=== PATIENT | female | born 1935 | race Caucasian/White ===

== ENCOUNTER 2018-12-29 15:16 | Inpatient (IN) ==
[2018-12-29] MEDS ORDERED: SODIUM CHLORIDE 0.9% 1000ML 1,000 ML IV STA (16:01)
[2018-12-29 16:09] LABS: Basophils # (auto) 0.02 K/uL (0-0.2); Basophils % (auto) 0.3 %; Eosinophils # (auto) 0.08 K/uL (0-0.5); Eosinophils % (auto) 1.1 %; Hematocrit (blood only) 35.5 % (37-47); Hemoglobin 11.9 g/dL (12.0-16.0); Immature Granulocytes # (auto) 0.02 K/uL (0.00-0.02); Immature Granulocytes % (auto) 0.3 %; Lymphocytes # (auto) 2.16 K/uL (1.2-3.4); Lymphocytes % (auto) 30.7 %; Mean Corpuscular Hemoglobin 30.2 pg (25-34); Mean Corpuscular Hgb Conc 33.5 g/dL (32-36); Mean Corpuscular Volume 90.1 fL (80-100); Monocytes # (auto) 0.69 K/uL (0.11-0.59); Monocytes % (auto) 9.8 %; Neutrophils # (auto) 4.07 K/uL (1.4-6.5); Neutrophils % (auto) 57.8 %; Platelet Count 303 K/uL (130-400); RDW Coefficient of Variation 13.3 % (11.5-14.5); RDW Standard Deviation 44.2 fL (36.4-46.3); Red Blood Count 3.94 M/uL (4.2-5.4); White Blood Count 7.04 K/uL (4.8-10.8)
[2018-12-29 16:20] LABS: Partial Thromboplastin Ratio 0.9; Partial Thromboplastin Time 25.1 Seconds (21.0-31.0); Prothrombin Time 10.3 Seconds (9.0-12.0)
[2018-12-29 16:28] LABS: Alanine Aminotransferase 33 U/L (12-78); Albumin Level 3.6 gm/dl (3.4-5.0); Aspartate Aminotransferase 19 U/L (15-37); Blood Urea Nitrogen 33 mg/dl (7-18); Calcium 9.3 mg/dl (8.5-10.1); Carbon Dioxide 22 mmol/L (21-32); Chloride 107 mmol/L (98-107); Creatinine Clr Calc Pharmacy 29.8 ml/min; Est GFR (African American) 43.2; Est GFR (Non-African American) 37.3; Glucose 134 mg/dl (70-99); Magnesium 1.6 mg/dl (1.8-2.4); Potassium 4.5 mmol/L (3.5-5.1); Sodium 138 mmol/L (136-145)
[2018-12-29 16:38] LABS: Albumin Globulin Ratio 0.8 (0.9-2); Alkaline Phosphatase 73 U/L (45-117); Bilirubin,Total 0.4 mg/dl (0.2-1); Globulin 4.3 gm/dl (2.5-4.0); Total Protein 7.9 gm/dl (6.4-8.2); Troponin I < 0.015 ng/ml (0-0.045)
[2018-12-29] MEDS ORDERED: MAGNESIUM SULFATE / D5W 1 GM/100 ML BAG IV ONE (18:00)
[2018-12-29] MEDS ORDERED: HEPARIN SOD (PORCINE) 1000 UNIT/ML 10 ML VIAL ONE (18:58)
[2018-12-29] MEDS: HEPARIN SODIUM/DEXTROSE 25,000 UNITS/500 ML BAG IV SCH (19:14)
[2018-12-29] MEDS ORDERED: METOPROLOL TARTRATE 1 MG/ML VIAL IV STA (19:47)
--- NOTE | 2018-12-29 20:40 | History & Physical Report ---
Date of Service December 29, 2018 Assessment & Plan (1) Atrial fibrillation: Patient with history of atrial fibrillation 8 years ago Has been on Toprol-XL and is managed by the [facility] cardiology office in [facility] Presented with dizziness to weekend clinic and referred to the ED for evaluation treatment EKG with atrial fibrillation with rapid ventricular response Patient treated with fluid bolus and 5 mg IV metoprolol Heparin drip started Cardiology consulted Dr. Jensen contacted and will see the patient in the morning for further work-up Echocardiogram is ordered for tomorrow morning (routine) Troponin is negative TSH is 3.1 (2) Hypertension: Patient is on multiple agents at home including Toprol-XL and lisinopril Will continue outpatient medications Lopressor IV as needed Echocardiogram in the morning (3) Diabetes mellitus type 2 in obese: Patient treated as an outpatient with metformin and glipizide We will continue these oral medications at this time BSG's ACHS Sliding scale insulin with NovoLog (4) Hyperlipidemia: Continue atorvastatin (5) DVT prophylaxis: Heparin drip Ambulate as tolerated AD[facility]ANA [facility]ctor [facility] Please refer to Dr. Loja's addendum for further recommendations History of Present Illness Attending: Dr. Loja This is an 83-year-old female with past medical history including hypertension, hyperlipidemia, atrial fibrillation, diabetes mellitus. The patient awoke this morning and had some dizziness. She reports that this is been intermittent for the last 2 to 3 days. Her son took her to see Dr. Yeboah in the outpatient clinic where she was found on EKG to be in atrial fibrillation with rapid ventricular rate in the 120s to 140s. The patient was referred to the emergency department by Dr. Yeboah and upon arrival was found to be in atrial fibrillation with a rate in the 120s. The patient's magnesium was 1.6 and this was repleted with 1 g of magnesium sulfate. The patient was given a fluid bolus and started on a heparin drip. At the time of my evaluation, the patient was in atrial fibrillation on telemetry with a rate in the low 100s. She was given 5 mg of metoprolol tartrate IV and is currently with a blood pressure of 141/58 with a heart rate of 81. The patient follows with [facility] cardiology with Cameron Becerra PA-C. Dr. Jensen was contacted by phone from the emergency room physician and will see the patient in the morning. The patient denies any awareness of tachyarrhythmia or arrhythmia. Aside from dizziness she has no other symptoms. She denies any chest pain or tightness. She has no back pain. She has no acute change in vision. She has no headache. She has no focal deficits on examination. She denies any evidence of TIA or stroke and further denies history of same. The patient has no recent illness and states that she has been in her usual health. She has no other acute complaints. Primary Care Provider: Jermaine Jermaine Allergies Allergy/AdvReac Type Severity Reaction Status Date / Time tramadol Allergy Severe UNCLEAR Unverified 12/29/18 17:30 Aminoglycosides Allergy Mild Verified 01/08/11 21:27 bacitracin Allergy Mild Verified 01/08/11 21:27 neomycin Allergy Mild Verified 01/08/11 21:27 polymyxin B Allergy Mild Verified 01/08/11 21:27 Sulfa (Sulfonamide AdvReac Mild NAUSEA, Verified 01/08/11 21:27 Antibiotics) VOMITING, BAD HEADACHE Home Medications Home Medications Medication Instructions Recorded Confirmed Type aspirin [Aspir-81] 81 mg PO DAILY 12/29/18 12/29/18 History atorvastatin [Lipitor] 20 mg PO PM 12/29/18 12/29/18 History cholecalciferol (vitamin D3) 1,000 unit PO DAILY 12/29/18 12/29/18 History [Vitamin D3] cyanocobalamin (vitamin B-12) 1,000 mcg PO DAILY 12/29/18 12/29/18 History [Vitamin B-12] glipizide [Glucotrol XL] 2.5 mg PO DAILY 12/29/18 12/29/18 History iron,carbonyl-vitamin C [Vitron-C] 1 tab PO DAILY 12/29/18 12/29/18 History lisinopril [Prinivil] 10 mg PO DAILY 12/29/18 12/29/18 History lorazepam [Ativan] 0.5 mg PO HS 12/29/18 12/29/18 History metformin [Glucophage] 500 mg PO BID 12/29/18 12/29/18 History metoprolol succinate [Toprol XL] 100 mg PO DAILY 12/29/18 12/29/18 History polyethylene glycol 3350 [Miralax] 17 g PO DAILY PRN 12/29/18 12/29/18 History triamcinolone acetonide [Triderm] 1 applic TOPICAL BID 12/29/18 12/29/18 History Past Med/Surg History Medical History Atrial fibrillation Diabetes mellitus type 2 in obese History of breast cancer Hyperlipidemia Hypertension Surgical History Bilateral cataracts Family History Other No significant family history Social History Preferred Language: Swedish Communication Ability: Effective Completions Engineer Required: No Beliefs That Will Affect Care: None Current Living Situation: Alone current occupational status: retired Feels Safe at Home: Yes Safety Concerns: Feels Safe At This Time Smoking Status: Never smoker Hx Alcohol Use: Yes Hx Substance Use: No Review of Systems Review of Systems: All systems reviewed & are unremarkable except as noted in HPI & below Physical Exam Physical Exam: GENERAL : No acute distress EYES: No icterus, gaze conjugate NOSE: No evidence of epistaxis MOUTH: No lesions or candidiasis. Tongue is midline. Upper dentures in place. Bridge on the lowers. NECK: Supple. No appreciation carotid bruits LUNGS: CTA B/L, no wheezes, rales or rhonchi. HEART: Irregular, irregular. Rate in the low 100s ABDOMEN: Soft, NT, ND, BS Present EXTREMITIES: No LE edema, pedal pulses intact and equal bilaterally NEURO: A&OX3. No facial droop. Tongue midline. No pronator drift. Toes are downgoing bilaterally. No appreciation of any focal deficits. Results & Data Vital Signs (Past 12 Hours) Vital Signs Temp Pulse Resp BP Pulse Ox 12/29/18 20:01 81 18 141/58 H 98 12/29/18 19:51 90 169/66 H 12/29/18 19:44 92 H 30 H 169/66 H 95 12/29/18 19:31 98 H 22 183/81 H 98 12/29/18 19:30 94 H 18 167/74 H 98 12/29/18 18:33 95 H 14 166/89 H 98 12/29/18 18:01 80 20 167/90 H 98 12/29/18 17:31 89 20 179/72 H 97 12/29/18 17:01 86 21 157/114 H 98 12/29/18 16:31 83 19 142/74 H 96 12/29/18 16:01 93 H 20 138/85 98 12/29/18 15:55 95 H 19 134/84 98 12/29/18 15:47 98 12/29/18 15:28 36.7 C 112 H 20 132/77 97 Laboratory Results 12/29/18 16:01 12/29/18 16:01 Magnesium: 1.6 ECG Indication: tachycardia and other (Dizziness) Rhythm: atrial fibrillation Code Status & VTE Plan Code Status Full resuscitation VTE Prophylaxis Plan VTE Prophylaxis will be ordered: Yes Reason for no VTE mechanical prophylaxis: Treatment not indicated Supervising Physician Co-Signing Physician Notes HISTORY: Record reviewed. Patient interviewed and examined. Care coordinated with Heriberto Jordan PA-C. Please refer to his documentation for detailed history. Briefly, 83-year-old female with history of paroxysmal atrial fibrillation, hypertension, diabetes, and other problems. Seen in clinic today for evaluation of dizziness and found to be in atrial fibrillation with rapid ventricular response. Referred to the ED for further evaluation and management. No associated chest pain or shortness of breath. EXAM: General- no distress Lungs- clear to auscultation; no respiratory distress Cardiovascular- irregular; no murmur; no gallop; no JVD; no pretibial edema Abdomen- + bowel sounds, soft, nontender Extremities- no cyanosis; no calf tenderness Neuro- alert, oriented Skin- warm & dry DATA: Hemoglobin 11.9, white count 7040, platelet count 303,000. PT 10.3, INR 1.0. PTT 25. Sodium 138, potassium 4.5, chloride 107, CO2 22, BUN 33, creatinine 1.31, glucose 134. Magnesium 1.6. Other lab studies as noted. EKG performed at 1547 reviewed and demonstrated atrial fibrillation at 90/minute, baseline artifact, incomplete left bundle branch block. ASSESSMENT AND PLAN: Recurrent atrial fibrillation with rapid ventricular response. Rate controlled with metoprolol. GREGORIA(2)DS(2)-VASc = 5. Initiate anticoagulation with IV heparin pending decision re: long-term anticoagulation. Correct hypomagnesemia. Check echo. Consult Cardiology. Please refer to JAMA Jordan's documentation for discussion of other issues.
[2018-12-29] MEDS ORDERED: GLUCOSE 10 TABS/TUBE PO PRN (20:56)
[2018-12-29] MEDS ORDERED: ACETAMINOPHEN 325 MG TAB PO PRN (20:56)
[2018-12-29] MEDS ORDERED: MAGNESIUM HYDROXIDE SUSP 30 ML UDC PO PRN (20:56)
[2018-12-29] MEDS ORDERED: GLUCOSE 40% GEL 15 GM TUBE PO PRN (20:56)
[2018-12-29] MEDS ORDERED: DEXTROSE 50% 50 ML SYRINGE IV PRN (20:56)
[2018-12-29] MEDS ORDERED: ALUMINUM/MAGNESIUM SUSP 30 ML UDC PO PRN (20:56)
[2018-12-29] MEDS ORDERED: CARBOHYDRATES FOR HYPOGLYCEMIA PO PRN (20:56)
[2018-12-29] MEDS ORDERED: ONDANSETRON INJ 2 MG/ML 2 ML VIAL IV PRN (20:56)
[2018-12-29] MEDS ORDERED: GLUCAGON FOR INJ 1 MG VIAL SQ PRN (20:56)
[2018-12-29] MEDS ORDERED: METOPROLOL TARTRATE 1 MG/ML VIAL IV PRN (20:56)
[2018-12-29] MEDS: INSULIN ASPART 100 UNITS/ML 3 ML PEN SC SCH (21:59)
[2018-12-29] MEDS: SODIUM CHLORIDE 0.9% 1000ML 1,000 ML IV SCH (21:59)
[2018-12-29] MEDS: LORazepam 0.5 MG TAB PO SCH (22:21)
[2018-12-29] MEDS: ATORVASTATIN 20 MG TAB PO SCH (22:22)
--- NOTE | 2018-12-29 23:41 | Emergency Department Note ---
Entered by Carlos Alberto Vega acting as a scribe for ED Provider Note CHIEF COMPLAINT: Palpitations HISTORY OF PRESENT ILLNESS: The patient is a 83 year old female who presents to the Emergency Room with complaints of chest palpitations. The patient reports feeling dizzy for the last two days and was seen at [facility]. The patient was referred from [facility] due to a new onset atrial flutter that was read on a new EKG taken earlier in the day prior to arrival. The patient notes that upon arrival she felt better. The patient notes that she is not currently on any blood thinners. The patient reports that an episode of a-fib happened 8 years ago and was medication related. The patient states that she has not eaten since this morning. The patient reports that she receives knee injections. Pt denies LOC, headache, fevers, chills, diaphoresis, visual changes, neck pain, chest pain, breathing difficulties, nausea, vomiting, abdominal pain, back pain, melena, hematochezia, urinary symptoms, numbness, weakness, lymphadenopathy, rash, or other complaints. REVIEW OF SYSTEMS: See HPI for pertinent positives and negatives. A total of ten systems were reviewed and were otherwise negative. PMHx/PSHx: A-Fib SOCIAL HISTORY: Patient lives at home. PHYSICAL EXAM: GENERAL: Awake, alert, well-appearing, in no distress HENT: Normocephalic, atraumatic. Oropharynx unremarkable. EYES: PERRL. Normal conjunctiva. Sclera non-icteric. NECK: Inspection normal. Non-tender. Supple. No nuchal rigidity. FROM. No masses. RESPIRATORY: Clear to auscultation. No wheezes. No rales. Normal respiratory effort. CARDIAC: Normal rate. Irregular rhythm. No murmurs. No rubs. Extremities warm and well perfused. Pulses equal. No JVD. GI: Soft, non-distended. No tenderness to palpation. No rebound or guarding. No masses. RECTAL: Deferred. MUSCULOSKELETAL: Atraumatic. Chest examination reveals no tenderness. The back is symmetrical on inspection without obvious abnormality. There is no CVA tenderness to palpation. No joint edema. LOWER EXTREMITIES: Calves are equal size bilaterally and non-tender. No edema. No discoloration. NEURO: Normal sensorium. No sensory or motor deficits noted. SKIN: No rash or jaundice noted. EMERGENCY DEPARTMENT COURSE: 1601: Past medical records reviewed. The patient was evaluated in room A03, and a complete history and physical examination were performed. 181: The patient was reevaluated and feels well. Dr. Jensen was consulted and stated that given the patient's age and symptoms she will be admitted. 183: Discussed the patient's case with LINETTE Mitchell. The patient will be admitted under Dr. Loja [facility] [place], for further management. MEDICAL DECISION MAKING: A3 Prior records/ancillary studies reviewed. Patient had an A. fib/paroxysmal SVT episode and was seen by cardiology in 2007. Triage Nursing notes reviewed and agree them. Additional history obtained from the family. The patient's history was concerning for palpitations. Differential diagnosis: Etiologies such as electrolyte abnormality, cardiac dysrhythmia, thyroid dysfunction, pulmonary embolism, infection, gastrointestinal, as well as others were entertained. Physical examination: Benign as above. ER treatment provided: Cardiac monitoring. Heparin drip On reassessment the patient felt well. Diagnostic interpretation by me: The electrocardiogram was consistent with A. fib. No ischemia. A. fib did replace sinus rhythm. The labs revealed an unremarkable CBC and chemistry panel except for mild hypomagnesemia. The patient's troponin is within normal limits. Coags normal. Imaging studies: Chest x-ray as below. Consultation: A consultation was placed with the [facility] fire manager on-call, Dr. Lg Umana. The case was discussed and diagnostics were reviewed. He recommended the patient be admitted to the hospital and started on IV heparin for cardiology consultation. I discussed this with the patient and she was in agreement. Family was in agreement. A consultation was placed with the hospitalist. The case was discussed and diagnostics were reviewed. The patient was evaluated in the ER for further treatment. IMPRESSION: Atrial fibrillation, palpitations, dizziness. PLAN: Admitted The scribe's documentation has been prepared under my direction and personally reviewed by me in its entirety. I confirm that the note above accurately reflects all work, treatment, procedures, and medical decision making performed by me. Impression & Plan Atrial fibrillation Past Med/Surg History Medical History Atrial fibrillation (Acute) Diabetes mellitus type 2 in obese History of breast cancer Hyperlipidemia Hypertension Surgical History Bilateral cataracts Family History Other No significant family history Social History Preferred Language: Armenian Communication Ability: Effective Culinary Chef Required: No Beliefs That Will Affect Care: None Current Living Situation: Alone current occupational status: retired Feels Safe at Home: Yes Safety Concerns: Feels Safe At This Time Smoking Status: Never smoker Hx Alcohol Use: Yes Hx Substance Use: No Results & Data Vital Signs Vital Signs - 24 hr 12/29/18 15:28 12/29/18 15:47 12/29/18 15:55 Temperature 36.7 C Temperature Source Oral Sepsis Recent Fever Within 48 Hours No Sepsis Action Taken by Nursing No Action Required Pulse Rate 112 H 95 H Pulse Rate from SpO2 Sensor 94 H Respiratory Rate 20 19 Respiratory Effort / Characteristics Non-Labored Respiratory Depth Normal Blood Pressure 132/77 134/84 Blood Pressure Mean 95 100 Blood Pressure Position Sitting Pulse Oximetry 97 98 98 Oxygen Delivery Method Room Air Room Air Room Air 12/29/18 16:01 12/29/18 16:31 12/29/18 17:01 Temperature Temperature Source Sepsis Recent Fever Within 48 Hours Sepsis Action Taken by Nursing Pulse Rate 93 H 83 86 Pulse Rate from SpO2 Sensor 91 H 90 90 Respiratory Rate 20 19 21 Respiratory Effort / Characteristics Non-Labored Respiratory Depth Normal Blood Pressure 138/85 142/74 H 157/114 H Blood Pressure Mean 102 96 128 Blood Pressure Position Pulse Oximetry 98 96 98 Oxygen Delivery Method Room Air Room Air Room Air 12/29/18 17:31 12/29/18 18:01 12/29/18 18:33 Temperature Temperature Source Sepsis Recent Fever Within 48 Hours Sepsis Action Taken by Nursing Pulse Rate 89 80 95 H Pulse Rate from SpO2 Sensor 82 82 97 H Respiratory Rate 20 20 14 Respiratory Effort / Characteristics Respiratory Depth Blood Pressure 179/72 H 167/90 H 166/89 H Blood Pressure Mean 107 115 114 Blood Pressure Position Pulse Oximetry 97 98 98 Oxygen Delivery Method Room Air Room Air Room Air 12/29/18 19:30 12/29/18 19:31 12/29/18 19:44 Temperature Temperature Source Sepsis Recent Fever Within 48 Hours Sepsis Action Taken by Nursing Pulse Rate 94 H 98 H 92 H Pulse Rate from SpO2 Sensor 100 H 98 H 98 H Respiratory Rate 18 22 30 H Respiratory Effort / Characteristics Respiratory Depth Blood Pressure 167/74 H 183/81 H 169/66 H Blood Pressure Mean 105 115 100 Blood Pressure Position Pulse Oximetry 98 98 95 Oxygen Delivery Method 12/29/18 19:51 Temperature Temperature Source Sepsis Recent Fever Within 48 Hours Sepsis Action Taken by Nursing Pulse Rate 90 Pulse Rate from SpO2 Sensor Respiratory Rate Respiratory Effort / Characteristics Respiratory Depth Blood Pressure 169/66 H Blood Pressure Mean Blood Pressure Position Pulse Oximetry Oxygen Delivery Method Home Medications Current Medication List: was personally reviewed by me Laboratory Data Attestation: I reviewed the patient's lab results. Result diagrams: 12/29/18 16:01 12/29/18 16:01 Lab Results 12/29/18 12/29/18 12/29/18 Range/Units 16:01 16:01 16:01 WBC 7.04 (4.8-10.8) K/uL RBC 3.94 L (4.2-5.4) M/uL Hgb 11.9 L (12.0-16.0) g/dL Hct 35.5 L (37-47) % MCV 90.1 (80-100) fL MCH 30.2 (25-34) pg MCHC 33.5 (32-36) g/dL RDW Std Deviation 44.2 (36.4-46.3) fL RDW Coeff of Jareth 13.3 (11.5-14.5) % Plt Count 303 (130-400) K/uL MPV 9.0 (7.4-10.4) fL Immature Gran % (Auto) 0.3 % Neut % (Auto) 57.8 % Lymph % (Auto) 30.7 % Hettinger % (Auto) 9.8 % Eos % (Auto) 1.1 % Baso % (Auto) 0.3 % Immature Gran # (Auto) 0.02 (0.00-0.02) K/uL Neut # (Auto) 4.07 (1.4-6.5) K/uL Lymph # (Auto) 2.16 (1.2-3.4) K/uL Hettinger # (Auto) 0.69 H (0.11-0.59) K/uL Eos # (Auto) 0.08 (0-0.5) K/uL Baso # (Auto) 0.02 (0-0.2) K/uL PT 10.3 (9.0-12.0) Seconds INR 1.0 (0.9-1.1) APTT 25.1 (21.0-31.0) Seconds PTT Ratio 0.9 Sodium 138 (136-145) mmol/L Potassium 4.5 (3.5-5.1) mmol/L Chloride 107 (98-107) mmol/L Carbon Dioxide 22 (21-32) mmol/L Anion Gap 9.0 (3-11) BUN 33 H (7-18) mg/dl Creatinine 1.31 H (0.6-1.2) mg/dl Est Cr Clr Drug Dosing 29.8 ml/min Est GFR ( Amer) 43.2 Est GFR (Non-Af Amer) 37.3 BUN/Creatinine Ratio 25.0 H (10-20) Glucose 134 H (70-99) mg/dl Calcium 9.3 (8.5-10.1) mg/dl Magnesium 1.6 L (1.8-2.4) mg/dl Total Bilirubin 0.4 (0.2-1) mg/dl AST 19 (15-37) U/L ALT 33 (12-78) U/L Alkaline Phosphatase 73 (45-117) U/L Troponin I < 0.015 (0-0.045) ng/ml Total Protein 7.9 (6.4-8.2) gm/dl Albumin 3.6 (3.4-5.0) gm/dl Globulin 4.3 H (2.5-4.0) gm/dl Albumin/Globulin Ratio 0.8 L (0.9-2) TSH 3.100 (0.300-4.500) uIu/ml Administered Medications Atorvastatin Calcium (Lipitor) 20 mg PO PM [facility] Stop: 01/28/19 20:59 Last Admin: 12/29/18 22:22 Dose: 20 mg Documented by: [id number] Heparin Sodium/Dextrose (Heparin Sodium/Dextrose) 25,000 units in 500 mls @ 21 mls/hr IV .[id number] [facility]; Protocol Stop: 01/28/19 18:14 Last Admin: 12/29/18 19:14 Dose: 1,050 units/hr, 21 mls/hr Documented by: [id number] Cosigned by: [id number] Sodium Chloride (Nss 1000ml) 1,000 mls @ 80 mls/hr IV .[id number] [facility] Stop: 01/28/19 20:55 Last Admin: 12/29/18 21:59 Dose: 80 mls/hr Documented by: [id number] Insulin Aspart (Novolog Flexpen) 0 units SC ACHS [facility] Stop: 01/28/19 20:59 Last Admin: 12/29/18 21:59 Dose: Not Given Documented by: [id number] Cosigned by: [id number] Lorazepam (Ativan) 0.5 mg PO HS [facility] Stop: 01/28/19 20:59 Last Admin: 12/29/18 22:21 Dose: 0.5 mg Documented by: [id number] Discontinued Medications Heparin Sodium (Porcine) (Heparin Iv Bolus) Confirm Administered Dose 10,000 units .ROUTE .STK-MED ONE Stop: 12/29/18 18:59 Last Admin: 12/29/18 19:13 Dose: 5,000 units Documented by: [id number] Cosigned by: [id number] Heparin Sodium/Dextrose () 1 ea N/A NOW ; Protocol Stop: 12/29/18 18:15 Last Admin: 12/29/18 19:14 Dose: Not Given Documented by: [id number] Sodium Chloride (Nss 1000ml) 1,000 mls @ 125 mls/hr IV .Q8H [facility] Stop: 12/30/18 00:00 Last Admin: 12/29/18 16:50 Dose: 125 mls/hr Documented by: [id number] Magnesium Sulfate/Dextrose (Magnesium Sulfate / D5w) 1 gm in 100 mls @ 100 mls/hr IV ONE ONE Stop: 12/29/18 18:59 Last Infusion: 12/29/18 21:15 Dose: 0 mls/hr Documented by: [id number] Admin: 12/29/18 19:04 Dose: 100 mls/hr Documented by: [id number] Metoprolol Tartrate (Lopressor) 5 mg IV NOW Stop: 12/29/18 19:48 Last Admin: 12/29/18 19:51 Dose: 5 mg Documented by: [id number] ECG Data Indication: other (atrial fibrilation ) Rate (beats per minute): 90 Rhythm: atrial fibrillation Findings: + other (normal QRS); no PVC, no ST depression and no ST elevation Comparison ECG Date: from (08/18/10) Change: the following changes noted (A fibrillation replaced sinus rhythm ) Blood Pressure Blood Pressure Findings: Elevated blood pressure Blood Pressure Disposition: further management by hospitalist Discharge Plan Visit Data *Final* Discharge Date/Time: 12/29/18 20:26 Chief Complaint: Arrhythmia/Palpitations Stated Complaint: PALPITATIONS ED Provider: Morris Benito Discharge Problem: Atrial fibrillation Patient Disposition: Admitted As Inpatient Discharge Instructions Interventions: ED Discharge Assessment Last Done: 12/29/18 20:26 The scribe's documentation has been prepared under my direction and personally reviewed by me in its entirety. I confirm that the note above accurately reflects all work, treatment, procedures, and medical decision making performed by me.
[2018-12-30] MEDS: ZOLPIDEM TARTRATE 5 MG TAB PO SCH (00:06)
[2018-12-30 01:36] LABS: Partial Thromboplastin Ratio 2.2
[2018-12-30 01:38] LABS: Partial Thromboplastin Time 60.4 Seconds (21.0-31.0)
[2018-12-30] MEDS: glipiZIDE ER 2.5 MG TABCR PO SCH (07:11)
[2018-12-30 07:26] LABS: Basophils # (auto) 0.02 K/uL (0-0.2); Basophils % (auto) 0.4 %; Eosinophils # (auto) 0.19 K/uL (0-0.5); Eosinophils % (auto) 3.4 %; Hematocrit (blood only) 32.7 % (37-47); Hemoglobin 10.7 g/dL (12.0-16.0); Immature Granulocytes # (auto) 0.02 K/uL (0.00-0.02); Immature Granulocytes % (auto) 0.4 %; Lymphocytes # (auto) 2.41 K/uL (1.2-3.4); Lymphocytes % (auto) 43.7 %; Mean Corpuscular Hemoglobin 29.6 pg (25-34); Mean Corpuscular Hgb Conc 32.7 g/dL (32-36); Mean Corpuscular Volume 90.6 fL (80-100); Mean Platelet Volume 9.4 fL (7.4-10.4); Monocytes # (auto) 0.51 K/uL (0.11-0.59); Monocytes % (auto) 9.2 %; Neutrophils # (auto) 2.37 K/uL (1.4-6.5); Neutrophils % (auto) 42.9 %; Platelet Count 264 K/uL (130-400); RDW Coefficient of Variation 13.3 % (11.5-14.5); RDW Standard Deviation 44.1 fL (36.4-46.3); Red Blood Count 3.61 M/uL (4.2-5.4); White Blood Count 5.52 K/uL (4.8-10.8)
--- NOTE | 2018-12-30 07:26 | Ultrasound Report ---
BILATERAL CAROTID DOPPLER STUDY HISTORY: Bruits heard by PCP, dizziness COMPARISON: Neck CTA 01/08/2008. TECHNIQUE: Real-time, grayscale, and color Doppler sonography of the carotid arteries was performed. Imaging reviewed in the transverse and longitudinal planes. All measurements were calculated based on NASCET criteria. FINDINGS: Antegrade flow is seen in the bilateral vertebral arteries. The brachial pressures are hemodynamically similar. The right common carotid artery is patent. There is dense calcified plaque within the visualized righ t internal carotid artery. This is similar to the prior ultrasound. No flow is identified which is si milar to the prior ultrasound, however, this was demonstrated to be approximately 25% narrowing on th e 01/08/2008 neck CTA. The peak systolic velocity within the left ICA is 81 cm/s. The left systolic r atio is 0.95. IMPRESSION: 1. No hemodynamically significant stenosis seen within the left carotid arteries. 2. There is dense calcified plaque within the visualized right internal carotid artery. No flow is id entified which is similar to the prior ultrasound, however, this was demonstrated to be approximately 25% narrowing on the 01/08/2008 neck CTA rather than complete occlusion. Electronically signed by: Rian Torres M.D. 12/30/2018 7:25 AM
[2018-12-30] MEDS: ASPIRIN 81 MG ECTAB PO SCH (07:54)
[2018-12-30] MEDS: CHOLECALCIFEROL 1,000 UNITS TAB PO SCH (07:54)
[2018-12-30] MEDS: lisinopriL 10 MG TAB PO SCH (07:54)
[2018-12-30] MEDS: CYANOCOBALAMIN 500 MCG TABLET (VITAMIN B-12) PO SCH (07:55)
[2018-12-30] MEDS: ASCORBIC ACID 500 MG TAB PO SCH (07:55)
[2018-12-30] MEDS ORDERED: METFORMIN HCL 500 MG TAB PO SCH (08:00)
[2018-12-30] MEDS ORDERED: Nursing to Pharmacy Communication ONE (08:00)
[2018-12-30 08:02] LABS: BUN Creatinine Ratio 24.3 (10-20); Calcium 8.6 mg/dl (8.5-10.1); Creatinine Clr Calc Pharmacy 37.7 ml/min; Est GFR (African American) 57.8; Est GFR (Non-African American) 49.9; Magnesium 1.8 mg/dl (1.8-2.4)
[2018-12-30] MEDS: INSULIN ASPART 100 UNITS/ML 3 ML PEN SC SCH ×4 (08:05→21:50)
[2018-12-30] MEDS: MAGNESIUM OXIDE 400 MG TAB PO SCH ×2 (08:32→20:29)
[2018-12-30] MEDS ORDERED: METOPROLOL SUCC 50MG EXT REL TAB PO SCH (09:00)
--- NOTE | 2018-12-30 09:49 | Hospitalist Progress Note ---
Date of Service December 30, 2018 Assessment & Plan (1) Atrial fibrillation: (2) Hypertension: (3) Diabetes mellitus type 2 in obese: (4) Hyperlipidemia: (5) DVT prophylaxis: Continue Metoprolol, Increase to 75 mg Q12 Cardio on case Heparin gtt Labs checked ROS-No Headache, No Visual Changes, No Nausea, No Vomiting, No Fever, No Chills, No Neck Pain or Stiffness, No Chest Pain, No Palpitations, No SOB, No CLEARY, No Cough, No Sputum, No Wheezing, No Abdominal Pain, No Diarrhea, No Hematemesis, No Hemoptysis, No Unexpected Weight Loss, No Flank pain, No Melena, No Hematochezia, No Frequency, No Urgency, No Burning, No Hematuria, No Rashes, No Diaphoresis. Appetite is Normal Physical Exam Gen-AAO x 3, NAD, Afebrile Head-NCAT, EOMI, PERRLA, Anicteric Sclera, No Posterior Pharyngeal Erythema Neck-Supple, No JVD, No Thyromegaly, No Masses, No LAD, No Bruits Lungs-Clear to Auscultation Bilaterally, No Rales, No Rhonchi, No Wheezing, No Crepitus Chest-Irreg/Irreg No S4, +S1, +S2, No S3, No Murmurs, No Rubs, No Gallops Abdomen-Soft, Bowel Sounds Present, Non Tender, Non Distended, No Hepatomegaly, No Splenomegaly, No Palpable Masses, No Rebound, No Rigidity, No Guarding Musculoskeletal-Full Range of Motion Bilaterally, No CVAT Extremities-No Cyanosis, No Clubbing, No Edema Nuero-Cranial Nerves II-XII grossly intact, Motor WNL, DTRs WNL, Strength WNL, Non Focal Psych-Normal Mood Results & Data Vital Signs (Past 12 Hours) Vital Signs Temp Pulse Resp BP Pulse Ox 12/30/18 07:31 36.5 C 98 H 22 160/75 H 96 12/30/18 03:54 36.7 C 84 19 129/74 96
[2018-12-30] MEDS: SODIUM CHLORIDE 0.9% 1000ML 1,000 ML IV SCH (11:06)
--- NOTE | 2018-12-30 13:40 | Cardiology Consultation ---
Date of Consultation December 30, 2018 Assessment & Plan (1) Atrial fibrillation: Patient presents with newly diagnosed atrial fibrillation. Her ventricular rate is likely well controlled due to her chronic previous treatment with metoprolol succinate 100 mg daily. Blood pressure stable without being higher level. She notes that at present her dizziness is resolved, however for the most part she has been in bed or has been at the bedside chair. Her [id number] score is score is 4 for risk factors of age >75(2 points), female, HTN. Although she presented with dizziness, her BP is stable and she has not had any falls. She does have a chronic stable mild anemia, Hbg 10.7 g/dl. At this time I recommend continuation of heparin for stroke prophylaxis, and will add warfarin. Believe will be ideal medication for her as she follows with [facility] and I anticipate a DOAC agent would be too expensive. History of Present Illness Attending Physician: Bharathi Edwards DO History of Present Illness Cristine Benitez is an 83 year old female seen in cardiology consultation per the request of Lisa Jordan PA-C and [facility] of subjective complaint of dizziness and findings of atrial fibrillation with conrolled ventricular rate. She is accompanied at the beside by her daughter, Jacqueline. The patient was most recently seen in outpatient cardiology follow up by Cameron Becerra PA-C on 10/09/18. At that time stable cardiac signs and symptoms were noted. She has a history of paroxysmal supraventricular tachycardia dating back to 2007. She is also been observed to have occasional PVCs and nonsustained ventricular tachycardia. She has been on beta-tam therapy for years with atenolol therapy noted in her electronic record in 2002. She has been on metoprolol succinate 100 mg daily since 2007. She presented to primary care, weekend clinic agrees with yesterday complaining of on and off again dizziness for 1 month. She had concerns that her blood pressure had been high at home however when her blood pressure was taken in the clinic, it was normal at 116/63. She was however found to be tachycardic and EKG performed 12/29/2018 at 1439 as an outpatient revealed atrial fibrillation at 95 bpm with diffuse nonspecific T wave flattening. Repeat EKG performed this morning reveals ongoing atrial fibrillation at 93 bpm. She is currently comfortable. Unfractioned heparin infusion was started and she is tolerated this well thus far. Recent blood pressure reading was stable at 130/82 mm Hg. Allergies Allergy/AdvReac Type Severity Reaction Status Date / Time tramadol Allergy Severe UNCLEAR Unverified 12/29/18 17:30 Aminoglycosides Allergy Mild Verified 01/08/11 21:27 bacitracin Allergy Mild Verified 01/08/11 21:27 neomycin Allergy Mild Verified 01/08/11 21:27 polymyxin B Allergy Mild Verified 01/08/11 21:27 Sulfa (Sulfonamide AdvReac Mild NAUSEA, Verified 01/08/11 21:27 Antibiotics) VOMITING, BAD HEADACHE Home Medications Home Medications Medication Instructions Recorded Confirmed Type aspirin [Aspir-81] 81 mg PO DAILY 12/29/18 12/29/18 History atorvastatin [Lipitor] 20 mg PO PM 12/29/18 12/29/18 History cholecalciferol (vitamin D3) 1,000 unit PO DAILY 12/29/18 12/29/18 History [Vitamin D3] cyanocobalamin (vitamin B-12) 1,000 mcg PO DAILY 12/29/18 12/29/18 History [Vitamin B-12] glipizide [Glucotrol XL] 2.5 mg PO DAILY 12/29/18 12/29/18 History iron,carbonyl-vitamin C [Vitron-C] 1 tab PO DAILY 12/29/18 12/29/18 History lisinopril [Prinivil] 10 mg PO DAILY 12/29/18 12/29/18 History lorazepam [Ativan] 0.5 mg PO HS 12/29/18 12/29/18 History metformin [Glucophage] 500 mg PO BID 12/29/18 12/29/18 History metoprolol succinate [Toprol XL] 100 mg PO DAILY 12/29/18 12/29/18 History polyethylene glycol 3350 [Miralax] 17 g PO DAILY PRN 12/29/18 12/29/18 History triamcinolone acetonide [Triderm] 1 applic TOPICAL BID 12/29/18 12/29/18 History Patient History Medical History Atrial fibrillation (Acute) Diabetes mellitus type 2 in obese History of breast cancer Hyperlipidemia Hypertension Surgical History Bilateral cataracts Family History Other No significant family history Social History Preferred Language: Persian Communication Ability: Effective Book Cutter Required: No Beliefs That Will Affect Care: None Current Living Situation: Alone current occupational status: retired Feels Safe at Home: Yes Safety Concerns: Feels Safe At This Time Smoking Status: Never smoker Hx Alcohol Use: Yes Hx Substance Use: No Review of Systems Review of Systems: All systems reviewed & are unremarkable except as noted in HPI & below Physical Exam Physical Exam: Temp Pulse Resp BP Pulse Ox 36.6 C 90 20 130/82 98 12/30/18 11:17 12/30/18 11:17 12/30/18 11:17 12/30/18 11:17 12/30/18 11:17 Constitutional: WD/WN, vitals as above Respiratory: normal respiratory effort, lungs clear to auscultation Cardiovascular: Rate/Rhythm: + irregularly irregular Heart Sounds: + murmur (I/ SM) Vessels: no JVD Extremities: no edema Gastrointestinal (Abdomen): normal bowel sounds, soft, nontender, no hepatosplenomegaly Neurologic: PERRL, EOMI, accommodation nl, no face palsy, no dysarthria Results & Data Vital Signs (Past 12 Hours) Vital Signs Temp Pulse Resp BP Pulse Ox 12/30/18 11:17 36.6 C 90 20 130/82 98 12/30/18 07:31 36.5 C 98 H 22 160/75 H 96 12/30/18 03:54 36.7 C 84 19 129/74 96 Laboratory Results Cardiac Enzymes 12/29/18 Range/Units 16:01 AST 19 (15-37) U/L Troponin I < 0.015 (0-0.045) ng/ml Coagulation 12/29/18 12/30/18 Range/Units 16:01 01:06 PT 10.3 (9.0-12.0) Seconds APTT 25.1 60.4 H* (21.0-31.0) Seconds CBC 12/29/18 12/30/18 Range/Units 16:01 06:38 WBC 7.04 5.52 (4.8-10.8) K/uL RBC 3.94 L 3.61 L (4.2-5.4) M/uL Hgb 11.9 L 10.7 L (12.0-16.0) g/dL Hct 35.5 L 32.7 L (37-47) % Plt Count 303 264 (130-400) K/uL Neut # (Auto) 4.07 2.37 (1.4-6.5) K/uL Lymph # (Auto) 2.16 2.41 (1.2-3.4) K/uL Burke # (Auto) 0.69 H 0.51 (0.11-0.59) K/uL Eos # (Auto) 0.08 0.19 (0-0.5) K/uL Baso # (Auto) 0.02 0.02 (0-0.2) K/uL Comprehensive Metabolic Panel 12/29/18 12/30/18 Range/Units 16:01 06:38 Sodium 138 140 (136-145) mmol/L Potassium 4.5 4.0 (3.5-5.1) mmol/L Chloride 107 110 H (98-107) mmol/L Carbon Dioxide 22 22 (21-32) mmol/L BUN 33 H 25 H (7-18) mg/dl Creatinine 1.31 H 1.03 (0.6-1.2) mg/dl Glucose 134 H 135 H (70-99) mg/dl Calcium 9.3 8.6 (8.5-10.1) mg/dl AST 19 (15-37) U/L ALT 33 (12-78) U/L Alkaline Phosphatase 73 (45-117) U/L Total Protein 7.9 (6.4-8.2) gm/dl Albumin 3.6 (3.4-5.0) gm/dl Intake and Output 12/29/18 12/30/18 12/30/18 22:59 06:59 14:59 Intake Total 100 / 1301.1 1201.1 / 1301.1 1105.7 / 1105.7 Output Total 200 / 200 200 / 200 Balance 100 / 1101.1 1001.1 / 1101.1 905.7 / 905.7 Intake: IV 100 / 1181.1 1081.1 / 1181.1 1105.7 / 1105.7 HEPARIN SODIUM/DEXTROSE 25,000 142.1 / 142.1 105.7 / 105.7 units In 500 ml @ 1,050 UNITS/ HR 21 mls/hr IV .[id number] [facility] Rx #:[id number] MAGNESIUM SULFATE / D5W 1 gm In 100 / 100 100 ml @ 100 mls/hr IV ONE ONE Rx#:[id number] Nss 1000ML 1,000 ml @ 80 mls/hr 939 / 939 1000 / 1000 IV .[id number] [facility] Rx#:[id number] Oral 120 / 120 Output: Urine 200 / 200 200 / 200 Other: # Unmeasured Voids 1 Weight 74.1 kg 75.1 kg Diagnostic Findings Echocardiogram performed this morning 12/30/2018: Mild concentric left ventricular hypertrophy is present The left ventricular wall motion is normal. Left ventricular systolic function is hyperdynamic, LVEF>70, moderate mitral regurgitation is present, left atrial enlargement is present. Medications Administered Current Inpatient Medications Acetaminophen (Tylenol) 650 mg PO Q4H PRN PRN Reason: Pain or Fever Stop: 01/28/19 20:55 Al Hydrox/Mg Hydrox/Simethicone (Maalox) 15 ml PO Q4H PRN PRN Reason: Dyspepsia Stop: 01/28/19 20:55 Ascorbic Acid (Vitamin C) 500 mg PO DAILY RAIZA Stop: 01/29/19 08:59 Last Admin: 12/30/18 07:55 Dose: 500 mg Documented by: Aspirin (Ecotrin Ectab) 81 mg PO DAILY RAIZA Stop: 01/29/19 08:59 Last Admin: 12/30/18 07:54 Dose: 81 mg Documented by: Atorvastatin Calcium (Lipitor) 20 mg PO PM [facility] Stop: 01/28/19 20:59 Last Admin: 12/29/18 22:22 Dose: 20 mg Documented by: Cyanocobalamin (Vitamin B-12) 1,000 mcg PO DAILY RAIZA Stop: 01/29/19 08:59 Last Admin: 12/30/18 07:55 Dose: 1,000 mcg Documented by: Dextrose (Dextrose 50%) 25 - 50 ml IV UD PRN; Protocol PRN Reason: Hypoglycemia Protocol Stop: 01/28/19 20:55 Glipizide (Glucotrol Extended Rel) 2.5 mg PO DAILYBB [facility] Stop: 01/29/19 06:29 Last Admin: 12/30/18 07:11 Dose: 2.5 mg Documented by: Glucagon (Glucagen) 1 mg SQ UD PRN; Protocol PRN Reason: Hypoglycemia Protocol Stop: 01/28/19 20:55 Glucose (Glucose 40%) 15 - 30 gm PO UD PRN; Protocol PRN Reason: Hypoglycemia Protocol Stop: 01/28/19 20:55 Glucose (Dex4 Glucose) 4 - 8 tabs PO UD PRN; Protocol PRN Reason: Hypoglycemia Protocol Stop: 01/28/19 20:55 Heparin Sodium/Dextrose (Heparin Sodium/Dextrose) 25,000 units in 500 mls @ 21 mls/hr IV .[id number] [facility]; Protocol Stop: 01/28/19 18:14 Last Titration: 12/30/18 07:02 Dose: 1,050 units/hr, 21 mls/hr Documented by: Sodium Chloride (Nss 1000ml) 1,000 mls @ 80 mls/hr IV .[id number] [facility] Stop: 01/28/19 20:55 Last Admin: 12/30/18 11:06 Dose: 80 mls/hr Documented by: Insulin Aspart (Novolog Flexpen) 0 units SC ACHS RAIZA Stop: 01/28/19 20:59 Last Admin: 12/30/18 12:48 Dose: 3 units Documented by: Lisinopril (Zestril) 10 mg PO DAILY [facility] Stop: 01/29/19 08:59 Last Admin: 12/30/18 07:54 Dose: 10 mg Documented by: Lorazepam (Ativan) 0.5 mg PO HS [facility] Stop: 01/28/19 20:59 Last Admin: 12/29/18 22:21 Dose: 0.5 mg Documented by: Magnesium Hydroxide (Milk Of Magnesia) 30 ml PO Q12H PRN PRN Reason: Constipation Stop: 01/28/19 20:55 Magnesium Oxide (Mag-Ox) 400 mg PO BID [facility] Stop: 01/29/19 08:59 Last Admin: 12/30/18 08:32 Dose: 400 mg Documented by: Metoprolol Succinate (Toprol Xl) 75 mg PO Q12H [facility] Stop: 01/29/19 20:59 Metoprolol Tartrate (Lopressor) 5 mg IV Q5M PRN PRN Reason: Tachycardia Stop: 01/28/19 20:55 Miscellaneous (Carbohydrates For Hypoglycemia) 15 - 30 gm PO UD PRN PRN Reason: Hypoglycemia Treatment Stop: 01/28/19 20:55 Ondansetron HCl (Zofran) 4 mg IV Q6H PRN PRN Reason: Nausea Stop: 01/28/19 20:55 Vitamin D (Vitamin D3) 1,000 units PO DAILY [facility] Stop: 01/29/19 08:59 Last Admin: 12/30/18 07:54 Dose: 1,000 units Documented by: Zolpidem Tartrate (Ambien) 5 mg PO HSZ [facility] Stop: 01/28/19 21:59 Last Admin: 12/30/18 00:06 Dose: 5 mg Documented by:
[2018-12-30] MEDS ORDERED: WARFARIN SOD 5 MG TAB PO SCH (16:00)
[2018-12-30] MEDS: HEPARIN SODIUM/DEXTROSE 25,000 UNITS/500 ML BAG IV SCH (18:26)
[2018-12-30] MEDS: METOPROLOL SUCC 25MG EXT REL TAB PO SCH (20:29)
[2018-12-30] MEDS: ATORVASTATIN 20 MG TAB PO SCH (20:30)
[2018-12-30] MEDS: LORazepam 0.5 MG TAB PO SCH (20:35)
[2018-12-31] MEDS: ZOLPIDEM TARTRATE 5 MG TAB PO SCH (02:08)
[2018-12-31] MEDS: glipiZIDE ER 2.5 MG TABCR PO SCH (07:28)
--- NOTE | 2018-12-31 07:30 | Discharge Summary ---
Date of Service December 31, 2018 Admission HPI Per Admitting Provider This is an 83-year-old female with past medical history including hypertension, hyperlipidemia, atrial fibrillation, diabetes mellitus. The patient awoke this morning and had some dizziness. She reports that this is been intermittent for the last 2 to 3 days. Her son took her to see Dr. Yeboah in the outpatient clinic where she was found on EKG to be in atrial fibrillation with rapid ventricular rate in the 120s to 140s. The patient was referred to the emergency department by Dr. Yeboah and upon arrival was found to be in atrial fibrillation with a rate in the 120s. The patient's magnesium was 1.6 and this was repleted with 1 g of magnesium sulfate. The patient was given a fluid bolus and started on a heparin drip. At the time of my evaluation, the patient was in atrial fibrillation on telem etry with a rate in the low 100s. She was given 5 mg of metoprolol tartrate IV and is currently with a blood pressure of 141/58 with a heart rate of 81. The patient follows with [facility] cardiology with Cameron Becerra PA-C. Dr. Jensen was contacted by phone from the emergency room physician and will see the patient in the morning. The patient denies any awareness of tachyarrhythmia or arrhythmia. Aside from dizziness she has no other symptoms. She denies any chest pain or tightness. She has no back pain. She has no acute change in vision. She has no headache. She has no focal deficits on examination. She denies any evidence of TIA or stroke and further denies history of same. The patient has no recent illness and states that she has been in her usual health. Admission Exam Per Admitting Provider GENERAL : No acute distress EYES: No icterus, gaze conjugate NOSE: No evidence of epistaxis MOUTH: No lesions or candidiasis. Tongue is midline. Upper dentures in place. Bridge on the lowers. NECK: Supple. No appreciation carotid bruits LUNGS: CTA B/L, no wheezes, rales or rhonchi. HEART: Irregular, irregular. Rate in the low 100s ABDOMEN: Soft, NT, ND, BS Present EXTREMITIES: No LE edema, pedal pulses intact and equal bilaterally NEURO: A&OX3. No facial droop. Tongue midline. No pronator drift. Toes are downgoing bilaterally. No appreciation of any focal deficits. Principal Diagnosis (1) Atrial fibrillation: (2) Hypertension: (3) Diabetes mellitus type 2 in obese: (4) Hyperlipidemia: Discharge Exam ROS-No Headache, No Visual Changes, No Nausea, No Vomiting, No Fever, No Chills, No Neck Pain or Stiffness, No Chest Pain, No Palpitations, No SOB, No CLEARY, No Cough, No Sputum, No Wheezing, No Abdominal Pain, No Diarrhea, No Hematemesis, No Hemoptysis, No Unexpected Weight Loss, No Flank pain, No Melena, No Hematochezia, No Frequency, No Urgency, No Burning, No Hematuria, No Rashes, No Diaphoresis. Appetite is Normal Physical Exam Gen-AAO x 3, NAD, Afebrile Head-NCAT, EOMI, PERRLA, Anicteric Sclera, No Posterior Pharyngeal Erythema Neck-Supple, No JVD, No Thyromegaly, No Masses, No LAD, No Bruits Lungs-Clear to Auscultation Bilaterally, No Rales, No Rhonchi, No Wheezing, No Crepitus Chest-No S4, +S1, +S2, No S3, No Murmurs, No Rubs, No Gallops, No Ectopy Abdomen-Soft, Bowel Sounds Present, Non Tender, Non Distended, No Hepatomegaly, No Splenomegaly, No Palpable Masses, No Rebound, No Rigidity, No Guarding Musculoskeletal-Full Range of Motion Bilaterally, No CVAT Extremities-No Cyanosis, No Clubbing, No Edema Nuero-Cranial Nerves II-XII grossly intact, Motor WNL, DTRs WNL, Strength WNL, Non Focal Psych-Normal Mood Discharge Data Allergies Allergy/AdvReac Type Severity Reaction Status Date / Time tramadol Allergy Severe UNCLEAR Unverified 12/29/18 17:30 Aminoglycosides Allergy Mild Verified 01/08/11 21:27 bacitracin Allergy Mild Verified 01/08/11 21:27 neomycin Allergy Mild Verified 01/08/11 21:27 polymyxin B Allergy Mild Verified 01/08/11 21:27 Sulfa (Sulfonamide AdvReac Mild NAUSEA, Verified 01/08/11 21:27 Antibiotics) VOMITING, BAD HEADACHE Consultations 12/29/18 18:29 ED Decision to Admit Stat 12/29/18 20:56 Consult Cardiology Routine Consult Case Management - Discharge Planning Routine Ordered Studies 12/29/18 20:56 US carotid doppler BI Urgent Current Diagnoses Type 2 diabetes mellitus with other specified complication (12/29/18) Obesity, unspecified (12/29/18) Hyperlipidemia, unspecified (12/29/18) Essential (primary) hypertension (12/29/18) Unspecified atrial fibrillation (12/29/18) Encounter for prophylactic measures, unspecified (12/29/18) Allergies tramadol Allergy (Severe, Unverified 12/29/18 17:30) UNCLEAR Aminoglycosides Allergy (Mild, Verified 01/08/11 21:27) bacitracin Allergy (Mild, Verified 01/08/11 21:27) neomycin Allergy (Mild, Verified 01/08/11 21:27) polymyxin B Allergy (Mild, Verified 01/08/11 21:27) Sulfa (Sulfonamide Antibiotics) Adverse Reaction (Mild, Verified 01/08/11 21:27) NAUSEA, VOMITING, BAD HEADACHE Height/Weight/Isolation Height 5 ft 1 in Weight 75.5 kg Chemistry 12/29/18 12/30/18 16:01 06:38 Sodium 138 140 Potassium 4.5 4.0 Chloride 107 110 H Carbon Dioxide 22 22 Anion Gap 9.0 8.0 BUN 33 H 25 H Creatinine 1.31 H 1.03 Glucose 134 H 135 H Carotid US 1. No hemodynamically significant stenosis seen within the left carotid arteries. 2. There is dense calcified plaque within the visualized right internal carotid artery. No flow is identified which is similar to the prior ultrasound, however, this was demonstrated to be approximately 25% narrowing on the 01/08/2008 neck CTA rather than complete occlusion. Hospital Course (1) Atrial fibrillation: (2) Hypertension: (3) Diabetes mellitus type 2 in obese: (4) Hyperlipidemia: (5) DVT prophylaxis: Continue Metoprolol Cardio on case Resume Warfarin f/u in clinic c Cards and PCP Total Time Total Time Spent Total Time Spent (In Minutes): 45 mins Total Time Includes: Examination of the Patient, Discharge Planning, Medication Reconciliation and Communication With Other Providers Discharge Plan Discharge Items Patient Disposition: Home - Self-Care Reason For Visit: DIZZINESS, ATRIAL FIBRILLATION Discharge Diagnosis: (1) Atrial fibrillation: (2) Hypertension: (3) Diabetes mellitus type 2 in obese: (4) Hyperlipidemia: Condition on Discharge: Good Activity: Resume your previous activity Lifting: Gradually increase as tolerated Bathing: No limitations Exercise/Sports: Gradually increase as tolerated Driving/Machine Use: No limitations Weightbearing: Full weightbearing Non-emergency contact: Primary Care Provider and [employer] Call non-emergency contact if: you have any medication questions Follow-up/Referrals: Jermaine Dean [Primary Care Provider] - Lg Umana DO [[facility] [employer]ender] - (Call for f/u Appointment) Diet: Carb Consistent or DM2 and Heart Healthy Addtl Attending Provider Instructions: Coumadin Clinic Pending Studies at Discharge: No Stand-Alone Forms: My [facility] Medications and DC Order Prescriptions: New warfarin 2 mg tablet 5 mg PO DAILY Qty: 90 RF: 0 Continued metformin [Glucophage] 500 mg tablet 500 mg PO BID RF: 0 atorvastatin [Lipitor] 20 mg tablet 20 mg PO PM RF: 0 metoprolol succinate [Toprol XL] 100 mg tablet extended release 24 hr 100 mg PO DAILY RF: 0 aspirin [Aspir-81] 81 mg Tablet,Delayed Release (Dr/Ec) 81 mg PO DAILY RF: 0 triamcinolone acetonide [Triderm] 0.1 % cream 1 applic topical BID RF: 0 lorazepam [Ativan] 0.5 mg tablet 0.5 mg PO HS RF: 0 glipizide [Glucotrol XL] 2.5 mg tablet extended release 24hr 2.5 mg PO DAILY RF: 0 lisinopril [Prinivil] 10 mg tablet 10 mg PO DAILY RF: 0 cyanocobalamin (vitamin B-12) [Vitamin B-12] 1,000 mcg Tablet 1,000 mcg PO DAILY RF: 0 polyethylene glycol 3350 [Miralax] 17 gram/dose powder 17 g PO DAILY PRN (Reason: Constipation) RF: 0 cholecalciferol (vitamin D3) [Vitamin D3] 1,000 unit Capsule 1,000 unit PO DAILY RF: 0 Vitron-C 65 mg iron- 125 mg Tablet,Delayed Release (Dr/Ec) 1 tab PO DAILY RF: 0 Discharge Orders: Discharge Order (Routine); Ordered 12/31/18 Ordered By: Bharathi Edwards Admission Data Admit Date/Time: 12/29/18 19:56 Attending Provider: Bharathi Edwards Admit Provider: Morris Loja Primary Care Provider: Jermaine Dean Other Providers: Morris Loja ; Lg Umana
[2018-12-31 07:59] LABS: Estimated Average Glucose 189 mg/dl; Hemoglobin A1C 8.2 % (4.5-5.6)
[2018-12-31 08:11] LABS: Hematocrit (blood only) 32.5 % (37-47); Hemoglobin 10.6 g/dL (12.0-16.0); Mean Corpuscular Hemoglobin 29.8 pg (25-34); Mean Corpuscular Hgb Conc 32.6 g/dL (32-36); Mean Corpuscular Volume 91.3 fL (80-100); Mean Platelet Volume 9.4 fL (7.4-10.4); Platelet Count 262 K/uL (130-400); RDW Coefficient of Variation 13.5 % (11.5-14.5); Red Blood Count 3.56 M/uL (4.2-5.4); White Blood Count 5.27 K/uL (4.8-10.8)
[2018-12-31 08:34] LABS: INR 1.1 (0.9-1.1); Partial Thromboplastin Ratio 2.1; Prothrombin Time 10.9 Seconds (9.0-12.0)
[2018-12-31 08:39] LABS: Partial Thromboplastin Time 57.9 Seconds (21.0-31.0)
[2018-12-31 08:46] LABS: BUN Creatinine Ratio 18.5 (10-20); Calcium 8.6 mg/dl (8.5-10.1); Est GFR (African American) 54.6; Est GFR (Non-African American) 47.1; Potassium 4.2 mmol/L (3.5-5.1)
[2018-12-31] MEDS: ASCORBIC ACID 500 MG TAB PO SCH (08:48)
[2018-12-31] MEDS: METOPROLOL SUCC 25MG EXT REL TAB PO SCH (08:49)
[2018-12-31] MEDS: lisinopriL 10 MG TAB PO SCH (08:51)
[2018-12-31] MEDS: ASPIRIN 81 MG ECTAB PO SCH (08:52)
[2018-12-31] MEDS: CYANOCOBALAMIN 500 MCG TABLET (VITAMIN B-12) PO SCH (08:53)
[2018-12-31] MEDS: CHOLECALCIFEROL 1,000 UNITS TAB PO SCH (08:53)
[2018-12-31] MEDS: MAGNESIUM OXIDE 400 MG TAB PO SCH (08:55)
[2018-12-31] MEDS: INSULIN ASPART 100 UNITS/ML 3 ML PEN SC SCH (08:58)
--- NOTE | 2018-12-31 10:13 | Cardiology Progress Note ---
Date of Service December 31, 2018 Assessment & Plan (1) Atrial fibrillation: Patient presents with newly diagnosed atrial fibrillation. Her [id number] score is score is 4 for risk factors of age >75(2 points), female, HTN. Dizziness had resolved. Proceed with metoprolol succinate for rate control. 100 mg PO daily MINIBUS DRIVER increased to 75 mg bid. Although some BP readings are a little above goal, will continue MINIBUS DRIVER dose of lisinopril, and monitor on increase metoprolol dose especially given presenting symptom of dizziness. Stroke prophylaxis: continue coumadin load as outpt , no bridge. Subjective CC: follow up dizzienss Subjective: Pt feeling well. No chest pain. No dizziness. Telemetry reveals rate controled AF in the range of 80 bpm at rest, 90-100 while washing up in the bathroom . Review of Systems Review of Systems: All systems reviewed & are unremarkable except as noted in HPI & below Physical Exam Physical Exam: Temp Pulse Resp BP Pulse Ox 36.3 C L 81 16 156/90 H 97 12/31/18 08:00 12/31/18 08:00 12/31/18 08:00 12/31/18 08:00 12/31/18 08:00 Constitutional: WD/WN, vitals as above Respiratory: normal respiratory effort, lungs clear to auscultation Cardiovascular: Rate/Rhythm: regular rhythm Heart Sounds: + murmur (1/6 SM) Vessels: no JVD Extremities: no edema Gastrointestinal (Abdomen): normal bowel sounds, soft, nontender, no hepatosplenomegaly Neurologic: patellar DTR's 2+ bilat, sensation intact Results & Data Vital Signs (Past 12 Hours) Vital Signs Temp Pulse Pulse Resp BP Pulse Ox 12/31/18 08:00 36.3 C L 81 16 156/90 H 97 12/31/18 07:32 36.3 C L 81 16 156/90 H 97 12/31/18 07:15 82 12/31/18 07:11 36.4 C L 101 H 18 150/83 H 12/31/18 03:01 36.6 C 73 16 116/65 97 12/30/18 23:23 36.7 C 76 16 119/70 97 Laboratory Results Coagulation 12/31/18 Range/Units 07:45 PT 10.9 (9.0-12.0) Seconds APTT 57.9 H* (21.0-31.0) Seconds CBC 12/31/18 Range/Units 07:45 WBC 5.27 (4.8-10.8) K/uL RBC 3.56 L (4.2-5.4) M/uL Hgb 10.6 L (12.0-16.0) g/dL Hct 32.5 L (37-47) % Plt Count 262 (130-400) K/uL Comprehensive Metabolic Panel 12/31/18 Range/Units 07:45 Sodium 140 (136-145) mmol/L Potassium 4.2 (3.5-5.1) mmol/L Chloride 108 H (98-107) mmol/L Carbon Dioxide 24 (21-32) mmol/L BUN 20 H (7-18) mg/dl Creatinine 1.08 (0.6-1.2) mg/dl Glucose 154 H (70-99) mg/dl Calcium 8.6 (8.5-10.1) mg/dl Intake and Output 12/30/18 12/31/18 12/31/18 22:59 06:59 14:59 Intake Total 827.4 / 2358.1 Balance 827.4 / 1933.1 Intake: IV 627.4 / 1733.1 HEPARIN SODIUM/DEXTROSE 25,000 239.4 / 345.1 units In 500 ml @ 1,050 UNITS/ HR 21 mls/hr IV .[id number] [facility]A Rx #:[id number] Nss 1000ML 1,000 ml @ 80 mls/hr 388 / 1388 IV .[id number] RAIZA Rx#:[id number] Oral 200 / 625 Other: # Unmeasured Voids 2 1 Weight 75.5 kg 75.5 kg Patient Weight 01/01/19 06:59 Weight 75.5 kg Medications Administered Current Inpatient Medications Acetaminophen (Tylenol) 650 mg PO Q4H PRN PRN Reason: Pain or Fever Stop: 01/28/19 20:55 Al Hydrox/Mg Hydrox/Simethicone (Maalox) 15 ml PO Q4H PRN PRN Reason: Dyspepsia Stop: 01/28/19 20:55 Ascorbic Acid (Vitamin C) 500 mg PO DAILY [facility] Stop: 01/29/19 08:59 Last Admin: 12/31/18 08:48 Dose: 500 mg Documented by: Aspirin (Ecotrin Ectab) 81 mg PO DAILY [facility] Stop: 01/29/19 08:59 Last Admin: 12/31/18 08:52 Dose: 81 mg Documented by: Atorvastatin Calcium (Lipitor) 20 mg PO PM [facility] Stop: 01/28/19 20:59 Last Admin: 12/30/18 20:30 Dose: 20 mg Documented by: Cyanocobalamin (Vitamin B-12) 1,000 mcg PO DAILY [facility] Stop: 01/29/19 08:59 Last Admin: 12/31/18 08:53 Dose: 1,000 mcg Documented by: Dextrose (Dextrose 50%) 25 - 50 ml IV UD PRN; Protocol PRN Reason: Hypoglycemia Protocol Stop: 01/28/19 20:55 Glipizide (Glucotrol Extended Rel) 2.5 mg PO DAILYBB [facility]IZ[facility] Stop: 01/29/19 06:29 Last Admin: 12/31/18 07:28 Dose: 2.5 mg Documented by: Glucagon (Glucagen) 1 mg SQ UD PRN; Protocol PRN Reason: Hypoglycemia Protocol Stop: 01/28/19 20:55 Glucose (Glucose 40%) 15 - 30 gm PO UD PRN; Protocol PRN Reason: Hypoglycemia Protocol Stop: 01/28/19 20:55 Glucose (Dex4 Glucose) 4 - 8 tabs PO UD PRN; Protocol PRN Reason: Hypoglycemia Protocol Stop: 01/28/19 20:55 Insulin Aspart (Novolog Flexpen) 0 units SC ACHS [facility] Stop: 01/28/19 20:59 Last Admin: 12/31/18 08:58 Dose: 1 units Documented by: Lisinopril (Zestril) 10 mg PO DAILY [facility] Stop: 01/29/19 08:59 Last Admin: 12/31/18 08:51 Dose: 10 mg Documented by: Lorazepam (Ativan) 0.5 mg PO HS [facility] Stop: 01/28/19 20:59 Last Admin: 12/30/18 20:35 Dose: 0.5 mg Documented by: Magnesium Hydroxide (Milk Of Magnesia) 30 ml PO Q12H PRN PRN Reason: Constipation Stop: 01/28/19 20:55 Magnesium Oxide (Mag-Ox) 400 mg PO BID [facility] Stop: 01/29/19 08:59 Last Admin: 12/31/18 08:55 Dose: 400 mg Documented by: Metoprolol Succinate (Toprol Xl) 75 mg PO Q12H [facility] Stop: 01/29/19 20:59 Last Admin: 12/31/18 08:49 Dose: 75 mg Documented by: Metoprolol Tartrate (Lopressor) 5 mg IV Q5M PRN PRN Reason: Tachycardia Stop: 01/28/19 20:55 Miscellaneous (Carbohydrates For Hypoglycemia) 15 - 30 gm PO UD PRN PRN Reason: Hypoglycemia Treatment Stop: 01/28/19 20:55 Ondansetron HCl (Zofran) 4 mg IV Q6H PRN PRN Reason: Nausea Stop: 01/28/19 20:55 Vitamin D (Vitamin D3) 1,000 units PO DAILY [facility] Stop: 01/29/19 08:59 Last Admin: 12/31/18 08:53 Dose: 1,000 units Documented by: Warfarin Sodium (Coumadin) 5 mg PO DAILY@1600 [facility] Stop: 01/29/19 15:59 Last Admin: 12/30/18 15:41 Dose: 5 mg Documented by: Zolpidem Tartrate (Ambien) 5 mg PO HSZ [facility] Stop: 01/28/19 21:59 Last Admin: 12/31/18 02:08 Dose: Not Given Documented by:
== END 2018-12-31 11:29 | disposition home or self-care (01) | DRG 310 ==
LOC: ED 15:16 → 2S 19:56 → SUATTDRO 19:56 → 2S 20:26

== ENCOUNTER 2023-02-20 13:57 | Inpatient (IN) ==
[2023-02-20] MEDS ORDERED: SODIUM CHLORIDE 0.9% 500 ML IV ONE ×2 (14:20→15:49)
--- NOTE | 2023-02-20 14:20 | ED Triage Note ---
Date of Service February 20, 2023 Provider in Triage Author: Melissa Avendano History of Present Illness This patient was briefly evaluated while in triage. An abbreviated physical exam was performed. This patient is a 87-year-old Female who presents to the ED via EMS for evaluation of multiple symptoms. She states she has been sick for the past few days. She has had diarrhea, nausea, and decreased appetite. She has been having fevers. She denies any abdominal pain. Physical Exam VITALS: Vitals are noted on the nurse's note and reviewed by myself. GENERAL: This is an 87-year-old female, in no acute distress, sitting in a wheelchair in triage. SKIN: The skin was without rashes. HEAD: Normocephalic atraumatic. HEART: Tachycardic, regular rhythm without murmurs gallops or rubs. LUNGS: Clear to auscultation bilaterally without wheezes, rales or rhonchi. ABDOMEN: Positive bowel sounds x 4. Soft, nontender to palpation. NEURO: Patient was alert and oriented to person place and time. Initial orders for labs and / or imaging were placed and patient was placed in the waiting area until a bed is available. Please see further documentation for the full ED course. MDM / Impression Impression Impression: Acute GI bleeding, Diarrhea, Melena, JOLIE (acute kidney injury), Hypomagnesemia, Supratherapeutic INR, Influenza A
--- NOTE | 2023-02-20 14:45 | Emergency Department Note ---
Impression & Plan Acute GI bleeding, Diarrhea, Melena, JOLIE (acute kidney injury), Hypomagnesemia, Supratherapeutic INR, Influenza A ED Provider Note HISTORY OF PRESENT ILLNESS: Patient is an 87-year-old female presenting with diarrhea, poor oral intake and weakness. Patient reports for the last 2 days she been having multiple episodes of black diarrhea. States that she has not tolerated anything by mouth secondary to when she does she has diarrhea. Reports 4-6 episodes of black- colored diarrhea a day. Denies any recent travel. Denies any abdominal pain. She was recently on an oral antibiotic for a UTI. Son reports she did have a fever earlier today. Patient denies any nausea or vomiting. Denies any chest pain or shortness of breath. Patient is on Coumadin for history of A-fib. ROS: as above PHYSICAL EXAM: Constitutional: Patient appears in no acute distress. HENT: Head: Normocephalic and atraumatic. Eyes: EOMI, PERRL Mouth/Throat: Mucous membranes moist. Neck: Trachea midline. Neck supple. Cardiovascular: RRR, No murmurs, rubs or gallops. Intact distal pulses. Pulmonary/Chest: No respiratory distress. Breath sounds clear and equal bilaterally. No wheezes or rales. Abdominal: Abdomen soft, no tenderness, rebound or guarding. : Chaperoned by nursing staff. Patient has joao melanotic stool. Hemoccult positive. Musculoskeletal: No edema, tenderness or deformity noted. Skin: Warm and dry. No rash, erythema, pallor or cyanosis Psychiatric: Appropriate mood and affect for situation. Neurological: Alert and keenly responsive. CN II-XII grossly intact, moving all extremities equally and fully. MDM: - Vitals signs showed hypotension - History obtained via patient. Patient presents with diarrhea and generalized weakness. Patient reports for the last 2 days she been having multiple episodes of black tarry diarrhea. States she has not been tolerating anything by mouth secondary to having profuse diarrhea after p.o. intake. Reports 4-6 episodes of black-colored diarrhea a day. Denies any recent travel. Denies any abdominal pain. She has recently been on oral antibiotic for UTI. She states she did have a fever today. Denies any nausea or vomiting. She is on Coumadin for history of A-fib. - Chronic conditions affecting care: HTN; HLD; Afib; hx of breast cancer; DM-2 - Differential diagnoses include, but are not limited to: viral syndrome; Cdiff; GI bleed; electrolyte abnormality - Order placed for continuous cardiac monitoring. At this time, monitor showed rate of 90 bpm with irregular rhythm, per my interpretation. - External medical records reviewed. Discharge summary dated 12/31/2018 was reviewed. Patient had been admitted at that time for dizziness. - Laboratory workup interpreted by myself showed normal WBC; anemia (Hgb 9.7); stable electrolytes; elevated anion gap (13); elevated BUN (80 - suggestive of GI bleed); JOLIE (Cr 2.10); hypomagnesemia (Mg 1.6); normal lipase - Fecal occult blood positive - Patient given 1L NS in ER. Given 1g IV magnesium for electrolyte replacement. - INR supratherapeutic at 7.7 In setting of GI bleed and initial hypotension on arrival to ER, 10 mg IV vitamin K ordered. - Fecal occult blood positive. - Type and screen ordered. - Biofire positive for influenza A. - Given 80 mg IV protonix for presumed upper GI bleed - Discussion was had with youth care professional about patient's case and need for admission - Hospitalist consulted for admission - Patient admitted to [] service for further evaluation and management. I provided 46 minutes of critical care time to this patient's care outside of billable procedures. ASSESSMENT AND PLAN: Diagnosis: diarrhea; melena; GI bleed; JOLIE; hypomagnesemia; supratherapeutic INR; influenza A Plan: admit Past Med/Surg History Medical History (Updated 02/20/23 @ 16:43 by Shruthi Soler MD) Diabetes mellitus type 2 in obese History of breast cancer Hyperlipidemia Hypertension Atrial fibrillation Surgical History (Updated 12/29/18 @ 20:30 by Heriberto Jordan PA-C) Bilateral cataracts Family History Other No significant family history Social History (Updated 12/29/18 @ 20:30 by Heriberto Jordan PA-C) Smoking Status: Never smoker Hx Alcohol Use: Yes Hx Substance Use: No Preferred Language: [place] Communication Ability: Effective Security Services Specialist Required: No Beliefs That Will Affect Care: None Current Living Situation: Alone current occupational status: retired Feels Safe at Home: Yes Assistive Devices: None Allergies Allergies Allergy/AdvReac Type Severity Reaction Status Date / Time tramadol Allergy Severe HALLUCINATIONS-PER Verified 02/20/23 16:07 GMG bacitracin Allergy Mild CAUSED EYE Verified 02/20/23 16:07 PROBLEMS neomycin Allergy Mild Rash Verified 02/20/23 16:07 polymyxin B Allergy Mild CAUSED EYE Verified 02/20/23 16:07 PROBLEMS Aminoglycosides Allergy Unknown Unknown Verified 02/20/23 16:07 aspirin AdvReac Severe HX OF GI Verified 02/20/23 16:07 BLEED ibuprofen AdvReac Severe HX OF GI Verified 02/20/23 16:07 BLEED naproxen [From Aleve] AdvReac Severe HX OF GI Verified 02/20/23 16:07 BLEED NSAIDS (Non-Steroidal AdvReac Severe HX OF GI Verified 02/20/23 16:07 Anti-Inflamma BLEED doxycycline AdvReac Intermediate HALLUCINATI Verified 02/20/23 16:07 ONS nitrofurantoin AdvReac Intermediate HEADACHES Verified 02/20/23 16:07 [From Macrobid] Sulfa (Sulfonamide AdvReac Intermediate NAUSEA, Verified 02/20/23 16:07 Antibiotics) VOMITING, BAD HEADACHE triamterene AdvReac Intermediate ULCERS Verified 02/20/23 16:07 Home Meds Home Medications Medication Instructions Recorded Confirmed cholecalciferol (vitamin D3) 25 1,000 unit PO DAILY 12/29/18 02/20/23 mcg (1,000 unit) capsule (Vitamin D3) cyanocobalamin (vitamin B-12) 1,000 mcg PO DAILY 12/29/18 02/20/23 1,000 mcg tablet (Vitamin B-12) glipizide 2.5 mg tablet, extended 2.5 mg PO DAILY 12/29/18 02/20/23 release 24 hr (Glucotrol XL) lorazepam 0.5 mg tablet (Ativan) 0.5 mg PO BID PRN Anxiety 12/29/18 02/20/23 metoprolol succinate 100 mg See Rx Instructions .Route .COMPLEX 12/29/18 02/20/23 tablet,extended release 24 hr (Toprol XL) polyethylene glycol 3350 17 17 g PO DAILY PRN Constipation 12/29/18 02/20/23 gram/dose oral powder (Miralax) triamcinolone acetonide 0.1 % 1 applic topical BID PRN Itching 12/29/18 02/20/23 topical cream (Triderm) amlodipine 2.5 mg tablet 2.5 mg PO QAM 02/20/23 02/20/23 atorvastatin 80 mg tablet 80 mg PO QAM 02/20/23 02/20/23 docusate sodium 100 mg capsule 100 mg PO DAILY 02/20/23 02/20/23 furosemide 40 mg tablet 40 mg PO [id number] 02/20/23 02/20/23 hydrocodone 5 mg-acetaminophen 325 1 tab PO BID PRN Pain, Severe 02/20/23 02/20/23 mg tablet lisinopril 20 mg tablet 20 mg PO DAILY 02/20/23 02/20/23 metformin 500 mg tablet 500 mg PO BIDM 02/20/23 02/20/23 warfarin 2 mg tablet See Rx Instructions .Route .COMPLEX 02/20/23 02/20/23 Results & Data (ED) Vital Signs Vital Signs - 24 hr 02/20/23 14:18 02/20/23 14:40 02/20/23 14:46 Temperature 36.4 C L 36.4 C L Temperature Source Temporal Artery Scan Oral Pulse Rate 54 L 65 Pulse Rate [Apical] 89 Pulse Rhythm [Apical] Regular Pulse Strength [Apical] Normal Respiratory Rate 18 20 Respiratory Effort / Characteristics Non-Labored Spontaneous Non-Labored Spontaneous Respiratory Depth Normal Normal Respiratory Pattern Regular Blood Pressure 97/49 L Blood Pressure [Left Arm] 135/67 Blood Pressure Mean 65 Blood Pressure Mean [Left Arm] 89 Blood Pressure Position Sitting Blood Pressure Position [Left Arm] Semi-fowlers Pulse Oximetry 99 98 Oxygen Delivery Method Room Air Room Air Sepsis Recent Fever Within 48 Hours Yes Sepsis New/Unexplained Change in Mental Status N/A Sepsis Action Taken by Nursing No Action Required Laboratory Data 02/20/23 14:44 02/20/23 14:44 Lab Results 02/20/23 02/20/23 02/20/23 Range/Units 14:43 14:44 15:37 WBC 8.00 (4.8-10.8) K/ul RBC 3.29 L (4.20-5.40) M/uL Hgb 9.7 L (12.0-16.0) g/dl Hct 30.4 L (37.0-47.0) % MCV 92.4 (80.0-100.0) fL MCH 29.5 (25.0-34.0) pg MCHC 31.9 L (32.0-36.0) g/dL RDW Std Deviation 49.0 H (36.4-46.3) fL RDW Coeff of Jareth 14.5 (11.5-14.5) % Plt Count 250 (130-400) K/uL MPV 10.9 (9.4-12.4) fL Neutrophils % (Manual) 73 % Lymphocytes % (Manual) 9 % Monocytes % (Manual) 3 % Eosinophils % (Manual) 1 % Neutrophils # (Manual) 5.84 (1.40-6.50) K/uL Total Absolute Neuts 5.84 (1.4-6.5) K/uL Lymphocytes # (Manual) 0.72 L (1.2-3.4) K/uL Total Abs Lymphocytes 1.84 (1.2-3.4) K/uL Monocytes # (Manual) 0.24 (0.11-0.59) K/uL Eosinophils # (Manual) 0.08 (0-0.50) K/uL Large Granular Lymphs 14 % # Lrg Granular Lymphs 1.12 K/uL PT 74.4 H (9.0-12.0) Seconds INR 7.7 H* (0.9-1.1) Sodium 137 (136-145) mmol/L Potassium 4.4 (3.5-5.1) mmol/L Chloride 106 (98-107) mmol/L Carbon Dioxide 18 L (21-32) mmol/L Anion Gap 13 H (3-11) BUN 80 H (6-23) mg/dl Creatinine 2.10 H (0.6-1.2) mg/dl Est Cr Clr Drug Dosing 16.0 ml/min Est GFR ( Amer) 23.8 ml/min Est GFR (Non-Af Amer) 20.5 ml/min BUN/Creatinine Ratio 38.1 H (10-20) Glucose 116 H (70-99(Fasting)) mg/dl Calcium 8.8 (8.6-10.3) mg/dl Magnesium 1.6 L (1.7-2.4) mg/dl Total Bilirubin 0.5 (0.2-1.0) mg/dl AST 25 (13-39) U/L ALT 15 (7-52) U/L Alkaline Phosphatase 56 (34-104) U/L Total Protein 6.7 (6.0-8.3) gm/dl Albumin 3.2 L (3.4-5.0) gm/dl Globulin 3.5 (2.5-4.0) gm/dl Albumin/Globulin Ratio 0.9 (0.9-2) Lipase 65 (11-82) U/L Nasal Influ A H1 2008 PCR DETECTED A* (NotDetected) POC Stool Occult Blood Positive A (Negative) Adenovirus (PCR) Not Detected (NotDetected) B. pertussis DNA (PCR) Not Detected (NotDetected) B.parapertussis DNA PCR Not Detected (NotDetected) C. pneumoniae DNA (PCR) Not Detected (NotDetected) Coronavirus OC43 (PCR) Not Detected (NotDetected) Coronavirus HKU1 (PCR) Not Detected (NotDetected) Coronavirus 229E (PCR) Not Detected (NotDetected) SARS-CoV-2 (PCR) Not Detected (NotDetected) Coronavirus NL63 (PCR) Not Detected (NotDetected) Human Metapneumovir PCR Not Detected (NotDetected) Influenza Type B (PCR) Not Detected (NotDetected) M. pneumoniae (PCR) Not Detected (NotDetected) Parainfluenza 1 (PCR) Not Detected (NotDetected) Parainfluenza 2 (PCR) Not Detected (NotDetected) Parainfluenza 3 (PCR) Not Detected (NotDetected) Parainfluenza 4 (PCR) Not Detected (NotDetected) RSV (PCR) Not Detected (NotDetected) Entero/Rhino (PCR) Not Detected (NotDetected) Blood Type A Positive Antibody Screen NEGATIVE Administered Medications Magnesium Sulfate/Dextrose (Magnesium Sulfate / D5w) 1 gm in 100 mls @ 100 mls/hr IV NOW STA Stop: 02/20/23 16:49 Last Admin: 02/20/23 16:37 Dose: 100 mls/hr Documented By: TBS Discontinued Medications Sodium Chloride (Nss) 500 mls @ 999 mls/hr IV .Q31M ONE Stop: 02/20/23 14:50 Last Infusion: 02/20/23 15:37 Dose: Infused Documented By: Admin: 02/20/23 14:53 Dose: 999 mls/hr Documented By: LAURO Phytonadione 10 mg/ Dextrose 51 mls @ 102 mls/hr IV ONE ONE Stop: 02/20/23 16:24 Last Admin: 02/20/23 16:38 Dose: 102 mls/hr Documented By: DELILAH Discharge Plan Visit Data Chief Complaint: Back Injury/Pain Stated Complaint: Back/Neck Pain ED Provider: Shruthi Soler Discharge Problem: Acute GI bleeding, Diarrhea, Melena, JOLIE (acute kidney injury), Hypomagnesemia, Supratherapeutic INR, Influenza A Forms Stand Alone Forms: [facility] [employer] Prescriptions Prescriptions: No Action metoprolol succinate [Toprol XL] 100 mg tablet extended release 24 hr See Rx Instructions .ROUTE .COMPLEX Rx Instructions: TAKES 100 MG QAM, THEN 50 MG QHS. triamcinolone acetonide [Triderm] 0.1 % cream 1 applic topical BID PRN (Reason: Itching) lorazepam [Ativan] 0.5 mg tablet 0.5 mg PO BID PRN (Reason: Anxiety) glipizide [Glucotrol XL] 2.5 mg tablet extended release 24hr 2.5 mg PO DAILY Rx Instructions: TAKE 30 MINUTES PRIOR TO MEAL cyanocobalamin (vitamin B-12) [Vitamin B-12] 1,000 mcg Tablet 1,000 mcg PO DAILY polyethylene glycol 3350 [Miralax] 17 gram/dose powder 17 g PO DAILY PRN (Reason: Constipation) cholecalciferol (vitamin D3) [Vitamin D3] 1,000 unit Capsule 1,000 unit PO DAILY furosemide 40 mg tablet 40 mg PO 5XWK Rx Instructions: TAKES MON, TUES, THURS, FRI, & SAT. DO NOT TAKE WED & SUN. metformin 500 mg tablet 500 mg PO BIDM atorvastatin 80 mg tablet 80 mg PO QAM hydrocodone-acetaminophen 5-325 mg tablet 1 tab PO BID PRN (Reason: Pain, Severe) lisinopril 20 mg Tablet 20 mg PO DAILY amlodipine 2.5 mg tablet 2.5 mg PO QAM docusate sodium 100 mg Capsule 100 mg PO DAILY Rx Instructions: IF NEEDED MAY TAKE SECOND DOSE QPM. warfarin 2 mg tablet See Rx Instructions .ROUTE .COMPLEX Rx Instructions: 02/20/23--TAKES 2 MG EVERY EVENING EXCEPT WEDNESDAYS, TAKES 4 MG ON MON. ONLY. Referrals Referrals: Jermaine Dean [Primary Care Provider] -
[2023-02-20 14:59] LABS: Hematocrit (blood only) 30.4 % (37.0-47.0); Hemoglobin 9.7 g/dl (12.0-16.0); Mean Corpuscular Hemoglobin 29.5 pg (25.0-34.0); Mean Corpuscular Hgb Conc 31.9 g/dL (32.0-36.0); Mean Corpuscular Volume 92.4 fL (80.0-100.0); Mean Platelet Volume 10.9 fL (9.4-12.4); Platelet Count 250 K/uL (130-400); RDW Coefficient of Variation 14.5 % (11.5-14.5); Red Blood Count 3.29 M/uL (4.20-5.40)
[2023-02-20 15:18] LABS: Albumin Globulin Ratio 0.9 (0.9-2); Albumin Level 3.2 gm/dl (3.4-5.0); BUN Creatinine Ratio 38.1 (10-20); Bilirubin,Total 0.5 mg/dl (0.2-1.0); Calcium 8.8 mg/dl (8.6-10.3); Est GFR (African American) 23.8 ml/min; Est GFR (Non-African American) 20.5 ml/min; Globulin 3.5 gm/dl (2.5-4.0); Magnesium 1.6 mg/dl (1.7-2.4); Potassium 4.4 mmol/L (3.5-5.1); Total Protein 6.7 gm/dl (6.0-8.3)
[2023-02-20 15:35] LABS: Prothrombin Time 74.4 Seconds (9.0-12.0)
[2023-02-20 15:50] LABS: ALC (manual) 1.84 K/uL (1.2-3.4); ANC (manual) 5.84 K/uL (1.4-6.5); Eosinophils # (manual) 0.08 K/uL (0-0.50); Eosinophils % (manual) 1 %; Large Granular Lymph # (manua 1.12 K/uL; Large Granular Lymph % (manual) 14 %; Lymphocytes # (manual) 0.72 K/uL (1.2-3.4); Lymphocytes % (manual) 9 %; Monocytes # (manual) 0.24 K/uL (0.11-0.59); Monocytes % (manual) 3 %; Neutrophils # (manual) 5.84 K/uL (1.40-6.50); Neutrophils % (manual) 73 %
[2023-02-20 15:53] LABS: INR 7.7 (0.9-1.1)
[2023-02-20 15:54] LABS: Adenovirus PCR Not Detected (NotDetected); Bordetella parapertussis PCR Not Detected (NotDetected); Bordetella pertussis PCR Not Detected (NotDetected); Chlamydia pneumoniae PCR Not Detected (NotDetected); Coronavirus 229E PCR Not Detected (NotDetected); Coronavirus CoV-2 (COVID19)PCR Not Detected (NotDetected); Coronavirus HKU1 PCR Not Detected (NotDetected); Coronavirus NL63 PCR Not Detected (NotDetected); Coronavirus OC43PCR Not Detected (NotDetected); Human Metapneumovirus PCR Not Detected (NotDetected); Influenza B PCR Not Detected (NotDetected); Mycoplasma pneumoniae PCR Not Detected (NotDetected); Parainfluenza Virus 1 PCR Not Detected (NotDetected); Parainfluenza Virus 2 PCR Not Detected (NotDetected); Parainfluenza Virus 3 PCR Not Detected (NotDetected); Parainfluenza Virus 4 PCR Not Detected (NotDetected); Respiratory Syncytial VirusPCR Not Detected (NotDetected); Rhinovirus/Enterovirus PCR Not Detected (NotDetected)
[2023-02-20 15:55] LABS: Influenza A (H1 2009) PCR DETECTED (NotDetected)
[2023-02-20] MEDS ORDERED: PHYTONADIONE 10 MG in DEXTROSE 5% 50 ML IV ONE (15:55)
[2023-02-20] MEDS: MAGNESIUM SULFATE / D5W 1 GM/100 ML BAG IV STA ×2 (16:37→17:16)
[2023-02-20] MEDS ORDERED: PANTOprazole 80 MG in DEXTROSE 5% 100 ML IV STA (16:39)
[2023-02-20] MEDS ORDERED: GLUCAGON FOR INJ 1 MG VIAL SQ PRN (16:40)
[2023-02-20] MEDS ORDERED: CARBOHYDRATES FOR HYPOGLYCEMIA PO PRN (16:40)
[2023-02-20] MEDS ORDERED: GLUCOSE 40% GEL 15 GM TUBE PO PRN (16:40)
[2023-02-20] MEDS ORDERED: PHARMACY GLYCEMIC MGMT CONSULT PRN (16:40)
[2023-02-20] MEDS ORDERED: ONDANSETRON INJ 2 MG/ML 2 ML VIAL IV PRN (16:40)
[2023-02-20] MEDS ORDERED: DEXTROSE 50% 50 ML SYRINGE IV PRN (16:40)
[2023-02-20] MEDS ORDERED: POLYETHYLENE (MIRALAX) 17 GM PACK PO PRN (16:40)
[2023-02-20] MEDS ORDERED: MAGNESIUM HYDROXIDE SUSP 30 ML UDC PO PRN (16:40)
[2023-02-20] MEDS ORDERED: GLUCOSE 10 TAB/TUBE PO PRN (16:40)
[2023-02-20] MEDS ORDERED: ALUMINUM/MAGNESIUM SUSP 30 ML UDC PO PRN (16:40)
--- NOTE | 2023-02-20 16:53 | History & Physical Report ---
Date of Service February 20, 2023 Assessment & Plan (1) Acute GI bleeding: (2) Atrial fibrillation: (3) Hypertension: (4) JOLIE (acute kidney injury): (5) Hypomagnesemia: (6) Supratherapeutic INR: (7) Influenza A: (8) Melena: (9) Diarrhea: (10) Hyperlipidemia: (11) Diabetes mellitus type 2 in obese: Plan Ms. Benitez is an 87 year old female that presents to the ED today with weakness, decreased PO intake, and diarrhea x3 days with noted joao red melena. She was on recent antibiotics for a UTI. Incidentally, was found to have a Supratherapeutic INR. No leukocytosis, mild JOLIE Creatinine 2.10; baseline 1.2- 1.3. Most recent ECHO 11/17/22: EF 55-59%, moderate to severe MR, Moderate TR; mild pHTN. On examination she is AAOx3 and able to have a meaningful conversation and appears relatively stable. Normotensive without tachycardia or hypoxia. She is afebrile and on room air. While I was interviewing her with her family at the bedside she went into an 8 beat run of asymptomatic V. tach. ECG was obtained at that time with A-fib and PVCs. Patient denies chest pain. Will obtain BMP with CBC/PT/INR check at 2100. Patient complex with numerous issues including a GIB and supratherapeutic INR which is suspected to be related to abx use for a recent UTI. Patient with chronic kidney dysfunction, will monitor trends and obtain renal US. She is positive for influenza; will hold on any Tamiflu for now given the complexity of her other ailments. Will hold on any additional fluid given her moderate to severe MR and has remained normotensive since arrival. If tamiflu is considered, would need renal dosing given acute on chronic kidney failure. Will replace electrolyte. In the meantime will consult GI and placed on Protonix drip. GIB: Acute Place in PCU Joao melena;black tarry stools x 3 days FOBT + Hypotensive initially in ED; received 2 LNSB; serum Hgb 9.7; baseline 11.1 Protonix gtt started Trend CBC @ 2100 and Q 6 thereafter x 3 NPO for now GI Consult placed Supratherapeutic INR: Acute Takes Coumadin for AF INR 7.7; Vitamin K 10 mg IV administered in ED Will recheck PT/INR at 2100 JOLIE: Acute serum creatinine 2.10; baseline 1.2-1.3 Obtain renal US Influenza A +: Acute Due to renal function and other acute issues; hold on Tamiflu for now Mucinex Sputum culture ordered Rest of Biofire negative Ventricular Tachycardia: Acute During evaluation in the room; 8 beat run VT asymptomatic K+ 4.4 ECG obtained; some PVC's noted, remains in AF Will trend labs and ECG PRN Hypomg+ Acute Serum Mg+ 1.6; replaced with 1 G Mg+ in ED Check Mg+ in AM No ectopy on ECG HTN: Chronic stable Takes Amlodipine; continue Takes Lisinopril; Hold Lisinopril for now due to JOLIE Takes Lasix; hold temporarily to assist with maintaining BP with active bleed Diabetes Mellitus type 2: chronic stable Takes Glipizide and Metformin; hold while inpt place on ACHS SSI while here Diabetic diet A1C in AM HLD: chronic takes atorvastatin;continue Disposition: PCP: Dr. Mak Code Status: Full Code VTE prophylaxis: On Coumadin;supratherapeutic I spent a total of 87 minutes coordinating, documenting, and providing care for this patient excluding time spent in the performance of separately billed services. All of the aforementioned completed while collaborating with the assigned attending physician for a full treatment plan. Please see their addendum for further details. History of Present Illness Chief Complaint: [facility] Primary Care Provider: Dr. Mak Ms. Benitez is an 87 year old female that presents to the ED today with weakness, decreased PO intake, and diarrhea x3 days with noted joao red melena. She was on recent antibiotics for a UTI. Incidentally, was found to have a Supratherapeutic INR. No leukocytosis, mild JOLIE Creatinine 2.10; baseline 1.2- 1.3. Most recent ECHO 11/17/22: EF 55-59%, moderate to severe MR, Moderate TR; mild pHTN. Patient denies tobacco, alcohol, recreational drug including medical marijuana use. She denies CARABALLO, dizziness, SOB, chest pain, palpitations, abdominal pain or tenderness, recent falls or trauma, visual or auditory changes. On examination she is AAOx3 and able to have a meaningful conversation and appears relatively stable. Normotensive without tachycardia or hypoxia. She is afebrile and on room air. While I was interviewing her with her family at the bedside she went into an 8 beat run of asymptomatic V. tach. ECG was obtained at that time with A-fib and PVCs. Patient denies chest pain. Will obtain BMP with CBC/PT/INR check at 2100. Patient complex with numerous issues including a GIB and supratherapeutic INR which is suspected to be related to abx use for a recent UTI. Patient with chronic kidney dysfunction, will monitor trends and obtain renal US. She is positive for influenza; will hold on any Tamiflu for now given the complexity of her other ailments. Will hold on any additional fluid given her moderate to severe MR and has remained normotensive since arrival. If tamiflu is considered, would need renal dosing given acute on chronic kidney failure. Will replace electrolyte. In the meantime will consult GI and placed on Protonix drip. Patient will be admitted for further evaluation and management. Please see H&P for further details. Allergies Allergy/AdvReac Type Severity Reaction Status Date / Time tramadol Allergy Severe HALLUCINATIONS-PER Verified 02/20/23 16:07 GMG bacitracin Allergy Mild CAUSED EYE Verified 02/20/23 16:07 PROBLEMS neomycin Allergy Mild Rash Verified 02/20/23 16:07 polymyxin B Allergy Mild CAUSED EYE Verified 02/20/23 16:07 PROBLEMS Aminoglycosides Allergy Unknown Unknown Verified 02/20/23 16:07 aspirin AdvReac Severe HX OF GI Verified 02/20/23 16:07 BLEED ibuprofen AdvReac Severe HX OF GI Verified 02/20/23 16:07 BLEED naproxen [From Aleve] AdvReac Severe HX OF GI Verified 02/20/23 16:07 BLEED NSAIDS (Non-Steroidal AdvReac Severe HX OF GI Verified 02/20/23 16:07 Anti-Inflamma BLEED doxycycline AdvReac Intermediate HALLUCINATI Verified 02/20/23 16:07 ONS nitrofurantoin AdvReac Intermediate HEADACHES Verified 02/20/23 16:07 [From Macrobid] Sulfa (Sulfonamide AdvReac Intermediate NAUSEA, Verified 02/20/23 16:07 Antibiotics) VOMITING, BAD HEADACHE triamterene AdvReac Intermediate ULCERS Verified 02/20/23 16:07 Home Medications Medication Instructions Recorded Confirmed Type cholecalciferol (vitamin D3) 25 1,000 unit PO DAILY 12/29/18 02/20/23 History mcg (1,000 unit) capsule (Vitamin D3) cyanocobalamin (vitamin B-12) 1,000 mcg PO DAILY 12/29/18 02/20/23 History 1,000 mcg tablet (Vitamin B-12) glipizide 2.5 mg tablet, extended 2.5 mg PO DAILY 12/29/18 02/20/23 History release 24 hr (Glucotrol XL) lorazepam 0.5 mg tablet (Ativan) 0.5 mg PO BID PRN Anxiety 12/29/18 02/20/23 History metoprolol succinate 100 mg See Rx Instructions .Route .COMPLEX 12/29/18 02/20/23 History tablet,extended release 24 hr (Toprol XL) polyethylene glycol 3350 17 17 g PO DAILY PRN Constipation 12/29/18 02/20/23 History gram/dose oral powder (Miralax) triamcinolone acetonide 0.1 % 1 applic topical BID PRN Itching 12/29/18 02/20/23 History topical cream (Triderm) amlodipine 2.5 mg tablet 2.5 mg PO QAM 02/20/23 02/20/23 History atorvastatin 80 mg tablet 80 mg PO QAM 02/20/23 02/20/23 History docusate sodium 100 mg capsule 100 mg PO DAILY 02/20/23 02/20/23 History furosemide 40 mg tablet 40 mg PO 5XWK 02/20/23 02/20/23 History hydrocodone 5 mg-acetaminophen 325 1 tab PO BID PRN Pain, Severe 02/20/23 02/20/23 History mg tablet lisinopril 20 mg tablet 20 mg PO DAILY 02/20/23 02/20/23 History metformin 500 mg tablet 500 mg PO BIDM 02/20/23 02/20/23 History warfarin 2 mg tablet See Rx Instructions .Route .COMPLEX 02/20/23 02/20/23 History Past Med/Surg History Medical History Diabetes mellitus type 2 in obese History of breast cancer Hyperlipidemia Hypertension Atrial fibrillation Surgical History Bilateral cataracts Family History Other No significant family history Social History Smoking Status: Never smoker Hx Alcohol Use: Yes Alcohol type: wine Hx Substance Use: No Preferred Language: Slovak Communication Ability: Effective Windshield Installer Required: No Beliefs That Will Affect Care: None Current Living Situation: Alone current occupational status: retired Other Information That Helps Us Care for You: No Feels Safe at Home: Yes Safety Concerns: Feels Safe At This Time Assistive Devices: None, Cane and Walker Review of Systems Review of Systems: Neuro: (-) Falls, trauma, slurred speech HEENT: (-) CARABALLO, dizziness, dysphagia, visual or auditory changes CV: (-) CP, palpitations, swelling Resp: (-) SOB GI: (-) appetite changes, N/V/D, bowel changes : (-) urinary changes Skin: (-) rashes Psych: (-) anxiety, depression Physical Exam Physical Exam: Neuro: AAOx4, PERRLA, no aphagia, memory changes, CNII-XII grossly intact HEENT: head normocephalic, moist mucus membranes CV: S1/S2, (-) M/G/R, (-) edema, cap refill < 3 seconds Resp: Lungs CTA in all [place]. On RA GI: Abdomen S/NT/ND, Ax4 bowel sounds, (-) CVA tenderness Musculoskeletal: 5/5 B/L UE strength, 5/5 B/L LE strength. No gait disturbance Skin: (-) rashes , (-) erythema. Psych: euthymic mood Results & Data Results & Data Vital Signs (Past 12 Hours) Vital Signs Temp Pulse Pulse Resp BP BP Pulse Ox 02/20/23 14:46 36.4 C L 89 20 135/67 98 02/20/23 14:40 65 02/20/23 14:18 36.4 C L 54 L 18 97/49 L 99 O2 Del Method 02/20/23 14:46 Room Air 02/20/23 14:40 02/20/23 14:18 Room Air Laboratory Results Short CBC 02/20/23 Range/Units 14:44 WBC 8.00 (4.8-10.8) K/ul Hgb 9.7 L (12.0-16.0) g/dl Hct 30.4 L (37.0-47.0) % Plt Count 250 (130-400) K/uL BMP 02/20/23 14:44 Sodium 137 Potassium 4.4 Chloride 106 Carbon Dioxide 18 L BUN 80 H Creatinine 2.10 H Glucose 116 H Calcium 8.8 Liver Function 02/20/23 Range/Units 14:44 Total Bilirubin 0.5 (0.2-1.0) mg/dl AST 25 (13-39) U/L ALT 15 (7-52) U/L Alkaline Phosphatase 56 (34-104) U/L Albumin 3.2 L (3.4-5.0) gm/dl Urine 02/20/23 Range/Units 16:49 Urine Color Yellow Urine Appearance Turbid A (Clear) Urine pH 5.0 (4.5-7.5) Ur Specific [place] 1.016 (1.000-1.030) Urine Protein 1+ H (Negative) Urine Glucose (UA) Negative (Negative) Code Status & VTE Plan Code Status Full Code in the event of cardiac or respiratory arrest VTE Prophylaxis Plan VTE Prophylaxis will be ordered: Yes Supervising Physician Co-Signing Physician Notes Pt seen and examined by myself, Flori Hussein MD on the day of service. Care was coordinated with PARESH Pineda. 87yoF admitted with melena in the setting of an acute GI Bleed and supratherapeutic INR. On exam, had just had an episode of black tarry stools. Was resting comfortably, no acute distress. Abdomen nontender. GI bleed- hgb 9.7 on admission, trend q6h, transfuse as needed for hgb<7 or 8 and lower + symptoms. PPI drip, NPO, GI consult. Hold warfarin. Supratherapeutic INR- on warfarin for Hx of a fib. INR 7.7 on admission, reversed with 10mg Vit K in the ED, continue to monitor, hold warfarin. Hypotension- received fluid boluses in the ED. Consider further very gentle hydration, hold all home antihypertensives. Resume as tolerated Episode of v tach- EKG, consider echo and cardiology consult. Continue to monitor on telemetry. UTI-UA suggestive of infection, IV abx, follow urine culture. JOLIE- hydration as noted above, consider further gentle hydration based on AM labs. Flu A- symptomatic/supportive treatment at this time Electrolyte Derangements- replete as needed Otherwise as above.
[2023-02-20 17:27] LABS: Appearance Urine Turbid (Clear); Bacteria Urine Automated 4+ (Negative); Bilirubin Urine Negative (Negative); Blood Urine 1+ (Negative); Color Urine Yellow; Epithelial Cell Urine Auto >30 /lpf (0-5); Glucose Urine UA Negative (Negative); Ketones Urine Trace (Negative); Leukocyte Esterase Urine 3+ (Negative); Nitrite Urine Positive (Negative); Protein Urine 1+ (Negative); RBC Urine Automated 0-4 /hpf (0-4); Specific Gravity Urine 1.016 (1.000-1.030); Urobilinogen Urine Negative (Negative); WBC Urine Automated >30 /hpf (0-5)
[2023-02-20] MEDS ORDERED: PANTOPRAZOLE BOLUS/DRIP IV STA (17:38)
[2023-02-20] MEDS ORDERED: PANTOprazole 80 MG in DEXTROSE 5% 100 ML IV ONE (17:38)
[2023-02-20] MEDS: PANTOprazole 40 MG in DEXTROSE 5% MINI-B 100 ML IV SCH (20:49)
[2023-02-20] MEDS ORDERED: LANTUS PER UNIT CHARGE SQ SCH (21:00)
[2023-02-20] MEDS ORDERED: INSULIN ASPART PER UNIT CHARGE SC SCH (21:00)
[2023-02-20 21:12] LABS: Hematocrit (blood only) 26.7 % (37.0-47.0); Hemoglobin 8.6 g/dl (12.0-16.0); Mean Corpuscular Hemoglobin 29.2 pg (25.0-34.0); Mean Corpuscular Hgb Conc 32.2 g/dL (32.0-36.0); Mean Corpuscular Volume 90.5 fL (80.0-100.0); Mean Platelet Volume 10.2 fL (9.4-12.4); Platelet Count 219 K/uL (130-400); RDW Coefficient of Variation 14.3 % (11.5-14.5); RDW Standard Deviation 47.4 fL (36.4-46.3); Red Blood Count 2.95 M/uL (4.20-5.40); White Blood Count 6.66 K/ul (4.8-10.8)
[2023-02-20 21:18] LABS: Prothrombin Time 21.3 Seconds (9.0-12.0)
[2023-02-20 21:22] LABS: Potassium 4.1 mmol/L (3.5-5.1)
[2023-02-20 21:28] LABS: BUN Creatinine Ratio 46.1 (10-20); Creatinine Clr Calc Pharmacy 20.4 ml/min; Est GFR (African American) 31.8 ml/min; Est GFR (Non-African American) 27.4 ml/min
[2023-02-20] MEDS: LANTUS PER UNIT CHARGE SQ SCH (22:20)
[2023-02-20] MEDS ORDERED: Nursing to Pharmacy Communication SCH (22:45)
[2023-02-20] MEDS: METOPROLOL SUCC 50MG EXT REL TAB PO SCH (22:53)
--- OUTSIDE RECORDS SUMMARY | 2023-02-21 00:29 | External Medical Summary | Summary of Care ---
Author Name Unknown Organization [facility] Address [address] [place] [address] Phone [phone] Care Team Providers Care Product Lead Name Role Phone Priyanka Falcon MD Primary Care Prov ider Reason for Visit * Reason Comments Dosage Adjustment In Person (Anticoag Cl inic) Encounter Details Date Type Department Care Team (Latest Contact Info) Description 01/25/2023 11:50 AM EST 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 Pharm[facility], [facility] [id number] [facility] [phone] PAF (paroxysmal atrial fibrillation) ([facility])*; 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 management encounter; [facility] current use of anticoagulant therapy Allergies Active Allergy Reactions Criticality Noted Date Comments Naproxen Sodium Bleeding High 12/03/2009 Hs of GI bleed Aspirin Bleeding High 12/03/2009 Doxycycline Neuro complications (Please comment) Medium 10/23/2010 Hallucinations Ibuprofen Bleeding High 12/03/2009 Hx of GI bleed Nitrofurantoin Monohydrate Macrocrystals Neuro complications (Please comment) Low 09/16/2009 Headaches [id number] 01/25/2011 Caused eye problems Neosporin 05/30/2003 rash Sulfa Antibiotics 05/11/2002 nausea & vomiting Tramadol Hcl Unknown 12/03/2009 Triamterene 11/16/2022 ulcers documented as of this encounter (statuses as of 01/25/2023) Medications Medication Sig Dispensed Refills Start Date End Date Status [facility] VITAMIN B12 1000 MCG PO TABSIndications:Vi tamin B deficiency 1 TABLET DAILY 1 Tab 0 1 Suspended Cholecalciferol (VITAMIN D3) 1000 UNITS CAPS Take by mouth. 0 Suspended polyethylene glycol 3350 (MIRALAX) 255 gram powderIndications: Constipation, slow transit DISSOLVE 1 HEAPING TABLESPOON IN 8 OUNCES OF WATER OR JUICE DAILY NEEDED FOR CONSTIPATION 255 g 3 8 Suspended Additional Information Triamcinolone Acetonide 0.1 % External Cream (Aristocort)Indica tions:Allergic contact dermatitis due to drugs in contact with skin APPLY TO THE AFFECTED AREA 2 TIMES A DAY NEEDED FOR ITCHING 30 g 2 1 Suspended Additional Information [employer] GigTouch VerEverlaw In Vitro Strip (Glucose Blood)Indications: Type 2 diabetes mellitus with hemoglobin A1c goal of less than 7.5% (HCC) Use to test blood sugar once a day DX e11.9 100 Strip 3 2 Suspended Additional Information [employer] GigTouch Verio Flex System w/Device KitIndications:Typ e 2 diabetes mellitus with hemoglobin A1c goal of less than 7.5% (HCC) Use as directed . Use to test blood sugar Dx e11.9 1 Kit 0 2 Suspended Metoprolol Succinate ER 100 MG Oral Tablet Extended Release 24 Hour (toPROL XL)Indications:Ess ential hypertension with goal blood pressure less than 140/90 TAKE 1 TABLET BY MOUTH IN THE MORNING AND 1/2 TABLET DAILY AT BEDTIME 135 Tablet 3 2 Suspended Additional Information Zoster Vac Recomb Adjuvanted 50 MCG/0.5ML Intramuscular Suspension Reconstituted (Shingrix)Indicati ons:Need for shingles vaccine Inject 0.5 mL into a large muscle now and repeat dose in 60 to 180 days 1 Each 1 3 Suspended Additional Information Patient not taking.Reported on 01/19/2023 Lisinopril 20 MG Oral Tablet (Prinivil)Indicati ons:Essential hypertension with goal blood pressure less than 140/90,Hypertensio n goal BP (blood pressure) < 140/90 TAKE 1 TABLET BY MOUTH EVERY DAY 90 Tablet 3 3 Suspended Additional Information Docusate Sodium 100 MG Oral Capsule (Colace)Indication s:Constipation, unspecified constipation type TAKE 1 CAP BY MOUTH EVERY MORNING. CAN TAKE 1 CAP IN THE EVENING NEEDED 60 Capsule 5 3 Suspended Additional Information LORazepam 0.5 MG Oral Tablet (Ativan)Indication s:Persistent insomnia TAKE 1 TABLET BY MOUTH TWICE A DAY NEEDED FOR ANXIETY 120 Tablet 1 3 Suspended Additional Information metFORMIN HCl 500 MG Oral Tablet (Glucophage)Indica tions:Type 2 diabetes mellitus with hemoglobin A1c goal of less than 7.5% ([facility]) TAKE 1 TABLET BY MOUTH TWICE A DAY WITH BREAKFAST AND SUPPER 180 Tablet 1 3 Suspended Additional Information OneTouch Delica Plus [id number] ns:Type 2 diabetes mellitus with hemoglobin A1c goal of less than 7.5% ([facility]) Use as directed. Use to test blood sugar once a day DX e11.9 100 Each 3 3 Suspended Additional Information HYDROcodone-Acetam inophen 5-325 MG Oral TabletIndications: Bilateral low back pain without sciatica, unspecified chronicity Take 1 Tablet by mouth 2 times a day as needed for Pain, Severe. 30 Tablet 0 3 Suspended Additional Information Atorvastatin Calcium 80 MG Oral Tablet (Lipitor)Indicatio ns:Dyslipidemia, goal LDL below 70 TAKE 1 TABLET BY MOUTH EVERY DAY IN THE MORNING 90 Tablet 3 3 Suspended Additional Information Warfarin Sodium 2 MG Oral Tablet (Coumadin)Indicati ons:Atrial flutter, unspecified type ([facility]),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,[facility] current use of anticoagulant therapy,PAF (paroxysmal atrial fibrillation) ([facility]) TAKE 1-2 TABLETS BY MOUTH DAILY DIRECTED BY ANTICOAGULATION CLINIC 100 Tablet 3 3 Suspended Additional Information OneTouch Ultra In Vitro Strip (Glucose Blood)Indications: Type 2 diabetes mellitus with hemoglobin A1c goal of less than 7.0% ([facility]) USE TO TEST ONCE PER DAY. E11.9 100 Strip 5 3 Suspended Additional Information glipiZIDE ER 2.5 MG Oral Tablet Extended Release 24 Hour (Glucotrol XL)Indications:Typ e 2 diabetes mellitus with hemoglobin A1c goal of less than 7.5% ([facility]) TAKE 1 TABLET BY MOUTH DAILY 30 MINUTES BEFORE A MEAL 90 Tablet 1 3 Suspended Additional Information amLODIPine Besylate 2.5 MG Oral Tablet (Norvasc)Indicatio ns:Essential hypertension with goal blood pressure less than 140/90 TAKE 1 TABLET BY MOUTH EVERY DAY IN THE MORNING 90 Tablet 3 3 Suspended Additional Information Furosemide 40 MG Oral Tablet (Lasix) One tablet 5-6 days per week (skip Monday and Monday) 90 Tablet 3 3 Suspended Additional Information Cephalexin 500 MG Oral Capsule (Keflex) Take 1 Capsule by mouth in the morning and 1 Capsule at noon and 1 Capsule before bedtime. Do all this for 7 days. Until gone.. 21 Capsule 0 3 02/01/20 23 Suspended Additional Information documented as of this encounter (statuses as of 01/25/2023) Active Problems Problem Noted Date Diagnosed Date Typical atrial flutter 03/29/2022 Seborrheic keratosis 06/01/2021 Chronic kidney disease, stage 3a 07/21/2020 Overview: Per CKD protocol Type 2 diabetes mellitus wit h stage 3b chronic kidney disease, without long-term current use of insulin 05/28/2020 Diabetes mellitus with stage 3 chronic kidney di sease 01/20/2020 Overview: Per CKD protocol Hypertensive kidney disease with stage 3a chronic kidney disease 01/20/2020 Overview: Per CKD protocol Anemia due to stage 3a chronic kidney disease Overview: Per CKD protocol Pedal edema 08/09/2019 Arthritis of foot 05/17/2019 PAF (paroxysmal atrial fibrillation) 04/09/2019 Right carotid bruit 12/29/2018 Overview: 25% stenosis and thick plaque seen 12/2018. Recommend repeating carotid duplex in 1 year. Atrial flutter 12/29/2018 Primary osteoarthritis of left knee 04/03/2017 Essential hypertension with goal blood pressure less than 140/90 02/10/2016 Type 2 diabetes mellitus wit h hemoglobin A1c goal of less than 7.5% 06/23/2015 Overview: ICD-10 update of inactive term Low HDL (under 40) 12/25/2014 DYSLIPIDEMIA, GOAL LDL BELOW 100 02/17/2009 Overview: Per Lipid Taxonomy. Anxiety state 04/04/2008 Spinal stenosis of lumbar re gion without neurogenic claudication 03/27/2008 Paroxysmal VT 02/18/2008 History of breast cancer 02/08/2008 Generalized osteoarthritis 01/25/2008 Paroxysmal atrial tachycardia 01/14/2008 Vitamin B12 deficiency documented as of this encounter (statuses as of 01/25/2023) Resolved Problems Problem Noted Date Diagnosed Date Resolved Date Atrial flutter, unspecified type 12/27/2021 02/08/2022 Anemia due to stage 3 chronic kidney disease 9 01/23/2020 Overview: Per CKD protocol Hypertensive kidney disease with chronic kidney disease stage III 07/20/2018 01/23/2020 Overview: Per CKD protocol MEDICATION USE AGREEMENT 01/24/2017 Type 2 diabetes mellitus wit h stage 3 chronic kidney disease, without long-term current use of insulin 01/24/2017 01/23/2020 Overview: Per CKD protocol Change in stool caliber 01/24/201701/11 Chronic kidney disease (CKD) 10/27/2016 01/24/2017 Hypomagnesemia 12/23/2015 10/26/2016 ADVANCE DIRECTIVE INFORMATION 11/05/2015 01/24/2017 Overview: No, Advance Directive brochure given to patient at prior appointment. HTN, goal below 140/90 06/18/201402/09 Hypertension goal BP (blood pressure) < 140/80 09/10/2012 06/18/2014 Acute appendicitis with peritonitis 10/15/2010 04/19/2011 Acute appendicitis 09/02/2010 1 Acute appendicitis 08/26/2010 1 Kidney disease, chronic, sta ge III (GFR 30-59 ml/min) 07/08/2010 06/23/2017 Palpitations 12/03/2009 01/24/2018 Slow transit constipation 09/11/2009 HTN, goal below 130/80 02/24/200909/10 HTN, goal below 140/90 01/16/200902/24 Overview: Modified per HTN Taxonomy. Type 2 diabetes mellitus wit h hemoglobin A1c goal of less than 7.0% 01/08/2009 06/23/2015 Overview: Per Diabetes Taxonomy. ICD-10 update of inactive term Type 2 diabetes mellitus wit h hemoglobin A1c goal of less than 7.0% 03/27/2008 01/08/2009 Overview: Per Diabetes Taxonomy. ICD-10 update of inactive term HTN, goal to be determined 02/06/2008 1 04/09/2007 Other iron deficiency anemia 12/27/2007 03/04/2010 Overview: ICD-10 update of inactive term Anemia 09/11/2007 02/08/2008 Hemorrhoids, external without complications 09/17/2003 06/27/2007 DM type 2, not at goal 06/06/200303/27 LOC PRIM OSTEOART-PELVIS 10/07/2002 BENIGN HYPERTENSION 06/24/2002 01/17/20 09 Overview: Modified per HTN Taxonomy. IRON DEFIC ANEMIA NOS 06/24/20022007 Mixed dyslipidemia 06/24/2002 9 Overview: Per Lipid Taxonomy. Breast neoplasm 02/08/2008 Overview: ICD-10 update of inactive term Benign hypertensive kidney d isease with chronic kidney disease stage I through stage IV, or unspecified(403.10) 06/12/2007 Panic disorder 01/24/2017 Other cataract 06/27/2007 Kidney disease, chronic, sta ge III (GFR 30-59 ml/min) 02/25/2009 Acute duodenal ulcer with hemorrhage 02/12/2008 Atrial fibrillation 02/12/20 08 documented as of this encounter (statuses as of 01/25/2023) Immunizations Name Administration Dates Next Due COVID-19 mRNA, LNP-s, No Pre serve, 2-Dose Series (Moderna) 01/13/2021,05/16/2020,04/17/2020 COVID-19, MRNA-LNP, 23-24, P F, 50 MCG/0.5 mL, 12 YRS AND ABOVE, IM (MODERNA-Spikevax) 01/04/2023 COVID-19, mRNA, LNP-s, PF, B ooster, 100mcg/0.5mg (Moderna) 07/26/2021 Covid-19, Mrna, Lnp-s, Pf, B ivalent, 50 Mcg, IM, 12 yrs and above (Moderna) 12/27/2021 H1N1 2009 Influenza, IM 03/20/2009 Pneumococcal Conjugate Vacc, 13 Valent (Prevnar) 07/29/2014 SEASONAL INFLUENZA, PF, 6 M & Above, IM , (FLULAVAL or FLUZONE) 12/26/2017,01/11/2017 Season Influenza, Quad, PF, Adjuvanted, 65+ Yrs, IM (FLUAD) 12/12/2019 Seasonal Influenza, Quadriva lent Hd (Fluzone Hd) 11/16/2022,12/27/2021 Seasonal Influenza, Quadriva lent Hd, 65+ Yrs 01/11/2021 Seasonal Influenza, Quadriva lent, No Preserve, IM 01/04/2016,12/31/2014 Seasonal Influenza, Split, I IV3, With Preserve, Inj 12/02/2013,12/27/2012,12/21/2011,2010,12/22/2009,12/08/2008,01/11/2008,1 ,12/22/2005 Seasonal Influenza, Trivalen t, Adjuvanted, 65+ yrs 12/20/2018 TD - Tetanus/Diptheria (ADULT) 09/11/2007 Varicella Zoster Vaccine (Adult) 06/07/2010 documented as of this encounter Social History Tobacco Use Types Packs/Day Years Used Date Smoking Tobacco: Never Smokeless Tobacco: Never Alcohol Use Standard Drinks/Week Comments Yes 0 (1 standard drink = 0.6 oz pur e alcohol) occassional wine/beer- rare PHQ-2 Answer Date Recorded PHQ Adult Total Score 1 08/03/2020 Hunger Vital Sign Answer Date Recorded Worried About Running Out of Food in the Last Ye ar Never true 08/22/2019 Ran Out of Food in the Last Year Never true 08/22/2019 Sex and Gender Information Value Date Recorded Sex Assigned at Female 08/03/2020 4:05 PM EDT Gender Identity Female 08/03/2020 4:05 PM EDT Sexual Orientation Straight 08/03/2020 4: 05 PM EDT Job Start Date Occupation Industry Not on file Not on file Not on file documented as of this encounter Progress Notes * Xena Waller RPh - 01/25/2023 11:53 AM EST Images from the original note were not included. Medication Therapy Disease Management - 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 Patient: Cristine Benitez | : 1935 Subjective Patient-Reported Symptoms: Patient Findings Positives: Upcoming invasive procedure (back injection 01/25, follow insturctions as previously documented in last encounter and as reviewed with nia today) Negatives: Signs/symptoms of thrombosis, Signs/symptoms of bleeding, Change in health, Change in alcohol use, Change in activity, Missed doses, Extra doses, Change in medications, Change in diet/appetite, Bruising Objective Current Warfarin Dose As of 01/25/2023 Warfarin maintenance plan: 4 mg (2 mg x 2) every Wed; 2 mg (2 mg x 1) all other days INR Result As of 01/25/2023 INR goal: 2.0-3.0 INR used for dosin.2 (01/25/2023) Assessment & Plan Warfarin Plan As of 01/25/2023 Full warfarin instructions: 01/26: 4 mg; Otherwise 4 mg every Wed; 2 mg all other days No change documented: Xena Waller RPh Next INR check: 02/08/2023 Repeat PT/INR in 2 week(s) Weekly dose: not changed Additional Dosing Information: Description Write tablets only on card Xena Waller RPh Clinical Pharmacist 01/25/2023, 12:12 PM documented in this encounter Plan of Treatment Upcoming Encounters Date Type Department Care Team (Late st Contact Info) Description 02/08/2023 1:00 PM EST 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 Pharmacy, [address] [place] [phone] [place] [address] 02/24/2023 2:30 PM EST Office Visit Nephrology [address] [place] [address] Radha Wyman PA-C [address] [place] [address] 07/04/2023 11:30 AM EDT Office Visit Family Medicine [address] [place] [phone] [address] [place] [address] 07/27/2023 1:30 PM EDT Office Visit Cardiology [address] [place] [address] Cameron Becerra PA-C [address] [place] [address] Scheduled Procedures Name Priority Associated Diagnoses Date/Ti me INJECTION SPINE LUMBAR OR SACRAL Spinal stenosis of lumbar region with neurogenic claudication 01/25/2023 1:00 PM EST Health Maintenance Due Date Last Done Comments Hepatitis B (1 of 3 - Risk 3-dose series) 1994 Zoster Vaccines (2 of 3) 08/02/2010 06/07/2010 Depression Screening 08/03/2021 08/03/2020 Diabetic Foot Exam 02/08/2023 02/08/2022, 0 05/28/2020, 05/17/2019, Additional history exists Diabetic Eye Exam 03/15/2023 03/15/2022, , 11/03/2020, Additional history exists HbA1c 07/20/2023 01/19/2023, 09/08/2022, 12/03/2021, Additional history exists Albumin/Creatinine Ratio 11/17/2023 023, 03/29/2022, 01/06/2021, Additional history exists CKD HGB USE SMARTSET 07263 11/17/202311/16, 11/16/2022, 12/03/2021, Additional history exists CKD PHOS USE SMARTSET 07727 01/20/2024 11/0 11/2022, 11/21/2022, 01/06/2021, Additional history exists DXA Scan 12/09/2027 12/08/2020, 05/12, 05/30/2008 DTaP,Tdap,and Td Vaccines (2 - Td or Tdap) 11/28/2029 11/29/2019 (Declined), 09/11/2007 Pneumococcal Vaccine: 65+ Years Completed 07/29/2014, 10/07/2002 Influenza Vaccine (FLU shot) Completed 08/2022, 12/27/2021, 01/11/2021, Additional history exists COVID-19 Vaccine Completed 01/04/2023, , 07/26/2021, Additional history exists GARDASIL-HPV IMMUNIZATION SERIES Aged Out No longer eligible based on patient's age to complete this topic MENINGOCOCCAL (MENACTRA/MENVEO) Aged Out No longer eligible based on patient's age to complete this topic documented as of this encounter Medical Devices Not on filedocumented as of this encounter Procedures Procedure Name Priority Date/Time Associated Diagnosis Comments INR FINGERSTICK, POINT OF CARE STAT 01/25/2023 11:57 AM EST PAF (paroxysmal atrial fibrillation) (HCC) 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 management encounter [facility] current use of anticoagulant therapy documented in this encounter Results * INR FINGERSTICK, POINT OF CARE (01/25/2023 11:57 AM EST) Fingerstick INR 1.2 INR 12:09 PM EST [facility] Blood 01/25/2023 11:5 7 AM EST 01/25/2023 12:09 PM EST Narrative [facility] - 01/25/2023 12:09 PM EST Therapeutic ranges for non-operative patients: Prophylaxsis/treatment of DVT: (Range:2.0-3.0) Treatment of pulmonary embolism:(Range:2.0-3.0) Prevention of systemic embolism from: -tissue heart valves -acute myocardial infarction -valvular heart disease -atrial fibrillation (Range: 2.0-3.0) Mechanical prosthetic valves: (Range: 2.5-3.5) Freda Curtis [facility] POINT OF CARE TEST DOCKED DEVICE UNSOLICITED RESULTS [facility] [address] [facility] [place] [phone] documented in this encounter Visit Diagnoses Diagnosis PAF (paroxysmal atrial fibrillation) (HCC)- Primary Atrial fibrillation 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 management encounter 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
--- OUTSIDE RECORDS SUMMARY | 2023-02-21 00:29 | External Medical Summary | Summary of Care ---
Author Name Unknown Organization [facility] Address [address] [place] [address] Phone [phone] Care Team Providers Care Clay Digger Name Role Phone Priyanka Falcon MD Primary Care Prov ider Reason for Visit * Reason Comments Dosage Adjustment In Person (Anticoag Cl inic) Encounter Details Date Type Department Care Team (Latest Contact Info) Description 02/08/2023 1:00 PM [facility] 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 Pharmacy, [address] [place] [phone] [place] [address] PAF (paroxysmal atrial fibrillation) ([facility])*; 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 management encounter; 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 Allergies Active Allergy Reactions Criticality Noted Date Comments Naproxen Sodium Bleeding High 12/03/2009 Hs of GI bleed Aspirin Bleeding High 12/03/2009 Doxycycline Neuro complications (Please comment) Medium 10/23/2010 Hallucinations Ibuprofen Bleeding High 12/03/2009 Hx of GI bleed Nitrofurantoin Monohydrate Macrocrystals Neuro complications (Please comment) Low 09/16/2009 Headaches [id number]-Vjdasztwj-Px 01/25/2011 Caused eye problems Neosporin 05/30/2003 rash Sulfa Antibiotics 05/11/2002 nausea & vomiting Tramadol Hcl Unknown 12/03/2009 Triamterene 11/16/2022 ulcers documented as of this encounter (statuses as of 02/08/2023) Medications Medication Sig Dispensed Refills Start Date End Date Status [facility] VITAMIN B12 1000 MCG PO TABSIndications:Vi tamin B deficiency 1 TABLET DAILY 1 Tab 0 04/27/2010 Active Cholecalciferol (VITAMIN D3) 1000 UNITS CAPS Take by mouth. 0 Active polyethylene glycol 3350 (MIRALAX) 255 gram powderIndications: Constipation, slow transit DISSOLVE 1 HEAPING TABLESPOON IN 8 OUNCES OF WATER OR JUICE DAILY NEEDED FOR CONSTIPATION 255 g 3 06/13/2017 Active Triamcinolone Acetonide 0.1 % External Cream (Aristocort)Indica tions:Allergic contact dermatitis due to drugs in contact with skin APPLY TO THE AFFECTED AREA 2 TIMES A DAY NEEDED FOR ITCHING 30 g 2 05/28/2020 Active LemonQuestTouch Verio In Vitro Strip (Glucose Blood)Indications: Type 2 diabetes mellitus with hemoglobin A1c goal of less than 7.5% ([facility]) Use to test blood sugar once a day DX e11.9 100 Strip 3 05/14/2021 Active LemonQuestTouch Verio Flex System w/Device KitIndications:Typ e 2 diabetes mellitus with hemoglobin A1c goal of less than 7.5% ([facility]) Use as directed . Use to test blood sugar Dx e11.9 1 Kit 0 05/14/2021 Active Metoprolol Succinate ER 100 MG Oral Tablet Extended Release 24 Hour (toPROL XL)Indications:Ess ential hypertension with goal blood pressure less than 140/90 TAKE 1 TABLET BY MOUTH IN THE MORNING AND 1/2 TABLET DAILY AT BEDTIME 135 Tablet 3 02/13/2022 Active Zoster Vac Recomb Adjuvanted 50 MCG/0.5ML Intramuscular Suspension Reconstituted (Shingrix)Indicati ons:Need for shingles vaccine Inject 0.5 mL into a large muscle now and repeat dose in 60 to 180 days 1 Each 1 03/29/2022 Active Additional Information Patient not taking.Reported on 01/19/2023 Lisinopril 20 MG Oral Tablet (Prinivil)Indicati ons:Essential hypertension with goal blood pressure less than 140/90,Hypertensio n goal BP (blood pressure) < 140/90 TAKE 1 TABLET BY MOUTH EVERY DAY 90 Tablet 3 08/19/2022 Active Docusate Sodium 100 MG Oral Capsule (Colace)Indication s:Constipation, unspecified constipation type TAKE 1 CAP BY MOUTH EVERY MORNING. CAN TAKE 1 CAP IN THE EVENING NEEDED 60 Capsule 5 08/25/2022 Active LORazepam 0.5 MG Oral Tablet (Ativan)Indication s:Persistent insomnia TAKE 1 TABLET BY MOUTH TWICE A DAY NEEDED FOR ANXIETY 120 Tablet 1 08/25/2022 Active metFORMIN HCl 500 MG Oral Tablet (Glucophage)Indica tions:Type 2 diabetes mellitus with hemoglobin A1c goal of less than 7.5% ([facility]) TAKE 1 TABLET BY MOUTH TWICE A DAY WITH BREAKFAST AND SUPPER 180 Tablet 1 09/08/2022 Active OneTouch Delica Plus [id number] ns:Type 2 diabetes mellitus with hemoglobin A1c goal of less than 7.5% (HCC) Use as directed. Use to test blood sugar once a day DX e11.9 100 Each 3 09/10/2022 Active HYDROcodone-Acetam inophen 5-325 MG Oral TabletIndications: Bilateral low back pain without sciatica, unspecified chronicity Take 1 Tablet by mouth 2 times a day as needed for Pain, Severe. 30 Tablet 0 11/18/2022 Active Atorvastatin Calcium 80 MG Oral Tablet (Lipitor)Indicatio ns:Dyslipidemia, goal LDL below 70 TAKE 1 TABLET BY MOUTH EVERY DAY IN THE MORNING 90 Tablet 3 11/21/2022 Active Warfarin Sodium 2 MG Oral Tablet (Coumadin)Indicati ons:Atrial flutter, unspecified type ([facility]),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,senior care current use of anticoagulant therapy,PAF (paroxysmal atrial fibrillation) ([facility]) TAKE 1-2 TABLETS BY MOUTH DAILY DIRECTED BY ANTICOAGULATION CLINIC 100 Tablet 3 12/05/2022 Active OneTouch Ultra In Vitro Strip (Glucose Blood)Indications: Type 2 diabetes mellitus with hemoglobin A1c goal of less than 7.0% ([facility]) USE TO TEST ONCE PER DAY. E11.9 100 Strip 5 12/08/2022 Active glipiZIDE ER 2.5 MG Oral Tablet Extended Release 24 Hour (Glucotrol XL)Indications:Typ e 2 diabetes mellitus with hemoglobin A1c goal of less than 7.5% (HCC) TAKE 1 TABLET BY MOUTH DAILY 30 MINUTES BEFORE A MEAL 90 Tablet 1 12/26/2022 Active amLODIPine Besylate 2.5 MG Oral Tablet (Norvasc)Indicatio ns:Essential hypertension with goal blood pressure less than 140/90 TAKE 1 TABLET BY MOUTH EVERY DAY IN THE MORNING 90 Tablet 3 12/29/2022 Active Furosemide 40 MG Oral Tablet (Lasix) One tablet 5-6 days per week (skip Monday and Monday) 90 Tablet 3 01/19/2023 Active documented as of this encounter (statuses as of 02/08/2023) Active Problems Problem Noted Date Diagnosed Date [...] as of this encounter (statuses as of 02/08/2023) Resolved Problems Problem Noted Date Diagnosed Date [...] as of this encounter (statuses as of 02/08/2023) Immunizations Name Administration Dates Next Due COVID-19 [...] as of this encounter Progress Notes * Freda Curtis, [facility] - 02/08/2023 12:49 PM EST Medication Therapy Disease Management - 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 Patient: Cristine Benitez | : 1935 Subjective Patient-Reported Symptoms: Patient Findings Negatives: Signs/symptoms of thrombosis, Signs/symptoms of bleeding, Change in health, Change in alcohol use, Change in activity, Upcoming invasive procedure, Missed doses, Extra doses, Change in medications, Change in diet/appetite, Bruising Objective Current Warfarin Dose As of 02/08/2023 Warfarin maintenance plan: 4 mg (2 mg x 2) every Wed; 2 mg (2 mg x 1) all other days INR Result As of 02/08/2023 INR goal: 2.0-3.0 INR used for dosin.6 (02/08/2023) Assessment & Plan Warfarin Plan As of 02/08/2023 Full warfarin instructions: 4 mg every Wed; 2 mg all other days No change documented: Freda Curtis RPh Next INR check: 03/08/2023 Repeat PT/INR in 4 week(s) Weekly dose: not changed Additional Dosing Information: Reports previous procedure went well and without issue. Description Write tablets only on card Freda Curtis RPh Clinical Pharmacist 02/08/2023, 12:49 PM documented in this encounter Plan of Treatment Upcoming Encounters Date Type Department Care Team (Late st Contact Info) Description 02/24/2023 2:30 PM EST Office Visit Nephrology [address] [place] [address] Radha Wyman PA-C [address] [facility] [place] [address] 03/08/2023 2:00 PM EST 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 Pharmacy, [address] [place] [address] [place] [address] 07/04/2023 11:30 AM EDT Office Visit Family Medicine [address] [place] [phone] [place] [address] 07/27/2023 1:30 PM EDT Office Visit Cardiology [address] [place] [address] Cameron Becerra PA-C [address] [place] [address] Health Maintenance Due Date Last Done Comments Hepatitis B (1 of 3 - Risk 3-dose series) 1994 Zoster Vaccines (2 of 3) 08/02/2010 06/07/2010 Depression Screening 08/03/2021 08/03/2020 Diabetic Foot Exam 02/08/2023 02/08/2022, 0 05/28/2020, 05/17/2019, Additional history exists Diabetic Eye Exam 03/15/2023 03/15/2022, , 11/03/2020, Additional history exists HbA1c 07/20/2023 01/19/2023, 0908/2022, 12/03/2021, Additional history exists Albumin/Creatinine Ratio 11/17/2023 023, 03/29/2022, 01/06/2021, Additional history exists CKD HGB USE SMARTSET 45633 11/17/202311/16, 11/16/2022, 12/03/2021, Additional history exists CKD PHOS USE SMARTSET 26151 01/20/2024 110 11/2022, 11/21/2022, 01/06/2021, Additional history exists DXA [...] Comments INR FINGERSTICK, POINT OF CARE STAT 02/08/2023 1:01 PM EST PAF (paroxysmal atrial fibrillation) (HCC) 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 management encounter senior care current use of anticoagulant therapy documented in this encounter Results * INR FINGERSTICK, POINT OF CARE (02/08/2023 1:01 PM EST) Fingerstick INR 2.6 INR 1:03 PM EST [facility] Blood 02/08/2023 1:01 PM EST 02/08/2023 1:03 PM EST Narrative [facility] - 02/08/2023 1:03 PM EST Therapeutic ranges for non-operative patients: Prophylaxsis/treatment of DVT: (Range:2.0-3.0) Treatment of pulmonary embolism:(Range:2.0-3.0) Prevention of systemic embolism from: -tissue heart valves -acute myocardial infarction -valvular heart disease -atrial fibrillation (Range: 2.0-3.0) Mechanical prosthetic valves: (Range: 2.5-3.5) Freda Curtis [facility] POINT OF CARE TEST DOCKED DEVICE UNSOLICITED RESULTS [facility] [place] [address] [place] [address] documented in this encounter Visit Diagnoses Diagnosis PAF (paroxysmal atrial fibrillation) (HCC)- Primary Atrial fibrillation 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 management encounter Encounter for therapeutic drug monitoring senior care current use of anticoagulant therapy documented in this encounter Care Teams Clay Digger Relationship Specialty Start Date End Date Priaynka Falcon MD [address] [place] [address] [place] [phone] PCP - General Family Medicine 01/04/19 documented as of this encounter"
--- OUTSIDE RECORDS SUMMARY | 2023-02-21 00:29 | External Medical Summary | Summary of Care ---
Author Name Unknown Organization [facility] Address [address] [place] [address] Phone [phone] Care Team Providers Care Safety Grooving Machine Operator Name Role Phone Sailaja Garland MD Primary Care Prov ider Reason for Visit * Reason Comments eRx-Medication Refill Encounter Details Date Type Department Care Team (Late st Contact Info) Description 02/15/2023 Refill Family Medicine [address] [phone] Sailaja Garland MD [address] [place] [address] [place] [address] Essential hypertension with goal blood pressure less than 140/90 Allergies Active Allergy Reactions Criticality Noted Date Comments Naproxen Sodium Bleeding High 12/03/2009 Hs of GI bleed Aspirin Bleeding High 12/03/2009 Doxycycline Neuro complications (Please comment) Medium 10/23/2010 Hallucinations Ibuprofen Bleeding High 12/03/2009 Hx of GI bleed Nitrofurantoin Monohydrate Macrocrystals Neuro complications (Please comment) Low 09/16/2009 Headaches [id number]-Ocjvrmugv-Lm 01/25/2011 Caused eye problems Neosporin 05/30/2003 rash Sulfa Antibiotics 05/11/2002 nausea & vomiting Tramadol Hcl Unknown 12/03/2009 Triamterene 11/16/2022 ulcers documented as of this encounter (statuses as of 02/15/2023) Medications Medication Sig Dispensed Refills Start Date End Date Status [facility] VITAMIN B12 1000 MCG PO TABSIndications:V itamin B deficiency 1 TABLET DAILY 1 Tab 0 02/15/20 11 Active Cholecalciferol (VITAMIN D3) 1000 UNITS CAPS Take by mouth. 0 Active polyethylene glycol 3350 (MIRALAX) 255 gram powderIndications :Constipation, slow transit DISSOLVE 1 HEAPING TABLESPOON IN 8 OUNCES OF WATER OR JUICE DAILY NEEDED FOR CONSTIPATION 255 g 3 06/14/19 18 Active Triamcinolone Acetonide 0.1 % External Cream (Aristocort)Indic ations:Allergic contact dermatitis due to drugs in contact with skin APPLY TO THE AFFECTED AREA 2 TIMES A DAY NEEDED FOR ITCHING 30 g 2 05/29/19 21 Active Intervention InsightsTouch Verio In Vitro Strip (Glucose Blood)Indications :Type 2 diabetes mellitus with hemoglobin A1c goal of less than 7.5% (HCC) Use to test blood sugar once a day DX e11.9 100 Strip 3 05/15/19 22 Active OneTouch Verio Flex System w/Device KitIndications:Ty pe 2 diabetes mellitus with hemoglobin A1c goal of less than 7.5% (HCC) Use as directed . Use to test blood sugar Dx e11.9 1 Kit 0 05/15/19 22 Active Zoster Vac Recomb Adjuvanted 50 MCG/0.5ML Intramuscular Suspension Reconstituted (Shingrix)Indicat ions:Need for shingles vaccine Inject 0.5 mL into a large muscle now and repeat dose in 60 to 180 days 1 Each 1 03/29/19 23 Active Additional Information Patient not taking.Reported on 01/19/2023 Lisinopril 20 MG Oral Tablet (Prinivil)Indicat ions:Essential hypertension with goal blood pressure less than 140/90,Hypertensi on goal BP (blood pressure) < 140/90 TAKE 1 TABLET BY MOUTH EVERY DAY 90 Tablet 3 08/20/19 23 Active Docusate Sodium 100 MG Oral Capsule (Colace)Indicatio ns:Constipation, unspecified constipation type TAKE 1 CAP BY MOUTH EVERY MORNING. CAN TAKE 1 CAP IN THE EVENING NEEDED 60 Capsule 5 08/26/19 23 Active LORazepam 0.5 MG Oral Tablet (Ativan)Indicatio ns:Persistent insomnia TAKE 1 TABLET BY MOUTH TWICE A DAY NEEDED FOR ANXIETY 120 Tablet 1 08/26/19 23 Active metFORMIN HCl 500 MG Oral Tablet (Glucophage)Indic ations:Type 2 diabetes mellitus with hemoglobin A1c goal of less than 7.5% (HCC) TAKE 1 TABLET BY MOUTH TWICE A DAY WITH BREAKFAST AND SUPPER 180 Tablet 1 09/09/19 23 Active OneTouch Delica Plus [id number] ons:Type 2 diabetes mellitus with hemoglobin A1c goal of less than 7.5% ([facility]) Use as directed. Use to test blood sugar once a day DX e11.9 100 Each 3 09/11/19 23 Active HYDROcodone-Aceta minophen 5-325 MG Oral TabletIndications :Bilateral low back pain without sciatica, unspecified chronicity Take 1 Tablet by mouth 2 times a day as needed for Pain, Severe. 30 Tablet 0 11/19/19 23 Active Atorvastatin Calcium 80 MG Oral Tablet (Lipitor)Indicati ons:Dyslipidemia, goal LDL below 70 TAKE 1 TABLET BY MOUTH EVERY DAY IN THE MORNING 90 Tablet 3 11/22/19 23 Active Warfarin Sodium 2 MG Oral Tablet (Coumadin)Indicat ions:Atrial flutter, unspecified type ([facility]),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 management encounter,[facility] current use of anticoagulant therapy,PAF (paroxysmal atrial fibrillation) ([facility]) TAKE 1-2 TABLETS BY MOUTH DAILY DIRECTED BY ANTICOAGULATION CLINIC 100 Tablet 3 12/06/19 23 Active OneTouch Ultra In Vitro Strip (Glucose Blood)Indications :Type 2 diabetes mellitus with hemoglobin A1c goal of less than 7.0% ([facility]) USE TO TEST ONCE PER DAY. E11.9 100 Strip 5 12/09/19 23 Active glipiZIDE ER 2.5 MG Oral Tablet Extended Release 24 Hour (Glucotrol XL)Indications:Ty pe 2 diabetes mellitus with hemoglobin A1c goal of less than 7.5% ([facility]) TAKE 1 TABLET BY MOUTH DAILY 30 MINUTES BEFORE A MEAL 90 Tablet 1 12/27/19 23 Active amLODIPine Besylate 2.5 MG Oral Tablet (Norvasc)Indicati ons:Essential hypertension with goal blood pressure less than 140/90 TAKE 1 TABLET BY MOUTH EVERY DAY IN THE MORNING 90 Tablet 3 12/30/19 23 Active Furosemide 40 MG Oral Tablet (Lasix) One tablet 5-6 days per week (skip Monday and Monday) 90 Tablet 3 01/20/20 23 Active Metoprolol Succinate ER 100 MG Oral Tablet Extended Release 24 Hour (toPROL XL)Indications:Es sential hypertension with goal blood pressure less than 140/90 TAKE 1 TABLET BY MOUTH IN THE MORNING AND 1/2 TABLET DAILY AT BEDTIME 135 Tablet 1 02/16/20 23 Active Metoprolol Succinate ER 100 MG Oral Tablet Extended Release 24 Hour (toPROL XL)Indications:Es sential hypertension with goal blood pressure less than 140/90 TAKE 1 TABLET BY MOUTH IN THE MORNING AND 1/2 TABLET DAILY AT BEDTIME 135 Tablet 3 02/14/20 22 023 Discontinued documented as of this encounter (statuses as of 02/15/2023) Active Problems Problem Noted Date Diagnosed Date [...] as of this encounter (statuses as of 02/15/2023) Resolved Problems Problem Noted Date Diagnosed Date [...] as of this encounter (statuses as of 02/15/2023) Immunizations Name Administration Dates Next Due COVID-19 [...] on file documented as of this encounter Miscellaneous Notes * Telephone Encounter - Dawit Hicks [facility] - 02/15/2023 12:31 PM ESTSigned Prescriptions: Disp Refills Metoprolol Succinate ER 100 MG Oral Tablet*135 Ta*1 Sig: TAKE 1 TABLET BY MOUTH IN THE MORNING AND 1/2 TABLET DAILY AT BEDTIMEAuthorizing Provider: SAILAJA GARLAND User: DAWIT HICKS documented in this encounter Plan of Treatment Upcoming Encounters Date Type Department Care Team (Late st Contact Info) Description 02/24/2023 2:30 PM EST Office Visit Nephrology [address] [place] [address] Radha Wyman PA-C [address] [facility] [place] [address] 03/08/2023 2:00 PM EST 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 Pharmacy, [address] [place] [address] [place] [address] 07/04/2023 11:30 AM EDT Office Visit Family Medicine [address] [place] [phone] Liliane [address] [place] [address] 07/27/2023 1:30 PM EDT Office Visit Cardiology [address] [place] [address] Cameron Becerra PA-C [address] [place] [address] Health Maintenance Due Date Last Done Comments Hepatitis B (1 of 3 - Risk 3-dose series) 1994 Zoster Vaccines (2 of 3) 08/02/2010 06/07/2010 Depression Screening 08/03/2021 08/03/2020 Diabetic Foot Exam 02/08/2023 02/08/2022, 0 05/28/2020, 05/17/2019, Additional history exists Diabetic Eye Exam 03/15/2023 03/15/2022, , 11/03/2020, Additional history exists HbA1c 07/20/2023 01/19/2023, 08/2022, 12/03/2021, Additional history exists Albumin/Creatinine Ratio 11/17/2023 023, 03/29/2022, 01/06/2021, Additional history exists CKD HGB USE SMARTSET 29191 11/17/202311/16, 11/16/2022, 12/03/2021, Additional history exists CKD PHOS USE SMARTSET 79934 01/20/20240 11/2022, 11/21/2022, 01/06/2021, Additional history exists DXA [...] Not on filedocumented as of this encounter Visit Diagnoses Diagnosis Essential hypertension with goal blood pressure less than 140/90 documented in this encounter Care Teams Safety 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
--- OUTSIDE RECORDS SUMMARY | 2023-02-21 00:29 | External Medical Summary ---
Author Name Unknown Address Unknown Organization : Laboratory Report Ordering Provider Test Date Status ZURDO LUNA 02/08/2023 13:01:32 Final Therapeutic ranges for non-o perative patients:
Prophylaxsis/treatment of DVT: (Range:2.0-3.0)
Treatment of pulmonary embolism:(Range:2.0-3.0)
Prevention of systemic embolism from:
-tissue heart valves
-acute myocardial infarction
-valvular heart disease
-atrial fibrillation
(Range: 2.0-3.0)
Mechanical prosthetic valves: (Range: 2.5-3.5) Observation Date Value Abnormality Reference (Units ) Status INR in Capillary blood by Coagulation assay 02/08/2023 13:01:32 2.6 (INR) Final Performing Location
--- OUTSIDE RECORDS SUMMARY | 2023-02-21 00:29 | External Medical Summary ---
Author Name Unknown Address Unknown Organization [id number][facility] [facility] [address] [place] [id number] Laboratory Report Ordering Provider Test Date Status ZURDO LUNA 01/25/2023 11:57:07 Final Therapeutic ranges for non-o perative patients:
Prophylaxsis/treatment of DVT: (Range:2.0-3.0)
Treatment of pulmonary embolism:(Range:2.0-3.0)
Prevention of systemic embolism from:
-tissue heart valves
-acute myocardial infarction
-valvular heart disease
-atrial fibrillation
(Range: 2.0-3.0)
Mechanical prosthetic valves: (Range: 2.5-3.5) Observation Date Value Abnormality Reference (Units ) Status INR in Capillary blood by Coagulation assay 01/25/2023 11:57:07 1.2 (INR) Final Performing Location [facility] [address] [place] [id number]
--- OUTSIDE RECORDS SUMMARY | 2023-02-21 00:29 | External Medical Summary | Summary of Care ---
Author Name Unknown Organization [facility] Address [address] [place] [address] Phone [phone] Care Team Providers Care Client Advisor Name Role Phone Priyanka Falcon MD Primary Care Prov ider Reason for Visit * Auth/Cert Specialty Diagnoses / Procedures Referred By Contac t Referred To Contact Diagnoses Spinal stenosis of lumbar region with neurogenic claudication Spinal stenosis of lumbar region with neurogenic claudication [M48.062] Procedures INJECT DX/THER SUBSTANCE INTERLAMINAR LUMBAR/SACRAL W IMAGE GUIDE INJECTION SPINE LUMBAR OR SACRAL Referral ID Status Reason Start Date Expiration Date Visits Re quested Visits Authorized [id number] Encounter Details Date Type Department Care Team (Latest Contact Info) Description 01/25/2023 12:10 PM EST - 01/25/2023 12:54 PM EST Hospital Encounter OR [facility], Operating Room [facility] [address] [place] [phone] Cousins, Andrey Caal, [address] [place] [address] Discharge Disposition: Home - Self Care Allergies Active Allergy Reactions Criticality Noted Date Comments Naproxen Sodium Bleeding High 12/03/2009 Hs of GI bleed Aspirin Bleeding High 12/03/2009 Doxycycline Neuro complications (Please comment) Medium 10/23/2010 Hallucinations Ibuprofen Bleeding High 12/03/2009 Hx of GI bleed Nitrofurantoin Monohydrate Macrocrystals Neuro complications (Please comment) Low 09/16/2009 Headaches Oejmlduz-Fekgkitcz-Lq 01/25/2011 Caused eye problems Neosporin 05/30/2003 rash Sulfa Antibiotics 05/11/2002 nausea & vomiting Tramadol Hcl Unknown 12/03/2009 Triamterene 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 0 Active polyethylene glycol 3350 (MIRALAX) 255 gram powderIndications:C onstipation, slow transit DISSOLVE 1 HEAPING TABLESPOON IN 8 OUNCES OF WATER OR JUICE DAILY NEEDED FOR CONSTIPATION 255 g 3 06/13/2017 Active Triamcinolone Acetonide 0.1 % External Cream (Aristocort)Indicat ions:Allergic contact dermatitis due to drugs in contact with skin APPLY TO THE AFFECTED AREA 2 TIMES A DAY NEEDED FOR ITCHING 30 g 2 05/28/2020 Active [employer] Verio In Vitro Strip (Glucose Blood)Indications:T ype 2 diabetes mellitus with hemoglobin A1c goal of less than 7.5% (HCC) Use to test blood sugar once a day DX e11.9 100 Strip 3 05/14/2021 Active [employer] Verio Flex System w/Device KitIndications:Type 2 diabetes mellitus with hemoglobin A1c goal of less than 7.5% (HCC) Use as directed . Use to test blood sugar Dx e11.9 1 Kit 0 05/14/2021 Active Metoprolol Succinate ER 100 MG Oral Tablet Extended Release 24 Hour (toPROL XL)Indications:Esse ntial hypertension with goal blood pressure less than 140/90 TAKE 1 TABLET BY MOUTH IN THE MORNING AND 1/2 TABLET DAILY AT BEDTIME 135 Tablet 3 02/13/2022 Active Zoster Vac Recomb Adjuvanted 50 MCG/0.5ML Intramuscular Suspension Reconstituted (Shingrix)Laura ns:Need for shingles vaccine Inject 0.5 mL into a large muscle now and repeat dose in 60 to 180 days 1 Each 1 03/29/2022 Active Additional Information Patient not taking.Reported on 01/19/2023 Lisinopril 20 MG Oral Tablet (Prinivil)Laura ns:Essential hypertension with goal blood pressure less than 140/90,Hypertension goal BP (blood pressure) < 140/90 TAKE 1 TABLET BY MOUTH EVERY DAY 90 Tablet 3 08/19/2022 Active Docusate Sodium 100 MG Oral Capsule (Colace)Indications :Constipation, unspecified constipation type TAKE 1 CAP BY MOUTH EVERY MORNING. CAN TAKE 1 CAP IN THE EVENING NEEDED 60 Capsule 5 08/25/2022 Active LORazepam 0.5 MG Oral Tablet (Ativan)Indications :Persistent insomnia TAKE 1 TABLET BY MOUTH TWICE A DAY NEEDED FOR ANXIETY 120 Tablet 1 08/25/2022 Active metFORMIN HCl 500 MG Oral Tablet (Glucophage)Indicat ions:Type 2 diabetes mellitus with hemoglobin A1c goal of less than 7.5% (HCC) TAKE 1 TABLET BY MOUTH TWICE A DAY WITH BREAKFAST AND SUPPER 180 Tablet 1 09/08/2022 Active OneTouch Delica Plus [id number] s:Type 2 diabetes mellitus with hemoglobin A1c goal of less than 7.5% (HCC) Use as directed. Use to test blood sugar once a day DX e11.9 100 Each 3 09/10/2022 Active HYDROcodone-Acetami nophen 5-325 MG Oral TabletIndications:B ilateral low back pain without sciatica, unspecified chronicity Take 1 Tablet by mouth 2 times a day as needed for Pain, Severe. 30 Tablet 0 11/18/2022 Active Atorvastatin Calcium 80 MG Oral Tablet (Lipitor)Indication s:Dyslipidemia, goal LDL below 70 TAKE 1 TABLET BY MOUTH EVERY DAY IN THE MORNING 90 Tablet 3 11/21/2022 Active glipiZIDE ER 2.5 MG Oral Tablet Extended Release 24 Hour (Glucotrol XL)Indications:Type 2 diabetes mellitus with hemoglobin A1c goal of less than 7.5% (HCC) TAKE 1 TABLET BY MOUTH DAILY 30 MINUTES BEFORE A MEAL 90 Tablet 1 12/26/2022 Active amLODIPine Besylate 2.5 MG Oral Tablet (Norvasc)Indication s:Essential hypertension with goal blood pressure less than 140/90 TAKE 1 TABLET BY MOUTH EVERY DAY IN THE MORNING 90 Tablet 3 12/29/2022 Active Furosemide 40 MG Oral Tablet (Lasix) One tablet 5-6 days per week (skip Monday and Monday) 90 Tablet 3 01/19/2023 Active Cephalexin 500 MG Oral Capsule (Keflex) Take 1 Capsule by mouth in the morning and 1 Capsule at noon and 1 Capsule before bedtime. Do all this for 7 days. Until gone.. 21 Capsule 0 01/24/2023 Active documented as of this encounter (statuses as of 01/26/2023) Active Problems Problem Noted Date Diagnosed Date [...] as of this encounter (statuses as of 01/26/2023) Resolved Problems Problem Noted Date Diagnosed Date [...] as of this encounter (statuses as of 01/26/2023) Immunizations Name Administration Dates Next Due COVID-19 [...] on file documented as of this encounter Last Filed Vital Signs Vital Sign Reading Time Taken Comments Blood Pressure 117/46 01/25/2023 12:49 PM EST Pulse 83 01/25/2023 12:49 PM EST Temperature 36.1 C (96.9 F) 01/25/2023 12:[address] Respiratory Rate 16 01/25/2023 12:49 PM EST Oxygen Saturation 99% 01/25/2023 12:49 PM EST Inhaled Oxygen Concentration - - Weight - - Height - - Body Mass Index - - documented in this encounter Discharge Instructions * Discharge Instr - AVS* Andrey Still DO - 01/25/2023 12:43 PM EST [facility] [address] [place] [address] Discharge Date: 01/25/2023 You may call [facility] at [phone] during business hours. For after-hours emergencies call [phone]. Your attending physician at the time of your discharge was: Andrey Still DO [address] [place] [address] The information below provides you with the instructions and the list of medications you need to betaking following discharge from the hospital. If you have any questions, please ask before leaving.Please carry this letter with you when you see your doctor in the clinic. Diet: Resume your normal diet If you are diabetic, follow your blood sugars closely for next 2-3 days as they are likely to be elevated. If you are having difficulty controlling your blood sugars call your family doctor or the physician that treats your diabetes. Activity: Do not engage in strenuous activity today Resume your normal activities tomorrow Do not soak in water for 24 hours. No swimming, hot tub or bath but showering is allowed. Do not use heat on the injection site for 24 hours. If uncomfortable ice may be helpful. Some injections may make your arms or legs weak for a few hours. Be extremely careful when walking or changing positions that you do not fall. Have someone assist you for the next 6 hours. If weakness or numbness becomes progressive CALL IMMEDIATELY or GO TO THE NEAREST EMERGENCY ROOM Keep a diary of your pain until seen in the office to help us determine how effective the injectionwas Do not restart physical therapy or chiropractic manipulation until 48 hours after your injection Call : If weakness or numbness suddenly becomes worse or become progressive If the injection site becomes red, swollen, warm to the touch, begins to bleed or drain fluid, or is excessively painful. If you have any questions Medications: Resume all the medications you were taking prior to your injection. Resume your anticoagulants tomorrow unless otherwise instructed by your family physician, theoretical physics teacher or the anticoagulation clinic. Additional Instructions: Driving: . Date you may return to work or school: Follow Up: Call [phone] in 4 weeks. documented in this encounter Progress Notes * Andrey Still DO - 01/25/2023 12:43 PM EST [facility] [address] [id number] OUTPATIENT SURGERY DISCHARGE SUMMARY NOTE Name: Cristine Benitez Location: OR [facility]/OR Date: 01/25/2023 Time: 12:43 PM Surgery Date: 01/25/2023 Procedure: Procedure(s): INJECTION SPINE LUMBAR OR SACRAL No laterality found for procedure #1 Surgeon: Surgeon(s): Andrey Still DO Discharge Diagnosis: Lumbar spinal stenosis After examination of this patient, I have determined she is ready for discharge to home when the patient meets criteria. Discharge instructions were given to the patient. documented in this encounter H&P Notes * Andrey Still DO - 01/24/2023 1:39 PM EST Interventional Pain Pre-Procedure Assessment Name:Cristine Benitez Date:01/24/2023 Time:1:40 PM Procedure(s): Caudal epidural steroid injection Diagnosis: Lumbar spinal stenosis Pre-Procedure Assessment: Prior to the procedure, the patient was identified. The patient's history, medications and allergies were reviewed . The patient is competent. The risks and benefits of the proposed procedure and theplanned sedation were discussed with the patient. All questions were answered and informed consent for the procedure was obtained. Prior to Admission medications Medication Sig Last Dose Discont. Cephalexin 500 MG Oral Capsule (Keflex) Take 1 Capsule by mouth in the morning and 1 Capsule at noon and 1 Capsule before bedtime. Do all this for 7 days. Until gone.. Furosemide 40 MG Oral Tablet (Lasix) One tablet 5-6 days per week (skip Monday and Monday) amLODIPine Besylate 2.5 MG Oral Tablet (Norvasc) TAKE 1 TABLET BY MOUTH EVERY DAY IN THE MORNING glipiZIDE ER 2.5 MG Oral Tablet Extended Release 24 Hour (Glucotrol XL) TAKE 1 TABLET BY MOUTH DAILY 30 MINUTES BEFORE A MEAL OneTouch Ultra In Vitro Strip (Glucose Blood) USE TO TEST ONCE PER DAY. E11.9 Warfarin Sodium 2 MG Oral Tablet (Coumadin) TAKE 1-2 TABLETS BY MOUTH DAILY DIRECTED BY ANTICOAGULATION CLINIC Atorvastatin Calcium 80 MG Oral Tablet (Lipitor) TAKE 1 TABLET BY MOUTH EVERY DAY IN THE MORNING HYDROcodone-Acetaminophen 5-325 MG Oral Tablet Take 1 Tablet by mouth 2 times a day as needed for Pain, Severe. Cephalexin 500 MG Oral Capsule (Keflex) Take 1 Capsule by mouth in the morning and 1 Capsule beforebedtime. Do all this for 5 days. [employer]tra[employer]Touch Delica Plus [id number] Use as directed. Use to test blood sugar once a day DX e11.9 metFORMIN HCl 500 MG Oral Tablet (Glucophage) TAKE 1 TABLET BY MOUTH TWICE A DAY WITH BREAKFAST ANDSUPPER Docusate Sodium 100 MG Oral Capsule (Colace) TAKE 1 CAP BY MOUTH EVERY MORNING. CAN TAKE 1 CAP IN THE EVENING NEEDED LORazepam 0.5 MG Oral Tablet (Ativan) TAKE 1 TABLET BY MOUTH TWICE A DAY NEEDED FOR ANXIETY Lisinopril 20 MG Oral Tablet (Prinivil) TAKE 1 TABLET BY MOUTH EVERY DAY Zoster Vac Recomb Adjuvanted 50 MCG/0.5ML Intramuscular Suspension Reconstituted (Shingrix) Inject 0.5 mL into a large muscle now and repeat dose in 60 to 180 days Patient not taking: Reported on 01/19/2023 Metoprolol Succinate ER 100 MG Oral Tablet Extended Release 24 Hour (toPROL XL) TAKE 1 TABLET BY MOUTH IN THE MORNING AND 1/2 TABLET DAILY AT BEDTIME [employer] Flex System w/Device Kit Use as directed . Use to test blood sugar Dx e11.9 OneTouch Verio In Vitro Strip (Glucose Blood) Use to test blood sugar once a day DX e11.9 Triamcinolone Acetonide 0.1 % External Cream (Aristocort) APPLY TO THE AFFECTED AREA 2 TIMES A DAY NEEDED FOR ITCHING polyethylene glycol 3350 (MIRALAX) 255 gram powder DISSOLVE 1 HEAPING TABLESPOON IN 8 OUNCES OF WATER OR JUICE DAILY NEEDED FOR CONSTIPATION Cholecalciferol (VITAMIN D3) 1000 UNITS CAPS Take by mouth. [facility] VITAMIN B12 1000 MCG PO TABS 1 TABLET DAILY Review of patient's allergies indicates: Allergen Reactions Aleve [Naproxen Sodium] Bleeding Hs of GI bleed Aspirin Bleeding Ibuprofen Bleeding Hx of GI bleed Doxycycline Neuro complications (Please comment) Hallucinations Lxbbhpvm-Oebqqufcy-Wn [Nblioptw-Uzpaopjnk-Xq] Caused eye problems Neosporin rash Sulfa Antibiotics nausea & vomiting Tramadol Hcl Unknown Triamterene ulcers Macrobid [Nitrofurantoin Monohydrate Macrocrystals] Neuro complications (Please comment) Headaches There were no vitals taken for this visit. Physical Exam: Mental Status Examination: alert and oriented. Airway Examination: normal oropharyngeal airway and neck mobility. Respiratory Examination: clear to auscultation. CV Examination: normal. ASA Grade: III - A patient with severe systemic disease. After reviewing the risks and benefits, the patient was deemed in satisfactory condition to undergothe procedure. The anesthesia plan was to use local anesthesia. Andrey Still DO 01/24/2023 documented in this encounter Nursing Notes * Janel Reid RN - 01/25/2023 12:50 PM EST Visited by Dr Still. Verbalized understanding of discharge directions. Ready for discharge to home. * Addie Mathis RN - 01/25/2023 12:40 PM EST Patient tolerating pain management injection well. documented in this encounter OR Notes * OR Surgeon - Andrey Still DO - 01/25/2023 12:44 PM EST OPERATIVE RECORD [facility] [address] [facility] [place] [address] Cristine Benitez : 1935 DOS: 01/25/2023 SERVICE: INTERVENTIONAL PAIN MANAGEMENT PRE-OP DIAGNOSIS: Lumbar spinal stenosis with neurogenic claudication POST-OP DIAGNOSIS: Same. SURGEON: Andrey Still DO. ASSISTANTS: None. ANESTHESIA: 2 cubic centimeters of 1% lidocaine. OPERATION: Caudal epidural steroid injection. FINDINGS: No intraoperative findings. ESTIMATED BLOOD LOSS: None. DRAINS: There were no drains placed. FLUIDS: No IV fluids. URINE OUTPUT: None. SPECIMEN: No specimens collected. COMPLICATIONS: None. CONDITION: Good. INDICATIONS AND HISTORY: Cristine Benitez presents in anticipation of undergoing epidural steroid injection for persistent low back and lower extremity radicular pain refractory to conservative treatment.The injection procedure was reviewed, as well as the risks of bleeding, infection, headache, nerve or spinal cord injury, worsening pain, or steroid side effects. DESCRIPTION OF OPERATION: After obtaining appropriate informed consent, Cristine Benitez was taken to the fluoroscopy suite, placed in a prone position. Time-out was taken to properly identify the patientand procedure, and the sacral hiatus was identified and the overlying skin sterilely prepped with ChloraPrep and draped. 1% lidocaine, 2 cubic centimeters, was infiltrated in skin and subcutaneous tissue and a #25 gauge, 3-1/2 inch spinal needle was directed with fluoroscopic guidance through the sacral hiatus, into the sacral canal without pain or paresthesia. After negative aspiration for bloodor cerebrospinal fluid, Omnipaque 180, 0.5 cubic centimeter was easily injected, showed appropriate epidural spread in P-A and lateral fluoroscopic views. There was no evidence of intravascular or subarachnoid spread of contrast. Kenalog 40 mg with 4 cubic centimeters of preservative-free normal saline was slowly and easily injected without pain. There was appropriate washout of contrast. The needle was removed. Patient tolerated procedure well. Cristine Benitez will be re-evaluated by phone in approximately 4 weeks, and was given appropriate discharge instructions following postprocedure monitoring. Andrey Still DO 01/25/2023 12:44 PM documented in this encounter Plan of Treatment Upcoming Encounters Date Type Department Care Team (Late st Contact Info) Description 02/08/2023 1:00 PM EST 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 Pharmacy, [address] [place] [address] [place] [address] 02/24/2023 2:30 PM EST Office Visit Nephrology [address] [place] [address] Radha Wyman PA-C [address] [place] [address] 07/04/2023 11:30 AM EDT Office Visit Family Medicine [address] [place] [phone] Liliane Lobato, [address] [place] [address] 07/27/2023 1:30 PM EDT Office Visit Cardiology [address] [place] [address] Cameron Becerra PA-C [address] [place] [address] Health Maintenance Due Date Last Done Comments Hepatitis B (1 of 3 - Risk 3-dose series) 1994 Zoster Vaccines (2 of 3) 08/02/2010 06/07/2010 Depression Screening 08/03/2021 08/03/2020 Diabetic Foot Exam 02/08/2023 02/08/2022, 0 05/28/2020, 05/17/2019, Additional history exists Diabetic Eye Exam 03/15/2023 03/15/2022, , 11/03/2020, Additional history exists HbA1c 07/20/2023 01/19/2023, 09/0 08/2022, 12/03/2021, Additional history exists Albumin/Creatinine Ratio 11/17/2023 023, 03/29/2022, 01/06/2021, Additional history exists CKD HGB USE SMARTSET 28284 11/17/202311/16, 11/16/2022, 12/03/2021, Additional history exists CKD PHOS USE SMARTSET 37771 01/20/2024 11/0 11/2022, 11/21/2022, 01/06/2021, Additional history [...] Procedure Name Priority Date/Time Associated Diagnosis Comments FLUORO INTERVENTIONAL PAIN PROCEDURE NONBILLABLE Routine 01/25/2023 12:44 PM EST documented in this encounter Results * FLUORO INTERVENTIONAL PAIN PROCEDURE NONBILLABLE (01/25/2023 12:44 PM EST) Narrative Scheduling, Silent - 01/25/2023 12:44 PM EST This procedure will not be read by a Radiologist. Please see operative note. Andrey Ten Sonianita DO RAD FLUOROSCOPY documented in this encounter Administered Medications Inactive Administered Medications - up to 3 most recent administrations Medication Order MAR Action Action Date Dose Rate Site Iohexol (Omnipaque 180) inj 1 mL 1 mL, Injection, ONCE, On Mon01/25/23 at 1300, For 1 dose Given 01/25/2023 12:40 PM EST 1 mL lidocaine 1 % inj 20 mg 20 mg (2 mL), Subcutaneous, ONCE, On Mon01/25/23 at 1300, For 1 dose Given 01/25/2023 12:39 PM EST 20 mg Other-Specify Triamcinolone Acetonide (Kenalog) 40 MG/ML inj 40 mg 40 mg, Injection, ONCE, On Mon01/25/23 at 1300, For 1 dose Given 01/25/2023 12:41 PM EST 40 mg documented in this encounter Active and Recently Administered Medications Times are shown in EST. Scheduled Medication Order 01/23/2023 01/24/2023 01/25/2023 Iohexol (Omnipaque 180) inj 1 mL (COMPLETED) 1 mL, Injection, ONCE, On Mon01/25/23 at 1300, For 1 dose 1240 (Given - Provid er: Addie Mathis RN) lidocaine 1 % inj 20 mg (COMPLETED) 20 mg (2 mL), Subcutaneous, ONCE, On Mon01/25/23 at 1300, For 1 dose 1239 (Given - Provid er: Addie Mathis RN) Triamcinolone Acetonide (Kenalog) 40 MG/ML inj 40 mg (COMPLETED) 40 mg, Injection, ONCE, On Mon01/25/23 at 1300, For 1 dose 1241 (Given - Provid er: Addie Mathis RN) documented in this encounter Care Teams Client Advisor Relationship Specialty Start Date End Date Priyanka Falcon MD [address] [place] [address] [place] [address] PCP - General Family Medicine 01/04/19 documented as of this encounter
--- OUTSIDE RECORDS SUMMARY | 2023-02-21 00:30 | External Medical Summary ---
Author Name Unknown Address Unknown Organization K01:[facility] [place] [address] [facility] [address] Laboratory Report Ordering Provider Test Date Status JARAD MENARD 01/19/2023 13:07:40 Final Observation Date Value Abnormality Reference (Units ) Status HbA1C 01/19/2023 13:07:40 8.1 Above high normal 4. 0-5.6 (%) Final The use of HbA1c to monitor glycemic status is based on normal hemoglobin and HbA composition. This test should not be used in patients with abnormal hemoglobin that affects the half life of the red blood cell or the in vivo glycation rates. Glucose, estimated average 01/19/2023 13:07:40 186 Above high normal <126 (mg/dL) Manjit al Performing Location [facility] [place] [facility] [address] [facility] [address]
--- OUTSIDE RECORDS SUMMARY | 2023-02-21 00:30 | External Medical Summary | Summary of Care ---
Author Name Unknown Organization [facility] Address [address] [place] [address] Phone [phone] Care Team Providers Care Special Education Resource Room Teacher Name Role Phone Priyanka Falcon MD Primary Care Prov ider Reason for Visit * Reason Onset Date Comments Test Results 01/24/2023 Encounter Details Date Type Department Care Team (Late st Contact Info) Description 01/24/2023 Telephone Cardiology, [facility] [address] [place] [phone] Cameron Becerra PA-C [address] [place] [id number] Test Results Allergies Active Allergy Reactions Criticality Noted Date Comments Naproxen Sodium Bleeding High 12/03/2009 Hs of GI bleed Aspirin Bleeding High 12/03/2009 Doxycycline Neuro complications (Please comment) Medium 10/23/2010 Hallucinations Ibuprofen Bleeding High 12/03/2009 Hx of GI bleed Nitrofurantoin Monohydrate Macrocrystals Neuro complications (Please comment) Low 09/16/2009 Headaches Cllmfqlw-Zybstsalt-Ca 01/25/2011 Caused eye problems Neosporin 05/30/2003 rash Sulfa Antibiotics 05/11/2002 nausea & vomiting Tramadol Hcl Unknown 12/03/2009 Triamterene 11/16/2022 ulcers documented as of this encounter (statuses as of 01/24/2023) Medications Medication Sig Dispensed Refills Start Date [...] FOR ITCHING 30 g 2 05/28/2020 Active Smart [employer] PowerTo[employer]wheel Verio In Vitro Strip (Glucose Blood)Indications: Type 2 diabetes mellitus with hemoglobin A1c goal of less than 7.5% (HCC) Use to test blood sugar once a day DX e11.9 100 Strip 3 05/14/2021 Active Smart [employer] PowerTouch Verio Flex System w/Device KitIndications:Typ e 2 [...] Tablet 1 09/08/2022 Active OneTouch Delica Plus [id number] ns:Type 2 diabetes mellitus with hemoglobin A1c [...] Oral Tablet (Coumadin)Indicati ons:Atrial flutter, unspecified type ([facility]),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,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 E11.9 [...] days. Until gone.. 21 Capsule 0 01/24/2023 3 Active documented as of this encounter (statuses as of 01/24/2023) Active Problems Problem Noted Date Diagnosed Date [...] as of this encounter (statuses as of 01/24/2023) Resolved Problems Problem Noted Date Diagnosed Date [...] as of this encounter (statuses as of 01/24/2023) Immunizations Name Administration Dates Next Due COVID-19 [...] encounter Miscellaneous Notes * Telephone Encounter - Yordan Galo LPN - 01/24/2023 10:11 AM EST Called patient and informed of Cameron's message. Patient verbalized understanding. Medication pended. ----- Message from Cameron Becerra PA-C sent at 01/21/2023 8:49 PM EST ----- UTI: Cephalexin 500 mg three times a day x 7 days documented in this encounter Plan of Treatment Upcoming Encounters Date Type Department Care Team (Latest Contact Info) Description 01/25/2023 11:50 AM EST 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 Pharmacy, [facility] [address] [place] [address] [facility] [address] [place] [address] 01/25/2023 1:00 PM EST Hospital Encounter OR [facility], Operating Room [facility] [address] [place] [phone] Andrey Still, DO [address] [place] [address] 01/25/2023 1:00 PM EST - 01/25/2023 1:20 PM EST Surgery OR [facility], Operating Room [facility] [address] [place] [phone] Andrey Still, DO [address] [place] [phone] INJECTION SPINE LUMBAR OR SACRAL 02/08/2023 1:00 PM EST 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 Pharmacy, [address] [place] [address] [place] [address] 02/24/2023 2:30 PM EST Office Visit Nephrology [address] [place] [address] Radha Wyman PA-C [address] [place] [address] 07/04/2023 11:30 AM EDT Office Visit Family Medicine [address] [place] [phone] [address] [place] [address] 07/27/2023 1:30 PM EDT Office Visit Cardiology [address] [place] [address] Cameron Becerra PA-C [address] [place] [address] Scheduled Procedures Name Priority Associated Diagnoses Date/Ti [...] exists Diabetic Eye Exam 03/15/2023 03/15/2022, , 09/26/2019, Additional history exists HbA1c 07/20/2023 01/19/2023, 0908/2022, 12/03/2021, Additional history exists Albumin/Creatinine Ratio 11/17/20232 023, 03/29/2022, 01/06/2021, Additional history exists CKD HGB USE SMARTSET 86585 11/17/202311/16, 11/16/2022, 12/03/2021, Additional history exists CKD PHOS USE SMARTSET 81175 01/20/2024 110 11/2022, 11/21/2022, 01/06/2021, Additional history [...] Not on filedocumented as of this encounter Care Teams Special Education Resource Room Teacher Relationship Specialty Start Date End Date Priyanka Falcon MD [address] [place] [address] [place] [address] PCP - General Family Medicine 01/04/19 documented as of this encounter
--- OUTSIDE RECORDS SUMMARY | 2023-02-21 00:30 | External Medical Summary | Summary of Care ---
Author Name Unknown Organization [facility] Address [address] [place] [address] Phone [phone] Care Team Providers Care Packer Dried Beef Name Role Phone Priyanka Falcon MD Primary Care Prov ider Reason for Visit * Reason Onset Date Comments Test Results 01/20/2023 Encounter Details Date Type Department Care Team (Late st Contact Info) Description 01/20/2023 Telephone Cardiology, [facility] [address] [place] [phone] Cameron Becerra PA-C [address] [place] [phone] Test Results Allergies Active Allergy Reactions Criticality Noted Date Comments Naproxen Sodium Bleeding High 12/03/2009 Hs of GI bleed Aspirin Bleeding High 12/03/2009 Doxycycline Neuro complications (Please comment) Medium 10/23/2010 Hallucinations Ibuprofen Bleeding High 12/03/2009 Hx of GI bleed Nitrofurantoin Monohydrate Macrocrystals Neuro complications (Please comment) Low 09/16/2009 Headaches Gvbuvsvz-Mwobztbzi-Aj 01/25/2011 Caused eye problems Neosporin 05/30/2003 rash Sulfa Antibiotics 05/11/2002 nausea & vomiting Tramadol Hcl Unknown 12/03/2009 Triamterene 11/16/2022 ulcers documented as of this encounter (statuses as of 01/20/2023) Medications Medication Sig Dispensed Refills Start Date [...] FOR ITCHING 30 g 2 05/28/2020 Active [employer] Verio In Vitro Strip (Glucose Blood)Indications: Type 2 diabetes mellitus with hemoglobin A1c goal of less than 7.5% (HCC) Use to test blood sugar once a day DX e11.9 100 Strip 3 05/14/2021 Active [employer] LifeTouch Verio Flex System w/Device KitIndications:Typ e 2 [...] Tablet 1 09/08/2022 Active OneTouch Delica Plus [id number] ns:Type 2 diabetes mellitus with hemoglobin A1c [...] Oral Tablet (Coumadin)Indicati ons:Atrial flutter, unspecified type ([facility]),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,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 * Telephone Encounter - Azucena Banuelos CMA - 01/20/2023 8:59 AM EST ----- Message from Cameron Becerra PA-C sent at 01/20/2023 8:57 AM EST ----- Lipid panel looks great. LDL cholesterol now at goal. Continue atorvastatin at 80 mg/day. documented in this encounter Plan of Treatment Upcoming Encounters Date Type Department Care Team (Latest Contact Info) Description 01/25/2023 11:50 AM EST 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 Pharmacy, [facility] [address] [place] [address] [facility] [address] [place] [address] 01/25/2023 1:00 PM EST Hospital Encounter OR [facility], Operating Room [facility] [address] [place] [phone] Andrey Still, DO [address] [place] [phone] 01/25/2023 1:00 PM EST - 01/25/2023 1:20 PM EST Surgery OR [facility], Operating Room [facility] [address] [place] [phone] Andrey Still, DO [address] [place] [address] INJECTION SPINE LUMBAR OR SACRAL 02/08/2023 1:00 PM EST 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 Pharmacy, [address] [place] [address] [place] [address] 02/24/2023 2:30 PM EST Office Visit Nephrology [address] [place] [address] Radha Wyman PA-C [address] [place] [address] 07/04/2023 11:30 AM EDT Office Visit Family Medicine [address] [place] [phone] [address] [place] [address] 07/27/2023 1:30 PM EDT Office Visit Cardiology [address] [place] [address] Cameron Becerra PA-C [address] [place] [address] Scheduled Procedures Name Priority Associated Diagnoses Date/Ti [...] Additional history exists CKD HGB USE SMARTSET 88504 11/17/202311/16, 11/16/2022, 12/03/2021, Additional history exists CKD PHOS USE SMARTSET 93153 01/20/2024 110 11/2022, 11/21/2022, 01/06/2021, Additional history [...] filedocumented as of this encounter Care Teams Packer Dried Beef Relationship Specialty Start Date End Date Priyanka Falcon MD [address] [place] [address] [place] [address] PCP - General Family Medicine 01/04/19 documented as of this encounter
--- OUTSIDE RECORDS SUMMARY | 2023-02-21 00:30 | External Medical Summary | Summary of Care ---
Author Name Unknown Organization [facility] Address [address] [place] [address] Phone [phone] Care Team Providers Care Counselor At Law Name Role Phone Priyanka Falcon MD Primary Care Prov ider Reason for Visit * Reason Comments Follow Up 11 month follow up. Edema in LE. Denies chest pain, palpitations, SOB and dizziness. Encounter Details Date Type Department Care Team (Latest Contact Info) Description 01/19/2023 12:30 PM EST Office Visit Cardiology [address] [place] [phone] Cameron Becerra PA-C [address] [place] [address] Heart failure, diastolic, with acute decompensation (HCC)*; Essential hypertension with goal blood pressure less than 140/90; Dysuria; Dyslipidemia, goal LDL below 70; Hypertension goal BP (blood pressure) < 140/90; Fluid retention; Chronic kidney disease, stage 3a (HCC); Encounter for monitoring diuretic therapy Allergies Active Allergy Reactions Criticality Noted Date Comments Naproxen Sodium Bleeding High 12/03/2009 Hs of GI bleed Aspirin Bleeding High 12/03/2009 Doxycycline Neuro complications (Please comment) Medium 10/23/2010 Hallucinations Ibuprofen Bleeding High 12/03/2009 Hx of GI bleed Nitrofurantoin Monohydrate Macrocrystals Neuro complications (Please comment) Low 09/16/2009 Headaches Nmtgkujo-Zrtrsulrf-La 01/25/2011 Caused eye problems Neosporin 05/30/2003 rash Sulfa Antibiotics 05/11/2002 nausea & vomiting Tramadol Hcl Unknown 12/03/2009 Triamterene 11/16/2022 ulcers documented as of this encounter (statuses as of 01/21/2023) Medications Medication Sig Dispensed Refills Start Date End Date Status [facility] VITAMIN B12 1000 MCG PO TABSIndications:V itamin B deficiency 1 TABLET DAILY 1 Tab 0 04/27/19 11 Active Cholecalciferol (VITAMIN D3) 1000 UNITS [...] ITCHING 30 g 2 05/29/19 21 Active MeezTouch Verio In Vitro Strip (Glucose Blood)Indications :Type 2 diabetes mellitus with hemoglobin A1c goal of less than 7.5% (HCC) Use to test blood sugar once a day DX e11.9 100 Strip 3 05/15/19 22 Active MeezTouch Verio Flex System w/Device KitIndications:Ty pe 2 diabetes mellitus with hemoglobin A1c goal of less than 7.5% (HCC) Use as directed . Use to test blood sugar Dx e11.9 1 Kit 0 05/15/19 22 Active Metoprolol Succinate ER 100 MG Oral Tablet Extended Release 24 Hour (toPROL XL)Indications:Es sential hypertension with goal blood pressure less than 140/90 TAKE 1 TABLET BY MOUTH IN THE MORNING AND 1/2 TABLET DAILY AT BEDTIME 135 Tablet 3 02/14/20 22 Active Zoster Vac Recomb Adjuvanted 50 [...] 1 09/09/19 23 Active OneTouch Delica Plus [id number] ons:Type 2 diabetes mellitus with hemoglobin A1c [...] Oral Tablet (Coumadin)Indicat ions:Atrial flutter, unspecified type ([facility]),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 management encounter,penitentiary current use of anticoagulant therapy,PAF (paroxysmal atrial fibrillation) ([facility]) TAKE 1-2 TABLETS BY MOUTH DAILY DIRECTED BY ANTICOAGULATION CLINIC 100 Tablet 3 12/06/19 23 Active OneTouch Ultra In Vitro Strip (Glucose Blood)Indications :Type 2 diabetes mellitus with hemoglobin A1c goal of less than 7.0% ([facility]) USE TO TEST ONCE PER DAY. E11.9 [...] Monday) 90 Tablet 3 01/20/20 23 Active ASPIRIN 81 MG PO TABS None Entered 0 023 Discontinued Furosemide 40 MG Oral Tablet (Lasix) Take 1 Tablet by mouth in the morning. 90 Tablet 1 12/09/19 23 023 Discontinued(Re fill) Furosemide 40 MG Oral Tablet (Lasix) One tablet 5-6 days per week (skip Monday and Monday) 90 Tablet 3 01/20/20 23 023 Discontinued(Re fill) documented as of this encounter (statuses as of 01/21/2023) Active Problems Problem Noted Date Diagnosed Date [...] as of this encounter (statuses as of 01/21/2023) Resolved Problems Problem Noted Date Diagnosed Date [...] as of this encounter (statuses as of 01/21/2023) Immunizations Name Administration Dates Next Due COVID-19 [...] Date Smoking Tobacco: Never Smokeless Tobacco: Never Tobacco Cessation:Counseling Given: Not Answered Alcohol Use Standard Drinks/Week Comments Yes 0 [...] Sign Reading Time Taken Comments Blood Pressure 134/74 01/19/2023 12:24 PM EST Pulse 76 01/19/2023 12:24 PM EST Temperature - - Respiratory Rate 16 01/19/2023 12:24 PM EST Oxygen Saturation - - Inhaled Oxygen Concentration - - Weight 71.7 kg (158 lb) 01/19/2023 12:24 PM EST Height - - Body Mass Index 28.89 12/08/2022 2:23 PM EDT documented in this encounter Progress Notes * Cameron Becerra PA-C - 01/19/2023 12:25 PM EST History of Present Illness: Cristine Benitez is an 86 year old female here today for routine cardiology follow-up. The patient was last seen in the office in September 2021, presenting at that time with lower extremity peripheral edema. Amlodipine dosing was decreased. Low-dose furosemide was prescribed. Patient notes taking furosemide x1 or 2 prescriptions then discontinuing due to lack of perceived benefit. Patient notes edema is non-existent in the morning, progressing throughout day. She feels well. No cough, chest congestion, shortness of breath, orthopnea, or PND. No chest pain. No palpitations. Unable to tolerate oral iron even just on MWF due to constipation which aggravated hemorrhoidal bleeding. No dizziness or syncope. No fevers or chills. No hematuria or dysuria. Severe lumbar spinal stenosis, partaking in physical therapy as recommended by Dr. Still for bilateral knee pain with perceived benefit. Accompanied by son Cipriano Issues with significant fluid retention earlier this fall leading to initiation of furosemide at 40mg/day. ECHO obtained, summarized below Patient notes significant improvement in fluid retention with utilization of furosemide. Approximately 2 weeks ago patient discontinued furosemide due to dysuria which resolved a couple days later, now with urinary frequency without dysuria. No fevers or chills. Normal mentation as per son. No chest pain No palpitations No trouble breathing No orthopnea or PND. No dizziness or syncope. No melena or hematochezia. Patient Active Problem List Diagnosis Code Paroxysmal atrial tachycardia I47.19 Vitamin B12 deficiency E53.8 Generalized osteoarthritis M15.9 History of breast cancer Z85.3 Paroxysmal VT ([facility]) I47.29 Spinal stenosis of lumbar region without neurogenic claudication M48.061 Anxiety state F41.1 DYSLIPIDEMIA, GOAL LDL BELOW 100 E78.5 Low HDL (under 40) E78.6 Type 2 diabetes mellitus with hemoglobin A1c goal of less than 7.5% ([facility]) E11.9 Essential hypertension with goal blood pressure less than 140/90 I10 Primary osteoarthritis of left knee M17.12 Right carotid bruit R09.89 Atrial flutter ([facility]) I48.92 PAF (paroxysmal atrial fibrillation) ([facility]) I48.0 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 Pedal edema R60.0 Diabetes mellitus with stage 3 chronic kidney disease ([facility]) E11.22, N18.30 Hypertensive kidney disease with stage 3a chronic kidney disease I12.9, N18.31 Anemia due to stage 3a chronic kidney disease N18.31, D63.1 Type 2 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 disease, without long-term current use of insulin ([facility]) E11.22, N18.32 Chronic kidney disease, stage 3a ([facility]) N18.31 Seborrheic keratosis L82.1 Typical atrial flutter ([facility]) I48.3 Social History Tobacco Use Smoking status: Never Smoker Smokeless tobacco: Never Used Substance Use Topics Alcohol use: Yes Comment: occassional wine/beer Drug use: No Review of patient's allergies indicates: Allergen Reactions Aleve [Naproxen Sodium] Bleeding Hs of GI bleed Aspirin Bleeding Ibuprofen Bleeding Hx of GI bleed Doxycycline Neuro complications (Please comment) Hallucinations Pdwopkic-Frqvunric-Ok [Ylzakmdj-Zrmklhidm-Fz] Caused eye problems Neosporin rash Sulfa Antibiotics nausea & vomiting Tramadol Hcl Unknown Triamterene ulcers Macrobid [Nitrofurantoin Monohydrate Macrocrystals] Neuro complications (Please comment) Headaches Current Outpatient Medications Medication Sig Dispense Refill [facility]S VITAMIN B12 1000 MCG PO TABS 1 TABLET DAILY 1 Tab 0 Cholecalciferol (VITAMIN D3) 1000 UNITS CAPS Take by mouth. polyethylene glycol 3350 (MIRALAX) 255 gram powder DISSOLVE 1 HEAPING TABLESPOON IN 8 OUNCES OF WATER OR JUICE DAILY NEEDED FOR CONSTIPATION 255 g 3 OneTouch Verio In Vitro Strip (Glucose Blood) Use to test blood sugar once a day DX e11.9 100 Strip3 OneTouch Verio Flex System w/Device Kit Use as directed . Use to test blood sugar Dx e11.9 1 Kit 0 Metoprolol Succinate ER 100 MG Oral Tablet Extended Release 24 Hour (toPROL XL) TAKE 1 TABLET BY MOUTH IN THE MORNING AND 1/2 TABLET DAILY AT BEDTIME 135 Tablet 3 Lisinopril 20 MG Oral Tablet (Prinivil) TAKE 1 TABLET BY MOUTH EVERY DAY 90 Tablet 3 Docusate Sodium 100 MG Oral Capsule (Colace) TAKE 1 CAP BY MOUTH EVERY MORNING. CAN TAKE 1 CAP IN THE EVENING NEEDED 60 Capsule 5 LORazepam 0.5 MG Oral Tablet (Ativan) TAKE 1 TABLET BY MOUTH TWICE A DAY NEEDED FOR ANXIETY 120 Tablet 1 metFORMIN HCl 500 MG Oral Tablet (Glucophage) TAKE 1 TABLET BY MOUTH TWICE A DAY WITH BREAKFAST ANDSUPPER 180 Tablet 1 MeezTouch Delica Plus [id number] Use as directed. Use to test blood sugar once a day DX e11.9 100 Each 3 HYDROcodone-Acetaminophen 5-325 MG Oral Tablet Take 1 Tablet by mouth 2 times a day as needed for Pain, Severe. 30 Tablet 0 Atorvastatin Calcium 80 MG Oral Tablet (Lipitor) TAKE 1 TABLET BY MOUTH EVERY DAY IN THE MORNING 90Tablet 3 Warfarin Sodium 2 MG Oral Tablet (Coumadin) TAKE 1-2 TABLETS BY MOUTH DAILY DIRECTED BY ANTICOAGULATION CLINIC 100 Tablet 3 OneTouch Ultra In Vitro Strip (Glucose Blood) USE TO TEST ONCE PER DAY. E11.9 100 Strip 5 glipiZIDE ER 2.5 MG Oral Tablet Extended Release 24 Hour (Glucotrol XL) TAKE 1 TABLET BY MOUTH DAILY 30 MINUTES BEFORE A MEAL 90 Tablet 1 amLODIPine Besylate 2.5 MG Oral Tablet (Norvasc) TAKE 1 TABLET BY MOUTH EVERY DAY IN THE MORNING 90Tablet 3 Furosemide 40 MG Oral Tablet (Lasix) One tablet 5-6 days per week (skip Monday and Monday) 90 Tablet 3 Triamcinolone Acetonide 0.1 % External Cream (Aristocort) APPLY TO THE AFFECTED AREA 2 TIMES A DAY NEEDED FOR ITCHING 30 g 2 Zoster Vac Recomb Adjuvanted 50 MCG/0.5ML Intramuscular Suspension Reconstituted (Shingrix) Inject 0.5 mL into a large muscle now and repeat dose in 60 to 180 days (Patient not taking: Reported on 01/19/2023) 1 Each 1 No current facility-administered medications for this visit. OBJECTIVE/PHYSICAL EXAMINATION: BP 134/74 | Pulse 76 | Resp 16 | Wt 71.7 kg (158 lb) | BMI 28.89 kg/m | BSA 1.77 m General: A&Ox3. NAD. HENT: Normocephalic. Atraumatic. Eyes: PER. Conjunctiva pink, sclera clear. Neck: No carotid bruits. No over JVD. Heart: Irregularly irregular at 80 bpm. No murmur. Lungs: Clear to auscultation. Abdomen: +BS. Soft. Nontender. No masses or organomegaly. Extremities: 2+ distal edema. No clubbing or cyanosis. Limited neurological examination is without focal deficits. Pulses: radial=2/4, posterior tibial=1/4. Data: December 30, 2018 TTE Interpretation Summary ([facility], Dr. Umana): Atrial fibrillation with a ventricular rate of 60-90 bpm was present during the echocardiogram. Mild concentric LVH. Normal LV wall motion. Hyperdynamic LV systolic function. Ejection fraction greater than 70%. Moderate mitral regurgi tation. Mildly dilated left atrium. A 8eighty Wearo patch XT monitor was worn for 6 days and 1 hour ranging from 09/21/2021 until 09/27/2021 for the evaluation of atrial fibrillation. Atrial Fibrillation/Flutter occurred continuously (100% burden), ranging from 48-134 bpm (avg of 84 bpm). Isolated VEs were occasional (3.1%, 95118), VE Coupletswere rare (<1.0%, 183), and VE Triplets were rare (<1.0%, 8). Ventricular Bigeminy and Trigeminy were present. During anticipated waking hours from 6:00 a.m. to 10:00 p.m., the ventricular ratewas between 50 beats per minute and 110 beats per minute 99% the time. No patient triggered events were submitted. No symptoms were reported. November 17, 2022 TTE Interpretation Summary (as per Dr. Huizar): The rhythm during the transthoracic echo examination was atrial fibrillation with controlled ventricular response. The qualitative LV ejection fraction is 55-59% (normal). The left atrium is mildly enlarged (35-41 ml/m^2). Moderatefocal calcification involving the tip of the anterior mitral valve leaflet. Moderate to severe mitral regurgitation. Moderate tricuspid regurgitation is present. The estimated pulmonary artery systolic pressure is 46mm Hg. Compared to last available study changes are noted as follows: Moderate to severe mitral regurgitation and moderate tricuspid regurgitation with mild pulmonary hypertension nowpresent. EKG on 01/19/2023: Atrial fibrillation at 78 bpm. Low voltage QRS. No significant change compared toprior. ASSESSMENT AND RECOMMENDATIONS/PLAN: Acute decompensated diastolic congestive heart failure Echo in November 2022 with moderate to severe mitral regurgitation, moderate tricuspid regurgitation, and mild pulmonary hypertension. Recommend treating medically with good blood pressure control and diuresis. Resume furosemide at 40 mg five days per week (Skipping Monday's and Monday's) Check a basic metabolic panel in 3-4 weeks Reconsider evaluation for hypoxemia including via nocturnal pulse oximetry (declined today) Arrhythmias. Paroxysmal atrial tachycardia. PSVT. PVC's. Nonsustained VT. Now with persistent atrial fibrillation. Asymptomatic. Continue metoprolol as prescribed. Continue chronic Coumadin anticoagulation Discontinue Aspirin 81 mg/day Hypertension, controlled. Continue the current antihypertensive regimen. If/when hypotension observed would discontinue amlodipine. Dyslipidemia. Optimal LDL goal is less than 70 mg/dL. Atorvastatin increased to 80 mg/day in November 2021 LDL cholesterol 91 mg/dL on 11/16/2022 Lipids not addressed today Stage III chronic kidney disease, followed by [facility] Nephrology Type II diabetes mellitus. Followed by PCP. History of breast cancer Anemia. Iron deficient. Followed by PCP. Patient unable to tolerate oral iron replacement therapy due to constipation resulting in hemorrhoidal bleeding. Cardiology follow-up as above, in 3-4 months, or as needed. ER with emergencies. Cameron Becerra PA-C Department of Cardiology This chart was completed in part utilizing [employer] Speech Voice Recognition Software. Grammatical errors, random word insertions, prounoun errors, and incomplete sentences are an occasional consequence of this system due to software limitations, ambient noise, and hardware issues. Any formal questions or concerns about the content, text, or information contained within the body of this dictation should be directly addressed to the provider for clarification. documented in this encounter Procedure Notes * Mehul Huizar DO - 01/19/2023 12:19 PM ESTAssociated Order(s): EKG REASON FOR STUDY: HTN CONCLUSIONS: Atrial fibrillation Low voltage QRS, consider pulmonary disease, pericardial effusion, or normal variant Abnormal ECG When compared with ECG of 21-SEP-2021 13:30, No significant change was found Ventricular Rate: 78 Atrial Rate: 75 QRS Duration: 70 QT/QTc: 386/440 ms P-R-T Sanger: 0 : 25 : 49 degrees documented in this encounter Nursing Notes * Yordan Galo LPN - 01/19/2023 12:23 PM EST Patient identified by full name and date of Chief Complaint Patient presents with Follow Up 11 month follow up. Edema in LE. Denies chest pain, palpitations, SOB and dizziness. Examination Room: 3 Name: Cristine Benitez Date of : (1935). Reason for Visit: 11 month follow up Interim Hospitalization(s): Denies Problems/Concerns: See chief complaint Chest Pain/SOB: Denies [facility] Discussed: Not applicable [employer] is a way you can talk to your provider online through e-mail. Would you like to sign up? I can activate it for you? DECLINES Patient was instructed to not get up on the exam table until directed and assisted by their provider; patient is to remain seated in the chair/ wheelchair/ exam table for fall prevention and safety reasons. Patient is aware to have assistance to step down off exam table with personnel. Patient voiced full comprehension of instructions. documented in this encounter Plan of Treatment Upcoming Encounters Date Type Department Care Team (Latest Contact Info) Description 01/25/2023 11:50 AM EST 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 Pharmacy, [facility] [address] [place] [id number] [facility] [address] [place] [address] 01/25/2023 1:00 PM EST Hospital Encounter OR [facility], Operating Room [facility] [address] [place] [phone] Andrey Still, DO [address] [place] [address] 01/25/2023 1:00 PM EST - 01/25/2023 1:20 PM EST Surgery OR [facility], Operating Room [facility] [address] [place] [phone] Andrey Still DO [address] [place] [phone] INJECTION SPINE LUMBAR OR SACRAL 02/08/2023 1:00 PM EST 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 Pharmacy, [address] [place] [address] [place] [address] 02/24/2023 2:30 PM EST Office Visit Nephrology [address] [place] [address] Radha Wyman PA-C [address] [place] [address] 07/04/2023 11:30 AM EDT Office Visit Family Medicine [address] [place] [phone] [address]iane [address] [place] [address] 07/27/2023 1:30 PM EDT Office Visit Cardiology [address] [place] [phone] Cameron Becerra PA-C [address] [place] [address] Pending Results Name Type Priority Associated Diagnoses Date /Time CULTURE, URINE, QUANTITATIVE Lab Routine Dysuria 01/19/2023 1:01 PM EST Scheduled Procedures Name Priority Associated Diagnoses Date/Ti [...] Additional history exists CKD HGB USE SMARTSET 93124 11/17/202311/16, 11/16/2022, 12/03/2021, Additional history exists CKD PHOS USE SMARTSET 03068 01/20/2024 11/0 11/2022, 11/21/2022, 01/06/2021, Additional history [...] Procedure Name Priority Date/Time Associated Diagnosis Comments FL ECG ROUTINE ECG W/LEAST 12 LDS TRCG ONLY W/O I&R Routine 01/19/2023 12:19 PM EST Essential hypertension with goal blood pressure less than 140/90 documented in this encounter Results * (ABNORMAL) BASIC METABOLIC PANEL (01/19/2023 1:01 PM EST) BUN 22(H) 6 - 20 mg/dL 01/20/2023 4:28 AM EST [facility] Creatinine 1.2(H) 0.5 - 1.0 mg/dL 01/20/2023 4:28 AM EST [facility] Estimated Glomerular Filtration Rate 44(L) >=60 mL/min 01/20/2023 4:28 AM EST [facility] Comment:eGFR is calculated b ased on the CKD-EPI 2020 equation Sodium 139 135 - 146 mmol/L 01/20/2023 4:28 AM EST [facility] Potassium 4.7 3.5 - 5.1 mmol/L 01/20/2023 4:28 AM EST [facility] Chloride 103 98 - 107 mmol/L 01/20/2023 4:28 AM EST [facility] CO2 23 22 - 32 mmol/L 01/20/2023 4:28 AM EST [facility] Anion Gap 13 7 - 15 mmol/L 01/20/2023 4:28 AM EST [facility] Glucose 149(H) 70 - 120 mg/dL 01/20/2023 4:28 AM EST [facility] Calcium 9.1 8.4 - 10.2 mg/dL 01/20/2023 4:28 AM EST [facility] Blood Venous blood specimen / Unknown Venipuncture / Unknown 01/19/2023 1:01 PM EST 01/19/2023 1:01 PM EST Cameron Yuni Hernan SUE LAB BLOOD ORDERABLE S [facility] [address] [place] [address] * (ABNORMAL) URINALYSIS, REFLEX TO MICROSCOPIC (01/19/2023 1:01 PM EST) Color, Urine Light Yellow Colorless, Light Yellow, Yellow, Dark Yellow 01/20/2023 12:36 AM EST [facility] Clarity, Urine Slightly Cloudy(A) Clear 01/20/2023 12:36 AM EST [facility] Glucose, Urine Negative Negative mg/dL 01/20/2023 12:36 AM EST [facility] Bilirubin, Urine Negative Negative 01/20/2023 12:36 AM EST [facility] Ketone, Urine Negative Negative mg/dL 01/20/2023 12:36 AM EST [facility] Specific [place], Urine 1.015 1.003 - 1.030 01/20/2023 12:36 AM EST [facility] Blood, Urine Negative Negative 01/20/2023 12:36 AM EST [facility] pH, Urine 6.0 5.0 - 7.5 Units 01/20/2023 12:36 AM EST [facility] Protein, Urine Trace(A) Negative mg/dL 01/20/2023 12:36 AM EST [facility] Urobilinogen, Urine Normal Normal mg/dL 01/20/2023 12:36 AM EST [facility] Nitrite, Urine Negative Negative 01/20/2023 12:36 AM EST [facility] Esterase, Urine Large(A) Negative 01/20/2023 12:36 AM EST [facility] RBC, Urine 0-2 0 - 2 /HPF 01/20/2023 12:36 AM EST [facility] WBC, Urine 50+(A) 0 - 2 /HPF 01/20/2023 12:36 AM EST [facility] Bacteria, Urine 0-25 0 - 25 /HPF 01/20/2023 12:36 AM EST [facility] Hyaline, Cast, Urine 1-4(A) None /LPF 01/20/2023 12:36 AM EST LABORATORY GM Urine Urine specimen obtained by clean catch procedure / Unknown Non-blood Collection / Unknown 01/19/2023 1:01 PM EST 01/19/2023 1:01 PM EST Cameron Morrissey Hernanfrancoise SUE LAB URINE ORDERABLE S [facility] [address] [place] [address] * EKG (01/19/2023 12:19 PM EST) 01/19/2023 12:1 9 PM EST Narrative Procedure Note Mehul Huizar DO - 01/19/2023 12:19 PM EST REASON FOR STUDY: HTN CONCLUSIONS: Atrial fibrillation Low voltage QRS, consider pulmonary disease, pericardial effusion, ornormal variant Abnormal ECG When compared with ECG of 21-SEP-2021 13:30, No significant change was found Ventricular Rate: 78 Atrial Rate: 75 QRS Duration: 70 QT/QTc: 386/440 ms P-R-T [place]: 0 : 25 : 49 degrees Cameron Newsomejulio césar SUE EKG Performing Organization Address City/[facility] Co de Phone Number [facility] documented in this encounter Visit Diagnoses Diagnosis Heart failure, diastolic, with acute decompensation (HCC)- Primary Acute on chronic diastolic heart failure Essential hypertension with goal blood pressure less than 140/90 Dysuria Dyslipidemia, goal LDL below 70 Other and unspecified hyperlipidemia Hypertension goal BP (blood pressure) < 140/90 Unspecified essential hypertension Fluid retention Other fluid overload Chronic kidney disease, stage 3a (HCC) Encounter for monitoring diuretic therapy Encounter for therapeutic drug monitoring Spinal stenosis of lumbar region with neurogenic claudication Spinal stenosis, lumbar region, with neurogenic claudication documented in this encounter Care Teams Counselor At Law Relationship Specialty Start Date End Date Priyanka Falcon MD [address] [place] [address] [place] [address] PCP - General Family Medicine 01/04/19 documented as of this encounter"
--- OUTSIDE RECORDS SUMMARY | 2023-02-21 00:30 | External Medical Summary | Summary of Care ---
Author Name Unknown Organization [facility] Address [address] [place] [address] Phone [phone] Care Team Providers Care Director Of Video Analytics Name Role Phone Priyanka Falcon MD Primary Care Prov ider Reason for Visit * Reason Comments Outpatient Testing Encounter Details Date Type Department Care Team (Late st Contact Info) Description 01/19/2023 1:00 PM EST Laboratory Laboratory [address] [place] [phone] [place] [address] Encounter for long-term (current) use of other medications; Dysuria; Heart failure, diastolic, with acute decompensation ([facility]); Chronic kidney disease, stage 3a ([facility]); Encounter for monitoring diuretic therapy Allergies Active Allergy Reactions Criticality Noted Date Comments Naproxen Sodium Bleeding High 12/03/2009 Hs of GI bleed Aspirin Bleeding High 12/03/2009 Doxycycline Neuro complications (Please comment) Medium 10/23/2010 Hallucinations Ibuprofen Bleeding High 12/03/2009 Hx of GI bleed Nitrofurantoin Monohydrate Macrocrystals Neuro complications (Please comment) Low 09/16/2009 Headaches Fydgmgcd-Uukxvlooq-Kb 01/25/2011 Caused eye problems Neosporin 05/30/2003 rash Sulfa Antibiotics 05/11/2002 nausea & vomiting Tramadol Hcl Unknown 12/03/2009 Triamterene 11/16/2022 ulcers documented as of this encounter (statuses as of 01/19/2023) Medications Medication Sig Dispensed Refills Start Date [...] FOR ITCHING 30 g 2 05/28/2020 Active Postmaster VerDisrupt CK In Vitro Strip (Glucose Blood)Indications: Type 2 diabetes mellitus with hemoglobin A1c goal of less than 7.5% (HCC) Use to test blood sugar once a day DX e11.9 100 Strip 3 05/14/2021 Active Postmaster Verio Flex System w/Device KitIndications:Typ e 2 [...] hemoglobin A1c goal of less than 7.5% ([facility]) TAKE 1 TABLET BY MOUTH TWICE A DAY WITH BREAKFAST AND SUPPER 180 Tablet 1 09/08/2022 Active OneTouch Delica Plus [id number] ns:Type 2 diabetes mellitus with hemoglobin A1c [...] Oral Tablet (Coumadin)Indicati ons:Atrial flutter, unspecified type ([facility]),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,longterm current use of anticoagulant therapy,PAF (paroxysmal atrial fibrillation) ([facility]) TAKE 1-2 TABLETS BY MOUTH DAILY DIRECTED BY ANTICOAGULATION CLINIC 100 Tablet 3 12/05/2022 Active OneTouch Ultra In Vitro Strip (Glucose Blood)Indications: Type 2 diabetes mellitus with hemoglobin A1c goal of less than 7.0% ([facility]) USE TO TEST ONCE PER DAY. E11.9 100 Strip 5 12/08/2022 Active glipiZIDE ER 2.5 MG Oral Tablet Extended Release 24 Hour (Glucotrol XL)Indications:Typ e 2 diabetes mellitus with hemoglobin A1c goal of less than 7.5% ([facility]) TAKE 1 TABLET BY MOUTH [...] as of this encounter (statuses as of 01/19/2023) Active Problems Problem Noted Date Diagnosed Date [...] as of this encounter (statuses as of 01/19/2023) Resolved Problems Problem Noted Date Diagnosed Date [...] as of this encounter (statuses as of 01/19/2023) Immunizations Name Administration Dates Next Due COVID-19 [...] on file documented as of this encounter Plan of Treatment Upcoming Encounters Date Type Department Care Team (Latest Contact Info) Description 01/25/2023 11:50 AM EST 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 Pharmacy, [facility] [address] [place] [address] [facility] [place] [address] [place] [address] 01/25/2023 1:00 PM EST Hospital Encounter OR [facility], Operating Room [facility] [address] [place] [phone] Andrey Still, DO [address] [place] [address] 01/25/2023 1:00 PM EST - 01/25/2023 1:20 PM EST Surgery OR [facility], Operating Room [facility] [address] [place] [phone] Andrey Still, DO [address] [place] [address] INJECTION SPINE LUMBAR OR SACRAL 02/08/2023 1:00 PM EST 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 Pharmacy, [address] [place] [phone] [place] [address] 02/24/2023 2:30 PM EST Office Visit Nephrology [address] [place] [address] [facility] [address] 07/04/2023 11:30 AM EDT Office Visit Family Medicine [address] [place] [phone] Liliane Lobato[address] [place] [address] 07/27/2023 1:30 PM EDT Office Visit Cardiology [address] [place] [phone] Cameron Becerra PA-C [address] [place] [address] Pending Results Name Type Priority Associated Diagnoses Date /Time AST Lab Routine Encounter for long-term (current) use of other medications 01/19/2023 1:01 PM EST ALT Lab Routine Encounter for long-term (current) use of other medications 01/19/2023 1:01 PM EST URINALYSIS, REFLEX TO MICROSCOPIC Lab Routine Dysuria 01/19/2023 1:01 PM EST CULTURE, URINE, QUANTITATIVE Lab Routine Dysuria 01/19/2023 1:01 PM EST BASIC METABOLIC PANEL Lab Routine Heart failure, diastolic, with acute decompensation (HCC) Chronic kidney disease, stage 3a (HCC) Encounter for monitoring diuretic therapy 01/19/2023 1:01 PM EST Scheduled Procedures Name [...] 03/15/2022, , 09/26/2019, Additional history exists HbA1c 05/17/2023 11/16/2022, 11/12, 04/28/2021, Additional history exists Albumin/Creatinine Ratio 11/17/2023 023, 03/29/2022, 01/06/2021, Additional history exists CKD HGB USE SMARTSET 78975 11/17/202311/16, 11/16/2022, 12/03/2021, Additional history exists CKD PHOS USE SMARTSET 60089 11/22/202311/11, 01/06/2021, 05/28/2020, Additional history exists DXA Scan 12/09/2027 12/08/2020, [...] as of this encounter Visit Diagnoses Diagnosis Encounter for long-term (current) use of other medications Dysuria Heart failure, diastolic, with acute decompensation (HCC) Acute on chronic diastolic heart failure Chronic kidney disease, stage 3a (HCC) Encounter for monitoring diuretic therapy Encounter for therapeutic drug monitoring Spinal stenosis of lumbar region with neurogenic claudication Spinal stenosis, lumbar region, with neurogenic claudication documented in this encounter Care Teams Director Of Video Analytics Relationship Specialty Start Date End Date Priyanka Falcon MD [address] [place] [address] [place] [address] PCP - General Family Medicine 01/04/19 documented as of this encounter
--- OUTSIDE RECORDS SUMMARY | 2023-02-21 00:30 | External Medical Summary | Summary of Care ---
Author Name Unknown Organization [facility] Address [address] [place] [address] Phone [phone] Care Team Providers Care Systems Spec Name Role Phone Priyanka Falcon MD Primary Care Prov ider Reason for Visit * Reason Comments Outpatient Testing Encounter Details Date Type Department Care Team (Late st Contact Info) Description 01/19/2023 1:00 PM EST Laboratory Laboratory [address] [place] [phone] [place] [address] Encounter for long-term (current) use of other medications; Dysuria; Heart failure, diastolic, with acute decompensation ([facility]); Chronic kidney disease, stage 3a ([facility]); Encounter for monitoring diuretic therapy Allergies Active Allergy Reactions Criticality Noted Date Comments Naproxen Sodium Bleeding High 12/03/2009 Hs of GI bleed Aspirin Bleeding High 12/03/2009 Doxycycline Neuro complications (Please comment) Medium 10/23/2010 Hallucinations Ibuprofen Bleeding High 12/03/2009 Hx of GI bleed Nitrofurantoin Monohydrate Macrocrystals Neuro complications (Please comment) Low 09/16/2009 Headaches Aukdpfip-Vgqcndthi-Uq 01/25/2011 Caused eye problems Neosporin 05/30/2003 rash [...] FOR ITCHING 30 g 2 05/28/2020 Active Blipify VerDemdex In Vitro Strip (Glucose Blood)Indications: Type 2 diabetes mellitus with hemoglobin A1c goal of less than 7.5% (HCC) Use to test blood sugar once a day DX e11.9 100 Strip 3 05/14/2021 Active Blipify Verio Flex System w/Device KitIndications:Typ e 2 [...] hemoglobin A1c goal of less than 7.5% ([facility]) TAKE 1 TABLET BY MOUTH TWICE A DAY WITH BREAKFAST AND SUPPER 180 Tablet 1 09/08/2022 Active OneTouch Delica Plus [id number] ns:Type 2 diabetes mellitus with hemoglobin A1c [...] Oral Tablet (Coumadin)Indicati ons:Atrial flutter, unspecified type ([facility]),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,senior living current use of anticoagulant therapy,PAF (paroxysmal atrial fibrillation) ([facility]) TAKE 1-2 TABLETS BY MOUTH DAILY DIRECTED BY ANTICOAGULATION CLINIC 100 Tablet 3 12/05/2022 Active OneTouch Ultra In Vitro Strip (Glucose Blood)Indications: Type 2 diabetes mellitus with hemoglobin A1c goal of less than 7.0% ([facility]) USE TO TEST ONCE PER DAY. E11.9 100 Strip 5 12/08/2022 Active glipiZIDE ER 2.5 MG Oral Tablet Extended Release 24 Hour (Glucotrol XL)Indications:Typ e 2 diabetes mellitus with hemoglobin A1c goal of less than 7.5% ([facility]) TAKE 1 TABLET BY MOUTH DAILY [...] Description 01/25/2023 11:50 AM EST 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 Pharmacy, [facility] [address] [place] [address] [facility] [place] [address] [place] [address] 01/25/2023 1:00 PM EST Hospital Encounter OR [facility], Operating Room [facility] [address] [place] [phone] Andrey Still, DO [address] [place] [address] 01/25/2023 1:00 PM EST - 01/25/2023 1:20 PM EST Surgery OR [facility], Operating Room [facility] [address] [place] [phone] Andrey Still, DO [address] [place] [address] INJECTION SPINE LUMBAR OR SACRAL 02/08/2023 1:00 PM EST 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 Pharmacy, [address] [place] [address] [place] [address] 02/24/2023 2:30 PM EST Office Visit Nephrology [address] [place] [address] Rad[facility]yman [facility] [address] 07/04/2023 11:30 AM EDT Office Visit Family Medicine [address] [place] [phone] Liliane Lobato[address] [place] [address] 07/27/2023 1:30 PM EDT Office Visit Cardiology [address] [place] [address] Cameron Becerra PA-C [address] [place] [address] Pending Results Name Type Priority Associated Diagnoses [...] Additional history exists CKD HGB USE SMARTSET 34874 11/17/202311/16, 11/16/2022, 12/03/2021, Additional history exists CKD PHOS USE SMARTSET 70703 11/22/202311/11, 01/06/2021, 05/28/2020, Additional history exists DXA [...] claudication documented in this encounter Care Teams Systems Spec Relationship Specialty Start Date End Date Priyanka Falcon MD [address] [place] [address] [place] [address] PCP - General Family Medicine 01/04/19 documented as of this encounter
--- OUTSIDE RECORDS SUMMARY | 2023-02-21 00:31 | External Medical Summary ---
Author Name Unknown Address Unknown Organization K01:[facility] [place] - [facility] [address] [facility] [address] [place] [address] Laboratory Report Ordering Provider Test Date Status JENNI HOANG 01/19/2023 13:01:38 Final Observation Date Value Abnormality Reference (Units ) Status BUN 01/19/2023 13:01:38 22 Above high normal 6-20 (mg/dL) Final Creatinine 01/19/2023 13:01:38 1.2 Above high normal 0.5-1.0 (mg/dL) Final Glomerular filtration rate/1.73 sq M.predicted [Volume Rate/Area] in Serum, Plasma or Blood by Creatinine-based formula (CKD-EPI) 01/19/2023 13:01:38 44 Below low normal >=60 (mL/min) Final eGFR is calculated based on the CKD-EPI 2020 equation SODIUM 01/19/2023 13:01:38 139 135-146 (m mol/L) Final Potassium 01/19/2023 13:01:38 4.7 3.5-5.1 (m mol/L) Final Cl 01/19/2023 13:01:38 103 98-107 (mm ol/L) Final CO2 01/19/2023 13:01:38 23 22-32 (mmo l/L) Final Anion gap 01/19/2023 13:01:38 13 7-15 (mmol /L) Final Glucose 01/19/2023 13:01:38 149 Above high normal 70 -120 (mg/dL) Final Calcium 01/19/2023 13:01:38 9.1 8.4-10.2 ( mg/dL) Final Performing Location [facility] [place] - [address] [place] [address]
--- OUTSIDE RECORDS SUMMARY | 2023-02-21 00:31 | External Medical Summary | Summary of Care ---
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 Name Role Phone Priyanka Falcon MD Primary Care Prov ider Reason for Referral * Evaluate & Treat - Unlimited Visits (Within 10 days (routine)) - Authorized Specialty Diagnoses / Procedures Referred By Contac t Referred To Contact Physical Therapy / Physical Medicine And Rehab Diagnoses Spinal stenosis of lumbar region, unspecified whether neurogenic claudication present Lumbar radiculopathy Chronic low back pain with sciatica, sciatica laterality unspecified, unspecified back pain laterality Weakness of left lower extremity Celso Zayas MD [address] [facility] [address] [place] [address] Referral ID Status Reason Start Date Expiration Date Visits Requested Visits Authorized [id number] Authorized Specialty Services Required 3 [phone] Question Answer Referral Priority Within 10 days (routine) Where should this appointment be scheduled? [facility] Comments Plan: Back core strengthening, stretching, ROM, conditioning, lower extremity strengthening as needed, topicals as needed 2 x a week for 6 weeks Modalities for pain relief Reason for Visit * Reason Comments NEW PATIENT Lower back pain * Evaluate & Treat - Unlimited Visits (Within 10 days (routine)) - Authorized Specialty Diagnoses / Procedures Referred By Contac t Referred To Contact Neuro/Ortho Surgery - Spine. / Neurological Surgery Diagnoses Spondylolysis of lumbar region Spinal stenosis of lumbar region, unspecified whether neurogenic claudication present Eddie Sharp MD [address] [place] [id number] Referral ID Status Reason Start Date Expiration Date Visits Requested Visits Authorized [id number] Authorized Specialty Services Required 09/27/[phone] Encounter Details Date Type Department Care Team (Late st Contact Info) Description 01/06/2023 1:30 PM EDT Office Visit Orthopaedics Spine Surgery, [facility] [address] [place] [id number] Celso Zayas MD [address] [place] [address] Spinal stenosis of lumbar region, unspecified whether neurogenic claudication present*; Lumbar radiculopathy; Chronic low back pain with sciatica, sciatica laterality unspecified, unspecified back pain laterality; Weakness of left lower extremity Allergies Active Allergy Reactions Criticality Noted Date Comments Naproxen Sodium Bleeding High 12/03/2009 Hs of GI bleed Aspirin Bleeding High 12/03/2009 Doxycycline Neuro complications (Please comment) Medium 10/23/2010 Hallucinations Ibuprofen Bleeding High 12/03/2009 Hx of GI bleed Nitrofurantoin Monohydrate Macrocrystals Neuro complications (Please comment) Low 09/16/2009 Headaches Lwnqvbsc-Fuanokxyl-Sm 01/25/2011 Caused eye problems Neosporin 05/30/2003 rash Sulfa Antibiotics 05/11/2002 nausea & vomiting Tramadol Hcl Unknown 12/03/2009 Triamterene 11/16/2022 ulcers documented as of this encounter (statuses as of 01/06/2023) Medications Medication Sig Dispensed Refills Start Date End Date Status ASPIRIN 81 MG PO TABS None Entered 0 Active [facility] VITAMIN B12 1000 MCG PO TABSIndications:Vi [...] FOR ITCHING 30 g 2 05/28/2020 Active OneTouch Verio In Vitro Strip (Glucose Blood)Indications: Type 2 diabetes mellitus with hemoglobin A1c goal of less than 7.5% ([facility]) Use to test blood sugar once a day DX e11.9 100 Strip 3 05/14/2021 Active OneTouch Verio Flex System w/Device KitIndications:Typ e 2 diabetes mellitus with hemoglobin A1c goal of less than 7.5% ([facility]) Use as directed . Use to test [...] 180 days 1 Each 1 03/29/2022 Active Lisinopril 20 MG Oral Tablet (Prinivil)Indicati ons:Essential [...] hemoglobin A1c goal of less than 7.5% ([facility]) TAKE 1 TABLET BY MOUTH TWICE A DAY WITH BREAKFAST AND SUPPER 180 Tablet 1 09/08/2022 Active OneTouch Delica Plus [id number] ns:Type 2 diabetes mellitus with hemoglobin A1c goal of less than 7.5% ([facility]) Use as directed. 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 90 Tablet 1 12/08/2022 Active OneTouch Ultra In Vitro Strip (Glucose Blood)Indications: Type 2 diabetes mellitus with hemoglobin A1c goal of less than 7.0% ([facility]) USE TO TEST ONCE PER DAY. E11.9 100 Strip 5 12/08/2022 Active glipiZIDE ER 2.5 MG Oral Tablet Extended Release 24 Hour (Glucotrol XL)Indications:Typ e 2 diabetes mellitus with hemoglobin A1c goal of less than 7.5% ([facility]) TAKE 1 TABLET BY MOUTH DAILY 30 MINUTES BEFORE A MEAL 90 Tablet 1 12/26/2022 Active amLODIPine Besylate 2.5 MG Oral Tablet (Norvasc)Indicatio ns:Essential hypertension with goal blood pressure less than 140/90 TAKE 1 TABLET BY MOUTH EVERY DAY IN THE MORNING 90 Tablet 3 12/29/2022 Active documented as of this encounter (statuses as of 01/06/2023) Active Problems Problem Noted Date Diagnosed Date [...] as of this encounter (statuses as of 01/06/2023) Resolved Problems Problem Noted Date Diagnosed Date [...] as of this encounter (statuses as of 01/06/2023) Immunizations Name Administration Dates Next Due COVID-19 [...] Tobacco: Never Alcohol Use Standard Drinks/Week Comments Not Currently 0 (1 standard drink = 0.6 oz pur e alcohol) occassional wine/beer PHQ-2 Answer Date Recorded PHQ Adult Total [...] as of this encounter Progress Notes * Celso Zayas MD - 01/06/2023 1:21 PM EDT Date of service: 01/06/2023 CHIEF COMPLAINT: Cristine Benitez is a 87 year old female presents with complaints/concerns of persistent back pain with lower extremity radiculopathy and neurogenic claudication. She also complains of lower extremity dysfunction and weakness left side being more significant. These are longstanding symptoms that have been going on for several years. Patient has done some conservative treatment for this in the past with partial relief. She is also scheduled to get epidural injections with Dr. Still. Patient denies any acute progressive neurological deficit, bowel bladder disturbances or constitutional symptoms. New Referring physician:Dr. 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 Sharp at [facility] in [place], notes stopped around PT in June does some exercising at home. Chiropractor therapy:yes Brace use: Pain management and Spinal injections: Dr. Still, is scheduled for 01/25/2023 injection Spine surgery - Surgeon and year:no Significant Medical history: If diabetic HbA1c:11/16/2022 7.9 On blood thinners:coumadin, no longer aspirin Osteoporosis screenin12/08/2020 Tobacco/ Illicit drug use:no Work profile; retired Allergies: Aleve [naproxen sodium], Aspirin, Ibuprofen, Doxycycline, Yrcigfyu-unsutlxiz-jf [osbmocdi-buzelhanz-rb], Neosporin, Sulfa antibiotics, Tramadol hcl, Triamterene, and Macrobid [nitrofurantoin monohydrate macrocrystals] The past medical, surgical, medication, family and social history was reviewed and is documented elsewhere in the chart. ROS: Negative except as outlined in HPI Vitals: There were no vitals taken for this visit. There is no height or weight on file to calculate BMI. Physical Exam: General: alert, healthy and no distress Constitutional: The general appearance appears normal. Respiratory: Breathing is nonlabored, thoracic. No use of accessory muscles. Cardiovascular system: Vascularity grossly preserved Spine evaluation Cervical, thoracic and lumbar spine: No paraspinal swelling. No deformity. Straight leg raise test: Right-side - negative, left side negative Neurological examination: Motor power upper extremities - Bilateral shoulder abductors, elbow flexors, triceps, wrist flexorsand extensors and intrinsic muscles of the hand is 5/5. Motor power lower extremities - Bilateral hip flexors, knee extensors, ankle dorsiflexors, plantar flexors, EHL/EDL, FHL/FDL is 5/5. The deep tendon reflexes - Bilateral Biceps, triceps, brachioradialis, Patellar tendon, Achilles tendon are 2+ Sensation are grossly preserved bilaterally in upper extremities. Sensation are grossly preserved bilaterally in the lower extremities. Radiological imaging: I independently reviewed the relevant radiological imaging including x-rays ordered at this visit X-rays of the lumbar spine including dynamic view show evidence of degenerative changes. There is diffuse osteopenia. There is retrolisthesis at L2-3. There is anterolisthesis at L3-4, L4-5. MRI of the lumbar spine 10/21/2022: Significant L3-4, L4-5 central stenosis, L2-3, L5 spine foraminal stenosis. Assessment & Plan: Pt is a 87 year old female here for the following problems/concerns: Lumbar back pain Lumbar radiculopathy Lumbar spinal stenosis Neurogenic claudication Left lower extremity weakness We discussed the diagnosis, the natural history and the treatment options. Based on the clinical and radiological findings various treatment options including the risks, benefits and alternatives were discussed. Patient is neurologically stable and has chronic symptoms in relation to the lumbar spinal stenosis. She also has significant medical comorbidities and is 87 years old. At this point of time she may not be a suitable candidate for major spine intervention as the risks outweigh the benefits. We had a detailed discussion about this. The role of other conservative modalities including pain management physical therapy referral we discussed. Physical therapy referral was made. Role of back brace and other modalities for pain relief was also discussed. All the questions from the patient were answered Additional recommendations: Activity modification as tolerated Pain medications as per the primary care. Adverse effects and appropriate precautions were discussed. If the patient has persistence or worsening of symptoms additional investigations will be recommended. Warning signs have been discussed. Follow up: The patient is going to call back for reassessment. Reach out earlier if any worsening of symptoms. The patient expressed understanding and agreement to the plan. Complexity of decision making: High I spent 45 minutes on 01/06/2023 in preparation, delivery and documentation of the care provided tothe patient, excluding any time spent on the performance of the procedure are separately billable service. Celso Zayas MD This chart was completed in part utilizing [employer] Speech Voice Recognition Software. Grammatical errors, random word insertions, prounoun errors and incomplete sentences are an occasional consequence of this system due to software limitations, ambient noise, and hardware issues. Any formal questions or concerns about the content, text, or information contained within the body of this dictation should be directly addressed to the provider for clarification. documented in this encounter Nursing Notes * Isa Meza LPN - 01/06/2023 1:07 PM EDT New Referring physician:Dr. 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 Sharp at [facility] in [place], notes stopped around PT in June does some exercising at home. Chiropractor therapy:yes Brace use: Pain management and Spinal injections: Dr. Still, is scheduled for 01/25/2023 injection Spine surgery - Surgeon and year:no Significant Medical history: If diabetic HbA1c:11/16/2022 7.9 On blood thinners:coumadin, no longer aspirin Osteoporosis screenin12/08/2020 Tobacco/ Illicit drug use:no Work profile; retired documented in this encounter Plan of Treatment Upcoming Encounters Date Type Department Care Team (Latest Contact Info) Description 01/19/2023 12:30 PM EST Office Visit Cardiology [address] [place] [address] Cameron Becerra PA-C [address] [place] [address] 01/25/2023 11:50 AM EST 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 Pharmacy, [facility] [address] [place] [id number] [place] [address] [place] [address] 01/25/2023 1:00 PM EST Hospital Encounter OR [facility], Operating Room [facility] [address] [place] [phone] Andrey Still, DO [address] [place] [id number] 01/25/2023 1:00 PM EST - 01/25/2023 1:20 PM EST Surgery OR [facility], Operating Room [facility] [address] [place] [phone] Andrey Still, DO [address] [place] [address] INJECTION SPINE LUMBAR OR SACRAL 02/08/2023 1:00 PM EST 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 Pharmacy, [address] [place] [address] [place] [address] 02/24/2023 2:30 PM EST Office Visit Nephrology [address] [place] [address] ZeRadha hough PA-C [address] [facility] [address] 07/04/2023 11:30 AM EDT Office Visit Family Medicine [address] [place] [phone] Liliane Lobato [address] [place] [phone] Scheduled Procedures Name Priority Associated Diagnoses Date/Ti me INJECTION SPINE LUMBAR OR SACRAL Spinal stenosis of lumbar region with neurogenic claudication 01/25/2023 1:00 PM EST Scheduled Referrals Name Type Priority Associated Diagnoses Orde r Schedule PHYSICAL THERAPY REFERRAL OP Referral Within 10 days (routine) Spinal stenosis of lumbar region, unspecified whether neurogenic claudication present Lumbar radiculopathy Chronic low back pain with sciatica, sciatica laterality unspecified, unspecified back pain laterality Weakness of left lower extremity Ordered: 01/06/2023 Health Maintenance Due Date Last Done Comments Hepatitis B (1 of 3 - Risk 3-dose series) 1994 Zoster Vaccines (2 of 3) 08/02/2010 06/07/2010 Depression Screening 08/03/2021 08/03/2020 Diabetic Foot Exam 02/08/2023 02/08/2022, 0 05/28/2020, 05/17/2019, Additional history exists DIABETES-EYE EXAM 03/15/2023 03/15/2022, , 09/26/2019, Additional history exists HbA1c 05/17/2023 11/16/2022, 11/12, 04/28/2021, Additional history exists Albumin/Creatinine Ratio 11/17/2023 023, 03/29/2022, 01/06/2021, Additional history exists CKD HGB USE SMARTSET 30100 11/17/202311/16, 11/16/2022, 12/03/2021, Additional history exists CKD PHOS USE SMARTSET 24254 11/22/202311/11, 01/06/2021, 05/28/2020, Additional history exists DXA [...] as of this encounter Visit Diagnoses Diagnosis Spinal stenosis of lumbar region, unspecified whether neurogenic claudication present- Primary Lumbar radiculopathy Thoracic or lumbosacral neuritis or radiculitis, unspecified Chronic low back pain with sciatica, sciatica laterality unspecified, unspecified back pain laterality Weakness of left lower extremity Spinal stenosis of lumbar region with neurogenic claudication Spinal stenosis, lumbar region, with neurogenic claudication documented in this encounter Care Teams Tightening Machine Operator Relationship Specialty Start Date End Date Priyanka Falcon MD [address] [place] [address] [place] [phone] PCP - General Family Medicine 01/04/19 documented as of this encounter
--- OUTSIDE RECORDS SUMMARY | 2023-02-21 00:31 | External Medical Summary ---
Author Name Unknown Address Unknown Organization [id number]:LABORATORY [facility] [place] - [address] [facility] [address] Laboratory Report Ordering Provider Test Date Status JENNI HOANG 01/19/2023 13:01:38 Final Observation Date Value Abnormality Reference (Units ) Status Color of Urine by Auto 01/19/2023 13:01:38 Light Yellow Colorless, Light Yellow, Yellow, Dark Yellow Final Clarity, Urine 01/19/2023 13:01:38 Slightly Cloudy Abnormal Clear Final Glucose [Mass/volume] in Urine by Automated test strip 01/19/2023 13:01:38 Negative Negative (mg/dL) Final Bilirubin.total [Presence] in Urine by Automated test strip 01/19/2023 13:01:38 Negative Negative Final Ketones [Mass/volume] in Urine by Automated test strip 01/19/2023 13:01:38 Negative Negative (mg/dL) Final Specific gravity, Urine 01/19/2023 13:01:38 1.015 1.003-1.030 Final Hemoglobin [Presence] in Urine by Automated test strip 01/19/2023 13:01:38 Negative Negative Final pH, Urine 01/19/2023 13:01:38 6.0 5.0-7.5 (Units) Final Protein [Mass/volume] in Urine by Automated test strip 01/19/2023 13:01:38 Trace Abnormal Negative (mg/dL) Final Urobilinogen [Mass/volume] in Urine by Automated test strip 01/19/2023 13:01:38 Normal Normal (mg/dL) Final Nitrite [Presence] in Urine by Automated test strip 01/19/2023 13:01:38 Negative Negative Final Leukocyte esterase [Presence] in Urine by Automated test strip 01/19/2023 13:01:38 Large Abnormal Negative Final RBC, Urine 01/19/2023 13:01:38 0-2 0-2 (/HPF) Final WBC, Urine 01/19/2023 13:01:38 50+ Abnormal 0-2 (/HPF) Final Bacteria [#/area] in Urine sediment by Microscopy high power field 01/19/2023 13:01:38 0-25 0-25 (/HPF) Final Hyaline casts, Urine 01/19/2023 13:01:38 1-4 Abnormal None (/LPF) Final Performing Location LABORATORY [facility] - [facility] [address] [facility] [address]
--- OUTSIDE RECORDS SUMMARY | 2023-02-21 00:31 | External Medical Summary ---
Author Name Unknown Address Unknown Organization : Laboratory Report Ordering Provider Test Date Status ZURDO LUNA 01/05/2023 13:28:56 Final Therapeutic ranges for non-o perative patients:
Prophylaxsis/treatment of DVT: (Range:2.0-3.0)
Treatment of pulmonary embolism:(Range:2.0-3.0)
Prevention of systemic embolism from:
-tissue heart valves
-acute myocardial infarction
-valvular heart disease
-atrial fibrillation
(Range: 2.0-3.0)
Mechanical prosthetic valves: (Range: 2.5-3.5) Observation Date Value Abnormality Reference (Units ) Status INR in Capillary blood by Coagulation assay 01/05/2023 13:28:56 2.8 (INR) Final Performing Location
--- OUTSIDE RECORDS SUMMARY | 2023-02-21 00:31 | External Medical Summary ---
Author Name Unknown Address Unknown Organization K01:[place] [facility] [place] [address] [place] [address] Laboratory Report Ordering Provider Test Date Status JENNI HOANG 01/19/2023 13:01:38 Final Observation Date Value Abnormality Reference (Units ) Status ALT (Alanine aminotransferase) 01/19/2023 13:01:38 15 10-35 (U/L) Final Performing Location LAB[facility]ATORY [facility] - [address] [facility] [address]
--- OUTSIDE RECORDS SUMMARY | 2023-02-21 00:31 | External Medical Summary | Summary of Care ---
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 Allergies Active Allergy Reactions Criticality Noted Date Comments Naproxen Sodium Bleeding High 12/03/2009 Hs of GI bleed Aspirin Bleeding High 12/03/2009 Doxycycline Neuro complications (Please comment) Medium 10/23/2010 Hallucinations Ibuprofen Bleeding High 12/03/2009 Hx of GI bleed Nitrofurantoin Monohydrate Macrocrystals Neuro complications (Please comment) Low 09/16/2009 Headaches Hygzpaey-Kcnrjvcxg-Lj 01/25/2011 Caused eye problems Neosporin 05/30/2003 rash Sulfa Antibiotics 05/11/2002 nausea & vomiting Tramadol Hcl Unknown 12/03/2009 Triamterene 11/16/2022 ulcers documented as of this encounter (statuses as of 01/05/2023) Medications Medication Sig Dispensed Refills Start Date [...] FOR ITCHING 30 g 2 05/28/2020 Active [employer] In Vitro Strip (Glucose Blood)Indications: Type 2 diabetes mellitus with hemoglobin A1c goal of less than 7.5% (HCC) Use to test blood sugar once a day DX e11.9 100 Strip 3 05/14/2021 Active [employer] Verio Flex System w/Device KitIndications:Typ e 2 [...] hemoglobin A1c goal of less than 7.5% ([facility]) TAKE 1 TABLET BY MOUTH TWICE A DAY WITH BREAKFAST AND SUPPER 180 Tablet 1 09/08/2022 Active OneTouch Delica Plus [id number] ns:Type 2 diabetes mellitus with hemoglobin A1c goal of less than 7.5% ([facility]) Use as directed. 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 90 Tablet 1 12/08/2022 Active OneTouch Ultra In Vitro Strip (Glucose Blood)Indications: Type 2 diabetes mellitus with hemoglobin A1c goal of less than 7.0% ([facility]) USE TO TEST ONCE PER DAY. E11.9 100 Strip 5 12/08/2022 Active glipiZIDE ER 2.5 MG Oral Tablet Extended Release 24 Hour (Glucotrol XL)Indications:Typ e 2 diabetes mellitus with hemoglobin A1c goal of less than 7.5% ([facility]) TAKE 1 TABLET BY MOUTH DAILY 30 MINUTES BEFORE A MEAL 90 Tablet 1 12/26/2022 Active amLODIPine Besylate 2.5 MG Oral Tablet (Norvasc)Indicatio ns:Essential hypertension with goal blood pressure less than 140/90 TAKE 1 TABLET BY MOUTH EVERY DAY IN THE MORNING 90 Tablet 3 12/29/2022 Active documented as of this encounter (statuses as of 01/05/2023) Active Problems Problem Noted Date Diagnosed Date [...] as of this encounter (statuses as of 01/05/2023) Resolved Problems Problem Noted Date Diagnosed Date [...] as of this encounter (statuses as of 01/05/2023) Immunizations Name Administration Dates Next Due COVID-19 [...] encounter Progress Notes * Freda Curtis, [facility] - 01/05/2023 1:17 PM EDT Medication Therapy Disease Management - 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 Patient: Cristine Benitez | : 1935 Subjective Patient-Reported Symptoms: Patient Findings Positives: Upcoming invasive procedure Negatives: Signs/symptoms of thrombosis, Signs/symptoms of bleeding, Change in health, Change in alcohol use, Change in activity, Missed doses, Extra doses, Change in medications, Change in diet/appetite, Bruising Objective Current Warfarin Dose As of 01/05/2023 Warfarin maintenance plan: 4 mg (2 mg x 2) every Wed; 2 mg (2 mg x 1) all other days INR Result As of 01/05/2023 INR goal: 2.0-3.0 INR used for dosin.8 (01/05/2023) Assessment & Plan Warfarin Plan As of 01/05/2023 Full warfarin instructions: 01/20: Hold; 01/21: Hold; 01/22: Hold; 01/23: Hold; 01/24: Hold; 01/26:4 mg; Otherwise 4 mg every Wed; 2 mg all other days Next INR check: 01/25/2023 Repeat PT/INR in 3 week(s) day of procedure, 2 weeks post procedure Weekly dose: not changed Additional Dosing Information: Epidural steroid injection with Dr Still scheduled for 01/25/23. Per previous encounter, x5 day hold no Lovenox needed. January 19 () Last day of warfarin January 20 (Monday) NO WARFARIN January 21 (Monday) NO WARFARIN January 22 (Monday) NO WARFARIN January 23 (Monday) NO WARFARIN January 24 () NO WARFARIN January 25 (Procedure) (Monday) 4mg (2 tablets) January 26 () 4mg (2 tablet) January 27 (Monday) Return to normal dose Cristine Benitez ( 1935) Procedure: January 25 Description Write tablets only on card Freda Curtis RPh Clinical Pharmacist 01/05/2023, 1:17 PM documented in this encounter Plan of Treatment Upcoming Encounters Date Type Department Care Team (Late st Contact Info) Description 01/06/2023 1:30 PM EDT Office Visit Orthopaedics Spine Surgery, [address] [place] [address] Celso Zayas MD [address] [place] [address] 01/19/2023 12:30 PM EST Office Visit Cardiology [address] [place] [address] aCmeron Becerra PA-C [address] [place] [address] 01/25/2023 11:50 AM EST 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 Pharmacy, [facility] [address] [place] [address] [facility] [address] [place] [address] 01/25/2023 1:00 PM EST Hospital Encounter OR [facility], Operating Room [facility] [address] [place] [phone] Andrey Still, DO [address] [place] [address] 01/25/2023 1:00 PM EST - 01/25/2023 1:20 PM EST Surgery OR [facility], Operating Room [facility] [address] [place] [phone] Andrey Still, [address] [place] [address] INJECTION SPINE LUMBAR OR SACRAL 02/08/2023 1:00 PM EST 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 Pharmacy, [address] [place] [address] [place] [address] 02/24/2023 2:30 PM EST Office Visit Nephrology [address] [place] [address] Radha Wyman PA-C [address] [facility] [place] [address] 07/04/2023 11:30 AM EDT Office Visit Family Medicine [address] [place] [phone] [place] [address] [place] [address] Scheduled Procedures Name Priority Associated Diagnoses Date/Ti [...] Additional history exists CKD HGB USE SMARTSET 58097 11/17/202311/16, 11/16/2022, 12/03/2021, Additional history exists CKD PHOS USE SMARTSET 19123 11/22/202311/11, 01/06/2021, 05/28/2020, Additional history exists DXA [...] Comments INR FINGERSTICK, POINT OF CARE STAT 01/05/2023 1:28 PM EDT PAF (paroxysmal atrial fibrillation) (HCC) 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 management encounter 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 documented in this encounter Results * INR FINGERSTICK, POINT OF CARE (01/05/2023 1:28 PM EDT) Fingerstick INR 2.8 INR 1:30 PM EDT [facility] [place] [address] Blood 01/05/2023 1:28 PM EDT 01/05/2023 1:30 PM EDT Narrative [facility] [place] [address] - 01/05/2023 1:30 PM EDT Therapeutic ranges for non-operative patients: Prophylaxsis/treatment of DVT: (Range:2.0-3.0) Treatment of pulmonary embolism:(Range:2.0-3.0) Prevention of systemic embolism from: -tissue heart valves -acute myocardial infarction -valvular heart disease -atrial fibrillation (Range: 2.0-3.0) Mechanical prosthetic valves: (Range: 2.5-3.5) Freda Curtis [facility] LAB POINT OF CARE TEST DOCKED DEVICE UNSOLICITED RESULTS [facility] [place] [address] [place] [address] documented in this encounter Visit Diagnoses Diagnosis PAF (paroxysmal atrial fibrillation) (HCC)- Primary Atrial fibrillation 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 management encounter Encounter for therapeutic drug monitoring 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
--- OUTSIDE RECORDS SUMMARY | 2023-02-21 00:31 | External Medical Summary ---
Author Name Unknown Address Unknown Organization [id number]:[facility] [place] [address] [facility] [address] Laboratory Report Ordering Provider Test Date Status JENNI HOANG 01/19/2023 13:01:38 Final <10,000 colonies/ml mixed no rmal jerman Observation Date Value Abnormality Reference (Units ) Status Bacteria identified in Specimen by Culture 01/19/2023 13:01:38 [id number]^PROTEUS MIRABILIS Abnormal Final 10,000 to 100,000 colonies/m L Proteus mirabilis Performing Location [facility] - [address] [place] [address] Ordering Provider Test Date Status JENNI HOANG 01/19/2023 13:01:38 Final Observation Date Value Abnormality Reference (Units ) Status Ampicillin 01/19/2023 13:01:38 <=2 Susceptible Final Cefazolin 01/19/2023 13:01:38 <=4 Susceptible Final Cefepime susceptibility 01/19/2023 13:01:38 <=1 Susceptible Final Ceftriaxone suceptibility 01/19/2023 13:01:38 <=1 Susceptible Final Ciprofloxacin 01/19/2023 13:01:38 <=0.25 Susceptible Final Due to serious side effects, the FDA has advised against using Ciprofloxacin to treat uncomplicated UTIs and respiratory tract infections unless there are no alternative treatment options. Gentamicin susceptibility 01/19/2023 13:01:38 <=1 Susc eptible Final Piperacillin + Tazobactamsusceptibility 01/19/2023 13:01:38 <=4 Susceptible Final TMP-SMZ susceptibility 01/19/2023 13:01:38 <=20 Suscept ible Final Test: Culture, Urine, Quanti tative
Specimen Source: Urine, Clean Catch
Specimen Type: Urine
Specimen Date: 01/19/2023 1:01 PM
Result Date: 01/21/2023 6:51 PM
Result Status: Final result
Abnormal: Yes
Resulting Lab: [facility]
[address]
[place] [address]

CULTURE

10,000 to 100,000 colonies/mL Proteus mirabilis (Abnormal)

<10,000 colonies/ml mixed normal jerman

SUSCEPTIBILITY

Proteus mirabilis
METHOD MICROBROTH DILUTIONS

AMPICILLIN <=2 Susceptible
CEFAZOLIN <=4 Susceptible
CEFEPIME <=1 Susceptible
CEFTRIAXONE <=1 Susceptible
CIPROFLOXACIN <=0.25 Susceptible [1]
GENTAMICIN <=1 Susceptible
PIPERACILLIN TAZOBACTAM <=4 Susceptible
TRIMETH/SULFAMETHOXAZOLE <=20 Susceptible

[1] Due to serious side effects, the FDA has advised against using
Ciprofloxacin to treat uncomplicated UTIs and respiratory tract infections
unless there are no alternative treatment options.

null Performing Location [facility] [place] [address] [facility] [address]
--- OUTSIDE RECORDS SUMMARY | 2023-02-21 00:31 | External Medical Summary ---
Author Name Unknown Address Unknown Organization [id number]:[facility] [place] [address] [place] [address] Laboratory Report Ordering Provider Test Date Status JENNI HOANG 01/19/2023 13:01:38 Final Observation Date Value Abnormality Reference (Units ) Status AST (Aspartate aminotransferase) 01/19/2023 13:01:38 18 10-35 (U/L) Final Performing Location [facility] - [address] [facility] [address]
--- OUTSIDE RECORDS SUMMARY | 2023-02-21 00:31 | External Medical Summary ---
Author Name Unknown Address Unknown Organization [id number][facility] [place] [address] [facility] [address] Laboratory Report Ordering Provider Test Date Status JENNI HOANG 01/19/2023 13:07:40 Final Observation Date Value Abnormality Reference (Units ) Status Triglyceride 01/19/2023 13:07:40 127 <=174 ( mg/dL) Final Triglyceride Reference Range s (mg/dL):
<150 Acceptable
150-174 Borderline high
175-499 High
>=500 Very high Cholesterol 01/19/2023 13:07:40 120 <200 (mg /dL) Final Total Cholesterol Reference Ranges (mg/dL):
<200 Desirable
200-239 Borderline high
>=240 High HDL 01/19/2023 13:07:40 36 Below low normal >49 (mg/dL) Final HDL Cholesterol Reference Ra nges (mg/dL):
>=60 High (Desirable)
<50 Low (Undesirable) For Females
<40 Low (Undesirable) For Males NON-HDL CHOLESTEROL 01/19/2023 13:07:40 84 <=159 (mg/dL) Final Non-HDL Cholesterol Referenc e Range (mg/dL):
<100 Target level for high risk ASCVD patient
<130 Optimal for general population
130-159 Near optimal for general population
160-189 Borderline High
190-219 High
>=220 Very High LDL, (calculated) 01/19/2023 13:07:40 59 <= 129 (mg/dL) Final LDL Cholesterol Reference Ra nges (mg/dL):
<70 Target level for high risk ASCVD patient
<100 Optimal for general population
100-129 Near optimal for general population
130-159 Borderline high
160-189 High
>=190 Very high Performing Location [facility] [place] [address] [facility] [address]
--- OUTSIDE RECORDS SUMMARY | 2023-02-21 00:31 | External Medical Summary | Summary of Care ---
Author Name Unknown Organization [facility] Address [address] [place] [address] Phone [phone] Care Team Providers Care Head Setter Name Role Phone Priyanka Falcon MD Primary Care Prov ider Reason for Visit * Reason Onset Date Comments FYI 01/05/2023 Encounter Details Date Type Department Care Team (Late st Contact Info) Description 01/05/2023 Telephone Orthopaedics Spine Surgery, Danitza Hightower [address] [place] [address] Celso Zayas MD [address] [place] [address] FYI Allergies Active Allergy Reactions Criticality Noted Date Comments Naproxen Sodium Bleeding High 12/03/2009 Hs of GI bleed Aspirin Bleeding High 12/03/2009 Doxycycline Neuro complications (Please comment) Medium 10/23/2010 Hallucinations Ibuprofen Bleeding High 12/03/2009 Hx of GI bleed Nitrofurantoin Monohydrate Macrocrystals Neuro complications (Please comment) Low 09/16/2009 Headaches Qulhbqjt-Pzofwoigd-Si 01/25/2011 Caused eye problems Neosporin 05/30/2003 rash [...] FOR ITCHING 30 g 2 05/28/2020 Active [employer] In Vitro Strip (Glucose Blood)Indications: Type 2 diabetes mellitus with hemoglobin A1c goal of less than 7.5% (HCC) Use to test blood sugar once a day DX e11.9 100 Strip 3 05/14/2021 Active [employer] Verio Flex System w/Device KitIndications:Typ e 2 [...] hemoglobin A1c goal of less than 7.5% ([facility]) TAKE 1 TABLET BY MOUTH TWICE A DAY WITH BREAKFAST AND SUPPER 180 Tablet 1 09/08/2022 Active OneTouch Delica Plus [id number] ns:Type 2 diabetes mellitus with hemoglobin A1c goal of less than 7.5% ([facility]) Use as directed. Use to test blood [...] Oral Tablet (Coumadin)Indicati ons:Atrial flutter, unspecified type ([facility]),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,[facility] current use of anticoagulant therapy,PAF (paroxysmal atrial fibrillation) ([facility]) TAKE 1-2 TABLETS BY MOUTH DAILY DIRECTED BY ANTICOAGULATION CLINIC 100 Tablet 3 12/05/2022 Active Furosemide 40 MG Oral Tablet (Lasix) Take 1 Tablet by mouth in the morning. 90 Tablet 1 12/08/2022 Active OneTouch Ultra In Vitro Strip (Glucose Blood)Indications: Type 2 diabetes mellitus with hemoglobin A1c goal of less than 7.0% ([facility]) USE TO TEST ONCE PER DAY. E11.9 100 Strip 5 12/08/2022 Active glipiZIDE ER 2.5 MG Oral Tablet Extended Release 24 Hour (Glucotrol XL)Indications:Typ e 2 diabetes mellitus with hemoglobin A1c goal of less than 7.5% ([facility]) TAKE 1 TABLET BY MOUTH DAILY 30 [...] due to stage 3 chronic kidney disease 01/23/2020 Overview: Per CKD protocol Hypertensive kidney [...] Pre serve, 2-Dose Series (Moderna) 01/13/2021,05/16/2020,04/17/2020 COVID-19, mRNA, LNP-s, PF, B ooster, 100mcg/0.5mg [...] encounter Miscellaneous Notes * Telephone Encounter - Jeane Live LPN - 01/05/2023 11:02 AM EDT New Referring physician:Dr. Sharp HPI: Low back Which side extremity: into both upper legs Injury and date:no Onset, progress and duration: several yrs Balance problems:cane for stability Bladder or bowel disturbances:no Hand dominance for cervical and hand function:right Workman compensation/ Litigation/ Rn Provider Relations: Spine investigations done and date: Xray:10/14/2021 MRI:10/21/2021 CT scan: EMG/ NCV: Spine treatment so far: Medications: hydrocodone Physical therapy within last year:for Dr. Sharp at [facility] in [place] Chiropractnd therapy:yes Brace use: Pain management and Spinal injections: Dr. Still, is scheduled for 01/25/2023 injection Spine surgery - Surgeon and year:no Significant Medical history: If diabetic HbA1c:11/16/2022 7.9 On blood thinners:coumadin, no longer aspirin Osteoporosis screenin12/08/2020 Tobacco/ Illicit drug use:no Work profile; retired documented in this encounter Plan of Treatment Upcoming Encounters Date Type Department Care Team (Late st Contact Info) Description 01/05/2023 1:30 PM EDT 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 Pharmacy, [address] [place] [address] [place] [address] 01/06/2023 1:30 PM EDT Office Visit Orthopaedics Spine Surgery, [facility] [address] [place] [address] Celso Zayas MD [address] [place] [address] 01/19/2023 12:30 PM EST Office Visit Cardiology [address] [place] [address] Cameron Becerra PA-C [address] [place] [address] 01/25/2023 1:00 PM EST Hospital Encounter OR [facility], Operating Room [facility] [address] [place] [phone] Andrey Still DO [address] [place] [address] 01/25/2023 1:00 PM EST - 01/25/2023 1:20 PM EST Surgery OR [facility], Operating Room [facility] [address] [place] [phone] Cousins, Andrey Caal, [address] [place] [address] INJECTION SPINE LUMBAR OR SACRAL 02/24/2023 2:30 PM EST Office Visit Nephrology [address] [place] [address] Radha Wyman PA-C [address] [place] [address] 07/04/2023 11:30 AM EDT Office Visit Family Medicine [address] [place] [phone] Liliane [place] [place] [address] Scheduled Procedures Name Priority Associated Diagnoses Date/Ti me INJECTION SPINE LUMBAR OR SACRAL Spinal stenosis of lumbar region with neurogenic claudication 01/25/2023 1:00 PM EST Health Maintenance Due Date Last Done Comments Hepatitis B (1 of 3 - Risk 3-dose series) 1994 Zoster Vaccines (2 of 3) 08/02/2010 06/07/2010 Depression Screening 08/03/2021 08/03/2020 COVID-19 Vaccine ( season) 2022 12/27/2021, 07/26/2021, 01/13/2021, Additional history exists Diabetic Foot Exam 02/08/2023 02/08/2022, 0 05/28/2020, 05/17/2019, Additional history exists DIABETES-EYE EXAM 03/15/2023 03/15/2022, , 09/26/2019, Additional history exists HbA1c 05/17/2023 11/16/2022, 11/12, 04/28/2021, Additional history exists Albumin/Creatinine Ratio 11/17/2023 023, 03/29/2022, 01/06/2021, Additional history exists CKD HGB USE SMARTSET 81403 11/17/202311/16, 11/16/2022, 12/03/2021, Additional history exists CKD PHOS USE SMARTSET 10134 11/22/202311/11, 01/06/2021, 05/28/2020, Additional history exists DXA Scan 12/09/2027 12/08/2020, 05/12, 05/30/2008 DTaP,Tdap,and Td Vaccines (2 - Td or Tdap) 11/28/2029 11/29/2019 (Declined), 09/11/2007 Pneumococcal Vaccine: 65+ Years Completed 07/29/2014, 10/07/2002 Influenza Vaccine (FLU shot) Completed 08/2022, 12/27/2021, 01/11/2021, Additional history exists GARDASIL-HPV IMMUNIZATION SERIES Aged Out No longer eligible based on patient's age to complete this topic MENINGOCOCCAL (MENACTRA/MENVEO) Aged Out No longer eligible based on patient's age to complete this topic documented as of this encounter Medical Devices Not on filedocumented as of this encounter Care Teams Head Setter Relationship Specialty Start Date End Date Priyanka Falcon MD [address] [place] [address] [place] [phone] PCP - General Family Medicine 01/04/19 documented as of this encounter
--- OUTSIDE RECORDS SUMMARY | 2023-02-21 00:31 | External Medical Summary | Summary of Care ---
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 Allergies Active Allergy Reactions Severity Noted Date Comments Naproxen Sodium Bleeding High 12/03/2009 Hs of GI bleed Aspirin Bleeding High 12/03/2009 Doxycycline Neuro complications (Please comment) Medium 10/23/2010 Hallucinations Ibuprofen Bleeding High 12/03/2009 Hx of GI bleed Nitrofurantoin Monohydrate Macrocrystals Neuro complications (Please comment) Low 09/16/2009 Headaches Frmbuxys-Exstcmsdp-Bv 01/25/2011 Caused eye problems Neosporin 05/30/2003 rash Sulfa Antibiotics 05/11/2002 nausea & vomiting Tramadol Hcl Unknown 12/03/2009 Triamterene 11/16/2022 ulcers documented as of this encounter (statuses as of 12/27/2022) Medications Medication Sig Dispensed Refills Start Date [...] FOR ITCHING 30 g 2 05/28/2020 Active [employer] VerBurt In Vitro Strip (Glucose Blood)Indications: Type 2 diabetes mellitus with hemoglobin A1c goal of less than 7.5% (HCC) Use to test blood sugar once a day DX e11.9 100 Strip 3 05/14/2021 Active [employer] Verio Flex System w/Device KitIndications:Typ e 2 [...] 180 days 1 Each 1 03/29/2022 Active amLODIPine Besylate 2.5 MG Oral Tablet (Norvasc) Take 1 Tablet by mouth in the morning. 90 Tablet 1 06/25/2022 Active Lisinopril 20 MG Oral Tablet (Prinivil)Indicati [...] hemoglobin A1c goal of less than 7.5% ([facility]) TAKE 1 TABLET BY MOUTH TWICE A DAY WITH BREAKFAST AND SUPPER 180 Tablet 1 09/08/2022 Active OneTouch Delica Plus [id number] ns:Type 2 diabetes mellitus with hemoglobin A1c goal of less than 7.5% ([facility]) Use as directed. 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 90 Tablet 1 12/08/2022 Active OneTouch Ultra In Vitro Strip (Glucose Blood)Indications: Type 2 diabetes mellitus with hemoglobin A1c goal of less than 7.0% ([facility]) USE TO TEST ONCE PER DAY. E11.9 100 Strip 5 12/08/2022 Active glipiZIDE ER 2.5 MG Oral Tablet Extended Release 24 Hour (Glucotrol XL)Indications:Typ e 2 diabetes mellitus with hemoglobin A1c goal of less than 7.5% ([facility]) TAKE 1 TABLET BY MOUTH DAILY 30 MINUTES BEFORE A MEAL 90 Tablet 1 12/26/2022 Active documented as of this encounter (statuses as of 12/27/2022) Active Problems Problem Noted Date Typical atrial flutter 03/29/2022 Seborrheic keratosis 06/01/2021 Chronic kidney disease, stage 3a 021 Overview: Per CKD protocol Type 2 diabetes mellitus wit h stage 3b chronic kidney disease, without long-term current use of insulin 05/28/2020 Diabetes mellitus with stage 3 chronic k idney disease 01/20/2020 Overview: Per CKD protocol Hypertensive kidney disease with stage 3 a chronic kidney disease 01/20/2020 Overview: Per CKD protocol Anemia due to stage 3a chronic kidney di sease 01/20/2020 Overview: Per CKD protocol Pedal edema 08/09/2019 Arthritis of foot 05/17/2019 PAF (paroxysmal atrial fibrillation) Right carotid bruit 12/29/2018 Overview: 25% stenosis and thick plaque seen 12/2018. Recommend repeating carotid duplex in 1 year. Atrial flutter 12/29/2018 Primary osteoarthritis of left knee 03/14 Essential hypertension with goal blood p ressure less than 140/90 02/10/2016 Type 2 diabetes mellitus with hemoglobin A1c goal of less than 7.5% 06/23/2015 Overview: ICD-10 update of inactive term Low HDL (under 40) 12/25/2014 DYSLIPIDEMIA, GOAL LDL BELOW 100 009 Overview: Per Lipid Taxonomy. Anxiety state 04/04/2008 Spinal stenosis of lumbar region without neurogenic claudication 03/27/2008 Paroxysmal VT 02/18/2008 History of breast cancer 02/08/2008 Generalized osteoarthritis 01/25/2008 Paroxysmal atrial tachycardia 01/14/2008 Vitamin B12 deficiency documented as of this encounter (statuses as of 12/27/2022) Resolved Problems Problem Noted Date Resolved Date Atrial flutter, unspecified type 12/27/2021 02/08/2022 Anemia due to stage 3 chronic kidney disease 01/23/2020 Overview: Per CKD protocol Hypertensive kidney disease with chronic kidney disease stage III 07/20/2018 01/23/2020 Overview: Per CKD protocol MEDICATION USE AGREEMENT 01/24/201705/28/ 021 Type 2 diabetes mellitus wit h stage 3 chronic kidney disease, without long-term current use of insulin 01/24/201701/11 Overview: Per CKD protocol Change in stool caliber 01/24/2017 01/25/20 18 Chronic kidney disease (CKD) 10/27/2016 Hypomagnesemia 12/23/2015 10/26/2016 ADVANCE DIRECTIVE INFORMATION 11/05/2015 Overview: No, Advance Directive brochure given to patient at prior appointment. HTN, goal below 140/90 06/18/2014 6 Hypertension goal BP (blood pressure) < 140/80 0 09/10/2012 06/18/2014 Acute appendicitis with peritonitis 10/15/2010 04/19/2011 Acute appendicitis 09/02/2010 10/14/2010 Acute appendicitis 08/26/2010 09/01/2010 Kidney disease, chronic, stage III (GFR 30-59 ml /min) 07/08/2010 06/23/2017 Palpitations 12/03/2009 01/24/2018 Slow transit constipation 09/11/20092017 HTN, goal below 130/80 02/24/2009 3 HTN, goal below 140/90 01/16/2009 9 Overview: Modified per HTN Taxonomy. Type 2 diabetes mellitus wit h hemoglobin A1c goal of less than 7.0% 01/08/2009 06/23/2015 Overview: Per Diabetes Taxonomy. ICD-10 update of inactive term Type 2 diabetes mellitus wit h hemoglobin A1c goal of less than 7.0% 03/27/2008 01/08/2009 Overview: Per Diabetes Taxonomy. ICD-10 update of inactive term HTN, goal to be determined 02/06/200802/07 Other iron deficiency anemia 12/27/2007 Overview: ICD-10 update of inactive term Anemia 09/11/2007 02/08/2008 Hemorrhoids, external without complications 09/200306/27/2007 DM type 2, not at goal 06/06/2003 9 LOC PRIM OSTEOART-PELVIS 10/07/2002 008 BENIGN HYPERTENSION 06/24/2002 01/16/2009 Overview: Modified per HTN Taxonomy. IRON DEFIC ANEMIA NOS 06/24/2002 01/17/2008 Mixed dyslipidemia 06/24/2002 02/17/2009 Overview: Per Lipid Taxonomy. Breast neoplasm 02/08/2008 Overview: ICD-10 update of inactive term Benign hypertensive kidney d isease with chronic kidney disease stage I through stage IV, or unspecified(403.10) 06/12/2007 Panic disorder 01/24/2017 Other cataract 06/27/2007 Kidney disease, chronic, stage III (GFR 30-59 ml /min) 02/25/2009 Acute duodenal ulcer with hemorrhage 02/12/2008 Atrial fibrillation 02/12/2008 documented as of this encounter (statuses as of 12/27/2022) Immunizations Name Administration Dates Next Due COVID-19 [...] 0.6 oz pur e alcohol) occassional wine/beer Food Insecurity Answer Date Recorded Within the past 12 months, y ou worried that your food would run out before you got money to buy more. Never true 08/22/2019 Within the past 12 months, t he food you bought just didn't last and you didn't have money to get more. Never true 08/22/2019 Sex Assigned at Date Recorded Female 08/03/2020 4:05 PM E DT Job Start Date Occupation Industry Not on file Not on file Not on file documented as of this encounter Progress Notes * Freda Curtis, [facility] - 12/27/2022 2:44 PM EDT Images from the original note were not included. Medication Therapy Disease Management - 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 Patient: Cristine Benitez | : 1935 Subjective Patient-Reported Symptoms: Patient Findings Positives: Change in alcohol use, Change in activity, Upcoming invasive procedure, Change in diet/appetite Negatives: Signs/symptoms of thrombosis, Signs/symptoms of bleeding, Change in health, Missed doses, Extra doses, Change in medications, Bruising Objective Current Warfarin Dose As of 12/27/2022 Warfarin maintenance plan: 4 mg (2 mg x 2) every Wed; 2 mg (2 mg x 1) all other days INR Result As of 12/27/2022 INR goal: 2.0-3.0 INR used for dosin.8 (12/27/2022) Assessment & Plan Warfarin Plan As of 12/27/2022 Full warfarin instructions: 12/27: Hold; 12/28: Hold; Otherwise 4 mg every Wed; 2 mg all other days Next INR check: 01/05/2023 Repeat PT/INR in 1 week(s) Weekly dose: not changed Additional Dosing Information: Epidural steroid injection with Dr Still scheduled for 01/25/23. Per previous encounter, x5 day hold no Lovenox needed. INR supra-therapeutic today. Reviewed with patient. [place] the [place], different diet, increase in alcohol use. Additionally, COVID test performed today as recent cold/flu s/sx.All likely contributing to increase. Instructed to HOLD x2 days and will closely f/u next week to ensure return to therapeutic level prior to holding for injection. High INR: Counseled patient on the significance of INR elevation, the increased bleed risk associated with such, sign/symptoms of bleeding, and when to seek medical attention. Description Write tablets only on card Freda Curtis RPh Clinical Pharmacist 12/27/2022, 2:45 PM documented in this encounter Plan of Treatment Upcoming Encounters Date Type Specialty Care Team Description 01/05/2023 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 Pharmacy [address] [place] [address] 01/19/2023 Office Visit Cardiology Cameron Becerra PA-C [address] [place] [address] 01/25/2023 Hospital Encounter Surgery Andrey Still DO [address] [place] [address] 01/25/2023 Surgery Surgery Andrey Still, [address] [place] [address] INJECTION SPINE LUMBAR OR SACRAL 02/03/2023 Office Visit Orthopedic Surgery Celso Zayas MD [address] [place] [address] 02/24/2023 Office Visit [facility]phrology [facility]C [address] [facility] [address] 07/04/2023 Office Visit Family Medicine Liliane Lobato[address] [place] [phone] Scheduled Procedures Name Priority Associated Diagnoses Date/Ti me INJECTION SPINE LUMBAR OR SACRAL Spinal stenosis of lumbar region with neurogenic claudication 01/25/2023 1:00 PM EST Health Maintenance Due Date Last Done Comments Zoster Vaccines (2 of 3) 08/02/2010 06/07/2010 Depression Screening 08/03/2021 08/03/2020 COVID-19 Vaccine ( season) 2022 12/27/2021, 07/26/2021, 01/13/2021, Additional history exists Diabetic Foot Exam 02/08/2023 02/08/2022, 0 05/28/2020, 05/17/2019, Additional history exists DIABETES-EYE EXAM 03/15/2023 03/15/2022, , 09/26/2019, Additional history exists HbA1c 05/17/2023 11/16/2022, 11/12, 04/28/2021, Additional history exists Albumin/Creatinine Ratio 11/17/2023 023, 03/29/2022, 01/06/2021, Additional history exists CKD HGB USE SMARTSET 55957 11/17/202311/16, 11/16/2022, 12/03/2021, Additional history exists CKD PHOS USE SMARTSET 03991 11/22/202311/11, 01/06/2021, 05/28/2020, Additional history exists DXA Scan 12/09/2027 12/08/2020, 05/12, 05/30/2008 DTaP,Tdap,and Td Vaccines (2 - Td or Tdap) 11/28/2029 11/29/2019 (Declined), 09/11/2007 Pneumococcal Vaccine: 65+ Years Completed 07/29/2014, 10/07/2002 Influenza Vaccine (FLU shot) Completed 08/2022, 12/27/2021, 01/11/2021, Additional history exists GARDASIL-HPV IMMUNIZATION SERIES Aged Out No longer eligible based on patient's age to complete this topic Hepatitis B Aged Out No longer eligi ble based on patient's age to complete this topic MENINGOCOCCAL (MENACTRA/MENVEO) Aged Out No longer eligible based on patient's age to complete this topic documented as of this encounter Medical Devices Not on filedocumented as of this encounter Procedures Procedure Name Priority Date/Time Associated Diagnosis Comments INR FINGERSTICK, POINT OF CARE STAT 12/27/2022 2:49 PM EDT PAF (paroxysmal atrial fibrillation) (HCC) 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 documented in this encounter Results * INR FINGERSTICK, POINT OF CARE (12/27/2022 2:49 PM EDT) Fingerstick INR 4.8 INR 3:07 PM EDT LAB[facility]00 Blood 12/27/2022 2:49 PM EDT 12/27/2022 3:07 PM EDT Narrative [facility] [place] 55-00 - 12/27/2022 3:07 PM EDT Therapeutic ranges for non-operative patients: Prophylaxsis/treatment of DVT: (Range:2.0-3.0) Treatment of pulmonary embolism:(Range:2.0-3.0) Prevention of systemic embolism from: -tissue heart valves -acute myocardial infarction -valvular heart disease -atrial fibrillation (Range: 2.0-3.0) Mechanical prosthetic valves: (Range: 2.5-3.5) Freda Curtis [facility] LAB POINT OF CARE TEST DOCKED DEVICE UNSOLICITED RESULTS [facility] [address] [place] [address] [place] [address] documented in this encounter Visit Diagnoses Diagnosis PAF (paroxysmal atrial fibrillation) (HCC)- Primary Atrial fibrillation 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 management encounter Encounter for therapeutic drug monitoring 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
--- OUTSIDE RECORDS SUMMARY | 2023-02-21 00:31 | External Medical Summary ---
Author Name Unknown Address Unknown Organization K01:[facility] [address] [address] Laboratory Report Ordering Provider Test Date Status JARAD MENARDON 01/19/2023 13:07:40 Final Observation Date Value Abnormality Reference (Units ) Status Phosphate 01/19/2023 13:07:40 4.2 2.5-4.8 (m g/dL) Final Performing Location [facility] - [address] [place] [address]
--- OUTSIDE RECORDS SUMMARY | 2023-02-21 00:31 | External Medical Summary | Summary of Care ---
Author Name Unknown Organization [facility] Address [address] [place] [address] Phone [phone] Care Team Providers Care Seat Pack Inspector Name Role Phone Priyanka Falcon MD Primary Care Prov ider Reason for Visit * Reason Comments eRx-Medication Refill Encounter Details Date Type Department Care Team Description 12/29/2022 Refill Cardiology [address] [place] [phone] Viktor Arteaga, PAJose FranciscoC [address] [place] [address] Essential hypertension with goal blood pressure less than 140/90* Allergies Active Allergy Reactions Severity Noted Date Comments Naproxen Sodium Bleeding High 12/03/2009 Hs of GI bleed Aspirin Bleeding High 12/03/2009 Doxycycline Neuro complications (Please comment) Medium 10/23/2010 Hallucinations Ibuprofen Bleeding High 12/03/2009 Hx of GI bleed Nitrofurantoin Monohydrate Macrocrystals Neuro complications (Please comment) Low 09/16/2009 Headaches Zksucfra-Mxxllddlh-Zq 01/25/2011 Caused eye problems Neosporin 05/30/2003 rash Sulfa Antibiotics 05/11/2002 nausea & vomiting Tramadol Hcl Unknown 12/03/2009 Triamterene 11/16/2022 ulcers documented as of this encounter (statuses as of 12/29/2022) Medications Medication Sig Dispensed Refills Start Date End Date Status ASPIRIN 81 MG PO TABS None Entered 0 Active [facility] VITAMIN B12 1000 MCG PO TABSIndications:V [...] ITCHING 30 g 2 05/29/19 21 Active [employer]io In Vitro Strip (Glucose Blood)Indications :Type [...] days 1 Each 1 03/29/19 23 Active Lisinopril 20 MG Oral Tablet (Prinivil)Indicat ions:Essential [...] 1 09/09/19 23 Active OneTouch Delica Plus [id number] ons:Type 2 diabetes mellitus with hemoglobin A1c [...] Oral Tablet (Coumadin)Indicat ions:Atrial flutter, unspecified type ([facility]),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 management encounter,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 90 Tablet 1 12/09/19 23 Active OneTouch Ultra In Vitro Strip [...] MORNING 90 Tablet 3 12/30/19 23 Active amLODIPine Besylate 2.5 MG Oral Tablet (Norvasc) Take 1 Tablet by mouth in the morning. 90 Tablet 1 06/26/19 23 023 Discontinued documented as of this encounter (statuses as of 12/29/2022) Active Problems Problem Noted Date Typical atrial [...] as of this encounter (statuses as of 12/29/2022) Resolved Problems Problem Noted Date Resolved Date Atrial flutter, unspecified type 12/27/2021 02/08/2022 Anemia due to stage 3 chronic kidney disease 01/23/2020 Overview: Per CKD protocol Hypertensive kidney disease with chronic kidney disease stage III 07/20/2018 01/23/2020 Overview: Per CKD protocol MEDICATION USE AGREEMENT 01/24/2017 021 Type 2 diabetes mellitus wit h [...] as of this encounter (statuses as of 12/29/2022) Immunizations Name Administration Dates Next Due COVID-19 [...] encounter Miscellaneous Notes * Telephone Encounter - Viktor Arteaga PA-C - 12/29/2022 12:05 PM EDTSigned Prescriptions: Disp Refills amLODIPine Besylate 2.5 MG Oral Tablet (No*90 Tab*3 Sig: TAKE 1 TABLET BY MOUTH EVERY DAY IN THE MORNING Authorizing Provider: VIKTOR ARTEAGA * Telephone Encounter - LUIS MIGUEL Walsh - 12/29/2022 11:32 AM EDTPending Prescriptions: Disp Refills amLODIPine Besylate 2.5 MG Oral Tablet (No*90 Tab*3 Sig: TAKE 1 TABLET BY MOUTH EVERY DAY IN THE MORNING * Telephone Encounter - LUIS MIGUEL Walsh - 12/29/2022 11:31 AM EDT Did you pend patient's preferred pharmacy and medication before forwarding?yes Pharmacy: [id number] [id number] [facility] Pending Prescriptions: Disp Refills amLODIPine Besylate 2.5 MG Oral Tablet (N*90 Tab*3 Sig: TAKE 1 TABLET BY MOUTH EVERY DAY IN THE MORNING Last Visit: 02/17/2022 (in office), Visit date not found (telemedicine) Next Visit: 01/19/2023 If no future appointments scheduled, and last appointment is greater than a year ago, please schedule patient for a follow-up appointment Last date the medication was ordered: 06-25-2022 Is this request for a controlled substance?No Urine Drug Screen: Results for orders placed or performed in visit on 04/10/18 OPIOIDS/BENZO COMPLIANCE MONITORING W/INTERP Result Value COMPLIANCE INTERP (NOTE) URINE DRUG SCREEN RESULT Amphetamine NEGATIVE Barbiturates NEGATIVE Benzodiazepines REFER TO CONFIRMATION RESULT (A) Cannabinoids NEGATIVE Cocaine Metabolite NEGATIVE METHADONE METABOLITE NEGATIVE Morphine / Codeine NEGATIVE OXYCODONE NEGATIVE COMMENT THE ABOVE SCREENING RESULTS ARE PRESUMPTIVE AND CAN ONLY BE USED FOR MEDICAL PURPOSES. CONFIRMATORY TESTING IS AVAILABLE UPON REQUEST. Cutoff Concentration URINE VALID INTERP NORMAL CREATININE JAYDE 41 NITRITE JAYDE 5 pH JAYDE 4.8 *Note: Due to a large number of results and/or encounters for the requested time period, some results have not been displayed. A complete set of results can be found in Results Review. Patient Phone Numbers Labs: Lab Results Component Value Date/Time CREAT 1.5 (H) 12/08/2022 03:13 PM CREAT 1.1 (H) 01/29/2020 12:24 PM POTASSIUM 4.7 12/08/2022 03:13 PM POTASSIUM 5.1 01/29/2020 12:24 PM TSH 3.08 11/16/2022 03:14 PM TSH 3.100 12/29/2018 12:00 AM TSH 3.67 05/28/2018 02:35 PM LDLCALC 91 11/16/2022 03:14 PM LDLCALC 88 08/22/2019 12:30 PM LDLDIRECT 91 12/03/2021 09:52 AM LDLDIRECT 102 08/22/2019 12:30 PM LDLDIRECT NOT APPLICABLE 08/22/2019 12:30 PM ALT 26 11/21/2022 02:04 PM ALT 25 04/03/2019 10:51 AM HGBA1C 7.9 (H) 11/16/2022 03:14 PM HGBA1C 7.7 (H) 08/22/2019 12:30 PM documented in this encounter Plan of Treatment Upcoming Encounters Date Type Specialty Care Team Description 01/05/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 [place] [address] 01/06/2023 Office Visit Orthopedic Surgery Celso Zayas MD [address] [place] [phone] 01/19/2023 Office Visit Cardiology Viktor Arteaga PA-C [address] [place] [address] 01/25/2023 Hospital Encounter Surgery CecilialucianoanitaAndrey Ten, DO [address] [place] [address] 01/25/2023 Surgery Surgery Andrey Still, DO [address] [place] [address] INJECTION SPINE LUMBAR OR SACRAL 02/24/2023 Office Visit Nephrology Radha Wyman PA-C [address] [facility] [place] [address] 07/04/2023 Office Visit Family Medicine Liliane Lobato, [address] [facility] [place] [address] Scheduled Procedures Name Priority Associated Diagnoses Date/Ti [...] Additional history exists CKD HGB USE SMARTSET 65180 11/17/202311/16, 11/16/2022, 12/03/2021, Additional history exists CKD PHOS USE SMARTSET 87171 11/22/202311/11, 01/06/2021, 05/28/2020, Additional history exists DXA [...] hypertension with goal blood pressure less than 140/90- Primary Spinal stenosis of lumbar region with neurogenic claudication Spinal stenosis, lumbar region, with neurogenic claudication documented in this encounter Care Teams Seat Pack Inspector Relationship Specialty Start Date End Date Priyanka Falcon MD [address] [place] [address] [place] [phone] PCP - General Family Medicine 01/04/19 documented as of this encounter
--- OUTSIDE RECORDS SUMMARY | 2023-02-21 00:31 | External Medical Summary | Summary of Care ---
Author Name Unknown Organization [facility] Address [address] [place] [address] Phone [phone] Care Team Providers Care Dianetic Counselor Name Role Phone Priyanka Falcon MD Primary Care Prov ider Reason for Visit * Reason Onset Date Comments Physical Therapy 01/06/2023 Encounter Details Date Type Department Care Team (Late st Contact Info) Description 01/06/2023 [facility] [address] [facility] [place] [address] Celso Zayas MD [address] [facility] [address] Physical Therapy Allergies Active Allergy Reactions Criticality Noted Date Comments Naproxen Sodium Bleeding High 12/03/2009 Hs of GI bleed Aspirin Bleeding High 12/03/2009 Doxycycline Neuro complications (Please comment) Medium 10/23/2010 Hallucinations Ibuprofen Bleeding High 12/03/2009 Hx of GI bleed Nitrofurantoin Monohydrate Macrocrystals Neuro complications (Please comment) Low 09/16/2009 Headaches Duwsvcnj-Uxznvuzzm-Hd 01/25/2011 Caused eye problems Neosporin 05/30/2003 rash [...] FOR ITCHING 30 g 2 05/28/2020 Active InThrMa VerPocketMobile In Vitro Strip (Glucose Blood)Indications: Type 2 diabetes mellitus with hemoglobin A1c goal of less than 7.5% (HCC) Use to test blood sugar once a day DX e11.9 100 Strip 3 05/14/2021 Active InThrMa Verio Flex System w/Device KitIndications:Typ e 2 [...] hemoglobin A1c goal of less than 7.5% ([facility]) TAKE 1 TABLET BY MOUTH TWICE A DAY WITH BREAKFAST AND SUPPER 180 Tablet 1 09/08/2022 Active OneTouch Delica Plus [id number] ns:Type 2 diabetes mellitus with hemoglobin A1c goal of less than 7.5% ([facility]) Use as directed. 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 E11.9 100 Strip 5 12/08/2022 Active glipiZIDE ER 2.5 MG Oral Tablet Extended Release 24 Hour (Glucotrol XL)Indications:Typ e 2 diabetes mellitus with hemoglobin A1c goal of less than 7.5% ([facility]) TAKE 1 TABLET BY MOUTH DAILY 30 [...] encounter Miscellaneous Notes * Telephone Encounter - Carolina Daley OSA - 01/06/2023 1:50 PM EDT Faxed PT referral to [facility], gave physical copy to pt. documented in this encounter Plan of Treatment Upcoming Encounters Date Type Department Care Team (Latest Contact Info) Description 01/19/2023 12:30 PM EST Office Visit Cardiology [address] [place] [address] Cameron Becerra PA-C [address] [place] [address] 01/25/2023 11:50 AM EST 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 Pharmacy, [facility] [address] [place] [address] [facility] [address] [place] [address] 01/25/2023 1:00 PM EST Hospital Encounter OR [facility], Operating Room [facility] [address] [place] [phone] Andrey Still, DO [address] [place] [address] 01/25/2023 1:00 PM EST - 01/25/2023 1:20 PM EST Surgery OR [facility], Operating Room [facility] [address] [place] [phone] Andrey Still, DO [address] [place] [address] INJECTION SPINE LUMBAR OR SACRAL 02/08/2023 1:00 PM EST 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 Pharmacy, [address] [place] [address] [place] [address] 02/24/2023 2:30 PM EST Office Visit Nephrology [address] [place] [address] Radha Wyman PA-C [address] [place] [address] 07/04/2023 11:30 AM EDT Office Visit Family Medicine [address] [place] [phone] [place] [address] Scheduled Procedures Name Priority Associated Diagnoses Date/Ti [...] Additional history exists CKD HGB USE SMARTSET 03763 11/17/202311/16, 11/16/2022, 12/03/2021, Additional history exists CKD PHOS USE SMARTSET 03810 11/22/202311/11, 01/06/2021, 05/28/2020, Additional history exists DXA [...] filedocumented as of this encounter Care Teams Dianetic Counselor Relationship Specialty Start Date End Date Priyanka Falcon MD [address] [place] [address] [place] [address] PCP - General Family Medicine 01/04/19 documented as of this encounter
--- OUTSIDE RECORDS SUMMARY | 2023-02-21 00:32 | External Medical Summary | Summary of Care ---
Author Name Unknown Organization [facility] Address [address] [place] [address] Phone [phone] Care Team Providers Care Telephonic Nurse Name Role Phone Priyanka Falcon MD Primary Care Prov ider Encounter Details Date Type Department Care Team Description 12/27/2022 Nurse Only Ancillary [address] [place] [phone] [employer] Nurse [address] [place] [address] Allergies Active Allergy Reactions Severity Noted Date Comments Naproxen Sodium Bleeding High 12/03/2009 Hs of GI bleed Aspirin Bleeding High 12/03/2009 Doxycycline Neuro complications (Please comment) Medium 10/23/2010 Hallucinations Ibuprofen Bleeding High 12/03/2009 Hx of GI bleed Nitrofurantoin Monohydrate Macrocrystals Neuro complications (Please comment) Low 09/16/2009 Headaches Cykurtoc-Qrawtzxel-Zx 01/25/2011 Caused eye problems Neosporin 05/30/2003 rash [...] DX e11.9 100 Strip 3 05/14/2021 Active OrationTouch Verio Flex System w/Device KitIndications:Typ e 2 [...] hemoglobin A1c goal of less than 7.5% ([facility]) TAKE 1 TABLET BY MOUTH TWICE A DAY WITH BREAKFAST AND SUPPER 180 Tablet 1 09/08/2022 Active OneTouch Delica Plus [id number] ns:Type 2 diabetes mellitus with hemoglobin A1c goal of less than 7.5% ([facility]) Use as directed. Use to test blood [...] Oral Tablet (Coumadin)Indicati ons:Atrial flutter, unspecified type ([facility]),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,half-way current use of anticoagulant therapy,PAF (paroxysmal atrial fibrillation) ([facility]) TAKE 1-2 TABLETS BY MOUTH DAILY DIRECTED BY ANTICOAGULATION CLINIC 100 Tablet 3 12/05/2022 Active Furosemide 40 MG Oral Tablet (Lasix) Take 1 Tablet by mouth in the morning. 90 Tablet 1 12/08/2022 Active OneTouch Ultra In Vitro Strip (Glucose Blood)Indications: Type 2 diabetes mellitus with hemoglobin A1c goal of less than 7.0% ([facility]) USE TO TEST ONCE PER DAY. E11.9 100 Strip 5 12/08/2022 Active glipiZIDE ER 2.5 MG Oral Tablet Extended Release 24 Hour (Glucotrol XL)Indications:Typ e 2 diabetes mellitus with hemoglobin A1c goal of less than 7.5% ([facility]) TAKE 1 TABLET BY MOUTH DAILY 30 [...] as of this encounter Progress Notes * Alyson Tierney LPN - 12/27/2022 2:39 PM EDT Pt c/o sore throat that started a few days ago (less than 5) when she was visiting her daughter in [place], it is improving some but pt is concerned that she might have covid. documented in this encounter Plan of Treatment Upcoming Encounters Date Type Specialty Care Team Description 01/05/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 [place] [address] 01/19/2023 Office Visit Cardiology Cameron Becerra PA-C [address] [place] [address] 01/25/2023 Hospital Encounter Surgery NaeanitaAndrey Ten, [address] [place] [address] 01/25/2023 Surgery Surgery Andrey Still, [address] [place] [address] INJECTION SPINE LUMBAR OR SACRAL 02/03/2023 Office Visit Orthopedic Surgery Celso Zayas MD [address] [place] [address] 02/24/2023 Office Visit Nephrology Radha [facility]yman [facility]C [address] [facility] [address] 07/04/2023 Office Visit Family Medicine Liliane Lobato[address] [place] [address] Pending Results Name Type Priority Associated Diagnoses Date /Time SARS-COV-2 (COVID-19), NAAT Lab Routine Sore throat 12/27/2022 2:41 PM EDT Scheduled Procedures Name Priority Associated Diagnoses Date/Ti [...] Additional history exists CKD HGB USE SMARTSET 66756 11/17/202311/16, 11/16/2022, 12/03/2021, Additional history exists CKD PHOS USE SMARTSET 34185 11/22/202311/11, 01/06/2021, 05/28/2020, Additional history exists DXA [...] as of this encounter Visit Diagnoses Diagnosis Sore throat- Primary Acute pharyngitis Spinal stenosis of lumbar region with neurogenic claudication Spinal stenosis, lumbar region, with neurogenic claudication documented in this encounter Care Teams Telephonic Nurse Relationship Specialty Start Date End Date Priyanka Falcon MD [address] [place] [address] [place] [address] PCP - General Family Medicine 01/04/19 documented as of this encounter
--- OUTSIDE RECORDS SUMMARY | 2023-02-21 00:32 | External Medical Summary ---
Author Name Unknown Address Unknown Organization : Laboratory Report Ordering Provider Test Date Status ZURDO LUNA 12/27/2022 14:49:24 Final Therapeutic ranges for non-o perative patients:
Prophylaxsis/treatment of DVT: (Range:2.0-3.0)
Treatment of pulmonary embolism:(Range:2.0-3.0)
Prevention of systemic embolism from:
-tissue heart valves
-acute myocardial infarction
-valvular heart disease
-atrial fibrillation
(Range: 2.0-3.0)
Mechanical prosthetic valves: (Range: 2.5-3.5) Observation Date Value Abnormality Reference (Units ) Status INR in Capillary blood by Coagulation assay 12/27/2022 14:49:24 4.8 (INR) Final Performing Location
--- OUTSIDE RECORDS SUMMARY | 2023-02-21 00:32 | External Medical Summary ---
Author Name Unknown Address Unknown Organization K01:[facility] - [address] [facility] [address] Laboratory Report Ordering Provider Test Date Status JARAD MENARD 12/27/2022 14:41:32 Final For PreSurgery, Procedure, O B Admit, or Surveillance testing - Nasal Turbinate source preferred.

For Symptomatic testing - Nasopharyngeal source preferred.
null Observation Date Value Abnormality Reference (Units ) Status SARS Coronavirus 2 12/27/2022 14:41:32 Negative N egative Final 2018 Novel Coronavirus not d etected.

This automated test was developed and its performance characteristics determined by [facility] [employer]. It has not been cleared or approved by the U.S. Food and Drug Administration (FDA). FDA does not require this test to go thru premarket FDA review. This test is used for clinical purposes. It should not be regarded as investigational or for research. This laboratory is certified under the Clinical Laboratory Improvement Amendments (CLIA) as qualified to perform high complexity clinical laboratory testing.

This test is a nucleic acid amplification test (NAAT), a reverse transcriptase polymerase chain reaction (RT-PCR) test, or a Centers for Disease Control-acceptable equivalent. The test is performed in a high complexity Clinical Laboratory Improvement Amendments-(CLIA) certified laboratory. The test is acceptable for SARS-CoV-2 diagnosis, surveillance, and travel within the [place] and to most countries. Please check with local testing authorities about requirements before travel. Performing Location [facility] - [address] [facility] [address]
--- OUTSIDE RECORDS SUMMARY | 2023-02-21 00:32 | External Medical Summary | Summary of Care ---
Author Name Unknown Organization [facility] Address [address] [place] [address] Phone [phone] Care Team Providers Care Director Of Income Tax Name Role Phone Priyanka Falcon MD Primary Care Prov ider Reason for Visit * Reason Comments Re-Check Encounter Details Date Type Department Care Team Description 12/08/2022 Office Visit Family Medicine [address] [phone] Jessica Baugh PA-C [address] [place] [address] [place] [address] Type 2 diabetes mellitus with hemoglobin A1c goal of less than 7.5% ([facility])*; Type 2 diabetes mellitus with hemoglobin A1c goal of less than 7.0% ([facility]); Diabetes mellitus with stage 3 chronic kidney disease ([facility]); Essential hypertension with goal blood pressure less than 140/90 Allergies Active Allergy Reactions Severity Noted Date Comments Naproxen Sodium Bleeding High 12/03/2009 Hs of GI bleed Aspirin Bleeding High 12/03/2009 Doxycycline Neuro complications (Please comment) Medium 10/23/2010 Hallucinations Ibuprofen Bleeding High 12/03/2009 Hx of GI bleed Nitrofurantoin Monohydrate Macrocrystals Neuro complications (Please comment) Low 09/16/2009 Headaches Lfkdqstx-Yzcicbpon-Lx 01/25/2011 Caused eye problems Neosporin 05/30/2003 rash Sulfa Antibiotics 05/11/2002 nausea & vomiting Tramadol Hcl Unknown 12/03/2009 Triamterene 11/16/2022 ulcers documented as of this encounter (statuses as of 12/08/2022) Medications Medication Sig Dispensed Refills Start Date [...] ITCHING 30 g 2 05/29/19 21 Active [employer]airyuch Verio In Vitro Strip (Glucose Blood)Indications :Type 2 diabetes mellitus with hemoglobin A1c goal of less than 7.5% (HCC) Use to test blood sugar once a day DX e11.9 100 Strip 3 05/15/19 22 Active MippinTouch Verio Flex System w/Device KitIndications:Ty pe 2 [...] days 1 Each 1 03/29/19 23 Active glipiZIDE ER 2.5 MG Oral Tablet Extended Release 24 Hour (Glucotrol XL)Indications:Ty pe 2 diabetes mellitus with hemoglobin A1c goal of less than 7.5% (HCC) TAKE 1 TABLET BY MOUTH DAILY 30 MINUTES BEFORE A MEAL 90 Tablet 1 06/25/19 23 Active amLODIPine Besylate 2.5 MG Oral Tablet (Norvasc) Take 1 Tablet by mouth in the morning. 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,PAF (paroxysmal atrial fibrillation) ([facility]) TAKE 1-2 TABLETS BY MOUTH DAILY [...] E11.9 100 Strip 5 12/09/19 23 Active ONETOUCH ULTRASOFT LANCETS MISCIndications:D M type 2, goal A1c below 7 TESTING TWICE A DAY DX:250.00 [address] 02/23/20 13 023 Discontinued(Mo dication List Clean Up) OneTouch Ultra In Vitro Strip (Glucose Blood)Indications :Type 2 diabetes mellitus with hemoglobin A1c goal of less than 7.0% (HCC) USE TO TEST ONCE PER DAY 100 Strip 3 10/10/19 22 023 Discontinued(Re fill) Gabapentin 100 MG Oral Capsule (Neurontin) Take 1 Capsule by mouth at bedtime. 30 Capsule 1 11/17/19 23 023 Discontinued Furosemide 40 MG Oral Tablet (Lasix)Indication s:Congestive heart failure, unspecified HF chronicity, unspecified heart failure type (HCC) Take 1 Tablet by mouth in the morning. 30 Tablet 5 11/18/19 23 023 Discontinued(Re fill) documented as of this encounter (statuses as of 12/08/2022) Active Problems Problem Noted Date Typical atrial [...] as of this encounter (statuses as of 12/08/2022) Resolved Problems Problem Noted Date Resolved Date [...] as of this encounter (statuses as of 12/08/2022) Immunizations Name Administration Dates Next Due COVID-19 mRNA, LNP-s, No Pre serve, 2-Dose Series (Moderna) 01/13/2021,05/16/2020,04/17/2020 COVID-19, mRNA, LNP-s, PF, B ooster, 100mcg/0.5mg (Moderna) 07/26/2021 Covid-19, Mrna, Lnp-s, Pf, B ivalent, 50 Mcg, IM, 12 yrs and above (Moderna) 12/27/2021 H1N1 2009 Influenza, IM 03/20/2009 Pneumococcal Conjugate Vacc, 13 Valent (Prevnar) 07/29/2014 Season Influenza, Quad, PF, Adjuvanted, 65+ Yrs, IM (FLUAD) 12/12/2019 Seasonal Influenza, PF, 6 mo ns & Above, IM , (Flulaval) 12/26/2017,01/11/2017 Seasonal Influenza, Quadriva lent Hd (Fluzone Hd) [...] Sign Reading Time Taken Comments Blood Pressure 128/62 12/08/2022 2:23 PM EDT Pulse 73 12/08/2022 2:23 PM EDT Temperature 36.6 C (97.8 F) 12/08/2022 2:23 PM ED T Respiratory Rate - - Oxygen Saturation 97% 12/08/2022 2:23 PM EDT Inhaled Oxygen Concentration - - Weight 70.8 kg (156 lb) 12/08/2022 2:23 PM EDT Height 157.5 cm (5' 2.01") 12/08/2022 2:23 PM ED T Body Mass Index 28.52 12/08/2022 2:23 PM EDT documented in this encounter Progress Notes * Jessica Baugh PA-C - 12/08/2022 2:29 PM EDT Images from the original note were not included. History of Present Illness Cristine Benitez is a 87 year old female that presents for Re-Check Nursing Notes: Alesha Purvis, KULWINDER 12/08/22 1423 Sign at exiting of workspace 3-[address] Still Going to discuss with Cardio about injection HPI: Cristine Benitez is a 87 year old female presenting to the office today for recheck. In the interim since her last visit, Cristine saw Nephrology and was discussed with Cardiology. She also saw Interventional pain. Her Lasix was increased to 40 mg daily, and this has been helpful. She isplanned to have an epidural steroid injection as well for her worsening pain. Cardiology agreed that she is OK to hold Coumadin for this injection for 3-5 days without lovenox bridge. She wasn't aware of this yet, but she will get the appt date at check out. Her BP cuff from home was also validated on 11/30. BP much improved today. Her leg edema has been much better other than today has been worse. She had tried skipping a day though and was thinking of taking it every other day. She understands now that she needs to take this daily. She did also have a repeat Echo. Reviewed record/notes including: Echo, Nephrology, Interventional pain Current Outpatient Medications Medication Instructions amLODIPine (NORVASC) 2.5 mg, Oral, Daily(AM) ASPIRIN 81 MG PO TABS None Entered Atorvastatin Calcium 80 MG Oral Tablet (Lipitor) TAKE 1 TABLET BY MOUTH EVERY DAY IN THE MORNING Cholecalciferol (VITAMIN D3) 1000 UNITS CAPS Oral [facility] VITAMIN B12 1000 MCG PO TABS 1 TABLET DAILY Docusate Sodium 100 MG Oral Capsule (Colace) TAKE 1 CAP BY MOUTH EVERY MORNING. CAN TAKE 1 CAP IN THE EVENING NEEDED Furosemide (LASIX) 40 mg, Oral, Daily(AM) glipiZIDE ER 2.5 MG Oral Tablet Extended Release 24 Hour (Glucotrol XL) TAKE 1 TABLET BY MOUTH DAILY 30 MINUTES BEFORE A MEAL HYDROcodone-Acetaminophen 5-325 MG Oral Tablet 1 Tablet, Oral, BID PRN Lisinopril 20 MG Oral Tablet (Prinivil) TAKE 1 TABLET BY MOUTH EVERY DAY LORazepam 0.5 MG Oral Tablet (Ativan) TAKE 1 TABLET BY MOUTH TWICE A DAY NEEDED FOR ANXIETY metFORMIN HCl 500 MG Oral Tablet (Glucophage) TAKE 1 TABLET BY MOUTH TWICE A DAY WITH BREAKFAST ANDSUPPER Metoprolol Succinate ER 100 MG Oral Tablet Extended Release 24 Hour (toPROL XL) TAKE 1 TABLET BY MOUTH IN THE MORNING AND 1/2 TABLET DAILY AT BEDTIME OneTouch Delica Plus [id number] Does Not Apply, Use to test blood sugar once a day DX e11.9 OneTouch Ultra In Vitro Strip (Glucose Blood) USE TO TEST ONCE PER DAY ONETOUCH ULTRASOFT LANCETS MISC TESTING TWICE A DAY DX:250.00 OneTouch Verio Flex System w/Device Kit Does Not Apply, Use to test blood sugar Dx e11.9 OneTouch Verio In Vitro Strip (Glucose Blood) Use to test blood sugar once a day DX e11.9 polyethylene glycol 3350 (MIRALAX) 255 gram powder DISSOLVE 1 HEAPING TABLESPOON IN 8 OUNCES OF WATER OR JUICE DAILY NEEDED FOR CONSTIPATION Triamcinolone Acetonide 0.1 % External Cream (Aristocort) APPLY TO THE AFFECTED AREA 2 TIMES A DAY NEEDED FOR ITCHING Warfarin Sodium 2 MG Oral Tablet (Coumadin) TAKE 1-2 TABLETS BY MOUTH DAILY DIRECTED BY ANTICOAGULATION CLINIC Zoster Vac Recomb Adjuvanted 50 MCG/0.5ML Intramuscular Suspension Reconstituted (Shingrix) Inject 0.5 mL into a large muscle now and repeat dose in 60 to 180 days Med list reviewed by me today. Physical Exam Vitals: 12/08/22 1423 Temp: 36.6 C (97.8 F) Pulse: 73 SpO2: 97% BP: 128/62 BMI: 28.53 Physical exam: General: Well-Developed. Well appearing. No acute distress. HENT: Normocephalic. Atraumatic. Hearing normal. Cardiovascular: RRR. Pulmonary: No respiratory distress. No accessory muscle use. Musculoskeletal: 1+ pitting edema of the B/L ankles. Neurologic: Alert. Oriented x 3. Appears stated age. CN 2-12 grossly intact. Skin: Warm and dry. No apparent rashes or ecchymoses. No jaundice or pallor noted. Psych: Mood and affect normal. I have reviewed the following results: BNP, CBC, and BMP Assessment and Plan Type 2 diabetes mellitus with hemoglobin A1c goal of less than 7.5% ([facility]) Stable. Refilled supplies. Type 2 diabetes mellitus with hemoglobin A1c goal of less than 7.0% ([facility]) - OneTouch Ultra In Vitro Strip (Glucose Blood); USE TO TEST ONCE PER DAY. E11.9 Diabetes mellitus with stage 3 chronic kidney disease (HCC) Recheck BMP today. Essential hypertension with goal blood pressure less than 140/90 Patient has had improvement of her edema and BP on higher dose Lasix. Reinforced the need to take this daily. Her Echo showed no systolic or diastolic dysfunction. - Furosemide 40 MG Oral Tablet (Lasix); Take 1 Tablet by mouth in the morning. Keep appts with Interventional Pain, Cardiology. Wrap-Up Check-out note: F/U with Dr. Lobato to establish care 4-6 months per patient request. Time: I spent a total of 40-54 minutes (exact time 42 mins) on the date of service in preparation, delivery, and documentation of the care provided to Cristine Benitez excluding any time spent in the performance of separately billed services. documented in this encounter Nursing Notes * Alesha Purvis LPN - 12/08/2022 2:22 PM EDT 3-[address] Still Going to discuss with Cardio about injection documented in this encounter Plan of Treatment Upcoming Encounters Date Type Specialty Care Team Description 12/27/2022 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 Pharmacy [address] [place] [address] 01/19/2023 Office Visit Cardiology Cameron Becerra PA-C [address] [place] [address] 01/25/2023 Hospital Encounter Surgery Andrey Still DO [address] [place] [address] 01/25/2023 Surgery Surgery Andrey Still DO [address] [place] [address] INJECTION SPINE LUMBAR OR SACRAL 02/03/2023 Office Visit Orthopedic Surgery Celso Zayas MD [address] [place] [address] 02/24/2023 Office Visit Nephrology [facility] [address] [facility] [address] [facility]/04[facility]23 Office Visit Family Medicine Liliane Lobato[address] [place] [address] Scheduled Procedures Name Priority Associated Diagnoses Date/Ti [...] Additional history exists CKD HGB USE SMARTSET 59261 11/17/202311/16, 11/16/2022, 12/03/2021, Additional history exists CKD PHOS USE SMARTSET 69070 11/22/202311/11, 01/06/2021, 05/28/2020, Additional history exists DXA Scan 12/09/2027 12/08/2020, 05/12, 05/30/2008 DTaP,Tdap,and Td Vaccines (2 - Td or Tdap) 11/28/2029 11/29/2019 (Declined), 09/11/2007 Pneumococcal Vaccine: 65+ Years Completed 07/29/2014, 10/07/2002 COVID-19 Vaccine Completed 12/27/2021, , 01/13/2021, Additional history exists Influenza Vaccine (FLU shot) Completed 08/2022, 12/27/2021, [...] as of this encounter Visit Diagnoses Diagnosis Type 2 diabetes mellitus with hemoglobin A1c goal of less than 7.5% (HCC)- Primary Type 2 diabetes mellitus with hemoglobin A1c goal of less than 7.0% (HCC) Diabetes mellitus with stage 3 chronic kidney disease (HCC) Type II or unspecified type diabetes mellitus with renal manifestations, not stated as uncontrolled Essential hypertension with goal blood pressure less than 140/90 Spinal stenosis of lumbar region with neurogenic claudication Spinal stenosis, lumbar region, with neurogenic claudication documented in this encounter Care Teams Director Of Income Tax Relationship Specialty Start Date End Date Priyanka Falcon MD [address] [place] [address] [place] [phone] PCP - General Family Medicine 01/04/19 documented as of this encounter
--- OUTSIDE RECORDS SUMMARY | 2023-02-21 00:32 | External Medical Summary | Summary of Care ---
Author Name Unknown Organization [facility] Address [address] [place] [address] Phone [phone] Care Team Providers Care Wine Steward Name Role Phone Priyanka Falcon MD Primary Care Prov ider Reason for Visit * Reason Onset Date Comments Test Results 12/12/2022 Encounter Details Date Type Department Care Team Description 12/12/2022 Telephone Cardiology, [facility] [address] [place] [address] Cameron Becerra PA-C [address] [place] [address] Test Results Allergies Active Allergy Reactions Severity Noted Date Comments Naproxen Sodium Bleeding High 12/03/2009 Hs of GI bleed Aspirin Bleeding High 12/03/2009 Doxycycline Neuro complications (Please comment) Medium 10/23/2010 Hallucinations Ibuprofen Bleeding High 12/03/2009 Hx of GI bleed Nitrofurantoin Monohydrate Macrocrystals Neuro complications (Please comment) Low 09/16/2009 Headaches Ujjhihjy-Rouppgglf-Qh 01/25/2011 Caused eye problems Neosporin 05/30/2003 rash Sulfa Antibiotics 05/11/2002 nausea & vomiting Tramadol Hcl Unknown 12/03/2009 Triamterene 11/16/2022 ulcers documented as of this encounter (statuses as of 12/12/2022) Medications Medication Sig Dispensed Refills Start Date [...] FOR ITCHING 30 g 2 05/28/2020 Active [employer] Verio In Vitro Strip (Glucose Blood)Indications: Type 2 diabetes mellitus with hemoglobin A1c goal of less than 7.5% (HCC) Use to test blood sugar once a day DX e11.9 100 Strip 3 05/14/2021 Active ehealthtrackerTouch Verio Flex System w/Device KitIndications:Typ e 2 [...] 180 days 1 Each 1 03/29/2022 Active glipiZIDE ER 2.5 MG Oral Tablet Extended Release 24 Hour (Glucotrol XL)Indications:Typ e 2 diabetes mellitus with hemoglobin A1c goal of less than 7.5% (HCC) TAKE 1 TABLET BY MOUTH DAILY 30 MINUTES BEFORE A MEAL 90 Tablet 1 06/24/2022 Active amLODIPine Besylate 2.5 MG Oral Tablet [...] Tablet 1 09/08/2022 Active OneTouch Delica Plus [id number] ns:Type 2 diabetes mellitus with hemoglobin A1c goal of less than 7.5% ([facility]) Use as directed. 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 E11.9 100 Strip 5 12/08/2022 Active documented as of this encounter (statuses as of 12/12/2022) Active Problems Problem Noted Date Typical atrial [...] as of this encounter (statuses as of 12/12/2022) Resolved Problems Problem Noted Date Resolved Date [...] as of this encounter (statuses as of 12/12/2022) Immunizations Name Administration Dates Next Due COVID-19 [...] Telephone Encounter - Yordan Galo LPN - 12/12/2022 10:03 AM EDT Called patient and no answer or voicemail set up to leave a message. Sent patient a letter to make aware. ----- Message from Cameron Becerra PA-C sent at 12/09/2022 6:55 AM EDT ----- Relatively stable, obligatory Continue furosemide as prescribed Increase daily water intake a little, perhaps an additional 6 oz per day documented in this encounter Plan of Treatment Upcoming Encounters Date Type Specialty Care Team Description 12/27/2022 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 Pharmacy [place] [address] [place] [address] 01/19/2023 Office Visit Cardiology Cameron Becerra PA-C [address] [place] [address] 01/25/2023 Hospital Encounter Surgery Andrey Still DO [address] [place] [address] 01/25/2023 Surgery Surgery Andrey Still DO [address] [place] [address] INJECTION SPINE LUMBAR OR SACRAL 02/03/2023 Office Visit Orthopedic Surgery Celso Zayas MD [address] [place] [address] 02/24/2023 Office Visit Nephrology Radha Wyman PA-C [address] [place] [address] 07/04/2023 Office Visit Family Medicine Liliane Lob[address] [place] [address] Scheduled Procedures Name Priority Associated Diagnoses Date/Ti [...] Additional history exists CKD HGB USE SMARTSET 50715 11/17/202311/16, 11/16/2022, 12/03/2021, Additional history exists CKD PHOS USE SMARTSET 70732 11/22/202311/11, 01/06/2021, 05/28/2020, Additional history exists DXA [...] filedocumented as of this encounter Care Teams Wine Steward Relationship Specialty Start Date End Date Priyanka Falcon MD [address] [place] [address] [place] [address] PCP - General Family Medicine 01/04/19 documented as of this encounter
--- OUTSIDE RECORDS SUMMARY | 2023-02-21 00:32 | External Medical Summary | Summary of Care ---
Author Name Unknown Organization [facility] Address [address] [place] [address] Phone [phone] Care Team Providers Care Stem Assembler Name Role Phone Sailaja Garland MD Primary Care Prov ider Reason for Visit * Reason Comments eRx-Medication Refill Encounter Details Date Type Department Care Team Description 12/24/2022 Refill Family Medicine [address] [phone] Sailaja Garland MD [address] [place], [place] [address] [address] Type 2 diabetes mellitus with hemoglobin A1c goal of less than 7.5% ([facility]) Allergies Active Allergy Reactions Severity Noted Date Comments Naproxen Sodium Bleeding High 12/03/2009 Hs of GI bleed Aspirin Bleeding High 12/03/2009 Doxycycline Neuro complications (Please comment) Medium 10/23/2010 Hallucinations Ibuprofen Bleeding High 12/03/2009 Hx of GI bleed Nitrofurantoin Monohydrate Macrocrystals Neuro complications (Please comment) Low 09/16/2009 Headaches Jwnkfnob-Ioqdtvttj-Ol 01/25/2011 Caused eye problems Neosporin 05/30/2003 rash Sulfa Antibiotics 05/11/2002 nausea & vomiting Tramadol Hcl Unknown 12/03/2009 Triamterene 11/16/2022 ulcers documented as of this encounter (statuses as of 12/26/2022) Medications Medication Sig Dispensed Refills Start Date [...] ITCHING 30 g 2 05/29/19 21 Active [employer] Verio In Vitro Strip (Glucose Blood)Indications :Type 2 diabetes mellitus with hemoglobin A1c goal of less than 7.5% (HCC) Use to test blood sugar once a day DX e11.9 100 Strip 3 05/15/19 22 Active [employer] ShopTouch Verio Flex System w/Device KitIndications:Ty pe 2 [...] days 1 Each 1 03/29/19 23 Active amLODIPine Besylate 2.5 MG Oral [...] 1 09/09/19 23 Active OneTouch Delica Plus [id number] ons:Type 2 diabetes mellitus with hemoglobin A1c goal of less than 7.5% ([facility]) Use as directed. 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 90 Tablet 1 12/09/19 23 Active OneTouch Ultra In Vitro Strip (Glucose Blood)Indications :Type 2 diabetes mellitus with hemoglobin A1c goal of less than 7.0% ([facility]) USE TO TEST ONCE PER DAY. E11.9 100 Strip 5 12/09/19 23 Active glipiZIDE ER 2.5 MG Oral Tablet Extended Release 24 Hour (Glucotrol XL)Indications:Ty pe 2 diabetes mellitus with hemoglobin A1c goal of less than 7.5% ([facility]) TAKE 1 TABLET BY MOUTH DAILY 30 MINUTES BEFORE A MEAL 90 Tablet 1 12/27/19 23 Active glipiZIDE ER 2.5 MG Oral Tablet Extended Release 24 Hour (Glucotrol XL)Indications:Ty pe 2 diabetes mellitus with hemoglobin A1c goal of less than 7.5% (HCC) TAKE 1 TABLET BY MOUTH DAILY 30 MINUTES BEFORE A MEAL 90 Tablet 1 06/25/19 23 023 Discontinued documented as of this encounter (statuses as of 12/26/2022) Active Problems Problem Noted Date Typical atrial [...] as of this encounter (statuses as of 12/26/2022) Resolved Problems Problem Noted Date Resolved Date [...] as of this encounter (statuses as of 12/26/2022) Immunizations Name Administration Dates Next Due COVID-19 [...] encounter Miscellaneous Notes * Telephone Encounter - Artem Casas [facility] - 12/26/2022 10:27 AM EDTSigned Prescriptions: Disp Refills glipiZIDE ER 2.5 MG Oral Tablet Extended R*90 Tab*1 Sig: TAKE 1 TABLET BY MOUTH DAILY 30 MINUTES BEFORE A MEALAuthorizing Provider: SAILAJA GARLAND User: ARTEM CASAS documented in this encounter Plan of Treatment Upcoming Encounters Date Type Specialty Care Team Description 12/27/2022 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 Pharmacy [address] [place] [address] 01/19/2023 Office Visit Cardiology Cameron Becerra PA-C [address] [place] [address] 01/25/2023 Hospital Encounter Surgery Andrey Still DO [address] [place] [address] 01/25/2023 Surgery Surgery Andrey Still DO [address] [place] [address] INJECTION SPINE LUMBAR OR SACRAL 02/03/2023 Office Visit Orthopedic Surgery Celso Zayas MD [address] [place] [address] 02/24/2023 Office Visit Nephrology Radha Wyman PA-C [facility] [place] [address] 07/04/2023 Office Visit Family Medicine Liliane Lobato, [address] [place] [address] Scheduled Procedures Name Priority Associated Diagnoses Date/Ti [...] Additional history exists CKD HGB USE SMARTSET 87655 11/17/202311/16, 11/16/2022, 12/03/2021, Additional history exists CKD PHOS USE SMARTSET 33308 11/22/202311/11, 01/06/2021, 05/28/2020, Additional history exists DXA [...] A1c goal of less than 7.5% (HCC) Spinal stenosis of lumbar region with neurogenic claudication Spinal stenosis, lumbar region, with neurogenic claudication documented in this encounter Care Teams Stem Assembler Relationship Specialty Start Date End Date Sailaja Garland MD [address] [place] [address] [place] [phone] PCP - General Family Medicine 01/04/19 documented as of this encounter
--- OUTSIDE RECORDS SUMMARY | 2023-02-21 00:33 | External Medical Summary | Summary of Care ---
Author Name Unknown Organization [facility] Address [address] [place] [address] Phone [phone] Care Team Providers Care Window Glazier Helper Name Role Phone Priyanka Falcon MD Primary Care Prov ider Encounter Details Date Type Department Care Team Description 12/02/2022 Telephone Pharmacy, [address] [place] [address] [facility] [address] [place] [address] Allergies Active Allergy Reactions Severity Noted Date Comments Naproxen Sodium Bleeding High 12/03/2009 Hs of GI bleed Aspirin Bleeding High 12/03/2009 Doxycycline Neuro complications (Please comment) Medium 10/23/2010 Hallucinations Ibuprofen Bleeding High 12/03/2009 Hx of GI bleed Nitrofurantoin Monohydrate Macrocrystals Neuro complications (Please comment) Low 09/16/2009 Headaches Etqyrcag-Nxeppstuv-Af 01/25/2011 Caused eye problems Neosporin 05/30/2003 rash Sulfa Antibiotics 05/11/2002 nausea & vomiting Tramadol Hcl Unknown 12/03/2009 Triamterene 11/16/2022 ulcers documented as of this encounter (statuses as of 12/05/2022) Medications Medication Sig Dispensed Refills Start Date End Date Status ASPIRIN 81 MG PO TABS None Entered 0 Active [employer] VITAMIN B12 1000 MCG PO TABSIndications:V itamin B deficiency 1 TABLET DAILY 1 Tab 0 04/27/19 11 Active ONETOUCH ULTRASOFT LANCETS MISCIndications:D M type 2, goal A1c below 7 TESTING TWICE A DAY DX:250.00 [address] 02/23/20 13 Active Cholecalciferol (VITAMIN D3) 1000 UNITS CAPS [...] ITCHING 30 g 2 05/29/19 21 Active OneTouch Verio In Vitro Strip (Glucose Blood)Indications :Type [...] e11.9 1 Kit 0 05/15/19 22 Active OneTouch Ultra In Vitro Strip (Glucose Blood)Indications :Type 2 diabetes mellitus with hemoglobin A1c goal of less than 7.0% (HCC) USE TO TEST ONCE PER DAY 100 Strip 3 10/10/19 22 Active Metoprolol Succinate ER 100 MG [...] DAY WITH BREAKFAST AND SUPPER 180 Tablet 09/09/19 23 Active OneTouch Delica Plus [id number] ons:Type 2 diabetes mellitus with hemoglobin A1c goal of less than 7.5% (HCC) Use as directed. Use to test blood sugar once a day DX e11.9 100 Each 3 09/11/19 Active Gabapentin 100 MG Oral Capsule (Neurontin) Take 1 Capsule by mouth at bedtime. 30 Capsule 1 11/17/19 Active Additional Information Patient not taking.Reported on 11/29/2022 Furosemide 40 MG Oral Tablet (Lasix)Indication s:Congestive heart failure, unspecified HF chronicity, unspecified heart failure type (HCC) Take 1 Tablet by mouth in the morning. 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 current use of anticoagulant therapy,PAF (paroxysmal atrial fibrillation) (HCC) Take 4 mg (2 tablets) on Wednesdays; Take 2 mg (1 tablet) all other days OR as directed by anticoagulation clinic 100 Tablet 3 11/19/19 22 023 Discontinued documented as of this encounter (statuses as of 12/05/2022) Active Problems Problem Noted Date Typical atrial [...] as of this encounter (statuses as of 12/05/2022) Resolved Problems Problem Noted Date Resolved Date [...] as of this encounter (statuses as of 12/05/2022) Immunizations Name Administration Dates Next Due COVID-19 mRNA, LNP-s, No Pre serve, 2-Dose Series (Moderna) 01/13/2021,05/16/2020,04/17/2020 COVID-19, mRNA, LNP-s, PF, B ooster, 100mcg/0.5mg (Moderna) 07/26/2021 Covid-19, Mrna, Lnp-s, Pf, B ivalent, 50 Mcg, IM, 12 yrs and above (Moderna) 12/27/2021 H1N1 2009 Influenza, IM 03/20/2009 Pneumococcal Conjugate Vacc, 13 Valent (Prevnar) 07/29/2014 Pneumococcal Polysaccharide PPV23 (Pneumovax) 10/07/2002 Season Influenza, Quad, PF, Adjuvanted, 65+ Yrs, IM (FLUAD) 12/12/2019 Seasonal Influenza, PF, 6 mo ns & Above, IM , (Flulaval) 12/26/2017,01/11/2017 Seasonal Influenza, Quadriva lent Hd (Fluzone Hd) 11/16/2022,12/27/2021 Seasonal Influenza, Quadriva lent Hd, 65+ Yrs 01/11/2021 Seasonal Influenza, Quadriva lent, No Preserve, IM 01/04/2016,12/31/2014 Seasonal Influenza, Split, I IV3, With Preserve, Inj 12/02/2013,12/27/2012,12/21/2011,12/01,12/22/2009,12/08/2008,01/11/2008 ,12/26/2006,12/22/2005,12/16/2004,1107/2003,01/20/2003 Seasonal Influenza, Trivalen t, Adjuvanted, 65+ yrs [...] encounter Miscellaneous Notes * Telephone Encounter - Freda Curtis [facility] - 12/05/2022 11:44 AM EDT Noted, will plan to proceed with x5 day hold without Lovenox bridge. Will review with patient at upcoming appointment on 12/27. Thanks! Freda Curtis RPh, PharmD Clinical Pharmacist - Punch Press Feeder Medication Therapy [facility] 12/05/2022, 11:45 AM .[phone] * Telephone Encounter - Andrey Still DO - 12/05/2022 11:37 AM EDT Usually need 4-5 days to get back to as close as possible to INR of 1.0. Thanks * Telephone Encounter - Freda Curtis RPh - 12/02/2022 3:54 PM EDT Medication Therapy Disease Management - 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 Patient: Cristine Benitez | : 1935 Patient is scheduled for epidural steroid injection on 01/25. Per 11/29 TE, cardio agreeable to 3-5 day hold without Lovenox bridge. Patient is scheduled for OFS on 12/27. Will plan to review procedure instructions at that time. Dr Still - How long would you prefer warfarin to be held prior to the injection? Thanks! Freda Curtis RPh, PharmD Clinical Pharmacist - Punch Press Feeder Medication Therapy [facility] 12/02/2022, 3:56 PM .[phone] documented in this encounter Plan of Treatment Upcoming Encounters Date Type Specialty Care Team Description 12/08/2022 Office Visit Family Medicine Jessica Baugh PA-C [address] [place] [address] [place] [address] 12/27/2022 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 Pharmacy [address] [place] [address] 01/19/2023 Office Visit Cardiology Cameron Becerra PA-C [address] [place] [address] 01/25/2023 Hospital Encounter Surgery Andrey Still, DO [address] [place], [place] [address] 01/25/2023 Surgery Surgery Tessy Andrey Ten, DO [address] [place] [address] INJECTION SPINE LUMBAR OR SACRAL 02/03/2023 Office Visit Orthopedic Surgery Celso Zayas MD [address] [place] [phone] 02/24/2023 Office Visit [facility]C [address] [facility] [address] Scheduled Procedures Name Priority Associated Diagnoses Date/Ti [...] Additional history exists CKD HGB USE SMARTSET 21801 11/17/202311/16, 11/16/2022, 12/03/2021, Additional history exists CKD PHOS USE SMARTSET 41841 11/22/202311/11, 01/06/2021, 05/28/2020, Additional history exists DXA [...] as of this encounter Visit Diagnoses Diagnosis PAF (paroxysmal atrial fibrillation) (HCC)- Primary Atrial fibrillation Spinal stenosis of lumbar region with neurogenic claudication Spinal stenosis, lumbar region, with neurogenic claudication documented in this encounter Care Teams Window Glazier Helper Relationship Specialty Start Date End Date Priyanka Falcon MD [address] [place] [address] [place] [address] PCP - General Family Medicine 01/04/19 documented as of this encounter"
--- OUTSIDE RECORDS SUMMARY | 2023-02-21 00:33 | External Medical Summary | Summary of Care ---
Author Name Unknown Organization [facility] Address [address] [place] [address] Phone [phone] Care Team Providers Care Student Development Coordinator Name Role Phone Priyanka Falcon MD Primary Care Prov ider Encounter Details Date Type Department Care Team Description 12/02/2022 Telephone Pharmacy, [address] [place] [address] [facility] [address] [place] [address] Allergies Active Allergy Reactions Severity Noted Date Comments Naproxen Sodium Bleeding High 12/03/2009 Hs of GI bleed Aspirin Bleeding High 12/03/2009 Doxycycline Neuro complications (Please comment) Medium 10/23/2010 Hallucinations Ibuprofen Bleeding High 12/03/2009 Hx of GI bleed Nitrofurantoin Monohydrate Macrocrystals Neuro complications (Please comment) Low 09/16/2009 Headaches Xupmybyt-Mkrgqufyd-Qg 01/25/2011 Caused eye problems Neosporin 05/30/2003 rash [...] Tablet 09/09/19 23 Active OneTouch Delica Plus [id number] ons:Type 2 diabetes mellitus with hemoglobin A1c [...] ions:Atrial flutter, unspecified type (HCC),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 management encounter,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 Will review with patient at upcoming appointment on 12/27. Thanks! Freda Curtis RPh, PharmD Clinical Pharmacist - Wholesale Account Manager Medication Therapy Disease [facility] 12/05/2022, 11:45 AM .[phone] * Telephone Encounter - Andrey Still DO [...] Freda Curtis RPh, PharmD Clinical Pharmacist - Wholesale Account Manager Medication Therapy [facility] 12/02/2022, 3:56 PM .[phone] documented in this encounter Plan of Treatment Upcoming Encounters Date Type Specialty Care Team Description 12/08/2022 Office Visit Family Medicine Jessica Baugh PA-C [address] [place] [address] [place] [address] 12/27/2022 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 Pharmacy [address] [place] [address] 01/19/2023 Office Visit Cardiology Cameron Becerra PA-C [address] [place] [address] 01/25/2023 Hospital Encounter Surgery Andrey Still, DO [address] [place] [address] 01/25/2023 Surgery Surgery Tessy Andrey Ten, DO [address] [place] [address] INJECTION SPINE LUMBAR OR SACRAL 02/03/2023 Office Visit Orthopedic Surgery Celso Zayas MD [address] [place] [phone] 02/24/2023 Office Visit [facility]phrology Radha [facility] [address] [facility] [address] Scheduled Procedures Name Priority Associated Diagnoses Date/Ti [...] Additional history exists CKD HGB USE SMARTSET 29806 11/17/202311/16, 11/16/2022, 12/03/2021, Additional history exists CKD PHOS USE SMARTSET 74848 11/22/202311/11, 01/06/2021, 05/28/2020, Additional history exists DXA [...] claudication documented in this encounter Care Teams Student Development Coordinator Relationship Specialty Start Date End Date Priyanka Falcon MD [address] [place] [address] [place] [address] PCP - General Family Medicine 01/04/19 documented as of this encounter"
--- OUTSIDE RECORDS SUMMARY | 2023-02-21 00:33 | External Medical Summary | Summary of Care ---
Author Name Unknown Organization [facility] Address [address] [place] [address] Phone [phone] Care Team Providers Care Cisco Engineer Name Role Phone Priyanka Falcon MD Primary Care Prov ider Encounter Details Date Type Department Care Team Description 11/29/2022 Telephone Interventional Pain Center, [facility] [address] [facility] [place] [address] Cousins, Andrey Caal, [address] [place] [address] Allergies Active Allergy Reactions Severity Noted Date Comments Naproxen Sodium Bleeding High 12/03/2009 Hs of GI bleed Aspirin Bleeding High 12/03/2009 Doxycycline Neuro complications (Please comment) Medium 10/23/2010 Hallucinations Ibuprofen Bleeding High 12/03/2009 Hx of GI bleed Nitrofurantoin Monohydrate Macrocrystals Neuro complications (Please comment) Low 09/16/2009 Headaches Ethaceag-Eiigzawfe-Np 01/25/2011 Caused eye problems Neosporin 05/30/2003 rash Sulfa Antibiotics 05/11/2002 nausea & vomiting Tramadol Hcl Unknown 12/03/2009 Triamterene 11/16/2022 ulcers documented as of this encounter (statuses as of 11/29/2022) Medications Medication Sig Dispensed Refills Start Date End Date Status ASPIRIN 81 MG PO TABS None Entered 0 Active [facility] VITAMIN B12 1000 MCG PO TABSIndications:Vi tamin B deficiency 1 TABLET DAILY 1 Tab 0 04/27/2010 Active eXludus TechnologiesTOUCH ULTRASOFT LANCETS MISCIndications:DM type 2, goal A1c below 7 TESTING TWICE A DAY DX:250.00 [address] 02/22/2013 Active Cholecalciferol (VITAMIN D3) 1000 UNITS CAPS [...] FOR ITCHING 30 g 2 05/28/2020 Active RevoDealsToFusion Telecommunications Verio In Vitro Strip (Glucose Blood)Indications: Type 2 diabetes mellitus with hemoglobin A1c goal of less than 7.5% ([facility]) Use to test blood sugar once a day DX e11.9 100 Strip 3 05/14/2021 Active MinuteBuzzuch Verio Flex System w/Device KitIndications:Typ e 2 diabetes mellitus with hemoglobin A1c goal of less than 7.5% (HCC) Use as directed . Use to test blood sugar Dx e11.9 1 Kit 0 05/14/2021 Active Bawte Ultra In Vitro Strip (Glucose Blood)Indications: Type 2 diabetes mellitus with hemoglobin A1c goal of less than 7.0% (HCC) USE TO TEST ONCE PER DAY 100 Strip 3 10/09/2021 Active Warfarin Sodium 2 MG Oral Tablet (Coumadin)Indicati ons:Atrial flutter, unspecified type ([facility]),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,half-way current use of anticoagulant therapy,PAF (paroxysmal atrial fibrillation) ([facility]) Take 4 mg (2 tablets) on Wednesdays; Take 2 mg (1 tablet) all other days OR as directed by anticoagulation clinic 100 Tablet 3 11/18/2021 Active Metoprolol Succinate ER 100 MG Oral [...] Tablet 1 09/08/2022 Active OneTouch Delica Plus Mijhsm32SVduxcmtdy ns:Type 2 diabetes mellitus with hemoglobin A1c goal of less than 7.5% (HCC) Use as directed. Use to test blood sugar once a day DX e11.9 100 Each 3 09/10/2022 Active Gabapentin 100 MG Oral Capsule (Neurontin) Take 1 Capsule by mouth at bedtime. 30 Capsule 1 11/16/2022 Active Additional Information Patient not taking.Reported on 11/29/2022 Furosemide 40 MG Oral Tablet (Lasix)Indications :Congestive heart failure, unspecified HF chronicity, unspecified heart failure type (HCC) Take 1 Tablet by mouth in the morning. 30 Tablet 5 11/17/2022 Active HYDROcodone-Acetam inophen 5-325 MG Oral TabletIndications: Bilateral low back pain without sciatica, unspecified chronicity Take 1 Tablet by mouth 2 times a day as needed for Pain, Severe. 30 Tablet 0 11/18/2022 Active Atorvastatin Calcium 80 MG Oral Tablet (Lipitor)Indicatio ns:Dyslipidemia, goal LDL below 70 TAKE 1 TABLET BY MOUTH EVERY DAY IN THE MORNING 90 Tablet 3 11/21/2022 Active documented as of this encounter (statuses as of 11/29/2022) Active Problems Problem Noted Date Typical atrial [...] as of this encounter (statuses as of 11/29/2022) Resolved Problems Problem Noted Date Resolved Date [...] as of this encounter (statuses as of 11/29/2022) Immunizations Name Administration Dates Next Due COVID-19 [...] encounter Miscellaneous Notes * Telephone Encounter - Andrey Still DO - 11/29/2022 2:58 PM EDT Order placed for scheduling. Will coordinated with coag clinic when I have a schedule date. * Telephone Encounter - Andrey Still DO - 11/29/2022 2:58 PM EDT ----- Message from Cameron Becerra PA-C sent at 11/29/2022 2:55 PM EDT ----- Regarding: RE: coumadin OK to hold coumadin x 3-5 days without lovenox bridge. Cameron ----- Message ----- From: Andrey Still DO Sent: 11/29/2022 12:59 PM EDT To: Cameron Becerra PA-C Subject: coumadin Hi Cristine Barnes is having worsening claudication symptoms from her spinal stenosis and is interested in epidural steroid injection. I'd appreciate your input regarding the appropriateness of stopping Coumadin for injection. I would coordinated with the coag clinic. Thanks Andrey documented in this encounter Plan of Treatment Upcoming Encounters Date Type Specialty Care Team Description 11/30/2022 Nurse Only Nephrology [place], Nurse Nephrology [address] [place] [address] 12/08/2022 Office Visit Family Medicine Jessica Baugh PA-C [address] [place] [address] [place] [address] 12/27/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 [place] [address] 01/19/2023 Office Visit Cardiology Cameron Becerra PA-C [address] [place] [address] 02/03/2023 Office Visit Orthopedic Surgery Celso Zayas MD [address] [place] [phone] 02/24/2023 Office Visit Nephrology Radha Wyman PA-C [address] [facility] [place] [address] Scheduled Orders Name Type Priority Associated Diagnoses Orde r Schedule INJECT DX/THER SUBSTANCE INTERLAMINAR LUMBAR/SACRAL W IMAGE GUIDE Procedures Routine Spinal stenosis of lumbar region with neurogenic claudication Expected: 12/13/2022, Expires: 12/30/2023 Health Maintenance Due Date Last Done Comments Zoster Vaccines (2 of 3) 08/02/2010 06/07/2010 Depression Screening 08/03/2021 08/03/2020 Diabetic Foot Exam 02/08/2023 02/08/2022, 0 05/28/2020, 05/17/2019, Additional history exists DIABETES-EYE EXAM 03/15/2023 03/15/2022, , 09/26/2019, Additional history exists HbA1c 05/17/2023 11/16/2022, 11/12, 04/28/2021, Additional history exists Albumin/Creatinine Ratio 11/17/2023 023, 03/29/2022, 01/06/2021, Additional history exists CKD HGB USE SMARTSET 45424 11/17/202311/16, 11/16/2022, 12/03/2021, Additional history exists CKD PHOS USE SMARTSET 59679 11/22/202311/11, 01/06/2021, 05/28/2020, Additional history exists DXA [...] Visit Diagnoses Diagnosis Spinal stenosis of lumbar region with neurogenic claudication- Primary Spinal stenosis, lumbar region, with neurogenic claudication documented in this encounter Care Teams Cisco Engineer Relationship Specialty Start Date End Date Priyanka Falcon MD [address] [place] [address] [place] [phone] PCP - General Family Medicine 01/04/19 documented as of this encounter
--- OUTSIDE RECORDS SUMMARY | 2023-02-21 00:33 | External Medical Summary | Summary of Care ---
Author Name Unknown Organization [facility] Address [address] [place] [address] Phone [phone] Care Team Providers Care Supplier Quality Engineering Manager Name Role Phone Priyanka Falcon MD Primary Care Prov ider Reason for Visit * Reason Comments Outpatient Testing Encounter Details Date Type Department Care Team Description 12/08/2022 Laboratory Laboratory [address] [place] [phone] [place] [address] Essential hypertension with goal blood pressure less than 140/90; Encounter for monitoring diuretic therapy Allergies Active Allergy Reactions Severity Noted Date Comments Naproxen Sodium Bleeding High 12/03/2009 Hs of GI bleed Aspirin Bleeding High 12/03/2009 Doxycycline Neuro complications (Please comment) Medium 10/23/2010 Hallucinations Ibuprofen Bleeding High 12/03/2009 Hx of GI bleed Nitrofurantoin Monohydrate Macrocrystals Neuro complications (Please comment) Low 09/16/2009 Headaches Qtnwncdl-Lhknahaac-Dc 01/25/2011 Caused eye problems Neosporin 05/30/2003 rash [...] FOR ITCHING 30 g 2 05/28/2020 Active Naplyrics.comToPersystent Technologies Verio In Vitro Strip (Glucose Blood)Indications: Type 2 diabetes mellitus with hemoglobin A1c goal of less than 7.5% (HCC) Use to test blood sugar once a day DX e11.9 100 Strip 3 05/14/2021 Active Naplyrics.comTouch Verio Flex System w/Device KitIndications:Typ e 2 [...] hemoglobin A1c goal of less than 7.5% ([facility]) TAKE 1 TABLET BY MOUTH TWICE A DAY WITH BREAKFAST AND SUPPER 180 Tablet 1 09/08/2022 Active OneTouch Delica Plus Fylofi55PPkvtujdue ns:Type 2 diabetes mellitus with hemoglobin A1c goal of less than 7.5% ([facility]) Use as directed. Use to [...] Oral Tablet (Coumadin)Indicati ons:Atrial flutter, unspecified type ([facility]),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,intermediate current use of anticoagulant therapy,PAF (paroxysmal atrial fibrillation) ([facility]) TAKE 1-2 TABLETS BY MOUTH DAILY DIRECTED BY ANTICOAGULATION CLINIC 100 Tablet 3 12/05/2022 Active Furosemide 40 MG Oral Tablet (Lasix) Take 1 Tablet by mouth in the morning. 90 Tablet 1 12/08/2022 Active OneTouch Ultra In Vitro Strip (Glucose Blood)Indications: Type 2 diabetes mellitus with hemoglobin A1c goal of less than 7.0% ([facility]) USE TO TEST ONCE PER [...] Type Specialty Care Team Description 12/27/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 [place] [address] 01/19/2023 Office Visit Cardiology Cameron Becerra PA-C [address] [place] [address] 01/25/2023 Hospital Encounter Surgery Andrey Still, [address] [place] [address] 01/25/2023 Surgery Surgery Andrey Still, [address] [place] [address] INJECTION SPINE LUMBAR OR SACRAL 02/03/2023 Office Visit Orthopedic Surgery Celso Zayas MD [address] [place] [address] 02/24/2023 Office Visit Nephrology Radha Wyman PA-C [address] [place] [address] 07/04/2023 [facility] [address] [facility] [place] [address] Pending Results Name Type Priority Associated Diagnoses Date /Time BASIC METABOLIC PANEL Lab Routine Essential hypertension with goal blood pressure less than 140/90 Encounter for monitoring diuretic therapy 12/08/2022 3:13 PM EDT Scheduled Procedures Name Priority Associated [...] Additional history exists CKD HGB USE SMARTSET 50075 11/17/202311/16, 11/16/2022, 12/03/2021, Additional history exists CKD PHOS USE SMARTSET 10428 11/22/202311/11, 01/06/2021, 05/28/2020, Additional history exists DXA [...] with goal blood pressure less than 140/90 Encounter for monitoring diuretic therapy Encounter for therapeutic drug monitoring Spinal stenosis of lumbar region with neurogenic claudication Spinal stenosis, lumbar region, with neurogenic claudication documented in this encounter Care Teams Supplier Quality Engineering Manager Relationship Specialty Start Date End Date Priyanka Falcon MD [address] [place] [address] [place] [address] PCP - General Family Medicine 01/04/19 documented as of this encounter
--- OUTSIDE RECORDS SUMMARY | 2023-02-21 00:33 | External Medical Summary | Summary of Care ---
Author Name Unknown Organization [facility] Address [address] [place] [address] Phone [phone] Care Team Providers Care Supervisor Paste Mixing Name Role Phone Priyanka Falcon MD Primary Care Prov ider Reason for Visit * Reason Onset Date Comments Test Results 11/29/2022 Encounter Details Date Type Department Care Team Description 11/29/2022 Telephone [place], [facility] [place] [address] [place] [address] Carlene Kendrick MD [address] [place] [address] Test Results Allergies Active Allergy Reactions Severity Noted Date Comments Naproxen Sodium Bleeding High 12/03/2009 Hs of GI bleed Aspirin Bleeding High 12/03/2009 Doxycycline Neuro complications (Please comment) Medium 10/23/2010 Hallucinations Ibuprofen Bleeding High 12/03/2009 Hx of GI bleed Nitrofurantoin Monohydrate Macrocrystals Neuro complications (Please comment) Low 09/16/2009 Headaches Abdjexrm-Ksgohxrra-Oq 01/25/2011 Caused eye problems Neosporin 05/30/2003 rash Sulfa Antibiotics 05/11/2002 nausea & vomiting Tramadol Hcl Unknown 12/03/2009 Triamterene 11/16/2022 ulcers documented as of this encounter (statuses as of 11/30/2022) Medications Medication Sig Dispensed Refills Start Date End Date Status ASPIRIN 81 MG PO TABS None Entered 0 Active [facility] VITAMIN B12 1000 MCG PO TABSIndications:Vi tamin B deficiency 1 TABLET DAILY 1 Tab 0 04/27/2010 Active eBrisk VideoTOUCH ULTRASOFT LANCETS MISCIndications:DM type 2, goal A1c [...] FOR ITCHING 30 g 2 05/28/2020 Active MongoHQToNuji Verio In Vitro Strip (Glucose Blood)Indications: Type 2 diabetes mellitus with hemoglobin A1c goal of less than 7.5% ([facility]) Use to test blood sugar once a day DX e11.9 100 Strip 3 05/14/2021 Active MongoHQTouch Verio Flex System w/Device KitIndications:Typ e 2 diabetes mellitus with hemoglobin A1c goal of less than 7.5% (HCC) Use as directed . 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,PAF (paroxysmal atrial fibrillation) ([facility]) Take 4 mg (2 [...] Tablet 1 09/08/2022 Active OneTouch Delica Plus Aryhzc95MGfnrlyznw ns:Type 2 diabetes mellitus with hemoglobin A1c [...] as of this encounter (statuses as of 11/30/2022) Active Problems Problem Noted Date Typical atrial [...] as of this encounter (statuses as of 11/30/2022) Resolved Problems Problem Noted Date Resolved Date [...] as of this encounter (statuses as of 11/30/2022) Immunizations Name Administration Dates Next Due COVID-19 [...] encounter Miscellaneous Notes * Telephone Encounter - Kellen Kinney RN - 11/30/2022 1:03 PM EDT Discussed results at [facility] today. * Telephone Encounter - Lillian Sheppard RN - 11/29/2022 12:43 PM EDT I left a message for the patient to return my call. 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 Pls update pt documented in this encounter Plan of Treatment Upcoming Encounters Date Type Specialty Care Team Description 12/08/2022 Office Visit Family Medicine Jessica Baugh PA-C [address] [place] [address] [place] [address] 12/27/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 [place] [address] 01/19/2023 Office Visit Cardiology Cameron Becerra PA-C [address] [place] [address] 01/25/2023 Hospital Encounter Surgery Andrey Still, [address] [place] [address] 01/25/2023 Surgery Surgery Andrey Still DO [address] [place] [address] INJECTION SPINE LUMBAR OR SACRAL 02/03/2023 Office Visit Orthopedic Surgery Celso Zayas MD [address] [place] [address] 02/24/2023 Office Visit Nephrology Radha Wyman PA-C [facility] [place] [address] Scheduled Procedures Name Priority Associated Diagnoses Date/Ti [...] Additional history exists CKD HGB USE SMARTSET 31704 11/17/202311/16, 11/16/2022, 12/03/2021, Additional history exists CKD PHOS USE SMARTSET 66227 11/22/202311/11, 01/06/2021, 05/28/2020, Additional history exists DXA [...] filedocumented as of this encounter Care Teams Supervisor Paste Mixing Relationship Specialty Start Date End Date Priyanka Falcon MD [address] [place] [address] [place] [address] PCP - General Family Medicine 01/04/19 documented as of this encounter
--- OUTSIDE RECORDS SUMMARY | 2023-02-21 00:33 | External Medical Summary | Summary of Care ---
Author Name Unknown Organization [facility] Address [address] [place] [address] Phone [phone] Care Team Providers Care Measurement And Verification Engineer Name Role Phone Priyanka Falcon MD Primary Care Prov ider Reason for Visit * Reason Comments Dosage Adjustment In Person (Anticoag Cl inic) Encounter Details Date Type Department Care Team Description 11/29/2022 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 Pharmacy, [address] [place] [address] [place] [address] PAF (paroxysmal atrial fibrillation) ([facility])*; 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 management encounter; snf current use of anticoagulant therapy Allergies Active Allergy Reactions Severity Noted Date Comments Naproxen Sodium Bleeding High 12/03/2009 Hs of GI bleed Aspirin Bleeding High 12/03/2009 Doxycycline Neuro complications (Please comment) Medium 10/23/2010 Hallucinations Ibuprofen Bleeding High 12/03/2009 Hx of GI bleed Nitrofurantoin Monohydrate Macrocrystals Neuro complications (Please comment) Low 09/16/2009 Headaches Cnxksrvw-Ofshnylqb-Cw 01/25/2011 Caused eye problems Neosporin 05/30/2003 rash [...] TABLET DAILY 1 Tab 0 04/27/2010 Active AerospikeTOUCH ULTRASOFT LANCETS MISCIndications:DM type 2, goal A1c [...] FOR ITCHING 30 g 2 05/28/2020 Active Zylie the BearToSquawkin Inc[employer] Verio In Vitro Strip (Glucose Blood)Indications: Type 2 diabetes mellitus with hemoglobin A1c goal of less than 7.5% ([facility]) Use to test blood sugar once a day DX e11.9 100 Strip 3 05/14/2021 Active Zylie the [employer] Verio Flex System w/Device KitIndications:Typ e 2 diabetes mellitus with hemoglobin A1c goal of less than 7.5% (HCC) Use as directed . 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 Medication Therapy Disease Management - 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 Patient: Cristine Benitez | : 1935 Subjective Patient presents with son, Cipriano Patient-Reported Symptoms: Patient Findings Positives: Upcoming invasive procedure Negatives: Signs/symptoms of thrombosis, Signs/symptoms of bleeding, Change in health, Change in alcohol use, Change in activity, Missed doses, Extra doses, Change in medications, Change in diet/appetite, Bruising Objective Current Warfarin Dose As of 11/29/2022 Warfarin maintenance plan: 4 mg (2 mg x 2) every Wed; 2 mg (2 mg x 1) all other days INR Result As of 11/29/2022 INR goal: 2.0-3.0 INR used for dosin.1 (11/29/2022) Assessment & Plan Warfarin Plan As of 11/29/2022 Full warfarin instructions: 4 mg every Wed; 2 mg all other days No change documented: Freda Curtis RPh Next INR check: 12/27/2022 Repeat PT/INR in 4 week(s) Weekly dose: not changed Additional Dosing Information: Patient working with Dr Still regarding spinal stenosis. Looking to schedule steroid injection, will need to be off of warfarin. Message sent to cardio. Will plan to follow up upon response and once procedure date is scheduled. Remind-me sent to follow up. Description Write tablets only on card Freda Curtis RPh Clinical Pharmacist 11/29/2022, 2:48 PM documented in this encounter Plan of Treatment Upcoming Encounters Date Type Specialty Care Team Description 11/30/2022 Nurse Only Nephrology [place], Nurse Nephrology [address] [place] [address] 12/08/2022 Office Visit Family Medicine Jessica Baugh PAJesse [address] [place] [address] [place] [address] 12/27/2022 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 Pharmacy [place], [address] [place] [address] 01/19/2023 Office Visit Cardiology Cameron Becerra PA-C [address] [place] [address] 02/03/2023 Office Visit Orthopedic Surgery Celso Zayas MD [address] [place] [address] 02/24/2023 Office Visit Nephrology Radha [facility]-C [address] [facility] [address] Health Maintenance Due Date Last Done Comments Zoster Vaccines (2 of 3) 08/02/2010 06/07/2010 Depression Screening 08/03/2021 08/03/2020 Diabetic Foot Exam 02/08/2023 02/08/2022, 0 05/28/2020, 05/17/2019, Additional history exists DIABETES-EYE EXAM 03/15/2023 03/15/2022, , 09/26/2019, Additional history exists HbA1c 05/17/2023 11/16/2022, 11/12, 04/28/2021, Additional history exists Albumin/Creatinine Ratio 11/17/2023 023, 03/29/2022, 01/06/2021, Additional history exists CKD HGB USE SMARTSET 86785 11/17/202311/16, 11/16/2022, 12/03/2021, Additional history exists CKD PHOS USE SMARTSET 90969 11/22/202311/11, 01/06/2021, 05/28/2020, Additional history exists DXA [...] Comments INR FINGERSTICK, POINT OF CARE STAT 11/29/2022 3:00 PM EDT PAF (paroxysmal atrial fibrillation) (HCC) 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 management encounter 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 documented in this encounter Results * INR FINGERSTICK, POINT OF CARE (11/29/2022 3:00 PM EDT) Fingerstick INR 3.1 INR 3:01 PM EDT [facility] [place] [phone] Blood 11/29/2022 3:00 PM EDT 11/29/2022 3:01 PM EDT Narrative [facility] [place] [facility] - 11/29/2022 3:01 PM EDT Therapeutic ranges for non-operative patients: Prophylaxsis/treatment of DVT: (Range:2.0-3.0) Treatment of pulmonary embolism:(Range:2.0-3.0) Prevention of systemic embolism from: -tissue heart valves -acute myocardial infarction -valvular heart disease -atrial fibrillation (Range: 2.0-3.0) Mechanical prosthetic valves: (Range: 2.5-3.5) Freda Curtis [facility] POINT OF CARE TEST DOCKED DEVICE UNSOLICITED RESULTS [facility] [place] [facility] [place] [address] documented in this encounter Visit Diagnoses Diagnosis PAF (paroxysmal atrial fibrillation) (HCC)- Primary Atrial fibrillation 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 management encounter Encounter for therapeutic drug monitoring 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 documented in this encounter Care Teams Measurement And Verification Engineer Relationship Specialty Start Date End Date Priyanka Falcon MD [address] [place] [address] [place] [address] PCP - General Family Medicine 01/04/19 documented as of this encounter"
--- OUTSIDE RECORDS SUMMARY | 2023-02-21 00:33 | External Medical Summary | Summary of Care ---
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; PAF (paroxysmal atrial fibrillation) ([facility]) Allergies Active Allergy Reactions Severity Noted Date Comments Naproxen Sodium Bleeding High 12/03/2009 Hs of GI bleed Aspirin Bleeding High 12/03/2009 Doxycycline Neuro complications (Please comment) Medium 10/23/2010 Hallucinations Ibuprofen Bleeding High 12/03/2009 Hx of GI bleed Nitrofurantoin Monohydrate Macrocrystals Neuro complications (Please comment) Low 09/16/2009 Headaches Tzddzmvp-Pgccgwvjb-Mb 01/25/2011 Caused eye problems Neosporin 05/30/2003 rash [...] 30 MINUTES BEFORE A MEAL 90 Tablet 06/25/19 23 Active amLODIPine Besylate 2.5 MG Oral Tablet (Norvasc) Take 1 Tablet by mouth in the morning. 90 Tablet 06/26/19 23 Active Lisinopril 20 MG Oral Tablet (Prinivil)Indicat ions:Essential hypertension with goal blood pressure less than 140/90,Hypertensi on goal BP (blood pressure) < 140/90 TAKE 1 TABLET BY MOUTH EVERY DAY 90 Tablet 08/20/19 23 Active Docusate Sodium 100 MG Oral Capsule (Colace)Indicatio ns:Constipation, unspecified constipation type TAKE 1 CAP BY MOUTH EVERY MORNING. CAN TAKE 1 CAP IN THE EVENING NEEDED 60 Capsule 08/26/19 23 Active LORazepam 0.5 MG Oral Tablet (Ativan)Indicatio ns:Persistent insomnia TAKE 1 TABLET BY MOUTH TWICE A DAY NEEDED FOR ANXIETY 120 Tablet 08/26/19 23 Active metFORMIN HCl 500 MG Oral Tablet (Glucophage)Indic ations:Type 2 diabetes mellitus with hemoglobin A1c goal of less than 7.5% (HCC) TAKE 1 TABLET BY MOUTH TWICE A DAY WITH BREAKFAST AND SUPPER 180 Tablet 09/09/19 23 Active OneTouch Delica Plus [id number] ons:Type 2 diabetes mellitus with hemoglobin A1c goal of less than 7.5% (HCC) Use as directed. Use to test blood sugar once a day DX e11.9 100 Each 3 09/11/19 23 Active Gabapentin 100 MG Oral Capsule (Neurontin) Take 1 Capsule by mouth at bedtime. 30 Capsule 1 11/17/19 23 Active Additional Information Patient not taking.Reported [...] ions:Atrial flutter, unspecified type (HCC),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 management encounter,custodial current use of anticoagulant therapy,PAF (paroxysmal atrial fibrillation) (HCC) TAKE 1-2 TABLETS BY MOUTH DAILY DIRECTED BY ANTICOAGULATION CLINIC 100 Tablet 3 12/06/19 23 Active Warfarin Sodium 2 MG Oral Tablet (Coumadin)Indicat ions:Atrial flutter, unspecified type (HCC),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 management encounter,custodial current use of anticoagulant therapy,PAF (paroxysmal atrial [...] encounter Miscellaneous Notes * Telephone Encounter - Jeremy Curtis [facility] - 12/05/2022 8:34 AM EDT Signed Prescriptions: Disp Refills Warfarin Sodium 2 MG Oral Tablet (Coumadin)100 Ta*3 Sig: TAKE 1-2 TABLETS BY MOUTH DAILY DIRECTED BY ANTICOAGULATION CLINICAuthorizing Provider: SAILAJA GARLAND User: JEREMY CURTIS documented in this encounter Plan of Treatment Upcoming Encounters Date Type Specialty Care Team Description 12/08/2022 Office Visit Family Medicine Jessica Baugh PA-C [address] [place] [address] [place] [address] 12/27/2022 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 Pharmacy [address] [place] [address] 01/19/2023 Office Visit Cardiology Cameron Becerra PA-C [address] [place] [address] 01/25/2023 Hospital Encounter Surgery Andrey Still, [address] [place] [address] 01/25/2023 Surgery Surgery Andrey Still, DO [address] [place] [address] INJECTION SPINE LUMBAR OR SACRAL 02/03/2023 Office Visit Orthopedic Surgery Celso Zayas MD [address] [place] [address] 02/24/2023 Office Visit Nephrology Radha Wyman PA-C [address] [facility] [place] [address] Scheduled Procedures Name Priority Associated Diagnoses Date/Ti [...] Additional history exists CKD HGB USE SMARTSET 67045 11/17/202311/16, 11/16/2022, 12/03/2021, Additional history exists CKD PHOS USE SMARTSET 76179 11/22/202311/11, 01/06/2021, 05/28/2020, Additional history exists DXA [...] as of this encounter Visit Diagnoses Diagnosis Atrial flutter, unspecified type (HCC) 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 management encounter Encounter for therapeutic drug monitoring continuous 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
--- OUTSIDE RECORDS SUMMARY | 2023-02-21 00:33 | External Medical Summary | Summary of Care ---
Author Name Unknown Organization [facility] Address [address] [place] [address] Phone [phone] Care Team Providers Care Coal And Ash Supervisor Name Role Phone Priyanka Falcon MD Primary Care Prov ider Reason for Visit * Reason Comments Blood Pressure Check Encounter Details Date Type Department Care Team Description 11/30/2022 Nurse Only Nephrology [address] [place] [address] [place], Nurse Nephrology [address] [place] [address] Blood Pressure Check Allergies Active Allergy Reactions Severity Noted Date Comments Naproxen Sodium Bleeding High 12/03/2009 Hs of GI bleed Aspirin Bleeding High 12/03/2009 Doxycycline Neuro complications (Please comment) Medium 10/23/2010 Hallucinations Ibuprofen Bleeding High 12/03/2009 Hx of GI bleed Nitrofurantoin Monohydrate Macrocrystals Neuro complications (Please comment) Low 09/16/2009 Headaches Slnoddog-Uylneflqp-Vu 01/25/2011 Caused eye problems Neosporin 05/30/2003 rash [...] TABLET DAILY 1 Tab 0 04/27/2010 Active Horse Creek EntertainmentTOUCH ULTRASOFT LANCETS MISCIndications:DM type 2, goal A1c [...] FOR ITCHING 30 g 2 05/28/2020 Active [employer] Systems Verio In Vitro Strip (Glucose Blood)Indications: Type 2 diabetes mellitus with hemoglobin A1c goal of less than 7.5% ([facility]) Use to test blood sugar once a day DX e11.9 100 Strip 3 05/14/2021 Active LiveQoSTouch Verio Flex System w/Device KitIndications:Typ e 2 diabetes mellitus with hemoglobin A1c goal of less than 7.5% ([facility]) Use as directed . 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,PAF (paroxysmal atrial fibrillation) ([facility]) Take 4 mg (2 tablets) on Wednesdays; [...] A DAY NEEDED FOR ANXIETY 120 Tablet 08/25/2022 Active metFORMIN HCl 500 MG Oral Tablet (Glucophage)Indica tions:Type 2 diabetes mellitus with hemoglobin A1c goal of less than 7.5% (HCC) TAKE 1 TABLET BY MOUTH TWICE A DAY WITH BREAKFAST AND SUPPER 180 Tablet 1 09/08/2022 Active OneTouch Delica Plus [id number] ns:Type 2 diabetes mellitus with hemoglobin A1c [...] Sign Reading Time Taken Comments Blood Pressure 123/65 11/30/2022 1:18 PM EDT chava e Pulse 81 11/30/2022 1:09 PM EDT Temperature - - Respiratory Rate - - Oxygen Saturation - - Inhaled Oxygen Concentration - - Weight - - Height - - Body Mass Index - - documented in this encounter Nursing Notes * Kellen Kinney, RN - 11/30/2022 1:11 PM EDT Here for blood pressure cuff validation. 3 day log given with instructions. Son voiced understanding. documented in this encounter Plan of Treatment Upcoming Encounters Date Type Specialty Care Team Description 12/08/2022 Office Visit Family Medicine Jessica Baugh PAJose FranciscoC [address] [place] [address] [place] [address] 12/27/2022 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 Pharmacy [address] [place] [address] 01/19/2023 Office Visit Cardiology Cameron Becerra PA-C [address] [place] [address] 01/25/2023 Hospital Encounter Surgery Andrey Still, DO [address] [place] [address] 01/25/2023 Surgery Surgery Andrey Still, DO [address] [place] [address] INJECTION SPINE LUMBAR OR SACRAL 02/03/2023 Office Visit Orthopedic Surgery Celso Zayas MD [address] [place] [id number] 02/24/2023 Office Visit Nephrology Radha Wyman PA-C [facility] [address] Scheduled Procedures Name Priority Associated Diagnoses Date/Ti [...] Additional history exists CKD HGB USE SMARTSET 17705 11/17/202311/16, 11/16/2022, 12/03/2021, Additional history exists CKD PHOS USE SMARTSET 37856 11/22/202311/11, 01/06/2021, 05/28/2020, Additional history exists DXA [...] filedocumented as of this encounter Care Teams Coal And Ash Supervisor Relationship Specialty Start Date End Date Priyanka Falcon MD [address] [place] [address] [place] [address] PCP - General Family Medicine 01/04/19 documented as of this encounter
--- OUTSIDE RECORDS SUMMARY | 2023-02-21 00:33 | External Medical Summary ---
Author Name Unknown Address Unknown Organization K01:[facility] [address] [facility] [address] [place] [address] Laboratory Report Ordering Provider Test Date Status JENNI HOANG 12/08/2022 15:13:30 Final Observation Date Value Abnormality Reference (Units ) Status BUN 12/08/2022 15:13:30 48 Above high normal 6-20 (mg/dL) Final Creatinine 12/08/2022 15:13:30 1.5 Above high normal 0.5-1.0 (mg/dL) Final Glomerular filtration rate/1.73 sq M.predicted [Volume Rate/Area] in Serum, Plasma or Blood by Creatinine-based formula (CKD-EPI) 12/08/2022 15:13:30 34 Below low normal >=60 (mL/min) Final eGFR is calculated based on the CKD-EPI 2020 equation SODIUM 12/08/2022 15:13:30 141 135-146 (m mol/L) Final Potassium 12/08/2022 15:13:30 4.7 3.5-5.1 (m mol/L) Final Cl 12/08/2022 15:13:30 103 98-107 (mm ol/L) Final CO2 12/08/2022 15:13:30 23 22-32 (mmo l/L) Final Anion gap 12/08/2022 15:13:30 15 7-15 (mmol /L) Final Glucose 12/08/2022 15:13:30 141 Above high normal 70 -120 (mg/dL) Final Calcium 12/08/2022 15:13:30 9.5 8.4-10.2 ( mg/dL) Final Performing Location [facility] [address] [place] [address]
--- OUTSIDE RECORDS SUMMARY | 2023-02-21 00:34 | External Medical Summary | Summary of Care ---
Author Name Unknown Organization [facility] Address [address] [place] [address] Phone [phone] Care Team Providers Care Police Inspector Name Role Phone Priyanka Falcon MD Primary Care Prov ider Reason for Visit * Reason Onset Date Comments Test Results 11/21/2022 ECHO REPORT Encounter Details Date Type Department Care Team Description 11/21/2022 Telephone Family Medicine [address] [phone] Jessica Baugh PA-C [address] [place] [address] [place] [address] Test Results (ECHO REPORT) Allergies Active Allergy Reactions Severity Noted Date Comments Naproxen Sodium Bleeding High 12/03/2009 Hs of GI bleed Aspirin Bleeding High 12/03/2009 Doxycycline Neuro complications (Please comment) Medium 10/23/2010 Hallucinations Ibuprofen Bleeding High 12/03/2009 Hx of GI bleed Nitrofurantoin Monohydrate Macrocrystals Neuro complications (Please comment) Low 09/16/2009 Headaches Xtfufejr-Vacmrkrjw-Bt 01/25/2011 Caused eye problems Neosporin 05/30/2003 rash [...] TABLET DAILY 1 Tab 0 04/27/2010 Active Varada InnovationsTOUCH ULTRASOFT LANCETS MISCIndications:DM type 2, goal A1c [...] FOR ITCHING 30 g 2 05/28/2020 Active Route4MeToWAVE ([employer]) Verio In Vitro Strip (Glucose Blood)Indications: Type 2 diabetes mellitus with hemoglobin A1c goal of less than 7.5% ([facility]) Use to test blood sugar once a day DX e11.9 100 Strip 3 05/14/2021 Active [employer]ToWAVE ([employer]) Verio Flex System w/Device KitIndications:Typ e 2 diabetes mellitus with hemoglobin A1c goal of less than 7.5% (HCC) Use as directed . Use to test blood sugar Dx e11.9 1 Kit 0 05/14/2021 Active VuPoynt Media Group Ultra In Vitro Strip (Glucose Blood)Indications: Type 2 diabetes mellitus with hemoglobin A1c goal of less than 7.0% (HCC) USE TO TEST ONCE PER DAY 100 Strip 3 10/09/2021 Active Warfarin Sodium 2 MG Oral Tablet (Coumadin)Indicati ons:Atrial flutter, unspecified type (HCC),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,jail current use of anticoagulant therapy,PAF (paroxysmal atrial fibrillation) ([facility]) Take 4 mg (2 tablets) [...] DAY WITH BREAKFAST AND SUPPER 180 Tablet 09/08/2022 Active OneTouch Delica Plus [id number] ns:Type 2 diabetes mellitus with hemoglobin A1c goal of less than 7.5% (HCC) Use as directed. Use to test blood sugar once a day DX e11.9 100 Each 3 09/10/2022 Active Gabapentin 100 MG Oral Capsule (Neurontin) Take 1 Capsule by mouth at bedtime. 30 Capsule 11/16/2022 Active Furosemide 40 MG Oral Tablet (Lasix)Indications :Congestive [...] THE MORNING 90 Tablet 3 11/21/2022 Active Cephalexin 500 MG Oral Capsule (Keflex) Take 1 Capsule by mouth in the morning and 1 Capsule before bedtime. Do all this for 5 days. 10 Capsule 0 11/17/2022 11/23/19 23 documented as of this encounter (statuses as [...] Split, I IV3, With Preserve, Inj 12/02/2013,12/27/2012,12/21/2011,12/01,12/22/2009,12/08/2008,01/11/2008 ,12/26/2006,12/22/2005,12/16/2004,07/2003,01/20/2003 Seasonal Influenza, Trivalen t, Adjuvanted, 65+ yrs [...] encounter Miscellaneous Notes * Telephone Encounter - Nina Kent CMA - 11/29/2022 9:58 AM EDT I called the patient and left a message to call [phone]. She should already be aware of the cardiology results from their telephone call. I was just calling to see if she was willing to do test below. * Telephone Encounter - Jessica Baugh PA-C - 11/25/2022 3:02 PM EDT Is patient willing to do overnight oximetry to test blood oxygen overnight? We can work on this DMEorder if so. Keep follow ups otherwise. * Telephone Encounter - Cameron Becerra PA-C - 11/23/2022 3:21 PM EDT November 17, 2022 TTE Interpretation Summary (as [...] tricuspid regurgitation with mild pulmonary hypertension nowpresent. Echocardiography, ordered by Mrs. Baugh, forwarded to and reviewed by the undersigned 11/22/2022. Recommendations communicated with Mrs. Baugh and Dr. Kendrick of Nephrology. Echo revealed moderate to severe mitral regurgitation, moderate tricuspid regurgitation, and mild pulmonary hypertension. Recommendations Treat medically with good blood pressure control and diuresis. The recent change in kidney functionis likely obligatory. Continue furosemide at 40 mg/day. Repeat a basic metabolic panel in 2 to 3 weeks. Consider evaluation for hypoxemia via nocturnal pulse oximetry Cameron Becerra PA-C Department of Cardiology * Telephone Encounter - Romi Zelaya CMA - 11/23/2022 10:15 AM EDT Please review and advise. Patient is currently scheduled with you on 01/19/23. * Telephone Encounter - Lesia Gonzalez RN - 11/22/2022 4:08 PM EDT Jessica is reviewing the results with Cardio, then we will contact her Does Cardio need to see her prior to January? From Jessica: "She has worsening valve leaking on her Echo which may be related to her fluid overload or valve issues. I'm going to send a message to Cardio to see if they need to see her sooner than January. " * Telephone Encounter - MAGALI Arboleda - 11/21/2022 11:48 AM EDT Pt stated has not heard the results of the Echo that she had done. Please contact pt w/ results. documented in this encounter Plan of Treatment Upcoming Encounters Date Type Specialty Care Team Description 11/29/2022 Office Visit Pain Medicine Andrey Still, DO [address] [place] [address] 11/29/2022 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 Pharmacy [place], [facility] [address] [place] [address] 11/30/2022 Nurse Only Nephrology [place], Nurse Nephrology [address] [place] [address] 12/08/2022 Office Visit Family Medicine Jessica Baugh PA-C [address] [facility] [place] [address] 01/19/2023 Office Visit Cardiology Cameron Becerra PA-C [address] [place] [address] 02/03/2023 Office Visit Orthopedic Surgery Celso Zayas MD [address] [place] [address] 02/24/2023 Office Visit Nephrology Radha Wyman PA-C [facility] [place] [address] Health Maintenance Due Date Last Done Comments Zoster Vaccines (2 of 3) 08/02/2010 06/07/2010 Depression Screening 08/03/2021 08/03/2020 Diabetic Foot Exam 02/08/2023 02/08/2022, 0 05/28/2020, 05/17/2019, Additional history exists DIABETES-EYE EXAM 03/15/2023 03/15/2022, , 09/26/2019, Additional history exists HbA1c 05/17/2023 11/16/2022, 11/12, 04/28/2021, Additional history exists Albumin/Creatinine Ratio 11/17/2023 023, 03/29/2022, 01/06/2021, Additional history exists CKD HGB USE SMARTSET 03019 11/17/202311/16, 11/16/2022, 12/03/2021, Additional history exists CKD PHOS USE SMARTSET 35955 11/22/202311/11, 01/06/2021, 05/28/2020, Additional history exists DXA [...] filedocumented as of this encounter Care Teams Police Inspector Relationship Specialty Start Date End Date Priyanka Falcon MD [address] [place] [address] [place] [address] PCP - General Family Medicine 01/04/19 documented as of this encounter
--- OUTSIDE RECORDS SUMMARY | 2023-02-21 00:34 | External Medical Summary | Summary of Care ---
Author Name Unknown Organization [facility] Address [address] [place] [address] Phone [phone] Care Team Providers Care Deicer Kit Assembler Name Role Phone Priyanka Falcon MD Primary Care Prov ider Reason for Visit * Reason Onset Date Comments Test Results 11/21/2022 ECHO REPORT Encounter Details Date Type Department Care Team Description 11/21/2022 Telephone Family Medicine [address] [phone] Jessica Baugh PA-C [address] [place] [address] [place] [address] Test Results (ECHO REPORT) Allergies Active Allergy Reactions Severity Noted Date Comments Naproxen Sodium Bleeding High 12/03/2009 Hs of GI bleed Aspirin Bleeding High 12/03/2009 Doxycycline Neuro complications (Please comment) Medium 10/23/2010 Hallucinations Ibuprofen Bleeding High 12/03/2009 Hx of GI bleed Nitrofurantoin Monohydrate Macrocrystals Neuro complications (Please comment) Low 09/16/2009 Headaches Ugntldbf-Xcupusdol-Up 01/25/2011 Caused eye problems Neosporin 05/30/2003 rash [...] TABLET DAILY 1 Tab 0 04/27/2010 Active Fusion DynamicTOUCH ULTRASOFT LANCETS MISCIndications:DM type 2, goal A1c [...] FOR ITCHING 30 g 2 05/28/2020 Active [employer]orean [employer]armaTo[employer] Verio In Vitro Strip (Glucose Blood)Indications: Type 2 diabetes mellitus with hemoglobin A1c goal of less than 7.5% ([facility]) Use to test blood sugar once a day DX e11.9 100 Strip 3 05/14/2021 Active [employer] Verio Flex System w/Device KitIndications:Typ e 2 diabetes mellitus with hemoglobin A1c goal of less than 7.5% (HCC) Use as directed . Use to test blood sugar Dx e11.9 1 Kit 0 05/14/2021 Active [employer]FPay Ultra In Vitro Strip (Glucose Blood)Indications: Type 2 diabetes mellitus with hemoglobin A1c goal of less than 7.0% (HCC) USE TO TEST ONCE PER DAY 100 Strip 3 10/09/2021 Active Warfarin Sodium 2 MG Oral Tablet (Coumadin)Indicati ons:Atrial flutter, unspecified type (HCC),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,assisted current use of anticoagulant therapy,PAF (paroxysmal atrial [...] 180 Tablet 09/08/2022 Active OneTouch Delica Plus [id number] ns:Type 2 diabetes mellitus with hemoglobin A1c [...] encounter Miscellaneous Notes * Telephone Encounter - HaromnyMAGALI Evans - 11/29/2022 10:04 AM EDT Pt returning call please call her at [phone] * Telephone Encounter - Nina Kent CMA - 11/29/2022 9:58 AM EDT I called the patient and left a message to call [phone]. She should already be aware of the [...] 11/29/2022 Office Visit Pain Medicine Andrey Still, [address] [place] [address] 11/29/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 [place] [address] 11/30/2022 Nurse Only Nephrology [place], Nurse Nephrology [address] [place] [address] 12/08/2022 Office Visit Family Medicine Jessica Baugh PA-C [address] [place] [address] [place] [address] 01/19/2023 Office Visit Cardiology Cameron Becerra, PAJose FranciscoC [address] [place] [address] 02/03/2023 Office Visit Orthopedic Surgery Celso Zayas MD [address] [place] [id number] 02/24/2023 Office Visit Nephrology Radha Wyman PA-C [address] [place] [address] Health Maintenance Due Date Last Done Comments Zoster Vaccines (2 of 3) 08/02/2010 06/07/2010 Depression Screening 08/03/2021 08/03/2020 Diabetic Foot Exam 02/08/2023 02/08/2022, 0 05/28/2020, 05/17/2019, Additional history exists DIABETES-EYE EXAM 03/15/2023 03/15/2022, , 09/26/2019, Additional history exists HbA1c 05/17/2023 11/16/2022, 11/12, 04/28/2021, Additional history exists Albumin/Creatinine Ratio 11/17/2023 023, 03/29/2022, 01/06/2021, Additional history exists CKD HGB USE SMARTSET 72476 11/17/202311/16, 11/16/2022, 12/03/2021, Additional history exists CKD PHOS USE SMARTSET 24368 11/22/202311/11, 01/06/2021, 05/28/2020, Additional history exists DXA [...] filedocumented as of this encounter Care Teams Deicer Kit Assembler Relationship Specialty Start Date End Date Priyanka Falcon MD [address] [place] [address] [place] [address] PCP - General Family Medicine 01/04/19 documented as of this encounter
--- OUTSIDE RECORDS SUMMARY | 2023-02-21 00:34 | External Medical Summary | Summary of Care ---
Author Name Unknown Organization [facility] Address [address] [place] [address] Phone [phone] Care Team Providers Care Frame Stylist Name Role Phone Priyanka Falcon MD Primary Care Prov ider Reason for Visit * Reason Onset Date Comments Test Results 11/21/2022 ECHO REPORT Encounter Details Date Type Department Care Team Description 11/21/2022 Telephone Family Medicine [address] [phone] Jessica Baugh PA-C [address] [place] [address] [place] [address] Test Results (ECHO REPORT) Allergies Active Allergy Reactions Severity Noted Date Comments Naproxen Sodium Bleeding High 12/03/2009 Hs of GI bleed Aspirin Bleeding High 12/03/2009 Doxycycline Neuro complications (Please comment) Medium 10/23/2010 Hallucinations Ibuprofen Bleeding High 12/03/2009 Hx of GI bleed Nitrofurantoin Monohydrate Macrocrystals Neuro complications (Please comment) Low 09/16/2009 Headaches Xzbaicuk-Kukqlznir-Bv 01/25/2011 Caused eye problems Neosporin 05/30/2003 rash [...] TABLET DAILY 1 Tab 0 04/27/2010 Active Y[employer] ([place]) Information TechnologyTOUCH ULTRASOFT LANCETS MISCIndications:DM type 2, goal A1c [...] FOR ITCHING 30 g 2 05/28/2020 Active Precipio DiagnosticsToKids360 Verio In Vitro Strip (Glucose Blood)Indications: Type 2 diabetes mellitus with hemoglobin A1c goal of less than 7.5% ([facility]) Use to test blood sugar once a day DX e11.9 100 Strip 3 05/14/2021 Active [employer]recip[employer]To[employer]360 Verio Flex System w/Device KitIndications:Typ e 2 diabetes mellitus with hemoglobin A1c goal of less than 7.5% (HCC) Use as directed . Use to test blood sugar Dx e11.9 1 Kit 0 05/14/2021 Active Flypad Ultra In Vitro Strip (Glucose Blood)Indications: Type 2 diabetes mellitus with hemoglobin A1c goal of less than 7.0% (HCC) USE TO TEST ONCE PER DAY 100 Strip 3 10/09/2021 Active Warfarin Sodium 2 MG Oral Tablet (Coumadin)Indicati ons:Atrial flutter, unspecified type (HCC),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,longterm current use of anticoagulant therapy,PAF (paroxysmal atrial fibrillation) ([facility]) Take 4 mg (2 tablets) [...] 180 Tablet 09/08/2022 Active OneTouch Delica Plus [id number] ns:Type 2 diabetes mellitus with hemoglobin A1c [...] encounter Miscellaneous Notes * Telephone Encounter - HarmonyMAGALI Evans - 11/29/2022 10:04 AM EDT Pt returning call please call her at [phone] * Telephone Encounter - iNna Kent CMA - 11/29/2022 9:58 AM EDT I called the patient and left a message to call [phone]. She should already be aware of the [...] Andrey Still, [address] [place] [address] 11/29/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 [place] [address] 11/30/2022 Nurse Only Nephrology [place], Nurse Nephrology [address] [place] [address] 12/08/2022 Office Visit Family Medicine Jessica Baugh PA-C [address] [place] [address] [place] [address] 01/19/2023 Office Visit Cardiology Cameron Becerra, PAJose FranciscoC [address] [place] [address] 02/03/2023 Office Visit Orthopedic Surgery Celso Zayas MD [address] [place] [id number] 02/24/2023 Office Visit Nephrology Radha Wyman PA-C [address] [place] [address] Health Maintenance Due Date Last Done Comments Zoster Vaccines (2 of 3) 08/02/2010 06/07/2010 Depression Screening 08/03/2021 08/03/2020 Diabetic Foot Exam 02/08/2023 02/08/2022, 0 05/28/2020, 05/17/2019, Additional history exists DIABETES-EYE EXAM 03/15/2023 03/15/2022, , 09/26/2019, Additional history exists HbA1c 05/17/2023 11/16/2022, 11/12, 04/28/2021, Additional history exists Albumin/Creatinine Ratio 11/17/2023 023, 03/29/2022, 01/06/2021, Additional history exists CKD HGB USE SMARTSET 64222 11/17/202311/16, 11/16/2022, 12/03/2021, Additional history exists CKD PHOS USE SMARTSET 54343 11/22/202311/11, 01/06/2021, 05/28/2020, Additional history exists DXA [...] filedocumented as of this encounter Care Teams Frame Stylist Relationship Specialty Start Date End Date Priyanka Falcon MD [address] [place] [address] [place] [address] PCP - General Family Medicine 01/04/19 documented as of this encounter
--- OUTSIDE RECORDS SUMMARY | 2023-02-21 00:34 | External Medical Summary | Summary of Care ---
Author Name Unknown Organization [facility] Address [address] [place] [address] Phone [phone] Care Team Providers Care Filter Changer Name Role Phone Priyanka Falcon MD Primary Care Prov ider Reason for Visit * Reason Onset Date Comments Test Results 11/21/2022 ECHO REPORT Encounter Details Date Type Department Care Team Description 11/21/2022 Telephone Family Medicine [address] [phone] Jessica Baugh PA-C [address] [place] [address] [place] [address] Test Results (ECHO REPORT) Allergies Active Allergy Reactions Severity Noted Date Comments Naproxen Sodium Bleeding High 12/03/2009 Hs of GI bleed Aspirin Bleeding High 12/03/2009 Doxycycline Neuro complications (Please comment) Medium 10/23/2010 Hallucinations Ibuprofen Bleeding High 12/03/2009 Hx of GI bleed Nitrofurantoin Monohydrate Macrocrystals Neuro complications (Please comment) Low 09/16/2009 Headaches Jbmnlboe-Kzlvbpzpi-Gt 01/25/2011 Caused eye problems Neosporin 05/30/2003 rash [...] TABLET DAILY 1 Tab 0 04/27/2010 Active woojuTOUCH ULTRASOFT LANCETS MISCIndications:DM type 2, goal A1c [...] FOR ITCHING 30 g 2 05/28/2020 Active Fractal OnCall SolutionsToAristos Logic Verio In Vitro Strip (Glucose Blood)Indications: Type 2 diabetes mellitus with hemoglobin A1c goal of less than 7.5% ([facility]) Use to test blood sugar once a day DX e11.9 100 Strip 3 05/14/2021 Active [employer] SolutionsTo[employer]ristos Logic Verio Flex System w/Device KitIndications:Typ e 2 diabetes mellitus with hemoglobin A1c goal of less than 7.5% (HCC) Use as directed . Use to test blood sugar Dx e11.9 1 Kit 0 05/14/2021 Active [employer] Ultra In Vitro Strip (Glucose Blood)Indications: Type 2 diabetes mellitus with hemoglobin A1c goal of less than 7.0% (HCC) USE TO TEST ONCE PER DAY 100 Strip 3 10/09/2021 Active Warfarin Sodium 2 MG Oral Tablet (Coumadin)Indicati ons:Atrial flutter, unspecified type (HCC),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,group home current use of anticoagulant therapy,PAF (paroxysmal atrial fibrillation) ([facility]) Take 4 mg (2 [...] 180 Tablet 09/08/2022 Active OneTouch Delica Plus [id number] ns:Type 2 diabetes mellitus with hemoglobin A1c [...] encounter Miscellaneous Notes * Telephone Encounter - Diana Millan LPN - 11/29/2022 11:08 AM EDT Provider to address: Patient aware of the message below from Jessica and Dr. Becerra regarding the overnight oximetry to test blood oxygen overnight Patient wanted some time to think about this and stated that she would give us a call back. Reason for Call: Test Results (ECHO REPORT) Contact: Telephone Call Contact Type: Information Total Time including non face to face (minutes): 5 * Telephone Encounter - MAGALI Escalante - 11/29/2022 10:04 AM EDT Pt returning call please call her at [phone] * Telephone Encounter - Nina [place] CMA - 11/29/2022 9:58 AM EDT I called the patient and left a message to call [phone]. She should already be aware of the [...] Andrey Still, [address] [place] [address] 11/29/2022 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 Pharmacy [place] [address] [place] [address] 11/30/2022 Nurse Only Nephrology [place], Nurse Nephrology [address] [place] [address] 12/08/2022 Office Visit Family Medicine Jessica Baugh PAJesse [address] [place] [address] [place] [address] 01/19/2023 Office Visit Cardiology Cameron Becerra PA-C [address] [place] [address] 02/03/2023 Office Visit Orthopedic Surgery Celso Zayas MD [address] [place] [address] 02/24/2023 Office Visit Nephrology Radha Wyman PA-C [address] [place] [address] Health Maintenance Due Date Last Done Comments Zoster Vaccines (2 of 3) 08/02/2010 06/07/2010 Depression Screening 08/03/2021 08/03/2020 Diabetic Foot Exam 02/08/2023 02/08/2022, 0 05/28/2020, 05/17/2019, Additional history exists DIABETES-EYE EXAM 03/15/2023 03/15/2022, , 09/26/2019, Additional history exists HbA1c 05/17/2023 11/16/2022, 11/12, 04/28/2021, Additional history exists Albumin/Creatinine Ratio 11/17/2023 023, 03/29/2022, 01/06/2021, Additional history exists CKD HGB USE SMARTSET 13411 11/17/202311/16, 11/16/2022, 12/03/2021, Additional history exists CKD PHOS USE SMARTSET 58290 11/22/202311/11, 01/06/2021, 05/28/2020, Additional history exists DXA [...] filedocumented as of this encounter Care Teams Filter Changer Relationship Specialty Start Date End Date Priyanka Falcon MD [address] [place] [address] [place] [address] PCP - General Family Medicine 01/04/19 documented as of this encounter
--- OUTSIDE RECORDS SUMMARY | 2023-02-21 00:34 | External Medical Summary ---
Author Name Unknown Address Unknown Organization : Laboratory Report Ordering Provider Test Date Status ZURDO LUNA 11/29/2022 15:00:06 Final Therapeutic ranges for non-o perative patients:
Prophylaxsis/treatment of DVT: (Range:2.0-3.0)
Treatment of pulmonary embolism:(Range:2.0-3.0)
Prevention of systemic embolism from:
-tissue heart valves
-acute myocardial infarction
-valvular heart disease
-atrial fibrillation
(Range: 2.0-3.0)
Mechanical prosthetic valves: (Range: 2.5-3.5) Observation Date Value Abnormality Reference (Units ) Status INR in Capillary blood by Coagulation assay 11/29/2022 15:00:06 3.1 (INR) Final Performing Location
--- OUTSIDE RECORDS SUMMARY | 2023-02-21 00:34 | External Medical Summary | Summary of Care ---
Author Name Unknown Organization [facility] Address [address] [place] [address] Phone [phone] Care Team Providers Care Branch Account Manager Name Role Phone Priyanka Falcon MD Primary Care Prov ider Reason for Visit * Reason Comments Back Pain Neck Pain * Evaluate & Treat - Unlimited Visits (Within 30 days (routine)) - Authorized Specialty Diagnoses / Procedures Referred By Yuliet t Referred To Contact Pain Management / Pain Medicine Diagnoses Spinal stenosis of lumbar region, unspecified whether neurogenic claudication present Jessica Baugh PA-C [address] [place] [address] [place] [id number] Referral ID Status Reason Start Date Expiration Date Visits Requested Visits Authorized [id number] Authorized Specialty Services Required 11/16/2022 999 [id number] Encounter Details Date Type Department Care Team Description 11/29/2022 Office Visit [facility], [facility] [address] [place] [address] Cousins, Andrey Ten, [address] [place] [address] Spinal stenosis of lumbar region with neurogenic claudication* Allergies Active Allergy Reactions Severity Noted Date Comments Naproxen Sodium Bleeding High 12/03/2009 Hs of GI bleed Aspirin Bleeding High 12/03/2009 Doxycycline Neuro complications (Please comment) Medium 10/23/2010 Hallucinations Ibuprofen Bleeding High 12/03/2009 Hx of GI bleed Nitrofurantoin Monohydrate Macrocrystals Neuro complications (Please comment) Low 09/16/2009 Headaches Zqhfvvma-Lvcjxjnlh-Ni 01/25/2011 Caused eye problems Neosporin 05/30/2003 rash [...] TABLET DAILY 1 Tab 0 04/27/2010 Active SponsorHubTOUCH ULTRASOFT LANCETS MISCIndications:DM type 2, goal A1c [...] goal of less than 7.5% ([facility]) Use to test blood sugar once a day DX e11.9 100 Strip 3 05/14/2021 Active PolyGen PharmaceuticalsTouch Verio Flex System w/Device KitIndications:Typ e 2 diabetes mellitus with hemoglobin A1c goal of less than 7.5% ([facility]) Use as directed . Use to test blood sugar Dx e11.9 1 Kit 0 05/14/2021 Active PolyGen PharmaceuticalsTouch Ultra In Vitro Strip (Glucose Blood)Indications: Type 2 diabetes mellitus with hemoglobin A1c goal of less than 7.0% ([facility]) USE TO TEST ONCE PER DAY 100 Strip 3 10/09/2021 Active Warfarin Sodium 2 MG Oral Tablet (Coumadin)Indicati ons:Atrial flutter, unspecified type (HCC),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,terminal gauger current use of anticoagulant therapy,PAF (paroxysmal atrial [...] goal of less than 7.5% ([facility]) TAKE 1 TABLET BY MOUTH [...] goal of less than 7.5% ([facility]) TAKE 1 TABLET BY MOUTH TWICE A DAY WITH BREAKFAST AND SUPPER 180 Tablet 1 09/08/2022 Active OneTouch Delica Plus [id number] ns:Type 2 diabetes mellitus with hemoglobin A1c goal of less than 7.5% ([facility]) Use as directed. Use to [...] as of this encounter Progress Notes * Andrey Caal Cousins, DO - 11/29/2022 12:54 PM EDT Name: Cristine Beintez Date: 11/29/2022 HPI: Cristine Benitez is a 87 year old female seen in the pain management clinic for re- evaluation after I last saw her about year ago. At that time she was experiencing mostly left hip flexor weakness which did resolve with physical therapy. Painful symptomatology was minimal at that time although MRI of the lumbar spine had been obtained in did show high-grade spinal stenosis L3-4 and L4-L5. Patient now presents with her son indicating that there has been worsening in terms of back and lower extremity radicular pain with standing and ambulation. She is comfortable sitting or forward flexion against shopping cart or other item. Symptoms are worsened the right leg than left. There is no bowel bladderdysfunction or obvious motor weakness. She is interested in whether other treatment options may exist beyond the physical therapy that she completed. History: Past Medical History: Diagnosis Date AC APPEND W PERITONITIS 10/15/2010 Acute duodenal ulcer with hemorrhage 12/18 Atrial fibrillation (HCC) 12/18 Benign hypertensive kidney disease with chronic kidney disease stage I through stage IV, or unspecified(403.10) Breast cancer (HCC) 2005 left breast CA Chronic kidney disease (CKD) 10/27/2016 DM type 2 goal A1C below 7.5 06/23/2015 Essential hypertension with goal blood pressure less than 140/90 02/10/2016 Hemorrhoids, external without complications 09/17/2003 Iron deficiency anemia Kidney disease, chronic, stage III (GFR 30-59 ml/min) ([facility]) Low HDL (under 40) 12/25/2014 Mixed dyslipidemia Neoplasm of unspecified nature of breast 02/15 Ca in situ - left breast Other cataract 03/20 bilateral - moderate Panic disorder Personal history of malignant neoplasm of breast 02/08/2008 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 Starr COLONOSCOPY, DIAGNOSTIC (RECTUM) 02/16/2017 diverticulosis/COLONOSCOPY FLEXIBLE PROXIMAL DIAGNOSTIC performed by Scarlett Khan MD at ENDOSCOPY [facility] COLONOSCOPY, SURGICAL 05/24/06 Dr. Starr - normal EGD, FLEXIBLE, DIAGNOSTIC 12/25/07 duodenal ulcer with bleed EXTENSIVE REPAIR OF VAGINA N/A 07/01/2015 COMBINED ANTEROPOSTERIOR COLPORRHAPHY WITH ENTEROCELE REPAIR performed [place] Linh Chan [place] [facility] [place] INTERNAL W/ BANDING MRI L SPINE WO CONTRAST 12/25/07 mild bulg L3-4, multifactoral Central canal stenosis L4-5, small central disc herniation L5-S1 OTHER 1989' Left breast biopsy (benign) PARTIAL MASTECTOMY 02/27/2006 02/27/2006 Left breast - partial [place]aste[place] [facility] [place] St[place] REMOVAL OF APPENDIX 08/19/10 Appendectomy 08/19/2010 Dr. Joseph at [facility] REMOVAL OF OVARY/OVIDUCT(S) bilateral REMOVE CATARACT, INSERT LENS PROSTH 08/19/08 left eye - Dr. Hunter REMOVE CATARACT, INSERT LENS PROSTH 10/14/08 right eye REPAIR/REVISION OF PERINEUM N/A 07/01/2015 PERINEOPLASTY performed by Linh Chan MD [place] [facility] [place] A[place] HYSTERECTOMY W/WO REMOVAL OF TUBE(S) fibroids Current Outpatient Medications Medication Sig Dispense Refill ASPIRIN 81 MG PO TABS None Entered [facility] VITAMIN B12 1000 MCG PO TABS 1 TABLET DAILY 1 Tab 0 Cholecalciferol (VITAMIN D3) 1000 UNITS CAPS Take by mouth. Warfarin Sodium 2 MG Oral Tablet (Coumadin) Take 4 mg (2 tablets) on Wednesdays; Take 2 mg (1 tablet) all other days OR as directed by anticoagulation clinic 100 Tablet 3 Metoprolol Succinate ER 100 MG Oral Tablet Extended Release 24 Hour (toPROL XL) TAKE 1 TABLET BY MOUTH IN THE MORNING AND 1/2 TABLET DAILY AT BEDTIME 135 Tablet 3 glipiZIDE ER 2.5 MG Oral Tablet Extended Release 24 Hour (Glucotrol XL) TAKE 1 TABLET BY MOUTH DAILY 30 MINUTES BEFORE A MEAL 90 Tablet 1 amLODIPine Besylate 2.5 MG Oral Tablet (Norvasc) Take 1 Tablet by mouth in the morning. 90 Tablet 1 Lisinopril 20 MG Oral Tablet (Prinivil) TAKE 1 TABLET BY MOUTH EVERY DAY 90 Tablet 3 Docusate Sodium 100 MG Oral Capsule (Colace) TAKE 1 CAP BY MOUTH EVERY MORNING. CAN TAKE 1 CAP IN THE EVENING NEEDED 60 Capsule 5 metFORMIN HCl 500 MG Oral Tablet (Glucophage) TAKE 1 TABLET BY MOUTH TWICE A DAY WITH BREAKFAST ANDSUPPER 180 Tablet 1 Furosemide 40 MG Oral Tablet (Lasix) Take 1 Tablet by mouth in the morning. 30 Tablet 5 HYDROcodone-Acetaminophen 5-325 MG Oral Tablet Take 1 Tablet by mouth 2 times a day as needed for Pain, Severe. 30 Tablet 0 Atorvastatin Calcium 80 MG Oral Tablet (Lipitor) TAKE 1 TABLET BY MOUTH EVERY DAY IN THE MORNING 90Tablet 3 ONETOUCH ULTRASOFT LANCETS MISC TESTING TWICE A DAY DX:250.00 1 Box 11 polyethylene glycol 3350 (MIRALAX) 255 gram powder DISSOLVE 1 HEAPING TABLESPOON IN 8 OUNCES OF WATER OR JUICE DAILY NEEDED FOR CONSTIPATION 255 g 3 Triamcinolone Acetonide 0.1 % External Cream (Aristocort) APPLY TO THE AFFECTED AREA 2 TIMES A DAY NEEDED FOR ITCHING 30 g 2 OneTouch Verio In Vitro Strip (Glucose Blood) Use to test blood sugar once a day DX e11.9 100 Strip3 OneTouch Verio Flex System w/Device Kit Use as directed . Use to test blood sugar Dx e11.9 1 Kit 0 OneTouch Ultra In Vitro Strip (Glucose Blood) USE TO TEST ONCE PER DAY 100 Strip 3 Zoster Vac Recomb Adjuvanted 50 MCG/0.5ML Intramuscular Suspension Reconstituted (Shingrix) Inject 0.5 mL into a large muscle now and repeat dose in 60 to 180 days 1 Each 1 LORazepam 0.5 MG Oral Tablet (Ativan) TAKE 1 TABLET BY MOUTH TWICE A DAY NEEDED FOR ANXIETY 120 Tablet 1 OneTouch Delica Plus [id number] Use as directed. Use to test blood sugar once a day DX e11.9 100 Each 3 Gabapentin 100 MG Oral Capsule (Neurontin) Take 1 Capsule by mouth at bedtime. (Patient not taking:Reported on 11/29/2022) 30 Capsule 1 No current facility-administered medications for this visit. Review of patient's allergies indicates: Allergen Reactions Aleve [Naproxen Sodium] Bleeding Hs of GI bleed Aspirin Bleeding Ibuprofen Bleeding Hx of GI bleed Doxycycline Neuro complications (Please comment) Hallucinations Clucxjdu-Iigjcfqtr-Mf [Ugpgdtpo-Chmwttpow-Ki] Caused eye problems Neosporin rash Sulfa Antibiotics nausea & vomiting Tramadol Hcl Unknown Triamterene ulcers Macrobid [Nitrofurantoin Monohydrate Macrocrystals] Neuro complications (Please comment) Headaches Social History Tobacco Use Smoking Status Never Smokeless Tobacco Never Social History Substance and Sexual Activity Alcohol Use Not Currently Comment: occassional wine/beer PHYSICAL EXAM: There were no vitals taken for this visit. Can stand ambulate with use of a cane. She is +5 over 5 motor function lower extremities. There areno gross sensory deficits noted. She does not have trochanteric or sacroiliac joint tenderness. She does not have significant pain with range of motion testing of the hips. ASSESSMENT: Severe lumbar spinal stenosis with neurogenic claudication RECOMMENDATION: I think her symptoms do correlate with her underlying spinal stenosis and epidural steroid injection would be a reasonable consideration if it was acceptable for her to discontinue Coumadin for the procedure. I will forward a message to her biology specimen technician today regarding the Coumadin and once I get a response I will contact her regarding scheduling and coordinate with the coag clinic. The procedural risks including bleeding, infection, headache, nerve or spinal cord injury, worsening pain or steroid side effects were reviewed with the patient and her son and accepted. Andrey Still DO 11/29/2022 12:54 PM I spent a total of 20-29 minutes (exact time 23 mins) on the date of service in preparation, delivery, and documentation of the care provided to Cristine Benitez excluding any time spent in the performance of separately billed services. documented in this encounter Nursing Notes * Stacey Cardozo LPN - 11/29/2022 12:36 PM EDT Patient presents with low back and b/l lower ext pain Patient not sure that she is still taking Gabapentin Currently using Hydrocodone-has a few left documented in this encounter Plan of Treatment Upcoming Encounters Date Type Specialty Care Team Description 11/29/2022 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 Pharmacy [place] [address] [place] [address] 11/30/2022 Nurse Only Nephrology [place], Nurse Nephrology [address] [place] [address] 12/08/2022 Office Visit Family Medicine Jessica Baugh PA-C [address] [place] [address] [place] [address] 01/19/2023 Office Visit Cardiology Cameron Becerra PA-C [address] [place] [address] 02/03/2023 Office Visit Orthopedic Surgery Celso Zayas MD [address] [place] [address] 02/24/2023 Office Visit [facility] [address] Scheduled Referrals Name Type Priority Associated Diagnoses Orde r Schedule PAIN MEDICINE REFERRAL OP Referral Within 30 days (routine) Spinal stenosis of lumbar region, unspecified whether neurogenic claudication present Ordered: 11/16/2022 Health Maintenance Due Date Last Done Comments Zoster Vaccines (2 of 3) 08/02/2010 06/07/2010 Depression Screening 08/03/2021 08/03/2020 Diabetic Foot Exam 02/08/2023 02/08/2022, 0 05/28/2020, 05/17/2019, Additional history exists DIABETES-EYE EXAM 03/15/2023 03/15/2022, , 09/26/2019, Additional history exists HbA1c 05/17/2023 11/16/2022, 11/12, 04/28/2021, Additional history exists Albumin/Creatinine Ratio 11/17/2023 023, 03/29/2022, 01/06/2021, Additional history exists CKD HGB USE SMARTSET 29190 11/17/202311/16, 11/16/2022, 12/03/2021, Additional history exists CKD PHOS USE SMARTSET 45051 11/22/202311/11, 01/06/2021, 05/28/2020, Additional history exists DXA [...] claudication documented in this encounter Care Teams Branch Account Manager Relationship Specialty Start Date End Date Priyanka Falcon MD [address] [place] [address] [place] [address] PCP - General Family Medicine 01/04/19 documented as of this encounter
--- OUTSIDE RECORDS SUMMARY | 2023-02-21 00:35 | External Medical Summary | Summary of Care ---
Author Name Unknown Organization [facility] Address [address] [place] [address] Phone [phone] Care Team Providers Care Shagger Name Role Phone Priyanka Falcon MD Primary Care Prov ider Reason for Visit * Reason Onset Date Comments Test Results 11/21/2022 ECHO REPORT Encounter Details Date Type Department Care Team Description 11/21/2022 Telephone Family Medicine [address] [address] Jessica Baugh PA-C [address] [place] [address] [place] [address] Test Results (ECHO REPORT) Allergies Active Allergy Reactions Severity Noted Date Comments Naproxen Sodium Bleeding High 12/03/2009 Hs of GI bleed Aspirin Bleeding High 12/03/2009 Doxycycline Neuro complications (Please comment) Medium 10/23/2010 Hallucinations Ibuprofen Bleeding High 12/03/2009 Hx of GI bleed Nitrofurantoin Monohydrate Macrocrystals Neuro complications (Please comment) Low 09/16/2009 Headaches Lupvjwha-Hcfhvpmuc-Ew 01/25/2011 Caused eye problems Neosporin 05/30/2003 rash Sulfa Antibiotics 05/11/2002 nausea & vomiting Tramadol Hcl Unknown 12/03/2009 Triamterene 11/16/2022 ulcers documented as of this encounter (statuses as of 11/22/2022) Medications Medication Sig Dispensed Refills Start Date End Date Status ASPIRIN 81 MG PO TABS None Entered 0 Active [facility] VITAMIN B12 1000 MCG PO TABSIndications:Vi tamin B deficiency 1 TABLET DAILY 1 Tab 0 04/27/2010 Active Cape CommonsTOUCH ULTRASOFT LANCETS MISCIndications:DM type 2, goal A1c [...] FOR ITCHING 30 g 2 05/28/2020 Active P&R LabpakToPensqr Verio In Vitro Strip (Glucose Blood)Indications: Type 2 diabetes mellitus with hemoglobin A1c goal of less than 7.5% ([facility]) Use to test blood sugar once a day DX e11.9 100 Strip 3 05/14/2021 Active P&R LabpakToPensqr Verio Flex System w/Device KitIndications:Typ e 2 diabetes mellitus with hemoglobin A1c goal of less than 7.5% (HCC) Use as directed . Use to test blood sugar Dx e11.9 1 Kit 0 05/14/2021 Active Tower Paddle [employer]ards Ultra In Vitro Strip (Glucose Blood)Indications: Type 2 diabetes mellitus with hemoglobin A1c goal of less than 7.0% (HCC) USE TO TEST ONCE PER DAY 100 Strip 3 10/09/2021 Active Warfarin Sodium 2 MG Oral Tablet (Coumadin)Indicati ons:Atrial flutter, unspecified type (HCC),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,group home current use of anticoagulant therapy,PAF (paroxysmal atrial fibrillation) ([facility]) Take 4 mg (2 tablets) [...] 180 Tablet 09/08/2022 Active OneTouch Delica Plus [id number] ns:Type 2 diabetes mellitus with hemoglobin A1c [...] the morning. 30 Tablet 5 11/17/2022 Active Cephalexin 500 MG Oral Capsule (Keflex) Take 1 Capsule by mouth in the morning and 1 Capsule before bedtime. Do all this for 5 days. 10 Capsule 0 11/17/2022 3 Active HYDROcodone-Acetam inophen 5-325 MG Oral TabletIndications: [...] as of this encounter (statuses as of 11/22/2022) Active Problems Problem Noted Date Typical atrial [...] as of this encounter (statuses as of 11/22/2022) Resolved Problems Problem Noted Date Resolved Date [...] as of this encounter (statuses as of 11/22/2022) Immunizations Name Administration Dates Next Due COVID-19 [...] encounter Miscellaneous Notes * Telephone Encounter - Lesia Gonzalez RN [...] Description 11/29/2022 Office Visit Pain Medicine Andrey Still DO [address] [place] [address] 11/29/2022 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 Pharmacy [place], [address] [place] [address] 11/30/2022 Nurse Only Nephrology [place], Nurse Nephrology [address] [place] [address] 12/08/2022 Office Visit Family Medicine Jessica Baugh PA-C [address] [place] [address] [place] [address] 01/19/2023 Office Visit Cardiology Cameron Becerra PA-C [address] [place] [address] 02/03/2023 Office Visit Orthopedic Surgery Celso Zayas MD [address] [place] [address] 02/24/2023 Office Visit Nephrology Radha Wyman PA-C [facility] [place] [address] Health Maintenance Due Date Last Done Comments Zoster Vaccines (2 of 3) 08/02/2010 06/07/2010 Depression Screening 08/03/2021 08/03/2020 Diabetic Foot Exam 02/08/2023 02/08/2022, 0 05/28/2020, 05/17/2019, Additional history exists DIABETES-EYE EXAM 03/15/2023 03/15/2022, , 09/26/2019, Additional history exists HbA1c 05/17/2023 11/16/2022, 11/12, 04/28/2021, Additional history exists Albumin/Creatinine Ratio 11/17/2023 023, 03/29/2022, 01/06/2021, Additional history exists CKD HGB USE SMARTSET 60873 11/17/202311/16, 11/16/2022, 12/03/2021, Additional history exists CKD PHOS USE SMARTSET 24253 11/22/202311/11, 01/06/2021, 05/28/2020, Additional history exists DXA [...] filedocumented as of this encounter Care Teams Shagger Relationship Specialty Start Date End Date Priyanka Falcon MD [address] [place] [address] [place] [address] PCP - General Family Medicine 01/04/19 documented as of this encounter
--- OUTSIDE RECORDS SUMMARY | 2023-02-21 00:35 | External Medical Summary | Summary of Care ---
Author Name Unknown Organization [facility] Address [address] [place] [address] Phone [phone] Care Team Providers Care General Administrator Name Role Phone Priyanka Falcon MD Primary Care Prov ider Reason for Visit * Reason Onset Date Comments Test Results 11/21/2022 ECHO REPORT Encounter Details Date Type Department Care Team Description 11/21/2022 Telephone Family Medicine [address] [address] Jessica Baugh PA-C [address] [place] [address] [place] [address] Test Results (ECHO REPORT) Allergies Active Allergy Reactions Severity Noted Date Comments Naproxen Sodium Bleeding High 12/03/2009 Hs of GI bleed Aspirin Bleeding High 12/03/2009 Doxycycline Neuro complications (Please comment) Medium 10/23/2010 Hallucinations Ibuprofen Bleeding High 12/03/2009 Hx of GI bleed Nitrofurantoin Monohydrate Macrocrystals Neuro complications (Please comment) Low 09/16/2009 Headaches Fnolhrzl-Idnipiowd-Vw 01/25/2011 Caused eye problems Neosporin 05/30/2003 rash Sulfa Antibiotics 05/11/2002 nausea & vomiting Tramadol Hcl Unknown 12/03/2009 Triamterene 11/16/2022 ulcers documented as of this encounter (statuses as of 11/23/2022) Medications Medication Sig Dispensed Refills Start Date End Date Status ASPIRIN 81 MG PO TABS None Entered 0 Active [facility] VITAMIN B12 1000 MCG PO TABSIndications:Vi tamin B deficiency 1 TABLET DAILY 1 Tab 0 04/27/2010 Active Surefire SocialTOUCH ULTRASOFT LANCETS MISCIndications:DM type 2, goal A1c [...] FOR ITCHING 30 g 2 05/28/2020 Active PlusmoToLeanplum Verio In Vitro Strip (Glucose Blood)Indications: Type 2 diabetes mellitus with hemoglobin A1c goal of less than 7.5% ([facility]) Use to test blood sugar once a day DX e11.9 100 Strip 3 05/14/2021 Active PlusmoToLeanplum Verio Flex System w/Device KitIndications:Typ e 2 diabetes mellitus with hemoglobin A1c goal of less than 7.5% (HCC) Use as directed . Use to test blood sugar Dx e11.9 1 Kit 0 05/14/2021 Active Websupport Ultra In Vitro Strip (Glucose Blood)Indications: Type 2 diabetes mellitus with hemoglobin A1c goal of less than 7.0% (HCC) USE TO TEST ONCE PER DAY 100 Strip 3 10/09/2021 Active Warfarin Sodium 2 MG Oral Tablet (Coumadin)Indicati ons:Atrial flutter, unspecified type (HCC),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,assisted current use of anticoagulant therapy,PAF (paroxysmal atrial fibrillation) ([facility]) Take 4 mg (2 tablets) [...] 180 Tablet 09/08/2022 Active OneTouch Delica Plus [id number] ns:Type 2 diabetes mellitus with hemoglobin A1c [...] as of this encounter (statuses as of 11/23/2022) Active Problems Problem Noted Date Typical atrial [...] as of this encounter (statuses as of 11/23/2022) Resolved Problems Problem Noted Date Resolved Date [...] as of this encounter (statuses as of 11/23/2022) Immunizations Name Administration Dates Next Due COVID-19 [...] encounter Miscellaneous Notes * Telephone Encounter - Romi Zelaya CMA [...] Still, DO [address] [place] [address] 11/29/2022 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 Pharmacy [place], [facility] [address] [place] [address] 11/30/2022 Nurse Only Nephrology [place], Nurse Nephrology [address] [place] [address] 12/08/2022 Office Visit Family Medicine Jessica Baugh PA-C [address] [place] [address] [place] [address] 01/19/2023 Office Visit Cardiology Cameron Becerra PA-C [address] [place] [address] 02/03/2023 Office Visit Orthopedic Surgery Celso Zayas MD [address] [place] [address] 02/24/2023 Office Visit Nephrology Radha [facility]-C [address] [facility] [address] Health Maintenance Due Date Last Done Comments Zoster Vaccines (2 of 3) 08/02/2010 06/07/2010 Depression Screening 08/03/2021 08/03/2020 Diabetic Foot Exam 02/08/2023 02/08/2022, 0 05/28/2020, 05/17/2019, Additional history exists DIABETES-EYE EXAM 03/15/2023 03/15/2022, , 09/26/2019, Additional history exists HbA1c 05/17/2023 11/16/2022, 11/12, 04/28/2021, Additional history exists Albumin/Creatinine Ratio 11/17/2023 023, 03/29/2022, 01/06/2021, Additional history exists CKD HGB USE SMARTSET 12543 11/17/202311/16, 11/16/2022, 12/03/2021, Additional history exists CKD PHOS USE SMARTSET 27376 11/22/202311/11, 01/06/2021, 05/28/2020, Additional history exists DXA [...] filedocumented as of this encounter Care Teams General Administrator Relationship Specialty Start Date End Date Priyanka Falcon MD [address] [place] [address] [place] [address] PCP - General Family Medicine 01/04/19 documented as of this encounter
--- OUTSIDE RECORDS SUMMARY | 2023-02-21 00:35 | External Medical Summary | Summary of Care ---
Author Name Unknown Organization [facility] Address [address] [place] [address] Phone [phone] Care Team Providers Care Smog Technician Name Role Phone Priyanka Falcon MD Primary Care Prov ider Reason for Visit * Reason Onset Date Comments Test Results 11/21/2022 ECHO REPORT Encounter Details Date Type Department Care Team Description 11/21/2022 Telephone Family Medicine [address] [address] Jessica Baugh PA-C [address] [place] [address] [place] [address] Test Results (ECHO REPORT) Allergies Active Allergy Reactions Severity Noted Date Comments Naproxen Sodium Bleeding High 12/03/2009 Hs of GI bleed Aspirin Bleeding High 12/03/2009 Doxycycline Neuro complications (Please comment) Medium 10/23/2010 Hallucinations Ibuprofen Bleeding High 12/03/2009 Hx of GI bleed Nitrofurantoin Monohydrate Macrocrystals Neuro complications (Please comment) Low 09/16/2009 Headaches Ggjfmvca-Hbmxmupiu-Ax 01/25/2011 Caused eye problems Neosporin 05/30/2003 rash [...] TABLET DAILY 1 Tab 0 04/27/2010 Active YourPOV.TVTOUCH ULTRASOFT LANCETS MISCIndications:DM type 2, goal A1c [...] FOR ITCHING 30 g 2 05/28/2020 Active ShoefitrToTop Hat Verio In Vitro Strip (Glucose Blood)Indications: Type 2 diabetes mellitus with hemoglobin A1c goal of less than 7.5% ([facility]) Use to test blood sugar once a day DX e11.9 100 Strip 3 05/14/2021 Active ShoefitrToTop Hat Verio Flex System w/Device KitIndications:Typ e 2 diabetes mellitus with hemoglobin A1c goal of less than 7.5% (HCC) Use as directed . Use to test blood sugar Dx e11.9 1 Kit 0 05/14/2021 Active HeTexted Ultra In Vitro Strip (Glucose Blood)Indications: Type 2 diabetes mellitus with hemoglobin A1c goal of less than 7.0% (HCC) USE TO TEST ONCE PER DAY 100 Strip 3 10/09/2021 Active Warfarin Sodium 2 MG Oral Tablet (Coumadin)Indicati ons:Atrial flutter, unspecified type (HCC),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,longterm current use of anticoagulant therapy,PAF (paroxysmal atrial fibrillation) ([facility]) Take 4 mg (2 tablets) on [...] 180 Tablet 09/08/2022 Active OneTouch Delica Plus [id number] ns:Type 2 diabetes mellitus with hemoglobin A1c [...] encounter Miscellaneous Notes * Telephone Encounter - Cameron Becerra PA-C [...] Pain Medicine Andrey Still DO [address] [place] [address] 11/29/2022 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 Pharmacy [place], [facility] [address] [place] [address] 11/30/2022 Nurse Only Nephrology [facility] Nurse Nephrology [address] [place] [address] 12/08/2022 Office Visit Family Medicine Jessica Baugh PA-C [address] [place] [address] [place] [address] 01/19/2023 Office Visit Cardiology Cameron Becerra PA-C [address] [place] [address] 02/03/2023 Office Visit Orthopedic Surgery Celso Zayas MD [address] [place] [phone] 02/24/2023 Office Visit Nephrology Radha Wyman PA-C [address] [place] [address] Health Maintenance Due Date Last Done Comments Zoster Vaccines (2 of 3) 08/02/2010 06/07/2010 Depression Screening 08/03/2021 08/03/2020 Diabetic Foot Exam 02/08/2023 02/08/2022, 0 05/28/2020, 05/17/2019, Additional history exists DIABETES-EYE EXAM 03/15/2023 03/15/2022, , 09/26/2019, Additional history exists HbA1c 05/17/2023 11/16/2022, 11/12, 04/28/2021, Additional history exists Albumin/Creatinine Ratio 11/17/2023 023, 03/29/2022, 01/06/2021, Additional history exists CKD HGB USE SMARTSET 24478 11/17/202311/16, 11/16/2022, 12/03/2021, Additional history exists CKD PHOS USE SMARTSET 63250 11/22/202311/11, 01/06/2021, 05/28/2020, Additional history exists DXA [...] filedocumented as of this encounter Care Teams Smog Technician Relationship Specialty Start Date End Date Priyanka Falcon MD [address] [place] [address] [place] [address] PCP - General Family Medicine 01/04/19 documented as of this encounter
--- OUTSIDE RECORDS SUMMARY | 2023-02-21 00:35 | External Medical Summary | Summary of Care ---
Author Name Unknown Organization [facility] Address [address] [place] [address] Phone [phone] Care Team Providers Care Small Battery Plate Assembler Name Role Phone Priyanka Falcon MD Primary Care Prov ider Reason for Visit * Reason Onset Date Comments Test Results 11/21/2022 ECHO REPORT Encounter Details Date Type Department Care Team Description 11/21/2022 Telephone Family Medicine [address] [address] Jessica Baugh PA-C [address] [place] [address] [place] [address] Test Results (ECHO REPORT) Allergies Active Allergy Reactions Severity Noted Date Comments Naproxen Sodium Bleeding High 12/03/2009 Hs of GI bleed Aspirin Bleeding High 12/03/2009 Doxycycline Neuro complications (Please comment) Medium 10/23/2010 Hallucinations Ibuprofen Bleeding High 12/03/2009 Hx of GI bleed Nitrofurantoin Monohydrate Macrocrystals Neuro complications (Please comment) Low 09/16/2009 Headaches Mpvmfpse-Yuhepxvbg-Mf 01/25/2011 Caused eye problems Neosporin 05/30/2003 rash [...] TABLET DAILY 1 Tab 0 04/27/2010 Active BitWallTOUCH ULTRASOFT LANCETS MISCIndications:DM type 2, goal A1c [...] FOR ITCHING 30 g 2 05/28/2020 Active [employer]To[employer] Verio In Vitro Strip (Glucose Blood)Indications: Type 2 diabetes mellitus with hemoglobin A1c goal of less than 7.5% ([facility]) Use to test blood sugar once a day DX e11.9 100 Strip 3 05/14/2021 Active [employer] Verio Flex System w/Device KitIndications:Typ e 2 diabetes mellitus with hemoglobin A1c goal of less than 7.5% (HCC) Use as directed . Use to test blood sugar Dx e11.9 1 Kit 0 05/14/2021 Active Nokori Ultra In Vitro Strip (Glucose Blood)Indications: Type 2 diabetes mellitus with hemoglobin A1c goal of less than 7.0% (HCC) USE TO TEST ONCE PER DAY 100 Strip 3 10/09/2021 Active Warfarin Sodium 2 MG Oral Tablet (Coumadin)Indicati ons:Atrial flutter, unspecified type (HCC),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,[facility] current use of anticoagulant therapy,PAF (paroxysmal atrial fibrillation) ([facility]) Take 4 mg (2 tablets) on Wednesdays; [...] 180 Tablet 09/08/2022 Active OneTouch Delica Plus [id number] ns:Type 2 diabetes mellitus with hemoglobin A1c [...] Still DO [address] [place] [address] 11/29/2022 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 Pharmacy [place], [facility] [address] [place] [address] 11/30/2022 Nurse Only Nephrology [facility] Nurse Nephrology [address] [place] [address] 12/08/2022 Office Visit Family Medicine Jessica Baugh PA-C [address] [place] [address] [place] [address] 01/19/2023 Office Visit Cardiology Cameron Becerra PA-C [address] [place] [address] 02/03/2023 Office Visit Orthopedic Surgery Celso Zayas MD [address] [place] [phone] 02/24/2023 Office Visit Nephrology Radha Wyman PA-C [address] [place] [address] Health Maintenance Due Date Last Done Comments Zoster Vaccines (2 of 3) 08/02/2010 06/07/2010 Depression Screening 08/03/2021 08/03/2020 Diabetic Foot Exam 02/08/2023 02/08/2022, 0 05/28/2020, 05/17/2019, Additional history exists DIABETES-EYE EXAM 03/15/2023 03/15/2022, , 09/26/2019, Additional history exists HbA1c 05/17/2023 11/16/2022, 11/12, 04/28/2021, Additional history exists Albumin/Creatinine Ratio 11/17/2023 023, 03/29/2022, 01/06/2021, Additional history exists CKD HGB USE SMARTSET 96470 11/17/202311/16, 11/16/2022, 12/03/2021, Additional history exists CKD PHOS USE SMARTSET 77040 11/22/202311/11, 01/06/2021, 05/28/2020, Additional history exists DXA [...] filedocumented as of this encounter Care Teams Small Battery Plate Assembler Relationship Specialty Start Date End Date Priyanka Falcon MD [address] [place] [address] [place] [address] PCP - General Family Medicine 01/04/19 documented as of this encounter
--- OUTSIDE RECORDS SUMMARY | 2023-02-21 00:35 | External Medical Summary | Summary of Care ---
Author Name Unknown Organization [facility] Address [address] [place] [address] Phone [phone] Care Team Providers Care Head Porter Baggage Name Role Phone Priyanka Falcon MD Primary Care Prov ider Reason for Visit * Reason Onset Date Comments Test Results 11/23/2022 Encounter Details Date Type Department Care Team Description 11/23/[address] [address] Priyanka Falcon MD [address] [place] [address] Test Results Allergies Active Allergy Reactions Severity Noted Date Comments Naproxen Sodium Bleeding High 12/03/2009 Hs of GI bleed Aspirin Bleeding High 12/03/2009 Doxycycline Neuro complications (Please comment) Medium 10/23/2010 Hallucinations Ibuprofen Bleeding High 12/03/2009 Hx of GI bleed Nitrofurantoin Monohydrate Macrocrystals Neuro complications (Please comment) Low 09/16/2009 Headaches Ugdxopfl-Pkqlgtguh-Tl 01/25/2011 Caused eye problems Neosporin 05/30/2003 rash [...] TABLET DAILY 1 Tab 0 04/27/2010 Active KriyariTOUCH ULTRASOFT LANCETS MISCIndications:DM type 2, goal A1c [...] hemoglobin A1c goal of less than 7.5% ([facility]) Use to test blood sugar once a day DX e11.9 100 Strip 3 05/14/2021 Active CircleUpTouch Verio Flex System w/Device KitIndications:Typ e 2 diabetes mellitus with hemoglobin A1c goal of less than 7.5% (HCC) Use as directed . Use to test blood sugar Dx e11.9 1 Kit 0 05/14/2021 Active GotaCopyuch Ultra In Vitro Strip (Glucose Blood)Indications: Type 2 diabetes mellitus with hemoglobin A1c goal of less than 7.0% (HCC) USE TO TEST ONCE PER DAY 100 Strip 3 10/09/2021 Active Warfarin Sodium 2 MG Oral Tablet (Coumadin)Indicati ons:Atrial flutter, unspecified type ([facility]),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,residential current use of anticoagulant therapy,PAF (paroxysmal atrial fibrillation) ([facility]) Take 4 mg (2 tablets) on Wednesdays; [...] 30 MINUTES BEFORE A MEAL 90 Tablet 06/24/2022 Active amLODIPine Besylate 2.5 MG Oral Tablet (Norvasc) Take 1 Tablet by mouth in the morning. 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 I'm going to send a message to [facility] to see if they need to see her sooner than January. Thanks documented in this encounter Plan of Treatment Upcoming Encounters Date Type Specialty Care Team Description 11/29/2022 Office Visit Pain Medicine Andrey Still DO [address] [place] [phone] 11/29/2022 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 Pharmacy [address] [place] [address] 11/30/2022 Nurse Only Nephrology [facility] Nurse Nephrology [address] [place] [address] 12/08/2022 Office Visit Family Medicine Jessica Baugh PA-C [address] [place] [address] [place] [address] 01/19/2023 Office Visit Cardiology Cameron Becerra PA-C [address] [place] [address] 02/03/2023 Office Visit Orthopedic Surgery Celso Zayas MD [address] [place] [address] 02/24/2023 Office Visit Nephrology Radha Wyman [facility]-C [address] [facility] [place] [address] Health Maintenance Due Date Last Done Comments Zoster Vaccines (2 of 3) 08/02/2010 06/07/2010 Depression Screening 08/03/2021 08/03/2020 Diabetic Foot Exam 02/08/2023 02/08/2022, 0 05/28/2020, 05/17/2019, Additional history exists DIABETES-EYE EXAM 03/15/2023 03/15/2022, , 09/26/2019, Additional history exists HbA1c 05/17/2023 11/16/2022, 11/12, 04/28/2021, Additional history exists Albumin/Creatinine Ratio 11/17/2023 023, 03/29/2022, 01/06/2021, Additional history exists CKD HGB USE SMARTSET 51277 11/17/202311/16, 11/16/2022, 12/03/2021, Additional history exists CKD PHOS USE SMARTSET 23897 11/22/202311/11, 01/06/2021, 05/28/2020, Additional history exists DXA [...] as of this encounter Care Teams Head Porter Baggage Relationship Specialty Start Date End Date Priyanka Falcon MD [address] [place] [address] [place] [phone] PCP - General Family Medicine 01/04/19 documented as of this encounter
--- OUTSIDE RECORDS SUMMARY | 2023-02-21 00:35 | External Medical Summary | Summary of Care ---
Author Name Unknown Organization [facility] Address [address] [place] [address] Phone [phone] Care Team Providers Care Policy Service Coordinator Name Role Phone Priyanka Falcon MD Primary Care Prov ider Reason for Visit * Reason Onset Date Comments Test Results 11/21/2022 ECHO REPORT Encounter Details Date Type Department Care Team Description 11/21/2022 Telephone Family Medicine [address] [phone] Jessica Baugh PA-C [address] [place] [address] [place] [address] Test Results (ECHO REPORT) Allergies Active Allergy Reactions Severity Noted Date Comments Naproxen Sodium Bleeding High 12/03/2009 Hs of GI bleed Aspirin Bleeding High 12/03/2009 Doxycycline Neuro complications (Please comment) Medium 10/23/2010 Hallucinations Ibuprofen Bleeding High 12/03/2009 Hx of GI bleed Nitrofurantoin Monohydrate Macrocrystals Neuro complications (Please comment) Low 09/16/2009 Headaches Evwptwfr-Prvcxyvdw-Bm 01/25/2011 Caused eye problems Neosporin 05/30/2003 rash [...] TABLET DAILY 1 Tab 0 04/27/2010 Active [employer] GroupTOUCH ULTRASOFT LANCETS MISCIndications:DM type 2, goal A1c [...] FOR ITCHING 30 g 2 05/28/2020 Active [employer] Verio In Vitro Strip (Glucose Blood)Indications: Type 2 diabetes mellitus with hemoglobin A1c goal of less than 7.5% ([facility]) Use to test blood sugar once a day DX e11.9 100 Strip 3 05/14/2021 Active [employer] Verio Flex System w/Device KitIndications:Typ e 2 diabetes mellitus with hemoglobin A1c goal of less than 7.5% (HCC) Use as directed . Use to test blood sugar Dx e11.9 1 Kit 0 05/14/2021 Active [employer] Ultra In Vitro Strip (Glucose Blood)Indications: Type 2 diabetes mellitus with hemoglobin A1c goal of less than 7.0% (HCC) USE TO TEST ONCE PER DAY 100 Strip 3 10/09/2021 Active Warfarin Sodium 2 MG Oral Tablet (Coumadin)Indicati ons:Atrial flutter, unspecified type (HCC),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,FCI current use of anticoagulant therapy,PAF (paroxysmal atrial fibrillation) ([facility]) Take 4 mg (2 tablets) on [...] 180 Tablet 09/08/2022 Active OneTouch Delica Plus [id number] ns:Type 2 diabetes mellitus with hemoglobin A1c [...] Andrey Still DO [address] [place] [address] 11/29/2022 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 Pharmacy [place], [address] [place] [address] 11/30/2022 Nurse Only Nephrology [place], Nurse Nephrology [address] [place] [address] 12/08/2022 Office Visit Family Medicine Jessica Baugh PA-C [address] [place] [address] [place] [address] 01/19/2023 Office Visit Cardiology Cameron Becerra PA-C [address] [place] [address] 02/03/2023 Office Visit Orthopedic Surgery Celso Zayas MD [address] [place] [address] 02/24/2023 Office Visit Nephrology Radha Wyman [facility]-C [facility] [place] [address] Health Maintenance Due Date Last Done Comments Zoster Vaccines (2 of 3) 08/02/2010 06/07/2010 Depression Screening 08/03/2021 08/03/2020 Diabetic Foot Exam 02/08/2023 02/08/2022, 0 05/28/2020, 05/17/2019, Additional history exists DIABETES-EYE EXAM 03/15/2023 03/15/2022, , 09/26/2019, Additional history exists HbA1c 05/17/2023 11/16/2022, 11/12, 04/28/2021, Additional history exists Albumin/Creatinine Ratio 11/17/2023 023, 03/29/2022, 01/06/2021, Additional history exists CKD HGB USE SMARTSET 11001 11/17/202311/16, 11/16/2022, 12/03/2021, Additional history exists CKD PHOS USE SMARTSET 27008 11/22/202311/11, 01/06/2021, 05/28/2020, Additional history exists DXA [...] filedocumented as of this encounter Care Teams Policy Service Coordinator Relationship Specialty Start Date End Date Priyanka Falcon MD [address] [place] [address] [place] [address] PCP - General Family Medicine 01/04/19 documented as of this encounter
--- OUTSIDE RECORDS SUMMARY | 2023-02-21 00:35 | External Medical Summary | Summary of Care ---
Author Name Unknown Organization [facility] Address [address] [place] [address] Phone [phone] Care Team Providers Care Warehouse Distribution Associate Name Role Phone Priyanka Falcon MD Primary Care Prov ider Reason for Visit * Reason Onset Date Comments Test Results 11/21/2022 ECHO REPORT Encounter Details Date Type Department Care Team Description 11/21/2022 Telephone Family Medicine [address] [phone] Jessica Baugh PA-C [address] [place] [address] [place] [address] Test Results (ECHO REPORT) Allergies Active Allergy Reactions Severity Noted Date Comments Naproxen Sodium Bleeding High 12/03/2009 Hs of GI bleed Aspirin Bleeding High 12/03/2009 Doxycycline Neuro complications (Please comment) Medium 10/23/2010 Hallucinations Ibuprofen Bleeding High 12/03/2009 Hx of GI bleed Nitrofurantoin Monohydrate Macrocrystals Neuro complications (Please comment) Low 09/16/2009 Headaches Wpkvsfug-Hobylevpy-Lw 01/25/2011 Caused eye problems Neosporin 05/30/2003 rash Sulfa Antibiotics 05/11/2002 nausea & vomiting Tramadol Hcl Unknown 12/03/2009 Triamterene 11/16/2022 ulcers documented as of this encounter (statuses as of 11/25/2022) Medications Medication Sig Dispensed Refills Start Date End Date Status ASPIRIN 81 MG PO TABS None Entered 0 Active [facility] VITAMIN B12 1000 MCG PO TABSIndications:Vi tamin B deficiency 1 TABLET DAILY 1 Tab 0 04/27/2010 Active [employer]insicTOUCH ULTRASOFT LANCETS MISCIndications:DM type 2, goal A1c [...] FOR ITCHING 30 g 2 05/28/2020 Active [employer] Verio In Vitro Strip (Glucose Blood)Indications: Type 2 diabetes mellitus with hemoglobin A1c goal of less than 7.5% ([facility]) Use to test blood sugar once a day DX e11.9 100 Strip 3 05/14/2021 Active [employer] Verio Flex System w/Device KitIndications:Typ e 2 diabetes mellitus with hemoglobin A1c goal of less than 7.5% (HCC) Use as directed . Use to test blood sugar Dx e11.9 1 Kit 0 05/14/2021 Active [employer] Ultra In Vitro Strip (Glucose Blood)Indications: Type 2 diabetes mellitus with hemoglobin A1c goal of less than 7.0% (HCC) USE TO TEST ONCE PER DAY 100 Strip 3 10/09/2021 Active Warfarin Sodium 2 MG Oral Tablet (Coumadin)Indicati ons:Atrial flutter, unspecified type (HCC),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,MCFP current use of anticoagulant therapy,PAF (paroxysmal atrial [...] 180 Tablet 09/08/2022 Active OneTouch Delica Plus [id number] ns:Type 2 diabetes mellitus with hemoglobin A1c [...] as of this encounter (statuses as of 11/25/2022) Active Problems Problem Noted Date Typical atrial [...] as of this encounter (statuses as of 11/25/2022) Resolved Problems Problem Noted Date Resolved Date [...] as of this encounter (statuses as of 11/25/2022) Immunizations Name Administration Dates Next Due COVID-19 [...] encounter Miscellaneous Notes * Telephone Encounter - Jessica Baugh PA-C [...] Andrey Still DO [address] [place] [address] 11/29/2022 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 Pharmacy [place], [facility] [address] [place] [address] 11/30/2022 Nurse Only Nephrology [place], Nurse Nephrology [address] [place] [address] 12/08/2022 Office Visit Family Medicine Jessica Baugh PA-C [address] [place] [address] [place] [address] 01/19/2023 Office Visit Cardiology Cameron Becerra PA-C [address] [place] [address] 02/03/2023 Office Visit Orthopedic Surgery Celso Zayas MD [address] [place] [address] 02/24/2023 Office Visit Nephrology Radha Wyman PA-C [address] [facility] [place] [address] Health Maintenance Due Date Last Done Comments Zoster Vaccines (2 of 3) 08/02/2010 06/07/2010 Depression Screening 08/03/2021 08/03/2020 Diabetic Foot Exam 02/08/2023 02/08/2022, 0 05/28/2020, 05/17/2019, Additional history exists DIABETES-EYE EXAM 03/15/2023 03/15/2022, , 09/26/2019, Additional history exists HbA1c 05/17/2023 11/16/2022, 11/12, 04/28/2021, Additional history exists Albumin/Creatinine Ratio 11/17/2023 023, 03/29/2022, 01/06/2021, Additional history exists CKD HGB USE SMARTSET 21387 11/17/202311/16, 11/16/2022, 12/03/2021, Additional history exists CKD PHOS USE SMARTSET 98562 11/22/202311/11, 01/06/2021, 05/28/2020, Additional history exists DXA [...] filedocumented as of this encounter Care Teams Warehouse Distribution Associate Relationship Specialty Start Date End Date Priyanka Falcon MD [address] [place] [address] [place] [address] PCP - General Family Medicine 01/04/19 documented as of this encounter
--- OUTSIDE RECORDS SUMMARY | 2023-02-21 00:36 | External Medical Summary | Summary of Care ---
Author Name Unknown Organization [facility] Address [address] [place] [address] Phone [phone] Care Team Providers Care Director Talent Acquisition Name Role Phone Priyanka Falcon MD Primary Care Prov ider Reason for Visit * Reason Onset Date Comments Test Results 11/22/2022 Encounter Details Date Type Department Care Team Description 11/22/2022 Telephone Cardiology, [facility] [address] [place] [address] Cameron Becerra PA-C [address] [place] [address] Test Results Allergies Active Allergy Reactions Severity Noted Date Comments Naproxen Sodium Bleeding High 12/03/2009 Hs of GI bleed Aspirin Bleeding High 12/03/2009 Doxycycline Neuro complications (Please comment) Medium 10/23/2010 Hallucinations Ibuprofen Bleeding High 12/03/2009 Hx of GI bleed Nitrofurantoin Monohydrate Macrocrystals Neuro complications (Please comment) Low 09/16/2009 Headaches Jkolbuvu-Mnuvykqkv-Oz 01/25/2011 Caused eye problems Neosporin 05/30/2003 rash [...] TABLET DAILY 1 Tab 0 04/27/2010 Active [employer]aTOUCH ULTRASOFT LANCETS MISCIndications:DM type 2, goal A1c [...] DX e11.9 100 Strip 3 05/14/2021 Active [employer] Verio Flex System w/Device KitIndications:Typ e 2 diabetes mellitus with hemoglobin A1c goal of less than 7.5% (HCC) Use as directed . 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 Patient verbalized understanding. BMP ordered. ----- Message from Cameron Becerra PA-C sent at 11/22/2022 12:52 PM EDT ----- ? Obligatory change in kidney function? No changes for now. Repeat a basic metabolic panel in 2-3 weeks documented in this encounter Plan of Treatment Upcoming Encounters Date Type Specialty Care Team Description 11/29/2022 Office Visit Pain Medicine Andrey Still DO [address] [place] [phone] 11/29/2022 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 Pharmacy [place], [address] [place] [address] 11/30/2022 Nurse Only Nephrology [place], Nurse Nephrology [address] [place] [address] 12/08/2022 Office Visit Family Medicine Jessica Baugh PA-C [address] [place] [address] [place] [address] 01/19/2023 Office Visit Cardiology Cameron Becerra PA-C [address] [place] [address] 02/03/2023 Office Visit Orthopedic Surgery Celso Zayas MD [address] [place] [phone] 02/24/2023 Office Visit Nephrology Radha Wyman PA-C [address] [place] [address] Scheduled Orders Name Type Priority Associated Diagnoses Orde r Schedule BASIC METABOLIC PANEL Lab Routine Essential hypertension with goal blood pressure less than 140/90 Encounter for monitoring diuretic therapy Expected: 12/06/2022 (Approximate), Expires: 11/23/2023 Health Maintenance Due Date Last Done Comments Zoster Vaccines (2 of 3) 08/02/2010 06/07/2010 Depression Screening 08/03/2021 08/03/2020 Diabetic Foot Exam 02/08/2023 02/08/2022, 0 05/28/2020, 05/17/2019, Additional history exists DIABETES-EYE EXAM 03/15/2023 03/15/2022, , 09/26/2019, Additional history exists HbA1c 05/17/2023 11/16/2022, 11/12, 04/28/2021, Additional history exists Albumin/Creatinine Ratio 11/17/2023 023, 03/29/2022, 01/06/2021, Additional history exists CKD HGB USE SMARTSET 03445 11/17/202311/16, 11/16/2022, 12/03/2021, Additional history exists CKD PHOS USE SMARTSET 65647 11/22/202311/11, 01/06/2021, 05/28/2020, Additional history exists DXA [...] goal blood pressure less than 140/90- Primary Encounter for monitoring diuretic therapy Encounter for therapeutic drug monitoring documented in this encounter Care Teams Director Talent Acquisition Relationship Specialty Start Date End Date Priyanka Falcon MD [address] [place] [address] [place] [phone] PCP - General Family Medicine 01/04/19 documented as of this encounter
--- OUTSIDE RECORDS SUMMARY | 2023-02-21 00:36 | External Medical Summary | Summary of Care ---
Author Name Unknown Organization [facility] Address [address] [place] [address] Phone [phone] Care Team Providers Care Landscape Supervisor Name Role Phone Priyanka Falcon MD Primary Care Prov ider Reason for Visit * Reason Onset Date Comments Test Results 11/21/2022 ECHO REPORT Encounter Details Date Type Department Care Team Description 11/21/2022 Telephone Family Medicine [address] [address] Jessica Baugh PA-C [address] [place] [address] [place] [address] Test Results (ECHO REPORT) Allergies Active Allergy Reactions Severity Noted Date Comments Naproxen Sodium Bleeding High 12/03/2009 Hs of GI bleed Aspirin Bleeding High 12/03/2009 Doxycycline Neuro complications (Please comment) Medium 10/23/2010 Hallucinations Ibuprofen Bleeding High 12/03/2009 Hx of GI bleed Nitrofurantoin Monohydrate Macrocrystals Neuro complications (Please comment) Low 09/16/2009 Headaches Fdeifbbo-Vswfsgvdq-Vs 01/25/2011 Caused eye problems Neosporin 05/30/2003 rash [...] TABLET DAILY 1 Tab 0 04/27/2010 Active [employer]OUCH ULTRASOFT LANCETS MISCIndications:DM type 2, goal A1c [...] FOR ITCHING 30 g 2 05/28/2020 Active [employer] Verio In Vitro Strip (Glucose Blood)Indications: Type 2 diabetes mellitus with hemoglobin A1c goal of less than 7.5% ([facility]) Use to test blood sugar once a day DX e11.9 100 Strip 3 05/14/2021 Active [employer] Verio Flex System w/Device KitIndications:Typ e 2 diabetes mellitus with hemoglobin A1c goal of less than 7.5% (HCC) Use as directed . Use to test blood sugar Dx e11.9 1 Kit 0 05/14/2021 Active [employer] Ultra In Vitro Strip (Glucose Blood)Indications: Type 2 diabetes mellitus with hemoglobin A1c goal of less than 7.0% (HCC) USE TO TEST ONCE PER DAY 100 Strip 3 10/09/2021 Active Warfarin Sodium 2 MG Oral Tablet (Coumadin)Indicati ons:Atrial flutter, unspecified type (HCC),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,longterm current use of anticoagulant therapy,PAF (paroxysmal atrial fibrillation) ([facility]) Take 4 mg (2 tablets) [...] 180 Tablet 09/08/2022 Active OneTouch Delica Plus [id number] ns:Type 2 diabetes mellitus with hemoglobin A1c [...] with Cardio, then we will contact her * Telephone Encounter - MAGALI Arboleda - 11/21/2022 11:48 AM EDT Pt stated has not heard the results of the Echo that she had done. Please contact pt w/ results. documented in this encounter Plan of Treatment Upcoming Encounters Date Type Specialty Care Team Description 11/29/2022 Office Visit Pain Medicine Andrey Still DO [address] [place] [address] 11/29/2022 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 Pharmacy [place], [facility] [address] [place] [address] 11/30/2022 Nurse Only Nephrology [place], Nurse Nephrology [address] [place] [address] 12/08/2022 Office Visit Family Medicine Jessica Baugh PA-C [address] [place] [address] [place] [address] 01/19/2023 Office Visit Cardiology Cameron Becerra PA-C [address] [place] [address] 02/03/2023 Office Visit Orthopedic Surgery Celso Zayas MD [address] [place] [address] 02/24/2023 Office [facility] [address] [facility] [address] [facility] Maintenance Due Date Last Done Comments Zoster Vaccines (2 of 3) 08/02/2010 06/07/2010 Depression Screening 08/03/2021 08/03/2020 Diabetic Foot Exam 02/08/2023 02/08/2022, 0 05/28/2020, 05/17/2019, Additional history exists DIABETES-EYE EXAM 03/15/2023 03/15/2022, , 09/26/2019, Additional history exists HbA1c 05/17/2023 11/16/2022, 11/12, 04/28/2021, Additional history exists Albumin/Creatinine Ratio 11/17/2023 023, 03/29/2022, 01/06/2021, Additional history exists CKD HGB USE SMARTSET 32182 11/17/202311/16, 11/16/2022, 12/03/2021, Additional history exists CKD PHOS USE SMARTSET 61692 11/22/202311/11, 01/06/2021, 05/28/2020, Additional history exists DXA [...] filedocumented as of this encounter Care Teams Landscape Supervisor Relationship Specialty Start Date End Date Priyanka Falcon MD [address] [place] [address] [place] [address] PCP - General Family Medicine 01/04/19 documented as of this encounter
--- OUTSIDE RECORDS SUMMARY | 2023-02-21 00:36 | External Medical Summary | Summary of Care ---
Author Name Unknown Organization [facility] Address [address] [place] [address] Phone [phone] Care Team Providers Care Electronics Teacher Name Role Phone Priyanka Falcon MD Primary Care Prov ider Reason for Referral * Medication Prior Authorization - Pending Review Specialty Diagnoses / Procedures Referred By Contac t Referred To Contact Diagnoses Bilateral low back pain without sciatica, unspecified chronicity Priyanka Falcon MD [address] [place] [address] [place] [id number] Referral ID Status Reason Start Date Expiration Date V isits Requested Visits Authorized [id number] Pending Review 999 192 Reason for Visit * Reason Onset Date Comments Advice 11/18/2022 Encounter Details Date Type Department Care Team Description 11/18/2022 Telephone Family Medicine [address] [place] [address] Jessica Baugh PA-C [address] [place] [address] [place] [phone] Advice Allergies Active Allergy Reactions Severity Noted Date Comments Naproxen Sodium Bleeding High 12/03/2009 Hs of GI bleed Aspirin Bleeding High 12/03/2009 Doxycycline Neuro complications (Please comment) Medium 10/23/2010 Hallucinations Ibuprofen Bleeding High 12/03/2009 Hx of GI bleed Nitrofurantoin Monohydrate Macrocrystals Neuro complications (Please comment) Low 09/16/2009 Headaches Kxaqlibi-Dwwrjygcu-Bd 01/25/2011 Caused eye problems Neosporin 05/30/2003 rash [...] goal of less than 7.5% ([facility]) Use to test blood sugar once a day DX e11.9 100 Strip 3 05/15/19 22 Active OneTouch Verio Flex System w/Device KitIndications:Ty pe 2 diabetes mellitus with hemoglobin A1c goal of less than 7.5% ([facility]) Use as directed . 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,PAF (paroxysmal atrial fibrillation) (HCC) Take 4 mg (2 tablets) on Wednesdays; Take 2 mg (1 tablet) all other days OR as directed by anticoagulation clinic 100 Tablet 3 11/19/19 22 Active Metoprolol Succinate ER 100 MG [...] goal of less than 7.5% ([facility]) TAKE 1 TABLET BY MOUTH [...] goal of less than 7.5% ([facility]) TAKE 1 TABLET BY MOUTH TWICE A DAY WITH BREAKFAST AND SUPPER 180 Tablet 1 09/09/19 23 Active OneTouch Delica Plus [id number] ons:Type 2 diabetes mellitus with hemoglobin A1c goal of less than 7.5% ([facility]) Use as directed. Use to test blood sugar once a day DX e11.9 100 Each 3 09/11/19 23 Active Gabapentin 100 MG Oral Capsule (Neurontin) Take 1 Capsule by mouth at bedtime. 30 Capsule 1 11/17/19 23 Active Furosemide 40 MG Oral Tablet (Lasix)Indication s:Congestive heart failure, unspecified HF chronicity, unspecified heart failure type (HCC) Take 1 Tablet by mouth in the morning. 30 Tablet 5 11/18/19 23 Active Cephalexin 500 MG Oral Capsule (Keflex) Take 1 Capsule by mouth in the morning and 1 Capsule before bedtime. Do all this for 5 days. 10 Capsule 0 11/18/19 23 023 Active HYDROcodone-Aceta minophen 5-325 MG Oral TabletIndications :Bilateral low back pain without sciatica, unspecified chronicity Take 1 Tablet by mouth 2 times a day as needed for Pain, Severe. 30 Tablet 0 11/19/19 23 Active amLODIPine Besylate 5 MG Oral Tablet (Norvasc)Indicati ons:Peripheral edema Take 0.5 Tablets by mouth in the morning. 90 Tablet 3 09/22/19 22 023 Discontinued(Sc dication List Clean Up) Atorvastatin Calcium 80 MG Oral Tablet (Lipitor) Take by mouth 1 Tablet in the morning. 90 Tablet 3 12/07/19 22 023 Discontinued documented as of this [...] encounter Miscellaneous Notes * Telephone Encounter - Sunita Ramirez LPN - 11/18/2022 3:50 PM EDT Provider to address: malini calling to check on message. Informed of message. She verbalized understanding. she will have pt repeat labs (cpm pending) and would like hydrocodone sent to pharm. Pt is having a lot of pain in her back. Reason for Call: Advice Contact: Telephone Call Contact Type: Test Results Outcome: na Total Time including non face to face (minutes): 5 * Telephone Encounter - Sona Alberts LPN - 11/18/2022 3:00 PM EDT Please inform pt of both messages below (Dr. Mak's and Jessica's) * Telephone Encounter - Sona Alberts LPN - 11/18/2022 2:59 PM EDT ----- Message from Jessica Baugh PA-C sent at 11/17/2022 8:45 AM EDT ----- Please let patient know: She does have signs of heart failure on her labs which likely explains why her swelling has gotten worse. I would like her to start on Furosemide 40 mg daily as it seems like 20 mg has not helped in the past. She will need to have repeat blood work done early next week for recheck of kidney function. It also looks like she may have a UTI- I will send an antibiotic for her to start as well pendingthe final culture which might not be back until over the weekend. Keep appt for Echo today. Thanks SY Barnes * Telephone Encounter - Priyanka Yeboah MD - 11/18/2022 12:06 PM EDT Chart reviewed. Agree with use of Keflex for UTI, Furosemide for leg edema. Need to monitor her renal function. I would advise against Gabapentin for back pain, due to her current edema and heart problems. We can consider PRN hydrocodone if needed. Nursing please call patient with above advice. SY Lopez. * Telephone Encounter - Sunita Ramirez LPN - 11/18/2022 8:48 AM EDT Provider to address: ARVIN Lopez calling about meds prescribed Jessica. Malini is concerns about pt's kidney disease and taking the gabapentin back pain spinal stenosis, keflex for UTI and lasix. She researched each drug and noted warning about taking each if you have dx of CDK. She would like advise if these are safe for pt. She also noted with gabapentin it should not be taken at the same time as lorazepam. Pt takes her lorazepam at night for anxiety, she was told to take the gabapentin at night too. Malini inquired if hydrocodone could be prescribed again for back pain relief? Pt was prescribed hydrocodone about a year ago, she didn't take it at first and told the office she was not taking it, it was d/c from med list 02/01. Pt has a lot of back pain. Also pt was seeing alize Kendrick but missed a few appts, Malini would like pt see her again and inquired if new referral could be placed. Please advise Reason for Call: Advice Contact: Telephone Call Contact Type: Medication Outcome: n/a Total Time including non face to face (minutes): 5 documented in this encounter Plan of Treatment Upcoming Encounters Date Type Specialty Care Team Description 11/29/2022 Office Visit Pain Medicine Andrey Still DO [address] [place] [phone] 11/29/2022 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 [facility], [address] [place] [address] 11/30/2022 Nurse Only Nephrology [facility], Nurse Nephrology [address] [place] [address] 12/08/2022 Office Visit Family Medicine Jessica Baugh PAJesse [address] [place] [address] [place] [address] 01/19/2023 Office Visit Cardiology Cameron Becerra PA-C [address] [place] [phone] 02/03/2023 Office Visit Orthopedic Surgery Celso Zayas MD [address] [place] [phone] 02/24/2023 Office Visit Nephrology Radha Wyman PA-C [address] [facility] [place] [address] Health Maintenance Due Date Last Done Comments Zoster Vaccines (2 of 3) 08/02/2010 06/07/2010 Depression Screening 08/03/2021 08/03/2020 Diabetic Foot Exam 02/08/2023 02/08/2022, 0 05/28/2020, 05/17/2019, Additional history exists DIABETES-EYE EXAM 03/15/2023 03/15/2022, , 09/26/2019, Additional history exists HbA1c 05/17/2023 11/16/2022, 11/12, 04/28/2021, Additional history exists Albumin/Creatinine Ratio 11/17/2023 023, 03/29/2022, 01/06/2021, Additional history exists CKD HGB USE SMARTSET 44415 11/17/202311/16, 11/16/2022, 12/03/2021, Additional history exists CKD PHOS USE SMARTSET 79156 11/22/202311/11, 01/06/2021, 05/28/2020, Additional history exists DXA [...] Not on filedocumented as of this encounter Results * (ABNORMAL) COMPREHENSIVE METABOLIC PANEL (11/21/2022 2:04 PM EDT) BUN 43(H) 6 - 20 mg/dL 11/22/2022 12:19 AM EDT [facility] Creatinine 1.5(H) 0.5 - 1.0 mg/dL 11/22/2022 12:19 AM EDT [facility] Estimated Glomerular Filtration Rate 34(L) >=60 mL/min 11/22/2022 12:19 AM EDT [facility] Comment:eGFR is calculated b ased on the CKD-EPI 2020 equation Sodium 140 135 - 146 mmol/L 11/22/2022 12:19 AM EDT [facility] Potassium 4.4 3.5 - 5.1 mmol/L 11/22/2022 12:19 AM EDT [facility] Chloride 100 98 - 107 mmol/L 11/22/2022 12:19 AM EDT [facility] CO2 23 22 - 32 mmol/L 11/22/2022 12:19 AM EDT [facility] Anion Gap 17(H) 7 - 15 mmol/L 11/22/2022 12:19 AM EDT [facility] Glucose 135(H) 70 - 120 mg/dL 11/22/2022 12:19 AM EDT [facility] Albumin 4.1 3.8 - 5.0 g/dL 11/22/2022 12:19 AM EDT [facility] AST 27 10 - 35 U/L 11/22/2022 12:19 AM EDT [facility] Alkaline Phosphatase 82 35 - 130 U/L 11/22/2022 12:19 AM EDT [facility] Bilirubin, Total 0.4 <=1.2 mg/dL 11/22/2022 12:19 AM EDT [facility] Calcium 9.2 8.4 - 10.2 mg/dL 11/22/2022 12:19 AM EDT [facility] Protein 7.0 6.0 - 8.3 g/dL 11/22/2022 12:19 AM EDT [facility] ALT 26 10 - 35 U/L 11/22/2022 12:19 AM EDT [facility] Blood Venous blood specimen / Unknown Venipuncture / Unknown 11/21/2022 2:04 PM EDT 11/21/2022 2:04 PM EDT Priyanka Yeboah MD LAB BLOOD ORDERABLES [facility] [address] [place] [address] documented in this encounter Visit Diagnoses Diagnosis Bilateral low back pain without sciatica, unspecified chronicity- Primary documented in this encounter Care Teams Electronics Teacher Relationship Specialty Start Date End Date Priyanka Falcon MD [address] [place] [address] [place] [phone] PCP - General Family Medicine 01/04/19 documented as of this encounter
--- OUTSIDE RECORDS SUMMARY | 2023-02-21 00:36 | External Medical Summary | Summary of Care ---
Author Name Unknown Organization [facility] Address [address] [place] [address] Phone [phone] Care Team Providers Care Pcb Designer Name Role Phone Priyanka Falcon MD Primary Care Prov ider Reason for Visit * Reason Onset Date Comments Test Results 11/22/2022 Encounter Details Date Type Department Care Team Description 11/22/2022 Telephone Cardiology, [facility] [address] [place] [phone] Cameron Becerra PA-C [address] [place] [address] Test Results Allergies Active Allergy Reactions Severity Noted Date Comments Naproxen Sodium Bleeding High 12/03/2009 Hs of GI bleed Aspirin Bleeding High 12/03/2009 Doxycycline Neuro complications (Please comment) Medium 10/23/2010 Hallucinations Ibuprofen Bleeding High 12/03/2009 Hx of GI bleed Nitrofurantoin Monohydrate Macrocrystals Neuro complications (Please comment) Low 09/16/2009 Headaches Gvzzexba-Gtkaoltkz-Nq 01/25/2011 Caused eye problems Neosporin 05/30/2003 rash [...] TABLET DAILY 1 Tab 0 04/27/2010 Active EventpigTOUCH ULTRASOFT LANCETS MISCIndications:DM type 2, goal A1c [...] DX e11.9 100 Strip 3 05/14/2021 Active LaunchHearTouch Verio Flex System w/Device KitIndications:Typ e 2 diabetes mellitus with hemoglobin A1c goal of less than 7.5% (HCC) Use as directed . 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,PAF (paroxysmal atrial fibrillation) ([facility]) Take 4 mg (2 tablets) on [...] 180 Tablet 09/08/2022 Active OneTouch Delica Plus [id number] ns:Type 2 diabetes mellitus with hemoglobin A1c [...] Still DO [address] [place] [address] 11/29/2022 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 Pharm[facility], [address] [place] [address] 11/30/2022 Nurse Only Nephrology [place], Nurse Nephrology [address] [place] [address] 12/08/2022 Office Visit Family Medicine Jessica Baugh PA-C [address] [place] [address] [place] [address] 01/19/2023 Office Visit Cardiology Cameron Becerra PA-C [address] [place] [address] 02/03/2023 Office Visit Orthopedic Surgery Celso Zayas MD [address] [place] [phone] 02/24/2023 Office Visit Nephrology Radha Wyman PA-C [address] [place] [address] Scheduled Orders Name Type Priority Associated Diagnoses [...] Additional history exists CKD HGB USE SMARTSET 99385 11/17/202311/16, 11/16/2022, 12/03/2021, Additional history exists CKD PHOS USE SMARTSET 48578 11/22/202311/11, 01/06/2021, 05/28/2020, Additional history exists DXA [...] monitoring documented in this encounter Care Teams Pcb Designer Relationship Specialty Start Date End Date Priyanka Falcon MD [address] [place] [address] [place] [phone] PCP - General Family Medicine 01/04/19 documented as of this encounter
--- OUTSIDE RECORDS SUMMARY | 2023-02-21 00:36 | External Medical Summary | Summary of Care ---
Author Name Unknown Organization [facility] Address [address] [place] [address] Phone [phone] Care Team Providers Care Cyber Security Manager Name Role Phone Priyanka Falcon MD Primary Care Prov ider Reason for Visit * Reason Onset Date Comments Test Results 11/21/2022 ECHO REPORT Encounter Details Date Type Department Care Team Description 11/21/2022 Telephone Family Medicine [address] [address] Jessica Baugh PA-C [address] [place] [address] [place] [address] Test Results (ECHO REPORT) Allergies Active Allergy Reactions Severity Noted Date Comments Naproxen Sodium Bleeding High 12/03/2009 Hs of GI bleed Aspirin Bleeding High 12/03/2009 Doxycycline Neuro complications (Please comment) Medium 10/23/2010 Hallucinations Ibuprofen Bleeding High 12/03/2009 Hx of GI bleed Nitrofurantoin Monohydrate Macrocrystals Neuro complications (Please comment) Low 09/16/2009 Headaches Figmvgbf-Aplomnerl-Gw 01/25/2011 Caused eye problems Neosporin 05/30/2003 rash [...] TABLET DAILY 1 Tab 0 04/27/2010 Active [facility] NoliTOUCH ULTRASOFT LANCETS MISCIndications:DM type 2, goal A1c [...] FOR ITCHING 30 g 2 05/28/2020 Active [facility] Verio In Vitro Strip (Glucose Blood)Indications: Type 2 diabetes mellitus with hemoglobin A1c goal of less than 7.5% ([facility]) Use to test blood sugar once a day DX e11.9 100 Strip 3 05/14/2021 Active [facility] Verio Flex System w/Device KitIndications:Typ e 2 diabetes mellitus with hemoglobin A1c goal of less than 7.5% (HCC) Use as directed . Use to test blood sugar Dx e11.9 1 Kit 0 05/14/2021 Active ChatStat Ultra In Vitro Strip (Glucose Blood)Indications: Type 2 diabetes mellitus with hemoglobin A1c goal of less than 7.0% (HCC) USE TO TEST ONCE PER DAY 100 Strip 3 10/09/2021 Active Warfarin Sodium 2 MG Oral Tablet (Coumadin)Indicati ons:Atrial flutter, unspecified type (HCC),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,[facility] current use of anticoagulant therapy,PAF (paroxysmal atrial fibrillation) ([facility]) Take 4 mg (2 tablets) on [...] 180 Tablet 09/08/2022 Active OneTouch Delica Plus [id number] ns:Type 2 diabetes mellitus with hemoglobin A1c [...] Still DO [address] [place] [address] 11/29/2022 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 Pharmacy [place] [facility], [facility] [address] [place] [address] 11/30/2022 Nurse Only Nephrology [place], Nurse Nephrology [address] [place] [address] 12/08/2022 Office Visit Family Medicine Jessica Baugh PA-C [address] [place] [address] [place] [address] 01/19/2023 Office Visit Cardiology Cameron Becerra PA-C [address] [place] [address] 02/03/2023 Office Visit Orthopedic Surgery Celso Zayas MD [address] [place] [address] 02/24/2023 Office [facility] [address] [facility] [address] Health Maintenance Due Date Last Done Comments Zoster Vaccines (2 of 3) 08/02/2010 06/07/2010 Depression Screening 08/03/2021 08/03/2020 Diabetic Foot Exam 02/08/2023 02/08/2022, 0 05/28/2020, 05/17/2019, Additional history exists DIABETES-EYE EXAM 03/15/2023 03/15/2022, , 09/26/2019, Additional history exists HbA1c 05/17/2023 11/16/2022, 11/12, 04/28/2021, Additional history exists Albumin/Creatinine Ratio 11/17/2023 023, 03/29/2022, 01/06/2021, Additional history exists CKD HGB USE SMARTSET 32547 11/17/202311/16, 11/16/2022, 12/03/2021, Additional history exists CKD PHOS USE SMARTSET 64159 11/22/202311/11, 01/06/2021, 05/28/2020, Additional history exists DXA [...] filedocumented as of this encounter Care Teams Cyber Security Manager Relationship Specialty Start Date End Date Priyanka Falcon MD [address] [place] [address] [place] [address] PCP - General Family Medicine 01/04/19 documented as of this encounter
--- OUTSIDE RECORDS SUMMARY | 2023-02-21 00:37 | External Medical Summary | Summary of Care ---
Author Name Unknown Organization [facility] Address [address] [place] [address] Phone [phone] Care Team Providers Care Evaporator Repairer Name Role Phone Priyanka Falcon MD Primary Care Prov ider Reason for Visit * Reason Comments Outpatient Testing Encounter Details Date Type Department Care Team Description 11/21/2022 Laboratory Laboratory [address] [place] [id number] [facility] Lab [address] [place] [address] Dyslipidemia, goal LDL below 70; Type 2 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 disease, without long-term current use of insulin (HCC); Bilateral low back pain without sciatica, unspecified chronicity Allergies Active Allergy Reactions Severity Noted Date Comments Naproxen Sodium Bleeding High 12/03/2009 Hs of GI bleed Aspirin Bleeding High 12/03/2009 Doxycycline Neuro complications (Please comment) Medium 10/23/2010 Hallucinations Ibuprofen Bleeding High 12/03/2009 Hx of GI bleed Nitrofurantoin Monohydrate Macrocrystals Neuro complications (Please comment) Low 09/16/2009 Headaches Miuvjbqb-Ggddohdlc-Or 01/25/2011 Caused eye problems Neosporin 05/30/2003 rash Sulfa Antibiotics 05/11/2002 nausea & vomiting Tramadol Hcl Unknown 12/03/2009 Triamterene 11/16/2022 ulcers documented as of this encounter (statuses as of 11/21/2022) Medications Medication Sig Dispensed Refills Start Date End Date Status ASPIRIN 81 MG PO TABS None Entered 0 Active [facility] VITAMIN B12 1000 MCG PO TABSIndications:Vi tamin B deficiency 1 TABLET DAILY 1 Tab 0 1 Active FlowboardTOUCH ULTRASOFT LANCETS MISCIndications:DM type 2, goal A1c below 7 TESTING TWICE A DAY DX:250.00 1 [address] 3 Active Cholecalciferol (VITAMIN D3) 1000 UNITS CAPS Take by mouth. 0 Active polyethylene glycol 3350 (MIRALAX) 255 gram powderIndications: Constipation, slow transit DISSOLVE 1 HEAPING TABLESPOON IN 8 OUNCES OF WATER OR JUICE DAILY NEEDED FOR CONSTIPATION 255 g 3 8 Active Triamcinolone Acetonide 0.1 % External Cream (Aristocort)Indica tions:Allergic contact dermatitis due to drugs in contact with skin APPLY TO THE AFFECTED AREA 2 TIMES A DAY NEEDED FOR ITCHING 30 g 2 1 Active Baby BlendyTouch Verio In Vitro Strip (Glucose Blood)Indications: Type 2 diabetes mellitus with hemoglobin A1c goal of less than 7.5% ([facility]) Use to test blood sugar once a day DX e11.9 100 Strip 3 2 Active Baby BlendyTouch Verio Flex System w/Device KitIndications:Typ e 2 diabetes mellitus with hemoglobin A1c goal of less than 7.5% ([facility]) Use as directed . 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,PAF (paroxysmal atrial fibrillation) ([facility]) Take 4 mg (2 tablets) on Wednesdays; Take 2 mg (1 tablet) all other days OR as directed by anticoagulation clinic 100 Tablet 3 2 Active Metoprolol Succinate ER 100 MG Oral Tablet Extended Release 24 Hour (toPROL XL)Indications:Ess ential hypertension with goal blood pressure less than 140/90 TAKE 1 TABLET BY MOUTH IN THE MORNING AND 1/2 TABLET DAILY AT BEDTIME 135 Tablet 3 2 Active Zoster Vac Recomb Adjuvanted 50 MCG/0.5ML Intramuscular Suspension Reconstituted (Shingrix)Indicati ons:Need for shingles vaccine Inject 0.5 mL into a large muscle now and repeat dose in 60 to 180 days 1 Each 1 3 Active glipiZIDE ER 2.5 MG Oral Tablet Extended Release 24 Hour (Glucotrol XL)Indications:Typ e 2 diabetes mellitus with hemoglobin A1c goal of less than 7.5% (HCC) TAKE 1 TABLET BY MOUTH DAILY 30 MINUTES BEFORE A MEAL 90 Tablet 1 3 Active amLODIPine Besylate 2.5 MG Oral Tablet (Norvasc) Take 1 Tablet by mouth in the morning. 90 Tablet 1 3 Active Lisinopril 20 MG Oral Tablet (Prinivil)Indicati ons:Essential hypertension with goal blood pressure less than 140/90,Hypertensio n goal BP (blood pressure) < 140/90 TAKE 1 TABLET BY MOUTH EVERY DAY 90 Tablet 3 3 Active Docusate Sodium 100 MG Oral Capsule (Colace)Indication s:Constipation, unspecified constipation type TAKE 1 CAP BY MOUTH EVERY MORNING. CAN TAKE 1 CAP IN THE EVENING NEEDED 60 Capsule 5 3 Active LORazepam 0.5 MG Oral Tablet (Ativan)Indication s:Persistent insomnia TAKE 1 TABLET BY MOUTH TWICE A DAY NEEDED FOR ANXIETY 120 Tablet 1 3 Active metFORMIN HCl 500 MG Oral Tablet (Glucophage)Indica tions:Type 2 diabetes mellitus with hemoglobin A1c goal of less than 7.5% (HCC) TAKE 1 TABLET BY MOUTH TWICE A DAY WITH BREAKFAST AND SUPPER 180 Tablet 1 3 Active OneTouch Delica Plus [id number] ns:Type 2 diabetes mellitus with hemoglobin A1c goal of less than 7.5% (HCC) Use as directed. Use to test blood sugar once a day DX e11.9 100 Each 3 3 Active Gabapentin 100 MG Oral Capsule (Neurontin) Take 1 Capsule by mouth at bedtime. 30 Capsule 1 3 Active Furosemide 40 MG Oral Tablet (Lasix)Indications :Congestive heart failure, unspecified HF chronicity, unspecified heart failure type (HCC) Take 1 Tablet by mouth in the morning. 30 Tablet 5 3 Active Cephalexin 500 MG Oral Capsule (Keflex) Take 1 Capsule by mouth in the morning and 1 Capsule before bedtime. Do all this for 5 days. 10 Capsule 0 3 11/23/19 23 Active HYDROcodone-Acetam inophen 5-325 MG Oral TabletIndications: Bilateral low back pain without sciatica, unspecified chronicity Take 1 Tablet by mouth 2 times a day as needed for Pain, Severe. 30 Tablet 0 3 Active Atorvastatin Calcium 80 MG Oral Tablet (Lipitor)Indicatio ns:Dyslipidemia, goal LDL below 70 TAKE 1 TABLET BY MOUTH EVERY DAY IN THE MORNING 90 Tablet 3 3 Active amLODIPine Besylate 5 MG Oral Tablet (Norvasc)Indicatio ns:Peripheral edema Take 0.5 Tablets by mouth in the morning. 90 Tablet 3 2 11/22/19 23 Discontinu ed(Medicat ion List Clean Up) documented as of this encounter (statuses as of 11/21/2022) Active Problems Problem Noted Date Typical atrial [...] as of this encounter (statuses as of 11/21/2022) Resolved Problems Problem Noted Date Resolved Date [...] as of this encounter (statuses as of 11/21/2022) Immunizations Name Administration Dates Next Due COVID-19 [...] Team Description 11/29/2022 Office Visit Pain Medicine NaeAndrey howard [address] [place] [phone] 11/29/2022 Office Visit Nephrology Carlene Kendrick MD [address] [place] [address] 11/29/2022 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 [facility], [address] [place] [address] 12/08/2022 Office Visit Family Medicine Jessica Baugh PA-C [address] [place] [address] [place] [address] 01/19/2023 Office Visit Cardiology Cameron Becerra PA-C [address] [place] [address] 02/03/2023 Office Visit Orthopedic Surgery Celso Zayas MD [address] [place] [address] 02/24/2023 Office Visit Nephrology Radha Wyman PA-C [address] [place] [address] Pending Results Name Type Priority Associated Diagnoses Date /Time COMPREHENSIVE METABOLIC PANEL Lab Routine Bilateral low back pain without sciatica, unspecified chronicity 11/21/2022 11:51 AM EDT Scheduled Orders Name Type Priority Associated Diagnoses Orde r Schedule PHOSPHORUS Lab Routine Type 2 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 disease, without long-term current use of insulin (HCC) Ordered: 11/21/2022 Health Maintenance Due Date Last Done Comments Zoster Vaccines (2 of 3) 08/02/2010 06/07/2010 Depression Screening 08/03/2021 08/03/2020 CKD PHOS USE SMARTSET 12853 01/06/202212/12, 05/28/2020, 04/03/2019, Additional history exists Diabetic Foot Exam 02/08/2023 02/08/2022, 0 05/28/2020, 05/17/2019, Additional history exists DIABETES-EYE EXAM 03/15/2023 03/15/2022, , 09/26/2019, Additional history exists HbA1c 05/17/2023 11/16/2022, 11/12, 04/28/2021, Additional history exists Albumin/Creatinine Ratio 11/17/2023 023, 03/29/2022, 01/06/2021, Additional history exists CKD HGB USE SMARTSET 17573 11/17/202311/16, 11/16/2022, 12/03/2021, Additional history exists DXA Scan 12/09/2027 12/08/2020, [...] as of this encounter Visit Diagnoses Diagnosis Dyslipidemia, goal LDL below 70 Other and unspecified hyperlipidemia Type 2 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 disease, without long-term current use of insulin (HCC) Bilateral low back pain without sciatica, unspecified chronicity documented in this encounter Care Teams Evaporator Repairer Relationship Specialty Start Date End Date Priyanka Falcon MD [address] [place] [address] [place] [phone] PCP - General Family Medicine 01/04/19 documented as of this encounter
--- OUTSIDE RECORDS SUMMARY | 2023-02-21 00:37 | External Medical Summary | Summary of Care ---
Author Name Unknown Organization [facility] Address [address] [place] [address] Phone [phone] Care Team Providers Care Field Assessor Name Role Phone Priyanka Falcon MD Primary Care Prov ider Reason for Visit * Reason Comments Outpatient Testing Encounter Details Date Type Department Care Team Description 11/21/2022 Laboratory Laboratory [address] [place] [phone] [facility] Lab [address] [place] [address] Dyslipidemia, goal LDL below 70; Type 2 [...] Neuro complications (Please comment) Low 09/16/2009 Headaches Sorckjho-Kxfatkcyr-Gj 01/25/2011 Caused eye problems Neosporin 05/30/2003 rash [...] TABLET DAILY 1 Tab 0 1 Active SonicoTOUCH ULTRASOFT LANCETS MISCIndications:DM type 2, goal A1c [...] FOR ITCHING 30 g 2 1 Active Apps4AllTouch Verio In Vitro Strip (Glucose Blood)Indications: Type 2 diabetes mellitus with hemoglobin A1c goal of less than 7.5% ([facility]) Use to test blood sugar once a day DX e11.9 100 Strip 3 2 Active Apps4AllTouch Verio Flex System w/Device KitIndications:Typ e 2 diabetes mellitus with hemoglobin A1c goal of less than 7.5% ([facility]) Use as directed . 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,PAF (paroxysmal atrial [...] Tablet 1 3 Active OneTouch Delica Plus [id number] ns:Type 2 diabetes mellitus with hemoglobin A1c [...] NaeAndrey howard [address] [place] [address] 11/29/2022 Office Visit Nephrology Carlene Kendrick MD [address] [place] [address] 11/29/2022 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 [facility], [address] [place] [address] 12/08/2022 Office Visit Family Medicine Jessica Baugh PA-C [address] [place] [address] [place] [address] 01/19/2023 Office Visit Cardiology Cameron Becerra PA-C [address] [place] [address] 02/03/2023 Office Visit Orthopedic Surgery Celso Zayas MD [address] [place] [address] 02/24/2023 Office Visit Nephrology Radha Wyman PA-C [address] [place] [address] Pending Results Name Type Priority Associated Diagnoses [...] Screening 08/03/2021 08/03/2020 CKD PHOS USE SMARTSET 23595 01/06/202212/12, 05/28/2020, 04/03/2019, Additional history exists Diabetic Foot Exam 02/08/2023 02/08/2022, 0 05/28/2020, 05/17/2019, Additional history exists DIABETES-EYE EXAM 03/15/2023 03/15/2022, , 09/26/2019, Additional history exists HbA1c 05/17/2023 11/16/2022, 11/12, 04/28/2021, Additional history exists Albumin/Creatinine Ratio 11/17/2023 023, 03/29/2022, 01/06/2021, Additional history exists CKD HGB USE SMARTSET 60931 11/17/202311/16, 11/16/2022, 12/03/2021, Additional history exists DXA [...] chronicity documented in this encounter Care Teams Field Assessor Relationship Specialty Start Date End Date Priyanka Falcon MD [address] [place] [address] [place] [address] PCP - General Family Medicine 01/04/19 documented as of this encounter
--- OUTSIDE RECORDS SUMMARY | 2023-02-21 00:37 | External Medical Summary | Summary of Care ---
Author Name Unknown Organization [facility] Address [address] [place] [address] Phone [phone] Care Team Providers Care Product Applications Scientist Name Role Phone Priyanka Falcon MD Primary Care Prov ider Reason for Visit * Reason Comments Outpatient Testing Encounter Details Date Type Department Care Team Description 11/21/2022 Laboratory Laboratory [address] [place] [phone] [facility] Lab [address] [place] [address] Dyslipidemia, goal LDL below 70; Type 2 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 disease, without long-term current use of insulin ([facility]); Bilateral low back pain without sciatica, unspecified chronicity; Encounter for long-term (current) use of other medications; Chronic kidney disease, stage 3a ([facility]); Uncontrolled hypertension Allergies Active Allergy Reactions Severity Noted Date Comments Naproxen Sodium Bleeding High 12/03/2009 Hs of GI bleed Aspirin Bleeding High 12/03/2009 Doxycycline Neuro complications (Please comment) Medium 10/23/2010 Hallucinations Ibuprofen Bleeding High 12/03/2009 Hx of GI bleed Nitrofurantoin Monohydrate Macrocrystals Neuro complications (Please comment) Low 09/16/2009 Headaches Cwsnjggv-Qxyohtzhy-Zy 01/25/2011 Caused eye problems Neosporin 05/30/2003 rash [...] TABLET DAILY 1 Tab 0 1 Active ONETOUCH ULTRASOFT LANCETS MISCIndications:DM type 2, goal A1c [...] FOR ITCHING 30 g 2 1 Active [employer]. Verio In Vitro Strip (Glucose Blood)Indications: Type 2 diabetes mellitus with hemoglobin A1c goal of less than 7.5% ([facility]) Use to test blood sugar once a day DX e11.9 100 Strip 3 2 Active FrontierreTouch Verio Flex System w/Device KitIndications:Typ e 2 diabetes mellitus with hemoglobin A1c goal of less than 7.5% ([facility]) Use as directed . Use to test blood sugar Dx e11.9 1 Kit 0 2 Active FrontierreTouch Ultra In Vitro Strip (Glucose Blood)Indications: Type 2 diabetes mellitus with hemoglobin A1c goal of less than 7.0% ([facility]) USE TO TEST ONCE PER DAY 100 Strip 3 2 Active Warfarin Sodium 2 MG Oral Tablet (Coumadin)Indicati ons:Atrial flutter, unspecified type ([facility]),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,jail current use of anticoagulant therapy,PAF (paroxysmal atrial fibrillation) ([facility]) Take 4 mg (2 tablets) on Wednesdays; [...] Tablet 1 3 Active OneTouch Delica Plus [id number] ns:Type 2 diabetes mellitus with hemoglobin A1c [...] Split, I IV3, With Preserve, Inj 12/02/2013,12/27/2012,12/21/2011,12/01,12/22/2009,12/08/2008,01/11/2008 ,12/26/2006,12/22/2005,12/16/2004,/07/2003,01/20/2003 Seasonal Influenza, Trivalen t, Adjuvanted, 65+ yrs [...] Andrey Still, [address] [place] [address] 11/29/2022 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 Pharmacy [place], [facility] [address] [place] [address] 11/30/2022 Nurse Only Nephrology [place], Nurse Nephrology [address] [place] [address] 12/08/2022 Office Visit Family Medicine Jessica Baugh PA-C [address] [place] [address] [place] [address] 01/19/2023 Office Visit Cardiology Cameron Becerra PA-C [address] [place] [address] 02/03/2023 Office Visit Orthopedic Surgery Celso Zayas MD [address] [place] [address] 02/24/2023 Office Visit Nephrology Radha Wyamn PA-C [address] [place] [address] Pending Results Name Type Priority Associated Diagnoses Date /Time COMPREHENSIVE METABOLIC PANEL Lab Routine Bilateral low back pain without sciatica, unspecified chronicity 11/21/2022 2:04 PM EDT PHOSPHORUS Lab Routine Encounter for long-term (current) use of other medications 11/21/2022 2:04 PM EDT PTH Lab Routine Chronic kidney disease, stage 3a (HCC) 11/21/2022 2:04 PM EDT Scheduled Orders Name Type Priority Associated Diagnoses Orde r Schedule PHOSPHORUS Lab Routine Type 2 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 disease, without long-term current use of insulin (HCC) Ordered: 11/21/2022 Health Maintenance Due Date Last Done Comments Zoster Vaccines (2 of 3) 08/02/2010 06/07/2010 Depression Screening 08/03/2021 08/03/2020 CKD PHOS USE SMARTSET 79231 01/06/202212/12, 05/28/2020, 04/03/2019, Additional history exists Diabetic Foot Exam 02/08/2023 02/08/2022, 0 05/28/2020, 05/17/2019, Additional history exists DIABETES-EYE EXAM 03/15/2023 03/15/2022, , 09/26/2019, Additional history exists HbA1c 05/17/2023 11/16/2022, 11/12, 04/28/2021, Additional history exists Albumin/Creatinine Ratio 11/17/2023 023, 03/29/2022, 01/06/2021, Additional history exists CKD HGB USE SMARTSET 60971 11/17/202311/16, 11/16/2022, 12/03/2021, Additional history exists DXA [...] low back pain without sciatica, unspecified chronicity Encounter for long-term (current) use of other medications Chronic kidney disease, stage 3a (HCC) Uncontrolled hypertension Unspecified essential hypertension documented in this encounter Care Teams Product Applications Scientist Relationship Specialty Start Date End Date Priyanka Falcon MD [address] [place] [address] [place] [phone] PCP - General Family Medicine 01/04/19 documented as of this encounter
--- OUTSIDE RECORDS SUMMARY | 2023-02-21 00:37 | External Medical Summary | Summary of Care ---
Author Name Unknown Organization [facility] Address [address] [place] [address] Phone [phone] Care Team Providers Care Leisure Travel Agent Name Role Phone Sailaja Garland MD Primary Care Prov ider Reason for Visit * Reason Comments Chronic Kidney Disease (CKD) Encounter Details Date Type Department Care Team Description 11/21/2022 Office Visit Nephrology [address] [place] [address] Carlene Kendrick MD [address] [place] [address] [place] [address] Uncontrolled hypertension*; Chronic kidney disease, stage 3a (HCC); HTN, goal below 130/80; Diabetes mellitus with stage 3 chronic kidney disease (HCC); Anemia due to stage 3a chronic kidney disease (HCC) Allergies Active Allergy Reactions Severity Noted Date Comments Naproxen Sodium Bleeding High 12/03/2009 Hs of GI bleed Aspirin Bleeding High 12/03/2009 Doxycycline Neuro complications (Please comment) Medium 10/23/2010 Hallucinations Ibuprofen Bleeding High 12/03/2009 Hx of GI bleed Nitrofurantoin Monohydrate Macrocrystals Neuro complications (Please comment) Low 09/16/2009 Headaches Yqtcqeyj-Ywfgcpeyf-Yw 01/25/2011 Caused eye problems Neosporin 05/30/2003 rash [...] FOR ITCHING 30 g 2 1 Active Alliance CardTouch Verio In Vitro Strip (Glucose Blood)Indications: Type 2 diabetes mellitus with hemoglobin A1c goal of less than 7.5% ([facility]) Use to test blood sugar once a day DX e11.9 100 Strip 3 2 Active Alliance CardTouch Verio Flex System w/Device KitIndications:Typ e 2 diabetes mellitus with hemoglobin A1c goal of less than 7.5% ([facility]) Use as directed . Use to test blood sugar Dx e11.9 1 Kit 0 2 Active L4 Mobileuch Ultra In Vitro Strip (Glucose Blood)Indications: Type 2 diabetes mellitus with hemoglobin A1c goal of less than 7.0% ([facility]) USE TO TEST ONCE PER DAY 100 Strip 3 2 Active Warfarin Sodium 2 MG Oral Tablet (Coumadin)Indicati ons:Atrial flutter, unspecified type ([facility]),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,jail current use of anticoagulant therapy,PAF (paroxysmal atrial fibrillation) ([facility]) Take 4 mg (2 tablets) on Wednesdays; [...] Tablet 1 3 Active OneTouch Delica Plus [id number] ns:Type 2 diabetes mellitus with hemoglobin A1c [...] Not Answered Alcohol Use Standard Drinks/Week Comments Not Currently [...] Sign Reading Time Taken Comments Blood Pressure 150/85 11/21/2022 1:01 PM EDT Pulse 94 11/21/2022 1:01 PM EDT Temperature - - Respiratory Rate 16 11/21/2022 12:58 PM EDT Oxygen Saturation 95% 11/21/2022 12:58 PM EDT Inhaled Oxygen Concentration - - Weight 70.3 kg (155 lb) 11/21/2022 12:58 PM EDT Height - - Body Mass Index 28.34 02/08/2022 10:57 AM EST documented in this encounter Patient Instructions * Patient Instructions* Carlene Kendrick MD - 11/21/2022 1:47 PM EDT -labs today -no medication changes yet pending labs; stay on furosemide for now -bring your upper arm home BP cuff in for KIDNEY NURSE to check accuracy -once you know cuff reads ok log BP at home 3 days 2X in AM and 2X in PM; write date, time, BP heart rate >>brainstorm together w/ your family how to remember to take your meds in morning -avoid medicines like aleve, advil, ibuprofen, aspirin more than 81 mg daily and other NSAIDS whichare not good for kidney patients. Take only tylenol (acetaminophen) up to 2000 mg daily as needed for pain or as directed by your primary care provider. documented in this encounter Progress Notes * Cralene Kendrick MD - 11/21/2022 1:08 PM EDT NEPHROLOGY CLINIC NOTE Nephrology [address] [place] [address] 11/21/2022, 1:08 PM Patient Name: Cristine Benitez BACKGROUND: 87 year old female presents for f/u of CKD stage 3A and less than 200 mg proteinuria from age diabetes and hypertension. 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 Creatinine had been 1.1-1.3 in 2015-early 2016; noted at PCP visit 10/2016 to have creatinine 2.0. On recheck of labs a few days later creatinine was down to 1.7. States she Follows w/ chiropractor for back; chronic L knee painas well. Also w/ frequent UTI sx. No personal hx of stones. One sister age 16 w/ pneumonia and ? Renal issue as well. No other FH of renal disease. No nsaid use. Drinks at least : 68 oz water daily. Home blood pressure checks: at times NSAID use: Aspirin 81 mg. Tylenol only Herbals/supplements: Vit D, Vit b12, Vitron C TODAY 11/21/2022: on keflex for UTI picked up on routine labs and no sx per pt; notes when asked specimen collected w/ hat. has not had BP meds yet today (appt 1300 - was in earlier for labs) Started on 11/16 on lasix 40 mg daily for edema/concern HF -- had recent TTE and short . Son and pt report marked improvement in edema of legs, including in ankles though these remain slightly swollen. No acute interval clinical events. Upcoming appts for injections in spine. W/ some confusion about meds today >> thinks not been on lasix ever in past; thinks lasix x 1wk. Pt does not use pill box; uses a chart and bottles; family watches and son confident she's doing well. Does later tell me sometimes "not always but sometimes" forgets meds until early afternoon. Dirinks in a day 4 x 17 oz water; occasional coffee, occasional diet soda small can. Acc by son ricky. REVIEW OF SYSTEMS General: No weakness, No fevers, sweats, or chills, No change in weight (not weighing self at home) Eyes: No recent significant change in vision. Respiratory: No cough,No wheezing, No shortness of breath Cardiovascular:No chest pain, No palpitations, and No syncope Gastrointestinal: No nausea, vomiting, diarrhea No hematemesis, No blood in stools No abdominal pain; tolerating abtx so far w/o GI sx >> has about 6 pillsleft Urinary: No dysuira, No hematuria. No flank pain Musculoskeletal: No muscle pains or cramps, No edema, +joint pain Diffuse and mostly back but also hips/knees Skin: No itching No presyncope or orthostatic sx; no falls Current Outpatient Medications Medication Sig Dispense Refill [...] DAY WITH BREAKFAST ANDSUPPER 180 Tablet 1 Gabapentin 100 MG Oral Capsule (Neurontin) Take 1 Capsule by mouth at bedtime. 30 Capsule 1 Furosemide 40 MG Oral Tablet (Lasix) Take 1 Tablet by mouth in the morning. 30 Tablet 5 Cephalexin 500 MG Oral Capsule (Keflex) Take 1 Capsule by mouth in the morning and 1 Capsule beforebedtime. Do all this for 5 days. 10 Capsule 0 HYDROcodone-Acetaminophen 5-325 MG Oral Tablet Take 1 [...] DAY NEEDED FOR ITCHING 30 g 2 Alliance CardTouch Verio In Vitro Strip (Glucose Blood) Use to test blood sugar once a day DX e11.9 100 Strip3 Alliance CardTouch Verio Flex System w/Device Kit Use as [...] 60 to 180 days 1 Each 1 OneTouch Delica Plus [id number] Use as directed. Use to test blood sugar once a day DX e11.9 100 Each 3 No current facility-administered medications for this visit. Review of patient's allergies indicates: Allergen Reactions Aleve [Naproxen Sodium] Bleeding Hs of GI bleed Aspirin Bleeding Ibuprofen Bleeding Hx of GI bleed Doxycycline Neuro complications (Please comment) Hallucinations Sjprravq-Vtvwvbcel-Yc [Gilfixyp-Qmapugmoy-Dm] Caused eye problems Neosporin rash Sulfa Antibiotics nausea & vomiting Tramadol Hcl Unknown Triamterene ulcers Macrobid [Nitrofurantoin Monohydrate Macrocrystals] Neuro complications (Please comment) Headaches PHYSICAL EXAMINATION: BP Readings from Last 6 Encounters: 11/21/22 150/85 11/16/22 152/86 03/29/22 136/64 02/17/22 136/72 02/08/22 136/70 10/15/21 138/76 Wt Readings from Last 6 Encounters: 11/21/22 70.3 kg (155 lb) 11/16/22 69.7 kg (153 lb 11.2 oz) 03/29/22 70.9 kg (156 lb 3.2 oz) 02/17/22 71.4 kg (157 lb 4.8 oz) 02/08/22 72 kg (158 lb 12.8 oz) 10/15/21 73.5 kg (162 lb) Pulse Readings from Last 6 Encounters: 11/21/22 94 11/16/22 89 03/29/22 90 02/17/22 84 02/08/22 84 09/21/21 80 NAD, oriented x 3, ambulatory w/ cane and uses w/c to get ar Normocephalic, atraumatic, eomi nonicteric sclerae MMM Supple neck Irregularly irregular w/o m/g/r; 1-2+ ankle edema CTAB w/ reasonable air mvt NT abd, +BS, soft No cyanosis or clubbing No rash No tremor, focal or global weakness; fluent speech, some challenges w/ hx at times LABS: Recent Labs Units 11/16/22 1514 12/03/21 0952 04/28/21 1319 01/06/21 1419 SODIUM - [facility] mmol/L 140 140 139 139 POTASSIUM - [facility] mmol/L 4.6 4.7 4.5 4.6 CHLORIDE - [facility] mmol/L 103 103 102 103 CO2 - [facility] mmol/L 25 24 22 23 BUN - [facility] mg/dL 26* 25* 25* 23* CREATININE - [facility] mg/dL 1.3* 1.2* 1.4* 1.1* ESTIMATED GLOMERULAR FILTRATION RATE - [facility] mL/min 41* 46* 37* 48* Recent Labs Units 11/16/22 1514 12/03/21 0952 04/28/21 1319 01/06/21 1419 HGB - [facility] g/dL 11.1* 11.0* 10.7* 10.7* FERRITIN - [facility] ng/mL 39 38 27 55 TRANSFERRIN SATURATION PERCENT - [facility] % 16 16 14* 14* Recent Labs Units 11/16/22 1514 12/03/21 0952 04/28/21 1319 01/06/21 1419 CALCIUM - [facility] mg/dL 9.2 9.2 8.7 8.8 PHOSPHORUS - [facility] mg/dL -- -- -- 3.4 25-HYDROXY VITAMIN D - [facility] ng/mL -- -- -- 41 PTH - [facility] pg/mL -- -- -- 49 Recent Labs Units 11/16/22 1514 12/03/21 0952 04/28/21 1319 01/06/21 1419 HEMOGLOBIN A1C - [facility] % 7.9* 7.6* 8.1* 8.4* Recent Labs Units 11/16/22 1514 03/29/22 1356 01/06/21 1419 ALBUMIN / CREATININE RATIO, URINE - [facility] mg/g Creat 91* 34* 61* Recent Labs Units 11/16/22 1514 04/28/21 1319 CLARITY, URINE - [facility] Slightly Cloudy* Clear GLUCOSE, URINE - [facility] mg/dL Negative Negative BILIRUBIN, URINE - [facility] Negative Negative KETONE, URINE - [facility] mg/dL Negative Negative SPECIFIC GRAVITY, URINE - [facility] 1.010 1.018 BLOOD, URINE - [facility] Negative Negative PH, URINE - [facility] Units 7.0 6.0 PROTEIN, URINE - [facility] mg/dL Trace* Trace* UROBILINOGEN, URINE - [facility] mg/dL Normal Normal NITRITE, URINE - [facility] Positive* Negative ESTERASE, URINE - [facility] Large* Negative BACTERIA, URINE - [facility] /HPF >200* -- WBC, URINE - [facility] /HPF 50+* -- RBC, URINE - [facility] /HPF 0-2 -- TTE 11/18/22 The rhythm during the transthoracic echo examination was atrial fibrillation with controlled ventricular response. The qualitative LV ejection fraction is 55-59% (normal). The left atrium is mildly enlarged (35-41 ml/m^2). Moderate focal calcification involving the tip of the anterior mitral valve leaflet. Moderate to severe mitral regurgitation. Moderate tricuspid regurgitation is present. The estimated pulmonary artery systolic pressure is 46mm Hg. Compared to last available study changes are noted as follows: Moderate to severe mitral regurgitation and moderate tricuspid regurgitation with mild pulmonary hypertension now present. ASSESSMENT AND PLAN: Chronic kidney disease, stage 3a (HCC) (Primary) Uncontrolled hypertension HTN, goal below 130/80 Diabetes mellitus with stage 3 chronic kidney disease (HCC) Anemia due to stage 3a chronic kidney disease (HCC) Follow Up: Return in about 3 months (around 02/20/2023) for clinic visit w/ [place], clinic visit w/ .| For: clinic visit w/ [place], clinic visit w/ | Check-out note: RENAL NV for cuff check 11/29 if possible Uncontrolled HTN today > adherence may have a role as she is forgetting meds at times -vaildate home cuff -3 day log -may need MTM/HTN -continue current doses of lasix, lisinopril, amlodipine >work w/ pt and family to help ensure taking meds as rx'd ER w/ emergencies Recheck bmp today after starting lasix recently Stable CKD 3B w/ worsening proteinuria (but on specimen w/ inflammation/bacteriuria) -update labs as below -cont ACEI, dose ok Stable anemia above KENAN criteria Patient Instructions -labs today -no medication changes yet pending labs; stay on furosemide for now -bring your upper arm home BP cuff in for KIDNEY NURSE to check accuracy -once you know cuff reads ok log BP at home 3 days 2X in AM and 2X in PM; write date, time, BP heart rate >>brainstorm together w/ your family how to remember to take your meds in morning -avoid medicines like aleve, advil, ibuprofen, aspirin more than 81 mg daily and other NSAIDS whichare not good for kidney patients. Take only tylenol (acetaminophen) up to 2000 mg daily as needed for pain or as directed by your primary care provider. Carlene Kendrick MD Nephrology [address] [place] [address] CC: Ref: SELF[[id number]] NO STREET ADDRESS AVAILABLE None (office) None (fax) PCP: SAILAJA GARLAND [address] [place] [address] [place] [address] This chart was completed in part utilizing [employer] Speech Voice Recognition Software. Randomword insertions, pronoun errors, and incomplete sentences are an occasional consequence of this system due to software limitations, and ambient noise. Any questions or concerns about the content, text, or information contained within the body of this dictation should be directly addressed to the provider for clarification. documented in this encounter Nursing Notes * Kellen Kinney RN - 11/21/2022 1:01 PM EDT Follow up visit today. No recent illness or hospital stays. Currently being treated for UTI with Keflex. Son present in room for visit. documented in this encounter Plan of Treatment Upcoming Encounters Date Type Specialty Care Team Description 11/29/2022 Office Visit Pain Medicine Andrey Still DO [address] [place] [address] 11/29/2022 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 Pharmacy [place], [address] [place] [address] 11/30/2022 Nurse Only Nephrology [facility] Nurse Nephrology [address] [place] [address] 12/08/2022 Office Visit Family Medicine Jessica Baugh PA-C [address] [place] [address] [place] [address] 01/19/2023 Office Visit Cardiology Cameron Becerra PA-C [address] [place] [address] 02/03/2023 Office Visit Orthopedic Surgery Celso Zayas MD [address] [place] [address] 02/24/2023 [facility] [address] Pending Results Name Type Priority Associated Diagnoses Date /Time PTH Lab Routine Chronic kidney disease, stage 3a (HCC) 11/21/2022 2:04 PM EDT Scheduled Orders Name Type Priority Associated Diagnoses Orde r Schedule PTH Lab Routine Chronic kidney disease, stage 3a (HCC) Expected: 05/22/2023 (Approximate), Expires: 11/22/2023 Health Maintenance Due Date Last Done Comments Zoster Vaccines (2 of 3) 08/02/2010 06/07/2010 Depression Screening 08/03/2021 08/03/2020 CKD PHOS USE SMARTSET 19655 01/06/202212/12, 05/28/2020, 04/03/2019, Additional history exists Diabetic Foot Exam 02/08/2023 02/08/2022, 0 05/28/2020, 05/17/2019, Additional history exists DIABETES-EYE EXAM 03/15/2023 03/15/2022, , 09/26/2019, Additional history exists HbA1c 05/17/2023 11/16/2022, 11/12, 04/28/2021, Additional history exists Albumin/Creatinine Ratio 11/17/2023 023, 03/29/2022, 01/06/2021, Additional history exists CKD HGB USE SMARTSET 13717 11/17/202311/16, 11/16/2022, 12/03/2021, Additional history exists DXA [...] as of this encounter Visit Diagnoses Diagnosis Uncontrolled hypertension- Primary Unspecified essential hypertension Chronic kidney disease, stage 3a (HCC) HTN, goal below 130/80 Unspecified essential hypertension Diabetes mellitus with stage 3 chronic kidney disease (HCC) Type II or unspecified type diabetes mellitus with renal manifestations, not stated as uncontrolled Anemia due to stage 3a chronic kidney disease (HCC) documented in this encounter Care Teams Leisure Travel Agent Relationship Specialty Start Date End Date Sailaja Garland MD [address] [place] [address] [place] [address] PCP - General Family Medicine 01/04/19 documented as of this encounter
--- OUTSIDE RECORDS SUMMARY | 2023-02-21 00:37 | External Medical Summary | Summary of Care ---
Author Name Unknown Organization [facility] Address [address] [place] [address] Phone [phone] Care Team Providers Care Certified [place]orthand Reporter Name Role Phone Priyanka Falcon MD Primary Care Prov ider Reason for Visit * Reason Comments Outpatient Testing Encounter Details Date Type Department Care Team Description 11/21/2022 Laboratory Laboratory [address] [place] [id number] [facility] Lab [address] [place] [address] Dyslipidemia, goal LDL below 70; Type 2 [...] Neuro complications (Please comment) Low 09/16/2009 Headaches Rxtpceva-Faebxrxuh-Wb 01/25/2011 Caused eye problems Neosporin 05/30/2003 rash [...] TABLET DAILY 1 Tab 0 1 Active I Like My WaitressTOUCH ULTRASOFT LANCETS MISCIndications:DM type 2, goal A1c [...] FOR ITCHING 30 g 2 1 Active [employer] MedicalTouch Verio In Vitro Strip (Glucose Blood)Indications: Type 2 diabetes mellitus with hemoglobin A1c goal of less than 7.5% ([facility]) Use to test blood sugar once a day DX e11.9 100 Strip 3 2 Active [employer] MedicalTouch Verio Flex System w/Device KitIndications:Typ e 2 diabetes mellitus with hemoglobin A1c goal of less than 7.5% ([facility]) Use as directed . 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,PAF (paroxysmal atrial fibrillation) ([facility]) Take 4 mg (2 [...] Tablet 1 3 Active OneTouch Delica Plus [id number] ns:Type 2 diabetes mellitus with hemoglobin A1c [...] Andrey Still, [address] [place] [address] 11/29/2022 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 Pharmacy [place], [facility] [address] [place] [address] 11/30/2022 Nurse Only Nephrology [place], Nurse Nephrology [address] [place] [address] 12/08/2022 Office Visit Family Medicine Jessica Baugh PA-C [address] [place] [address] [place] [address] 01/19/2023 Office Visit Cardiology Cameron Becerra PA-C [address] [place] [address] 02/03/2023 Office Visit Orthopedic Surgery Celso Zayas MD [address] [place] [id number] 02/24/2023 Office Visit Nephrology Radha Wyman PA-C [address] [facility] [place] [address] Scheduled Orders Name Type Priority Associated Diagnoses Orde r Schedule PHOSPHORUS Lab Routine Type 2 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 disease, without long-term current use of insulin (HCC) Ordered: 11/21/2022 Health Maintenance Due Date Last Done Comments Zoster Vaccines (2 of 3) 08/02/2010 06/07/2010 Depression Screening 08/03/2021 08/03/2020 CKD PHOS USE SMARTSET [id number] 01/06/202212/12, 05/28/2020, 04/03/2019, Additional history exists Diabetic Foot Exam 02/08/2023 02/08/2022, 0 05/28/2020, 05/17/2019, Additional history exists DIABETES-EYE EXAM 03/15/2023 03/15/2022, , 09/26/2019, Additional history exists HbA1c 05/17/2023 11/16/2022, 11/12, 04/28/2021, Additional history exists Albumin/Creatinine Ratio 11/17/2023 023, 03/29/2022, 01/06/2021, Additional history exists CKD HGB USE SMARTSET 95627 11/17/202311/16, 11/16/2022, 12/03/2021, Additional history exists DXA [...] chronicity documented in this encounter Care Teams Certified Shorthand Reporter Relationship Specialty Start Date End Date Priyanka Falcon MD [address] [place] [address] [place] [address] PCP - General Family Medicine 01/04/19 documented as of this encounter
--- OUTSIDE RECORDS SUMMARY | 2023-02-21 00:37 | External Medical Summary | Summary of Care ---
Author Name Unknown Organization [facility] Address [address] [place] [address] Phone [phone] Care Team Providers Care Manager Water Name Role Phone Priyanka Falcon MD Primary Care Prov ider Reason for Visit * Reason Comments Outpatient Testing Encounter Details Date Type Department Care Team Description 11/21/2022 Laboratory Laboratory [address] [place] [phone] [facility] Lab [address] [place] [address] Dyslipidemia, goal LDL below 70; Type 2 [...] Neuro complications (Please comment) Low 09/16/2009 Headaches Rkyychwc-Ehxpniqxq-Iv 01/25/2011 Caused eye problems Neosporin 05/30/2003 rash [...] TABLET DAILY 1 Tab 0 1 Active ArrivelyTOUCH ULTRASOFT LANCETS MISCIndications:DM type 2, goal A1c [...] FOR ITCHING 30 g 2 1 Active Loud3rTouch Verio In Vitro Strip (Glucose Blood)Indications: Type 2 diabetes mellitus with hemoglobin A1c goal of less than 7.5% ([facility]) Use to test blood sugar once a day DX e11.9 100 Strip 3 2 Active Loud3rTouch Verio Flex System w/Device KitIndications:Typ e 2 diabetes mellitus with hemoglobin A1c goal of less than 7.5% ([facility]) Use as directed . 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,PAF (paroxysmal atrial fibrillation) ([facility]) Take 4 mg (2 tablets) on Wednesdays; [...] Tablet 1 3 Active OneTouch Delica Plus [id number] ns:Type 2 diabetes mellitus with hemoglobin A1c [...] Andrey Still, [address] [place] [address] 11/29/2022 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 Pharmacy [place], [facility] [address] [place] [address] 11/30/2022 Nurse Only Nephrology [place], Nurse Nephrology [address] [place] [address] 12/08/2022 Office Visit Family Medicine Jessica Baugh PA-C [address] [place] [address] [place] [address] 01/19/2023 Office Visit Cardiology Cameron Becerra PA-C [address] [place] [address] 02/03/2023 Office Visit Orthopedic Surgery Celso Zayas MD [address] [place] [phone] 02/24/2023 Office Visit Nephrology Radha Wyman PA-C [facility] [place] [place] [address] Scheduled Orders Name Type Priority Associated Diagnoses Orde r Schedule PHOSPHORUS Lab Routine Type 2 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 disease, without long-term current use of insulin (HCC) Ordered: 11/21/2022 Health Maintenance Due Date Last Done Comments Zoster Vaccines (2 of 3) 08/02/2010 06/07/2010 Depression Screening 08/03/2021 08/03/2020 CKD PHOS USE SMARTSET 94215 01/06/202212/12, 05/28/2020, 04/03/2019, Additional history exists Diabetic Foot Exam 02/08/2023 02/08/2022, 0 05/28/2020, 05/17/2019, Additional history exists DIABETES-EYE EXAM 03/15/2023 03/15/2022, , 09/26/2019, Additional history exists HbA1c 05/17/2023 11/16/2022, 11/12, 04/28/2021, Additional history exists Albumin/Creatinine Ratio 11/17/2023 023, 03/29/2022, 01/06/2021, Additional history exists CKD HGB USE SMARTSET 84210 11/17/202311/16, 11/16/2022, 12/03/2021, Additional history exists DXA [...] chronicity documented in this encounter Care Teams Manager Water Relationship Specialty Start Date End Date Priyanka Falcon MD [address] [place] [address] [place] [address] PCP - General Family Medicine 01/04/19 documented as of this encounter
--- OUTSIDE RECORDS SUMMARY | 2023-02-21 00:37 | External Medical Summary | Summary of Care ---
Author Name Unknown Organization [facility] Address [address] [place] [address] Phone [phone] Care Team Providers Care Vascular Surgery Physician Name Role Phone Priyanka Falcon MD Primary Care Prov ider Reason for Visit * Reason Comments Outpatient Testing Encounter Details Date Type Department Care Team Description 11/21/2022 Laboratory Laboratory [address] [place] [address] [facility] Lab [address] [place] [address] Dyslipidemia, goal LDL below 70; Type 2 [...] Neuro complications (Please comment) Low 09/16/2009 Headaches Xypthmyx-Lzparclrg-Je 01/25/2011 Caused eye problems Neosporin 05/30/2003 rash [...] TABLET DAILY 1 Tab 0 1 Active RetrieveTOUCH ULTRASOFT LANCETS MISCIndications:DM type 2, goal A1c [...] FOR ITCHING 30 g 2 1 Active Inquisitive SystemsTouch Verio In Vitro Strip (Glucose Blood)Indications: Type 2 diabetes mellitus with hemoglobin A1c goal of less than 7.5% ([facility]) Use to test blood sugar once a day DX e11.9 100 Strip 3 2 Active Inquisitive SystemsTouch Verio Flex System w/Device KitIndications:Typ e 2 diabetes mellitus with hemoglobin A1c goal of less than 7.5% ([facility]) Use as directed . 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,PAF (paroxysmal atrial fibrillation) ([facility]) Take 4 mg (2 tablets) on [...] Tablet 1 3 Active OneTouch Delica Plus [id number] ns:Type 2 diabetes mellitus with hemoglobin A1c [...] NaeAndrey howard [address] [place] [address] 11/29/2022 Office Visit Nephrology Carlene Kendrick MD [address] [place] [address] 11/29/2022 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 [facility], [address] [place] [address] 12/08/2022 Office Visit Family Medicine Jessica Baugh PA-C [address] [place] [address] [place] [address] 01/19/2023 Office Visit Cardiology Cameron Becerra PA-C [address] [place] [address] 02/03/2023 Office Visit Orthopedic Surgery Celso Zayas MD [address] [place] [address] 02/24/2023 Office Visit Nephrology Radha Wyman PA-C [address] [place] [address] Pending Results Name Type Priority Associated Diagnoses [...] Screening 08/03/2021 08/03/2020 CKD PHOS USE SMARTSET 77279 01/06/202212/12, 05/28/2020, 04/03/2019, Additional history exists Diabetic Foot Exam 02/08/2023 02/08/2022, 0 05/28/2020, 05/17/2019, Additional history exists DIABETES-EYE EXAM 03/15/2023 03/15/2022, , 09/26/2019, Additional history exists HbA1c 05/17/2023 11/16/2022, 11/12, 04/28/2021, Additional history exists Albumin/Creatinine Ratio 11/17/2023 023, 03/29/2022, 01/06/2021, Additional history exists CKD HGB USE SMARTSET 53214 11/17/202311/16, 11/16/2022, 12/03/2021, Additional history exists DXA [...] chronicity documented in this encounter Care Teams Vascular Surgery Physician Relationship Specialty Start Date End Date Priyanka Falcon MD [address] [place] [address] [place] [address] PCP - General Family Medicine 01/04/19 documented as of this encounter
--- OUTSIDE RECORDS SUMMARY | 2023-02-21 00:38 | External Medical Summary | Summary of Care ---
Author Name Unknown Organization [facility] Address [address] [place] [address] Phone [phone] Care Team Providers Care Matrix Bath Attendant Name Role Phone Priyanka Falcon MD Primary Care Prov ider Reason for Visit * Reason Comments Outpatient Testing Encounter Details Date Type Department Care Team Description 11/21/2022 Laboratory Laboratory [address] [place] [phone] [facility] [address] [place] [address] Dyslipidemia, goal LDL below 70; Type 2 [...] Neuro complications (Please comment) Low 09/16/2009 Headaches Dnscecly-Tbjtukegh-Sw 01/25/2011 Caused eye problems Neosporin 05/30/2003 rash [...] TABLET DAILY 1 Tab 0 04/27/2010 Active Bandtastic.meTOUCH ULTRASOFT LANCETS MISCIndications:DM type 2, goal A1c [...] goal of less than 7.5% ([facility]) Use to test blood sugar once a day DX e11.9 100 Strip 3 05/14/2021 Active VaxxasTouch Verio Flex System w/Device KitIndications:Typ e 2 diabetes mellitus with hemoglobin A1c goal of less than 7.5% ([facility]) Use as directed . Use to test blood sugar Dx e11.9 1 Kit 0 05/14/2021 Active amLODIPine Besylate 5 MG Oral Tablet (Norvasc)Indicatio ns:Peripheral edema Take 0.5 Tablets by mouth in the morning. 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 Use to test blood sugar once a day DX e11.9 100 Each 3 09/10/2022 Active Gabapentin 100 MG Oral Capsule (Neurontin) Take 1 Capsule by mouth at bedtime. 30 Capsule 1 11/16/2022 Active Furosemide 40 MG Oral Tablet [...] Encounters Date Type Specialty Care Team Description 11/21/2022 Office Visit Nephrology Carlene Kendrick MD [address] [place] [address] Arrived 11/29/2022 Office Visit Pain Medicine Andrey Still DO [address] [place] [address] 11/29/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 [place] [address] 12/08/2022 Office Visit Family Medicine Jessica Baugh PA-C [address] [place] [address] [place] [address] 01/19/2023 Office Visit Cardiology Cameron Becerra PA-C [address] [place] [address] 02/03/2023 Office Visit Orthopedic Surgery Celso Zayas MD [address] [place] [address] Pending Results Name Type Priority Associated Diagnoses [...] Screening 08/03/2021 08/03/2020 CKD PHOS USE SMARTSET 48039 01/06/202212/12, 05/28/2020, 04/03/2019, Additional history exists Diabetic Foot Exam 02/08/2023 02/08/2022, 0 05/28/2020, 05/17/2019, Additional history exists DIABETES-EYE EXAM 03/15/2023 03/15/2022, , 09/26/2019, Additional history exists HbA1c 05/17/2023 11/16/2022, 11/12, 04/28/2021, Additional history exists Albumin/Creatinine Ratio 11/17/2023 023, 03/29/2022, 01/06/2021, Additional history exists CKD HGB USE SMARTSET 08222 11/17/202311/16, 11/16/2022, 12/03/2021, Additional history exists DXA [...] chronicity documented in this encounter Care Teams Matrix Bath Attendant Relationship Specialty Start Date End Date Priyanka Falcon MD [address] [place] [address] [place] [address] PCP - General Family Medicine 01/04/19 documented as of this encounter
--- OUTSIDE RECORDS SUMMARY | 2023-02-21 00:38 | External Medical Summary | Summary of Care ---
Author Name Unknown Organization [facility] Address [address] [place] [address] Phone [phone] Care Team Providers Care Field Crop Harvest Contractor Name Role Phone Priyanka Falcon MD Primary Care Prov ider Reason for Visit * Reason Comments Outpatient Testing Encounter Details Date Type Department Care Team Description 11/21/2022 Laboratory Laboratory [address] [place] [phone] [facility] Lab [address] [place] [address] Dyslipidemia, goal LDL below 70; Type 2 [...] Neuro complications (Please comment) Low 09/16/2009 Headaches Haugtdoq-Vfbojzzlg-Ta 01/25/2011 Caused eye problems Neosporin 05/30/2003 rash [...] TABLET DAILY 1 Tab 0 04/27/2010 Active PopdeemTOUCH ULTRASOFT LANCETS MISCIndications:DM type 2, goal A1c [...] DX e11.9 100 Strip 3 05/14/2021 Active AtterocorTouch Verio Flex System w/Device KitIndications:Typ e 2 diabetes mellitus with hemoglobin A1c goal of less than 7.5% ([facility]) Use as directed . Use to test blood sugar Dx e11.9 1 Kit 0 05/14/2021 Active amLODIPine Besylate 5 MG Oral Tablet (Norvasc)Indicatio ns:Peripheral edema Take 0.5 Tablets by mouth in the morning. 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,PAF [...] Tablet 1 09/08/2022 Active OneTouch Delica Plus [id number] ns:Type 2 diabetes mellitus with hemoglobin A1c [...] Carlene Kendrick MD [address] [place] [address] Arrived 11/29/2022 Office Visit Pain Medicine Andrey Still DO [address] [place] [address] 11/29/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 [place] [address] 12/08/2022 Office Visit Family Medicine Jessica Baugh PA-C [address] [place] [address] [place] [address] 01/19/2023 Office Visit Cardiology Cameron Becerra PA-C [address] [place] [address] 02/03/2023 Office Visit Orthopedic Surgery Celso Zayas MD [address] [place] [address] Pending Results Name Type Priority Associated Diagnoses [...] Screening 08/03/2021 08/03/2020 CKD PHOS USE SMARTSET 73466 01/06/202212/12, 05/28/2020, 04/03/2019, Additional history exists Diabetic Foot Exam 02/08/2023 02/08/2022, 0 05/28/2020, 05/17/2019, Additional history exists DIABETES-EYE EXAM 03/15/2023 03/15/2022, , 09/26/2019, Additional history exists HbA1c 05/17/2023 11/16/2022, 11/12, 04/28/2021, Additional history exists Albumin/Creatinine Ratio 11/17/2023 023, 03/29/2022, 01/06/2021, Additional history exists CKD HGB USE SMARTSET 55308 11/17/202311/16, 11/16/2022, 12/03/2021, Additional history exists DXA [...] documented in this encounter Care Teams Field Crop Harvest Contractor Relationship Specialty Start Date End Date Priyanka Falcon MD [address] [place] [address] [place] [address] PCP - General Family Medicine 01/04/19 documented as of this encounter
--- OUTSIDE RECORDS SUMMARY | 2023-02-21 00:38 | External Medical Summary | Summary of Care ---
Author Name Unknown Organization [facility] Address [address] [place] [address] Phone [phone] Care Team Providers Care Cigarette Machine Operator Name Role Phone Priyanka Falcon MD Primary Care Prov ider Reason for Visit * Reason Comments Outpatient Testing Encounter Details Date Type Department Care Team Description 11/21/2022 Laboratory Laboratory [address] [place] [phone] [facility] [address] [place] [address] Dyslipidemia, goal LDL below 70; Type 2 [...] Neuro complications (Please comment) Low 09/16/2009 Headaches Gvrgiqqf-Gnovfzwwh-Wn 01/25/2011 Caused eye problems Neosporin 05/30/2003 rash [...] TABLET DAILY 1 Tab 0 04/27/2010 Active CuponzoteTOUCH ULTRASOFT LANCETS MISCIndications:DM type 2, goal A1c [...] DX e11.9 100 Strip 3 05/14/2021 Active Hemenkiralik.comTouch Verio Flex System w/Device KitIndications:Typ e 2 diabetes mellitus with hemoglobin A1c goal of less than 7.5% ([facility]) Use as directed . Use to test blood sugar Dx e11.9 1 Kit 0 05/14/2021 Active amLODIPine Besylate 5 MG Oral Tablet (Norvasc)Indicatio ns:Peripheral edema Take 0.5 Tablets by mouth in the morning. 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,PAF (paroxysmal atrial [...] Tablet 1 09/08/2022 Active OneTouch Delica Plus Besyqu20BMpsqskofl ns:Type 2 diabetes mellitus with hemoglobin A1c [...] Carlene Kendrick MD [address] [place] [address] Arrived 11/29/2022 Office Visit Pain Medicine Andrey Still DO [address] [place] [address] 11/29/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 [place] [address] 12/08/2022 Office Visit Family Medicine Jessica Baugh PA-C [address] [place] [address] [place] [address] 01/19/2023 Office Visit Cardiology Cameron Becerra PA-C [address] [place] [address] 02/03/2023 Office Visit Orthopedic Surgery Celso Zayas MD [address] [place] [address] Pending Results Name Type Priority Associated Diagnoses [...] Screening 08/03/2021 08/03/2020 CKD PHOS USE SMARTSET 17439 01/06/202212/12, 05/28/2020, 04/03/2019, Additional history exists Diabetic Foot Exam 02/08/2023 02/08/2022, 0 05/28/2020, 05/17/2019, Additional history exists DIABETES-EYE EXAM 03/15/2023 03/15/2022, , 09/26/2019, Additional history exists HbA1c 05/17/2023 11/16/2022, 11/12, 04/28/2021, Additional history exists Albumin/Creatinine Ratio 11/17/2023 023, 03/29/2022, 01/06/2021, Additional history exists CKD HGB USE SMARTSET 07715 11/17/202311/16, 11/16/2022, 12/03/2021, Additional history exists DXA [...] chronicity documented in this encounter Care Teams Cigarette Machine Operator Relationship Specialty Start Date End Date Priyanka Falcon MD [address] [place] [address] [place] [address] PCP - General Family Medicine 01/04/19 documented as of this encounter
--- OUTSIDE RECORDS SUMMARY | 2023-02-21 00:38 | External Medical Summary | Summary of Care ---
Author Name Unknown Organization [facility] Address [address] [place] [address] Phone [phone] Care Team Providers Care Torch Brazer Name Role Phone Priyanka Falcon MD Primary Care Prov ider Reason for Visit * Reason Comments Outpatient Testing Encounter Details Date Type Department Care Team Description 11/21/2022 Laboratory Laboratory [address] [place] [phone] [facility] Lab [address] [place] [address] Dyslipidemia, goal LDL below 70; Type 2 [...] Neuro complications (Please comment) Low 09/16/2009 Headaches Vkmyvkbq-Qbzorelvu-Ak 01/25/2011 Caused eye problems Neosporin 05/30/2003 rash [...] TABLET DAILY 1 Tab 0 04/27/2010 Active Q1 LabsTOUCH ULTRASOFT LANCETS MISCIndications:DM type 2, goal A1c [...] DX e11.9 100 Strip 3 05/14/2021 Active Quark PharmaceuticalsTouch Verio Flex System w/Device KitIndications:Typ e 2 diabetes mellitus with hemoglobin A1c goal of less than 7.5% ([facility]) Use as directed . Use to test blood sugar Dx e11.9 1 Kit 0 05/14/2021 Active amLODIPine Besylate 5 MG Oral Tablet (Norvasc)Indicatio ns:Peripheral edema Take 0.5 Tablets by mouth in the morning. 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,PAF (paroxysmal atrial fibrillation) ([facility]) Take 4 mg (2 tablets) [...] Tablet 1 09/08/2022 Active OneTouch Delica Plus [id number] ns:Type 2 diabetes mellitus with hemoglobin A1c [...] Carlene Kendrick MD [address] [place] [address] Arrived 11/29/2022 Office Visit Pain Medicine Andrey Still DO [address] [place] [address] 11/29/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 [place] [address] 12/08/2022 Office Visit Family Medicine Jessica Baugh PA-C [address] [place] [address] [place] [address] 01/19/2023 Office Visit Cardiology Cameron Becerra PA-C [address] [place] [address] 02/03/2023 Office Visit Orthopedic Surgery Celso Zayas MD [address] [place] [address] Pending Results Name Type Priority Associated Diagnoses [...] Screening 08/03/2021 08/03/2020 CKD PHOS USE SMARTSET 56037 01/06/202212/12, 05/28/2020, 04/03/2019, Additional history exists Diabetic Foot Exam 02/08/2023 02/08/2022, 0 05/28/2020, 05/17/2019, Additional history exists DIABETES-EYE EXAM 03/15/2023 03/15/2022, , 09/26/2019, Additional history exists HbA1c 05/17/2023 11/16/2022, 11/12, 04/28/2021, Additional history exists Albumin/Creatinine Ratio 11/17/2023 023, 03/29/2022, 01/06/2021, Additional history exists CKD HGB USE SMARTSET 90941 11/17/202311/16, 11/16/2022, 12/03/2021, Additional history exists DXA [...] chronicity documented in this encounter Care Teams Torch Brazer Relationship Specialty Start Date End Date Priyanka Falcon MD [address] [place] [address] [place] [address] PCP - General Family Medicine 01/04/19 documented as of this encounter
--- OUTSIDE RECORDS SUMMARY | 2023-02-21 00:38 | External Medical Summary | Summary of Care ---
Author Name Unknown Organization [facility] Address [address] [place] [address] Phone [phone] Care Team Providers Care Mat Sewer Name Role Phone Priyanka Falcon MD Primary Care Prov ider Reason for Visit * Reason Comments Outpatient Testing Encounter Details Date Type Department Care Team Description 11/21/2022 Laboratory Laboratory [address] [place] [phone] [facility] Lab [address] [place] [address] Dyslipidemia, goal LDL below 70; Type 2 [...] Neuro complications (Please comment) Low 09/16/2009 Headaches Ymgrnmqq-Nhfbllthd-Tb 01/25/2011 Caused eye problems Neosporin 05/30/2003 rash [...] TABLET DAILY 1 Tab 0 04/27/2010 Active CluepediaTOUCH ULTRASOFT LANCETS MISCIndications:DM type 2, goal A1c [...] goal of less than 7.5% ([facility]) Use to test blood sugar once a day DX e11.9 100 Strip 3 05/14/2021 Active OneBreathTouch Verio Flex System w/Device KitIndications:Typ e 2 diabetes mellitus with hemoglobin A1c goal of less than 7.5% ([facility]) Use as directed . Use to test blood sugar Dx e11.9 1 Kit 0 05/14/2021 Active amLODIPine Besylate 5 MG Oral Tablet (Norvasc)Indicatio ns:Peripheral edema Take 0.5 Tablets by mouth in the morning. 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,PAF (paroxysmal atrial fibrillation) ([facility]) Take 4 mg (2 tablets) on Wednesdays; [...] Tablet 1 09/08/2022 Active OneTouch Delica Plus [id number] ns:Type 2 diabetes mellitus with hemoglobin A1c [...] Carlene Kendrick MD [address] [place] [address] Arrived 11/29/2022 Office Visit Pain Medicine Andrey Still DO [address] [place] [address] 11/29/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 [place] [address] 12/08/2022 Office Visit Family Medicine Jessica Baugh PA-C [address] [place] [address] [place] [address] 01/19/2023 Office Visit Cardiology Cameron Becerra PA-C [address] [place] [address] 02/03/2023 Office Visit Orthopedic Surgery Celso Zayas MD [address] [place] [address] Pending Results Name Type Priority Associated Diagnoses [...] Screening 08/03/2021 08/03/2020 CKD PHOS USE SMARTSET 88794 01/06/202212/12, 05/28/2020, 04/03/2019, Additional history exists Diabetic Foot Exam 02/08/2023 02/08/2022, 0 05/28/2020, 05/17/2019, Additional history exists DIABETES-EYE EXAM 03/15/2023 03/15/2022, , 09/26/2019, Additional history exists HbA1c 05/17/2023 11/16/2022, 11/12, 04/28/2021, Additional history exists Albumin/Creatinine Ratio 11/17/2023 023, 03/29/2022, 01/06/2021, Additional history exists CKD HGB USE SMARTSET 14049 11/17/202311/16, 11/16/2022, 12/03/2021, Additional history exists DXA [...] chronicity documented in this encounter Care Teams Mat Sewer Relationship Specialty Start Date End Date Priyanka Falcon MD [address] [place] [address] [place] [address] PCP - General Family Medicine 01/04/19 documented as of this encounter
--- OUTSIDE RECORDS SUMMARY | 2023-02-21 00:39 | External Medical Summary ---
Author Name Unknown Address Unknown Organization K01[place] [place] [address] [facility] [address] Laboratory Report Ordering Provider Test Date Status JARAD MENARD 11/21/2022 14:04:14 Final Observation Date Value Abnormality Reference (Units ) Status BUN 11/21/2022 14:04:14 43 Above high normal 6-20 (mg/dL) Final Creatinine 11/21/2022 14:04:14 1.5 Above high normal 0.5-1.0 (mg/dL) Final Glomerular filtration rate/1.73 sq M.predicted [Volume Rate/Area] in Serum, Plasma or Blood by Creatinine-based formula (CKD-EPI) 11/21/2022 14:04:14 34 Below low normal >=60 (mL/min) Final eGFR is calculated based on the CKD-EPI 2020 equation SODIUM 11/21/2022 14:04:14 140 135-146 (m mol/L) Final Potassium 11/21/2022 14:04:14 4.4 3.5-5.1 (m mol/L) Final Cl 11/21/2022 14:04:14 100 98-107 (mm ol/L) Final CO2 11/21/2022 14:04:14 23 22-32 (mmo l/L) Final Anion gap 11/21/2022 14:04:14 17 Above high normal 7- 15 (mmol/L) Final Glucose 11/21/2022 14:04:14 135 Above high normal 70 -120 (mg/dL) Final Albumin 11/21/2022 14:04:14 4.1 3.8-5.0 (g /dL) Final AST (Aspartate aminotransferase) 11/21/2022 14:04:14 27 10-35 (U/L) Fin al Alk Phos 11/21/2022 14:04:14 82 35-130 (U/ L) Final Bilirubin, Total 11/21/2022 14:04:14 0.4 <=1 .2 (mg/dL) Final Calcium 11/21/2022 14:04:14 9.2 8.4-10.2 ( mg/dL) Final Protein 11/21/2022 14:04:14 7.0 6.0-8.3 (g /dL) Final ALT (Alanine aminotransferase) 11/21/2022 14:04:14 26 10-35 (U/L) Manjit gonzalez Performing Location [facility] [place] [facility] [address] [facility] [address]
--- OUTSIDE RECORDS SUMMARY | 2023-02-21 00:39 | External Medical Summary | Summary of Care ---
Author Name Unknown Organization [facility] Address [address] [place] [address] Phone [phone] Care Team Providers Care Pipe And Tank Fabricator Name Role Phone Priyanka Falcon MD Primary Care Prov ider Reason for Visit * Reason Comments eRx-Medication Refill Encounter Details Date Type Department Care Team Description 11/19/2022 Refill Cardiology, [facility] [address] [place] [id number] Viktor Arteaga PA-C [address] [place] [address] Dyslipidemia, goal LDL below 70* Allergies Active Allergy Reactions Severity Noted Date Comments Naproxen Sodium Bleeding High 12/03/2009 Hs of GI bleed Aspirin Bleeding High 12/03/2009 Doxycycline Neuro complications (Please comment) Medium 10/23/2010 Hallucinations Ibuprofen Bleeding High 12/03/2009 Hx of GI bleed Nitrofurantoin Monohydrate Macrocrystals Neuro complications (Please comment) Low 09/16/2009 Headaches Thljsouf-Rteevyrst-Oc 01/25/2011 Caused eye problems Neosporin 05/30/2003 rash [...] A1c goal of less than 7.5% ([facility]) Use to test blood sugar once a day DX e11.9 100 Strip 3 05/15/19 22 Active OneTouch Verio Flex System w/Device KitIndications:Ty pe 2 diabetes mellitus with hemoglobin A1c goal of less than 7.5% ([facility]) Use as directed . Use to test blood sugar Dx e11.9 1 Kit 0 05/15/19 22 Active amLODIPine Besylate 5 MG Oral Tablet (Norvasc)Indicati ons:Peripheral edema Take 0.5 Tablets by mouth in the morning. 90 Tablet 3 09/22/19 22 Active OneTouch Ultra In Vitro Strip (Glucose Blood)Indications :Type 2 diabetes mellitus with hemoglobin A1c goal of less than 7.0% ([facility]) USE TO TEST ONCE PER DAY 100 Strip 3 10/10/19 22 Active Warfarin Sodium 2 MG Oral Tablet (Coumadin)Indicat ions:Atrial flutter, unspecified type ([facility]),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 management encounter,longterm current use of anticoagulant therapy,PAF (paroxysmal atrial fibrillation) ([facility]) Take 4 mg (2 tablets) on Wednesdays; [...] 1 09/09/19 23 Active OneTouch Delica Plus [id number] ons:Type 2 diabetes mellitus with hemoglobin A1c [...] MORNING 90 Tablet 3 11/22/19 23 Active Atorvastatin Calcium 80 MG Oral Tablet (Lipitor) [...] Telephone Encounter - Viktor Arteaga PA-C - 11/21/2022 10:12 AM EDTSigned Prescriptions: Disp Refills Atorvastatin Calcium 80 MG Oral Tablet (Li*90 Tab*3 Sig: TAKE 1 TABLET BY MOUTH EVERY DAY IN THE MORNING Authorizing Provider: VIKTOR ARTEAGA * Telephone Encounter - LUIS MIGUEL Walsh - 11/21/2022 8:44 AM EDTPending Prescriptions: Disp Refills Atorvastatin Calcium 80 MG Oral Tablet (Li*90 Tab*3 Sig: TAKE 1 TABLET BY MOUTH EVERY DAY IN THE MORNING * Telephone Encounter - LUIS MIGUEL Walsh - 11/21/2022 8:44 AM EDT Did you pend patient's preferred pharmacy and medication before forwarding?yes Pharmacy: [id number] Pending Prescriptions: Disp Refills Atorvastatin Calcium 80 MG Oral Tablet (L*90 Tab*3 Sig: TAKE 1 TABLET BY MOUTH EVERY DAY IN THE MORNING Last Visit: Visit date not found (in office), Visit date not found (telemedicine) Next Visit: Visit date not found If no future appointments scheduled, and last appointment is greater than a year ago, please schedule patient for a follow-up appointment Last date the medication was ordered: 12-06-2021 Is this request for a controlled substance?No [...] Labs: Lab Results Component Value Date/Time CREAT 1.3 (H) 11/16/2022 03:14 PM CREAT 1.1 (H) 01/29/2020 12:24 PM POTASSIUM 4.6 11/16/2022 03:14 PM POTASSIUM 5.1 01/29/2020 12:24 PM TSH 3.08 11/16/2022 03:14 PM TSH 3.100 12/29/2018 12:00 AM TSH 3.67 05/28/2018 02:35 PM LDLCALC 91 11/16/2022 03:14 PM LDLCALC 88 08/22/2019 12:30 PM LDLDIRECT 91 12/03/2021 09:52 AM LDLDIRECT 102 08/22/2019 12:30 PM LDLDIRECT NOT APPLICABLE 08/22/2019 12:30 PM ALT 23 11/16/2022 03:14 PM ALT 25 04/03/2019 10:51 AM HGBA1C 7.9 (H) 11/16/2022 03:14 PM HGBA1C 7.7 (H) 08/22/2019 12:30 PM documented in this encounter Plan of Treatment Upcoming Encounters Date Type Specialty Care Team Description 11/29/2022 Office Visit Pain Medicine Andrey Still DO [address] [place] [address] 11/29/2022 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 Pharmacy [place], [address] [place] [address] 12/08/2022 Office Visit Family Medicine Jessica Baugh PA-C [address] [place] [address] [place] [phone] 01/19/2023 Office Visit Cardiology Viktor Arteaga PA-C [address] [place] [phone] 02/03/2023 Office Visit Orthopedic Surgery Celso Zayas MD [address] [place] [address] Health Maintenance Due Date Last Done Comments Zoster Vaccines (2 of 3) 08/02/2010 06/07/2010 Depression Screening 08/03/2021 08/03/2020 CKD PHOS USE SMARTSET 77512 01/06/202212/12, 05/28/2020, 04/03/2019, Additional history exists Diabetic Foot Exam 02/08/2023 02/08/2022, 0 05/28/2020, 05/17/2019, Additional history exists DIABETES-EYE EXAM 03/15/2023 03/15/2022, , 09/26/2019, Additional history exists HbA1c 05/17/2023 11/16/2022, 11/12, 04/28/2021, Additional history exists Albumin/Creatinine Ratio 11/17/2023 023, 03/29/2022, 01/06/2021, Additional history exists CKD HGB USE SMARTSET 53071 11/17/202311/16, 11/16/2022, 12/03/2021, Additional history exists DXA [...] Visit Diagnoses Diagnosis Dyslipidemia, goal LDL below 70- Primary Other and unspecified hyperlipidemia documented in this encounter Care Teams Pipe And Tank Fabricator Relationship Specialty Start Date End Date Priyanka Falcon MD [address] [place] [address] [place] [address] PCP - General Family Medicine 01/04/19 documented as of this encounter
--- OUTSIDE RECORDS SUMMARY | 2023-02-21 00:39 | External Medical Summary | Summary of Care ---
Author Name Unknown Organization [facility] Address [address] [place] [address] Phone [phone] Care Team Providers Care Cyber Systems Engineer Name Role Phone Priyanka Falcon MD Primary Care Prov ider Reason for Visit * Reason Comments Outpatient Testing Encounter Details Date Type Department Care Team Description 11/21/2022 Laboratory Laboratory [address] [place] [phone] [facility] [address] [place] [address] Dyslipidemia, goal LDL below 70; Type 2 [...] Neuro complications (Please comment) Low 09/16/2009 Headaches Gvxwhmbg-Dkbqokbge-Te 01/25/2011 Caused eye problems Neosporin 05/30/2003 rash [...] TABLET DAILY 1 Tab 0 04/27/2010 Active WolongeTOUCH ULTRASOFT LANCETS MISCIndications:DM type 2, goal A1c [...] goal of less than 7.5% ([facility]) Use to test blood sugar once a day DX e11.9 100 Strip 3 05/14/2021 Active Narrative ScienceTouch Verio Flex System w/Device KitIndications:Typ e 2 diabetes mellitus with hemoglobin A1c goal of less than 7.5% ([facility]) Use as directed . Use to test blood sugar Dx e11.9 1 Kit 0 05/14/2021 Active amLODIPine Besylate 5 MG Oral Tablet (Norvasc)Indicatio ns:Peripheral edema Take 0.5 Tablets by mouth in the morning. 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,PAF (paroxysmal atrial fibrillation) ([facility]) Take 4 mg (2 tablets) on [...] Tablet 1 09/08/2022 Active OneTouch Delica Plus [id number] ns:Type 2 diabetes mellitus with hemoglobin A1c [...] Visit Nephrology Carlene Kendrick MD [address] [place] [address] Arrived 11/29/2022 Office Visit Pain Medicine Andrey Still DO [address] [place] [address] 11/29/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 [place] [address] 12/08/2022 Office Visit Family Medicine Jessica Baugh PA-C [address] [place] [address] [place] [address] 01/19/2023 Office Visit Cardiology Cameron Becerra PA-C [address] [place] [address] 02/03/2023 Office Visit Orthopedic Surgery Celso Zayas MD [address] [place] [phone] Scheduled Orders Name Type Priority Associated Diagnoses Orde r Schedule PHOSPHORUS Lab Routine Type 2 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 disease, without long-term current use of insulin (HCC) Ordered: 11/21/2022 Health Maintenance Due Date Last Done Comments Zoster Vaccines (2 of 3) 08/02/2010 06/07/2010 Depression Screening 08/03/2021 08/03/2020 CKD PHOS USE SMARTSET 61102 01/06/202212/12, 05/28/2020, 04/03/2019, Additional history exists Diabetic Foot Exam 02/08/2023 02/08/2022, 0 05/28/2020, 05/17/2019, Additional history exists DIABETES-EYE EXAM 03/15/2023 03/15/2022, , 09/26/2019, Additional history exists HbA1c 05/17/2023 11/16/2022, 11/12, 04/28/2021, Additional history exists Albumin/Creatinine Ratio 11/17/2023 023, 03/29/2022, 01/06/2021, Additional history exists CKD HGB USE SMARTSET 85851 11/17/202311/16, 11/16/2022, 12/03/2021, Additional history exists DXA [...] chronicity documented in this encounter Care Teams Cyber Systems Engineer Relationship Specialty Start Date End Date Priyanka Falcon MD [address] [place] [address] [place] [address] PCP - General Family Medicine 01/04/19 documented as of this encounter
--- OUTSIDE RECORDS SUMMARY | 2023-02-21 00:39 | External Medical Summary ---
Author Name Unknown Address Unknown Organization K01:[facility] [address] [place] [address] Laboratory Report Ordering Provider Test Date Status SAILAJA,JARAD DOWD 11/21/2022 14:04:14 Final Observation Date Value Abnormality Reference (Units ) Status Phosphate 11/21/2022 14:04:14 4.7 2.5-4.8 (m g/dL) Final Performing Location [facility] - [address] [place] [address]
--- OUTSIDE RECORDS SUMMARY | 2023-02-21 00:39 | External Medical Summary ---
Author Name Unknown Address Unknown Organization K01:LABORATORY [facility] - [address] [place] [address] Laboratory Report Ordering Provider Test Date Status TERRANCE ARREOLA 11/21/2022 14:04:14 Final Observation Date Value Abnormality Reference (Units ) Status Parathyrin.intact [Mass/volume] in Serum or Plasma 11/21/2022 14:04:14 108 Above high normal 15-65 (pg/mL) Final Performing Location LABORATORY [facility] - [address] [place] [address]
--- OUTSIDE RECORDS SUMMARY | 2023-02-21 00:39 | External Medical Summary | Summary of Care ---
Author Name Unknown Organization [facility] Address [address] [place] [address] Phone [phone] Care Team Providers Care Assurance Analyst Name Role Phone Priyanka Falcon MD Primary Care Prov ider Reason for Visit * Reason Comments Outpatient Testing Encounter Details Date Type Department Care Team Description 11/21/2022 Laboratory Laboratory [address] [place] [phone] [facility] [address] [place] [address] Dyslipidemia, goal LDL below 70; Type 2 [...] Neuro complications (Please comment) Low 09/16/2009 Headaches Rafbpqsu-Nfqyujutm-Nu 01/25/2011 Caused eye problems Neosporin 05/30/2003 rash [...] TABLET DAILY 1 Tab 0 04/27/2010 Active Ascendant DxTOUCH ULTRASOFT LANCETS MISCIndications:DM type 2, goal A1c [...] DX e11.9 100 Strip 3 05/14/2021 Active PinocularTouch Verio Flex System w/Device KitIndications:Typ e 2 diabetes mellitus with hemoglobin A1c goal of less than 7.5% ([facility]) Use as directed . Use to test blood sugar Dx e11.9 1 Kit 0 05/14/2021 Active amLODIPine Besylate 5 MG Oral Tablet (Norvasc)Indicatio ns:Peripheral edema Take 0.5 Tablets by mouth in the morning. 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 [...] Tablet 1 09/08/2022 Active OneTouch Delica Plus [id number] ns:Type 2 diabetes mellitus with hemoglobin A1c [...] Carlene Kendrick MD [address] [place] [address] Arrived 11/29/2022 Office Visit Pain Medicine Andrey Still DO [address] [place] [address] 11/29/2022 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 [facility], [address] [place] [address] 12/08/2022 Office Visit Family Medicine Jessica Baugh PA-C [address] [place] [address] [place] [address] 01/19/2023 Office Visit Cardiology Cameron Becerra PA-C [address] [place] [address] 02/03/2023 Office Visit Orthopedic Surgery Celso Zayas MD [address] [place] [phone] Pending Results Name Type Priority Associated Diagnoses Date /Time LIPID PANEL WITH DIRECT LDL IF TG IS HIGH Lab Routine Dyslipidemia, goal LDL below 70 11/21/2022 11:44 AM EDT COMPREHENSIVE METABOLIC PANEL Lab Routine Bilateral low back pain without sciatica, unspecified chronicity 11/21/2022 11:44 AM EDT PHOSPHORUS Lab Routine Type 2 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 disease, without long-term current use of insulin (HCC) 11/21/2022 11:44 AM EDT Health Maintenance Due Date Last Done Comments Zoster Vaccines (2 of 3) 08/02/2010 06/07/2010 Depression Screening 08/03/2021 08/03/2020 CKD PHOS USE SMARTSET 74144 01/06/202212/12, 05/28/2020, 04/03/2019, Additional history exists Diabetic Foot Exam 02/08/2023 02/08/2022, 0 05/28/2020, 05/17/2019, Additional history exists DIABETES-EYE EXAM 03/15/2023 03/15/2022, , 09/26/2019, Additional history exists HbA1c 05/17/2023 11/16/2022, 11/12, 04/28/2021, Additional history exists Albumin/Creatinine Ratio 11/17/2023 023, 03/29/2022, 01/06/2021, Additional history exists CKD HGB USE SMARTSET 47426 11/17/202311/16, 11/16/2022, 12/03/2021, Additional history exists DXA [...] chronicity documented in this encounter Care Teams Assurance Analyst Relationship Specialty Start Date End Date Priyanka Falcon MD [address] [place] [address] [place] [phone] PCP - General Family Medicine 01/04/19 documented as of this encounter
--- OUTSIDE RECORDS SUMMARY | 2023-02-21 00:40 | External Medical Summary ---
Author Name Unknown Address Unknown Organization K01:[facility] [place] [address] [facility] [address] Laboratory Report Ordering Provider Test Date Status FRAN [place]ELSEY 11/16/2022 15:14:21 Final Observation Date Value Abnormality Reference (Units ) Status BUN 11/16/2022 15:14:21 26 Above high normal 6-20 (mg/dL) Final Creatinine 11/16/2022 15:14:21 1.3 Above high normal 0.5-1.0 (mg/dL) Final Glomerular filtration rate/1.73 sq M.predicted [Volume Rate/Area] in Serum, Plasma or Blood by Creatinine-based formula (CKD-EPI) 11/16/2022 15:14:21 41 Below low normal >=60 (mL/min) Final eGFR is calculated based on the CKD-EPI 2020 equation SODIUM 11/16/2022 15:14:21 140 135-146 (m mol/L) Final Potassium 11/16/2022 15:14:21 4.6 3.5-5.1 (m mol/L) Final Cl 11/16/2022 15:14:21 103 98-107 (mm ol/L) Final CO2 11/16/2022 15:14:21 25 22-32 (mmo l/L) Final Anion gap 11/16/2022 15:14:21 12 7-15 (mmol /L) Final Glucose 11/16/2022 15:14:21 131 Above high normal 70 -120 (mg/dL) Final Albumin 11/16/2022 15:14:21 4.2 3.8-5.0 (g /dL) Final AST (Aspartate aminotransferase) 11/16/2022 15:14:21 19 10-35 (U/L) Fin al Alk Phos 11/16/2022 15:14:21 79 35-130 (U/ L) Final Bilirubin, Total 11/16/2022 15:14:21 0.4 <=1 .2 (mg/dL) Final Calcium 11/16/2022 15:14:21 9.2 8.4-10.2 ( mg/dL) Final Protein 11/16/2022 15:14:21 6.5 6.0-8.3 (g /dL) Final ALT (Alanine aminotransferase) 11/16/2022 15:14:21 23 10-35 (U/L) Manjit gonzalez Performing Location [facility] [place] [address] [facility] [address]
--- OUTSIDE RECORDS SUMMARY | 2023-02-21 00:40 | External Medical Summary | Summary of Care ---
Author Name Unknown Organization [facility] Address [address] [place] [address] Phone [phone] Care Team Providers Care Lap Cutter Truer Operator Name Role Phone Priyanka Falcon MD Primary Care Prov ider Reason for Referral * Medication Prior Authorization - Pending Review Specialty Diagnoses / Procedures Referred By Contac t Referred To Contact Diagnoses Bilateral low back pain without sciatica, unspecified chronicity Priyanka Falcon MD [address] [place] [address] [place] [phone] Referral ID Status Reason Start Date Expiration Date V isits Requested Visits Authorized [id number] Pending Review [phone] Reason for Visit * Reason Onset Date Comments Advice 11/18/2022 Encounter Details Date Type Department Care Team Description 11/18/2022 Telephone Family Medicine [address] [place] [address] Jessica Baugh PA-C [address] [place] [address] [place] [address] Advice Allergies Active Allergy Reactions Severity Noted Date Comments Naproxen Sodium Bleeding High 12/03/2009 Hs of GI bleed Aspirin Bleeding High 12/03/2009 Doxycycline Neuro complications (Please comment) Medium 10/23/2010 Hallucinations Ibuprofen Bleeding High 12/03/2009 Hx of GI bleed Nitrofurantoin Monohydrate Macrocrystals Neuro complications (Please comment) Low 09/16/2009 Headaches Mtewjgnx-Utspnznjg-Ys 01/25/2011 Caused eye problems Neosporin 05/30/2003 rash Sulfa Antibiotics 05/11/2002 nausea & vomiting Tramadol Hcl Unknown 12/03/2009 Triamterene 11/16/2022 ulcers documented as of this encounter (statuses as of 11/18/2022) Medications Medication Sig Dispensed Refills Start Date End Date Status ASPIRIN 81 MG PO TABS None Entered 0 Active [facility] VITAMIN B12 1000 MCG PO TABSIndications:Vi tamin B deficiency 1 TABLET DAILY 1 Tab 0 04/27/2010 Active ONETOUCH ULTRASOFT LANCETS MISCIndications:DM type 2, [...] the morning. 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 90 Tablet 3 12/06/2021 Active Metoprolol Succinate ER 100 MG Oral [...] goal of less than 7.5% ([facility]) TAKE 1 TABLET BY MOUTH DAILY [...] Tablet 1 09/08/2022 Active OneTouch Delica Plus [id number] ns:Type 2 diabetes mellitus with hemoglobin A1c [...] for 5 days. 10 Capsule 0 11/17/2022 Active HYDROcodone-Acetam inophen 5-325 MG Oral TabletIndications: Bilateral low back pain without sciatica, unspecified chronicity Take 1 Tablet by mouth 2 times a day as needed for Pain, Severe. 30 Tablet 0 11/18/2022 Active documented as of this encounter (statuses as of 11/18/2022) Active Problems Problem Noted Date Typical atrial [...] as of this encounter (statuses as of 11/18/2022) Resolved Problems Problem Noted Date Resolved Date [...] prior appointment. HTN, goal below 140/90 06/18/2014 11/30/201 6 Hypertension goal BP (blood pressure) < [...] as of this encounter (statuses as of 11/18/2022) Immunizations Name Administration Dates Next Due COVID-19 [...] Still DO [address] [place] [phone] 11/29/2022 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 [facility], [address] [place] [address] 12/08/2022 Office Visit Family Medicine Jessica Baugh PA-C [address] [place] [address] [place] [address] 01/19/2023 Office Visit Cardiology Cameron Becerra PA-C [address] [place] [address] 02/03/2023 Office Visit Orthopedic Surgery Celso Zayas MD [address] [place] [address] Scheduled Orders Name Type Priority Associated Diagnoses Orde r Schedule COMPREHENSIVE METABOLIC PANEL Lab Routine Bilateral low back pain without sciatica, unspecified chronicity Expected: 11/25/2022 (Approximate), Expires: 11/18/2023 Health Maintenance Due Date Last Done Comments Zoster Vaccines (2 of 3) 08/02/2010 06/07/2010 Depression Screening 08/03/2021 08/03/2020 CKD PHOS USE SMARTSET 38050 01/06/202212/12, 05/28/2020, 04/03/2019, Additional history exists Diabetic Foot Exam 02/08/2023 02/08/2022, 0 05/28/2020, 05/17/2019, Additional history exists DIABETES-EYE EXAM 03/15/2023 03/15/2022, , 09/26/2019, Additional history exists HbA1c 05/17/2023 11/16/2022, 11/12, 04/28/2021, Additional history exists Albumin/Creatinine Ratio 11/17/2023 023, 03/29/2022, 01/06/2021, Additional history exists CKD HGB USE SMARTSET 95823 11/17/202311/16, 11/16/2022, 12/03/2021, Additional history exists DXA [...] as of this encounter Visit Diagnoses Diagnosis Bilateral low back pain without sciatica, unspecified chronicity- Primary documented in this encounter Care Teams Lap Cutter Truer Operator Relationship Specialty Start Date End Date Priyanka Falcon MD [address] [place] [address] [place] [address] PCP - General Family Medicine 01/04/19 documented as of this encounter
--- OUTSIDE RECORDS SUMMARY | 2023-02-21 00:40 | External Medical Summary ---
Author Name Unknown Address Unknown Organization K01:[facility] [place] [address] [place] [address] Laboratory Report Ordering Provider Test Date Status LAUREFRAN 11/16/2022 15:14:21 Final Exclude Heart Failure: <300 pg/mL
Diagnose Heart Failure:
Age <50 yr: >450 pg/mL
50-75 yr: >900 pg/mL
>75 yr: >1800 pg/mL
GFR is 30-59 mL/min: >1200 pg/mL or Age- adjusted values
GFR <30 mL/min: do not use, not reliable

Prognostic threshold: 1000 pg/mL Observation Date Value Abnormality Reference (Units ) Status BNP, Pro-hormone 11/16/2022 15:14:21 2689 Above high no rmal <300 (pg/mL) Final Performing Location [facility] [address] [place] [address]
--- OUTSIDE RECORDS SUMMARY | 2023-02-21 00:40 | External Medical Summary ---
Author Name Unknown Address Unknown Organization K01:[facility] [place] [address] [facility] [address] Laboratory Report Ordering Provider Test Date Status FRAN KELSEY 11/16/2022 15:14:21 Final Observation Date Value Abnormality Reference (Units ) Status WBC, Total 11/16/2022 15:14:21 7.45 4.00-10.8 0 (K/uL) Final RBC 11/16/2022 15:14:21 3.85 3.85-5.15 (M/uL) Final Hemoglobin 11/16/2022 15:14:21 11.1 Below low normal 12 .0-15.3 (g/dL) Final Anemia reflex testing trigge rs on a HGB < 12.0 for Females and HGB < 13.0 for Males in accordance with the WHO Anemia Guidelines
Anemia reflex testing triggers on a HGB < 12.0 for Females and HGB < 13.0 for Males in accordance with the WHO Anemia Guidelines HCT 11/16/2022 15:14:21 36.6 36.0-45.2 (%) Final MCV 11/16/2022 15:14:21 95.1 81.5-97.5 (fL) Final MCH 11/16/2022 15:14:21 28.8 27.0-34.0 (pg) Final MCHC 11/16/2022 15:14:21 30.3 32.0-36.0 (g/dL) Final RDW 11/16/2022 15:14:21 15.1 11.5-15.5 (%) Final Platelets 11/16/2022 15:14:21 268 140-400 (K /uL) Final MPV 11/16/2022 15:14:21 10.8 6.6-11.1 ( fL) Final Nucleated erythrocytes/100 leukocytes [Ratio] in Blood by Automated count 11/16/2022 15:14:21 0 <=0 (/100 WBCs) Fi nal Performing Location [facility] - [address] [facility] [address]
--- OUTSIDE RECORDS SUMMARY | 2023-02-21 00:40 | External Medical Summary | Summary of Care ---
Author Name Unknown Organization [facility] Address [address] [place] [address] Phone [phone] Care Team Providers Care Office Assistant Name Role Phone Priyanka Falcon MD Primary Care Prov ider Reason for Visit * Reason Comments Outpatient Testing Encounter Details Date Type Department Care Team Description 11/16/2022 Laboratory Laboratory [address] [place] [id number] [facility] [address] [place] [id number] DYSLIPIDEMIA, GOAL LDL BELOW 100; Type 2 diabetes mellitus with hemoglobin A1c goal of less than 7.5% ([facility]); Anemia due to stage 3a chronic kidney disease; Bilateral edema of lower extremity; Typical atrial flutter ([facility]); Subclinical hypothyroidism; Hypertensive kidney disease with stage 3a chronic kidney disease; Urinary frequency Allergies Active Allergy Reactions Severity Noted Date Comments Naproxen Sodium Bleeding High 12/03/2009 Hs of GI bleed Aspirin Bleeding High 12/03/2009 Doxycycline Neuro complications (Please comment) Medium 10/23/2010 Hallucinations Ibuprofen Bleeding High 12/03/2009 Hx of GI bleed Nitrofurantoin Monohydrate Macrocrystals Neuro complications (Please comment) Low 09/16/2009 Headaches Voqrypxl-Xabxokurc-Ej 01/25/2011 Caused eye problems Neosporin 05/30/2003 rash Sulfa Antibiotics 05/11/2002 nausea & vomiting Tramadol Hcl Unknown 12/03/2009 Triamterene 11/16/2022 ulcers documented as of this encounter (statuses as of 11/16/2022) Medications Medication Sig Dispensed Refills Start Date [...] hemoglobin A1c goal of less than 7.5% ([facility]) Use to test blood sugar once a day DX e11.9 100 Strip 3 05/14/2021 Active ScaleGridTouch Verio Flex System w/Device KitIndications:Typ e 2 diabetes mellitus with hemoglobin A1c goal of less than 7.5% ([facility]) Use as directed . Use to test blood sugar Dx e11.9 1 Kit 0 05/14/2021 Active amLODIPine Besylate 5 MG Oral Tablet (Norvasc)Indicatio ns:Peripheral edema Take 0.5 Tablets by mouth in the morning. 90 Tablet 3 09/21/2021 Active OneTouch Ultra In Vitro Strip (Glucose Blood)Indications: Type 2 diabetes mellitus with hemoglobin A1c goal of less than 7.0% ([facility]) USE TO TEST ONCE PER DAY 100 Strip 3 10/09/2021 Active Warfarin Sodium 2 MG Oral Tablet (Coumadin)Indicati ons:Atrial flutter, unspecified type ([facility]),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,longterm current use of anticoagulant therapy,PAF (paroxysmal atrial fibrillation) ([facility]) Take 4 mg (2 tablets) on Wednesdays; [...] Tablet 1 09/08/2022 Active OneTouch Delica Plus [id number] ns:Type 2 diabetes mellitus with hemoglobin A1c goal of less than 7.5% (HCC) Use as directed. Use to test blood sugar once a day DX e11.9 100 Each 3 09/10/2022 Active Gabapentin 100 MG Oral Capsule (Neurontin) Take 1 Capsule by mouth at bedtime. 30 Capsule 1 11/16/2022 Active documented as of this encounter (statuses as of 11/16/2022) Active Problems Problem Noted Date Typical atrial [...] as of this encounter (statuses as of 11/16/2022) Resolved Problems Problem Noted Date Resolved Date [...] as of this encounter (statuses as of 11/16/2022) Immunizations Name Administration Dates Next Due COVID-19 mRNA, LNP-s, No Pre serve, 2-Dose Series (Moderna) 01/13/2021,05/16/2020,04/17/2020 Covid-19 Mrna, Lnp-s, No Pre serve, Booster (Moderna) 07/26/2021 Covid-19, Mrna, Lnp-s, Pf, B [...] Type Specialty Care Team Description 11/29/2022 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 [facility] [address] [place] [address] 12/08/2022 Office Visit Family Medicine Jessica Baugh PA-C [address] [place] [address] [place] [id number] 01/19/2023 Office Visit Cardiology Cameron Becerra PA-C [address] [place] [address] 02/03/2023 Office Visit Orthopedic Surgery Celso Zayas MD [address] [place] [address] Pending Results Name Type Priority Associated Diagnoses Date /Time COMPREHENSIVE METABOLIC PANEL Lab Routine DYSLIPIDEMIA, GOAL LDL BELOW 100 11/16/2022 3:14 PM EDT HEMOGLOBIN A1C Lab Routine Type 2 diabetes mellitus with hemoglobin A1c goal of less than 7.5% (HCC) 11/16/2022 3:14 PM EDT CBC WITH WBC DIFFERENTIAL AND ANEMIA REFLEX WORKUP Lab Routine Anemia due to stage 3a chronic kidney disease 11/16/2022 3:14 PM EDT BNP, NT-PRO Lab Routine Bilateral edema of lower extremity 11/16/2022 3:14 PM EDT LIPID PANEL WITH DIRECT LDL IF TG IS HIGH Lab Routine DYSLIPIDEMIA, GOAL LDL BELOW 100 11/16/2022 3:14 PM EDT TSH Lab Routine Typical atrial flutter (HCC) Subclinical hypothyroidism 11/16/2022 3:14 PM EDT ALBUMIN / CREATININE RATIO, URINE Lab Routine Hypertensive kidney disease with stage 3a chronic kidney disease 11/16/2022 3:14 PM EDT URINALYSIS, REFLEX TO MICROSCOPIC Lab Routine Bilateral edema of lower extremity Urinary frequency 11/16/2022 3:14 PM EDT ANEMIA CBC Lab Routine Anemia due to stage 3a chronic kidney disease 11/16/2022 3:14 PM EDT DIFFERENTIAL, AUTOMATED Lab Routine Anemia due to stage 3a chronic kidney disease 11/16/2022 3:14 PM EDT ANEMIA REFLEX CHEMISTRY HOLD Lab Routine Anemia due to stage 3a chronic kidney disease 11/16/2022 3:14 PM EDT Health Maintenance Due Date Last Done Comments Zoster Vaccines (2 of 3) 08/02/2010 06/07/2010 Depression Screening, Annual for Pts 12 and Over 08/03/2021 08/03/2020 CKD PHOS USE SMARTSET 69191 01/06/2022 10/2 09/2020, 05/28/2020, 04/03/2019, Additional history exists HbA1c 06/02/2022 12/03/2021, 04/13, 01/06/2021, Additional history exists CKD HGB USE SMARTSET 35007 12/03/202212/03, 12/03/2021, 04/28/2021, Additional history exists Diabetic Foot Exam 02/08/2023 02/08/2022, 0 05/28/2020, 05/17/2019, Additional history exists DIABETES-EYE EXAM 03/15/2023 03/15/2022, , 09/26/2019, Additional history exists Albumin/Creatinine Ratio 03/29/2023 023, 01/06/2021, 12/21/2016, Additional history exists DXA Scan 12/09/2027 12/08/2020, [...] as of this encounter Visit Diagnoses Diagnosis DYSLIPIDEMIA, GOAL LDL BELOW 100 Other and unspecified hyperlipidemia Type 2 diabetes mellitus with hemoglobin A1c goal of less than 7.5% (HCC) Anemia due to stage 3a chronic kidney disease Bilateral edema of lower extremity Edema Typical atrial flutter (HCC) Atrial flutter Subclinical hypothyroidism Other specified acquired hypothyroidism Hypertensive kidney disease with stage 3a chronic kidney disease Urinary frequency documented in this encounter Care Teams Office Assistant Relationship Specialty Start Date End Date Priyanka Falcon MD [address] [place] [address] [place] [id number] PCP - General Family Medicine 01/04/19 documented as of this encounter
--- OUTSIDE RECORDS SUMMARY | 2023-02-21 00:40 | External Medical Summary ---
Author Name Unknown Address Unknown Organization [id number]:[facility] - [address] [facility] [address] Laboratory Report Ordering Provider Test Date Status LAURE,FRAN 11/16/2022 15:14:21 Final <10,000 colonies/ml mixed no rmal jerman Observation Date Value Abnormality Reference (Units ) Status Bacteria identified in Specimen by Culture 11/16/2022 15:14:21 [id number]^ESCHE RICHIA COLI Abnormal Final 10,000 to 100,000 colonies/m L Escherichia coli Performing Location [facility] - [address] [facility] [address] Ordering Provider Test Date Status LAURE,FRAN 11/16/2022 15:14:21 Final Observation Date Value Abnormality Reference (Units ) Status Ampicillin 11/16/2022 15:14:21 >=32 Resistant Final Ampicillin + Sulbactam 11/16/2022 15:14:21 >=32 Resistant Final Cefazolin 11/16/2022 15:14:21 8 Susceptible Final Cefepime susceptibility 11/16/2022 15:14:21 <=1 Susceptible Final Ceftriaxone suceptibility 11/16/2022 15:14:21 <=1 Susceptible Final Ciprofloxacin 11/16/2022 15:14:21 0.5 Intermediate Final Due to serious side effects, the FDA has advised against using Ciprofloxacin to treat uncomplicated UTIs and respiratory tract infections unless there are no alternative treatment options. Gentamicin susceptibility 11/16/2022 15:14:21 <=1 Susc eptible Final Levofloxacin susceptibility 11/16/2022 15:14:21 1 In termediate Final Due to serious side effects, the FDA has advised against using Levofloxacin to treat uncomplicated UTIs and respiratory tract infections unless there are no alternative treatment options. Nitrofurantoin susceptibility 11/16/2022 15:14:21 <=16 Susceptible Final Piperacillin + Tazobactamsusceptibility 11/16/2022 15:14:21 <=4 Susceptible Final TMP-SMZ susceptibility 11/16/2022 15:14:21 <=20 Suscept ible Final Test: Culture, Urine, Quanti tative
Specimen Source: Urine, Clean Catch
Specimen Type: Urine
Specimen Date: 11/16/2022 3:14 PM
Result Date: 11/18/2022 3:18 PM
Result Status: Final result
Abnormal: Yes
Resulting Lab: [facility]
[address]
[facility] [address]

CULTURE

10,000 to 100,000 colonies/mL Escherichia coli (Abnormal)

<10,000 colonies/ml mixed normal jerman

SUSCEPTIBILITY

Escherichia coli
METHOD MICROBROTH DILUTIONS

AMPICILLIN >=32 Resistant
AMPICILLIN/SULBACTAM >=32 Resistant
CEFAZOLIN 8 Susceptible
CEFEPIME <=1 Susceptible
CEFTRIAXONE <=1 Susceptible
CIPROFLOXACIN 0.5 Intermediate [1]
GENTAMICIN <=1 Susceptible
LEVOFLOXACIN 1 Intermediate [2]
NITROFURANTOIN <=16 Susceptible
PIPERACILLIN TAZOBACTAM <=4 Susceptible
TRIMETH/SULFAMETHOXAZOLE <=20 Susceptible

[1] Due to serious side effects, the FDA has advised against using
Ciprofloxacin to treat uncomplicated UTIs and respiratory tract infections
unless there are no alternative treatment options.

[2] Due to serious side effects, the FDA has advised against using
Levofloxacin to treat uncomplicated UTIs and respiratory tract infections
unless there are no alternative treatment options.

null Performing Location [facility] - [address] [facility] [address]
--- OUTSIDE RECORDS SUMMARY | 2023-02-21 00:40 | External Medical Summary | Summary of Care ---
Author Name Unknown Organization [facility] Address [address] [place] [address] Phone [phone] Care Team Providers Care [facility] Insurance Clerk Name Role Phone Priyanka Falcon MD Primary Care Prov ider Reason for Referral * Precert (Within 10 days (routine)) - Authorized Specialty Diagnoses / Procedures Referred By Contac t Referred To Contact Cardiac Studies Diagnoses Typical atrial flutter (HCC) Bilateral edema of lower extremity Procedures ECHO, COMPLETE (2D), TRANS-THORACIC Jessica Peters PA-C [address] [place] [address] [place] [id number] Referral ID Status Reason Start Date Expiration Date V isits Requested Visits Authorized [id number] Authorized Precert 11/16/2022 999 999 * Evaluate & Treat - Unlimited Visits (Within 30 days (routine)) - Authorized Specialty Diagnoses / Procedures Referred By Contac t Referred To Contact Pain Management / Pain Medicine Diagnoses Spinal stenosis of lumbar region, unspecified whether neurogenic claudication present Jessica Peters PA-C [address] [place] [address] [place] [id number] Referral ID Status Reason Start Date Expiration Date Visits Requested Visits Authorized [id number] Authorized Specialty Services Required 11/16/2022 999 999 Question Answer Referral Priority Within 30 days (routine) Reason for referral? Interventional Pain Management - (Injection) What is the preferred location to have this test performed? [facility] Comments Patient Name: Cristine Benitez Date of : 1935 Department Phone Number: : [phone] (if unable to have a MRI) is recommended if any of the following apply: 1. Patient has neck or back pain with radiation to extremities. A previous MRI will be accepted if symptoms unchanged since prior MRI. 2. Spinal surgery since last MRI. If yes, order a MRI with and without contrast. 3. Hx or ongoing cancer treatment. Patient will need spine x-ray (Ap/Lat) for axial neck or back pain if not done previously. Fax No. [facility] [phone] or contact motel front desk attendant [phone] Fax No. [facility] [phone] or contact motel front desk attendant [phone] Fax No. [facility] [phone] or contact motel front desk attendant [phone] Reason for Visit * Reason Onset Date Comments Re-Check 6 mo recheck Medication Administration 11/16/2022 Flu an d/or Pneumo Inj Encounter Details Date Type Department Care Team Description 11/16/2022 Office [address] [place] [address] Jessica Peters PA-C [address] [place] [address] [place] [id number] Bilateral edema of lower extremity*; Need for prophylactic vaccination and inoculation against influenza; Spinal stenosis of lumbar region, unspecified whether neurogenic claudication present; Type 2 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 disease, without long-term current use of insulin ([facility]); Type 2 diabetes mellitus with hemoglobin A1c goal of less than 7.5% ([facility]); Diabetes mellitus with stage 3 chronic kidney disease ([facility]); DYSLIPIDEMIA, GOAL LDL BELOW 100; Typical atrial flutter ([facility]); Essential hypertension with goal blood pressure less than 140/90; Hypertensive kidney disease with stage 3a chronic kidney disease; Anemia due to stage 3a chronic kidney disease; Urinary frequency; Subclinical hypothyroidism; Congestive heart failure, unspecified HF chronicity, unspecified heart failure type ([facility]) Allergies Active Allergy Reactions Severity Noted Date Comments Naproxen Sodium Bleeding High 12/03/2009 Hs of GI bleed Aspirin Bleeding High 12/03/2009 Doxycycline Neuro complications (Please comment) Medium 10/23/2010 Hallucinations Ibuprofen Bleeding High 12/03/2009 Hx of GI bleed Nitrofurantoin Monohydrate Macrocrystals Neuro complications (Please comment) Low 09/16/2009 Headaches Gznsobgh-Kujkatipo-Ly 01/25/2011 Caused eye problems Neosporin 05/30/2003 rash Sulfa Antibiotics 05/11/2002 nausea & vomiting Tramadol Hcl Unknown 12/03/2009 Triamterene 11/16/2022 ulcers documented as of this encounter (statuses as of 11/17/2022) Medications Medication Sig Dispensed Refills Start Date End Date Status ASPIRIN 81 MG PO TABS None Entered 0 Active [facility] VITAMIN B12 1000 MCG PO TABSIndications:Vi tamin B deficiency 1 TABLET DAILY 1 Tab 0 04/27/2010 Active [employer] ULTRASOFT LANCETS MISCIndications:DM type 2, goal A1c [...] FOR ITCHING 30 g 2 05/28/2020 Active [employer] Verio In Vitro Strip (Glucose Blood)Indications: Type 2 diabetes mellitus with hemoglobin A1c goal of less than 7.5% ([facility]) Use to test blood sugar once a day DX e11.9 100 Strip 3 05/14/2021 Active [employer] Verio Flex System w/Device KitIndications:Typ e 2 diabetes mellitus with hemoglobin A1c goal of less than 7.5% ([facility]) Use as directed . Use to test blood sugar Dx e11.9 1 Kit 0 05/14/2021 Active amLODIPine Besylate 5 MG Oral Tablet (Norvasc)Indicatio ns:Peripheral edema Take 0.5 Tablets by mouth in the morning. 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 10 Capsule 0 11/17/2022 3 Active documented as of this encounter (statuses as of 11/17/2022) Active Problems Problem Noted Date Typical atrial [...] as of this encounter (statuses as of 11/17/2022) Resolved Problems Problem Noted Date Resolved Date [...] as of this encounter (statuses as of 11/17/2022) Immunizations Name Administration Dates Next Due COVID-19 [...] Split, I IV3, With Preserve, Inj 12/02/2013,12/27/2012,12/21/2011,12/01,12/22/2009,12/08/2008,01/11/2008 ,12/26/2006,12/22/2005,12/16/2004,11/07/2003,01/20/2003 Seasonal Influenza, Trivalen t, Adjuvanted, 65+ yrs [...] Sign Reading Time Taken Comments Blood Pressure 152/86 11/16/2022 2:27 PM EDT Pulse 89 11/16/2022 2:27 PM EDT Temperature 35.7 C (96.2 F) 11/16/2022 2:27 PM ED T Respiratory Rate - - Oxygen Saturation 97% 11/16/2022 2:27 PM EDT Inhaled Oxygen Concentration - - Weight 69.7 kg (153 lb 11.2 oz) 11/16/2022 2:27 PM EDT Height - - Body Mass Index 28.1 02/08/2022 10:57 AM EST documented in this encounter Progress Notes * Jessica Peters PA-C - 11/16/2022 2:37 PM EDT Images from the original note were not included. History of Present Illness Cristine Benitez is a 87 year old female that presents for Re-Check (6 mo recheck) and Medication Administration (Flu and/or Pneumo Inj) Nursing Notes: Nina Kent CMA 11/16/22 1432 Signed She is here for her regular recheck. She is still having the extreme pain in her lower back; it is almost incapacitating. Her ankles are also swelling daily. Brief Clinical History Ms. Benitez is an 87 year old woman last seen in Family Medicine 7 months ago (03-29-22). She has h/oAnemia due to stage 3a chronic kidney disease (HCC), Atrial flutter (HCC), chronic diabetic complication, Chronic kidney disease, stage 3a (HCC), CKD stage 3, Diabetes mellitus with stage 3 chronic kidney disease (HCC), heart arrhythmia, Hypertensive kidney disease with stage 3a chronic kidney disease (HCC), PAF (paroxysmal atrial fibrillation) (HCC), Paroxysmal atrial tachycardia (HCC), Paroxysmal VT (HCC), Type 2 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 disease, without long-term current use of insulin (HCC), and Typical atrial flutter (HCC). HPI: Cristine Benitez is a 87 year old female presenting to the office today for recheck. She had been seeing Dr. Still, and she did well with PT at the time. She doesn't think PT gave her lasting relief. She would be interested in an injection and/or medication to help her pain. It is debilitating and limits her walking at times. She is using a cane. She is going to be seeing Ortho spine in January as well. She was previously on Lasix PRN, but it didn't seem to help at the time. She hasn't tolerated compression in the past. Cardiology mentioned considering higher dose Lasix if no improvement in edema. Her edema has actually worsened. She has less stamina than previously but does not complain of SOB or chest pain. Reviewed record/notes including: Cardiology, Zio, Echo, Interventional pain Current Outpatient Medications Medication Instructions amLODIPine (NORVASC) 2.5 mg, Oral, Daily(AM) amLODIPine (NORVASC) 2.5 mg, Oral, Daily(AM) ASPIRIN 81 MG PO TABS None Entered atorvaSTATin (LIPITOR) 80 mg, Oral, Daily(AM) Cholecalciferol (VITAMIN D3) 1000 UNITS CAPS Oral [facility]S VITAMIN B12 1000 MCG PO TABS 1 TABLET DAILY Docusate Sodium 100 MG Oral Capsule (Colace) TAKE 1 CAP BY MOUTH EVERY MORNING. CAN TAKE 1 CAP IN THE EVENING NEEDED glipiZIDE ER 2.5 MG Oral Tablet Extended Release 24 Hour (Glucotrol XL) TAKE 1 TABLET BY MOUTH DAILY 30 MINUTES BEFORE A MEAL Lisinopril 20 MG Oral Tablet (Prinivil) TAKE [...] TABLET DAILY AT BEDTIME OneTouch Delica Plus [id number] Does Not Apply, Use to test blood [...] days OR as directed by anticoagulation clinic Zoster Vac Recomb Adjuvanted 50 MCG/0.5ML Intramuscular Suspension Reconstituted (Shingrix) Inject 0.5 mL into a large muscle now and repeat dose in 60 to 180 days Med list reviewed by me today. Physical Exam Vitals: 11/16/22 1427 Temp: 35.7 C (96.2 F) Pulse: 89 SpO2: 97% BP: 152/86 BP Readings from Last 3 Encounters: 11/16/22 152/86 03/29/22 136/64 02/17/22 136/72 Wt Readings from Last 3 Encounters: 11/16/22 69.7 kg (153 lb 11.2 oz) 03/29/22 70.9 kg (156 lb 3.2 oz) 02/17/22 71.4 kg (157 lb 4.8 oz) Physical exam: General: Well-Developed. Well appearing. No acute distress. HENT: Normocephalic. Atraumatic. Hearing normal. Eyes: EOMI. Sclera without erythema or icterus. No discharge. Pupils equal, round, reactive to light. Neck: No tracheal deviation. ROM intact. No stridor. Cardiovascular: RRR. Normal S1/S2 noted. No murmur, rub or gallop appreciated. Pulmonary: No respiratory distress. No accessory muscle use. No adventitious sounds appreciated. Normal breath sounds. Musculoskeletal: Walking with a cane. 2 to 3 + pitting edema of the B/L LE. Neurologic: Alert. Oriented x 3. Appears stated age. CN 2-12 grossly intact. Skin: Warm and dry. No apparent rashes or ecchymoses. No jaundice or pallor noted. Psych: Mood and affect normal. I have reviewed the following results: CMP, Lipid Panel, Hemoglobin A1C, TSH, CBC, and Albumin / Creatinine Ratio, Urine Assessment and Plan Bilateral edema of lower extremity Recommended that we check labs again today. Consider higher dose Lasix. Repeat Echo. - BNP, NT-PRO; Future - ECHO, COMPLETE (2D), TRANS-THORACIC; Future - CULTURE, URINE, QUANTITATIVE - URINALYSIS, REFLEX TO MICROSCOPIC; Future Need for prophylactic vaccination and inoculation against influenza - INFLUENZA VACC, QUAD, HIGH DOSE (FLUZONE HD) Spinal stenosis of lumbar region, unspecified whether neurogenic claudication present - PAIN MEDICINE REFERRAL OP Can trial low dose gabapentin at bedtime cautiously. Recommended F/U with Dr. Still. She agreed. Type 2 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 disease, without long-term current use of insulin (HCC) Type 2 diabetes mellitus with hemoglobin A1c goal of less than 7.5% (HCC) Recheck A1C. Glucose stable at home. - HEMOGLOBIN A1C; Future Diabetes mellitus with stage 3 chronic kidney disease (HCC) DYSLIPIDEMIA, GOAL LDL BELOW 100 - COMPREHENSIVE METABOLIC PANEL; Future - LIPID PANEL WITH DIRECT LDL IF TG IS HIGH; Future Typical atrial flutter (HCC) - ECHO, COMPLETE (2D), TRANS-THORACIC; Future - TSH; Future Essential hypertension with goal blood pressure less than 140/90 Slightly high today but will hold on other changes in case we add Lasix daily. She agreed. Hypertensive kidney disease with stage 3a chronic kidney disease - ALBUMIN / CREATININE RATIO, URINE; Future Anemia due to stage 3a chronic kidney disease - CBC WITH WBC DIFFERENTIAL AND ANEMIA REFLEX WORKUP; Future Urinary frequency - CULTURE, URINE, QUANTITATIVE - URINALYSIS, REFLEX TO MICROSCOPIC; Future Subclinical hypothyroidism - TSH; Future She and her son were agreeable with above workup. Wrap-Up Check-out note: Echo Interventional pain F/U with me in 3-4 weeks Time: I spent a total of 40-54 minutes (exact time 40 mins) on the date of service in preparation, delivery, and documentation of the care provided to Cristine Benitez excluding any time spent in the performance of separately billed services. * Nina Kent CMA - 11/16/2022 2:29 PM EDT PRE - ADMINISTRATION DOCUMENTATION Are you experiencing any cold symptoms or fever? No Have you had Guillain-Salisbury Syndrome (an illness that causes paralysis) within the last 6 weeks? No Have you had the flu shot in the past? YES Have you ever had a reaction to the flu shot? No Nina Kent CMA, 11/16/2022 2:29 PM Immunization Administration Documentation Time Out Procedure Performed: Yes Patient Identified (Ask Name/Date of ): Yes Does the patient have a fever greater than 101 degrees today? No Patient allergic to latex? No VFC Stock: No Immunization(s) verified: Yes, Immunization Name: Flu, VIS Sheet(s) given: Yes Verified Side and Site: Yes Verified Shot(s) with Parent(s)/Patient: Yes documented in this encounter Nursing Notes * Nina Kent CMA - 11/16/2022 2:24 PM EDT She is here for her regular recheck. She is still having the extreme pain in her lower back; it is almost incapacitating. Her ankles are also swelling daily. documented in this encounter Miscellaneous Notes * Addendum Note - Jessica Peters PA-C - 11/17/2022 8:45 AM EDTAddended by: JESSICA PETERS on: 11/17/2022 08:45 AM Modules accepted: Orders documented in this encounter Plan of Treatment Upcoming Encounters Date Type Specialty Care Team Description 11/17/2022 Cardiac Studies Cardiac Studies 11/29/2022 Office Visit Pain Medicine Andrey Still DO [address] [place] [id number] 11/29/2022 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 Pharmacy [place], [address] [place] [address] 12/08/2022 Office Visit Family Medicine Jessica Peters PA-C [address] [place] [address] [place] [address] 01/19/2023 Office Visit Cardiology Cameron Becerra PA-C [address] [place] [address] 02/03/2023 Office Visit Orthopedic Surgery Celso Zayas MD [address] [place] [address] Pending Results Name Type Priority Associated Diagnoses Date /Time CULTURE, URINE, QUANTITATIVE Lab Routine Bilateral edema of lower extremity Urinary frequency 11/16/2022 3:14 PM EDT Scheduled Orders Name Type Priority Associated Diagnoses Orde r Schedule ECHO, COMPLETE (2D), TRANS-THORACIC Echocardiology Routine Typical atrial flutter (HCC) Bilateral edema of lower extremity Expected: 11/16/2022, Expires: 12/16/2024 Scheduled Referrals Name Type Priority Associated Diagnoses Orde r Schedule PAIN MEDICINE REFERRAL OP Referral Within 30 days (routine) Spinal stenosis of lumbar region, unspecified whether neurogenic claudication present Ordered: 11/16/2022 Health Maintenance Due Date Last Done Comments Zoster Vaccines (2 of 3) 08/02/2010 06/07/2010 Depression Screening, Annual for Pts 12 and Over 08/03/2021 08/03/2020 CKD PHOS USE SMARTSET 29301 01/06/2022/09/2020, 05/28/2020, 04/03/2019, Additional history exists Diabetic Foot Exam 02/08/2023 02/08/2022, 0 05/28/2020, 05/17/2019, Additional history exists DIABETES-EYE EXAM 03/15/2023 03/15/2022, , 09/26/2019, Additional history exists HbA1c 05/17/2023 11/16/2022, 11/12, 04/28/2021, Additional history exists Albumin/Creatinine Ratio 11/17/2023 023, 03/29/2022, 01/06/2021, Additional history exists CKD HGB USE SMARTSET 08401 11/17/202311/16, 11/16/2022, 12/03/2021, Additional history exists DXA [...] as of this encounter Results * (ABNORMAL) URINALYSIS, REFLEX TO MICROSCOPIC (11/16/2022 3:14 PM EDT) Color, Urine Light Yellow Colorless, Light Yellow, Yellow, Dark Yellow 11/16/2022 10:54 PM EDT LAB[facility] Clarity, Urine Slightly Cloudy(A) Clear 11/16/2022 10:54 PM EDT [facility] Glucose, Urine Negative Negative mg/dL 11/16/2022 10:54 PM EDT [facility] Bilirubin, Urine Negative Negative 11/16/2022 10:54 PM EDT LABORATORY C Ketone, Urine Negative Negative mg/dL 11/16/2022 10:54 PM EDT LABORATORY [facility] Specific [place], Urine 1.010 1.003 - 1.030 11/16/2022 10:54 PM EDT LABORATORY [facility] Blood, Urine Negative Negative 11/16/2022 10:54 PM EDT LABORATORY [facility] pH, Urine 7.0 5.0 - 7.5 Units 11/16/2022 10:54 PM EDT LABORATORY [facility] Protein, Urine Trace(A) Negative mg/dL 11/16/2022 10:54 PM EDT LABORATORY [facility] Urobilinogen, Urine Normal Normal mg/dL 11/16/2022 10:54 PM EDT LABORATORY [facility] Nitrite, Urine Positive(A) Negative 11/16/2022 10:54 PM EDT LABORATORY [facility] Esterase, Urine Large(A) Negative 11/16/2022 10:54 PM EDT LABORATORY [facility] RBC, Urine 0-2 0 - 2 /HPF 11/16/2022 10:54 PM EDT LABORATORY [facility] WBC, Urine 50+(A) 0 - 2 /HPF 11/16/2022 10:54 PM EDT LABORATORY [facility] Bacteria, Urine >200(A) 0 - 25 /HPF 11/16/2022 10:54 PM EDT LABORATORY [facility] Urine Urine specimen obtained by clean catch procedure / Unknown Non-blood Collection / Unknown 11/16/2022 3:14 PM EDT 11/16/2022 3:14 PM EDT Jessica Peters PA-C LAB URINE ORDERABLE S LABORATORY [facility] [address] [place] [address] * (ABNORMAL) ALBUMIN / CREATININE RATIO, URINE (11/16/2022 3:14 PM EDT) Albumin, Random Urine 3.54 mg/dL 11/16/2022 11:58 PM EDT LABORATORY [facility] Creatinine, Random Urine 39 mg/dL 11/16/2022 11:58 PM EDT LABORATORY [facility] Albumin / Creatinine Ratio, Urine 91(H) <30 mg/g Creat 11/16/2022 11:58 PM EDT LABORATORY [facility] Urine Urine specimen obtained by clean catch procedure / Unknown Non-blood Collection / Unknown 11/16/2022 3:14 PM EDT 11/16/2022 3:14 PM EDT [facility] LABORATORY [facility] - 11/16/2022 11:58 PM EDT Normal: <30 mg/g creatinine High: 30-300 mg/g creatinine Very High: >300 mg/g creatinine Nephrotic: >2200 mg/g creatinine Jessica Peters PA-C LAB URINE ORDERABLE S Performing Organization Address City/[facility]/ZIP Co de Phone Number LABORATORY [address] [address] * TSH (11/16/2022 3:14 PM EDT) TSH 3.08 0.27 - 4.20 uIU/mL 11/17/2022 4:01 AM EDT LABORATORY [facility] Blood Venous blood specimen / Unknown Venipuncture / Unknown 11/16/2022 3:14 PM EDT 11/16/2022 3:14 PM EDT Jessica Peters PA-C LAB BLOOD ORDERABLE S Performing Organization Address City/[facility]/ZIP Co de Phone Number LABORATORY [address] [address] * (ABNORMAL) LIPID PANEL WITH DIRECT LDL IF TG IS HIGH (11/16/2022 3:14 PM EDT) Triglycerides 136 <=174 mg/dL 11/17/2022 3:22 AM EDT LABORATORY [facility] Comment: Triglyceride Reference Ranges (mg/dL): <150 Acceptable 150-174 Borderline high 175-499 High >=500 Very high Cholesterol 156 <200 mg/dL 11/17/2022 3:22 AM EDT LABORATORY [facility] Comment: Total Cholesterol Reference Ranges (mg/dL): <200 Desirable 200-239 Borderline high >=240 High HDL Cholesterol 38(L) >49 mg/dL 3:22 AM EDT LABORATORY [facility] Comment: HDL Cholesterol Reference Ranges (mg/dL): >=60 High (Desirable) <50 Low (Undesirable) For Females <40 Low (Undesirable) For Males Non-HDL Cholesterol 118 <=159 mg/dL 11/17/2022 3:22 AM EDT LABORATORY [facility] Comment: Non-HDL Cholesterol Reference Range (mg/dL): <100 Target level for high risk ASCVD patient <130 Optimal for general population 130-159 Near optimal for general population 160-189 Borderline High 190-219 High >=220 Very High LDL Cholesterol 91 <=129 mg/dL 11/17/2022 3:22 AM EDT LABORATORY [facility] Comment: LDL Cholesterol Reference Ranges (mg/dL): <70 Target level for high risk ASCVD patient <100 Optimal for general population 100-129 Near optimal for general population 130-159 Borderline high 160-189 High >=190 Very high Blood Venous blood specimen / Unknown Venipuncture / Unknown 11/16/2022 3:14 PM EDT 11/16/2022 3:14 PM EDT Jessica Peters PA-C LAB BLOOD ORDERABLE S LABORATORY [facility] [address] [place] [address] * (ABNORMAL) BNP, NT-PRO (11/16/2022 3:14 PM EDT) BNP, NT-Pro 2,689(H) <300 pg/mL 11/17/2022 3:22 AM EDT LABORATORY [facility] Blood Venous blood specimen / Unknown Venipuncture / Unknown 11/16/2022 3:14 PM EDT 11/16/2022 3:14 PM EDT Narrative LABORATORY [facility] - 11/17/2022 3:22 AM EDT Exclude Heart Failure: <300 pg/mL Diagnose Heart Failure: Age <50 yr: >450 pg/mL 50-75 yr: >900 pg/mL >75 yr: >1800 pg/mL GFR is 30-59 mL/min: >1200 pg/mL or Age-adjusted values GFR <30 mL/min: do not use, not reliable Prognostic threshold: 1000 pg/mL Jessica Peters PA-C LAB BLOOD ORDERABLE S Performing Organization Address [facility] de Phone Number LABORATORY [facility] [address] [place] [address] * (ABNORMAL) HEMOGLOBIN A1C (11/16/2022 3:14 PM EDT) Hemoglobin A1C 7.9(H) 4.0 - 5.6 % 11/17/2022 1:18 AM EDT LABORATORY [facility] Comment:The use of HbA1c to monitor glycemic status is based on normal hemoglobin and HbA composition. This test should not be used in patients with abnormal hemoglobin that affects the half life of the red blood cell or the in vivo glycation rates. Estimated Average Glucose 180(H) <126 mg/dL 11/17/2022 1:18 AM EDT LABORATORY [facility] Blood Venous blood specimen / Unknown Venipuncture / Unknown 11/16/2022 3:14 PM EDT 11/16/2022 3:14 PM EDT Jessica Peters PA-C LAB BLOOD ORDERABLE S Performing Organization Address [facility] de Phone Number LABORATORY [facility] [address] [place] [address] * (ABNORMAL) COMPREHENSIVE METABOLIC PANEL (11/16/2022 3:14 PM EDT) BUN 26(H) 6 - 20 mg/dL 11/17/2022 3:22 AM EDT LABORATORY [facility] Creatinine 1.3(H) 0.5 - 1.0 mg/dL 11/17/2022 3:22 AM EDT LABORATORY [facility] Estimated Glomerular Filtration Rate 41(L) >=60 mL/min 11/17/2022 3:22 AM EDT LABORATORY [facility] Comment:eGFR is calculated b ased on the CKD-EPI 2020 equation Sodium 140 135 - 146 mmol/L 11/17/2022 3:22 AM EDT LABORATORY [facility] Potassium 4.6 3.5 - 5.1 mmol/L 11/17/2022 3:22 AM EDT LABORATORY C Chloride 103 98 - 107 mmol/L 11/17/2022 3:22 AM EDT [facility] CO2 25 22 - 32 mmol/L 11/17/2022 3:22 AM EDT [facility] Anion Gap 12 7 - 15 mmol/L 11/17/2022 3:22 AM EDT LAB[facility] Glucose 131(H) 70 - 120 mg/dL 11/17/2022 3:22 AM EDT LAB[facility] Albumin 4.2 3.8 - 5.0 g/dL 11/17/2022 3:22 AM EDT LAB[facility] AST 19 10 - 35 U/L 11/17/2022 3:22 AM EDT LAB[facility] Alkaline Phosphatase 79 35 - 130 U/L 11/17/2022 3:22 AM EDT LAB[facility] Bilirubin, Total 0.4 <=1.2 mg/dL 11/17/2022 3:22 AM EDT LAB[facility] Calcium 9.2 8.4 - 10.2 mg/dL 11/17/2022 3:22 AM EDT LAB[facility] Protein 6.5 6.0 - 8.3 g/dL 11/17/2022 3:22 AM EDT LAB[facility]ATORY [facility] ALT 23 10 - 35 U/L 11/17/2022 3:22 AM EDT LAB[facility]ATORY [facility] Blood Venous blood specimen / Unknown Venipuncture / Unknown 11/16/2022 3:14 PM EDT 11/16/2022 3:14 PM EDT Jessica Peters PA-C LAB BLOOD ORDERABLE S Performing Organization Address City/State/[facility] Co de Phone Number LABORATORY [facility] [address], [place] [id number] documented in this encounter Visit Diagnoses Diagnosis Bilateral edema of lower extremity- Primary Edema Need for prophylactic vaccination and inoculation against influenza Spinal stenosis of lumbar region, unspecified whether neurogenic claudication present Type 2 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 disease, without long-term current use of insulin (HCC) Type 2 diabetes mellitus with hemoglobin A1c goal of less than 7.5% (HCC) Diabetes mellitus with stage 3 chronic kidney disease (HCC) Type II or unspecified type diabetes mellitus with renal manifestations, not stated as uncontrolled DYSLIPIDEMIA, GOAL LDL BELOW 100 Other and unspecified hyperlipidemia Typical atrial flutter (HCC) Atrial flutter Essential hypertension with goal blood pressure less than 140/90 Hypertensive kidney disease with stage 3a chronic kidney disease Anemia due to stage 3a chronic kidney disease Urinary frequency Subclinical hypothyroidism Other specified acquired hypothyroidism Congestive heart failure, unspecified HF chronicity, unspecified heart failure type (HCC) documented in this encounter Care Teams Hospital Insurance Clerk Relationship Specialty Start Date End Date Priyanka Falcon MD [address] [place] [address] [place] [id number] PCP - General Family Medicine 01/04/19 documented as of this encounter
--- OUTSIDE RECORDS SUMMARY | 2023-02-21 00:40 | External Medical Summary ---
Author Name Unknown Address Unknown Organization K01:LABORATORY [facility] [place] - [address] [facility] [address] Laboratory Report Ordering Provider Test Date Status FRAN KELSEY 11/16/2022 15:14:21 Final Observation Date Value Abnormality Reference (Units ) Status Color of Urine by Auto 11/16/2022 15:14:21 Light Yellow Colorless, Light Yellow, Yellow, Dark Yellow Final Clarity, Urine 11/16/2022 15:14:21 Slightly Cloudy Abnormal Clear Final Glucose [Mass/volume] in Urine by Automated test strip 11/16/2022 15:14:21 Negative Negative (mg/dL) Final Bilirubin.total [Presence] in Urine by Automated test strip 11/16/2022 15:14:21 Negative Negative Final Ketones [Mass/volume] in Urine by Automated test strip 11/16/2022 15:14:21 Negative Negative (mg/dL) Final Specific gravity, Urine 11/16/2022 15:14:21 1.010 1.003-1.030 Final Hemoglobin [Presence] in Urine by Automated test strip 11/16/2022 15:14:21 Negative Negative Final pH, Urine 11/16/2022 15:14:21 7.0 5.0-7.5 (Units) Final Protein [Mass/volume] in Urine by Automated test strip 11/16/2022 15:14:21 Trace Abnormal Negative (mg/dL) Final Urobilinogen [Mass/volume] in Urine by Automated test strip 11/16/2022 15:14:21 Normal Normal (mg/dL) Final Nitrite [Presence] in Urine by Automated test strip 11/16/2022 15:14:21 Positive Abnormal Negative Final Leukocyte esterase [Presence] in Urine by Automated test strip 11/16/2022 15:14:21 Large Abnormal Negative Final RBC, Urine 11/16/2022 15:14:21 0-2 0-2 (/HPF) Final WBC, Urine 11/16/2022 15:14:21 50+ Abnormal 0-2 (/HPF) Final Bacteria [#/area] in Urine sediment by Microscopy high power field 11/16/2022 15:14:21 >200 Abnormal 0-25 (/HPF) Final Performing Location LABORATORY [facility] - [facility] [address] [facility] [address]
--- OUTSIDE RECORDS SUMMARY | 2023-02-21 00:40 | External Medical Summary ---
Author Name Unknown Address Unknown Organization [id number]:[facility] [place] [address] [facility] [address] Laboratory Report Ordering Provider Test Date Status FRAN KELSEY 11/16/2022 15:14:21 Final Observation Date Value Abnormality Reference (Units ) Status SYNC LEUKOCYTES IN BLOOD BY AUTOMATED COUNT 11/16/2022 15:14:21 7.45 4.00-10.80 (K/uL) Final Segs 11/16/2022 15:14:21 58.9 40.0-75.0 (%) Final Lymphs % 11/16/2022 15:14:21 27.9 18.0-42.0 (%) Final Monos 11/16/2022 15:14:21 9.9 1.0-11.0 (%) Final Eosinophils 11/16/2022 15:14:21 2.7 0.0-6.0 (%) Final Basos 11/16/2022 15:14:21 0.3 0.0-2.0 (%) Final Immature Granulocyte, Percent 11/16/2022 15:14:21 0.3 0.0-2.0 (%) Final Absolute Segs 11/16/2022 15:14:21 4.39 1.80-7.70 (K/uL) Final Lymphs, absolute 11/16/2022 15:14:21 2.08 1.00-4.80 (K/ul) Final Monos, Abs 11/16/2022 15:14:21 0.74 0.00-1.10 (K/uL) Final Eos, Abs 11/16/2022 15:14:21 0.20 0.00-0.70 (K/uL) Final Basos, Abs 11/16/2022 15:14:21 0.02 0.00-0.20 (K/uL) Final Immature Granulocytes, Number 11/16/2022 15:14:21 0.02 0.00-0.20 (K/uL) Final Performing Location [facility] [place] [facility] [place] [address]
--- OUTSIDE RECORDS SUMMARY | 2023-02-21 00:40 | External Medical Summary ---
Author Name Unknown Address Unknown Organization K01:LABORATORY [place] - [facility] [address] [facility] [place] [address] Laboratory Report Ordering Provider Test Date Status FRAN KELSEY 11/16/2022 15:14:21 Final Observation Date Value Abnormality Reference (Units ) Status Retic, % (auto) 11/16/2022 15:14:21 1.67 0.80-1.90 (%) Final Reticulocytes, Absolute 11/16/2022 15:14:21 63.8 31.3-100.1 (K/uL) Final Reticulocyte fraction, immature 11/16/2022 15:14:21 27.6 Above high normal 2.5-20.6 (%) Final Reticulocyte HGB 11/16/2022 15:14:21 31.0 29.7-37.4 (pg) Final Performing Location LABORATORY [place] - [address] [place] [address]
--- OUTSIDE RECORDS SUMMARY | 2023-02-21 00:40 | External Medical Summary | Summary of Care ---
Author Name Unknown Organization [facility] Address [address] [place] [address] Phone [phone] Care Team Providers Care [employer] Member Name Role Phone Priyanka Falcon MD Primary Care Prov ider Reason for Referral * Precert (Within 10 days (routine)) - Authorized Specialty Diagnoses / Procedures Referred By Contac t Referred To Contact Cardiac Studies Diagnoses Typical atrial flutter (HCC) Bilateral edema of lower extremity Procedures ECHO, COMPLETE (2D), TRANS-THORACIC Jessica Baugh PA-C [address] [place] [address] [place] [id number] Referral ID Status Reason Start Date Expiration Date V isits Requested Visits Authorized [id number] Authorized Precert 11/16/2022 999 999 * Evaluate & Treat - Unlimited Visits (Within 30 days (routine)) - Authorized Specialty Diagnoses / Procedures Referred By Contac t Referred To Contact Pain Management / Pain Medicine Diagnoses Spinal stenosis of lumbar region, unspecified whether neurogenic claudication present Jessica Baugh PA-C [address] [place] [address] [place] [id number] Referral ID Status Reason Start Date Expiration Date Visits Requested Visits Authorized [id number] Authorized Specialty Services Required 11/16/2022 999 999 Question Answer Referral Priority Within 30 days (routine) Reason for referral? Interventional Pain Management - (Injection) What is the preferred location to have this test performed? [facility] Comments Patient Name: Cristine Benitez Date of : 1935 Department Phone Number: : [phone] (if unable to have [...] pain if not done previously. Fax No. [facility] [phone] or contact front sight attacher [phone] Fax No. [facility] [phone] or contact front sight attacher [phone] Fax No. [facility] [phone] or contact front sight attacher [phone] Reason for Visit * Reason Onset Date Comments Re-Check 6 mo recheck Medication Administration 11/16/2022 Flu an d/or Pneumo Inj Encounter Details Date Type Department Care Team Description 11/16/2022 Office Visit [address] [place] [phone] Jessica Baugh PA-C [address] [place] [address] [place] [id number] Bilateral edema of lower extremity*; Need for prophylactic vaccination and inoculation against influenza; Spinal stenosis of lumbar region, unspecified whether neurogenic claudication present; Type 2 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 disease, without long-term current use of insulin ([facility]); Type 2 diabetes mellitus with hemoglobin A1c goal of less than 7.5% ([facility]); Diabetes mellitus with stage 3 chronic kidney disease ([facility]); DYSLIPIDEMIA, GOAL LDL BELOW 100; Typical atrial flutter ([facility]); Essential hypertension with goal blood pressure less than 140/90; Hypertensive kidney disease with stage 3a chronic kidney disease; Anemia due to stage 3a chronic kidney disease; Urinary frequency; Subclinical hypothyroidism Allergies Active Allergy Reactions Severity Noted Date Comments Naproxen Sodium Bleeding High 12/03/2009 Hs of GI bleed Aspirin Bleeding High 12/03/2009 Doxycycline Neuro complications (Please comment) Medium 10/23/2010 Hallucinations Ibuprofen Bleeding High 12/03/2009 Hx of GI bleed Nitrofurantoin Monohydrate Macrocrystals Neuro complications (Please comment) Low 09/16/2009 Headaches Uswpschm-[id number]-[id number] 01/25/2011 Caused eye problems Neosporin 05/30/2003 rash [...] TABLET DAILY 1 Tab 0 04/27/2010 Active T[employer] ULTRASOFT LANCETS MISCIndications:DM type 2, goal A1c [...] FOR ITCHING 30 g 2 05/28/2020 Active [employer] In Vitro Strip (Glucose Blood)Indications: Type 2 diabetes mellitus with hemoglobin A1c goal of less than 7.5% (HCC) Use to test blood sugar once a day DX e11.9 100 Strip 3 05/14/2021 Active SupertecTouch Verio Flex System w/Device KitIndications:Typ e 2 [...] unspecified type ([facility]),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,USP current use of anticoagulant therapy,PAF (paroxysmal atrial fibrillation) ([facility]) Take 4 mg (2 tablets) [...] Tablet 1 09/08/2022 Active OneTouch Delica Plus [id number] ns:Type 2 diabetes mellitus with hemoglobin A1c [...] Progress Notes * Jessica Baugh PA-C - 11/16/2022 2:37 PM EDT Images [...] for recheck. She had been seeing Dr. Cousins, and she did well with PT at [...] TABLET DAILY AT BEDTIME OneTouch Delica Plus [id number] Does Not Apply, Use to test blood [...] disease, without long-term current use of insulin ([facility]) Type 2 diabetes mellitus with hemoglobin A1c goal of less than 7.5% ([facility]) Recheck A1C. Glucose stable at home. - [...] symptoms or fever? No Have you had Guillain-Barnegat Syndrome (an illness that causes paralysis) within [...] also swelling daily. documented in this encounter Plan of Treatment Upcoming Encounters Date Type Specialty Care Team Description 11/17/2022 Cardiac Studies Cardiac Studies 11/29/2022 Office Visit Pain Medicine Andrey Still DO [address] [place] [id number] 11/29/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 [place] [phone] 12/08/2022 Office Visit Family Medicine Jessica Baugh PA-C [address] [place] [address] [place] [phone] 01/19/2023 Office Visit Cardiology Cameron Becerra PA-C [address] [place] [phone] 02/03/2023 Office Visit Orthopedic Surgery Celso Zayas MD [address] [place] [id number] Pending Results Name Type Priority Associated Diagnoses [...] chronic kidney disease 11/16/2022 3:14 PM EDT CULTURE, URINE, QUANTITATIVE Lab Routine Bilateral edema of lower extremity Urinary frequency 11/16/2022 3:14 PM EDT URINALYSIS, REFLEX TO MICROSCOPIC Lab Routine Bilateral edema of lower extremity Urinary frequency 11/16/2022 3:14 PM EDT Scheduled Orders Name Type Priority Associated Diagnoses Orde r Schedule COMPREHENSIVE METABOLIC PANEL Lab Routine DYSLIPIDEMIA, GOAL LDL BELOW 100 Expected: 11/16/2022 (Approximate), Expires: 11/16/2023 HEMOGLOBIN A1C Lab Routine Type 2 diabetes mellitus with hemoglobin A1c goal of less than 7.5% (HCC) Expected: 11/16/2022 (Approximate), Expires: 11/16/2023 CBC WITH WBC DIFFERENTIAL AND ANEMIA REFLEX WORKUP Lab Routine Anemia due to stage 3a chronic kidney disease Expected: 11/16/2022 (Approximate), Expires: 11/17/2023 BNP, NT-PRO Lab Routine Bilateral edema of lower extremity Expected: 11/16/2022 (Approximate), Expires: 11/16/2023 ECHO, COMPLETE (2D), TRANS-THORACIC Echocardiology Routine Typical atrial flutter (HCC) Bilateral edema of lower extremity Expected: 11/16/2022, Expires: 12/16/2024 LIPID PANEL WITH DIRECT LDL IF TG IS HIGH Lab Routine DYSLIPIDEMIA, GOAL LDL BELOW 100 Expected: 11/16/2022, Expires: 11/17/2023 TSH Lab Routine Typical atrial flutter (HCC) Subclinical hypothyroidism Expected: 11/16/2022 (Approximate), Expires: 11/16/2023 ALBUMIN / CREATININE RATIO, URINE Lab Routine Hypertensive kidney disease with stage 3a chronic kidney disease Expected: 11/16/2022 (Approximate), Expires: 11/16/2023 URINALYSIS, REFLEX TO MICROSCOPIC Lab Routine Bilateral edema of lower extremity Urinary frequency Expected: 11/16/2022, Expires: 11/17/2023 Scheduled Referrals Name Type Priority Associated Diagnoses Orde r Schedule PAIN MEDICINE REFERRAL OP Referral Within 30 days (routine) Spinal stenosis of lumbar region, unspecified whether neurogenic claudication present Ordered: 11/16/2022 Health Maintenance Due Date Last Done Comments Zoster Vaccines (2 of 3) 08/02/2010 06/07/2010 Depression Screening, Annual for Pts 12 and Over 08/03/2021 08/03/2020 CKD PHOS USE SMARTSET 96800 01/06/202212/12, 05/28/2020, 04/03/2019, Additional history exists HbA1c 06/02/2022 12/03/2021, 04/13, 01/06/2021, Additional history exists CKD HGB USE SMARTSET 91288 12/03/202212/03, 12/03/2021, 04/28/2021, Additional history exists Diabetic [...] of this encounter Visit Diagnoses Diagnosis Bilateral edema [...] frequency Subclinical hypothyroidism Other specified acquired hypothyroidism documented in this encounter Care Teams Aboriginal Community Council Member Relationship Specialty Start Date End Date Priyanka Falcon MD [address] [place] [address] [place] [id number] PCP - General Family Medicine 01/04/19 documented as of this encounter
--- OUTSIDE RECORDS SUMMARY | 2023-02-21 00:40 | External Medical Summary ---
Author Name Unknown Address Unknown Organization K01:[place] [place] [address] [place] [address] Laboratory Report Ordering Provider Test Date Status FRAN KELSEY 11/16/2022 15:14:21 Final Observation Date Value Abnormality Reference (Units ) Status Iron 11/16/2022 15:14:21 54 33-151 (ug /dL) Final Iron-binding capacity 11/16/2022 15:14:21 344 250-425 (ug/dL) Final Transferrin Sat % 11/16/2022 15:14:21 16 15 -55 (%) Final Performing Location [facility] [place] [address] [address]
--- OUTSIDE RECORDS SUMMARY | 2023-02-21 00:40 | External Medical Summary | Summary of Care ---
Author Name Unknown Organization [facility] Address [address] [place] [address] Phone [phone] Care Team Providers Care Training And Development Director Name Role Phone Priyanka Falcon MD Primary Care Prov ider Reason for Referral * Precert (Within 10 days (routine)) - Authorized Specialty Diagnoses / Procedures Referred By Contac t Referred To Contact Cardiac Studies Diagnoses Typical atrial flutter (HCC) Bilateral edema of lower extremity Procedures ECHO, COMPLETE (2D), TRANS-THORACIC Jessica Peters PA-C [address] [place] [address] [place] [id number] Referral ID Status Reason Start Date Expiration Date V isits Requested Visits Authorized [id number] Authorized Precert 11/16/2022 999 999 * Evaluate & Treat - Unlimited Visits (Within 30 days (routine)) - Authorized Specialty Diagnoses / Procedures Referred By Contac t Referred To Contact Pain Management / Pain Medicine Diagnoses Spinal stenosis of lumbar region, unspecified whether neurogenic claudication present Jessica Peters PA-C [address] [place] [address] [place] [id number] Referral ID Status Reason Start Date Expiration Date Visits Requested Visits Authorized [id number] Authorized Specialty Services Required 11/16/2022 999 999 Question Answer Referral Priority Within 30 days (routine) Reason for referral? Interventional Pain Management - (Injection) What is the preferred location to have this test performed? [facility] M[facility] II Comments Patient Name: Cristine Benitez Date of : 1935 Department Phone Number: : [phone] (if unable to have [...] pain if not done previously. Fax No. [facility] [phone] or contact front desk administrator [phone] Fax No. [facility] [phone] or contact front desk administrator [phone] Fax No. [facility] [phone] or contact front desk administrator [phone] Reason for Visit * Reason Onset Date Comments Re-Check 6 mo recheck Medication Administration 11/16/2022 Flu an d/or Pneumo Inj Encounter Details Date Type Department Care Team Description 11/16/2022 Office Visit [address] [place] [address] Jessica Peters PA-C [address] [place] [address] [place] [id number] Bilateral edema of lower extremity*; Need for prophylactic vaccination and inoculation against influenza; Spinal stenosis of lumbar region, unspecified whether neurogenic claudication present; Type 2 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 disease, without long-term current use of insulin ([facility]); Type 2 diabetes mellitus with hemoglobin A1c goal of less than 7.5% ([facility]); Diabetes mellitus with stage 3 chronic kidney disease ([facility]); DYSLIPIDEMIA, GOAL LDL BELOW 100; Typical atrial flutter ([facility]); Essential hypertension with goal blood pressure less than 140/90; Hypertensive kidney disease with stage 3a chronic kidney disease; Anemia due to stage 3a chronic kidney disease; Urinary frequency; Subclinical hypothyroidism; Congestive heart failure, unspecified HF chronicity, unspecified heart failure type ([facility]) Allergies Active Allergy Reactions Severity Noted Date Comments Naproxen Sodium Bleeding High 12/03/2009 Hs of GI bleed Aspirin Bleeding High 12/03/2009 Doxycycline Neuro complications (Please comment) Medium 10/23/2010 Hallucinations Ibuprofen Bleeding High 12/03/2009 Hx of GI bleed Nitrofurantoin Monohydrate Macrocrystals Neuro complications (Please comment) Low 09/16/2009 Headaches Wfoauhnk-[id number]-[id number] 01/25/2011 Caused eye problems Neosporin 05/30/2003 rash [...] TABLET DAILY 1 Tab 0 04/27/2010 Active [employer] ULTRASOFT LANCETS MISCIndications:DM type 2, goal A1c [...] FOR ITCHING 30 g 2 05/28/2020 Active FXTrip Verio In Vitro Strip (Glucose Blood)Indications: Type 2 diabetes mellitus with hemoglobin A1c goal of less than 7.5% ([facility]) Use to test blood sugar once a day DX e11.9 100 Strip 3 05/14/2021 Active EDUonGoTouch Verio Flex System w/Device KitIndications:Typ e 2 diabetes mellitus with hemoglobin A1c goal of less than 7.5% ([facility]) Use as directed . Use to test blood sugar Dx e11.9 1 Kit 0 05/14/2021 Active amLODIPine Besylate 5 MG Oral Tablet (Norvasc)Indicatio ns:Peripheral edema Take 0.5 Tablets by mouth in the morning. 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 No Have you had Guillain-Roxbury Syndrome (an illness that causes paralysis) within [...] Still DO [address] [place] [id number] 11/29/2022 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 [facility] [place], [address] [place] [id number] 12/08/2022 Office Visit Family Medicine Jessica Peters PA-C [address] [place] [address] [place] [phone] 01/19/2023 Office Visit Cardiology Cameron Becerra PA-C [address] [place] [phone] 02/03/2023 Office Visit Orthopedic Surgery Celso Zayas MD [address] [place] [id number] Scheduled Referrals Name Type Priority Associated Diagnoses Orde r Schedule PAIN MEDICINE REFERRAL OP Referral Within 30 days (routine) Spinal stenosis of lumbar region, unspecified whether neurogenic claudication present Ordered: 11/16/2022 Health Maintenance Due Date Last Done Comments Zoster Vaccines (2 of 3) 08/02/2010 06/07/2010 Depression Screening 08/03/2021 08/03/2020 CKD PHOS USE SMARTSET 15915 01/06/202212/12, 05/28/2020, 04/03/2019, Additional history exists Diabetic Foot Exam 02/08/2023 02/08/2022, 0 05/28/2020, 05/17/2019, Additional history exists DIABETES-EYE EXAM 03/15/2023 03/15/2022, , 09/26/2019, Additional history exists HbA1c 05/17/2023 11/16/2022, 11/12, 04/28/2021, Additional history exists Albumin/Creatinine Ratio 11/17/2023 023, 03/29/2022, 01/06/2021, Additional history exists CKD HGB USE SMARTSET 37934 11/17/202311/16, 11/16/2022, 12/03/2021, Additional history exists DXA [...] Procedure Name Priority Date/Time Associated Diagnosis Comments CULTURE, URINE, QUANTITATIVE Routine 11/16/2022 3:14 PM EDT Bilateral edema of lower extremity Urinary frequency documented in this encounter Results * ECHO, COMPLETE (2D), TRANS-THORACIC (11/17/2022 3:54 PM EDT) LEFT VENTRICULAR EJECTION FRACTION 55 % [facility] CARDIOLOGY 11/17/2022 3:17 PM EDT Jessica Peters PA-C ECHOCARDIOLOGY [facility] CARDIOLOGY * (ABNORMAL) URINALYSIS, REFLEX TO MICROSCOPIC (11/16/2022 3:14 PM EDT) Color, Urine Light Yellow Colorless, Light Yellow, Yellow, Dark Yellow 11/16/2022 10:54 PM EDT [facility] Clarity, Urine Slightly Cloudy(A) Clear 11/16/2022 10:54 PM EDT [facility] Glucose, Urine Negative Negative mg/dL 11/16/2022 10:54 PM EDT [facility] Bilirubin, Urine Negative Negative 11/16/2022 10:54 PM EDT LABORATORY C Ketone, Urine Negative Negative mg/dL 11/16/2022 10:54 PM EDT [facility] Specific Reading, Urine 1.010 1.003 - 1.030 11/16/2022 10:54 PM EDT [facility] Blood, Urine Negative Negative 11/16/2022 10:54 PM EDT [facility] pH, Urine 7.0 5.0 - 7.5 Units 11/16/2022 10:54 PM EDT [facility] Protein, Urine Trace(A) Negative mg/dL 11/16/2022 10:54 PM EDT [facility] Urobilinogen, Urine Normal Normal mg/dL 11/16/2022 10:54 PM EDT [facility] Nitrite, Urine Positive(A) Negative 11/16/2022 10:54 PM EDT [facility] Esterase, Urine Large(A) Negative 11/16/2022 10:54 PM EDT [facility] RBC, Urine 0-2 0 - 2 /HPF 11/16/2022 10:54 PM EDT [facility] WBC, Urine 50+(A) 0 - 2 /HPF 11/16/2022 10:54 PM EDT [facility] Bacteria, Urine >200(A) 0 - 25 /HPF 11/16/2022 10:54 PM EDT [facility] Urine Urine specimen obtained by clean catch procedure / Unknown Non-blood Collection / Unknown 11/16/2022 3:14 PM EDT 11/16/2022 3:14 PM EDT Jessica Peters PA-C LAB URINE ORDERABLE S [facility] [address] [place] [address] * (ABNORMAL) CULTURE, URINE, QUANTITATIVE (11/16/2022 3:14 PM EDT) Culture Growth 10,000 to 100,000 colonies/mL Escherichia coli(A) MICROBROTH DILUTIONS 11/18/2022 3:18 PM EDT [facility] Urine Urine specimen obtained by clean catch procedure / Unknown Non-blood Collection / Unknown 11/16/2022 3:14 PM EDT 11/16/2022 3:14 PM EDT Narrative [facility] - 11/18/2022 3:18 PM EDT <10,000 colonies/ml mixed normal jerman Organism Antibiotic Method Susceptibility Escherichia coli Ampicillin MICROBROTH DILUTIONS >=32: Resistant Escherichia coli Ampicillin/Sulbactam MICROBROTH DILUT IONS >=32: Resistant Escherichia coli Cefazolin MICROBROTH DILUTIONS 8: Susceptible Escherichia coli Cefepime MICROBROTH DILUTIONS <=1: Susceptible Escherichia coli Ceftriaxone MICROBROTH DILUTIONS <=1: Susceptible Escherichia coli Ciprofloxacin MICROBROTH DILUTIONS 0.5: Intermediate Comment:Due to nelda us side effects, the FDA has advised against using Ciprofloxacin to treat uncomplicated UTIs and respiratory tract infections unless there are no alternative treatment options. Escherichia coli Gentamicin MICROBROTH DILUTIONS <=1: Susceptible Escherichia coli Levofloxacin MICROBROTH DILUTIONS 1: Intermediate Comment:Due to nelda us side effects, the FDA has advised against using Levofloxacin to treat uncomplicated UTIs and respiratory tract infections unless there are no alternative treatment options. Escherichia coli Nitrofurantoin MICROBROTH DILUTIONS <=16: Susceptible Escherichia coli Piperacillin Tazobactam MICROBROTH DI LUTIONS <=4: Susceptible Escherichia coli Trimeth/Sulfamethoxazole MICROBROTH D ILUTIONS <=20: Susceptible Jessica Peters PA-C LAB MICRO - GENERAL ORDERABLES [facility] [address] [place] [address] * (ABNORMAL) ALBUMIN / CREATININE RATIO, URINE (11/16/2022 3:14 PM EDT) [facility] Albumin, Random Urine 3.54 mg/dL 11/16/2022 11:58 PM EDT [facility] Creatinine, Random Urine 39 mg/dL 11/16/2022 11:58 PM EDT [facility] Albumin / Creatinine Ratio, Urine 91(H) <30 mg/g Creat 11/16/2022 11:58 PM EDT [facility] Urine Urine specimen obtained by clean catch procedure / Unknown Non-blood Collection / Unknown 11/16/2022 3:14 PM EDT 11/16/2022 3:14 PM EDT [facility] - 11/16/2022 11:58 PM EDT Normal: <30 mg/g creatinine High: 30-300 mg/g creatinine Very High: >300 mg/g creatinine Nephrotic: >2200 mg/g creatinine Jessica Peters PA-C LAB URINE ORDERABLE S LABORATORY [address] [address] * TSH (11/16/2022 3:14 PM EDT) Pathologist [facility] TSH 3.08 0.27 - 4.20 uIU/mL 11/17/2022 4:01 AM EDT [facility] Blood Venous blood specimen / Unknown Venipuncture / Unknown 11/16/2022 3:14 PM EDT 11/16/2022 3:14 PM EDT Jessica Peters PA-C LAB BLOOD ORDERABLE S [facility] [address] [place] [address] * (ABNORMAL) LIPID PANEL WITH DIRECT LDL IF TG IS HIGH (11/16/2022 3:14 PM EDT) Triglycerides 136 <=174 mg/dL 11/17/2022 3:22 AM EDT [facility] Comment: Triglyceride Reference Ranges (mg/dL): <150 Acceptable 150-174 Borderline high 175-499 High >=500 Very high Cholesterol 156 <200 mg/dL 11/17/2022 3:22 AM EDT [facility] Comment: Total Cholesterol Reference Ranges (mg/dL): <200 Desirable 200-239 Borderline high >=240 High HDL Cholesterol 38(L) >49 mg/dL 3:22 AM EDT [facility] Comment: HDL Cholesterol Reference Ranges (mg/dL): >=60 High (Desirable) <50 Low (Undesirable) For Females <40 Low (Undesirable) For Males Non-HDL Cholesterol 118 <=159 mg/dL 11/17/2022 3:22 AM EDT [facility] Comment: Non-HDL Cholesterol Reference Range (mg/dL): <100 Target level for high risk ASCVD patient <130 Optimal for general population 130-159 Near optimal for general population 160-189 Borderline High 190-219 High >=220 Very High LDL Cholesterol 91 <=129 mg/dL 11/17/2022 3:22 AM EDT [facility] Comment: LDL Cholesterol Reference Ranges (mg/dL): <70 Target level for high risk ASCVD patient <100 Optimal for general population 100-129 Near optimal for general population 130-159 Borderline high 160-189 High >=190 Very high Blood Venous blood specimen / Unknown Venipuncture / Unknown 11/16/2022 3:14 PM EDT 11/16/2022 3:14 PM EDT Jessica Peters PA-C LAB BLOOD ORDERABLE S [facility] [address] [place] [address] * (ABNORMAL) BNP, NT-PRO (11/16/2022 3:14 PM EDT) BNP, NT-Pro 2,689(H) <300 pg/mL 11/17/2022 3:22 AM EDT [facility] Blood Venous blood specimen / Unknown Venipuncture / Unknown 11/16/2022 3:14 PM EDT 11/16/2022 3:14 PM EDT Narrative [facility] - 11/17/2022 3:22 AM EDT Exclude Heart Failure: <300 pg/mL Diagnose Heart Failure: Age <50 yr: >450 pg/mL 50-75 yr: >900 pg/mL >75 yr: >1800 pg/mL GFR is 30-59 mL/min: >1200 pg/mL or Age-adjusted values GFR <30 mL/min: do not use, not reliable Prognostic threshold: 1000 pg/mL Jessica Peters PA-C LAB BLOOD ORDERABLE S Performing Organization Address [facility] Co de Phone Number [facility]ATORY [facility] [address] [place] [address] * (ABNORMAL) HEMOGLOBIN A1C (11/16/2022 3:14 PM EDT) Hemoglobin A1C 7.9(H) 4.0 - 5.6 % 11/17/2022 1:18 AM EDT [facility] Comment:The use of HbA1c to monitor glycemic status is based on normal hemoglobin and HbA composition. This test should not be used in patients with abnormal hemoglobin that affects the half life of the red blood cell or the in vivo glycation rates. Estimated Average Glucose 180(H) <126 mg/dL 11/17/2022 1:18 AM EDT [facility] Blood Venous blood specimen / Unknown Venipuncture / Unknown 11/16/2022 3:14 PM EDT 11/16/2022 3:14 PM EDT Jessica Peters PA-C LAB BLOOD ORDERABLE S Performing Organization Address [facility] de Phone Number [facility] [address] [place] [address] * (ABNORMAL) COMPREHENSIVE METABOLIC PANEL (11/16/2022 3:14 PM EDT) BUN 26(H) 6 - 20 mg/dL 11/17/2022 3:22 AM EDT [facility] Creatinine 1.3(H) 0.5 - 1.0 mg/dL 11/17/2022 3:22 AM EDT [facility] Estimated Glomerular Filtration Rate 41(L) >=60 mL/min 11/17/2022 3:22 AM EDT [facility] Comment:eGFR is calculated b ased on the CKD-EPI 2020 equation Sodium 140 135 - 146 mmol/L 11/17/2022 3:22 AM EDT [facility] Potassium 4.6 3.5 - 5.1 mmol/L 11/17/2022 [...] Peters PA-C LAB BLOOD ORDERABLE S [facility] [address] [place] [address] documented in this encounter Visit Diagnoses Diagnosis [...] (HCC) documented in this encounter Care Teams Training And Development Director Relationship Specialty Start Date End Date Priyanka Falcon MD [address] [place] [address] [place] [id number] PCP - General Family Medicine 01/04/19 documented as of this encounter
--- OUTSIDE RECORDS SUMMARY | 2023-02-21 00:40 | External Medical Summary ---
Author Name Unknown Address Unknown Organization [id number]:[facility] [address] [address] Laboratory Report Ordering Provider Test Date Status FRAN KELSEY 11/16/2022 15:14:21 Final Normal: <30 mg/g creatinine< br/>High: 30-300 mg/g creatinine
Very High: >300 mg/g creatinine
Nephrotic: >2200 mg/g creatinine Observation Date Value Abnormality Reference (Units ) Status Albumin, Urine 11/16/2022 15:14:21 3.54 (mg/dL) Final Creatinine, Urine 11/16/2022 15:14:21 39 (mg/dL) Final Albumin/Creatinine [Mass Ratio] in Urine 11/16/2022 15:14:21 91 Above high normal <30 (mg/g Creat) Final Performing Location [facility] [address] [address]
--- OUTSIDE RECORDS SUMMARY | 2023-02-21 00:40 | External Medical Summary ---
Author Name Unknown Address Unknown Organization [id number]:[facility] [place] [facility] [address] [facility] [address] Laboratory Report Ordering Provider Test Date Status FRAN KELSEY 11/16/2022 15:14:21 Final Observation Date Value Abnormality Reference (Units ) Status Triglyceride 11/16/2022 15:14:21 136 <=174 ( mg/dL) Final Triglyceride Reference Range s (mg/dL):
<150 Acceptable
150-174 Borderline high
175-499 High
>=500 Very high Cholesterol 11/16/2022 15:14:21 156 <200 (mg /dL) Final Total Cholesterol Reference Ranges (mg/dL):
<200 Desirable
200-239 Borderline high
>=240 High HDL 11/16/2022 15:14:21 38 Below low normal >49 (mg/dL) Final HDL Cholesterol Reference Ra nges (mg/dL):
>=60 High (Desirable)
<50 Low (Undesirable) For Females
<40 Low (Undesirable) For Males NON-HDL CHOLESTEROL 11/16/2022 15:14:21 118 <=159 (mg/dL) Final Non-HDL Cholesterol Referenc e Range (mg/dL):
<100 Target level for high risk ASCVD patient
<130 Optimal for general population
130-159 Near optimal for general population
160-189 Borderline High
190-219 High
>=220 Very High LDL, (calculated) 11/16/2022 15:14:21 91 <= 129 (mg/dL) Final LDL Cholesterol Reference Ra nges (mg/dL):
<70 Target level for high risk ASCVD patient
<100 Optimal for general population
100-129 Near optimal for general population
130-159 Borderline high
160-189 High
>=190 Very high Performing Location [facility] [place] [address] [facility] [address]
--- OUTSIDE RECORDS SUMMARY | 2023-02-21 00:40 | External Medical Summary ---
Author Name Unknown Address Unknown Organization [id number]:[facility]ATORY [facility] [place] - [address] [facility] [address] Laboratory Report Ordering Provider Test Date Status FRAN KELSEY 11/16/2022 15:14:21 Final Observation Date Value Abnormality Reference (Units ) Status Ferritin 11/16/2022 15:14:21 39 13-150 (ng /mL) Final Postmenopausal women have hi gher ferritin levels than pre-menopausal women. The above reference interval is based on pre-menopausal women. Performing Location LABORATORY [facility] - [address] [facility] [address]
--- OUTSIDE RECORDS SUMMARY | 2023-02-21 00:41 | External Medical Summary | Summary of Care ---
Author Name Unknown Organization [facility] Address [address] [place] [address] Phone [phone] Care Team Providers Care Set Making Machine Operator Name Role Phone Priyanka Falcon [...] neurogenic claudication present Eddie Sharp MD [address] [place] [address] Referral ID Status Reason Start Date Expiration Date Visits Requested Visits Authorized [id number] Authorized Specialty Services Required 09/27/[phone] Question Answer Referral Priority Within 10 days (routine) Select spine region: Back - Thoracic/Lumbar Do you have any recent complete loss of bladder or bowel function? No Comments Referred to Dr. Zayas (Orthopaedic Surgery - Spine) Reason for Visit * Reason Comments Follow Up right knee pain Encounter Details Date Type Department Care Team Description 09/27/2022 Office Visit Orthopaedics [address] [phone] Eddie Sharp MD [address] [place] [address] Spondylolysis of lumbar region*; Spinal stenosis of lumbar region, unspecified whether neurogenic claudication present Allergies Active Allergy Reactions Severity Noted Date Comments Naproxen Sodium Bleeding High 12/03/2009 Hs of GI bleed Aspirin Bleeding High 12/03/2009 Doxycycline Neuro complications (Please comment) Medium 10/23/2010 Hallucinations Ibuprofen Bleeding High 12/03/2009 Hx of GI bleed Nitrofurantoin Monohydrate Macrocrystals Neuro complications (Please comment) Low 09/16/2009 Headaches Pbevnqsk-Pooxoheyy-Sm 01/25/2011 Caused eye problems Neosporin 05/30/2003 rash Sulfa Antibiotics 05/11/2002 nausea & vomiting Tramadol Hcl Unknown 12/03/2009 documented as of this encounter (statuses as of 09/27/2022) Medications Medication Sig Dispensed Refills Start Date End Date Status ASPIRIN 81 MG PO TABS None Entered 0 Active [facility] VITAMIN B12 1000 MCG PO TABSIndications:Vi tamin B deficiency 1 TABLET DAILY 1 Tab 0 04/27/2010 Active [employer] ULTRASOFT LANCETS MISCIndications:DM type 2, goal A1c [...] FOR ITCHING 30 g 2 05/28/2020 Active [employer] Verio In Vitro Strip (Glucose Blood)Indications: Type 2 diabetes mellitus with hemoglobin A1c goal of less than 7.5% (HCC) Use to test blood sugar once a day DX e11.9 100 Strip 3 05/14/2021 Active [employer] Verio Flex System w/Device KitIndications:Typ e 2 [...] goal of less than 7.0% ([facility]) USE TO TEST ONCE PER DAY 100 Strip 3 10/09/2021 Active Warfarin Sodium 2 MG Oral Tablet (Coumadin)Indicati ons:Atrial flutter, unspecified type ([facility]),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,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 Use to test blood sugar once a day DX e11.9 100 Each 3 09/10/2022 Active documented as of this encounter (statuses as of 09/27/2022) Active Problems Problem Noted Date Typical atrial [...] as of this encounter (statuses as of 09/27/2022) Resolved Problems Problem Noted Date Resolved Date [...] as of this encounter (statuses as of 09/27/2022) Immunizations Name Administration Dates Next Due COVID-19 mRNA, LNP-s, No Pre serve, 2-Dose Series (Moderna) 01/13/2021,05/16/2020,04/17/2020 Covid-19 Mrna, Lnp-s, No Pre serve, Booster (Moderna) 07/26/2021 Covid-19, Mrna, Lnp-s, Pf, B ivalent, 50 Mcg, IM, 12 yrs and above (Moderna) 12/27/2021 H1N1 2009 Influenza, IM 03/20/2009 Pneumococcal Conjugate Vacc, 13 Valent (Prevnar) 07/29/2014 Seasonal Influenza, Quadriva lent Hd (Fluzone Hd) 12/27/2021 Seasonal Influenza, Quadriva lent Hd, 65+ Yrs 01/11/2021 Seasonal Influenza, Quadriva lent, No Preserve, 6 Mons & Above, IM 12/26/2017,01/11/2017 Seasonal Influenza, Quadriva lent, No Preserve, Adjuvanted, 65+ Yrs, IM 12/12/2019 Seasonal Influenza, Quadriva lent, No Preserve, IM [...] as of this encounter Progress Notes * Eddie Sharp MD - 09/27/2022 9:44 AM EDT Cristine Benitez [id number] Cristine Benitez is a 85 year old female who presents for follow-up to [facility] for L knee pain and Right hip/leg pain please note I also see her for bilateral knee injury/pain and R hip pain. Cristine Benitez is here with her son Saw her originally for BL knee pain on 08/12/2021 Most recent complete visit 09/01/2022 Quality: reviewed and agree with Nursing Notes for HPI elements History: History on 08/12/2021 - New patient B/l knee pain 10/20 with activity x-ray on 07/28/21 Right hip pain 07/28/21 Right hip greater trochanteric steroid injection on Dr. Yeboah 06/02/21 Left knee injection in february from Dr. Douglas 02/12/21 was Synvisc 1. She had also received Synvisc-One injections from Rheumatology in August 07, 2020, November 04, 2019, July 13, 2018, and March PT for left knee 3 years ago. Patient has not had any right knee injections. Denies any recent injury Note: Patient is a diabetic and most recent hemoglobin A1c from 08/23/2021 value was 8.1 Additional history 09/23/2021: Last injection from 08/12/21 was Sodium Hyaluronate (Durolane) injectione, R hip injection was steroid. States that she is not having pain in the knees. States L>R, sometimes feels a "jab" sensation. States R hip is doing very well Additional history 10/14/2021: Left knee pain has improved following the steroid injection performed on 09/23/2021. Like injectionthe right knee. Lateral hip pain is improving greater trochanteric steroid injection performed on 08/12/2021 has continued to help. However she has been working with a chiropractor who suspect she has lumbar spinal stenosis. She has not had x-rays in like to have this obtained. Additional history 10/28/2022: MRI of the lumbar spine was obtained it is described below No change in symptoms Additional history 06/30/2022 F/u left knee pain with activity, and swelling x 6 mths Left knee steriod injection 09/23/2021 right 10/28/2021 B/l knee pain injection Durolane 08/12/21 Last A1C 12/03/21 7.6 Last x-ray 07/28/2022 Also new issue of right thumb pain and clicking. Patient will get pain at the base of the thumb in on 1 episode her thumb was not movable. She has been notices for 2 weeks. Symptoms are improving. No known injury. Additional history 07/21/2022 Patient has not noted much benefit in her left knee following steroid injection. Her trigger thumb symptoms have been improving. Additional history 09/01/2022: Patient's visit today was scheduled for viscosupplementation with Durolane of the left knee. However in the interim patient has also had reoccurrence of right hip and leg pain. A significant component of the pain is focused at her greater trochanter. I previously provided her a greater trochantericsteroid injection which helped her significantly that most recent injection was performed over a year ago on 08/12/2021. She also follows with pain management. See further discussion below Since that visit: Did not receive any benefit from the greater trochanteric steroid injection I performed previous visit. 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 Tobacco Use Smoking status: Never Smokeless tobacco: Never Vaping Use Vaping Use: Never used Substance and Sexual Activity Alcohol use: Not Currently Comment: occassional wine/beer Drug use: No Sexual activity: Not Currently Partners: Male Other Topics Concern Service No Blood Transfusions No Caffeine Concern No Occupational Exposure No Hobby Hazards No Sleep Concern No Stress Concern No Weight Concern Yes Special Diet Yes Back Care Not Asked Exercise Yes Bike Helmet Not Asked Seat Belt Yes Self-Exams Yes Social History Narrative Not on file Social Determinants of Health Financial Resource Strain: Not on file Food Insecurity: Not on file Transportation Needs: Not on file Physical Activity: Not on file Stress: Not on file Social Connections: Not on file Intimate Partner Violence: Not on file Housing Stability: Not on file Physical Exam Constitutional: Generally well-nourished and in no acute distress Psychiatric: Mood and Affect normal Eyes: EOMI Respiratory: Normal respiratory effort with regular rate and rhythm Limited left knee evaluation No erythema Small effusion Greatest tenderness was across the medial joint Full range of motion but full flexion was painful Radiology (I have personally reviewed the following films): 01/30/2022: MRI lumbar spine (obtained at outside facility, images scan to System, full report available in EHR) 1. Severe now stenosis at L3-4 and L4-5 2. Severe foraminal stenosis from L2-3 through L5-S1 3. Multilevel noncompressive disc bulges Number for mild anterolisthesis at L3-4 and L4-5. No demonstrated spondylolysis 10/14/2021: Four view x-ray of the lumbar spine FINDINGS There is mild anterolisthesis L5 on S1, at least mild anterolisthesis of L4 on L5, mild anterolisthesis of L3 on L4, mild retrolisthesis of L2 on L3, and minimal retrolisthesis of L1 on L2. Moderate multilevel degenerative changes with posterior facet disease, degenerative change between the spinous processes, scattered intervertebral disc space loss and at least mild osteophytes. There is probable central and neural canal stenosis as result of degenerative changes. Mild dextrocurvature of lumbar spine with coronal plane. Axial joint space loss of the right greater than left hips. IMPRESSION IMPRESSION Moderate multilevel degenerative changes, with multilevel listhesis 07/28/2021: Five view x-ray of each knee FINDINGS Right knee: No significant joint malalignment. Moderate tricompartmental osteoarthritis. No fracture or aggressive osseous lesion identified. Small joint effusion. Vascular calcifications. Left knee: Genu varum. Tricompartmental osteoarthritis, severe in the medial compartment. No fracture or aggressive osseous lesion identified. Moderate joint effusion. Vascular calcifications. IMPRESSION IMPRESSION Osteoarthritis of both knees, left greater than right. 07/28/2021: View x-ray of the right hip including AP pelvis FINDINGS No significant joint malalignment. Mild osteoarthritis of both hips. No fracture or aggressive osseous lesion identified. Multilevel intervertebral disc degeneration in the visualized lumbar spine. Mild bilateral sacroiliac osteoarthritis. Vascular calcifications. IMPRESSION IMPRESSION Degenerative findings as above Assessment and Plan: 1) chronic bilateral knee pain Secondary to bilateral DJD which is severe in the medial compartment of the left knee and moderate throughout the right knee Left knee injection in february from Dr. Douglas 02/12/21 was Synvisc 1. She had also received Synvisc-One injections from Rheumatology in August 07, 2020, November 04, 2019, July 13, 2018, and March Bilateral Sodium Hyaluronate (Durolane) 60mg/3ml 3ml injected intra-articular 08/12/2021 This has helped her significantly initially. Intra-articular steroid injection performed in the right knee 10/14/2021 - currently doing well Intra-articular steroid injection of the left knee performed 09/23/2021 helped, this was repeated 06/30/2022 and it did not help much. However, she is reporting the pain as a toothache like pain that is in the knee but can also radiate the whole way down the leg. Please see discussion below on lumbar stenosis. Durolane injected into L knee only 09/01/2022 - has not noted benefit from this yet. Discussed with her that I recommend giving it 6 weeks before fully judging the shot. Will follow-up p.r.n. 2) chronic right hip pain Right hip greater trochanteric steroid injection on Dr. Yeboah 06/02/21 did give her benefit. Discuss that is typically slightly early to repeat injection, however, she has a very important birthing constitution party next weekend strongly desired to try another injection. Right greater trochanteric steroid injection performed with ultrasound guidance 08/12/2021 helped her significantly. However that was over a year ago and she is had recurrence of pain in the right lateral hip region. 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 Greater trochanteric bursa steroid injection performed 09/01/2022 did not help her at all. I suspect more of this is from her lumbar spine Recommended following up with pain management, however, her and her son requested spine surgery referral 1st. 3) concern for lumbar spinal stenosis from her chiropractor MRI showed: 1. Severe now stenosis at L3-4 and L4-5 2. Severe foraminal stenosis from L2-3 through L5-S1 3. Multilevel noncompressive disc bulges Number for mild anterolisthesis at L3-4 and L4-5. No demonstrated spondylolysis Seen by Dr. Still pain management on 12/28/2021 Diagnosed with severe lumbar spinal stenosis, osteoarthritis of the left knee and left hip flexion weakness. Noted symptoms had improved some with therapy Currently deferring any epidural steroid injections given need for discontinuation of Coumadin She was to complete course of therapy I recommended she return to pain management evaluation. However both her and her son would like to have spine surgery evaluation 1st. I place this referral. She also has had some benefit in the past from chiropractic treatments and plans returned with a chiropractor. I provided her MRI reports of the chiropractor can review that for any treatments. Note: Patient is a diabetic. Most recent hemoglobin A1c 7.6 from 12/03/2021 Eddie Sharp MD [facility] Orthopaedics [address] [phone] documented in this encounter Nursing Notes * Isa Meza LPN - 09/27/2022 9:45 AM EDT F/U right knee pain Last Duraolane injejecton 09/01/2022 left knee Right Tochanteric bursa 09/01/2022 B/l knee pain injection Durolane 08/12/21 last steroid injection 06/30/2022 Left knee steriod injection 09/23/2021 right 10/28/2021 Last A1C 12/03/21 7.6 last x-ray 07/28/2022 F/u MRI of lower spine 10/21/21 lower back pain right hip documented in this encounter Plan of Treatment Upcoming Encounters Date Type Specialty Care Team Description 10/25/2022 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 Pharmacy [facility], [address] [place] [phone] 11/08/2022 Office Visit Family Medicine Priyanka Falcon MD [address] [place] [address] [place] [phone] 01/19/2023 Office Visit Cardiology Cameron Becerra PA-C [address] [place] [address] 02/03/2023 Office Visit Orthopedic Surgery Celso Zayas MD [address] [place] [phone] Scheduled Referrals Name Type Priority Associated Diagnoses Orde r Schedule SPINE SURGERY REFERRAL OP Referral Within 10 days (routine) Spondylolysis of lumbar region Spinal stenosis of lumbar region, unspecified whether neurogenic claudication present Ordered: 09/27/2022 Health Maintenance Due Date Last Done Comments Zoster Vaccines (2 of 3) 08/02/2010 06/07/2010 Depression Screening, Annual for Pts 12 and Over 08/03/2021 08/03/2020 CKD PHOS USE SMARTSET 03592 01/06/202212/12, 05/28/2020, 04/03/2019, Additional history exists HbA1c 06/02/2022 12/03/2021, 04/13, 01/06/2021, Additional history exists Influenza Vaccine (FLU shot) (#1) 2022 12/27/2021, 01/11/2021, 12/12/2019, Additional history exists CKD HGB USE SMARTSET 37836 12/03/202212/03, 12/03/2021, 04/28/2021, Additional history exists DIABETES-FOOT EXAM 02/08/2023 02/08/2022, 0 05/28/2020, 05/17/2019, Additional history exists DIABETES-EYE EXAM 03/15/2023 03/15/2022, , 09/26/2019, Additional history exists Albumin/Creatinine Ratio 03/29/2023 023, 01/06/2021, 12/21/2016, Additional history exists DXA Scan 12/09/2027 12/08/2020, 05/12, 05/30/2008 DTaP,Tdap,and Td Vaccines (2 - Td or Tdap) 11/28/2029 11/29/2019 (Declined), 09/11/2007 Pneumococcal Vaccine: 65+ Years Completed 07/29/2014, 10/07/2002 COVID-19 Vaccine Completed 12/27/2021, , 01/13/2021, Additional history exists GARDASIL-HPV IMMUNIZATION SERIES Aged [...] as of this encounter Visit Diagnoses Diagnosis Spondylolysis of lumbar region- Primary Acquired spondylolisthesis Spinal stenosis of lumbar region, unspecified whether neurogenic claudication present documented in this encounter Care Teams Set Making Machine Operator Relationship Specialty Start Date End Date Priyanka Falcon MD [address] [place] [address] [place] [address] PCP - General Family Medicine 01/04/19 documented as of this encounter
--- OUTSIDE RECORDS SUMMARY | 2023-02-21 00:41 | External Medical Summary ---
Author Name Unknown Address Unknown Organization : Laboratory Report Ordering Provider Test Date Status JEREMYZURDO COX 10/25/2022 13:55:09 Final Therapeutic ranges for non-o perative patients:
Prophylaxsis/treatment of DVT: (Range:2.0-3.0)
Treatment of pulmonary embolism:(Range:2.0-3.0)
Prevention of systemic embolism from:
-tissue heart valves
-acute myocardial infarction
-valvular heart disease
-atrial fibrillation
(Range: 2.0-3.0)
Mechanical prosthetic valves: (Range: 2.5-3.5) Observation Date Value Abnormality Reference (Units ) Status INR in Capillary blood by Coagulation assay 10/25/2022 13:55:09 2.6 (INR) Final Performing Location
--- OUTSIDE RECORDS SUMMARY | 2023-02-21 00:41 | External Medical Summary | Summary of Care ---
Author Name Unknown Organization [facility] Address [address] [place] [address] Phone [phone] Care Team Providers Care Chassis Inspector Name Role Phone Priyanka Falcon MD [...] Sharp MD [address] [place] [address] Referral ID Status Reason Start Date Expiration Date Visits Requested Visits Authorized [id number] Authorized Specialty Services Required 09/27/[phone] [...] Care Team Description 09/27/2022 Office Visit Orthopaedics [address] [phone] Eddie Sharp MD [address] [place] [phone] Spondylolysis of lumbar region*; Spinal stenosis of lumbar region, unspecified whether neurogenic claudication present Allergies Active Allergy Reactions Severity Noted Date Comments Naproxen Sodium Bleeding High 12/03/2009 Hs of GI bleed Aspirin Bleeding High 12/03/2009 Doxycycline Neuro complications (Please comment) Medium 10/23/2010 Hallucinations Ibuprofen Bleeding High 12/03/2009 Hx of GI bleed Nitrofurantoin Monohydrate Macrocrystals Neuro complications (Please comment) Low 09/16/2009 Headaches Kbfcwfsn-Tlluubyuw-Sf 01/25/2011 Caused eye problems Neosporin 05/30/2003 rash Sulfa Antibiotics 05/11/2002 nausea & vomiting Tramadol Hcl Unknown 12/03/2009 documented as of this encounter (statuses as of 09/27/2022) Medications Medication Sig Dispensed Refills Start Date End Date Status ASPIRIN 81 MG PO TABS None Entered 0 Active [facility] VITAMIN B12 1000 MCG PO TABSIndications:Vi tamin B deficiency 1 TABLET DAILY 1 Tab 0 04/27/2010 Active [employer] ULTRASOFT LANCETS MISCIndications:DM type 2, goal A1c [...] FOR ITCHING 30 g 2 05/28/2020 Active [employer] Verio In Vitro Strip (Glucose Blood)Indications: Type 2 diabetes mellitus with hemoglobin A1c goal of less than 7.5% (HCC) Use to test blood sugar once a day DX e11.9 100 Strip 3 05/14/2021 Active [employer] Verio Flex System w/Device KitIndications:Typ e 2 [...] less than 7.0% ([facility]) USE TO TEST ONCE PER DAY 100 Strip 3 10/09/2021 Active Warfarin Sodium 2 MG Oral Tablet (Coumadin)Indicati ons:Atrial flutter, unspecified type ([facility]),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,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,PAF (paroxysmal atrial fibrillation) ([facility]) Take 4 mg (2 tablets) on [...] less than 7.5% ([facility]) TAKE 1 TABLET BY MOUTH DAILY [...] Tablet 1 09/08/2022 Active OneTouch Delica Plus [id number] ns:Type 2 diabetes mellitus with hemoglobin A1c [...] - 09/27/2022 9:44 AM EDT Cristine Benitez [phone] Cristine Benitez is a 85 year old female who presents for follow-up to [facility] for L knee [...] Sharp MD Primary Care Sports Medicine Orthopaedics [address] [phone] documented in this encounter Nursing Notes * [...] Specialty Care Team Description 10/25/2022 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 Pharmacy [place], [address] [place] [phone] 11/08/2022 Office Visit Family Medicine Priyanka Falcon MD [address] [place] [address] [place] [phone] 01/19/2023 Office Visit Cardiology Cameron Becerra PA-C [address] [place] [phone] 02/03/2023 Office Visit Orthopedic Surgery Celso Zayas MD [address] [place] [phone] Scheduled Referrals Name Type Priority Associated Diagnoses Orde r Schedule SPINE SURGERY REFERRAL OP Referral Within 10 days (routine) Spondylolysis of lumbar region Spinal stenosis of lumbar region, unspecified whether neurogenic claudication present Ordered: 09/27/2022 Health Maintenance Due Date Last Done Comments Zoster Vaccines (2 of 3) 08/02/2010 06/07/2010 Depression Screening, Annual for Pts 12 and Over 08/03/2021 08/03/2020 CKD PHOS USE SMARTSET 83204 01/06/202212/12, 05/28/2020, 04/03/2019, Additional history exists HbA1c 06/02/2022 12/03/2021, 04/13, 01/06/2021, Additional history exists Influenza Vaccine (FLU shot) (#1) 2022 12/27/2021, 01/11/2021, 12/12/2019, Additional history exists CKD HGB USE SMARTSET 17178 12/03/202212/03, 12/03/2021, 04/28/2021, Additional history exists DIABETES-FOOT [...] present documented in this encounter Care Teams Chassis Inspector Relationship Specialty Start Date End Date Priyanka Falcon MD [address] [place] [address] [place] [address] PCP - General Family Medicine 01/04/19 documented as of this encounter
--- OUTSIDE RECORDS SUMMARY | 2023-02-21 00:41 | External Medical Summary | Summary of Care ---
Author Name Unknown Organization [facility] Address [address] [place] [address] Phone [phone] Care Team Providers Care Lighter Captain Name Role Phone Priyanka Falcon MD Primary Care Prov ider Reason for Visit * Reason Comments Dosage Adjustment In Person (Anticoag Cl inic) Encounter Details Date Type Department Care Team Description 09/27/2022 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 Pharmacy, [address] [place] [address] [place] [address] PAF (paroxysmal atrial fibrillation) ([facility])*; 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 management encounter; prison current use of anticoagulant therapy Allergies Active Allergy Reactions Severity Noted Date Comments Naproxen Sodium Bleeding High 12/03/2009 Hs of GI bleed Aspirin Bleeding High 12/03/2009 Doxycycline Neuro complications (Please comment) Medium 10/23/2010 Hallucinations Ibuprofen Bleeding High 12/03/2009 Hx of GI bleed Nitrofurantoin Monohydrate Macrocrystals Neuro complications (Please comment) Low 09/16/2009 Headaches Qewggges-Maqabyows-Fi 01/25/2011 Caused eye problems Neosporin 05/30/2003 rash [...] goal of less than 7.5% ([facility]) Use to test blood sugar once a day DX e11.9 100 Strip 3 05/14/2021 Active OneTouch Verio Flex System w/Device KitIndications:Typ e 2 diabetes mellitus with hemoglobin A1c goal of less than 7.5% ([facility]) Use as directed . Use to test blood sugar Dx e11.9 1 Kit 0 05/14/2021 Active amLODIPine Besylate 5 MG Oral Tablet (Norvasc)Indicatio ns:Peripheral edema Take 0.5 Tablets by mouth in the morning. 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,PAF (paroxysmal atrial fibrillation) ([facility]) Take 4 mg (2 tablets) [...] Tablet 1 09/08/2022 Active OneTouch Delica Plus [id number] ns:Type 2 diabetes mellitus with hemoglobin A1c [...] (Prevnar) 07/29/2014 Pneumococcal Polysaccharide PPV23 (Pneumovax) 10/07/2002 Seasonal Influenza, Quadriva lent Hd (Fluzone Hd) [...] as of this encounter Progress Notes * Jeremy Curtis, [facility] - 09/27/2022 9:08 AM EDT Medication Therapy Disease Management - 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 Patient: Cristine Benitez : 1935 Patient presents with sonCipriano Current Warfarin Dose As of 09/27/2022 Warfarin maintenance plan: 4 mg (2 mg x 2) every Wed; 2 mg (2 mg x 1) all other days Patient-Reported Symptoms: Patient Findings Negatives: Signs/symptoms of thrombosis, Signs/symptoms of bleeding, Change in health, Change in alcohol use, Change in activity, Upcoming invasive procedure, Missed doses, Extra doses, Change in medications, Change in diet/appetite, Bruising INR Result As of 09/27/2022 INR goal: 2.0-3.0 INR used for dosin.0 (09/27/2022) Warfarin Plan As of 09/27/2022 Full warfarin instructions: 4 mg every Wed; 2 mg all other days No change documented: Jeremy Curtis RPh Next INR check: 10/25/2022 Additional Dosing Information: Description Write tablets only on card Repeat PT/INR in 4 week(s) Weekly dose: not changed Jeremy Curtis RPh Clinical Pharmacist 09/27/2022, 9:08 AM documented in this encounter Miscellaneous Notes * Addendum Note - Jeremy Curtis RPh - 09/27/2022 9:28 AM EDTAddended by: JEREMY CURTIS on: 09/27/2022 09:28 AM Modules accepted: Level of Service documented in this encounter Plan of Treatment Upcoming Encounters Date Type Specialty Care Team Description 10/25/2022 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 Pharmacy [address] [place] [phone] 11/08/2022 Office Visit Family Medicine Priyanka Falcon MD [address] [place] [address] [place] [address] 01/19/2023 Office Visit Cardiology Cameron Becerra PA-C [address] [place] [phone] Health Maintenance Due Date Last Done Comments Zoster Vaccines (2 of 3) 08/02/2010 06/07/2010 Depression Screening, Annual for Pts 12 and Over 08/03/2021 08/03/2020 CKD PHOS USE SMARTSET 52294 01/06/2022/09/2020, 05/28/2020, 04/03/2019, Additional history exists HbA1c 06/02/2022 12/03/2021, 04/13, 01/06/2021, Additional history exists Influenza Vaccine (FLU shot) (#1) 2022 12/27/2021, 01/11/2021, 12/12/2019, Additional history exists CKD HGB USE SMARTSET 52216 12/03/202212/03, 12/03/2021, 04/28/2021, Additional history exists DIABETES-FOOT [...] Comments INR FINGERSTICK, POINT OF CARE STAT 09/27/2022 9:11 AM EDT PAF (paroxysmal atrial fibrillation) (HCC) 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 management encounter prison current use of anticoagulant therapy documented in this encounter Results * INR FINGERSTICK, POINT OF CARE (09/27/2022 9:11 AM EDT) Fingerstick INR 3.0 INR 9:12 AM EDT [facility] [place] [facility] Blood 09/27/2022 9:11 AM EDT 09/27/2022 9:12 AM EDT Narrative [facility] [place] [facility] - 09/27/2022 9:12 AM EDT Therapeutic ranges for non-operative patients: Prophylaxsis/treatment of DVT: (Range:2.0-3.0) Treatment of pulmonary embolism:(Range:2.0-3.0) Prevention of systemic embolism from: -tissue heart valves -acute myocardial infarction -valvular heart disease -atrial fibrillation (Range: 2.0-3.0) Mechanical prosthetic valves: (Range: 2.5-3.5) Jeremy Curtis [facility] POINT OF CARE TEST DOCKED DEVICE UNSOLICITED RESULTS [facility] [place] [address] [place] [address] [place] [phone] documented in this encounter Visit Diagnoses Diagnosis PAF (paroxysmal atrial fibrillation) (HCC)- Primary Atrial fibrillation 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 management encounter 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
--- OUTSIDE RECORDS SUMMARY | 2023-02-21 00:41 | External Medical Summary | Summary of Care ---
Author Name Unknown Organization [facility] Address [address] [place] [address] Phone [phone] Care Team Providers Care Salesperson Recreational Vehicles Name Role Phone Priyanka Falcon MD Primary Care Prov ider Reason for Visit * Reason Comments Dosage Adjustment In Person (Anticoag Cl inic) Encounter Details Date Type Department Care Team Description 10/25/2022 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 Pharmacy, [address] [place] [address] [place] [address] PAF (paroxysmal atrial fibrillation) ([facility])*; 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 management encounter; assisted current use of anticoagulant therapy Allergies Active Allergy Reactions Severity Noted Date Comments Naproxen Sodium Bleeding High 12/03/2009 Hs of GI bleed Aspirin Bleeding High 12/03/2009 Doxycycline Neuro complications (Please comment) Medium 10/23/2010 Hallucinations Ibuprofen Bleeding High 12/03/2009 Hx of GI bleed Nitrofurantoin Monohydrate Macrocrystals Neuro complications (Please comment) Low 09/16/2009 Headaches Eddmyxuk-Gvwefxlqw-Sy 01/25/2011 Caused eye problems Neosporin 05/30/2003 rash Sulfa Antibiotics 05/11/2002 nausea & vomiting Tramadol Hcl Unknown 12/03/2009 documented as of this encounter (statuses as of 10/25/2022) Medications Medication Sig Dispensed Refills Start Date [...] 7.5% ([facility]) Use to test blood sugar once a day DX e11.9 100 Strip 3 05/14/2021 Active OneTouch Verio Flex System w/Device KitIndications:Typ e 2 diabetes mellitus with hemoglobin A1c goal of less than 7.5% ([facility]) Use as directed . 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 Use to test blood sugar once a day DX e11.9 100 Each 3 09/10/2022 Active documented as of this encounter (statuses as of 10/25/2022) Active Problems Problem Noted Date Typical atrial [...] as of this encounter (statuses as of 10/25/2022) Resolved Problems Problem Noted Date Resolved Date [...] as of this encounter (statuses as of 10/25/2022) Immunizations Name Administration Dates Next Due COVID-19 [...] this encounter Progress Notes * Freda Curtis, [facility] - 10/25/2022 1:49 PM EDT Medication Therapy Disease Management - 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 Patient: Cristine Benitez | : 1935 Subjective Patient presents with sonCipriano Patient-Reported Symptoms: Patient Findings Positives: Upcoming invasive procedure Negatives: Signs/symptoms of thrombosis, Signs/symptoms of bleeding, Change in health, Change in alcohol use, Change in activity, Missed doses, Extra doses, Change in medications, Change in diet/appetite, Bruising Objective Current Warfarin Dose As of 10/25/2022 Warfarin maintenance plan: 4 mg (2 mg x 2) every Wed; 2 mg (2 mg x 1) all other days INR Result As of 10/25/2022 INR goal: 2.0-3.0 INR used for dosin.6 (10/25/2022) Assessment & Plan Warfarin Plan As of 10/25/2022 Full warfarin instructions: 4 mg every Wed; 2 mg all other days No change documented: Freda Curtis RPh Next INR check: 11/29/2022 Repeat PT/INR in 5 week(s) Weekly dose: not changed Additional Dosing Information: Possible upcoming hip/knee surgery. Working with ortho. Current appointment not scheduled until 01/2023. Description Write tablets only on card Freda Curtis RPh Clinical Pharmacist 10/25/2022, 1:50 PM documented in this encounter Plan of Treatment Upcoming Encounters Date Type Specialty Care Team Description 11/16/2022 Office Visit Family Medicine Jessica Baugh PA-C [address] [place] [address] [place] [phone] 11/29/2022 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 Pharmacy [address] [place] [address] 01/19/2023 Office Visit Cardiology Cameron Becerra PA-C [address] [place] [phone] 02/03/2023 Office Visit Orthopedic Surgery Celso Zayas MD [address] [place] [phone] Health Maintenance Due Date Last Done Comments Zoster Vaccines (2 of 3) 08/02/2010 06/07/2010 Depression Screening, Annual for Pts 12 and Over 08/03/2021 08/03/2020 CKD PHOS USE SMARTSET 63997 01/06/202212/12, 05/28/2020, 04/03/2019, Additional history exists HbA1c 06/02/2022 12/03/2021, 04/13, 01/06/2021, Additional history exists Influenza Vaccine (FLU shot) (#1) 2022 12/27/2021, 01/11/2021, 12/12/2019, Additional history exists CKD HGB USE SMARTSET 75893 12/03/202212/03, 12/03/2021, 04/28/2021, Additional history exists DIABETES-FOOT [...] Comments INR FINGERSTICK, POINT OF CARE STAT 10/25/2022 1:55 PM EDT PAF (paroxysmal atrial fibrillation) (HCC) 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 10/25/2022 1:57 PM EDT Therapeutic ranges for non-operative patients: Prophylaxsis/treatment of DVT: (Range:2.0-3.0) Treatment of pulmonary embolism:(Range:2.0-3.0) Prevention of systemic embolism from: -tissue heart valves -acute myocardial infarction -valvular heart disease -atrial fibrillation (Range: 2.0-3.0) Mechanical prosthetic valves: (Range: 2.5-3.5) Freda Curtis [facility] POINT OF CARE TEST DOCKED DEVICE UNSOLICITED RESULTS [facility] [address] [place] [address] [place] [phone] documented in this encounter Visit Diagnoses Diagnosis PAF (paroxysmal atrial fibrillation) (HCC)- Primary Atrial fibrillation 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 management encounter Encounter for therapeutic drug monitoring assisted current use of anticoagulant therapy documented in this encounter Care Teams Salesperson Recreational Vehicles Relationship Specialty Start Date End Date Priyanka Falcon MD [address] [place] [address] [place] [phone] PCP - General Family Medicine 01/04/19 documented as of this encounter"
--- OUTSIDE RECORDS SUMMARY | 2023-02-21 00:41 | External Medical Summary | Summary of Care ---
Author Name Unknown Organization [facility] Address [address] [place] [address] Phone [phone] Care Team Providers Care Parts And Service Manager Name Role Phone Priyanka Falcon MD Primary Care Prov ider Reason for Visit * Reason Comments Dosage Adjustment In Person (Anticoag Cl inic) Encounter Details Date Type Department Care Team Description 09/27/2022 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 Pharmacy, [address] [place] [address] [place] [address] PAF (paroxysmal atrial fibrillation) ([facility])*; 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 management encounter; residential current use of anticoagulant therapy Allergies Active Allergy Reactions Severity Noted Date Comments Naproxen Sodium Bleeding High 12/03/2009 Hs of GI bleed Aspirin Bleeding High 12/03/2009 Doxycycline Neuro complications (Please comment) Medium 10/23/2010 Hallucinations Ibuprofen Bleeding High 12/03/2009 Hx of GI bleed Nitrofurantoin Monohydrate Macrocrystals Neuro complications (Please comment) Low 09/16/2009 Headaches Gyresvzy-Twbevrrgo-Dr 01/25/2011 Caused eye problems Neosporin 05/30/2003 rash [...] of less than 7.5% ([facility]) Use to test blood sugar once a day DX e11.9 100 Strip 3 05/14/2021 Active OneTouch Verio Flex System w/Device KitIndications:Typ e 2 diabetes mellitus with hemoglobin A1c goal of less than 7.5% ([facility]) Use as directed . 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,PAF (paroxysmal atrial fibrillation) ([facility]) Take 4 mg (2 tablets) on Wednesdays; [...] Tablet 1 09/08/2022 Active OneTouch Delica Plus [id number] ns:Type 2 diabetes mellitus with hemoglobin A1c [...] this encounter Progress Notes * Jeremy Curtis, [facility] - 09/27/2022 9:08 AM EDT Medication Therapy [...] Encounters Date Type Specialty Care Team Description 09/27/2022 Office Visit Orthopedics Eddie Sharp MD [address] [place] [phone] 10/25/2022 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 Pharmacy [address] [place] [address] 11/08/2022 Office Visit Family Medicine Priyanka Falcon MD [address] [place] [address] [place] [address] 01/19/2023 Office Visit Cardiology Cameron Becerra PA-C [address] [place] [address] Health Maintenance Due Date Last Done Comments Zoster Vaccines (2 of 3) 08/02/2010 06/07/2010 Depression Screening, Annual for Pts 12 and Over 08/03/2021 08/03/2020 CKD PHOS USE SMARTSET 55135 01/06/202212/12, 05/28/2020, 04/03/2019, Additional history exists HbA1c 06/02/2022 12/03/2021, 04/13, 01/06/2021, Additional history exists Influenza Vaccine (FLU shot) (#1) 2022 12/27/2021, 01/11/2021, 12/12/2019, Additional history exists CKD HGB USE SMARTSET 15804 12/03/202212/03, 12/03/2021, 04/28/2021, Additional history exists DIABETES-FOOT [...] (paroxysmal atrial fibrillation) (HCC) 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 management encounter 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 documented in this encounter Results * INR FINGERSTICK, POINT OF CARE (09/27/2022 9:11 AM EDT) Fingerstick INR 3.0 INR 9:12 AM EDT [facility] [place] [facility]- Blood 09/27/2022 9:11 AM EDT 09/27/2022 9:12 AM EDT Narrative [facility] [place] [facility]- - 09/27/2022 9:12 AM EDT Therapeutic ranges for non-operative patients: Prophylaxsis/treatment of DVT: (Range:2.0-3.0) Treatment of pulmonary embolism:(Range:2.0-3.0) Prevention of systemic embolism from: -tissue heart valves -acute myocardial infarction -valvular heart disease -atrial fibrillation (Range: 2.0-3.0) Mechanical prosthetic valves: (Range: 2.5-3.5) Jeremy Curtis [facility] POINT OF CARE TEST DOCKED DEVICE UNSOLICITED RESULTS [facility] [place] [address] [place] [address] [place] [phone] documented in this encounter Visit Diagnoses Diagnosis PAF (paroxysmal atrial fibrillation) (HCC)- Primary Atrial fibrillation 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 management encounter Encounter for therapeutic drug monitoring 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 documented in this encounter Care Teams Parts And Service Manager Relationship Specialty Start Date End Date Priyanka Falcon MD [address] [place] [address] [place] [phone] PCP - General Family Medicine 01/04/19 documented as of this encounter
--- OUTSIDE RECORDS SUMMARY | 2023-02-21 00:42 | External Medical Summary | Summary of Care ---
Author Name Unknown Organization [facility] Address [address] [place] [address] Phone [phone] Care Team Providers Care Rag Grader Name Role Phone Priyanka Falcon MD Primary Care Prov ider Reason for Visit * Reason Comments Dosage Adjustment In Person (Anticoag Cl inic) Encounter Details Date Type Department Care Team Description 09/08/2022 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 Pharmacy, [address] [place] [address] [place] [address] PAF (paroxysmal atrial fibrillation) ([facility])*; 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 management encounter; detention current use of anticoagulant therapy Allergies Active Allergy Reactions Severity Noted Date Comments Naproxen Sodium Bleeding High 12/03/2009 Hs of GI bleed Aspirin Bleeding High 12/03/2009 Doxycycline Neuro complications (Please comment) Medium 10/23/2010 Hallucinations Ibuprofen Bleeding High 12/03/2009 Hx of GI bleed Nitrofurantoin Monohydrate Macrocrystals Neuro complications (Please comment) Low 09/16/2009 Headaches Cxsepknq-Sdfmpwimr-Hm 01/25/2011 Caused eye problems Neosporin 05/30/2003 rash Sulfa Antibiotics 05/11/2002 nausea & vomiting Tramadol Hcl Unknown 12/03/2009 documented as of this encounter (statuses as of 09/08/2022) Medications Medication Sig Dispensed Refills Start Date [...] of less than 7.5% ([facility]) Use to test blood sugar once a day DX e11.9 100 Strip 3 05/15/19 22 Active OneTouch Delica Plus [id number] ons:Type 2 diabetes mellitus with hemoglobin A1c goal of less than 7.5% ([facility]) Use as directed . Use to test blood sugar once a day DX e11.9 100 Each 3 05/15/19 22 Active OneTouch Verio Flex System w/Device KitIndications:Ty pe 2 diabetes mellitus with hemoglobin A1c goal of less than 7.5% ([facility]) Use as directed . Use to test blood sugar Dx e11.9 1 Kit 0 05/15/19 22 Active amLODIPine Besylate 5 MG Oral Tablet (Norvasc)Indicati ons:Peripheral edema Take 0.5 Tablets by mouth in the morning. 90 Tablet 3 09/22/19 22 Active OneTouch Ultra In Vitro Strip (Glucose Blood)Indications :Type 2 diabetes mellitus with hemoglobin A1c goal of less than 7.0% ([facility]) USE TO TEST ONCE PER DAY 100 Strip 3 10/10/19 22 Active Warfarin Sodium 2 MG Oral Tablet (Coumadin)Indicat ions:Atrial flutter, unspecified type ([facility]),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 management encounter,detention current use of anticoagulant therapy,PAF (paroxysmal atrial fibrillation) ([facility]) Take 4 mg (2 tablets) on Wednesdays; Take 2 mg (1 tablet) all other days OR as directed by anticoagulation clinic 100 Tablet 3 11/19/19 22 Active Atorvastatin Calcium 80 MG Oral Tablet (Lipitor) Take by mouth 1 Tablet in the morning. 90 Tablet 3 12/07/19 22 Active Metoprolol Succinate ER 100 MG [...] WITH BREAKFAST AND SUPPER 180 Tablet 1 03/03/20 22 023 Discontinued documented as of this encounter (statuses as of 09/08/2022) Active Problems Problem Noted Date Typical atrial [...] as of this encounter (statuses as of 09/08/2022) Resolved Problems Problem Noted Date Resolved Date [...] as of this encounter (statuses as of 09/08/2022) Immunizations Name Administration Dates Next Due COVID-19 [...] this encounter Progress Notes * Freda Curtis, [facility] - 09/08/2022 11:44 AM EDT Images from the original note were not included. Medication Therapy Disease Management - 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 Patient: Cristine Benitez : 1935 Patient presents with sonCipriano Current Warfarin Dose As of 09/08/2022 Warfarin maintenance plan: 4 mg (2 mg x 2) every Wed; 2 mg (2 mg x 1) all other days Patient-Reported Symptoms: Patient Findings Negatives: Signs/symptoms of thrombosis, Signs/symptoms of bleeding, Change in health, Change in alcohol use, Change in activity, Upcoming invasive procedure, Missed doses, Extra doses, Change in medications, Change in diet/appetite, Bruising INR Result As of 09/08/2022 INR goal: 2.0-3.0 INR used for dosin.7 (09/08/2022) Warfarin Plan As of 09/08/2022 Full warfarin instructions: 4 mg every Wed; 2 mg all other days No change documented: Freda Curtis RPh Next INR check: 09/27/2022 Additional Dosing Information: Description Write tablets only on card Reports previous procedure went well and without issue. Denies any reasoning/missed doses to account for subtherapeutic INR. Possible increase in greens? Will plan to bolus today and recheck x2.5weeks to match ortho appointment/reduce transportation burden. Also inquiring on lancets. TE sent to PCP. Repeat PT/INR in 2 week(s) Weekly dose: not changed Freda Curtis RPh Clinical Pharmacist 09/08/2022, 11:44 AM documented in this encounter Plan of Treatment Upcoming Encounters Date Type Specialty Care Team Description 09/27/2022 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 Pharmacy [address] [place] [address] 09/27/2022 Office Visit Orthopedics Eddie Sharp MD [address] [place] [address] 10/04/2022 Office Visit Family Medicine Priyanka Falcon MD [address] [place] [address] [place] [address] 01/19/2023 Office Visit Cardiology Cameron Becerra PA-C [address] [place] [address] Health Maintenance Due Date Last Done Comments Zoster Vaccines (2 of 3) 08/02/2010 06/07/2010 Depression Screening, Annual for Pts 12 and Over 08/03/2021 08/03/2020 CKD PHOS USE SMARTSET 66585 01/06/202212/12, 05/28/2020, 04/03/2019, Additional history exists HbA1c 06/02/2022 12/03/2021, 04/13, 01/06/2021, Additional history exists CKD HGB USE SMARTSET 69519 12/03/202212/03, 12/03/2021, 04/28/2021, Additional history exists DIABETES-FOOT [...] history exists Influenza Vaccine (FLU shot) Completed , 01/11/2021, 12/12/2019, Additional history exists GARDASIL-HPV IMMUNIZATION SERIES Aged [...] Comments INR FINGERSTICK, POINT OF CARE STAT 09/08/2022 11:49 AM EDT PAF (paroxysmal atrial fibrillation) (HCC) 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 documented in this encounter Results * INR FINGERSTICK, POINT OF CARE (09/08/2022 11:49 AM EDT) Fingerstick INR 1.7 INR 11:53 AM EDT [facility] 55 Blood 09/08/2022 11:4 9 AM EDT 09/08/2022 11:53 AM EDT Narrative [facility] - 09/08/2022 11:53 AM EDT Therapeutic ranges for non-operative patients: Prophylaxsis/treatment of DVT: (Range:2.0-3.0) Treatment of pulmonary embolism:(Range:2.0-3.0) Prevention of systemic embolism from: -tissue heart valves -acute myocardial infarction -valvular heart disease -atrial fibrillation (Range: 2.0-3.0) Mechanical prosthetic valves: (Range: 2.5-3.5) Freda Curtis [facility] POINT OF CARE TEST DOCKED DEVICE UNSOLICITED RESULTS [facility] [address] [place] [address] [place] [address] documented in this encounter Visit Diagnoses Diagnosis PAF (paroxysmal atrial fibrillation) (HCC)- Primary Atrial fibrillation 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 management encounter Encounter for therapeutic drug monitoring detention current use of anticoagulant therapy documented in this encounter Care Teams Rag Grader Relationship Specialty Start Date End Date Priyanka Falcon MD [address] [place] [address] [place] [address] PCP - General Family Medicine 01/04/19 documented as of this encounter
--- OUTSIDE RECORDS SUMMARY | 2023-02-21 00:42 | External Medical Summary ---
Author Name Unknown Address Unknown Organization : Laboratory Report Ordering Provider Test Date Status ZURDO LUNA 09/08/2022 11:49:22 Final Therapeutic ranges for non-o perative patients:
Prophylaxsis/treatment of DVT: (Range:2.0-3.0)
Treatment of pulmonary embolism:(Range:2.0-3.0)
Prevention of systemic embolism from:
-tissue heart valves
-acute myocardial infarction
-valvular heart disease
-atrial fibrillation
(Range: 2.0-3.0)
Mechanical prosthetic valves: (Range: 2.5-3.5) Observation Date Value Abnormality Reference (Units ) Status INR in Capillary blood by Coagulation assay 09/08/2022 11:49:22 1.7 (INR) Final Performing Location
--- OUTSIDE RECORDS SUMMARY | 2023-02-21 00:42 | External Medical Summary | Summary of Care ---
Author Name Unknown Organization [facility] Address [address] [place] [address] Phone [phone] Care Team Providers Care Screen And Cyclone Repairer Name Role Phone Priyanka Falcon MD Primary Care Prov ider Reason for Visit * Reason Comments Follow Up F/u left knee pain Encounter Details Date Type Department Care Team Description 09/01/2022 Office Visit Orthopaedics [address] [phone] Eddie Sharp MD [address] [place] [address] Primary osteoarthritis of left knee*; Enthesopathy of right hip region; Spondylolysis of lumbar region; Spinal stenosis of lumbar region, unspecified whether neurogenic claudication present Allergies Active Allergy Reactions Severity Noted Date Comments Naproxen Sodium Bleeding High 12/03/2009 Hs of GI bleed Aspirin Bleeding High 12/03/2009 Doxycycline Neuro complications (Please comment) Medium 10/23/2010 Hallucinations Ibuprofen Bleeding High 12/03/2009 Hx of GI bleed Nitrofurantoin Monohydrate Macrocrystals Neuro complications (Please comment) Low 09/16/2009 Headaches Yffgjeji-Ivbbawdvx-Dq 01/25/2011 Caused eye problems Neosporin 05/30/2003 rash Sulfa Antibiotics 05/11/2002 nausea & vomiting Tramadol Hcl Unknown 12/03/2009 documented as of this encounter (statuses as of 09/01/2022) Medications Medication Sig Dispensed Refills Start Date [...] hemoglobin A1c goal of less than 7.5% ([facility]) Use to test blood sugar once a day DX e11.9 100 Strip 3 05/14/2021 Active OneTouch Delica Plus [id number] ns:Type 2 diabetes mellitus with hemoglobin A1c goal of less than 7.5% ([facility]) Use as directed . Use to test blood sugar once a day DX e11.9 100 Each 3 05/14/2021 Active OneTouch Verio Flex System w/Device KitIndications:Typ e 2 diabetes mellitus with hemoglobin A1c goal of less than 7.5% ([facility]) Use as directed . Use to test blood sugar Dx e11.9 1 Kit 0 05/14/2021 Active amLODIPine Besylate 5 MG Oral Tablet (Norvasc)Indicatio ns:Peripheral edema Take 0.5 Tablets by mouth in the morning. 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,PAF (paroxysmal atrial fibrillation) ([facility]) Take 4 mg (2 tablets) on Wednesdays; [...] AT BEDTIME 135 Tablet 3 02/13/2022 Active metFORMIN HCl 500 MG Oral Tablet (Glucophage)Indica tions:Type 2 diabetes mellitus with hemoglobin A1c goal of less than 7.5% ([facility]) TAKE 1 TABLET BY MOUTH TWICE A DAY WITH BREAKFAST AND SUPPER 180 Tablet 1 03/03/2022 Active Zoster Vac Recomb Adjuvanted 50 MCG/0.5ML Intramuscular Suspension Reconstituted (Shingrix)Indicati ons:Need for shingles vaccine Inject 0.5 mL into a large muscle now and repeat dose in 60 to 180 days 1 Each 1 03/29/2022 Active glipiZIDE ER 2.5 MG Oral Tablet Extended Release 24 Hour (Glucotrol XL)Indications:Typ e 2 diabetes mellitus with hemoglobin A1c goal of less than 7.5% ([facility]) TAKE 1 TABLET BY MOUTH DAILY 30 [...] FOR ANXIETY 120 Tablet 1 08/25/2022 Active Hospital, Clinic, or Other Facility Administered Medication Ordered Dose Route Frequency Start Date End Date Status Sodium Hyaluronate (Durolane) inj 60 mgIndications:Primary osteoarthritis of left knee 60 mg IX ONCE 09/01/2022 09/02/19 23 Ended Triamcinolone Acetonide (Kenalog) 40 MG/ML inj 40 mgIndications:Enthesopathy of right hip region 40 mg IX ONCE 09/01/2022 09/01/2022 Ended lidocaine 1 % inj 10 mgIndications:Enthesopathy of right hip region 10 mg IX ONCE 09/01/2022 09/01/2022 Ended documented as of this encounter (statuses as of 09/01/2022) Active Problems Problem Noted Date Typical atrial [...] as of this encounter (statuses as of 09/01/2022) Resolved Problems Problem Noted Date Resolved Date [...] as of this encounter (statuses as of 09/01/2022) Immunizations Name Administration Dates Next Due COVID-19 [...] Progress Notes * Eddie Sharp MD - 09/01/2022 1:49 PM EDT Cristine Benitez [id number] Cristine Benitez is a 85 year old female who presents for follow-up to [facility] for L knee pain and Right hip/leg pain please note I also see her for bilateral knee injury/pain and R hip pain. Cristine Benitez is here with her son Saw her originally for BL knee pain on 08/12/2021 Most recent complete visit 07/21/2022 Quality: reviewed and agree with Nursing Notes [...] Her trigger thumb symptoms have been improving. Since that visit: Patient's visit today was scheduled for viscosupplementation [...] with pain management. See further discussion below ROS: ROS per HPI otherwise non-contributory Past [...] disease, chronic, stage III (GFR 30-59 ml/min) ([facility]) Low HDL (under 40) 12/25/2014 Mixed dyslipidemia [...] and minimal retrolisthesis of L1 on L2. Moderatemultilevel degenerative changes with posterior facet disease, degenerative [...] stenosis. Durolane injected into L knee only today 09/01/2022 Follow-up in 3-4 weeks 2) chronic right hip pain Right hip greater trochanteric steroid injection on Dr. Yeboah 06/02/21 did give her benefit. Discuss that is typically slightly early to repeat injection, however, she has a very important birthing green party next weekend strongly desired to try another injection. Right greater trochanteric steroid injection performed with ultrasound guidance 08/12/2021 helped her significantly. However that was over a year ago and she is had recurrence of pain in the right lateral hip region. 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 Greater trochanteric bursa steroid injection performed today 09/01/2022 Follow-up in 3-4 weeks Depending on symptoms may need to return to pain management. Please see discussion under 3. Below 3) concern for lumbar spinal stenosis from [...] She was to complete course of therapy Follow-up was p.r.n. Note: Patient is a diabetic. Most recent hemoglobin A1c 7.6 from 12/03/2021 Pt Name: Cristine Benitez Diagnosis: OA left knee. The patient is here for Sodium Hyaluronate (Durolane) 60mg/3ml 3ml injected intra-articular. There is no sign of infection in the injected knee. A timeout was called immediately prior to the procedure, to confirm the correct patient, procedure,and site. The site was marked by the physician prior to the procedure. Site was identified: knee: Left Procedure: Under sterile fashion, a 2 ml vial of Durolane 60mg/ 3ml was injected intra-articularly into the knee. Patient tolerated this well. Assessment: OA LEFT knee. Plan: The patient will follow up in 1 Week for reinjection. Procedure note (trochanteric bursa), right : Time out: Prior to injection, a time out was called to confirm the administration of appropriate medicine, patient name, procedure and confirm to the best of our ability and knowledge the presence of any necessary risks and benefits. Patient verbalizes understanding. Ultrasound utilized to guide injection Ultrasound required due to need to visualize specific bursa and inject in this specific location. Sterile techinique applied. Skin sterilized with alcohol swab. Lateral aproach to inject trochanteric bursa using 3.5 inch, 22 gauge needle. Injected with 1 ml lidocaine 1%, triamcinolone acetonide 40mg/ml 1 ml. Patient tolerated procedure with no significant bleeding or adverse reaction. Patient instructed to call or return to clinic for fever or warmth and redness at injection site for potential infection. Patient also advised as to potential for steroid flare reaction including increased pain and redness at injection site which should be treated with ice and resolve within 24 hours. Eddie Sharp MD Primary Care Sports Medicine [facility] [address] [phone] documented in this encounter Nursing Notes * Isa Meza LPN - 09/01/2022 1:55 PM EDT F/u left knee pain with activity, Duolane today last steroid injection 06/30/2022 Left knee steriod injection 09/23/2021 right 10/28/2021 B/l knee pain injection Durolane 08/12/21 Last A1C 12/03/21 7.6 last x-ray 07/28/2022 documented in this encounter Plan of Treatment Upcoming Encounters Date Type Specialty Care Team Description 09/08/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 [place] [address] 09/27/2022 Office Visit Orthopedics Lila, Eddie Bhandari MD [address] [place] [address] 10/04/2022 Office Visit Family Medicine Priyanka Falcon MD [address] [place] [address] [place] [address] Scheduled Orders Name Type Priority Associated Diagnoses Orde r Schedule POINT OF CARE US MAJOR JOINT INJECTION, ORTHO Medical Imaging Routine Enthesopathy of right hip region Ordered: 09/01/2022 Health Maintenance Due Date Last Done Comments Zoster Vaccines (2 of 3) 08/02/2010 06/07/2010 Depression Screening, Annual for Pts 12 and Over 08/03/2021 08/03/2020 CKD PHOS USE SMARTSET 31505 01/06/202212/12, 05/28/2020, 04/03/2019, Additional history exists HbA1c 06/02/2022 12/03/2021, 04/13, 01/06/2021, Additional history exists CKD HGB USE SMARTSET 70086 12/03/202212/03, 12/03/2021, 04/28/2021, Additional history exists DIABETES-FOOT [...] as of this encounter Visit Diagnoses Diagnosis Primary osteoarthritis of left knee- Primary Primary localized osteoarthrosis, lower leg Enthesopathy of right hip region Spondylolysis of lumbar region Acquired spondylolisthesis Spinal stenosis of lumbar region, unspecified whether neurogenic claudication present documented in this encounter Administered Medications Inactive Administered Medications - up to 3 most recent administrations Medication Order MAR Action Action Date Dose Rate Site lidocaine 1 % inj 10 mg 10 mg, Intra-Articular, ONCE, On Ya 09/01/22 at 1500, For 1 dose Given 09/01/2022 2:47 PM EDT 10 mg Hip R ight Sodium Hyaluronate (Durolane) inj 60 mg 60 mg, Intra-Articular, ONCE, On Ya 09/01/22 at 1430, For 1 dose Given 09/01/2022 2:52 PM EDT 60 mg Knee Left Triamcinolone Acetonide (Kenalog) 40 MG/ML inj 40 mg 40 mg, Intra-Articular, ONCE, On Ya 09/01/22 at 1500, For 1 dose Given 09/01/2022 2:48 PM EDT 40 mg Hip R ight documented in this encounter Care Teams Screen And Cyclone Repairer Relationship Specialty Start Date End Date Priyanka Falcon MD [address] [place] [address] [place] [address] PCP - General Family Medicine 01/04/19 documented as of this encounter
--- OUTSIDE RECORDS SUMMARY | 2023-02-21 00:42 | External Medical Summary | Summary of Care ---
Author Name Unknown Organization [facility] Address [address] [place] [address] Phone [phone] Care Team Providers Care Manager Of Application Development Name Role Phone Priyanka Falcon MD Primary Care Prov ider Reason for Visit * Reason Comments Follow Up F/u left knee pain Encounter Details Date Type Department Care Team Description 09/01/2022 Office Visit Orthopaedics [address] [phone] Eddie Sharp MD [address] [place] [address] Primary osteoarthritis of left knee*; Enthesopathy of [...] Neuro complications (Please comment) Low 09/16/2009 Headaches Vglpcwld-Webcgwqqr-Eb 01/25/2011 Caused eye problems Neosporin 05/30/2003 rash [...] goal of less than 7.5% ([facility]) Use to test blood sugar once a day DX e11.9 100 Strip 3 05/14/2021 Active OneTouch Delica Plus [id number] ns:Type 2 diabetes mellitus with hemoglobin A1c goal of less than 7.5% ([facility]) Use as directed . Use to test blood sugar once a day DX e11.9 100 Each 3 05/14/2021 Active OneTouch Verio Flex System w/Device KitIndications:Typ e 2 diabetes mellitus with hemoglobin A1c goal of less than 7.5% ([facility]) Use as directed . Use to test blood sugar Dx e11.9 1 Kit 0 05/14/2021 Active amLODIPine Besylate 5 MG Oral Tablet (Norvasc)Indicatio ns:Peripheral edema Take 0.5 Tablets by mouth in the morning. 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,PAF (paroxysmal atrial fibrillation) ([facility]) Take 4 mg (2 tablets) [...] goal of less than 7.5% ([facility]) TAKE 1 TABLET BY MOUTH TWICE [...] goal of less than 7.5% ([facility]) TAKE 1 TABLET BY MOUTH DAILY [...] left knee 60 mg IX ONCE 09/01/2022 09/03/19 Active Triamcinolone Acetonide (Kenalog) 40 MG/ML inj 40 mgIndications:Enthesopathy of right hip region 40 mg IX ONCE 09/01/2022 09/02/2022 Activ e lidocaine 1 % inj 10 mgIndications:Enthesopathy of right hip region 10 mg IX ONCE 09/01/2022 09/02/2022 Activ e documented as of this encounter (statuses as [...] 02/24/2009 3 HTN, goal below 140/90 01/16/2009 12/15/200 9 Overview: Modified per HTN Taxonomy. Type [...] - 09/01/2022 1:49 PM EDT Cristine Benitez [id number] Cristine Benitez is a 85 year old female who presents for follow-up to [facility] for L knee [...] disease, chronic, stage III (GFR 30-59 ml/min) ([facility]) Low HDL (under 40) 12/25/2014 Mixed dyslipidemia [...] however, she has a very important birthing alliance party next weekend strongly desired to try [...] Sharp MD Primary Care Sports Medicine Orthopaedics [address] [phone] documented in this encounter Nursing Notes * [...] Type Specialty Care Team Description 09/08/2022 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 [facility], [address] [place] [address] 09/27/2022 Office Visit Orthopedics Lila, Eddie Bhandari MD [address] [place] [address] 10/04/2022 Office Visit Family Medicine Priyanka Falcon MD [address] [place] [address] [place] [address] Scheduled Orders Name Type Priority Associated Diagnoses Orde r Schedule POINT OF CARE US MAJOR JOINT INJECTION, ORTHO Medical Imaging Routine Enthesopathy of right hip region Ordered: 09/01/2022 Health Maintenance Due Date Last Done Comments Zoster Vaccines (2 of 3) 08/02/2010 06/07/2010 Depression Screening, Annual for Pts 12 and Over 08/03/2021 08/03/2020 CKD PHOS USE SMARTSET 43157 01/06/202212/12, 05/28/2020, 04/03/2019, Additional history exists HbA1c 06/02/2022 12/03/2021, 04/13, 01/06/2021, Additional history exists CKD HGB USE SMARTSET 78625 12/03/202212/03, 12/03/2021, 04/28/2021, Additional history exists DIABETES-FOOT [...] present documented in this encounter Care Teams Manager Of Application Development Relationship Specialty Start Date End Date Priyanka Falcon MD [address] [place] [address] [place] [address] PCP - General Family Medicine 01/04/19 documented as of this encounter
--- OUTSIDE RECORDS SUMMARY | 2023-02-21 00:42 | External Medical Summary | Summary of Care ---
Author Name Unknown Organization [facility] Address [address] [place] [address] Phone [phone] Care Team Providers Care Senior Devops Engineer Name Role Phone Priyanka Falcon MD Primary Care Prov ider Reason for Visit * Reason Onset Date Comments FYI 09/07/2022 Encounter Details Date Type Department Care Team Description 09/07/2022 Telephone Pharmacy, [address] [place] [address] [place] [address] FYI Allergies Active Allergy Reactions Severity Noted Date Comments Naproxen Sodium Bleeding High 12/03/2009 Hs of GI bleed Aspirin Bleeding High 12/03/2009 Doxycycline Neuro complications (Please comment) Medium 10/23/2010 Hallucinations Ibuprofen Bleeding High 12/03/2009 Hx of GI bleed Nitrofurantoin Monohydrate Macrocrystals Neuro complications (Please comment) Low 09/16/2009 Headaches Dntopmht-Vfzbzhbzu-Wy 01/25/2011 Caused eye problems Neosporin 05/30/2003 rash Sulfa Antibiotics 05/11/2002 nausea & vomiting Tramadol Hcl Unknown 12/03/2009 documented as of this encounter (statuses as of 09/07/2022) Medications Medication Sig Dispensed Refills Start Date [...] Strip 3 05/14/2021 Active OneTouch Delica Plus [id number] ns:Type 2 diabetes mellitus with hemoglobin A1c goal of less than 7.5% (HCC) Use as directed . Use to test blood sugar once a day DX e11.9 100 Each 3 05/14/2021 Active VivoxidTouch Verio Flex System w/Device KitIndications:Typ e 2 diabetes mellitus with hemoglobin A1c goal of less than 7.5% (HCC) Use as directed . Use to test blood sugar Dx e11.9 1 Kit 0 05/14/2021 Active amLODIPine Besylate 5 MG Oral Tablet (Norvasc)Indicatio ns:Peripheral edema Take 0.5 Tablets by mouth in the morning. 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,PAF (paroxysmal atrial [...] FOR ANXIETY 120 Tablet 1 08/25/2022 Active documented as of this encounter (statuses as of 09/07/2022) Active Problems Problem Noted Date Typical atrial [...] as of this encounter (statuses as of 09/07/2022) Resolved Problems Problem Noted Date Resolved Date [...] as of this encounter (statuses as of 09/07/2022) Immunizations Name Administration Dates Next Due COVID-19 [...] encounter Miscellaneous Notes * Telephone Encounter - MAGALI Hernandez - 09/07/2022 1:54 PM EDT Caller's name: pts елена garcía Preferred call back number(OFFICE NUMBER FOR ): [phone] Reason for call: Calling to see when the pts next INR check was due. It is due on 09/08 and he has no further questions at this time. Thank you, Carmina Villaseñor CPhT [facility] ([facility]) (Former[facility]) 09/07/2022,1:54 PM documented in this encounter Plan of Treatment Upcoming Encounters Date Type Specialty Care Team Description 09/08/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 [place] [phone] 09/27/2022 Office Visit Orthopedics Eddie Sharp MD [address] [place] [address] 10/04/2022 Office Visit Family Medicine Priyanka Falcon MD [address] [place] [address] [place] [address] Health Maintenance Due Date Last Done Comments Zoster Vaccines (2 of 3) 08/02/2010 06/07/2010 Depression Screening, Annual for Pts 12 and Over 08/03/2021 08/03/2020 CKD PHOS USE SMARTSET 64687 01/06/202212/12, 05/28/2020, 04/03/2019, Additional history exists HbA1c 06/02/2022 12/03/2021, 04/13, 01/06/2021, Additional history exists CKD HGB USE SMARTSET 06993 12/03/202212/03, 12/03/2021, 04/28/2021, Additional history exists DIABETES-FOOT [...] filedocumented as of this encounter Care Teams Senior Devops Engineer Relationship Specialty Start Date End Date Priyanka Falcon MD [address] [place] [address] [place] [phone] PCP - General Family Medicine 01/04/19 documented as of this encounter
--- OUTSIDE RECORDS SUMMARY | 2023-02-21 00:42 | External Medical Summary ---
Author Name Unknown Address Unknown Organization : Laboratory Report Ordering Provider Test Date Status ZURDO LUNA 09/27/2022 09:11:29 Final Therapeutic ranges for non-o perative patients:
Prophylaxsis/treatment of DVT: (Range:2.0-3.0)
Treatment of pulmonary embolism:(Range:2.0-3.0)
Prevention of systemic embolism from:
-tissue heart valves
-acute myocardial infarction
-valvular heart disease
-atrial fibrillation
(Range: 2.0-3.0)
Mechanical prosthetic valves: (Range: 2.5-3.5) Observation Date Value Abnormality Reference (Units ) Status INR in Capillary blood by Coagulation assay 09/27/2022 09:11:29 3.0 (INR) Final Performing Location
--- OUTSIDE RECORDS SUMMARY | 2023-02-21 00:42 | External Medical Summary | Summary of Care ---
Author Name Unknown Organization [facility] Address [address] [place] [address] Phone [phone] Care Team Providers Care Ammonia Refrigeration Worker Name Role Phone Sailaja Garland MD Primary Care Prov ider Reason for Visit * Reason Comments eRx-Medication Refill Encounter Details Date Type Department Care Team Description 08/23/2022 Refill Family Medicine [address] [phone] Sailaja Garland MD [address] [place], [place] [address] [address] Persistent insomnia Allergies Active Allergy Reactions Severity Noted Date Comments Naproxen Sodium Bleeding High 12/03/2009 Hs of GI bleed Aspirin Bleeding High 12/03/2009 Doxycycline Neuro complications (Please comment) Medium 10/23/2010 Hallucinations Ibuprofen Bleeding High 12/03/2009 Hx of GI bleed Nitrofurantoin Monohydrate Macrocrystals Neuro complications (Please comment) Low 09/16/2009 Headaches Mijnvjbz-Vgttmilso-Qo 01/25/2011 Caused eye problems Neosporin 05/30/2003 rash Sulfa Antibiotics 05/11/2002 nausea & vomiting Tramadol Hcl Unknown 12/03/2009 documented as of this encounter (statuses as of 08/25/2022) Medications Medication Sig Dispensed Refills Start Date [...] goal of less than 7.5% ([facility]) Use to test blood sugar once a day DX e11.9 100 Strip 3 05/15/19 22 Active OneTouch Delica Plus [id number] ons:Type 2 diabetes mellitus with hemoglobin A1c goal of less than 7.5% ([facility]) Use as directed . Use to test blood sugar once a day DX e11.9 100 Each 3 05/15/19 22 Active OneTouch Verio Flex System w/Device KitIndications:Ty pe 2 diabetes mellitus with hemoglobin A1c goal of less than 7.5% ([facility]) Use as directed . Use to test blood sugar Dx e11.9 1 Kit 0 05/15/19 22 Active amLODIPine Besylate 5 MG Oral Tablet (Norvasc)Indicati ons:Peripheral edema Take 0.5 Tablets by mouth in the morning. 90 Tablet 3 09/22/19 22 Active OneTouch Ultra In Vitro Strip (Glucose Blood)Indications :Type 2 diabetes mellitus with hemoglobin A1c goal of less than 7.0% ([facility]) USE TO TEST ONCE PER DAY 100 Strip 3 10/10/19 22 Active Warfarin Sodium 2 MG Oral Tablet (Coumadin)Indicat ions:Atrial flutter, unspecified type ([facility]),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 management encounter,nursing home current use of anticoagulant therapy,PAF (paroxysmal atrial fibrillation) ([facility]) Take 4 mg (2 tablets) [...] BEDTIME 135 Tablet 3 02/14/20 22 Active metFORMIN HCl 500 MG Oral Tablet (Glucophage)Indic ations:Type 2 diabetes mellitus with hemoglobin A1c goal of less than 7.5% (HCC) TAKE 1 TABLET BY MOUTH TWICE A DAY WITH BREAKFAST AND SUPPER 180 Tablet 1 03/03/20 22 Active Zoster Vac Recomb Adjuvanted 50 [...] DAY 90 Tablet 3 08/20/19 23 Active LORazepam 0.5 MG Oral Tablet (Ativan)Indicatio ns:Persistent insomnia TAKE 1 TABLET BY MOUTH TWICE A DAY NEEDED FOR ANXIETY 120 Tablet 1 08/26/19 23 Active Docusate Sodium 100 MG Oral Capsule (Colace)Indicatio ns:Constipation, unspecified constipation type Take by mouth 1 Capsule in the morning. Can take 1 capsule in the evening as needed.. 60 Capsule 5 05/18/19 22 023 Discontinued LORazepam 0.5 MG Oral Tablet (Ativan)Vladimirtio ns:Persistent insomnia TAKE 1 TABLET BY MOUTH TWICE A DAY NEEDED FOR ANXIETY 120 Tablet 1 01/15/20 22 023 Discontinued documented as of this encounter (statuses as of 08/25/2022) Active Problems Problem Noted Date Typical atrial [...] as of this encounter (statuses as of 08/25/2022) Resolved Problems Problem Noted Date Resolved Date [...] as of this encounter (statuses as of 08/25/2022) Immunizations Name Administration Dates Next Due COVID-19 [...] encounter Miscellaneous Notes * Telephone Encounter - Sailaja Yeboah MD - 08/25/2022 12:41 PM EDT Signed Prescriptions: Disp Refills LORazepam 0.5 MG Oral Tablet (Ativan) 120 Ta*1 Sig: TAKE 1 TABLET BY MOUTH TWICE A DAY NEEDED FOR ANXIETY Authorizing Provider: SAILAJA GARLAND * Telephone Encounter - [facility] - 08/24/2022 1:18 PM EDTPending Prescriptions: Disp Refills LORazepam 0.5 MG Oral Tablet (Ativan) 120 Ta*1 Sig: TAKE 1 TABLET BY MOUTH TWICE A DAY NEEDED FOR ANXIETY * Telephone Encounter - [place] [facility] - 08/24/2022 1:17 PM EDT I have reviewed the patients controlled substance dispensing history in the Prescription Drug Monitoring Program in compliance with the [facility] regulations before prescribing a controlled substance. PDMP checked on 08/24/2022. Pending Prescriptions: Disp Refills LORazepam 0.5 MG Oral Tablet (Ativan) [Ph*120 Ta*1 Sig: TAKE 1 TABLET BY MOUTH TWICE A DAY NEEDED FOR ANXIETY Last Visit: 03/29/2022 (in office), Visit date not found (telemedicine) Next Visit: 10/04/2022 Date medication was last filled: 05-05-22 Date medication is due for refill: 07-02-22 Pharmacy: [id number] Is this request for a controlled substance? Yes and Urine Drug Screen Not completed Toxicology results: Results for orders placed or performed in [...] results can be found in Results Review. Please approve if appropriate. Thanks, Racheal Gunn.Ph. Clinical Pharmacist [facility] [phone] 08/24/2022,1:17 PM documented in this encounter Plan of Treatment Upcoming Encounters Date Type Specialty Care Team Description 09/01/2022 Office Visit Orthopedics Eddie Sharp MD [address] [place] [address] 09/08/2022 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 Pharmacy [address] [place] [address] 10/04/2022 Office Visit Family Medicine Sailaja Garland MD [address] [place] [address] [place] [address] Health Maintenance Due Date Last Done Comments Zoster Vaccines (2 of 3) 08/02/2010 06/07/2010 Depression Screening, Annual for Pts 12 and Over 08/03/2021 08/03/2020 CKD PHOS USE SMARTSET 89204 01/06/2022/09/2020, 05/28/2020, 04/03/2019, Additional history exists HbA1c 06/02/2022 12/03/2021, 04/13, 01/06/2021, Additional history exists CKD HGB USE SMARTSET 43579 12/03/202212/03, 12/03/2021, 04/28/2021, Additional history exists DIABETES-FOOT [...] as of this encounter Visit Diagnoses Diagnosis Persistent insomnia Persistent disorder of initiating or maintaining sleep documented in this encounter Care Teams Ammonia Refrigeration Worker Relationship Specialty Start Date End Date Sailaja Garland MD [address] [place] [address] [place] [address] PCP - General Family Medicine 01/04/19 documented as of this encounter
--- OUTSIDE RECORDS SUMMARY | 2023-02-21 00:42 | External Medical Summary | Summary of Care ---
Author Name Unknown Organization [facility] Address [address] [place] [address] Phone [phone] Care Team Providers Care Marketing Systems Manager Name Role Phone Sailaja Garland MD Primary Care Prov ider Encounter Details Date Type Department Care Team Description 09/08/2022 Refill Pharmacy, [address] [place] [address] [facility] [address] [place] [address] Type 2 diabetes mellitus with hemoglobin A1c goal of less than 7.5% ([facility]) Allergies Active Allergy Reactions Severity Noted Date Comments Naproxen Sodium Bleeding High 12/03/2009 Hs of GI bleed Aspirin Bleeding High 12/03/2009 Doxycycline Neuro complications (Please comment) Medium 10/23/2010 Hallucinations Ibuprofen Bleeding High 12/03/2009 Hx of GI bleed Nitrofurantoin Monohydrate Macrocrystals Neuro complications (Please comment) Low 09/16/2009 Headaches Qamooxvd-Iccbrdpgn-Cc 01/25/2011 Caused eye problems Neosporin 05/30/2003 rash Sulfa Antibiotics 05/11/2002 nausea & vomiting Tramadol Hcl Unknown 12/03/2009 documented as of this encounter (statuses as of 09/10/2022) Medications Medication Sig Dispensed Refills Start Date [...] FOR ITCHING 30 g 2 1 Active OneTouch Verio In Vitro Strip (Glucose Blood)Indications: Type 2 diabetes mellitus with hemoglobin A1c goal of less than 7.5% ([facility]) Use to test blood sugar once a day DX e11.9 100 Strip 3 2 Active OneTouch Verio Flex System w/Device KitIndications:Typ e 2 diabetes mellitus with hemoglobin A1c goal of less than 7.5% ([facility]) Use as directed . Use to test blood sugar Dx e11.9 1 Kit 0 2 Active amLODIPine Besylate 5 MG Oral Tablet (Norvasc)Indicatio ns:Peripheral edema Take 0.5 Tablets by mouth in the morning. 90 Tablet 3 2 Active OneTouch Ultra In Vitro Strip (Glucose Blood)Indications: Type 2 diabetes mellitus with hemoglobin A1c goal of less than 7.0% ([facility]) USE TO TEST ONCE PER DAY 100 Strip 3 2 Active Warfarin Sodium 2 MG Oral Tablet (Coumadin)Indicati ons:Atrial flutter, unspecified type ([facility]),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,residential current use of anticoagulant therapy,PAF (paroxysmal atrial fibrillation) ([facility]) Take 4 mg (2 tablets) on Wednesdays; Take 2 mg (1 tablet) all other days OR as directed by anticoagulation clinic 100 Tablet 3 2 Active Atorvastatin Calcium 80 MG Oral Tablet (Lipitor) Take by mouth 1 Tablet in the morning. 90 Tablet 3 2 Active Metoprolol Succinate ER [...] Tablet 1 3 Active OneTouch Delica Plus [id number] ns:Type 2 diabetes mellitus with hemoglobin A1c goal of less than 7.5% (HCC) Use as directed. Use to test blood sugar once a day DX e11.9 100 Each 3 3 Active OneTouch Delica Plus Btzjcz20AMldrdypgz ns:Type 2 diabetes mellitus with hemoglobin A1c goal of less than 7.5% (HCC) Use as directed . Use to test blood sugar once a day DX e11.9 100 Each 3 2 09/09/19 23 Discontinu ed(Refill) documented as of this encounter (statuses as of 09/10/2022) Active Problems Problem Noted Date Typical atrial [...] as of this encounter (statuses as of 09/10/2022) Resolved Problems Problem Noted Date Resolved Date [...] as of this encounter (statuses as of 09/10/2022) Immunizations Name Administration Dates Next Due COVID-19 [...] Telephone Encounter - Sailaja Yeboah MD - 09/10/2022 9:51 AM EDT Signed Prescriptions: Disp Refills OneTouch Delica Plus Frbjsc62I 100 Ea*3 Sig: Use as directed. Use to test blood sugar once a day DX e11.9 Authorizing Provider: SAILAJA GARLAND * Telephone Encounter - Freda Curtis RPh - 09/08/2022 11:57 AM EDT Hello! Patient reports she is out of lancets during today anticoag appointment. I pended an updated Rx foryou to sign. Thanks! Freda Curtis [facility], PharmD Clinical Pharmacist - Anthropology Professor Medication Therapy [facility] 09/08/2022, 11:58 AM [phone] documented in this encounter Plan of Treatment Upcoming Encounters Date Type Specialty Care Team Description 09/27/2022 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 Pharmacy [place], [address] [place] [address] 09/27/2022 Office Visit Orthopedics Eddie Sharp MD [address] [place] [address] 11/08/2022 Office Visit Family Medicine Lb Yeboah, Sailaja Mora MD [address] [place] [address] [place] [address] 01/19/2023 Office Visit Cardiology Cameron Becerra PA-C [address] [place] [address] Health Maintenance Due Date Last Done Comments Zoster Vaccines (2 of 3) 08/02/2010 06/07/2010 Depression Screening, Annual for Pts 12 and Over 08/03/2021 08/03/2020 CKD PHOS USE SMARTSET 04490 01/06/202212/12, 05/28/2020, 04/03/2019, Additional history exists HbA1c 06/02/2022 12/03/2021, 04/13, 01/06/2021, Additional history exists Influenza Vaccine (FLU shot) (#1) 2022 12/27/2021, 01/11/2021, 12/12/2019, Additional history exists CKD HGB USE SMARTSET 20360 12/03/202212/03, 12/03/2021, 04/28/2021, Additional history exists DIABETES-FOOT [...] A1c goal of less than 7.5% (HCC) documented in this encounter Care Teams Marketing Systems Manager Relationship Specialty Start Date End Date Sailaja Garland MD [address] [place] [address] [place] [address] PCP - General Family Medicine 01/04/19 documented as of this encounter
--- OUTSIDE RECORDS SUMMARY | 2023-02-21 00:42 | External Medical Summary | Summary of Care ---
Author Name Unknown Organization [facility] Address [address] [place] [address] Phone [phone] Care Team Providers Care Past Due Accounts Clerk Name Role Phone Sailaja Garland MD Primary Care Prov ider Reason for Visit * Reason Comments eRx-Medication Refill Encounter Details Date Type Department Care Team Description 09/08/2022 Refill Family Medicine [address] [phone] Sailaja Garland MD [address] [place], [place] [address] [address] Type 2 diabetes mellitus with hemoglobin A1c goal of less than 7.5% ([facility]) Allergies Active Allergy Reactions Severity Noted Date Comments Naproxen Sodium Bleeding High 12/03/2009 Hs of GI bleed Aspirin Bleeding High 12/03/2009 Doxycycline Neuro complications (Please comment) Medium 10/23/2010 Hallucinations Ibuprofen Bleeding High 12/03/2009 Hx of GI bleed Nitrofurantoin Monohydrate Macrocrystals Neuro complications (Please comment) Low 09/16/2009 Headaches Tluektlb-Ygjrunxir-Ax 01/25/2011 Caused eye problems Neosporin 05/30/2003 rash [...] 3 05/15/19 22 Active OneTouch Delica Plus Nyrjwr07VHigxqjbi ons:Type 2 diabetes mellitus with hemoglobin A1c [...] [facility]) USE TO TEST ONCE PER DAY 100 Strip 3 10/10/19 22 Active Warfarin Sodium 2 MG Oral Tablet (Coumadin)Indicat ions:Atrial flutter, unspecified type ([facility]),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 management encounter,long-term current use of anticoagulant therapy,PAF (paroxysmal atrial fibrillation) ([facility]) Take 4 mg (2 tablets) on [...] SUPPER 180 Tablet 1 09/09/19 23 Active metFORMIN HCl 500 MG Oral [...] Miscellaneous Notes * Telephone Encounter - Dawit Hicks, [facility] - 09/08/2022 11:59 AM EDTSigned Prescriptions: Disp Refills metFORMIN HCl 500 MG Oral Tablet (Glucopha*180 Ta*1 Sig: TAKE 1 TABLET BY MOUTH TWICE A DAY WITH BREAKFAST AND SUPPERAuthorizing Provider: SAILAJA GARLAND User: DAWIT HICKS documented in this encounter Plan of Treatment Upcoming Encounters Date Type Specialty Care Team Description 09/27/2022 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 [place], [address] [place] [address] 09/27/2022 Office Visit Orthopedics Eddie Sharp MD [address] [place] [address] 10/04/2022 Office Visit Family Medicine Sailaja Garland MD [address] [place] [address] [place] [address] 01/19/2023 Office Visit Cardiology Cameron Becerra PA-C [address] [place] [address] Health Maintenance Due Date Last Done Comments Zoster Vaccines (2 of 3) 08/02/2010 06/07/2010 Depression Screening, Annual for Pts 12 and Over 08/03/2021 08/03/2020 CKD PHOS USE SMARTSET 14553 01/06/202212/12, 05/28/2020, 04/03/2019, Additional history exists HbA1c 06/02/2022 12/03/2021, 04/13, 01/06/2021, Additional history exists CKD HGB USE SMARTSET 89345 12/03/202212/03, 12/03/2021, 04/28/2021, Additional history exists DIABETES-FOOT [...] (HCC) documented in this encounter Care Teams Past Due Accounts Clerk Relationship Specialty Start Date End Date Sailaja Garland MD [address] [place] [address] [place] [address] PCP - General Family Medicine 01/04/19 documented as of this encounter
--- OUTSIDE RECORDS SUMMARY | 2023-02-21 00:43 | External Medical Summary ---
Author Name Unknown Address Unknown Organization : Laboratory Report Ordering Provider Test Date Status NASH LUNAARAM 08/25/2022 12:06:24 Final Therapeutic ranges for non-o perative patients:
Prophylaxsis/treatment of DVT: (Range:2.0-3.0)
Treatment of pulmonary embolism:(Range:2.0-3.0)
Prevention of systemic embolism from:
-tissue heart valves
-acute myocardial infarction
-valvular heart disease
-atrial fibrillation
(Range: 2.0-3.0)
Mechanical prosthetic valves: (Range: 2.5-3.5) Observation Date Value Abnormality Reference (Units ) Status INR in Capillary blood by Coagulation assay 08/25/2022 12:06:24 1.6 (INR) Final Performing Location
--- OUTSIDE RECORDS SUMMARY | 2023-02-21 00:43 | External Medical Summary | Summary of Care ---
Author Name Unknown Organization [facility] Address [address] [place] [address] Phone [phone] Care Team Providers Care Cook Helper Juice Name Role Phone Priyanka Falcon MD Primary Care Prov ider Reason for Visit * Reason Comments Dosage Adjustment In Person (Anticoag Cl inic) Encounter Details Date Type Department Care Team Description 08/25/2022 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 Pharmacy, [address] [place] [address] [place] [address] PAF (paroxysmal atrial fibrillation) ([facility])*; 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 management encounter; custodial current use of anticoagulant therapy Allergies Active Allergy Reactions Severity Noted Date Comments Naproxen Sodium Bleeding High 12/03/2009 Hs of GI bleed Aspirin Bleeding High 12/03/2009 Doxycycline Neuro complications (Please comment) Medium 10/23/2010 Hallucinations Ibuprofen Bleeding High 12/03/2009 Hx of GI bleed Nitrofurantoin Monohydrate Macrocrystals Neuro complications (Please comment) Low 09/16/2009 Headaches [id number]-Os 01/25/2011 Caused eye problems Neosporin 05/30/2003 rash [...] Strip 3 05/14/2021 Active OneTouch Delica Plus [id number] ns:Type 2 diabetes mellitus with hemoglobin A1c [...] Dx e11.9 1 Kit 0 05/14/2021 Active Docusate Sodium 100 MG Oral Capsule (Colace)Indication s:Constipation, unspecified constipation type Take by mouth 1 Capsule in the morning. Can take 1 capsule in the evening as needed.. 60 Capsule 5 05/17/2021 Active amLODIPine Besylate 5 MG Oral Tablet [...] Oral Tablet (Coumadin)Indicati ons:Atrial flutter, unspecified type ([facility]),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,custodial current use of anticoagulant therapy,PAF (paroxysmal atrial fibrillation) ([facility]) Take 4 mg (2 tablets) on Wednesdays; Take 2 mg (1 tablet) all other days OR as directed by anticoagulation clinic 100 Tablet 3 11/18/2021 Active Atorvastatin Calcium 80 MG Oral Tablet (Lipitor) Take by mouth 1 Tablet in the morning. 90 Tablet 3 12/06/2021 Active LORazepam 0.5 MG Oral Tablet (Ativan)Indication s:Persistent insomnia TAKE 1 TABLET BY MOUTH TWICE A DAY NEEDED FOR ANXIETY 120 Tablet 1 01/14/2022 Active Metoprolol Succinate ER 100 MG Oral Tablet Extended Release 24 Hour (toPROL XL)Indications:Ess ential hypertension with goal blood pressure less than 140/90 TAKE 1 TABLET BY MOUTH IN THE MORNING AND 1/2 TABLET DAILY AT BEDTIME 135 Tablet 3 02/13/2022 Active metFORMIN HCl 500 MG Oral Tablet (Glucophage)Indica tions:Type 2 diabetes mellitus with hemoglobin A1c goal of less than 7.5% ([facility]) TAKE 1 TABLET BY MOUTH [...] hemoglobin A1c goal of less than 7.5% ([facility]) TAKE 1 TABLET BY MOUTH [...] EVERY DAY 90 Tablet 3 08/19/2022 Active documented as of this encounter (statuses [...] this encounter Progress Notes * Freda Curtis, [facility] - 08/25/2022 11:59 AM EDT Images from the original note were not included. Medication Therapy Disease Management - 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 Patient: Cristine Benitez : 1935 Patient presents with sonCipriano Current Warfarin Dose As of 08/25/2022 Warfarin maintenance plan: 4 mg (2 mg x 2) every Wed; 2 mg (2 mg x 1) all other days Patient-Reported Symptoms: Patient Findings Positives: Upcoming invasive procedure Negatives: Signs/symptoms of thrombosis, Signs/symptoms of bleeding, Change in health, Change in alcohol use, Change in activity, Missed doses, Extra doses, Change in medications, Change in diet/appetite, Bruising INR Result As of 08/25/2022 INR goal: 2.0-3.0 INR used for dosin.6 (08/25/2022) Warfarin Plan As of 08/25/2022 Full warfarin instructions: 08/25: Hold; 08/26: 4 mg; Otherwise 4 mg every Wed; 2 mg all other days No change documented: Freda Curtis RPh Next INR check: 09/08/2022 Additional Dosing Information: Description Write tablets only on card Patient is having a tooth extraction on 08/[address] Valenzuela. Office is requesting warfarin to be held x2 days prior to procedure, INR day of procedure < 2, and no warfarin evening of procedure. Repeat pt/inr 2 weeks after procedure. Repeat PT/INR in 2 week(s) Weekly dose: not changed Freda Curtis RPh Clinical Pharmacist 08/25/2022, 11:59 AM documented in this encounter Plan of Treatment Upcoming Encounters Date Type Specialty Care Team Description 09/01/2022 Office Visit Orthopedics Eddie Sharp MD [address] [place] [id number] 09/08/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 [place] [address] 10/04/2022 Office Visit Family Medicine Priyanka Falcon MD [address] [place] [address] [place] [address] Health Maintenance Due Date Last Done Comments Zoster Vaccines (2 of 3) 08/02/2010 06/07/2010 Depression Screening, Annual for Pts 12 and Over 08/03/2021 08/03/2020 CKD PHOS USE SMARTSET 98051 01/06/202212/12, 05/28/2020, 04/03/2019, Additional history exists HbA1c 06/02/2022 12/03/2021, 04/13, 01/06/2021, Additional history exists CKD HGB USE SMARTSET 23386 12/03/202212/032, 12/03/2021, 04/28/2021, Additional history exists DIABETES-FOOT EXAM [...] Comments INR FINGERSTICK, POINT OF CARE STAT 08/25/2022 12:06 PM EDT PAF (paroxysmal atrial fibrillation) (HCC) 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 management encounter custodial current use of anticoagulant therapy documented in this encounter Results * INR FINGERSTICK, POINT OF CARE (08/25/2022 12:06 PM EDT) Fingerstick INR 1.6 INR 12:12 PM EDT [facility]00 Blood 08/25/2022 12:0 6 PM EDT 08/25/2022 12:12 PM EDT Narrative [facility] - 08/25/2022 12:12 PM EDT Therapeutic ranges for non-operative patients: Prophylaxsis/treatment of DVT: (Range:2.0-3.0) Treatment of pulmonary embolism:(Range:2.0-3.0) Prevention of systemic embolism from: -tissue heart valves -acute myocardial infarction -valvular heart disease -atrial fibrillation (Range: 2.0-3.0) Mechanical prosthetic valves: (Range: 2.5-3.5) Freda Curtis [facility] LAB POINT OF CARE TEST DOCKED DEVICE UNSOLICITED RESULTS [facility] [address] [place] [address] [place] [id number] documented in this encounter Visit Diagnoses Diagnosis PAF (paroxysmal atrial fibrillation) (HCC)- Primary Atrial fibrillation 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 management encounter Encounter for therapeutic drug monitoring custodial current use of anticoagulant therapy documented in this encounter Care Teams Cook Helper Juice Relationship Specialty Start Date End Date Priyanka Falcon MD [address] [place] [address] [place] [address] PCP - General Family Medicine 01/04/19 documented as of this encounter
--- OUTSIDE RECORDS SUMMARY | 2023-02-21 00:43 | External Medical Summary | Summary of Care ---
Author Name Unknown Organization [facility] Address [address] [place] [address] Phone [phone] Care Team Providers Care Welder And Fitter Name Role Phone Sailaja Garland MD Primary Care Prov ider Reason for Visit * Reason Comments eRx-Medication Refill Encounter Details Date Type Department Care Team Description 08/23/2022 Refill Family Medicine [address] [phone] Jessica Baugh PA-C [address] [place] [address] [place] [address] Constipation, unspecified constipation type Allergies Active Allergy Reactions Severity Noted Date Comments Naproxen Sodium Bleeding High 12/03/2009 Hs of GI bleed Aspirin Bleeding High 12/03/2009 Doxycycline Neuro complications (Please comment) Medium 10/23/2010 Hallucinations Ibuprofen Bleeding High 12/03/2009 Hx of GI bleed Nitrofurantoin Monohydrate Macrocrystals Neuro complications (Please comment) Low 09/16/2009 Headaches Qggrmrnd-Ivesbcsqp-Lg 01/25/2011 Caused eye problems Neosporin 05/30/2003 rash [...] goal of less than 7.5% ([facility]) Use to test blood sugar once a day DX e11.9 100 Strip 3 05/15/19 22 Active OneTouch Delica Plus [id number] ons:Type 2 diabetes mellitus with hemoglobin A1c goal of less than 7.5% ([facility]) Use as directed . Use to test blood sugar once a day DX e11.9 100 Each 3 05/15/19 22 Active OneTouch Verio Flex System w/Device KitIndications:Ty pe 2 diabetes mellitus with hemoglobin A1c goal of less than 7.5% ([facility]) Use as directed . Use to test blood sugar Dx e11.9 1 Kit 0 05/15/19 22 Active amLODIPine Besylate 5 MG Oral Tablet (Norvasc)Indicati ons:Peripheral edema Take 0.5 Tablets by mouth in the morning. 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 Can take 1 capsule in the evening as needed.. 60 Capsule 5 05/18/19 22 023 Discontinued LORazepam 0.5 MG Oral Tablet (Ativan)Indicatio ns:Persistent [...] Encounter - Sailaja Yeboah MD - 08/25/2022 12:40 PM EDT Signed Prescriptions: Disp Refills Docusate Sodium 100 MG Oral Capsule (Colac*60 Cap*5 Sig: TAKE 1 CAP BY MOUTH EVERY MORNING. CAN TAKE 1 CAP IN THE EVENING NEEDED Authorizing Provider: SAILAJA GARLAND * Telephone Encounter - Alyson Tierney LPN - 08/24/2022 10:12 AM EDTPending Prescriptions: Disp Refills Docusate Sodium 100 MG Oral Capsule [Pharm*60 Cap*5 Sig: TAKE 1 CAP BY MOUTH EVERY MORNING. CAN TAKE 1 CAP IN THE EVENING NEEDED * Telephone Encounter - Alyson Tierney LPN - 08/24/2022 10:11 AM EDT Did you pend patient's preferred pharmacy and medication before forwarding?yes Pharmacy: [id number] [id number] [facility] Pending Prescriptions: Disp Refills Docusate Sodium 100 MG Oral Capsule (Cola*60 Cap*5 Sig: TAKE 1 CAP BY MOUTH EVERY MORNING. CAN TAKE 1 CAP IN THE EVENING NEEDED Last Visit: 03/29/2022 (in office), Visit date not found (telemedicine) Next Visit: 10/04/2022 If no future appointments scheduled, and last appointment is greater than a year ago, please schedule patient for a follow-up appointment Last date the medication was ordered: 05/17/21 Is this request for a controlled substance?No [...] Labs: Lab Results Component Value Date/Time CREAT 1.2 (H) 12/03/2021 09:52 AM CREAT 1.1 (H) 01/29/2020 12:24 PM POTASSIUM 4.7 12/03/2021 09:52 AM POTASSIUM 5.1 01/29/2020 12:24 PM TSH 4.34 (H) 04/28/2021 01:19 PM TSH 3.100 12/29/2018 12:00 AM TSH 3.67 05/28/2018 02:35 PM LDLCALC 91 12/03/2021 09:52 AM LDLCALC 88 08/22/2019 12:30 PM LDLDIRECT 91 12/03/2021 09:52 AM LDLDIRECT 102 08/22/2019 12:30 PM LDLDIRECT NOT APPLICABLE 08/22/2019 12:30 PM ALT 17 12/03/2021 09:52 AM ALT 25 04/03/2019 10:51 AM HGBA1C 7.6 (H) 12/03/2021 09:52 AM HGBA1C 7.7 (H) 08/22/2019 12:30 PM * Telephone Encounter - Aye Jack - 08/23/2022 10:46 PM EDTPending Prescriptions: Disp Refills Docusate Sodium 100 MG Oral Capsule [Pharm*60 Cap*5 Sig: TAKE 1CAP BY MOUTH EVERY MORNING. CAN TAKE 1 CAP IN THE EVENING NEEDED documented in this encounter Plan of Treatment Upcoming Encounters Date Type Specialty Care Team Description 09/01/2022 Office Visit Orthopedics Eddie Sharp MD [address] [place] [address] 09/08/2022 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 Pharmacy [place], [facility] [address] [place] [address] 10/04/2022 Office Visit Family Medicine Sailaja Garland MD [address] [place] [address] [place] [address] Health Maintenance Due Date Last Done Comments Zoster Vaccines (2 of 3) 08/02/2010 06/07/2010 Depression Screening, Annual for Pts 12 and Over 08/03/2021 08/03/2020 CKD PHOS USE SMARTSET 33410 01/06/202212/12, 05/28/2020, 04/03/2019, Additional history exists HbA1c 06/02/2022 12/03/2021, 04/13, 01/06/2021, Additional history exists CKD HGB USE SMARTSET 08693 12/03/202212/03, 12/03/2021, 04/28/2021, Additional history exists DIABETES-FOOT [...] as of this encounter Visit Diagnoses Diagnosis Constipation, unspecified constipation type documented in this encounter Care Teams Welder And Fitter Relationship Specialty Start Date End Date Sailaja Garland MD [address] [place] [address] [place] [address] PCP - General Family Medicine 01/04/19 documented as of this encounter
[2023-02-21] MEDS: PANTOprazole 40 MG in DEXTROSE 5% MINI-B 100 ML IV SCH ×5 (01:32→23:44)
[2023-02-21 04:15] LABS: Mean Corpuscular Hemoglobin 28.9 pg (25.0-34.0); Mean Corpuscular Volume 90.3 fL (80.0-100.0); Mean Platelet Volume 10.7 fL (9.4-12.4); Platelet Count 207 K/uL (130-400); RDW Coefficient of Variation 14.5 % (11.5-14.5); RDW Standard Deviation 47.5 fL (36.4-46.3); Red Blood Count 2.77 M/uL (4.20-5.40); White Blood Count 5.87 K/ul (4.8-10.8)
[2023-02-21 04:30] LABS: Albumin Globulin Ratio 0.9 (0.9-2); Albumin Level 2.7 gm/dl (3.4-5.0); BUN Creatinine Ratio 45.2 (10-20); Bilirubin,Total 0.5 mg/dl (0.2-1.0); Calcium 8.1 mg/dl (8.6-10.3); Creatinine Clr Calc Pharmacy 22.8 ml/min; Est GFR (African American) 36.9 ml/min; Est GFR (Non-African American) 31.8 ml/min; Globulin 2.9 gm/dl (2.5-4.0); Magnesium 1.7 mg/dl (1.7-2.4); Potassium 4.1 mmol/L (3.5-5.1); Total Protein 5.6 gm/dl (6.0-8.3)
[2023-02-21] MEDS ORDERED: MAGNESIUM SULFATE / D5W 1 GM/100 ML BAG IV ONE (05:13)
[2023-02-21 05:35] LABS: INR 1.2 (0.9-1.1); Prothrombin Time 13.3 Seconds (9.0-12.0)
[2023-02-21] MEDS ORDERED: CEFEPIME 2,000 MG in SYRINGE 0 ML IV ONE (05:45)
[2023-02-21] MEDS: INSULIN ASPART PER UNIT CHARGE SC SCH ×4 (06:00→20:41)
--- NOTE | 2023-02-21 07:22 | Communication Note ---
Date of Service: February 21, 2023 Started on iv cefepime for UTI. Thanks
[2023-02-21 07:50] LABS: Estimated Average Glucose 197 mg/dl; Hemoglobin A1C 8.5 % (4.5-5.6)
[2023-02-21] MEDS ORDERED: PANTOprazole 40 MG in SYRINGE 0 ML IV SCH (08:00)
[2023-02-21] MEDS ORDERED: amLODIPine BESYLATE 5 MG TAB PO SCH (09:00)
--- NOTE | 2023-02-21 09:08 | Electrocardiogram Report ---
Test Reason : Blood Pressure : / mmHG Vent. Rate : 096 BPM Atrial Rate : 000 BPM P-R Int : 000 ms QRS Dur : 076 ms QT Int : 330 ms P-R-T Axes : 000 048 130 degrees QTc Int : 416 ms Atrial fibrillation with premature ventricular or aberrantly conducted complexes Low voltage QRS Diffuse Minor Nonspecific T wave abnormality Abnormal ECG When compared with ECG of 31-DEC-2018 06:58, Atrial fibrillation has replaced Atrial flutter Confirmed by Jose Kumari ([id number]) on 02/21/2023 9:08:24 AM Referred By: REFERRED SELF Confirmed By:Jose Kumari
[2023-02-21] MEDS: LANTUS PER UNIT CHARGE SQ SCH ×2 (09:20→20:47)
[2023-02-21] MEDS: ATORVASTATIN 40 MG TAB PO SCH (09:22)
[2023-02-21] MEDS: METOPROLOL SUCC 50MG EXT REL TAB PO SCH ×2 (09:22→20:53)
--- NOTE | 2023-02-21 09:22 | Ultrasound Report ---
RENAL ULTRASOUND HISTORY: Acute on chronic kidney failure COMPARISON: Abdomen and pelvis CT 08/18/2010. FINDINGS: Right kidney: 9.1 cm. No hydronephrosis. Echogenic cortex with moderate cortical thinning. Left kidney: 10.2 cm. No hydronephrosis. Echogenic cortex with moderate cortical thinning. A few cyst s with the largest measuring 1.5 cm. Bladder: Bladder is decompressed and not well visualized. No definite bladder wall thickening. The ur eteral jets are not identified during the examination. IMPRESSION: 1. No hydronephrosis. 2. Echogenic kidneys with moderate cortical thinning. This suggests medical renal disease. ACT 112: Negative or not required by law. Electronically signed by: Rian Torres M.D. 02/21/2023 9:20 AM
--- NOTE | 2023-02-21 09:36 | Gastrointestinal Consultation ---
Date of Consultation February 21, 2023 Assessment & Plan (1) Supratherapeutic INR: 87 year old female with history of afib, HTN, dyslipidemia, DM and others below admitted through the ED with GI bleeding, and influenza A, supratherapeutic INR at 7.7 reversed with Vit K. Since arrival, no further episodes of GI bleeding Continue conservative measures for now No plan for endoscopic evaluation Trend H&H Monitor and document GI output Transfuse PRN primary service Monitor INR Thank you for allowing us to participate in the care of this patient. Please call with any acute changes, questions or concerns. Please see addendum below with additional recommendation from my supervising physician. (2) Acute GI bleeding: Supervising Physician Co-Signing Physician Notes I have personally seen and examined the patient with PARESH Martini. Her note reflects my exam and findings. I agree with her impression and plan. Keep tight control of INR. No indication for endoscopy at this point. Carmel Medina. History of Present Illness Reason for Consultation: GI bleed Requesting Physician: Jose G Attending Physician: Vargas Araiza MD History of Present Illness 87 year old female with history of afib, HTN, dyslipidemia, DM and others below admitted through the ED with GI bleeding, and influenza A - GI asked to evaluate. Pt was seen and evaluated, chart reviewed. Suggests for about 48 hours or so she has had mixed bloody/black BMs. Denies any hematemesis/coffee ground emesis. No fever, chills, CP, SOB. 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 Normal LFTs No abd imaging Colon 2017: diverticular disease, hemorrhoids Allergies Allergy/AdvReac Type Severity Reaction Status Date / Time tramadol Allergy Severe HALLUCINATIONS-PER Verified 02/20/23 16:07 GMG bacitracin Allergy Mild CAUSED EYE Verified 02/20/23 16:07 PROBLEMS neomycin Allergy Mild Rash Verified 02/20/23 16:07 polymyxin B Allergy Mild CAUSED EYE Verified 02/20/23 16:07 PROBLEMS Aminoglycosides Allergy Unknown Unknown Verified 02/20/23 16:07 aspirin AdvReac Severe HX OF GI Verified 02/20/23 16:07 BLEED ibuprofen AdvReac Severe HX OF GI Verified 02/20/23 16:07 BLEED naproxen [From Aleve] AdvReac Severe HX OF GI Verified 02/20/23 16:07 BLEED NSAIDS (Non-Steroidal AdvReac Severe HX OF GI Verified 02/20/23 16:07 Anti-Inflamma BLEED doxycycline AdvReac Intermediate HALLUCINATI Verified 02/20/23 16:07 ONS nitrofurantoin AdvReac Intermediate HEADACHES Verified 02/20/23 16:07 [From Macrobid] Sulfa (Sulfonamide AdvReac Intermediate NAUSEA, Verified 02/20/23 16:07 Antibiotics) VOMITING, BAD HEADACHE triamterene AdvReac Intermediate ULCERS Verified 02/20/23 16:07 Home Medications Medication Instructions Recorded Confirmed Type cholecalciferol (vitamin D3) 25 1,000 unit PO DAILY 12/29/18 02/20/23 History mcg (1,000 unit) capsule (Vitamin D3) cyanocobalamin (vitamin B-12) 1,000 mcg PO DAILY 12/29/18 02/20/23 History 1,000 mcg tablet (Vitamin B-12) glipizide 2.5 mg tablet, extended 2.5 mg PO DAILY 12/29/18 02/20/23 History release 24 hr (Glucotrol XL) lorazepam 0.5 mg tablet (Ativan) 0.5 mg PO BID PRN Anxiety 12/29/18 02/20/23 History metoprolol succinate 100 mg See Rx Instructions .Route .COMPLEX 12/29/18 02/20/23 History tablet,extended release 24 hr (Toprol XL) polyethylene glycol 3350 17 17 g PO DAILY PRN Constipation 12/29/18 02/20/23 History gram/dose oral powder (Miralax) triamcinolone acetonide 0.1 % 1 applic topical BID PRN Itching 12/29/18 02/20/23 History topical cream (Triderm) amlodipine 2.5 mg tablet 2.5 mg PO QAM 02/20/23 02/20/23 History atorvastatin 80 mg tablet 80 mg PO QAM 02/20/23 02/20/23 History docusate sodium 100 mg capsule 100 mg PO DAILY 02/20/23 02/20/23 History furosemide 40 mg tablet 40 mg PO [id number] 02/20/23 02/20/23 History hydrocodone 5 mg-acetaminophen 325 1 tab PO BID PRN Pain, Severe 02/20/23 02/20/23 History mg tablet lisinopril 20 mg tablet 20 mg PO DAILY 02/20/23 02/20/23 History metformin 500 mg tablet 500 mg PO BIDM 02/20/23 02/20/23 History warfarin 2 mg tablet See Rx Instructions .Route .COMPLEX 02/20/23 02/20/23 History Patient History Medical History Diabetes mellitus type 2 in obese History of breast cancer Hyperlipidemia Hypertension Atrial fibrillation Surgical History Bilateral cataracts Family History Other No significant family history Social History Smoking Status: Never smoker Hx Alcohol Use: Yes Alcohol type: wine Hx Substance Use: No Preferred Language: Turkish Communication Ability: Effective 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: No Beliefs That Will Affect Care: None Current Living Situation: Alone current occupational status: retired Other Information That Helps Us Care for You: No Feels Safe at Home: Yes Safety Concerns: Feels Safe At This Time Assistive Devices: None, Cane and Walker Review of Systems Review of Systems: All systems reviewed & are unremarkable except as noted in HPI & below Physical Exam Constitutional: WD/WN, vitals as above Respiratory: normal respiratory effort Gastrointestinal (Abdomen): normal bowel sounds, soft, nontender, no hepatosplenomegaly Skin: no rashes, warm and dry Results & Data Vital Signs (Past 12 Hours) Vital Signs Temp Pulse Pulse Resp BP Pulse Ox O2 Del Method 02/21/23 07:28 37.1 C 98 H 17 133/65 97 Room Air 02/21/23 07:00 100 H 02/21/23 05:07 98 H 22 138/62 93 Room Air 02/21/23 03:14 36.6 C 98 H 20 108/63 97 Room Air 02/20/23 23:38 103 H 02/20/23 22:37 36.6 C 105 H 22 133/65 98 Room Air Laboratory Results 12/03/0402/21/23 02/21/23 Range/Units 09:15 05:32 05:16 WBC Pending (4.8-10.8) K/ul RBC Pending (4.20-5.40) M/uL Hgb Pending (12.0-16.0) g/dl Hct Pending (37.0-47.0) % MCV Pending (80.0-100.0) fL MCH Pending (25.0-34.0) pg MCHC Pending (32.0-36.0) g/dL RDW Std Deviation (36.4-46.3) fL RDW Coeff of Jareth (11.5-14.5) % Plt Count Pending (130-400) K/uL MPV (9.4-12.4) fL Neutrophils % (Manual) % Lymphocytes % (Manual) % Monocytes % (Manual) % Eosinophils % (Manual) % Neutrophils # (Manual) (1.40-6.50) K/uL Total Absolute Neuts (1.4-6.5) K/uL Lymphocytes # (Manual) (1.2-3.4) K/uL Total Abs Lymphocytes (1.2-3.4) K/uL Monocytes # (Manual) (0.11-0.59) K/uL Eosinophils # (Manual) (0-0.50) K/uL Large Granular Lymphs % # Lrg Granular Lymphs K/uL PT 13.3 H (9.0-12.0) Seconds INR 1.2 H (0.9-1.1) Sodium (136-145) mmol/L Potassium (3.5-5.1) mmol/L Chloride (98-107) mmol/L Carbon Dioxide (21-32) mmol/L Anion Gap (3-11) BUN (6-23) mg/dl Creatinine (0.6-1.2) mg/dl Est Cr Clr Drug Dosing ml/min Est GFR ( Amer) ml/min Est GFR (Non-Af Amer) ml/min BUN/Creatinine Ratio (10-20) Glucose (70-99(Fasting)) mg/dl POC Glucose 145 H (70-99) mg/dl Estimat Average Glucose mg/dl Hemoglobin A1c (4.5-5.6) % Calcium (8.6-10.3) mg/dl Phosphorus (2.5-4.9) mg/dl Magnesium (1.7-2.4) mg/dl Total Bilirubin (0.2-1.0) mg/dl AST (13-39) U/L ALT (7-52) U/L Alkaline Phosphatase (34-104) U/L Total Protein (6.0-8.3) gm/dl Albumin (3.4-5.0) gm/dl Globulin (2.5-4.0) gm/dl Albumin/Globulin Ratio (0.9-2) Lipase (11-82) U/L Urine Color Urine Appearance (Clear) Urine pH (4.5-7.5) Ur Specific [place] (1.000-1.030) Urine Protein (Negative) Urine Glucose (UA) (Negative) Urine Ketones (Negative) Urine Blood (Negative) Urine Nitrite (Negative) Urine Bilirubin (Negative) Urine Urobilinogen (Negative) Ur Leukocyte Esterase (Negative) Urine WBC (Auto) (0-5) /hpf Urine RBC (Auto) (0-4) /hpf U Hyaline Cast (Auto) (0-5) /lpf U Epithel Cells (Auto) (0-5) /lpf Urine Bacteria (Auto) (Negative) Nasal Influ A H1 2009 PCR (NotDetected) POC Stool Occult Blood (Negative) Adenovirus (PCR) (NotDetected) B. pertussis DNA (PCR) (NotDetected) B.parapertussis DNA PCR (NotDetected) C. pneumoniae DNA (PCR) (NotDetected) Coronavirus OC43 (PCR) (NotDetected) Coronavirus HKU1 (PCR) (NotDetected) Coronavirus 229E (PCR) (NotDetected) SARS-CoV-2 (PCR) (NotDetected) Coronavirus NL63 (PCR) (NotDetected) Human Metapneumovir PCR (NotDetected) Influenza Type B (PCR) (NotDetected) M. pneumoniae (PCR) (NotDetected) Parainfluenza 1 (PCR) (NotDetected) Parainfluenza 2 (PCR) (NotDetected) Parainfluenza 3 (PCR) (NotDetected) Parainfluenza 4 (PCR) (NotDetected) RSV (PCR) (NotDetected) Entero/Rhino (PCR) (NotDetected) Blood Type Antibody Screen 02/21/23 02/20/23 02/20/23 Range/Units 03:24 20:57 20:53 WBC 5.87 6.66 (4.8-10.8) K/ul RBC 2.77 L 2.95 L (4.20-5.40) M/uL Hgb 8.0 L 8.6 L (12.0-16.0) g/dl Hct 25.0 L 26.7 L (37.0-47.0) % MCV 90.3 90.5 (80.0-100.0) fL MCH 28.9 29.2 (25.0-34.0) pg MCHC 32.0 32.2 (32.0-36.0) g/dL RDW Std Deviation 47.5 H 47.4 H (36.4-46.3) fL RDW Coeff of Jareth 14.5 14.3 (11.5-14.5) % Plt Count 207 219 (130-400) K/uL MPV 10.7 10.2 (9.4-12.4) fL Neutrophils % (Manual) % Lymphocytes % (Manual) % Monocytes % (Manual) % Eosinophils % (Manual) % Neutrophils # (Manual) (1.40-6.50) K/uL Total Absolute Neuts (1.4-6.5) K/uL Lymphocytes # (Manual) (1.2-3.4) K/uL Total Abs Lymphocytes (1.2-3.4) K/uL Monocytes # (Manual) (0.11-0.59) K/uL Eosinophils # (Manual) (0-0.50) K/uL Large Granular Lymphs % # Lrg Granular Lymphs K/uL PT 21.3 H (9.0-12.0) Seconds INR 2.0 H (0.9-1.1) Sodium 138 137 (136-145) mmol/L Potassium 4.1 4.1 (3.5-5.1) mmol/L Chloride 111 H 110 H (98-107) mmol/L Carbon Dioxide 18 L 16 L (21-32) mmol/L Anion Gap 9 11 (3-11) BUN 66 H 76 H (6-23) mg/dl Creatinine 1.46 H 1.65 H D (0.6-1.2) mg/dl Est Cr Clr Drug Dosing 22.8 20.4 ml/min Est GFR ( Amer) 36.9 31.8 ml/min Est GFR (Non-Af Amer) 31.8 27.4 ml/min BUN/Creatinine Ratio 45.2 H 46.1 H (10-20) Glucose 132 H 134 H (70-99(Fasting)) mg/dl POC Glucose 142 H (70-99) mg/dl Estimat Average Glucose 197 mg/dl Hemoglobin A1c 8.5 H (4.5-5.6) % Calcium 8.1 L 8.0 L (8.6-10.3) mg/dl Phosphorus (2.5-4.9) mg/dl Magnesium 1.7 (1.7-2.4) mg/dl Total Bilirubin 0.5 (0.2-1.0) mg/dl AST 21 (13-39) U/L ALT 13 (7-52) U/L Alkaline Phosphatase 48 (34-104) U/L Total Protein 5.6 L (6.0-8.3) gm/dl Albumin 2.7 L (3.4-5.0) gm/dl Globulin 2.9 (2.5-4.0) gm/dl Albumin/Globulin Ratio 0.9 (0.9-2) Lipase (11-82) U/L Urine Color Urine Appearance (Clear) Urine pH (4.5-7.5) Ur Specific [place] (1.000-1.030) Urine Protein (Negative) Urine Glucose (UA) (Negative) Urine Ketones (Negative) Urine Blood (Negative) Urine Nitrite (Negative) Urine Bilirubin (Negative) Urine Urobilinogen (Negative) Ur Leukocyte Esterase (Negative) Urine WBC (Auto) (0-5) /hpf Urine RBC (Auto) (0-4) /hpf U Hyaline Cast (Auto) (0-5) /lpf U Epithel Cells (Auto) (0-5) /lpf Urine Bacteria (Auto) (Negative) Nasal Influ A H1 2008 PCR (NotDetected) POC Stool Occult Blood (Negative) Adenovirus (PCR) (NotDetected) B. pertussis DNA (PCR) (NotDetected) B.parapertussis DNA PCR (NotDetected) C. pneumoniae DNA (PCR) (NotDetected) Coronavirus OC43 (PCR) (NotDetected) Coronavirus HKU1 (PCR) (NotDetected) Coronavirus 229E (PCR) (NotDetected) SARS-CoV-2 (PCR) (NotDetected) Coronavirus NL63 (PCR) (NotDetected) Human Metapneumovir PCR (NotDetected) Influenza Type B (PCR) (NotDetected) M. pneumoniae (PCR) (NotDetected) Parainfluenza 1 (PCR) (NotDetected) Parainfluenza 2 (PCR) (NotDetected) Parainfluenza 3 (PCR) (NotDetected) Parainfluenza 4 (PCR) (NotDetected) RSV (PCR) (NotDetected) Entero/Rhino (PCR) (NotDetected) Blood Type Antibody Screen 02/20/23 02/20/23 02/20/23 Range/Units 16:49 15:37 14:44 WBC 8.00 (4.8-10.8) K/ul RBC 3.29 L (4.20-5.40) M/uL Hgb 9.7 L (12.0-16.0) g/dl Hct 30.4 L (37.0-47.0) % MCV 92.4 (80.0-100.0) fL MCH 29.5 (25.0-34.0) pg MCHC 31.9 L (32.0-36.0) g/dL RDW Std Deviation 49.0 H (36.4-46.3) fL RDW Coeff of Jareth 14.5 (11.5-14.5) % Plt Count 250 (130-400) K/uL MPV 10.9 (9.4-12.4) fL Neutrophils % (Manual) 73 % Lymphocytes % (Manual) 9 % Monocytes % (Manual) 3 % Eosinophils % (Manual) 1 % Neutrophils # (Manual) 5.84 (1.40-6.50) K/uL Total Absolute Neuts 5.84 (1.4-6.5) K/uL Lymphocytes # (Manual) 0.72 L (1.2-3.4) K/uL Total Abs Lymphocytes 1.84 (1.2-3.4) K/uL Monocytes # (Manual) 0.24 (0.11-0.59) K/uL Eosinophils # (Manual) 0.08 (0-0.50) K/uL Large Granular Lymphs 14 % # Lrg Granular Lymphs 1.12 K/uL PT 74.4 H (9.0-12.0) Seconds INR 7.7 H* (0.9-1.1) Sodium 137 (136-145) mmol/L Potassium 4.4 (3.5-5.1) mmol/L Chloride 106 (98-107) mmol/L Carbon Dioxide 18 L (21-32) mmol/L Anion Gap 13 H (3-11) BUN 80 H (6-23) mg/dl Creatinine 2.10 H (0.6-1.2) mg/dl Est Cr Clr Drug Dosing 16.0 ml/min Est GFR ( Amer) 23.8 ml/min Est GFR (Non-Af Amer) 20.5 ml/min BUN/Creatinine Ratio 38.1 H (10-20) Glucose 116 H (70-99(Fasting)) mg/dl POC Glucose (70-99) mg/dl Estimat Average Glucose mg/dl Hemoglobin A1c (4.5-5.6) % Calcium 8.8 (8.6-10.3) mg/dl Phosphorus 4.0 (2.5-4.9) mg/dl Magnesium 1.6 L (1.7-2.4) mg/dl Total Bilirubin 0.5 (0.2-1.0) mg/dl AST 25 (13-39) U/L ALT 15 (7-52) U/L Alkaline Phosphatase 56 (34-104) U/L Total Protein 6.7 (6.0-8.3) gm/dl Albumin 3.2 L (3.4-5.0) gm/dl Globulin 3.5 (2.5-4.0) gm/dl Albumin/Globulin Ratio 0.9 (0.9-2) Lipase 65 (11-82) U/L Urine Color Yellow Urine Appearance Turbid A (Clear) Urine pH 5.0 (4.5-7.5) Ur Specific [place] 1.016 (1.000-1.030) Urine Protein 1+ H (Negative) Urine Glucose (UA) Negative (Negative) Urine Ketones Trace H (Negative) Urine Blood 1+ H (Negative) Urine Nitrite Positive A (Negative) Urine Bilirubin Negative (Negative) Urine Urobilinogen Negative (Negative) Ur Leukocyte Esterase 3+ H (Negative) Urine WBC (Auto) >30 H (0-5) /hpf Urine RBC (Auto) 0-4 (0-4) /hpf U Hyaline Cast (Auto) 1-5 (0-5) /lpf U Epithel Cells (Auto) >30 H (0-5) /lpf Urine Bacteria (Auto) 4+ H (Negative) Nasal Influ A H1 2009 PCR (NotDetected) POC Stool Occult Blood Positive A (Negative) Adenovirus (PCR) (NotDetected) B. pertussis DNA (PCR) (NotDetected) B.parapertussis DNA PCR (NotDetected) C. pneumoniae DNA (PCR) (NotDetected) Coronavirus OC43 (PCR) (NotDetected) Coronavirus HKU1 (PCR) (NotDetected) Coronavirus 229E (PCR) (NotDetected) SARS-CoV-2 (PCR) (NotDetected) Coronavirus NL63 (PCR) (NotDetected) Human Metapneumovir PCR (NotDetected) Influenza Type B (PCR) (NotDetected) M. pneumoniae (PCR) (NotDetected) Parainfluenza 1 (PCR) (NotDetected) Parainfluenza 2 (PCR) (NotDetected) Parainfluenza 3 (PCR) (NotDetected) Parainfluenza 4 (PCR) (NotDetected) RSV (PCR) (NotDetected) Entero/Rhino (PCR) (NotDetected) Blood Type A Positive Antibody Screen NEGATIVE 02/20/23 Range/Units 14:43 WBC (4.8-10.8) K/ul RBC (4.20-5.40) M/uL Hgb (12.0-16.0) g/dl Hct (37.0-47.0) % MCV (80.0-100.0) fL MCH (25.0-34.0) pg MCHC (32.0-36.0) g/dL RDW Std Deviation (36.4-46.3) fL RDW Coeff of Jareth (11.5-14.5) % Plt Count (130-400) K/uL MPV (9.4-12.4) fL Neutrophils % (Manual) % Lymphocytes % (Manual) % Monocytes % (Manual) % Eosinophils % (Manual) % Neutrophils # (Manual) (1.40-6.50) K/uL Total Absolute Neuts (1.4-6.5) K/uL Lymphocytes # (Manual) (1.2-3.4) K/uL Total Abs Lymphocytes (1.2-3.4) K/uL Monocytes # (Manual) (0.11-0.59) K/uL Eosinophils # (Manual) (0-0.50) K/uL Large Granular Lymphs % # Lrg Granular Lymphs K/uL PT (9.0-12.0) Seconds INR (0.9-1.1) Sodium (136-145) mmol/L Potassium (3.5-5.1) mmol/L Chloride (98-107) mmol/L Carbon Dioxide (21-32) mmol/L Anion Gap (3-11) BUN (6-23) mg/dl Creatinine (0.6-1.2) mg/dl Est Cr Clr Drug Dosing ml/min Est GFR ( Amer) ml/min Est GFR (Non-Af Amer) ml/min BUN/Creatinine Ratio (10-20) Glucose (70-99(Fasting)) mg/dl POC Glucose (70-99) mg/dl Estimat Average Glucose mg/dl Hemoglobin A1c (4.5-5.6) % Calcium (8.6-10.3) mg/dl Phosphorus (2.5-4.9) mg/dl Magnesium (1.7-2.4) mg/dl Total Bilirubin (0.2-1.0) mg/dl AST (13-39) U/L ALT (7-52) U/L Alkaline Phosphatase (34-104) U/L Total Protein (6.0-8.3) gm/dl Albumin (3.4-5.0) gm/dl Globulin (2.5-4.0) gm/dl Albumin/Globulin Ratio (0.9-2) Lipase (11-82) U/L Urine Color Urine Appearance (Clear) Urine pH (4.5-7.5) Ur Specific [place] (1.000-1.030) Urine Protein (Negative) Urine Glucose (UA) (Negative) Urine Ketones (Negative) Urine Blood (Negative) Urine Nitrite (Negative) Urine Bilirubin (Negative) Urine Urobilinogen (Negative) Ur Leukocyte Esterase (Negative) Urine WBC (Auto) (0-5) /hpf Urine RBC (Auto) (0-4) /hpf U Hyaline Cast (Auto) (0-5) /lpf U Epithel Cells (Auto) (0-5) /lpf Urine Bacteria (Auto) (Negative) Nasal Influ A H1 2009 PCR DETECTED A* (NotDetected) POC Stool Occult Blood (Negative) Adenovirus (PCR) Not Detected (NotDetected) B. pertussis DNA (PCR) Not Detected (NotDetected) B.parapertussis DNA PCR Not Detected (NotDetected) C. pneumoniae DNA (PCR) Not Detected (NotDetected) Coronavirus OC43 (PCR) Not Detected (NotDetected) Coronavirus HKU1 (PCR) Not Detected (NotDetected) Coronavirus 229E (PCR) Not Detected (NotDetected) SARS-CoV-2 (PCR) Not Detected (NotDetected) Coronavirus NL63 (PCR) Not Detected (NotDetected) Human Metapneumovir PCR Not Detected (NotDetected) Influenza Type B (PCR) Not Detected (NotDetected) M. pneumoniae (PCR) Not Detected (NotDetected) Parainfluenza 1 (PCR) Not Detected (NotDetected) Parainfluenza 2 (PCR) Not Detected (NotDetected) Parainfluenza 3 (PCR) Not Detected (NotDetected) Parainfluenza 4 (PCR) Not Detected (NotDetected) RSV (PCR) Not Detected (NotDetected) Entero/Rhino (PCR) Not Detected (NotDetected) Blood Type Antibody Screen
[2023-02-21 09:38] LABS: Hematocrit (blood only) 27.9 % (37.0-47.0); Hemoglobin 8.7 g/dl (12.0-16.0); Mean Corpuscular Hemoglobin 28.8 pg (25.0-34.0); Mean Corpuscular Hgb Conc 31.2 g/dL (32.0-36.0); Mean Corpuscular Volume 92.4 fL (80.0-100.0); Mean Platelet Volume 10.4 fL (9.4-12.4); Platelet Count 240 K/uL (130-400); RDW Coefficient of Variation 14.5 % (11.5-14.5); RDW Standard Deviation 48.9 fL (36.4-46.3); Red Blood Count 3.02 M/uL (4.20-5.40); White Blood Count 7.52 K/ul (4.8-10.8)
[2023-02-21] MEDS: guaiFENesin SUGAR FREE 200 MG/10 ML UDC PO PRN (11:00)
[2023-02-21 16:17] LABS: Hematocrit (blood only) 24.3 % (37.0-47.0); Hemoglobin 7.8 g/dl (12.0-16.0); Mean Corpuscular Hemoglobin 29.1 pg (25.0-34.0); Mean Corpuscular Hgb Conc 32.1 g/dL (32.0-36.0); Mean Corpuscular Volume 90.7 fL (80.0-100.0); Mean Platelet Volume 10.3 fL (9.4-12.4); Platelet Count 233 K/uL (130-400); RDW Coefficient of Variation 14.6 % (11.5-14.5); RDW Standard Deviation 48.6 fL (36.4-46.3); Red Blood Count 2.68 M/uL (4.20-5.40); White Blood Count 6.97 K/ul (4.8-10.8)
--- NOTE | 2023-02-21 18:28 | Hospitalist Progress Note ---
Date of Service February 21, 2023 Assessment & Plan (1) Acute GI bleeding: (2) Atrial fibrillation: (3) Hypertension: (4) JOLIE (acute kidney injury): (5) Hypomagnesemia: (6) Supratherapeutic INR: (7) Influenza A: (8) Melena: (9) Diarrhea: (10) Hyperlipidemia: (11) Diabetes mellitus type 2 in obese: Plan Ms. Benitez is an 87 year old female that presents to the ED today with weakness, decreased PO intake, and diarrhea x3 days with noted lb red melena. She was on recent antibiotics for a UTI. Incidentally, was found to have a Supratherapeutic INR. No leukocytosis, mild JOLIE Creatinine 2.10; baseline 1.2- 1.3. Most recent ECHO 11/17/22: EF 55-59%, moderate to severe MR, Moderate TR; mild pHTN. On examination she is AAOx3 and able to have a meaningful conversation and appears relatively stable. Normotensive without tachycardia or hypoxia. She is afebrile and on room air. While I was interviewing her with her family at the bedside she went into an 8 beat run of asymptomatic V. tach. ECG was obtained at that time with A-fib and PVCs. Patient denies chest pain. Will obtain BMP with CBC/PT/INR check at 2100. Patient complex with numerous issues including a GIB and supratherapeutic INR which is suspected to be related to abx use for a recent UTI. Patient with chronic kidney dysfunction, will monitor trends and obtain renal US. She is positive for influenza; will hold on any Tamiflu for now given the complexity of her other ailments. Will hold on any additional fluid given her moderate to severe MR and has remained normotensive since arrival. If tamiflu is considered, would need renal dosing given acute on chronic kidney failure. Will replace electrolyte. In the meantime will consult GI and placed on Protonix drip. GIB: Lb melena;black tarry stools x 3 days FOBT + Hypotensive initially in ED; received 2 LNSB; serum Hgb 9.7 on admission; baseline 11.1 Hemoglobin dropped to 7.8 Continue PPI drip GI on board No plan for endoscopy Type and cross and 1 unit PRBC on hold Will transfuse if hemoglobin drop below 7 Case discussed with GI and okay to start on clear liquid diet Continue monitor H&H Supratherapeutic INR: INR 7.7; Vitamin K 10 mg IV administered in ED Repeat INR 1.2 Continue to hold Coumadin OJLIE: serum creatinine 2.10; baseline 1.2-1.3 Received IV fluid Creatinine 1.4 Renal u/s showed no hydronephrosis. Echogenic kidneys with moderate cortical thinning. This suggests medical renal disease. Continue to hold lisinopril Continue monitor BMP Influenza A +: Tested positive for influenza A Rest of Biofire negative Continue supportive therapy Saturating well on room air Ventricular Tachycardia: During evaluation in the room; 8 beat run VT asymptomatic Will keep potassium above 4 and magnesium above 2 Hypomg+ Serum Mg+ 1.6 on admission, replaced with 1 G Mg+ in ED Mag 1.7 today Continue monitor magnesium level Abnormal UA UA positive for nitrite, leukocyte and bacteria Patient was started on cefepime Urine culture grew multiple organism (possible contamination) Will continue antibiotic to complete at least 3 days course Continue to monitor HTN: Continue amlodipine Hold Lisinopril for now due to JOLIE Takes Lasix; hold temporarily to assist with maintaining BP with active bleed Diabetes Mellitus type 2: Most recent hemoglobin A1c 8.5 Hold glipizide and Metformin while inpt Continue insulin sliding scale and Lantus Monitor blood sugar HLD: Continue atorvastatin Disposition: PCP: Dr. Mak Code Status: Full Code VTE prophylaxis: hold Coumadin due to GI bleed and low hgb [place] [facility] [place] and Anticipated Discharge Date Admission Date: February 20, 2023 Subjective Patient was seen and evaluated for follow-up lying in bed with no acute distress Patient said her cough is much better Denies any chest pain, palpitation, dizziness, shortness of breath. Review of Systems Review of Systems: All systems reviewed & are unremarkable except as noted in Subjective Physical Exam Physical Exam: General- No acute distress Head- atraumatic Eyes- PERRL, EOMI, ENT- oropharynx clear Neck- supple, no JVD Lungs- +coarse BS Heart- regular rhythm Abdomen- normal bowel sounds, soft, nontender Extremities- no calf tenderness Neuro- alert, oriented x 3; PERRL, EOMI; no facial palsy; no dysarthria Skin- warm & dry Results & Data Results & Data Vital Signs (Past 12 Hours) Vital Signs Temp Pulse Pulse Resp BP Pulse Ox O2 Del Method 02/21/23 15:23 79 02/21/23 15:18 36.7 C 85 17 106/65 97 Room Air 02/21/23 11:06 36.7 C 78 18 120/58 L 94 Room Air 02/21/23 08:00 Room Air 02/21/23 07:28 37.1 C 98 H 17 133/65 97 Room Air 02/21/23 07:00 100 H
[2023-02-21] MEDS: CEFEPIME 1,000 MG in SYRINGE 0 ML IV SCH (18:30)
[2023-02-21] MEDS: LORazepam 0.5 MG TAB PO PRN (20:47)
[2023-02-21 22:55] LABS: Hematocrit (blood only) 22.6 % (37.0-47.0); Hemoglobin 7.3 g/dl (12.0-16.0)
[2023-02-22] MEDS: PANTOprazole 40 MG in DEXTROSE 5% MINI-B 100 ML IV SCH ×4 (05:11→20:23)
[2023-02-22 05:49] LABS: Basophils # (auto) 0.01 K/uL (0.00-0.20); Basophils % (auto) 0.2 %; Hematocrit (blood only) 23.1 % (37.0-47.0); Hemoglobin 7.6 g/dl (12.0-16.0); Immature Granulocytes # (auto) 0.03 K/uL (0.01-0.20); Immature Granulocytes % (auto) 0.5 %; Lymphocytes # (auto) 0.83 K/uL (1.20-3.40); Lymphocytes % (auto) 13.6 %; Mean Corpuscular Hemoglobin 29.7 pg (25.0-34.0); Mean Corpuscular Hgb Conc 32.9 g/dL (32.0-36.0); Mean Corpuscular Volume 90.2 fL (80.0-100.0); Mean Platelet Volume 10.1 fL (9.4-12.4); Monocytes % (auto) 8.2 %; Neutrophils # (auto) 4.74 K/uL (1.40-6.50); Neutrophils % (auto) 77.5 %; Platelet Count 204 K/uL (130-400); RDW Coefficient of Variation 14.6 % (11.5-14.5); RDW Standard Deviation 48.3 fL (36.4-46.3); Red Blood Count 2.56 M/uL (4.20-5.40); White Blood Count 6.11 K/ul (4.8-10.8)
[2023-02-22 06:12] LABS: Echinocytes 2+
[2023-02-22 06:31] LABS: BUN Creatinine Ratio 33.1 (10-20); Calcium 8.3 mg/dl (8.6-10.3); Creatinine Clr Calc Pharmacy 27.8 ml/min; Est GFR (African American) 46.3 ml/min; Est GFR (Non-African American) 39.9 ml/min; Magnesium 1.8 mg/dl (1.7-2.4); Potassium 3.9 mmol/L (3.5-5.1)
[2023-02-22] MEDS: CEFEPIME 1,000 MG in SYRINGE 0 ML IV SCH (06:32)
[2023-02-22] MEDS: INSULIN ASPART PER UNIT CHARGE SC SCH ×4 (07:48→20:21)
[2023-02-22] MEDS: LANTUS PER UNIT CHARGE SQ SCH ×2 (07:58→20:21)
[2023-02-22] MEDS: ATORVASTATIN 40 MG TAB PO SCH (08:01)
[2023-02-22] MEDS: METOPROLOL SUCC 50MG EXT REL TAB PO SCH ×2 (08:01→20:22)
--- NOTE | 2023-02-22 09:41 | Gastroenterology Progress Note ---
Date of Service February 22, 2023 Assessment & Plan (1) Supratherapeutic INR: Plan: 87 year old female with history of afib, HTN, dyslipidemia, DM and others below admitted through the ED with GI bleeding, and influenza A, supratherapeutic INR at 7.7 reversed with Vit K. Since arrival, no further episodes of GI bleeding, HGB stable Continue conservative measures for now No plan for endoscopic evaluation May advance diet as tolerated Trend H&H Monitor and document GI output Transfuse PRN primary service Monitor INR GI will sign off. Recall GI as needed. Thank you for allowing us to participate in the care of this patient. Please call with any acute changes, questions or concerns. Please see addendum below with additional recommendation from my supervising physician. (2) Acute GI bleeding: Admission and Anticipated Discharge Date Admission Date: February 20, 2023 Supervising Physician Co-Signing Physician Notes I have personally seen and examined the patient with PARESH Martini. Her note reflects my exam and findings. I agree with her impression and plan. H/H stable since correcting INR. Given age and co morbid disease, I do not recommend endoscopic evaluation since it will not change current care and would add to risk of complications from invasive testing and anesthesia. I personally spoke to daughter; Jacqueline Morgan and reviewed this information and update. Michael Hodge M.D. Subjective Feeling well from GI standpoint. No further episodes of bowel movements or rectal bleeding. Denies abd pain, no nausea, vomiting. No fever, chills, CP, SOB. Review of Systems Review of Systems: All systems reviewed & are unremarkable except as noted in HPI & below Physical Exam Constitutional: WD/WN, vitals as above Respiratory: normal respiratory effort, lungs clear to auscultation Cardiovascular: Rate/Rhythm: regular rate Gastrointestinal (Abdomen): Percussion/Palpation: abdomen soft Skin: no rashes, warm and dry Results & Data Vital Signs (Past 12 Hours) Vital Signs Temp Pulse Pulse Resp BP Pulse Ox O2 Del Method 02/22/23 07:46 36.4 C L 96 H 18 102/65 94 Room Air 02/22/23 03:00 36.5 C 84 16 125/71 94 Room Air 02/21/23 23:00 36.6 C 79 16 137/65 95 Room Air 12/12/23 22:00 75 Laboratory Results 02/22/23 02/22/23 02/21/23 Range/Units 07:19 05:30 22:33 WBC 6.11 (4.8-10.8) K/ul RBC 2.56 L (4.20-5.40) M/uL Hgb 7.6 L 7.3 L (12.0-16.0) g/dl Hct 23.1 L 22.6 L (37.0-47.0) % MCV 90.2 (80.0-100.0) fL MCH 29.7 (25.0-34.0) pg MCHC 32.9 (32.0-36.0) g/dL RDW Std Deviation 48.3 H (36.4-46.3) fL RDW Coeff of Jareth 14.6 H (11.5-14.5) % Plt Count 204 (130-400) K/uL MPV 10.1 (9.4-12.4) fL Immature Gran % (Auto) 0.5 % Neut % (Auto) 77.5 % Lymph % (Auto) 13.6 % [place] % (Auto) 8.2 % Eos % (Auto) 0.0 % Baso % (Auto) 0.2 % Neut # (Auto) 4.74 (1.40-6.50) K/uL Lymph # (Auto) 0.83 L (1.20-3.40) K/uL [place] # (Auto) 0.50 (0.11-0.59) K/uL Eos # (Auto) 0.00 (0.00-0.50) K/uL Baso # (Auto) 0.01 (0.00-0.20) K/uL Immature Gran # (Auto) 0.03 (0.01-0.20) K/uL Echinocytes 2+ Sodium 139 (136-145) mmol/L Potassium 3.9 (3.5-5.1) mmol/L Chloride 112 H (98-107) mmol/L Carbon Dioxide 20 L (21-32) mmol/L Anion Gap 7 (3-11) BUN 40 H D (6-23) mg/dl Creatinine 1.21 H (0.6-1.2) mg/dl Est Cr Clr Drug Dosing 27.8 ml/min Est GFR ( Amer) 46.3 ml/min Est GFR (Non-Af Amer) 39.9 ml/min BUN/Creatinine Ratio 33.1 H (10-20) Glucose 126 H (70-99(Fasting)) mg/dl POC Glucose 144 H (70-99) mg/dl Calcium 8.3 L (8.6-10.3) mg/dl Magnesium 1.8 (1.7-2.4) mg/dl Blood Type Blood Type Recheck Antibody Screen 02/21/23 02/21/23 02/21/23 Range/Units 20:33 18:49 15:59 WBC 6.97 (4.8-10.8) K/ul RBC 2.68 L (4.20-5.40) M/uL Hgb 7.8 L (12.0-16.0) g/dl Hct 24.3 L (37.0-47.0) % MCV 90.7 (80.0-100.0) fL MCH 29.1 (25.0-34.0) pg MCHC 32.1 (32.0-36.0) g/dL RDW Std Deviation 48.6 H (36.4-46.3) fL RDW Coeff of Jareth 14.6 H (11.5-14.5) % Plt Count 233 (130-400) K/uL MPV 10.3 (9.4-12.4) fL Immature Gran % (Auto) % Neut % (Auto) % Lymph % (Auto) % [place] % (Auto) % Eos % (Auto) % Baso % (Auto) % Neut # (Auto) (1.40-6.50) K/uL Lymph # (Auto) (1.20-3.40) K/uL [place] # (Auto) (0.11-0.59) K/uL Eos # (Auto) (0.00-0.50) K/uL Baso # (Auto) (0.00-0.20) K/uL Immature Gran # (Auto) (0.01-0.20) K/uL Echinocytes Sodium (136-145) mmol/L Potassium (3.5-5.1) mmol/L Chloride (98-107) mmol/L Carbon Dioxide (21-32) mmol/L Anion Gap (3-11) BUN (6-23) mg/dl Creatinine (0.6-1.2) mg/dl Est Cr Clr Drug Dosing ml/min Est GFR ( Amer) ml/min Est GFR (Non-Af Amer) ml/min BUN/Creatinine Ratio (10-20) Glucose (70-99(Fasting)) mg/dl POC Glucose 136 H (70-99) mg/dl Calcium (8.6-10.3) mg/dl Magnesium (1.7-2.4) mg/dl Blood Type Blood Type Recheck A Positive Antibody Screen 02/21/23 02/21/23 02/20/23 Range/Units 15:51 11:45 14:44 WBC (4.8-10.8) K/ul RBC (4.20-5.40) M/uL Hgb (12.0-16.0) g/dl Hct (37.0-47.0) % MCV (80.0-100.0) fL MCH (25.0-34.0) pg MCHC (32.0-36.0) g/dL RDW Std Deviation (36.4-46.3) fL RDW Coeff of Jareth (11.5-14.5) % Plt Count (130-400) K/uL MPV (9.4-12.4) fL Immature Gran % (Auto) % Neut % (Auto) % Lymph % (Auto) % [place] % (Auto) % Eos % (Auto) % Baso % (Auto) % Neut # (Auto) (1.40-6.50) K/uL Lymph # (Auto) (1.20-3.40) K/uL [place] # (Auto) (0.11-0.59) K/uL Eos # (Auto) (0.00-0.50) K/uL Baso # (Auto) (0.00-0.20) K/uL Immature Gran # (Auto) (0.01-0.20) K/uL Echinocytes Sodium (136-145) mmol/L Potassium (3.5-5.1) mmol/L Chloride (98-107) mmol/L Carbon Dioxide (21-32) mmol/L Anion Gap (3-11) BUN (6-23) mg/dl Creatinine (0.6-1.2) mg/dl Est Cr Clr Drug Dosing ml/min Est GFR ( Amer) ml/min Est GFR (Non-Af Amer) ml/min BUN/Creatinine Ratio (10-20) Glucose (70-99(Fasting)) mg/dl POC Glucose 149 H 180 H (70-99) mg/dl Calcium (8.6-10.3) mg/dl Magnesium (1.7-2.4) mg/dl Blood Type A Positive Blood Type Recheck Antibody Screen NEGATIVE
--- NOTE | 2023-02-22 15:30 | Hospitalist Progress Note ---
Date of Service February 22, 2023 Assessment & Plan (1) Acute GI bleeding: (2) Atrial fibrillation: (3) Hypertension: (4) JOLIE (acute kidney injury): (5) Hypomagnesemia: (6) Supratherapeutic INR: (7) Influenza A: (8) Melena: (9) Diarrhea: (10) Hyperlipidemia: (11) Diabetes mellitus type 2 in obese: Plan Pt is an 87yoF with PMhx significant for a fib, HTN, HLD, DMII admitted with an acute GI Bleed in the setting of a supratherpauetic INR. GIB: Lb melena;black tarry stools x 3 days FOBT + Hypotensive initially in ED; received 2 LNSB; serum Hgb 9.7 on admission; baseline 11.1 Hemoglobin currently 7.6 Continue PPI drip GI consult- appreciate recs -recommending against endoscopy due to risk given pt's age Advancing diet Continue monitor H&H, transfuse as needed Supratherapeutic INR: On admission, INR 7.7; Vitamin K 10 mg IV administered in ED Repeat INR 1.2 Continue to hold Coumadin Trend INR, consider lovenox bridge once h/h stable and bleeding resolved JOLIE: serum creatinine 2.10 on admission; baseline 1.2-1.3 Received IV fluids Continue to hold lisinopril Improving Monitor with AM labs Influenza A +: Tested positive for influenza A Rest of Biofire negative Sputum Cx growing H flu Continue supportive therapy Saturating well on room air Ventricular Tachycardia: During evaluation in the room; 8 beat run VT asymptomatic Will keep potassium above 4 and magnesium above 2 Continue to monitor Hypomg+ Serum Mg+ 1.6 on admission, replaced with 1 G Mg+ in ED Continue to monitor magnesium level Abnormal UA UA positive for nitrite, leukocyte and bacteria Urine culture grew multiple organism (possible contamination) On Cefepime- transitioned to rocephin on 02/23 Will continue antibiotic to complete at least 3 days course Continue to monitor HTN: Hold amlodipine in setting of acute GI Bleed with hypotension Hold Lisinopril due to JOLIE Takes Lasix; hold temporarily to assist with maintaining BP with active bleed Continue to monitor BP Diabetes Mellitus type 2: Most recent hemoglobin A1c 8.5 Hold glipizide and Metformin while inpt Continue insulin sliding scale and Lantus Monitor blood sugar HLD: Continue atorvastatin Diet: HH/DMII Code Status: Full Code VTE prophylaxis: hold Coumadin due to GI bleed and supratherapeutic INR Dispo: PT/OT ordered, per CM pt to go home Admission and Anticipated Discharge Date Admission Date: February 20, 2023 Subjective Pt seen in the AM. Daughter not at bedside. Anxious to get home. Per nursing would also like to eat. States she has had no further bowel movements. Review of Systems Review of Systems: All systems reviewed & are unremarkable except as noted in Subjective Physical Exam Physical Exam: General: Alert, oriented. No acute distress Skin: No noted rashes or bruises Psych: Appropriate mood and affect Neuro: No gross deficits while laying in bed HEENT: NC/AT Chest: Nontender to palpation. CV: RRR Resp: Breath sounds with scattered wheezes bilaterally, no increased effort of breathing. Abdomen:Soft, nontender, nondistended. Extremities: No edema in lower extremities bilaterally. Results & Data Results & Data Vital Signs (Past 12 Hours) Vital Signs Temp Pulse Pulse Resp BP Pulse Ox O2 Del Method 02/22/23 15:05 36.5 C 81 20 118/66 96 Room Air 02/22/23 14:54 83 02/22/23 11:20 36.4 C L 86 19 90/59 L Room Air 02/22/23 10:09 86 02/22/23 09:47 Room Air 02/22/23 07:46 36.4 C L 96 H 18 102/65 94 Room Air
[2023-02-22] MEDS ORDERED: cefTRIAXone SODIUM 2,000 MG in DEXTROSE 5 % MINI-B 50 ML IV SCH (18:00)
[2023-02-22] MEDS: guaiFENesin SUGAR FREE 200 MG/10 ML UDC PO PRN (20:23)
[2023-02-22] MEDS: ACETAMINOPHEN 325 MG TAB PO PRN (20:24)
[2023-02-22] MEDS: LORazepam 0.5 MG TAB PO PRN (20:29)
[2023-02-23] MEDS: PANTOprazole 40 MG in DEXTROSE 5% MINI-B 100 ML IV SCH ×3 (03:34→10:21)
[2023-02-23 08:01] LABS: Basophils # (auto) 0.02 K/uL (0.00-0.20); Basophils % (auto) 0.3 %; Hematocrit (blood only) 25.8 % (37.0-47.0); Hemoglobin 8.1 g/dl (12.0-16.0); Immature Granulocytes # (auto) 0.06 K/uL (0.01-0.20); Immature Granulocytes % (auto) 0.9 %; Lymphocytes % (auto) 14.7 %; Mean Corpuscular Hemoglobin 28.8 pg (25.0-34.0); Mean Corpuscular Hgb Conc 31.4 g/dL (32.0-36.0); Mean Corpuscular Volume 91.8 fL (80.0-100.0); Mean Platelet Volume 10.7 fL (9.4-12.4); Monocytes # (auto) 0.59 K/uL (0.11-0.59); Monocytes % (auto) 8.7 %; Neutrophils # (auto) 5.14 K/uL (1.40-6.50); Neutrophils % (auto) 75.4 %; Nucleated RBC # (auto) 0.02 K/uL (0.00-0.12); Nucleated RBC % (auto) 0.3 %; Platelet Count 236 K/uL (130-400); RDW Coefficient of Variation 14.4 % (11.5-14.5); RDW Standard Deviation 48.5 fL (36.4-46.3); Red Blood Count 2.81 M/uL (4.20-5.40); White Blood Count 6.81 K/ul (4.8-10.8)
[2023-02-23 08:10] LABS: Albumin Globulin Ratio 0.9 (0.9-2); Albumin Level 2.9 gm/dl (3.4-5.0); BUN Creatinine Ratio 24.1 (10-20); Bilirubin,Total 0.5 mg/dl (0.2-1.0); Calcium 8.5 mg/dl (8.6-10.3); Creatinine Clr Calc Pharmacy 28.7 ml/min; Est GFR (African American) 48.7 ml/min; Globulin 3.4 gm/dl (2.5-4.0); Magnesium 1.6 mg/dl (1.7-2.4); Total Protein 6.3 gm/dl (6.0-8.3)
[2023-02-23] MEDS: ATORVASTATIN 40 MG TAB PO SCH (08:19)
[2023-02-23] MEDS: METOPROLOL SUCC 50MG EXT REL TAB PO SCH ×2 (08:20→20:13)
[2023-02-23 08:21] LABS: INR 1.5 (0.9-1.1); Prothrombin Time 16.1 Seconds (9.0-12.0)
[2023-02-23] MEDS: INSULIN ASPART PER UNIT CHARGE SC SCH ×4 (08:24→20:15)
[2023-02-23] MEDS: LANTUS PER UNIT CHARGE SQ SCH ×2 (08:24→20:14)
[2023-02-23] MEDS ORDERED: MAGNESIUM OXIDE 400 MG TAB PO ONE (10:28)
--- NOTE | 2023-02-23 11:13 | Discharge Summary ---
Discharge Summary Date of Service February 23, 2023 Notes For Next Care Provider Hgb 8.1 on discharge, pt would like to go home. Please repeat CBC at nephrology appointment on Monday02/23/23 to ensure stability and continue to monitor at pcp appointment on Monday02/27/23 as well. Pt with sputum growing H flu, concern for UTI- discharged with 8 more days of PO cefdinir treatment. Please ensure resolution of symptoms. Please ensure close followup with Coumadin clinic, and monitor INR while on antibiotics as INR was 7.7 on admission. Otherwise as below. Medication Changes From Visit Cefdinir 300mg BID x 8 days pantoprazole 40mg BID Admission HPI Per Admitting Provider Ms. Benitez is an 87 year old female that presents to the ED today with weakness, decreased PO intake, and diarrhea x3 days with noted lb red melena. She was on recent antibiotics for a UTI. Incidentally, was found to have a Supratherapeutic INR. No leukocytosis, mild JOILE Creatinine 2.10; baseline 1.2- 1.3. Most recent ECHO 11/17/22: EF 55-59%, moderate to severe MR, Moderate TR; mild pHTN. Patient denies tobacco, alcohol, recreational drug including medical marijuana use. She denies CARABALLO, dizziness, SOB, chest pain, palpitations, abdominal pain or tenderness, recent falls or trauma, visual or auditory changes. On examination she is AAOx3 and able to have a meaningful conversation and appears relatively stable. Normotensive without tachycardia or hypoxia. She is afebrile and on room air. While I was interviewing her with her family at the bedside she went into an 8 beat run of asymptomatic V. tach. ECG was obtained at that time with A-fib and PVCs. Patient denies chest pain. Will obtain BMP with CBC/PT/INR check at 2100. Patient complex with numerous issues including a GIB and supratherapeutic INR which is suspected to be related to abx use for a recent UTI. Patient with chronic kidney dysfunction, will monitor trends and obtain renal US. She is positive for influenza; will hold on any Tamiflu for now given the complexity of her other ailments. Will hold on any additional fluid given her moderate to severe MR and has remained normotensive since arrival. If tamiflu is considered, would need renal dosing given acute on chronic kidney failure. Will replace electrolyte. In the meantime will consult GI and placed on Protonix drip. Patient will be admitted for further evaluation and management. Please see H&P for further details. Principal Dx & Hospital Course #1 = Principal Diagnosis (1) Acute GI bleeding: (2) Atrial fibrillation: (3) Hypertension: (4) JOLIE (acute kidney injury): (5) Hypomagnesemia: (6) Supratherapeutic INR: (7) Influenza A: (8) Melena: (9) Diarrhea: (10) Hyperlipidemia: (11) Diabetes mellitus type 2 in obese: Plan Pt is an 87yoF with PMhx significant for a fib, HTN, HLD, DMII admitted with an acute GI Bleed in the setting of a supratherpauetic INR. GIB: Lb melena;black tarry stools x 3 days FOBT + Hypotensive initially in ED; received 2 LNSB; serum Hgb 9.7 on admission; baseline 11.1 Hemoglobin currently 7.6 Continue PPI drip GI consult- appreciate recs -recommending against endoscopy due to risk given pt's age Advancing diet Continue monitor H&H, transfuse as needed Supratherapeutic INR: On admission, INR 7.7; Vitamin K 10 mg IV administered in ED Repeat INR 1.2 Continue to hold Coumadin Trend INR, consider lovenox bridge once h/h stable and bleeding resolved JOLIE: serum creatinine 2.10 on admission; baseline 1.2-1.3 Received IV fluids Continue to hold lisinopril Improving Monitor with AM labs Influenza A +: Tested positive for influenza A Rest of Biofire negative Sputum Cx growing H flu Continue supportive therapy Saturating well on room air Ventricular Tachycardia: During evaluation in the room; 8 beat run VT asymptomatic Will keep potassium above 4 and magnesium above 2 Continue to monitor Hypomg+ Serum Mg+ 1.6 on admission, replaced with 1 G Mg+ in ED Continue to monitor magnesium level Abnormal UA UA positive for nitrite, leukocyte and bacteria Urine culture grew multiple organism (possible contamination) On Cefepime- transitioned to rocephin on 02/23 Will continue antibiotic to complete at least 3 days course Continue to monitor HTN: Hold amlodipine in setting of acute GI Bleed with hypotension Hold Lisinopril due to JOLIE Takes Lasix; hold temporarily to assist with maintaining BP with active bleed Continue to monitor BP Diabetes Mellitus type 2: Most recent hemoglobin A1c 8.5 Hold glipizide and Metformin while inpt Continue insulin sliding scale and Lantus Monitor blood sugar HLD: Continue atorvastatin Diet: HH/DMII Code Status: Full Code VTE prophylaxis: hold Coumadin due to GI bleed and supratherapeutic INR Dispo: PT/OT ordered, per CM pt to go home Discharge Exam General: Alert, oriented. No acute distress Skin: No noted rashes or bruises Psych: Appropriate mood and affect Neuro: No gross deficits while laying in bed HEENT: NC/AT Chest: Nontender to palpation. CV: RRR Resp: Breath sounds with scattered wheezes bilaterally, no increased effort of breathing. Abdomen:Soft, nontender, nondistended. Extremities: No edema in lower extremities bilaterally. Updated Medication List Medication Instructions Recorded Confirmed Type cholecalciferol (vitamin D3) 25 1,000 unit PO DAILY 12/29/18 02/20/23 History mcg (1,000 unit) capsule (Vitamin D3) cyanocobalamin (vitamin B-12) 1,000 mcg PO DAILY 12/29/18 02/20/23 History 1,000 mcg tablet (Vitamin B-12) glipizide 2.5 mg tablet, extended 2.5 mg PO DAILY 12/29/18 02/20/23 History release 24 hr (Glucotrol XL) lorazepam 0.5 mg tablet (Ativan) 0.5 mg PO BID PRN Anxiety 12/29/18 02/20/23 History metoprolol succinate 100 mg See Rx Instructions .Route .COMPLEX 12/29/18 02/20/23 History tablet,extended release 24 hr (Toprol XL) polyethylene glycol 3350 17 17 g PO DAILY PRN Constipation 12/29/18 02/20/23 History gram/dose oral powder (Miralax) triamcinolone acetonide 0.1 % 1 applic topical BID PRN Itching 12/29/18 02/20/23 History topical cream (Triderm) amlodipine 2.5 mg tablet 2.5 mg PO QAM 02/20/23 02/20/23 History atorvastatin 80 mg tablet 80 mg PO QAM 02/20/23 02/20/23 History docusate sodium 100 mg capsule 100 mg PO DAILY 02/20/23 02/20/23 History hydrocodone 5 mg-acetaminophen 325 1 tab PO BID PRN Pain, Severe 02/20/23 02/20/23 History mg tablet lisinopril 20 mg tablet 20 mg PO DAILY 02/20/23 02/20/23 History metformin 500 mg tablet 500 mg PO BIDM 02/20/23 02/20/23 History warfarin 2 mg tablet See Rx Instructions .Route .COMPLEX 02/20/23 02/20/23 History cefdinir 300 mg capsule 300 mg PO BID #16 caps 02/23/23 Rx pantoprazole 40 mg tablet,delayed 40 mg PO BID #60 tabs 02/23/23 Rx release Hospital Stay Data Consultations 02/20/23 16:39 ED Decision to Admit Stat 02/20/23 16:40 Consult Gastroenterology Routine Diagnostic Imagining Performed 02/21/23 US renal/blad retro comp Routine Discharge Instructions Given to Patient (Per Discharging Provider) Ms. Benitez, We are discharging you home as you requested. You had an acute GI bleed because your blood was too thin based on the monitoring of your INR. We held your warfarin until that resolved and we are advising that you can re-start your warfarin on discharge. Please keep close follow up with the Coumadin clinic after discharge as you are also being discharged on antibiotics which can affect your INR as well. You saw the rocket assembly operator and they did not recommend an endoscopy as they believed the risks of doing that outweighed the benefits. they advise taking the medication pantoprazole 40mg twice a day to help with the bleeding. Your hemoglobin was low at 8.1 but stable on discharge. Since you are requesting to go home, we ask that you keep followup tomorrow with your internal affairs investigator as scheduled who can check on your blood counts to ensure it is not dropping further. You are also scheduled to follow up with your primary care provider on Monday02/27/23 and they will keep an eye on things there as well. You had a respiratory infection that grew a bacteria requiring antibiotic coverage and there was concern for a urinary tract infection as well. We are discharging you with 8 more days of cefdinir that you can take twice a day to help with those infections. Please keep your scheduled follow ups for close monitoring after discharge. It was a pleasure taking care of you while you were here!
[2023-02-23] MEDS: PANTOprazole 40 MG TAB PO SCH ×2 (11:21→22:10)
--- NOTE | 2023-02-23 14:26 | Hospitalist Progress Note ---
Date of Service February 23, 2023 Assessment & Plan (1) Acute GI bleeding: (2) Atrial fibrillation: (3) Hypertension: (4) JOILE (acute kidney injury): (5) Hypomagnesemia: (6) Supratherapeutic INR: (7) Influenza A: (8) Melena: (9) Diarrhea: (10) Hyperlipidemia: (11) Diabetes mellitus type 2 in obese: Plan Pt is an 87yoF with PMhx significant for a fib, HTN, HLD, DMII admitted with an acute GI Bleed in the setting of a supratherpauetic INR. GIB: Lb melena;black tarry stools x 3 days FOBT + Hypotensive initially in ED; received 2 LNSB; serum Hgb 9.7 on admission; baseline 11.1 Hemoglobin currently 8.1 PPI drip transitioned to po pantoprazole 40mg BID on 02/23 GI consult- appreciate recs -recommending against endoscopy due to risk given pt's age Diet currently HH/DMII Continue to monitor H&H, transfuse as needed Supratherapeutic INR: On admission, INR 7.7; Vitamin K 10 mg IV administered in ED Repeat INR 1.2 afterwards Continue to hold Coumadin Trend INR, consider lovenox bridge and re-starting warfarin once h/h stable and bleeding resolved JOLIE: serum creatinine 2.10 on admission; baseline 1.2-1.3 Received IV fluids Continue to hold lisinopril Improving but noted increased BUN on 02/23 IV fluids started again for 2 bags Monitor with AM labs Influenza A +: Tested positive for influenza A Rest of Biofire negative Sputum Cx growing H flu Continue supportive therapy Saturating well on room air Ventricular Tachycardia: During evaluation in the room; 8 beat run VT asymptomatic Will keep potassium above 4 and magnesium above 2 Continue to monitor Hypomg+ Serum Mg+ 1.6 on admission, replaced with 1 G Mg+ in ED Continue to monitor magnesium level Abnormal UA UA positive for nitrite, leukocyte and bacteria Urine culture grew multiple organism (possible contamination) On Cefepime- transitioned to rocephin on 02/22- transitioned to po cefdinir on 02/23 Continue to monitor HTN: Hold amlodipine in setting of acute GI Bleed with hypotension Hold Lisinopril due to JOLIE Takes Lasix; hold temporarily to assist with maintaining BP with active bleed Continue to monitor BP Diabetes Mellitus type 2: Most recent hemoglobin A1c 8.5 Hold glipizide and Metformin while inpt Continue insulin sliding scale and Lantus Monitor blood sugar HLD: Continue atorvastatin Diet: HH/DMII Code Status: Full Code VTE prophylaxis: hold Coumadin due to GI bleed and supratherapeutic INR Dispo: PT/OT ordered, per CM pt to go home Admission and Anticipated Discharge Date Admission Date: February 20, 2023 Subjective Pt seen in the AM. Stated that she wanted to go home. Discussion with patient of risks and continued need for close monitoring of symptoms but wanted to go home. Later after discharge was placed, notified by nursing that son wanted to speak to provider and did not want mother going home until completely stable. Discussed further with pt and son in the room. Pt agreeable afterwards to staying for transition to po pantoprazole and monitoring of hgb while on po pantoprazole. Review of Systems Review of Systems: All systems reviewed & are unremarkable except as noted in Subjective Physical Exam Physical Exam: General: Alert, oriented. No acute distress Skin: No noted rashes or bruises Psych: Appropriate mood and affect Neuro: No gross deficits while laying in bed HEENT: NC/AT Chest: Nontender to palpation. CV: RRR Resp: Breath sounds with scattered wheezes bilaterally, no increased effort of breathing. Abdomen:Soft, nontender, nondistended. Extremities: No edema in lower extremities bilaterally. Results & Data Results & Data Vital Signs (Past 12 Hours) Vital Signs Temp Pulse Resp BP Pulse Ox O2 Del Method 02/23/23 11:52 36.6 C 90 18 131/68 96 02/23/23 11:10 36.6 C 90 18 131/68 96 Room Air 02/23/23 07:18 36.6 C 76 18 156/72 H 95 Room Air 02/23/23 06:00 78
[2023-02-23] MEDS: ACETAMINOPHEN 325 MG TAB PO PRN (14:44)
[2023-02-23] MEDS ORDERED: CEFDINIR 300 MG CAP PO SCH (17:00)
[2023-02-23] MEDS: SODIUM CHLORIDE 0.9% 1,000 ML IV SCH (18:02)
[2023-02-23] MEDS: CEFDINIR 300 MG CAP PO SCH (18:02)
[2023-02-23] MEDS: guaiFENesin SUGAR FREE 200 MG/10 ML UDC PO PRN (20:13)
[2023-02-23] MEDS: LORazepam 0.5 MG TAB PO PRN (20:13)
[2023-02-24] MEDS: CEFDINIR 300 MG CAP PO SCH ×2 (05:46→17:09)
[2023-02-24] MEDS: SODIUM CHLORIDE 0.9% 1,000 ML IV SCH (05:47)
[2023-02-24 07:26] LABS: Basophils # (auto) 0.01 K/uL (0.00-0.20); Basophils % (auto) 0.2 %; Hematocrit (blood only) 22.2 % (37.0-47.0); Hemoglobin 7.3 g/dl (12.0-16.0); Immature Granulocytes # (auto) 0.07 K/uL (0.01-0.20); Immature Granulocytes % (auto) 1.2 %; Lymphocytes # (auto) 0.83 K/uL (1.20-3.40); Lymphocytes % (auto) 14.5 %; Mean Corpuscular Hemoglobin 29.6 pg (25.0-34.0); Mean Corpuscular Hgb Conc 32.9 g/dL (32.0-36.0); Mean Corpuscular Volume 89.9 fL (80.0-100.0); Mean Platelet Volume 10.5 fL (9.4-12.4); Monocytes # (auto) 0.66 K/uL (0.11-0.59); Monocytes % (auto) 11.5 %; Neutrophils # (auto) 4.16 K/uL (1.40-6.50); Neutrophils % (auto) 72.6 %; Nucleated RBC # (auto) 0.03 K/uL (0.00-0.12); Nucleated RBC % (auto) 0.5 %; Platelet Count 224 K/uL (130-400); RDW Coefficient of Variation 14.3 % (11.5-14.5); RDW Standard Deviation 47.1 fL (36.4-46.3); Red Blood Count 2.47 M/uL (4.20-5.40); White Blood Count 5.73 K/ul (4.8-10.8)
[2023-02-24 07:54] LABS: Echinocytes 1+; Ovalocytes 1+
[2023-02-24 07:58] LABS: Albumin Globulin Ratio 0.9 (0.9-2); Albumin Level 2.7 gm/dl (3.4-5.0); BUN Creatinine Ratio 18.6 (10-20); Bilirubin,Total 0.5 mg/dl (0.2-1.0); Creatinine Clr Calc Pharmacy 32.9 ml/min; Est GFR (African American) 56.9 ml/min; Est GFR (Non-African American) 49.1 ml/min; Globulin 2.9 gm/dl (2.5-4.0); Magnesium 1.5 mg/dl (1.7-2.4); Phosphorus 2.4 mg/dl (2.5-4.9); Potassium 3.8 mmol/L (3.5-5.1); Total Protein 5.6 gm/dl (6.0-8.3)
[2023-02-24] MEDS: INSULIN ASPART PER UNIT CHARGE SC SCH ×4 (08:02→21:47)
[2023-02-24] MEDS: ATORVASTATIN 40 MG TAB PO SCH (08:03)
[2023-02-24] MEDS: METOPROLOL SUCC 50MG EXT REL TAB PO SCH ×2 (08:04→21:53)
[2023-02-24] MEDS: PANTOprazole 40 MG TAB PO SCH (08:04)
[2023-02-24] MEDS: LANTUS PER UNIT CHARGE SQ SCH ×2 (08:05→21:48)
[2023-02-24 08:09] LABS: INR 1.8 (0.9-1.1); Prothrombin Time 19.1 Seconds (9.0-12.0)
--- NOTE | 2023-02-24 10:26 | Hospitalist Progress Note ---
Date of Service February 24, 2023 Assessment & Plan (1) Acute GI bleeding: (2) Atrial fibrillation: (3) Hypertension: (4) JOLIE (acute kidney injury): (5) Hypomagnesemia: (6) Supratherapeutic INR: (7) Influenza A: (8) Melena: (9) Diarrhea: (10) Hyperlipidemia: (11) Diabetes mellitus type 2 in obese: Plan Pt is an 87yoF with PMhx significant for a fib, HTN, HLD, DMII admitted with an acute GI Bleed in the setting of a supratherapeutic INR. GIB: Lb melena;black tarry stools x 3 days FOBT + Hypotensive initially in ED; received 2 LNSB; serum Hgb 9.7 on admission; baseline 11.1 Hemoglobin currently 7.3 Pt was switched from drip to po pantoprazole on 02/23, drip re-started on 02/24 GI consult- appreciate recs -Dr Hodge recommending against endoscopy due to risk given pt's age Advancing diet Continue monitor H&H, transfuse as needed If hgb drops below 7 requiring transfusion, consider re-consult to GI. Supratherapeutic INR: On admission, INR 7.7; Vitamin K 10 mg IV administered in ED Repeat INR 1.2 at that time Continue to hold Coumadin Trend INR, consider lovenox bridge once h/h stable and bleeding resolved INR currently trending back up even with warfarin held, currently 1.8 JOLIE: serum creatinine 2.10 on admission; baseline 1.2-1.3 Received IV fluids Continue to hold lisinopril Improving Monitor with AM labs Influenza A +: Tested positive for influenza A Rest of Biofire negative Sputum Cx growing H flu, on cefdinir Continue supportive therapy Saturating well on room air Ventricular Tachycardia: During evaluation in the room; 8 beat run VT asymptomatic Will keep potassium above 4 and magnesium above 2 Continue to monitor Hypomg+ Serum Mg+ 1.6 on admission, replaced with 1 G Mg+ in ED Continue to monitor magnesium level Abnormal UA UA positive for nitrite, leukocyte and bacteria Urine culture grew multiple organism (possible contamination) On Cefepime- transitioned to rocephin on 02/23 Continue to monitor HTN: Hold amlodipine in setting of acute GI Bleed with hypotension Hold Lisinopril due to JOLIE Takes Lasix; hold temporarily to assist with maintaining BP with active bleed Continue to monitor BP Diabetes Mellitus type 2: Most recent hemoglobin A1c 8.5 Hold glipizide and Metformin while inpt Continue insulin sliding scale and Lantus Monitor blood sugar HLD: Continue atorvastatin Diet: HH/DMII Code Status: Full Code VTE prophylaxis: hold Coumadin due to GI bleed and supratherapeutic INR Dispo: PT/OT ordered, per CM pt to go home Admission and Anticipated Discharge Date Admission Date: February 20, 2023 Subjective Pt seen in the AM. Discussion of current lab levels. Notified by nursing that pt's daughter was asking about nephrology seeing pt- nephrology consult placed. Review of Systems Review of Systems: All systems reviewed & are unremarkable except as noted in Subjective Physical Exam Physical Exam: General: Alert, oriented. No acute distress Skin: No noted rashes or bruises Psych: Appropriate mood and affect Neuro: No gross deficits while laying in bed HEENT: NC/AT Chest: Nontender to palpation. CV: RRR Resp: Breath sounds with scattered wheezes bilaterally, no increased effort of breathing. Abdomen:Soft, nontender, nondistended. Extremities: No edema in lower extremities bilaterally. Results & Data Results & Data Vital Signs (Past 12 Hours) Vital Signs Temp Pulse Pulse Resp BP Pulse Ox O2 Del Method 02/24/23 08:41 Room Air 02/24/23 07:04 36.8 C 86 18 145/70 H 96 Room Air 02/24/23 03:20 36.8 C 81 17 138/67 97 Room Air 02/23/23 23:03 36.6 C 76 18 137/69 98 Room Air 02/23/23 23:01 83
[2023-02-24] MEDS ORDERED: POTASSIUM PHOS 3 MMOL/1 ML INFUSION IV STA (10:58)
[2023-02-24] MEDS ORDERED: POTASSIUM PHOSPHATE 15 MMOL in SODIUM CHLORIDE 0.9% 250 ML IV ONE (11:45)
[2023-02-24] MEDS: MAGNESIUM SULFATE / D5W 1 GM/100 ML BAG IV SCH ×2 (11:52→13:50)
[2023-02-24] MEDS: POT PHOSPHATE MONOBASIC W/ SOD TAB PO SCH ×3 (13:06→21:50)
[2023-02-24] MEDS: guaiFENesin SUGAR FREE 200 MG/10 ML UDC PO PRN (17:11)
--- NOTE | 2023-02-24 17:30 | Nephrology Consultation ---
Date of Consultation February 24, 2023 Assessment & Plan (1) History of acute renal failure: now resolved; stage 1 nonoliguric. prerenal. (2) CKD (chronic kidney disease) stage 3, GFR 30-59 ml/min: baseline creatinine 1.2-1.4. back to baseline. -continue to hold metformin, lisinopril until hospital d/c but resume these day after d/c -w/ recent uncontrolled HTN as OP > so do recommend renal f/u about a month after d/c to reeval BP -continue to avoid IV contrast as much as feasible Will sign off NEPHRO D/C RECS -as above regarding metformin, ACEI -hospital d/c appt w/ me in 3-4 wks after hospital d/c to reeval BP; nephro RN to order bmp to be done before or at visit History of Present Illness Reason for Consultation: CKD f/u Requesting Physician: Dr Hussein Attending Physician: Floir Hussein MD History of Present Illness 87 y/o F whom I'm asked to see for CKD follow up was admitted 02/20 w/ 3 days of melena and found to have acute GI bleed in setting of supratherapeutic INR. 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 Creatinine had been 1.1-1.3 since at least 2015. Follows w/ chiropractor for back; chronic L knee pain as well. Also w/ frequent UTI sx. Her baseline creatinine is 1.2-1.4. when I saw her in CKD clinic in November 2022, SBP were running 150s. presented here w/ creatinine 2.1, relative hypotension. Creatinine has improved every day and today is 1.0. Her OP lisinopril has been on hold GI evaluated pt and deems endoscopy riskier than potential benefits unless hgb drops below 7. Pt back on PPI gtt today after hgb dropped to 7.3. She tells me she feels relatively well> her main concern is constipation. denies voiding concerns, no sob. w/ constipation states she feels unable to take po and has left her dinner untouched. no edema, stable chronic hyperesthesia BLE. Allergies Allergy/AdvReac Type Severity Reaction Status Date / Time tramadol Allergy Severe HALLUCINATIONS-PER Verified 02/20/23 16:07 GMG bacitracin Allergy Mild CAUSED EYE Verified 02/20/23 16:07 PROBLEMS neomycin Allergy Mild Rash Verified 02/20/23 16:07 polymyxin B Allergy Mild CAUSED EYE Verified 02/20/23 16:07 PROBLEMS Aminoglycosides Allergy Unknown Unknown Verified 02/20/23 16:07 aspirin AdvReac Severe HX OF GI Verified 02/20/23 16:07 BLEED ibuprofen AdvReac Severe HX OF GI Verified 02/20/23 16:07 BLEED naproxen [From Aleve] AdvReac Severe HX OF GI Verified 02/20/23 16:07 BLEED NSAIDS (Non-Steroidal AdvReac Severe HX OF GI Verified 02/20/23 16:07 Anti-Inflamma BLEED doxycycline AdvReac Intermediate HALLUCINATI Verified 02/20/23 16:07 ONS nitrofurantoin AdvReac Intermediate HEADACHES Verified 02/20/23 16:07 [From Macrobid] Sulfa (Sulfonamide AdvReac Intermediate NAUSEA, Verified 02/20/23 16:07 Antibiotics) VOMITING, BAD HEADACHE triamterene AdvReac Intermediate ULCERS Verified 02/20/23 16:07 Home Medications Medication Instructions Recorded Confirmed Type cholecalciferol (vitamin D3) 25 1,000 unit PO DAILY 12/29/18 02/20/23 History mcg (1,000 unit) capsule (Vitamin D3) cyanocobalamin (vitamin B-12) 1,000 mcg PO DAILY 12/29/18 02/20/23 History 1,000 mcg tablet (Vitamin B-12) glipizide 2.5 mg tablet, extended 2.5 mg PO DAILY 12/29/18 02/20/23 History release 24 hr (Glucotrol XL) lorazepam 0.5 mg tablet (Ativan) 0.5 mg PO BID PRN Anxiety 12/29/18 02/20/23 History metoprolol succinate 100 mg See Rx Instructions .Route .COMPLEX 12/29/18 02/20/23 History tablet,extended release 24 hr (Toprol XL) polyethylene glycol 3350 17 17 g PO DAILY PRN Constipation 12/29/18 02/20/23 History gram/dose oral powder (Miralax) triamcinolone acetonide 0.1 % 1 applic topical BID PRN Itching 12/29/18 02/20/23 History topical cream (Triderm) amlodipine 2.5 mg tablet 2.5 mg PO QAM 02/20/23 02/20/23 History atorvastatin 80 mg tablet 80 mg PO QAM 02/20/23 02/20/23 History docusate sodium 100 mg capsule 100 mg PO DAILY 02/20/23 02/20/23 History hydrocodone 5 mg-acetaminophen 325 1 tab PO BID PRN Pain, Severe 02/20/23 02/20/23 History mg tablet lisinopril 20 mg tablet 20 mg PO DAILY 02/20/23 02/20/23 History metformin 500 mg tablet 500 mg PO BIDM 02/20/23 02/20/23 History warfarin 2 mg tablet See Rx Instructions .Route .COMPLEX 02/20/23 02/20/23 History cefdinir 300 mg capsule 300 mg PO BID #16 caps 02/23/23 Rx pantoprazole 40 mg tablet,delayed 40 mg PO BID #60 tabs 02/23/23 Rx release Patient History Medical History (Updated 02/24/23 @ 17:29 by Carlene Kendrick MD, PhD) CKD (chronic kidney disease) stage 3, GFR 30-59 ml/min Diabetes mellitus type 2 in obese History of breast cancer Hyperlipidemia Hypertension Atrial fibrillation Surgical History Bilateral cataracts Family History Other No significant family history Social History Smoking Status: Never smoker Hx Alcohol Use: Yes Alcohol type: wine Hx Substance Use: No Preferred Language: German Communication Ability: Effective Masonry Inspector Required: No Beliefs That Will Affect Care: None Current Living Situation: Alone current occupational status: retired Other Information That Helps Us Care for You: No Feels Safe at Home: Yes Safety Concerns: Feels Safe At This Time Assistive Devices: None, Cane and Walker Review of Systems 2 Review of Systems: All systems reviewed & are unremarkable except as noted in HPI & below Physical Exam 2 Constitutional: well developed, well nourished, + frail appearing and cooperative; no acute distress Eyes: EOM intact bilaterally ENMT: Ears: no external ear abnormality Nose: no external nose abnormality Mouth: + dry oral mucous membranes Neck: no nuchal rigidity Respiratory: normal respiratory effort Auscultation: + diminished lung sounds and + crackles (BL bases R>L) Cardiovascular: RRR, no murmur, no edema Gastrointestinal (Abdomen): Inspection/Auscultation: normal bowel sounds P ercussion/Palpation: abdomen soft; abdomen nontender Musculoskeletal: Extremities: strength 5/5 throughout Skin: no rashes, warm and dry Neurologic: hull, fluent speech, no tremor Psychiatric: Orientation: alert, oriented to person, oriented to place and cooperative Results & Data Vital Signs (Past 12 Hours) Vital Signs Temp Pulse Pulse Resp BP Pulse Ox O2 Del Method 02/24/23 15:24 36.7 C 72 18 146/69 H 96 Room Air 02/24/23 10:21 37.0 C 79 16 118/59 L 96 Room Air 02/24/23 08:41 Room Air 02/24/23 07:27 90 02/24/23 07:04 36.8 C 86 18 145/70 H 96 Room Air Laboratory Results 02/24/23 06:40 02/24/23 06:40 Diagnostic Findings renal u/s Right kidney: 9.1 cm. No hydronephrosis. Echogenic cortex with moderate cortical thinning Left kidney: 10.2 cm. No hydronephrosis. Echogenic cortex with moderate cortical thinning. A few cysts with the largest measuring 1.5 cm Bladder: Bladder is decompressed and not well visualized. No definite bladder wall thickening. The ureteral jets are not identified during the examination. IMPRESSION: 1. No hydronephrosis. 2. Echogenic kidneys with moderate cortical thinning. This suggests medical renal disease.
[2023-02-24] MEDS: PANTOprazole 40 MG in DEXTROSE 5% MINI-B 100 ML IV SCH ×2 (17:52→23:04)
[2023-02-24] MEDS: MAGNESIUM OXIDE 400 MG TAB PO SCH (21:50)
[2023-02-24] MEDS: LORazepam 0.5 MG TAB PO PRN (22:56)
[2023-02-25] MEDS: PANTOprazole 40 MG in DEXTROSE 5% MINI-B 100 ML IV SCH ×4 (03:58→19:53)
[2023-02-25] MEDS: CEFDINIR 300 MG CAP PO SCH ×2 (04:05→17:43)
[2023-02-25 06:28] LABS: Basophils # (auto) 0.02 K/uL (0.00-0.20); Basophils % (auto) 0.3 %; Hematocrit (blood only) 23.6 % (37.0-47.0); Hemoglobin 7.8 g/dl (12.0-16.0); Immature Granulocytes # (auto) 0.12 K/uL (0.01-0.20); Lymphocytes # (auto) 1.02 K/uL (1.20-3.40); Lymphocytes % (auto) 17.1 %; Mean Corpuscular Hemoglobin 29.4 pg (25.0-34.0); Mean Corpuscular Hgb Conc 33.1 g/dL (32.0-36.0); Mean Corpuscular Volume 89.1 fL (80.0-100.0); Mean Platelet Volume 10.6 fL (9.4-12.4); Monocytes # (auto) 0.63 K/uL (0.11-0.59); Monocytes % (auto) 10.6 %; Neutrophils # (auto) 4.17 K/uL (1.40-6.50); Nucleated RBC # (auto) 0.03 K/uL (0.00-0.12); Nucleated RBC % (auto) 0.5 %; Platelet Count 241 K/uL (130-400); RDW Coefficient of Variation 14.4 % (11.5-14.5); RDW Standard Deviation 46.2 fL (36.4-46.3); Red Blood Count 2.65 M/uL (4.20-5.40); White Blood Count 5.96 K/ul (4.8-10.8)
[2023-02-25 06:54] LABS: INR 1.8 (0.9-1.1); Prothrombin Time 18.8 Seconds (9.0-12.0)
[2023-02-25 07:27] LABS: Echinocytes 1+; Polychromasia 1+
[2023-02-25 07:35] LABS: Albumin Globulin Ratio 0.9 (0.9-2); Albumin Level 2.8 gm/dl (3.4-5.0); Bilirubin,Total 0.7 mg/dl (0.2-1.0); Calcium 7.9 mg/dl (8.6-10.3); Creatinine Clr Calc Pharmacy 33.1 ml/min; Est GFR (African American) 58.3 ml/min; Est GFR (Non-African American) 50.3 ml/min; Globulin 3.1 gm/dl (2.5-4.0); Magnesium 1.8 mg/dl (1.7-2.4); Phosphorus 3.5 mg/dl (2.5-4.9); Potassium 3.8 mmol/L (3.5-5.1); Total Protein 5.9 gm/dl (6.0-8.3)
[2023-02-25] MEDS: LANTUS PER UNIT CHARGE SQ SCH ×2 (08:04→20:10)
[2023-02-25] MEDS: INSULIN ASPART PER UNIT CHARGE SC SCH ×4 (08:04→20:09)
[2023-02-25] MEDS: ATORVASTATIN 40 MG TAB PO SCH (08:06)
[2023-02-25] MEDS: MAGNESIUM OXIDE 400 MG TAB PO SCH ×2 (08:07→19:57)
[2023-02-25] MEDS: POT PHOSPHATE MONOBASIC W/ SOD TAB PO SCH ×4 (08:08→19:58)
[2023-02-25] MEDS: METOPROLOL SUCC 50MG EXT REL TAB PO SCH ×2 (08:08→19:58)
[2023-02-25] MEDS: CALCIUM CARBONATE 1250MG TAB PO SCH ×2 (10:07→19:57)
[2023-02-25] MEDS ORDERED: HYDROCORTISONE ACETATE 25 MG SUPP PR PRN (13:18)
--- NOTE | 2023-02-25 13:54 | Hospitalist Progress Note ---
Date of Service February 25, 2023 Assessment & Plan (1) Acute GI bleeding: (2) Atrial fibrillation: (3) Hypertension: (4) JOLIE (acute kidney injury): (5) Hypomagnesemia: (6) Supratherapeutic INR: (7) Influenza A: (8) Melena: (9) Diarrhea: (10) Hyperlipidemia: (11) Diabetes mellitus type 2 in obese: Plan Pt is an 87yoF with PMhx significant for a fib, HTN, HLD, DMII admitted with an acute GI Bleed in the setting of a supratherapeutic INR. GIB: Lb melena;black tarry stools x 3 days FOBT + Hypotensive initially in ED; received 2 LNSB; serum Hgb 9.7 on admission; baseline 11.1 Hemoglobin currently 7.3 Pt was switched from drip to po pantoprazole on 02/23, drip re-started on 02/24 GI consult- appreciate recs -Dr Hodge recommending against endoscopy due to risk given pt's age Advancing diet Continue monitor H&H, transfuse as needed 02/25- pt back on ppi drip, multiple episodes of dark stool today. GI re- consulted, discussion with pt and son, agreeable and acceptable of scope risks. GI notified. Advised procedure will take place on 02/27, clear liquid diet and prep before. Continue to monitor H/H and transfuse as needed until procedure on Monday. Supratherapeutic INR: On admission, INR 7.7; Vitamin K 10 mg IV administered in ED Repeat INR 1.2 at that time Continue to hold Coumadin Trend INR, consider lovenox bridge once h/h stable and bleeding resolved INR currently trending back up even with warfarin held, currently 1.8 JOLIE: serum creatinine 2.10 on admission; baseline 1.2-1.3 Received IV fluids Continue to hold lisinopril Improving Monitor with AM labs Influenza A +: Tested positive for influenza A Rest of Biofire negative Sputum Cx growing H flu, on cefdinir Continue supportive therapy Saturating well on room air Ventricular Tachycardia: During evaluation in the room; 8 beat run VT asymptomatic Will keep potassium above 4 and magnesium above 2 Continue to monitor Hypomg+ Serum Mg+ 1.6 on admission, replaced with 1 G Mg+ in ED Continue to monitor magnesium level Abnormal UA UA positive for nitrite, leukocyte and bacteria Urine culture grew multiple organism (possible contamination) On Cefepime- transitioned to rocephin on 02/23 Continue to monitor HTN: Hold amlodipine in setting of acute GI Bleed with hypotension Hold Lisinopril due to JOLIE Takes Lasix; hold temporarily to assist with maintaining BP with active bleed Continue to monitor BP Diabetes Mellitus type 2: Most recent hemoglobin A1c 8.5 Hold glipizide and Metformin while inpt Continue insulin sliding scale and Lantus Monitor blood sugar HLD: Continue atorvastatin Diet: HH/DMII Code Status: Full Code VTE prophylaxis: hold Coumadin due to GI bleed and supratherapeutic INR Dispo: PT/OT ordered, per CM pt to go home Admission and Anticipated Discharge Date Admission Date: February 20, 2023 Subjective Pt seen multiple times today. Initially in the AM, was having dark stools, multiple episodes. Discussed with son and pt need to have EGD/colonoscopy. Later present at bedside and discussed further with son and pt. Agreeable to having scope, understanding and acceptable of risk. GI, Dr Sandhu notified. Review of Systems Review of Systems: All systems reviewed & are unremarkable except as noted in Subjective Physical Exam Physical Exam: General: Alert, oriented. No acute distress Skin: No noted rashes or bruises Psych: Appropriate mood and affect Neuro: No gross deficits while laying in bed HEENT: NC/AT Chest: Nontender to palpation. CV: RRR Resp: Breath sounds with scattered wheezes bilaterally, no increased effort of breathing. Abdomen:Soft, nontender, nondistended. Extremities: No edema in lower extremities bilaterally. Results & Data Results & Data Vital Signs (Past 12 Hours) Vital Signs Temp Pulse Pulse Pulse Resp BP Pulse Ox 02/25/23 11:22 36.6 C 89 16 106/62 97 02/25/23 08:02 36.7 C 87 128/77 96 02/25/23 07:54 92 H 02/25/23 07:38 02/25/23 03:29 36.7 C 87 18 128/65 93 O2 Del Method 02/25/23 11:22 Room Air 02/25/23 08:02 Room Air 02/25/23 07:54 02/25/23 07:38 Room Air 02/25/23 03:29 Room Air
[2023-02-25] MEDS: ACETAMINOPHEN 325 MG TAB PO PRN (17:40)
[2023-02-26] MEDS ORDERED: Nursing to Pharmacy Communication SCH (00:30)
[2023-02-26] MEDS: PANTOprazole 40 MG in DEXTROSE 5% MINI-B 100 ML IV SCH ×5 (01:56→22:07)
[2023-02-26] MEDS: CEFDINIR 300 MG CAP PO SCH ×2 (05:39→16:47)
[2023-02-26 06:49] LABS: Basophils # (auto) 0.01 K/uL (0.00-0.20); Basophils % (auto) 0.2 %; Hematocrit (blood only) 22.4 % (37.0-47.0); Hemoglobin 7.1 g/dl (12.0-16.0); Immature Granulocytes % (auto) 1.9 %; Lymphocytes # (auto) 0.66 K/uL (1.20-3.40); Lymphocytes % (auto) 12.5 %; Mean Corpuscular Hemoglobin 28.6 pg (25.0-34.0); Mean Corpuscular Hgb Conc 31.7 g/dL (32.0-36.0); Mean Corpuscular Volume 90.3 fL (80.0-100.0); Mean Platelet Volume 10.8 fL (9.4-12.4); Monocytes # (auto) 0.54 K/uL (0.11-0.59); Monocytes % (auto) 10.2 %; Neutrophils # (auto) 3.96 K/uL (1.40-6.50); Neutrophils % (auto) 75.2 %; Nucleated RBC # (auto) 0.04 K/uL (0.00-0.12); Nucleated RBC % (auto) 0.8 %; Platelet Count 232 K/uL (130-400); RDW Coefficient of Variation 14.8 % (11.5-14.5); RDW Standard Deviation 48.3 fL (36.4-46.3); Red Blood Count 2.48 M/uL (4.20-5.40); White Blood Count 5.27 K/ul (4.8-10.8)
[2023-02-26 07:19] LABS: Albumin Globulin Ratio 0.9 (0.9-2); Albumin Level 2.6 gm/dl (3.4-5.0); BUN Creatinine Ratio 12.5 (10-20); Bilirubin,Total 0.7 mg/dl (0.2-1.0); Calcium 7.8 mg/dl (8.6-10.3); Creatinine Clr Calc Pharmacy 34.5 ml/min; Est GFR (African American) 61.2 ml/min; Est GFR (Non-African American) 52.8 ml/min; Globulin 2.9 gm/dl (2.5-4.0); Magnesium 1.7 mg/dl (1.7-2.4); Potassium 3.3 mmol/L (3.5-5.1); Total Protein 5.5 gm/dl (6.0-8.3)
[2023-02-26 07:24] LABS: INR 1.8 (0.9-1.1)
[2023-02-26 07:39] LABS: Echinocytes 1+; Polychromasia 1+
--- NOTE | 2023-02-26 08:18 | Gastroenterology Progress Note ---
Date of Service February 26, 2023 Assessment & Plan (1) Acute GI bleeding: Plan: Despite cessation of anticoagulation she continues to bleed--although INR still 1.8. Will plan EGD and colonoscopy for tomorrow by Dr. Romo Admission and Anticipated Discharge Date Admission Date: February 20, 2023 Subjective Asked to get back involved. Has persistent bleeding both dark and red preventing her from being discharged. She and her family have requested evaluation with EGD and colonoscopy Physical Exam Physical Exam: She looks well Constitutional: WD/WN, vitals as above Results & Data Vital Signs (Past 12 Hours) Vital Signs Temp Pulse Pulse Resp BP Pulse Ox O2 Del Method 02/26/23 07:42 36.6 C 78 18 147/76 H 95 Room Air 02/26/23 07:38 89 02/26/23 07:26 Room Air 02/26/23 03:21 36.6 C 85 20 123/64 94 Room Air 02/25/23 22:32 36.7 C 67 20 114/61 95 Room Air Laboratory Results 02/26/23 02/26/23 02/25/23 Range/Units 07:10 06:05 20:00 WBC 5.27 (4.8-10.8) K/ul RBC 2.48 L (4.20-5.40) M/uL Hgb 7.1 L (12.0-16.0) g/dl Hct 22.4 L (37.0-47.0) % MCV 90.3 (80.0-100.0) fL MCH 28.6 (25.0-34.0) pg MCHC 31.7 L (32.0-36.0) g/dL RDW Std Deviation 48.3 H (36.4-46.3) fL RDW Coeff of Jareth 14.8 H (11.5-14.5) % Plt Count 232 (130-400) K/uL MPV 10.8 (9.4-12.4) fL Immature Gran % (Auto) 1.9 % Neut % (Auto) 75.2 % Lymph % (Auto) 12.5 % Mathews % (Auto) 10.2 % Eos % (Auto) 0.0 % Baso % (Auto) 0.2 % Neut # (Auto) 3.96 (1.40-6.50) K/uL Lymph # (Auto) 0.66 L (1.20-3.40) K/uL Mathews # (Auto) 0.54 (0.11-0.59) K/uL Eos # (Auto) 0.00 (0.00-0.50) K/uL Baso # (Auto) 0.01 (0.00-0.20) K/uL Immature Gran # (Auto) 0.10 (0.01-0.20) K/uL Absolute Nucleated RBC 0.04 (0.00-0.12) K/uL Nucleated RBC % (auto) 0.8 % Polychromasia 1+ Echinocytes 1+ PT 19.0 H (9.0-12.0) Seconds INR 1.8 H (0.9-1.1) Sodium 139 (136-145) mmol/L Potassium 3.3 L (3.5-5.1) mmol/L Chloride 106 (98-107) mmol/L Carbon Dioxide 24 (21-32) mmol/L Anion Gap 9 (3-11) BUN 12 (6-23) mg/dl Creatinine 0.96 (0.6-1.2) mg/dl Est Cr Clr Drug Dosing 34.5 ml/min Est GFR ( Amer) 61.2 ml/min Est GFR (Non-Af Amer) 52.8 ml/min BUN/Creatinine Ratio 12.5 (10-20) Glucose 123 H (70-99(Fasting)) mg/dl POC Glucose 136 H 161 H (70-99) mg/dl Calcium 7.8 L (8.6-10.3) mg/dl Ionized Calcium 1.08 L (1.12-1.32) mmol/L Phosphorus 4.0 (2.5-4.9) mg/dl Magnesium 1.7 (1.7-2.4) mg/dl Total Bilirubin 0.7 (0.2-1.0) mg/dl AST 17 (13-39) U/L ALT 18 (7-52) U/L Alkaline Phosphatase 53 (34-104) U/L Total Protein 5.5 L (6.0-8.3) gm/dl Albumin 2.6 L (3.4-5.0) gm/dl Globulin 2.9 (2.5-4.0) gm/dl Albumin/Globulin Ratio 0.9 (0.9-2) 02/25/23 02/25/23 Range/Units 16:20 11:27 WBC (4.8-10.8) K/ul RBC (4.20-5.40) M/uL Hgb (12.0-16.0) g/dl Hct (37.0-47.0) % MCV (80.0-100.0) fL MCH (25.0-34.0) pg MCHC (32.0-36.0) g/dL RDW Std Deviation (36.4-46.3) fL RDW Coeff of Jareth (11.5-14.5) % Plt Count (130-400) K/uL MPV (9.4-12.4) fL Immature Gran % (Auto) % Neut % (Auto) % Lymph % (Auto) % Mathews % (Auto) % Eos % (Auto) % Baso % (Auto) % Neut # (Auto) (1.40-6.50) K/uL Lymph # (Auto) (1.20-3.40) K/uL Mathews # (Auto) (0.11-0.59) K/uL Eos # (Auto) (0.00-0.50) K/uL Baso # (Auto) (0.00-0.20) K/uL Immature Gran # (Auto) (0.01-0.20) K/uL Absolute Nucleated RBC (0.00-0.12) K/uL Nucleated RBC % (auto) % Polychromasia Echinocytes PT (9.0-12.0) Seconds INR (0.9-1.1) Sodium (136-145) mmol/L Potassium (3.5-5.1) mmol/L Chloride (98-107) mmol/L Carbon Dioxide (21-32) mmol/L Anion Gap (3-11) BUN (6-23) mg/dl Creatinine (0.6-1.2) mg/dl Est Cr Clr Drug Dosing ml/min Est GFR ( Amer) ml/min Est GFR (Non-Af Amer) ml/min BUN/Creatinine Ratio (10-20) Glucose (70-99(Fasting)) mg/dl POC Glucose 171 H 149 H (70-99) mg/dl Calcium (8.6-10.3) mg/dl Ionized Calcium (1.12-1.32) mmol/L Phosphorus (2.5-4.9) mg/dl Magnesium (1.7-2.4) mg/dl Total Bilirubin (0.2-1.0) mg/dl AST (13-39) U/L ALT (7-52) U/L Alkaline Phosphatase (34-104) U/L Total Protein (6.0-8.3) gm/dl Albumin (3.4-5.0) gm/dl Globulin (2.5-4.0) gm/dl Albumin/Globulin Ratio (0.9-2)
[2023-02-26] MEDS: INSULIN ASPART PER UNIT CHARGE SC SCH ×4 (08:40→20:35)
[2023-02-26] MEDS: METOPROLOL SUCC 50MG EXT REL TAB PO SCH ×2 (09:20→19:51)
[2023-02-26] MEDS: CALCIUM CARBONATE 1250MG TAB PO SCH ×2 (09:20→19:51)
[2023-02-26] MEDS: ATORVASTATIN 40 MG TAB PO SCH (09:20)
[2023-02-26] MEDS: LANTUS PER UNIT CHARGE SQ SCH ×2 (09:24→20:35)
[2023-02-26] MEDS: POT PHOSPHATE MONOBASIC W/ SOD TAB PO SCH ×4 (09:25→19:51)
[2023-02-26] MEDS: MAGNESIUM OXIDE 400 MG TAB PO SCH ×2 (09:25→19:51)
[2023-02-26] MEDS ORDERED: POTASSIUM CHLORIDE CRTAB 20 MEQ TABCR PO STA (09:35)
--- NOTE | 2023-02-26 10:56 | Hospitalist Progress Note ---
Date of Service February 26, 2023 Assessment & Plan (1) Acute GI bleeding: (2) Atrial fibrillation: (3) Hypertension: (4) JOLIE (acute kidney injury): (5) Hypomagnesemia: (6) Supratherapeutic INR: (7) Influenza A: (8) Melena: (9) Diarrhea: (10) Hyperlipidemia: (11) Diabetes mellitus type 2 in obese: Plan Pt is an 87yoF with PMhx significant for a fib, HTN, HLD, DMII admitted with an acute GI Bleed in the setting of a supratherapeutic INR. GIB: Lb melena;black tarry stools x 3 days FOBT + Hypotensive initially in ED; received 2 LNSB; serum Hgb 9.7 on admission; baseline 11.1 Hemoglobin currently 7.3 Pt was switched from drip to po pantoprazole on 02/23, drip re-started on 02/24 GI consult- appreciate recs -Dr Hodge recommending against endoscopy due to risk given pt's age Advancing diet Continue monitor H&H, transfuse as needed 02/25- pt back on ppi drip, multiple episodes of dark stool today. GI re- consulted, discussion with pt and son, agreeable and acceptable of scope risks. GI notified. Advised procedure will take place on 02/27, clear liquid diet and prep before. Continue to monitor H/H and transfuse as needed until procedure on Monday. 02/26- hgb dropped to 7.1 from 7.8, continue ppi drip. Procedure in AM, NPO after midnight. Transfuse as needed for hgb<7 Supratherapeutic INR: On admission, INR 7.7; Vitamin K 10 mg IV administered in ED Repeat INR 1.2 at that time Continue to hold Coumadin Trend INR, consider lovenox bridge once h/h stable and bleeding resolved INR currently trending back up even with warfarin held, currently 1.8 JOLIE: serum creatinine 2.10 on admission; baseline 1.2-1.3 Received IV fluids Continue to hold lisinopril Currently within normal limits Monitor with AM labs Influenza A +: Tested positive for influenza A Rest of Biofire negative Sputum Cx growing H flu, on cefdinir Continue supportive therapy Saturating well on room air Ventricular Tachycardia: During evaluation in the room; 8 beat run VT asymptomatic Will keep potassium above 4 and magnesium above 2 Continue to monitor Hypomg+ Serum Mg+ 1.6 on admission, replaced with 1 G Mg+ in ED Continue to monitor magnesium level Abnormal UA UA positive for nitrite, leukocyte and bacteria Urine culture grew multiple organism (possible contamination) On Cefepime- transitioned to rocephin on 02/23 Continue to monitor HTN: Hold amlodipine in setting of acute GI Bleed with hypotension Hold Lisinopril due to JOLIE Takes Lasix; hold temporarily to assist with maintaining BP with active bleed Continue to monitor BP Diabetes Mellitus type 2: Most recent hemoglobin A1c 8.5 Hold glipizide and Metformin while inpt Continue insulin sliding scale and Lantus Monitor blood sugar HLD: Continue atorvastatin Diet: HH/DMII Code Status: Full Code VTE prophylaxis: hold Coumadin due to GI bleed and supratherapeutic INR Dispo: PT/OT ordered, per CM pt to go home Admission and Anticipated Discharge Date Admission Date: February 20, 2023 Subjective Pt seen in the AM. Stated that she had no further BMs. Denied acute concerns at that time. Noted that GI had been in to see her. Review of Systems Review of Systems: All systems reviewed & are unremarkable except as noted in Subjective Physical Exam Physical Exam: General: Alert, oriented. No acute distress Skin: No noted rashes or bruises Psych: Appropriate mood and affect Neuro: No gross deficits while laying in bed HEENT: NC/AT Chest: Nontender to palpation. CV: RRR Resp: Breath sounds with scattered wheezes bilaterally, no increased effort of breathing. Abdomen:Soft, nontender, nondistended. Extremities: No edema in lower extremities bilaterally. Results & Data Results & Data Vital Signs (Past 12 Hours) Vital Signs Temp Pulse Pulse Resp BP Pulse Ox O2 Del Method 02/26/23 07:42 36.6 C 78 18 147/76 H 95 Room Air 02/26/23 07:38 89 02/26/23 07:26 Room Air 02/26/23 03:21 36.6 C 85 20 123/64 94 Room Air
[2023-02-26] MEDS ORDERED: bisacodyL 5 MG TABEC PO ONE (18:00)
[2023-02-26] MEDS: POLYETHYLENE (MIRALAX) 17 GM PACK PO SCH (18:43)
[2023-02-27] MEDS: PANTOprazole 40 MG in DEXTROSE 5% MINI-B 100 ML IV SCH ×3 (03:07→13:51)
[2023-02-27] MEDS: CEFDINIR 300 MG CAP PO SCH ×2 (05:08→17:29)
[2023-02-27] MEDS: POLYETHYLENE (MIRALAX) 17 GM PACK PO SCH (05:10)
[2023-02-27 07:45] LABS: Basophils # (auto) 0.01 K/uL (0.00-0.20); Basophils % (auto) 0.2 %; Hematocrit (blood only) 25.3 % (37.0-47.0); Hemoglobin 8.1 g/dl (12.0-16.0); Immature Granulocytes # (auto) 0.08 K/uL (0.01-0.20); Immature Granulocytes % (auto) 1.3 %; Lymphocytes % (auto) 16.1 %; Mean Corpuscular Hemoglobin 29.2 pg (25.0-34.0); Mean Corpuscular Volume 91.3 fL (80.0-100.0); Mean Platelet Volume 10.9 fL (9.4-12.4); Monocytes # (auto) 0.63 K/uL (0.11-0.59); Monocytes % (auto) 10.1 %; Neutrophils # (auto) 4.49 K/uL (1.40-6.50); Neutrophils % (auto) 72.3 %; Nucleated RBC # (auto) 0.02 K/uL (0.00-0.12); Nucleated RBC % (auto) 0.3 %; Platelet Count 291 K/uL (130-400); RDW Coefficient of Variation 14.6 % (11.5-14.5); Red Blood Count 2.77 M/uL (4.20-5.40); White Blood Count 6.21 K/ul (4.8-10.8)
[2023-02-27 08:08] LABS: Albumin Globulin Ratio 0.9 (0.9-2); Albumin Level 2.9 gm/dl (3.4-5.0); BUN Creatinine Ratio 10.9 (10-20); Bilirubin,Total 0.8 mg/dl (0.2-1.0); Calcium 7.9 mg/dl (8.6-10.3); Creatinine Clr Calc Pharmacy 30.1 ml/min; Est GFR (African American) 51.9 ml/min; Est GFR (Non-African American) 44.8 ml/min; Globulin 3.4 gm/dl (2.5-4.0); Magnesium 1.6 mg/dl (1.7-2.4); Phosphorus 3.5 mg/dl (2.5-4.9); Potassium 3.5 mmol/L (3.5-5.1); Total Protein 6.3 gm/dl (6.0-8.3)
[2023-02-27] MEDS ORDERED: STAT IV/IM STA (08:28)
[2023-02-27] MEDS: CALCIUM GLUCONATE 10% 1,000 MG in SODIUM CHLOR 0.9% MINI-B 50 ML IV SCH ×2 (09:08→09:21)
[2023-02-27] MEDS: INSULIN ASPART PER UNIT CHARGE SC SCH ×4 (09:13→20:59)
[2023-02-27] MEDS: ATORVASTATIN 40 MG TAB PO SCH (09:14)
[2023-02-27] MEDS: METOPROLOL SUCC 50MG EXT REL TAB PO SCH ×2 (09:15→21:07)
[2023-02-27] MEDS: MAGNESIUM OXIDE 400 MG TAB PO SCH ×2 (09:15→21:06)
[2023-02-27] MEDS: CALCIUM CARBONATE 1250MG TAB PO SCH ×2 (09:15→21:03)
[2023-02-27] MEDS: LANTUS PER UNIT CHARGE SQ SCH ×2 (09:15→21:17)
[2023-02-27] MEDS: POT PHOSPHATE MONOBASIC W/ SOD TAB PO SCH ×4 (09:16→21:08)
[2023-02-27] MEDS: MAGNESIUM SULFATE / D5W 1 GM/100 ML BAG IV SCH ×2 (09:52→13:47)
--- NOTE | 2023-02-27 10:32 | Hospitalist Progress Note ---
Date of Service February 27, 2023 Assessment & Plan (1) Acute GI bleeding: (2) Atrial fibrillation: (3) Hypertension: (4) JOLIE (acute kidney injury): (5) Hypomagnesemia: (6) Supratherapeutic INR: (7) Influenza A: (8) Melena: (9) Diarrhea: (10) Hyperlipidemia: (11) Diabetes mellitus type 2 in obese: Plan Pt is an 87yoF with PMhx significant for a fib, HTN, HLD, DMII admitted with an acute GI Bleed in the setting of a supratherapeutic INR. GIB: Lb melena;black tarry stools x 3 days FOBT + Hypotensive initially in ED; received 2 LNSB; serum Hgb 9.7 on admission; baseline 11.1 Hemoglobin currently 7.3 Pt was switched from drip to po pantoprazole on 02/23, drip re-started on 02/24 GI consult- appreciate recs -Dr Hodge recommending against endoscopy due to risk given pt's age Advancing diet Continue monitor H&H, transfuse as needed 02/25- pt back on ppi drip, multiple episodes of dark stool today. GI re- consulted, discussion with pt and son, agreeable and acceptable of scope risks. GI notified. Advised procedure will take place on 02/27, clear liquid diet and prep before. Continue to monitor H/H and transfuse as needed until procedure on Monday. 02/26- hgb dropped to 7.1 from 7.8, continue ppi drip. Procedure in AM, NPO after midnight. Transfuse as needed for hgb<7 02/27- had EGD and colonoscopy, no noted bleeding. Has internal hemorrhoids and diverticulosis, not bleeding. Case discussed with GI, bleeding could be due to small bowel AVMs which can be evaluated with a video capsule that is done outpt. Recommended stopping ppi drip. Pt transitioned to pantoprazole 40mg BID. Monitor H/H overnight, likely d/c in AM if hgb stable. Supratherapeutic INR: On admission, INR 7.7; Vitamin K 10 mg IV administered in ED Repeat INR 1.2 at that time Continue to hold Coumadin Trend INR, consider lovenox bridge once h/h stable and bleeding resolved INR currently trending back up even with warfarin held, currently 1.8 JOLIE: serum creatinine 2.10 on admission; baseline 1.2-1.3 Received IV fluids Continue to hold lisinopril Currently within normal limits Monitor with AM labs Influenza A +: Tested positive for influenza A Rest of Biofire negative Sputum Cx growing H flu, on cefdinir Continue supportive therapy Saturating well on room air Ventricular Tachycardia: During evaluation in the room; 8 beat run VT asymptomatic Will keep potassium above 4 and magnesium above 2 Continue to monitor Hypomg+ Serum Mg+ 1.6 on admission, replaced with 1 G Mg+ in ED Continue to monitor magnesium level Abnormal UA UA positive for nitrite, leukocyte and bacteria Urine culture grew multiple organism (possible contamination) On Cefepime- transitioned to rocephin on 02/23 Continue to monitor HTN: Hold amlodipine in setting of acute GI Bleed with hypotension Hold Lisinopril due to JOLIE Takes Lasix; hold temporarily to assist with maintaining BP with active bleed Continue to monitor BP Diabetes Mellitus type 2: Most recent hemoglobin A1c 8.5 Hold glipizide and Metformin while inpt Continue insulin sliding scale and Lantus Monitor blood sugar HLD: Continue atorvastatin Diet: HH/DMII Code Status: Full Code VTE prophylaxis: hold Coumadin due to GI bleed and supratherapeutic INR Dispo: PT/OT ordered, per CM pt to go home Admission and Anticipated Discharge Date Admission Date: February 20, 2023 Subjective Pt seen in the AM. Stated that she had no further BMs. Was getting ready for her procedure. Review of Systems Review of Systems: All systems reviewed & are unremarkable except as noted in Subjective Physical Exam Physical Exam: General: Alert, oriented. No acute distress Skin: No noted rashes or bruises Psych: Appropriate mood and affect Neuro: No gross deficits while laying in bed HEENT: NC/AT Chest: Nontender to palpation. CV: RRR Resp: Breath sounds with scattered wheezes bilaterally, no increased effort of breathing. Abdomen:Soft, nontender, nondistended. Extremities: No edema in lower extremities bilaterally. Results & Data Results & Data Vital Signs (Past 12 Hours) Vital Signs Temp Pulse Pulse Resp BP Pulse Ox O2 Del Method 02/27/23 08:13 36.8 C 87 18 136/72 96 Room Air 02/27/23 03:19 36.9 C 87 16 150/71 H 94 Room Air 02/26/23 23:11 36.8 C 85 20 138/71 96 Room Air 02/26/23 22:45 88 02/26/23 22:36 Room Air
[2023-02-27 11:10] LABS: INR 1.8 (0.9-1.1); Prothrombin Time 19.3 Seconds (9.0-12.0)
--- NOTE | 2023-02-27 12:10 | History & Physical Report ---
Date of Service February 27, 2023 Assessment & Plan (1) Influenza A: (2) Melena: Plan: EGD/colo today (3) Acute GI bleeding: Admission and Anticipated Discharge Date Admission Date: February 20, 2023 History of Present Illness Chief Complaint: rectal bleeding Primary Care Provider: Liliane Lobato DO Allergies Allergy/AdvReac Type Severity Reaction Status Date / Time tramadol Allergy Severe HALLUCINATIONS-PER Verified 02/20/23 16:07 GMG bacitracin Allergy Mild CAUSED EYE Verified 02/20/23 16:07 PROBLEMS neomycin Allergy Mild Rash Verified 02/20/23 16:07 polymyxin B Allergy Mild CAUSED EYE Verified 02/20/23 16:07 PROBLEMS Aminoglycosides Allergy Unknown Unknown Verified 02/20/23 16:07 aspirin AdvReac Severe HX OF GI Verified 02/20/23 16:07 BLEED ibuprofen AdvReac Severe HX OF GI Verified 02/20/23 16:07 BLEED naproxen [From Aleve] AdvReac Severe HX OF GI Verified 02/20/23 16:07 BLEED NSAIDS (Non-Steroidal AdvReac Severe HX OF GI Verified 02/20/23 16:07 Anti-Inflamma BLEED doxycycline AdvReac Intermediate HALLUCINATI Verified 02/20/23 16:07 ONS nitrofurantoin AdvReac Intermediate HEADACHES Verified 02/20/23 16:07 [From Macrobid] Sulfa (Sulfonamide AdvReac Intermediate NAUSEA, Verified 02/20/23 16:07 Antibiotics) VOMITING, BAD HEADACHE triamterene AdvReac Intermediate ULCERS Verified 02/20/23 16:07 Home Medications Medication Instructions Recorded Confirmed Type cholecalciferol (vitamin D3) 25 1,000 unit PO DAILY 12/29/18 02/20/23 History mcg (1,000 unit) capsule (Vitamin D3) cyanocobalamin (vitamin B-12) 1,000 mcg PO DAILY 12/29/18 02/20/23 History 1,000 mcg tablet (Vitamin B-12) glipizide 2.5 mg tablet, extended 2.5 mg PO DAILY 12/29/18 02/20/23 History release 24 hr (Glucotrol XL) lorazepam 0.5 mg tablet (Ativan) 0.5 mg PO BID PRN Anxiety 12/29/18 02/20/23 History metoprolol succinate 100 mg See Rx Instructions .Route .COMPLEX 12/29/18 02/20/23 History tablet,extended release 24 hr (Toprol XL) polyethylene glycol 3350 17 17 g PO DAILY PRN Constipation 12/29/18 02/20/23 History gram/dose oral powder (Miralax) triamcinolone acetonide 0.1 % 1 applic topical BID PRN Itching 12/29/18 02/20/23 History topical cream (Triderm) amlodipine 2.5 mg tablet 2.5 mg PO QAM 02/20/23 02/20/23 History atorvastatin 80 mg tablet 80 mg PO QAM 02/20/23 02/20/23 History docusate sodium 100 mg capsule 100 mg PO DAILY 02/20/23 02/20/23 History hydrocodone 5 mg-acetaminophen 325 1 tab PO BID PRN Pain, Severe 02/20/23 02/20/23 History mg tablet lisinopril 20 mg tablet 20 mg PO DAILY 02/20/23 02/20/23 History metformin 500 mg tablet 500 mg PO BIDM 02/20/23 02/20/23 History warfarin 2 mg tablet See Rx Instructions .Route .COMPLEX 02/20/23 02/20/23 History cefdinir 300 mg capsule 300 mg PO BID #16 caps 02/23/23 Rx pantoprazole 40 mg tablet,delayed 40 mg PO BID #60 tabs 02/23/23 Rx release Past Med/Surg History Medical History (Updated 02/24/23 @ 17:29 by Carlene Kendrick MD, PhD) CKD (chronic kidney disease) stage 3, GFR 30-59 ml/min Diabetes mellitus type 2 in obese History of breast cancer Hyperlipidemia Hypertension Atrial fibrillation Surgical History Bilateral cataracts Family History Other No significant family history Social History Smoking Status: Never smoker Hx Alcohol Use: Yes Alcohol type: wine Hx Substance Use: No Preferred Language: Niuean Communication Ability: Effective 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
--- NOTE | 2023-02-27 12:35 | Anesthesiology Consultation ---
Date of Service February 27, 2023 Assessment & Plan Chart Review Chart Review: Acceptable Risk for Surgery, Patient NOT seen in Pre Admission Testing and administrative assistant data entry initiated Consults Requested none ASA ASA3 Proposed Anesthesia Anesthesia Type: MAC Risk / Benefits Reviewed With: PT / POA / Parent / Guardian, Accepts Plan and Informed Consent Obtained History Surgery Operation Date: 02/27/23 18:00 Proposed Procedures p Colonoscopy EGD Dr Tineo - Alyson Tineo, DO Height/Weight Height: 5 ft Weight: 66.4 kg Allergies Allergy/AdvReac Type Severity Reaction Status Date / Time tramadol Allergy Severe HALLUCINATIONS-PER Verified 02/20/23 16:07 GMG bacitracin Allergy Mild CAUSED EYE Verified 02/20/23 16:07 PROBLEMS neomycin Allergy Mild Rash Verified 02/20/23 16:07 polymyxin B Allergy Mild CAUSED EYE Verified 02/20/23 16:07 PROBLEMS Aminoglycosides Allergy Unknown Unknown Verified 02/20/23 16:07 aspirin AdvReac Severe HX OF GI Verified 02/20/23 16:07 BLEED ibuprofen AdvReac Severe HX OF GI Verified 02/20/23 16:07 BLEED naproxen [From Aleve] AdvReac Severe HX OF GI Verified 02/20/23 16:07 BLEED NSAIDS (Non-Steroidal AdvReac Severe HX OF GI Verified 02/20/23 16:07 Anti-Inflamma BLEED doxycycline AdvReac Intermediate HALLUCINATI Verified 02/20/23 16:07 ONS nitrofurantoin AdvReac Intermediate HEADACHES Verified 02/20/23 16:07 [From Macrobid] Sulfa (Sulfonamide AdvReac Intermediate NAUSEA, Verified 02/20/23 16:07 Antibiotics) VOMITING, BAD HEADACHE triamterene AdvReac Intermediate ULCERS Verified 02/20/23 16:07 Medications Home Medications Medication Instructions Recorded Confirmed Last Taken cholecalciferol (vitamin D3) 25 1,000 unit PO DAILY 12/29/18 02/20/23 12/28/18 mcg (1,000 unit) capsule (Vitamin D3) cyanocobalamin (vitamin B-12) 1,000 mcg PO DAILY 12/29/18 02/20/23 12/28/18 1,000 mcg tablet (Vitamin B-12) glipizide 2.5 mg tablet, extended 2.5 mg PO DAILY 12/29/18 02/20/23 12/29/18 release 24 hr (Glucotrol XL) lorazepam 0.5 mg tablet (Ativan) 0.5 mg PO BID PRN Anxiety 12/29/18 02/20/23 12/28/18 metoprolol succinate 100 mg See Rx Instructions .Route .COMPLEX 12/29/18 02/20/23 12/29/18 tablet,extended release 24 hr (Toprol XL) polyethylene glycol 3350 17 17 g PO DAILY PRN Constipation 12/29/18 02/20/23 Unknown gram/dose oral powder (Miralax) triamcinolone acetonide 0.1 % 1 applic topical BID PRN Itching 12/29/18 02/20/23 Unknown topical cream (Triderm) amlodipine 2.5 mg tablet 2.5 mg PO QAM 02/20/23 02/20/23 Unknown atorvastatin 80 mg tablet 80 mg PO QAM 02/20/23 02/20/23 Unknown docusate sodium 100 mg capsule 100 mg PO DAILY 02/20/23 02/20/23 Unknown hydrocodone 5 mg-acetaminophen 325 1 tab PO BID PRN Pain, Severe 02/20/23 02/20/23 Unknown mg tablet lisinopril 20 mg tablet 20 mg PO DAILY 02/20/23 02/20/23 Unknown metformin 500 mg tablet 500 mg PO BIDM 02/20/23 02/20/23 Unknown warfarin 2 mg tablet See Rx Instructions .Route .COMPLEX 02/20/23 02/20/23 Unknown cefdinir 300 mg capsule 300 mg PO BID #16 caps 02/23/23 Unknown pantoprazole 40 mg tablet,delayed 40 mg PO BID #60 tabs 02/23/23 Unknown release Active Medications Generic Name Dose Route Start Last Admin Trade Name Freq PRN Reason Stop Dose Admin Acetaminophen 650 mg 02/20/23 16:40 02/25/23 17:40 Acetaminophen 325 Mg Tab PO 03/22/23 16:39 650 mg Q4H PRN Administration Pain or Fever Amlodipine Besylate 2.5 mg 02/21/23 09:00 02/21/23 09:22 Amlodipine Besylate 5 Mg Tab PO 03/23/23 08:59 2.5 mg QAM RAIZA Administration Atorvastatin Calcium 80 mg 02/21/23 09:00 02/27/23 09:14 Atorvastatin 40 Mg Tab PO 03/23/23 08:59 80 mg QAM RAIZA Administration Calcium Carbonate 1,250 mg 02/25/23 09:30 02/27/23 09:15 Calcium Carbonate 1250mg Tab PO 03/27/23 09:29 1,250 mg BID RAIZA Administration Cefdinir 300 mg 02/23/23 17:00 02/27/23 05:08 Cefdinir 300 Mg Cap PO 03/02/23 16:59 300 mg Q12H RAIZA Administration Protocol Guaifenesin 200 mg 02/21/23 06:27 02/24/23 17:11 Guaifenesin Sugar Free 200 Mg/10 Ml Udc PO 03/23/23 06:26 200 mg Q6H PRN Administration Cough Pantoprazole Sodium 40 mg/ 100 mls @ 20 mls/hr 02/24/23 17:00 02/27/23 08:13 Dextrose IV 03/26/23 16:59 8 mg/hr Q5H RAIZA 20 mls/hr Administration 8 MG/HR Insulin Aspart 0 units 02/21/23 16:30 02/27/23 09:13 Insulin Aspart Per Unit Charge SC 03/23/23 05:59 1 units ACHS ARIZA Administration Insulin Glargine 0 units 02/20/23 21:45 02/27/23 09:15 Lantus Per Unit Charge SQ 03/22/23 21:44 Not Given BID RAIZA Lorazepam 0.5 mg 02/21/23 20:33 02/24/23 22:56 Lorazepam 0.5 Mg Tab PO 03/23/23 20:32 0.5 mg BID PRN Administration Anxiety/Insomnia Magnesium Oxide 400 mg 02/24/23 21:00 02/27/23 09:15 Magnesium Oxide 400 Mg Tab PO 03/26/23 20:59 400 mg BID RAIZA Administration Metoprolol Succinate 100 mg 02/21/23 09:00 02/27/23 09:15 Metoprolol Succ 50mg Ext Rel Tab PO 03/23/23 08:59 100 mg QAM RAIZA Administration Metoprolol Succinate 50 mg 02/20/23 21:00 02/26/23 19:51 Metoprolol Succ 50mg Ext Rel Tab PO 03/22/23 20:59 50 mg HS RAIZA Administration Polyethylene Glycol 17 gm 02/20/23 16:40 02/24/23 13:14 Polyethylene (Miralax) 17 Gm Pack PO 03/22/23 16:39 17 gm DAILY PRN Administration Constipation Potassium Phosphate 2 tab 02/24/23 13:00 02/27/23 09:16 Pot Phosphate Monobasic W/ Sod Tab PO 03/26/23 12:59 2 tab QID RAIZA Administration NPO Date Last Intake of Fluids: 02/27/23 Time Last Intake of Fluids: 09:00 Last Intake of Fluids Comment: Sip with meds Date Last Intake of Solids: 02/25/23 Past Medical History Medical History CKD (chronic kidney disease) stage 3, GFR 30-59 ml/min Diabetes mellitus type 2 in obese History of breast cancer Hyperlipidemia Hypertension Atrial fibrillation Exercise / Class Metabolic Activity III < 4 Walking/Shop/Light housework Past Family History Family History Other No significant family history Past Surgical History Surgical History Bilateral cataracts Past Anesthesia History No Hx of Anesthesia Complications and No Family Hx of Anesthesia Complications History of PONV No Hx of PONV and No Hx of Motion Sickness Social History Smoking Status: Never smoker Hx Alcohol Use: Yes Alcohol type: wine alcohol intake frequency: holidays/special occasions only Hx Substance Use: No substance use type: does not use Physical Exam Vital Signs Last Vital Signs Temp 36.5 C 02/27/23 12:17 Pulse 84 02/27/23 12:17 Resp 20 02/27/23 12:17 BP 122/87 02/27/23 12:17 Pulse Ox 97 02/27/23 12:17 O2 Del Method Room Air 02/27/23 12:17 Constitutional no acute distress ENMT Mouth: no chipped teeth and no loose teeth Thyromental Distance: > or= 3.5 Finger Breadths Mallampati Class: II Neck normal visual inspection, trachea midline and + shortened thyromental distance; neck extension not limited Respiratory normal respiratory effort; no respiratory distress Auscultation: lungs clear to auscultation bilaterally and + rhonchi; no crackles and no wheezes Cardiovascular Rate/Rhythm: regular rate; + abnormal rhythm Heart Sounds: no gallop, no murmur and no cardiac rub Musculoskeletal Head/Neck/Chest: full ROM of neck Neurologic moves all extremities and awake Psychiatric Orientation: alert and oriented x 3 Testing Laboratory Results 02/27/23 07:03 02/27/23 07:03 PT 19.3 Seconds (9.0-12.0) H 02/27/23 09:19 INR 1.8 (0.9-1.1) H 02/27/23 09:19 Hemoglobin A1c 8.5 % (4.5-5.6) H 02/21/23 03:24 Urine Color Yellow 02/20/23 16:49 Urine Appearance Turbid (Clear) A 02/20/23 16:49 Urine pH 5.0 (4.5-7.5) 02/20/23 16:49 Ur Specific [place] 1.016 (1.000-1.030) 02/20/23 16:49 Urine Protein 1+ (Negative) H 02/20/23 16:49 Urine Glucose (UA) Negative (Negative) 02/20/23 16:49 Urine Ketones Trace (Negative) H 02/20/23 16:49 Urine Nitrite Positive (Negative) A 02/20/23 16:49 Ur Leukocyte Esterase 3+ (Negative) H 02/20/23 16:49 Urine WBC (Auto) >30 /hpf (0-5) H 02/20/23 16:49 Urine RBC (Auto) 0-4 /hpf (0-4) 02/20/23 16:49 U Hyaline Cast (Auto) 1-5 /lpf (0-5) 02/20/23 16:49 U Epithel Cells (Auto) >30 /lpf (0-5) H 02/20/23 16:49 Urine Bacteria (Auto) 4+ (Negative) H 02/20/23 16:49 Blood Type A Positive 02/20/23 14:44 Antibody Screen NEGATIVE 02/20/23 14:44 02/20/23 Unknown Gram Stain - Final Sputum, Expectorated Sputum Culture - Final Haemo.influ betalactamase pos 02/20/23 16:49 Urine Culture - Final Urine,Clean Catch Three types of organisms present, all high counts. Repeat collection recommended. No further identifications or sensitivities to follow. 02/27/23 02/27/23 11:32 08:19 POC Glucose 166 H 190 H
[2023-02-27] MEDS ORDERED: PROPOFOL IV EMULSION 10 MG/ML 20 ML VIAL IV ONE (12:58)
[2023-02-27] MEDS ORDERED: LIDOCAINE 2% 2 ML VIAL/AMP(20MG/ML) INFIL ONE (12:58)
--- NOTE | 2023-02-27 13:02 | GI REPORT ---
Patient Name: Cristine Benitez Procedure Date: 02/27/2023 12:29 PM Date of : 1935 Admit Type: Inpatient Age: 87 Gender: Female Attending MD: Alyson Tineo DO, Procedure: Upper GI endoscopy Providers: Alyson Tineo DO Referring MD: Flori Hussein M.d. Indications: Melena Medicines: Propofol per Anesthesia Complications: No immediate complications. Estimated blood loss: None. Estimated Blood Loss: Estimated blood loss: none. Procedure: Pre-Anesthesia Assessment: - Prior to the procedure, a History and Physical was performed, and patient medications, allergies and sensitivities were reviewed. The patient's tolerance of previous anesthesia was reviewed. - The risks and benefits of the procedure and the sedation options and risks were discussed with the patient. All questions were answered and informed consent was obtained. - Patient identification and proposed procedure were verified prior to the procedure by the physician and the nurse. The procedure was verified in the pre-procedure area in the procedure room. - Mental Status Examination: alert and oriented. Airway Examination: normal oropharyngeal airway and neck mobility. Respiratory Examination: clear to auscultation. CV Examination: normal. Abdominal Examination: bowel sounds present, abdomen soft and non-tender, no masses or organomegaly noted. - ASA Grade Assessment: III - A patient with severe systemic disease. After obtaining informed consent, the endoscope was passed under direct vision. Throughout the procedure, the patient's blood pressure, pulse, and oxygen saturations were monitored continuously. The Colonoscope was introduced through the mouth, and advanced to the second part of duodenum. The upper GI endoscopy was accomplished without difficulty. The patient tolerated the procedure well. Findings: The esophagus was normal. The stomach was normal. The examined duodenum was normal. Impression: - Normal esophagus. - Normal stomach. - Normal examined duodenum. - No specimens collected. Recommendation: - Perform a colonoscopy today. Lelia Sorensen DO 02/27/2023 1:01:36 PM This report has been signed electronically. Note Initiated On: 02/27/2023 12:29 PM Number of Addenda: 0 I attest to the content of the Intraoperative Record and orders documented therein, exceptions below {[id number]}
--- NOTE | 2023-02-27 13:10 | GI REPORT ---
Patient Name: Cristine Benitez Procedure Date: 02/27/2023 12:28 PM Date of : 1935 Admit Type: Inpatient Age: 87 Gender: Female Attending MD: Alyson Tineo DO, Procedure: Colonoscopy Providers: Alyson Tineo DO Referring MD: Flori Hussein M.d. Indications: Melena, Acute post hemorrhagic anemia Medicines: Propofol per Anesthesia Complications: No immediate complications. Estimated blood loss: None. Estimated Blood Loss: Estimated blood loss: none. Procedure: Pre-Anesthesia Assessment: - Prior to the procedure, a History and Physical was performed, and patient medications, allergies and sensitivities were reviewed. The patient's tolerance of previous anesthesia was reviewed. - The risks and benefits of the procedure and the sedation options and risks were discussed with the patient. All questions were answered and informed consent was obtained. - Patient identification and proposed procedure were verified prior to the procedure by the physician and the nurse. The procedure was verified in the pre-procedure area in the procedure room. - Mental Status Examination: alert and oriented. Airway Examination: normal oropharyngeal airway and neck mobility. Respiratory Examination: clear to auscultation. CV Examination: normal. Abdominal Examination: bowel sounds present, abdomen soft and non-tender, no masses or organomegaly noted. - ASA Grade Assessment: III - A patient with severe systemic disease. After I obtained informed consent, the scope was passed under direct vision. Throughout the procedure, the patient's blood pressure, pulse, and oxygen saturations were monitored continuously. The Colonoscope was introduced through the anus and advanced to the terminal ileum. The colonoscopy was performed without difficulty. The patient tolerated the procedure well. The quality of the bowel preparation was good. Findings: The perianal and digital rectal examinations were normal. Pertinent negatives include normal sphincter tone and no palpable rectal lesions. The terminal ileum appeared normal. Multiple small and large-mouthed diverticula were found in the entire colon. Internal hemorrhoids were found during retroflexion. The hemorrhoids were medium-sized and Grade I (internal hemorrhoids that do not prolapse). Impression: - The examined portion of the ileum was normal. - Diverticulosis in the entire examined colon. - Internal hemorrhoids. - No specimens collected. Recommendation: - Return patient to [facility]. - Would monitor anti-coag levels closely as INR once patient discharged. INR was 7.7 on admission. Alyson Tineo D.O. Alyson Tineo, 02/27/2023 1:09:33 PM This report has been signed electronically. Note Initiated On: 02/27/2023 12:28 PM Number of Addenda: 0 I attest to the content of the Intraoperative Record and orders documented therein, exceptions below {[id number]}
--- NOTE | 2023-02-27 14:23 | Anesthesiology Progress Note ---
Date of Service February 27, 2023 Anesthesia Post Procedure Vital Signs Vital Signs: Temp Pulse Pulse Resp BP Pulse Ox O2 Del Method 02/27/23 13:30 81 20 153/64 H 98 Room Air 02/27/23 13:15 80 18 136/67 98 Room Air 02/27/23 13:00 75 16 98/54 L 100 Room Air 02/27/23 12:17 36.5 C 84 20 122/87 97 Room Air 02/27/23 11:17 36.8 C 97 H 16 119/58 L 95 Room Air 02/27/23 09:00 81 02/27/23 09:00 Room Air 02/27/23 08:13 36.8 C 87 18 136/72 96 Room Air 02/27/23 03:19 36.9 C 87 16 150/71 H 94 Room Air 02/26/23 23:11 36.8 C 85 20 138/71 96 Room Air 02/26/23 22:45 88 02/26/23 22:36 Room Air 02/26/23 19:36 36.8 C 89 20 145/62 H 98 Room Air 02/26/23 18:30 37.2 C 62 18 124/66 95 Room Air Transfer of Care Handoff Completed per policy Notes Mental Status: alert / awake / arousable and participated in evaluation Patient Amnestic to Procedure: Yes Nausea / Vomiting: adequately controlled Pain: adequately controlled Airway Patency, RR, SpO2: stable & adequate BP & HR: stable & adequate Hydration State: stable & adequate Anesthetic Complications: no major complications apparent
[2023-02-27] MEDS: PANTOprazole 40 MG TAB PO SCH (21:09)
[2023-02-27] MEDS: LORazepam 0.5 MG TAB PO PRN (21:16)
[2023-02-27] MEDS: ACETAMINOPHEN 325 MG TAB PO PRN (21:16)
[2023-02-28] MEDS: CEFDINIR 300 MG CAP PO SCH (05:11)
[2023-02-28 08:10] LABS: Basophils # (auto) 0.01 K/uL (0.00-0.20); Basophils % (auto) 0.2 %; Hematocrit (blood only) 22.6 % (37.0-47.0); Hemoglobin 7.3 g/dl (12.0-16.0); Immature Granulocytes # (auto) 0.05 K/uL (0.01-0.20); Immature Granulocytes % (auto) 0.9 %; Lymphocytes # (auto) 0.57 K/uL (1.20-3.40); Mean Corpuscular Hemoglobin 29.2 pg (25.0-34.0); Mean Corpuscular Hgb Conc 32.3 g/dL (32.0-36.0); Mean Corpuscular Volume 90.4 fL (80.0-100.0); Monocytes # (auto) 0.53 K/uL (0.11-0.59); Monocytes % (auto) 9.3 %; Neutrophils # (auto) 4.54 K/uL (1.40-6.50); Neutrophils % (auto) 79.6 %; Platelet Count 254 K/uL (130-400); RDW Coefficient of Variation 14.5 % (11.5-14.5); RDW Standard Deviation 47.4 fL (36.4-46.3)
[2023-02-28] MEDS: LANTUS PER UNIT CHARGE SQ SCH (08:12)
[2023-02-28] MEDS: INSULIN ASPART PER UNIT CHARGE SC SCH ×2 (08:12→12:31)
[2023-02-28] MEDS: PANTOprazole 40 MG TAB PO SCH (08:16)
[2023-02-28] MEDS: METOPROLOL SUCC 50MG EXT REL TAB PO SCH (08:17)
[2023-02-28] MEDS: ATORVASTATIN 40 MG TAB PO SCH (08:18)
[2023-02-28] MEDS: MAGNESIUM OXIDE 400 MG TAB PO SCH (08:18)
[2023-02-28] MEDS: CALCIUM CARBONATE 1250MG TAB PO SCH (08:18)
[2023-02-28] MEDS: POT PHOSPHATE MONOBASIC W/ SOD TAB PO SCH ×2 (08:19→13:45)
[2023-02-28 08:27] LABS: Albumin Globulin Ratio 0.8 (0.9-2); Albumin Level 2.6 gm/dl (3.4-5.0); BUN Creatinine Ratio 11.3 (10-20); Bilirubin,Total 0.8 mg/dl (0.2-1.0); Calcium 7.8 mg/dl (8.6-10.3); Creatinine Clr Calc Pharmacy 31.2 ml/min; Est GFR (African American) 54.3 ml/min; Est GFR (Non-African American) 46.8 ml/min; Globulin 3.1 gm/dl (2.5-4.0); Magnesium 1.9 mg/dl (1.7-2.4); Phosphorus 4.4 mg/dl (2.5-4.9); Potassium 3.3 mmol/L (3.5-5.1); Total Protein 5.7 gm/dl (6.0-8.3)
[2023-02-28] MEDS ORDERED: POTASSIUM CHLORIDE CRTAB 20 MEQ TABCR PO STA (08:43)
[2023-02-28 08:44] LABS: Ovalocytes 1+; Polychromasia 1+
[2023-02-28 08:53] LABS: INR 1.7 (0.9-1.1)
[2023-02-28] MEDS ORDERED: POTASSIUM CHLORIDE 20 MEQ/15 ML UDC PO STA (09:36)
--- NOTE | 2023-02-28 11:41 | Discharge Summary ---
Discharge Summary Date of Service February 28, 2023 Notes For Next Care Provider Please closely monitor H/H to ensure stability- repeat at visit Please ensure close follow up with GI for video capsule Pt with sputum culture growing H flu and concern for UTI- discharged with 3 more days of PO cefdinir treatment. Please ensure resolution of symptoms. Please ensure close followup with Nephrology Please ensure close followup with Cardiology Medication Changes From Visit Discontinue Warfarin Cefdinir 300mg BID x 3 days pantoprazole 40mg BID Admission HPI Per Admitting Provider Ms. Benitez is an 87 year old female that presents to the ED today with weakness, decreased PO intake, and diarrhea x3 days with noted joao red melena. She was on recent antibiotics for a UTI. Incidentally, was found to have a Supratherapeutic INR. No leukocytosis, mild JOLIE Creatinine 2.10; baseline 1.2- 1.3. Most recent ECHO 11/17/22: EF 55-59%, moderate to severe MR, Moderate TR; mild pHTN. Patient denies tobacco, alcohol, recreational drug including medical marijuana use. She denies CARABALLO, dizziness, SOB, chest pain, palpitations, abdominal pain or tenderness, recent falls or trauma, visual or auditory changes. On examination she is AAOx3 and able to have a meaningful conversation and appears relatively stable. Normotensive without tachycardia or hypoxia. She is afebrile and on room air. While I was interviewing her with her family at the bedside she went into an 8 beat run of asymptomatic V. tach. ECG was obtained at that time with A-fib and PVCs. Patient denies chest pain. Will obtain BMP with CBC/PT/INR check at 2100. Patient complex with numerous issues including a GIB and supratherapeutic INR which is suspected to be related to abx use for a recent UTI. Patient with chronic kidney dysfunction, will monitor trends and obtain renal US. She is positive for influenza; will hold on any Tamiflu for now given the complexity of her other ailments. Will hold on any additional fluid given her moderate to severe MR and has remained normotensive since arrival. If tamiflu is considered, would need renal dosing given acute on chronic kidney failure. Will replace electrolyte. In the meantime will consult GI and placed on Protonix drip. Patient will be admitted for further evaluation and management. Please see H&P for further details. Admission Exam Per Admitting Provider Neuro: AAOx4, PERRLA, no aphagia, memory changes, CNII-XII grossly intact HEENT: head normocephalic, moist mucus membranes CV: S1/S2, (-) M/G/R, (-) edema, cap refill < 3 seconds Resp: Lungs CTA in all mayorga. On RA GI: Abdomen S/NT/ND, Ax4 bowel sounds, (-) CVA tenderness Musculoskeletal: 5/5 B/L UE strength, 5/5 B/L LE strength. No gait disturbance Skin: (-) rashes , (-) erythema. Psych: euthymic mood Principal Dx & Hospital Course #1 = Principal Diagnosis (1) Acute GI bleeding: (2) Atrial fibrillation: (3) Hypertension: (4) JOLIE (acute kidney injury): (5) Hypomagnesemia: (6) Supratherapeutic INR: (7) Influenza A: (8) Melena: (9) Diarrhea: (10) Hyperlipidemia: (11) Diabetes mellitus type 2 in obese: Plan Pt is an 87yoF with PMhx significant for a fib, HTN, HLD, DMII admitted with an acute GI Bleed in the setting of a supratherapeutic INR. GI Bleed Joao melena;black tarry stools x 3 days FOBT + Hypotensive initially in ED; received fluids serum Hgb 9.7 on admission; baseline 11.1 Hemoglobin currently 7.3 Pt was on ppi drip, had EGD and colonoscopy on 02/27 -noted internal hemorrhoids and diverticulosis but no active bleeds -per GI, possibility that there might be AVMs in small bowel, recommending outpt video capsule - transitioned to pantoprazole 40mg BID for discharge Close PCP and GI follow up after discharge for H/H monitoring and further evaluation. Atrial Fibrillation Supratherapeutic INR: Pt on metoprolol and warfarin for atrial fibrillation On admission, INR 7.7; Vitamin K 10 mg IV administered in ED Repeat INR 1.2 at that time Held Coumadin Trended INR, still elevated at 1.7 on discharge Son asking for warfarin to be discontinued Cardiology consult placed -recommended holding home warfarin -repeat CBC and BMP in 1 week -further discussion at follow up scheduled appt about a possible start of Eliquis JOLIE: serum creatinine 2.10 on admission; baseline 1.2-1.3 Received IV fluids, within normal limits on discharge Was seen by nephrology while hospitalized Recommended the following for discharge: -Resume home metformin and lisinopril the day after discharge -for recent uncontrolled HTN as an outpatient, they recommend renal follow up about a month after discharge to reevaluate the blood pressure -Hospital discharge appt with Dr Roberts in 3-4 wks after hospital discharge to reevaluate the blood pressure Influenza A +: Tested positive for influenza A Rest of Biofire negative Sputum Cx growing H flu treated with po cefdinir, dsicharged with 3 more days of treatment Continue supportive therapy Saturating well on room air PCP follow up Ventricular Tachycardia: One 8 beat run VT asymptomatic Will keep potassium above 4 and magnesium above 2 Cardiology followup Hypomg+ Serum Mg+ 1.6 on admission Repleted as needed Abnormal UA UA positive for nitrite, leukocyte and bacteria Urine culture grew multiple organisms (possible contamination) On Cefepime- transitioned to rocephin on 02/23, discharged with 3 more days of po cefdinir PCP followup HTN: Held home amlodipine, lisinopril and lasix Resume after discharge Discussed with Cardiology, Dr Umana on day of discharge, pt to resume home dose of Lasix 40mg 5x a week Pt and son made aware verbally. PCP and cardiology follow up Diabetes Mellitus type 2: Most recent hemoglobin A1c 8.5 Held glipizide and Metformin while inpt Was on insulin sliding scale and Lantus Resume home meds after discharge PCP follow up HLD: Continue atorvastatin Discharge Exam General: Alert, oriented. No acute distress Skin: No noted rashes or bruises Psych: Appropriate mood and affect Neuro: No gross deficits while laying in bed HEENT: NC/AT Chest: Nontender to palpation. CV: Irregular Resp: Breath sounds with scattered wheezes bilaterally, no increased effort of breathing. Abdomen:Soft, nontender, nondistended. Extremities: No edema in lower extremities bilaterally. Updated Medication List Medication Instructions Recorded Confirmed Type cholecalciferol (vitamin D3) 25 1,000 unit PO DAILY 12/29/18 02/20/23 History mcg (1,000 unit) capsule (Vitamin D3) cyanocobalamin (vitamin B-12) 1,000 mcg PO DAILY 12/29/18 02/20/23 History 1,000 mcg tablet (Vitamin B-12) glipizide 2.5 mg tablet, extended 2.5 mg PO DAILY 12/29/18 02/20/23 History release 24 hr (Glucotrol XL) lorazepam 0.5 mg tablet (Ativan) 0.5 mg PO BID PRN Anxiety 12/29/18 02/20/23 History metoprolol succinate 100 mg See Rx Instructions .Route .COMPLEX 12/29/18 02/20/23 History tablet,extended release 24 hr (Toprol XL) polyethylene glycol 3350 17 17 g PO DAILY PRN Constipation 12/29/18 02/20/23 History gram/dose oral powder (Miralax) triamcinolone acetonide 0.1 % 1 applic topical BID PRN Itching 12/29/18 02/20/23 History topical cream (Triderm) amlodipine 2.5 mg tablet 2.5 mg PO QAM 02/20/23 02/20/23 History atorvastatin 80 mg tablet 80 mg PO QAM 02/20/23 02/20/23 History docusate sodium 100 mg capsule 100 mg PO DAILY 02/20/23 02/20/23 History hydrocodone 5 mg-acetaminophen 325 1 tab PO BID PRN Pain, Severe 02/20/23 02/20/23 History mg tablet lisinopril 20 mg tablet 20 mg PO DAILY 02/20/23 02/20/23 History metformin 500 mg tablet 500 mg PO BIDM 02/20/23 02/20/23 History pantoprazole 40 mg tablet,delayed 40 mg PO BID #60 tabs 02/23/23 Rx release cefdinir 300 mg capsule 300 mg PO BID #6 caps 02/28/23 Rx furosemide 40 mg tablet 40 mg 5XWK 02/28/23 02/28/23 History Hospital Stay Data Consultations 02/20/23 16:39 ED Decision to Admit Stat 02/20/23 16:40 Consult Gastroenterology Routine 02/24/23 11:19 Consult Nephrology Routine 02/25/23 09:18 Consult Gastroenterology Routine Procedures Performed Operation Date: 02/27/23 18:00 Actual Procedures p Esophagogastroduodenoscopy - Alyson Tineo DO s Colonoscopy - Alyson Tineo DO Diagnostic Imagining Performed 02/21/23 US renal/blad retro comp Routine Renal Ultrasound 02/21/23 00:00 RENAL ULTRASOUND HISTORY: Acute on chronic kidney failure COMPARISON: Abdomen and pelvis CT 08/18/2010. FINDINGS: Right kidney: 9.1 cm. No hydronephrosis. Echogenic cortex with moderate cortical thinning. Left kidney: 10.2 cm. No hydronephrosis. Echogenic cortex with moderate cortical thinning. A few cysts with the largest measuring 1.5 cm. Bladder: Bladder is decompressed and not well visualized. No definite bladder wall thickening. The ureteral jets are not identified during the examination. IMPRESSION: 1. No hydronephrosis. 2. Echogenic kidneys with moderate cortical thinning. This suggests medical renal disease. ACT 112: Negative or not required by law. Electronically signed by: Rian Torres M.D. 02/21/2023 9:20 AM Pending Results Patient Have Any Pending Studies at Discharge: No Discharge Instructions Given to Patient (Per Discharging Provider) Ms. Benitez, We suspected that you had an acute GI bleed as your blood was too thin while taking your warfarin. We discontinued the warfarin and your INR is still a little high at 1.7. You were seen by the cutting machine fixer and they performed both an upper endoscopy and lower colonoscopy to look for a source of the bleed. Those evaluations did not show one. However, gastroenterology is recommending an outpatient video capsule to evaluate the small intestine as there is the possibility that you might have arteriovenous malformations (AVMs) that are bleeding. Please keep close follow up with Gastroenterology after discharge for that. We are discharging you home with the medication pantoprazole 40mg BID to help as well. You had a respiratory infection that grew a bacteria requiring antibiotic coverage and there was concern for a urinary tract infection as well. We are discharging you with 3 more days of cefdinir that you can take twice a day to help with those infections. You were seen by the kidney doctor (nephrology) Dr Laila Roberts while you were here and she recommended the following: -Resume your home metformin and lisinopril the day after discharge -for your recent uncontrolled HTN as an outpatient, they recommend renal follow up about a month after discharge to reevaluate the blood pressure -Dr Kendrick wants the hospital discharge appt with her in 3-4 wks after hospital discharge to reevaluate the blood pressure You were seen by Cardiology and they are recommending that you do not take your home warfarin for now. They recommend repeating your lab work in 1 week and further discussion of transitioning to a new anticoagulation medication at your follow up appointment with them. Please continue your home dose of Lasix after discharge. Please keep your scheduled follow ups with gastroenterology, nephrology, and cardiology for close monitoring after discharge. You are also scheduled with your primary care provider in 2 days. Please keep that appointment for further close monitoring and further evaluation. Should your symptoms return or worsen, please do not hesitate to come back to the emergency room. It was a pleasure taking care of you while you were here! Total Time Total Time Spent Total Time Spent (In Minutes): > 30 minutes
--- NOTE | 2023-02-28 12:37 | Cardiology Consultation ---
Date of Consultation February 28, 2023 Assessment & Plan (1) Acute GI bleeding: (2) Atrial fibrillation: (3) Supratherapeutic INR: Plan Assessment: 87 year-old female presents with acute GI bleed, unidentified site, supratherapeutic INR and known history or persistent atrial fibrillation. Subsequent work up also positive for Influenza A. Plan: 1. Acute GI bleed: -Patient reports resolution of diarrhea and no further black stools. -GI on consult with no acute bleed found on EGD or Colonoscopy. Plan is for consideration of Pill Cam as appropriate per GI. -INR currently 1.7 today; however H/H remains low 7.3/22.6 -Discussed in detail risk vs benefit of anticoagulation therapy in the setting of an acute GI bleed with both patient and her son. Verbalizes risk of emergent bleed requiring transfusion vs possible thromboembolic event. Verbalized understanding. -Will plan to hold warfarin at this time, will plan for an repeat H/H in one week, as well as close GI and cardiology follow up. When H/H is stable, discussed consideration for restarting Warfarin vs starting Eliquis. -Given patient's age, current renal function and weight, she would be started on Eliquis 5mg PO BID. 2. Persistent Atrial fibrillation: 3. Supratherapeutic INR: - INR today 1.7. Plan is to continue to hold warfarin in the setting of low H/H and unidentified source of bleed. -Plan for OP CBC and BMP in one week. -Close cardiology follow up within 3-4 weeks. -Risk vs benefit discussed in detail with both patient and her son. Verbalized understanding. Case has been discussed with Dr. Umana. Further recommendations regarding plan of care as per his assessment. I spent a total of 30 minutes on the date of service in preparation, delivery, documentation of the care provided to the patient excluding any time spent in the performance of separately billed services. PARESH Jacobson [facility] Supervising Physician Co-Signing Physician Notes Supervising Physician Attestation: I have personally performed a history and physical examination on the patient. I agree with the PARESH's findings and plan as documented with the following additions. Subjective: Patient and son, Cipriano, present at the time my assessment. Patient with ongoing nonproductive cough. Otherwise feeling improved. Exam: Cardiovascular: Irregular rhythm, 2/6 systolic murmur heard best at the left axilla, no edema Pulmonary: Coarse expiratory breath sounds Data: EKG performed 02/20/2023 and interpreted independently: Atrial fibrillation at 96 bpm with occasional PVCs, diffuse nonspecific T wave flattening. Hemoglobin 7.3 ASSESSMENT AND PLAN: Permanent atrial fibrillation, [id number] score of at least 5 for risk factors of age over 75 (2 points) , female sex, hypertension, diabetes predicting high risk of embolic stroke. Patient however with ongoing anemia, no source of bleeding determine on EGD or colonoscopy. Perhaps a small bowel etiology. Hemoglobin remains low at 7.3 but stable. -At present, I feel that the risk of bleeding on anticoagulation outweighs the prophylactic benefit in terms of stroke prophylaxis. Would have recommended remaining off of anticoagulation in the short-term with plans for outpatient repeat hemoglobin. -It is noted that her INR was supratherapeutic, greater than 7 on presentation in setting of acute with influenza A, and recent antibiotic exposure. Future considerations include transitioning to a direct oral anticoagulant if not cost prohibitive such as Eliquis. Given her age of [age] years old, weight of 66 kg, and creatinine of 1.06, the appropriate Eliquis dose would be 5 mg twice daily. The patient however did present with acute kidney injury and creatinine of 2.1, and I think that a Eliquis dose of 2.5 twice daily would be a reasonable compromise in the future. Received potassium chloride supplementation. Lg Umana, DO History of Present Illness Reason for Consultation: GI Bleed, anticoagulation recommendations Requesting Physician: [facility] Attending Physician: Flori Hussein MD History of Present Illness Patient is an 87 year-old female that presented to the ED on 02/20/2023 with 2 day history of "black diarrhea", poor oral intake and weakness. She endorsed 4-6 episodes of loose stools per day. patient denies any recent travel, and no recent surgery. She does endorse being on a antibiotic for a UTI as per her PCP. Patient denies any vomiting, no abdominal pain or other complaints. We have been asked to see patient for recommendation of anti-coagulation therapy in the setting of profound anemia, GI bleed and being on warfarin for persistent atrial fibrillation. INR at time of admission was supratherapeutic at 7.7. FCOB positive Serum magnesium 1.6--supplemented. Subsequent Influenza panel positive for Flu A. Primary Website Optimization Strategist: Cameron Becerra PA-C. Last seen 01/19/2023 Cardiac Problems: 1. Diastolic CHF 2. Paroxysmal Atrial tacycardia 3. Persistent Atrial fibrilliation 4. PSVT 5. PVC's 6. Nonsustained VT 7. HTN 8. Dyslipidemia 9. Stage III CKD 10. History of breast CA 11. Anemia, Iron deficient. Allergies Allergy/AdvReac Type Severity Reaction Status Date / Time tramadol Allergy Severe HALLUCINATIONS-PER Verified 02/20/23 16:07 GMG bacitracin Allergy Mild CAUSED EYE Verified 02/20/23 16:07 PROBLEMS neomycin Allergy Mild Rash Verified 02/20/23 16:07 polymyxin B Allergy Mild CAUSED EYE Verified 02/20/23 16:07 PROBLEMS Aminoglycosides Allergy Unknown Unknown Verified 02/20/23 16:07 aspirin AdvReac Severe HX OF GI Verified 02/20/23 16:07 BLEED ibuprofen AdvReac Severe HX OF GI Verified 02/20/23 16:07 BLEED naproxen [From Aleve] AdvReac Severe HX OF GI Verified 02/20/23 16:07 BLEED NSAIDS (Non-Steroidal AdvReac Severe HX OF GI Verified 02/20/23 16:07 Anti-Inflamma BLEED doxycycline AdvReac Intermediate HALLUCINATI Verified 02/20/23 16:07 ONS nitrofurantoin AdvReac Intermediate HEADACHES Verified 02/20/23 16:07 [From Macrobid] Sulfa (Sulfonamide AdvReac Intermediate NAUSEA, Verified 02/20/23 16:07 Antibiotics) VOMITING, BAD HEADACHE triamterene AdvReac Intermediate ULCERS Verified 02/20/23 16:07 Home Medications Medication Instructions Recorded Confirmed Type cholecalciferol (vitamin D3) 25 1,000 unit PO DAILY 12/29/18 02/20/23 History mcg (1,000 unit) capsule (Vitamin D3) cyanocobalamin (vitamin B-12) 1,000 mcg PO DAILY 12/29/18 02/20/23 History 1,000 mcg tablet (Vitamin B-12) glipizide 2.5 mg tablet, extended 2.5 mg PO DAILY 12/29/18 02/20/23 History release 24 hr (Glucotrol XL) lorazepam 0.5 mg tablet (Ativan) 0.5 mg PO BID PRN Anxiety 12/29/18 02/20/23 History metoprolol succinate 100 mg See Rx Instructions .Route .COMPLEX 12/29/18 02/20/23 History tablet,extended release 24 hr (Toprol XL) polyethylene glycol 3350 17 17 g PO DAILY PRN Constipation 12/29/18 02/20/23 History gram/dose oral powder (Miralax) triamcinolone acetonide 0.1 % 1 applic topical BID PRN Itching 12/29/18 02/20/23 History topical cream (Triderm) amlodipine 2.5 mg tablet 2.5 mg PO QAM 02/20/23 02/20/23 History atorvastatin 80 mg tablet 80 mg PO QAM 02/20/23 02/20/23 History docusate sodium 100 mg capsule 100 mg PO DAILY 02/20/23 02/20/23 History hydrocodone 5 mg-acetaminophen 325 1 tab PO BID PRN Pain, Severe 02/20/23 02/20/23 History mg tablet lisinopril 20 mg tablet 20 mg PO DAILY 02/20/23 02/20/23 History metformin 500 mg tablet 500 mg PO BIDM 02/20/23 02/20/23 History pantoprazole 40 mg tablet,delayed 40 mg PO BID #60 tabs 02/23/23 Rx release cefdinir 300 mg capsule 300 mg PO BID #6 caps 02/28/23 Rx Patient History Medical History CKD (chronic kidney disease) stage 3, GFR 30-59 ml/min Diabetes mellitus type 2 in obese History of breast cancer Hyperlipidemia Hypertension Atrial fibrillation Surgical History Bilateral cataracts Family History Other No significant family history Social History Smoking Status: Never smoker Hx Alcohol Use: Yes Alcohol type: wine Hx Substance Use: No Preferred Language: Palestinian Communication Ability: Effective Research And Development Tester Required: No Beliefs That Will Affect Care: None Current Living Situation: Alone current occupational status: retired Other Information That Helps Us Care for You: No Feels Safe at Home: Yes Safety Concerns: Feels Safe At This Time Assistive Devices: None, Cane and Walker Review of Systems Review of Systems: All systems reviewed & are unremarkable except as noted in HPI & below Physical Exam Constitutional: WD/WN, vitals as above no acute distress Neck: normal visual inspection and trachea midline Respiratory: normal respiratory effort, lungs clear to auscultation Cardiovascular: Rate/Rhythm: regular rate and + irregularly irregular Heart Sounds: normal S1 and normal S2 Extremities: no pedal edema Skin: no rashes, warm and dry Psychiatric: A+Ox3, euthymic affect Results & Data Vital Signs (Past 12 Hours) Vital Signs Temp Pulse Pulse Resp BP Pulse Ox O2 Del Method 02/28/23 11:34 37.3 C 90 18 151/67 H 92 Room Air 02/28/23 08:00 98 H 02/28/23 07:30 36.4 C L 92 H 19 133/64 92 Room Air 02/28/23 02:57 36.8 C 79 18 129/72 93 Room Air 02/28/23 00:47 78 Laboratory Results Cardiac Enzymes 02/28/23 Range/Units 07:17 AST 16 (13-39) U/L Coagulation 02/28/23 Range/Units 07:17 PT 18.0 H (9.0-12.0) Seconds CBC 02/28/23 Range/Units 07:17 WBC 5.70 (4.8-10.8) K/ul RBC 2.50 L (4.20-5.40) M/uL Hgb 7.3 L (12.0-16.0) g/dl Hct 22.6 L (37.0-47.0) % Plt Count 254 (130-400) K/uL Neut # (Auto) 4.54 (1.40-6.50) K/uL Lymph # (Auto) 0.57 L (1.20-3.40) K/uL Long # (Auto) 0.53 (0.11-0.59) K/uL Eos # (Auto) 0.00 (0.00-0.50) K/uL Baso # (Auto) 0.01 (0.00-0.20) K/uL Comprehensive Metabolic Panel 02/28/23 Range/Units 07:17 Sodium 141 (136-145) mmol/L Potassium 3.3 L (3.5-5.1) mmol/L Chloride 105 (98-107) mmol/L Carbon Dioxide 28 (21-32) mmol/L BUN 12 (6-23) mg/dl Creatinine 1.06 (0.6-1.2) mg/dl Glucose 135 H (70-99(Fasting)) mg/dl Calcium 7.8 L (8.6-10.3) mg/dl AST 16 (13-39) U/L ALT 16 (7-52) U/L Alkaline Phosphatase 64 (34-104) U/L Total Protein 5.7 L (6.0-8.3) gm/dl Albumin 2.6 L (3.4-5.0) gm/dl Intake and Output 02/27/23 02/28/23 02/28/23 22:59 06:59 14:59 Intake Total 91.667 / 603.667 100 / 603.667 Balance 91.667 / 599.667 100 / 599.667 Intake: IV 91.667 / 503.667 Magnesium Sulfate / D5w 1 gm In 91.667 / 191.667 100 ml @ 50 mls/hr IV Q2H RAIZA Rx#:[id number] Oral 100 / 100 Other: # Unmeasured Voids 1 1 Weight 66.3 kg Weight Measurement Method Built in [facility] Diagnostic Findings Echocardiogram 11/17/2022 The rhythm during the transthoracic echo examination was atrial fibrillation with controlled ventricular response. The qualitative LV ejection fraction is 55-59% (normal). The left atrium is mildly enlarged (35-41 ml/m^2). Moderate focal calcification involving the tip of the anterior mitral valve leaflet. Moderate to severe mitral regurgitation. Moderate tricuspid regurgitation is present. The estimated pulmonary artery systolic pressure is 46mm Hg. Compared to last available study changes are noted as follows: Moderate to severe mitral regurgitation and moderate tricuspid regurgitation with mild pulmonary hypertension now present. (2) Atrial fibrillation Atrial fibrillation type: longstanding persistent Qualified Code(s): I48.11 - Longstanding persistent atrial fibrillation
== END 2023-02-28 16:14 | disposition home or self-care (01) | DRG 378 ==
LOC: ED 13:57 → SUATTDRO 16:40 → EDINP 16:40 → 2S 18:39

== ENCOUNTER 2023-03-09 11:55 | Inpatient (IN) ==
[2023-03-09] MEDS ORDERED: PANTOprazole 40 MG in SYRINGE 0 ML IV ONE (12:05)
--- NOTE | 2023-03-09 12:08 | Emergency Department Note ---
Impression & Plan Weakness, JOLIE (acute kidney injury), Hypomagnesemia, BRBPR (bright red blood per rectum) ED Provider Note HISTORY OF PRESENT ILLNESS: Patient is an 87-year-old female presenting with anemia. Patient reports that she was on the commode trying to have a bowel movement when her son told her that the [facility] clinic called and said she needed to come to the ER because her hemoglobin was low. Son had called 911 and EMS reported the patient had a large bloody bowel movement in the commode. Patient denies any bloody stool. Denies any complaints on arrival to the ER. She was previously on Coumadin but this was stopped during her recent admission. Denies any chest pain or shortness of breath. Denies any lightheadedness or dizziness. She reports that she had not had a bowel movement in the last 12 days prior to this morning ROS: as above PHYSICAL EXAM: Constitutional: Patient appears in no acute distress. HENT: Head: Normocephalic and atraumatic. Eyes: EOMI, PERRL Mouth/Throat: Mucous membranes moist. Neck: Trachea midline. Neck supple. Cardiovascular: RRR. No murmurs, rubs or gallops. Intact distal pulses. Pulmonary/Chest: No respiratory distress. Breath sounds clear and equal bilaterally. No wheezes or rales. No chest wall tenderness to palpation. Abdominal: Abdomen soft, no tenderness, rebound or guarding. Rectal: Chaperoned by nursing staff. Patient has an external hemorrhoid that is not bleeding. She does have bright red blood from her rectum. Musculoskeletal: No edema, tenderness or deformity noted. Skin: Warm and dry. No rash, erythema, pallor or cyanosis Psychiatric: Appropriate mood and affect for situation. Neurological: Alert and keenly responsive. CN II-XII grossly intact, moving all extremities equally and fully. MDM: - Vitals signs stable. - History obtained via patient. Patient presents with anemia and weakness. Patient reports that she feels completely fine. She was told that she needed to come to the ER due to low hemoglobin. Reports from [facility] medical record system was reviewed. Patient's son had called the clinic that the patient is extremely weak and sleeping most of the day. She reportedly has not eaten in days. She was just discharged from the hospital on 02/28 after being admitted for GI bleed and similar symptoms. Her Coumadin was stopped at that time - Chronic conditions affecting care: CKD; DM-2; HTN; HLD; Afib - Differential diagnoses include, but are not limited to: electrolyte abnormality; anemia; lower GI bleed; upper GI bleed - Order placed for continuous cardiac monitoring. At this time, monitor showed rate of 80 bpm with normal sinus rhythm, per my interpretation. - External medical records reviewed. [facility] telephone encounter note dated 03/09/2023 was reviewed. Son had called the clinic to see if the patient's labs from 03/07 were resulted. Her hemoglobin was 7.2 on those labs. Son had told the HOME DEPOT REP that the patient was very weak and sleeping most of the day and not eating. He had thought "I think my mom is dying." He had requested that home health come and visit her in the home. However, he was advised to call 911 and bring the patient to the ER for testing and evaluation. - EKG interpreted by myself showed normal sinus rhythm. Rate 82 bpm. Very poor baseline secondary to artifact. QTc 334. No acute ischemic changes. - Laboratory workup interpreted by myself showed normal WBC; anemia (Hgb 7.9); JOLIE (Cr 1.41); hypomagnesemia (Mg 1.5) - Type and screen ordered - COVID negative - Patient given 1L NS, 40 mg IV protonix, 1g IV magnesium in ER. - Discussion was had with personal care attendant about patient's case and need for admission - Hospitalist consulted for admission - Patient admitted to [facility] hospitalist service for further evaluation and management. ASSESSMENT AND PLAN: Diagnosis: weakness; hypomagnesemia; JOLIE; bright red blood per rectum Plan: admit Past Med/Surg History Medical History CKD (chronic kidney disease) stage 3, GFR 30-59 ml/min Diabetes mellitus type 2 in obese History of breast cancer Hyperlipidemia Hypertension Atrial fibrillation Surgical History Bilateral cataracts Family History Other No significant family history Social History Smoking Status: Never smoker Hx Alcohol Use: Yes Alcohol type: wine Hx Substance Use: No Preferred Language: Romanian Communication Ability: Effective Online Services Manager Required: No Beliefs That Will Affect Care: None Current Living Situation: Alone current occupational status: retired Feels Safe at Home: Yes Assistive Devices: None, Cane and Walker Allergies Allergies Allergy/AdvReac Type Severity Reaction Status Date / Time tramadol Allergy Severe HALLUCINATIONS-PER Verified 02/20/23 16:07 GMG bacitracin Allergy Mild CAUSED EYE Verified 02/20/23 16:07 PROBLEMS neomycin Allergy Mild Rash Verified 02/20/23 16:07 polymyxin B Allergy Mild CAUSED EYE Verified 02/20/23 16:07 PROBLEMS Aminoglycosides Allergy Unknown Unknown Verified 02/20/23 16:07 aspirin AdvReac Severe HX OF GI Verified 02/20/23 16:07 BLEED ibuprofen AdvReac Severe HX OF GI Verified 02/20/23 16:07 BLEED naproxen [From Aleve] AdvReac Severe HX OF GI Verified 02/20/23 16:07 BLEED NSAIDS (Non-Steroidal AdvReac Severe HX OF GI Verified 02/20/23 16:07 Anti-Inflamma BLEED doxycycline AdvReac Intermediate HALLUCINATI Verified 02/20/23 16:07 ONS nitrofurantoin AdvReac Intermediate HEADACHES Verified 02/20/23 16:07 [From Macrobid] Sulfa (Sulfonamide AdvReac Intermediate NAUSEA, Verified 02/20/23 16:07 Antibiotics) VOMITING, BAD HEADACHE triamterene AdvReac Intermediate ULCERS Verified 02/20/23 16:07 Home Meds Home Medications Medication Instructions Recorded Confirmed cholecalciferol (vitamin D3) 25 1,000 unit PO DAILY 12/29/18 02/20/23 mcg (1,000 unit) capsule (Vitamin D3) cyanocobalamin (vitamin B-12) 1,000 mcg PO DAILY 12/29/18 02/20/23 1,000 mcg tablet (Vitamin B-12) glipizide 2.5 mg tablet, extended 2.5 mg PO DAILY 12/29/18 02/20/23 release 24 hr (Glucotrol XL) lorazepam 0.5 mg tablet (Ativan) 0.5 mg PO BID PRN Anxiety 12/29/18 02/20/23 metoprolol succinate 100 mg See Rx Instructions .Route .COMPLEX 12/29/18 02/20/23 tablet,extended release 24 hr (Toprol XL) polyethylene glycol 3350 17 17 g PO DAILY PRN Constipation 12/29/18 02/20/23 gram/dose oral powder (Miralax) triamcinolone acetonide 0.1 % 1 applic topical BID PRN Itching 12/29/18 02/20/23 topical cream (Triderm) amlodipine 2.5 mg tablet 2.5 mg PO QAM 02/20/23 02/20/23 atorvastatin 80 mg tablet 80 mg PO QAM 02/20/23 02/20/23 docusate sodium 100 mg capsule 100 mg PO DAILY 02/20/23 02/20/23 hydrocodone 5 mg-acetaminophen 325 1 tab PO BID PRN Pain, Severe 02/20/23 02/20/23 mg tablet lisinopril 20 mg tablet 20 mg PO DAILY 02/20/23 02/20/23 metformin 500 mg tablet 500 mg PO BIDM 02/20/23 02/20/23 furosemide 40 mg tablet 40 mg 5XWK 02/28/23 02/28/23 Previous Rx's Medication Instructions Recorded pantoprazole 40 mg tablet,delayed 40 mg PO BID #60 tabs 02/23/23 release cefdinir 300 mg capsule 300 mg PO BID #6 caps 02/28/23 Results & Data (ED) Vital Signs Vital Signs - 24 hr 03/09/23 12:02 03/09/23 12:08 03/09/23 12:45 Temperature 36.4 C L Temperature Source Oral Pulse Rate 76 85 79 Pulse Rate [Right Finger] Pulse Rhythm Regular Respiratory Rate 20 20 Respiratory Effort / Characteristics Non-Labored Spontaneous Respiratory Depth Normal Blood Pressure 106/60 Blood Pressure [Left Arm] Blood Pressure Mean 75 Blood Pressure Mean [Left Arm] Pulse Oximetry 99 99 Oxygen Delivery Method Room Air Room Air Sepsis New/Unexplained Change in Mental Status N/A Sepsis Action Taken by Nursing No Action Required 03/09/23 15:05 Temperature Temperature Source Pulse Rate Pulse Rate [Right Finger] 78 Pulse Rhythm Respiratory Rate 22 Respiratory Effort / Characteristics Respiratory Depth Blood Pressure Blood Pressure [Left Arm] 113/51 L Blood Pressure Mean Blood Pressure Mean [Left Arm] 71 Pulse Oximetry 95 Oxygen Delivery Method Room Air Sepsis New/Unexplained Change in Mental Status Sepsis Action Taken by Nursing Laboratory Data 03/09/23 12:25 03/09/23 12:25 Lab Results 03/09/23 03/09/23 Range/Units 12:24 12:25 WBC 6.17 (4.8-10.8) K/ul RBC 2.75 L (4.20-5.40) M/uL Hgb 7.9 L (12.0-16.0) g/dl Hct 25.8 L (37.0-47.0) % MCV 93.8 (80.0-100.0) fL MCH 28.7 (25.0-34.0) pg MCHC 30.6 L (32.0-36.0) g/dL RDW Std Deviation 53.7 H (36.4-46.3) fL RDW Coeff of Jareth 15.9 H (11.5-14.5) % Plt Count 345 (130-400) K/uL MPV 10.9 (9.4-12.4) fL Immature Gran % (Auto) 0.8 % Neut % (Auto) 72.2 % Lymph % (Auto) 13.5 % [place] % (Auto) 13.0 % Eos % (Auto) 0.0 % Baso % (Auto) 0.5 % Neut # (Auto) 4.46 (1.40-6.50) K/uL Lymph # (Auto) 0.83 L (1.20-3.40) K/uL [place] # (Auto) 0.80 H (0.11-0.59) K/uL Eos # (Auto) 0.00 (0.00-0.50) K/uL Baso # (Auto) 0.03 (0.00-0.20) K/uL Immature Gran # (Auto) 0.05 (0.01-0.20) K/uL Hypersegmented Neuts 1+ Polychromasia 1+ Poikilocytosis Present Echinocytes 2+ PT 12.5 H (9.0-12.0) Seconds INR 1.2 H (0.9-1.1) APTT 24 (21-31) Seconds PTT Ratio 0.9 Sodium 140 (136-145) mmol/L Potassium 3.5 (3.5-5.1) mmol/L Chloride 106 (98-107) mmol/L Carbon Dioxide 23 (21-32) mmol/L Anion Gap 11 (3-11) BUN 45 H (6-23) mg/dl Creatinine 1.41 H (0.6-1.2) mg/dl Est Cr Clr Drug Dosing 25.3 ml/min Est GFR ( Amer) 38.5 ml/min Est GFR (Non-Af Amer) 33.2 ml/min BUN/Creatinine Ratio 31.9 H (10-20) Glucose 123 H (70-99(Fasting)) mg/dl Calcium 8.6 (8.6-10.3) mg/dl Magnesium 1.5 L (1.7-2.4) mg/dl Iron 34 L (35-150) mcg/dl TIBC 205 L (250-450) mcg/dl Unsaturated IBC 171 (155-355) mcg/dl Transferrin % Sat 17 (15-50) % Ferritin 112.7 (8-388) ng/ml Total Bilirubin 0.9 (0.2-1.0) mg/dl AST 19 (13-39) U/L ALT 15 (7-52) U/L Alkaline Phosphatase 64 (34-104) U/L Total Protein 6.9 (6.0-8.3) gm/dl Albumin 3.1 L (3.4-5.0) gm/dl Globulin 3.8 (2.5-4.0) gm/dl Albumin/Globulin Ratio 0.8 L (0.9-2) SARS-CoV-2, RNA, NAAT NEGATIVE (NEGATIVE) Blood Type A Positive Antibody Screen NEGATIVE Administered Medications Discontinued Medications Sodium Chloride (Nss) 1,000 mls @ 999 mls/hr IV .Q1H1M RAIZA Stop: 03/09/23 13:15 Last Infusion: 03/09/23 14:48 Dose: Infused Documented By: Admin: 03/09/23 13:15 Dose: 999 mls/hr Documented By: OMID Pantoprazole Sodium 40 mg/ (Syringe) 10 mls @ 5 mls/min IV NOW ONE Stop: 03/09/23 12:06 Last Admin: 03/09/23 13:15 Dose: 5 mls/min Documented By: OMID Magnesium Sulfate/Dextrose (Magnesium Sulfate / D5w) 1 gm in 100 mls @ 100 mls/hr IV NOW STA Stop: 03/09/23 14:21 Last Admin: 03/09/23 14:47 Dose: 100 mls/hr Documented By: OMID Discharge Plan Visit Data Chief Complaint: Weakness Stated Complaint: WEAKNESS, LETHARGIC, RECTAL BLEED ED Provider: Shruthi Soler Discharge Problem: Weakness, JOLIE (acute kidney injury), Hypomagnesemia, BRBPR (bright red blood per rectum) Forms Stand Alone Forms: My [facility] Prescriptions Prescriptions: No Action metoprolol succinate [Toprol XL] 100 mg tablet extended release 24 hr See Rx Instructions .ROUTE .COMPLEX Rx Instructions: TAKES 100 MG QAM, THEN 50 MG QHS. triamcinolone acetonide [Triderm] 0.1 % cream 1 applic topical BID PRN (Reason: Itching) lorazepam [Ativan] 0.5 mg tablet 0.5 mg PO BID PRN (Reason: Anxiety) glipizide [Glucotrol XL] 2.5 mg tablet extended release 24hr 2.5 mg PO DAILY Rx Instructions: TAKE 30 MINUTES PRIOR TO MEAL cyanocobalamin (vitamin B-12) [Vitamin B-12] 1,000 mcg Tablet 1,000 mcg PO DAILY polyethylene glycol 3350 [Miralax] 17 gram/dose powder 17 g PO DAILY PRN (Reason: Constipation) cholecalciferol (vitamin D3) [Vitamin D3] 1,000 unit Capsule 1,000 unit PO DAILY metformin 500 mg tablet 500 mg PO BIDM atorvastatin 80 mg tablet 80 mg PO QAM hydrocodone-acetaminophen 5-325 mg tablet 1 tab PO BID PRN (Reason: Pain, Severe) lisinopril 20 mg Tablet 20 mg PO DAILY amlodipine 2.5 mg tablet 2.5 mg PO QAM docusate sodium 100 mg Capsule 100 mg PO DAILY Rx Instructions: IF NEEDED MAY TAKE SECOND DOSE QPM. pantoprazole 40 mg Tablet,Delayed Release (Dr/Ec) 40 mg PO BID Qty: 60 0RF cefdinir 300 mg capsule 300 mg PO BID Qty: 6 0RF furosemide 40 mg tablet 40 mg 5XWK Referrals Referrals: Liliane Lobato DO [Primary Care Provider] -
[2023-03-09] MEDS ORDERED: SODIUM CHLORIDE 0.9% 1,000 ML IV SCH ×2 (12:15→21:53)
[2023-03-09 12:54] LABS: Basophils # (auto) 0.03 K/uL (0.00-0.20); Basophils % (auto) 0.5 %; Hematocrit (blood only) 25.8 % (37.0-47.0); Hemoglobin 7.9 g/dl (12.0-16.0); Immature Granulocytes # (auto) 0.05 K/uL (0.01-0.20); Immature Granulocytes % (auto) 0.8 %; Lymphocytes # (auto) 0.83 K/uL (1.20-3.40); Lymphocytes % (auto) 13.5 %; Mean Corpuscular Hemoglobin 28.7 pg (25.0-34.0); Mean Corpuscular Hgb Conc 30.6 g/dL (32.0-36.0); Mean Corpuscular Volume 93.8 fL (80.0-100.0); Mean Platelet Volume 10.9 fL (9.4-12.4); Neutrophils # (auto) 4.46 K/uL (1.40-6.50); Neutrophils % (auto) 72.2 %; Platelet Count 345 K/uL (130-400); RDW Coefficient of Variation 15.9 % (11.5-14.5); RDW Standard Deviation 53.7 fL (36.4-46.3); Red Blood Count 2.75 M/uL (4.20-5.40); White Blood Count 6.17 K/ul (4.8-10.8)
[2023-03-09 13:03] LABS: Albumin Globulin Ratio 0.8 (0.9-2); Albumin Level 3.1 gm/dl (3.4-5.0); BUN Creatinine Ratio 31.9 (10-20); Bilirubin,Total 0.9 mg/dl (0.2-1.0); Calcium 8.6 mg/dl (8.6-10.3); Creatinine Clr Calc Pharmacy 25.3 ml/min; Est GFR (African American) 38.5 ml/min; Est GFR (Non-African American) 33.2 ml/min; Globulin 3.8 gm/dl (2.5-4.0); Magnesium 1.5 mg/dl (1.7-2.4); Potassium 3.5 mmol/L (3.5-5.1); Total Protein 6.9 gm/dl (6.0-8.3)
[2023-03-09 13:18] LABS: Echinocytes 2+; Hypersegmented Neutrophils 1+; Poikilocytosis Present; Polychromasia 1+
[2023-03-09 13:20] LABS: INR 1.2 (0.9-1.1); Partial Thromboplastin Ratio 0.9; Partial Thromboplastin Time 24 Seconds (21-31); Prothrombin Time 12.5 Seconds (9.0-12.0)
[2023-03-09] MEDS ORDERED: MAGNESIUM SULFATE / D5W 1 GM/100 ML BAG IV STA (13:22)
[2023-03-09 15:00] LABS: Ferritin 112.7 ng/ml (8-388)
--- OUTSIDE RECORDS SUMMARY | 2023-03-09 15:55 | External Medical Summary ---
Author Name Unknown Address Unknown Organization [id number]:LABORATORY [facility] [place] - [address] [place] [address] Laboratory Report Ordering Provider Test Date Status TONYARAMPETERSON 03/07/2023 13:38:35 Final Observation Date Value Abnormality Reference (Units ) Status Iron 03/07/2023 13:38:35 29 Below low normal 33-151 (ug/dL) Final Iron-binding capacity 03/07/2023 13:38:35 219 Below low normal 250-425 (ug/dL) Final Transferrin Sat % 03/07/2023 13:38:35 13 Below low normal 15-55 (%) Final Performing Location LABORATORY [facility] [place] - [address] [place] [address]
--- OUTSIDE RECORDS SUMMARY | 2023-03-09 15:55 | External Medical Summary ---
Author Name Unknown Address Unknown Organization [id number]:LAB[facility]ATORY [facility] [place] [address] [place] [address] Laboratory Report Ordering Provider Test Date Status ORN JIMENEZ 03/07/2023 13:38:35 Final Observation Date Value Abnormality Reference (Units ) Status TSH 03/07/2023 13:38:35 3.53 0.27-4.20 (uIU/mL) Final Performing Location LABORATORY C - [address] [place] [address]
--- OUTSIDE RECORDS SUMMARY | 2023-03-09 15:55 | External Medical Summary | Summary of Care ---
Author Name Unknown Organization [facility] Address [address] [place] [address] Phone [phone] Care Team Providers Care Motor Rebuilder Name Role Phone Priyanka Falcon MD Primary Care Prov ider Reason for Visit * Reason Onset Date Comments Hospital Follow-Up 03/01/2023 Encounter Details Date Type Department Care Team (Late st Contact Info) Description 03/01/2023 Telephone General Internal Medicine [facility] [place] [address] [place] [address] Priyanka Falcon MD [address] [place] [address] [place] [id number] Hospital Follow-Up Allergies Active Allergy Reactions Criticality Noted Date Comments Naproxen Sodium Bleeding High 12/03/2009 Hs of GI bleed Aspirin Bleeding High 12/03/2009 Doxycycline Neuro complications (Please comment) Medium 10/23/2010 Hallucinations Ibuprofen Bleeding High 12/03/2009 Hx of GI bleed Nitrofurantoin Monohydrate Macrocrystals Neuro complications (Please comment) Low 09/16/2009 Headaches [id number]-[id number] 01/25/2011 Caused eye problems Neosporin 05/30/2003 rash Sulfa Antibiotics 05/11/2002 nausea & vomiting Tramadol Hcl Unknown 12/03/2009 Triamterene 11/16/2022 ulcers documented as of this encounter (statuses as of 03/02/2023) Medications Medication Sig Dispensed Refills Start Date [...] FOR ITCHING 30 g 2 05/28/2020 Active [employer] Verio In Vitro Strip (Glucose Blood)Indications: Type 2 diabetes mellitus with hemoglobin A1c goal of less than 7.5% (HCC) Use to test blood sugar once a day DX e11.9 100 Strip 3 05/14/2021 Active [employer] Verio Flex System w/Device KitIndications:Typ e 2 diabetes mellitus with hemoglobin A1c goal of less than 7.5% (HCC) Use as directed . Use to test blood sugar Dx e11.9 1 Kit 0 05/14/2021 Active Zoster Vac Recomb Adjuvanted 50 MCG/0.5ML [...] Tablet 1 09/08/2022 Active OneTouch Delica Plus [id number] ns:Type 2 diabetes mellitus with hemoglobin A1c goal of less than 7.5% ([facility]) Use as directed. Use to test blood [...] unspecified type ([facility]),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,jail current use of anticoagulant therapy,PAF (paroxysmal atrial fibrillation) ([facility]) TAKE 1-2 TABLETS BY MOUTH DAILY DIRECTED BY ANTICOAGULATION CLINIC 100 Tablet 3 12/05/2022 Active Additional Information Patient not taking.Reported on 03/02/2023 OneTouch Ultra In Vitro Strip (Glucose Blood)Indications: Type 2 diabetes mellitus with hemoglobin A1c goal of less than 7.0% ([facility]) USE TO TEST ONCE PER DAY. E11.9 [...] and Monday) 90 Tablet 3 01/19/2023 Active Metoprolol Succinate ER 100 MG Oral Tablet Extended Release 24 Hour (toPROL XL)Indications:Ess ential hypertension with goal blood pressure less than 140/90 TAKE 1 TABLET BY MOUTH IN THE MORNING AND 1/2 TABLET DAILY AT BEDTIME 135 Tablet 1 02/15/2023 Active documented as of this encounter (statuses as of 03/02/2023) Active Problems Problem Noted Date Diagnosed Date [...] as of this encounter (statuses as of 03/02/2023) Resolved Problems Problem Noted Date Diagnosed Date [...] as of this encounter (statuses as of 03/02/2023) Immunizations Name Administration Dates Next Due COVID-19 [...] IM (FLUAD) 12/12/2019 Seasonal Influenza, PF, 6 M & above, IM , (FluLaval or Fluzone) 12/26/2017,01/11/2017 Seasonal Influenza, Quadriva lent Hd (Fluzone [...] encounter Miscellaneous Notes * Telephone Encounter - Komal Nguyen OSA - 03/02/2023 2:18 PM EST Pt on move up list. No available time sooner right now * Telephone Encounter - Simran Harris RN - 03/02/2023 1:10 PM EST Can schedule VCE after consent. I see she has an appt with abdoul coming up. Anything sooner? * Telephone Encounter - Saad Romero RN - 03/01/2023 2:49 PM EST Patient discharged home from [facility] 02/28/23. GI consulted and recommend an outpatient video capsule to evaluate for AVMs. Please assist with this recommendation. Thank you documented in this encounter Plan of Treatment Upcoming Encounters Date Type Department Care Team (Late st Contact Info) Description 03/20/2023 10:30 AM EST Office Visit Cardiology, [facility] [address] [place] [address] Sofie Upton CRNP [address] [place] [phone] 03/20/2023 5:10 PM EST 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 Pharmacy, [address] [place] [address] [place] [address] 03/22/2023 1:00 PM EST Office Visit Nephrology [address] [place] [address] Carlene Kendrick MD [address] [facility] [place] [address] 03/30/2023 3:00 PM EST Office Visit Family Medicine [address] [place] [phone] Luanne Nielson PA-C [address] [place] [address] [place] [phone] 06/05/2023 2:00 PM EDT Office Visit Gastroenterology, [facility] [address] [place] [address] Abdoul Salgado CRNP [address] [place] [address] 07/04/2023 11:30 AM EDT Office Visit Family Medicine [address] [place] [phone] Liliane Lobato [address] [place] [address] 07/27/2023 1:30 PM EDT Office Visit Cardiology [address] [place] [address] Cameron Becerra PA-C [address] [place] [address] Health Maintenance Due Date Last Done Comments Hepatitis B (1 of 3 - Risk 3-dose series) 1994 Depression Screening 08/03/2021 08/03/2020 Diabetic Foot Exam 02/08/2023 02/08/2022, 0 05/28/2020, 05/17/2019, Additional history exists Diabetic Eye Exam 03/15/2023 03/15/2022, , 11/03/2020, Additional history exists HbA1c 07/20/2023 01/19/2023, 0908/2022, 12/03/2021, Additional history exists Albumin/Creatinine Ratio 11/17/2023 023, 03/29/2022, 01/06/2021, Additional history exists CKD HGB USE SMARTSET 06181 11/17/202311/16, 11/16/2022, 12/03/2021, Additional history exists CKD PHOS USE SMARTSET 98848 01/20/2024 11/0 11/2022, 11/21/2022, 01/06/2021, Additional history exists DXA Scan 12/09/2027 12/08/2020, 05/12, 05/30/2008 DTaP,Tdap,and Td Vaccines (2 - Td or Tdap) 11/28/2029 11/29/2019 (Declined), 09/11/2007, 09/11/2007 Pneumococcal Vaccine: 65+ Years Completed 07/29/2014, 10/07/2002 Zoster Vaccines Completed 09/08/2022, 03/15, 06/07/2010 Influenza Vaccine (FLU shot) Completed 08/2022, 12/27/2021, [...] filedocumented as of this encounter Care Teams Motor Rebuilder Relationship Specialty Start Date End Date Priyanka Falcon MD [address] [place] [address] [place] [id number] PCP - General Family Medicine 01/04/19 documented as of this encounter
--- OUTSIDE RECORDS SUMMARY | 2023-03-09 15:55 | External Medical Summary ---
Author Name Unknown Address Unknown Organization K01:LABORATORY [facility] [place] - [address] [place] [address] Laboratory Report Ordering Provider Test Date Status RNO JIMENEZ 03/07/2023 13:38:35 Final Observation Date Value Abnormality Reference (Units ) Status Vitamin B12 03/07/2023 13:38:35 1371 Above high normal 232-1245 (pg/mL) Final Performing Location LABORATORY C - [address] [place] [address]
--- OUTSIDE RECORDS SUMMARY | 2023-03-09 15:55 | External Medical Summary | Summary of Care ---
Author Name Unknown Organization [facility] Address [address] [place] [address] Phone [phone] Care Team Providers Care Product Safety Technical Assistant Name Role Phone Priyanka Falcon MD Primary Care Prov ider Reason for Visit * Reason Comments Outpatient Testing Encounter Details Date Type Department Care Team (Latest Contact Info) Description 03/07/2023 1:40 PM EST Laboratory Laboratory [address] [place] [phone] [place] [address] Gastrointestinal hemorrhage, unspecified gastrointestinal hemorrhage type; Chronic kidney disease, stage 3a (HCC) Allergies Active Allergy Reactions Criticality Noted Date Comments Naproxen Sodium Bleeding High 12/03/2009 Hs of GI bleed Aspirin Bleeding High 12/03/2009 Doxycycline Neuro complications (Please comment) Medium 10/23/2010 Hallucinations Ibuprofen Bleeding High 12/03/2009 Hx of GI bleed Nitrofurantoin Monohydrate Macrocrystals Neuro complications (Please comment) Low 09/16/2009 Headaches [id number]-Tf 01/25/2011 Caused eye problems Neosporin 05/30/2003 rash Sulfa Antibiotics 05/11/2002 nausea & vomiting Tramadol Hcl Unknown 12/03/2009 Triamterene 11/16/2022 ulcers documented as of this encounter (statuses as of 03/08/2023) Medications Medication Sig Dispensed Refills Start Date [...] FOR ITCHING 30 g 2 05/28/2020 Active [facility] Vitro Strip (Glucose Blood)Indications: Type 2 diabetes mellitus with hemoglobin A1c goal of less than 7.5% (HCC) Use to test blood sugar once a day DX e11.9 100 Strip 3 05/14/2021 Active [place] Verio Flex System w/Device KitIndications:Typ e 2 [...] Tablet 1 09/08/2022 Active OneTouch Delica Plus [id number] ns:Type 2 diabetes mellitus with hemoglobin A1c goal of less than 7.5% ([facility]) Use as directed. 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 E11.9 100 Strip 5 12/08/2022 Active glipiZIDE ER 2.5 MG Oral Tablet Extended Release 24 Hour (Glucotrol XL)Indications:Typ e 2 diabetes mellitus with hemoglobin A1c goal of less than 7.5% ([facility]) TAKE 1 TABLET BY MOUTH DAILY 30 [...] AT BEDTIME 135 Tablet 1 02/15/2023 Active Cefdinir 300 MG Oral Capsule (Omnicef) 1 Capsule. 0 02/28/2023 Active Pantoprazole Sodium 40 MG Oral Tablet Delayed Release (Protonix) 1 Tablet. 0 02/23/2023 Active documented as of this encounter (statuses as of 03/08/2023) Active Problems Problem Noted Date Diagnosed Date [...] as of this encounter (statuses as of 03/08/2023) Resolved Problems Problem Noted Date Diagnosed Date [...] as of this encounter (statuses as of 03/08/2023) Immunizations Name Administration Dates Next Due COVID-19 [...] 03/20/2023 10:30 AM EST Office Visit Cardiology, [facility] [address] [place] [address] Sofie Upton CRNP [address] [place] [address] 03/20/2023 5:10 PM EST 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 Pharmacy, [address] [place] [address] [place] [address] 03/22/2023 1:00 PM EST Office Visit Nephrology [address] [place] [address] [facility] [address] 03/30/2023 3:00 PM EST Office Visit Family Medicine [address] [phone] Luanne Nielson PA-C [address] [place] [address] [place] [address] 06/05/2023 2:00 PM EDT Office Visit Gastroenterology, [facility] [address] [place] [address] Jen Salgado CRNP [address] [place] [address] 07/04/2023 11:30 AM EDT Office Visit Family Medicine [address] [place] [phone] Liliane Lobato DO [address] [place] [address] [place] [address] 07/27/2023 1:30 PM EDT Office Visit Cardiology [address] [place] [address] Cameron Becerra PA-C [address] [place] [address] Health Maintenance Due Date Last Done Comments Hepatitis B (1 of 3 - Risk 3-dose series) 1994 Depression Screening 08/03/2021 08/03/2020 Diabetic Foot Exam 02/08/2023 02/08/2022, 0 05/28/2020, 05/17/2019, Additional history exists Diabetic Eye Exam 03/15/2023 03/15/2022, , 11/03/2020, Additional history exists HbA1c 07/20/2023 01/19/2023, 090 08/2022, 12/03/2021, Additional history exists Albumin/Creatinine Ratio 11/17/2023 023, 03/29/2022, 01/06/2021, Additional history exists CKD PHOS USE SMARTSET 52755 01/20/2024 11/0 11/2022, 11/21/2022, 01/06/2021, Additional history exists CKD HGB USE SMARTSET 54251 03/07/202403/07, 03/07/2023, 11/16/2022, Additional history exists DXA Scan 12/09/2027 12/08/2020, [...] Procedure Name Priority Date/Time Associated Diagnosis Comments ANEMIA REFLEX CHEMISTRY HOLD Routine 03/07/2023 1:38 PM EST Gastrointestinal hemorrhage, unspecified gastrointestinal hemorrhage type ANEMIA CBC Routine 03/07/2023 1:38 PM EST Gastrointestinal hemorrhage, unspecified gastrointestinal hemorrhage type DIFFERENTIAL, AUTOMATED Routine 03/07/2023 1:38 PM EST Gastrointestinal hemorrhage, unspecified gastrointestinal hemorrhage type DIFFERENTIAL, AUTOMATED Routine 03/07/2023 1:38 PM EST Gastrointestinal hemorrhage, unspecified gastrointestinal hemorrhage type RETICULOCYTE PANEL Routine 03/07/2023 1: 38 PM EST Gastrointestinal hemorrhage, unspecified gastrointestinal hemorrhage type BASIC METABOLIC PANEL Routine 03/07/2023 1:38 PM EST Chronic kidney disease, stage 3a (HCC) FOLIC ACID Routine 03/07/2023 1:38 PM EST Gastrointestinal hemorrhage, unspecified gastrointestinal hemorrhage type IRON SCREEN, INCLUDING TIBC Routine 03/07/2023 1:38 PM EST Gastrointestinal hemorrhage, unspecified gastrointestinal hemorrhage type TSH Routine 03/07/2023 1:38 PM EST Gastrointestinal hemorrhage, unspecified gastrointestinal hemorrhage type FERRITIN Routine 03/07/2023 1:38 PM EST Gastrointestinal hemorrhage, unspecified gastrointestinal hemorrhage type VITAMIN B12 Routine 03/07/2023 1:38 PM EST Gastrointestinal hemorrhage, unspecified gastrointestinal hemorrhage type documented in this encounter Results * (ABNORMAL) VITAMIN B12 (03/07/2023 1:38 PM EST) Vitamin B12 1,371(H) 232 - 1,245 pg/mL 03/08/2023 1:00 AM EST LABORATORY [facility] Blood Venous blood specimen / Unknown Venipuncture / Unknown 03/07/2023 1:38 PM EST 03/07/2023 1:38 PM EST Luanne Easton Gonzalesdianak PA-C LAB BLOOD ORDERABL ES Performing Organization Address [facility] Co de Phone Number LABORATORY C [address] [place] [address] * FOLIC ACID (03/07/2023 1:38 PM EST) Folic Acid 5.0 >4.5 ng/mL 03/08/2023 1:00 AM EST LABORATORY [facility] Blood Venous blood specimen / Unknown Venipuncture / Unknown 03/07/2023 1:38 PM EST 03/07/2023 1:38 PM EST Luanne Watkinsk PA-C LAB BLOOD ORDERABL ES Performing Organization Address [facility] Co de Phone Number LABORATORY [facility] [address] [place] [address] * TSH (03/07/2023 1:38 PM EST) TSH 3.53 0.27 - 4.20 uIU/mL 03/08/2023 1:00 AM EST LABORATORY [facility] Blood Venous blood specimen / Unknown Venipuncture / Unknown 03/07/2023 1:38 PM EST 03/07/2023 1:38 PM EST Luanne Easton Gonzalesdianak PA-C LAB BLOOD ORDERABL ES Performing Organization Address [facility] Co de Phone Number LABORATORY [facility] [address] [place] [address] * (ABNORMAL) FERRITIN (03/07/2023 1:38 PM EST) Ferritin 192(H) 13 - 150 ng/mL 03/08/2023 1:00 AM EST LABORATORY C Comment:Postmenopausal women have higher ferritin levels than pre-menopausal women. The above reference interval is based on pre-menopausal women. Blood Venous blood specimen / Unknown Venipuncture / Unknown 03/07/2023 1:38 PM EST 03/07/2023 1:38 PM EST Luanne YUN-C LAB BLOOD ORDERABL ES Performing Organization Address [facility] Co de Phone Number LABORATORY [facility] [address] [place] [address] * (ABNORMAL) IRON SCREEN, INCLUDING TIBC (03/07/2023 1:38 PM EST) Iron 29(L) 33 - 151 ug/dL 03/08/2023 12:22 AM EST LABORATORY [facility] Iron Binding Capacity 219(L) 250 - 425 ug/dL 03/08/2023 12:22 AM EST LABORATORY [facility] Transferrin Saturation Percent 13(L) 15 - 55 % 03/08/2023 12:22 AM EST LABORATORY C Blood Venous blood specimen / Unknown Venipuncture / Unknown 03/07/2023 1:38 PM EST 03/07/2023 1:38 PM EST Luanne YUN-C LAB BLOOD ORDERABL ES Performing Organization Address [facility] Co de Phone Number LABORATORY [facility] [address] [place] [address] * (ABNORMAL) RETICULOCYTE PANEL (03/07/2023 1:38 PM EST) Reticulocyte Percent 4.38(H) 0.80 - 1.90 % 03/07/2023 11:45 PM EST LAB[facility]ATORY [facility] Absolute Reticulocyte 107.7(H) 31.3 - 100.1 K/uL 03/07/2023 11:45 PM EST LABORATORY [facility] Immature Reticuloctye Fraction 38.6(H) 2.5 - 20.6 % 03/07/2023 11:45 PM EST LABORATORY [facility] Reticulocyte Hemoglobin 30.5 29.7 - 37.4 pg 03/07/2023 11:45 PM EST LAB[facility]ATORY [facility] Blood Venous blood specimen / Unknown Venipuncture / Unknown 03/07/2023 1:38 PM EST 03/07/2023 1:38 PM EST Luanne YUN-C LAB BLOOD ORDERABL ES Performing Organization Address City/[facility]/ZIP Co de Phone Number LABORATORY [facility] [address] [place] [address] * ANEMIA REFLEX CHEMISTRY HOLD (03/07/2023 1:38 PM EST) Blood Venous blood specimen / Unknown Venipuncture / Unknown 03/07/2023 1:38 PM EST 03/07/2023 1:38 PM EST Luanne YUN-Ken LAB BLOOD ORDERABL ES Performing Organization Address City/[facility]/ZIP Co de Phone Number LABORATORY [facility] [address] [place] [address] * (ABNORMAL) DIFFERENTIAL, AUTOMATED (03/07/2023 1:38 PM EST) WBC 5.92 4.00 - 10.80 K/uL 03/07/2023 11:43 PM EST LABORATORY [facility] Neutrophils % 70.8 40.0 - 75.0 % 03/07/2023 11:43 PM EST LAB[facility]ATORY [facility] Lymphocytes % 15.9(L) 18.0 - 42.0 % 03/07/2023 11:43 PM EST LAB[facility]ATORY [facility] Monocytes % 12.5(H) 1.0 - 11.0 % 03/07/2023 11:43 PM EST LAB[facility]ATORY [facility] Eosinophils % 0.0 0.0 - 6.0 % 03/07/2023 11:43 PM EST LAB[facility]ATORY [facility] Basophils % 0.3 0.0 - 2.0 % 03/07/2023 11:43 PM EST LAB[facility]ATORY [facility] Immature Granulocytes % 0.5 0.0 - 2.0 % 03/07/2023 11:43 PM EST LAB[facility]ATORY [facility] Absolute Neutrophils 4.19 1.80 - 7.70 K/uL 03/07/2023 11:43 PM EST LAB[facility]ATORY [facility] Absolute Lymphocytes 0.94(L) 1.00 - 4.80 K/ul 03/07/2023 11:43 PM EST LAB[facility]ATORY [facility] Absolute Monocytes 0.74 0.00 - 1.10 K/uL 03/07/2023 11:43 PM EST LAB[facility]ATORY [facility] Absolute Eosinophils 0.00 0.00 - 0.70 K/uL 03/07/2023 11:43 PM EST LAB[facility]ATORY [facility] Absolute Basophils 0.02 0.00 - 0.20 K/uL 03/07/2023 11:43 PM EST LABORATORY [facility] Absolute Immature Granulocytes 0.03 0.00 - 0.20 K/uL 03/07/2023 11:43 PM EST LAB[facility]ATORY [facility] Blood Venous blood specimen / Unknown Venipuncture / Unknown 03/07/2023 1:38 PM EST 03/07/2023 1:38 PM EST Luanne Nielson PA-C LAB BLOOD ORDERABL ES LAB[facility]ATORY [facility] [address] [place] [address] * (ABNORMAL) ANEMIA CBC (03/07/2023 1:38 PM EST) WBC 5.92 4.00 - 10.80 K/uL 03/07/2023 11:43 PM EST LAB[facility]ATORY [facility] RBC 2.47 3.85 - 5.15 M/uL 03/07/2023 11:43 PM EST LAB[facility]ATORY [facility] HGB 7.2(L) 12.0 - 15.3 g/dL 03/07/2023 11:43 PM EST LABORATORY [facility] Comment: Anemia reflex testing triggers on a HGB < 12.0 for Females and HGB < 13.0 for Males in accordance with the WHO Anemia Guidelines Anemia reflex testing triggers on a HGB < 12.0 for Females and HGB < 13.0 for Males in accordance with the WHO Anemia Guidelines HCT 25.2(L) 36.0 - 45.2 % 03/07/2023 11:43 PM EST LAB[facility]ATORY [facility] MCV 102.0 81.5 - 97.5 fL 03/07/2023 11:43 PM EST LAB[facility]ATORY [facility] MCH 29.1 27.0 - 34.0 pg 03/07/2023 11:43 PM EST LAB[facility]ATORY [facility] MCHC 28.6 32.0 - 36.0 g/dL 03/07/2023 11:43 PM EST LAB[facility]ATORY [facility] RDW 15.7 11.5 - 15.5 % 03/07/2023 11:43 PM EST LAB[facility]ATORY [facility] PLT 301 140 - 400 K/uL 03/07/2023 11:43 PM EST LAB[facility]ATORY [facility] MPV 11.8 6.6 - 11.1 fL 03/07/2023 11:43 PM EST LAB[facility]ATORY [facility] nRBCs 0 <=0 /100 WBCs 03/07/2023 11:43 PM EST LABORATORY [facility] Blood Venous blood specimen / Unknown Venipuncture / Unknown 03/07/2023 1:38 PM EST 03/07/2023 1:38 PM EST Luanne Nielson PA-C LAB BLOOD ORDERABL ES LABORATORY [facility] [address] [place] [address] * (ABNORMAL) BASIC METABOLIC PANEL (03/07/2023 1:38 PM EST) BUN 44(H) 6 - 20 mg/dL 03/08/2023 12:04 AM EST LAB[facility]ATORY [facility] Creatinine 1.4(H) 0.5 - 1.0 mg/dL 03/08/2023 12:04 AM EST LAB[facility]ATORY [facility] Estimated Glomerular Filtration Rate 36(L) >=60 mL/min 03/08/2023 12:04 AM EST LABORATORY [facility] Comment:eGFR is calculated b ased on the CKD-EPI 2020 equation Sodium 139 135 - 146 mmol/L 03/08/2023 12:04 AM EST LAB[facility]ATORY [facility] Potassium 3.6 3.5 - 5.1 mmol/L 03/08/2023 12:04 AM EST LAB[facility]ATORY [facility] Chloride 102 98 - 107 mmol/L 03/08/2023 12:04 AM EST LAB[facility]ATORY [facility] CO2 21(L) 22 - 32 mmol/L 03/08/2023 12:04 AM EST LAB[facility]ATORY [facility] Anion Gap 16(H) 7 - 15 mmol/L 03/08/2023 12:04 AM EST LAB[facility]ATORY [facility] Glucose 112 70 - 120 mg/dL 03/08/2023 12:04 AM EST LAB[facility]ATORY [facility] Calcium 8.3(L) 8.4 - 10.2 mg/dL 03/08/2023 12:04 AM EST LAB[facility]ATORY [facility] Blood Venous blood specimen / Unknown Venipuncture / Unknown 03/07/2023 1:38 PM EST 03/07/2023 1:38 PM EST Luanne Nielson PA-C LAB BLOOD ORDERABL ES LABORATORY [facility] [address] [facility] [place] [address] documented in this encounter Visit Diagnoses Diagnosis Gastrointestinal hemorrhage, unspecified gastrointestinal hemorrhage type Chronic kidney disease, stage 3a (HCC) documented in this encounter Care Teams Product Safety Technical Assistant Relationship Specialty Start Date End Date Priyanka Falcon MD [address] [place] [address] [place] [address] PCP - General Family Medicine 01/04/19 documented as of this encounter
--- OUTSIDE RECORDS SUMMARY | 2023-03-09 15:55 | External Medical Summary ---
Author Name Unknown Address Unknown Organization K01:LABORATORY [facility] [place] - [address] [facility] [address] Laboratory Report Ordering Provider Test Date Status ARAM JIMENEZPETERSON 03/07/2023 13:38:35 Final Observation Date Value Abnormality Reference (Units ) Status Ferritin 03/07/2023 13:38:35 192 Above high normal 13 -150 (ng/mL) Final Postmenopausal women have hi gher ferritin levels than pre-menopausal women. The above reference interval is based on pre-menopausal women. Performing Location LABORATORY [facility] [place] - [address] [place] [address]
--- OUTSIDE RECORDS SUMMARY | 2023-03-09 15:55 | External Medical Summary ---
Author Name Unknown Address Unknown Organization [id number]:LABORATORY [facility] [place] - [address] [place] [address] Laboratory Report Ordering Provider Test Date Status RON JIMENEZ 03/07/2023 13:38:35 Final Observation Date Value Abnormality Reference (Units ) Status Folic Acid 03/07/2023 13:38:35 5.0 >4.5 (ng/ mL) Final Performing Location LABORATORY [facility] - [address] [place] [address]
--- OUTSIDE RECORDS SUMMARY | 2023-03-09 15:55 | External Medical Summary | Summary of Care ---
Author Name Unknown Organization [facility] Address [address] [place] [address] Phone [phone] Care Team Providers Care Aerospace Engineer Officer Armament Name Role Phone Priyanka Falcon MD Primary Care Prov ider Reason for Visit * Reason Comments Outpatient Testing Encounter Details Date Type Department Care Team (Latest Contact Info) Description 03/07/2023 1:40 PM EST Laboratory Laboratory [address] [place] [phone] [place] [address] Gastrointestinal hemorrhage, unspecified gastrointestinal hemorrhage type; Chronic kidney disease, stage 3a (HCC) Allergies Active Allergy Reactions Criticality Noted Date Comments Naproxen Sodium Bleeding High 12/03/2009 Hs of GI bleed Aspirin Bleeding High 12/03/2009 Doxycycline Neuro complications (Please comment) Medium 10/23/2010 Hallucinations Ibuprofen Bleeding High 12/03/2009 Hx of GI bleed Nitrofurantoin Monohydrate Macrocrystals Neuro complications (Please comment) Low 09/16/2009 Headaches [id number]-[id number]-Os 01/25/2011 Caused eye problems Neosporin 05/30/2003 rash Sulfa Antibiotics 05/11/2002 nausea & vomiting Tramadol Hcl Unknown 12/03/2009 Triamterene 11/16/2022 ulcers documented as of this encounter (statuses as of 03/07/2023) Medications Medication Sig Dispensed Refills Start Date [...] FOR ITCHING 30 g 2 05/28/2020 Active [employer] Ver[employer] In Vitro Strip (Glucose Blood)Indications: Type 2 diabetes mellitus with hemoglobin A1c goal of less than 7.5% (HCC) Use to test blood sugar once a day DX e11.9 100 Strip 3 05/14/2021 Active [employer] Verio Flex System w/Device KitIndications:Typ e 2 [...] Tablet 1 09/08/2022 Active OneTouch Delica Plus [id number] ns:Type 2 diabetes mellitus with hemoglobin A1c [...] ([facility]),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,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,PAF (paroxysmal atrial fibrillation) ([facility]) TAKE 1-2 TABLETS BY MOUTH [...] as of this encounter (statuses as of 03/07/2023) Active Problems Problem Noted Date Diagnosed Date [...] as of this encounter (statuses as of 03/07/2023) Resolved Problems Problem Noted Date Diagnosed Date [...] as of this encounter (statuses as of 03/07/2023) Immunizations Name Administration Dates Next Due COVID-19 [...] 03/20/2023 10:30 AM EST Office Visit Cardiology, [facility] [address] [place] [address] Sofie Upton CRNP [address] [place] [address] 03/20/2023 5:10 PM EST 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 Pharmacy, [address] [place] [address] [place] [address] 03/22/2023 1:00 PM EST Office Visit Nephrology [address] [place] [address] [facility] [address] [facility] [address] 03/30/2023 3:00 PM EST Office Visit Family Medicine [address] [phone] Luanne Nielson PA-C [address] [place] [address] [place] [address] 06/05/2023 2:00 PM EDT Office Visit Gastroenterology, [facility] [address] [place] [address] Jen Salgado CRNP [address] [place] [address] 07/04/2023 11:30 AM EDT Office Visit Family Medicine [address] [place] [phone] Liliane Lobato DO [address] [place] [address] [place] [address] 07/27/2023 1:30 PM EDT Office Visit Cardiology [address] [place] [address] Cameron Becerra PA-C [address] [place] [phone] Pending Results Name Type Priority Associated Diagnoses Date /Time CBC WITH WBC DIFFERENTIAL AND ANEMIA REFLEX WORKUP Lab Routine Gastrointestinal hemorrhage, unspecified gastrointestinal hemorrhage type 03/07/2023 1:38 PM EST BASIC METABOLIC PANEL Lab Routine Chronic kidney disease, stage 3a (HCC) 03/07/2023 1:38 PM EST ANEMIA CBC Lab Routine Gastrointestinal hemorrhage, unspecified gastrointestinal hemorrhage type 03/07/2023 1:38 PM EST DIFFERENTIAL, AUTOMATED Lab Routine Gastrointestinal hemorrhage, unspecified gastrointestinal hemorrhage type 03/07/2023 1:38 PM EST ANEMIA REFLEX CHEMISTRY HOLD Lab Routine Gastrointestinal hemorrhage, unspecified gastrointestinal hemorrhage type 03/07/2023 1:38 PM EST Health Maintenance Due Date Last [...] Additional history exists CKD HGB USE SMARTSET 74582 11/17/202311/16, 11/16/2022, 12/03/2021, Additional history exists CKD PHOS USE SMARTSET 42051 01/20/2024 110 11/2022, 11/21/2022, 01/06/2021, Additional history [...] as of this encounter Visit Diagnoses Diagnosis Gastrointestinal hemorrhage, unspecified gastrointestinal hemorrhage type Chronic kidney disease, stage 3a (HCC) documented in this encounter Care Teams Aerospace Engineer Officer Armament Relationship Specialty Start Date End Date Priyanka Falcon MD [address] [place] [address] [place] [phone] PCP - General Family Medicine 01/04/19 documented as of this encounter
--- OUTSIDE RECORDS SUMMARY | 2023-03-09 15:55 | External Medical Summary ---
Author Name Unknown Address Unknown Organization K01:LABORATORY [facility] [place] [address] [facility] [address] Laboratory Report Ordering Provider Test Date Status RON JIMENEZ 03/07/2023 13:38:35 Final Observation Date Value Abnormality Reference (Units ) Status SYNC LEUKOCYTES IN BLOOD BY AUTOMATED COUNT 03/07/2023 13:38:35 5.92 4.00-10.80 (K/uL) Final Segs 03/07/2023 13:38:35 70.8 40.0-75.0 (%) Final Lymphs % 03/07/2023 13:38:35 15.9 Below low normal 18.0-42.0 (%) Final Monos 03/07/2023 13:38:35 12.5 Above high normal 1.0-11.0 (%) Final Eosinophils 03/07/2023 13:38:35 0.0 0.0-6.0 (%) Final Basos 03/07/2023 13:38:35 0.3 0.0-2.0 (%) Final Immature Granulocyte, Percent 03/07/2023 13:38:35 0.5 0.0-2.0 (%) Final Absolute Segs 03/07/2023 13:38:35 4.19 1.80-7.70 (K/uL) Final Lymphs, absolute 03/07/2023 13:38:35 0.94 Below low normal 1.00-4.80 (K/ul) Final Monos, Abs 03/07/2023 13:38:35 0.74 0.00-1.10 (K/uL) Final Eos, Abs 03/07/2023 13:38:35 0.00 0.00-0.70 (K/uL) Final Basos, Abs 03/07/2023 13:38:35 0.02 0.00-0.20 (K/uL) Final Immature Granulocytes, Number 03/07/2023 13:38:35 0.03 0.00-0.20 (K/uL) Final Performing Location LABORATORY [facility] [place] - [facility] [address] [facility] [address]
--- OUTSIDE RECORDS SUMMARY | 2023-03-09 15:55 | External Medical Summary | Summary of Care ---
Author Name Unknown Organization [facility] Address [address] [place] [address] Phone [phone] Care Team Providers Care Corporate Traffic Manager Name Role Phone Priyanka Falcon MD Primary Care Prov ider Reason for Visit * Reason Onset Date Comments Hospital Follow-Up 03/01/2023 Encounter Details Date Type Department Care Team (Late st Contact Info) Description 03/01/2023 Telephone General Internal Medicine [facility] [place] [address] [place] [address] Priyanka Falcon MD [address] [place] [address] [place] [address] Hospital Follow-Up Allergies Active Allergy Reactions Criticality Noted Date Comments Naproxen Sodium Bleeding High 12/03/2009 Hs of GI bleed Aspirin Bleeding High 12/03/2009 Doxycycline Neuro complications (Please comment) Medium 10/23/2010 Hallucinations Ibuprofen Bleeding High 12/03/2009 Hx of GI bleed Nitrofurantoin Monohydrate Macrocrystals Neuro complications (Please comment) Low 09/16/2009 Headaches Kpwetnhr-Mubnixwfh-Pl 01/25/2011 Caused eye problems Neosporin 05/30/2003 rash Sulfa Antibiotics 05/11/2002 nausea & vomiting Tramadol Hcl Unknown 12/03/2009 Triamterene 11/16/2022 ulcers documented as of this encounter (statuses as of 03/01/2023) Medications Medication Sig Dispensed Refills Start Date [...] FOR ITCHING 30 g 2 05/28/2020 Active [employer] Verio In Vitro Strip (Glucose Blood)Indications: Type 2 diabetes mellitus with hemoglobin A1c goal of less than 7.5% (HCC) Use to test blood sugar once a day DX e11.9 100 Strip 3 05/14/2021 Active Enviviouch Verio Flex System w/Device KitIndications:Typ e 2 [...] Tablet 1 09/08/2022 Active OneTouch Delica Plus [id number] ns:Type 2 diabetes mellitus with hemoglobin A1c [...] unspecified type ([facility]),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,residential current use [...] as of this encounter (statuses as of 03/01/2023) Active Problems Problem Noted Date Diagnosed Date [...] as of this encounter (statuses as of 03/01/2023) Resolved Problems Problem Noted Date Diagnosed Date [...] as of this encounter (statuses as of 03/01/2023) Immunizations Name Administration Dates Next Due COVID-19 [...] Miscellaneous Notes * Telephone Encounter - Freda Curtis, [facility] - 03/01/2023 4:21 PM EST Noted by [facility] records reviewed. Cardio f/u scheduled for 03/20. Looking towards transitioning toEliquis at that time. Call placed to f/u then. Patient Phone Numbers Called and spoke to patient to review plan. Patient expressed understanding. Reviewed upcoming appointments. Freda Curtis RP, PharmD Clinical Pharmacist - Graphics Production Specialist Medication Therapy [facility] 03/01/2023, 4:24 PM Ph.[phone] * Telephone Encounter - Saad Romero RN - 03/01/2023 2:52 PM EST FYI--Patient discharged home from [facility] after treatment for GIB. INR 7.7 on admission. 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 has been placed on hold. Cardiology is discussing/evaluating resumption when H/H is stable. Kalani documented in this encounter Plan of Treatment Upcoming Encounters Date Type Department Care Team (Late st Contact Info) Description 03/02/2023 11:20 AM EST Office Visit Family Medicine [address] [place] [phone] Luanne Nielson PA-C [address] [place] [address] [place] [phone] 03/20/2023 10:30 AM EST Office Visit Cardiology, [facility] [address] [place] [address] Sofie Upton CRNP [address] [place] [address] 03/20/2023 5:10 PM EST 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 Pharmacy, [address] [place] [address] [place] [address] 03/22/2023 1:00 PM EST Office Visit Nephrology [address] [place] [address] Carlene Kendrick MD [address] [place] [address] 07/04/2023 11:30 AM EDT Office Visit Family Medicine [address] [place] [phone] Liliane Lobato[address] [place] [address] 07/27/2023 1:30 PM EDT Office Visit Cardiology [address] [place] [address] Cameron Becerra PA-C [address] [place] [address] Health Maintenance Due Date Last Done Comments Hepatitis B (1 of 3 - Risk 3-dose series) 1994 Depression Screening 08/03/2021 08/03/2020 Diabetic Foot Exam 02/08/2023 02/08/2022, 0 05/28/2020, 05/17/2019, Additional history exists Diabetic Eye Exam 03/15/2023 03/15/2022, , 11/03/2020, Additional history exists HbA1c 07/20/2023 01/19/2023, 0908/2022, 12/03/2021, Additional history exists Albumin/Creatinine Ratio 11/17/20232 023, 03/29/2022, 01/06/2021, Additional history exists CKD HGB USE SMARTSET 72900 11/17/202311/16, 11/16/2022, 12/03/2021, Additional history exists CKD PHOS USE SMARTSET 14325 01/20/2024 11/0 11/2022, 11/21/2022, 01/06/2021, Additional history [...] filedocumented as of this encounter Care Teams Corporate Traffic Manager Relationship Specialty Start Date End Date Priyanka Falcon MD [address] [place] [address] [place] [phone] PCP - General Family Medicine 01/04/19 documented as of this encounter
--- OUTSIDE RECORDS SUMMARY | 2023-03-09 15:55 | External Medical Summary | Summary of Care ---
Author Name Unknown Organization [facility] Address [address] [place] [address] Phone [phone] Care Team Providers Care Paraffin Plant Sweater Operator Name Role Phone Priyanka Falcon MD Primary Care Prov ider Reason for Visit * Reason Onset Date Comments Hospital Follow-Up 03/01/2023 Encounter Details Date Type Department Care Team (Late st Contact Info) Description 03/01/2023 Telephone General Internal Medicine [facility] [place] [address] [place] [address] Priyanka Falcon MD [address] [place] [address] [place] [address] Hospital Follow-Up Allergies Active Allergy Reactions Criticality Noted Date Comments Naproxen Sodium Bleeding High 12/03/2009 Hs of GI bleed Aspirin Bleeding High 12/03/2009 Doxycycline Neuro complications (Please comment) Medium 10/23/2010 Hallucinations Ibuprofen Bleeding High 12/03/2009 Hx of GI bleed Nitrofurantoin Monohydrate Macrocrystals Neuro complications (Please comment) Low 09/16/2009 Headaches Yqdmzejb-Nxespazyn-Zs 01/25/2011 Caused eye problems Neosporin 05/30/2003 rash [...] FOR ITCHING 30 g 2 05/28/2020 Active LC [employer] Verio In Vitro Strip (Glucose Blood)Indications: Type 2 diabetes mellitus with hemoglobin A1c goal of less than 7.5% (HCC) Use to test blood sugar once a day DX e11.9 100 Strip 3 05/14/2021 Active AudioTripuch Verio Flex System w/Device KitIndications:Typ e 2 [...] Tablet 1 09/08/2022 Active OneTouch Delica Plus [id number] ns:Type 2 diabetes mellitus with hemoglobin A1c [...] (Coumadin)Indicati ons:Atrial flutter, unspecified type ([facility]),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,jail current use of anticoagulant [...] encounter Miscellaneous Notes * Telephone Encounter - Rain Narvaez LPN - 03/01/2023 3:20 PM EST Lab order placed. Please schedule pt per the note below and notify of lab order. Thanks. * Telephone Encounter - Saad Romero RN - 03/01/2023 2:46 PM EST Patient discharged home from [facility] 02/28/23. Nephrology consulted and recommends: hospital d/c appt w/ me in 3-4 wks after hospital d/c to reeval BP; nephro nurse to order bmp to be done before or at visit. Please assist with these recommendations. Thank you documented in this encounter Plan of Treatment Upcoming Encounters Date Type Department Care Team (Late st Contact Info) Description 03/02/2023 11:20 AM EST Office Visit Family [address] [place] [phone] Luanne Nielson PA-C [address] [place] [address] [place] [address] 03/08/2023 2:00 PM EST 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 Pharmacy, [address] [place] [address] [place] [address] 03/20/2023 10:30 AM EST Office Visit Cardiology, [facility] [address] [address] Sofie Upton CRNP [address] [place] [address] 03/22/2023 1:00 PM EST Office Visit Nephrology [address] [place] [address] Carlene Kendrick MD 200 [facility] [place] [address] 07/04/2023 11:30 AM EDT Office Visit Family [address] [place] [address] [place] [address] 07/27/2023 1:30 PM EDT Office Visit Cardiology [address] [place] [address] Cameron Becerra PA-C [address] [place] [address] Scheduled Orders Name Type Priority Associated Diagnoses Orde r Schedule BASIC METABOLIC PANEL Lab Routine UTI (urinary tract infection) Abnormal laboratory test result Expected: 03/15/2023 (Approximate), Expires: 03/01/2024 Health Maintenance Due Date Last Done Comments Hepatitis B (1 of 3 - Risk 3-dose series) 1994 Depression Screening 08/03/2021 08/03/2020 Diabetic Foot Exam 02/08/2023 02/08/2022, 0 05/28/2020, 05/17/2019, Additional history exists Diabetic Eye Exam 03/15/2023 03/15/2022, , 11/03/2020, Additional history exists HbA1c 07/20/2023 01/19/2023, 08/2022, 12/03/2021, Additional history exists Albumin/Creatinine Ratio 11/17/2023 023, 03/29/2022, 01/06/2021, Additional history exists CKD HGB USE SMARTSET 36137 11/17/202311/16, 11/16/2022, 12/03/2021, Additional history exists CKD PHOS USE SMARTSET 86412 01/20/202411/2022, 11/21/2022, 01/06/2021, Additional history exists DXA Scan [...] as of this encounter Visit Diagnoses Diagnosis UTI (urinary tract infection)- Primary Urinary tract infection, site not specified Abnormal laboratory test result Other abnormal clinical finding documented in this encounter Care Teams Paraffin Plant Sweater Operator Relationship Specialty Start Date End Date Pryianka Falcon MD [address] [place] [address] [place] [address] PCP - General Family Medicine 01/04/19 documented as of this encounter
--- OUTSIDE RECORDS SUMMARY | 2023-03-09 15:55 | External Medical Summary | Summary of Care ---
Author Name Unknown Organization [facility] Address [address] [place] [address] Phone [phone] Care Team Providers Care Senior Assistant Manager Name Role Phone Priyanka Falcon MD Primary Care Prov ider Reason for Visit * Reason Onset Date Comments Appointment 02/28/2023 Encounter Details Date Type Department Care Team (Late st Contact Info) Description 02/28/2023 Telephone Cardiology, [facility] [address] [place] [address] Sofie Upton CRNP [address] [place] [address] Appointment Allergies Active Allergy Reactions Criticality Noted Date Comments Naproxen Sodium Bleeding High 12/03/2009 Hs of GI bleed Aspirin Bleeding High 12/03/2009 Doxycycline Neuro complications (Please comment) Medium 10/23/2010 Hallucinations Ibuprofen Bleeding High 12/03/2009 Hx of GI bleed Nitrofurantoin Monohydrate Macrocrystals Neuro complications (Please comment) Low 09/16/2009 Headaches Frqricjh-Ehksxqwri-Ee 01/25/2011 Caused eye problems Neosporin 05/30/2003 rash [...] FOR ITCHING 30 g 2 05/28/2020 Active [employer]p Verio In Vitro Strip (Glucose Blood)Indications: Type 2 diabetes mellitus with hemoglobin A1c goal of less than 7.5% (HCC) Use to test blood sugar once a day DX e11.9 100 Strip 3 05/14/2021 Active Sun [employer] Verio Flex System w/Device KitIndications:Typ e 2 [...] Tablet 1 09/08/2022 Active OneTouch Delica Plus [id number] ns:Type 2 diabetes mellitus with hemoglobin A1c goal of less than 7.5% ([facility]) Use as directed. Use to test [...] Oral Tablet (Coumadin)Indicati ons:Atrial flutter, unspecified type (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) TAKE 1-2 TABLETS BY MOUTH DAILY DIRECTED BY ANTICOAGULATION CLINIC 100 Tablet 3 12/05/2022 Active OneTouch Ultra In Vitro Strip (Glucose Blood)Indications: Type 2 diabetes mellitus with hemoglobin A1c goal of less than 7.0% ([facility]) USE TO TEST ONCE PER DAY. E11.9 100 Strip 5 12/08/2022 Active glipiZIDE ER 2.5 MG Oral Tablet Extended Release 24 Hour (Glucotrol XL)Indications:Typ e 2 diabetes mellitus with hemoglobin A1c goal of less than 7.5% ([facility]) TAKE 1 TABLET BY MOUTH DAILY [...] Telephone Encounter - Azucena Banuelos CMA - 03/02/2023 9:29 AM EST Spoke with pt, she is unable to make that appt. Requested an afternoon appt. She has multiple appts coming up, please check before scheduling so it doesn't conflict with other appts. * Telephone Encounter - Azucena Banuelos CMA - 03/01/2023 11:40 AM EST No answer and no voicemail set up. Tried calling alternate number and it was not in service. * Telephone Encounter - Radha Conn OSA - 02/28/2023 9:24 PM EST HD appt scheduled for 03/20/23 at 10:30 with Sofie Upton at . [facility] does not have any openings anywhere until August. Labs are walk in, Pt just needs made aware. * Telephone Encounter - Romi Zelaya CMA - 02/28/2023 3:47 PM EST Please schedule for appointment and labs. * Telephone Encounter - Sofie Upton CRNP - 02/28/2023 1:53 PM EST Patient admitted 02/20/23 for acute GI bleed in the setting of Flu A and a supratheurapetic INR of 7.7. Will need hospital discharge follow up in 3-4 weeks, typically sees [facility] Becerra PA-C at [facility]. Labs to be done in one week (CBC and BMP) documented in this encounter Plan of Treatment Upcoming Encounters Date Type Department Care Team (Late st Contact Info) Description 03/02/2023 11:20 AM EST [address] [phone] Luanne Nielson PA-C [address] [place] [address] [place] [address] 03/20/2023 10:30 AM EST Office Visit Cardiology, [facility] [address] [place] [address] Sofie Upton CRNP [address] [place] [address] 03/20/2023 5:10 PM EST 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 Pharmacy, [address] [place] [address] [place] [address] 03/22/2023 1:00 PM EST Office Visit Nephrology [address] [place] [address] Carlene Kendrick MD 200 [facility] [address] 07/04/2023 11:30 AM EDT Office Visit Family Medicine [address] [place] [phone] Liliane Lobato, [address] [place] [address] 07/27/2023 1:30 PM EDT Office Visit Cardiology [address] [place] [address] Cameron Becerra PA-C [address] [place] [address] Scheduled Orders Name Type Priority Associated Diagnoses Orde r Schedule CBC Lab Routine Persistent atrial fibrillation (HCC) Gastrointestinal hemorrhage, unspecified gastrointestinal hemorrhage type Supratherapeutic INR Expected: 03/07/2023, Expires: 02/29/2024 BASIC METABOLIC PANEL Lab Routine Persistent atrial fibrillation (HCC) Gastrointestinal hemorrhage, unspecified gastrointestinal hemorrhage type Supratherapeutic INR Expected: 03/07/2023, Expires: 02/29/2024 Health Maintenance Due Date Last Done Comments Hepatitis B (1 of 3 - Risk 3-dose series) 1994 Depression Screening 08/03/2021 08/03/2020 Diabetic Foot Exam 02/08/2023 02/08/2022, 0 05/28/2020, 05/17/2019, Additional history exists Diabetic Eye Exam 03/15/2023 03/15/2022, , 11/03/2020, Additional history exists HbA1c 07/20/2023 01/19/2023, 08/2022, 12/03/2021, Additional history exists Albumin/Creatinine Ratio 11/17/2023 023, 03/29/2022, 01/06/2021, Additional history exists CKD HGB USE SMARTSET 49014 11/17/202311/16, 11/16/2022, 12/03/2021, Additional history exists CKD PHOS USE SMARTSET 25452 01/20/2024 110 11/2022, 11/21/2022, 01/06/2021, Additional history [...] of this encounter Visit Diagnoses Diagnosis Persistent atrial fibrillation (HCC)- Primary Atrial fibrillation Gastrointestinal hemorrhage, unspecified gastrointestinal hemorrhage type Supratherapeutic INR Abnormal coagulation profile documented in this encounter Care Teams Senior Assistant Manager Relationship Specialty Start Date End Date Priyanka Falcon MD [address] [place] [address] [place] [phone] PCP - General Family Medicine 01/04/19 documented as of this encounter
--- OUTSIDE RECORDS SUMMARY | 2023-03-09 15:55 | External Medical Summary | Summary of Care ---
Author Name Unknown Organization [facility] Address [address] [place] [address] Phone [phone] Care Team Providers Care Sub Master Name Role Phone Priyanka Falcon MD Primary Care Prov ider Reason for Referral * Evaluate & Treat - Unlimited Visits (Within 10 days (routine)) - Authorized Specialty Diagnoses / Procedures Referred By Controry osorio Referred To Contact Gastroenterology Diagnoses Gastrointestinal hemorrhage, unspecified gastrointestinal hemorrhage type Luanne Nielson PA-C [address] [place] [address] [place] [id number] Referral ID Status Reason Start Date Expiration Date Visits Requested Visits Authorized [id number] Authorized Specialty Services Required 3 [phone] Question Answer Referral Priority Within 10 days (routine) Where should this appointment be scheduled? [facility] For what condition is the patient being referred? All Gastro Conditions Comments GI bleed - video capsule rec by GI, at ER Reason for Visit * Reason Onset Date Comments Hospital Follow-Up [facility] Follow-Up 03/02/2023 Encounter Details Date Type Department Care Team (Latest Contact Info) Description 03/02/2023 11:20 AM EST Office Visit Family Medicine [facility] [address] [place] [phone] Luanne Nileson PA-C [address] [place] [address] [place] [phone] Gastrointestinal hemorrhage, unspecified gastrointestinal hemorrhage type*; Hospital discharge follow-up; Typical atrial flutter (HCC); Chronic kidney disease, stage 3a ([facility]); Essential hypertension with goal blood pressure less than 140/90; PAF (paroxysmal atrial fibrillation) ([facility]) Allergies Active Allergy Reactions Criticality Noted Date Comments Naproxen Sodium Bleeding High 12/03/2009 Hs of GI bleed Aspirin Bleeding High 12/03/2009 Doxycycline Neuro complications (Please comment) Medium 10/23/2010 Hallucinations Ibuprofen Bleeding High 12/03/2009 Hx of GI bleed Nitrofurantoin Monohydrate Macrocrystals Neuro complications (Please comment) Low 09/16/2009 Headaches Aevzlffn-Bsdkskgqt-Dc 01/25/2011 Caused eye problems Neosporin 05/30/2003 rash [...] FOR ITCHING 30 g 2 05/28/2020 Active [employer] Verio In Vitro Strip (Glucose Blood)Indications: Type 2 diabetes mellitus with hemoglobin A1c goal of less than 7.5% ([facility]) Use to test blood sugar once a day DX e11.9 100 Strip 3 05/14/2021 Active Twitt2goTouch Verio Flex System w/Device KitIndications:Typ e 2 diabetes mellitus with hemoglobin A1c goal of less than 7.5% ([facility]) Use as directed . Use to [...] [facility]) TAKE 1 TABLET BY MOUTH TWICE A DAY WITH BREAKFAST AND SUPPER 180 Tablet 1 09/08/2022 Active OneTouch Delica Plus [id number] ns:Type 2 diabetes mellitus with hemoglobin A1c [...] ons:Atrial flutter, unspecified type (HCC),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,snf current use of anticoagulant therapy,PAF (paroxysmal atrial fibrillation) ([facility]) TAKE 1-2 TABLETS BY MOUTH DAILY DIRECTED BY ANTICOAGULATION CLINIC 100 Tablet 3 12/05/2022 Active Additional Information Patient not taking.Reported on 03/02/2023 [place] Ultra In Vitro Strip (Glucose Blood)Indications: Type [...] Sign Reading Time Taken Comments Blood Pressure 118/50 03/02/2023 11:23 AM EST Pulse 84 03/02/2023 11:23 AM EST Temperature 36.7 C (98 F) 03/02/2023 11:23 AM EST Respiratory Rate - - Oxygen Saturation 98% 03/02/2023 11:23 AM EST Inhaled Oxygen Concentration - - Weight 67.9 kg (149 lb 9.6 oz) 03/02/2023 11:23 AM EST Height - - Body Mass Index 27.35 12/08/2022 2:23 PM EDT documented in this encounter Progress Notes * Luanne Nielson PA-C - 03/02/2023 11:16 AM EST Nursing Notes: Sophia Mazariegos LPN 03/02/23 1126 Addendum Chief Complaint Patient presents with Hospital Follow-Up [facility] hospital Folow up Adm date:02/20/23 Discharge date:02/27/23 Dx:Acute GI bleed, INfluenza A, and Melena, UTI Treatment: Warfarin, Cefdinir and Pantoprazole Cardiology apt 03/20/2023 Nephrology apt 03/22/2023 Hospital Notes States Need GI Apt. NO APT. REF PENDED.wants to go to [facility]. NEEDS EGD Does have LAB orders for CBC and BMP on 03/07/23 The patient has been properly identified by confirmation of name and date of . Pt here today for hospital FU. Pt went to [facility] on 02/20 with weakness, diarrhea, blood in stool. Her INR was 7.7. she has bene on abx for UTI and felt that this interfered with her coumadin. Coumadinis on hold. HGB was 9.7 on admission and dropped to 7.3 while in hospital. EGD and colonoscopy was ok. GI was consulted and thought that she may have some AVMs in the small bowel that may be causing t he bleeding. She was told to have this scheduled as an outpt. She is taking protonix for this. Daughter wants to stop coumadin. She has FU appt with cardiology on 03/20 and it looks like they will discuss, at that time, transitioning to eliquis. INR, on discharge, was 1.7. She was also found to be inacute on chronic kidney failure. She has FU with nephrology in a couple of weeks. BP controlled today. Pt also tested positive for influenza A. She is feeling better. Still weak. Pt has no new concerns at this time. She is due to have labs, early next week. Pt denies chest pain, SOB. She still has a slight cough. Pt denies abdominal pain, blood in stool, fever, chills. Review of patient's allergies indicates: Allergen Reactions Aleve [Naproxen Sodium] Bleeding Hs of GI bleed Aspirin Bleeding Ibuprofen Bleeding Hx of GI bleed Doxycycline Neuro complications (Please comment) Hallucinations Zxijapeo-Xblqrnsdt-Cr [Qqrhdyye-Qtaeufhkf-Rf] Caused eye problems Neosporin rash Sulfa Antibiotics [...] blood sugar Dx e11.9 1 Kit 0 Zoster Vac Recomb Adjuvanted 50 MCG/0.5ML Intramuscular Suspension Reconstituted (Shingrix) Inject 0.5 mL into a large muscle now and repeat dose in 60 to 180 days (Patient not taking: Reported on 01/19/2023) 1 Each 1 Lisinopril 20 MG Oral Tablet (Prinivil) [...] DAY WITH BREAKFAST ANDSUPPER 180 Tablet 1 OneTouch Delica Plus [id number] Use as directed. Use to test blood [...] (skip Monday and Monday) 90 Tablet 3 Metoprolol Succinate ER 100 MG Oral Tablet Extended Release 24 Hour (toPROL XL) TAKE 1 TABLET BY MOUTH IN THE MORNING AND 1/2 TABLET DAILY AT BEDTIME 135 Tablet 1 No current facility-administered medications for this visit. 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 Tobacco Use Smoking status: Never Smokeless tobacco: Never Vaping Use Vaping Use: Never used Substance and Sexual Activity Alcohol use: Yes Comment: occassional wine/beer- rare Drug use: No Sexual activity: Not Currently [...] Resource Strain: Not on file Food Insecurity: No Food Insecurity (08/22/2019) Hunger Vital Sign Worried About Running Out of Food in the Last Year: Never true Ran Out of Food in the Last Year: Never true Transportation Needs: Not on file Physical Activity: Not on file Stress: Not on file Social Connections: Not on file Intimate Partner Violence: Not on file Housing Stability: Not on file O:Blood pressure 118/50, pulse 84, temperature 36.7 C (98 F), temperature source Tympanic, weight 67.9 kg (149 lb 9.6 oz), SpO2 98%. GENERAL: alert, healthy, and no distress NECK: supple, no adenopathy, no bruits, thyroid normal size, non-tender, without nodularity EYES: conjunctiva are pink and non-injected, sclera clear HEART: regular rate & rhythm, no murmur, and no gallops LUNGS: chest symmetric with normal AP diameter, no chest deformities noted, no chest wall tenderness, lungs clear to auscultation EXTREMITIES: no edema ABDOMEN: abdomen soft, non-tender, normal bowel sounds, and no masses or organomegaly A:Gastrointestinal hemorrhage, unspecified gastrointestinal hemorrhage type (Primary) - ADULT GASTROENTEROLOGY REFERRAL OP - DISCH MED RECON CUR MED LIS - CBC WITH WBC DIFFERENTIAL AND ANEMIA REFLEX WORKUP; Future; Expected date: 03/02/2023 Hospital discharge follow-up - DISCH MED RECON CUR MED LIS Typical atrial flutter (HCC) Chronic kidney disease, stage 3a (HCC) - BASIC METABOLIC PANEL; Future; Expected date: 03/02/2023 Essential hypertension with goal blood pressure less than 140/90 PAF (paroxysmal atrial fibrillation) (HCC) Refer to GI for video capsule. Keep upcoming appts. Any questions/problems, please call. If anything changes, worsens, develops new sx, please call [facility]. Follow Up: Return in 4 weeks (on 03/30/2023), or if symptoms worsen or fail to improve. Luanne Nielson PA-C documented in this encounter Nursing Notes * Sophia Mazariegos LPN - 03/02/2023 11:13 AM EST Chief Complaint Patient presents with Hospital Follow-Up [facility] hospital Folow up Adm date:02/20/23 Discharge date:02/27/23 Dx:Acute GI bleed, INfluenza A, and Melena, UTI Treatment: Warfarin, Cefdinir and Pantoprazole Cardiology apt 03/20/2023 Nephrology apt 03/22/2023 Hospital Notes States Need GI Apt. NO APT. REF PENDED.wants to go to [facility]. NEEDS EGD Does have LAB orders for CBC and BMP on 03/07/23 The patient has been properly identified by confirmation of name and date of . documented in this encounter Plan of Treatment Upcoming Encounters Date Type Department Care Team (Late st Contact Info) Description 03/20/2023 10:30 AM EST Office Visit Cardiology, [facility] [address] [place] [address] Sofie Upton CRNP [address] [place] [address] 03/20/2023 5:10 PM EST 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 Pharmacy, [address] [place] [address] [place] [address] 03/22/2023 1:00 PM EST Office Visit Nephrology [address] [place] [address] Carlene Kendrick MD [facility] [place] [address] 03/30/2023 3:00 PM EST Office Visit Family Medicine [address] [place] [phone] Luanne Nielson PA-C [address] [place] [address] [place] [address] 06/05/2023 2:00 PM EDT Office Visit Gastroenterology, [facility] [address] [place] [address] Jen Salgado CRNP [address] [place] [address] 07/04/2023 11:30 AM EDT Office Visit Family Medicine [address] [place] [phone] [place] [address] 07/27/2023 1:30 PM EDT Office Visit Cardiology [address] [place] [address] Cameron Becerra PA-C [address] [place] [address] Scheduled Orders Name Type Priority Associated Diagnoses Orde r Schedule CBC WITH WBC DIFFERENTIAL AND ANEMIA REFLEX WORKUP Lab Routine Gastrointestinal hemorrhage, unspecified gastrointestinal hemorrhage type Expected: 03/02/2023 (Approximate), Expires: 03/02/2024 BASIC METABOLIC PANEL Lab Routine Chronic kidney disease, stage 3a (HCC) Expected: 03/02/2023 (Approximate), Expires: 03/01/2024 Scheduled Referrals Name Type Priority Associated Diagnoses Orde r Schedule ADULT GASTROENTEROLOGY REFERRAL OP Referral Within 10 days (routine) Gastrointestinal hemorrhage, unspecified gastrointestinal hemorrhage type Ordered: 03/02/2023 Health Maintenance Due Date Last Done Comments Hepatitis B (1 of 3 - Risk 3-dose series) 1994 Depression Screening 08/03/2021 08/03/2020 Diabetic Foot Exam 02/08/2023 02/08/2022, 0 05/28/2020, 05/17/2019, Additional history exists Diabetic Eye Exam 03/15/2023 03/15/2022, , 11/03/2020, Additional history exists HbA1c 07/20/2023 01/19/2023, 0908/2022, 12/03/2021, Additional history exists Albumin/Creatinine Ratio 11/17/20232 023, 03/29/2022, 01/06/2021, Additional history exists CKD HGB USE SMARTSET 49707 11/17/202311/16, 11/16/2022, 12/03/2021, Additional history exists CKD PHOS USE SMARTSET 28761 01/20/2024 11/0 11/2022, 11/21/2022, 01/06/2021, Additional history [...] Diagnoses Diagnosis Gastrointestinal hemorrhage, unspecified gastrointestinal hemorrhage type- Primary Hospital discharge follow-up Other follow-up examination Typical atrial flutter (HCC) Atrial flutter Chronic kidney disease, stage 3a (HCC) Essential hypertension with goal blood pressure less than 140/90 PAF (paroxysmal atrial fibrillation) (HCC) Atrial fibrillation documented in this encounter Care Teams Sub Master Relationship Specialty Start Date End Date Priyanka Falcon MD [address] [place] [address] [place] [id number] PCP - General Family Medicine 01/04/19 documented as of this encounter
--- OUTSIDE RECORDS SUMMARY | 2023-03-09 15:55 | External Medical Summary ---
Author Name Unknown Address Unknown Organization K01:[facility] [address] [address] Laboratory Report Ordering Provider Test Date Status STEPHEN JIMENEZEric 03/07/2023 13:38:35 Final Observation Date Value Abnormality Reference (Units ) Status Retic, % (auto) 03/07/2023 13:38:35 4.38 Above high normal 0.80-1.90 (%) Final Reticulocytes, Absolute 03/07/2023 13:38:35 107.7 Above high normal 31.3-100.1 (K/uL) Final Reticulocyte fraction, immature 03/07/2023 13:38:35 38.6 Above high normal 2.5-20.6 (%) Final Reticulocyte HGB 03/07/2023 13:38:35 30.5 29.7-37.4 (pg) Final Performing Location [facility] - [address] [place] [address]
--- OUTSIDE RECORDS SUMMARY | 2023-03-09 15:56 | External Medical Summary | Summary of Care ---
Author Name Unknown Organization [facility] Address [address] [place] [address] Phone [phone] Care Team Providers Care Fur Plucker Name Role Phone Priyanka Falcon MD Primary Care Prov ider Encounter Details Date Type Department Care Team (Late st Contact Info) Description 02/27/2023 Orders Only Gastroenterology, [facility] [address] [place] [address] Alyson Tineo, [address] [place] [address] Allergies Active Allergy Reactions Criticality Noted Date Comments Naproxen Sodium Bleeding High 12/03/2009 Hs of GI bleed Aspirin Bleeding High 12/03/2009 Doxycycline Neuro complications (Please comment) Medium 10/23/2010 Hallucinations Ibuprofen Bleeding High 12/03/2009 Hx of GI bleed Nitrofurantoin Monohydrate Macrocrystals Neuro complications (Please comment) Low 09/16/2009 Headaches Vbrbssns-Zcqnebtnx-Qi 01/25/2011 Caused eye problems Neosporin 05/30/2003 rash Sulfa Antibiotics 05/11/2002 nausea & vomiting Tramadol Hcl Unknown 12/03/2009 Triamterene 11/16/2022 ulcers documented as of this encounter (statuses as of 02/27/2023) Medications Medication Sig Dispensed Refills Start Date [...] FOR ITCHING 30 g 2 05/28/2020 Active [employer] Verio In Vitro Strip (Glucose Blood)Indications: Type 2 diabetes mellitus with hemoglobin A1c goal of less than 7.5% (HCC) Use to test blood sugar once a day DX e11.9 100 Strip 3 05/14/2021 Active SingleFeedTouch Verio Flex System w/Device KitIndications:Typ e 2 [...] Tablet 1 09/08/2022 Active OneTouch Delica Plus [id number] ns:Type 2 diabetes mellitus with hemoglobin A1c goal of less than 7.5% ([facility]) Use as directed. 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 [...] as of this encounter (statuses as of 02/27/2023) Active Problems Problem Noted Date Diagnosed Date [...] as of this encounter (statuses as of 02/27/2023) Resolved Problems Problem Noted Date Diagnosed Date [...] as of this encounter (statuses as of 02/27/2023) Immunizations Name Administration Dates Next Due COVID-19 [...] Care Team (Late st Contact Info) Description 03/08/2023 2:00 PM EST 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 Pharmacy, [address] [place] [address] [place] [address] 07/04/2023 11:30 AM EDT Office Visit Family Medicine [address] [place] [phone] Liliane L[address] [place] [address] 07/27/2023 1:30 PM EDT Office Visit Cardiology [address] [place] [address] Cameron Becerra PA-C [address] [place] [address] Health Maintenance Due Date Last Done Comments [...] Additional history exists CKD HGB USE SMARTSET 99776 11/17/202311/16, 11/16/2022, 12/03/2021, Additional history exists CKD PHOS USE SMARTSET 69943 01/20/2024 110 11/2022, 11/21/2022, 01/06/2021, Additional history [...] Procedure Name Priority Date/Time Associated Diagnosis Comments UPPER GI ENDOSCOPY 02/27/2023 documented in this encounter Results * UPPER GI ENDOSCOPY (02/27/2023) 02/27/2023 Alyson Tineo DO GASTRO UPPER documented in this encounter Care Teams Fur Plucker Relationship Specialty Start Date End Date Priyanka Falcon MD [address] [place] [address] [place] [address] PCP - General Family Medicine 01/04/19 documented as of this encounter
--- OUTSIDE RECORDS SUMMARY | 2023-03-09 15:56 | External Medical Summary | Summary of Care ---
Author Name Unknown Organization [facility] Address [address] [place] [address] Phone [phone] Care Team Providers Care Relocation Counselor Name Role Phone Priyanka aFlcon MD Primary Care Prov ider Reason for Visit * Reason Onset Date Comments Appointment 02/28/2023 Encounter Details Date Type Department Care Team (Late st Contact Info) Description 02/28/2023 Telephone Cardiology, [facility] [address] [place] [address] Sofie Upton CRNP [address] [place] [phone] Appointment Allergies Active Allergy Reactions Criticality Noted Date Comments Naproxen Sodium Bleeding High 12/03/2009 Hs of GI bleed Aspirin Bleeding High 12/03/2009 Doxycycline Neuro complications (Please comment) Medium 10/23/2010 Hallucinations Ibuprofen Bleeding High 12/03/2009 Hx of GI bleed Nitrofurantoin Monohydrate Macrocrystals Neuro complications (Please comment) Low 09/16/2009 Headaches Erbngdkq-Ypecktfgl-Xk 01/25/2011 Caused eye problems Neosporin 05/30/2003 rash Sulfa Antibiotics 05/11/2002 nausea & vomiting Tramadol Hcl Unknown 12/03/2009 Triamterene 11/16/2022 ulcers documented as of this encounter (statuses as of 02/28/2023) Medications Medication Sig Dispensed Refills Start Date [...] 30 g 2 05/28/2020 Active [employer] Verio In Vitro Strip (Glucose Blood)Indications: Type 2 diabetes mellitus with hemoglobin A1c goal of less than 7.5% (HCC) Use to test blood sugar once a day DX e11.9 100 Strip 3 05/14/2021 Active [employer] Verio Flex System w/Device KitIndications:Typ e 2 [...] Tablet 1 09/08/2022 Active OneTouch Delica Plus [id number] ns:Type 2 diabetes mellitus with hemoglobin A1c goal of less than 7.5% ([facility]) Use as directed. 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 E11.9 100 Strip 5 12/08/2022 Active glipiZIDE ER 2.5 MG Oral Tablet Extended Release 24 Hour (Glucotrol XL)Indications:Typ e 2 diabetes mellitus with hemoglobin A1c goal of less than 7.5% ([facility]) TAKE 1 TABLET BY MOUTH [...] as of this encounter (statuses as of 02/28/2023) Active Problems Problem Noted Date Diagnosed Date [...] as of this encounter (statuses as of 02/28/2023) Resolved Problems Problem Noted Date Diagnosed Date [...] as of this encounter (statuses as of 02/28/2023) Immunizations Name Administration Dates Next Due COVID-19 [...] encounter Miscellaneous Notes * Telephone Encounter - Radha Conn OSA - 02/28/2023 9:24 PM EST HD appt scheduled for 03/20/23 at 10:30 with Sofie pUton at . Cameron does not have any [...] weeks, typically sees Cameron Becerra PA-C at [facility]. Labs to be done in one week (CBC and BMP) documented in this encounter Plan of Treatment Upcoming Encounters Date Type Department Care Team (Late st Contact Info) Description 03/02/2023 11:20 AM EST Office Visit Family Medicine [address] [place] [phone] Luanne Nielson PA-C [address] [place] [address] [place] [address] 03/08/2023 2:00 PM EST 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 Pharmacy, [address] [place] [address] [place] [address] 03/20/2023 10:30 AM EST Office Visit Cardiology, [facility] [address] [facility] [place] [address] Sofie Upton CRNP [address] [place] [address] 07/04/2023 11:30 AM EDT Office Visit Family Medicine [address] [place] [phone] Liliane L[address] [place] [address] 07/27/2023 1:30 PM EDT Office Visit Cardiology [address] [place] [address] Cameron Becerra PA-C [address] [place] [address] Scheduled Orders Name Type Priority Associated Diagnoses [...] 08/2022, 12/03/2021, Additional history exists Albumin/Creatinine Ratio 11/17/20232 023, 03/29/2022, 01/06/2021, Additional history exists CKD HGB USE SMARTSET 68947 11/17/202311/16, 11/16/2022, 12/03/2021, Additional history exists CKD PHOS USE SMARTSET 63491 01/20/2024 110 11/2022, 11/21/2022, 01/06/2021, Additional history [...] profile documented in this encounter Care Teams Relocation Counselor Relationship Specialty Start Date End Date Priyanka Falcon MD [address] [place] [address] [place] [address] PCP - General Family Medicine 01/04/19 documented as of this encounter
--- OUTSIDE RECORDS SUMMARY | 2023-03-09 15:56 | External Medical Summary | Summary of Care ---
Author Name Unknown Organization [facility] Address [address] [place] [address] Phone [phone] Care Team Providers Care Correctional Therapy Teacher Name Role Phone Priyanka Falcon MD Primary Care Prov ider Reason for Visit * Reason Onset Date Comments Appointment 02/28/2023 Encounter Details Date Type Department Care Team (Late st Contact Info) Description 02/28/2023 Telephone Cardiology, [facility] [address] [place] [phone] Sofie Upton CRNP [address] [place] [address] Appointment Allergies Active Allergy Reactions Criticality Noted Date Comments Naproxen Sodium Bleeding High 12/03/2009 Hs of GI bleed Aspirin Bleeding High 12/03/2009 Doxycycline Neuro complications (Please comment) Medium 10/23/2010 Hallucinations Ibuprofen Bleeding High 12/03/2009 Hx of GI bleed Nitrofurantoin Monohydrate Macrocrystals Neuro complications (Please comment) Low 09/16/2009 Headaches Yvpyhveb-Shihwbmsa-Mp 01/25/2011 Caused eye problems Neosporin 05/30/2003 rash [...] FOR ITCHING 30 g 2 05/28/2020 Active Monesbat Verio In Vitro Strip (Glucose Blood)Indications: Type 2 diabetes mellitus with hemoglobin A1c goal of less than 7.5% (HCC) Use to test blood sugar once a day DX e11.9 100 Strip 3 05/14/2021 Active [employer] Verio Flex System w/Device KitIndications:Typ e 2 [...] Tablet 1 09/08/2022 Active OneTouch Delica Plus [id number] ns:Type 2 diabetes mellitus with hemoglobin A1c [...] (Coumadin)Indicati ons:Atrial flutter, unspecified type ([facility]),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,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 Labs to be done in one week (CBC and BMP) documented in this encounter Plan of Treatment Upcoming Encounters Date Type Department Care Team (Late st Contact Info) Description 03/02/2023 11:20 AM EST Office Visit Family Medicine [address] [place] [phone] Luanne Nielson PA-C [address] [place] [address] [place] [phone] 03/08/2023 2:00 PM EST 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 Pharmacy, [address] [place] [address] [place] [address] 03/20/2023 10:30 AM EST Office Visit Cardiology, [facility] [address] [place] [address] Sofie Upton CRNP [address] [place] [address] 07/04/2023 11:30 AM EDT Office Visit Family Medicine [address] [place] [phone] [address] [place] [address] 07/27/2023 1:30 PM EDT Office Visit Cardiology [address] [place] [address] Cameron Becerra PA-C [address] [place] [address] Scheduled Orders Name Type Priority Associated Diagnoses [...] Additional history exists CKD HGB USE SMARTSET 55523 11/17/202311/16, 11/16/2022, 12/03/2021, Additional history exists CKD PHOS USE SMARTSET 34098 01/20/2024 11/0 11/2022, 11/21/2022, 01/06/2021, Additional history [...] profile documented in this encounter Care Teams Correctional Therapy Teacher Relationship Specialty Start Date End Date Priyanka Falcon MD [address] [place] [address] [place] [phone] PCP - General Family Medicine 01/04/19 documented as of this encounter
[2023-03-09 16:47] LABS: Adenovirus PCR Not Detected (NotDetected); Bordetella parapertussis PCR Not Detected (NotDetected); Bordetella pertussis PCR Not Detected (NotDetected); Chlamydia pneumoniae PCR Not Detected (NotDetected); Coronavirus 229E PCR Not Detected (NotDetected); Coronavirus CoV-2 (COVID19)PCR Not Detected (NotDetected); Coronavirus HKU1 PCR Not Detected (NotDetected); Coronavirus NL63 PCR Not Detected (NotDetected); Coronavirus OC43PCR Not Detected (NotDetected); Human Metapneumovirus PCR Not Detected (NotDetected); Influenza A PCR Not Detected (NotDetected); Influenza B PCR Not Detected (NotDetected); Mycoplasma pneumoniae PCR Not Detected (NotDetected); Parainfluenza Virus 1 PCR Not Detected (NotDetected); Parainfluenza Virus 2 PCR Not Detected (NotDetected); Parainfluenza Virus 3 PCR Not Detected (NotDetected); Parainfluenza Virus 4 PCR Not Detected (NotDetected); Respiratory Syncytial VirusPCR Not Detected (NotDetected); Rhinovirus/Enterovirus PCR Not Detected (NotDetected)
--- NOTE | 2023-03-09 16:51 | History & Physical Report ---
Date of Service March 09, 2023 Assessment & Plan (1) Weakness: Plan: Admit to [facility] Patient presenting from home with reports of generalized weakness and episode of bright red bleeding per rectum. Recently admitted to [facility] for anemia and GI bleeding in the setting of supratherapeutic INR. Patient likely would benefit from rehab stay, patient and son agreeable. PT/OT, possible DC to [facility] tomorrow (2) Anemia: (3) BRBPR (bright red blood per rectum): Plan: Recently admitted to [facility] 02/20 through 02/28 for GI bleeding in the setting of supratherapeutic INR. Patient underwent EGD that was unremarkable and colonoscopy that showed diverticulosis and internal hemorrhoids. Outpatient video capsule endoscopy study was recommended. Patient's Coumadin was also discontinued. Hgb 7.3 on 02/28 --> 7.2 on 03/07 on outpatient labs --> 7.9 today Episode of BRBPR today likely due to internal hemorrhoids in the setting of constipation No indication for transfusion Will start iron replacement Bowel regimen Continue to monitor H&H (4) JOLIE (acute kidney injury): Plan: Mild, creatinine 1.4 (1.0 on 02/28) Likely due to decreased p.o. intake Hold diuretics, ACEi, gentle IVF, follow-up renal functions (5) Persistent atrial fibrillation: Plan: Rate controlled on metoprolol Coumadin recently discontinued as above (6) Chronic diastolic CHF (congestive heart failure): Plan: Holding diuretics for now due to mild JOLIE, resume as able (7) Diabetes mellitus type 2 in obese: Plan: Hgb A1c 8.5 02/2023 Hold oral agents and utilize NovoLog per protocol while hospitalized (8) Hypertension: Plan: BP controlled, continue amlodipine, metoprolol. Holding lisinopril as above (9) Hyperlipidemia: Plan: Chronic, stable Continue statin DVT PROPHYLAXIS SCDs due to anemia and recent GI bleeding Patient seen in collaboration with Dr. Grijalva. I spent a total of 75 minutes coordinating, documenting, and providing care for this patient excluding time spent in the performance of separately billed services. This included personally reviewing all current laboratories and imaging studies, medication reconciliation, outpatient chart review, and discussion with specialists. History of Present Illness Chief Complaint: Generalized weakness, bright red bleeding per rectum Primary Care Provider: Liliane Lobato DO 87-year-old female PMH persistent atrial fibrillation (Coumadin recently discontinued in the setting of GI bleeding), nonsustained V. tach, paroxysmal SVT, paroxysmal atrial tachycardia, tricuspid regurgitation, mitral regurgitation, chronic diastolic CHF, CKD stage III, DM type II, HLD, HTN, history of breast cancer s/p left mastectomy, and other problems listed below who presents to the ED for evaluation of generalized weakness and episode of bright red bleeding per rectum. History obtained from the patient and her son who is the bedside as well as review of recent inpatient records and outpatient PCP and cardiology records. Patient recently admitted to [facility] 02/20 through 02/28 for GI bleeding in the setting of supratherapeutic INR. Patient underwent EGD that was unremarkable and colonoscopy that showed diverticulosis and internal hemorrhoids. Outpatient video capsule endoscopy study was recommended. Patient's Coumadin was also discontinued. Since arriving home, patient has been generally weak, son reports that she is sleeping several hours per day. Patient has had a very poor appetite. This morning, patient reports that she was straining to have a bowel movement and subsequently had an episode of bright red bleeding per rectum with formed, hard stool. Due to ongoing generalized weakness and this episode of bleeding, EMS was called and patient was brought to the ED for further evaluation. Of note, patient had outpatient labs on 03/07 that showed Hgb 7.2. Patient denies chest pain and shortness of breath. No lightheadedness, dizziness, diaphoresis, syncopal events. She denies any falls. No abdominal pain, nausea, vomiting, diarrhea. She denies fevers and chills. No urinary symptoms. In the ED, Hgb 7.9. Patient is hemodynamically stable. Patient was given magnesium replacement, IV PPI, IVF. Allergies Allergy/AdvReac Type Severity Reaction Status Date / Time tramadol Allergy Severe HALLUCINATIONS-PER Verified 03/09/23 15:34 GMG bacitracin Allergy Mild CAUSED EYE Verified 03/09/23 15:34 PROBLEMS neomycin Allergy Mild Rash Verified 03/09/23 15:34 polymyxin B Allergy Mild CAUSED EYE Verified 03/09/23 15:34 PROBLEMS Aminoglycosides Allergy Unknown Unknown Verified 03/09/23 15:34 aspirin AdvReac Severe HX OF GI Verified 02/20/23 16:07 BLEED ibuprofen AdvReac Severe HX OF GI Verified 03/09/23 15:34 BLEED naproxen [From Aleve] AdvReac Severe HX OF GI Verified 03/09/23 15:34 BLEED NSAIDS (Non-Steroidal AdvReac Severe HX OF GI Verified 03/09/23 15:34 Anti-Inflamma BLEED doxycycline AdvReac Intermediate HALLUCINATI Verified 03/09/23 15:34 ONS nitrofurantoin AdvReac Intermediate HEADACHES Verified 03/09/23 15:34 [From Macrobid] Sulfa (Sulfonamide AdvReac Intermediate NAUSEA, Verified 03/09/23 15:34 Antibiotics) VOMITING, BAD HEADACHE triamterene AdvReac Intermediate ULCERS Verified 03/09/23 15:34 Home Medications Medication Instructions Recorded Confirmed Type cholecalciferol (vitamin D3) 25 1,000 unit PO DAILY 12/29/18 03/09/23 History mcg (1,000 unit) capsule (Vitamin D3) cyanocobalamin (vitamin B-12) 1,000 mcg PO DAILY 12/29/18 03/09/23 History 1,000 mcg tablet (Vitamin B-12) glipizide 2.5 mg tablet, extended 2.5 mg PO DAILY 12/29/18 03/09/23 History release 24 hr (Glucotrol XL) lorazepam 0.5 mg tablet (Ativan) 0.5 mg PO BID PRN Anxiety 12/29/18 03/09/23 History metoprolol succinate 100 mg 100 mg PO QAM 12/29/18 03/09/23 History tablet,extended release 24 hr (Toprol XL) polyethylene glycol 3350 17 17 g PO DAILY PRN Constipation 12/29/18 03/09/23 History gram/dose oral powder (Miralax) triamcinolone acetonide 0.1 % 1 applic topical BID PRN Itching 12/29/18 03/09/23 History topical cream (Triderm) amlodipine 2.5 mg tablet 2.5 mg PO QAM 02/20/23 03/09/23 History atorvastatin 80 mg tablet 80 mg PO QAM 02/20/23 03/09/23 History docusate sodium 100 mg capsule 100 mg PO DAILY 02/20/23 03/09/23 History hydrocodone 5 mg-acetaminophen 325 1 tab PO BID PRN Pain, Severe 02/20/23 History mg tablet lisinopril 20 mg tablet 20 mg PO DAILY 02/20/23 03/09/23 History metformin 500 mg tablet 500 mg PO BIDM 02/20/23 03/09/23 History pantoprazole 40 mg tablet,delayed 40 mg PO BID #60 tabs 02/23/23 03/09/23 Rx release furosemide 40 mg tablet 40 mg PO 5XWK 02/28/23 03/09/23 History metoprolol succinate 100 mg 50 mg PO QPM 03/09/23 03/09/23 History tablet,extended release 24 hr Past Med/Surg History Medical History Persistent atrial fibrillation Nonsustained ventricular tachycardia Paroxysmal SVT (supraventricular tachycardia) Paroxysmal atrial tachycardia Tricuspid regurgitation Mitral regurgitation Chronic diastolic CHF (congestive heart failure) CKD (chronic kidney disease) stage 3, GFR 30-59 ml/min Diabetes mellitus type 2 in obese History of breast cancer Hyperlipidemia Hypertension Surgical History History of partial mastectomy of left breast History of appendectomy H/O bilateral oophorectomy S/P JAYNE (total abdominal hysterectomy) Bilateral cataracts Family History Other No significant family history Social History Smoking Status: Never smoker Hx Alcohol Use: Yes Alcohol type: wine Hx Substance Use: No Preferred Language: Uzbek Communication Ability: Effective Elementary Spanish Teacher Required: No Beliefs That Will Affect Care: None Current Living Situation: Alone current occupational status: retired Feels Safe at Home: Yes Assistive Devices: None, Cane and Walker Physical Exam Constitutional: WD/WN, vitals as above no acute distress Eyes: PERRL, conjunctivae normal, anicteric sclerae ENMT: external ear and nose normal, oropharynx normal Respiratory: normal respiratory effort, lungs clear to auscultation Cardiovascular: Rate/Rhythm: regular rate and + irregularly irregular Vessels: normal peripheral pulses Extremities: no edema Gastrointestinal (Abdomen): normal bowel sounds, soft, nontender, no hepatosplenomegaly Musculoskeletal: no cyanosis or clubbing, extremities motor strength 5/5 Skin: no rashes, warm and dry Neurologic: PERRL, EOMI, accommodation nl, no face palsy, no dysarthria Psychiatric: A+Ox3, euthymic affect Results & Data Results & Data Vital Signs (Past 12 Hours) Vital Signs Temp Pulse Pulse Resp BP BP Pulse Ox 03/09/23 16:05 77 22 95/58 L 97 03/09/23 15:05 78 22 113/51 L 95 03/09/23 12:45 79 03/09/23 12:08 85 20 99 03/09/23 12:02 36.4 C L 76 20 106/60 99 O2 Del Method 03/09/23 16:05 Room Air 03/09/23 15:05 Room Air 03/09/23 12:45 03/09/23 12:08 Room Air 03/09/23 12:02 Room Air Laboratory Results Short CBC 03/09/23 Range/Units 12:25 WBC 6.17 (4.8-10.8) K/ul Hgb 7.9 L (12.0-16.0) g/dl Hct 25.8 L (37.0-47.0) % Plt Count 345 (130-400) K/uL BMP 03/09/23 12:25 Sodium 140 Potassium 3.5 Chloride 106 Carbon Dioxide 23 BUN 45 H Creatinine 1.41 H Glucose 123 H Calcium 8.6 Liver Function 03/09/23 Range/Units 12:25 Total Bilirubin 0.9 (0.2-1.0) mg/dl AST 19 (13-39) U/L ALT 15 (7-52) U/L Alkaline Phosphatase 64 (34-104) U/L Albumin 3.1 L (3.4-5.0) gm/dl Code Status & VTE Plan VTE Prophylaxis Plan VTE Prophylaxis will be ordered: Yes Supervising Physician Co-Signing Physician Notes Attending addendum: The patient was seen and examined in emergency room in presence of the family member She has been having on and off blood in the stool for the last 3 weeks Getting generally weak and lethargic with exertional shortness of breath Was sent in by PCP to evaluate rectal bleed Denies any significant symptom On examination Lying in bed comfortably and looks pale Hemodynamically stable with blood pressure on the lower side at 95/58 Chest-clear to auscultate bilaterally Heart-S1-S2, regular Abdomen-benign, bowel sound present Extremities-negative for any edema Her admission labs and EKG reviewed Hemoglobin has not dropped from that of ninth of this month She has been having constipation and bloody bowel movement seems to be from hemorrhoidal bleed She will be admitted and her hemoglobin will be monitored Agree with assessment and plan as outlined above by Kimberly Grijalva
[2023-03-09] MEDS ORDERED: GLUCOSE 10 TAB/TUBE PO PRN (21:53)
[2023-03-09] MEDS ORDERED: ACETAMINOPHEN 325 MG TAB PO PRN (21:53)
[2023-03-09] MEDS ORDERED: GLUCAGON FOR INJ 1 MG VIAL SQ PRN (21:53)
[2023-03-09] MEDS ORDERED: DEXTROSE 50% 50 ML SYRINGE IV PRN (21:53)
[2023-03-09] MEDS ORDERED: GLUCOSE 40% GEL 15 GM TUBE PO PRN (21:53)
[2023-03-09] MEDS ORDERED: CARBOHYDRATES FOR HYPOGLYCEMIA PO PRN (21:53)
[2023-03-09] MEDS: INSULIN ASPART PER UNIT CHARGE SC SCH (22:09)
[2023-03-09] MEDS: METOPROLOL SUCC 50MG EXT REL TAB PO SCH (22:26)
[2023-03-09] MEDS: DOCUSATE SODIUM 100 MG CAP PO SCH (22:26)
[2023-03-09] MEDS: PANTOprazole 40 MG TAB PO SCH (22:27)
[2023-03-09] MEDS: FERROUS SULFATE 325 MG TAB PO SCH (22:27)
--- OUTSIDE RECORDS SUMMARY | 2023-03-09 23:13 | External Medical Summary | Summary of Care ---
Author Name Unknown Organization [facility] Address [address] [place] [address] Phone [phone] Care Team Providers Care Wood Carving Lathe Operator Name Role Phone Priyanka Falcon MD Primary Care Prov ider Reason for Referral * Precert (Within 10 days (routine)) - Authorized Specialty Diagnoses / Procedures Referred By Contac t Referred To Contact Radiology Diagnoses Iron deficiency anemia, unspecified iron deficiency anemia type Occult blood positive stool Procedures VIDEO CAPSULE ENDOSCOPY Priyanka Falcon MD [address] [place] [address] [place] [id number] Referral ID Status Reason Start Date Expiration Date V isits Requested Visits Authorized [id number] Authorized 03/09/2023 999 999 Reason for Visit * Reason Onset Date Comments Hospital Follow-Up 03/01/2023 Order Request 03/01/2023 VCE order Encounter Details Date Type Department Care Team (Late st Contact Info) Description 03/01/2023 Telephone General Internal Medicine [facility] [address] [place] [address] Priyanka Falcon MD [address] [place] [address] [place] [phone] Hospital Follow-Up; Order Request (VCE ord... Allergies Active Allergy Reactions Criticality Noted Date Comments Naproxen Sodium Bleeding High 12/03/2009 Hs of GI bleed Aspirin Bleeding High 12/03/2009 Doxycycline Neuro complications (Please comment) Medium 10/23/2010 Hallucinations Ibuprofen Bleeding High 12/03/2009 Hx of GI bleed Nitrofurantoin Monohydrate Macrocrystals Neuro complications (Please comment) Low 09/16/2009 Headaches Eyjiepbm-Ywvngvngs-Jp 01/25/2011 Caused eye problems Neosporin 05/30/2003 rash Sulfa Antibiotics 05/11/2002 nausea & vomiting Tramadol Hcl Unknown 12/03/2009 Triamterene 11/16/2022 ulcers documented as of this encounter (statuses as of 03/09/2023) Medications Medication Sig Dispensed Refills Start Date [...] FOR ITCHING 30 g 2 05/28/2020 Active MyFitio In Vitro Strip (Glucose Blood)Indications: Type 2 diabetes mellitus with hemoglobin A1c goal of less than 7.5% (HCC) Use to test blood sugar once a day DX e11.9 100 Strip 3 05/14/2021 Active [employer] Verio Flex System w/Device KitIndications:Typ e 2 [...] Tablet 1 09/08/2022 Active OneTouch Delica Plus [id number] ns:Type 2 diabetes mellitus with hemoglobin A1c [...] ([facility]),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,senior care current use of anticoagulant therapy,PAF (paroxysmal atrial fibrillation) ([facility]) TAKE 1-2 TABLETS BY MOUTH DAILY DIRECTED BY ANTICOAGULATION CLINIC 100 Tablet 3 12/05/2022 Active Additional Information Patient not taking.Reported on 03/02/2023 Rx Systems PFTouch Ultra In Vitro Strip (Glucose Blood)Indications: Type [...] as of this encounter (statuses as of 03/09/2023) Active Problems Problem Noted Date Diagnosed Date [...] as of this encounter (statuses as of 03/09/2023) Resolved Problems Problem Noted Date Diagnosed Date [...] as of this encounter (statuses as of 03/09/2023) Immunizations Name Administration Dates Next Due COVID-19 [...] as of this encounter Miscellaneous Notes * Addendum Note - Nehemias Ramirez CRNP - 03/09/2023 1:22 PM ESTAddended by: NEHEMIAS RAMIREZ on: 03/09/2023 01:22 PM Modules accepted: Orders * Telephone Encounter - Nehemias Ramirez CRNP - 03/09/2023 1:19 PM EST Will order VCE for acute blood loss anemia * Addendum Note - Meenu Perez LPN - 03/09/2023 12:45 PM ESTAddended by: MEENU PEREZ on: 03/09/2023 12:45 PM Modules accepted: Orders * Telephone Encounter - Meenu Perez LPN - 03/09/2023 12:42 PM EST Nehemias, can you please sign , pended order for VCE to make sure we can get approved and get scheduled, thanks, * Telephone Encounter - Komal Nguyen OSA [...] 2:49 PM EST Patient discharged home from [facility] 02/28/23. GI consulted and recommend an outpatient video capsule to evaluate for AVMs. Please assist with this recommendation. Thank you documented in this encounter Plan of Treatment Upcoming Encounters Date Type Department Care Team (Late st Contact Info) Description 03/20/2023 10:30 AM EST [facility] [place] [address] Sofie Upton CRNP [address] [place] [address] 03/20/2023 5:10 PM EST 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 Pharmacy, [address] [place] [address] [place] [address] 03/22/2023 1:00 PM EST Office Visit Nephrology [address] [place] [address] Carlene Kendrick MD [address] [place] [address] [place] [address] 03/30/2023 3:00 PM EST Office Visit Family Medicine [address] [place] [phone] Luanne Nielson PA-C [address] [place] [address] [place] [phone] 06/05/2023 2:00 PM EDT Office Visit Gastroenterology, [facility] [address] [place] [address] Abdoul Salgado CRNP [address] [place] [address] 07/04/2023 11:30 AM EDT Office Visit Family Medicine [address] [place] [phone] Liliane L[address] [place] [address] 07/27/2023 1:30 PM EDT Office Visit Cardiology [address] [place] [address] Cameron Becerra PA-C [address] [address] Scheduled Orders Name Type Priority Associated Diagnoses Orde r Schedule VIDEO CAPSULE ENDOSCOPY Gastro Upper Routine Iron deficiency anemia, unspecified iron deficiency anemia type Occult blood positive stool Ordered: 03/09/2023 Health Maintenance Due Date Last Done Comments [...] Additional history exists CKD PHOS USE SMARTSET 93948 01/20/2024 11/0 11/2022, 11/21/2022, 01/06/2021, Additional history exists CKD HGB USE SMARTSET 46947 03/07/202403/07, 03/07/2023, 11/16/2022, Additional history exists DXA [...] as of this encounter Visit Diagnoses Diagnosis Iron deficiency anemia, unspecified iron deficiency anemia type- Primary Occult blood positive stool Nonspecific abnormal finding in stool contents documented in this encounter Care Teams Wood Carving Lathe Operator Relationship Specialty Start Date End Date Priyanka Falcon MD [address] [place] [address] [place] [id number] PCP - General Family Medicine 01/04/19 documented as of this encounter
--- OUTSIDE RECORDS SUMMARY | 2023-03-09 23:14 | External Medical Summary | Summary of Care ---
Author Name Unknown Organization [facility] Address [address] [place] [address] Phone [phone] Care Team Providers Care Sales Analytics Manager Name Role Phone Priyanka Falcon MD Primary Care Prov ider Reason for Referral * Precert (Within 10 days (routine)) - Authorized Specialty Diagnoses / Procedures Referred By Contac t Referred To Contact Radiology Diagnoses Iron deficiency anemia, unspecified iron deficiency anemia type Occult blood positive stool Procedures VIDEO CAPSULE ENDOSCOPY Priyanka Falcon MD [address] [place] [address] [place] [id number] Referral ID Status Reason Start Date Expiration Date V isits Requested Visits Authorized [id number] Authorized 03/09/2023 999 999 Reason for Visit * Reason Onset Date Comments Hospital Follow-Up 03/01/2023 Order Request 03/01/2023 VCE order Encounter Details Date Type Department Care Team (Late st Contact Info) Description 03/01/2023 Telephone General Internal Medicine [facility] [address] [place] [address] Priyanka Falcon MD [address] [place] [address] [place] [phone] Hospital Follow-Up; Order Request (VCE ord... Allergies Active Allergy Reactions Criticality Noted Date Comments Naproxen Sodium Bleeding High 12/03/2009 Hs of GI bleed Aspirin Bleeding High 12/03/2009 Doxycycline Neuro complications (Please comment) Medium 10/23/2010 Hallucinations Ibuprofen Bleeding High 12/03/2009 Hx of GI bleed Nitrofurantoin Monohydrate Macrocrystals Neuro complications (Please comment) Low 09/16/2009 Headaches Tijrhxvh-Uvgisxqgo-Zc 01/25/2011 Caused eye problems Neosporin 05/30/2003 rash [...] FOR ITCHING 30 g 2 05/28/2020 Active Kag[employer] In Vitro Strip (Glucose Blood)Indications: Type 2 diabetes mellitus with hemoglobin A1c goal of less than 7.5% (HCC) Use to test blood sugar once a day DX e11.9 100 Strip 3 05/14/2021 Active Field[employer]ens[employer] Verio Flex System w/Device KitIndications:Typ e 2 [...] Tablet 1 09/08/2022 Active OneTouch Delica Plus [id number] ns:Type 2 diabetes mellitus with hemoglobin A1c [...] ([facility]),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,shelter current use of anticoagulant therapy,PAF (paroxysmal atrial fibrillation) ([facility]) TAKE 1-2 TABLETS BY MOUTH DAILY DIRECTED BY ANTICOAGULATION CLINIC 100 Tablet 3 12/05/2022 Active Additional Information Patient not taking.Reported on 03/02/2023 TransMed SystemsTouch Ultra In Vitro Strip (Glucose Blood)Indications: [...] 2:49 PM EST Patient discharged home from [facility] 02/28/23. GI consulted and recommend an outpatient video capsule to evaluate for AVMs. Please assist with this recommendation. Thank you documented in this encounter Plan of Treatment Upcoming Encounters Date Type Department Care Team (Late st Contact Info) Description 03/20/2023 10:30 AM EST Office Visit [facility] [place] [address] Sofie Upton CRNP [address] [place] [address] 03/20/2023 5:10 PM EST 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 Pharmacy, [address] [place] [address] [place] [address] 03/22/2023 1:00 PM EST Office Visit Nephrology [address] [place] [address] Carlene Kendrick MD [address] [place] [address] [place] [address] 03/30/2023 3:00 PM EST Office Visit Family Medicine [address] [place] [phone] Luanne Nielson PA-C [address] [place] [address] [place] [address] 06/05/2023 2:00 PM EDT Office Visit Gastroenterology, [facility] [address] [place] [address] Abdoul Salgado CRNP [address] [place] [address] 07/04/2023 11:30 AM EDT Office Visit Family Medicine [address] [place] [phone] Liliane Lobato[address] [place] [address] 07/27/2023 1:30 PM EDT Office Visit Cardiology [address] [place] [address] Cameron Becerra PA-C [address] [address] Scheduled Orders Name Type Priority Associated Diagnoses [...] Additional history exists CKD PHOS USE SMARTSET 09453 01/20/2024 11/0 11/2022, 11/21/2022, 01/06/2021, Additional history exists CKD HGB USE SMARTSET 52279 03/07/202403/07, 03/07/2023, 11/16/2022, Additional history exists DXA [...] contents documented in this encounter Care Teams Sales Analytics Manager Relationship Specialty Start Date End Date Priyanka Falcon MD [address] [place] [address] [place] [phone] PCP - General Family Medicine 01/04/19 documented as of this encounter
--- OUTSIDE RECORDS SUMMARY | 2023-03-09 23:14 | External Medical Summary | Summary of Care ---
Author Name Unknown Organization [facility] Address [address] [place] [address] Phone [phone] Care Team Providers Care Paster Operator Name Role Phone Priyanka Falcon MD Primary Care Prov ider Reason for Visit * Reason Onset Date Comments Hospital Follow-Up 03/01/2023 Encounter Details Date Type Department Care Team (Late st Contact Info) Description 03/01/2023 Telephone General Internal Medicine [facility] [address] [place] [address] Priyanka Falcon MD [address] [place] [address] [place] [address] Hospital Follow-Up Allergies Active Allergy Reactions Criticality Noted Date Comments Naproxen Sodium Bleeding High 12/03/2009 Hs of GI bleed Aspirin Bleeding High 12/03/2009 Doxycycline Neuro complications (Please comment) Medium 10/23/2010 Hallucinations Ibuprofen Bleeding High 12/03/2009 Hx of GI bleed Nitrofurantoin Monohydrate Macrocrystals Neuro complications (Please comment) Low 09/16/2009 Headaches Onvqplsy-Qnzcgxrsv-Yh 01/25/2011 Caused eye problems Neosporin 05/30/2003 rash [...] FOR ITCHING 30 g 2 05/28/2020 Active Spring[employer] Verio In Vitro Strip (Glucose Blood)Indications: Type 2 diabetes mellitus with hemoglobin A1c goal of less than 7.5% (HCC) Use to test blood sugar once a day DX e11.9 100 Strip 3 05/14/2021 Active Adwo Media Holdingsuch Verio Flex System w/Device KitIndications:Typ e 2 [...] Tablet 1 09/08/2022 Active OneTouch Delica Plus [id number] ns:Type 2 diabetes mellitus with hemoglobin A1c [...] ([facility]),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,custodial current use of anticoagulant [...] 2:49 PM EST Patient discharged home from [facility] 02/28/23. GI consulted and recommend an outpatient video capsule to evaluate for AVMs. Please assist with this recommendation. Thank you documented in this encounter Plan of Treatment Upcoming Encounters Date Type Department Care Team (Late st Contact Info) Description 03/20/2023 10:30 AM EST Office Visit Cardiology, [facility] [address] [place] [address] Sofie Upton CRNP [address] [place] [address] 03/20/2023 5:10 PM EST 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 Pharmacy, [address] [place] [address] [place] [address] 03/22/2023 1:00 PM EST Office Visit Nephrology [address] [place] [address] Carlene Kendrick MD [facility] [place] [address] 03/30/2023 3:00 PM EST Office Visit Family Medicine [address] [place] [phone] Luanne Nielson PA-C [address] [place] [address] [place] [address] 06/05/2023 2:00 PM EDT Office Visit Gastroenterology, [facility] [address] [place] [address] Abdoul Salgado CRNP [address] [place] [address] 07/04/2023 11:30 AM EDT Office Visit Family Medicine [address] [place] [phone] Liliane Lobato [address] [place] [address] 07/27/2023 1:30 PM EDT Office Visit Cardiology [address] [place] [address] Cameron Becerra PA-C [address] [place] [address] Health Maintenance Due Date Last Done Comments Hepatitis B (1 of 3 - Risk 3-dose series) 1995 Depression Screening 08/03/2021 08/03/2020 Diabetic Foot Exam 02/08/2023 02/08/2022, 0 05/28/2020, 05/17/2019, Additional history exists Diabetic Eye Exam 03/15/2023 03/15/2022, , 11/03/2020, Additional history exists HbA1c 07/20/2023 01/19/2023, 08/2022, 12/03/2021, Additional history exists Albumin/Creatinine Ratio 11/17/2023 023, 03/29/2022, 01/06/2021, Additional history exists CKD PHOS USE SMARTSET 53043 01/20/2024 11/0 11/2022, 11/21/2022, 01/06/2021, Additional history exists CKD HGB USE SMARTSET 29624 03/07/202403/07, 03/07/2023, 11/16/2022, Additional history exists DXA [...] filedocumented as of this encounter Care Teams Paster Operator Relationship Specialty Start Date End Date Priyanka Falcon MD [address] [place] [address] [place] [address] PCP - General Family Medicine 01/04/19 documented as of this encounter
--- OUTSIDE RECORDS SUMMARY | 2023-03-09 23:14 | External Medical Summary | Summary of Care ---
Author Name Unknown Organization [facility] Address [address] [place] [address] Phone [phone] Care Team Providers Care Progress Developer Name Role Phone Priyanka Falcon MD Primary Care Prov ider Reason for Visit * Reason Onset Date Comments Hospital Follow-Up 03/01/2023 Order Request 03/01/2023 VCE order Encounter Details Date Type Department Care Team (Late st Contact Info) Description 03/01/2023 Telephone General Internal Medicine [facility] [address] [place] [address] Priyanka Falcon MD [address] [place] [address] [place] [address] Hospital Follow-Up; Order Request (VCE ord... Allergies Active Allergy Reactions Criticality Noted Date Comments Naproxen Sodium Bleeding High 12/03/2009 Hs of GI bleed Aspirin Bleeding High 12/03/2009 Doxycycline Neuro complications (Please comment) Medium 10/23/2010 Hallucinations Ibuprofen Bleeding High 12/03/2009 Hx of GI bleed Nitrofurantoin Monohydrate Macrocrystals Neuro complications (Please comment) Low 09/16/2009 Headaches Bkyhskvc-Pbqicjuyr-Dk 01/25/2011 Caused eye problems Neosporin 05/30/2003 rash [...] FOR ITCHING 30 g 2 05/28/2020 Active 51 [employer] In Vitro Strip (Glucose Blood)Indications: Type 2 diabetes mellitus with hemoglobin A1c goal of less than 7.5% (HCC) Use to test blood sugar once a day DX e11.9 100 Strip 3 05/14/2021 Active MapMyID Verio Flex System w/Device KitIndications:Typ e 2 [...] Tablet 1 09/08/2022 Active OneTouch Delica Plus [id number] ns:Type 2 diabetes mellitus with hemoglobin A1c [...] ([facility]),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,FPC current use of anticoagulant therapy,PAF (paroxysmal atrial fibrillation) ([facility]) TAKE 1-2 TABLETS BY MOUTH DAILY DIRECTED BY ANTICOAGULATION CLINIC 100 Tablet 3 12/05/2022 Active Additional Information Patient not taking.Reported on 03/02/2023 Q.branchTouch Ultra In Vitro Strip (Glucose Blood)Indications: Type [...] than 7.5% ([facility]) TAKE 1 TABLET BY [...] encounter Miscellaneous Notes * Addendum Note - Meenu Perez LPN - 03/09/2023 12:45 PM ESTAddended by: MEENU PEREZ on: 03/09/2023 12:45 PM Modules accepted: Orders * Telephone Encounter - Meenu Perez LPN - 03/09/2023 12:42 PM EST Patriciaella, can you please sign , pended order [...] 2:49 PM EST Patient discharged home from [facility] 02/28/23. GI consulted and recommend an outpatient video capsule to evaluate for AVMs. Please assist with this recommendation. Thank you documented in this encounter Plan of Treatment Upcoming Encounters Date Type Department Care Team (Late st Contact Info) Description 03/20/2023 10:30 AM EST Office Visit Cardiology, [facility] [address] [place] [address] Sofie Upton CRNP [address] [place] [address] 03/20/2023 5:10 PM EST 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 Pharmacy, [address] [place] [address] [place] [address] 03/22/2023 1:00 PM EST Office Visit Nephrology [address] [place] [address] Carlene Kendrick MD [address] [facility] [address] 03/30/2023 3:00 PM EST Office Visit Family Medicine [address] [place] [phone] Luanne Nielson PA-C [address] [place] [address] [place] [address] 06/05/2023 2:00 PM EDT Office Visit Gastroenterology, [facility] [address] [place] [address] Abdoul Salgado CRNP [address] [place] [address] 07/04/2023 11:30 AM EDT Office Visit Family Medicine [address] [place] [phone] Liliane Lobato DO [address] [place] [address] [place] [address] 07/27/2023 1:30 PM EDT Office Visit Cardiology [address] [place] [address] Cameron Becerra PA-C [address] [place] [address] Health Maintenance Due Date Last Done Comments Hepatitis B (1 of 3 - Risk 3-dose series) 1994 Depression Screening 08/03/2021 08/03/2020 Diabetic Foot Exam 02/08/2023 02/08/2022, 0 05/28/2020, 05/17/2019, Additional history exists Diabetic Eye Exam 03/15/2023 03/15/2022, , 11/03/2020, Additional history exists HbA1c 07/20/2023 01/19/2023, 08/2022, 12/03/2021, Additional history exists Albumin/Creatinine Ratio 11/17/2023 023, 03/29/2022, 01/06/2021, Additional history exists CKD PHOS USE SMARTSET 60525 01/20/202411/2022, 11/21/2022, 01/06/2021, Additional history exists CKD HGB USE SMARTSET 40813 03/07/202403/07, 03/07/2023, 11/16/2022, Additional history exists DXA [...] filedocumented as of this encounter Care Teams Progress Developer Relationship Specialty Start Date End Date Priyanka Falcon MD [address] [place] [address] [place] [phone] PCP - General Family Medicine 01/04/19 documented as of this encounter
[2023-03-09 23:20] LABS: Hematocrit (blood only) 21.4 % (37.0-47.0); Hemoglobin 6.6 g/dl (12.0-16.0)
[2023-03-10] MEDS ORDERED: SODIUM CHLORIDE 0.9% 250 ML IV PRN (00:04)
[2023-03-10] MEDS ORDERED: ACETAMINOPHEN 325 MG TAB PO ONE (03:00)
[2023-03-10] MEDS ORDERED: FUROSEMIDE INJ 20 MG/2 ML VIAL IV ONE (03:00)
[2023-03-10] MEDS: INSULIN ASPART PER UNIT CHARGE SC SCH ×4 (09:44→21:02)
[2023-03-10] MEDS: DOCUSATE SODIUM 100 MG CAP PO SCH ×2 (09:58→20:45)
[2023-03-10] MEDS: PANTOprazole 40 MG TAB PO SCH ×2 (09:58→20:45)
[2023-03-10] MEDS: CYANOCOBALAMIN (B-12) 500 MCG TABLET PO SCH (09:58)
[2023-03-10] MEDS: METOPROLOL SUCC 50MG EXT REL TAB PO SCH ×2 (09:59→20:45)
[2023-03-10] MEDS: ATORVASTATIN 40 MG TAB PO SCH (09:59)
[2023-03-10] MEDS: POLYETHYLENE (MIRALAX) 17 GM PACK PO SCH (09:59)
[2023-03-10] MEDS: CHOLECALCIFEROL 1,000 UNITS 25 MCG TAB PO SCH (09:59)
[2023-03-10] MEDS: FERROUS SULFATE 325 MG TAB PO SCH ×2 (09:59→17:51)
[2023-03-10] MEDS: amLODIPine BESYLATE 5 MG TAB PO SCH (09:59)
[2023-03-10 10:26] LABS: Hematocrit (blood only) 27.3 % (37.0-47.0); Hemoglobin 8.7 g/dl (12.0-16.0); Mean Corpuscular Hemoglobin 29.3 pg (25.0-34.0); Mean Corpuscular Hgb Conc 31.9 g/dL (32.0-36.0); Mean Corpuscular Volume 91.9 fL (80.0-100.0); Mean Platelet Volume 10.5 fL (9.4-12.4); Platelet Count 288 K/uL (130-400); RDW Standard Deviation 51.8 fL (36.4-46.3); Red Blood Count 2.97 M/uL (4.20-5.40); White Blood Count 4.96 K/ul (4.8-10.8)
[2023-03-10 10:27] LABS: Basophils # (auto) 0.02 K/uL (0.00-0.20); Basophils % (auto) 0.4 %; Hematocrit (blood only) 26.9 % (37.0-47.0); Hemoglobin 8.7 g/dl (12.0-16.0); Immature Granulocytes # (auto) 0.03 K/uL (0.01-0.20); Immature Granulocytes % (auto) 0.6 %; Lymphocytes # (auto) 0.74 K/uL (1.20-3.40); Mean Corpuscular Hemoglobin 29.5 pg (25.0-34.0); Mean Corpuscular Hgb Conc 32.3 g/dL (32.0-36.0); Mean Corpuscular Volume 91.2 fL (80.0-100.0); Mean Platelet Volume 10.6 fL (9.4-12.4); Monocytes # (auto) 0.62 K/uL (0.11-0.59); Monocytes % (auto) 12.6 %; Neutrophils # (auto) 3.51 K/uL (1.40-6.50); Neutrophils % (auto) 71.4 %; Platelet Count 293 K/uL (130-400); RDW Coefficient of Variation 16.1 % (11.5-14.5); RDW Standard Deviation 52.3 fL (36.4-46.3); Red Blood Count 2.95 M/uL (4.20-5.40); White Blood Count 4.92 K/ul (4.8-10.8)
[2023-03-10 10:41] LABS: Albumin Globulin Ratio 0.8 (0.9-2); Albumin Level 2.8 gm/dl (3.4-5.0); BUN Creatinine Ratio 28.9 (10-20); Bilirubin,Total 0.9 mg/dl (0.2-1.0); Calcium 8.1 mg/dl (8.6-10.3); Creatinine Clr Calc Pharmacy 26.6 ml/min; Est GFR (African American) 43.2 ml/min; Est GFR (Non-African American) 37.3 ml/min; Globulin 3.3 gm/dl (2.5-4.0); Magnesium 1.5 mg/dl (1.7-2.4); Phosphorus 3.1 mg/dl (2.5-4.9); Potassium 3.6 mmol/L (3.5-5.1); Total Protein 6.1 gm/dl (6.0-8.3)
[2023-03-10 10:43] LABS: BUN Creatinine Ratio 29.4 (10-20); Calcium 8.1 mg/dl (8.6-10.3); Est GFR (African American) 44.1 ml/min; Magnesium 1.5 mg/dl (1.7-2.4); Potassium 3.6 mmol/L (3.5-5.1)
--- NOTE | 2023-03-10 14:23 | Hospitalist Progress Note ---
Date of Service March 10, 2023 Assessment & Plan (1) Weakness: (2) Anemia: (3) BRBPR (bright red blood per rectum): (4) JOLIE (acute kidney injury): (5) Persistent atrial fibrillation: (6) Chronic diastolic CHF (congestive heart failure): (7) Diabetes mellitus type 2 in obese: (8) Hypertension: (9) Hyperlipidemia: Plan 87-year-old female PMH persistent atrial fibrillation (Coumadin recently discontinued in the setting of GI bleeding), nonsustained V. tach, paroxysmal SVT, paroxysmal atrial tachycardia, tricuspid regurgitation, mitral regurgitation, chronic diastolic CHF, CKD stage III, DM type II, HLD, HTN, history of breast cancer s/p left mastectomy who presents to the ED for evaluation of generalized weakness and episode of bright red bleeding per rectum. Weakness Patient presenting from home with reports of generalized weakness and episode of bright red bleeding per rectum. Recently admitted to [facility] for anemia and GI bleeding in the setting of supratherapeutic INR. Patient likely would benefit from rehab stay, patient and son agreeable. PT/OT, possible dc to [facility] Anemia BRBPR (bright red blood per rectum) Recently admitted to [facility] 02/20 through 02/28 for GI bleeding in the setting of supratherapeutic INR. Patient underwent EGD that was unremarkable and colonoscopy that showed diverticulosis and internal hemorrhoids. Outpatient video capsule endoscopy study was recommended. Patient's Coumadin was also discontinued. Hgb 7.3 on 02/28 --> 7.2 on 03/07 on outpatient labs --> 7.9 today Episode of BRBPR on day of admission likely due to internal hemorrhoids in the setting of constipation Repeat H/H of 6.6, s/p transfusion of 1U pRBC on 03/09 Continue iron replacement Bowel regimen Continue to monitor H&H JOLIE (acute kidney injury) Mild, creatinine 1.4 (1.0 on 02/28) Likely due to decreased p.o. intake Hold diuretics, ACEi, gentle IVF, follow-up renal functions Persistent atrial fibrillation Rate controlled on metoprolol Coumadin recently discontinued as above per Cardiology recs Chronic diastolic CHF (congestive heart failure): Holding diuretics for now due to mild JOLIE, resume as able Diabetes mellitus type 2 Hgb A1c 8.5 02/2023 Hold oral agents and utilize NovoLog per protocol while hospitalized Hypertension: BP controlled, continue amlodipine, metoprolol. Holding lisinopril as above Hyperlipidemia: Chronic, stable Continue statin Diet: DMII DVT PROPHYLAXIS: SCDs due to anemia and recent GI bleeding CODE STATUS: Full code Dispo: PT/OT recommending rehab Admission and Anticipated Discharge Date Admission Date: March 09, 2023 Subjective Seen in the AM. AAO x2. States that she had a transfusion overnight. Denies further episodes of bloody stools. Son seen in the hallway and updated. States that she has been sleeping only at home, concerned about her weakness. Later called at the end of the day and updated son and his on GI recs. Review of Systems Review of Systems: All systems reviewed & are unremarkable except as noted in Subjective Physical Exam Physical Exam: General: Alert, oriented. No acute distress Skin: No noted rashes or bruises Psych: Appropriate mood and affect Neuro: No gross deficits HEENT: NC/AT Chest: Nontender to palpation. CV: RRR Resp: Breath sounds clear bilaterally, no increased effort of breathing. Abdomen: Soft, nontender, nondistended. Extremities: No edema in lower extremities bilaterally. Results & Data Results & Data Vital Signs (Past 12 Hours) Vital Signs Temp Pulse Pulse Resp BP BP Pulse Ox 03/10/23 08:09 36.5 C 79 16 128/69 96 03/10/23 06:48 36.6 C 75 16 119/59 L 95 03/10/23 06:00 36.6 C 85 18 123/66 92 03/10/23 05:00 36.5 C 77 16 123/66 93 03/10/23 04:30 36.7 C 78 16 125/68 93 03/10/23 04:15 36.7 C 81 18 130/70 94 03/10/23 03:59 36.7 C 82 18 130/69 94 O2 Del Method 03/10/23 08:09 Room Air 03/10/23 06:48 03/10/23 06:00 03/10/23 05:00 03/10/23 04:30 03/10/23 04:15 03/10/23 03:59
--- NOTE | 2023-03-10 15:23 | History & Physical Report ---
Date of Service March 10, 2023 Assessment & Plan (1) Anemia: Plan: No plans for any repeat endoscopy as she recently had EGD and colonoscopy 2 weeks ago. She only had 1 episode of hematochezia in setting of passing a hard stool. Suspect this is related to her hemorrhoids. Can continue with outpatient VCE for anemia work up. Recommend Miralax 17g daily to ensure soft stools. Trend H/H and transfuse for hgb <7. Stacey Ferrara DO Gastroenterology and Hepatology Admission and Anticipated Discharge Date Admission Date: March 09, 2023 History of Present Illness Chief Complaint: rule out GI bleeding Primary Care Provider: Liliane Lobato DO 87 y/o F with history fo atrial fibrillation (was on coumadin but recently discontinued), chronic diastolic heart failure, CKD III, HTN, HLD, DM2, breast cancer admitted with weakness and an episode of hematochezia. She was recently admitted 2 weeks ago with GI bleeding in setting of supratherapeutic INR and had both and EGD and colonoscopy notable for only diverticulosis and internal hemorrhoids. VCE was recommended outpatient as no bleeding source found. Her coumadin was discontinued after this admission. She states she felt weak over the the past 2 weeks and had 1 episode of BRBPR after passing 1 hard stool. No other episodes of hematochezia, hematemesis, or melena. hgb on admission 6.6 from baseline in the 7s. Her repeat hgb after 1 unit PRBC is 8.7. Allergies Allergy/AdvReac Type Severity Reaction Status Date / Time tramadol Allergy Severe HALLUCINATIONS-PER Verified 03/09/23 15:34 GMG bacitracin Allergy Mild CAUSED EYE Verified 03/09/23 15:34 PROBLEMS neomycin Allergy Mild Rash Verified 03/09/23 15:34 polymyxin B Allergy Mild CAUSED EYE Verified 03/09/23 15:34 PROBLEMS Aminoglycosides Allergy Unknown Unknown Verified 03/09/23 15:34 aspirin AdvReac Severe HX OF GI Verified 02/20/23 16:07 BLEED ibuprofen AdvReac Severe HX OF GI Verified 03/09/23 15:34 BLEED naproxen [From Aleve] AdvReac Severe HX OF GI Verified 03/09/23 15:34 BLEED NSAIDS (Non-Steroidal AdvReac Severe HX OF GI Verified 03/09/23 15:34 Anti-Inflamma BLEED doxycycline AdvReac Intermediate HALLUCINATI Verified 03/09/23 15:34 ONS nitrofurantoin AdvReac Intermediate HEADACHES Verified 03/09/23 15:34 [From Macrobid] Sulfa (Sulfonamide AdvReac Intermediate NAUSEA, Verified 03/09/23 15:34 Antibiotics) VOMITING, BAD HEADACHE triamterene AdvReac Intermediate ULCERS Verified 03/09/23 15:34 Home Medications Medication Instructions Recorded Confirmed Type cholecalciferol (vitamin D3) 25 1,000 unit PO DAILY 12/29/18 03/09/23 History mcg (1,000 unit) capsule (Vitamin D3) cyanocobalamin (vitamin B-12) 1,000 mcg PO DAILY 12/29/18 03/09/23 History 1,000 mcg tablet (Vitamin B-12) glipizide 2.5 mg tablet, extended 2.5 mg PO DAILY 12/29/18 03/09/23 History release 24 hr (Glucotrol XL) lorazepam 0.5 mg tablet (Ativan) 0.5 mg PO BID PRN Anxiety 12/29/18 03/09/23 History metoprolol succinate 100 mg 100 mg PO QAM 12/29/18 03/09/23 History tablet,extended release 24 hr (Toprol XL) polyethylene glycol 3350 17 17 g PO DAILY PRN Constipation 12/29/18 03/09/23 History gram/dose oral powder (Miralax) triamcinolone acetonide 0.1 % 1 applic topical BID PRN Itching 12/29/18 03/09/23 History topical cream (Triderm) amlodipine 2.5 mg tablet 2.5 mg PO QAM 02/20/23 03/09/23 History atorvastatin 80 mg tablet 80 mg PO QAM 02/20/23 03/09/23 History docusate sodium 100 mg capsule 100 mg PO DAILY 02/20/23 03/09/23 History hydrocodone 5 mg-acetaminophen 325 1 tab PO BID PRN Pain, Severe 02/20/23 03/09/23 History mg tablet lisinopril 20 mg tablet 20 mg PO DAILY 02/20/23 03/09/23 History metformin 500 mg tablet 500 mg PO BIDM 02/20/23 03/09/23 History pantoprazole 40 mg tablet,delayed 40 mg PO BID #60 tabs 02/23/23 03/09/23 Rx release furosemide 40 mg tablet 40 mg PO 5XWK 02/28/23 03/09/23 History metoprolol succinate 100 mg 50 mg PO QPM 03/09/23 03/09/23 History tablet,extended release 24 hr Past Med/Surg History Medical History Persistent atrial fibrillation Nonsustained ventricular tachycardia Paroxysmal SVT (supraventricular tachycardia) Paroxysmal atrial tachycardia Tricuspid regurgitation Mitral regurgitation Chronic diastolic CHF (congestive heart failure) CKD (chronic kidney disease) stage 3, GFR 30-59 ml/min Diabetes mellitus type 2 in obese History of breast cancer Hyperlipidemia Hypertension Surgical History History of partial mastectomy of left breast History of appendectomy H/O bilateral oophorectomy S/P JAYNE (total abdominal hysterectomy) Bilateral cataracts Family History Other No significant family history Social History Smoking Status: Never smoker Hx Alcohol Use: Yes Alcohol type: wine Hx Substance Use: No Preferred Language: Qatari Communication Ability: Effective Transcriber Required: No Beliefs That Will Affect Care: None Current Living Situation: Alone Current Living Situation Comment: home alone, daughter in visiting from [place]. Son lives close by. current occupational status: retired Feels Safe at Home: Yes Safety Concerns: Feels Safe At This Time Assistive Devices: Cane and Walker Review of Systems All systems reviewed & are unremarkable except as noted in HPI & below Physical Exam Constitutional: WD/WN, vitals as above Eyes: PERRL, conjunctivae normal, anicteric sclerae Respiratory: normal respiratory effort, lungs clear to auscultation Cardiovascular: RRR, no murmur, no edema Gastrointestinal (Abdomen): normal bowel sounds, soft, nontender, no hepatosplenomegaly Psychiatric: A+Ox3, euthymic affect Results & Data Vital Signs (Past 12 Hours) Vital Signs Temp Pulse Pulse Resp BP BP Pulse Ox 03/10/23 08:09 36.5 C 79 16 128/69 96 03/10/23 06:48 36.6 C 75 16 119/59 L 95 03/10/23 06:00 36.6 C 85 18 123/66 92 03/10/23 05:00 36.5 C 77 16 123/66 93 03/10/23 04:30 36.7 C 78 16 125/68 93 03/10/23 04:15 36.7 C 81 18 130/70 94 03/10/23 03:59 36.7 C 82 18 130/69 94 O2 Del Method 03/10/23 08:09 Room Air 03/10/23 06:48 03/10/23 06:00 03/10/23 05:00 03/10/23 04:30 03/10/23 04:15 03/10/23 03:59 Code Status & VTE Plan VTE Prophylaxis Plan VTE Prophylaxis will be ordered: Yes
--- NOTE | 2023-03-10 16:25 | Electrocardiogram Report ---
Test Reason : Blood Pressure : / mmHG Vent. Rate : 082 BPM Atrial Rate : 082 BPM P-R Int : 176 ms QRS Dur : 058 ms QT Int : 286 ms P-R-T Axes : 000 030 198 degrees QTc Int : 334 ms Atrial fibrillation PVCs versus aberrant conduction Low voltage QRS Abnormal ECG Confirmed by Harmeet Manzo ([id number]) on 03/10/2023 4:24:43 PM Referred By: REFERRED SELF Confirmed By:Clem Manzo
[2023-03-10] MEDS ORDERED: LORazepam 0.5 MG TAB PO STA (21:37)
[2023-03-11] MEDS: amLODIPine BESYLATE 5 MG TAB PO SCH (09:12)
[2023-03-11] MEDS: METOPROLOL SUCC 50MG EXT REL TAB PO SCH (09:12)
[2023-03-11] MEDS: FERROUS SULFATE 325 MG TAB PO SCH (09:12)
[2023-03-11] MEDS: ATORVASTATIN 40 MG TAB PO SCH (09:12)
[2023-03-11] MEDS: PANTOprazole 40 MG TAB PO SCH (09:12)
[2023-03-11] MEDS: CYANOCOBALAMIN (B-12) 500 MCG TABLET PO SCH (09:12)
[2023-03-11] MEDS: CHOLECALCIFEROL 1,000 UNITS 25 MCG TAB PO SCH (09:12)
[2023-03-11] MEDS: DOCUSATE SODIUM 100 MG CAP PO SCH (09:12)
[2023-03-11] MEDS: POLYETHYLENE (MIRALAX) 17 GM PACK PO SCH (09:13)
[2023-03-11] MEDS: INSULIN ASPART PER UNIT CHARGE SC SCH ×2 (09:16→12:58)
[2023-03-11 09:48] LABS: Basophils # (auto) 0.03 K/uL (0.00-0.20); Basophils % (auto) 0.5 %; Hemoglobin 9.6 g/dl (12.0-16.0); Immature Granulocytes # (auto) 0.02 K/uL (0.01-0.20); Immature Granulocytes % (auto) 0.3 %; Lymphocytes % (auto) 16.6 %; Mean Corpuscular Hemoglobin 28.9 pg (25.0-34.0); Mean Corpuscular Volume 93.4 fL (80.0-100.0); Mean Platelet Volume 10.6 fL (9.4-12.4); Monocytes # (auto) 0.63 K/uL (0.11-0.59); Monocytes % (auto) 10.4 %; Neutrophils # (auto) 4.35 K/uL (1.40-6.50); Neutrophils % (auto) 72.2 %; Platelet Count 298 K/uL (130-400); RDW Coefficient of Variation 16.7 % (11.5-14.5); RDW Standard Deviation 55.6 fL (36.4-46.3); Red Blood Count 3.32 M/uL (4.20-5.40); White Blood Count 6.03 K/ul (4.8-10.8)
[2023-03-11 10:04] LABS: Albumin Globulin Ratio 0.9 (0.9-2); Albumin Level 2.9 gm/dl (3.4-5.0); BUN Creatinine Ratio 21.5 (10-20); Bilirubin,Total 0.9 mg/dl (0.2-1.0); Calcium 8.2 mg/dl (8.6-10.3); Creatinine Clr Calc Pharmacy 31.8 ml/min; Est GFR (African American) 53.7 ml/min; Est GFR (Non-African American) 46.3 ml/min; Globulin 3.4 gm/dl (2.5-4.0); Magnesium 1.4 mg/dl (1.7-2.4); Phosphorus 2.4 mg/dl (2.5-4.9); Potassium 3.6 mmol/L (3.5-5.1); Total Protein 6.3 gm/dl (6.0-8.3)
[2023-03-11] MEDS ORDERED: POTASSIUM PHOS 3 MMOL/1 ML INFUSION IV STA (11:13)
[2023-03-11] MEDS ORDERED: POTASSIUM PHOSPHATE 15 MMOL in SODIUM CHLORIDE 0.9% 250 ML IV ONE (11:30)
[2023-03-11] MEDS: MAGNESIUM SULFATE / D5W 1 GM/100 ML BAG IV SCH ×2 (12:34→14:28)
--- NOTE | 2023-03-11 16:31 | Discharge Summary ---
Discharge Summary Date of Service March 11, 2023 Notes For Next Care Provider Please ensure GI followup Medication Changes From Visit Iron tablets Miralax daily Admission HPI Per Admitting Provider 87 y/o F with history fo atrial fibrillation (was on coumadin but recently discontinued), chronic diastolic heart failure, CKD III, HTN, HLD, DM2, breast c ancer admitted with weakness and an episode of hematochezia. She was recently admitted 2 weeks ago with GI bleeding in setting of supratherapeutic INR and had both and EGD and colonoscopy notable for only diverticulosis and internal hemorrhoids. VCE was recommended outpatient as no bleeding source found. Her coumadin was discontinued after this admission. She states she felt weak over the the past 2 weeks and had 1 episode of BRBPR after passing 1 hard stool. No other episodes of hematochezia, hematemesis, or melena. hgb on admission 6.6 from baseline in the 7s. Her repeat hgb after 1 unit PRBC is 8.7. Admission Exam Per Admitting Provider Constitutional: WD/WN, vitals as above no acute distress Eyes: PERRL, conjunctivae normal, anicteric sclerae ENMT: external ear and nose normal, oropharynx normal Respiratory: normal respiratory effort, lungs clear to auscultation Cardiovascular: Rate/Rhythm: regular rate and + irregularly irregular Vessels: normal peripheral pulses Extremities: no edema Gastrointestinal (Abdomen): normal bowel sounds, soft, nontender, no hepatosplenomegaly Musculoskeletal: no cyanosis or clubbing, extremities motor strength 5/5 Skin: no rashes, warm and dry Neurologic: PERRL, EOMI, accommodation nl, no face palsy, no dysarthria Psychiatric: A+Ox3, euthymic affect Principal Dx & Hospital Course #1 = Principal Diagnosis (1) Weakness: (2) Anemia: (3) BRBPR (bright red blood per rectum): (4) JOLIE (acute kidney injury): (5) Persistent atrial fibrillation: (6) Chronic diastolic CHF (congestive heart failure): (7) Diabetes mellitus type 2 in obese: (8) Hypertension: (9) Hyperlipidemia: Plan 87-year-old female PMH persistent atrial fibrillation (Coumadin recently discontinued in the setting of GI bleeding), nonsustained V. tach, paroxysmal SVT, paroxysmal atrial tachycardia, tricuspid regurgitation, mitral regurgitation, chronic diastolic CHF, CKD stage III, DM type II, HLD, HTN, h istory of breast cancer s/p left mastectomy who presents to the ED for evaluation of generalized weakness and episode of bright red bleeding per rectum. Weakness Patient presenting from home with reports of generalized weakness and episode of bright red bleeding per rectum. Recently admitted to [facility] for anemia and GI bleeding in the setting of supratherapeutic INR. Patient likely would benefit from rehab stay, patient and son agreeable. PT/OT- recommending rehab P discharged to [facility] for rehab Anemia BRBPR (bright red blood per rectum) Recently admitted to [facility] 02/20 through 02/28 for GI bleeding in the setting of supratherapeutic INR. Patient underwent EGD that was unremarkable and colonoscopy that showed diverticulosis and internal hemorrhoids. Outpatient video capsule endoscopy study was recommended. Patient's Coumadin was also discontinued. Hgb 7.3 on 02/28 --> 7.2 on 03/07 on outpatient labs --> 7.9 on admission Episode of BRBPR on day of admission likely due to internal hemorrhoids in the setting of constipation Repeat H/H of 6.6, s/p transfusion of 1U pRBC on 03/09 Follow up Hgb of 9.6 on day of discharge GI Consult- appreciate recs. Stated the following: -No plans for any repeat endoscopy as she recently had EGD and colonoscopy 2 weeks ago. -She only had 1 episode of hematochezia in setting of passing a hard stool. Suspect this is related to her hemorrhoids. -Can continue with outpatient VCE for anemia work up. -Recommend Miralax 17g daily to ensure soft stools. -Trend H/H and transfuse for hgb <7. Continue iron replacement Bowel regimen of Miralax Daily PCP and GI follow up after discharge JOLIE (acute kidney injury) Mild, creatinine 1.4 on admission (1.0 on 02/28) Likely due to decreased p.o. intake Held diuretics and ACEi, gentle IVF Cr back to baseline at 1.07 on day of discharge Resume home diuretic and CLAIR PCP, cardiology and nephrology f/u Persistent atrial fibrillation Rate controlled on metoprolol Coumadin recently discontinued per Cardiology recs Cardiology follow up Chronic diastolic CHF (congestive heart failure): Held diuretics due to mild JOLIE resumed on discharge cardiology f/u Diabetes mellitus type 2 Hgb A1c 8.5 02/2023 Resume home meds on discharge Hypertension: BP controlled, continue amlodipine, metoprolol Continue home CLAIR and diuretic Hyperlipidemia: Chronic, stable Continue statin Discharge Exam General: Alert, oriented. No acute distress Psych: Appropriate mood and affect Neuro: No gross deficits HEENT: NC/AT Chest: Nontender to palpation. CV: RRR Resp: Breath sounds clear bilaterally, no increased effort of breathing. Abdomen: Soft, nontender, nondistended. Extremities: No edema in lower extremities bilaterally. Updated Medication List Medication Instructions Recorded Confirmed Type cholecalciferol (vitamin D3) 25 1,000 unit PO DAILY 12/29/18 03/09/23 History mcg (1,000 unit) capsule (Vitamin D3) cyanocobalamin (vitamin B-12) 1,000 mcg PO DAILY 12/29/18 03/09/23 History 1,000 mcg tablet (Vitamin B-12) glipizide 2.5 mg tablet, extended 2.5 mg PO DAILY 12/29/18 03/09/23 History release 24 hr (Glucotrol XL) lorazepam 0.5 mg tablet (Ativan) 0.5 mg PO BID PRN Anxiety 12/29/18 03/09/23 History metoprolol succinate 100 mg 100 mg PO QAM 12/29/18 03/09/23 History tablet,extended release 24 hr (Toprol XL) triamcinolone acetonide 0.1 % 1 applic topical BID PRN Itching 12/29/18 03/09/23 History topical cream (Triderm) amlodipine 2.5 mg tablet 2.5 mg PO QAM 02/20/23 03/09/23 History atorvastatin 80 mg tablet 80 mg PO QAM 02/20/23 03/09/23 History docusate sodium 100 mg capsule 100 mg PO DAILY 02/20/23 03/09/23 History hydrocodone 5 mg-acetaminophen 325 1 tab PO BID PRN Pain, Severe 02/20/23 03/09/23 History mg tablet lisinopril 20 mg tablet 20 mg PO DAILY 02/20/23 03/09/23 History metformin 500 mg tablet 500 mg PO BIDM 02/20/23 03/09/23 History pantoprazole 40 mg tablet,delayed 40 mg PO BID #60 tabs 02/23/23 03/09/23 Rx release furosemide 40 mg tablet 40 mg PO 5XWK 02/28/23 03/09/23 History metoprolol succinate 100 mg 50 mg PO QPM 03/09/23 03/09/23 History tablet,extended release 24 hr ferrous sulfate 325 mg (65 mg 325 mg PO BIDM #60 tabs 03/11/23 Rx iron) tablet,delayed release polyethylene glycol 3350 17 gram 17 g PO DAILY #100 ea 03/11/23 Rx oral powder packet (Miralax) Hospital Stay Data Consultations 03/09/23 15:13 ED Decision to Admit Stat 03/10/23 14:24 Consult Gastroenterology Routine Pending Results Patient Have Any Pending Studies at Discharge: No Discharge Instructions Given to Patient (Per Discharging Provider) Beni Emmanuel, We are discharging you to rehab at [facility]. You were treated with a blood transfusion while you were here and you were seen by the platen press operator. Stevan lamas recommend that you take miralax 17g daily to ensure your stools are soft as they believe that this recent episode is related to your hemorrhoids. They recommend that you continue with the outpatient plan to get the video capsule done for further evaluation. Please continue taking the iron pills we had you on while you were here. Please take the miralax daily. You were also seen by Physical Therapy and they are recommending rehab to help you get stronger. Please keep close follow up with your primary care provider and Gastroenterology after discharge, as well as with your other specialists. Should your symptoms return or worsen, please do not hesitate to come back to the emergency room. Happy New Year and it was a pleasure taking care of you while you were here. Total Time Total Time Spent Total Time Spent (In Minutes): > 30 minutes
--- NOTE | 2023-03-14 15:35 | Coding Query ---
ANEMIA To promote full compliance with coding requirements relating to patient care, physician participation is requested in all cases of code enforcement supervisor uncertainty. Please assist us with the question(s) below: Coding Question(s): The record reflects the following clinical findings: Episode of BRBPR on day of admission likely due to internal hemorrhoids in the setting of constipation. Repeat H/H of 6.6, s/p transfusion of 1U pRBC on 03/09. Follow up Hgb of 9.6 on day of discharge If these findings are indicative of anemia, please specify the known or suspected type by placing an "X" within the parenthesis (x). If other, please document type. Examples are: (x ) Acute blood loss anemia ( ) Chronic blood loss anemia ( ) Anemia of chronic disease ( ) Anemia due to renal disease ( ) Anemia in neoplastic disease ( ) Iron deficient anemia ( ) Anemia, unspecified or other ( ) Other: (please specify) Thank you for your time, MOISÉS Leyva, LEATHER SOFTENER SIVAN
== END 2023-03-11 17:09 | DRG 812 ==
LOC: EDINP 11:55 → ED 11:55 → SUATTDRO 15:51 → 3N 17:49

== ENCOUNTER 2023-03-27 15:02 | Inpatient (IN) ==
[2023-03-27] MEDS ORDERED: PANTOprazole 80 MG in DEXTROSE 5% 100 ML IV STA (15:41)
[2023-03-27] MEDS ORDERED: SODIUM CHLORIDE 0.9% 500 ML IV SCH (15:45)
[2023-03-27 16:22] LABS: Basophils # (auto) 0.03 K/uL (0.00-0.20); Basophils % (auto) 0.4 %; Eosinophils # (auto) 0.21 K/uL (0.00-0.50); Eosinophils % (auto) 2.5 %; Hematocrit (blood only) 34.9 % (37.0-47.0); Hemoglobin 11.3 g/dl (12.0-16.0); Immature Granulocytes # (auto) 0.05 K/uL (0.01-0.20); Immature Granulocytes % (auto) 0.6 %; Lymphocytes # (auto) 1.24 K/uL (1.20-3.40); Lymphocytes % (auto) 14.6 %; Mean Corpuscular Hemoglobin 29.5 pg (25.0-34.0); Mean Corpuscular Hgb Conc 32.4 g/dL (32.0-36.0); Mean Corpuscular Volume 91.1 fL (80.0-100.0); Mean Platelet Volume 10.8 fL (9.4-12.4); Monocytes # (auto) 0.85 K/uL (0.11-0.59); Neutrophils # (auto) 6.14 K/uL (1.40-6.50); Neutrophils % (auto) 71.9 %; Platelet Count 249 K/uL (130-400); RDW Coefficient of Variation 15.7 % (11.5-14.5); RDW Standard Deviation 51.1 fL (36.4-46.3); Red Blood Count 3.83 M/uL (4.20-5.40); White Blood Count 8.52 K/ul (4.8-10.8)
--- NOTE | 2023-03-27 16:26 | Emergency Department Note ---
Impression & Plan Weakness, Hypomagnesemia, Intermittent abdominal pain, Black stool ED Provider Note Provider: Arnulfo Spicer MD DATE OF SERVICE: 03/27/2023 CHIEF COMPLAINT: Black stools, weakness, not eating HISTORY OF PRESENT ILLNESS: Patient is a 87-year-old female past medical history of atrial fibrillation, SVT, heart failure, GI bleed likely related to hemorrhoids requiring transfusion in the last 2 weeks, and diabetes presenting here via ambulance from her home. Patient with GI bleeding issues over the past month. Hospitalized here and had EGD and scope. Anticipating outpatient capsule studies. Appears to been restarted on Coumadin. Discharged the end of February to and spent a week there. Home for about a week. Not eating for more than a week. No falls or syncope. Is able to ambulate to the bathroom at home but weaker. Requiring significant assist with ADLs and even with significant family support family is having difficulties with this. Very concerned that she is not eating. Intermittent some left-sided abdominal pain that comes and goes. Denies chest pain or shortness of breath. Noted some black stools and some diarrhea over the last day or so. Did test positive for COVID just over a week ago by report. Denies URI symptoms. PAST MEDICAL HISTORY: As noted above MEDICATIONS: Reviewed home medication list SOCIAL HISTORY: Lives at home significant support from family PHYSICAL EXAM: GENERAL: alert and oriented in no acute distress on stretcher Head: normocephalic and atraumatic EYES: No injection, discharge or icterus. NECK: Trachea midline. ENT: Mucous membranes pink and moist. LUNGS: Airway patent. No retractions. Breath sounds clear anteriorly HEART: Irregular irregular rate and rhythm. No chest wall tenderness ABDOMEN: Soft and non-tender, without guarding or rebound. No masses Rectal: With FRAN marcos performed with a few flecks Hemoccult positive brownish stool. SKIN: Acyanotic, warm, dry, without rashes EXTREMITIES: Without swelling, tenderness or deformity NEUROLOGICAL: No focal deficits. No aphasia. No facial droop or slurred speech. Normal strength and tone in the extremities. Sensation to gross touch normal. EK bpm atrial fibrillation. No acute ST segment elevation or depression. Low voltage noted. QTc 418. CONTINUOUS CARDIAC MONITORING: was ordered and showed a heart rate of 80s bpm in atrial fibrillation Patient's laboratory studies and imaging reviewed. Differential includes Diverticulosis, AVM, coagulopathy, colitis, inflammatory bowel disease, malignancy, Abby-Lewis tear, esophagitis, peptic ulcer disease, variceal bleed, gastritis, epistaxis, fissure, hemorrhoids, as well as other pathologies. IMPRESSION/MEDICAL DECISION MAKING: Trace Hemoccult positive. Will give some Protonix pending blood counts. History of GI bleed but scopes last month from GI reports without significant findings. Is planning to have outpatient capsule study for further differentiation but question of possible hemorrhoid related bleeding. Benign abdomen on exam but some intermittent pain in the left abdomen. Will obtain CT scan to determine if any pain. Denies renal nausea. Unable to truly elucidate why she only ate but she feels "sick "as soon as she eats something. I have been trying to do boost and Ensure at home. Does not appear emaciated at this time. Basic labs/chemistries and electrolytes checked. Blood work here without a leukocytosis and minimal anemia. Much improved from previous. Does not require transfusion. Doubt sepsis. Lactate normal. Sodium potassium appear normal. Significant hypomagnesemia of 0.9 noted. Troponin normal. Doubt cardiac etiology. INR 1.2. Creatinine not far off baseline at 1.[address] scan ordered of the abdomen pelvis and radiology report reviewed without significant acute pathology. Updated patient and son at bedside. Given concerns for clear to thrive/decreased intake and weakness with hypomagnesemia will bring into the hospital for further care. Patient is still positive for COVID-19 may be contributing some to her symptoms. Patient with some difficulty using the pure wick but very unsteady when even attempting to try to ambulate. Patient offered Torres but will continue to try PureWick at this time. Hospitalist team contacted. DIAGNOSIS: Intermittent abdominal pain, black stool, weakness, hypomagnesemia, COVID-19 DISPOSITION: Hospitalist will evaluate Patient was agreeable with this plan. Past Med/Surg History Medical History Persistent atrial fibrillation Nonsustained ventricular tachycardia Paroxysmal SVT (supraventricular tachycardia) Paroxysmal atrial tachycardia Tricuspid regurgitation Mitral regurgitation Chronic diastolic CHF (congestive heart failure) CKD (chronic kidney disease) stage 3, GFR 30-59 ml/min Diabetes mellitus type 2 in obese History of breast cancer Hyperlipidemia Hypertension Surgical History History of partial mastectomy of left breast History of appendectomy H/O bilateral oophorectomy S/P JAYNE (total abdominal hysterectomy) Bilateral cataracts Family History Other No significant family history Social History Smoking Status: Never smoker Hx Alcohol Use: Yes Alcohol type: wine Hx Substance Use: No Preferred Language: Cypriot Communication Ability: Effective Gis Database Administrator Required: No Beliefs That Will Affect Care: None Current Living Situation: Alone Current Living Situation Comment: home alone, daughter in visiting from [place]. Son lives close by. current occupational status: retired Feels Safe at Home: Yes Assistive Devices: Cane and Walker Allergies Allergies Allergy/AdvReac Type Severity Reaction Status Date / Time tramadol Allergy Severe HALLUCINATIONS-PER Verified 03/09/23 15:34 GMG bacitracin Allergy Mild CAUSED EYE Verified 03/09/23 15:34 PROBLEMS neomycin Allergy Mild Rash Verified 03/09/23 15:34 polymyxin B Allergy Mild CAUSED EYE Verified 03/09/23 15:34 PROBLEMS Aminoglycosides Allergy Unknown Unknown Verified 03/09/23 15:34 aspirin AdvReac Severe HX OF GI Verified 02/20/23 16:07 BLEED ibuprofen AdvReac Severe HX OF GI Verified 03/09/23 15:34 BLEED naproxen [From Aleve] AdvReac Severe HX OF GI Verified 03/09/23 15:34 BLEED NSAIDS (Non-Steroidal AdvReac Severe HX OF GI Verified 03/09/23 15:34 Anti-Inflamma BLEED doxycycline AdvReac Intermediate HALLUCINATI Verified 03/09/23 15:34 ONS nitrofurantoin AdvReac Intermediate HEADACHES Verified 03/09/23 15:34 [From Macrobid] Sulfa (Sulfonamide AdvReac Intermediate NAUSEA, Verified 03/09/23 15:34 Antibiotics) VOMITING, BAD HEADACHE triamterene AdvReac Intermediate ULCERS Verified 03/09/23 15:34 Home Meds Home Medications Medication Instructions Recorded Confirmed cholecalciferol (vitamin D3) 25 1,000 unit PO DAILY 12/29/18 03/27/23 mcg (1,000 unit) capsule (Vitamin D3) cyanocobalamin (vitamin B-12) 1,000 mcg PO DAILY 12/29/18 03/27/23 1,000 mcg tablet (Vitamin B-12) glipizide 2.5 mg tablet, extended 2.5 mg PO DAILY 12/29/18 03/27/23 release 24 hr (Glucotrol XL) lorazepam 0.5 mg tablet (Ativan) 0.5 mg PO HS Anxiety 12/29/18 03/27/23 metoprolol succinate 100 mg 100 mg PO QAM 12/29/18 03/27/23 tablet,extended release 24 hr (Toprol XL) triamcinolone acetonide 0.1 % 1 applic topical BID PRN Itching 12/29/18 03/27/23 topical cream (Triderm) amlodipine 2.5 mg tablet 2.5 mg PO QAM 02/20/23 03/27/23 atorvastatin 80 mg tablet 80 mg PO QAM 02/20/23 03/27/23 docusate sodium 100 mg capsule 100 mg PO DAILY 02/20/23 03/27/23 hydrocodone 5 mg-acetaminophen 325 1 tab PO BID PRN Pain, Severe 02/20/23 03/27/23 mg tablet lisinopril 20 mg tablet 20 mg PO DAILY 02/20/23 03/27/23 metformin 500 mg tablet 500 mg PO BIDM 02/20/23 03/27/23 furosemide 40 mg tablet 40 mg PO 5XWK 02/28/23 03/27/23 metoprolol succinate 100 mg 50 mg PO QPM 03/09/23 03/27/23 tablet,extended release 24 hr lorazepam 0.5 mg tablet 0.5 mg PO DAILY PRN Anxiety 03/27/23 03/27/23 pantoprazole 40 mg tablet,delayed 40 mg PO DAILY 03/27/23 03/27/23 release polyethylene glycol 3350 17 gram 17 g PO DAILY PRN Constipation 03/27/23 03/27/23 oral powder packet (Miralax) Previous Rx's Medication Instructions Recorded ferrous sulfate 325 mg (65 mg 325 mg PO BIDM #60 tabs 03/11/23 iron) tablet,delayed release Results & Data (ED) Vital Signs Vital Signs - 24 hr 03/27/23 14:54 03/27/23 15:40 03/27/23 15:52 Temperature 36.6 C Temperature Source Oral Pulse Rate 80 88 80 Pulse Rate from SpO2 Sensor Pulse Rhythm Irregular Regular Pulse Strength Normal Respiratory Rate 22 20 Respiratory Effort / Characteristics Non-Labored Spontaneous Respiratory Depth Normal Respiratory Pattern Regular Blood Pressure 114/63 Blood Pressure Mean 80 Blood Pressure Position Sitting Pulse Oximetry 98 94 Oxygen Delivery Method Room Air Room Air Sepsis Recent Fever Within 48 Hours No Sepsis New/Unexplained Change in Mental Status No Sepsis Action Taken by Nursing No Action Required 03/27/23 15:53 03/27/23 16:00 03/27/23 17:06 Temperature Temperature Source Pulse Rate 80 80 85 Pulse Rate from SpO2 Sensor 82 Pulse Rhythm Pulse Strength Respiratory Rate 23 21 19 Respiratory Effort / Characteristics Respiratory Depth Respiratory Pattern Blood Pressure Blood Pressure Mean Blood Pressure Position Pulse Oximetry 98 99 98 Oxygen Delivery Method Sepsis Recent Fever Within 48 Hours Sepsis New/Unexplained Change in Mental Status Sepsis Action Taken by Nursing 03/27/23 18:00 03/27/23 19:00 03/27/23 19:09 Temperature Temperature Source Pulse Rate 84 92 H 83 Pulse Rate from SpO2 Sensor Pulse Rhythm Pulse Strength Respiratory Rate 20 21 22 Respiratory Effort / Characteristics Respiratory Depth Respiratory Pattern Blood Pressure 134/73 Blood Pressure Mean 93 Blood Pressure Position Pulse Oximetry 98 Oxygen Delivery Method Sepsis Recent Fever Within 48 Hours Sepsis New/Unexplained Change in Mental Status Sepsis Action Taken by Nursing 03/27/23 20:11 Temperature Temperature Source Pulse Rate 80 Pulse Rate from SpO2 Sensor Pulse Rhythm Pulse Strength Respiratory Rate Respiratory Effort / Characteristics Respiratory Depth Respiratory Pattern Blood Pressure Blood Pressure Mean Blood Pressure Position Pulse Oximetry Oxygen Delivery Method Sepsis Recent Fever Within 48 Hours Sepsis New/Unexplained Change in Mental Status Sepsis Action Taken by Nursing Laboratory Data 03/27/23 16:02 03/27/23 16:02 Lab Results 03/27/23 03/27/23 03/27/23 Range/Units 15:42 16:02 19:20 WBC 8.52 (4.8-10.8) K/ul RBC 3.83 L (4.20-5.40) M/uL Hgb 11.3 L (12.0-16.0) g/dl Hct 34.9 L (37.0-47.0) % MCV 91.1 (80.0-100.0) fL MCH 29.5 (25.0-34.0) pg MCHC 32.4 (32.0-36.0) g/dL RDW Std Deviation 51.1 H (36.4-46.3) fL RDW Coeff of Jareth 15.7 H (11.5-14.5) % Plt Count 249 (130-400) K/uL MPV 10.8 (9.4-12.4) fL Immature Gran % (Auto) 0.6 % Neut % (Auto) 71.9 % Lymph % (Auto) 14.6 % Grimes % (Auto) 10.0 % Eos % (Auto) 2.5 % Baso % (Auto) 0.4 % Neut # (Auto) 6.14 (1.40-6.50) K/uL Lymph # (Auto) 1.24 (1.20-3.40) K/uL Grimes # (Auto) 0.85 H (0.11-0.59) K/uL Eos # (Auto) 0.21 (0.00-0.50) K/uL Baso # (Auto) 0.03 (0.00-0.20) K/uL Immature Gran # (Auto) 0.05 (0.01-0.20) K/uL PT 12.8 H (9.0-12.0) Seconds INR 1.2 H (0.9-1.1) Sodium 137 (136-145) mmol/L Potassium 4.1 (3.5-5.1) mmol/L Chloride 103 (98-107) mmol/L Carbon Dioxide 22 (21-32) mmol/L Anion Gap 12 H (3-11) BUN 27 H (6-23) mg/dl Creatinine 1.34 H (0.6-1.2) mg/dl Est Cr Clr Drug Dosing 26.1 ml/min Est GFR ( Amer) 40.9 ml/min Est GFR (Non-Af Amer) 35.3 ml/min BUN/Creatinine Ratio 20.1 H (10-20) Glucose 101 H (70-99(Fasting)) mg/dl Lactate 1.6 (0.4-2.0) mmol/L Calcium 8.0 L (8.6-10.3) mg/dl Magnesium 0.9 L* (1.7-2.4) mg/dl Total Bilirubin 1.0 (0.2-1.0) mg/dl AST 19 (13-39) U/L ALT 11 (7-52) U/L Alkaline Phosphatase 80 (34-104) U/L Troponin I High Sens 9.2 (0-14) pg/ml Total Protein 7.4 (6.0-8.3) gm/dl Albumin 3.3 L (3.4-5.0) gm/dl Globulin 4.1 H (2.5-4.0) gm/dl Albumin/Globulin Ratio 0.8 L (0.9-2) TSH 4.294 (0.300-4.500) uIu/ml POC Stool Occult Blood Positive A (Negative) SARS-CoV-2, RNA, NAAT POSITIVE A* (NEGATIVE) Blood Type A Positive Antibody Screen NEGATIVE Administered Medications Discontinued Medications Sodium Chloride (Nss) 500 mls @ 999 mls/hr IV .Q31M RAIZA Stop: 03/27/23 16:15 Last Infusion: 03/27/23 19:11 Dose: Infused Documented By: Admin: 03/27/23 17:24 Dose: 999 mls/hr Documented By: VERÓNICA Pantoprazole Sodium 80 mg/ (Dextrose) 120 mls @ 480 mls/hr IV ONE STA Stop: 03/27/23 15:55 Last Infusion: 03/27/23 19:11 Dose: Infused Documented By: Admin: 03/27/23 17:24 Dose: 480 mls/hr Documented By: VERÓNICA Magnesium Sulfate/Dextrose (Magnesium Sulfate / D5w) 1 gm in 100 mls @ 200 mls/hr IV Q30M RAIZA Stop: 03/27/23 17:59 Last Infusion: 03/27/23 20:05 Dose: Infused Documented By: Admin: 03/27/23 19:35 Dose: 200 mls/hr Documented By: Infusion: 03/27/23 19:32 Dose: Infused Documented By: Admin: 03/27/23 19:02 Dose: 200 mls/hr Documented By: ARIANA Magnesium Sulfate/Dextrose (Magnesium Sulfate / D5w) 1 gm in 100 mls @ 200 mls/hr IV Q30M RAIZA Stop: 03/27/23 19:59 Last Admin: 03/27/23 20:38 Dose: 200 mls/hr Documented By: Infusion: 03/27/23 20:37 Dose: Infused Documented By: Admin: 03/27/23 20:07 Dose: 200 mls/hr Documented By: [facility] Imaging Data Radiologist's Impression: Chest X-Ray 03/27/23 15:40 XR chest 1V portable HISTORY: weakness, not eating, abd pain COMPARISON: Chest 01/09/2008. FINDINGS: No pneumothorax. No pleural effusions. The heart is mildly enlarged. There are calcifications within the aortic knob. No focal lung consolidations to suggest a pneumonia. No evidence for pulmonary edema. No acute fractures. Degenerative changes within the shoulders. IMPRESSION: Mild cardiomegaly. Otherwise, no acute process within the chest. ACT 112: Negative or not required by law. Electronically signed by: Rian Torres M.D. 03/27/2023 5:05 PM Abdomen/Pelvis CT 03/27/23 16:[address] WITHOUT CONTRAST CT DOSE: 1039.77 mGy.cm HISTORY: not eating, L abd pain, black stool TECHNIQUE: Multiaxial CT images of the abdomen and pelvis were performed without contrast. A dose lowering technique was utilized adhering to the principles of ALARA. COMPARISON STUDY: Abdomen and pelvis CT 12/21/2007. FINDINGS: There is a trace left pleural effusion. Mild interstitial thickening at the lung bases. This may be chronic. Small peripheral density within the base of the right lower lobe on image 28 may represent subsegmental atelectasis. The heart is mildly enlarged. No pneumoperitoneum. No pneumatosis. No acute fractures identified. There is a small hiatus hernia. 5 cm duodenal diverticulum noted. The unenhanced liver, gallbladder, spleen, pancreas, and adrenal glands are unremarkable. Mild bilateral perinephric edema is likely chronic. A few subcentimeter hypodense lesions within the kidneys are technically too small to characterize but statistically represent cysts. No renal or ureteral stones. No hydronephrosis. Extensive calcified plaque within the abdominal aorta which appears normal in caliber. No retroperitoneal or pelvic lymphadenopathy. There is mild pelvic floor collapse. Prior hysterectomy. No retroperitoneal or pelvic lymphadenopathy. No pelvic free fluid. The bladder is unremarkable. Suboptimal evaluation for bowel pathology due to the lack of intravenous and oral contrast. However, there is no definite bowel wall thickening or obstruction. Prior appendectomy. Calcified nodule adjacent to the ascending colon. This is likely benign. Colonic diverticulosis. No evidence for acute diverticulitis. IMPRESSION: 1. No bowel wall thickening or obstruction. 2. No hydronephrosis. 3. Colonic diverticulosis. No evidence for acute diverticulitis. 4. Trace left pleural effusion. 5. Small hiatus hernia. 6. Additional findings as described above. ACT 112: Negative or not required by law. Electronically signed by: Rian Torres M.D. 03/27/2023 5:24 PM Discharge Plan Visit Data Chief Complaint: GI Assessment Stated Complaint: GI ISSUES ED Provider: Arnulfo Spicer Discharge Problem: Weakness, Hypomagnesemia, Intermittent abdominal pain, Black stool Patient Disposition: Being Evaluated by Hospitalist Forms Stand Alone Forms: [facility] Prescriptions Prescriptions: No Action metoprolol succinate [Toprol XL] 100 mg tablet extended release 24 hr 100 mg PO QAM Rx Instructions: TAKES 100 MG QAM, THEN 50 MG QHS. triamcinolone acetonide [Triderm] 0.1 % cream 1 applic topical BID PRN (Reason: Itching) lorazepam [Ativan] 0.5 mg tablet 0.5 mg PO HS glipizide [Glucotrol XL] 2.5 mg tablet extended release 24hr 2.5 mg PO DAILY Rx Instructions: TAKE 30 MINUTES PRIOR TO MEAL cyanocobalamin (vitamin B-12) [Vitamin B-12] 1,000 mcg Tablet 1,000 mcg PO DAILY cholecalciferol (vitamin D3) [Vitamin D3] 1,000 unit Capsule 1,000 unit PO DAILY metformin 500 mg tablet 500 mg PO BIDM atorvastatin 80 mg tablet 80 mg PO QAM hydrocodone-acetaminophen 5-325 mg tablet 1 tab PO BID PRN (Reason: Pain, Severe) lisinopril 20 mg Tablet 20 mg PO DAILY amlodipine 2.5 mg tablet 2.5 mg PO QAM docusate sodium 100 mg Capsule 100 mg PO DAILY Rx Instructions: IF NEEDED MAY TAKE SECOND DOSE QPM. furosemide 40 mg tablet 40 mg PO 5XWK Rx Instructions: Skip wed & sat metoprolol succinate 100 mg tablet extended release 24 hr 50 mg PO QPM ferrous sulfate 325 mg (65 mg iron) Tablet,Delayed Release (Dr/Ec) 325 mg PO BIDM Qty: 60 0RF lorazepam 0.5 mg Tablet 0.5 mg PO DAILY PRN (Reason: Anxiety) polyethylene glycol 3350 [Miralax] 17 gram powder in packet 17 g PO DAILY PRN (Reason: Constipation) pantoprazole 40 mg tablet,delayed release (DR/EC) 40 mg PO DAILY Referrals Referrals: Liliane Lobato DO [Primary Care Provider] -
[2023-03-27 16:39] LABS: BUN Creatinine Ratio 20.1 (10-20); Creatinine Clr Calc Pharmacy 26.1 ml/min; Est GFR (African American) 40.9 ml/min; Est GFR (Non-African American) 35.3 ml/min; Potassium 4.1 mmol/L (3.5-5.1)
[2023-03-27 16:44] LABS: Troponin I High Sensitivity 9.2 pg/ml (0-14)
[2023-03-27 16:46] LABS: Albumin Globulin Ratio 0.8 (0.9-2); Albumin Level 3.3 gm/dl (3.4-5.0); Globulin 4.1 gm/dl (2.5-4.0); INR 1.2 (0.9-1.1); Magnesium 0.9 mg/dl (1.7-2.4); Prothrombin Time 12.8 Seconds (9.0-12.0); Total Protein 7.4 gm/dl (6.0-8.3)
[2023-03-27 16:53] LABS: Thyroid Stimulating Hormone 4.294 uIu/ml (0.300-4.500)
--- NOTE | 2023-03-27 17:08 | XRay Report ---
XR chest 1V portable HISTORY: weakness, not eating, abd pain COMPARISON: Chest 01/09/2008. FINDINGS: No pneumothorax. No pleural effusions. The heart is mildly enlarged. There are calcificatio ns within the aortic knob. No focal lung consolidations to suggest a pneumonia. No evidence for pulmo nary edema. No acute fractures. Degenerative changes within the shoulders. IMPRESSION: Mild cardiomegaly. Otherwise, no acute process within the chest. ACT 112: Negative or not required by law. Electronically signed by: Rian Torres M.D. 03/27/2023 5:05 PM
--- NOTE | 2023-03-27 17:25 | CT Scan Report ---
ABDOMEN AND PELVIS CT WITHOUT CONTRAST CT DOSE: 1039.77 mGy.cm HISTORY: not eating, L abd pain, black stool TECHNIQUE: Multiaxial CT images of the abdomen and pelvis were performed without contrast. A dose lo wering technique was utilized adhering to the principles of ALARA. COMPARISON STUDY: Abdomen and pelvis CT 12/21/2007. FINDINGS: There is a trace left pleural effusion. Mild interstitial thickening at the lung bases. Thi s may be chronic. Small peripheral density within the base of the right lower lobe on image 28 may re present subsegmental atelectasis. The heart is mildly enlarged. No pneumoperitoneum. No pneumatosis. No acute fractures identified. There is a small hiatus hernia. 5 cm duodenal diverticulum noted. The unenhanced liver, gallbladder, spleen, pancreas, and adrenal glands are unremarkable. Mild bilateral perinephric edema is likely chronic. A few subcentimeter hypodense lesions within the kidneys are meagan hnically too small to characterize but statistically represent cysts. No renal or ureteral stones. No hydronephrosis. Extensive calcified plaque within the abdominal aorta which appears normal in calibe r. No retroperitoneal or pelvic lymphadenopathy. There is mild pelvic floor collapse. Prior hysterect gonzalo. No retroperitoneal or pelvic lymphadenopathy. No pelvic free fluid. The bladder is unremarkable. Suboptimal evaluation for bowel pathology due to the lack of intravenous and oral contrast. However, there is no definite bowel wall thickening or obstruction. Prior appendectomy. Calcified nodule venkat cent to the ascending colon. This is likely benign. Colonic diverticulosis. No evidence for acute div erticulitis. IMPRESSION: 1. No bowel wall thickening or obstruction. 2. No hydronephrosis. 3. Colonic diverticulosis. No evidence for acute diverticulitis. 4. Trace left pleural effusion. 5. Small hiatus hernia. 6. Additional findings as described above. ACT 112: Negative or not required by law. Electronically signed by: Rian Torres M.D. 03/27/2023 5:24 PM
[2023-03-27] MEDS: MAGNESIUM SULFATE / D5W 1 GM/100 ML BAG IV SCH ×4 (19:02→20:38)
--- NOTE | 2023-03-27 19:26 | History & Physical Report ---
Date of Service March 27, 2023 Assessment & Plan (1) Weakness: (2) JOLIE (acute kidney injury): (3) Hypomagnesemia: (4) Chronic diastolic CHF (congestive heart failure): (5) Hypertension: (6) Black stool: (7) Anemia: (8) Persistent atrial fibrillation: Plan 87-year-old female with symptoms of abdominal pain, generalized weakness, ambulatory dysfunction and noted on labs to have severe hypomagnesemia Admit to [facility] Vitals as protocol Activity as tolerated Will need PT OT evaluation Regular diet Reviewed allergies, CT scan report, labs Ordered magnesium replacement Will recheck in a.m. Anemia appears to be chronic. Unlikely secondary to an acute GI bleed Will continue to monitor History of hypertension continue lisinopril daily Type 2 diabetes: Continue home meds History of CHF: Continue diuretics Urinary obstruction: Bladder scan shows 350 mL urine. Patient advised for intermittent catheterization however is refusing at this time. Patient is a full code. Spent 65 minutes in evaluating, documenting and communicating with providers, patient, family about plan of care. History of Present Illness Chief Complaint: Generalised weakness increased urinary urgency Primary Care Provider: Liliane Lobato DO 87-year-old female who has a significant past medical history of atrial fibrill ation previously on Coumadin that was recently discontinued in setting of GI bleed, history of nonsustained V. tach, tricuspid regurg, mitral regurg, chronic diastolic CHF, CKD stage III, T2DM, HTN, HLD, history of breast cancer status post left mastectomy and other problems listed below who presented to ED secondary to generalized weakness and poor appetite. Of significance patient had 2 recent hospitalizations. She was initially hospitalized 02/20 to 02/28 secondary to suspected GI bleed in setting of supratherapeutic INR. She underwent EGD and colonoscopy which were relatively unremarkable. Colonoscopy did reveal internal hemorrhoids as well as diverticulosis but no overt cause of bleeding. It was recommended that she undergo an outpatient capsule study for further evaluation. She was then discharged home and rehospitalized 03/09 to 03/11 secondary to weakness and bright red blood per rectum. She was again seen and evaluated by GI who deferred repeat endoscopy and felt that her symptoms were likely related to internal hemorrhoids and constipation. She was prescribed MiraLAX. She was seen and evaluated by PT and OT and rehab was recommended. She was discharged to [facility] where she was admitted until 1 week ago. Patient was brought in by her family because she needed significant assist with her activities of daily living and is unable to ambulate much. Patient complained o f lower abdominal pain and feels like her bladder is distended. She has no respiratory symptoms at this time. Patient was evaluated in the ER and was noted to have severe hypomagnesemia and was started on IV supplementation. Denies any chest pain shortness of breath fever or cough States that she had an episode of black stool over the past 2 days. Allergies Allergy/AdvReac Type Severity Reaction Status Date / Time tramadol Allergy Severe HALLUCINATIONS-PER Verified 03/09/23 15:34 GMG bacitracin Allergy Mild CAUSED EYE Verified 03/09/23 15:34 PROBLEMS neomycin Allergy Mild Rash Verified 03/09/23 15:34 polymyxin B Allergy Mild CAUSED EYE Verified 03/09/23 15:34 PROBLEMS Aminoglycosides Allergy Unknown Unknown Verified 03/09/23 15:34 aspirin AdvReac Severe HX OF GI Verified 02/20/23 16:07 BLEED ibuprofen AdvReac Severe HX OF GI Verified 03/09/23 15:34 BLEED naproxen [From Aleve] AdvReac Severe HX OF GI Verified 03/09/23 15:34 BLEED NSAIDS (Non-Steroidal AdvReac Severe HX OF GI Verified 03/09/23 15:34 Anti-Inflamma BLEED doxycycline AdvReac Intermediate HALLUCINATI Verified 03/09/23 15:34 ONS nitrofurantoin AdvReac Intermediate HEADACHES Verified 03/09/23 15:34 [From Macrobid] Sulfa (Sulfonamide AdvReac Intermediate NAUSEA, Verified 03/09/23 15:34 Antibiotics) VOMITING, BAD HEADACHE triamterene AdvReac Intermediate ULCERS Verified 03/09/23 15:34 Home Medications Medication Instructions Recorded Confirmed Type cholecalciferol (vitamin D3) 25 1,000 unit PO DAILY 12/29/18 03/27/23 History mcg (1,000 unit) capsule (Vitamin D3) cyanocobalamin (vitamin B-12) 1,000 mcg PO DAILY 12/29/18 03/27/23 History 1,000 mcg tablet (Vitamin B-12) glipizide 2.5 mg tablet, extended 2.5 mg PO DAILY 12/29/18 03/27/23 History release 24 hr (Glucotrol XL) lorazepam 0.5 mg tablet (Ativan) 0.5 mg PO HS Anxiety 12/29/18 03/27/23 History metoprolol succinate 100 mg 100 mg PO QAM 12/29/18 03/27/23 History tablet,extended release 24 hr (Toprol XL) triamcinolone acetonide 0.1 % 1 applic topical BID PRN Itching 12/29/18 03/27/23 History topical cream (Triderm) amlodipine 2.5 mg tablet 2.5 mg PO QAM 02/20/23 03/27/23 History atorvastatin 80 mg tablet 80 mg PO QAM 02/20/23 03/27/23 History docusate sodium 100 mg capsule 100 mg PO DAILY 02/20/23 03/27/23 History hydrocodone 5 mg-acetaminophen 325 1 tab PO BID PRN Pain, Severe 02/20/23 03/27/23 History mg tablet lisinopril 20 mg tablet 20 mg PO DAILY 02/20/23 03/27/23 History metformin 500 mg tablet 500 mg PO BIDM 02/20/23 03/27/23 History furosemide 40 mg tablet 40 mg PO 5XWK 02/28/23 03/27/23 History metoprolol succinate 100 mg 50 mg PO QPM 03/09/23 03/27/23 History tablet,extended release 24 hr ferrous sulfate 325 mg (65 mg 325 mg PO BIDM #60 tabs 03/11/23 03/27/23 Rx iron) tablet,delayed release lorazepam 0.5 mg tablet 0.5 mg PO DAILY PRN Anxiety 03/27/23 03/27/23 History pantoprazole 40 mg tablet,delayed 40 mg PO DAILY 03/27/23 03/27/23 History release polyethylene glycol 3350 17 gram 17 g PO DAILY PRN Constipation 03/27/23 03/27/23 History oral powder packet (Miralax) Past Med/Surg History Medical History Persistent atrial fibrillation Nonsustained ventricular tachycardia Paroxysmal SVT (supraventricular tachycardia) Paroxysmal atrial tachycardia Tricuspid regurgitation Mitral regurgitation Chronic diastolic CHF (congestive heart failure) CKD (chronic kidney disease) stage 3, GFR 30-59 ml/min Diabetes mellitus type 2 in obese History of breast cancer Hyperlipidemia Hypertension Surgical History History of partial mastectomy of left breast History of appendectomy H/O bilateral oophorectomy S/P JAYNE (total abdominal hysterectomy) Bilateral cataracts Family History Other No significant family history Social History Smoking Status: Never smoker Hx Alcohol Use: Yes Alcohol type: wine Hx Substance Use: No Preferred Language: Belarusian Communication Ability: Effective Occupational Medicine Specialist Required: No Beliefs That Will Affect Care: None Current Living Situation: Alone Current Living Situation Comment: home alone, daughter in visiting from [place]. Son lives close by. current occupational status: retired Feels Safe at Home: Yes Assistive Devices: Cane and Walker Review of Systems Review of Systems: As noted in H&P rest reviewed as negative Physical Exam Physical Exam: HEENT:No JVD. CV: S1/S2+ , no murmurs Resp: Air entry present bilaterally. GI: Abdomen distended , . Musculoskeletal: examined for joint tenderness. Skin: no rashes Psych: Normal affect Neuro: Patient is awake alert Results & Data Results & Data Vital Signs (Past 12 Hours) Vital Signs Temp Pulse Resp BP Pulse Ox O2 Del Method 03/27/23 18:00 84 20 98 03/27/23 17:06 85 19 98 03/27/23 16:00 80 21 99 03/27/23 15:53 80 23 98 03/27/23 15:52 80 03/27/23 15:40 88 20 94 Room Air 03/27/23 14:54 36.6 C 80 22 114/63 98 Room Air Laboratory Results Home Medications Medication Instructions Recorded Confirmed cholecalciferol (vitamin D3) 25 1,000 unit PO DAILY 12/29/18 03/27/23 mcg (1,000 unit) capsule (Vitamin D3) cyanocobalamin (vitamin B-12) 1,000 mcg PO DAILY 12/29/18 03/27/23 1,000 mcg tablet (Vitamin B-12) glipizide 2.5 mg tablet, extended 2.5 mg PO DAILY 12/29/18 03/27/23 release 24 hr (Glucotrol XL) lorazepam 0.5 mg tablet (Ativan) 0.5 mg PO HS Anxiety 12/29/18 03/27/23 metoprolol succinate 100 mg 100 mg PO QAM 12/29/18 03/27/23 tablet,extended release 24 hr (Toprol XL) triamcinolone acetonide 0.1 % 1 applic topical BID PRN Itching 12/29/18 03/27/23 topical cream (Triderm) amlodipine 2.5 mg tablet 2.5 mg PO QAM 02/20/23 03/27/23 atorvastatin 80 mg tablet 80 mg PO QAM 02/20/23 03/27/23 docusate sodium 100 mg capsule 100 mg PO DAILY 02/20/23 03/27/23 hydrocodone 5 mg-acetaminophen 325 1 tab PO BID PRN Pain, Severe 02/20/23 03/27/23 mg tablet lisinopril 20 mg tablet 20 mg PO DAILY 02/20/23 03/27/23 metformin 500 mg tablet 500 mg PO BIDM 02/20/23 03/27/23 furosemide 40 mg tablet 40 mg PO 5XWK 02/28/23 03/27/23 metoprolol succinate 100 mg 50 mg PO QPM 03/09/23 03/27/23 tablet,extended release 24 hr lorazepam 0.5 mg tablet 0.5 mg PO DAILY PRN Anxiety 03/27/23 03/27/23 pantoprazole 40 mg tablet,delayed 40 mg PO DAILY 03/27/23 03/27/23 release polyethylene glycol 3350 17 gram 17 g PO DAILY PRN Constipation 03/27/23 03/27/23 oral powder packet (Miralax) Previous Rx's Medication Instructions Recorded ferrous sulfate 325 mg (65 mg 325 mg PO BIDM #60 tabs 03/11/23 iron) tablet,delayed release Current Inpatient Medications Magnesium Sulfate/Dextrose (Magnesium Sulfate / D5w) 1 gm in 100 mls @ 200 mls/hr IV Q30M RAIZA Stop: 03/27/23 19:59 Chest X-Ray 03/27/23 15:40 XR chest 1V portable HISTORY: weakness, not eating, abd pain COMPARISON: Chest 01/09/2008. FINDINGS: No pneumothorax. No pleural effusions. The heart is mildly enlarged. There are calcifications within the aortic knob. No focal lung consolidations to suggest a pneumonia. No evidence for pulmonary edema. No acute fractures. Degenerative changes within the shoulders. IMPRESSION: Mild cardiomegaly. Otherwise, no acute process within the chest. ACT 112: Negative or not required by law. Electronically signed by: Rian Torres M.D. 03/27/2023 5:05 PM Abdomen/Pelvis CT 03/27/23 16:[address] WITHOUT CONTRAST CT DOSE: 1039.77 mGy.cm HISTORY: not eating, L abd pain, black stool TECHNIQUE: Multiaxial CT images of the abdomen and pelvis were performed without contrast. A dose lowering technique was utilized adhering to the principles of ALARA. COMPARISON STUDY: Abdomen and pelvis CT 12/21/2007. FINDINGS: There is a trace left pleural effusion. Mild interstitial thickening at the lung bases. This may be chronic. Small peripheral density within the base of the right lower lobe on image 28 may represent subsegmental atelectasis. The heart is mildly enlarged. No pneumoperitoneum. No pneumatosis. No acute fractures identified. There is a small hiatus hernia. 5 cm duodenal diverticulum noted. The unenhanced liver, gallbladder, spleen, pancreas, and adrenal glands are unremarkable. Mild bilateral perinephric edema is likely chronic. A few subcentimeter hypodense lesions within the kidneys are technically too small to characterize but statistically represent cysts. No renal or ureteral stones. No hydronephrosis. Extensive calcified plaque within the abdominal aorta which appears normal in caliber. No retroperitoneal or pelvic lymphadenopathy. There is mild pelvic floor collapse. Prior hysterectomy. No retroperitoneal or pelvic lymphadenopathy. No pelvic free fluid. The bladder is unremarkable. Suboptimal evaluation for bowel pathology due to the lack of intravenous and oral contrast. However, there is no definite bowel wall thickening or obstruction. Prior appendectomy. Calcified nodule adjacent to the ascending colon. This is likely benign. Colonic diverticulosis. No evidence for acute diverticulitis. IMPRESSION: 1. No bowel wall thickening or obstruction. 2. No hydronephrosis. 3. Colonic diverticulosis. No evidence for acute diverticulitis. 4. Trace left pleural effusion. 5. Small hiatus hernia. 6. Additional findings as described above. ACT 112: Negative or not required by law. Electronically signed by: Rian Torres M.D. 03/27/2023 5:24 PM Code Status & VTE Plan Code Status Patient is a full code VTE Prophylaxis Plan VTE Prophylaxis will be ordered: Yes
[2023-03-27 21:16] LABS: Appearance Urine Clear (Clear); Bacteria Urine Automated Negative (Negative); Bilirubin Urine Negative (Negative); Blood Urine Negative (Negative); Color Urine Yellow; Glucose Urine UA Negative (Negative); Ketones Urine Negative (Negative); Leukocyte Esterase Urine Trace (Negative); Nitrite Urine Negative (Negative); Protein Urine Negative (Negative); Specific Gravity Urine 1.008 (1.000-1.030); Urobilinogen Urine Negative (Negative)
[2023-03-27] MEDS ORDERED: GLUCOSE 10 TAB/TUBE PO PRN (21:19)
[2023-03-27] MEDS ORDERED: ALUMINUM/MAGNESIUM SUSP 30 ML UDC PO PRN (21:19)
[2023-03-27] MEDS ORDERED: CARBOHYDRATES FOR HYPOGLYCEMIA PO PRN (21:19)
[2023-03-27] MEDS ORDERED: GLUCAGON FOR INJ 1 MG VIAL SQ PRN (21:19)
[2023-03-27] MEDS ORDERED: DEXTROSE 50% 50 ML SYRINGE IV PRN (21:19)
[2023-03-27] MEDS ORDERED: ONDANSETRON INJ 2 MG/ML 2 ML VIAL IV PRN (21:19)
[2023-03-27] MEDS ORDERED: GLUCOSE 40% GEL 15 GM TUBE PO PRN (21:19)
[2023-03-27] MEDS ORDERED: ACETAMINOPHEN 325 MG TAB PO PRN (21:19)
[2023-03-27] MEDS ORDERED: POLYETHYLENE (MIRALAX) 17 GM PACK PO PRN (21:19)
[2023-03-27] MEDS ORDERED: SODIUM CHLORIDE 0.9% 1,000 ML IV SCH (21:19)
[2023-03-27] MEDS ORDERED: MAGNESIUM HYDROXIDE SUSP 30 ML UDC PO PRN (21:19)
[2023-03-27 21:23] LABS: RBC Urine Automated 0-4 /hpf (0-4)
[2023-03-27 21:24] LABS: Mucus Urine Present (None Prsent)
[2023-03-27] MEDS: INSULIN ASPART PER UNIT CHARGE SC SCH (21:55)
[2023-03-27] MEDS ORDERED: METOPROLOL SUCC 25MG EXT REL TAB PO STA (21:57)
[2023-03-27] MEDS: METOPROLOL SUCC 50MG EXT REL TAB PO SCH (21:59)
--- OUTSIDE RECORDS SUMMARY | 2023-03-27 23:37 | External Medical Summary ---
Author Name Unknown Address Unknown Organization K01:[facility]ATORY [facility] – [place], [place] - [address] [place] [address] Laboratory Report Ordering Provider Test Date Status TERRANCE ARREOLA 03/22/2023 14:07:37 Final Observation Date Value Abnormality Reference (Units ) Status Parathyrin.intact [Mass/volume] in Serum or Plasma 03/22/2023 14:07:37 37 15-65 (pg/mL) Final Performing Location [facility] – [place], [place] - [address] [place] [address]
--- OUTSIDE RECORDS SUMMARY | 2023-03-27 23:37 | External Medical Summary | Summary of Care ---
Author Name Unknown Organization [facility] Address [address] [place] [address] Phone [phone] Care Team Providers Care Cabin Equipment Supervisor Name Role Phone Sailaja Garland MD Primary Care Prov ider Reason for Visit * Reason Onset Date Comments Medication Refill 03/24/2023 Encounter Details Date Type Department Care Team (Late st Contact Info) Description 03/24/[address] [phone] Sailaja Garland MD [address] [place] [address] [place] [address] Allergies Active Allergy Reactions Criticality Noted Date Comments Naproxen Sodium Bleeding High 12/03/2009 Hs of GI bleed Aspirin Bleeding High 12/03/2009 Doxycycline Neuro complications (Please comment) Medium 10/23/2010 Hallucinations Ibuprofen Bleeding High 12/03/2009 Hx of GI bleed Nitrofurantoin Monohydrate Macrocrystals Neuro complications (Please comment) Low 09/16/2009 Headaches [id number] 01/25/2011 Caused eye problems Neosporin 05/30/2003 rash Sulfa Antibiotics 05/11/2002 nausea & vomiting Tramadol Hcl Unknown 12/03/2009 Triamterene 11/16/2022 ulcers documented as of this encounter (statuses as of 03/27/2023) Medications Medication Sig Dispensed Refills Start Date [...] FOR ITCHING 30 g 2 05/28/2020 Active BuzzoolaToLocalBanya Verio In Vitro Strip (Glucose Blood)Indications: Type 2 diabetes mellitus with hemoglobin A1c goal of less than 7.5% (HCC) Use to test blood sugar once a day DX e11.9 100 Strip 3 05/14/2021 Active BuzzoolaTouch Verio Flex System w/Device KitIndications:Typ e 2 [...] EVENING NEEDED 60 Capsule 5 08/25/2022 Active Additional Information Patient not taking.Reported on 03/22/2023 LORazepam 0.5 MG Oral Tablet (Ativan)Indication s:Persistent [...] Tablet 1 09/08/2022 Active OneTouch Delica Plus [id number] ns:Type 2 diabetes mellitus with hemoglobin A1c [...] THE MORNING 90 Tablet 3 11/21/2022 Active OneTouch Ultra In Vitro Strip (Glucose [...] THE MORNING 90 Tablet 3 12/29/2022 Active Metoprolol Succinate ER 100 MG Oral Tablet Extended Release 24 Hour (toPROL XL)Indications:Ess ential hypertension with goal blood pressure less than 140/90 TAKE 1 TABLET BY MOUTH IN THE MORNING AND 1/2 TABLET DAILY AT BEDTIME 135 Tablet 1 02/15/2023 Active Ferrous Sulfate 325 (65 Fe) MG Oral Tablet (Feosol) Take 1 Tablet by mouth 2 times a day with morning and evening meals. 0 03/11/2023 Active Furosemide 40 MG Oral Tablet (Lasix) One tablet Monday, , Monday, and Monday 0 03/22/2023 Active Pantoprazole Sodium 40 MG Oral Tablet Delayed Release (Protonix) One daily 90 Tablet 1 03/27/2023 Active Pantoprazole Sodium 40 MG Oral Tablet Delayed Release (Protonix) 1 Tablet. 0 02/23/2023 4 Discontinu ed(Refill) documented as of this encounter (statuses as of 03/27/2023) Active Problems Problem Noted Date Diagnosed Date Typical atrial flutter 03/29/2022 Seborrheic keratosis 06/01/2021 Type 2 diabetes mellitus wit h stage [...] as of this encounter (statuses as of 03/27/2023) Resolved Problems Problem Noted Date Diagnosed Date Resolved Date Atrial flutter, unspecified type 12/27/2021 02/08/2022 Chronic kidney disease, stage 3a 07/21/2020 03/23/2023 Overview: Per CKD protocol Anemia due to stage 3 chronic kidney [...] as of this encounter (statuses as of 03/27/2023) Immunizations Name Administration Dates Next Due COVID-19 [...] Miscellaneous Notes * Telephone Encounter - Sailaja Garland MD - 03/27/2023 9:35 AM EST Signed Prescriptions: Disp Refills Pantoprazole Sodium 40 MG Oral Tablet Miracle*90 Tab*1 Sig: One daily Authorizing Provider: SAILAJA GARLAND * Telephone Encounter - Lesia Gonzalez RN - 03/27/2023 9:01 AM ESTPending Prescriptions: Disp Refills Pantoprazole Sodium 40 MG Oral Tablet Miracle*90 Tab*1 Sig: One daily * Telephone Encounter - Birgit Baker OSA - 03/24/2023 1:02 PM EST Did you pend patient's preferred pharmacy and medication before forwarding?no Pharmacy: [id number] [id number] [facility] Pending Prescriptions: Disp Refills Pantoprazole Sodium 40 MG Oral Tablet Del* Si Tablet. Last Visit: 03/02/2023 (in office), Visit date not found (telemedicine) Next Visit: 03/31/2023 If no future appointments scheduled, and last appointment is greater than a year ago, please schedule patient for a follow-up appointment Last date the medication was ordered: 02.23.2023 90 day rx request Is this request for a controlled substance?No [...] Results Component Value Date/Time CREAT 1.5 (H) 03/22/2023 02:07 PM CREAT 1.1 (H) 01/29/2020 12:24 PM POTASSIUM 4.8 03/22/2023 02:07 PM POTASSIUM 5.1 01/29/2020 12:24 PM TSH 3.53 03/07/2023 01:38 PM TSH 3.100 12/29/2018 12:00 AM TSH 3.67 05/28/2018 02:35 PM LDLCALC 59 01/19/2023 01:07 PM LDLCALC 88 08/22/2019 12:30 PM LDLDIRECT 91 12/03/2021 09:52 AM LDLDIRECT 102 08/22/2019 12:30 PM LDLDIRECT NOT APPLICABLE 08/22/2019 12:30 PM ALT 15 01/19/2023 01:01 PM ALT 25 04/03/2019 10:51 AM HGBA1C 8.1 (H) 01/19/2023 01:07 PM HGBA1C 7.7 (H) 08/22/2019 12:30 PM documented in this encounter Plan of Treatment Upcoming Encounters Date Type Department Care Team (Late st Contact Info) Description 03/31/2023 11:10 AM EST Office Visit Family Medicine [address] [place] [phone] [place] [phone] 04/04/2023 5:10 PM EST 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 Pharmacy, [address] [place] [id number] [place] [address] 06/05/2023 2:00 PM EDT Office Visit Gastroenterology, [facility] [address] [place] [address] Jen Salgado CRNP [address] [place] [address] 07/04/2023 11:30 AM EDT Office Visit Family Medicine [address] [place] [phone] Liliane Lob[address] [place] [address] 07/27/2023 1:30 PM EDT Office Visit Cardiology [address] [place] [address] Cameron Becerra PA-C [address] [place] [address] 12/05/2023 2:30 PM EDT Office Visit Nephrology [address] [place] [address] ZemaRadha holman PA-C [address] [place] [address] Health Maintenance Due Date Last Done Comments Hepatitis B (1 of 3 - Risk 3-dose series) 1995 Depression Screening 08/03/2021 08/03/2020 Diabetic Foot Exam 02/08/2023 02/08/2022, 0 05/28/2020, 05/17/2019, Additional history exists Diabetic Eye Exam 03/15/2023 03/15/2022, , 11/03/2020, Additional history exists HbA1c 07/20/2023 01/19/2023, 08/2022, 12/03/2021, Additional history exists Albumin/Creatinine Ratio 11/17/2023 023, 03/29/2022, 01/06/2021, Additional history exists CKD HGB USE SMARTSET 48779 03/22/202403/22, 03/22/2023, 03/19/2023, Additional history exists CKD PHOS USE SMARTSET 20011 03/22/202403/13, 01/19/2023, 11/21/2022, Additional history exists DXA Scan 12/09/2027 12/08/2020, [...] filedocumented as of this encounter Care Teams Cabin Equipment Supervisor Relationship Specialty Start Date End Date Sailaja Garland MD [address] [place] [address] [place] [phone] PCP - General Family Medicine 01/04/19 documented as of this encounter
--- OUTSIDE RECORDS SUMMARY | 2023-03-27 23:37 | External Medical Summary ---
Author Name Unknown Address Unknown Organization K01:[facility] [place] [address] [place] [address] Laboratory Report Ordering Provider Test Date Status ELBACARLOS 03/22/2023 14:07:37 Final Observation Date Value Abnormality Reference (Units ) Status Iron 03/22/2023 14:07:37 74 33-151 (ug/dL) Final Iron-binding capacity 03/22/2023 14:07:37 182 Below low normal 250-425 (ug/dL) Final Transferrin Sat % 03/22/2023 14:07:37 41 15-55 (%) Final Performing Location [facility] [place] [address] [place] [address]
--- OUTSIDE RECORDS SUMMARY | 2023-03-27 23:37 | External Medical Summary ---
Author Name Unknown Address Unknown Organization K01:[facility] - [address] [place] [address] [place] [address] Laboratory Report Ordering Provider Test Date Status TERRANCE ARREOLA 03/22/2023 14:07:37 Final Observation Date Value Abnormality Reference (Units ) Status Magnesium 03/22/2023 14:07:37 1.4 Below low normal 1.5 -2.6 (mg/dL) Final Performing Location [facility]ATORY [facility] - [address] [place] [address]
--- OUTSIDE RECORDS SUMMARY | 2023-03-27 23:37 | External Medical Summary | Summary of Care ---
Author Name Unknown Organization [facility] Address [address] [place] [address] Phone [phone] Care Team Providers Care Esthetician Makeup Artist Name Role Phone Priyanka Falcon MD Primary Care Prov ider Reason for Visit * Reason Onset Date Comments Test Results 03/23/2023 Encounter Details Date Type Department Care Team (Late st Contact Info) Description 03/23/2023 Telephone NephrologyEdward [address] [place] [address] Carlene Kendrick MD [address] [place] [address] Test Results Allergies Active Allergy Reactions Criticality Noted Date Comments Naproxen Sodium Bleeding High 12/03/2009 Hs of GI bleed Aspirin Bleeding High 12/03/2009 Doxycycline Neuro complications (Please comment) Medium 10/23/2010 Hallucinations Ibuprofen Bleeding High 12/03/2009 Hx of GI bleed Nitrofurantoin Monohydrate Macrocrystals Neuro complications (Please comment) Low 09/16/2009 Headaches Hnuqdhve-Knikiicnn-Cd 01/25/2011 Caused eye problems Neosporin 05/30/2003 rash Sulfa Antibiotics 05/11/2002 nausea & vomiting Tramadol Hcl Unknown 12/03/2009 Triamterene 11/16/2022 ulcers documented as of this encounter (statuses as of 03/23/2023) Medications Medication Sig Dispensed Refills Start Date [...] FOR ITCHING 30 g 2 05/28/2020 Active [employer] REVAio In Vitro Strip (Glucose Blood)Indications:T ype 2 diabetes mellitus with hemoglobin A1c goal of less than 7.5% (HCC) Use to test blood sugar once a day DX e11.9 100 Strip 3 05/14/2021 Active For Your ImaginationTouch Verio Flex System w/Device KitIndications:Type 2 diabetes mellitus with hemoglobin A1c goal of less than 7.5% (HCC) Use as directed . Use to test blood sugar Dx e11.9 1 Kit 0 05/14/2021 Active Zoster Vac Recomb Adjuvanted 50 MCG/0.5ML Intramuscular Suspension Reconstituted (Shingrix)Indicatio ns:Need for shingles vaccine Inject 0.5 mL into a large muscle now and repeat dose in 60 to 180 days 1 Each 1 03/29/2022 Active Additional Information Patient not taking.Reported on 01/19/2023 Lisinopril 20 MG Oral Tablet (Prinivil)Indicatio ns:Essential hypertension with goal blood pressure less [...] on 03/22/2023 LORazepam 0.5 MG Oral Tablet (Ativan)Indications :Persistent [...] Tablet 1 09/08/2022 Active OneTouch Delica Plus [id number] s:Type 2 diabetes mellitus with hemoglobin A1c [...] Active OneTouch Ultra In Vitro Strip (Glucose Blood)Indications:T ype 2 [...] AT BEDTIME 135 Tablet 1 02/15/2023 Active Pantoprazole Sodium 40 MG Oral Tablet Delayed Release (Protonix) 1 Tablet. 0 02/23/2023 Active Ferrous Sulfate 325 (65 Fe) MG Oral Tablet (Feosol) Take 1 Tablet by mouth 2 times a day with morning and evening meals. 0 03/11/2023 Active Furosemide 40 MG Oral Tablet (Lasix) One tablet Monday, , Monday, and Monday 0 03/22/2023 Active documented as of this encounter (statuses as of 03/23/2023) Active Problems Problem Noted Date Diagnosed Date [...] as of this encounter (statuses as of 03/23/2023) Resolved Problems Problem Noted Date Diagnosed Date [...] as of this encounter (statuses as of 03/23/2023) Immunizations Name Administration Dates Next Due COVID-19 [...] Telephone Encounter - Kellen Kinney RN - 03/23/2023 2:03 PM EST TE with pt regarding lab results. She is aware to repeat lab tests in 1 week. Aware that she is notto change any current meds. She is also aware that Dr Lb Yeboah has made a referral for Home PT . * Telephone Encounter - Kellen Kinney RN - 03/23/2023 2:01 PM EST ----- Message from Carlene Kendrick MD sent at 03/23/2023 12:58 PM EST ----- Hgb slight up trend at 9.8; creatinine back in prior range from a few months ago. Mag a bit low butI don't want to supplement w/ her diarrhea -continue same meds -recheck hgb, mag next week > believe orders in for hgb but double check on mag order documented in this encounter Plan of Treatment Upcoming Encounters Date Type Department Care Team (Late st Contact Info) Description 03/31/2023 11:10 AM EST Office Visit Family [address] [place] [phone] [address] [place] [address] 04/04/2023 5:10 PM EST 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 Pharmacy, [address] [place] [address] [place] [address] 06/05/2023 2:00 PM EDT Office Visit Gastroenterology, [facility] [address] [place] [address] Jen Salgado CRNP [address] [address] 07/04/2023 11:30 AM EDT Office Visit Family [address] [place] [phone] [address] [place] [address] 07/27/2023 1:30 PM EDT Office Visit Cardiology [address] [place] [address] Cameron Becerra PA-C [address] [place] [address] 12/05/2023 2:30 PM EDT Office Visit Nephrology [address] [place] [address] Radha Wyman PA-C [address] [place] [address] Scheduled Orders Name Type Priority Associated Diagnoses Orde r Schedule HGB Lab Routine Anemia due to stage 3a chronic kidney disease Expected: 03/30/2023 (Approximate), Expires: 03/23/2024 MAGNESIUM Lab Routine Anemia due to stage 3a chronic kidney disease Expected: 03/30/2023 (Approximate), Expires: 03/23/2024 Health Maintenance Due Date Last Done Comments [...] Additional history exists CKD HGB USE SMARTSET 76841 03/22/202403/22, 03/22/2023, 03/19/2023, Additional history exists CKD PHOS USE SMARTSET 22077 03/22/202403/13, 01/19/2023, 11/21/2022, Additional history exists DXA [...] as of this encounter Visit Diagnoses Diagnosis Anemia due to stage 3a chronic kidney disease- Primary documented in this encounter Care Teams Esthetician Makeup Artist Relationship Specialty Start Date End Date Priyanka Falcon MD [address] [place] [address] [place] [address] PCP - General Family Medicine 01/04/19 documented as of this encounter
--- OUTSIDE RECORDS SUMMARY | 2023-03-27 23:37 | External Medical Summary ---
Author Name Unknown Address Unknown Organization K01:[facility] - [address] [facility] [address] Laboratory Report Ordering Provider Test Date Status TERRANCE ARREOLA 03/22/2023 14:07:37 Final Observation Date Value Abnormality Reference (Units ) Status WBC, Total 03/22/2023 14:07:37 5.94 4.00-10.80 (K/uL) Final RBC 03/22/2023 14:07:37 3.29 3.85-5.15 (M/uL) Final Hemoglobin 03/22/2023 14:07:37 9.8 Below low normal 12.0-15.3 (g/dL) Final HCT 03/22/2023 14:07:37 32.9 Below low normal 36.0-45.2 (%) Final MCV 03/22/2023 14:07:37 100.0 81.5-97.5 (fL) Final MCH 03/22/2023 14:07:37 29.8 27.0-34.0 (pg) Final MCHC 03/22/2023 14:07:37 29.8 32.0-36.0 (g/dL) Final RDW 03/22/2023 14:07:37 15.7 11.5-15.5 (%) Final Platelets 03/22/2023 14:07:37 271 140-400 (K/uL) Final MPV 03/22/2023 14:07:37 11.3 6.6-11.1 (fL) Final Nucleated erythrocytes/100 leukocytes [Ratio] in Blood by Automated count 03/22/2023 14:07:37 0 <=0 (/100 WBCs) Final Performing Location [facility] - [address] [facility] [address]
--- OUTSIDE RECORDS SUMMARY | 2023-03-27 23:37 | External Medical Summary ---
Author Name Unknown Address Unknown Organization [id number]:[facility] - [address] [place] [address] Laboratory Report Ordering Provider Test Date Status TERRANCE ARREOLA 03/22/2023 14:07:37 Final Deficient: <20 ng/mL
Ins ufficient: 20-29 ng/mL
Recommended/Optimum:30-50 ng/mL

Vitamin D intoxication is rare. If suspicious of Vitamin D toxicity, evaluation of serum Calcium and PTH is recommended. Observation Date Value Abnormality Reference (Units ) Status 25-OH Vitamin D total 03/22/2023 14:07:37 43 >19 (ng/mL) Final Performing Location [facility] - [address] [place] [address]
--- OUTSIDE RECORDS SUMMARY | 2023-03-27 23:37 | External Medical Summary ---
Author Name Unknown Address Unknown Organization K01:[facility] - [address] [place] [address] Laboratory Report Ordering Provider Test Date Status TERRANCE ARREOLA 03/22/2023 14:07:37 Final Observation Date Value Abnormality Reference (Units ) Status Phosphate 03/22/2023 14:07:37 2.8 2.5-4.8 (m g/dL) Final Performing Location [facility] - [address] [place] [address]
--- OUTSIDE RECORDS SUMMARY | 2023-03-27 23:37 | External Medical Summary ---
Author Name Unknown Address Unknown Organization [id number]:[facility] [place] [address] [facility] [address] Laboratory Report Ordering Provider Test Date Status TERRANCE ARREOLA 03/22/2023 14:07:37 Final Observation Date Value Abnormality Reference (Units ) Status SYNC LEUKOCYTES IN BLOOD BY AUTOMATED COUNT 03/22/2023 14:07:37 5.94 4.00-10.80 (K/uL) Final Segs 03/22/2023 14:07:37 65.8 40.0-75.0 (%) Final Lymphs % 03/22/2023 14:07:37 20.2 18.0-42.0 (%) Final Monos 03/22/2023 14:07:37 9.8 1.0-11.0 (%) Final Eosinophils 03/22/2023 14:07:37 3.2 0.0-6.0 (%) Final Basos 03/22/2023 14:07:37 0.5 0.0-2.0 (%) Final Immature Granulocyte, Percent 03/22/2023 14:07:37 0.5 0.0-2.0 (%) Final Absolute Segs 03/22/2023 14:07:37 3.91 1.80-7.70 (K/uL) Final Lymphs, absolute 03/22/2023 14:07:37 1.20 1.00-4.80 (K/ul) Final Monos, Abs 03/22/2023 14:07:37 0.58 0.00-1.10 (K/uL) Final Eos, Abs 03/22/2023 14:07:37 0.19 0.00-0.70 (K/uL) Final Basos, Abs 03/22/2023 14:07:37 0.03 0.00-0.20 (K/uL) Final Immature Granulocytes, Number 03/22/2023 14:07:37 0.03 0.00-0.20 (K/uL) Final Performing Location [facility] [place] [address] [facility] [address]
--- OUTSIDE RECORDS SUMMARY | 2023-03-27 23:37 | External Medical Summary | Summary of Care ---
Author Name Unknown Organization [facility] Address [address] [place] [address] Phone [phone] Care Team Providers Care Fur Clipper Name Role Phone Sailaja Falcon MD Primary Care Prov ider Reason for Referral * Evaluate & Treat - Unlimited Visits (Within 10 days (routine)) - Authorized Specialty Diagnoses / Procedures Referred By Controry t Referred To Contact HOME CARE / Home Care Diagnoses At risk for falls Sailaja Falcon MD [address] [place] [address] [place] [address] Referral ID Status Reason Start Date Expiration Date Visits Requested Visits Authorized [id number] Authorized Specialty Services Required 03/22/2023 999 999 Question Answer Referral Priority Within 10 days (routine) Where should this appointment be scheduled? [facility] Documentation of Sazd-mp-Ukcm Encounter Addendum Patient Name: Cristine Benitez I certify that this patient is under my care and that I, or a nurse practitioner or physician's assistant construction superintendent working with me, had a ndve-fu-burg encounter that meets the physician qjpm-ft-hcwj encounter requirements with this patient on: 03/22/[address] Kendrick The encounter with the patient was in whole, or in part, for the following medical condition, which is the primary reason for home health care (List medical condition): Gait dysfunction I certify that, based on my findings, the following services are medically necessary home health services: Physical Therapy To provide the following care/treatments: (All hospitalists not following the patient after discharge should complete this section): Ambulatory safety, generalized weakness and fall risk Primary Care Physician to follow home care plan of care after discharge: Sailaja Mak MD My clinical findings support the need for the above services because: Fall risk Further, I certify that my clinical findings support that this patient is homebound (i.e. Absences from home require considerable and taxing effort and are for medical reasons or restoration services or infrequently or of short duration when for other reason) because: Leaving home requires taxing effort Physician Signature: Date of Signature: Physician Printed Name: Sailaja Mak MD Reason for Visit * Reason Onset Date Comments Advice 03/22/2023 Encounter Details Date Type Department Care Team (Late st Contact Info) Description 03/22/2023 Telephone Nephrology, [facility] [address] [place] [address] Carlene Kendrick MD [address] [place] [address] Advice Allergies Active Allergy Reactions Criticality Noted Date Comments Naproxen Sodium Bleeding High 12/03/2009 Hs of GI bleed Aspirin Bleeding High 12/03/2009 Doxycycline Neuro complications (Please comment) Medium 10/23/2010 Hallucinations Ibuprofen Bleeding High 12/03/2009 Hx of GI bleed Nitrofurantoin Monohydrate Macrocrystals Neuro complications (Please comment) Low 09/16/2009 Headaches Gkrwrwvi-Tjixoudei-Pq 01/25/2011 Caused eye problems Neosporin 05/30/2003 rash Sulfa Antibiotics 05/11/2002 nausea & vomiting Tramadol Hcl Unknown 12/03/2009 Triamterene 11/16/2022 ulcers documented as of this encounter (statuses as of 03/22/2023) Medications Medication Sig Dispensed Refills Start Date [...] FOR ITCHING 30 g 2 05/28/2020 Active [employer] In Vitro Strip (Glucose Blood)Indications:T ype 2 diabetes mellitus with hemoglobin A1c goal of less than 7.5% (HCC) Use to test blood sugar once a day DX e11.9 100 Strip 3 05/14/2021 Active [employer] Verio Flex System w/Device KitIndications:Type 2 diabetes [...] Tablet 1 09/08/2022 Active OneTouch Delica Plus [id number] s:Type 2 diabetes mellitus with hemoglobin A1c [...] as of this encounter (statuses as of 03/22/2023) Active Problems Problem Noted Date Diagnosed Date [...] as of this encounter (statuses as of 03/22/2023) Resolved Problems Problem Noted Date Diagnosed Date [...] as of this encounter (statuses as of 03/22/2023) Immunizations Name Administration Dates Next Due COVID-19 [...] encounter Miscellaneous Notes * Addendum Note - Sailaaj Falcon MD - 03/22/2023 2:46 PM EST Addended by: SAILAJA MAK on: 03/22/2023 02:46 PM Modules accepted: Orders * Telephone Encounter - Sailaja Falcon MD - 03/22/2023 2:44 PM EST I can order home health PT for her. I dont think they will go until she is 10 days out from COVID. * Telephone Encounter - Kellen Kinney RN - 03/22/2023 2:10 PM EST Pt was seen by Dr Kendrick in Nephrology Clinic today. Pt was diagnosed with Covid prior to discharge from [facility] on Monday- Pt is feeling very weak and is staying at her with her son. Dr Kendrick would like to know if she might benefit from some in home PT or even home nursing referral. documented in this encounter Plan of Treatment Upcoming Encounters Date Type Department Care Team (Late st Contact Info) Description 03/31/2023 11:10 AM EST Office Visit Family Medicine [address] [place] [phone] [place] [address] 04/04/2023 5:10 PM EST 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 Pharmacy, [address] [place] [address] [place] [address] 06/05/2023 2:00 PM EDT Office Visit Gastroenterology, [facility] [address] [place] [address] Jen Salgado CRNP [address] [place] [address] 07/04/2023 11:30 AM EDT Office Visit Family Medicine [address] [place] [phone] [address] [place] [address] 07/27/2023 1:30 PM EDT Office Visit Cardiology [address] [place] [address] Cameron Becerra PA-C [address] [address] 12/05/2023 2:30 PM EDT Office Visit Nephrology [address] [place] [address] ZemaRadha holman PA-C [address] [place] [address] Scheduled Referrals Name Type Priority Associated Diagnoses Orde r Schedule HOME HEALTH REFERRAL OP Referral Within 10 days (routine) At risk for falls Ordered: 03/22/2023 Health Maintenance Due Date Last Done Comments Hepatitis B (1 of 3 - Risk 3-dose series) 1995 Depression Screening 08/03/2021 08/03/2020 Diabetic Foot Exam 02/08/2023 02/08/2022, 0 05/28/2020, 05/17/2019, Additional history exists Diabetic Eye Exam 03/15/2023 03/15/2022, , 11/03/2020, Additional history exists HbA1c 07/20/2023 01/19/2023, 0908/2022, 12/03/2021, Additional history exists Albumin/Creatinine Ratio 11/17/2023 023, 03/29/2022, 01/06/2021, Additional history exists CKD PHOS USE SMARTSET 71311 01/20/2024 11/0 11/2022, 11/21/2022, 01/06/2021, Additional history exists CKD HGB USE SMARTSET 81316 03/19/202403/19, 03/12/2023, 03/07/2023, Additional history exists DXA Scan 12/09/2027 12/08/2020, [...] as of this encounter Visit Diagnoses Diagnosis At risk for falls- Primary Personal history of fall documented in this encounter Care Teams Fur Clipper Relationship Specialty Start Date End Date Sailaja Falcon MD [address] [place] [address] [place] [address] PCP - General Family Medicine 01/04/19 documented as of this encounter
--- OUTSIDE RECORDS SUMMARY | 2023-03-27 23:37 | External Medical Summary | Summary of Care ---
Author Name Unknown Organization [facility] Address [address] [place] [address] Phone [phone] Care Team Providers Care Religious Healer Name Role Phone Priyanka Garland MD Primary Care Prov ider Reason for Visit * Reason Comments Hospital Follow-Up Encounter Details Date Type Department Care Team (Latest Contact Info) Description 03/22/2023 1:00 PM EST Office Visit Nephrology [address] [place] [id number] Carlene Kendrick MD [address] [place] [address] [place] [address] History of acute renal failure*; Stage 3 chronic kidney disease, unspecified whether stage 3a or 3b CKD (HCC); HTN, goal below 130/80; COVID-19 virus infection; Abnormal laboratory test result; Hospital discharge follow-up; Gastrointestinal hemorrhage, unspecified gastrointestinal hemorrhage type; Persistent atrial fibrillation (HCC); Peripheral edema; Diabetes mellitus with stage 3 chronic kidney disease (HCC) Allergies Active Allergy Reactions Criticality Noted Date Comments Naproxen Sodium Bleeding High 12/03/2009 Hs of GI bleed Aspirin Bleeding High 12/03/2009 Doxycycline Neuro complications (Please comment) Medium 10/23/2010 Hallucinations Ibuprofen Bleeding High 12/03/2009 Hx of GI bleed Nitrofurantoin Monohydrate Macrocrystals Neuro complications (Please comment) Low 09/16/2009 Headaches Uvxddppf-Keojxfxmb-Ij 01/25/2011 Caused eye problems Neosporin 05/30/2003 rash Sulfa Antibiotics 05/11/2002 nausea & vomiting Tramadol Hcl Unknown 12/03/2009 Triamterene 11/16/2022 ulcers documented as of this encounter (statuses as of 03/23/2023) Medications Medication Sig Dispensed Refills Start Date End Date Status [facility] VITAMIN B12 1000 MCG PO TABSIndications:V itamin B deficiency 1 TABLET DAILY 1 Tab 0 1 Active Cholecalciferol (VITAMIN D3) 1000 UNITS CAPS [...] FOR ITCHING 30 g 2 1 Active CognuseTouch Verio In Vitro Strip (Glucose Blood)Indications :Type 2 diabetes mellitus with hemoglobin A1c goal of less than 7.5% (HCC) Use to test blood sugar once a day DX e11.9 100 Strip 3 2 Active CognuseTouch Verio Flex System w/Device KitIndications:Ty pe 2 diabetes mellitus with hemoglobin A1c goal of less than 7.5% (HCC) Use as directed . Use to test blood sugar Dx e11.9 1 Kit 0 2 Active Zoster Vac Recomb Adjuvanted 50 MCG/0.5ML Intramuscular Suspension Reconstituted (Shingrix)Indicat ions:Need for shingles vaccine Inject 0.5 mL into a large muscle now and repeat dose in 60 to 180 days 1 Each 1 3 Active Additional Information Patient not taking.Reported on [...] EVENING NEEDED 60 Capsule 5 3 Active Additional Information Patient not taking.Reported on 03/22/2023 LORazepam 0.5 MG Oral Tablet (Ativan)Indicatio ns:Persistent [...] Tablet 1 3 Active OneTouch Delica Plus [id number] ons:Type 2 diabetes mellitus with hemoglobin A1c goal of less than 7.5% (HCC) Use as directed. Use to test blood sugar once a day DX e11.9 100 Each 3 3 Active HYDROcodone-Aceta minophen 5-325 MG Oral TabletIndications :Bilateral low back pain without sciatica, unspecified chronicity Take 1 Tablet by mouth 2 times a day as needed for Pain, Severe. 30 Tablet 0 3 Active Atorvastatin Calcium 80 MG Oral Tablet (Lipitor)Indicati ons:Dyslipidemia, goal LDL below 70 TAKE 1 TABLET BY MOUTH EVERY DAY IN THE MORNING 90 Tablet 3 3 Active OneTouch Ultra In Vitro Strip (Glucose Blood)Indications :Type 2 diabetes mellitus with hemoglobin A1c goal of less than 7.0% (HCC) USE TO TEST ONCE PER DAY. E11.9 100 Strip 5 3 Active glipiZIDE ER 2.5 MG Oral [...] THE MORNING 90 Tablet 3 3 Active Metoprolol Succinate ER 100 MG Oral Tablet Extended Release 24 Hour (toPROL XL)Indications:Es sential hypertension with goal blood pressure less than 140/90 TAKE 1 TABLET BY MOUTH IN THE MORNING AND 1/2 TABLET DAILY AT BEDTIME 135 Tablet 1 3 Active Pantoprazole Sodium 40 MG Oral Tablet Delayed Release (Protonix) 1 Tablet. 0 3 Active Ferrous Sulfate 325 (65 Fe) MG Oral Tablet (Feosol) Take 1 Tablet by mouth 2 times a day with morning and evening meals. 0 3 Active Furosemide 40 MG Oral Tablet (Lasix) One tablet Monday, y, Monday, and Monday 0 4 Active Cephalexin 500 MG Oral Capsule (Keflex) Take 1 Capsule by mouth in the morning and 1 Capsule before bedtime. Do all this for 5 days. 10 Capsule 0 3 024 Discontinued Cephalexin 500 MG Oral Capsule (Keflex) Take 1 Capsule by mouth in the morning and 1 Capsule at noon and 1 Capsule before bedtime. Do all this for 7 days. Until gone.. 21 Capsule 0 3 024 Discontinued Furosemide 40 MG Oral Tablet (Lasix)Indication s:Hospital discharge follow-up,Persist ent atrial fibrillation (HCC),Peripheral edema One tablet Monday, Monday and Monday 90 Tablet 3 4 024 Discontinued(Re fill) documented as of this encounter [...] Sign Reading Time Taken Comments Blood Pressure 117/52 03/22/2023 1:01 PM EST Pulse 79 03/22/2023 1:01 PM EST Temperature 35.9 C (96.6 F) 03/22/2023 1:01 PM ES T Respiratory Rate 18 03/22/2023 1:01 PM EST Oxygen Saturation 96% 03/22/2023 1:01 PM EST Inhaled Oxygen Concentration - - Weight 64.9 kg (143 lb) 03/22/2023 1:01 PM EST Height - - Body Mass Index 26.15 12/08/2022 2:23 PM EDT documented in this encounter Patient Instructions * Patient Instructions* Carlene Kendrick MD - 03/22/2023 2:00 PM EST -no medication changes today -avoid medicines like aleve, advil, ibuprofen, aspirin more than 81 mg daily and other NSAIDS whichare not good for kidney patients. Take only tylenol (acetaminophen) up to 2000 mg daily as needed for pain or as directed by your primary care provider. -call Dr Lobato or here if diarrhea or weakness worsening -labs today -will reach out to Dr Lobato about possibility of in home PT documented in this encounter Progress Notes * Carlene Kendrick MD - 03/22/2023 1:04 PM EST NEPHROLOGY CLINIC NOTE Nephrology [place] [place] [address] 03/22/2023, 1:04 PM Patient Name: Cristine Benitez BACKGROUND: 87 year old female presents for hospital d/c appt for JOLIE on CKD stage 3A and less [id number] mg proteinuria from age diabetes and hypertension. Admitted [facility]02[facility]28/23 for GIB and influenza A and H flu pneumonia. Presenting creat 2.1, downto 1.1-1.2. Then readmitted [facility] 03/09-03/11 for weakness, GIB; [facility]. Dx'd w/ Covid on 03/17. 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 Creatinine had been 1.1-1.3 in 2015-early 2016; noted at PCP visit 10/2016 to have creatinine 2.0. On recheck of labs a few days later creatinine was down to 1.7. States she Follows w/ chiropractor for back; chronic L knee pain as well. Also w/ frequent UTI sx. No personal hx of stones. One sister age 16 w/ pneumonia and ? Renal issue as well. No other FH of renal disease. No nsaid use. Drinks at least : 68 oz water daily. Home blood pressure checks: at times NSAID use: Aspirin 81 mg. Tylenol only Herbals/supplements: Vit D, Vit b12, Vitron C Drinks in a day 4 x 17 oz water; occasional coffee, occasional diet soda small can. TODAY 03/22/2023: admitted [facility] early February with hematchezia and H flu pneumonia; then readmitted March 09 with ongoing GI bleeding. Just discharged from [facility] on Monday 03/20. Coumadin was stopped 7 weeks back. Did have JOLIE w/ first admission > presenting creatinine 2.1. during first hospital stay amlodipine, lisinopril, lasix were held; was d/c back on lasix and lisinopril. Patient feels very weak. Ongoing very poor appetite. Did test positive for COVID on Mar 17 on routine test at [facility] but remains asymptomatic w/ ongoing diarrhea x past several weeks. Lives on one floor; using walker at home; doing exercises at home. Got her own breakfast. Acc by her son today REVIEW OF SYSTEMS General: remains extremely weak but able to transfer, No fevers, sweats, or chills, ++ wt loss and w/ very poor appetite Eyes: No recent significant change in vision. Respiratory: No cough,No wheezing, No shortness of breath Cardiovascular:No chest pain, No palpitations, and No syncope Gastrointestinal: some nausea w/ pills and po intake, vomiting; does have /has had 6 wks of black diarrhea. No hematemesis. No abdominal pain. Urinary: No dysuira, No hematuria. No flank pain Musculoskeletal: No muscle pains or cramps; [facility] but better now, today denies joint pain Skin: No itching No presyncope or orthostatic [...] DAY NEEDED FOR ITCHING 30 g 2 Lisinopril 20 MG Oral Tablet (Prinivil) TAKE 1 TABLET BY MOUTH EVERY DAY 90 Tablet 3 LORazepam 0.5 MG Oral Tablet (Ativan) TAKE 1 TABLET BY MOUTH TWICE A DAY NEEDED FOR ANXIETY 120 Tablet 1 metFORMIN HCl 500 MG Oral Tablet (Glucophage) TAKE 1 TABLET BY MOUTH TWICE A DAY WITH BREAKFAST ANDSUPPER 180 Tablet 1 Atorvastatin Calcium 80 MG Oral Tablet (Lipitor) TAKE 1 TABLET BY MOUTH EVERY DAY IN THE MORNING 90Tablet 3 glipiZIDE ER 2.5 MG Oral Tablet Extended Release 24 Hour (Glucotrol XL) TAKE 1 TABLET BY MOUTH DAILY 30 MINUTES BEFORE A MEAL 90 Tablet 1 amLODIPine Besylate 2.5 MG Oral Tablet (Norvasc) TAKE 1 TABLET BY MOUTH EVERY DAY IN THE MORNING 90Tablet 3 Metoprolol Succinate ER 100 MG Oral Tablet Extended Release 24 Hour (toPROL XL) TAKE 1 TABLET BY MOUTH IN THE MORNING AND 1/2 TABLET DAILY AT BEDTIME 135 Tablet 1 Pantoprazole Sodium 40 MG Oral Tablet Delayed Release (Protonix) 1 Tablet. Ferrous Sulfate 325 (65 Fe) MG Oral Tablet (Feosol) Take 1 Tablet by mouth 2 times a day with morning and evening meals. Furosemide 40 MG Oral Tablet (Lasix) One tablet Monday, , Monday, and Monday [employer] Verio In Vitro Strip (Glucose Blood) Use to test blood sugar once a day DX e11.9 100 Strip3 IT MOVES ITio Flex System w/Device Kit Use as directed . Use to test blood sugar Dx e11.9 1 Kit 0 Zoster Vac Recomb Adjuvanted 50 MCG/0.5ML Intramuscular Suspension Reconstituted (Shingrix) Inject 0.5 mL into a large muscle now and repeat dose in 60 to 180 days (Patient not taking: Reported on 01/19/2023) 1 Each 1 Docusate Sodium 100 MG Oral Capsule (Colace) TAKE 1 CAP BY MOUTH EVERY MORNING. CAN TAKE 1 CAP IN THE EVENING NEEDED (Patient not taking: Reported on 03/22/2023) 60 Capsule 5 CognuseTouch Delica Plus [id number] Use as directed. Use to test blood sugar once a day DX e11.9 100 Each 3 HYDROcodone-Acetaminophen 5-325 MG Oral Tablet Take 1 Tablet by mouth 2 times a day as needed for Pain, Severe. 30 Tablet 0 Xcovery[employer] Ultra In Vitro Strip (Glucose Blood) USE TO TEST ONCE PER DAY. E11.9 100 Strip 5 No current facility-administered medications for this visit. Review of patient's allergies indicates: Allergen Reactions Aleve [Naproxen Sodium] Bleeding Hs of GI bleed Aspirin Bleeding Ibuprofen Bleeding Hx of GI bleed Doxycycline Neuro complications (Please comment) Hallucinations Vcrntwbu-Cpqedvnhb-Yw [Nbywakwf-Mgluqvxfj-Uv] Caused eye problems Neosporin rash Sulfa Antibiotics nausea & vomiting Tramadol Hcl Unknown Triamterene ulcers Macrobid [Nitrofurantoin Monohydrate Macrocrystals] Neuro complications (Please comment) Headaches PHYSICAL EXAMINATION: BP Readings from Last 6 Encounters: 03/22/23 117/52 03/20/23 132/60 03/02/23 118/50 01/25/23 117/46 01/19/23 134/74 12/08/22 128/62 Wt Readings from Last 6 Encounters: 03/22/23 64.9 kg (143 lb) 03/20/23 66.4 kg (146 lb 6.2 oz) 03/02/23 67.9 kg (149 lb 9.6 oz) 01/19/23 71.7 kg (158 lb) 12/08/22 70.8 kg (156 lb) 11/21/22 70.3 kg (155 lb) Pulse Readings from Last 6 Encounters: 03/22/23 79 03/20/23 80 03/02/23 84 01/25/23 83 01/19/23 76 12/08/22 73 NAD, oriented x 3, in w/c Normocephalic, atraumatic, eomi nonicteric sclerae MMM Supple neck Irregularly irregular w/o m/g/r; 2+ R ankle and at most trace L ankle edema CTAB w/ reasonable air mvt NT abd, +BS, soft No cyanosis or clubbing No rash No tremor, focal or global weakness; fluent though limited speech, limited hx LABS: Recent Labs Units 03/19/23 0756 03/12/23 0545 03/07/23 1338 01/19/23 1301 SODIUM - [facility] mmol/L 139 140 139 139 POTASSIUM - [facility] mmol/L 4.5 4.1 3.6 4.7 CHLORIDE - [facility] mmol/L 107 106 102 103 CO2 - [facility] mmol/L 19* 20* 21* 23 BUN - [facility] mg/dL 17 18 44* 22* CREATININE - [facility] mg/dL 1.2* 1.0 1.4* 1.2* ESTIMATED GLOMERULAR FILTRATION RATE - [facility] mL/min 45* 52* 36* 44* Latest Reference Range & Units 12/21/16 15:36 02/20/17 11:59 05/07/20 14:18 01/06/21 14:19 Magnesium 1.5 - 2.6 mg/dL 1.7 1.8 1.7 1.8 Recent Labs Units 03/19/23 0756 03/12/23 0545 03/07/23 1338 11/16/22 1514 12/03/21 0952 04/28/21 1319 HGB - [facility] g/dL 9.4* 9.8* 7.2* 11.1* 11.0* 10.7* FERRITIN - [facility] ng/mL -- -- 192* 39 38 27 TRANSFERRIN SATURATION PERCENT - [facility] % -- -- 13* 16 16 14* Recent Labs Units 03/19/236 03/12/23 0545 03/07/23 1338 01/19/23 1307 01/19/23 1301 12/08/22 1513 11/21/22 1404 CALCIUM - [facility] mg/dL 8.0* 8.4 8.3* -- 9.1 < > 9.2 PHOSPHORUS - [facility] mg/dL -- -- -- 4.2 -- -- 4.7 PTH - [facility] pg/mL -- -- -- -- -- -- 108* < > = values in this interval not displayed. Recent Labs Units 01/19/23 1307 11/16/22 1514 12/03/21 0952 04/28/21 1319 HEMOGLOBIN A1C - [facility] % 8.1* 7.9* 7.6* 8.1* Recent Labs Units 11/16/22 1514 03/29/22 1356 ALBUMIN / CREATININE RATIO, URINE - [facility] mg/g Creat 91* 34* Recent Labs Units 01/19/23 1301 11/16/22 1514 04/28/21 1319 CLARITY, URINE - [facility] Slightly Cloudy* Slightly Cloudy* Clear GLUCOSE, URINE - [facility] mg/dL Negative Negative Negative BILIRUBIN, URINE - [facility] Negative Negative Negative KETONE, URINE - [facility] mg/dL Negative Negative Negative SPECIFIC GRAVITY, URINE - [facility] 1.015 1.010 1.018 BLOOD, URINE - [facility] Negative Negative Negative PH, URINE - [facility] Units 6.0 7.0 6.0 PROTEIN, URINE - [facility] mg/dL Trace* Trace* Trace* UROBILINOGEN, URINE - [facility] mg/dL Normal Normal Normal NITRITE, URINE - [facility] Negative Positive* Negative ESTERASE, URINE - [facility] Large* Large* Negative BACTERIA, URINE - [facility] /HPF 0-25 >200* -- WBC, URINE - [facility] /HPF 50+* 50+* -- RBC, URINE - [facility] /HPF 0-2 0-2 -- OUTSIDE LABS MARCH 11, 2023 GARCIA Rollins 03.11. 142. 3.6/ 111/ / 23/ 1.1 MAG 1.4, PHOS 2.4, ALB 2.9 HGB 9.6 (WAS 6.6 on 03/09) ASSESSMENT AND PLAN: History of acute renal failure (Primary) - CBC WITH WBC DIFFERENTIAL - BASIC METABOLIC PANEL Stage 3 chronic kidney disease, unspecified whether stage 3a or 3b CKD (HCC) - CBC WITH WBC DIFFERENTIAL - BASIC METABOLIC PANEL - MAGNESIUM - IRON SCREEN, INCLUDING TIBC - PTH - 25-HYDROXY VITAMIN D - PHOSPHORUS HTN, goal below 130/80 - BASIC METABOLIC PANEL COVID-19 virus infection - CBC WITH WBC DIFFERENTIAL - BASIC METABOLIC PANEL Follow Up: Return in about 4 months (around 07/21/2023) for clinic visit [place], clinic visit [facility]/ J[facility]. | For: clinic visit [place], clinic visit w/ J[facility] | Check-out note: waitlist Renal function improved to better than baseline; JOLIE resolved as of last labs on 03/19 but hx of labile renal function -repeat labs today > at risk for electrolyte abnormalities to worsen w/ covid, decreased po, diarrhea -cont lisinopril, dose OK -needs reeval if diarrhea worsens BP w/ acceptable control -cont lasix, lisionpril, amlodipine -activity as tolerated Today is Day 5 covid infection; she looks OK though tired; states she's better than at hospital d/c. At this point consider risks of paxlovid to outweigh potential benefits; she and her son agree Patient Instructions -no medication changes today -avoid medicines like aleve, advil, ibuprofen, aspirin more than 81 mg daily and other NSAIDS whichare not good for kidney patients. Take only tylenol (acetaminophen) up to 2000 mg daily as needed for pain or as directed by your primary care provider. -call Dr Lobato or here if diarrhea worsening -no I spent a total of 40-54 minutes (exact time 45 mins) on the date of service in preparation, delivery, and documentation of the care provided to Cristine Benitez excluding any time spent in the performance of separately billed services. Carlene Kendrick MD Nephrology [address] [place] [address] CC: Ref: PRIYANKA GARLAND[[id number]] [address] [place] [address] [place] [phone] (office) [phone] (fax) PCP: PRIYANKA GARLAND [address] [place] [address] [place] [address] [phone] This chart was completed in part utilizing [employer] Speech Voice Recognition Software. Randomword insertions, pronoun errors, and incomplete sentences are an occasional consequence of this system due to software limitations, and ambient noise. Any questions or concerns about the content, text, or information contained within the body of this dictation should be directly addressed to the provider for clarification. documented in this encounter Nursing Notes * Kellen Kinney RN - 03/22/2023 1:02 PM EST Hospital discharge follow up. Was discharged from [facility] on Monday where she was admitted from [facility] with GI bleed. Did see Cardiology yesterday. Was taken off of Coumadin 7 weeks ago.Pt continues to feel weak and son reports her appetite is very poor. She did test positive on a routine test at [facility] but is asymptomatic. Does have some diarrhea and questioning whether the ironor pantoprazole may be causing this as they are the newest medications. documented in this encounter Miscellaneous Notes * Result Encounter Note - Carlene Kendrick MD - 03/23/2023 12:58 PM EST Hgb slight up trend at 9.8; creatinine [...] 11:10 AM EST Office Visit Family Medicine [address] [place] [phone] [address] [place] [address] 04/04/2023 5:10 PM EST 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 Pharmacy, [address] [place] [address] [place] [address] 06/05/2023 2:00 PM EDT Office Visit Gastroenterology, [facility] [address] [place] [address] Jen Salgado CRNP [address] [place] [address] 07/04/2023 11:30 AM EDT Office Visit Family Medicine [address] [place] [phone] [address] [place] [address] 07/27/2023 1:30 PM EDT Office Visit Cardiology [address] [place] [address] Cameron Becerra PA-C [address] [place] [address] 12/05/2023 2:30 PM EDT Office Visit Nephrology [address] [place] [address] Radha Wyman PA-C [address] [place] [address] Health Maintenance Due Date Last Done Comments [...] Additional history exists CKD HGB USE SMARTSET 51849 03/22/202403/22, 03/22/2023, 03/19/2023, Additional history exists CKD PHOS USE SMARTSET 07738 03/22/202403/13, 01/19/2023, 11/21/2022, Additional history exists DXA [...] Procedure Name Priority Date/Time Associated Diagnosis Comments DIFFERENTIAL, AUTOMATED Routine 03/22/2023 2:07 PM EST History of acute renal failure Stage 3 chronic kidney disease, unspecified whether stage 3a or 3b CKD (HCC) COVID-19 virus infection 25-HYDROXY VITAMIN D Routine 03/22/2023 2:07 PM EST Stage 3 chronic kidney disease, unspecified whether stage 3a or 3b CKD (HCC) BASIC METABOLIC PANEL Routine 03/22/2023 2:07 PM EST Abnormal laboratory test result IRON SCREEN, INCLUDING TIBC Routine 03/22/2023 2:07 PM EST Stage 3 chronic kidney disease, unspecified whether stage 3a or 3b CKD (HCC) CBC Routine 03/22/2023 2:07 PM EST History of acute renal failure Stage 3 chronic kidney disease, unspecified whether stage 3a or 3b CKD (HCC) COVID-19 virus infection PHOSPHORUS Routine 03/22/2023 2:07 PM EST Stage 3 chronic kidney disease, unspecified whether stage 3a or 3b CKD (HCC) PTH Routine 03/22/2023 2:07 PM EST Stage 3 chronic kidney disease, unspecified whether stage 3a or 3b CKD (HCC) CBC Routine 03/22/2023 2:07 PM EST History of acute renal failure Stage 3 chronic kidney disease, unspecified whether stage 3a or 3b CKD (HCC) COVID-19 virus infection MAGNESIUM Routine 03/22/2023 2:07 PM EST Stage 3 chronic kidney disease, unspecified whether stage 3a or 3b CKD (HCC) documented in this encounter Results * DIFFERENTIAL, AUTOMATED (03/22/2023 2:07 PM EST) WBC 5.94 4.00 - 10.80 K/uL 03/22/2023 11:06 PM EST [facility] Neutrophils % 65.8 40.0 - 75.0 % 03/22/2023 11:06 PM EST [facility] Lymphocytes % 20.2 18.0 - 42.0 % 03/22/2023 11:06 PM EST [facility] Monocytes % 9.8 1.0 - 11.0 % 03/22/2023 11:06 PM EST [facility] Eosinophils % 3.2 0.0 - 6.0 % 03/22/2023 11:06 PM EST [facility] Basophils % 0.5 0.0 - 2.0 % 03/22/2023 11:06 PM EST [facility] Immature Granulocytes % 0.5 0.0 - 2.0 % 03/22/2023 11:06 PM EST [facility] Absolute Neutrophils 3.91 1.80 - 7.70 K/uL 03/22/2023 11:06 PM EST [facility] Absolute Lymphocytes 1.20 1.00 - 4.80 K/ul 03/22/2023 11:06 PM EST [facility] Absolute Monocytes 0.58 0.00 - 1.10 K/uL 03/22/2023 11:06 PM EST [facility] Absolute Eosinophils 0.19 0.00 - 0.70 K/uL 03/22/2023 11:06 PM EST [facility] Absolute Basophils 0.03 0.00 - 0.20 K/uL 03/22/2023 11:06 PM EST [facility] Absolute Immature Granulocytes 0.03 0.00 - 0.20 K/uL 03/22/2023 11:06 PM EST [facility] Blood Venous blood specimen / Unknown Venipuncture / Unknown 03/22/2023 2:07 PM EST 03/22/2023 2:07 PM EST Carlene Yaz Kendrick MD LAB BLOOD ORDERAB LES Performing Organization Address City/[facility]/ZIP Co de Phone Number [facility] [address] [place] [address] * (ABNORMAL) CBC (03/22/2023 2:07 PM EST) [facility] WBC 5.94 4.00 - 10.80 K/uL 03/22/2023 11:06 PM EST [facility] RBC 3.29 3.85 - 5.15 M/uL 03/22/2023 11:06 PM EST [facility] HGB 9.8(L) 12.0 - 15.3 g/dL 03/22/2023 11:06 PM EST [facility] HCT 32.9(L) 36.0 - 45.2 % 03/22/2023 11:06 PM EST [facility] MCV 100.0 81.5 - 97.5 fL 03/22/2023 11:06 PM EST [facility] MCH 29.8 27.0 - 34.0 pg 03/22/2023 11:06 PM EST [facility] MCHC 29.8 32.0 - 36.0 g/dL 03/22/2023 11:06 PM EST [facility] RDW 15.7 11.5 - 15.5 % 03/22/2023 11:06 PM EST [facility] PLT 271 140 - 400 K/uL 03/22/2023 11:06 PM EST [facility] MPV 11.3 6.6 - 11.1 fL 03/22/2023 11:06 PM EST [facility] nRBCs 0 <=0 /100 WBCs 03/22/2023 11:06 PM EST [facility] Blood Venous blood specimen / Unknown Venipuncture / Unknown 03/22/2023 2:07 PM EST 03/22/2023 2:07 PM EST Carlene Kendrick MD LAB BLOOD ORDERAB LES [facility] [address] [place] [address] * (ABNORMAL) BASIC METABOLIC PANEL (03/22/2023 2:07 PM EST) BUN 26(H) 6 - 20 mg/dL 03/23/2023 12:58 AM EST [facility] Creatinine 1.5(H) 0.5 - 1.0 mg/dL 03/23/2023 12:58 AM EST [facility] Estimated Glomerular Filtration Rate 34(L) >=60 mL/min 03/23/2023 12:58 AM EST [facility] Comment:eGFR is calculated b ased on the CKD-EPI 2020 equation Sodium 137 135 - 146 mmol/L 03/23/2023 12:58 AM EST [facility] Potassium 4.8 3.5 - 5.1 mmol/L 03/23/2023 12:58 AM EST [facility] Chloride 105 98 - 107 mmol/L 03/23/2023 12:58 AM EST [facility] CO2 20(L) 22 - 32 mmol/L 03/23/2023 12:58 AM EST [facility] Anion Gap 12 7 - 15 mmol/L 03/23/2023 12:58 AM EST [facility] Glucose 115 70 - 120 mg/dL 03/23/2023 12:58 AM EST [facility] Calcium 8.2(L) 8.4 - 10.2 mg/dL 03/23/2023 12:58 AM EST [facility] Blood Venous blood specimen / Unknown Venipuncture / Unknown 03/22/2023 2:07 PM EST 03/22/2023 2:07 PM EST Priyanka Yeboah MD LAB BLOOD ORDERABLES Performing Organization Address City/State/[facility] Co de Phone Number LABORATORY [facility] [address] [place] [address] * PHOSPHORUS (03/22/2023 2:07 PM EST) Phosphorus 2.8 2.5 - 4.8 mg/dL 03/23/2023 12:58 AM EST [facility] Blood Venous blood specimen / Unknown Venipuncture / Unknown 03/22/2023 2:07 PM EST 03/22/2023 2:07 PM EST Carlene Kendrick MD LAB BLOOD ORDERAB LES Performing Organization Address [facility] de Phone Number [facility] [facility] [place] [address] [place] [address] * 25-HYDROXY VITAMIN D (03/22/2023 2:07 PM EST) 25-Hydroxy Vitamin D 43 >19 ng/mL 03/23/2023 1:39 AM EST [facility] Blood Venous blood specimen / Unknown Venipuncture / Unknown 03/22/2023 2:07 PM EST 03/22/2023 2:07 PM EST Narrative [facility] - 03/23/2023 1:39 AM EST Deficient: <20 ng/mL Insufficient: 20-29 ng/mL Recommended/Optimum:30-50 ng/mL Vitamin D intoxication is rare. If suspicious of Vitamin D toxicity, evaluation of serum Calcium and PTH is recommended. Carlene Kendrick MD LAB BLOOD ORDERAB LES Performing Organization Address [facility] Co de Phone Number LABORATORY [facility] [address] [place] [address] * PTH (03/22/2023 2:07 PM EST) [facility] PTH 37 15 - 65 pg/mL 03/23/2023 1:39 AM EST LABORATORY [facility] Blood Venous blood specimen / Unknown Venipuncture / Unknown 03/22/2023 2:07 PM EST 03/22/2023 2:07 PM EST Carlene Kendrick MD LAB BLOOD ORDERAB LES Performing Organization Address [facility] Co de Phone Number LABORATORY [facility] [address] [place] [address] * (ABNORMAL) IRON SCREEN, INCLUDING TIBC (03/22/2023 2:07 PM EST) Pathologist [facility] Iron 74 33 - 151 ug/dL 03/23/2023 12:58 AM EST [facility] Iron Binding Capacity 182(L) 250 - 425 ug/dL 03/23/2023 12:58 AM EST [facility] Transferrin Saturation Percent 41 15 - 55 % 03/23/2023 12:58 AM EST [facility] Blood Venous blood specimen / Unknown Venipuncture / Unknown 03/22/2023 2:07 PM EST 03/22/2023 2:07 PM EST Carlene Kendrick MD LAB BLOOD ORDERAB LES Performing Organization Address [facility] Co de Phone Number [facility] [address] [place] [address] * (ABNORMAL) MAGNESIUM (03/22/2023 2:07 PM EST) Magnesium 1.4(L) 1.5 - 2.6 mg/dL 03/23/2023 12:58 AM EST [facility] Blood Venous blood specimen / Unknown Venipuncture / Unknown 03/22/2023 2:07 PM EST 03/22/2023 2:07 PM EST Carlene Kendrick MD LAB BLOOD ORDERAB LES Performing Organization Address City/[facility] de Phone Number [facility] [address] [place] [address] documented in this encounter Visit Diagnoses Diagnosis History of acute renal failure- Primary Personal history of other disorder of urinary system Stage 3 chronic kidney disease, unspecified whether stage 3a or 3b CKD (HCC) HTN, goal below 130/80 Unspecified essential hypertension COVID-19 virus infection Abnormal laboratory test result Other abnormal clinical finding Hospital discharge follow-up Other follow-up examination Gastrointestinal hemorrhage, unspecified gastrointestinal hemorrhage type Persistent atrial fibrillation (HCC) Atrial fibrillation Peripheral edema Edema Diabetes mellitus with stage 3 chronic kidney disease (HCC) Type II or unspecified type diabetes mellitus with renal manifestations, not stated as uncontrolled documented in this encounter Care Teams Religious Healer Relationship Specialty Start Date End Date Priyanka Garland MD [address] [place] [address] [place] [phone] PCP - General Family Medicine 01/04/19 documented as of this encounter"
--- OUTSIDE RECORDS SUMMARY | 2023-03-27 23:37 | External Medical Summary | Summary of Care ---
Author Name Unknown Organization [facility] Address [address] [place] [address] Phone [phone] Care Team Providers Care Space Systems Operations Craftsman Name Role Phone Priyanka Falcon MD Primary Care Prov ider Reason for Visit * Reason Onset Date Comments Advice 03/22/2023 Encounter Details Date Type Department Care Team (Late st Contact Info) Description 03/22/2023 Telephone NephrologyEdward [address] [facility] [place] [address] Carlene Kendrick MD [address] [place] [address] Advice Allergies Active Allergy Reactions Criticality Noted Date Comments Naproxen Sodium Bleeding High 12/03/2009 Hs of GI bleed Aspirin Bleeding High 12/03/2009 Doxycycline Neuro complications (Please comment) Medium 10/23/2010 Hallucinations Ibuprofen Bleeding High 12/03/2009 Hx of GI bleed Nitrofurantoin Monohydrate Macrocrystals Neuro complications (Please comment) Low 09/16/2009 Headaches Zuapnqij-Egdltoyqq-By 01/25/2011 Caused eye problems Neosporin 05/30/2003 rash [...] FOR ITCHING 30 g 2 05/28/2020 Active Clipper WindpowerToCleanMyCRM Verio In Vitro Strip (Glucose Blood)Indications:T ype 2 diabetes mellitus with hemoglobin A1c goal of less than 7.5% (HCC) Use to test blood sugar once a day DX e11.9 100 Strip 3 05/14/2021 Active Clipper WindpowerTouch Verio Flex System w/Device KitIndications:Type 2 diabetes [...] Tablet 1 09/08/2022 Active OneTouch Delica Plus [id number] s:Type 2 diabetes mellitus with hemoglobin A1c [...] diagnosed with Covid prior to discharge from [facility] on Monday- Pt is feeling very weak and is staying at her with her son. Dr Kendrick would like to know if she might benefit from some in home PT or even home nursing referral. documented in this encounter Plan of Treatment Upcoming Encounters Date Type Department Care Team (Late st Contact Info) Description 03/31/2023 11:10 AM EST Office Visit Family [address] [place] [phone] [address] [place] [phone] 04/04/2023 5:10 PM EST 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 Pharmacy, [address] [place] [address] [place] [address] 06/05/2023 2:00 PM EDT Office Visit Gastroenterology, [facility] [address] [place] [address] Jen Salgado CRNP [address] [place] [address] 07/04/2023 11:30 AM EDT Office Visit Family [address] [place] [phone] [address] [place] [address] 07/27/2023 1:30 PM EDT Office Visit Cardiology [address] [place] [address] Cameron Becerra PA-C [address] [place] [address] 12/05/2023 2:30 PM EDT Office Visit Nephrology [address] [place] [address] Radha Wyman PA-C [address] [address] Health Maintenance Due Date Last Done Comments Hepatitis B (1 of 3 - Risk 3-dose series) 1994 Depression Screening 08/03/2021 08/03/2020 Diabetic Foot Exam 02/08/2023 02/08/2022, 0 05/28/2020, 05/17/2019, Additional history exists Diabetic Eye Exam 03/15/2023 03/15/2022, , 11/03/2020, Additional history exists HbA1c 07/20/2023 01/19/2023, 08/2022, 12/03/2021, Additional history exists Albumin/Creatinine Ratio 11/17/2023 023, 03/29/2022, 01/06/2021, Additional history exists CKD PHOS USE SMARTSET 40237 01/20/2024 110 11/2022, 11/21/2022, 01/06/2021, Additional history exists CKD HGB USE SMARTSET 11657 03/19/202403/19, 03/12/2023, 03/07/2023, Additional history exists DXA [...] filedocumented as of this encounter Care Teams Space Systems Operations Craftsman Relationship Specialty Start Date End Date Priyanka Falcon MD [address] [place] [address] [place] [phone] PCP - General Family Medicine 01/04/19 documented as of this encounter
--- OUTSIDE RECORDS SUMMARY | 2023-03-27 23:38 | External Medical Summary | Summary of Care ---
Author Name Unknown Organization [facility] Address [address] [place] [address] Phone [phone] Care Team Providers Care Journeyman Apprentice Electricians Name Role Phone Priyanka Falcon MD Primary Care Prov ider Reason for Visit * Reason Comments Follow Up Encounter Details Date Type Department Care Team (Latest Contact Info) Description 03/20/2023 10:30 AM EST Office Visit Cardiology, [facility] [address] [place] [phone] Sofie Upton CRNP [address] [place] [phone] Hospital discharge follow-up*; Gastrointestinal hemorrhage, unspecified gastrointestinal hemorrhage type; Persistent atrial fibrillation (HCC); Peripheral edema Allergies Active Allergy Reactions Criticality Noted Date Comments Naproxen Sodium Bleeding High 12/03/2009 Hs of GI bleed Aspirin Bleeding High 12/03/2009 Doxycycline Neuro complications (Please comment) Medium 10/23/2010 Hallucinations Ibuprofen Bleeding High 12/03/2009 Hx of GI bleed Nitrofurantoin Monohydrate Macrocrystals Neuro complications (Please comment) Low 09/16/2009 Headaches Fvfbktvf-Xshexlbdu-Yx 01/25/2011 Caused eye problems Neosporin 05/30/2003 rash Sulfa Antibiotics 05/11/2002 nausea & vomiting Tramadol Hcl Unknown 12/03/2009 Triamterene 11/16/2022 ulcers documented as of this encounter (statuses as of 03/20/2023) Medications Medication Sig Dispensed Refills Start Date [...] ITCHING 30 g 2 05/29/19 21 Active Power.[employer] Verio In Vitro Strip (Glucose Blood)Indications :Type 2 diabetes mellitus with hemoglobin A1c goal of less than 7.5% (HCC) Use to test blood sugar once a day DX e11.9 100 Strip 3 05/15/19 22 Active Immune System Therapeuticsuch Verio Flex System w/Device KitIndications:Ty pe 2 [...] 1 09/09/19 23 Active OneTouch Delica Plus [id number] ons:Type 2 diabetes mellitus with hemoglobin A1c [...] MORNING 90 Tablet 3 11/22/19 23 Active OneTouch Ultra In Vitro Strip [...] MORNING 90 Tablet 3 12/30/19 23 Active Metoprolol Succinate ER 100 MG Oral Tablet Extended Release 24 Hour (toPROL XL)Indications:Es sential hypertension with goal blood pressure less than 140/90 TAKE 1 TABLET BY MOUTH IN THE MORNING AND 1/2 TABLET DAILY AT BEDTIME 135 Tablet 1 02/16/20 23 Active Pantoprazole Sodium 40 MG Oral Tablet Delayed Release (Protonix) 1 Tablet. 0 02/24/20 23 Active Ferrous Sulfate 325 (65 Fe) MG Oral Tablet (Feosol) Take 1 Tablet by mouth 2 times a day with morning and evening meals. 0 03/11/20 23 Active Furosemide 40 MG Oral Tablet (Lasix)Indication s:Hospital discharge follow-up,Persist ent atrial fibrillation (HCC),Peripheral edema One tablet Monday, Monday and Monday 90 Tablet 3 03/20/19 24 Active Warfarin Sodium 2 MG Oral Tablet (Coumadin)Indicat ions:Atrial flutter, unspecified type (HCC),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 management encounter,continuous churn buttermaker current use of anticoagulant therapy,PAF (paroxysmal atrial fibrillation) (HCC) TAKE 1-2 TABLETS BY MOUTH DAILY DIRECTED BY ANTICOAGULATION CLINIC 100 Tablet 3 12/06/19 23 024 Discontinued Furosemide 40 MG Oral Tablet (Lasix) One tablet 5-6 days per week (skip Monday and Monday) 90 Tablet 3 01/20/20 23 024 Discontinued(Re fill) Cefdinir 300 MG Oral Capsule (Omnicef) 1 Capsule. 0 02/29/20 23 024 Discontinued documented as of this encounter (statuses as of 03/20/2023) Active Problems Problem Noted Date Diagnosed Date [...] as of this encounter (statuses as of 03/20/2023) Resolved Problems Problem Noted Date Diagnosed Date [...] as of this encounter (statuses as of 03/20/2023) Immunizations Name Administration Dates Next Due COVID-19 [...] Sign Reading Time Taken Comments Blood Pressure 132/60 03/20/2023 10:38 AM EST Pulse 80 03/20/2023 10:38 AM EST Temperature - - Respiratory Rate 14 03/20/2023 10:38 AM EST Oxygen Saturation - - Inhaled Oxygen Concentration - - Weight 66.4 kg (146 lb 6.2 oz) 03/20/2023 10:38 AM EST Height - - Body Mass Index 26.77 12/08/2022 2:23 PM EDT documented in this encounter Patient Instructions * Patient Instructions* Sofie Upton CRNP - 03/20/2023 11:10 AM EST Restart Furosemide 40mg on Monday's, Monday's, Monday's only. Continue all other medications as prescribed Labs in one week (non-fasting) I will have office contact you with what GI says about getting testing started vs waiting for GI appt in May. Keep appointment with Cameron Becerra in July at [facility] documented in this encounter Progress Notes * Sofie Upton CRNP - 03/20/2023 10:43 AM EST 03/20/2023 Cardiology Follow Up Primary Commanding Officer Motorized Squad: Cameron Becerra PA-C Cardiac Problems: Diastolic CHF Arrhythmias: PAT, PSVT, PVC, Nonsustained VT, Persistent A-fib HTN Dyslipidemia Stage III CKD DM Type II History of breast CA Anemia. HPI: Cristine Benitez is a 87 year old female presents for close hospital discharge follow up. Presents for close follow up after a recent hospitalization. She was admitted for an acute GI bleed, and supratheurapetic INR. Subsequent work up also revealed positive Influenza A. GI work up was negative, and it was discussed about transitioning patient to Eliquis given her increased CHADs-Vasc score; however, this was discussed with Dr. Umana, and due to continued low HgB, we discussed riskoutweighing benefit to start AC therapy at this time and are awaiting further labs and GI testing. Patient and son verbalized understanding of that risk. She presented to the ED again on 03/09 for bight red blood from the rectum likely due to internal hemorrhoids. Patient was discharged with plans for a short term rehab stay. Patient presents today feeling overall well. Offers no cardiac questions or concerns. Of note, she tested positive for Covid last week but is asymptomatic. Denies any further bleeding issues, but does state that when she has diarrhea, that her stool is black. BP at target. Reports compliance on all medication therapies. Labs last drawn 03/12. HgB stable in the 's. REVIEW OF SYSTEMS: See HPI for pertinent positives. All others negative other than those noted in the HPI. CONSTITUTIONAL: No change in weight, No weakness, No fatigue and No fevers, No sweats or chills. PULMONARY: No cough, sputum, or hemoptysis, No wheezing, No shortness or breath and No recent change in breathing. CARDIOVASCULAR: No chest pain, No dyspnea on exertion, No edema, No palpitations and No syncope. GASTROINTESTINAL: No abdominal pain, No change in bowel habits, No significant heartburn, No nausea, No vomiting, No diarrhea, No constipation, No blood in stools or black tarry stools. No dysphagia. HEMATOLOGIC: No abnormal bleeding and No bruising. NEUROLOGICAL: Normal balance, No headaches and No weakness. Review of patient's allergies indicates: Allergen Reactions Aleve [Naproxen Sodium] Bleeding Hs of GI bleed Aspirin Bleeding Ibuprofen Bleeding Hx of GI bleed Doxycycline Neuro complications (Please comment) Hallucinations Hxrlwgiu-Fkrbabfgj-Av [Dcdnupty-Sekakrsqc-Pw] Caused eye problems Neosporin rash Sulfa Antibiotics [...] DAY NEEDED FOR ITCHING 30 g 2 Exchange LabTouch Verio In Vitro Strip (Glucose Blood) Use to test blood sugar once a day DX e11.9 100 Strip3 OneTouch Verio Flex System w/Device Kit Use as directed . Use to test blood sugar Dx e11.9 1 Kit 0 Lisinopril 20 MG Oral Tablet (Prinivil) TAKE [...] ANDSUPPER 180 Tablet 1 OneTouch Delica Plus [id number] Use as directed. Use to test blood sugar once a day DX e11.9 100 Each 3 HYDROcodone-Acetaminophen 5-325 MG Oral Tablet Take 1 Tablet by mouth 2 times a day as needed for Pain, Severe. 30 Tablet 0 Atorvastatin Calcium 80 MG Oral Tablet (Lipitor) TAKE 1 TABLET BY MOUTH EVERY DAY IN THE MORNING 90Tablet 3 OneTouch Ultra In Vitro Strip (Glucose [...] MG Oral Tablet (Lasix) One tablet Monday, Monday and Monday 90 Tablet 3 Zoster Vac Recomb Adjuvanted 50 MCG/0.5ML Intramuscular Suspension Reconstituted (Shingrix) Inject 0.5 mL into a large muscle now and repeat dose in 60 to 180 days (Patient not taking: Reported on 01/19/2023) 1 Each 1 No current facility-administered medications for this visit. Past Medical History: Diagnosis Date AC APPEND W PERITONITIS 10/15/2010 Acute duodenal ulcer with hemorrhage 12/2007 Atrial fibrillation (HCC) 12/2007 Benign hypertensive kidney disease with chronic kidney disease stage I through stage IV, or unspecified(403.10) Breast cancer (HCC) 2005 left breast CA Chronic kidney disease (CKD) 10/27/2016 DM type 2 goal A1C below 7.5 06/23/2015 Essential hypertension with goal blood pressure less than 140/90 02/10/2016 GI hemorrhage 02/20/2023 Admitted [facility] Hemorrhoids, external without complications 09/17/2003 Influenza A 02/20/2023 Iron deficiency anemia Kidney disease, chronic, stage III (GFR 30-59 ml/min) (HCC) Low HDL (under 40) 12/25/2014 Mixed dyslipidemia Neoplasm of unspecified nature of breast 02/2006 Ca in situ - left breast Other cataract 03/2007 bilateral - moderate Panic disorder Personal history of malignant neoplasm of breast 02/08/2008 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 A+Ox3. HEENT: Normocephalic. Atraumatic. PERRL. EOMI. Conjunctiva and sclera clear. NECK: No carotid bruits. No JVD. Carotid upstrokes are brisk. Heart: RRR. S1 and S2 noted. No murmur. No rubs or gallops. PMI non displaced. Lungs: Clear to auscultation. No wheezes.No rhonchi. No rales. Abdomen: Normal bowel sounds. Soft. Nontender. No masses or organomegaly. No abdominal bruits. Extremities: No edema. No clubbing or cyanosis. Pulses: radial=2/4, posterior tibial=2/4, dorsalis pedis = 2/4. NEURO: No focal deficits. PSYCH: Appropriate affect and insight. DATA Labs & Imaging Reviewed Below: EKG 01/19/23 Atrial fibrillation Low voltage QRS, consider pulmonary disease, pericardial effusion, or normal variant Abnormal ECG When compared with ECG of 21-SEP-2021 13:30, No significant change was found Ventricular Rate: 78 Echocardiogram 11/17/22 The rhythm during the transthoracic echo examination [...] regurgitation with mild pulmonary hypertension now present. ASSESSMENT/PLAN: 87 year old year old female 1. Hospital discharge follow-up 2. Gastrointestinal hemorrhage, unspecified gastrointestinal hemorrhage type -patient is doing well from a cardiac standpoint. She does exhibit some mild swelling of her bilateral lower extremities, but reports that she has not been getting her Furosemide while at Rehab. -We will restart Furosemide 40mg PO 3 days per week. Repeat labs in one week. -Keep nephrology appt tomorrow. -No joao bleeding reported. Check CBC in one week. -IP GI plan was to have patient follow up OP and have camera pill test; however, she is not scheduled to see them until Late may. This is a concern as we continue to hold AC therapy and increase the risk for a thromboembolic event. -will send staff message to GI for recommendation - CBC; Future - Furosemide 40 MG Oral Tablet (Lasix); One tablet Monday, Monday and Monday Dispense: 90 Tablet; Refill: 3 - BASIC METABOLIC PANEL; Future 3. Persistent atrial fibrillation (HCC) - Rate controlled. -Continue Toprol xl. -We will continue to hold oral AC therapy with the eventual plan to start Eliquis if hemoglobin stabilizes. Increased CHADS-VASC with risk for thromboembolic event. Both patient and son verbalize understanding. -mild fluid retention in lower extremities. Restart Lasix at reduced dose - Furosemide 40 MG Oral Tablet (Lasix); One tablet Monday, Monday and Monday Dispense: 90 Tablet; Refill: 3 - BASIC METABOLIC PANEL; Future 4. Peripheral edema - Furosemide 40 MG Oral Tablet (Lasix); One tablet Monday, Monday and Monday Dispense: 90 Tablet; Refill: 3 - BASIC METABOLIC PANEL; Future DISPOSITION: Follow up 4-5 months or if symptoms worsen/fail to improve. All questions were answered to the patients satisfaction. Patient advised to report to ED with any and all emergencies. The patient agrees to the above plan and will call with additional questions or concerns. PARESH Mcdaniel Cardiology, [address] [address] I spent a total of 44 minutes on the date of service in preparation, delivery, and documentation ofthe care provided to Cristine Benitez excluding any time spent in the performance of separately billed services. This chart was completed in part utilizing [employer] Speech Voice Recognition Software. Grammatical errors, random word insertions, pronoun errors, and incomplete sentences are an occasional consequence of this system due to software limitations, ambient noise, and hardware issues. Any formal questions or concerns about the content, text, or information contained within the body of this dictation should be directly addressed to the provider for clarification. documented in this encounter Nursing Notes * Jessica Yadav LPN - 03/20/2023 10:37 AM EST Examination Room: 6 Name: Cristine Benitez Date of : 1935 Reason for Visit: Follow up Problems/Concerns: Question about meds Interim Hosp(s): [facility] Chest Pain/SOB: denies MyChart Discussed: NO Patient was instructed to not get up on the exam table until directed and assisted by their provider; patient is to remain seated in the chair/ wheelchair/ exam table for fall prevention and safety reasons. Patient is aware staff will assist stepping down off exam table with personnel. documented in this encounter Plan of Treatment Upcoming Encounters Date Type Department Care Team (Late st Contact Info) Description 03/20/2023 5:10 PM EST 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 Pharmacy, [address] [place] [address] [place] [address] 03/22/2023 1:00 PM EST Office Visit Nephrology [address] [place] [address] Carlene Kendrick MD [address] [facility] [place] [address] 03/31/2023 11:10 AM EST Office Visit Family Medicine [address] [place] [phone] [address] [place] [address] 06/05/2023 2:00 PM EDT Office Visit Gastroenterology, [facility] [address] [place] [address] Jen Salgado CRNP [address] [place] [address] 07/04/2023 11:30 AM EDT Office Visit Family Medicine [address] [place] [phone] [place] [address] 07/27/2023 1:30 PM EDT Office Visit Cardiology [address] [place] [address] Cameron Becerra PA-C [address] [place] [address] Scheduled Orders Name Type Priority Associated Diagnoses Orde r Schedule CBC Lab Routine Hospital discharge follow-up Gastrointestinal hemorrhage, unspecified gastrointestinal hemorrhage type Expected: 03/27/2023, Expires: 03/20/2024 BASIC METABOLIC PANEL Lab Routine Hospital discharge follow-up Persistent atrial fibrillation (HCC) Peripheral edema Expected: 03/27/2023, Expires: 03/20/2024 Health Maintenance Due Date Last Done Comments Hepatitis B (1 of 3 - Risk 3-dose series) 1994 Depression Screening 08/03/2021 08/03/2020 Diabetic Foot Exam 02/08/2023 02/08/2022, 0 05/28/2020, 05/17/2019, Additional history exists Diabetic Eye Exam 03/15/2023 03/15/2022, , 11/03/2020, Additional history exists HbA1c 07/20/2023 01/19/2023, 0908/2022, 12/03/2021, Additional history exists Albumin/Creatinine Ratio 11/17/20232 023, 03/29/2022, 01/06/2021, Additional history exists CKD PHOS USE SMARTSET 62463 01/20/2024 11/0 11/2022, 11/21/2022, 01/06/2021, Additional history exists CKD HGB USE SMARTSET 94781 03/19/202403/19, 03/12/2023, 03/07/2023, Additional history exists DXA [...] as of this encounter Visit Diagnoses Diagnosis Hospital discharge follow-up- Primary Other follow-up examination Gastrointestinal hemorrhage, unspecified gastrointestinal hemorrhage type Persistent atrial fibrillation (HCC) Atrial fibrillation Peripheral edema Edema documented in this encounter Care Teams Journeyman Apprentice Electricians Relationship Specialty Start Date End Date Priyanka Falcon MD [address] [place] [address] [place] [phone] PCP - General Family Medicine 01/04/19 documented as of this encounter"
--- OUTSIDE RECORDS SUMMARY | 2023-03-27 23:38 | External Medical Summary | Summary of Care ---
Author Name Unknown Organization [facility] Address [address] [place] [address] Phone [phone] Care Team Providers Care Trial Management Associate Name Role Phone Priyanka Falcon MD Primary Care Prov ider Reason for Visit * Reason Comments Follow Up Encounter Details Date Type Department Care Team (Latest Contact Info) Description 03/20/2023 10:30 AM EST Office Visit Cardiology, [facility] [address] [place] [address] Sofie Upton CRNP [address] [place] [address] Hospital discharge follow-up*; Gastrointestinal hemorrhage, unspecified gastrointestinal hemorrhage type; Persistent atrial fibrillation (HCC); Peripheral edema Allergies Active Allergy Reactions Criticality Noted Date Comments Naproxen Sodium Bleeding High 12/03/2009 Hs of GI bleed Aspirin Bleeding High 12/03/2009 Doxycycline Neuro complications (Please comment) Medium 10/23/2010 Hallucinations Ibuprofen Bleeding High 12/03/2009 Hx of GI bleed Nitrofurantoin Monohydrate Macrocrystals Neuro complications (Please comment) Low 09/16/2009 Headaches Fzmrmxuj-Odfakybxd-Bj 01/25/2011 Caused eye problems Neosporin 05/30/2003 rash [...] ITCHING 30 g 2 05/29/19 21 Active [employer] Verio In Vitro Strip (Glucose Blood)Indications :Type 2 diabetes mellitus with hemoglobin A1c goal of less than 7.5% (HCC) Use to test blood sugar once a day DX e11.9 100 Strip 3 05/15/19 22 Active [employer] Verio Flex System w/Device KitIndications:Ty pe 2 [...] 1 09/09/19 23 Active OneTouch Delica Plus [id number] ons:Type 2 diabetes mellitus with hemoglobin A1c [...] ions:Atrial flutter, unspecified type (HCC),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 management encounter,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,PAF (paroxysmal [...] appointment with Cameron Becerra in July at [facility] documented in this encounter Progress Notes * Sofie Upton CRNP - 03/20/2023 10:43 AM EST 03/20/2023 Cardiology Follow Up Primary General Cargo Clerk: Cameron Becerra PA-C Cardiac Problems: Diastolic CHF [...] bleed Doxycycline Neuro complications (Please comment) Hallucinations Wlwqjyca-Kqsxawdfk-Pk [Sbpynwik-Ubkcvxpfu-Ng] Caused eye problems Neosporin rash Sulfa Antibiotics [...] DAY NEEDED FOR ITCHING 30 g 2 [employer] Verio In Vitro Strip (Glucose Blood) Use [...] ANDSUPPER 180 Tablet 1 OneTouch Delica Plus [id number] Use as directed. Use to test blood [...] than 140/90 02/10/2016 GI hemorrhage 02/20/2023 Admitted [facility] Hemorrhoids, external without complications 09/17/2003 Influenza A [...] additional questions or concerns. PARESH Mcdaniel Cardiology, [address] [address] I spent a total of 44 minutes on the date of service in preparation, delivery, and documentation ofthe care provided to Cristine Benitez excluding any time spent in the performance of separately billed services. This chart was completed in part utilizing [email or web address] Speech Voice Recognition Software. Grammatical errors, random [...] Description 03/20/2023 5:10 PM EST 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 Pharmacy, [address] [place] [address] [place] [address] 03/22/2023 1:00 PM EST Office Visit Nephrology [address] [place] [address] Carlene Kendrick MD [address] [facility] [place] [address] 03/31/2023 11:10 AM EST Office Visit Family Medicine [address] [place] [phone] Liliane Lobato [address] [place] [address] 06/05/2023 2:00 PM EDT Office Visit Gastroenterology, [facility] [address] [place] [address] Jen Salgado CRNP [address] [place] [address] 07/04/2023 11:30 AM EDT Office Visit Family Medicine [address] [place] [phone] [place] [address] 07/27/2023 1:30 PM EDT Office Visit Cardiology [address] [place] [address] Cameron Becerra PA-C [address] [place] [address] Scheduled Orders Name Type Priority Associated Diagnoses [...] Additional history exists CKD PHOS USE SMARTSET 08056 01/20/2024 11/0 11/2022, 11/21/2022, 01/06/2021, Additional history exists CKD HGB USE SMARTSET 44793 03/19/202403/19, 03/12/2023, 03/07/2023, Additional history exists DXA [...] Edema documented in this encounter Care Teams Trial Management Associate Relationship Specialty Start Date End Date Priyanka Falcon MD [address] [place] [address] [place] [phone] PCP - General Family Medicine 01/04/19 documented as of this encounter"
--- OUTSIDE RECORDS SUMMARY | 2023-03-27 23:38 | External Medical Summary | Summary of Care ---
Author Name Unknown Organization [facility] Address [address] [place] [address] Phone [phone] Care Team Providers Care Crosstie Inspector Name Role Phone Priyanka Falcon MD Primary Care Prov ider Reason for Referral * Precert (Within 10 days (routine)) - Authorized Specialty Diagnoses / Procedures Referred By Contac t Referred To Contact Radiology Diagnoses Iron deficiency anemia, unspecified iron deficiency anemia type Occult blood positive stool Procedures VIDEO CAPSULE ENDOSCOPY Priyanka Falcon MD [address] [place] [address] [place] [id number] Referral ID Status Reason Start Date Expiration Date V isits Requested Visits Authorized [id number] Authorized 03/09/2023 999 999 Reason for Visit * Reason Onset Date Comments Hospital Follow-Up 03/01/2023 Order Request 03/01/2023 VCE order Encounter Details Date Type Department Care Team (Late st Contact Info) Description 03/01/2023 Telephone General Internal Medicine [facility] [address] [place] [address] Priyanka Falcon MD [address] [place] [address] [place] [address] Hospital Follow-Up; Order Request (VCE ord... Allergies Active Allergy Reactions Criticality Noted Date Comments Naproxen Sodium Bleeding High 12/03/2009 Hs of GI bleed Aspirin Bleeding High 12/03/2009 Doxycycline Neuro complications (Please comment) Medium 10/23/2010 Hallucinations Ibuprofen Bleeding High 12/03/2009 Hx of GI bleed Nitrofurantoin Monohydrate Macrocrystals Neuro complications (Please comment) Low 09/16/2009 Headaches Payqybnr-Dnftepjhm-Zg 01/25/2011 Caused eye problems Neosporin 05/30/2003 rash [...] FOR ITCHING 30 g 2 05/28/2020 Active [employer] In Vitro Strip (Glucose Blood)Indications: Type 2 diabetes mellitus with hemoglobin A1c goal of less than 7.5% (HCC) Use to test blood sugar once a day DX e11.9 100 Strip 3 05/14/2021 Active [employer] Verio Flex System w/Device KitIndications:Typ e 2 [...] goal of less than 7.5% ([facility]) TAKE 1 TABLET BY MOUTH TWICE A DAY WITH BREAKFAST AND SUPPER 180 Tablet 1 09/08/2022 Active OneTouch Delica Plus [id number] ns:Type 2 diabetes mellitus with hemoglobin A1c goal of less than 7.5% ([facility]) Use as directed. 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 E11.9 100 Strip 5 12/08/2022 Active glipiZIDE ER 2.5 MG Oral Tablet Extended Release 24 Hour (Glucotrol XL)Indications:Typ e 2 diabetes mellitus with hemoglobin A1c goal of less than 7.5% ([facility]) TAKE 1 TABLET BY MOUTH DAILY [...] encounter Miscellaneous Notes * Telephone Encounter - Braxton Terrazas OSA - 03/09/2023 3:32 PM EST LMcell asking pt to return call to move up VCE consent appt. Appt can be a return with any provider, several openings are currently available with Lenny at . * Addendum Note - Nehemias Ramirez CRNP [...] PM EST Patient discharged home from [facility] 02/28/23. GI consulted and recommend an outpatient video capsule to evaluate for AVMs. Please assist with this recommendation. Thank you documented in this encounter Plan of Treatment Upcoming Encounters Date Type Department Care Team (Late st Contact Info) Description 03/20/2023 10:30 AM EST Office Visit Cardiology, [facility] [address] [place] [address] Sofie Upton CRNP [address] [place] [address] 03/20/2023 5:10 PM EST 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 Pharmacy, [address] [place] [address] [place] [address] 03/22/2023 1:00 PM EST Office Visit Nephrology [address] [place] [address] Carlene Kendrick MD [address] [facility] [address] 03/30/2023 3:00 PM EST Office Visit Family [address] [phone] Luanne Nielson PA-C [address] [place] [address] [place] [address] 06/05/2023 2:00 PM EDT Office Visit Gastroenterology, [facility] [address] [place] [address] Abdoul Salgado CRNP [address] [place] [address] 07/04/2023 11:30 AM EDT Office Visit Family [address] [phone] Liliane Lobato DO [address] [place] [address] [place] [address] 07/27/2023 1:30 PM EDT Office Visit Cardiology [address] [place] [address] Cameron Becerra PA-C [address] [place] [address] Scheduled Orders Name Type Priority Associated Diagnoses [...] Additional history exists CKD PHOS USE SMARTSET 96242 01/20/202411/2022, 11/21/2022, 01/06/2021, Additional history exists CKD HGB USE SMARTSET 92306 03/07/202403/07, 03/07/2023, 11/16/2022, Additional history exists DXA [...] contents documented in this encounter Care Teams Crosstie Inspector Relationship Specialty Start Date End Date Priyanka Falcon MD [address] [place] [address] [place] [phone] PCP - General Family Medicine 01/04/19 documented as of this encounter
--- OUTSIDE RECORDS SUMMARY | 2023-03-27 23:38 | External Medical Summary ---
Author Name Unknown Address Unknown Organization [facility] [address] [place] [address] Laboratory Report Ordering Provider Test Date Status ASHLEY NEELY 03/12/2023 05:45:00 Final Observation Date Value Abnormality Reference (Units ) Status BUN 03/12/2023 05:45:00 18 6-20 (mg/dL) Final Creatinine 03/12/2023 05:45:00 1.0 0.5-1.0 (mg/dL) Final Glomerular filtration rate/1.73 sq M.predicted [Volume Rate/Area] in Serum, Plasma or Blood by Creatinine-based formula (CKD-EPI) 03/12/2023 05:45:00 52 Below low normal >=60 (mL/min) Final eGFR is calculated based on the CKD-EPI 2020 equation SODIUM 03/12/2023 05:45:00 140 135-146 (m mol/L) Final Potassium 03/12/2023 05:45:00 4.1 3.5-5.1 (m mol/L) Final Cl 03/12/2023 05:45:00 106 98-107 (mm ol/L) Final CO2 03/12/2023 05:45:00 20 Below low normal 22- 32 (mmol/L) Final Anion gap 03/12/2023 05:45:00 14 7-15 (mmol /L) Final Glucose 03/12/2023 05:45:00 131 Above high normal 70 -120 (mg/dL) Final Calcium 03/12/2023 05:45:00 8.4 8.4-10.2 ( mg/dL) Final Performing Location [facility] [address] [place] [address]
--- OUTSIDE RECORDS SUMMARY | 2023-03-27 23:38 | External Medical Summary ---
Author Name Unknown Address Unknown Organization [facility] [address] [place] [address] Laboratory Report Ordering Provider Test Date Status ASHLEY NEELY 03/19/2023 07:56:30 Final Observation Date Value Abnormality Reference (Units ) Status BUN 03/19/2023 07:56:30 17 6-20 (mg/dL) Final Creatinine 03/19/2023 07:56:30 1.2 Above high normal 0.5-1.0 (mg/dL) Final Glomerular filtration rate/1.73 sq M.predicted [Volume Rate/Area] in Serum, Plasma or Blood by Creatinine-based formula (CKD-EPI) 03/19/2023 07:56:30 45 Below low normal >=60 (mL/min) Final eGFR is calculated based on the CKD-EPI 2020 equation SODIUM 03/19/2023 07:56:30 139 135-146 (m mol/L) Final Potassium 03/19/2023 07:56:30 4.5 3.5-5.1 (m mol/L) Final Cl 03/19/2023 07:56:30 107 98-107 (mm ol/L) Final CO2 03/19/2023 07:56:30 19 Below low normal 22- 32 (mmol/L) Final Anion gap 03/19/2023 07:56:30 13 7-15 (mmol /L) Final Glucose 03/19/2023 07:56:30 91 70-120 (mg /dL) Final Calcium 03/19/2023 07:56:30 8.0 Below low normal 8.4 -10.2 (mg/dL) Final Performing Location [facility] - [address] [place] [address]
--- OUTSIDE RECORDS SUMMARY | 2023-03-27 23:38 | External Medical Summary ---
Author Name Unknown Address Unknown Organization [facility] [address] [place] [address] Laboratory Report Ordering Provider Test Date Status ASHLEY NEELY 03/12/2023 05:45:00 Final Observation Date Value Abnormality Reference (Units ) Status WBC, Total 03/12/2023 05:45:00 5.52 4.00-10.8 0 (K/uL) Final RBC 03/12/2023 05:45:00 3.33 3.85-5.15 (M/uL) Final Hemoglobin 03/12/2023 05:45:00 9.8 Below low normal 12 .0-15.3 (g/dL) Final HCT 03/12/2023 05:45:00 31.7 Below low normal 36. 0-45.2 (%) Final MCV 03/12/2023 05:45:00 95.2 81.5-97.5 (fL) Final MCH 03/12/2023 05:45:00 29.4 27.0-34.0 (pg) Final MCHC 03/12/2023 05:45:00 30.9 32.0-36.0 (g/dL) Final RDW 03/12/2023 05:45:00 16.7 11.5-15.5 (%) Final Platelets 03/12/2023 05:45:00 317 140-400 (K /uL) Final MPV 03/12/2023 05:45:00 10.9 6.6-11.1 ( fL) Final Performing Location [facility] [address] [place] [address]
--- OUTSIDE RECORDS SUMMARY | 2023-03-27 23:38 | External Medical Summary ---
Author Name Unknown Address Unknown Organization [facility] [address] - [address] [place] [address] Laboratory Report Ordering Provider Test Date Status ASHLEY NEELY 03/19/2023 07:56:30 Final Observation Date Value Abnormality Reference (Units ) Status WBC, Total 03/19/2023 07:56:30 5.21 4.00-10.8 0 (K/uL) Final RBC 03/19/2023 07:56:30 3.18 3.85-5.15 (M/uL) Final Hemoglobin 03/19/2023 07:56:30 9.4 Below low normal 12 .0-15.3 (g/dL) Final HCT 03/19/2023 07:56:30 30.9 Below low normal 36. 0-45.2 (%) Final MCV 03/19/2023 07:56:30 97.2 81.5-97.5 (fL) Final MCH 03/19/2023 07:56:30 29.6 27.0-34.0 (pg) Final MCHC 03/19/2023 07:56:30 30.4 32.0-36.0 (g/dL) Final RDW 03/19/2023 07:56:30 15.9 11.5-15.5 (%) Final Platelets 03/19/2023 07:56:30 263 140-400 (K /uL) Final MPV 03/19/2023 07:56:30 10.8 6.6-11.1 ( fL) Final Performing Location [facility] [place] [address] [place] [address]
--- OUTSIDE RECORDS SUMMARY | 2023-03-27 23:38 | External Medical Summary | Summary of Care ---
Author Name Unknown Organization [facility] Address [address] [place] [address] Phone [phone] Care Team Providers Care Deckhand Clam Dredge Name Role Phone Priyanka Falcon MD Primary Care Prov ider Reason for Referral * Precert (Within 10 days (routine)) - Authorized Specialty Diagnoses / Procedures Referred By Contac t Referred To Contact Radiology Diagnoses Iron deficiency anemia, unspecified iron deficiency anemia type Occult blood positive stool Procedures VIDEO CAPSULE ENDOSCOPY Priyanka Falcon MD [address] [place] [address] [place] [phone] Referral ID Status Reason Start Date Expiration Date V isits Requested Visits Authorized [id number] Authorized 03/09/2023 999 999 Reason for Visit * Reason Onset Date Comments Hospital Follow-Up 03/01/2023 Order Request 03/01/2023 VCE order Encounter Details Date Type Department Care Team (Late st Contact Info) Description 03/01/2023 Telephone General Internal Medicine [facility] [address] [place] [address] Priyanka Falcon MD [address] [place] [address] [place] [address] Hospital Follow-Up; Order Request (VCE ord... Allergies Active Allergy Reactions Criticality Noted Date Comments Naproxen Sodium Bleeding High 12/03/2009 Hs of GI bleed Aspirin Bleeding High 12/03/2009 Doxycycline Neuro complications (Please comment) Medium 10/23/2010 Hallucinations Ibuprofen Bleeding High 12/03/2009 Hx of GI bleed Nitrofurantoin Monohydrate Macrocrystals Neuro complications (Please comment) Low 09/16/2009 Headaches Pjcmtrqh-Jyyvwuzrg-Oi 01/25/2011 Caused eye problems Neosporin 05/30/2003 rash Sulfa Antibiotics 05/11/2002 nausea & vomiting Tramadol Hcl Unknown 12/03/2009 Triamterene 11/16/2022 ulcers documented as of this encounter (statuses as of 03/17/2023) Medications Medication Sig Dispensed Refills Start Date [...] FOR ITCHING 30 g 2 05/28/2020 Active [employer] In Vitro Strip (Glucose Blood)Indications: Type 2 diabetes mellitus with hemoglobin A1c goal of less than 7.5% (HCC) Use to test blood sugar once a day DX e11.9 100 Strip 3 05/14/2021 Active [employer] Verio Flex System w/Device KitIndications:Typ e 2 [...] Tablet 1 09/08/2022 Active OneTouch Delica Plus Dwtkyc54CLygyzdpmo ns:Type 2 diabetes mellitus with hemoglobin A1c goal of less than 7.5% ([facility]) Use as directed. 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,PAF (paroxysmal atrial fibrillation) ([facility]) TAKE 1-2 TABLETS BY MOUTH DAILY DIRECTED BY ANTICOAGULATION CLINIC 100 Tablet 3 12/05/2022 Active Additional Information Patient not taking.Reported on 03/02/2023 [employer] PartnersTouch Ultra In Vitro Strip (Glucose Blood)Indications: Type 2 diabetes mellitus with hemoglobin A1c goal of less than 7.0% ([facility]) USE TO TEST ONCE PER [...] as of this encounter (statuses as of 03/17/2023) Active Problems Problem Noted Date Diagnosed Date [...] as of this encounter (statuses as of 03/17/2023) Resolved Problems Problem Noted Date Diagnosed Date [...] as of this encounter (statuses as of 03/17/2023) Immunizations Name Administration Dates Next Due COVID-19 [...] encounter Miscellaneous Notes * Telephone Encounter - Ebony Espino OSA - 03/17/2023 4:04 PM EST Pt is on move up list Appt will need to be scheduled as a new pt appt, pt never seen in office. MAGALI Harding 03/17/2023 4:04 PM * Telephone Encounter - Braxton Terrazas OSA [...] PM EST Patient discharged home from [facility] 02/28/23. GI consulted and recommend an outpatient video capsule to evaluate for AVMs. Please assist with this recommendation. Thank you documented in this encounter Plan of Treatment Upcoming Encounters Date Type Department Care Team (Late st Contact Info) Description 03/20/2023 10:30 AM EST Office Visit Cardiology, [facility] [address] [facility] [place] [address] Sofie Upton CRNP [address] [facility] [place] [address] 03/20/2023 5:10 PM EST 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 Pharmacy, [address] [place] [address] [place] [address] 03/22/2023 1:00 PM EST Office Visit Nephrology [address] [place] [address] [facility] [address] 03/30/2023 3:00 PM EST Office Visit Family Medicine [address] [place] [phone] Luanne Nielson PA-C [address] [place] [address] [place] [address] 06/05/2023 2:00 PM EDT Office Visit Gastroenterology, [facility] [address] [place] [address] Abdoul Salgado CRNP [address] [place] [address] 07/04/2023 11:30 AM EDT Office Visit Family Medicine [address] [place] [phone] Liliane Lobato [address] [place] [address] 07/27/2023 1:30 PM EDT Office Visit Cardiology [address] [place] [address] Cameron Becerra PA-C [address] [place] [address] Scheduled Orders Name Type Priority Associated Diagnoses [...] Additional history exists CKD PHOS USE SMARTSET 21448 01/20/2024 110 11/2022, 11/21/2022, 01/06/2021, Additional history exists CKD HGB USE SMARTSET 22889 03/12/202403/12, 03/07/2023, 03/07/2023, Additional history exists DXA Scan 12/09/2027 [...] contents documented in this encounter Care Teams Deckhand Clam Dredge Relationship Specialty Start Date End Date Priyanka Falcon MD [address] [place] [address] [place] [phone] PCP - General Family Medicine 01/04/19 documented as of this encounter
--- OUTSIDE RECORDS SUMMARY | 2023-03-27 23:38 | External Medical Summary | Summary of Care ---
Author Name Unknown Organization [facility] Address [address] [place] [address] Phone [phone] Care Team Providers Care Architecture Faculty Member Name Role Phone Priyanka Falcon MD Primary Care Prov ider Reason for Visit * Reason Comments Dosage Adjustment Via Phone (anticoag Cl inic) Encounter Details Date Type Department Care Team (Latest Contact Info) Description 03/20/2023 5:10 PM EST 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 Pharmacy, [address] [place] [id number] [place] [address] PAF (paroxysmal atrial fibrillation) (FORMERLY [facility])* Allergies Active Allergy Reactions Criticality Noted Date Comments Naproxen Sodium Bleeding High 12/03/2009 Hs of GI bleed Aspirin Bleeding High 12/03/2009 Doxycycline Neuro complications (Please comment) Medium 10/23/2010 Hallucinations Ibuprofen Bleeding High 12/03/2009 Hx of GI bleed Nitrofurantoin Monohydrate Macrocrystals Neuro complications (Please comment) Low 09/16/2009 Headaches [id number]-[id number]-So 01/25/2011 Caused eye problems Neosporin 05/30/2003 rash [...] FOR ITCHING 30 g 2 05/28/2020 Active [employer] In Vitro Strip (Glucose Blood)Indications:T ype 2 diabetes mellitus with hemoglobin A1c goal of less than 7.5% (HCC) Use to test blood sugar once a day DX e11.9 100 Strip 3 05/14/2021 Active [employer] Verio Flex System w/Device KitIndications:Type 2 diabetes [...] Tablet 1 09/08/2022 Active OneTouch Delica Plus [id number] s:Type 2 diabetes mellitus with hemoglobin A1c [...] 03/11/2023 Active Furosemide 40 MG Oral Tablet (Lasix)Indications: Hospital discharge follow-up,Persisten t atrial fibrillation (HCC),Peripheral edema One tablet Monday, Monday and Monday 90 Tablet 3 03/20/2023 Active documented as of this encounter (statuses [...] this encounter Progress Notes * Freda Curtis, [facility] - 03/20/2023 3:46 PM EST Medication Therapy Disease Management - 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 Patient: Cristine Benitez | : 1935 Patient had cardio OV today. Per note, We will continue to hold oral AC therapy with the eventual plan to start Eliquis if hemoglobin stabilizes. Increased CHADS-VASC with risk for thromboembolic event. Both patient and son verbalize understanding. Spoke with PARESH Gilmore via [employer]. Will plan to follow up for possible sooner GI follow up. Will continue holding ACC until that time. Call placed to f/u x2 weeks. Freda Curtis RPh, PharmD Clinical Pharmacist - Taker Off Medication Therapy Disease Management [facility] 03/20/2023, 3:48 PM [phone] documented in this encounter Plan of Treatment Upcoming Encounters Date Type Department Care Team (Late st Contact Info) Description 03/22/2023 1:00 PM EST Office Visit Nephrology [address] [place] [id number] Carlene Kendrick MD [address] [place], [place] [address] [address] 03/31/2023 11:10 AM EST Office Visit Family Medicine [address] [place] [phone] [address] [place] [address] 04/04/2023 5:10 PM EST 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 Pharmacy, [address] [place] [address] [place] [address] 06/05/2023 2:00 PM EDT Office Visit Gastroenterology, [facility] [address] [place] [address] Jen Salgado CRNP [address] [place] [address] 07/04/2023 11:30 AM EDT Office Visit Family Medicine [address] [place] [phone] [address] [place] [address] 07/27/2023 1:30 PM EDT Office Visit Cardiology [address] [place] [address] Cameron Becerra PA-C [address] [place] [address] Health Maintenance Due Date Last Done Comments [...] Additional history exists CKD PHOS USE SMARTSET 13179 01/20/2024 11/0 11/2022, 11/21/2022, 01/06/2021, Additional history exists CKD HGB USE SMARTSET 97449 03/19/202403/19, 03/12/2023, 03/07/2023, Additional history exists DXA [...] (paroxysmal atrial fibrillation) (HCC)- Primary Atrial fibrillation documented in this encounter Care Teams Architecture Faculty Member Relationship Specialty Start Date End Date Priyanka Falcon MD [address] [place] [address] [place] [id number] PCP - General Family Medicine 01/04/19 documented as of this encounter"
[2023-03-28] MEDS: METOPROLOL SUCC 50MG EXT REL TAB PO SCH ×2 (08:29→21:47)
[2023-03-28] MEDS: DOCUSATE SODIUM 100 MG CAP PO SCH (08:29)
[2023-03-28] MEDS: lisinopril 20 MG TAB PO SCH (08:29)
[2023-03-28] MEDS: CHOLECALCIFEROL 1,000 UNITS 25 MCG TAB PO SCH (08:30)
[2023-03-28] MEDS: ATORVASTATIN 40 MG TAB PO SCH (08:30)
[2023-03-28] MEDS: amLODIPine BESYLATE 5 MG TAB PO SCH (08:30)
[2023-03-28] MEDS: FERROUS SULFATE 325 MG TAB PO SCH ×2 (08:31→18:09)
[2023-03-28] MEDS: PANTOprazole 40 MG TAB PO SCH (08:32)
[2023-03-28] MEDS: POLYETHYLENE (MIRALAX) 17 GM PACK PO SCH (08:32)
[2023-03-28] MEDS: CYANOCOBALAMIN (B-12) 500 MCG TABLET PO SCH (08:32)
[2023-03-28 09:12] LABS: Hematocrit (blood only) 29.9 % (37.0-47.0); Hemoglobin 9.9 g/dl (12.0-16.0); Mean Corpuscular Hgb Conc 33.1 g/dL (32.0-36.0); Mean Corpuscular Volume 90.6 fL (80.0-100.0); Mean Platelet Volume 10.4 fL (9.4-12.4); Platelet Count 229 K/uL (130-400); RDW Coefficient of Variation 15.3 % (11.5-14.5); RDW Standard Deviation 50.7 fL (36.4-46.3); White Blood Count 9.35 K/ul (4.8-10.8)
[2023-03-28 09:23] LABS: BUN Creatinine Ratio 20.2 (10-20); Calcium 7.3 mg/dl (8.6-10.3); Creatinine Clr Calc Pharmacy 28.5 ml/min; Est GFR (African American) 47.2 ml/min; Est GFR (Non-African American) 40.7 ml/min; Phosphorus 3.1 mg/dl (2.5-4.9); Potassium 3.6 mmol/L (3.5-5.1)
[2023-03-28] MEDS: INSULIN ASPART PER UNIT CHARGE SC SCH ×4 (10:02→21:45)
[2023-03-28] MEDS ORDERED: METOCLOPRAMIDE HCL INJ 5 MG/ML 2 ML VIAL IV PRN (12:00)
--- NOTE | 2023-03-28 12:12 | Gastrointestinal Consultation ---
Date of Consultation March 28, 2023 Assessment & Plan (1) Weakness: Plan GI is consulted for "nausea, vomiting, weight loss, not eating." She seems to be improving as evidenced by having eaten about 25% of her regular consistency diet (on the tray when I was in the room), was able to sit up and appears comfortable. Nursing notes do not mention any vomiting in the past 24 hrs. There is also a mention of black BMs x 2 days in the H&P but Hb is at baseline (after hemoconcentration on arrival, then IV hydration). At any rate, she has had a very thorough GI work up including CT, EGD, Colonoscopy. Recommend against repeating these, as would likely be low yield. The cause of the worsened nausea/vomiting/poor po intake is likely related to COVID or dementia. GI will sign off. Please recall if gross GI bleeding, multiple vomiting episodes or significant drop in Hb/Hct. Supervising Physician Co-Signing Physician Notes I performed a history and physical examination of the patient today, including specifically on physical exam - soft abdomen. I have discussed the patient's management with the advanced practitioner. Please refer to the nurse practitioner's note for the documented findings and plan of care. History of Present Illness Reason for Consultation: Nausea, vomiting, weight loss, not eating Requesting Physician: Flori Hussein Attending Physician: Flori Hussein MD History of Present Illness Ms. Cristine Benitez is an 87 yr old female pt of jarred Polanco a hx of afib, HTN, dyslipidemia, DM is known to our group because she was admitted4 wks ago f or black/red BMs and Hb 6.6. At that time, she underwent EGD, Colonoscopy was notable only for sandhu diverticulosis and internal hemorrhoids. She was admitted yesterday for weakness, hypomagnesium and GI is consulted for poor po intake, nausea/vomiting. On arrival, non contrast CTAP did not show bowel abnormalities. A small HH and colon diverticulosis was noted. She is COVID (+) on arrival. Hb is stable since last admission. I saw and examined the pt. She was sitting up on bed, soon to be ambulating w the help of PT. She was awake, alert, oriented. She denies any N/V or abdominal pain, however, she does have dementia. A review of the pt's I&O and hourly nurses rounding notes do not mention any c/o nausea or any vomiting. Allergies Allergy/AdvReac Type Severity Reaction Status Date / Time tramadol Allergy Severe HALLUCINATIONS-PER Verified 03/09/23 15:34 GMG bacitracin Allergy Mild CAUSED EYE Verified 03/09/23 15:34 PROBLEMS neomycin Allergy Mild Rash Verified 03/09/23 15:34 polymyxin B Allergy Mild CAUSED EYE Verified 03/09/23 15:34 PROBLEMS Aminoglycosides Allergy Unknown Unknown Verified 03/09/23 15:34 aspirin AdvReac Severe HX OF GI Verified 02/20/23 16:07 BLEED ibuprofen AdvReac Severe HX OF GI Verified 03/09/23 15:34 BLEED naproxen [From Aleve] AdvReac Severe HX OF GI Verified 03/09/23 15:34 BLEED NSAIDS (Non-Steroidal AdvReac Severe HX OF GI Verified 03/09/23 15:34 Anti-Inflamma BLEED doxycycline AdvReac Intermediate HALLUCINATI Verified 03/09/23 15:34 ONS nitrofurantoin AdvReac Intermediate HEADACHES Verified 03/09/23 15:34 [From Macrobid] Sulfa (Sulfonamide AdvReac Intermediate NAUSEA, Verified 03/09/23 15:34 Antibiotics) VOMITING, BAD HEADACHE triamterene AdvReac Intermediate ULCERS Verified 03/09/23 15:34 Home Medications Medication Instructions Recorded Confirmed Type cholecalciferol (vitamin D3) 25 1,000 unit PO DAILY 12/29/18 03/27/23 History mcg (1,000 unit) capsule (Vitamin D3) cyanocobalamin (vitamin B-12) 1,000 mcg PO DAILY 12/29/18 03/27/23 History 1,000 mcg tablet (Vitamin B-12) glipizide 2.5 mg tablet, extended 2.5 mg PO DAILY 12/29/18 03/27/23 History release 24 hr (Glucotrol XL) lorazepam 0.5 mg tablet (Ativan) 0.5 mg PO HS Anxiety 12/29/18 03/27/23 History metoprolol succinate 100 mg 100 mg PO QAM 12/29/18 03/27/23 History tablet,extended release 24 hr (Toprol XL) triamcinolone acetonide 0.1 % 1 applic topical BID PRN Itching 12/29/18 03/27/23 History topical cream (Triderm) amlodipine 2.5 mg tablet 2.5 mg PO QAM 02/20/23 03/27/23 History atorvastatin 80 mg tablet 80 mg PO QAM 02/20/23 03/27/23 History docusate sodium 100 mg capsule 100 mg PO DAILY 02/20/23 03/27/23 History hydrocodone 5 mg-acetaminophen 325 1 tab PO BID PRN Pain, Severe 02/20/23 03/27/23 History mg tablet lisinopril 20 mg tablet 20 mg PO DAILY 02/20/23 03/27/23 History metformin 500 mg tablet 500 mg PO BIDM 02/20/23 03/27/23 History furosemide 40 mg tablet 40 mg PO 5XWK 02/28/23 03/27/23 History metoprolol succinate 100 mg 50 mg PO QPM 03/09/23 03/27/23 History tablet,extended release 24 hr ferrous sulfate 325 mg (65 mg 325 mg PO BIDM #60 tabs 03/11/23 03/27/23 Rx iron) tablet,delayed release lorazepam 0.5 mg tablet 0.5 mg PO DAILY PRN Anxiety 03/27/23 03/27/23 History pantoprazole 40 mg tablet,delayed 40 mg PO DAILY 03/27/23 03/27/23 History release polyethylene glycol 3350 17 gram 17 g PO DAILY PRN Constipation 03/27/23 03/27/23 History oral powder packet (Miralax) Patient History Medical History Persistent atrial fibrillation Nonsustained ventricular tachycardia Paroxysmal SVT (supraventricular tachycardia) Paroxysmal atrial tachycardia Tricuspid regurgitation Mitral regurgitation Chronic diastolic CHF (congestive heart failure) CKD (chronic kidney disease) stage 3, GFR 30-59 ml/min Diabetes mellitus type 2 in obese History of breast cancer Hyperlipidemia Hypertension Surgical History History of partial mastectomy of left breast History of appendectomy H/O bilateral oophorectomy S/P JAYNE (total abdominal hysterectomy) Bilateral cataracts Family History Other No significant family history Social History Smoking Status: Never smoker Hx Alcohol Use: Yes Alcohol type: wine Hx Substance Use: No Preferred Language: Uzbek Communication Ability: Effective Jewel Bearing Driller Required: No Beliefs That Will Affect Care: None Current Living Situation: Alone Current Living Situation Comment: home alone, daughter in visiting from [place]. Son lives close by. current occupational status: retired Feels Safe at Home: Yes Safety Concerns: Feels Safe At This Time Assistive Devices: Cane and Walker Review of Systems Review of Systems: Denies any issues (though pt poor historian) Physical Exam Constitutional: Appears well for her age, sitting up on the bed, awake, alert. Eyes: PERRL, conjunctivae normal, anicteric sclerae ENMT: external ear and nose normal, oropharynx normal Neck: trachea midline, no thyromegaly Respiratory: normal respiratory effort, lungs clear to auscultation Cardiovascular: irregular rhythm, no murmurs, trace bilat lower leg edema Gastrointestinal (Abdomen): normal bowel sounds, soft, nontender, no hepatosplenomegaly Skin: no rashes, warm and dry Neurologic: PERRL, EOMI, accommodation nl, no face palsy, no dysarthria Psychiatric: awake, alert, verbally interactive though responses to questions are non specific Lymphatic: no cervical or axillary lymphadenopathy Results & Data Vital Signs (Past 12 Hours) Vital Signs Temp Pulse Resp BP Pulse Ox O2 Del Method 03/28/23 11:48 36.7 C 96 H 18 101/61 95 Room Air 03/28/23 07:49 36.9 C 93 H 18 99/53 L 95 Room Air 03/28/23 03:50 36.9 C 87 114/56 L 94 Room Air Laboratory Results WBC 9, Hb 9.9, Hct 29, Plts 229, Na 138, K 3.6, CL 107, CO2 19, BN 24, Cr 119, glucose 131 Diagnostic Findings Non contrast CTAP 03/27/23: 1. No bowel wall thickening or obstruction. 2. No hydronephrosis. 3. Colonic diverticulosis. No evidence for acute diverticulitis. 4. Trace left pleural effusion. 5. Small hiatus hernia. CXR 02/24/24 mild cardiomegaly, no acute abnormalities.
[2023-03-28] MEDS: MAGNESIUM CHLORIDE W/CALCIUM 64MG DELAYED REL TAB PO SCH ×2 (12:18→21:46)
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
--- NOTE | 2023-03-29 06:06 | Electrocardiogram Report ---
Test Reason : Blood Pressure : / mmHG Vent. Rate : 085 BPM Atrial Rate : 000 BPM P-R Int : 000 ms QRS Dur : 064 ms QT Int : 352 ms P-R-T Axes : 000 037 118 degrees QTc Int : 418 ms Poor data quality, interpretation may be adversely affected Atrial fibrillation Low voltage QRS Nonspecific ST and T wave abnormality Abnormal ECG When compared with ECG of 09-MAR-2023 12:16, PVCs are no longer Present Confirmed by Israel Sheppard ([id number]) on 03/29/2023 6:06:20 AM Referred By: Confirmed By:Israel Sheppard
[2023-03-29 07:17] LABS: Hematocrit (blood only) 28.4 % (37.0-47.0); Hemoglobin 9.2 g/dl (12.0-16.0); Mean Corpuscular Hemoglobin 29.6 pg (25.0-34.0); Mean Corpuscular Hgb Conc 32.4 g/dL (32.0-36.0); Mean Corpuscular Volume 91.3 fL (80.0-100.0); Mean Platelet Volume 10.5 fL (9.4-12.4); Platelet Count 243 K/uL (130-400); RDW Coefficient of Variation 15.1 % (11.5-14.5); RDW Standard Deviation 50.5 fL (36.4-46.3); Red Blood Count 3.11 M/uL (4.20-5.40); White Blood Count 9.67 K/ul (4.8-10.8)
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
[2023-03-29 07:58] LABS: Alanine Aminotransferase 9 U/L (7-52); Albumin Globulin Ratio 0.7 (0.9-2); Albumin Level 2.5 gm/dl (3.4-5.0); Alkaline Phosphatase 70 U/L (34-104); Anion Gap 11 (3-11); Aspartate Aminotransferase 17 U/L (13-39); BUN Creatinine Ratio 22.7 (10-20); Blood Urea Nitrogen 25 mg/dl (6-23); Calcium 7.4 mg/dl (8.6-10.3); Carbon Dioxide 20 mmol/L (21-32); Chloride 109 mmol/L (98-107); Creatinine Clr Calc Pharmacy 31.3 ml/min; Est GFR (African American) 51.9 ml/min; Est GFR (Non-African American) 44.8 ml/min; Globulin 3.4 gm/dl (2.5-4.0); Glucose 116 mg/dl (70-99(Fasting)); Iron < 10 mcg/dl (35-150); Magnesium 1.8 mg/dl (1.7-2.4); Phosphorus 2.6 mg/dl (2.5-4.9); Potassium 3.6 mmol/L (3.5-5.1); Sodium 140 mmol/L (136-145); Total Protein 5.9 gm/dl (6.0-8.3)
[2023-03-29] MEDS: INSULIN ASPART PER UNIT CHARGE SC SCH ×4 (08:07→20:54)
[2023-03-29] MEDS: METOPROLOL SUCC 50MG EXT REL TAB PO SCH ×2 (08:33→20:56)
[2023-03-29] MEDS: amLODIPine BESYLATE 5 MG TAB PO SCH (08:34)
[2023-03-29] MEDS: CHOLECALCIFEROL 1,000 UNITS 25 MCG TAB PO SCH (08:34)
[2023-03-29] MEDS: ATORVASTATIN 40 MG TAB PO SCH (08:34)
[2023-03-29] MEDS: CYANOCOBALAMIN (B-12) 500 MCG TABLET PO SCH (08:34)
[2023-03-29] MEDS: PANTOprazole 40 MG TAB PO SCH (08:35)
[2023-03-29] MEDS: MAGNESIUM CHLORIDE W/CALCIUM 64MG DELAYED REL TAB PO SCH ×2 (08:35→20:56)
[2023-03-29] MEDS: lisinopril 20 MG TAB PO SCH (08:35)
[2023-03-29] MEDS: POLYETHYLENE (MIRALAX) 17 GM PACK PO SCH (09:00)
[2023-03-29] MEDS: DOCUSATE SODIUM 100 MG CAP PO SCH (09:00)
[2023-03-29] MEDS ORDERED: IRON SUCROSE 300 MG in SODIUM CHLORIDE 0.9% 250 ML IV ONE (12:00)
--- NOTE | 2023-03-29 14:17 | Hospitalist Progress Note ---
Date of Service March 29, 2023 Assessment & Plan (1) Weakness: (2) JOLIE (acute kidney injury): (3) Hypomagnesemia: (4) Chronic diastolic CHF (congestive heart failure): (5) Hypertension: (6) Black stool: (7) Anemia: (8) Persistent atrial fibrillation: Plan 87-year-old female with symptoms of abdominal pain, generalized weakness, ambulatory dysfunction and noted on labs to have severe hypomagnesemia in the setting of chronic N/V and decreased appetite. Decreased appetite N/V Generalized weakness Per family has been happening for about a month IV antiemetics Regular diet GI consult Nutrition consult IV fluids as long as PO intake poor PT/OT- recommending rehab Hypomagnesemia Likely in setting of decreased appetite, chronic ppi use On scheduled magnesium, slow mag 64mg BID 03/29- Magnesium continues to drop in spite of scheduled po slow mag. Down from 2.0 to 1.8 today. IV Mag 2 bags given. Consider switch to po mag-ox Continue to replete as needed COVID Per family pt tested positive a week ago on Monday, on Mar 17 Pt asymptomatic, no increased oxygen need COVID precautions, monitor Chronic Anemia Iron Deficiency Anemia appears to be chronic FOBT still positive On iron po supplementation- will hold in setting of N/V AM iron level <10 Repleted with IV iron on 03/29 full iron panel pending Will continue to monitor History of hypertension continue lisinopril daily Type 2 diabetes Hgba1c of 8.5 on 03/04 Not at goal for age ISS while hospitalized Urinary obstruction Bladder scan shows 350 mL urine. Patient advised by admitting provider to have intermittent catheterization however is refusing at this time. DVT prophylaxis: scds in setting of anemia Diet: Full Liquids in setting of N/V Patient is a full code. Family updated at about 8pm on 03/28/23 Admission and Anticipated Discharge Date Admission Date: March 27, 2023 Subjective Pt seen in the AM, pleasant. Was trying to sit up in bed to eat breakfast but was too weak. Had significant difficulty sitting up and required assistance. Otherwise denied acute concerns. Review of Systems Review of Systems: All systems reviewed & are unremarkable except as noted in Subjective Physical Exam Physical Exam: General: Alert, oriented. No acute distress Psych: Appropriate mood and affect Neuro: weakness, gait instability HEENT: NC/AT CV: RRR Resp: Breath sounds clear bilaterally, no increased effort of breathing. Abdomen: Soft, nontender, nondistended. Extremities: No edema in lower extremities bilaterally. Results & Data Results & Data Vital Signs (Past 12 Hours) Vital Signs Temp Pulse Resp BP Pulse Ox O2 Del Method 03/29/23 07:48 36.6 C 93 H 16 128/63 95 Room Air 03/29/23 03:03 36.7 C 89 18 121/70 95 Room Air
[2023-03-29] MEDS: SODIUM CHLORIDE 0.9% 1,000 ML IV SCH (15:11)
[2023-03-29] MEDS: MAGNESIUM SULFATE / D5W 1 GM/100 ML BAG IV SCH ×2 (15:12→16:55)
[2023-03-30] MEDS: SODIUM CHLORIDE 0.9% 1,000 ML IV SCH ×2 (03:18→18:47)
[2023-03-30] MEDS: INSULIN ASPART PER UNIT CHARGE SC SCH ×4 (07:31→20:18)
[2023-03-30 08:13] LABS: Hematocrit (blood only) 26.1 % (37.0-47.0); Hemoglobin 8.4 g/dl (12.0-16.0); Mean Corpuscular Hemoglobin 29.5 pg (25.0-34.0); Mean Corpuscular Hgb Conc 32.2 g/dL (32.0-36.0); Mean Corpuscular Volume 91.6 fL (80.0-100.0); Mean Platelet Volume 10.5 fL (9.4-12.4); Platelet Count 245 K/uL (130-400); RDW Coefficient of Variation 14.9 % (11.5-14.5); RDW Standard Deviation 50.4 fL (36.4-46.3); Red Blood Count 2.85 M/uL (4.20-5.40); White Blood Count 8.02 K/ul (4.8-10.8)
[2023-03-30 08:30] LABS: Anion Gap 9 (3-11); BUN Creatinine Ratio 23.1 (10-20); Blood Urea Nitrogen 21 mg/dl (6-23); Calcium 7.3 mg/dl (8.6-10.3); Carbon Dioxide 19 mmol/L (21-32); Chloride 111 mmol/L (98-107); Est GFR (African American) 65.3 ml/min; Est GFR (Non-African American) 56.3 ml/min; Glucose 106 mg/dl (70-99(Fasting)); Potassium 3.5 mmol/L (3.5-5.1); Sodium 139 mmol/L (136-145)
[2023-03-30 08:31] LABS: Alanine Aminotransferase 9 U/L (7-52); Albumin Globulin Ratio 0.7 (0.9-2); Albumin Level 2.3 gm/dl (3.4-5.0); Alkaline Phosphatase 69 U/L (34-104); Aspartate Aminotransferase 19 U/L (13-39); Bilirubin,Total 0.9 mg/dl (0.2-1.0); Globulin 3.1 gm/dl (2.5-4.0); Iron 152 mcg/dl (35-150); Magnesium 2.1 mg/dl (1.7-2.4); Phosphorus 2.1 mg/dl (2.5-4.9); Total Protein 5.4 gm/dl (6.0-8.3); Unsaturated Iron Binding Cap < 55 mcg/dl (155-355)
[2023-03-30] MEDS: MAGNESIUM CHLORIDE W/CALCIUM 64MG DELAYED REL TAB PO SCH ×2 (09:16→20:20)
[2023-03-30] MEDS: METOPROLOL SUCC 50MG EXT REL TAB PO SCH ×2 (09:16→20:21)
[2023-03-30] MEDS: PANTOprazole 40 MG TAB PO SCH (09:17)
[2023-03-30] MEDS: CHOLECALCIFEROL 1,000 UNITS 25 MCG TAB PO SCH (09:17)
[2023-03-30] MEDS: amLODIPine BESYLATE 5 MG TAB PO SCH (09:17)
[2023-03-30] MEDS: lisinopril 20 MG TAB PO SCH (09:17)
[2023-03-30] MEDS: ATORVASTATIN 40 MG TAB PO SCH (09:17)
[2023-03-30] MEDS: CYANOCOBALAMIN (B-12) 500 MCG TABLET PO SCH (09:18)
--- NOTE | 2023-03-30 09:50 | Hospitalist Progress Note ---
Date of Service March 30, 2023 Assessment & Plan (1) Weakness: (2) JOLIE (acute kidney injury): (3) Hypomagnesemia: (4) Chronic diastolic CHF (congestive heart failure): (5) Hypertension: (6) Black stool: (7) Anemia: (8) Persistent atrial fibrillation: Plan 87-year-old female with symptoms of abdominal pain, generalized weakness, ambulatory dysfunction and noted on labs to have severe hypomagnesemia in the setting of chronic N/V and decreased appetite. Decreased appetite N/V Generalized weakness Per family has been happening for about a month IV antiemetics Regular diet GI consult Nutrition consult IV fluids as long as PO intake poor PT/OT- recommending rehab Hypomagnesemia Likely in setting of decreased appetite, chronic ppi use On scheduled magnesium, slow mag 64mg BID 03/29- Magnesium continues to drop in spite of scheduled po slow mag. Down from 2.0 to 1.8 today. IV Mag 2 bags given. 03/30-mag stable Consider switch to po mag-ox Continue to replete as needed COVID Per family pt tested positive a week ago on Monday, on Mar 17 Pt asymptomatic, no increased oxygen need COVID precautions, monitor Chronic Anemia Iron Deficiency Anemia appears to be chronic FOBT still positive On iron po supplementation- will hold in setting of N/V Iron level <10- Repleted with IV iron on 03/29 iron currently 152 Will continue to monitor hgb History of hypertension continue lisinopril daily Type 2 diabetes Hgba1c of 8.5 on 03/04 Not at goal for age ISS while hospitalized Urinary obstruction Bladder scan shows 350 mL urine. Patient advised by admitting provider to have intermittent catheterization however is refusing at this time. DVT prophylaxis: scds in setting of anemia Diet: Full Liquids in setting of N/V Patient is a full code. Son updated at about 12pm in pt's room on 03/30/23 Admission and Anticipated Discharge Date Admission Date: March 27, 2023 Subjective Pt seen in the AM. Denied acute concerns. Noted that her son would be by later. Later, notified that her son was asking about an update. Updated in person outside pt's room. Son stated that mom does not want to go to [facility], they are working on [facility]. Not able to care for her at home, would like her to go to rehab. Review of Systems Review of Systems: All systems reviewed & are unremarkable except as noted in Subjective Physical Exam Physical Exam: General: Alert, oriented. No acute distress Psych: Appropriate mood and affect Neuro: weakness, gait instability HEENT: NC/AT CV: RRR Resp: Breath sounds clear bilaterally, no increased effort of breathing. Abdomen: Soft, nontender, nondistended. Extremities: No edema in lower extremities bilaterally. Results & Data Results & Data Vital Signs (Past 12 Hours) Vital Signs Temp Pulse Pulse Resp BP BP Pulse Ox 03/30/23 07:15 36.5 C 91 H 18 104/45 L 96 03/30/23 03:07 37.1 C 86 18 129/65 94 03/29/23 22:25 36.6 C 90 18 107/58 L 92 03/29/23 21:57 58 L O2 Del Method 03/30/23 07:15 Room Air 03/30/23 03:07 Room Air 03/29/23 22:25 Room Air 03/29/23 21:57
[2023-03-30] MEDS ORDERED: POTASSIUM PHOS 3 MMOL/1 ML INFUSION IV STA (10:23)
[2023-03-30] MEDS ORDERED: POTASSIUM PHOSPHATE 21 MMOL in SODIUM CHLORIDE 0.9% 500 ML IV ONE (10:30)
[2023-03-30] MEDS: DOCUSATE SODIUM 100 MG CAP PO SCH (11:32)
[2023-03-30] MEDS: POLYETHYLENE (MIRALAX) 17 GM PACK PO SCH (11:33)
[2023-03-30] MEDS ORDERED: HYDROCORTISONE ACETATE 25 MG SUPP PR PRN (21:56)
[2023-03-31] MEDS: MICONAZOLE NITRATE POWDER 85 GM EXT SCH ×3 (05:57→20:42)
[2023-03-31] MEDS: lisinopril 20 MG TAB PO SCH (08:41)
[2023-03-31] MEDS: CYANOCOBALAMIN (B-12) 500 MCG TABLET PO SCH (08:41)
[2023-03-31] MEDS: amLODIPine BESYLATE 5 MG TAB PO SCH (08:41)
[2023-03-31] MEDS: CHOLECALCIFEROL 1,000 UNITS 25 MCG TAB PO SCH (08:42)
[2023-03-31] MEDS: PANTOprazole 40 MG TAB PO SCH (08:42)
[2023-03-31] MEDS: ATORVASTATIN 40 MG TAB PO SCH (08:42)
[2023-03-31] MEDS: METOPROLOL SUCC 50MG EXT REL TAB PO SCH ×2 (08:42→20:43)
[2023-03-31] MEDS: MAGNESIUM CHLORIDE W/CALCIUM 64MG DELAYED REL TAB PO SCH ×2 (08:42→20:43)
[2023-03-31] MEDS: DOCUSATE SODIUM 100 MG CAP PO SCH (08:44)
[2023-03-31] MEDS: POLYETHYLENE (MIRALAX) 17 GM PACK PO SCH (08:44)
[2023-03-31] MEDS: INSULIN ASPART PER UNIT CHARGE SC SCH ×4 (08:58→20:42)
[2023-03-31] MEDS: SODIUM CHLORIDE 0.9% 1,000 ML IV SCH ×2 (08:58→20:42)
[2023-03-31 09:18] LABS: Hematocrit (blood only) 26.2 % (37.0-47.0); Hemoglobin 8.3 g/dl (12.0-16.0); Mean Corpuscular Hemoglobin 29.3 pg (25.0-34.0); Mean Corpuscular Hgb Conc 31.7 g/dL (32.0-36.0); Mean Corpuscular Volume 92.6 fL (80.0-100.0); Mean Platelet Volume 11.5 fL (9.4-12.4); Platelet Count 230 K/uL (130-400); RDW Coefficient of Variation 15.2 % (11.5-14.5); RDW Standard Deviation 50.9 fL (36.4-46.3); Red Blood Count 2.83 M/uL (4.20-5.40); White Blood Count 6.04 K/ul (4.8-10.8)
[2023-03-31 09:57] LABS: Albumin Level 2.5 gm/dl (3.4-5.0); Bilirubin,Total 0.7 mg/dl (0.2-1.0); Calcium 7.3 mg/dl (8.6-10.3); Magnesium 1.7 mg/dl (1.7-2.4); Potassium 4.2 mmol/L (3.5-5.1)
[2023-03-31 10:06] LABS: Albumin Globulin Ratio 0.8 (0.9-2); Creatinine Clr Calc Pharmacy 47.3 ml/min; Est GFR (African American) 82.5 ml/min; Est GFR (Non-African American) 71.2 ml/min; Phosphorus 2.4 mg/dl (2.5-4.9); Total Protein 5.5 gm/dl (6.0-8.3)
--- NOTE | 2023-03-31 13:08 | Hospitalist Progress Note ---
Date of Service March 31, 2023 Assessment & Plan (1) Weakness: (2) JOLIE (acute kidney injury): (3) Hypomagnesemia: (4) Chronic diastolic CHF (congestive heart failure): (5) Hypertension: (6) Black stool: (7) Anemia: (8) Persistent atrial fibrillation: Plan 87-year-old female with symptoms of abdominal pain, generalized weakness, ambulatory dysfunction and noted on labs to have severe hypomagnesemia in the setting of chronic N/V and decreased appetite. Decreased appetite N/V Generalized weakness Per family has been happening for about a month IV antiemetics Regular diet GI consult Nutrition consult IV fluids as long as PO intake poor PT/OT- recommending rehab Hypomagnesemia Likely in setting of decreased appetite, chronic ppi use On scheduled magnesium, slow mag 64mg BID Continue to replete and monitor COVID Per family pt tested positive on Monday, on Mar 17 Pt asymptomatic, no increased oxygen need COVID precautions, monitor Chronic Anemia Iron Deficiency Anemia appears to be chronic FOBT still positive On iron po supplementation- will hold in setting of N/V Iron level <10- Repleted with IV iron on 03/29 iron currently 152 Will continue to monitor hgb History of hypertension continue lisinopril daily Type 2 diabetes Hgba1c of 8.5 on 03/04 Not at goal for age ISS while hospitalized Urinary retention Bladder scan w/350 mL urine. Patient advised by admitting provider to have intermittent catheterization however is refusing at this time. however , no hydronephrosis and no JOLIE cont. to monitor DVT prophylaxis: scds in setting of anemia Diet: easy to chew Patient is a full code. Admission and Anticipated Discharge Date Admission Date: March 27, 2023 Subjective Pt seen in follow up, currently on covid isolation She is laying in bed, feeling well, denies having any complaints no fever, chills, chest pain, shortness of breath, no abd. pain, n/v Per CM, plan to DC to [facility] once bed is available. Per son - per previous provider - Not able to care for her at home, would like her to go to rehab. Review of Systems Review of Systems: All systems reviewed & are unremarkable except as noted in Subjective Physical Exam Physical Exam: General: Alert, oriented. No acute distress Psych: Appropriate mood and affect Neuro: weakness, gait instability HEENT: NC/AT CV: RRR Resp: Breath sounds clear bilaterally, no increased effort of breathing. Abdomen: Soft, nontender, nondistended. Extremities: No edema in lower extremities bilaterally. Results & Data Results & Data Vital Signs (Past 12 Hours) Vital Signs Temp Pulse Pulse Resp BP Pulse Ox O2 Del Method 03/31/23 11:43 36.8 C 88 18 134/68 95 Room Air 03/31/23 07:02 36.7 C 87 20 111/64 93 Room Air 03/31/23 07:00 81 03/31/23 03:05 36.8 C 94 H 18 134/70 94 Room Air Laboratory Results 03/31/23 03/31/23 03/30/23 Range/Units 11:42 07:32 20:06 WBC 6.04 (4.8-10.8) K/ul RBC 2.83 L (4.20-5.40) M/uL Hgb 8.3 L (12.0-16.0) g/dl Hct 26.2 L (37.0-47.0) % MCV 92.6 (80.0-100.0) fL MCH 29.3 (25.0-34.0) pg MCHC 31.7 L (32.0-36.0) g/dL RDW Std Deviation 50.9 H (36.4-46.3) fL RDW Coeff of Jareth 15.2 H (11.5-14.5) % Plt Count 230 (130-400) K/uL MPV 11.5 (9.4-12.4) fL Sodium 141 (136-145) mmol/L Potassium 4.2 (3.5-5.1) mmol/L Chloride 115 H (98-107) mmol/L Carbon Dioxide 17 L (21-32) mmol/L Anion Gap 9 (3-11) BUN 15 (6-23) mg/dl Creatinine 0.75 (0.6-1.2) mg/dl Est Cr Clr Drug Dosing 47.3 ml/min Est GFR ( Amer) 82.5 ml/min Est GFR (Non-Af Amer) 71.2 ml/min BUN/Creatinine Ratio 20.0 (10-20) Glucose 85 (70-99(Fasting)) mg/dl POC Glucose 123 H 93 112 H (70-99) mg/dl Calcium 7.3 L (8.6-10.3) mg/dl Phosphorus 2.4 L (2.5-4.9) mg/dl Magnesium 1.7 (1.7-2.4) mg/dl Total Bilirubin 0.7 (0.2-1.0) mg/dl AST 22 (13-39) U/L ALT 11 (7-52) U/L Alkaline Phosphatase 68 (34-104) U/L Total Protein 5.5 L (6.0-8.3) gm/dl Albumin 2.5 L (3.4-5.0) gm/dl Globulin 3.0 (2.5-4.0) gm/dl Albumin/Globulin Ratio 0.8 L (0.9-2) 03/30/23 Range/Units 16:20 WBC (4.8-10.8) K/ul RBC (4.20-5.40) M/uL Hgb (12.0-16.0) g/dl Hct (37.0-47.0) % MCV (80.0-100.0) fL MCH (25.0-34.0) pg MCHC (32.0-36.0) g/dL RDW Std Deviation (36.4-46.3) fL RDW Coeff of Jareth (11.5-14.5) % Plt Count (130-400) K/uL MPV (9.4-12.4) fL Sodium (136-145) mmol/L Potassium (3.5-5.1) mmol/L Chloride (98-107) mmol/L Carbon Dioxide (21-32) mmol/L Anion Gap (3-11) BUN (6-23) mg/dl Creatinine (0.6-1.2) mg/dl Est Cr Clr Drug Dosing ml/min Est GFR ( Amer) ml/min Est GFR (Non-Af Amer) ml/min BUN/Creatinine Ratio (10-20) Glucose (70-99(Fasting)) mg/dl POC Glucose 161 H (70-99) mg/dl Calcium (8.6-10.3) mg/dl Phosphorus (2.5-4.9) mg/dl Magnesium (1.7-2.4) mg/dl Total Bilirubin (0.2-1.0) mg/dl AST (13-39) U/L ALT (7-52) U/L Alkaline Phosphatase (34-104) U/L Total Protein (6.0-8.3) gm/dl Albumin (3.4-5.0) gm/dl Globulin (2.5-4.0) gm/dl Albumin/Globulin Ratio (0.9-2) Medications Administered Current Inpatient Medications Acetaminophen (Acetaminophen 325 Mg Tab) 650 mg PO Q4H PRN PRN Reason: Pain or Fever Stop: 04/26/23 21:18 Al Hydrox/Mg Hydrox/Simethicone (Aluminum/Magnesium Susp 30 Ml Udc) 15 ml PO Q4H PRN PRN Reason: Dyspepsia Stop: 04/26/23 21:18 Amlodipine Besylate (Amlodipine Besylate 5 Mg Tab) 2.5 mg PO QAM [facility] Stop: 04/27/23 08:59 Last Admin: 03/31/23 08:41 Dose: 2.5 mg Atorvastatin Calcium (Atorvastatin 40 Mg Tab) 80 mg PO QAM [facility] Stop: 04/27/23 08:59 Last Admin: 03/31/23 08:42 Dose: 80 mg Cyanocobalamin (Cyanocobalamin (B-12) 500 Mcg Tablet) 1,000 mcg PO DAILY [facility] Stop: 04/27/23 08:59 Last Admin: 03/31/23 08:41 Dose: 1,000 mcg Dextrose (Dextrose 50% 50 Ml Syringe) 25 - 50 ml IV UD PRN; Protocol PRN Reason: Hypoglycemia Protocol Stop: 04/26/23 21:18 Docusate Sodium (Docusate Sodium 100 Mg Cap) 100 mg PO DAILY [facility] Stop: 04/27/23 08:59 Last Admin: 03/31/23 08:44 Dose: 100 mg Glucagon (Glucagon For Inj 1 Mg Vial) 1 mg SQ UD PRN; Protocol PRN Reason: Hypoglycemia Protocol Stop: 04/26/23 21:18 Glucose (Glucose 10 Tab/Tube) 4 - 8 tab PO UD PRN; Protocol PRN Reason: Hypoglycemia Treatment Stop: 04/26/23 21:18 Glucose (Glucose 40% Gel 15 Gm Tube) 15 - 30 gm PO UD PRN; Protocol PRN Reason: Hypoglycemia Protocol Stop: 04/26/23 21:18 Hydrocortisone (Hydrocortisone Acetate 25 Mg Supp) 25 mg [place] BID PRN PRN Reason: Hemorrhoids Stop: 04/06/23 21:55 Sodium Chloride (Nss) 1,000 mls @ 80 mls/hr IV .[id number] [facility] Stop: 04/28/23 14:29 Last Admin: 03/31/23 08:58 Dose: 80 mls/hr Insulin Aspart (Insulin Aspart Per Unit Charge) 0 units SC ACHS [facility] Stop: 04/26/23 21:18 Last Admin: 03/31/23 12:16 Dose: Not Given Lisinopril (Lisinopril 20 Mg Tab) 20 mg PO DAILY [facility] Stop: 04/27/23 08:59 Last Admin: 03/31/23 08:41 Dose: 20 mg Magnesium Chloride (Magnesium Chloride W/Calcium 64mg Delayed Rel Tab) 64 mg PO BID [facility] Stop: 04/27/23 10:44 Last Admin: 03/31/23 08:42 Dose: 64 mg Magnesium Hydroxide (Magnesium Hydroxide Susp 30 Ml Udc) 30 ml PO Q12H PRN PRN Reason: Constipation Stop: 04/26/23 21:18 Metoclopramide HCl (Metoclopramide Hcl Inj 5 Mg/Ml 2 Ml Vial) 5 mg IV Q6H PRN PRN Reason: nausea/vomitting not relieved by zofran Stop: 04/27/23 11:59 Metoprolol Succinate (Metoprolol Succ 50mg Ext Rel Tab) 50 mg PO QPM [facility] Stop: 04/26/23 21:34 Last Admin: 03/30/23 20:21 Dose: 50 mg Metoprolol Succinate (Metoprolol Succ 50mg Ext Rel Tab) 100 mg PO QAM [facility] Stop: 04/27/23 08:59 Last Admin: 03/31/23 08:42 Dose: 100 mg Miconazole Nitrate (Miconazole Nitrate Powder 85 Gm) 1 appln EXT BID [facility] Stop: 04/29/23 21:59 Last Admin: 03/31/23 08:43 Dose: 1 appln Miscellaneous (Carbohydrates For Hypoglycemia ) 15 - 30 gm PO UD PRN PRN Reason: Hypoglycemia Protocol Stop: 04/26/23 21:18 Ondansetron HCl (Ondansetron Inj 2 Mg/Ml 2 Ml Vial) 4 mg IV Q6H PRN PRN Reason: Nausea Stop: 04/26/23 21:18 Pantoprazole Sodium (Pantoprazole 40 Mg Tab) 40 mg PO DAILY [facility] Stop: 04/27/23 08:59 Last Admin: 03/31/23 08:42 Dose: 40 mg Polyethylene Glycol (Polyethylene (Miralax) 17 Gm Pack) 17 gm PO DAILY PRN PRN Reason: Constipation Stop: 04/26/23 21:18 Last Admin: 03/28/23 08:27 Dose: 17 gm Polyethylene Glycol (Polyethylene (Miralax) 17 Gm Pack) 17 gm PO DAILY [facility] Stop: 04/27/23 08:59 Last Admin: 03/31/23 08:44 Dose: 17 gm Vitamin D (Cholecalciferol 1,000 Units 25 Mcg Tab) 1,000 units PO DAILY [facility] Stop: 04/27/23 08:59 Last Admin: 03/31/23 08:42 Dose: 1,000 units
[2023-04-01] MEDS ORDERED: hydrALAZINE HCL 20 MG/ML VIAL IV ONE (05:10)
[2023-04-01 07:50] LABS: Hematocrit (blood only) 27.8 % (37.0-47.0); Hemoglobin 8.6 g/dl (12.0-16.0); Mean Corpuscular Hemoglobin 29.3 pg (25.0-34.0); Mean Corpuscular Hgb Conc 30.9 g/dL (32.0-36.0); Mean Corpuscular Volume 94.6 fL (80.0-100.0); Mean Platelet Volume 10.5 fL (9.4-12.4); Platelet Count 271 K/uL (130-400); RDW Coefficient of Variation 15.5 % (11.5-14.5); RDW Standard Deviation 53.8 fL (36.4-46.3); Red Blood Count 2.94 M/uL (4.20-5.40); White Blood Count 6.11 K/ul (4.8-10.8)
[2023-04-01 08:08] LABS: Albumin Globulin Ratio 0.8 (0.9-2); Albumin Level 2.5 gm/dl (3.4-5.0); BUN Creatinine Ratio 17.4 (10-20); Bilirubin,Total 0.8 mg/dl (0.2-1.0); Creatinine Clr Calc Pharmacy 51.4 ml/min; Est GFR (African American) 90.1 ml/min; Est GFR (Non-African American) 77.7 ml/min; Globulin 3.2 gm/dl (2.5-4.0); Magnesium 1.4 mg/dl (1.7-2.4); Phosphorus 1.9 mg/dl (2.5-4.9); Potassium 4.1 mmol/L (3.5-5.1); Total Protein 5.7 gm/dl (6.0-8.3)
[2023-04-01] MEDS: SODIUM CHLORIDE 0.9% 1,000 ML IV SCH ×2 (08:35→16:47)
[2023-04-01] MEDS: MAGNESIUM CHLORIDE W/CALCIUM 64MG DELAYED REL TAB PO SCH ×2 (08:36→21:40)
[2023-04-01] MEDS: ATORVASTATIN 40 MG TAB PO SCH (08:36)
[2023-04-01] MEDS: CHOLECALCIFEROL 1,000 UNITS 25 MCG TAB PO SCH (08:36)
[2023-04-01] MEDS: amLODIPine BESYLATE 5 MG TAB PO SCH (08:36)
[2023-04-01] MEDS: lisinopril 20 MG TAB PO SCH (08:36)
[2023-04-01] MEDS: METOPROLOL SUCC 50MG EXT REL TAB PO SCH ×2 (08:37→21:41)
[2023-04-01] MEDS: CYANOCOBALAMIN (B-12) 500 MCG TABLET PO SCH (08:37)
[2023-04-01] MEDS: PANTOprazole 40 MG TAB PO SCH (08:37)
[2023-04-01] MEDS: POLYETHYLENE (MIRALAX) 17 GM PACK PO SCH (08:49)
[2023-04-01] MEDS: DOCUSATE SODIUM 100 MG CAP PO SCH (08:49)
[2023-04-01] MEDS: INSULIN ASPART PER UNIT CHARGE SC SCH ×4 (09:27→21:55)
--- NOTE | 2023-04-01 11:24 | Hospitalist Progress Note ---
Date of Service April 01, 2023 Assessment & Plan (1) Weakness: (2) JOLIE (acute kidney injury): (3) Hypomagnesemia: (4) Chronic diastolic CHF (congestive heart failure): (5) Hypertension: (6) Black stool: (7) Anemia: (8) Persistent atrial fibrillation: Plan 87-year-old female with symptoms of abdominal pain, generalized weakness, ambulatory dysfunction and noted on labs to have severe hypomagnesemia in the setting of chronic N/V and decreased appetite. Decreased appetite N/V Generalized weakness Per family has been happening for about a month IV antiemetics Regular diet GI consult Nutrition consult IV fluids as long as PO intake poor PT/OT- recommending rehab Hypomagnesemia Likely in setting of decreased appetite, chronic ppi use On scheduled magnesium, slow mag 64mg BID Continue to replete and monitor COVID Per family pt tested positive on Monday, on Mar 17 Pt asymptomatic, no increased oxygen need COVID precautions, monitor Chronic Anemia Iron Deficiency Anemia appears to be chronic FOBT still positive On iron po supplementation- will hold in setting of N/V Iron level <10- Repleted with IV iron on 03/29 iron currently 152 Will continue to monitor hgb History of hypertension continue lisinopril daily Type 2 diabetes Hgba1c of 8.5 on 03/04 Not at goal for age ISS while hospitalized Urinary retention Bladder scan w/350 mL urine. Patient advised by admitting provider to have intermittent catheterization however is refusing at this time. however , no hydronephrosis and no JOLIE cont. to monitor DVT prophylaxis: scds in setting of anemia Diet: easy to chew Patient is a full code. Admission and Anticipated Discharge Date Admission Date: March 27, 2023 Subjective Pt seen in follow up, currently on covid isolation She is sitting in the chair, feeling well, denies having any complaints no fever, chills, chest pain, shortness of breath, no abd. pain, n/v Per CM, plan to DC to [facility] once bed is available. Per son - per previous provider - Not able to care for her at home Review of Systems Review of Systems: All systems reviewed & are unremarkable except as noted in Subjective Physical Exam Physical Exam: General: Alert, oriented. No acute distress Psych: Appropriate mood and affect Neuro: weakness, gait instability HEENT: NC/AT CV: RRR Resp: Breath sounds clear bilaterally, no increased effort of breathing. Abdomen: Soft, nontender, nondistended. Extremities: No edema in lower extremities bilaterally. Results & Data Results & Data Vital Signs (Past 12 Hours) Vital Signs Temp Pulse Resp BP BP Pulse Ox O2 Del Method 04/01/23 07:41 36.4 C L 92 H 16 148/66 H 95 Room Air 04/01/23 04:02 36.7 C 88 16 143/69 H 94 Room Air Laboratory Results 04/01/23 04/01/23 03/31/23 Range/Units 08:16 07:21 20:33 WBC 6.11 (4.8-10.8) K/ul RBC 2.94 L (4.20-5.40) M/uL Hgb 8.6 L (12.0-16.0) g/dl Hct 27.8 L (37.0-47.0) % MCV 94.6 (80.0-100.0) fL MCH 29.3 (25.0-34.0) pg MCHC 30.9 L (32.0-36.0) g/dL RDW Std Deviation 53.8 H (36.4-46.3) fL RDW Coeff of Jareth 15.5 H (11.5-14.5) % Plt Count 271 (130-400) K/uL MPV 10.5 (9.4-12.4) fL Sodium 142 (136-145) mmol/L Potassium 4.1 (3.5-5.1) mmol/L Chloride 114 H (98-107) mmol/L Carbon Dioxide 18 L (21-32) mmol/L Anion Gap 10 (3-11) BUN 12 (6-23) mg/dl Creatinine 0.69 (0.6-1.2) mg/dl Est Cr Clr Drug Dosing 51.4 ml/min Est GFR ( Amer) 90.1 ml/min Est GFR (Non-Af Amer) 77.7 ml/min BUN/Creatinine Ratio 17.4 (10-20) Glucose 114 H (70-99(Fasting)) mg/dl POC Glucose 110 H 127 H (70-99) mg/dl Calcium 8.0 L (8.6-10.3) mg/dl Phosphorus 1.9 L (2.5-4.9) mg/dl Magnesium 1.4 L (1.7-2.4) mg/dl Total Bilirubin 0.8 (0.2-1.0) mg/dl AST 24 (13-39) U/L ALT 14 (7-52) U/L Alkaline Phosphatase 76 (34-104) U/L Total Protein 5.7 L (6.0-8.3) gm/dl Albumin 2.5 L (3.4-5.0) gm/dl Globulin 3.2 (2.5-4.0) gm/dl Albumin/Globulin Ratio 0.8 L (0.9-2) 03/31/23 03/31/23 Range/Units 16:30 11:42 WBC (4.8-10.8) K/ul RBC (4.20-5.40) M/uL Hgb (12.0-16.0) g/dl Hct (37.0-47.0) % MCV (80.0-100.0) fL MCH (25.0-34.0) pg MCHC (32.0-36.0) g/dL RDW Std Deviation (36.4-46.3) fL RDW Coeff of Jareth (11.5-14.5) % Plt Count (130-400) K/uL MPV (9.4-12.4) fL Sodium (136-145) mmol/L Potassium (3.5-5.1) mmol/L Chloride (98-107) mmol/L Carbon Dioxide (21-32) mmol/L Anion Gap (3-11) BUN (6-23) mg/dl Creatinine (0.6-1.2) mg/dl Est Cr Clr Drug Dosing ml/min Est GFR ( Amer) ml/min Est GFR (Non-Af Amer) ml/min BUN/Creatinine Ratio (10-20) Glucose (70-99(Fasting)) mg/dl POC Glucose 115 H 123 H (70-99) mg/dl Calcium (8.6-10.3) mg/dl Phosphorus (2.5-4.9) mg/dl Magnesium (1.7-2.4) mg/dl Total Bilirubin (0.2-1.0) mg/dl AST (13-39) U/L ALT (7-52) U/L Alkaline Phosphatase (34-104) U/L Total Protein (6.0-8.3) gm/dl Albumin (3.4-5.0) gm/dl Globulin (2.5-4.0) gm/dl Albumin/Globulin Ratio (0.9-2) Medications Administered Current Inpatient Medications Acetaminophen (Acetaminophen 325 Mg Tab) 650 mg PO Q4H PRN PRN Reason: Pain or Fever Stop: 04/26/23 21:18 Al Hydrox/Mg Hydrox/Simethicone (Aluminum/Magnesium Susp 30 Ml Udc) 15 ml PO Q4H PRN PRN Reason: Dyspepsia Stop: 04/26/23 21:18 Amlodipine Besylate (Amlodipine Besylate 5 Mg Tab) 2.5 mg PO QAM [facility] Stop: 04/27/23 08:59 Last Admin: 04/01/23 08:36 Dose: 2.5 mg Atorvastatin Calcium (Atorvastatin 40 Mg Tab) 80 mg PO QAM [facility] Stop: 04/27/23 08:59 Last Admin: 04/01/23 08:36 Dose: 80 mg Cyanocobalamin (Cyanocobalamin (B-12) 500 Mcg Tablet) 1,000 mcg PO DAILY [facility] Stop: 04/27/23 08:59 Last Admin: 04/01/23 08:37 Dose: 1,000 mcg Dextrose (Dextrose 50% 50 Ml Syringe) 25 - 50 ml IV UD PRN; Protocol PRN Reason: Hypoglycemia Protocol Stop: 04/26/23 21:18 Docusate Sodium (Docusate Sodium 100 Mg Cap) 100 mg PO DAILY [facility] Stop: 04/27/23 08:59 Last Admin: 04/01/23 08:49 Dose: 100 mg Glucagon (Glucagon For Inj 1 Mg Vial) 1 mg SQ UD PRN; Protocol PRN Reason: Hypoglycemia Protocol Stop: 04/26/23 21:18 Glucose (Glucose 10 Tab/Tube) 4 - 8 tab PO UD PRN; Protocol PRN Reason: Hypoglycemia Treatment Stop: 04/26/23 21:18 Glucose (Glucose 40% Gel 15 Gm Tube) 15 - 30 gm PO UD PRN; Protocol PRN Reason: Hypoglycemia Protocol Stop: 04/26/23 21:18 Hydrocortisone (Hydrocortisone Acetate 25 Mg Supp) 25 mg [place] BID PRN PRN Reason: Hemorrhoids Stop: 04/06/23 21:55 Sodium Chloride (Nss) 1,000 mls @ 80 mls/hr IV .[id number] [facility] Stop: 04/28/23 14:29 Last Admin: 04/01/23 08:35 Dose: 80 mls/hr Magnesium Sulfate/Dextrose (Magnesium Sulfate / D5w) 1 gm in 100 mls @ 50 mls/hr IV Q2H [facility] Stop: 04/01/23 15:29 Insulin Aspart (Insulin Aspart Per Unit Charge) 0 units SC ACHS [facility] Stop: 04/26/23 21:18 Last Admin: 04/01/23 09:27 Dose: Not Given Lisinopril (Lisinopril 20 Mg Tab) 20 mg PO DAILY [facility] Stop: 04/27/23 08:59 Last Admin: 04/01/23 08:36 Dose: 20 mg Magnesium Chloride (Magnesium Chloride W/Calcium 64mg Delayed Rel Tab) 64 mg PO BID [facility] Stop: 04/27/23 10:44 Last Admin: 04/01/23 08:36 Dose: 64 mg Magnesium Hydroxide (Magnesium Hydroxide Susp 30 Ml Udc) 30 ml PO Q12H PRN PRN Reason: Constipation Stop: 04/26/23 21:18 Metoclopramide HCl (Metoclopramide Hcl Inj 5 Mg/Ml 2 Ml Vial) 5 mg IV Q6H PRN PRN Reason: nausea/vomitting not relieved by zofran Stop: 04/27/23 11:59 Metoprolol Succinate (Metoprolol Succ 50mg Ext Rel Tab) 50 mg PO QPM [facility] Stop: 04/26/23 21:34 Last Admin: 03/31/23 20:43 Dose: 50 mg Metoprolol Succinate (Metoprolol Succ 50mg Ext Rel Tab) 100 mg PO QAM [facility] Stop: 04/27/23 08:59 Last Admin: 04/01/23 08:37 Dose: 100 mg Miconazole Nitrate (Miconazole Nitrate Powder 85 Gm) 1 appln EXT BID [facility] Stop: 04/29/23 21:59 Last Admin: 03/31/23 20:42 Dose: 1 appln Miscellaneous (Carbohydrates For Hypoglycemia ) 15 - 30 gm PO UD PRN PRN Reason: Hypoglycemia Protocol Stop: 04/26/23 21:18 Ondansetron HCl (Ondansetron Inj 2 Mg/Ml 2 Ml Vial) 4 mg IV Q6H PRN PRN Reason: Nausea Stop: 04/26/23 21:18 Pantoprazole Sodium (Pantoprazole 40 Mg Tab) 40 mg PO DAILY [facility] Stop: 04/27/23 08:59 Last Admin: 04/01/23 08:37 Dose: 40 mg Polyethylene Glycol (Polyethylene (Miralax) 17 Gm Pack) 17 gm PO DAILY PRN PRN Reason: Constipation Stop: 04/26/23 21:18 Last Admin: 03/28/23 08:27 Dose: 17 gm Polyethylene Glycol (Polyethylene (Miralax) 17 Gm Pack) 17 gm PO DAILY [facility] Stop: 04/27/23 08:59 Last Admin: 04/01/23 08:49 Dose: 17 gm Vitamin D (Cholecalciferol 1,000 Units 25 Mcg Tab) 1,000 units PO DAILY [facility] Stop: 04/27/23 08:59 Last Admin: 04/01/23 08:36 Dose: 1,000 units
[2023-04-01] MEDS: MAGNESIUM SULFATE / D5W 1 GM/100 ML BAG IV SCH ×2 (12:21→14:33)
[2023-04-01] MEDS: MICONAZOLE NITRATE POWDER 85 GM EXT SCH ×2 (14:27→21:43)
[2023-04-01] MEDS: LORazepam 0.5 MG TAB PO PRN (22:02)
[2023-04-02] MEDS: SODIUM CHLORIDE 0.9% 1,000 ML IV SCH ×2 (05:37→18:45)
[2023-04-02] MEDS: lisinopril 20 MG TAB PO SCH (07:32)
[2023-04-02] MEDS: amLODIPine BESYLATE 5 MG TAB PO SCH (07:32)
[2023-04-02] MEDS: CYANOCOBALAMIN (B-12) 500 MCG TABLET PO SCH (07:32)
[2023-04-02] MEDS: METOPROLOL SUCC 50MG EXT REL TAB PO SCH ×2 (07:32→20:37)
[2023-04-02] MEDS: ATORVASTATIN 40 MG TAB PO SCH (07:33)
[2023-04-02] MEDS: CHOLECALCIFEROL 1,000 UNITS 25 MCG TAB PO SCH (07:33)
[2023-04-02] MEDS: PANTOprazole 40 MG TAB PO SCH (07:33)
[2023-04-02] MEDS: MAGNESIUM CHLORIDE W/CALCIUM 64MG DELAYED REL TAB PO SCH ×2 (07:33→20:37)
[2023-04-02] MEDS: DOCUSATE SODIUM 100 MG CAP PO SCH (07:34)
[2023-04-02] MEDS: POLYETHYLENE (MIRALAX) 17 GM PACK PO SCH (07:34)
--- NOTE | 2023-04-02 07:36 | Hospitalist Progress Note ---
Date of Service April 02, 2023 Assessment & Plan (1) Weakness: (2) JOLIE (acute kidney injury): (3) Hypomagnesemia: (4) Chronic diastolic CHF (congestive heart failure): (5) Hypertension: (6) Black stool: (7) Anemia: (8) Persistent atrial fibrillation: Plan 87-year-old female with symptoms of abdominal pain, generalized weakness, ambulatory dysfunction and noted on labs to have severe hypomagnesemia in the setting of chronic N/V and decreased appetite. Decreased appetite N/V Generalized weakness Per family has been happening for about a month IV antiemetics Regular diet GI consult Nutrition consult IV fluids as long as PO intake poor PT/OT- recommending rehab Nausea resolved, pt reports eating. Hypomagnesemia Likely in setting of decreased appetite, chronic ppi use On scheduled magnesium, slow mag 64mg BID Continue to replete and monitor COVID Per family pt tested positive on Monday, on Mar 17 Pt asymptomatic, no increased oxygen need COVID precautions, monitor Chronic Anemia Iron Deficiency Anemia appears to be chronic FOBT still positive On iron po supplementation- will hold in setting of N/V Iron level <10- Repleted with IV iron on 03/29 iron currently 152 Will continue to monitor hgb History of hypertension continue lisinopril daily Type 2 diabetes Hgba1c of 8.5 on 03/04 Not at goal for age ISS while hospitalized Urinary retention Bladder scan w/350 mL urine. Patient advised by admitting provider to have intermittent catheterization however is refusing at this time. however , no hydronephrosis and no JOLIE cont. to monitor DVT prophylaxis: scds in setting of anemia Diet: easy to chew Patient is a full code. Admission and Anticipated Discharge Date Admission Date: March 27, 2023 Subjective Pt seen in follow up, currently on covid isolation She is sitting in the chair, feeling well, denies having any complaints. reports that she is eating but she has never been a big eater. no fever, chills, chest pain, shortness of breath, no abd. pain, n/v Per CM, plan to DC to [facility] once bed is available. Per son - per previous provider - Not able to care for her at home Review of Systems Review of Systems: All systems reviewed & are unremarkable except as noted in Subjective Physical Exam Physical Exam: General: Alert, oriented. No acute distress Psych: Appropriate mood and affect Neuro: weakness, gait instability HEENT: NC/AT CV: RRR Resp: Breath sounds clear bilaterally, no increased effort of breathing. Abdomen: Soft, nontender, nondistended. Extremities: No edema in lower extremities bilaterally. Results & Data Results & Data Vital Signs (Past 12 Hours) Vital Signs Temp Pulse Pulse Resp BP BP Pulse Ox 04/02/23 07:30 36.3 C L 102 H 17 149/65 H 95 04/02/23 01:56 36.3 C L 89 18 134/62 96 04/01/23 23:34 85 04/01/23 22:46 36.4 C L 83 16 124/69 97 04/01/23 19:55 36.4 C L 90 16 136/59 L 99 O2 Del Method 04/02/23 07:30 Room Air 04/02/23 01:56 Room Air 04/01/23 23:34 04/01/23 22:46 Room Air 04/01/23 19:55 Room Air Laboratory Results 04/02/23 04/02/23 04/02/23 Range/Units 12:00 08:20 07:09 Sodium 141 (136-145) mmol/L Potassium 3.6 (3.5-5.1) mmol/L Chloride 115 H (98-107) mmol/L Carbon Dioxide 19 L (21-32) mmol/L Anion Gap 7 (3-11) BUN 9 (6-23) mg/dl Creatinine 0.66 (0.6-1.2) mg/dl Est Cr Clr Drug Dosing 52.7 ml/min Est GFR ( Amer) 91.4 ml/min Est GFR (Non-Af Amer) 78.9 ml/min BUN/Creatinine Ratio 13.6 (10-20) Glucose 103 H (70-99(Fasting)) mg/dl POC Glucose 128 H 122 H (70-99) mg/dl Calcium 7.8 L (8.6-10.3) mg/dl Phosphorus 1.7 L (2.5-4.9) mg/dl Magnesium 1.6 L (1.7-2.4) mg/dl 04/01/23 04/01/23 Range/Units 19:54 17:16 Sodium (136-145) mmol/L Potassium (3.5-5.1) mmol/L Chloride (98-107) mmol/L Carbon Dioxide (21-32) mmol/L Anion Gap (3-11) BUN (6-23) mg/dl Creatinine (0.6-1.2) mg/dl Est Cr Clr Drug Dosing ml/min Est GFR ( Amer) ml/min Est GFR (Non-Af Amer) ml/min BUN/Creatinine Ratio (10-20) Glucose (70-99(Fasting)) mg/dl POC Glucose 176 H 181 H (70-99) mg/dl Calcium (8.6-10.3) mg/dl Phosphorus (2.5-4.9) mg/dl Magnesium (1.7-2.4) mg/dl Medications Administered Current Inpatient Medications Acetaminophen (Acetaminophen 325 Mg Tab) 650 mg PO Q4H PRN PRN Reason: Pain or Fever Stop: 04/26/23 21:18 Al Hydrox/Mg Hydrox/Simethicone (Aluminum/Magnesium Susp 30 Ml Udc) 15 ml PO Q4H PRN PRN Reason: Dyspepsia Stop: 04/26/23 21:18 Amlodipine Besylate (Amlodipine Besylate 5 Mg Tab) 2.5 mg PO QAM [facility] Stop: 04/27/23 08:59 Last Admin: 04/02/23 07:32 Dose: 2.5 mg Atorvastatin Calcium (Atorvastatin 40 Mg Tab) 80 mg PO QAM [facility] Stop: 04/27/23 08:59 Last Admin: 04/02/23 07:33 Dose: 80 mg Cyanocobalamin (Cyanocobalamin (B-12) 500 Mcg Tablet) 1,000 mcg PO DAILY [facility] Stop: 04/27/23 08:59 Last Admin: 04/02/23 07:32 Dose: 1,000 mcg Dextrose (Dextrose 50% 50 Ml Syringe) 25 - 50 ml IV UD PRN; Protocol PRN Reason: Hypoglycemia Protocol Stop: 04/26/23 21:18 Docusate Sodium (Docusate Sodium 100 Mg Cap) 100 mg PO DAILY [facility] Stop: 04/27/23 08:59 Last Admin: 04/02/23 07:34 Dose: Not Given Glucagon (Glucagon For Inj 1 Mg Vial) 1 mg SQ UD PRN; Protocol PRN Reason: Hypoglycemia Protocol Stop: 04/26/23 21:18 Glucose (Glucose 10 Tab/Tube) 4 - 8 tab PO UD PRN; Protocol PRN Reason: Hypoglycemia Treatment Stop: 04/26/23 21:18 Glucose (Glucose 40% Gel 15 Gm Tube) 15 - 30 gm PO UD PRN; Protocol PRN Reason: Hypoglycemia Protocol Stop: 04/26/23 21:18 Hydrocortisone (Hydrocortisone Acetate 25 Mg Supp) 25 mg ME BID PRN PRN Reason: Hemorrhoids Stop: 04/06/23 21:55 Sodium Chloride (Nss) 1,000 mls @ 80 mls/hr IV .[id number] [facility] Stop: 04/28/23 14:29 Last Admin: 04/02/23 05:37 Dose: 80 mls/hr Insulin Aspart (Insulin Aspart Per Unit Charge) 0 units SC ACHS [facility] Stop: 04/26/23 21:18 Last Admin: 04/01/23 21:55 Dose: 1 units Lisinopril (Lisinopril 20 Mg Tab) 20 mg PO DAILY [facility] Stop: 04/27/23 08:59 Last Admin: 04/02/23 07:32 Dose: 20 mg Lorazepam (Lorazepam 0.5 Mg Tab) 0.5 mg PO HS PRN PRN Reason: Anxiety/Insomnia Stop: 05/01/23 21:48 Last Admin: 04/01/23 22:02 Dose: 0.5 mg Magnesium Chloride (Magnesium Chloride W/Calcium 64mg Delayed Rel Tab) 64 mg PO BID [facility] Stop: 04/27/23 10:44 Last Admin: 04/02/23 07:33 Dose: 64 mg Magnesium Hydroxide (Magnesium Hydroxide Susp 30 Ml Udc) 30 ml PO Q12H PRN PRN Reason: Constipation Stop: 04/26/23 21:18 Metoclopramide HCl (Metoclopramide Hcl Inj 5 Mg/Ml 2 Ml Vial) 5 mg IV Q6H PRN PRN Reason: nausea/vomitting not relieved by zofran Stop: 04/27/23 11:59 Metoprolol Succinate (Metoprolol Succ 50mg Ext Rel Tab) 50 mg PO QPM [facility] Stop: 04/26/23 21:34 Last Admin: 04/01/23 21:41 Dose: 50 mg Metoprolol Succinate (Metoprolol Succ 50mg Ext Rel Tab) 100 mg PO QAM [facility] Stop: 04/27/23 08:59 Last Admin: 04/02/23 07:32 Dose: 100 mg Miconazole Nitrate (Miconazole Nitrate Powder 85 Gm) 1 appln EXT BID [facility] Stop: 04/29/23 21:59 Last Admin: 04/01/23 21:43 Dose: 1 appln Miscellaneous (Carbohydrates For Hypoglycemia ) 15 - 30 gm PO UD PRN PRN Reason: Hypoglycemia Protocol Stop: 04/26/23 21:18 Ondansetron HCl (Ondansetron Inj 2 Mg/Ml 2 Ml Vial) 4 mg IV Q6H PRN PRN Reason: Nausea Stop: 04/26/23 21:18 Pantoprazole Sodium (Pantoprazole 40 Mg Tab) 40 mg PO DAILY [facility] Stop: 04/27/23 08:59 Last Admin: 04/02/23 07:33 Dose: 40 mg Polyethylene Glycol (Polyethylene (Miralax) 17 Gm Pack) 17 gm PO DAILY PRN PRN Reason: Constipation Stop: 04/26/23 21:18 Last Admin: 03/28/23 08:27 Dose: 17 gm Polyethylene Glycol (Polyethylene (Miralax) 17 Gm Pack) 17 gm PO DAILY [facility] Stop: 04/27/23 08:59 Last Admin: 04/02/23 07:34 Dose: Not Given Vitamin D (Cholecalciferol 1,000 Units 25 Mcg Tab) 1,000 units PO DAILY [facility] Stop: 04/27/23 08:59 Last Admin: 04/02/23 07:33 Dose: 1,000 units
[2023-04-02 08:01] LABS: BUN Creatinine Ratio 13.6 (10-20); Calcium 7.8 mg/dl (8.6-10.3); Creatinine Clr Calc Pharmacy 52.7 ml/min; Est GFR (African American) 91.4 ml/min; Est GFR (Non-African American) 78.9 ml/min; Magnesium 1.6 mg/dl (1.7-2.4); Phosphorus 1.7 mg/dl (2.5-4.9); Potassium 3.6 mmol/L (3.5-5.1)
[2023-04-02] MEDS ORDERED: MAGNESIUM SULFATE / D5W 1 GM/100 ML BAG IV ONE (09:46)
[2023-04-02] MEDS ORDERED: POTASSIUM PHOS 3 MMOL/1 ML INFUSION IV STA (09:46)
[2023-04-02] MEDS ORDERED: POTASSIUM PHOSPHATE 6 MMOL in SODIUM CHLORIDE 0.9% 250 ML IV ONE (10:00)
[2023-04-02] MEDS: INSULIN ASPART PER UNIT CHARGE SC SCH ×4 (10:54→20:33)
[2023-04-02] MEDS: POT PHOSPHATE MONOBASIC W/ SOD TAB PO SCH ×3 (11:13→20:37)
[2023-04-02] MEDS: MICONAZOLE NITRATE POWDER 85 GM EXT SCH ×2 (12:18→20:40)
[2023-04-02] MEDS: LORazepam 0.5 MG TAB PO PRN (20:42)
[2023-04-03] MEDS: SODIUM CHLORIDE 0.9% 1,000 ML IV SCH ×2 (06:23→17:55)
[2023-04-03] MEDS: POT PHOSPHATE MONOBASIC W/ SOD TAB PO SCH ×4 (07:49→21:27)
[2023-04-03] MEDS: lisinopril 20 MG TAB PO SCH (07:49)
[2023-04-03] MEDS: PANTOprazole 40 MG TAB PO SCH (07:49)
[2023-04-03] MEDS: MICONAZOLE NITRATE POWDER 85 GM EXT SCH ×2 (07:49→21:29)
[2023-04-03] MEDS: DOCUSATE SODIUM 100 MG CAP PO SCH (07:49)
[2023-04-03] MEDS: MAGNESIUM CHLORIDE W/CALCIUM 64MG DELAYED REL TAB PO SCH ×2 (07:49→21:28)
[2023-04-03] MEDS: amLODIPine BESYLATE 5 MG TAB PO SCH (07:50)
[2023-04-03] MEDS: CYANOCOBALAMIN (B-12) 500 MCG TABLET PO SCH (07:50)
[2023-04-03] MEDS: POLYETHYLENE (MIRALAX) 17 GM PACK PO SCH (07:50)
[2023-04-03] MEDS: ATORVASTATIN 40 MG TAB PO SCH (07:50)
[2023-04-03] MEDS: CHOLECALCIFEROL 1,000 UNITS 25 MCG TAB PO SCH (07:50)
[2023-04-03] MEDS: METOPROLOL SUCC 50MG EXT REL TAB PO SCH ×2 (07:50→21:27)
[2023-04-03 08:17] LABS: BUN Creatinine Ratio 10.5 (10-20); Calcium 7.9 mg/dl (8.6-10.3); Est GFR (African American) 81.2 ml/min; Magnesium 1.5 mg/dl (1.7-2.4); Potassium 3.5 mmol/L (3.5-5.1)
[2023-04-03] MEDS ORDERED: POTASSIUM CHLORIDE PWD 20 MEQ PACK PO ONE (08:32)
[2023-04-03] MEDS: INSULIN ASPART PER UNIT CHARGE SC SCH ×4 (09:03→21:01)
[2023-04-03] MEDS: MAGNESIUM SULFATE / D5W 1 GM/100 ML BAG IV SCH ×2 (09:14→11:23)
--- NOTE | 2023-04-03 16:04 | Hospitalist Progress Note ---
Date of Service April 03, 2023 Assessment & Plan (1) Weakness: (2) JOLIE (acute kidney injury): (3) Hypomagnesemia: (4) Chronic diastolic CHF (congestive heart failure): (5) Hypertension: (6) Black stool: (7) Anemia: (8) Persistent atrial fibrillation: Plan 87-year-old female with symptoms of abdominal pain, generalized weakness, ambulatory dysfunction and noted on labs to have severe hypomagnesemia in the setting of chronic N/V and decreased appetite. Decreased appetite N/V Generalized weakness Per family has been happening for about a month IV antiemetics Regular diet GI consult Nutrition consult IV fluids as long as PO intake poor PT/OT- recommending rehab Nausea resolved, pt reports eating. Boost also ordered. Hypomagnesemia Likely in setting of decreased appetite, chronic ppi use On scheduled magnesium, slow mag 64mg BID Continue to replete and monitor COVID Per family pt tested positive on Monday, on Mar 17 Pt asymptomatic, no increased oxygen need COVID precautions, monitor Chronic Anemia Iron Deficiency Anemia appears to be chronic FOBT still positive On iron po supplementation- will hold in setting of N/V Iron level <10- Repleted with IV iron on 03/29 iron currently 152 Will continue to monitor hgb History of hypertension continue lisinopril daily Type 2 diabetes Hgba1c of 8.5 on 03/04 Not at goal for age ISS while hospitalized Urinary retention Bladder scan w/350 mL urine. Patient advised by admitting provider to have intermittent catheterization tiffany harrington is refusing at this time. however , no hydronephrosis and no JOLIE cont. to monitor DVT prophylaxis: scds in setting of anemia Diet: easy to chew Patient is a full code. Admission and Anticipated Discharge Date Admission Date: March 27, 2023 Subjective Pt seen in follow up, currently on covid isolation She is sitting in the chair, feeling well, denies having any complaints. reports that she is eating but she has never been a big eater. Boost ordered. no fever, chills, chest pain, shortness of breath, no abd. pain, n/v Per CM, plan to DC to [facility]. Per son - per previous provider - Not able to care for her at home Review of Systems Review of Systems: All systems reviewed & are unremarkable except as noted in Subjective Physical Exam Physical Exam: General: Alert, oriented. No acute distress Psych: Appropriate mood and affect Neuro: weakness, gait instability HEENT: NC/AT CV: RRR Resp: Breath sounds clear bilaterally, no increased effort of breathing. Abdomen: Soft, nontender, nondistended. Extremities: No edema in lower extremities bilaterally. Results & Data Results & Data Vital Signs (Past 12 Hours) Vital Signs Temp Pulse Resp BP BP Pulse Ox O2 Del Method 04/03/23 12:30 36.3 C L 84 16 123/64 98 Room Air 04/03/23 07:26 36.5 C 83 18 152/68 H 96 Room Air Laboratory Results 04/03/23 04/03/23 04/03/23 Range/Units 11:52 07:31 07:29 Sodium 141 (136-145) mmol/L Potassium 3.5 (3.5-5.1) mmol/L Chloride 114 H (98-107) mmol/L Carbon Dioxide 20 L (21-32) mmol/L Anion Gap 7 (3-11) BUN 8 (6-23) mg/dl Creatinine 0.76 (0.6-1.2) mg/dl Est Cr Clr Drug Dosing 46.0 ml/min Est GFR ( Amer) 81.2 ml/min Est GFR (Non-Af Amer) 70.0 ml/min BUN/Creatinine Ratio 10.5 (10-20) Glucose 118 H (70-99(Fasting)) mg/dl POC Glucose 166 H 116 H (70-99) mg/dl Calcium 7.9 L (8.6-10.3) mg/dl Magnesium 1.5 L (1.7-2.4) mg/dl 04/02/23 04/02/23 Range/Units 20:12 17:18 Sodium (136-145) mmol/L Potassium (3.5-5.1) mmol/L Chloride (98-107) mmol/L Carbon Dioxide (21-32) mmol/L Anion Gap (3-11) BUN (6-23) mg/dl Creatinine (0.6-1.2) mg/dl Est Cr Clr Drug Dosing ml/min Est GFR ( Amer) ml/min Est GFR (Non-Af Amer) ml/min BUN/Creatinine Ratio (10-20) Glucose (70-99(Fasting)) mg/dl POC Glucose 201 H 156 H (70-99) mg/dl Calcium (8.6-10.3) mg/dl Magnesium (1.7-2.4) mg/dl Medications Administered Current Inpatient Medications Acetaminophen (Acetaminophen 325 Mg Tab) 650 mg PO Q4H PRN PRN Reason: Pain or Fever Stop: 04/26/23 21:18 Al Hydrox/Mg Hydrox/Simethicone (Aluminum/Magnesium Susp 30 Ml Udc) 15 ml PO Q4H PRN PRN Reason: Dyspepsia Stop: 04/26/23 21:18 Amlodipine Besylate (Amlodipine Besylate 5 Mg Tab) 2.5 mg PO QAM [facility] Stop: 04/27/23 08:59 Last Admin: 04/03/23 07:50 Dose: 2.5 mg Atorvastatin Calcium (Atorvastatin 40 Mg Tab) 80 mg PO QAM [facility] Stop: 04/27/23 08:59 Last Admin: 04/03/23 07:50 Dose: 80 mg Cyanocobalamin (Cyanocobalamin (B-12) 500 Mcg Tablet) 1,000 mcg PO DAILY [facility] Stop: 04/27/23 08:59 Last Admin: 04/03/23 07:50 Dose: 1,000 mcg Dextrose (Dextrose 50% 50 Ml Syringe) 25 - 50 ml IV UD PRN; Protocol PRN Reason: Hypoglycemia Protocol Stop: 04/26/23 21:18 Docusate Sodium (Docusate Sodium 100 Mg Cap) 100 mg PO DAILY [facility] Stop: 04/27/23 08:59 Last Admin: 04/03/23 07:49 Dose: 100 mg Glucagon (Glucagon For Inj 1 Mg Vial) 1 mg SQ UD PRN; Protocol PRN Reason: Hypoglycemia Protocol Stop: 04/26/23 21:18 Glucose (Glucose 10 Tab/Tube) 4 - 8 tab PO UD PRN; Protocol PRN Reason: Hypoglycemia Treatment Stop: 04/26/23 21:18 Glucose (Glucose 40% Gel 15 Gm Tube) 15 - 30 gm PO UD PRN; Protocol PRN Reason: Hypoglycemia Protocol Stop: 04/26/23 21:18 Hydrocortisone (Hydrocortisone Acetate 25 Mg Supp) 25 mg GA BID PRN PRN Reason: Hemorrhoids Stop: 04/06/23 21:55 Sodium Chloride (Nss) 1,000 mls @ 80 mls/hr IV .[id number] [facility] Stop: 04/28/23 14:29 Last Admin: 04/03/23 06:23 Dose: 80 mls/hr Insulin Aspart (Insulin Aspart Per Unit Charge) 0 units SC ACHS [facility] Stop: 04/26/23 21:18 Last Admin: 04/03/23 12:48 Dose: 3 units Lisinopril (Lisinopril 20 Mg Tab) 20 mg PO DAILY [facility] Stop: 04/27/23 08:59 Last Admin: 04/03/23 07:49 Dose: 20 mg Lorazepam (Lorazepam 0.5 Mg Tab) 0.5 mg PO HS PRN PRN Reason: Anxiety/Insomnia Stop: 05/01/23 21:48 Last Admin: 04/02/23 20:42 Dose: 0.5 mg Magnesium Chloride (Magnesium Chloride W/Calcium 64mg Delayed Rel Tab) 64 mg PO BID [facility] Stop: 04/27/23 10:44 Last Admin: 04/03/23 07:49 Dose: 64 mg Magnesium Hydroxide (Magnesium Hydroxide Susp 30 Ml Udc) 30 ml PO Q12H PRN PRN Reason: Constipation Stop: 04/26/23 21:18 Metoclopramide HCl (Metoclopramide Hcl Inj 5 Mg/Ml 2 Ml Vial) 5 mg IV Q6H PRN PRN Reason: nausea/vomitting not relieved by zofran Stop: 04/27/23 11:59 Metoprolol Succinate (Metoprolol Succ 50mg Ext Rel Tab) 50 mg PO QPM [facility] Stop: 04/26/23 21:34 Last Admin: 04/02/23 20:37 Dose: 50 mg Metoprolol Succinate (Metoprolol Succ 50mg Ext Rel Tab) 100 mg PO QAM [facility] Stop: 04/27/23 08:59 Last Admin: 04/03/23 07:50 Dose: 100 mg Miconazole Nitrate (Miconazole Nitrate Powder 85 Gm) 1 appln EXT BID [facility] Stop: 04/29/23 21:59 Last Admin: 04/03/23 07:49 Dose: 1 appln Miscellaneous (Carbohydrates For Hypoglycemia ) 15 - 30 gm PO UD PRN PRN Reason: Hypoglycemia Protocol Stop: 04/26/23 21:18 Ondansetron HCl (Ondansetron Inj 2 Mg/Ml 2 Ml Vial) 4 mg IV Q6H PRN PRN Reason: Nausea Stop: 04/26/23 21:18 Pantoprazole Sodium (Pantoprazole 40 Mg Tab) 40 mg PO DAILY [facility] Stop: 04/27/23 08:59 Last Admin: 04/03/23 07:49 Dose: 40 mg Polyethylene Glycol (Polyethylene (Miralax) 17 Gm Pack) 17 gm PO DAILY PRN PRN Reason: Constipation Stop: 04/26/23 21:18 Last Admin: 03/28/23 08:27 Dose: 17 gm Polyethylene Glycol (Polyethylene (Miralax) 17 Gm Pack) 17 gm PO DAILY [facility] Stop: 04/27/23 08:59 Last Admin: 04/03/23 07:50 Dose: 17 gm Potassium Phosphate (Pot Phosphate Monobasic W/ Sod Tab) 1 tab PO QID [facility] Stop: 05/02/23 12:59 Last Admin: 04/03/23 12:52 Dose: 1 tab Vitamin D (Cholecalciferol 1,000 Units 25 Mcg Tab) 1,000 units PO DAILY [facility] Stop: 04/27/23 08:59 Last Admin: 04/03/23 07:50 Dose: 1,000 units
[2023-04-04] MEDS: SODIUM CHLORIDE 0.9% 1,000 ML IV SCH (05:24)
[2023-04-04 07:53] LABS: BUN Creatinine Ratio 9.2 (10-20); Calcium 7.8 mg/dl (8.6-10.3); Creatinine Clr Calc Pharmacy 46.3 ml/min; Est GFR (African American) 81.2 ml/min; Magnesium 1.6 mg/dl (1.7-2.4); Potassium 3.3 mmol/L (3.5-5.1)
[2023-04-04] MEDS: lisinopril 20 MG TAB PO SCH (08:06)
[2023-04-04] MEDS: CYANOCOBALAMIN (B-12) 500 MCG TABLET PO SCH (08:06)
[2023-04-04] MEDS: CHOLECALCIFEROL 1,000 UNITS 25 MCG TAB PO SCH (08:06)
[2023-04-04] MEDS: METOPROLOL SUCC 50MG EXT REL TAB PO SCH (08:06)
[2023-04-04] MEDS: amLODIPine BESYLATE 5 MG TAB PO SCH (08:07)
[2023-04-04] MEDS: ATORVASTATIN 40 MG TAB PO SCH (08:07)
[2023-04-04] MEDS: POLYETHYLENE (MIRALAX) 17 GM PACK PO SCH (08:08)
[2023-04-04] MEDS: PANTOprazole 40 MG TAB PO SCH (08:08)
[2023-04-04] MEDS: DOCUSATE SODIUM 100 MG CAP PO SCH (08:08)
[2023-04-04] MEDS: MAGNESIUM CHLORIDE W/CALCIUM 64MG DELAYED REL TAB PO SCH (08:08)
[2023-04-04] MEDS: POT PHOSPHATE MONOBASIC W/ SOD TAB PO SCH (08:09)
[2023-04-04] MEDS ORDERED: POTASSIUM CHLORIDE CRTAB 20 MEQ TABCR PO STA (08:10)
[2023-04-04] MEDS: MICONAZOLE NITRATE POWDER 85 GM EXT SCH (08:13)
[2023-04-04] MEDS: INSULIN ASPART PER UNIT CHARGE SC SCH (09:21)
[2023-04-04] MEDS: MAGNESIUM SULFATE / D5W 1 GM/100 ML BAG IV SCH ×2 (09:28→11:06)
--- NOTE | 2023-04-04 10:09 | Discharge Summary ---
Date of Service April 04, 2023 Admission HPI Per Admitting Provider 87-year-old female who has a significant past medical history of atrial fibrillation previously on Coumadin that was recently discontinued in setting of GI bleed, history of nonsustained V. tach, tricuspid regurg, mitral regurg, chronic diastolic CHF, CKD stage III, T2DM, HTN, HLD, history of breast cancer status post left mastectomy and other problems listed below who presented to ED secondary to generalized weakness and poor appetite. Of significance patient had 2 recent hospitalizations. She was initially hospitalized 02/20 to 02/28 secondary to suspected GI bleed in setting of supratherapeutic INR. She un derwent EGD and colonoscopy which were relatively unremarkable. Colonoscopy did reveal internal hemorrhoids as well as diverticulosis but no overt cause of bleeding. It was recommended that she undergo an outpatient capsule study for further evaluation. She was then discharged home and rehospitalized 03/09 to 03/11 secondary to weakness and bright red blood per rectum. She was again seen and evaluated by GI who deferred repeat endoscopy and felt that her symptoms were likely related to internal hemorrhoids and constipation. She was prescribed MiraLAX. She was seen and evaluated by PT and OT and rehab was recommended. She was discharged to [facility] where she was admitted until 1 week ago. Patient was brought in by her family because she needed significant assist with her activities of daily living and is unable to ambulate much. Patient complained of lower abdominal pain and feels like her bladder is distended. She has no respiratory symptoms at this time. Patient was evaluated in the ER and was noted to have severe hypomagnesemia and was started on IV supplementation. Denies any chest pain shortness of breath fever or cough States that she had an episode of black stool over the past 2 days. Admission Exam Per Admitting Provider HEENT:No JVD. CV: S1/S2+ , no murmurs Resp: Air entry present bilaterally. GI: Abdomen distended , . Musculoskeletal: examined for joint tenderness. Skin: no rashes Psych: Normal affect Neuro: Patient is awake alert Principal Diagnosis Weakness, Electrolyte abnormalities Discharge Exam General: Alert, oriented. No acute distress Psych: Appropriate mood and affect Neuro: weakness, gait instability HEENT: NC/AT CV: RRR Resp: Breath sounds clear bilaterally, no increased effort of breathing. Abdomen: Soft, nontender, nondistended. Extremities: No edema in lower extremities bilaterally. Discharge Data Allergies Allergy/AdvReac Type Severity Reaction Status Date / Time tramadol Allergy Severe HALLUCINATIONS-PER Verified 03/09/23 15:34 GMG bacitracin Allergy Mild CAUSED EYE Verified 03/09/23 15:34 PROBLEMS neomycin Allergy Mild Rash Verified 03/09/23 15:34 polymyxin B Allergy Mild CAUSED EYE Verified 03/09/23 15:34 PROBLEMS Aminoglycosides Allergy Unknown Unknown Verified 03/09/23 15:34 aspirin AdvReac Severe HX OF GI Verified 02/20/23 16:07 BLEED ibuprofen AdvReac Severe HX OF GI Verified 03/09/23 15:34 BLEED naproxen [From Aleve] AdvReac Severe HX OF GI Verified 03/09/23 15:34 BLEED NSAIDS (Non-Steroidal AdvReac Severe HX OF GI Verified 03/09/23 15:34 Anti-Inflamma BLEED doxycycline AdvReac Intermediate HALLUCINATI Verified 03/09/23 15:34 ONS nitrofurantoin AdvReac Intermediate HEADACHES Verified 03/09/23 15:34 [From Macrobid] Sulfa (Sulfonamide AdvReac Intermediate NAUSEA, Verified 03/09/23 15:34 Antibiotics) VOMITING, BAD HEADACHE triamterene AdvReac Intermediate ULCERS Verified 03/09/23 15:34 Consultations 03/27/23 18:10 ED Decision to Admit Stat 03/28/23 12:01 Consult Gastroenterology Routine Ordered Studies 03/27/23 16:48 CT abd pelvis wo con Stat FINDINGS: There is a trace left pleural effusion. Mild interstitial thickening at the lung bases. This may be chronic. Small peripheral density within the base of the right lower lobe on image 28 may represent subsegmental atelectasis. The heart is mildly enlarged. No pneumoperitoneum. No pneumatosis. No acute fractures identified. There is a small hiatus hernia. 5 cm duodenal diverticulum noted. The unenhanced liver, gallbladder, spleen, pancreas, and adrenal glands are unremarkable. Mild bilateral perinephric edema is likely chronic. A few subcentimeter hypodense lesions within the kidneys are technically too small to characterize but statistically represent cysts. No renal or ureteral stones. No hydronephrosis. Extensive calcified plaque within the abdominal aorta which appears normal in caliber. No retroperitoneal or pelvic lymphadenopathy. There is mild pelvic floor collapse. Prior hysterectomy. No retroperitoneal or pelvic lymphadenopathy. No pelvic free fluid. The bladder is unremarkable. Suboptimal evaluation for bowel pathology due to the lack of intravenous and oral contrast. However, there is no definite bowel wall thickening or obstruction. Prior appendectomy. Calcified nodule adjacent to the ascending colon. This is likely benign. Colonic diverticulosis. No evidence for acute diverticulitis. IMPRESSION: 1. No bowel wall thickening or obstruction. 2. No hydronephrosis. 3. Colonic diverticulosis. No evidence for acute diverticulitis. 4. Trace left pleural effusion. 5. Small hiatus hernia. 6. Additional findings as described above. Hospital Course (1) Weakness: (2) JOLIE (acute kidney injury): (3) Hypomagnesemia: (4) Chronic diastolic CHF (congestive heart failure): (5) Hypertension: (6) Black stool: (7) Anemia: (8) Persistent atrial fibrillation: Plan 87-year-old female with symptoms of abdominal pain, generalized weakness, ambulatory dysfunction and noted on labs to have severe hypomagnesemia in the setting of chronic N/V and decreased appetite. Decreased appetite N/V Generalized weakness Per family has been happening for about a month IV antiemetics Regular diet GI consult Nutrition consult IV fluids as long as PO intake poor PT/OT- recommending rehab Nausea resolved, pt reports eating. Denies any abd. pain or nausea. Boost also ordered. Encourage PO intake. Hypomagnesemia, hypokalemia Likely in setting of decreased appetite, chronic ppi use On scheduled magnesium, slow mag 64mg BID Discharge on potassium supplement Continue to replete and monitor COVID Per family pt tested positive on Monday, on Mar 17 Pt asymptomatic, no increased oxygen need COVID precautions, monitor Chronic Anemia Iron Deficiency Anemia appears to be chronic FOBT still positive On iron po supplementation- will hold in setting of N/V Iron level <10- Repleted with IV iron on 03/29 iron currently 152 Will continue to monitor hgb History of hypertension continue lisinopril daily Type 2 diabetes Hgba1c of 8.5 on 03/04 Not at goal for age ISS while hospitalized Urinary retention Bladder scan w/350 mL urine. Patient advised by admitting provider to have intermittent catheterization however pt refusing at the time. however , no hydronephrosis and no JOLIE cont. to monitor Total Time Total Time Spent Total Time Spent (In Minutes): 40 Discharge Plan Discharge Items Patient Disposition: Transfer Residential Fac Reason For Visit: WEAKNESS Discharge Diagnosis: Weakness, Electrolyte abnormalities Activity: Per Instructions section Non-emergency contact: Primary Care Provider Call non-emergency contact if: you have any medication questions and your symptoms worsen Follow-up/Referrals: Liliane Lobato DO [Primary Care Provider] - Diet: Carb Consistent or DM2 Diet Texture: Easy to Chew Addtl Attending Provider Instructions: Follow up with your primary care doctor. Continue taking potassium and magnesium supplements. It is important that you have an adequate diet and if not, at least drink protein shakes such as boost. You should have your potassium and magnesium level re-checked by your primary care physician. Pending Studies at Discharge: No Stand-Alone Forms: My [facility] Skilled Items Patient informed of condition?: Yes DNR: No Discharge Level of Care: Skilled Communicable Disease: No Discharge Prognosis: Stable Lines: None Urinary Catheter: No Medications and DC Order Prescriptions: New Mag 64 64 mg Tablet,Delayed Release (Dr/Ec) 64 mg PO BID Qty: 20 0RF potassium chloride 20 mEq tablet extended release 20 meq PO DAILY Qty: 20 0RF Continued metoprolol succinate [Toprol XL] 100 mg tablet extended release 24 hr 100 mg PO QAM Rx Instructions: TAKES 100 MG QAM, THEN 50 MG QHS. triamcinolone acetonide [Triderm] 0.1 % cream 1 applic topical BID PRN (Reason: Itching) lorazepam [Ativan] 0.5 mg tablet 0.5 mg PO HS glipizide [Glucotrol XL] 2.5 mg tablet extended release 24hr 2.5 mg PO DAILY Rx Instructions: TAKE 30 MINUTES PRIOR TO MEAL cyanocobalamin (vitamin B-12) [Vitamin B-12] 1,000 mcg Tablet 1,000 mcg PO DAILY cholecalciferol (vitamin D3) [Vitamin D3] 1,000 unit Capsule 1,000 unit PO DAILY metformin 500 mg tablet 500 mg PO BIDM atorvastatin 80 mg tablet 80 mg PO QAM lisinopril 20 mg Tablet 20 mg PO DAILY amlodipine 2.5 mg tablet 2.5 mg PO QAM docusate sodium 100 mg Capsule 100 mg PO DAILY Rx Instructions: IF NEEDED MAY TAKE SECOND DOSE QPM. metoprolol succinate 100 mg tablet extended release 24 hr 50 mg PO QPM ferrous sulfate 325 mg (65 mg iron) Tablet,Delayed Release (Dr/Ec) 325 mg PO BIDM Qty: 60 0RF lorazepam 0.5 mg Tablet 0.5 mg PO DAILY PRN (Reason: Anxiety) polyethylene glycol 3350 [Miralax] 17 gram powder in packet 17 g PO DAILY PRN (Reason: Constipation) pantoprazole 40 mg tablet,delayed release (DR/EC) 40 mg PO DAILY Discontinued hydrocodone-acetaminophen 5-325 mg tablet 1 tab PO BID PRN (Reason: Pain, Severe) furosemide 40 mg tablet 40 mg PO [id number] Rx Instructions: Skip wed & sat Discharge Orders: Discharge Order (Routine); Ordered 04/04/23 Ordered By: Braxton Miller Admission Data Admit Date/Time: 03/27/23 18:38 Attending Provider: Braxton Miller Admit Provider: Herber Alfonso Primary Care Provider: Liliane Lobato Other Providers: Herber Alfonso; Tania Carver; Jerome Harmon; Dahlia Anderson; Diana Zapata; Meaghan Laughlin; Ilia Isbell; Anand Meneses; Amira Mota; Juwan Sykes; Justyn Tejeda; Jen Salgado; Alyson Tineo; Dayanna Valverde; Francheska Wesley; Scarlett Khan; Andrey Reno; Jean Stovall; Stacey Ferrara; Prashant Gillespie Jr; Flori Hussein; Roberts Chapel
== END 2023-04-04 13:31 | DRG 640 ==
LOC: ED 15:02 → SUATTDRO 18:38 → EDINP 18:38 → 2S 22:36 → 2N 03-31 22:29

== ENCOUNTER 2023-04-27 12:27 | Inpatient (IN) ==
--- NOTE | 2023-04-27 13:08 | Emergency Department Note ---
History of Present Illness General Chief complaint: Fall Time Seen by Provider: 04/27/23 12:49 Source: patient, family (Son who is at the bedside), RN notes reviewed and old records reviewed (I have reviewed records from [facility] outpatient visit yesterday that the son had) Mode of arrival: EMS Limitations: no limitations History of Present Illness Maximum Pain Intensity: 8 This patient is a 87-year-old female who fell yesterday around 8:30 AM when she was getting dressed to go to see her primary care doctor. She got up and fell. She says she went to the appointment and did mention to the doctor she is gotten worse today. She has recently been in the hospital several times in the last month for chronic GI blood loss and weakness she recently got a [place] last week and this was follow-up. Yesterday her blood pressure was low at 95/39 so they had her hold her Lasix and her blood pressure medications and take half of her metoprolol. She has pain in her left hip and knee her son says some of this is chronic but she fell on that side as well. Denies chest pain or shortness of breath Home Medications Medication Instructions Recorded Confirmed Type cholecalciferol (vitamin D3) 25 1,000 unit PO DAILY 12/29/18 04/27/23 History mcg (1,000 unit) capsule (Vitamin D3) cyanocobalamin (vitamin B-12) 1,000 mcg PO DAILY 12/29/18 04/27/23 History 1,000 mcg tablet (Vitamin B-12) glipizide 2.5 mg tablet, extended 2.5 mg PO DAILY 12/29/18 04/27/23 History release 24 hr (Glucotrol XL) lorazepam 0.5 mg tablet (Ativan) 0.5 mg PO HS Anxiety 12/29/18 04/27/23 History metoprolol succinate 100 mg 100 mg PO QAM 12/29/18 04/27/23 History tablet,extended release 24 hr (Toprol XL) triamcinolone acetonide 0.1 % 1 applic topical BID PRN Itching 12/29/18 04/27/23 History topical cream (Triderm) amlodipine 2.5 mg tablet 2.5 mg PO QAM 02/20/23 04/27/23 History atorvastatin 80 mg tablet 80 mg PO QAM 02/20/23 04/27/23 History docusate sodium 100 mg capsule 100 mg PO BID PRN Constipation 02/20/23 04/27/23 History metformin 500 mg tablet 500 mg PO BIDM 02/20/23 04/27/23 History metoprolol succinate 100 mg 50 mg PO QPM 03/09/23 04/27/23 History tablet,extended release 24 hr ferrous sulfate 325 mg (65 mg 325 mg PO BIDM #60 tabs 03/11/23 04/27/23 Rx iron) tablet,delayed release lorazepam 0.5 mg tablet 0.5 mg PO DAILY PRN Anxiety 03/27/23 04/27/23 History pantoprazole 40 mg tablet,delayed 40 mg PO DAILY 03/27/23 04/27/23 History release polyethylene glycol 3350 17 gram 17 g PO DAILY PRN Constipation 03/27/23 04/27/23 History oral powder packet (Miralax) food supplemt, lactose-reduced 1 ea PO DAILY 04/27/23 04/27/23 History furosemide 40 mg tablet (Lasix) 40 mg PO 3XWK 04/27/23 04/27/23 History hydrocodone 5 mg-acetaminophen 325 1 tab PO BID PRN Pain 04/27/23 04/27/23 History mg tablet lisinopril 10 mg tablet 10 mg PO QAM 04/27/23 04/27/23 History magnesium chloride 64 mg 64 mg PO QPM 04/27/23 04/27/23 History (magnesium chloride) tablet,delayed release (Mag 64) magnesium chloride 64 mg 128 mg PO QAM 04/27/23 04/27/23 History (magnesium chloride) tablet,delayed release (Mag 64) potassium chloride 20 mEq 20 meq PO QAM 04/27/23 04/27/23 History tablet,extended release Allergies Allergy/AdvReac Type Severity Reaction Status Date / Time tramadol Allergy Severe HALLUCINATIONS-PER Verified 04/27/23 17:02 GMG bacitracin Allergy Mild CAUSED EYE Verified 04/27/23 17:02 PROBLEMS neomycin Allergy Mild Rash Verified 04/27/23 17:02 polymyxin B Allergy Mild CAUSED EYE Verified 04/27/23 17:02 PROBLEMS Aminoglycosides Allergy Unknown Unknown Verified 04/27/23 17:02 aspirin AdvReac Severe HX OF GI Verified 04/27/23 17:02 BLEED ibuprofen AdvReac Severe HX OF GI Verified 04/27/23 17:02 BLEED naproxen [From Aleve] AdvReac Severe HX OF GI Verified 04/27/23 17:02 BLEED NSAIDS (Non-Steroidal AdvReac Severe HX OF GI Verified 04/27/23 17:02 Anti-Inflamma BLEED doxycycline AdvReac Intermediate HALLUCINATI Verified 04/27/23 17:02 ONS nitrofurantoin AdvReac Intermediate HEADACHES Verified 04/27/23 17:02 [From Macrobid] Sulfa (Sulfonamide AdvReac Intermediate NAUSEA, Verified 04/27/23 17:02 Antibiotics) VOMITING, BAD HEADACHE triamterene AdvReac Intermediate ULCERS Verified 04/27/23 17:02 Past Med/Surg History Medical History (Updated 04/27/23 @ 20:26 by Ten Viera MD) Knee effusion, left Atrial fibrillation with RVR Persistent atrial fibrillation Nonsustained ventricular tachycardia Paroxysmal SVT (supraventricular tachycardia) Paroxysmal atrial tachycardia Tricuspid regurgitation Mitral regurgitation Chronic diastolic CHF (congestive heart failure) CKD (chronic kidney disease) stage 3, GFR 30-59 ml/min Diabetes mellitus type 2 in obese History of breast cancer Hyperlipidemia Hypertension Surgical History History of partial mastectomy of left breast History of appendectomy H/O bilateral oophorectomy S/P JAYNE (total abdominal hysterectomy) Bilateral cataracts Family History Other No significant family history Social History Smoking Status: Never smoker Hx Alcohol Use: Yes Alcohol type: wine Hx Substance Use: No Preferred Language: Wolof Communication Ability: Effective Press Setter Required: No Beliefs That Will Affect Care: None Current Living Situation: Alone Current Living Situation Comment: home alone, daughter in visiting from [place]. Son lives close by. current occupational status: retired Feels Safe at Home: Yes Assistive Devices: Cane and Walker Review of Systems A total of 10 systems reviewed and were otherwise negative Physical Exam Vital Signs Vital Signs - 24 hr 04/27/23 12:36 04/27/23 12:37 04/27/23 13:00 Temperature 36.9 C Temperature Source Oral Pulse Rate 121 H 113 H 110 H Pulse Rate from SpO2 Sensor 112 H 116 H Respiratory Rate 19 18 20 Respiratory Effort / Characteristics Non-Labored Spontaneous Respiratory Depth Normal Respiratory Pattern Regular Blood Pressure 145/90 H Blood Pressure Mean 108 Pulse Oximetry 99 100 99 Oxygen Delivery Method Room Air Room Air Sepsis Recent Fever Within 48 Hours No Sepsis New/Unexplained Change in Mental Status N/A Sepsis Action Taken by Nursing No Action Required 04/27/23 13:01 04/27/23 13:30 04/27/23 13:46 Temperature Temperature Source Pulse Rate 116 H 120 H Pulse Rate from SpO2 Sensor 125 H 127 H Respiratory Rate 20 20 Respiratory Effort / Characteristics Respiratory Depth Respiratory Pattern Blood Pressure Blood Pressure Mean Pulse Oximetry 98 93 98 Oxygen Delivery Method Room Air Sepsis Recent Fever Within 48 Hours Sepsis New/Unexplained Change in Mental Status Sepsis Action Taken by Nursing 04/27/23 13:46 04/27/23 13:52 04/27/23 13:52 Temperature Temperature Source Pulse Rate 117 H Pulse Rate from SpO2 Sensor 112 H Respiratory Rate 23 Respiratory Effort / Characteristics Respiratory Depth Respiratory Pattern Blood Pressure 96/59 L 99/76 L Blood Pressure Mean 71 88 Pulse Oximetry 97 Oxygen Delivery Method Sepsis Recent Fever Within 48 Hours Sepsis New/Unexplained Change in Mental Status Sepsis Action Taken by Nursing 04/27/23 14:00 04/27/23 14:00 04/27/23 14:30 Temperature Temperature Source Pulse Rate 110 H 122 H Pulse Rate from SpO2 Sensor 128 H 119 H Respiratory Rate 16 17 Respiratory Effort / Characteristics Respiratory Depth Respiratory Pattern Blood Pressure 133/67 Blood Pressure Mean 98 Pulse Oximetry 98 99 Oxygen Delivery Method Room Air Room Air Sepsis Recent Fever Within 48 Hours Sepsis New/Unexplained Change in Mental Status Sepsis Action Taken by Nursing 04/27/23 14:30 04/27/23 15:41 04/27/23 15:42 Temperature Temperature Source Pulse Rate 131 H 123 H Pulse Rate from SpO2 Sensor Respiratory Rate 16 18 Respiratory Effort / Characteristics Respiratory Depth Respiratory Pattern Blood Pressure 150/73 H Blood Pressure Mean 81 Pulse Oximetry Oxygen Delivery Method Sepsis Recent Fever Within 48 Hours Sepsis New/Unexplained Change in Mental Status Sepsis Action Taken by Nursing 04/27/23 15:42 04/27/23 16:00 04/27/23 16:00 Temperature Temperature Source Pulse Rate 120 H Pulse Rate from SpO2 Sensor 125 H Respiratory Rate Respiratory Effort / Characteristics Respiratory Depth Respiratory Pattern Blood Pressure 145/69 H 163/78 H Blood Pressure Mean 87 90 Pulse Oximetry 97 Oxygen Delivery Method Sepsis Recent Fever Within 48 Hours Sepsis New/Unexplained Change in Mental Status Sepsis Action Taken by Nursing General: Well developed well nourished older female who appears in no acute distress, breathing comfortably on room air. Normal speech HEENT: Normal cephalic atraumatic. Pupils are equal round and reactive to light. Extraocular movements are intact. Oropharynx is pink with moist mucous membranes. No swelling of the mouth lips or tongue. Neck: Supple with a midline trachea. No meningeal signs or stiffness, no JVD or bruits. No Stridor. Chest: Clear to auscultation bilaterally. No wheezes or rhonchi. No increased work of breathing. Heart: Regular rate and rhythm without murmurs or gallops. Abdomen: Soft nontender, nondistended without rebound guarding or rigidity. No external signs of trauma Extremities: No cyanosis clubbing or edema. No calf tenderness or assymetry. Her left knee is not red or warm but it is tender and appears mildly swollen compared to the left. Additionally her left hip is also tender to palpation without redness or warmth. Spine/Back. Non tender to palpation. No CVA tenderness Skin: Good turgor without rashes. Neurologic exam: Cranial nerves two through 12 are intact. Motor and sensation are intact and symmetrical throughout. Course Administered Medications Acetaminophen (Ofirmev) 1,000 mg in 100 mls @ 400 mls/hr IV Q8H PRN PRN Reason: Pain Stop: 04/30/23 16:53 Last Infusion: 04/27/23 18:56 Dose: Infused Documented By: Admin: 04/27/23 18:36 Dose: 400 mls/hr Documented By: SMOOTH Insulin Aspart (Insulin Aspart Per Unit Charge) 0 units SC ACHS RAIZA Stop: 05/27/23 16:29 Last Admin: 04/27/23 18:08 Dose: Not Given Documented By: SMOOTH Morphine Sulfate (Morphine Sulfate 2 Mg/Ml Carp) 2 mg IV Q6H PRN PRN Reason: Pain Stop: 05/11/23 16:55 Last Admin: 04/27/23 18:36 Dose: 2 mg Documented By: SMOOTH Discontinued Medications Fentanyl Citrate (Fentanyl Citrate Pf 100 Mcg/2 Ml Vial) 25 mcg IV NOW ONE Stop: 04/27/23 14:10 Last Admin: 04/27/23 14:13 Dose: 25 mcg Documented By: MONICA Fentanyl Citrate (Fentanyl Citrate Pf 100 Mcg/2 Ml Vial) 25 mcg IV NOW ONE Stop: 04/27/23 15:37 Last Admin: 04/27/23 15:39 Dose: 25 mcg Documented By: SMOOTH Metoprolol Succinate (Metoprolol Succ 50mg Ext Rel Tab) 50 mg PO NOW STA Stop: 04/27/23 17:04 Last Admin: 04/27/23 18:07 Dose: 50 mg Documented By: SMOOTH Metoprolol Tartrate (Metoprolol Tartrate 1 Mg/Ml Vial) 5 mg IV NOW STA Stop: 04/27/23 16:21 Last Admin: 04/27/23 16:52 Dose: 5 mg Documented By: SMOOTH Medical Decision Making Differential Diagnosis Fall, traumatic injury, arrhythmia, acute coronary syndrome, electrolyte or metabolic abnormality, hypotension, anemia, orthopedic injury Medical Records Attestation: I reviewed the patient's medical records. Home Medications Current Medication List: was personally reviewed by me Laboratory Data Attestation: I reviewed the patient's lab results. 04/27/23 12:42 04/27/23 12:42 Lab Results 04/27/23 04/27/23 Range/Units 12:42 13:17 WBC 8.44 (4.8-10.8) K/ul RBC 3.25 L (4.20-5.40) M/uL Hgb 10.0 L (12.0-16.0) g/dl Hct 30.8 L (37.0-47.0) % MCV 94.8 (80.0-100.0) fL MCH 30.8 (25.0-34.0) pg MCHC 32.5 (32.0-36.0) g/dL RDW Std Deviation 59.5 H (36.4-46.3) fL RDW Coeff of Jareth 17.1 H (11.5-14.5) % Plt Count 295 (130-400) K/uL MPV 11.1 (9.4-12.4) fL Immature Gran % (Auto) 0.4 % Neut % (Auto) 70.1 % Lymph % (Auto) 12.4 % [place] % (Auto) 16.9 % Eos % (Auto) 0.0 % Baso % (Auto) 0.2 % Neut # (Auto) 5.91 (1.40-6.50) K/uL Lymph # (Auto) 1.05 L (1.20-3.40) K/uL [place] # (Auto) 1.43 H (0.11-0.59) K/uL Eos # (Auto) 0.00 (0.00-0.50) K/uL Baso # (Auto) 0.02 (0.00-0.20) K/uL Immature Gran # (Auto) 0.03 (0.01-0.20) K/uL PT 11.2 (9.0-12.0) Seconds INR 1.0 (0.9-1.1) APTT 24 (21-31) Seconds PTT Ratio 0.9 Sodium 137 (136-145) mmol/L Potassium 5.0 (3.5-5.1) mmol/L Chloride 104 (98-107) mmol/L Carbon Dioxide 23 (21-32) mmol/L Anion Gap 10 (3-11) BUN 24 H (6-23) mg/dl Creatinine 1.19 (0.6-1.2) mg/dl Est Cr Clr Drug Dosing 24.7 ml/min Est GFR ( Amer) 47.2 ml/min Est GFR (Non-Af Amer) 40.7 ml/min BUN/Creatinine Ratio 20.2 H (10-20) Glucose 219 H (70-99(Fasting)) mg/dl Calcium 8.9 (8.6-10.3) mg/dl Magnesium 1.1 L (1.7-2.4) mg/dl Total Bilirubin 0.9 (0.2-1.0) mg/dl AST 19 (13-39) U/L ALT 17 (7-52) U/L Alkaline Phosphatase 154 H (34-104) U/L Troponin I High Sens 5.7 (0-14) pg/ml Total Protein 6.8 (6.0-8.3) gm/dl Albumin 3.3 L (3.4-5.0) gm/dl Globulin 3.5 (2.5-4.0) gm/dl Albumin/Globulin Ratio 0.9 (0.9-2) Lipase 47 (11-82) U/L Procalcitonin 0.11 (0-0.5) ng/ml SARS-CoV-2, RNA, NAAT NEGATIVE (NEGATIVE) Imaging Data Attestation: I personally reviewed and interpreted this imaging study as follows: My Impression: Head CTno hemorrhage or mass effect seen. Left knee x-rayno fracture. There is a large effusion. Radiologist's Impression: Head CT 04/27/23 13:00 CT SCAN OF THE BRAIN WITHOUT IV CONTRAST CLINICAL HISTORY: Fall. COMPARISON STUDY: CT of the brain dated 01/07/2008. TECHNIQUE: Unenhanced axial CT scan of the brain is performed from the vertex to the skull base. A dose lowering technique was utilized adhering to the principles of ALARA. The patient was scanned twice due to motion artifact. FINDINGS: Brain parenchyma: There is age-related involutional change noting mild to moderate subcortical and periventricular microangiopathic disease. There is no hemorrhage, mass effect, or evidence of acute territorial ischemia by CT criteria. There is a tiny chronic lacunar infarct in the left cerebellar hemisphere. Mineralization is noted in the basal ganglia. Rosales-white matter differentiation is preserved. No extra-axial fluid collection is seen. Ventricles, sulci, cisterns: Prominent secondary to involutional change. Intracranial vasculature: There is atherosclerotic calcification of the cavernous carotid and vertebral arteries. Calvarium: The skeletal structures are osteopenic. No depressed calvarial fracture is seen. Sinuses and mastoids: The visualized paranasal sinuses are clear. The mastoid air cells are well pneumatized. Orbits: The bony orbits are grossly intact. There are bilateral ocular lens implants. IMPRESSION: There is no hemorrhage, mass effect, or evidence of acute territorial ischemia by CT criteria. ACT 112: Negative or not required by law. Electronically signed by: Heriberto Kc M.D. 04/27/2023 2:56 PM Knee X-Ray 04/27/23 13:00 XR knee LT 1 or 2V routine CLINICAL HISTORY: Fall. COMPARISON: None FINDINGS: There is a large left knee joint effusion without lipohemarthrosis. No acute fracture is identified. Apparent slight depression of the medial tibial plateau is probably chronic. Chondrocalcinosis within the menisci is present. There is moderate tricompartmental left knee osteoarthritis. Extensive vascular calcification is incidentally noted. IMPRESSION: 1. No acute fractures. 2. Large left knee joint effusion without lipohemarthrosis. 3. Moderate tricompartmental osteoarthritis of the left knee. ACT 112: Negative or not required by law. Electronically signed by: Angel oWod M.D. 04/27/2023 1:57 PM Chest X-Ray 04/27/23 13:01 XR chest 1V portable HISTORY: Chest pain, nonspecific COMPARISON: Chest 03/27/2023. FINDINGS: No pneumothorax. No pleural effusions. Mild interstitial thickening at the lung bases, unchanged. This is likely chronic. Otherwise, lungs are clear. The heart remains mildly enlarged. Degenerative changes within the shoulders. IMPRESSION: No significant change compared to the prior study. No acute process. ACT 112: Negative or not required by law. Electronically signed by: Rian Torres M.D. 04/27/2023 1:58 PM Abdomen/Pelvis CT 04/27/23 13:02 CT OF THE ABDOMEN AND PELVIS WITHOUT CONTRAST CLINICAL HISTORY: fall, left hip pain COMPARISON STUDY: CT of the abdomen and pelvis March 27, 2023. TECHNIQUE: Axial images of the abdomen and pelvis were obtained without IV contrast. Images were reviewed in the axial, sagittal, and coronal planes. Automated exposure control was utilized for the study. A dose lowering technique was utilized adhering to the principles of ALARA. FINDINGS: Please note that the chest CT will be reported separately. No hemoperitoneum or pneumoperitoneum is present. Evaluation of the solid abdominal viscera is suboptimal on this unenhanced exam but there is no evidence for traumatic injury to the liver, spleen, renal glands, kidneys or pancreas. The gallbladder is mildly distended. There are no adjacent infiltration. There is no free fluid. No hydronephrosis. No biliary or pancreatic ductal dilatation is present. There is no evidence for a bowel obstruction. No bowel wall thickening is identified on unenhanced exam. Multiple calcified peritoneal bodies are chronic. There is no lymphadenopathy. No fluid collections are present. No acute fractures are identified within the visualized skeletal structures. There is evidence for pelvic floor relaxation, unchanged. IMPRESSION: 1. No acute traumatic findings within the abdomen or pelvis on unenhanced exam. No acute fractures. 2. Mild gallbladder distention without adjacent infiltration. Acute cholecystitis is considered unlikely however the findings could be correlated with right upper quadrant pain. ACT 112: Negative or not required by law. Electronically signed by: Angel Wood M.D. 04/27/2023 3:[address] 04/27/23 13:02 CT SCAN OF THE CERVICAL SPINE CLINICAL HISTORY: Fall. COMPARISON STUDY: CT angiogram of the neck dated 01/08/2008. TECHNIQUE: CT scan of the cervical spine is performed from the skull base to the upper thoracic spine. Images are reviewed in the axial, sagittal, and coronal planes. IV contrast was not administered for this examination. A dose lowering technique was utilized adhering to the principles of ALARA. FINDINGS: Skeletal structures: The skeletal structures are osteopenic. There is no evidence of fracture or subluxation involving the cervical spine. Vertebral body height and alignment are maintained. There is straightening of the cervical lordosis. Anterior osteophytes are seen throughout. The odontoid process and lateral masses are intact. The atlantoaxial articulation is preserved noting productive degenerative change. The spinous processes appear intact. There is moderate to advanced multilevel cervical spondylosis. Uncovertebral and facet arthropathy contribute to neural foraminal narrowing at most levels. Intervertebral discs: There is moderate disc space narrowing at C5-C6 and C6-C7. Mild narrowing is seen at the remaining cervical levels. Central canal: Posterior disc osteophyte complexes at C5-C6 and C6-C7 may contribute to acquired compromise of the central canal. Soft tissues: The prevertebral and paraspinous soft tissues are within normal limits. There is atherosclerotic calcification of the carotid bulbs. Calvarium: The visualized calvarium at the skull base appears intact. Brain parenchyma: Partially visualized brain parenchyma at the skull base is within normal limits. Sinuses and mastoids: The visualized paranasal sinuses are clear. The mastoid air cells are well pneumatized. Lung apices: Clear as visualized. IMPRESSION: 1. There is no evidence of cervical spine fracture or subluxation. 2. Osteopenia and spondylotic change as above. ACT 112: Negative or not required by law. Electronically signed by: Heriberto Kc M.D. 04/27/2023 3:[address] 04/27/23 13:02 CT chest diagnostic wo con CT DOSE: 3433.87 mGy.cm HISTORY: fall TECHNIQUE: Multiaxial CT images of the chest were performed without contrast. A dose lowering technique was utilized adhering to the principles of ALARA. COMPARISON: Abdomen and pelvis CT 03/27/2023. FINDINGS: No acute fractures within the chest. The abdominal structures will be reported on the same day abdomen and pelvis CT. Normal esophagus. Small hiatus hernia. No pleural or pericardial effusions. The heart remains mildly enlarged. Moderate calcified plaque within the normal caliber thoracic aorta. No mediastinal or hilar lymphadenopathy. No mediastinal hematoma. No pneumothorax. The central airways are patent. Mild interstitial thickening. This is likely chronic. Small focal consolidation within the base of the left lower lobe favors atelectasis. There is a 5 mm indeterminate pulmonary nodule within the right upper lobe on image 54. IMPRESSION: 1. No acute traumatic process within the chest. 2. Mild cardiomegaly, unchanged. 3. Small focal density within the base of the left lower lobe. This favors atelectasis. A pneumonia could also have a similar appearance in the appropriate clinical setting. 4. Mild chronic interstitial thickening. 5. A 5 mm indeterminate pulmonary nodule within the right upper lobe. Please refer to below summary of Fleischner criteria recommendations for follow- up of incidental CT nodules (Camilla Torres, Guidelines for management of small pulmonary nodules detected on CT scans: A statement from the Fleischner Society, Radiology 237: [phone].) SOLID NODULES Solitary nodule size: <6 mm * Low risk patients: no follow-up needed * high risk patients: optional CT at 12 months Solitary nodule size: 6-8 mm * Low risk patients: follow-up at 6-12 months, then consider further follow-up at 18-24 months * high risk patients: initial follow-up CT at 6-12 months and then at 18-24 months if no change Solitary nodule size: >8 mm * either low or high risk patients - consider follow-up CT at 3 months, and/or CT-PET, and/or biopsy Multiple nodules size: <6 mm * Low risk patients: no routine follow-up * high risk patients: optional CT at 12 months Multiple nodules size: 6-8 mm * Low risk patients: follow-up at 3-6 months, then consider further follow-up at 18-24 months * high risk patients: follow-up at 3-6 months, then at 18-24 months if no change Multiple nodules size: >8 mm * Low risk patients: follow-up at 3-6 months, then consider further follow-up at 18-24 months * high risk patients: follow-up at 3-6 months, then at 18-24 months if no change Note: newly detected indeterminate nodule in persons 35 years of age or older. * Low risk patients: minimal or absent history of smoking and/or other known risk factors * high risk patients: history of smoking or of other known risk factors (e.g. first degree relative with lung cancer, or exposure to asbestos, radon, uranium) * if a nodule up to 8 mm is partly solid or is ground glass further follow-up is required after 24 months to exclude possible slow growing adenocarcinoma (WILL) SUBSOLID NODULES Solitary pure ground-glass nodule * nodule size <6 mm - no CT follow-up required * nodule size >=6 mm - follow-up CT at 6-12 months, then every 2 years until 5 years Solitary part-solid nodule * nodule size <6 mm - no CT follow-up required * nodule size >=6 mm - follow-up CT at 3-6 months. If unchanged, and solid component remains <6 mm, then annual follow-up for 5 years Multiple subsolid nodules * nodule size <6 mm - follow-up CT at 3-6 months, consider further follow-up at 2 and 4 years if stable * nodule size >=6 mm - follow-up CT at 3-6 months, subsequent management based on the most suspicious nodule(s) ACT 112: Negative or not required by law. Electronically signed by: Rian Torres M.D. 04/27/2023 3:15 PM ECG Data Attestation: I personally reviewed and interpreted this ECG as follows: Indication: + other (Poor baseline/artifact) Rate (beats per minute): 123 Rhythm: + atrial fibrillation ECG Intervals/blocks: + Normal QRS and + Normal QT ECG [place]: + Normal ECG ST segments: + Nonspecific ST abnormalities ECG Findings: no PACs or no PVCs Comparison ECG Date: from (03/27/23) Change: no significant change (With the exception of rate being increased potentially) MDM Narrative This patient comes in as scribed above. She was placed on a cardiac rn in room A3 she was noted to be in A-fib. She is normotensive here with a blood pressure 145/90. She was hypotensive yesterday when she fell. She is mostly complained of left knee and hip pain but given her fall, I did do sandhu trauma CAT scan she does have significant renal insufficiency so I did and without contrast. IV access was established and multiple blood testing was obtained. she has a very complex medical history. EKG and x-rays were also obtained in addition to the CAT scans. CAT scans were unremarkable for any acute abnormalities. She has no evidence of fractures. Her x-ray of her knee was unremarkable with exception of effusion clinically she is not red or warm to suggest a septic joint her son says she does get these frequently and seems like more of a chronic issue CAT scan of her pelvis shows no hip or pelvis fracture. She did require multiple doses of IV fentanyl. She did receive some in the ambulance I gave her 25 mcg here twice. Her hemoglobin is actually looks good for her at 10 she is noticing electrolyte or metabolic abnormalities. I do not think she go home she is significant pain she fell and she has a lot of ongoing medical issues. I have discussed the case at length with [facility] her in the ER for these measures. Continuous cardiac monitoring: Orders placed in EMR for continuous cardiac rn: Upon my evaluation she has A-fib with a mildly tachycardic rate averaging about 110 Impression & Plan Weakness, JOLIE (acute kidney injury), Fall, Acute pain of left knee, Acute pain of left hip Discharge Plan Visit Data Chief Complaint: Fall ED Provider: [facility] Discharge Problem: Weakness, JOLIE (acute kidney injury), Fall, Acute pain of left knee, Acute pain of left hip Discharge Instructions Interventions: ED Discharge Assessment Last Done: 04/27/23 20:16 Discharge Problem: Fall Qualifiers: Encounter type: initial encounter Qualified Code(s): W19.XXXA - Unspecified fall, initial encounter
[2023-04-27 13:41] LABS: Basophils # (auto) 0.02 K/uL (0.00-0.20); Basophils % (auto) 0.2 %; Hematocrit (blood only) 30.8 % (37.0-47.0); Immature Granulocytes # (auto) 0.03 K/uL (0.01-0.20); Immature Granulocytes % (auto) 0.4 %; Lymphocytes # (auto) 1.05 K/uL (1.20-3.40); Lymphocytes % (auto) 12.4 %; Mean Corpuscular Hemoglobin 30.8 pg (25.0-34.0); Mean Corpuscular Hgb Conc 32.5 g/dL (32.0-36.0); Mean Corpuscular Volume 94.8 fL (80.0-100.0); Mean Platelet Volume 11.1 fL (9.4-12.4); Monocytes # (auto) 1.43 K/uL (0.11-0.59); Monocytes % (auto) 16.9 %; Neutrophils # (auto) 5.91 K/uL (1.40-6.50); Neutrophils % (auto) 70.1 %; Platelet Count 295 K/uL (130-400); RDW Coefficient of Variation 17.1 % (11.5-14.5); RDW Standard Deviation 59.5 fL (36.4-46.3); Red Blood Count 3.25 M/uL (4.20-5.40); White Blood Count 8.44 K/ul (4.8-10.8)
[2023-04-27 13:56] LABS: Albumin Level 3.3 gm/dl (3.4-5.0); Bilirubin,Total 0.9 mg/dl (0.2-1.0); Calcium 8.9 mg/dl (8.6-10.3)
--- NOTE | 2023-04-27 13:59 | XRay Report ---
XR knee LT 1 or 2V routine CLINICAL HISTORY: Fall. COMPARISON: None FINDINGS: There is a large left knee joint effusion without lipohemarthrosis. No acute fracture is i dentified. Apparent slight depression of the medial tibial plateau is probably chronic. Chondrocalcin osis within the menisci is present. There is moderate tricompartmental left knee osteoarthritis. Exte nsive vascular calcification is incidentally noted. IMPRESSION: 1. No acute fractures. 2. Large left knee joint effusion without lipohemarthrosis. 3. Moderate tricompartmental osteoarthritis of the left knee. ACT 112: Negative or not required by law. Electronically signed by: Angel Wood M.D. 04/27/2023 1:57 PM
--- NOTE | 2023-04-27 14:00 | XRay Report ---
XR chest 1V portable HISTORY: Chest pain, nonspecific COMPARISON: Chest 03/27/2023. FINDINGS: No pneumothorax. No pleural effusions. Mild interstitial thickening at the lung bases, unch anged. This is likely chronic. Otherwise, lungs are clear. The heart remains mildly enlarged. Degener ative changes within the shoulders. IMPRESSION: No significant change compared to the prior study. No acute process. ACT 112: Negative or not required by law. Electronically signed by: Rian Torres M.D. 04/27/2023 1:58 PM
[2023-04-27 14:02] LABS: Albumin Globulin Ratio 0.9 (0.9-2); BUN Creatinine Ratio 20.2 (10-20); Creatinine Clr Calc Pharmacy 24.7 ml/min; Est GFR (African American) 47.2 ml/min; Est GFR (Non-African American) 40.7 ml/min; Globulin 3.5 gm/dl (2.5-4.0); Total Protein 6.8 gm/dl (6.0-8.3)
[2023-04-27 14:08] LABS: Troponin I High Sensitivity 5.7 pg/ml (0-14)
[2023-04-27 14:09] LABS: Partial Thromboplastin Ratio 0.9; Partial Thromboplastin Time 24 Seconds (21-31); Prothrombin Time 11.2 Seconds (9.0-12.0)
[2023-04-27] MEDS: fentaNYL citrate PF 100 MCG/2 ML VIAL IV ONE ×2 (14:13→15:39)
--- NOTE | 2023-04-27 14:58 | CT Scan Report ---
CT SCAN OF THE BRAIN WITHOUT IV CONTRAST CLINICAL HISTORY: Fall. COMPARISON STUDY: CT of the brain dated 01/07/2008. TECHNIQUE: Unenhanced axial CT scan of the brain is performed from the vertex to the skull base. A do se lowering technique was utilized adhering to the principles of ALARA. The patient was scanned twice due to motion artifact. FINDINGS: Brain parenchyma: There is age-related involutional change noting mild to moderate subcortical and pe riventricular microangiopathic disease. There is no hemorrhage, mass effect, or evidence of acute ter ritorial ischemia by CT criteria. There is a tiny chronic lacunar infarct in the left cerebellar maria teresa sphere. Mineralization is noted in the basal ganglia. Rosales-white matter differentiation is preserved. No extra-axial fluid collection is seen. Ventricles, sulci, cisterns: Prominent secondary to involutional change. Intracranial vasculature: There is atherosclerotic calcification of the cavernous carotid and vertebr al arteries. Calvarium: The skeletal structures are osteopenic. No depressed calvarial fracture is seen. Sinuses and mastoids: The visualized paranasal sinuses are clear. The mastoid air cells are well pneu matized. Orbits: The bony orbits are grossly intact. There are bilateral ocular lens implants. IMPRESSION: There is no hemorrhage, mass effect, or evidence of acute territorial ischemia by CT nabil liu. ACT 112: Negative or not required by law. Electronically signed by: Heriberto Kc M.D. 04/27/2023 2:56 PM
--- NOTE | 2023-04-27 15:04 | CT Scan Report ---
CT SCAN OF THE CERVICAL SPINE CLINICAL HISTORY: Fall. COMPARISON STUDY: CT angiogram of the neck dated 01/08/2008. TECHNIQUE: CT scan of the cervical spine is performed from the skull base to the upper thoracic spine . Images are reviewed in the axial, sagittal, and coronal planes. IV contrast was not administered fo r this examination. A dose lowering technique was utilized adhering to the principles of ALARA. FINDINGS: Skeletal structures: The skeletal structures are osteopenic. There is no evidence of fracture or subl uxation involving the cervical spine. Vertebral body height and alignment are maintained. There is s traightening of the cervical lordosis. Anterior osteophytes are seen throughout. The odontoid process and lateral masses are intact. The atlantoaxial articulation is preserved noting productive degenera tive change. The spinous processes appear intact. There is moderate to advanced multilevel cervical s pondylosis. Uncovertebral and facet arthropathy contribute to neural foraminal narrowing at most leve ls. Intervertebral discs: There is moderate disc space narrowing at C5-C6 and C6-C7. Mild narrowing is se en at the remaining cervical levels. Central canal: Posterior disc osteophyte complexes at C5-C6 and C6-C7 may contribute to acquired comp romise of the central canal. Soft tissues: The prevertebral and paraspinous soft tissues are within normal limits. There is athero sclerotic calcification of the carotid bulbs. Calvarium: The visualized calvarium at the skull base appears intact. Brain parenchyma: Partially visualized brain parenchyma at the skull base is within normal limits. Sinuses and mastoids: The visualized paranasal sinuses are clear. The mastoid air cells are well pneu matized. Lung apices: Clear as visualized. IMPRESSION: 1. There is no evidence of cervical spine fracture or subluxation. 2. Osteopenia and spondylotic change as above. ACT 112: Negative or not required by law. Electronically signed by: Heriberto Kc M.D. 04/27/2023 3:02 PM
--- NOTE | 2023-04-27 15:11 | CT Scan Report ---
CT OF THE ABDOMEN AND PELVIS WITHOUT CONTRAST CLINICAL HISTORY: fall, left hip pain COMPARISON STUDY: CT of the abdomen and pelvis March 27, 2023. TECHNIQUE: Axial images of the abdomen and pelvis were obtained without IV contrast. Images were revi ewed in the axial, sagittal, and coronal planes. Automated exposure control was utilized for the naday dy. A dose lowering technique was utilized adhering to the principles of ALARA. FINDINGS: Please note that the chest CT will be reported separately. No hemoperitoneum or pneumoperit oneum is present. Evaluation of the solid abdominal viscera is suboptimal on this unenhanced exam but there is no evidence for traumatic injury to the liver, spleen, renal glands, kidneys or pancreas. T he gallbladder is mildly distended. There are no adjacent infiltration. There is no free fluid. No hy dronephrosis. No biliary or pancreatic ductal dilatation is present. There is no evidence for a bowel obstruction. No bowel wall thickening is identified on unenhanced exam. Multiple calcified peritonea l bodies are chronic. There is no lymphadenopathy. No fluid collections are present. No acute fractur es are identified within the visualized skeletal structures. There is evidence for pelvic floor relax ation, unchanged. IMPRESSION: 1. No acute traumatic findings within the abdomen or pelvis on unenhanced exam. No acute fractures. 2. Mild gallbladder distention without adjacent infiltration. Acute cholecystitis is considered unlik roberto however the findings could be correlated with right upper quadrant pain. ACT 112: Negative or not required by law. Electronically signed by: Angel Wood M.D. 04/27/2023 3:10 PM
--- NOTE | 2023-04-27 15:17 | CT Scan Report ---
CT chest diagnostic wo con CT DOSE: 3433.87 mGy.cm HISTORY: fall TECHNIQUE: Multiaxial CT images of the chest were performed without contrast. A dose lowering techni que was utilized adhering to the principles of ALARA. COMPARISON: Abdomen and pelvis CT 03/27/2023. FINDINGS: No acute fractures within the chest. The abdominal structures will be reported on the same day abdomen and pelvis CT. Normal esophagus. Small hiatus hernia. No pleural or pericardial effusions . The heart remains mildly enlarged. Moderate calcified plaque within the normal caliber thoracic aor ta. No mediastinal or hilar lymphadenopathy. No mediastinal hematoma. No pneumothorax. The central ai rways are patent. Mild interstitial thickening. This is likely chronic. Small focal consolidation wit hin the base of the left lower lobe favors atelectasis. There is a 5 mm indeterminate pulmonary nodul e within the right upper lobe on image 54. IMPRESSION: 1. No acute traumatic process within the chest. 2. Mild cardiomegaly, unchanged. 3. Small focal density within the base of the left lower lobe. This favors atelectasis. A pneumonia c ould also have a similar appearance in the appropriate clinical setting. 4. Mild chronic interstitial thickening. 5. A 5 mm indeterminate pulmonary nodule within the right upper lobe. Please refer to below summary of Fleischner criteria recommendations for follow-up of incidental CT n odules (Camilla Torres, Guidelines for management of small pulmonary nodules detected on CT scans: A sta tement from the Fleischner Society, Radiology 237: [phone].) SOLID NODULES Solitary nodule size: <6 mm * Low risk patients: no follow-up needed * high risk patients: optional CT at 12 months Solitary nodule size: 6-8 mm * Low risk patients: follow-up at 6-12 months, then consider further follow-up at 18-24 months * high risk patients: initial follow-up CT at 6-12 months and then at 18-24 months if no change Solitary nodule size: >8 mm * either low or high risk patients - consider follow-up CT at 3 months, and/or CT-PET, and/or biopsy Multiple nodules size: <6 mm * Low risk patients: no routine follow-up * high risk patients: optional CT at 12 months Multiple nodules size: 6-8 mm * Low risk patients: follow-up at 3-6 months, then consider further follow-up at 18-24 months * high risk patients: follow-up at 3-6 months, then at 18-24 months if no change Multiple nodules size: >8 mm * Low risk patients: follow-up at 3-6 months, then consider further follow-up at 18-24 months * high risk patients: follow-up at 3-6 months, then at 18-24 months if no change Note: newly detected indeterminate nodule in persons 35 years of age or older. * Low risk patients: minimal or absent history of smoking and/or other known risk factors * high risk patients: history of smoking or of other known risk factors (e.g. first degree relative with lung cancer, or exposure to asbestos, radon, uranium) * if a nodule up to 8 mm is partly solid or is ground glass further follow-up is required after 24 m onths to exclude possible slow growing adenocarcinoma (WILL) SUBSOLID NODULES Solitary pure ground-glass nodule * nodule size <6 mm - no CT follow-up required * nodule size >=6 mm - follow-up CT at 6-12 months, then every 2 years until 5 years Solitary part-solid nodule * nodule size <6 mm - no CT follow-up required * nodule size >=6 mm - follow-up CT at 3-6 months. If unchanged, and solid component remains <6 mm, then annual follow-up for 5 years Multiple subsolid nodules * nodule size <6 mm - follow-up CT at 3-6 months, consider further follow-up at 2 and 4 years if sta ble * nodule size >=6 mm - follow-up CT at 3-6 months, subsequent management based on the most suspiciou s nodule(s) ACT 112: Negative or not required by law. Electronically signed by: Rian Torres M.D. 04/27/2023 3:15 PM
[2023-04-27] MEDS ORDERED: MAGNESIUM HYDROXIDE SUSP 30 ML UDC PO PRN (16:16)
[2023-04-27] MEDS ORDERED: POLYETHYLENE (MIRALAX) 17 GM PACK PO PRN (16:16)
[2023-04-27] MEDS ORDERED: ONDANSETRON INJ 2 MG/ML 2 ML VIAL IV PRN (16:16)
[2023-04-27] MEDS ORDERED: ALUMINUM/MAGNESIUM SUSP 30 ML UDC PO PRN (16:16)
[2023-04-27] MEDS ORDERED: GLUCOSE 10 TAB/TUBE PO PRN (16:19)
[2023-04-27] MEDS ORDERED: PHARMACY GLYCEMIC MGMT CONSULT PRN (16:19)
[2023-04-27] MEDS ORDERED: GLUCAGON FOR INJ 1 MG VIAL SQ PRN (16:19)
[2023-04-27] MEDS ORDERED: GLUCOSE 40% GEL 15 GM TUBE PO PRN (16:19)
[2023-04-27] MEDS ORDERED: DEXTROSE 50% 50 ML SYRINGE IV PRN (16:19)
[2023-04-27] MEDS ORDERED: CARBOHYDRATES FOR HYPOGLYCEMIA PO PRN (16:19)
[2023-04-27] MEDS ORDERED: METOPROLOL TARTRATE 1 MG/ML VIAL IV PRN (16:21)
--- NOTE | 2023-04-27 16:32 | History & Physical Report ---
Date of Service April 27, 2023 Assessment & Plan (1) Atrial fibrillation with RVR: (2) Fall: (3) Knee effusion, left: (4) Hypertension: (5) Diabetes mellitus type 2 in obese: (6) Hyperlipidemia: Plan Ms. Benitez is an 87 year old female presented to the ED today after a fall she had yesterday. Yesterday, Ms. Benitez was walking in her hallway in the morning and fell. Her son picked her up and placed her on her walker. Pain had worsened in her left leg and knee where she fell. She went to her PCP appt for evaluation after being at [facility] for rehabilitation. She has had a few recent inpatient hospitalizations for GIB. She had two episodes of emesis last night. Yesterday her blood pressure was SBP 90 and was informed to stop taking diuretics and beta blockers until Monday. The last time she took her Metoprolol was yesterday. She has not taken any of her medications today. Complex PMH that includes: HTN, AF, CHF, DM2, HLD. She uses a walker at baseline. Patient with recent admission for GI bleed. Hemoglobin today stable 10.0 baseline 8-9. No longer taking anticoagulation for A-fib due to GI bleed risk versus benefit. No leukocytosis, potassium 5.0, otherwise labs unremarkable. Knee x-ray indicates left joint effusion. Chest x-ray negative for acute cardiopulmonary disease. Abdomen/pelvis CT suggestive of acute cholecystitis. Chest CTA negative for PE, head CT and cervical spine CT negative for ICH, subdural hematoma, masses or midline shift. Patient denies CARABALLO, dizziness, SOB, chest pain or palpitations, N/V/D, other falls. Patient will be admitted for further management of AF with RVR. Will initiate IV Lopressor and restart Lopressor as prescribed and monitor. Will involve orthopedics for evaluation of the left joint effusion of the knee. Will obtain hip imaging to rule out fracture. Will provide IV Tylenol scheduled and morphine as needed for pain control. Will rule out infective causes A-fib RVR however suspect this is due to beta-tam being held for hypotension. Education provided to family with regards to beta-tam administration for A- fib. A-fib with RVR: Acute Has known A-fib but beta-tam was held today and was instructed by outpatient provider to hold until Monday due to hypotension Systolic blood pressure 150 in ED Heart rate ranging 1 30-1 40 Takes metoprolol 100 mg every morning and 50 mg every afternoon; did not take dose today Metoprolol 5 mg IV administered in ED; administer additional 50 mg p.o. now followed by planned p.m. dose as scheduled Metoprolol 5 mg IV Q6h PRN for heart rate greater than 110 ordered Resume a.m. metoprolol dose tomorrow 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 discontinued in February due to increased risk with GI bleed; discussed with son who is comfortable without anticoagulation Fall: Acute Initial encounter Fell while walking in the hallway. No LOC and did not hit head Left hip painful on exam with movement; imaging ordered to rule out fracture Left knee x-ray performed with left joint effusion; will consult orthopedics for further evaluation Scheduled Tylenol and morphine as needed for pain Generalized abdominal pain: Acute Resolved upon arrival for examination Abdominal pelvis CT indicates possible acute cholecystitis; obtain gallbladder ultrasound No leukocytosis Scheduled Tylenol and morphine as needed for pain HTN: Chronic Takes amlodipine and lisinopril; hold amlodipine for now Diabetes mellitus type 2: Chronic Takes metformin and glipizide; hold while inpatient and placed on [facility] Glycemic pharmacy for Lantus management next HLD: Chronic Takes Atorvastatin;continue GERD: Chronic Takes pantoprazole;continue Disposition: PCP: Liliane Lobato PA-C CODE STATUS: DNR/DNI VTE prophylaxis: teds and SCDs for now I spent a total of 87 minutes coordinating, documenting, and providing care for this patient excluding time spent in the performance of separately billed services. All of the aforementioned completed while collaborating with the assigned attending physician for a full treatment plan. Please see their addendum for further details. History of Present Illness Chief Complaint: recent fall Primary Care Provider: Liliane Lobato DO Ms. Benitez is an 87 year old female presented to the ED today after a fall she had yesterday. Yesterday, Ms. Benitez was walking in her hallway in the morning and fell. Her son picked her up and placed her on her walker. Pain had worsened in her left leg and knee where she fell. She went to her PCP appt for evaluation after being at [facility] for rehabilitation. She has had a few recent inpatient hospitalizations for GIB. She had two episodes of emesis last night. Yesterday her blood pressure was SBP 90 and was informed to stop taking diuretics and beta blockers until Monday. The last time she took her Metoprolol was yesterday. She has not taken any of her medications today. Complex PMH that includes: HTN, AF, CHF, DM2, HLD. She uses a walker at baseline. Patient with recent admission for GI bleed. Hemoglobin today stable 10.0 baseline 8-9. No longer taking anticoagulation for A-fib due to GI bleed risk versus benefit. She did not hit her head when she passed out and did not have LOC or dizziness. No leukocytosis, otherwise electrolytes unremarkable. No leukocytosis, potassium 5.0, otherwise labs unremarkable. Knee x-ray indicates left joint effusion. Chest x-ray negative for acute cardiopulmonary disease. Abdomen/pelvis CT suggestive of acute cholecystitis. Chest CTA negative for PE, head CT and cervical spine CT negative for ICH, subdural hematoma, masses or midline shift. Patient denies CARABALLO, dizziness, SOB, chest pain or palpitations, N/V/D, other falls. Patient will be admitted for further management of AF with RVR. Will initiate IV Lopressor and restart Lopressor as prescribed and monitor. Will involve orthopedics for evaluation of the left joint effusion of the knee. Will obtain hip imaging to rule out fracture. Will provide IV Tylenol scheduled and morphine as needed for pain control. Will rule out infective causes A-fib RVR however suspect this is due to beta-tam being held for hypotension. Education provided to family with regards to beta-tam administration for A- fib. Patient be admitted for further evaluation and management. Please see A/P for further details. Allergies Allergy/AdvReac Type Severity Reaction Status Date / Time tramadol Allergy Severe HALLUCINATIONS-PER Verified 04/27/23 17:02 GMG bacitracin Allergy Mild CAUSED EYE Verified 04/27/23 17:02 PROBLEMS neomycin Allergy Mild Rash Verified 04/27/23 17:02 polymyxin B Allergy Mild CAUSED EYE Verified 04/27/23 17:02 PROBLEMS Aminoglycosides Allergy Unknown Unknown Verified 04/27/23 17:02 aspirin AdvReac Severe HX OF GI Verified 04/27/23 17:02 BLEED ibuprofen AdvReac Severe HX OF GI Verified 04/27/23 17:02 BLEED naproxen [From Aleve] AdvReac Severe HX OF GI Verified 04/27/23 17:02 BLEED NSAIDS (Non-Steroidal AdvReac Severe HX OF GI Verified 04/27/23 17:02 Anti-Inflamma BLEED doxycycline AdvReac Intermediate HALLUCINATI Verified 04/27/23 17:02 ONS nitrofurantoin AdvReac Intermediate HEADACHES Verified 04/27/23 17:02 [From Macrobid] Sulfa (Sulfonamide AdvReac Intermediate NAUSEA, Verified 04/27/23 17:02 Antibiotics) VOMITING, BAD HEADACHE triamterene AdvReac Intermediate ULCERS Verified 04/27/23 17:02 Home Medications Medication Instructions Recorded Confirmed Type cholecalciferol (vitamin D3) 25 1,000 unit PO DAILY 12/29/18 04/27/23 History mcg (1,000 unit) capsule (Vitamin D3) cyanocobalamin (vitamin B-12) 1,000 mcg PO DAILY 12/29/18 04/27/23 History 1,000 mcg tablet (Vitamin B-12) glipizide 2.5 mg tablet, extended 2.5 mg PO DAILY 12/29/18 04/27/23 History release 24 hr (Glucotrol XL) lorazepam 0.5 mg tablet (Ativan) 0.5 mg PO HS Anxiety 12/29/18 04/27/23 History metoprolol succinate 100 mg 100 mg PO QAM 12/29/18 04/27/23 History tablet,extended release 24 hr (Toprol XL) triamcinolone acetonide 0.1 % 1 applic topical BID PRN Itching 12/29/18 04/27/23 History topical cream (Triderm) amlodipine 2.5 mg tablet 2.5 mg PO QAM 02/20/23 04/27/23 History atorvastatin 80 mg tablet 80 mg PO QAM 02/20/23 04/27/23 History docusate sodium 100 mg capsule 100 mg PO BID PRN Constipation 02/20/23 04/27/23 History metformin 500 mg tablet 500 mg PO BIDM 02/20/23 04/27/23 History metoprolol succinate 100 mg 50 mg PO QPM 03/09/23 04/27/23 History tablet,extended release 24 hr ferrous sulfate 325 mg (65 mg 325 mg PO BIDM #60 tabs 03/11/23 04/27/23 Rx iron) tablet,delayed release lorazepam 0.5 mg tablet 0.5 mg PO DAILY PRN Anxiety 03/27/23 04/27/23 History pantoprazole 40 mg tablet,delayed 40 mg PO DAILY 03/27/23 04/27/23 History release polyethylene glycol 3350 17 gram 17 g PO DAILY PRN Constipation 03/27/23 04/27/23 History oral powder packet (Miralax) food supplemt, lactose-reduced 1 ea PO DAILY 04/27/23 04/27/23 History furosemide 40 mg tablet (Lasix) 40 mg PO 3XWK 04/27/23 04/27/23 History hydrocodone 5 mg-acetaminophen 325 1 tab PO BID PRN Pain 04/27/23 04/27/23 History mg tablet lisinopril 10 mg tablet 10 mg PO QAM 04/27/23 04/27/23 History magnesium chloride 64 mg 64 mg PO QPM 04/27/23 04/27/23 History (magnesium chloride) tablet,delayed release (Mag 64) magnesium chloride 64 mg 128 mg PO QAM 04/27/23 04/27/23 History (magnesium chloride) tablet,delayed release (Mag 64) potassium chloride 20 mEq 20 meq PO QAM 04/27/23 04/27/23 History tablet,extended release Past Med/Surg History Medical History (Updated 04/27/23 @ 20:26 by Ten Viera MD) Knee effusion, left Atrial fibrillation with RVR Persistent atrial fibrillation Nonsustained ventricular tachycardia Paroxysmal SVT (supraventricular tachycardia) Paroxysmal atrial tachycardia Tricuspid regurgitation Mitral regurgitation Chronic diastolic CHF (congestive heart failure) CKD (chronic kidney disease) stage 3, GFR 30-59 ml/min Diabetes mellitus type 2 in obese History of breast cancer Hyperlipidemia Hypertension Surgical History History of partial mastectomy of left breast History of appendectomy H/O bilateral oophorectomy S/P JAYNE (total abdominal hysterectomy) Bilateral cataracts Family History Other No significant family history Social History Smoking Status: Never smoker Hx Alcohol Use: Yes Alcohol type: wine Hx Substance Use: No Preferred Language: Croatian Communication Ability: Effective [employer] Custodian Required: No Beliefs That Will Affect Care: None Current Living Situation: Alone Current Living Situation Comment: home alone, daughter in visiting from [place]. Son lives close by. current occupational status: retired Feels Safe at Home: Yes Assistive Devices: Cane and Walker Review of Systems Review of Systems: Neuro: (+) Falls, trauma, slurred speech HEENT: (-) CARABALLO, dizziness, dysphagia, visual or auditory changes CV: (-) CP, palpitations, swelling Resp: (-) SOB GI: (-) appetite changes, N/V/D, bowel changes : (-) urinary changes Skin: (-) rashes Psych: (-) anxiety, depression Physical Exam Physical Exam: See Dr. Chew's addendum for Physical Examination findings Results & Data Results & Data Vital Signs (Past 12 Hours) Vital Signs Temp Pulse Resp BP Pulse Ox O2 Del Method 04/27/23 14:30 150/73 H 04/27/23 14:30 122 H 17 99 Room Air 04/27/23 14:00 110 H 16 98 Room Air 04/27/23 14:00 133/67 04/27/23 13:52 117 H 23 97 04/27/23 13:52 99/76 L 04/27/23 13:46 96/59 L 04/27/23 13:46 120 H 20 98 04/27/23 13:30 116 H 20 93 04/27/23 13:01 98 Room Air 04/27/23 13:00 110 H 20 99 Room Air 04/27/23 12:37 36.9 C 113 H 18 145/90 H 100 Room Air 04/27/23 12:36 121 H 19 99 Laboratory Results Short CBC 04/27/23 Range/Units 12:42 WBC 8.44 (4.8-10.8) K/ul Hgb 10.0 L (12.0-16.0) g/dl Hct 30.8 L (37.0-47.0) % Plt Count 295 (130-400) K/uL BMP 04/27/23 12:42 Sodium 137 Potassium 5.0 Chloride 104 Carbon Dioxide 23 BUN 24 H Creatinine 1.19 Glucose 219 H Calcium 8.9 Liver Function 04/27/23 Range/Units 12:42 Total Bilirubin 0.9 (0.2-1.0) mg/dl AST 19 (13-39) U/L ALT 17 (7-52) U/L Alkaline Phosphatase 154 H (34-104) U/L Albumin 3.3 L (3.4-5.0) gm/dl Diagnostic Findings Head CT 04/27/23 13:00 CT SCAN OF THE BRAIN WITHOUT IV CONTRAST CLINICAL HISTORY: Fall. COMPARISON STUDY: CT of the brain dated 01/07/2008. TECHNIQUE: Unenhanced axial CT scan of the brain is performed from the vertex to the skull base. A dose lowering technique was utilized adhering to the principles of ALARA. The patient was scanned twice due to motion artifact. FINDINGS: Brain parenchyma: There is age-related involutional change noting mild to moderate subcortical and periventricular microangiopathic disease. There is no hemorrhage, mass effect, or evidence of acute territorial ischemia by CT criteria. There is a tiny chronic lacunar infarct in the left cerebellar hemisphere. Mineralization is noted in the basal ganglia. Rosales-white matter differentiation is preserved. No extra-axial fluid collection is seen. Ventricles, sulci, cisterns: Prominent secondary to involutional change. Intracranial vasculature: There is atherosclerotic calcification of the cavernous carotid and vertebral arteries. Calvarium: The skeletal structures are osteopenic. No depressed calvarial fracture is seen. Sinuses and mastoids: The visualized paranasal sinuses are clear. The mastoid air cells are well pneumatized. Orbits: The bony orbits are grossly intact. There are bilateral ocular lens implants. IMPRESSION: There is no hemorrhage, mass effect, or evidence of acute territorial ischemia by CT criteria. ACT 112: Negative or not required by law. Electronically signed by: Heriberto Kc M.D. 04/27/2023 2:56 PM Knee X-Ray 04/27/23 13:00 XR knee LT 1 or 2V routine CLINICAL HISTORY: Fall. COMPARISON: None FINDINGS: There is a large left knee joint effusion without lipohemarthrosis. No acute fracture is identified. Apparent slight depression of the medial tibial plateau is probably chronic. Chondrocalcinosis within the menisci is present. There is moderate tricompartmental left knee osteoarthritis. Extensive vascular calcification is incidentally noted. IMPRESSION: 1. No acute fractures. 2. Large left knee joint effusion without lipohemarthrosis. 3. Moderate tricompartmental osteoarthritis of the left knee. ACT 112: Negative or not required by law. Electronically signed by: Angel Wood M.D. 04/27/2023 1:57 PM Chest X-Ray 04/27/23 13:01 XR chest 1V portable HISTORY: Chest pain, nonspecific COMPARISON: Chest 03/27/2023. FINDINGS: No pneumothorax. No pleural effusions. Mild interstitial thickening at the lung bases, unchanged. This is likely chronic. Otherwise, lungs are clear. The heart remains mildly enlarged. Degenerative changes within the shoulders. IMPRESSION: No significant change compared to the prior study. No acute process. ACT 112: Negative or not required by law. Electronically signed by: Rian Torres M.D. 04/27/2023 1:58 PM Abdomen/Pelvis CT 04/27/23 13:02 CT OF THE ABDOMEN AND PELVIS WITHOUT CONTRAST CLINICAL HISTORY: fall, left hip pain COMPARISON STUDY: CT of the abdomen and pelvis March 27, 2023. TECHNIQUE: Axial images of the abdomen and pelvis were obtained without IV contrast. Images were reviewed in the axial, sagittal, and coronal planes. Automated exposure control was utilized for the study. A dose lowering technique was utilized adhering to the principles of ALARA. FINDINGS: Please note that the chest CT will be reported separately. No hemoperitoneum or pneumoperitoneum is present. Evaluation of the solid abdominal viscera is suboptimal on this unenhanced exam but there is no evidence for traumatic injury to the liver, spleen, renal glands, kidneys or pancreas. The gallbladder is mildly distended. There are no adjacent infiltration. There is no free fluid. No hydronephrosis. No biliary or pancreatic ductal dilatation is present. There is no evidence for a bowel obstruction. No bowel wall thickening is identified on unenhanced exam. Multiple calcified peritoneal bodies are chronic. There is no lymphadenopathy. No fluid collections are present. No acute fractures are identified within the visualized skeletal structures. There is evidence for pelvic floor relaxation, unchanged. IMPRESSION: 1. No acute traumatic findings within the abdomen or pelvis on unenhanced exam. No acute fractures. 2. Mild gallbladder distention without adjacent infiltration. Acute cholecystitis is considered unlikely however the findings could be correlated with right upper quadrant pain. ACT 112: Negative or not required by law. Electronically signed by: Angel Wood M.D. 04/27/2023 3:[address] 04/27/23 13:02 CT SCAN OF THE CERVICAL SPINE CLINICAL HISTORY: Fall. COMPARISON STUDY: CT angiogram of the neck dated 01/08/2008. TECHNIQUE: CT scan of the cervical spine is performed from the skull base to the upper thoracic spine. Images are reviewed in the axial, sagittal, and coronal planes. IV contrast was not administered for this examination. A dose lowering technique was utilized adhering to the principles of ALARA. FINDINGS: Skeletal structures: The skeletal structures are osteopenic. There is no evidence of fracture or subluxation involving the cervical spine. Vertebral body height and alignment are maintained. There is straightening of the cervical lordosis. Anterior osteophytes are seen throughout. The odontoid process and lateral masses are intact. The atlantoaxial articulation is preserved noting productive degenerative change. The spinous processes appear intact. There is moderate to advanced multilevel cervical spondylosis. Uncovertebral and facet arthropathy contribute to neural foraminal narrowing at most levels. Intervertebral discs: There is moderate disc space narrowing at C5-C6 and C6-C7. Mild narrowing is seen at the remaining cervical levels. Central canal: Posterior disc osteophyte complexes at C5-C6 and C6-C7 may contribute to acquired compromise of the central canal. Soft tissues: The prevertebral and paraspinous soft tissues are within normal limits. There is atherosclerotic calcification of the carotid bulbs. Calvarium: The visualized calvarium at the skull base appears intact. Brain parenchyma: Partially visualized brain parenchyma at the skull base is within normal limits. Sinuses and mastoids: The visualized paranasal sinuses are clear. The mastoid air cells are well pneumatized. Lung apices: Clear as visualized. IMPRESSION: 1. There is no evidence of cervical spine fracture or subluxation. 2. Osteopenia and spondylotic change as above. ACT 112: Negative or not required by law. Electronically signed by: Heriberto Kc M.D. 04/27/2023 3:[address] 04/27/23 13:02 CT chest diagnostic wo con CT DOSE: 3433.87 mGy.cm HISTORY: fall TECHNIQUE: Multiaxial CT images of the chest were performed without contrast. A dose lowering technique was utilized adhering to the principles of ALARA. COMPARISON: Abdomen and pelvis CT 03/27/2023. FINDINGS: No acute fractures within the chest. The abdominal structures will be reported on the same day abdomen and pelvis CT. Normal esophagus. Small hiatus hernia. No pleural or pericardial effusions. The heart remains mildly enlarged. Moderate calcified plaque within the normal caliber thoracic aorta. No mediastinal or hilar lymphadenopathy. No mediastinal hematoma. No pneumothorax. The central airways are patent. Mild interstitial thickening. This is likely chronic. Small focal consolidation within the base of the left lower lobe favors atelectasis. There is a 5 mm indeterminate pulmonary nodule within the right upper lobe on image 54. IMPRESSION: 1. No acute traumatic process within the chest. 2. Mild cardiomegaly, unchanged. 3. Small focal density within the base of the left lower lobe. This favors atelectasis. A pneumonia could also have a similar appearance in the appropriate clinical setting. 4. Mild chronic interstitial thickening. 5. A 5 mm indeterminate pulmonary nodule within the right upper lobe. Please refer to below summary of Fleischner criteria recommendations for follow- up of incidental CT nodules (Camilla Torres, Guidelines for management of small pulmonary nodules detected on CT scans: A statement from the Fleischner Soc iety, Radiology 237: [phone].) SOLID NODULES Solitary nodule size: <6 mm * Low risk patients: no follow-up needed * high risk patients: optional CT at 12 months Solitary nodule size: 6-8 mm * Low risk patients: follow-up at 6-12 months, then consider further follow-up at 18-24 months * high risk patients: initial follow-up CT at 6-12 months and then at 18-24 months if no change Solitary nodule size: >8 mm * either low or high risk patients - consider follow-up CT at 3 months, and/or CT-PET, and/or biopsy Multiple nodules size: <6 mm * Low risk patients: no routine follow-up * high risk patients: optional CT at 12 months Multiple nodules size: 6-8 mm * Low risk patients: follow-up at 3-6 months, then consider further follow-up at 18-24 months * high risk patients: follow-up at 3-6 months, then at 18-24 months if no change Multiple nodules size: >8 mm * Low risk patients: follow-up at 3-6 months, then consider further follow-up at 18-24 months * high risk patients: follow-up at 3-6 months, then at 18-24 months if no change Note: newly detected indeterminate nodule in persons 35 years of age or older. * Low risk patients: minimal or absent history of smoking and/or other known risk factors * high risk patients: history of smoking or of other known risk factors (e.g. first degree relative with lung cancer, or exposure to asbestos, radon, uranium) * if a nodule up to 8 mm is partly solid or is ground glass further follow-up is required after 24 months to exclude possible slow growing adenocarcinoma (WILL) SUBSOLID NODULES Solitary pure ground-glass nodule * nodule size <6 mm - no CT follow-up required * nodule size >=6 mm - follow-up CT at 6-12 months, then every 2 years until 5 years Solitary part-solid nodule * nodule size <6 mm - no CT follow-up required * nodule size >=6 mm - follow-up CT at 3-6 months. If unchanged, and solid component remains <6 mm, then annual follow-up for 5 years Multiple subsolid nodules * nodule size <6 mm - follow-up CT at 3-6 months, consider further follow-up at 2 and 4 years if stable * nodule size >=6 mm - follow-up CT at 3-6 months, subsequent management based on the most suspicious nodule(s) ACT 112: Negative or not required by law. Electronically signed by: Rian Torres M.D. 04/27/2023 3:15 PM Code Status & VTE Plan Code Status DNR/DNI VTE Prophylaxis Plan VTE Prophylaxis will be ordered: Yes Supervising Physician Co-Signing Physician Notes Patient is an 87-year-old female with history of chronic atrial fibrillation, paroxysmal SVT, hyperlipidemia, hypertension, diabetes mellitus, valvular heart disease, chronic diastolic heart failure, recurrent rectal bleed and other medical problems presents with history of left hip and knee pain after sustaining a fall yesterday. Patient denies any head trauma, loss of consciousness. Admits to have ambulatory dysfunction secondary to pain. Patient was evaluated by PCP yesterday and was noted to have low blood pressure and was advised to hold her high blood pressure medications as per patient's son. She was noted to be in A-fib RVR while in ED. Please review HPI for co mplete details of presentation. Blood work suggestive of chronic anemia, glucose elevated to 1 9, magnesium 1.1, alkaline phosphatase 154, normal procalcitonin. Imaging studies showed no acute fractures. Noted right upper lobe pulmonary nodule. Also noted mild gallbladder distention with no gallstones. Left knee x-ray showed large left knee joint effusion, arthritis. EKG showed A-fib RVR, low voltage QRS, QTc 420. Physical Exam: Vitals signs as noted above General Appearance: Elderly, thin, frail, no apparent distress Head: normocephalic, Atraumatic Eyes: normal inspection, EOMI Neck: supple, Trachea midline Respiratory/Chest: Normal breath sounds, CTA, No accessory muscle use Cardiovascular: Irregularly irregular, tachycardic, No murmur Abdomen/GI:Soft, Non tender, protuberant, bowel sounds present Extremities/Musculoskeletal:normal inspection, no edema, left hip, left knee tender, decreased range of movement Neurologic/Psych:AAOX3, grossly no focal neurological deficits Skin: normal color, warm A-fib RVR Generalized weakness, fall Right upper lobe pulmonary nodule Left knee joint effusion Atelectasis Restart metoprolol, Lopressor as needed Patient/family prefers no anticoagulation given recurrent GI bleed. Understand risks versus benefits and agrees with current management Will consider cardiology evaluation if rate uncontrolled Gallbladder not suggestive of acute cholecystitis PT OT, fall precautions May need rehab placement Monitor and adjust blood pressure medications as needed Orthopedics consulted Pain control as needed I personally interviewed and examined at bedside. Patient's care is coordinated with Betty YODER. I have reviewed the advanced practitioner's documentation, and I agree with, and take responsibility for that plan of care. Please refer to the documentation above for details of patient's presentation and for discussion of other issues. I spent a total of-----minutes coordinating, documenting, and providing care for this patient excluding time spent in the performance of separately billed services.
[2023-04-27] MEDS: METOPROLOL TARTRATE 1 MG/ML VIAL IV STA (16:52)
[2023-04-27 17:43] LABS: Magnesium 1.1 mg/dl (1.7-2.4)
[2023-04-27] MEDS: METOPROLOL SUCC 50MG EXT REL TAB PO STA (18:07)
[2023-04-27] MEDS: INSULIN ASPART PER UNIT CHARGE SC SCH (18:08)
[2023-04-27] MEDS: MoRPHine SULFATE 2 MG/ML CARP IV PRN (18:36)
[2023-04-27] MEDS: ACETAMINOPHEN 1,000 MG/100 ML VIAL IV PRN (18:36)
--- NOTE | 2023-04-27 18:40 | CT Scan Report ---
CT SCAN OF THE LEFT HIP WITHOUT IV CONTRAST CLINICAL HISTORY: Fall. Left hip pain. COMPARISON STUDY: Pelvic CT performed earlier the same day 04/27/2023. TECHNIQUE: CT scan of the left hip was performed from the bony pelvis to the femoral shaft. Images ar e reviewed in the axial, sagittal, and coronal planes. IV contrast was not administered for this exam ination. A dose lowering technique was utilized adhering to the principles of ALARA. CT DOSE: 346.29 mGy.cm FINDINGS: The skeletal structures are osteopenic. There is no evidence of acute fracture involving th e left hip or the visualized left hemipelvis. Mild arthritic change is noted in the hip. There is no evidence of avascular necrosis of the left femoral head. There is degenerative sclerosis of the pubic symphysis. No lytic or blastic lesion is seen. There is mild atrophy of the regional musculature. No soft tissue hematoma is seen. The bladder is mildly distended but otherwise normal as imaged. There is no left pelvic sidewall or inguinal lymphadenopathy. Advanced atherosclerotic calcification is not ed in the left femoral artery. IMPRESSION: No fracture is identified. ACT 112: Negative or not required by law. Dictated: 04/27/2023 6:24 PM Transcribed: 04/27/2023 6:30 PM Serge [id number] [email or web address] Electronically signed by: Heriberto Kc M.D. 04/27/2023 6:38 PM
--- NOTE | 2023-04-27 18:51 | Ultrasound Report ---
ULTRASOUND RIGHT UPPER QUADRANT ABDOMEN CLINICAL HISTORY: Right upper quadrant abdominal pain. COMPARISON STUDY: Abdominal CT performed the same day 04/27/2023. TECHNIQUE: Real-time, grayscale, and color flow sonography of the right upper quadrant of the abdomen was performed. Images are reviewed in the transverse and longitudinal planes. FINDINGS: Liver: The liver is normal in size and echotexture. There is no intrahepatic biliary ductal dilatatio n. The main portal vein is patent. Gallbladder: The gallbladder is distended. No shadowing gallstones are identified. There is no gallbl adder wall thickening or pericholecystic fluid. A sonographic Gardner's sign is reportedly absent. The common bile duct measures up to 0.7 cm in diameter. Pancreas: Not visualized due to overlying bowel gas. Right kidney: Survey images of the right kidney demonstrate cortical atrophy. Echotexture appears inc reased suggesting medical renal disease. There is no hydronephrosis. Ascites: None. IMPRESSION: 1. Distended gallbladder with no gallstones identified and no sonographic evidence of acute cholecyst itis. 2. There is no intra or extrahepatic biliary ductal dilatation. 3. Nonvisualization of the pancreas. ACT 112: Negative or not required by law. Electronically signed by: Heriberto Kc M.D. 04/27/2023 6:49 PM
[2023-04-27] MEDS: LORazepam 0.5 MG TAB PO SCH (20:33)
[2023-04-27] MEDS: MAGNESIUM SULFATE / D5W 1 GM/100 ML BAG IV SCH (21:05)
[2023-04-27] MEDS: LANTUS PER UNIT CHARGE SQ SCH (21:05)
[2023-04-27] MEDS: METOPROLOL SUCC 50MG EXT REL TAB PO SCH (21:10)
[2023-04-27] MEDS: FERROUS SULFATE 325 MG TAB PO SCH (21:10)
[2023-04-27] MEDS: HEPARIN SOD 5,000 UNIT/0.5 ML VIAL SQ SCH (22:22)
--- OUTSIDE RECORDS SUMMARY | 2023-04-27 23:09 | External Medical Summary | Summary of Care ---
Author Name Unknown Organization [facility] Address [address] [place] [address] Phone [phone] Care Team Providers Care Mobile Disc Jockey Name Role Phone Priyanka Falcon MD Primary Care Prov ider Encounter Details Date Type Department Care Team (Late st Contact Info) Description 04/20/2023 Orders Only [facility] [place] [address] [place], [place] [id number] Kristal Brown PA-C [address] [place] [address] Essential hypertension with goal blood pressure less than 140/90; Dyslipidemia, goal LDL below 70; Vitamin B deficiency; Type 2 diabetes mellitus with hemoglobin A1c goal of less than 7.5% ([facility]); Bilateral low back pain without sciatica, unspecified chronicity; Persistent insomnia Allergies Active Allergy Reactions Criticality Noted Date Comments Naproxen Sodium Bleeding High 12/03/2009 Hs of GI bleed Aspirin Bleeding High 12/03/2009 Doxycycline Neuro complications (Please comment) Medium 10/23/2010 Hallucinations Ibuprofen Bleeding High 12/03/2009 Hx of GI bleed Nitrofurantoin Monohydrate Macrocrystals Neuro complications (Please comment) Low 09/16/2009 Headaches Dapoerlc-Marrvcztm-Rd 01/25/2011 Caused eye problems Neosporin 05/30/2003 rash Sulfa Antibiotics 05/11/2002 nausea & vomiting Tramadol Hcl Unknown 12/03/2009 Triamterene 11/16/2022 ulcers documented as of this encounter (statuses as of 04/20/2023) Medications Medication Sig Dispensed Refills Start Date End Date Status Triamcinolone Acetonide 0.1 % External Cream (Aristocort)Indica [...] Dx e11.9 1 Kit 0 05/14/2021 Active OneTouch Delica Plus [id number] ns:Type 2 diabetes mellitus with hemoglobin A1c goal of less than 7.5% (HCC) Use as directed. Use to test blood sugar once a day DX e11.9 100 Each 3 09/10/2022 Active OneTouch Ultra In Vitro Strip (Glucose Blood)Indications: Type 2 diabetes mellitus with hemoglobin A1c goal of less than 7.0% (HCC) USE TO TEST ONCE PER DAY. E11.9 100 Strip 5 12/08/2022 Active amLODIPine Besylate 2.5 MG Oral Tablet (Norvasc)Indicatio ns:Essential hypertension with goal blood pressure less than 140/90 TAKE 1 TABLET BY MOUTH EVERY DAY IN THE MORNING 30 Tablet 0 04/20/2023 Active Atorvastatin Calcium 80 MG Oral Tablet (Lipitor)Indicatio ns:Dyslipidemia, goal LDL below 70 TAKE 1 TABLET BY MOUTH EVERY DAY IN THE MORNING 90 Tablet 3 04/20/2023 Active Boost Breeze Oral Liquid Take 240 mL by mouth daily. 240 mL 0 04/20/2023 Active Cyanocobalamin 1000 MCG Oral Tablet ([facility] Vitamin B-12)Indications:V itamin B deficiency Take 1 Tablet by mouth in the morning. 30 Tablet 0 04/20/2023 Active Docusate Sodium 100 MG Oral Capsule (Colace) Take 1 Capsule by mouth 2 times a day as needed for Constipation. 60 Capsule 0 04/20/2023 Active Ferrous Sulfate 325 (65 Fe) MG Oral Tablet (Feosol) Take 1 Tablet by mouth 2 times a day with morning and evening meals. 60 Tablet 0 04/20/2023 Active Furosemide 40 MG Oral Tablet (Lasix) One tablet by mouth three days a week 30 Tablet 0 04/20/2023 Active glipiZIDE ER 2.5 MG Oral Tablet Extended Release 24 Hour (Glucotrol XL)Indications:Typ e 2 diabetes mellitus with hemoglobin A1c goal of less than 7.5% (HCC) TAKE 1 TABLET BY MOUTH DAILY 30 MINUTES BEFORE A MEAL 90 Tablet 1 04/20/2023 Active HYDROcodone-Acetam inophen 5-325 MG Oral TabletIndications: Bilateral low back pain without sciatica, unspecified chronicity Take 1 Tablet by mouth 2 times a day as needed for Pain, Severe. 40 Tablet 0 04/20/2023 Active Lisinopril 10 MG Oral Tablet (Prinivil) Take 1 Tablet by mouth in the morning. 30 Tablet 0 04/20/2023 Active LORazepam 0.5 MG Oral Tablet (Ativan)Indication s:Persistent insomnia One tablet by mouth every bedtime and one daily as needed anxiety 60 Tablet 0 04/20/2023 Active Magnesium Chloride 64 MG Oral Tablet Delayed Release (Mag64) Two tablets in the morning , one tablet in the evening 90 Tablet 0 04/20/2023 Active metFORMIN HCl 500 MG Oral Tablet (Glucophage)Indica tions:Type 2 diabetes mellitus with hemoglobin A1c goal of less than 7.5% (HCC) TAKE 1 TABLET BY MOUTH TWICE A DAY WITH BREAKFAST AND SUPPER 60 Tablet 0 04/20/2023 Active Metoprolol Succinate ER 100 MG Oral Tablet Extended Release 24 Hour (toPROL XL)Indications:Ess ential hypertension with goal blood pressure less than 140/90 TAKE 1 TABLET BY MOUTH IN THE MORNING AND 1/2 TABLET DAILY AT BEDTIME 45 Tablet 0 04/20/2023 Active Pantoprazole Sodium 40 MG Oral Tablet Delayed Release (Protonix) One daily 90 Tablet 1 04/20/2023 Active Potassium Chloride Domenica ER 20 MEQ Oral Tablet Extended Release Take 1 Tablet by mouth in the morning. 30 Tablet 0 04/20/2023 Active Vitamin D3 25 MCG (1000 UT) Oral Capsule Take 1 Capsule by mouth daily. 30 Capsule 0 04/20/2023 Active [facility] VITAMIN B12 1000 MCG PO TABSIndications:Vi tamin B deficiency 1 TABLET DAILY 1 Tab 0 04/27/2010 4 Discontinue d(Refill) metFORMIN HCl 500 MG Oral Tablet (Glucophage)Indica tions:Type 2 diabetes mellitus with hemoglobin A1c goal of less than 7.5% (HCC) TAKE 1 TABLET BY MOUTH TWICE A DAY WITH BREAKFAST AND SUPPER 180 Tablet 1 09/08/2022 4 Discontinue d(Refill) Atorvastatin Calcium 80 MG Oral Tablet (Lipitor)Indicatio ns:Dyslipidemia, goal LDL below 70 TAKE 1 TABLET BY MOUTH EVERY DAY IN THE MORNING 90 Tablet 3 11/21/2022 4 Discontinue d(Refill) glipiZIDE ER 2.5 MG Oral Tablet Extended Release 24 Hour (Glucotrol XL)Indications:Typ e 2 diabetes mellitus with hemoglobin A1c goal of less than 7.5% (HCC) TAKE 1 TABLET BY MOUTH DAILY 30 MINUTES BEFORE A MEAL 90 Tablet 1 12/26/2022 4 Discontinue d(Refill) amLODIPine Besylate 2.5 MG Oral Tablet (Norvasc)Indicatio ns:Essential hypertension with goal blood pressure less than 140/90 TAKE 1 TABLET BY MOUTH EVERY DAY IN THE MORNING 90 Tablet 3 12/29/2022 4 Discontinue d(Refill) Metoprolol Succinate ER 100 MG Oral Tablet Extended Release 24 Hour (toPROL XL)Indications:Ess ential hypertension with goal blood pressure less than 140/90 TAKE 1 TABLET BY MOUTH IN THE MORNING AND 1/2 TABLET DAILY AT BEDTIME 135 Tablet 1 02/15/2023 4 Discontinue d(Refill) Ferrous Sulfate 325 (65 Fe) MG Oral Tablet (Feosol) Take 1 Tablet by mouth 2 times a day with morning and evening meals. 0 03/11/2023 4 Discontinue d(Refill) Pantoprazole Sodium 40 MG Oral Tablet Delayed Release (Protonix) One daily 90 Tablet 1 03/27/2023 4 Discontinue d(Refill) LORazepam 0.5 MG Oral Tablet (Ativan)Indication s:Persistent insomnia One tablet by mouth every bedtime and one daily as needed anxiety 60 Tablet 0 04/04/2023 4 Discontinue d(Refill) Potassium Chloride Domenica ER 20 MEQ Oral Tablet Extended Release Take 1 Tablet by mouth in the morning. 0 04/04/2023 4 Discontinue d(Refill) HYDROcodone-Acetam inophen 5-325 MG Oral TabletIndications: Bilateral low back pain without sciatica, unspecified chronicity Take 1 Tablet by mouth 2 times a day as needed for Pain, Severe. 40 Tablet 0 04/06/2023 4 Discontinue d(Refill) Lisinopril 10 MG Oral Tablet (Prinivil) Take 1 Tablet by mouth in the morning. 0 04/18/2023 4 Discontinue d(Refill) Magnesium Chloride 64 MG Oral Tablet Delayed Release (Mag64) Two tablets in the morning , one tablet in the evening 0 04/18/2023 4 Discontinue d(Refill) Vitamin D3 25 MCG (1000 UT) Oral Capsule Take 1 Capsule by mouth daily. 0 04/20/2023 4 Discontinue d(Refill) Docusate Sodium 100 MG Oral Capsule (Colace) Take 1 Capsule by mouth 2 times a day as needed for Constipation. 0 04/20/2023 4 Discontinue d(Refill) Furosemide 40 MG Oral Tablet (Lasix) One tablet by mouth three days a week 0 04/20/2023 4 Discontinue d(Refill) Boost Breeze Oral Liquid Take 240 mL by mouth daily. 0 04/20/2023 4 Discontinue d(Refill) documented as of this encounter (statuses as of 04/20/2023) Active Problems Problem Noted Date Diagnosed Date History of 2019 novel coronavirus disease (COVID -19) 04/04/2023 Full code status 04/04/2023 Typical atrial flutter 03/29/2022 Seborrheic keratosis 06/01/2021 Type 2 diabetes mellitus wit h stage 3b chronic kidney disease, without long-term current use of insulin 05/28/2020 Hypertensive kidney disease with stage 3b chronic kidney disease 01/20/2020 Overview: Per CKD protocol Pedal edema 08/09/2019 Arthritis of foot 05/17/2019 PAF (paroxysmal atrial fibrillation) 04/09/2019 Right carotid bruit 12/29/2018 Overview: 25% stenosis and thick plaque seen 12/2018. Recommend repeating carotid duplex in 1 year. Atrial flutter 12/29/2018 Primary osteoarthritis of left knee 04/03/2017 Essential hypertension with goal blood pressure less than 140/90 02/10/2016 Hypomagnesemia 12/23/2015 Type 2 diabetes mellitus wit h hemoglobin [...] as of this encounter (statuses as of 04/20/2023) Resolved Problems Problem Noted Date Diagnosed Date Resolved Date Heart failure, diastolic, wi th acute decompensation 04/05/2023 04/05/2023 Atrial flutter, unspecified type 12/27/2021 02/08/2022 Chronic kidney disease, stage 3a 07/21/2020 03/23/2023 Overview: Per CKD protocol Diabetes mellitus with stage 3 chronic kidney disease 01/20/2020 04/05/2023 Overview: Per CKD protocol Anemia due to stage 3b chronic kidney disease 01/20/20 20 04/05/2023 Overview: Per CKD protocol Anemia due to [...] 01/24/201701/11 Chronic kidney disease (CKD) 10/27/2016 01/24/2017 ADVANCE DIRECTIVE INFORMATION 11/05/2015 01/24/2017 Overview: No, [...] as of this encounter (statuses as of 04/20/2023) Immunizations Name Administration Dates Next Due COVID-19 [...] Care Team (Late st Contact Info) Description 04/26/2023 11:10 AM EST Office Visit Family Medicine [address] [place] [phone] [place] [phone] 06/05/2023 2:00 PM EDT Office Visit Gastroenterology, [facility] [address] [place] [id number] Jen Salgado CRNP [address] [place] [id number] 07/04/2023 11:30 AM EDT Office Visit Family Medicine [address] [place] [phone] Liliane [address] [place] [phone] 07/27/2023 1:30 PM EDT Office Visit Cardiology [address] [place] [phone] Cameron Becerra PAJose FranciscoC [address] [place] [address] 12/05/2023 2:30 PM EDT Office Visit Nephrology [address] [place] [address] Radha Wyman PA-C [address] [place] [address] Health Maintenance Due Date Last Done Comments Hepatitis B (1 of 3 - Risk 3-dose series) 1994 Depression Screening 08/03/2021 08/03/2020 Diabetic Foot Exam 02/08/2023 02/08/2022, 0 05/28/2020, 05/17/2019, Additional history exists Diabetic Eye Exam 03/15/2023 03/15/2022, , 11/03/2020, Additional history exists HbA1c 10/13/2023 04/14/2023, 11/2022, 11/16/2022, Additional history exists Albumin/Creatinine Ratio 11/17/2023 023, 03/29/2022, 01/06/2021, Additional history exists CKD PHOS USE SMARTSET 35617 03/22/202403/13, 01/19/2023, 11/21/2022, Additional history exists CKD HGB USE SMARTSET 36865 04/17/202404/17, 04/10/2023, 04/10/2023, Additional history exists DXA Scan 12/09/2027 12/08/2020, [...] with goal blood pressure less than 140/90 Dyslipidemia, goal LDL below 70 Other and unspecified hyperlipidemia Vitamin B deficiency Unspecified vitamin B deficiency Type 2 diabetes mellitus with hemoglobin A1c goal of less than 7.5% (HCC) Bilateral low back pain without sciatica, unspecified chronicity Persistent insomnia Persistent disorder of initiating or maintaining sleep documented in this encounter Care Teams Mobile Disc Jockey Relationship Specialty Start Date End Date Priyanka Falcon MD [address] [place] [address] [place] [id number] PCP - General Family Medicine 01/04/19 documented as of this encounter
--- OUTSIDE RECORDS SUMMARY | 2023-04-27 23:09 | External Medical Summary ---
Author Name Unknown Address Unknown Organization [facility] [address] [place] [address] Laboratory Report Ordering Provider Test Date Status TERRANCE ARREOLA 04/26/2023 12:06:28 Final Observation Date Value Abnormality Reference (Units ) Status Magnesium 04/26/2023 12:06:28 1.4 Below low normal 1.5 -2.6 (mg/dL) Final Performing Location [facility] [address] [place] [id number]
--- OUTSIDE RECORDS SUMMARY | 2023-04-27 23:09 | External Medical Summary | Summary of Care ---
Author Name Unknown Organization [facility] Address [address] [place] [address] Phone [phone] Care Team Providers Care Soil Sort Worker Name Role Phone Priyanka Falcon MD Primary Care Prov ider Reason for Visit * Reason Onset Date Comments Hospital Follow-Up Pt states fee ling "pretty good". Pt denies any concerns. Pt's son states she's feeling anxious. Hospital Follow-Up 04/26/2023 Encounter Details Date Type Department Care Team (Late st Contact Info) Description 04/26/2023 11:10 AM EST Office Visit Family Medicine [address] [place] [place] [address] [address] [place] [address] Hospital discharge follow-up*; Congestive heart failure, unspecified HF chronicity, unspecified heart failure type (HCC); Hypomagnesemia; Essential hypertension with goal blood pressure less than 140/90; Vitamin B12 deficiency; Iron deficiency anemia due to chronic blood loss; Generalized weakness; Type 2 diabetes mellitus with hemoglobin A1c goal of less than 7.5% (HCC) Allergies Active Allergy Reactions Criticality Noted Date Comments Naproxen Sodium Bleeding High 12/03/2009 Hs of GI bleed Aspirin Bleeding High 12/03/2009 Doxycycline Neuro complications (Please comment) Medium 10/23/2010 Hallucinations Ibuprofen Bleeding High 12/03/2009 Hx of GI bleed Nitrofurantoin Monohydrate Macrocrystals Neuro complications (Please comment) Low 09/16/2009 Headaches Vkjtjpar-Nolnngcot-Ld 01/25/2011 Caused eye problems Neosporin 05/30/2003 rash Sulfa Antibiotics 05/11/2002 nausea & vomiting Tramadol Hcl Unknown 12/03/2009 Triamterene 11/16/2022 ulcers documented as of this encounter (statuses as of 04/26/2023) Medications Medication Sig Dispensed Refills Start Date End Date Status Triamcinolone Acetonide 0.1 % External Cream (Aristocort)Indic ations:Allergic contact dermatitis due to drugs in contact with skin APPLY TO THE AFFECTED AREA 2 TIMES A DAY NEEDED FOR ITCHING 30 g 2 1 Active Thoughtly Flex System w/Device KitIndications:Ty pe 2 diabetes mellitus with hemoglobin A1c goal of less than 7.5% (HCC) Use as directed . Use to test blood sugar Dx e11.9 1 Kit 0 2 Active amLODIPine Besylate 2.5 MG Oral Tablet (Norvasc)Indicati ons:Essential hypertension with goal blood pressure less than 140/90 TAKE 1 TABLET BY MOUTH EVERY DAY IN THE MORNING 30 Tablet 0 4 Active Atorvastatin Calcium 80 MG Oral Tablet (Lipitor)Indicati ons:Dyslipidemia, goal LDL below 70 TAKE 1 TABLET BY MOUTH EVERY DAY IN THE MORNING 90 Tablet 3 4 Active Boost Breeze Oral Liquid Take 240 mL by mouth daily. 240 mL 0 4 Active Cyanocobalamin 1000 MCG Oral Tablet ([facility] Vitamin B-12)Indications: Vitamin B deficiency Take 1 Tablet by mouth in the morning. 30 Tablet 0 4 Active Furosemide 40 MG Oral Tablet (Lasix) One tablet by mouth three days a week 30 Tablet 0 4 Active glipiZIDE ER 2.5 MG Oral Tablet Extended Release 24 Hour (Glucotrol XL)Indications:Ty pe 2 diabetes mellitus with hemoglobin A1c goal of less than 7.5% (HCC) TAKE 1 TABLET BY MOUTH DAILY 30 MINUTES BEFORE A MEAL 90 Tablet 1 4 Active HYDROcodone-Aceta minophen 5-325 MG Oral TabletIndications :Bilateral low back pain without sciatica, unspecified chronicity Take 1 Tablet by mouth 2 times a day as needed for Pain, Severe. 40 Tablet 0 4 Active Lisinopril 10 MG Oral Tablet (Prinivil) Take 1 Tablet by mouth in the morning. 30 Tablet 0 4 Active LORazepam 0.5 MG Oral Tablet (Ativan)Indicatio ns:Persistent insomnia One tablet by mouth every bedtime and one daily as needed anxiety 60 Tablet 0 4 Active metFORMIN HCl 500 MG Oral Tablet (Glucophage)Indic ations:Type 2 diabetes mellitus with hemoglobin A1c goal of less than 7.5% (HCC) TAKE 1 TABLET BY MOUTH TWICE A DAY WITH BREAKFAST AND SUPPER 60 Tablet 0 4 Active Metoprolol Succinate ER 100 MG Oral Tablet Extended Release 24 Hour (toPROL XL)Indications:Es sential hypertension with goal blood pressure less than 140/90 TAKE 1 TABLET BY MOUTH IN THE MORNING AND 1/2 TABLET DAILY AT BEDTIME 45 Tablet 0 4 Active Pantoprazole Sodium 40 MG Oral Tablet Delayed Release (Protonix) One daily 90 Tablet 1 4 Active Potassium Chloride Domenica ER 20 MEQ Oral Tablet Extended Release Take 1 Tablet by mouth in the morning. 30 Tablet 0 4 Active Vitamin D3 25 MCG (1000 UT) Oral Capsule Take 1 Capsule by mouth daily. 30 Capsule 0 4 Active OneTouch Delica Plus [id number] ons:Type 2 diabetes mellitus with hemoglobin A1c goal of less than 7.5% (HCC) Use as directed. Use to test blood sugar once a day DX e11.9 100 Each 3 4 Active OneTouch Verio In Vitro Strip (Glucose Blood)Indications :Type 2 diabetes mellitus with hemoglobin A1c goal of less than 7.5% (HCC) Use to test blood sugar once a day DX e11.9 100 Strip 3 4 Active Docusate Sodium 100 MG Oral Capsule (Colace) Take 1 Capsule by mouth 2 times a day as needed for Constipation. 90 Capsule 1 4 Active Ferrous Sulfate 325 (65 Fe) MG Oral Tablet (Feosol) Take 1 Tablet by mouth 2 times a day with morning and evening meals. 180 Tablet 1 4 Active Magnesium Chloride 64 MG Oral Tablet Delayed Release (Mag64) Two tablets in the morning , one tablet in the evening 270 Tablet 1 4 Active OneTouch Verio In Vitro Strip (Glucose Blood)Indications :Type 2 diabetes mellitus with hemoglobin A1c goal of less than 7.5% (HCC) Use to test blood sugar once a day DX e11.9 100 Strip 3 2 04/26/19 24 Discontinued OneTouch Delica Plus [id number] ons:Type 2 diabetes mellitus with hemoglobin A1c goal of less than 7.5% (HCC) Use as directed. Use to test blood sugar once a day DX e11.9 100 Each 3 3 04/26/19 24 Discontinued(Ref ill) OneTouch Ultra In Vitro Strip (Glucose Blood)Indications :Type 2 diabetes mellitus with hemoglobin A1c goal of less than 7.0% (HCC) USE TO TEST ONCE PER DAY. E11.9 100 Strip 5 3 04/26/19 24 Discontinued Docusate Sodium 100 MG Oral Capsule (Colace) Take 1 Capsule by mouth 2 times a day as needed for Constipation. 60 Capsule 0 4 04/26/19 24 Discontinued(Ref ill) Ferrous Sulfate 325 (65 Fe) MG Oral Tablet (Feosol) Take 1 Tablet by mouth 2 times a day with morning and evening meals. 60 Tablet 0 4 04/26/19 24 Discontinued(Ref ill) Magnesium Chloride 64 MG Oral Tablet Delayed Release (Mag64) Two tablets in the morning , one tablet in the evening 90 Tablet 0 4 04/26/19 24 Discontinued(Ref ill) documented as of this encounter (statuses as of 04/26/2023) Active Problems Problem Noted Date Diagnosed Date Heart failure 04/26/2023 History of 2019 novel coronavirus disease (COVID [...] as of this encounter (statuses as of 04/26/2023) Resolved Problems Problem Noted Date Diagnosed Date [...] LOC PRIM OSTEOART-PELVIS 10/07/2002 BENIGN HYPERTENSION 06/24/2002 11/06/20 09 Overview: Modified per HTN Taxonomy. IRON [...] as of this encounter (statuses as of 04/26/2023) Immunizations Name Administration Dates Next Due COVID-19 [...] Sign Reading Time Taken Comments Blood Pressure 95/39 04/26/2023 11:02 AM EST Pulse 102 04/26/2023 11:02 AM EST Temperature 35.6 C (96.1 F) 04/26/2023 1 1:02 AM EST Respiratory Rate - - Oxygen Saturation - - Inhaled Oxygen Concentration - - Weight 60.7 kg (133 lb 12.8 oz) 024 11:02 AM EST Height - - Body Mass Index 24.46 12/08/2022 2:23 PM EDT documented in this encounter Patient Instructions * Patient Instructions* Liliane Lobato DO - 04/26/2023 11:29 AM EST Stop taking the lasix for the next few days. You can restart it if on Monday, Monday, Monday IF you develop swelling in your legs again. Do not take your amlopidine or lisinopril today or tomorrow. Metoprolol - take 1/2 a pill today. Resume your normal dosing tomorrow. documented in this encounter Progress Notes * Liliane Lobato DO - 04/26/2023 11:11 AM EST SUBJECTIVE: Cristine Benitez is a 87 year old female. Chief Complaint Patient presents with Hospital Follow-Up Pt states feeling "pretty good". Pt denies any concerns. Pt's son states she's feeling anxious. Hospital Follow-Up Recent Admission: Patient was recently admitted to [facility] report received and reviewed. Admitted to the hospital for weakness due to acute blood loss anemia and COVID infection. She is not on anticoagulation for her A-fib due to her history of GI bleed. Lasix was resume due to weight gain and LE edema. HPI: Cristine Benitez presents today with her son for HD follow up. She lives by herself but her son visits her every day. She also has home health involved - [facility]. LE is improved. She is taking lasix 40 mg every day except Monday and Monday. Two days ago she began feeling dizzy and weak. She has not noticed any further bleeding. She did not take any medication today, including her BP medicine. She is going to see GI at the end of May to discuss capsule endoscopy. Appetite is fair. Weight is down significantly. She does feel lightheadedness. She is using a walker to ambulate and will be getting home physical therapy soon. She would like a refill of her test strips and lancets. Her son would like home health to draw her blood if possible. BS are doing well - low 100s. No symptomatic low blood sugars. She is taking her magnesium as prescribed. She has not been able to tolerate the Tubigrip due to discofort. Patient Active Problem List Diagnosis Code Paroxysmal atrial tachycardia I47.19 Vitamin B12 deficiency E53.8 Generalized osteoarthritis M15.9 History of breast cancer Z85.3 Paroxysmal VT (HCC) I47.29 Spinal stenosis of lumbar region without neurogenic claudication M48.061 Anxiety state F41.1 DYSLIPIDEMIA, GOAL LDL BELOW 100 E78.5 Low HDL (under 40) E78.6 Type 2 diabetes mellitus with hemoglobin A1c goal of less than 7.5% ([facility]) E11.9 Hypomagnesemia E83.42 Essential hypertension with goal blood pressure less than 140/90 I10 Primary osteoarthritis of left knee M17.12 Right carotid bruit R09.89 Atrial flutter ([facility]) I48.92 PAF (paroxysmal atrial fibrillation) ([facility]) I48.0 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 Pedal edema R60.0 Hypertensive kidney disease with stage 3b chronic kidney disease ([facility]) I12.9, N18.32 Type 2 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 disease, without long-term current use of insulin ([facility]) E11.22, N18.32 Seborrheic keratosis L82.1 Typical atrial flutter ([facility]) I48.3 History of 2019 novel coronavirus disease (COVID-19) Z86.16 Full code status Z78.9 Current Outpatient Medications Medication Sig Dispense Refill Triamcinolone Acetonide 0.1 % External Cream (Aristocort) APPLY TO THE AFFECTED AREA 2 TIMES A DAY NEEDED FOR ITCHING 30 g 2 OneTouch Verio In Vitro Strip (Glucose Blood) Use to test blood sugar once a day DX e11.9 100 Strip3 OneTouch Verio Flex System w/Device Kit Use as directed . Use to test blood sugar Dx e11.9 1 Kit 0 OneTouch Delica Plus [id number] Use as directed. Use to test blood sugar once a day DX e11.9 100 Each 3 OneTouch Ultra In Vitro Strip (Glucose Blood) USE TO TEST ONCE PER DAY. E11.9 100 Strip 5 amLODIPine Besylate 2.5 MG Oral Tablet (Norvasc) TAKE 1 TABLET BY MOUTH EVERY DAY IN THE MORNING 30Tablet 0 Atorvastatin Calcium 80 MG Oral Tablet (Lipitor) TAKE 1 TABLET BY MOUTH EVERY DAY IN THE MORNING 90Tablet 3 Boost Breeze Oral Liquid Take 240 mL by mouth daily. 240 mL 0 Cyanocobalamin 1000 MCG Oral Tablet ([facility] Vitamin B-12) Take 1 Tablet by mouth in the morning. 30 Tablet 0 Docusate Sodium 100 MG Oral Capsule (Colace) Take 1 Capsule by mouth 2 times a day as needed for Constipation. 60 Capsule 0 Ferrous Sulfate 325 (65 Fe) MG Oral Tablet (Feosol) Take 1 Tablet by mouth 2 times a day with morning and evening meals. 60 Tablet 0 Furosemide 40 MG Oral Tablet (Lasix) One tablet by mouth three days a week 30 Tablet 0 glipiZIDE ER 2.5 MG Oral Tablet Extended Release 24 Hour (Glucotrol XL) TAKE 1 TABLET BY MOUTH DAILY 30 MINUTES BEFORE A MEAL 90 Tablet 1 HYDROcodone-Acetaminophen 5-325 MG Oral Tablet Take 1 Tablet by mouth 2 times a day as needed for Pain, Severe. 40 Tablet 0 Lisinopril 10 MG Oral Tablet (Prinivil) Take 1 Tablet by mouth in the morning. 30 Tablet 0 LORazepam 0.5 MG Oral Tablet (Ativan) One tablet by mouth every bedtime and one daily as needed anxiety 60 Tablet 0 Magnesium Chloride 64 MG Oral Tablet Delayed Release (Mag64) Two tablets in the morning , one tablet in the evening 90 Tablet 0 metFORMIN HCl 500 MG Oral Tablet (Glucophage) TAKE 1 TABLET BY MOUTH TWICE A DAY WITH BREAKFAST ANDSUPPER 60 Tablet 0 Metoprolol Succinate ER 100 MG Oral Tablet Extended Release 24 Hour (toPROL XL) TAKE 1 TABLET BY MOUTH IN THE MORNING AND 1/2 TABLET DAILY AT BEDTIME 45 Tablet 0 Pantoprazole Sodium 40 MG Oral Tablet Delayed Release (Protonix) One daily 90 Tablet 1 Potassium Chloride Domenica ER 20 MEQ Oral Tablet Extended Release Take 1 Tablet by mouth in the morning. 30 Tablet 0 Vitamin D3 25 MCG (1000 UT) Oral Capsule Take 1 Capsule by mouth daily. 30 Capsule 0 No current facility-administered medications for this visit. Current and discharge medications have been reconciled. Review of patient's allergies indicates: Allergen Reactions Aleve [Naproxen Sodium] Bleeding Hs of GI bleed Aspirin Bleeding Ibuprofen Bleeding Hx of GI bleed Doxycycline Neuro complications (Please comment) Hallucinations Ehavrkhx-Lemmzztgz-Rx [Kizixmzm-Otpdbbfkj-Vm] Caused eye problems Neosporin rash Sulfa Antibiotics nausea & vomiting Tramadol Hcl Unknown Triamterene ulcers Macrobid [Nitrofurantoin Monohydrate Macrocrystals] Neuro complications (Please comment) Headaches OBJECTIVE: BP 95/39 | Pulse 102 | Temp 35.6 C (96.1 F) | Wt 60.7 kg (133 lb 12.8 oz) | BMI 24.46 kg/m | BSA 1.63 m Review Of Systems: Skin: negative Eyes: negative Ears/Nose/Throat: negative Respiratory: negative Cardiovascular: see HPI Gastrointestinal: negative Genitourinary: negative Musculoskeletal: negative Neurologic: see HPI Psychiatric: negative Hematologic/Lymphatic/Immunologic: negative Endocrine: negative PHYSICAL EXAM: General: alert, healthy, no distress, well nourished, and well developed Neck: supple, no adenopathy, thyroid normal size, non-tender, without nodularity Heart: regular rate & rhythm and no murmur Lungs: chest symmetric with normal AP diameter, no chest deformities noted, normal respiratory rateand rhythm, lungs clear to auscultation Abdomen: abdomen soft and non-tender Extremities: no joint deformities, effusion, or inflammation, no edema Neuro Exam: alert & oriented x 3 with fluent speech, no focal motor/sensory deficits, gait normal Skin: skin color, texture, turgor are normal, no rashes or significant lesions ASSESSMENT/PLAN: Hospital discharge follow-up (Primary) - DISCH MED RECON CUR MED LIS Congestive heart failure, unspecified HF chronicity, unspecified heart failure type (HCC) - she is taking her lasix 5 days per week, but chart says three days per week and I feel that she may be volume depleted. Hypomagnesemia - continue magnesium supplement. - MAGNESIUM; Future; Expected date: 04/26/2023 Essential hypertension with goal blood pressure less than 140/90 - BP is low today. Hold BP amlodipine and lisinopril today and tomorrow. Reduced dose of metoprolol today - BASIC METABOLIC PANEL; Future; Expected date: 04/26/2023 Vitamin B12 deficiency Iron deficiency anemia due to chronic blood loss - on iron supplement and seems to be tolerating this okay - CBC WITH WBC DIFFERENTIAL AND ANEMIA REFLEX WORKUP; Future; Expected date: 04/26/2023 Generalized weakness - 3 recent hospitalizations and 2 rehab stays. Improving. Has home health PT involved. Type 2 diabetes mellitus with hemoglobin A1c goal of less than 7.5% ([facility]) - A1c inaccurate due to her blood loss. - OneTouch Delica Plus [id number]; Use as directed. Use to test blood sugar once a day DX e11.9 - OneTouch Verio In Vitro Strip (Glucose Blood); Use to test blood sugar once a day DX e11.9 Other orders - Docusate Sodium 100 MG Oral Capsule (Colace); Take 1 Capsule by mouth 2 times a day as needed forConstipation. - Ferrous Sulfate 325 (65 Fe) MG Oral Tablet (Feosol); Take 1 Tablet by mouth 2 times a day with morning and evening meals. - Magnesium Chloride 64 MG Oral Tablet Delayed Release (Mag64); Two tablets in the morning , one tablet in the evening Follow-up: Return in about 1 week (around 05/03/2023). | Check-out note: 1 week with me for a HD spot I spent a total of 40-54 minutes (exact time 46 mins) minutes on the date of service in preparation, delivery, and documentation of the care provided to Cristine Benitez excluding any time spent in performance of separately billed services. Liliane Lobato DO documented in this encounter Plan of Treatment Upcoming Encounters Date Type Department Care Team (Late st Contact Info) Description 05/03/2023 11:10 AM EST Office Visit Family Medicine [address] [place] [phone] Liliane Lobato [address] [place] [phone] 06/05/2023 2:00 PM EDT Office Visit Gastroenterology, [facility] [address] [facility] [place] [address] Jen Salgado CRNP [address] [place] [address] 07/04/2023 11:30 AM EDT Office Visit Family Medicine [address] [place] [phone] Liliane Lobato [address] [place] [address] 07/27/2023 1:30 PM EDT Office Visit Cardiology [address] [place] [address] Cameron Becerra PA-C [address] [place] [address] 12/05/2023 2:30 PM EDT Office Visit Nephrology [address] [place] [address] Radha Wyman PA-C [address] [place] [id number] Pending Results Name Type Priority Associated Diagnoses Date /Time CBC WITH WBC DIFFERENTIAL AND ANEMIA REFLEX WORKUP Lab Routine Iron deficiency anemia due to chronic blood loss 04/26/2023 12:06 PM EST Scheduled Orders Name Type Priority Associated Diagnoses Orde r Schedule CBC WITH WBC DIFFERENTIAL AND ANEMIA REFLEX WORKUP Lab Routine Iron deficiency anemia due to chronic blood loss Expected: 04/26/2023 (Approximate), Expires: 04/26/2024 Health Maintenance Due Date Last Done Comments Hepatitis B (1 of 3 - Risk 3-dose series) 1994 Depression Screening 08/03/2021 08/03/2020 Diabetic Foot Exam 02/08/2023 02/08/2022, 0 05/28/2020, 05/17/2019, Additional history exists Diabetic Eye Exam 03/15/2023 03/15/2022, , 11/03/2020, Additional history exists HbA1c 10/13/2023 04/14/2023, 11/11/2022, 11/16/2022, Additional history exists Albumin/Creatinine Ratio 11/17/2023 023, 03/29/2022, 01/06/2021, Additional history exists CKD PHOS USE SMARTSET 42460 03/22/202403/13, 01/19/2023, 11/21/2022, Additional history exists CKD HGB USE SMARTSET 61196 04/17/202404/17, 04/10/2023, 04/10/2023, Additional history exists DXA [...] Hospital discharge follow-up- Primary Other follow-up examination Congestive heart failure, unspecified HF chronicity, unspecified heart failure type (HCC) Hypomagnesemia Disorders of magnesium metabolism Essential hypertension with goal blood pressure less than 140/90 Vitamin B12 deficiency Other B-complex deficiencies Iron deficiency anemia due to chronic blood loss Iron deficiency anemia secondary to blood loss (chronic) Generalized weakness Other malaise and fatigue Type 2 diabetes mellitus with hemoglobin A1c goal of less than 7.5% (HCC) documented in this encounter Care Teams Soil Sort Worker Relationship Specialty Start Date End Date Priyanka Falcon MD [address] [place] [address] [place] [phone] PCP - General Family Medicine 01/04/19 documented as of this encounter
--- OUTSIDE RECORDS SUMMARY | 2023-04-27 23:09 | External Medical Summary | Summary of Care ---
Author Name Unknown Organization [facility] Address [address] [place] [address] Phone [phone] Care Team Providers Care Commercial Hvac Service Technician Name Role Phone Priyanka Falcon MD Primary Care Prov ider Reason for Visit * Reason Onset Date Comments Skilled Visit 04/18/2023 Encounter Details Date Type Department Care Team (Latest Contact Info) Description 04/18/2023 7:00 AM EST [facility] Visit [facility] [address] [place], [place] [phone] Kristal Brown PA-C [address] [place] [address] History of 2019 novel coronavirus disease (COVID-19)*; Hypertensive kidney disease with stage 3b chronic kidney disease (HCC); Hypomagnesemia; PAF (paroxysmal atrial fibrillation) ([facility]); Type 2 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 disease, without long-term current use of insulin ([facility]); Essential hypertension with goal blood pressure less than 140/90; Hypertension goal BP (blood pressure) < 140/90 Allergies Active Allergy Reactions Criticality Noted Date Comments Naproxen Sodium Bleeding High 12/03/2009 Hs of GI bleed Aspirin Bleeding High 12/03/2009 Doxycycline Neuro complications (Please comment) Medium 10/23/2010 Hallucinations Ibuprofen Bleeding High 12/03/2009 Hx of GI bleed Nitrofurantoin Monohydrate Macrocrystals Neuro complications (Please comment) Low 09/16/2009 Headaches Zaezjryf-Riycnskgy-Us 01/25/2011 Caused eye problems Neosporin 05/30/2003 rash Sulfa Antibiotics 05/11/2002 nausea & vomiting Tramadol Hcl Unknown 12/03/2009 Triamterene 11/16/2022 ulcers documented as of this encounter (statuses as of 04/18/2023) Medications Medication Sig Dispensed Refills Start Date End Date Status [facility] VITAMIN B12 1000 MCG PO TABSIndications:V itamin B deficiency 1 TABLET DAILY 1 Tab 0 1 Active Cholecalciferol (VITAMIN D3) 1000 UNITS CAPS Take by mouth. 0 Active Triamcinolone Acetonide 0.1 % External Cream (Aristocort)Indic ations:Allergic contact dermatitis due to drugs in contact with skin APPLY TO THE AFFECTED AREA 2 TIMES A DAY NEEDED FOR ITCHING 30 g 2 1 Active Wavemaker SoftwareTouch Verio In Vitro Strip (Glucose Blood)Indications :Type 2 diabetes mellitus with hemoglobin A1c goal of less than 7.5% (HCC) Use to test blood sugar once a day DX e11.9 100 Strip 3 2 Active Wavemaker SoftwareTouch Verio Flex System w/Device KitIndications:Ty pe 2 diabetes mellitus with hemoglobin A1c goal of less than 7.5% (HCC) Use as directed . Use to test blood sugar Dx e11.9 1 Kit 0 2 Active metFORMIN HCl 500 MG Oral Tablet (Glucophage)Indic ations:Type 2 diabetes mellitus with hemoglobin A1c goal of less than 7.5% (HCC) TAKE 1 TABLET BY MOUTH TWICE A DAY WITH BREAKFAST AND SUPPER 180 Tablet 1 3 Active OneTouch Delica Plus [id number] ons:Type 2 diabetes mellitus with hemoglobin A1c goal of less than 7.5% (HCC) Use as directed. Use to test blood sugar once a day DX e11.9 100 Each 3 3 Active Atorvastatin Calcium 80 MG Oral [...] AT BEDTIME 135 Tablet 1 3 Active Ferrous Sulfate 325 (65 Fe) MG Oral Tablet (Feosol) Take 1 Tablet by mouth 2 times a day with morning and evening meals. 0 3 Active Pantoprazole Sodium 40 MG Oral Tablet Delayed Release (Protonix) One daily 90 Tablet 1 4 Active LORazepam 0.5 MG Oral Tablet (Ativan)Indicatio ns:Persistent insomnia One tablet by mouth every bedtime and one daily as needed anxiety 60 Tablet 0 4 Active Potassium Chloride Domenica ER 20 MEQ Oral Tablet Extended Release Take 1 Tablet by mouth in the morning. 0 4 Active HYDROcodone-Aceta minophen 5-325 MG Oral TabletIndications :Bilateral low back pain without sciatica, unspecified chronicity Take 1 Tablet by mouth 2 times a day as needed for Pain, Severe. 40 Tablet 0 4 Active Docusate Sodium 100 MG Oral Capsule (Colace) Take 1 Capsule by mouth in the morning and 1 Capsule before bedtime. 0 4 Active Lisinopril 10 MG Oral Tablet (Prinivil) Take 1 Tablet by mouth in the morning. 0 4 Active Magnesium Chloride 64 MG Oral Tablet Delayed Release (Mag64) Two tablets in the morning , one tablet in the evening 0 4 Active Lisinopril 20 MG Oral Tablet (Prinivil)Indicat ions:Essential hypertension with goal blood pressure less than 140/90,Hypertensi on goal BP (blood pressure) < 140/90 TAKE 1 TABLET BY MOUTH EVERY DAY 90 Tablet 3 3 04/18/19 24 Discontinued(Med ication/Dose Changed) Magnesium Chloride 64 MG Oral Tablet Delayed Release (Mag64) Take 1 Tablet by mouth in the morning and 1 Tablet before bedtime. 0 4 04/18/19 24 Discontinued documented as of this encounter (statuses as of 04/18/2023) Active Problems Problem Noted Date Diagnosed Date [...] as of this encounter (statuses as of 04/18/2023) Resolved Problems Problem Noted Date Diagnosed Date [...] as of this encounter (statuses as of 04/18/2023) Immunizations Name Administration Dates Next Due COVID-19 [...] Care Team (Late st Contact Info) Description 06/05/2023 2:00 PM EDT Office Visit Gastroenterology, [facility] [address] [address] Jen Salgado CRNP [address] [place] [address] 07/04/2023 11:30 AM EDT Office Visit Family Medicine [address] [place] [phone] Liliane L[address] [place] [address] 07/27/2023 1:30 PM EDT Office Visit Cardiology [address] [place] [address] Cameron Becerra PA-C [address] [place] [address] 12/05/2023 2:30 PM EDT Office Visit Nephrology [address] [place] [address] Radha Wyman PA-C [address] [place] [address] Health Maintenance Due Date Last Done Comments Hepatitis B (1 of 3 - Risk 3-dose series) 1994 Depression Screening 08/03/2021 08/03/2020 Diabetic Foot Exam 02/08/2023 02/08/2022, 0 05/28/2020, 05/17/2019, Additional history exists Diabetic Eye Exam 03/15/2023 03/15/2022, , 11/03/2020, Additional history exists HbA1c 10/13/2023 04/14/2023, 11/0 11/2022, 11/16/2022, Additional history exists Albumin/Creatinine Ratio 11/17/2023 023, 03/29/2022, 01/06/2021, Additional history exists CKD PHOS USE SMARTSET 82851 03/22/202403/13, 01/19/2023, 11/21/2022, Additional history exists CKD HGB USE SMARTSET 40236 04/17/202404/17, 04/10/2023, 04/10/2023, Additional history exists DXA [...] as of this encounter Visit Diagnoses Diagnosis History of 2019 novel coronavirus disease (COVID-19)- Primary Hypertensive kidney disease with stage 3b chronic kidney disease (HCC) Hypomagnesemia Disorders of magnesium metabolism PAF (paroxysmal atrial fibrillation) (HCC) Atrial fibrillation Type 2 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 disease, without long-term current use of insulin (HCC) Essential hypertension with goal blood pressure less than 140/90 Hypertension goal BP (blood pressure) < 140/90 Unspecified essential hypertension documented in this encounter Care Teams Commercial Hvac Service Technician Relationship Specialty Start Date End Date Priyanka Falcon MD [address] [place] [address] [place] [id number] PCP - General Family Medicine 01/04/19 documented as of this encounter
--- OUTSIDE RECORDS SUMMARY | 2023-04-27 23:09 | External Medical Summary | Summary of Care ---
Author Name Unknown Organization [facility] Address [address] [place] [address] Phone [phone] Care Team Providers Care Sporting Goods Sales Manager Name Role Phone Priyanka Falcon MD Primary Care Prov ider Reason for Visit * Reason Comments Outpatient Testing Encounter Details Date Type Department Care Team (Latest Contact Info) Description 04/26/2023 12:10 PM EST Laboratory Laboratory [address] [place] [phone] [place] [address] Persistent atrial fibrillation (HCC); Gastrointestinal hemorrhage, unspecified gastrointestinal hemorrhage type; Supratherapeutic INR; Anemia due to stage 3a chronic kidney disease; Hypomagnesemia; Essential hypertension with goal blood pressure less than 140/90; Iron deficiency anemia due to chronic blood loss Allergies Active Allergy Reactions Criticality Noted Date Comments Naproxen Sodium Bleeding High 12/03/2009 Hs of GI bleed Aspirin Bleeding High 12/03/2009 Doxycycline Neuro complications (Please comment) Medium 10/23/2010 Hallucinations Ibuprofen Bleeding High 12/03/2009 Hx of GI bleed Nitrofurantoin Monohydrate Macrocrystals Neuro complications (Please comment) Low 09/16/2009 Headaches [id number]-Ds 01/25/2011 Caused eye problems Neosporin 05/30/2003 rash Sulfa Antibiotics 05/11/2002 nausea & vomiting Tramadol Hcl Unknown 12/03/2009 Triamterene 11/16/2022 ulcers documented as of this encounter (statuses as of 04/26/2023) Medications Medication Sig Dispensed Refills Start Date End Date Status Triamcinolone Acetonide 0.1 % External Cream (Aristocort)Indicati ons:Allergic contact dermatitis due to drugs in contact with skin APPLY TO THE AFFECTED AREA 2 TIMES A DAY NEEDED FOR ITCHING 30 g 2 05/28/2020 Active Panlio Flex System w/Device KitIndications:Type 2 diabetes mellitus with hemoglobin A1c goal of less than 7.5% ([facility]) Use as directed . Use to test blood sugar Dx e11.9 1 Kit 0 05/14/2021 Active amLODIPine Besylate 2.5 MG Oral Tablet (Norvasc)Indications :Essential hypertension with goal blood pressure less than 140/90 TAKE 1 TABLET BY MOUTH EVERY DAY IN THE MORNING 30 Tablet 0 04/20/2023 Active Atorvastatin Calcium 80 MG Oral Tablet (Lipitor)Indications :Dyslipidemia, goal LDL below 70 TAKE 1 TABLET BY MOUTH EVERY DAY IN THE MORNING 90 Tablet 3 04/20/2023 Active Boost Breeze Oral Liquid Take 240 mL by mouth daily. 240 mL 0 04/20/2023 Active Cyanocobalamin 1000 MCG Oral Tablet ([facility] Vitamin B-12)Indications:Vit miller B deficiency Take 1 Tablet by mouth in the morning. 30 Tablet 0 04/20/2023 Active Furosemide 40 MG Oral Tablet (Lasix) One tablet by mouth three days a week 30 Tablet 0 04/20/2023 Active glipiZIDE ER 2.5 MG Oral Tablet Extended Release 24 Hour (Glucotrol XL)Indications:Type 2 diabetes mellitus with hemoglobin A1c goal of less than 7.5% ([facility]) TAKE 1 TABLET BY MOUTH DAILY 30 MINUTES BEFORE A MEAL 90 Tablet 1 04/20/2023 Active HYDROcodone-Acetamin ophen 5-325 MG Oral TabletIndications:Bi lateral low back pain without sciatica, unspecified chronicity Take 1 Tablet by mouth 2 times a day as needed for Pain, Severe. 40 Tablet 0 04/20/2023 Active Lisinopril 10 MG Oral Tablet (Prinivil) Take 1 Tablet by mouth in the morning. 30 Tablet 0 04/20/2023 Active LORazepam 0.5 MG Oral Tablet (Ativan)Indications: Persistent insomnia One tablet by mouth every bedtime and one daily as needed anxiety 60 Tablet 0 04/20/2023 Active metFORMIN HCl 500 MG Oral Tablet (Glucophage)Indicati ons:Type 2 diabetes mellitus with hemoglobin A1c goal of less than 7.5% (HCC) TAKE 1 TABLET BY MOUTH TWICE A DAY WITH BREAKFAST AND SUPPER 60 Tablet 0 04/20/2023 Active Metoprolol Succinate ER 100 MG Oral Tablet Extended Release 24 Hour (toPROL XL)Indications:Essen tial hypertension with goal blood pressure less than [...] mouth daily. 30 Capsule 0 04/20/2023 Active OneTouch Delica Plus [id number] :Type 2 diabetes mellitus with hemoglobin A1c goal of less than 7.5% (HCC) Use as directed. Use to test blood sugar once a day DX e11.9 100 Each 3 04/26/2023 Active OneTouch Verio In Vitro Strip (Glucose Blood)Indications:Ty pe 2 diabetes mellitus with hemoglobin A1c goal of less than 7.5% (HCC) Use to test blood sugar once a day DX e11.9 100 Strip 3 04/26/2023 Active Docusate Sodium 100 MG Oral Capsule (Colace) Take 1 Capsule by mouth 2 times a day as needed for Constipation. 90 Capsule 1 04/26/2023 Active Ferrous Sulfate 325 (65 Fe) MG Oral Tablet (Feosol) Take 1 Tablet by mouth 2 times a day with morning and evening meals. 180 Tablet 1 04/26/2023 Active Magnesium Chloride 64 MG Oral Tablet Delayed Release (Mag64) Two tablets in the morning , one tablet in the evening 270 Tablet 1 04/26/2023 Active documented as of this encounter (statuses [...] 11:10 AM EST Office Visit Family Medicine [address] [place] [phone] [address] [place] [address] 06/05/2023 2:00 PM EDT Office Visit Gastroenterology, [facility] [address] [place] [address] Jen Salgado CRNP [address] [place] [address] 07/04/2023 11:30 AM EDT Office Visit Family Medicine [address] [place] [phone] [address] [place] [address] 07/27/2023 1:30 PM EDT Office Visit Cardiology [address] [place] [address] Cameron Becerra PA-C [address] [address] 12/05/2023 2:30 PM EDT Office Visit Nephrology [address] [place] [address] ZeRadha hough PA-C [address] [place] [address] Pending Results Name Type Priority Associated Diagnoses Date /Time BASIC METABOLIC PANEL Lab Routine Persistent atrial fibrillation (HCC) Gastrointestinal hemorrhage, unspecified gastrointestinal hemorrhage type Supratherapeutic INR 04/26/2023 12:06 PM EST MAGNESIUM Lab Routine Anemia due to stage 3a chronic kidney disease 04/26/2023 12:06 PM EST CBC WITH WBC DIFFERENTIAL AND ANEMIA REFLEX WORKUP Lab Routine Iron deficiency anemia due to chronic blood loss 04/26/2023 12:06 PM EST ANEMIA CBC Lab Routine Iron deficiency anemia due to chronic blood loss 04/26/2023 12:06 PM EST DIFFERENTIAL, AUTOMATED Lab Routine Iron deficiency anemia due to chronic blood loss 04/26/2023 12:06 PM EST ANEMIA REFLEX CHEMISTRY HOLD Lab Routine Iron deficiency anemia due to chronic blood loss 04/26/2023 12:06 PM EST Health Maintenance Due Date Last [...] Additional history exists CKD PHOS USE SMARTSET 56921 03/22/202403/13, 01/19/2023, 11/21/2022, Additional history exists CKD HGB USE SMARTSET 62236 04/17/202404/17, 04/10/2023, 04/10/2023, Additional history exists DXA [...] encounter Visit Diagnoses Diagnosis Persistent atrial fibrillation (HCC) Atrial fibrillation Gastrointestinal hemorrhage, unspecified gastrointestinal hemorrhage type Supratherapeutic INR Abnormal coagulation profile Anemia due to stage 3a chronic kidney disease Hypomagnesemia Disorders of magnesium metabolism Essential hypertension with goal blood pressure less than 140/90 Iron deficiency anemia due to chronic blood loss Iron deficiency anemia secondary to blood loss (chronic) documented in this encounter Care Teams Sporting Goods Sales Manager Relationship Specialty Start Date End Date Priyanka Falcon MD [address] [place] [address] [place] [phone] PCP - General Family Medicine 01/04/19 documented as of this encounter
--- OUTSIDE RECORDS SUMMARY | 2023-04-27 23:09 | External Medical Summary ---
Author Name Unknown Address Unknown Organization K01:[facility] [place] [facility] [address] [address] [place] [address] Laboratory Report Ordering Provider Test Date Status KOLBY STEINBERG 04/26/2023 12:06:28 Final Observation Date Value Abnormality Reference (Units ) Status BUN 04/26/2023 12:06:28 22 Above high normal 6-20 (mg/dL) Final Creatinine 04/26/2023 12:06:28 1.4 Above high normal 0.5-1.0 (mg/dL) Final Glomerular filtration rate/1.73 sq M.predicted [Volume Rate/Area] in Serum, Plasma or Blood by Creatinine-based formula (CKD-EPI) 04/26/2023 12:06:28 36 Below low normal >=60 (mL/min) Final eGFR is calculated based on the CKD-EPI 2020 equation SODIUM 04/26/2023 12:06:28 139 135-146 (m mol/L) Final Potassium 04/26/2023 12:06:28 5.2 Above high normal 3. 5-5.1 (mmol/L) Final Cl 04/26/2023 12:06:28 104 98-107 (mm ol/L) Final CO2 04/26/2023 12:06:28 18 Below low normal 22- 32 (mmol/L) Final Anion gap 04/26/2023 12:06:28 17 Above high normal 7- 15 (mmol/L) Final Glucose 04/26/2023 12:06:28 294 Above high normal 70 -120 (mg/dL) Final Calcium 04/26/2023 12:06:28 9.1 8.4-10.2 ( mg/dL) Final Performing Location [facility] [place] [address] [place] [address]
--- OUTSIDE RECORDS SUMMARY | 2023-04-27 23:09 | External Medical Summary ---
Author Name Unknown Address Unknown Organization K01:[facility]ATORY [facility] [place] [address] [place] [address] Laboratory Report Ordering Provider Test Date Status DIONE GARDNER 04/26/2023 12:06:28 Final Observation Date Value Abnormality Reference (Units ) Status Vitamin B12 04/26/2023 12:06:28 1476 Above high normal 232-1245 (pg/mL) Final Performing Location LABORATORY [facility] - [address] [place] [address]
--- OUTSIDE RECORDS SUMMARY | 2023-04-27 23:09 | External Medical Summary ---
Author Name Unknown Address Unknown Organization K01:[place] [address] [place] [address] Laboratory Report Ordering Provider Test Date Status KENDRAPARHAM 04/26/2023 12:06:28 Final Observation Date Value Abnormality Reference (Units ) Status Folic Acid 04/26/2023 12:06:28 6.3 >4.5 (ng/ mL) Final Performing Location LABORATORY [facility] - [address] [place] [address]
--- OUTSIDE RECORDS SUMMARY | 2023-04-27 23:09 | External Medical Summary ---
Author Name Unknown Address Unknown Organization [id number]:[facility]ORY [facility] [place] [address] [facility] [address] Laboratory Report Ordering Provider Test Date Status DIONE GARDNER 04/26/2023 12:06:28 Final Observation Date Value Abnormality Reference (Units ) Status WBC, Total 04/26/2023 12:06:28 8.69 4.00-10.8 0 (K/uL) Final RBC 04/26/2023 12:06:28 3.25 3.85-5.15 (M/uL) Final Hemoglobin 04/26/2023 12:06:28 9.9 Below low normal 12 .0-15.3 (g/dL) Final Anemia reflex testing trigge rs on a HGB < 12.0 for Females and HGB < 13.0 for Males in accordance with the WHO Anemia Guidelines
Anemia reflex testing triggers on a HGB < 12.0 for Females and HGB < 13.0 for Males in accordance with the WHO Anemia Guidelines HCT 04/26/2023 12:06:28 33.2 Below low normal 36. 0-45.2 (%) Final MCV 04/26/2023 12:06:28 102.2 81.5-97.5 (fL) Final MCH 04/26/2023 12:06:28 30.5 27.0-34.0 (pg) Final MCHC 04/26/2023 12:06:28 29.8 32.0-36.0 (g/dL) Final RDW 04/26/2023 12:06:28 17.2 11.5-15.5 (%) Final Platelets 04/26/2023 12:06:28 320 140-400 (K /uL) Final MPV 04/26/2023 12:06:28 11.5 6.6-11.1 ( fL) Final Nucleated erythrocytes/100 leukocytes [Ratio] in Blood by Automated count 04/26/2023 12:06:28 0 <=0 (/100 WBCs) [facility] Performing Location LABORATORY [facility] [place] - [address] [facility] [address]
--- OUTSIDE RECORDS SUMMARY | 2023-04-27 23:09 | External Medical Summary | Summary of Care ---
Author Name Unknown Organization [facility] Address [address] [place] [address] Phone [phone] Care Team Providers Care Medical Delivery Driver Name Role Phone Priyanka Falcon MD Primary Care Prov ider Reason for Referral * Evaluate & Treat - Unlimited Visits (Within 10 days (routine)) - Authorized Specialty Diagnoses / Procedures Referred By Controry osorio Referred To Contact HOME CARE / Home Care Diagnoses Generalized osteoarthritis Kristal Brown PA-C [address] [place] [id number] Referral ID Status Reason Start Date Expiration Date Visits Requested Visits Authorized [id number] Authorized Specialty Services Required 04/19/2023 999 999 Question Answer Referral Priority Within 10 days (routine) Where should this appointment be scheduled? [facility] documentation of [facility] Encounter Addendum Patient Name: Cristine Benitez I certify that this patient is under my care and that I, or a nurse practitioner or physician's assistant manager trainee working with me, had a axjg-dk-demr encounter that meets the physician oima-gq-uzmt encounter requirements with this patient on: 04/19/23 The encounter with the patient was in whole, or in part, for the following medical condition, which is the primary reason for home health care (List medical condition): Generalized weakness Hx of Covid 19 infection Anemia due to GI bleeding CKD DM Hypomagnesemia I certify that, based on my findings, the following services are medically necessary home health services: Nursing, Physical Therapy, and OT To provide the following care/treatments: (All hospitalists not following the patient after discharge should complete this section): Primary Care Physician to follow home care plan of care after discharge: 5 to 7 days My clinical findings support the need for the above services because: limited mobility and fatigue and due to weakness, recent GI bleed and Covid 19 infection. Further, I certify that my clinical findings support that this patient is homebound (i.e. Absences from home require considerable and taxing effort and are for medical reasons or latter-day services or infrequently or of short duration when for other reason) because: limited mobility and fatigue and due to weakness, recent GI bleed and Covid 19 infection. Physician Signature: Date of Signature: Physician Printed Name: Kristal Brown PA-C Encounter Details Date Type Department Care Team (Late st Contact Info) Description 04/19/2023 Orders Only [address] [id number] Kristal Brown PA-C [address] [place] [address] Generalized osteoarthritis* Allergies Active Allergy Reactions Criticality Noted Date Comments Naproxen Sodium Bleeding High 12/03/2009 Hs of GI bleed Aspirin Bleeding High 12/03/2009 Doxycycline Neuro complications (Please comment) Medium 10/23/2010 Hallucinations Ibuprofen Bleeding High 12/03/2009 Hx of GI bleed Nitrofurantoin Monohydrate Macrocrystals Neuro complications (Please comment) Low 09/16/2009 Headaches Dwunhmrd-Whnctehyl-Lg 01/25/2011 Caused eye problems Neosporin 05/30/2003 rash Sulfa Antibiotics 05/11/2002 nausea & vomiting Tramadol Hcl Unknown 12/03/2009 Triamterene 11/16/2022 ulcers documented as of this encounter (statuses as of 04/19/2023) Medications Medication Sig Dispensed Refills Start Date End Date Status [facility] VITAMIN B12 1000 MCG PO TABSIndications:Leta min B deficiency 1 TABLET DAILY 1 Tab 0 04/27/2010 Active Cholecalciferol (VITAMIN D3) 1000 UNITS CAPS Take by mouth. 0 Active Triamcinolone Acetonide 0.1 % External Cream (Aristocort)Indicati ons:Allergic contact dermatitis due to drugs in contact with skin APPLY TO THE AFFECTED AREA 2 TIMES A DAY NEEDED FOR ITCHING 30 g 2 05/28/2020 Active Protea MedicalTouch Verio In Vitro Strip (Glucose Blood)Indications:Ty pe 2 diabetes mellitus with hemoglobin A1c goal of less than 7.5% (HCC) Use to test blood sugar once a day DX e11.9 100 Strip 3 05/14/2021 Active Protea MedicalTouch Verio Flex System w/Device KitIndications:Type 2 diabetes mellitus with hemoglobin A1c goal of less than 7.5% (HCC) Use as directed . Use to test blood sugar Dx e11.9 1 Kit 0 05/14/2021 Active metFORMIN HCl 500 MG Oral Tablet (Glucophage)Indicati ons:Type 2 diabetes mellitus with hemoglobin A1c goal of less than 7.5% (HCC) TAKE 1 TABLET BY MOUTH TWICE A DAY WITH BREAKFAST AND SUPPER 180 Tablet 1 09/08/2022 Active OneTouch Delica Plus [id number] :Type 2 diabetes mellitus with hemoglobin A1c goal of less than 7.5% (HCC) Use as directed. Use to test blood sugar once a day DX e11.9 100 Each 3 09/10/2022 Active Atorvastatin Calcium 80 MG Oral Tablet (Lipitor)Indications :Dyslipidemia, goal LDL below 70 TAKE 1 TABLET BY MOUTH EVERY DAY IN THE MORNING 90 Tablet 3 11/21/2022 Active Protea MedicalTouch Ultra In Vitro Strip (Glucose Blood)Indications:Ty pe 2 [...] morning and evening meals. 0 03/11/2023 Active Pantoprazole Sodium 40 MG Oral Tablet Delayed Release (Protonix) One daily 90 Tablet 1 03/27/2023 Active LORazepam 0.5 MG Oral Tablet (Ativan)Indications: Persistent insomnia One tablet by mouth every bedtime and one daily as needed anxiety 60 Tablet 0 04/04/2023 Active Potassium Chloride Domenica ER 20 MEQ Oral Tablet Extended Release Take 1 Tablet by mouth in the morning. 0 04/04/2023 Active HYDROcodone-Acetamin ophen 5-325 MG Oral TabletIndications:Bi lateral low back pain without sciatica, unspecified chronicity Take 1 Tablet by mouth 2 times a day as needed for Pain, Severe. 40 Tablet 0 04/06/2023 Active Docusate Sodium 100 MG Oral Capsule (Colace) Take 1 Capsule by mouth in the morning and 1 Capsule before bedtime. 0 04/10/2023 Active Lisinopril 10 MG Oral Tablet (Prinivil) Take 1 Tablet by mouth in the morning. 0 04/18/2023 Active Magnesium Chloride 64 MG Oral Tablet Delayed Release (Mag64) Two tablets in the morning , one tablet in the evening 0 04/18/2023 Active documented as of this encounter (statuses as of 04/19/2023) Active Problems Problem Noted Date Diagnosed Date [...] as of this encounter (statuses as of 04/19/2023) Resolved Problems Problem Noted Date Diagnosed Date [...] as of this encounter (statuses as of 04/19/2023) Immunizations Name Administration Dates Next Due COVID-19 [...] 11:10 AM EST Office Visit Family Medicine [address] [place] [phone] [address] [place] [id number] 06/05/2023 2:00 PM EDT Office Visit Gastroenterology, [facility] [address] [place] [phone] Jen Salgado CRNP [address] [place] [address] 07/04/2023 11:30 AM EDT Office Visit Family Medicine [address] [place] [phone] [address] [place] [address] 07/27/2023 1:30 PM EDT Office Visit Cardiology [address] [place] [address] Cameron Becerra PA-C [address] [place] [address] 12/05/2023 2:30 PM EDT Office Visit Nephrology [address] [place] [address] ZemaRadha holman PA-C [address] [place] [address] Scheduled Referrals Name Type Priority Associated Diagnoses Orde r Schedule HOME HEALTH REFERRAL OP Referral Within 10 days (routine) Generalized osteoarthritis Ordered: 04/19/2023 Health Maintenance Due Date Last Done Comments [...] Additional history exists CKD PHOS USE SMARTSET 33131 03/22/202403/13, 01/19/2023, 11/21/2022, Additional history exists CKD HGB USE SMARTSET 26240 04/17/202404/17, 04/10/2023, 04/10/2023, Additional history exists DXA [...] as of this encounter Visit Diagnoses Diagnosis Generalized osteoarthritis- Primary Generalized osteoarthrosis, unspecified site documented in this encounter Care Teams Medical Delivery Driver Relationship Specialty Start Date End Date Priyanka Falcon MD [address] [place] [address] [place] [id number] PCP - General Family Medicine 01/04/19 documented as of this encounter
--- OUTSIDE RECORDS SUMMARY | 2023-04-27 23:09 | External Medical Summary ---
Author Name Unknown Address Unknown Organization K01:[facility] [place] [address] [place] [address] Laboratory Report Ordering Provider Test Date Status DIONE GARDNER 04/26/2023 12:06:28 Final Observation Date Value Abnormality Reference (Units ) Status Ferritin 04/26/2023 12:06:28 651 Above high normal 13 -150 (ng/mL) Final Postmenopausal women have hi gher ferritin levels than pre-menopausal women. The above reference interval is based on pre-menopausal women. Performing Location [facility] [place] [address] [place] [address]
--- OUTSIDE RECORDS SUMMARY | 2023-04-27 23:09 | External Medical Summary | Summary of Care ---
Author Name Unknown Organization [facility] Address [address] [place] [address] Phone [phone] Care Team Providers Care Dealer Relationship Manager Name Role Phone Priyanka Falcon MD Primary Care Prov ider Reason for Visit * Reason Onset Date Comments Detention Visit - Discharge 04/20/2023 Encounter Details Date Type Department Care Team (Latest Contact Info) Description 04/20/2023 6:00 AM EST Detention Visit [facility] [address], [place] [phone] Kristal Brown PA-C [address] [place] [address] Generalized weakness*; History of 2019 novel coronavirus disease (COVID-19); Gastrointestinal hemorrhage associated with anorectal source; Internal hemorrhoids with complication; Blood loss anemia; Hypertensive kidney disease with stage 3b chronic kidney disease ([facility]); PAF (paroxysmal atrial fibrillation) ([facility]); Type 2 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 disease, without long-term current use of insulin ([facility]); DYSLIPIDEMIA, GOAL LDL BELOW 100; Hypomagnesemia Allergies Active Allergy Reactions Criticality Noted Date Comments Naproxen Sodium Bleeding High 12/03/2009 Hs of GI bleed Aspirin Bleeding High 12/03/2009 Doxycycline Neuro complications (Please comment) Medium 10/23/2010 Hallucinations Ibuprofen Bleeding High 12/03/2009 Hx of GI bleed Nitrofurantoin Monohydrate Macrocrystals Neuro complications (Please comment) Low 09/16/2009 Headaches Nswwikkk-Hweypgeva-Kt 01/25/2011 Caused eye problems Neosporin 05/30/2003 rash [...] FOR ITCHING 30 g 2 05/28/2020 Active MyBuilderTouch Verio In Vitro Strip (Glucose Blood)Indications: Type 2 diabetes mellitus with hemoglobin A1c goal of less than 7.5% (HCC) Use to test blood sugar once a day DX e11.9 100 Strip 3 05/14/2021 Active MyBuilderTouch Verio Flex System w/Device KitIndications:Typ e 2 diabetes mellitus with hemoglobin A1c goal of less than 7.5% (HCC) Use as directed . Use to test blood sugar Dx e11.9 1 Kit 0 05/14/2021 Active MyBuilderToWysiwyg Delica Plus [id number] ns:Type 2 diabetes mellitus with hemoglobin A1c goal of less than 7.5% (HCC) Use as directed. Use to test blood sugar once a day DX e11.9 100 Each 3 09/10/2022 Active Tweekaboo Ultra In Vitro Strip (Glucose Blood)Indications: Type 2 diabetes mellitus with hemoglobin A1c goal of less than 7.0% (HCC) USE TO TEST ONCE PER DAY. E11.9 100 Strip 5 12/08/2022 Active [facility]S VITAMIN B12 1000 MCG PO TABSIndications:Vi tamin B deficiency 1 TABLET DAILY 1 Tab 0 04/27/2010 4 Discontinue d(Refill) Cholecalciferol (VITAMIN D3) 1000 UNITS CAPS Take by mouth. 0 4 Discontinue d(Refill) metFORMIN HCl 500 MG [...] 40 Tablet 0 04/06/2023 4 Discontinue d(Refill) Docusate Sodium 100 MG Oral Capsule (Colace) Take 1 Capsule by mouth in the morning and 1 Capsule before bedtime. 0 04/10/2023 4 Discontinue d(Refill) Lisinopril 10 MG Oral [...] as of this encounter Progress Notes * Kristal Brown PA-C - 04/20/2023 9:45 AM EST Images from the original note were not included. DISCHARGE NOTE TRANSITION EVENT: Type: Discharge to home Date: April 21 Code Status: Full Code Name: Cristine Benitez Date of : 1935 This note pertains to care provided at [facility]. Please see facility medical record for original note. This note is not to be edited or addended in [facility]. Editing or addending needs to occur in the facilities medical record. Discharge Medications: Current Outpatient Medications Medication Sig Dispense Refill Vitamin D3 25 MCG (1000 UT) Oral Capsule Take 1 Capsule by mouth daily. Docusate Sodium 100 MG Oral Capsule (Colace) Take 1 Capsule by mouth 2 times a day as needed for Constipation. Furosemide 40 MG Oral Tablet (Lasix) One tablet by mouth three days a week Boost Breeze Oral Liquid Take 240 mL by mouth daily. CVS VITAMIN B12 1000 MCG PO TABS 1 TABLET DAILY 1 Tab 0 Triamcinolone Acetonide 0.1 % External Cream (Aristocort) APPLY TO THE AFFECTED AREA 2 TIMES A DAY NEEDED FOR ITCHING 30 g 2 OneTouch Verio In Vitro Strip (Glucose Blood) Use to test blood sugar once a day DX e11.9 100 Strip3 OneTouch Verio Flex System w/Device Kit Use as directed . Use to test blood sugar Dx e11.9 1 Kit 0 metFORMIN HCl 500 MG Oral Tablet (Glucophage) TAKE 1 TABLET BY MOUTH TWICE A DAY WITH BREAKFAST ANDSUPPER 180 Tablet 1 OneTouch Delica Plus [id number] Use as directed. Use to test blood sugar once a day DX e11.9 100 Each 3 Atorvastatin Calcium 80 MG Oral Tablet (Lipitor) [...] TABLET DAILY AT BEDTIME 135 Tablet 1 Ferrous Sulfate 325 (65 Fe) MG Oral Tablet (Feosol) Take 1 Tablet by mouth 2 times a day with morning and evening meals. Pantoprazole Sodium 40 MG Oral Tablet Delayed Release (Protonix) One daily 90 Tablet 1 LORazepam 0.5 MG Oral Tablet (Ativan) One tablet by mouth every bedtime and one daily as needed anxiety 60 Tablet 0 Potassium Chloride Domenica ER 20 MEQ Oral Tablet Extended Release Take 1 Tablet by mouth in the morning. HYDROcodone-Acetaminophen 5-325 MG Oral Tablet Take 1 Tablet by mouth 2 times a day as needed for Pain, Severe. 40 Tablet 0 Lisinopril 10 MG Oral Tablet (Prinivil) Take 1 Tablet by mouth in the morning. Magnesium Chloride 64 MG Oral Tablet Delayed Release (Mag64) Two tablets in the morning , one tablet in the evening No current facility-administered medications for this visit. S: Cristine Benitez is being discharged from [facility] to home. Note from 04/04/23: Cristine Benitez is a 87 year old female. Pt is seen today for admission to this facility. Prior to admission at this facility none. Inpatient hospital records, labs, and imaging were reviewed, According to the hospital discharge summary: " 87 year old female, patient of Dr Nancy Yeboah, is admitted to [facility] from [facility] on 04/04/23 for rehabilitation. Pt with history of PAF (was on coumadin), HTN, DM, CKD, diastolic CHF, HLD, anxiety, DDD, Vitamin B12 deficiency, was brought to [facility] ED on 03/27/23 for continued generalized weakness, lethargy, decreased oral intake and lower abdomninal pain. Pt was previously admitted to [facility] from 02/20/23 through 02/28/23 due to GI bleeding with supratherapeutic INR. Pt underwent colonoscopy and UGIE showing diverticulosis and internal hemorrhoids. Pt'scoumadin was discontinued and pt was discharged to home with recommendation to have video capsule endoscopy as outpatient. Pt continued to be weak, lethargic with poor oral intake. She was readmitted back to [facility] on 03/09/23 due to recurrent rectal bleeding. GI consult was obtained during that admission and it was determined that repeat endoscopy was not required and her GI bleeding was due to internal hemorroids. Pt'shemoglobin on that admission was 7.9 and dropped to 6.6. Pt underwent one unit PRBC's transfusion with stabilization of her hemoglobin to 9.6. pt was begun on Miralax and transferred to [facility] for rehabilitation and strengthening on 03/11/23. On 03/17/23 pt tested positive for Covid 19. Shewas asymptomatic with no respiratory symptoms. She was not treated with Paxlovid and remained asympt omatic. Pt was discharged from [facility] to home on 03/20/23. Pt presented back to [facility] ED on 03/27/23 with continued weakness, nausea, vomiting, lower abdominal cramping, sensation of bladder pressure increased assistance to perform her ADLs at home. Pt also had an episode of black stool over past 2 days. In the ED, T: 36.6 C. HR: 84 irreg irreg, RR: 20 BP: 114/63mmHg. O2 saturation: 98% on room air. CBC: WBC: 8.52. H/H: 11.3 and 34.9. PLT: 249,000. INR: 1.2. creatinine elevated 1.34 with baseline 1.0 to 1.1. Magnesium markedly low at 0.9. Glucose: 101mg%. Calcium low at 8.0. Lytes, LFT's, TSH, Troponin, lactate, phosphorus all normal. Iron less than 10, UIBC less than 55. Ferritin elevated at 533. Urinalysis showed budding yeast. Urine C&S showed yeast, not Lana albicans. Pt tested positive for Covid 19 infection. EKG: AF with PVC's and no acute changes. CT scan of abdomen/pelvis wtihout contrast showed now bowel wall thickening or obstruction. No hydronephrosis. Positive for diverticulosis, no diverticulitis.Trace left pleural effusion. Small EHH, Pt was begun on IVF and given Protonix in the ED. Her Magnesium was repleted. Because of her weakness and difficulty being able to be cared for at home, she was admitted. GI consult was obtained with Dr Mckeon. Pt had recent thorough GI workup with CT scans, UGIE, colonoscopy recently and recommended to not repeat these as would likely be of low yield. The cause of pt's GI symptoms considered to be due to Covid or dementia. Pt was treated with IV antiemetics. A nutritional consult was listed in the notes but I could not find the results of that consult. Pt was able to begin eating and drinking without nausea and vomiting. Boost was added to her diet. Pt was given IV iron to replete markedly low iron level. Repeat iron level billie to 153. 2 Pt had 350 cc urine noted on bladder scan. Intermittant catheterization was recommended but pt continued to refuse. No hydronephrosis noted on CT scan. Pt remained stable throughout the rest of her [facility] stay. Discharge hemoglobin:8.6 0n 04/01/23. Discharge creatinine: 0.76. Pt is now admitted to [facility] on 04/04/23 for rehabilitation Code status is Full Code . This was discussed in full. Pt's family who were present expressed concern over pt's LE edema. She hasn't had Lasix which she has been on for years. Her SNF admission weight is 153 with baseline weight according to family at 145 pounds. Pt having no chest pains, orthopnea, dyspnea or other signs of CHF. Pt having rectal soreness with very loose stools since being in [facility]. Pt is currently on Miralax daily and Colace daily CBC Results: Results for orders placed or performed in visit on 04/17/23 CBC Result Value Ref Range WBC 4.43 4.00 - 10.80 K/uL RBC 2.82 3.85 - 5.15 M/uL HGB 8.6 (L) 12.0 - 15.3 g/dL HCT 28.1 (L) 36.0 - 45.2 % MCV 99.6 81.5 - 97.5 fL MCH 30.5 27.0 - 34.0 pg MCHC 30.6 32.0 - 36.0 g/dL RDW 16.6 11.5 - 15.5 % PLT 205 140 - 400 K/uL MPV 11.2 6.6 - 11.1 fL Hemoglobin Results: Lab Results Component Value Date/Time HGB - [facility] 8.6 (L) 04/17/2023 05:32 AM HGB - [facility] 8.9 (L) 04/10/2023 06:07 AM HGB - [facility] 8.9 (L) 04/05/2023 05:31 AM HGB - [facility] 11.4 (L) 04/03/2019 10:51 AM HGB - [facility] 11.2 (L) 05/28/2018 02:35 PM HGB - [facility] 10.9 (L) 09/21/2017 12:42 PM Basic Panel Results: Results for orders placed or performed in visit on 04/17/23 BASIC METABOLIC PANEL Result Value Ref Range BUN 19 6 - 20 mg/dL Creatinine 1.2 (H) 0.5 - 1.0 mg/dL Estimated Glomerular Filtration Rate 42 (L) >=60 mL/min Sodium 141 135 - 146 mmol/L Potassium 4.5 3.5 - 5.1 mmol/L Chloride 108 (H) 98 - 107 mmol/L CO2 22 22 - 32 mmol/L Anion Gap 11 7 - 15 mmol/L Glucose 70 70 - 120 mg/dL Calcium 8.1 (L) 8.4 - 10.2 mg/dL Creatinine Results: Lab Results Component Value Date/Time CREATININE - [facility] 1.2 (H) 04/17/2023 05:32 AM CREATININE - [facility] 1.5 (H) 04/14/2023 06:58 AM CREATININE - [facility] 1.2 (H) 04/10/2023 06:07 AM CREATININE - [facility] 1.1 (H) 01/29/2020 12:24 PM CREATININE - [facility] 1.2 (H) 11/12/2019 10:39 AM CREATININE - [facility] 1.0 08/22/2019 12:30 PM CREATININE SORAYA 41 04/10/2018 05:00 PM CREATININE SORAYA 79 01/24/2017 03:53 PM CREATININE, RANDOM URINE - [facility] 39 11/16/2022 03:14 PM CREATININE, RANDOM URINE - [facility] 133 03/29/2022 01:56 PM CREATININE, RANDOM URINE - [facility] 58 01/06/2021 02:19 PM CREATININE, RANDOM URINE - [facility] 51 05/28/2018 02:35 PM CREATININE, RANDOM URINE - [facility] 24 09/21/2017 12:42 PM CREATININE, RANDOM URINE - [facility] 23 02/20/2017 11:59 AM CREATININE-[facility] 1.08 12/31/2018 12:00 AM CREATININE-[facility] 1.31 (A) 12/29/2018 12:00 AM Potassium Results: Lab Results Component Value Date/Time POTASSIUM - [facility] 4.5 04/17/2023 05:32 AM POTASSIUM - [facility] 5.3 (H) 04/14/2023 06:58 AM POTASSIUM - [facility] 3.8 04/10/2023 06:07 AM POTASSIUM - [facility] 5.1 01/29/2020 12:24 PM POTASSIUM - [facility] 5.1 11/12/2019 10:39 AM POTASSIUM - [facility] 4.6 08/22/2019 12:30 PM POTASSIUM-[facility] 4.2 12/31/2018 12:00 AM POTASSIUM-[facility] 4.5 12/29/2018 12:00 AM Sodium Results: Lab Results Component Value Date/Time SODIUM - [facility] 141 04/17/2023 05:32 AM SODIUM - [facility] 141 04/14/2023 06:58 AM SODIUM - [facility] 144 04/10/2023 06:07 AM SODIUM - [facility] 139 01/29/2020 12:24 PM SODIUM - [facility] 141 11/12/2019 10:39 AM SODIUM - [facility] 140 08/22/2019 12:30 PM Hemoglobin AIC Results: Lab Results Component Value Date/Time HEMOGLOBIN A1C - [facility] 5.8 (H) 04/14/2023 06:58 AM HEMOGLOBIN A1C - [facility] 8.1 (H) 01/19/2023 01:07 PM HEMOGLOBIN A1C - [facility] 7.9 (H) 11/16/2022 03:14 PM HEMOGLOBIN A1C - [facility] 7.7 (H) 08/22/2019 12:30 PM HEMOGLOBIN A1C - [facility] 7.7 (H) 04/03/2019 10:51 AM HEMOGLOBIN A1C - [facility] 7.7 (H) 05/28/2018 02:35 PM MAGNESIUM Order: [id number] Status: Final result Visible to patient: No (inaccessible in MyChart) Next appt: 04/26/2023 at 11:10 AM in *Primary Care* (Liliane Lobato DO) Dx: Anemia; HTN, goal below 140/90; Hypom... 0 Result Notes Component Ref Range & Units 3 d ago Magnesium 1.5 - 2.6 mg/dL 1.2 Low Resulting Agency [facility] Specimen Collected: 04/17/23 05:32 Last Resulted: 04/17/23 15:10 Has history of : Past Medical History: Diagnosis Date AC APPEND [...] than 140/90 02/10/2016 GI hemorrhage 02/20/2023 Admitted [facility] Hemorrhoids, external without complications 09/17/2003 Influenza [...] Vitamin B deficiency 12/2007 low B12 level Patient Active Problem List Diagnosis Code Paroxysmal [...] than 7.5% ([facility]) E11.9 Hypomagnesemia E83.42 Essential hypertension with goal blood pressure less than 140/90 I10 Primary osteoarthritis of left knee M17.12 Right carotid bruit R09.89 Atrial flutter ([facility]) I48.92 PAF (paroxysmal atrial fibrillation) ([facility]) I48.0 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 Pedal edema R60.0 Hypertensive kidney disease with stage 3b chronic kidney disease ([facility]) I12.9, N18.32 Type 2 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 disease, without long-term current use of insulin (HCC) E11.22, N18.32 Seborrheic keratosis L82.1 Typical atrial flutter ([facility]) I48.3 History of 2019 novel coronavirus disease (COVID-19) Z86.16 Full code status Z78.9 Past Surgical History: Procedure Laterality Date ANAL TAG REMOVAL, EXTERNAL, MULTIPLE 1980's BREAST BIOPSY-STEREOTACTIC 02/16/2006 Left breast (DCIS) at [facility] COLONOSCOPY 02/2023 diverticulosis and internal hemorrhoids. [facility] COLONOSCOPY, DIAGNOSTIC (RECTUM) 10/26/2012 bleeding internal hemorrhoids- Dr. Starr COLONOSCOPY, DIAGNOSTIC (RECTUM) 02/16/2017 diverticulosis/COLONOSCOPY FLEXIBLE PROXIMAL DIAGNOSTIC performed by Scarlett Khan MD at [facility] COLONOSCOPY, SURGICAL 05/24/2006 Dr. Starr - normal EGD, FLEXIBLE, DIAGNOSTIC 12/25/2007 duodenal ulcer with bleed EXTENSIVE REPAIR OF VAGINA N/A 07/01/2015 COMBINED ANTEROPOSTERIOR COLPORRHAPHY WITH ENTEROCELE REPAIR performed by Linh Chan MD at OR [facility] HEMORRHOIDECTOMY, INTERNAL W/ BANDING INJECT DX/THER SUBSTANCE INTERLAMINAR LUMBAR/SACRAL W IMAGE GUIDE 01/25/2023 INJECTION SPINE LUMBAR OR SACRAL performed by Andrey Still DO at [facility] MRI L SPINE WO CONTRAST 12/25/2007 mild bulg L3-4, multifactoral Central canal stenosis L4-5, small central disc herniation L5-S1 OTHER Left breast biopsy (benign) PARTIAL MASTECTOMY 02/27/2006 02/27/2006 Left breast - partial mastectomy [place] [facility] [place] Starr REMOVAL OF APPENDIX 08/19/2010 Appendectomy 08/19/2010 Dr. Joseph at [facility] REMOVAL OF OVARY/OVIDUCT(S) bilateral REMOVE CATARACT, INSERT LENS PROSTH 08/19/2008 left eye - Dr. Hunter REMOVE CATARACT, INSERT LENS PROSTH 10/14/2008 right eye REPAIR/REVISION OF PERINEUM N/A 07/01/2015 PERINEOPLASTY performed by Linh Chan MD at OR [facility] TOTAL ABD HYSTERECTOMY W/WO REMOVAL OF TUBE(S) fibroids UPPER GI ENDOSCOPY 02/2023 unremarkable, [facility] No family history on file. Family Status Relation Status Mo at age 93 unknown cause Fa at age 69 accident - MVA Sis kidney disease Bro Alive Soraya Alive Soraya Alive Soraya Alive Son Alive Son Alive Social History Socioeconomic History Marital status: Spouse [...] on file Housing Stability: Not on file Review of patient's allergies indicates: Allergen Reactions Aleve [Naproxen Sodium] Bleeding Hs of GI bleed Aspirin Bleeding Ibuprofen Bleeding Hx of GI bleed Doxycycline Neuro complications (Please comment) Hallucinations Lhvyeqit-Chwkdbkjb-Kv [Qmcnkzzz-Alavflyje-Pg] Caused eye problems Neosporin rash Sulfa Antibiotics nausea & vomiting Tramadol Hcl Unknown Triamterene ulcers Macrobid [Nitrofurantoin Monohydrate Macrocrystals] Neuro complications (Please comment) Headaches Review of Systems: Constitutional ROS: +change in weight, less weakness, less fatigue and No fevers, sweats, or chills Eye ROS: No recent significant change in vision, No eye pain, redness, discharge and No diplopia Ear ROS: No ear pain, No drainage, No tinnitus or vertigo and No recent change in hearing Nose ROS: No nasal stuffiness and No significant epistaxis Mouth/Throat ROS: No thrush or No sore throat Neck ROS: No lumps or masses, No swollen glands, No recent swelling in thyroid area and No significant pain in neck Pulmonary ROS: No cough, sputum, or hemoptysis, No wheezing, No shortness of breath and No recent change in breathing Cardiovascular ROS: No chest pain, No shortness of breath, No edema, No palpitations and No syncope Gastrointestinal ROS: No abdominal pain, No change in bowel habits, + significant change in appetite, No nausea, vomiting, diarrhea, or constipation and No dysphagia Musculoskeletal/Extremities ROS: DJD Skin/Integumentary ROS: No rash and No itching Neurologic ROS: No headaches and No seizures Psychiatric ROS: No depression, No anxiety and No psychosis Sleep: No sleep disorders SNF course of stay: Yes - H/H CONTINUED TO BE LOW IN MID 8 RANGE. FERROUS SULFATE INCREASED TO BID FROM DAILY. MAGNESIUM LOW AT 1.2. SLOW MAG DOSE INCREASED TO TWO IN AM ONE IN PM. Adequate nutrition/fluids: Yes Bowel/Bladder dysfunction: No Assistive Devices: with walker ADL: independent O: PHYSICALEXAM: I reviewed the most recent facilities vitals. General: alert, no distress, well nourished and well developed Head: Normocephalic, No masses, lesions, tenderness or abnormalities Eye Exam: Conjunctiva are pink and non-injected, sclera clear Ears: External ears normal Nose: no mucosal erythema, no mucosal edema, no purulent discharge Oropharynx: no exudate, no erythema, lips, buccal mucosa, and tongue normal and mucous membranes are moist Neck: supple, no adenopathy, non-tender, neck veins flat, trachea midline Lymph: no palpable lymphadenopathy Heart: regular rate & rhythm, no murmurs and no gallops Lungs: normal respiratory rate and rhythm, no chest wall tenderness, lungs clear to auscultation Abdomen: abdomen soft, non-tender, normal bowel sounds and no masses or organomegaly Extremities: no edema, no clubbing, no cyanosis Neuro Exam: alert & oriented x 3 with fluent speech, no focal motor/sensory deficits Skin: skin color, texture, turgor are normal, no rashes or significant lesions Musculoskeletal: moves all extremities with good strength A: Generalized weakness (Primary) Improved Continue home OT/PT History of 2019 novel coronavirus disease (COVID-19) Recovered well Will continue to monitor Gastrointestinal hemorrhage associated with anorectal source No further GI bleeding from internal hemorroids. Anusol HC BID prn Keep BMs soft and regularly Internal hemorrhoids with complication No further GI bleeding from internal hemorroids. Anusol HC BID prn Keep BMs soft and regularly Blood loss anemia Continue Ferrous sulfate BID Hypertensive kidney disease with stage 3b chronic kidney disease (HCC) Stable at present Continue Norvasc 2.5mg daily and Toprol XL 100mg AM and 50mg PM PAF (paroxysmal atrial fibrillation) (HCC) Stable rate Not on anticoagulation at this time due to recent GI bleed and anemia Resumption of anticoagulation to be determined by cardiology/GI Type 2 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 disease, without long-term current use of insulin (HCC) Stable Continue Metformin 500mg BID and Glipizide ER 2.5mg daily DYSLIPIDEMIA, GOAL LDL BELOW 100 Continue Lipitor 80mg HS Hypomagnesemia Currently on Slow Mag 64mg two in AM one in PM Will follow P: 1. Discharge to home 2. Home Health was consulted for nursing, PT, and OT. [facility] 3. Copy of chart sent to Dr. Nancy Yeboah 4. Patient to follow up with Dr Nancy Yeboah within 7 days. 5. Photogrammetric Technician: N/A 6. I spent 45 minutes on discharge. 7. [facility] Home Treatment Given: as above I have reviewed the patients controlled substance dispensing history in the Prescription Drug Monitoring Program in compliance with the [facility] regulations before prescribing a controlled substance. Last Tox Screen Results: Results for orders placed or performed in [...] Cutoff Concentration URINE VALID INTERP NORMAL CREATININE SORAYA 41 NITRITE SORAYA 5 pH SORAYA 4.8 *Note: Due to a large number of results and/or encounters for the requested time period, some results have not been displayed. A complete set of results can be found in Results Review. Electronically signed by: Kristal Brown PA-C documented in this encounter Plan of Treatment Upcoming Encounters Date Type Department Care Team (Late st Contact Info) Description 04/26/2023 11:10 AM EST Office Visit Family Medicine [address] [place] [phone] [place] [phone] 06/05/2023 2:00 PM EDT Office Visit Gastroenterology, [facility] [address] [facility] [place] [phone] Jen Salgado CRNP [address] [facility] [place] [address] 07/04/2023 11:30 AM EDT Office Visit Family Medicine [address] [place] [phone] [address] [place] [address] 07/27/2023 1:30 PM EDT Office Visit Cardiology [address] [place] [phone] Cameron Becerra PA-C [address] [place] [address] 12/05/2023 2:30 PM EDT Office Visit Nephrology [address] [place] [address] Radha Wyman PA-C [address] [place] [id number] Health Maintenance Due Date Last Done Comments Hepatitis B (1 of 3 - Risk 3-dose series) 1994 Depression Screening 08/03/2021 08/03/2020 Diabetic Foot Exam 02/08/2023 02/08/2022, 0 05/28/2020, 05/17/2019, Additional history exists Diabetic Eye Exam 03/15/2023 03/15/2022, , 11/03/2020, Additional history exists HbA1c 10/13/2023 04/14/2023, 11/2022, 11/16/2022, Additional history exists Albumin/Creatinine Ratio 11/17/2023 023, 03/29/2022, 01/06/2021, Additional history exists CKD PHOS USE SMARTSET 72606 03/22/202403/13, 01/19/2023, 11/21/2022, Additional history exists CKD HGB USE SMARTSET 62806 04/17/202404/17, 04/10/2023, 04/10/2023, Additional history exists DXA [...] of this encounter Visit Diagnoses Diagnosis Generalized weakness- Primary Other malaise and fatigue History of 2019 novel coronavirus disease (COVID-19) Gastrointestinal hemorrhage associated with anorectal source Internal hemorrhoids with complication Internal hemorrhoids with other complication Blood loss anemia Iron deficiency anemia secondary to blood loss (chronic) Hypertensive kidney disease with stage 3b chronic kidney disease (HCC) PAF (paroxysmal atrial fibrillation) (HCC) Atrial fibrillation Type 2 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 disease, without long-term current use of insulin (HCC) DYSLIPIDEMIA, GOAL LDL BELOW 100 Other and unspecified hyperlipidemia Hypomagnesemia Disorders of magnesium metabolism documented in this encounter Care Teams Dealer Relationship Manager Relationship Specialty Start Date End Date Priyanka Falcon MD [address] [place] [address] [place] [phone] PCP - General Family Medicine 01/04/19 documented as of this encounter
--- OUTSIDE RECORDS SUMMARY | 2023-04-27 23:09 | External Medical Summary ---
Author Name Unknown Address Unknown Organization [id number]:LAB[facility]ATORY [facility] [place] 100 [facility] [address] Laboratory Report Ordering Provider Test Date Status DIONE GARDNER 04/26/2023 12:06:28 Final Observation Date Value Abnormality Reference (Units ) Status SYNC LEUKOCYTES IN BLOOD BY AUTOMATED COUNT 04/26/2023 12:06:28 8.69 4.00-10.80 (K/uL) Final Segs 04/26/2023 12:06:28 79.5 Above high normal 40.0-75.0 (%) Final Lymphs % 04/26/2023 12:06:28 11.6 Below low normal 18.0-42.0 (%) Final Monos 04/26/2023 12:06:28 7.9 1.0-11.0 (%) Final Eosinophils 04/26/2023 12:06:28 0.0 0.0-6.0 (%) Final Basos 04/26/2023 12:06:28 0.5 0.0-2.0 (%) Final Immature Granulocyte, Percent 04/26/2023 12:06:28 0.5 0.0-2.0 (%) Final Absolute Segs 04/26/2023 12:06:28 6.91 1.80-7.70 (K/uL) Final Lymphs, absolute 04/26/2023 12:06:28 1.01 1.00-4.80 (K/ul) Final Monos, Abs 04/26/2023 12:06:28 0.69 0.00-1.10 (K/uL) Final Eos, Abs 04/26/2023 12:06:28 0.00 0.00-0.70 (K/uL) Final Basos, Abs 04/26/2023 12:06:28 0.04 0.00-0.20 (K/uL) Final Immature Granulocytes, Number 04/26/2023 12:06:28 0.04 0.00-0.20 (K/uL) Final Performing Location [facility]ORY [facility] [place] [facility] [place] [address]
--- OUTSIDE RECORDS SUMMARY | 2023-04-27 23:09 | External Medical Summary ---
Author Name Unknown Address Unknown Organization [id number]:[place]ATORY [facility] [place] - [address] [place] [address] Laboratory Report Ordering Provider Test Date Status DIONE GARDNER 04/26/2023 12:06:28 Final Observation Date Value Abnormality Reference (Units ) Status Iron 04/26/2023 12:06:28 69 33-151 (ug/dL) Final Iron-binding capacity 04/26/2023 12:06:28 220 Below low normal 250-425 (ug/dL) Final Transferrin Sat % 04/26/2023 12:06:28 31 15-55 (%) Final Performing Location LABORATORY [facility] [place] - [address] [place] [address]
--- OUTSIDE RECORDS SUMMARY | 2023-04-27 23:09 | External Medical Summary ---
Author Name Unknown Address Unknown Organization [id number]:LABORATORY [facility] [place] - [facility] [address] [place] [address] Laboratory Report Ordering Provider Test Date Status DIONE GARDNER 04/26/2023 12:06:28 Final Observation Date Value Abnormality Reference (Units ) Status Retic, % (auto) 04/26/2023 12:06:28 2.74 Above high normal 0.80-1.90 (%) Final Reticulocytes, Absolute 04/26/2023 12:06:28 90.4 31.3-100.1 (K/uL) Final Reticulocyte fraction, immature 04/26/2023 12:06:28 20.5 2.5-20.6 (%) Final Reticulocyte HGB 04/26/2023 12:06:28 33.1 29.7-37.4 (pg) Final Performing Location LABORATORY [facility] [place] - [address] [place] [address]
--- OUTSIDE RECORDS SUMMARY | 2023-04-27 23:09 | External Medical Summary ---
Author Name Unknown Address Unknown Organization [id number]:[place] [facility] [place] [address] [place] [address] Laboratory Report Ordering Provider Test Date Status DIONE GARDNER 04/26/2023 12:06:28 Final Observation Date Value Abnormality Reference (Units ) Status TSH 04/26/2023 12:06:28 6.50 Above high normal 0. 27-4.20 (uIU/mL) Final Performing Location LABORATORY [facility] - [address] [place] [address]
--- OUTSIDE RECORDS SUMMARY | 2023-04-27 23:10 | External Medical Summary ---
Author Name Unknown Address Unknown Organization [id number]:[place] [facility] [place] [address] [facility] [address] Laboratory Report Ordering Provider Test Date Status STACY DIAZ 04/14/2023 06:58:27 Final Observation Date Value Abnormality Reference (Units ) Status HbA1C 04/14/2023 06:58:27 5.8 Above high normal 4. 0-5.6 (%) Final The use of HbA1c to monitor glycemic status is based on normal hemoglobin and HbA composition. This test should not be used in patients with abnormal hemoglobin that affects the half life of the red blood cell or the in vivo glycation rates. Glucose, estimated average 04/14/2023 06:58:27 120 <126 (mg/dL) Final Performing Location [place] [facility] [place] [address] [place] [address]
--- OUTSIDE RECORDS SUMMARY | 2023-04-27 23:10 | External Medical Summary | Summary of Care ---
Author Name Unknown Organization [facility] Address [address] [place] [address] Phone [phone] Care Team Providers Care Window Maker Name Role Phone Priyanka Falcon MD Primary Care Prov ider Encounter Details Date Type Department Care Team (Late st Contact Info) Description 04/16/2023 Orders Only Lab Mobile Phlebotomy [facility] [place] [address] [place] [address] Inder Mcdermott MD [address] [place] [address] [place] [address] Hypomagnesemia*; Anemia; Chronic kidney disease (CKD); HTN, goal below 140/90 Allergies Active Allergy Reactions Criticality Noted Date Comments Naproxen Sodium Bleeding High 12/03/2009 Hs of GI bleed Aspirin Bleeding High 12/03/2009 Doxycycline Neuro complications (Please comment) Medium 10/23/2010 Hallucinations Ibuprofen Bleeding High 12/03/2009 Hx of GI bleed Nitrofurantoin Monohydrate Macrocrystals Neuro complications (Please comment) Low 09/16/2009 Headaches Fbdiauvh-Vaauzwrkc-Ag 01/25/2011 Caused eye problems Neosporin 05/30/2003 rash Sulfa Antibiotics 05/11/2002 nausea & vomiting Tramadol Hcl Unknown 12/03/2009 Triamterene 11/16/2022 ulcers documented as of this encounter (statuses as of 04/16/2023) Medications Medication Sig Dispensed Refills Start Date [...] 05/14/2021 Active OneTouch Verio Flex System w/Device KitIndications:Type 2 diabetes mellitus with hemoglobin A1c goal of less than 7.5% (HCC) Use as directed . Use to test blood sugar Dx e11.9 1 Kit 0 05/14/2021 Active Lisinopril 20 MG Oral Tablet (Prinivil)Indication s:Essential hypertension with goal blood pressure less than 140/90,Hypertension goal BP (blood pressure) < 140/90 TAKE 1 TABLET BY MOUTH EVERY DAY 90 Tablet 3 08/19/2022 Active metFORMIN HCl 500 MG Oral Tablet (Glucophage)Indicati ons:Type 2 diabetes mellitus with hemoglobin A1c goal of less than 7.5% (HCC) TAKE 1 TABLET BY MOUTH TWICE A DAY WITH BREAKFAST AND SUPPER 180 Tablet 1 09/08/2022 Active OneTouch Delica Plus [id number] :Type 2 diabetes mellitus with hemoglobin A1c [...] Active OneTouch Ultra In Vitro Strip (Glucose Blood)Indications:Ty pe [...] needed anxiety 60 Tablet 0 04/04/2023 Active Magnesium Chloride 64 MG Oral Tablet Delayed Release (Mag64) Take 1 Tablet by mouth in the morning and 1 Tablet before bedtime. 0 04/04/2023 Active Potassium Chloride Domenica ER [...] 1 Capsule before bedtime. 0 04/10/2023 Active documented as of this encounter (statuses as of 04/16/2023) Active Problems Problem Noted Date Diagnosed Date History of 2019 novel coronavirus disease (COVID -19) 04/04/2023 Full code status 04/04/2023 Typical atrial flutter 03/29/2022 Seborrheic keratosis 06/01/2021 Type 2 diabetes mellitus wit h stage 3b chronic kidney disease, without long-term current use of insulin 05/28/2020 Hypertensive kidney disease with stage 3b chronic kidney disease 01/20/2020 Overview: Per CKD protocol Corrina edema 08/09/2019 Arthritis of foot 05/17/2019 PAF [...] as of this encounter (statuses as of 04/16/2023) Resolved Problems Problem Noted Date Diagnosed Date [...] as of this encounter (statuses as of 04/16/2023) Immunizations Name Administration Dates Next Due COVID-19 [...] Care Team (Late st Contact Info) Description 04/17/2023 8:50 AM EST Laboratory Lab Mobile Phlebotomy [facility] [place] 100 [facility] [id number] [place] [address] 06/05/2023 2:00 PM EDT Office Visit Gastroenterology, [facility] [address] [place] [address] Jen Salgado CRNP [address] [place] [address] 07/04/2023 11:30 AM EDT Office Visit Family Medicine [address] [place] [phone] Liliane [address] [place] [address] 07/27/2023 1:30 PM EDT Office Visit Cardiology [address] [place] [address] Cameron Becerra PA-C [address] [place] [address] 12/05/2023 2:30 PM EDT Office Visit Nephrology [address] [place] [address] Radha Wyman PA-C [address] [place] [address] Scheduled Orders Name Type Priority Associated Diagnoses Orde r Schedule CBC Lab Routine Hypomagnesemia Anemia Chronic kidney disease (CKD) HTN, goal below 140/90 Expected: 04/17/2023, Expires: 04/16/2024 BASIC METABOLIC PANEL Lab Routine Hypomagnesemia Anemia Chronic kidney disease (CKD) HTN, goal below 140/90 Expected: 04/17/2023, Expires: 04/16/2024 MAGNESIUM Lab Routine Hypomagnesemia Anemia Chronic kidney disease (CKD) HTN, goal below 140/90 Expected: 04/17/2023, Expires: 04/16/2024 Health Maintenance Due Date Last Done Comments [...] Additional history exists CKD PHOS USE SMARTSET 71719 03/22/202403/13, 01/19/2023, 11/21/2022, Additional history exists CKD HGB USE SMARTSET 61651 04/10/202404/10, 04/10/2023, 04/05/2023, Additional history exists DXA Scan 12/09/2027 12/08/2020, [...] as of this encounter Visit Diagnoses Diagnosis Hypomagnesemia- Primary Disorders of magnesium metabolism Anemia Anemia, unspecified Chronic kidney disease (CKD) Chronic kidney disease, unspecified HTN, goal below 140/90 Unspecified essential hypertension documented in this encounter Care Teams Window Maker Relationship Specialty Start Date End Date Priyanka Falcon MD [address] [place] [address] [place] [phone] PCP - General Family Medicine 01/04/19 documented as of this encounter
--- OUTSIDE RECORDS SUMMARY | 2023-04-27 23:10 | External Medical Summary ---
Author Name Unknown Address Unknown Organization K0G[facility] [address] [place] [address] Laboratory Report Ordering Provider Test Date Status STACY DIAZ 04/10/2023 06:07:00 Final Observation Date Value Abnormality Reference (Units ) Status SYNC LEUKOCYTES IN BLOOD BY AUTOMATED COUNT 04/10/2023 06:07:00 5.22 4.00-10.80 (K/uL) Final Segs 04/10/2023 06:07:00 55.1 40.0-75.0 (%) Final Lymphs % 04/10/2023 06:07:00 25.9 18.0-42.0 (%) Final Monos 04/10/2023 06:07:00 14.8 Above high normal 1.0-11.0 (%) Final Eosinophils 04/10/2023 06:07:00 4.0 0.0-6.0 (%) Final Basos 04/10/2023 06:07:00 0.2 0.0-2.0 (%) Final Absolute Segs 04/10/2023 06:07:00 2.88 1.80-7.70 (K/uL) Final Lymphs, absolute 04/10/2023 06:07:00 1.35 1.00-4.80 (K/ul) Final Monos, Abs 04/10/2023 06:07:00 0.77 0.00-1.10 (K/uL) Final Eos, Abs 04/10/2023 06:07:00 0.21 0.00-0.70 (K/uL) Final Basos, Abs 04/10/2023 06:07:00 0.01 0.00-0.20 (K/uL) Final Performing Location LABORATORY [facility] 57-1 0 - [address] [place] [address]
--- OUTSIDE RECORDS SUMMARY | 2023-04-27 23:10 | External Medical Summary ---
Author Name Unknown Address Unknown Organization K01:LABORATORY [facility] - [address] [place] [address] Laboratory Report Ordering Provider Test Date Status STACY DIAZ 04/14/2023 06:58:27 Final Observation Date Value Abnormality Reference (Units ) Status HCT 04/14/2023 06:58:27 29.6 Below low normal 36. 0-45.2 (%) Final Performing Location LABORATORY [facility] - [address] [place] [address]
--- OUTSIDE RECORDS SUMMARY | 2023-04-27 23:10 | External Medical Summary ---
Author Name Unknown Address Unknown Organization K0G:LABORATORY [facility] 57-10 - [address] [place] [address] Laboratory Report Ordering Provider Test Date Status STACY DIAZ 04/17/2023 05:32:00 Final Observation Date Value Abnormality Reference (Units ) Status WBC, Total 04/17/2023 05:32:00 4.43 4.00-10.8 0 (K/uL) Final RBC 04/17/2023 05:32:00 2.82 3.85-5.15 (M/uL) Final Hemoglobin 04/17/2023 05:32:00 8.6 Below low normal 12 .0-15.3 (g/dL) Final HCT 04/17/2023 05:32:00 28.1 Below low normal 36. 0-45.2 (%) Final MCV 04/17/2023 05:32:00 99.6 81.5-97.5 (fL) Final MCH 04/17/2023 05:32:00 30.5 27.0-34.0 (pg) Final MCHC 04/17/2023 05:32:00 30.6 32.0-36.0 (g/dL) Final RDW 04/17/2023 05:32:00 16.6 11.5-15.5 (%) Final Platelets 04/17/2023 05:32:00 205 140-400 (K /uL) Final MPV 04/17/2023 05:32:00 11.2 6.6-11.1 ( fL) Final Performing Location LABORATORY [facility] 571 0 - [address] [place] [address]
--- OUTSIDE RECORDS SUMMARY | 2023-04-27 23:10 | External Medical Summary | Summary of Care ---
Author Name Unknown Organization [facility] Address [address] [place] [address] Phone [phone] Care Team Providers Care Nursery Hand Name Role Phone Priyanka Falcon MD Primary Care Prov ider Encounter Details Date Type Department Care Team (Late st Contact Info) Description 04/14/2023 Orders Only Lab Mobile Phlebotomy [facility] [place] [address] [place] [address] Inder Mcdermott MD [address] [place] [address] [place] [address] Routine medical exam* Allergies Active Allergy Reactions Criticality Noted Date Comments Naproxen Sodium Bleeding High 12/03/2009 Hs of GI bleed Aspirin Bleeding High 12/03/2009 Doxycycline Neuro complications (Please comment) Medium 10/23/2010 Hallucinations Ibuprofen Bleeding High 12/03/2009 Hx of GI bleed Nitrofurantoin Monohydrate Macrocrystals Neuro complications (Please comment) Low 09/16/2009 Headaches Jjdhjnau-Jewdfigim-Bi 01/25/2011 Caused eye problems Neosporin 05/30/2003 rash Sulfa Antibiotics 05/11/2002 nausea & vomiting Tramadol Hcl Unknown 12/03/2009 Triamterene 11/16/2022 ulcers documented as of this encounter (statuses as of 04/14/2023) Medications Medication Sig Dispensed Refills Start Date [...] Tablet 1 09/08/2022 Active OneTouch Delica Plus [id number] :Type 2 diabetes mellitus with hemoglobin A1c [...] as of this encounter (statuses as of 04/14/2023) Active Problems Problem Noted Date Diagnosed Date [...] as of this encounter (statuses as of 04/14/2023) Resolved Problems Problem Noted Date Diagnosed Date [...] as of this encounter (statuses as of 04/14/2023) Immunizations Name Administration Dates Next Due COVID-19 [...] Care Team (Late st Contact Info) Description 04/14/2023 8:10 AM EST Laboratory Lab Mobile Phlebotomy [facility] [place] [facility] [place] [address] [place] [address] Arrived 06/05/2023 2:00 PM EDT Office Visit Gastroenterology, [facility] 132 [facility] [place] [address] Jen Salgado CRNP 132 [facility] [place] [address] 07/04/2023 11:30 AM EDT Office Visit Family Medicine [address] [place] [phone] Liliane [address] [place] [address] 07/27/2023 1:30 PM EDT Office Visit Cardiology [address] [place] [address] Cameron Becerra PA-C [address] [place] [address] 12/05/2023 2:30 PM EDT Office Visit Nephrology [address] [place] [address] Radha Wyman PA-C [address] [place] [address] Scheduled Orders Name Type Priority Associated Diagnoses Orde r Schedule BASIC METABOLIC PANEL Lab Routine Routine medical exam Expected: 04/15/2023, Expires: 04/14/2024 HEMOGLOBIN A1C Lab Routine Routine medical exam Expected: 04/15/2023, Expires: 04/14/2024 HCT Lab Routine Routine medical exam Expected: 04/14/2023, Expires: 04/14/2024 Health Maintenance Due Date Last Done Comments [...] Additional history exists CKD PHOS USE SMARTSET 14179 03/22/202403/13, 01/19/2023, 11/21/2022, Additional history exists CKD HGB USE SMARTSET 96878 04/10/202404/10, 04/10/2023, 04/05/2023, Additional history exists DXA [...] as of this encounter Visit Diagnoses Diagnosis Routine medical exam- Primary Routine general medical examination at a health care facility documented in this encounter Care Teams Nursery Hand Relationship Specialty Start Date End Date Priyanka Falcon MD [address] [place] [address] [place] [address] PCP - General Family Medicine 01/04/19 documented as of this encounter
--- OUTSIDE RECORDS SUMMARY | 2023-04-27 23:10 | External Medical Summary ---
Author Name Unknown Address Unknown Organization K01:LABORATORY [facility] [place] - [facility] [address] [facility] [address] [place] [address] Laboratory Report Ordering Provider Test Date Status STACY DIAZ 04/14/2023 06:58:27 Final Observation Date Value Abnormality Reference (Units ) Status BUN 04/14/2023 06:58:27 21 Above high normal 6-20 (mg/dL) Final Creatinine 04/14/2023 06:58:27 1.5 Above high normal 0.5-1.0 (mg/dL) Final Glomerular filtration rate/1.73 sq M.predicted [Volume Rate/Area] in Serum, Plasma or Blood by Creatinine-based formula (CKD-EPI) 04/14/2023 06:58:27 32 Below low normal >=60 (mL/min) Final eGFR is calculated based on the CKD-EPI 2020 equation SODIUM 04/14/2023 06:58:27 141 135-146 (m mol/L) Final Potassium 04/14/2023 06:58:27 5.3 Above high normal 3. 5-5.1 (mmol/L) Final Cl 04/14/2023 06:58:27 105 98-107 (mm ol/L) Final CO2 04/14/2023 06:58:27 23 22-32 (mmo l/L) Final Anion gap 04/14/2023 06:58:27 13 7-15 (mmol /L) Final Glucose 04/14/2023 06:58:27 75 70-120 (mg /dL) Final Calcium 04/14/2023 06:58:27 7.9 Below low normal 8.4 -10.2 (mg/dL) Final Performing Location LABORATORY [facility] [place] [address] [place] [address]
--- OUTSIDE RECORDS SUMMARY | 2023-04-27 23:10 | External Medical Summary ---
Author Name Unknown Address Unknown Organization K0G:LABORATORY [facility] 57-10 - [address] [place] [address] Laboratory Report Ordering Provider Test Date Status STACY DIAZ 04/10/2023 06:07:00 Final Observation Date Value Abnormality Reference (Units ) Status WBC, Total 04/10/2023 06:07:00 5.22 4.00-10.8 0 (K/uL) Final RBC 04/10/2023 06:07:00 3.01 3.85-5.15 (M/uL) Final Hemoglobin 04/10/2023 06:07:00 8.9 Below low normal 12 .0-15.3 (g/dL) Final HCT 04/10/2023 06:07:00 30.1 Below low normal 36. 0-45.2 (%) Final MCV 04/10/2023 06:07:00 100.0 81.5-97.5 (fL) Final MCH 04/10/2023 06:07:00 29.6 27.0-34.0 (pg) Final MCHC 04/10/2023 06:07:00 29.6 32.0-36.0 (g/dL) Final RDW 04/10/2023 06:07:00 16.9 11.5-15.5 (%) Final Platelets 04/10/2023 06:07:00 305 140-400 (K /uL) Final MPV 04/10/2023 06:07:00 11.3 6.6-11.1 ( fL) Final Performing Location LABORATORY [facility] 571 0 - [address] [place] [address]
--- OUTSIDE RECORDS SUMMARY | 2023-04-27 23:10 | External Medical Summary ---
Author Name Unknown Address Unknown Organization K0G:LAB[facility]ATORY [place] 57-10 - [address] [place] [address] Laboratory Report Ordering Provider Test Date Status STACY DIAZ 04/17/2023 05:32:00 Final Observation Date Value Abnormality Reference (Units ) Status BUN 04/17/2023 05:32:00 19 6-20 (mg/dL) Final Creatinine 04/17/2023 05:32:00 1.2 Above high normal 0.5-1.0 (mg/dL) Final Glomerular filtration rate/1.73 sq M.predicted [Volume Rate/Area] in Serum, Plasma or Blood by Creatinine-based formula (CKD-EPI) 04/17/2023 05:32:00 42 Below low normal >=60 (mL/min) Final eGFR is calculated based on the CKD-EPI 2020 equation SODIUM 04/17/2023 05:32:00 141 135-146 (m mol/L) Final Potassium 04/17/2023 05:32:00 4.5 3.5-5.1 (m mol/L) Final Cl 04/17/2023 05:32:00 108 Above high normal 98 -107 (mmol/L) Final CO2 04/17/2023 05:32:00 22 22-32 (mmo l/L) Final Anion gap 04/17/2023 05:32:00 11 7-15 (mmol /L) Final Glucose 04/17/2023 05:32:00 70 70-120 (mg /dL) Final Calcium 04/17/2023 05:32:00 8.1 Below low normal 8.4 -10.2 (mg/dL) Final Performing [facility] - [address] [place] [address]
--- OUTSIDE RECORDS SUMMARY | 2023-04-27 23:10 | External Medical Summary | Summary of Care ---
Author Name Unknown Organization [facility] Address [address] [place] [address] Phone [phone] Care Team Providers Care Ensemble Member Name Role Phone Priyanka Falcon MD Primary Care Prov ider Reason for Visit * Reason Onset Date Comments Skilled Visit 04/14/2023 Encounter Details Date Type Department Care Team (Latest Contact Info) Description 04/14/2023 8:30 AM EST Longterm Visit [facility] [address] [place] [address] Kristal Brown PA-C [address] [place], [place] [phone] Generalized weakness*; History of 2019 novel coronavirus disease (COVID-19); Hypertensive kidney disease with stage 3b chronic kidney disease ([facility]); PAF (paroxysmal atrial fibrillation) ([facility]); Type 2 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 disease, without long-term current use of insulin ([facility]) Allergies Active Allergy Reactions Criticality Noted Date Comments Naproxen Sodium Bleeding High 12/03/2009 Hs of GI bleed Aspirin Bleeding High 12/03/2009 Doxycycline Neuro complications (Please comment) Medium 10/23/2010 Hallucinations Ibuprofen Bleeding High 12/03/2009 Hx of GI bleed Nitrofurantoin Monohydrate Macrocrystals Neuro complications (Please comment) Low 09/16/2009 Headaches Nlrmuktj-Tjpgtvabi-Du 01/25/2011 Caused eye problems Neosporin 05/30/2003 rash [...] FOR ITCHING 30 g 2 05/28/2020 [employer]Touch Verio In Vitro Strip (Glucose Blood)Indications:Ty pe 2 diabetes mellitus with hemoglobin A1c goal of less than 7.5% (HCC) Use to test blood sugar once a day DX e11.9 100 Strip 3 05/14/2021 [employer]Touch Verio Flex System w/Device KitIndications:Type 2 diabetes [...] Tablet 1 09/08/2022 Active OneTouch Delica Plus [id number] :Type 2 diabetes mellitus with hemoglobin A1c [...] Progress Notes * Kristal Brown PA-C - 04/14/2023 12:25 PM EST Name: Cristine Benitez Date of :1935 TRANSITION EVENT: Type: Skilled visit Date: April 14 Code Status: Full Code This note pertains to care provided at [facility]. Please see facility medical record for original note. This note is not to be edited or addended in [employer]. Editing or addending needs to occur in the facilities medical record. Subjective: Cristine Benitez is a 87 year old female. Patient being seen for skilled visit Chief Complaint Patient presents with Skilled Visit HPI: pt here for rehabilitation following [facility] admission for generalized weakness, blood loss anemia due to internal hemorrhoids and hx of recent Covid 19 infection. Pt is very upbeat and happy with her progress so far. She is ambulating with Therapy and much less weakness and fatigue. Vital signs stable. Pt is not on anticoagulation due to recent GI bleeding andanemia which required blood transfusion. No chest pains, palpitations. Pt is eating better than at home. She is drinking adequate fluids,. Sleeping well at night. Less edema with elevation of legs and Lasix which now reduced back to three days weekly from daily. Using tubigrips and tolerating them. CBC Results: Results for orders placed or performed in visit on 04/10/23 CBC Result Value Ref Range WBC 5.22 4.00 - 10.80 K/uL RBC 3.01 3.85 - 5.15 M/uL HGB 8.9 (L) 12.0 - 15.3 g/dL HCT 30.1 (L) 36.0 - 45.2 % MCV 100.0 81.5 - 97.5 fL MCH 29.6 27.0 - 34.0 pg MCHC 29.6 32.0 - 36.0 g/dL RDW 16.9 11.5 - 15.5 % PLT 305 140 - 400 K/uL MPV 11.3 6.6 - 11.1 fL Hemoglobin Results: Lab Results Component Value Date/Time HGB - [facility] 8.9 (L) 04/10/2023 06:07 AM HGB - [facility] 8.9 (L) 04/05/2023 05:31 AM HGB - [facility] 9.8 (L) 03/22/2023 02:07 PM HGB - [facility] 11.4 (L) 04/03/2019 10:51 AM HGB - [facility] 11.2 (L) 05/28/2018 02:35 PM HGB - [facility] 10.9 (L) 09/21/2017 12:42 PM Basic Panel Results: Results for orders placed or performed in visit on 04/10/23 BASIC METABOLIC PANEL Result Value Ref Range BUN 15 6 - 20 mg/dL Creatinine 1.2 (H) 0.5 - 1.0 mg/dL Estimated Glomerular Filtration Rate 45 (L) >=60 mL/min Sodium 144 135 - 146 mmol/L Potassium 3.8 3.5 - 5.1 mmol/L Chloride 104 98 - 107 mmol/L CO2 26 22 - 32 mmol/L Anion Gap 14 7 - 15 mmol/L Glucose 144 (H) 70 - 120 mg/dL Calcium 8.4 8.4 - 10.2 mg/dL Creatinine Results: Lab Results Component Value Date/Time CREATININE - [facility] 1.2 (H) 04/10/2023 06:07 AM CREATININE - [facility] 0.9 04/05/2023 05:31 AM CREATININE - [facility] 1.5 (H) 03/22/2023 02:07 PM CREATININE - [facility] 1.1 (H) 01/29/2020 12:24 [...] Results Component Value Date/Time POTASSIUM - [facility] 3.8 04/10/2023 06:07 AM POTASSIUM - [facility] 3.6 04/05/2023 05:31 AM POTASSIUM - [facility] 4.8 03/22/2023 02:07 PM POTASSIUM - [facility] 5.1 01/29/2020 12:24 PM POTASSIUM - [facility] 5.1 11/12/2019 10:39 AM POTASSIUM - [facility] 4.6 08/22/2019 12:30 PM POTASSIUM-[facility] 4.2 12/31/2018 12:00 AM P[facility]ASSIUM[facility] 4.5 12/29/2018 12:00 AM Sodium Results: Lab Results Component Value Date/Time SODIUM - [facility] 144 04/10/2023 06:07 AM SODIUM - [facility] 144 04/05/2023 05:31 AM SODIUM - [facility] 137 03/22/2023 02:07 PM SODIUM - [facility] 139 01/29/2020 12:24 PM SODIUM - [facility] 141 11/12/2019 10:39 AM SODIUM - [facility] 140 08/22/2019 12:30 PM Patient Active Problem List Diagnosis Code Paroxysmal atrial tachycardia I47.19 Vitamin B12 deficiency E53.8 Generalized osteoarthritis M15.9 History of breast cancer Z85.3 Paroxysmal VT (HCC) I47.29 Spinal stenosis of lumbar region without neurogenic claudication M48.061 Anxiety state F41.1 DYSLIPIDEMIA, GOAL LDL BELOW 100 E78.5 Low HDL (under 40) E78.6 Type 2 diabetes mellitus with hemoglobin A1c goal of less than 7.5% (HCC) E11.9 Hypomagnesemia E83.42 Essential hypertension with goal blood pressure less than 140/90 I10 Primary osteoarthritis of left knee M17.12 Right carotid bruit R09.89 Atrial flutter (HCC) I48.92 PAF (paroxysmal atrial fibrillation) (HCC) I48.0 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 Pedal edema R60.0 Hypertensive kidney disease with stage 3b chronic kidney disease (HCC) I12.9, N18.32 Type 2 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 disease, without long-term current use of insulin (HCC) E11.22, N18.32 Seborrheic keratosis L82.1 Typical atrial flutter (HCC) I48.3 History of 2019 novel coronavirus disease (COVID-19) Z86.16 Full code status Z78.9 Past Medical History: Diagnosis Date AC APPEND [...] than 140/90 02/10/2016 GI hemorrhage 02/20/[address] [facility] Hemorrhoids, external without complications 09/17/2003 Influenza [...] Vitamin B deficiency 12/2007 low B12 level Past Surgical History: Procedure Laterality Date ANAL TAG REMOVAL, EXTERNAL, MULTIPLE 1979' BREAST BIOPSY-STEREOTACTIC 02/16/2006 Left breast (DCIS) at [facility] BCC COLONOSCOPY 02/2023 diverticulosis and internal hemorrhoids. [facility] COLONOSCOPY, DIAGNOSTIC (RECTUM) 10/26/2012 bleeding internal hemorrhoids- Dr. Starr COLONOSCOPY, DIAGNOSTIC (RECTUM) 02/16/2017 diverticulosis/COLONOSCOPY FLEXIBLE PROXIMAL DIAGNOSTIC performed by Scarlett Khan MD at [facility] COLONOSCOPY, SURGICAL 05/24/2006 Dr. Starr - normal EGD, FLEXIBLE, DIAGNOSTIC 12/25/2007 duodenal ulcer with bleed EXTENSIVE REPAIR OF VAGINA N/A 07/01/2015 COMBINED ANTEROPOSTERIOR COLPORRHAPHY WITH ENTEROCELE REPAIR performed by Linh Chan MD at [facility] HEMORRHOIDECTOMY, INTERNAL W/ BANDING INJECT DX/THER SUBSTANCE INTERLAMINAR LUMBAR/SACRAL W IMAGE GUIDE 01/25/2023 INJECTION SPINE LUMBAR OR SACRAL performed by Andrey Still DO at OR [facility] MRI L SPINE WO CONTRAST 12/25/2007 mild bulg L3-4, multifactoral Central canal stenosis L4-5, small central disc herniation L5-S1 OTHER Left breast biopsy (benign) PARTIAL MASTECTOMY 02/27/2006 02/27/2006 Left breast - partial mastectomy at [facility] [place]. Starr REMOVAL OF APPENDIX 08/19/2010 Appendectomy 08/19/2010 Dr. Joseph at [facility] REMOVAL OF OVARY/OVIDUCT(S) 1980s bilateral REMOVE CATARACT, INSERT LENS PROSTH 08/19/2008 left eye - Dr. Hunter REMOVE CATARACT, INSERT LENS PROSTH 10/14/2008 right eye REPAIR/REVISION OF PERINEUM N/A 07/01/2015 PERINEOPLASTY performed by Linh Chan MD at [facility] TOTAL ABD HYSTERECTOMY W/WO REMOVAL OF TUBE(S) fibroids UPPER GI ENDOSCOPY 02/2023 unremarkable, [facility] No family history on file. Family [...] bleed Doxycycline Neuro complications (Please comment) Hallucinations Ucmybklo-Ffdhfekwr-Kj [Iehgcodf-Ktykotetk-Ek] Caused eye problems Neosporin rash Sulfa Antibiotics nausea & vomiting Tramadol Hcl Unknown Triamterene ulcers Macrobid [Nitrofurantoin Monohydrate Macrocrystals] Neuro complications (Please comment) Headaches I have reviewed medications and allergies. Please refer to MAR in the facility's medical record forthe most up-to-date medication list as this cannot be edited in [employer]. Review of Systems: Constitutional ROS: No change in weight, less weakness, less fatigue and No fevers, sweats, or chills Nose ROS: No nasal stuffiness and No [...] No change in bowel habits, No significant change in appetite, No nausea, vomiting, diarrhea, or constipation and No dysphagia Skin/Integumentary ROS: No rash and No itching Neurologic ROS: No headaches and No seizures Psychiatric ROS: No depression, No anxiety and No psychosis Sleep: No sleep disorders OBJECTIVE: PHYSICALEXAM: I reviewed the most recent facilities vitals. General: alert, no distress, well nourished and well developed Eye Exam: Conjunctiva are pink and non-injected, sclera clear Nose: no mucosal erythema, no mucosal edema, no purulent discharge Oropharynx: no exudate, no erythema, lips, buccal mucosa, and tongue normal and mucous membranes are moist Neck: supple, no adenopathy, non-tender, neck veins flat, trachea midline Heart: regular rhythm, no murmurs and no gallops Lungs: normal respiratory rate and rhythm, no chest wall tenderness, lungs clear to auscultation Abdomen: abdomen soft, non-tender, normal bowel sounds and no masses or organomegaly Extremities: less edema, no clubbing, no cyanosis Neuro Exam: alert with fluent speech, no focal motor/sensory deficits Skin: skin color, texture, turgor are normal, dermatitis clearing left leg ASSESSMENT: Generalized weakness (Primary) Continues to improve Will continue with Therapy as directed Will recheck CBC and BMP next lab draw History of 2019 novel coronavirus disease (COVID-19) Recovered well Will follow Hypertensive kidney disease with stage 3b chronic kidney disease (HCC) Stable BP and CKD Continue with Amlodipine 2.5mg daily, Lisinopril 20mg daily and Toprol XL 100mg AM and 50mg PM withparameters PAF (paroxysmal atrial fibrillation) (HCC) Stable rate Continue Toprol XL 100mg AM and 50mg PM Cardiology will detemine when pt can resume anticoagulation Type 2 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 disease, without long-term current use of insulin (HCC) Stable glucoses Continue Glipizide ER 2.5mg daliy and Metformin 500mg BID PLAN: Reviewed CBC, BMP, Lytes and Continue present medication(s):as ordered. Assisted Home Treatment Given: Lab Draw CBC, BMP and Magnesium level next lab draw Electronically signed by: Kristal Brown PA-C Over 35 minutes were spent in this visit more than half the time was spent counselling or coordinating care. documented in this encounter Plan of Treatment Upcoming Encounters Date Type Department Care Team (Late st Contact Info) Description 06/05/2023 2:00 PM EDT Office Visit Gastroenterology, [facility] [address] [place] [phone] Jen Salgado CRNP [address] [place] [address] 07/04/2023 11:30 AM EDT Office Visit Family Medicine [address] [place] [phone] [place] [address] 07/27/2023 1:30 PM EDT Office Visit Cardiology [address] [place] [address] Cameron Becerra PA-C [address] [place] [address] 12/05/2023 2:30 PM EDT Office Visit Nephrology [address] [place] [address] Radha Wyman PA-C [address] [facility], [place] [address] Health Maintenance Due Date Last Done Comments Hepatitis B (1 of 3 - Risk 3-dose series) 1994 Depression Screening 08/03/2021 08/03/2020 Diabetic Foot Exam 02/08/2023 02/08/2022, 0 05/28/2020, 05/17/2019, Additional history exists Diabetic Eye Exam 03/15/2023 03/15/2022, , 11/03/2020, Additional history exists HbA1c 07/20/2023 01/19/2023, 08/2022, 12/03/2021, Additional history exists Albumin/Creatinine Ratio 11/17/2023 023, 03/29/2022, 01/06/2021, Additional history exists CKD PHOS USE SMARTSET 47750 03/22/202403/13, 01/19/2023, 11/21/2022, Additional history exists CKD HGB USE SMARTSET 00053 04/10/202404/10, 04/10/2023, 04/05/2023, Additional history exists DXA [...] History of 2019 novel coronavirus disease (COVID-19) Hypertensive kidney disease with stage 3b chronic kidney disease (HCC) PAF (paroxysmal atrial fibrillation) (HCC) Atrial fibrillation Type 2 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 disease, without long-term current use of insulin (HCC) documented in this encounter Care Teams Ensemble Member Relationship Specialty Start Date End Date Priyanka Falcon MD [address] [place] [address] [place] [phone] PCP - General Family Medicine 01/04/19 documented as of this encounter
--- OUTSIDE RECORDS SUMMARY | 2023-04-27 23:10 | External Medical Summary ---
Author Name Unknown Address Unknown Organization K01:LABORATORY [facility] - [address] [place] [address] Laboratory Report Ordering Provider Test Date Status STACY DIAZ 04/17/2023 05:32:00 Final Observation Date Value Abnormality Reference (Units ) Status Magnesium 04/17/2023 05:32:00 1.2 Below low normal 1.5 -2.6 (mg/dL) Final Performing Location LABORATORY [facility] - [address] [place] [address]
--- OUTSIDE RECORDS SUMMARY | 2023-04-27 23:10 | External Medical Summary ---
Author Name Unknown Address Unknown Organization [id number]:LABORATORY [place] [facility] - [address] [place] [address] Laboratory Report Ordering Provider Test Date Status STACY DIAZ 04/10/2023 06:07:00 Final Observation Date Value Abnormality Reference (Units ) Status BUN 04/10/2023 06:07:00 15 6-20 (mg/dL) Final Creatinine 04/10/2023 06:07:00 1.2 Above high normal 0.5-1.0 (mg/dL) Final Glomerular filtration rate/1.73 sq M.predicted [Volume Rate/Area] in Serum, Plasma or Blood by Creatinine-based formula (CKD-EPI) 04/10/2023 06:07:00 45 Below low normal >=60 (mL/min) Final eGFR is calculated based on the CKD-EPI 2020 equation SODIUM 04/10/2023 06:07:00 144 135-146 (m mol/L) Final Potassium 04/10/2023 06:07:00 3.8 3.5-5.1 (m mol/L) Final Cl 04/10/2023 06:07:00 104 98-107 (mm ol/L) Final CO2 04/10/2023 06:07:00 26 22-32 (mmo l/L) Final Anion gap 04/10/2023 06:07:00 14 7-15 (mmol /L) Final Glucose 04/10/2023 06:07:00 144 Above high normal 70 -120 (mg/dL) Final Calcium 04/10/2023 06:07:00 8.4 8.4-10.2 ( mg/dL) Final Performing Location LAB[facility]ATORY [facility] - [address] [place] [address]
--- OUTSIDE RECORDS SUMMARY | 2023-04-27 23:10 | External Medical Summary | Summary of Care ---
Author Name Unknown Organization [facility] Address [address] [place] [address] Phone [phone] Care Team Providers Care Software Firmware Engineer Name Role Phone Priyanka Falcon MD Primary Care Prov ider Reason for Visit * Reason Onset Date Comments Skilled Visit 04/10/2023 Encounter Details Date Type Department Care Team (Latest Contact Info) Description 04/10/2023 8:30 AM EST Group Home Visit [facility] [address] [place] [address] Kristal Brown PA-C [address] [place], [place] [phone] Generalized weakness*; History of 2019 novel coronavirus disease (COVID-19); Hypertensive kidney disease with stage 3b chronic kidney disease ([facility]); Type 2 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 disease, without long-term current use of insulin ([facility]); PAF (paroxysmal atrial fibrillation) ([facility]); Slow transit constipation Allergies Active Allergy Reactions Criticality Noted Date Comments Naproxen Sodium Bleeding High 12/03/2009 Hs of GI bleed Aspirin Bleeding High 12/03/2009 Doxycycline Neuro complications (Please comment) Medium 10/23/2010 Hallucinations Ibuprofen Bleeding High 12/03/2009 Hx of GI bleed Nitrofurantoin Monohydrate Macrocrystals Neuro complications (Please comment) Low 09/16/2009 Headaches Rhwslvbc-Eqbybvfgq-Qu 01/25/2011 Caused eye problems Neosporin 05/30/2003 rash Sulfa Antibiotics 05/11/2002 nausea & vomiting Tramadol Hcl Unknown 12/03/2009 Triamterene 11/16/2022 ulcers documented as of this encounter (statuses as of 04/10/2023) Medications Medication Sig Dispensed Refills Start Date [...] FOR ITCHING 30 g 2 05/28/2020 Active [id number] Verio In Vitro Strip (Glucose Blood)Indications:Ty pe 2 diabetes mellitus with hemoglobin A1c goal of less than 7.5% (HCC) Use to test blood sugar once a day DX e11.9 100 Strip 3 05/14/2021 Active [employer] Verio Flex System w/Device KitIndications:Type 2 diabetes [...] Tablet 1 09/08/2022 Active OneTouch Delica Plus [id number] :Type 2 diabetes mellitus with hemoglobin A1c [...] as of this encounter (statuses as of 04/10/2023) Active Problems Problem Noted Date Diagnosed Date [...] as of this encounter (statuses as of 04/10/2023) Resolved Problems Problem Noted Date Diagnosed Date [...] inactive term HTN, goal to be determined 02/06/200804/0904/09/2007 Other iron deficiency anemia 12/27/2007 03/04/2010 Overview: [...] as of this encounter (statuses as of 04/10/2023) Immunizations Name Administration Dates Next Due COVID-19 [...] 06/05/2023 2:00 PM EDT Office Visit Gastroenterology, [facility] [address] [place] [address] Jen Salgado CRNP [address] [place] [address] 07/04/2023 11:30 AM EDT Office Visit Family Medicine [address] [phone] [place] [address] 07/27/2023 1:30 PM EDT Office Visit Cardiology [address] [place] [address] Cameron Becerra PA-C [address] [place] [address] 12/05/2023 2:30 PM EDT Office Visit Nephrology [address] [place] [address] Radha Wyman PA-C [address] [facility] [address] Health Maintenance Due Date Last Done Comments Hepatitis B (1 of 3 - Risk 3-dose series) 1994 Depression Screening 08/03/2021 08/03/2020 Diabetic Foot Exam 02/08/2023 02/08/2022, 0 05/28/2020, 05/17/2019, Additional history exists Diabetic Eye Exam 03/15/2023 03/15/2022, , 11/03/2020, Additional history exists HbA1c 07/20/2023 01/19/2023, 0908/2022, 12/03/2021, Additional history exists Albumin/Creatinine Ratio 11/17/2023 023, 03/29/2022, 01/06/2021, Additional history exists CKD PHOS USE SMARTSET 63906 03/22/202403/13, 01/19/2023, 11/21/2022, Additional history exists CKD HGB USE SMARTSET 92612 04/10/202404/10, 04/10/2023, 04/05/2023, Additional history exists DXA [...] Primary Other malaise and fatigue History of 2018 novel coronavirus disease (COVID-19) Hypertensive kidney disease with stage 3b chronic kidney disease (HCC) Type 2 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 disease, without long-term current use of insulin (HCC) PAF (paroxysmal atrial fibrillation) (HCC) Atrial fibrillation Slow transit constipation documented in this encounter Care Teams Software Firmware Engineer Relationship Specialty Start Date End Date Priyanka Falcon MD [address] [place] [address] [place] [id number] PCP - General Family Medicine 01/04/19 documented as of this encounter
--- OUTSIDE RECORDS SUMMARY | 2023-04-27 23:10 | External Medical Summary | Summary of Care ---
Author Name Unknown Organization [facility] Address [address] [place] [address] Phone [phone] Care Team Providers Care Soft Water Mechanic Name Role Phone Priyanka Falcon MD Primary Care Prov ider Reason for Visit * Reason Onset Date Comments Skilled Visit 04/12/2023 Encounter Details Date Type Department Care Team (Latest Contact Info) Description 04/12/2023 7:30 AM EST Prison Visit [facility] [address] [place], [place] [phone] Kristal Brown PA-C [address] [place], [place] [phone] Generalized weakness*; History of 2019 novel coronavirus disease (COVID-19); Hypertensive kidney disease with stage 3b chronic kidney disease (HCC); Type 2 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 disease, without long-term current use of insulin (HCC) Allergies Active Allergy Reactions Criticality Noted Date Comments Naproxen Sodium Bleeding High 12/03/2009 Hs of GI bleed Aspirin Bleeding High 12/03/2009 Doxycycline Neuro complications (Please comment) Medium 10/23/2010 Hallucinations Ibuprofen Bleeding High 12/03/2009 Hx of GI bleed Nitrofurantoin Monohydrate Macrocrystals Neuro complications (Please comment) Low 09/16/2009 Headaches Tmnjpbph-Shfueedev-Xu 01/25/2011 Caused eye problems Neosporin 05/30/2003 rash Sulfa Antibiotics 05/11/2002 nausea & vomiting Tramadol Hcl Unknown 12/03/2009 Triamterene 11/16/2022 ulcers documented as of this encounter (statuses as of 04/12/2023) Medications Medication Sig Dispensed Refills Start Date [...] FOR ITCHING 30 g 2 05/28/2020 Active [employer]Touch Verio In Vitro Strip (Glucose Blood)Indications:Ty pe 2 diabetes mellitus with hemoglobin A1c goal of less than 7.5% (HCC) Use to test blood sugar once a day DX e11.9 100 Strip 3 05/14/2021 Active [employer] Wireless OEM SolutionsTouch Verio Flex System w/Device KitIndications:Type 2 diabetes [...] Tablet 1 09/08/2022 Active OneTouch Delica Plus [id number] :Type 2 diabetes mellitus with hemoglobin A1c [...] as of this encounter (statuses as of 04/12/2023) Active Problems Problem Noted Date Diagnosed Date [...] as of this encounter (statuses as of 04/12/2023) Resolved Problems Problem Noted Date Diagnosed Date [...] as of this encounter (statuses as of 04/12/2023) Immunizations Name Administration Dates Next Due COVID-19 [...] Progress Notes * Kristal Brown PA-C - 04/12/2023 11:08 AM EST Name: Cristine Benitez Date of :1935 TRANSITION EVENT: Type: Skilled visit Date: April 12 Code Status: Full Code This note pertains to care provided at [facility]. Please see facility medical record for original note. This note is not to be edited or addended in [employer]. Editing or addending needs to occur in the facilities medical record. Subjective: Cristine Benitez is a 87 year old female. Patient being seen for skilled visit Chief Complaint Patient presents with Skilled Visit HPI: here for rehabilitation following [facility] admission for generalized weakness, GI bleed (due to internal hemorrhoids) and Covid 19 infection Pt has been improving in function. Less fatigue, malaise. Participating in Therapy. No chest pains,dyspnea, chills or fever. Vital signs stable. Eating and drinking ok. BMs ok. Voiding ok. Less edema with Lasix daily, elevation of legs and Tubigrip. 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 [facility] COLONOSCOPY, DIAGNOSTIC (RECTUM) 10/26/2012 bleeding internal hemorrhoids- Dr. Starr COLONOSCOPY, DIAGNOSTIC (RECTUM) 02/16/2017 diverticulosis/COLONOSCOPY FLEXIBLE PROXIMAL DIAGNOSTIC performed by Scarlett Khan MD at ENDOSCOPY [facility] COLONOSCOPY, SURGICAL 05/24/2006 Dr. Starr - normal EGD, FLEXIBLE, DIAGNOSTIC 12/25/2007 duodenal ulcer with bleed EXTENSIVE REPAIR OF VAGINA N/A 07/01/2015 COMBINED ANTEROPOSTERIOR COLPORRHAPHY WITH ENTEROCELE REPAIR performed by Linh Chan MD at OR [facility] HEMORRHOIDECTOMY, INTERNAL W/ BANDING INJECT DX/THER SUBSTANCE INTERLAMINAR LUMBAR/SACRAL W IMAGE GUIDE 01/25/2023 INJECTION SPINE LUMBAR OR SACRAL performed by Andrey Still DO at [facility] MRI L SPINE WO CONTRAST 12/25/2007 mild bulg L3-4, multifactoral Central canal stenosis L4-5, small central disc herniation L5-S1 OTHER Left breast biopsy (benign) PARTIAL MASTECTOMY 02/27/2006 02/27/2006 Left breast - partial mastectomy at [facility] Dr. Starr REMOVAL OF APPENDIX 08/19/2010 Appendectomy 08/19/2010 Dr. Joseph at [facility] REMOVAL OF OVARY/OVIDUCT(S) 1980s bilateral REMOVE CATARACT, INSERT LENS PROSTH 08/19/2008 left eye - Dr. Hunter REMOVE CATARACT, INSERT LENS PROSTH 10/14/2008 right eye REPAIR/REVISION OF PERINEUM N/A 07/01/2015 PERINEOPLASTY performed by Linh Chan MD at OR [facility] TOTAL ABD HYSTERECTOMY W/WO REMOVAL OF TUBE(S) fibroids UPPER GI ENDOSCOPY 02/2023 unremarkable, [facility] No family history on file. Family Status [...] bleed Doxycycline Neuro complications (Please comment) Hallucinations Byzlapeg-Snnoglfwd-Sz [Tsowxizu-Mlvfmpdeo-Py] Caused eye problems Neosporin rash Sulfa Antibiotics nausea & vomiting Tramadol Hcl Unknown Triamterene ulcers Macrobid [Nitrofurantoin Monohydrate Macrocrystals] Neuro complications (Please comment) Headaches I have reviewed medications and allergies. Please refer to MAR in the facility's medical record forthe most up-to-date medication list as this cannot be edited in [employer] Review of Systems: Constitutional ROS: + change in weight, less weakness, less fatigue [...] No chest pain, No shortness of breath, less edema, No palpitations and No syncope Gastrointestinal [...] neck veins flat, trachea midline Heart: regular rate & rhythm, no murmurs and no gallops Lungs: normal respiratory rate and rhythm, no chest wall tenderness, lungs clear to auscultation Abdomen: abdomen soft, non-tender, normal bowel sounds and no masses or organomegaly Extremities: less edema, no clubbing, no cyanosis Skin: skin color, texture, turgor are normal, no rashes or significant lesions ASSESSMENT: Generalized weakness (Primary) Less weakness. Labs reviewed Continue with Therapy as directed History of 2019 novel coronavirus disease (COVID-19) Stable Recovered well Will follow Hypertensive kidney disease with stage 3b chronic kidney disease (HCC) Stable renal function and BP's Continue Lisinopril 20mg daily, Toprol XL 100mg dailiy and Norvasc 2.5mg daily Type 2 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 disease, without long-term current use of insulin (HCC) Stable glucoses Continue with Glipiizide ER 2.5mg daily and Metformin 500mg BID PLAN: Reviewed CBC, BMP, Lytes and Continue present medication(s):as ordered. Long-Term Home Treatment Given: as above Electronically signed by: Kristal Brown PA-C Over 35 minutes were spent in this visit more than half the time was spent counselling or coordinating care. documented in this encounter Plan of Treatment Upcoming Encounters Date Type Department Care Team (Late st Contact Info) Description 06/05/2023 2:00 PM EDT Office Visit Gastroenterology, [facility] [address] [place] [address] Jen Salgado CRNP [address] [place] [address] 07/04/2023 11:30 AM EDT Office Visit Family Medicine [address] [place] [phone] Liliane L[address] [place] [address] 07/27/2023 1:30 PM EDT Office Visit Cardiology [address] [place] [address] Cameron Becerra PA-C [address] [place] [address] 12/05/2023 2:30 PM EDT Office Visit Nephrology [address] [place] [address] Radha Wyman PA-C [address] [place] [address] Health Maintenance Due Date Last Done Comments [...] Additional history exists CKD PHOS USE SMARTSET 44037 03/22/202403/13, 01/19/2023, 11/21/2022, Additional history exists CKD HGB USE SMARTSET 35785 04/10/202404/10, 04/10/2023, 04/05/2023, Additional history exists DXA [...] (HCC) documented in this encounter Care Teams Soft Water Mechanic Relationship Specialty Start Date End Date Priyanka Falcon MD [address] [place] [address] [place] [address] PCP - General Family Medicine 01/04/19 documented as of this encounter
--- OUTSIDE RECORDS SUMMARY | 2023-04-27 23:11 | External Medical Summary | Summary of Care ---
Author Name Unknown Organization [facility] Address [address] [place] [address] Phone [phone] Care Team Providers Care Signalman Name Role Phone Priyanka Falcon MD Primary Care Prov ider Reason for Visit * Reason Onset Date Comments Skilled Visit 04/07/2023 Encounter Details Date Type Department Care Team (Latest Contact Info) Description 04/07/2023 9:00 AM EST [facility] Visit [facility] [address] [place] [address] Kristal Brown PA-C [address] [place], [place] [phone] Generalized weakness*; History of 2019 novel coronavirus disease (COVID-19); PAF (paroxysmal atrial fibrillation) ([facility]); Hypertensive kidney disease with stage 3b chronic kidney disease ([facility]); Type 2 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 disease, without long-term current use of insulin ([facility]); Fall from bed, initial encounter Allergies Active Allergy Reactions Criticality Noted Date Comments Naproxen Sodium Bleeding High 12/03/2009 Hs of GI bleed Aspirin Bleeding High 12/03/2009 Doxycycline Neuro complications (Please comment) Medium 10/23/2010 Hallucinations Ibuprofen Bleeding High 12/03/2009 Hx of GI bleed Nitrofurantoin Monohydrate Macrocrystals Neuro complications (Please comment) Low 09/16/2009 Headaches Pmjtnwmv-Snbzcwcyd-Us 01/25/2011 Caused eye problems Neosporin 05/30/2003 rash Sulfa Antibiotics 05/11/2002 nausea & vomiting Tramadol Hcl Unknown 12/03/2009 Triamterene 11/16/2022 ulcers documented as of this encounter (statuses as of 04/07/2023) Medications Medication Sig Dispensed Refills Start Date [...] FOR ITCHING 30 g 2 05/28/2020 Active [employer] Verio In Vitro Strip (Glucose Blood)Indications:Ty pe 2 diabetes mellitus with hemoglobin A1c goal of less than 7.5% (HCC) Use to test blood sugar once a day DX e11.9 100 Strip 3 05/14/2021 Active [employer] NetworkTouch Verio Flex System w/Device KitIndications:Type 2 diabetes [...] Tablet 1 09/08/2022 Active OneTouch Delica Plus [id number] :Type 2 diabetes mellitus with hemoglobin A1c [...] Pain, Severe. 40 Tablet 0 04/06/2023 Active documented as of this encounter (statuses as of 04/07/2023) Active Problems Problem Noted Date Diagnosed Date [...] as of this encounter (statuses as of 04/07/2023) Resolved Problems Problem Noted Date Diagnosed Date [...] as of this encounter (statuses as of 04/07/2023) Immunizations Name Administration Dates Next Due COVID-19 [...] 06/05/2023 2:00 PM EDT Office Visit Gastroenterology, [facility] [address] [place] [address] Jen Salgado CRNP [address] [place] [address] 07/04/2023 11:30 AM EDT Office Visit Family Medicine [address] [place] [phone] Liliane L[address] [place] [address] 07/27/2023 1:30 PM EDT Office Visit Cardiology [address] [place] [address] Cameron Becerra PA-C [address] [place] [address] 12/05/2023 2:30 PM EDT Office Visit Nephrology [address] [place] [address] Radha Wyman PA-C [address] [place] [address] Health Maintenance Due Date Last Done Comments Hepatitis B (1 of 3 - Risk 3-dose series) 1995 Depression Screening 08/03/2021 08/03/2020 Diabetic Foot Exam 02/08/2023 02/08/2022, 0 05/28/2020, 05/17/2019, Additional history exists Diabetic Eye Exam 03/15/2023 03/15/2022, , 11/03/2020, Additional history exists HbA1c 07/20/2023 01/19/2023, 08/2022, 12/03/2021, Additional history exists Albumin/Creatinine Ratio 11/17/2023 023, 03/29/2022, 01/06/2021, Additional history exists CKD PHOS USE SMARTSET 04739 03/22/202403/13, 01/19/2023, 11/21/2022, Additional history exists CKD HGB USE SMARTSET 05252 04/05/202404/05, 04/05/2023, 03/22/2023, Additional history exists DXA Scan 12/09/2027 12/08/2020, [...] History of 2018 novel coronavirus disease (COVID-19) PAF (paroxysmal atrial fibrillation) (HCC) Atrial fibrillation Hypertensive kidney disease with stage 3b chronic kidney disease (HCC) Type 2 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 disease, without long-term current use of insulin (HCC) Fall from bed, initial encounter documented in this encounter Care Teams Signalman Relationship Specialty Start Date End Date Priyanka Falcon MD [address] [place] [address] [place] [address] PCP - General Family Medicine 01/04/19 documented as of this encounter
--- OUTSIDE RECORDS SUMMARY | 2023-04-27 23:11 | External Medical Summary ---
Author Name Unknown Address Unknown Organization K[facility] [address] [place] [address] Laboratory Report Ordering Provider Test Date Status STACY DIAZ 04/05/2023 05:31:00 Final Observation Date Value Abnormality Reference (Units ) Status SYNC LEUKOCYTES IN BLOOD BY AUTOMATED COUNT 04/05/2023 05:31:00 4.54 4.00-10.80 (K/uL) Final Segs 04/05/2023 05:31:00 60.6 40.0-75.0 (%) Final Lymphs % 04/05/2023 05:31:00 23.3 18.0-42.0 (%) Final Monos 04/05/2023 05:31:00 12.8 Above high normal 1.0-11.0 (%) Final Eosinophils 04/05/2023 05:31:00 3.3 0.0-6.0 (%) Final Basos 04/05/2023 05:31:00 0.0 0.0-2.0 (%) Final Absolute Segs 04/05/2023 05:31:00 2.75 1.80-7.70 (K/uL) Final Lymphs, absolute 04/05/2023 05:31:00 1.06 1.00-4.80 (K/ul) Final Monos, Abs 04/05/2023 05:31:00 0.58 0.00-1.10 (K/uL) Final Eos, Abs 04/05/2023 05:31:00 0.15 0.00-0.70 (K/uL) Final Basos, Abs 04/05/2023 05:31:00 0.00 0.00-0.20 (K/uL) Final Performing Location [facility] [place] [address]
--- OUTSIDE RECORDS SUMMARY | 2023-04-27 23:11 | External Medical Summary | Summary of Care ---
Author Name Unknown Organization [facility] Address [address] [place] [address] Phone [phone] Care Team Providers Care Plant Production Manager Name Role Phone Priyanka Falcon MD Primary Care Prov ider Encounter Details Date Type Department Care Team (Late st Contact Info) Description 04/05/2023 Orders Only Lab Mobile Phlebotomy [facility] [address] [place] [address] Inder Mcdermott MD [address] [place] [address] [place] [address] Edema*; Chronic kidney disease (CKD); HTN, goal below 140/90 Allergies Active Allergy Reactions Criticality Noted Date Comments Naproxen Sodium Bleeding High 12/03/2009 Hs of GI bleed Aspirin Bleeding High 12/03/2009 Doxycycline Neuro complications (Please comment) Medium 10/23/2010 Hallucinations Ibuprofen Bleeding High 12/03/2009 Hx of GI bleed Nitrofurantoin Monohydrate Macrocrystals Neuro complications (Please comment) Low 09/16/2009 Headaches Xxkvwmef-Btokhodql-Qh 01/25/2011 Caused eye problems Neosporin 05/30/2003 rash Sulfa Antibiotics 05/11/2002 nausea & vomiting Tramadol Hcl Unknown 12/03/2009 Triamterene 11/16/2022 ulcers documented as of this encounter (statuses as of 04/05/2023) Medications Medication Sig Dispensed Refills Start Date [...] DX e11.9 100 Strip 3 05/14/2021 Active [employer]Touch Verio Flex System w/Device KitIndications:Type 2 diabetes mellitus with hemoglobin A1c goal of less than 7.5% (HCC) Use as directed . Use to test blood sugar Dx e11.9 1 Kit 0 05/14/2021 Active Zoster Vac Recomb Adjuvanted 50 MCG/0.5ML Intramuscular Suspension Reconstituted (Shingrix)Indication s:Need for shingles vaccine Inject 0.5 mL into a large muscle now and repeat dose in 60 to 180 days 1 Each 1 03/29/2022 Active Additional Information Patient not taking.Reported on 01/19/2023 Lisinopril 20 MG Oral Tablet (Prinivil)Indication s:Essential [...] Tablet 1 09/08/2022 Active OneTouch Delica Plus [id number] :Type 2 diabetes mellitus with hemoglobin A1c [...] mouth in the morning. 0 04/04/2023 Active documented as of this encounter (statuses as of 04/05/2023) Active Problems Problem Noted Date Diagnosed Date [...] as of this encounter (statuses as of 04/05/2023) Resolved Problems Problem Noted Date Diagnosed Date [...] as of this encounter (statuses as of 04/05/2023) Immunizations Name Administration Dates Next Due COVID-19 [...] Care Team (Late st Contact Info) Description 04/05/2023 8:00 AM EST [facility] Visit [address] [place] [address] Inder Mcdermott MD [address] [place] [address] [place] [address] 04/05/2023 8:30 AM EST Laboratory Lab Mobile Phlebotomy [address] [place] [address] [place] [address] Arrived 06/05/2023 2:00 PM EDT Office Visit Gastroenterology, [facility] [address] [place] [address] Jen Salgado CRNP [address] [place] [address] 07/04/2023 11:30 AM EDT Office Visit Family Medicine [address] [place] [phone] [address] [place] [address] 07/27/2023 1:30 PM EDT Office Visit Cardiology [address] [place] [address] Cameron Becerra PA-C [address] [place] [address] 12/05/2023 2:30 PM EDT Office Visit Nephrology [address] [place] [address] ZemaRadha holman PA-C [address] [place] [address] Scheduled Orders Name Type Priority Associated Diagnoses Orde r Schedule CBC WITH WBC DIFFERENTIAL Lab Routine Edema Chronic kidney disease (CKD) HTN, goal below 140/90 Expected: 04/05/2023, Expires: 04/05/2024 BASIC METABOLIC PANEL Lab Routine Edema Chronic kidney disease (CKD) HTN, goal below 140/90 Expected: 04/05/2023, Expires: 04/05/2024 MAGNESIUM Lab Routine Edema Chronic kidney disease (CKD) HTN, goal below 140/90 Expected: 04/05/2023, Expires: 04/05/2024 Health Maintenance Due Date Last Done Comments Hepatitis B (1 of 3 - Risk 3-dose series) 1995 Depression Screening 08/03/2021 08/03/2020 Diabetic Foot Exam 02/08/2023 02/08/2022, 0 05/28/2020, 05/17/2019, Additional history exists Diabetic Eye Exam 03/15/2023 03/15/2022, , 11/03/2020, Additional history exists HbA1c 07/20/2023 01/19/2023, 0908/2022, 12/03/2021, Additional history exists Albumin/Creatinine Ratio 11/17/2023 023, 03/29/2022, 01/06/2021, Additional history exists CKD HGB USE SMARTSET 09773 03/22/202403/22, 03/22/2023, 03/19/2023, Additional history exists CKD PHOS USE SMARTSET 18506 03/22/202403/13, 01/19/2023, 11/21/2022, Additional history exists DXA [...] as of this encounter Visit Diagnoses Diagnosis Edema- Primary Chronic kidney disease (CKD) Chronic kidney disease, unspecified HTN, goal below 140/90 Unspecified essential hypertension documented in this encounter Care Teams Plant Production Manager Relationship Specialty Start Date End Date Priyanka Falcon MD [address] [place] [address] [place] [address] PCP - General Family Medicine 01/04/19 documented as of this encounter
--- OUTSIDE RECORDS SUMMARY | 2023-04-27 23:11 | External Medical Summary | Continuity Of Care Document ---
Author Name Unknown Address [address] [place] [address] Organization [facility] ( ) Care Team Providers Care Stone Unloader Name Role Phone Inder Mcdermott Primary Care Provider [phone] Problems Code Description Start Date End Date Status Z86.16 Personal history of COVID-19 04/04/2023/00/0 000 Active R53.1 Weakness 04/04/2023 Active N17.9 Acute kidney failure, unspecified 04/04/2023 Active E83.42 Hypomagnesemia 04/04/2023 Active I50.32 Chronic diastolic (congestive) heart failure /00/0000 Active I10. Essential (primary) hypertension 04/04/2023/ Active K92.1 Melena 04/04/2023 Active D64.9 Anemia, unspecified 04/04/2023 Activ e I48.91 Unspecified atrial fibrillation 04/04/2023 00/0 Active U07.1 COVID-19 04/04/2023 Active Z86.16 Personal history of COVID-19 04/04/2023/00/0 000 Active VITAL SIGNS Date Time Diastolic blood pressure Systolic blood pressure Body height Body weight Temperature SpO2 Blood Sugar Pulse Respirations 123 39669 3 62.00 mm[Hg] - Sitting 130.00 mm[Hg] - Sitting 98.70 Ear 97.00 % 72.00/ min 18.00/min 98749 123 03091 2 153.00 NI 30597 123 67156 6 62 NI 99483 123 29529 6 62.00 mm[Hg] - Sitting 130.00 mm[Hg] - Sitting 98.00 Oral 72.00/ min 18.00/min 49219 124 63881 0 18746 124 99806 9 147.00 NI 50280 124 81731 8 75.00 mm[Hg] - Sitting 132.00 mm[Hg] - Sitting 98.50 Ear 84.00/ min 18.00/min 16563 124 21996 6 75.00 mm[Hg] - Sitting 117.00 mm[Hg] - Sitting 99.10 Oral 91.00 % 101.00 /min 20.00/min 08252 124 96245 7 75.00 mm[Hg] - Sitting 117.00 mm[Hg] - Sitting 99.10 Oral 101.00 /min 20.00/min 50036 125 03220 7 34974 125 67801 8 25863 125 67781 9 146.00 NI 97980 125 88382 9 78.00 mm[Hg] - Sitting 145.00 mm[Hg] - Sitting 97.80 Oral 98.00 % 68.00/ min 18.00/min 06448 125 40079 8 146.00 NI 21634 125 66568 0 88501 125 80174 8 13405 125 98136 5 78.00 mm[Hg] - Sitting 145.00 mm[Hg] - Sitting 97.80 Oral 68.00/ min 18.00/min 95940 126 37120 4 61.00 mm[Hg] - Sitting 100.00 mm[Hg] - Sitting 97.80 Oral 93.00 % 96.00/ min 16.00/min 53222 127 99900 8 70.00 mm[Hg] - Sitting 110.00 mm[Hg] - Sitting 98.10 Ear 95.00 % 89.00/ min 18.00/min 50928 128 36092 7 60.00 mm[Hg] - Sitting 120.00 mm[Hg] - Sitting 98.20 Ear 96.00 % 82.00/ min 18.00/min 28883 129 14452 5 57.00 mm[Hg] - Sitting 95.00 mm[Hg] - Sitting 97.90 Oral 97.00 % 85.00/ min 18.00/min 76235 129 98581 3 138.00 NI Immunizations Vaccine Date Status COVID-19 04/17/2020 Completed COVID-19 05/15/2020 Completed COVID-19 01/18/2021 Completed COVID-19 07/26/2021 Completed COVID-19 12/27/2021 Completed COVID-19 01/04/2023 Completed Influenza 11/16/2022 Completed (PCV13)Pneumococcal 07/29/2014 Completed (PPSV23)Pneumococcal 10/07/2002 Completed TDaP 09/11/2007 Completed
--- OUTSIDE RECORDS SUMMARY | 2023-04-27 23:11 | External Medical Summary | Summary of Care ---
Author Name Unknown Organization [facility] Address [address] [place] [address] Phone [phone] Care Team Providers Care Stacker Tender Name Role Phone Priyanka Falcon MD Primary Care Prov ider Reason for Visit * Reason Onset Date Comments Medication Refill 04/06/2023 Encounter Details Date Type Department Care Team (Late st Contact Info) Description 04/06/2023 Refill [facility] [address] [place] [address] Kristal Brown PA-C [address] [place], [place] [id number] Bilateral low back pain without sciatica, unspecified chronicity Allergies Active Allergy Reactions Criticality Noted Date Comments Naproxen Sodium Bleeding High 12/03/2009 Hs of GI bleed Aspirin Bleeding High 12/03/2009 Doxycycline Neuro complications (Please comment) Medium 10/23/2010 Hallucinations Ibuprofen Bleeding High 12/03/2009 Hx of GI bleed Nitrofurantoin Monohydrate Macrocrystals Neuro complications (Please comment) Low 09/16/2009 Headaches Yuozqbfi-[id number]-Ui 01/25/2011 Caused eye problems Neosporin 05/30/2003 rash Sulfa Antibiotics 05/11/2002 nausea & vomiting Tramadol Hcl Unknown 12/03/2009 Triamterene 11/16/2022 ulcers documented as of this encounter (statuses as of 04/06/2023) Medications Medication Sig Dispensed Refills Start Date [...] 05/14/2021 Active Lisinopril 20 MG Oral Tablet (Prinivil)Indicati [...] Tablet 1 09/08/2022 Active OneTouch Delica Plus [id number] ns:Type 2 diabetes mellitus with hemoglobin A1c [...] 03/27/2023 Active LORazepam 0.5 MG Oral Tablet (Ativan)Indication [...] mouth in the morning. 0 04/04/2023 Active HYDROcodone-Acetam inophen 5-325 MG Oral TabletIndications: Bilateral low back pain without sciatica, unspecified chronicity Take 1 Tablet by mouth 2 times a day as needed for Pain, Severe. 40 Tablet 0 04/06/2023 Active HYDROcodone-Acetam inophen 5-325 MG Oral TabletIndications: Bilateral low back pain without sciatica, unspecified chronicity Take 1 Tablet by mouth 2 times a day as needed for Pain, Severe. 0 04/06/2023 Discontinue d(Refill) documented as of this encounter (statuses as of 04/06/2023) Active Problems Problem Noted Date Diagnosed Date [...] as of this encounter (statuses as of 04/06/2023) Resolved Problems Problem Noted Date Diagnosed Date [...] as of this encounter (statuses as of 04/06/2023) Immunizations Name Administration Dates Next Due COVID-19 [...] encounter Miscellaneous Notes * Telephone Encounter - Kristal Brown PA-C - 04/06/2023 12:08 PM EST RX HYDROCODONE/APAP 5/325MG Q SIX HOURS PRN MOD TO SEVERE PAIN #40 R0 SENT ELECTRONICALLY TO [facility] documented in this encounter Plan of Treatment Upcoming Encounters Date Type Department Care Team (Late st Contact Info) Description 06/05/2023 2:00 PM EDT Office Visit Gastroenterology, [facility] [address] [place] [id number] Jen Salgado CRNP [address] [place] [address] 07/04/2023 11:30 AM EDT Office Visit Family Medicine [address] [place] [phone] Liliane [address] [place] [address] 07/27/2023 1:30 PM EDT Office Visit Cardiology [address] [place] [address] Cameron Becerra PA-C [address] [place] [address] 12/05/2023 2:30 PM EDT Office Visit Nephrology [address] [place] [address] Radha Wyman PA-C [address] [place] [address] Health Maintenance Due Date Last Done Comments [...] Additional history exists CKD PHOS USE SMARTSET 05455 03/22/202403/13, 01/19/2023, 11/21/2022, Additional history exists CKD HGB USE SMARTSET 73222 04/05/202404/05, 04/05/2023, 03/22/2023, Additional history exists DXA [...] chronicity documented in this encounter Care Teams Stacker Tender Relationship Specialty Start Date End Date Priyanka Falcon MD [address] [place] [address] [place] [address] PCP - General Family Medicine 01/04/19 documented as of this encounter
--- OUTSIDE RECORDS SUMMARY | 2023-04-27 23:11 | External Medical Summary | Continuity Of Care Document ---
Author Name Unknown Address [address] [place] [address] Organization [facility] ( ) Care Team Providers Care Detention Sergeant Name Role Phone Inder Mcdermott Primary Care Provider [phone] Problems Code Description Start Date End Date Status Z86.16 Personal history of COVID-19 04/04/2023/00/0 000 Active R53.1 Weakness 04/04/2023 Active N17.9 Acute kidney failure, unspecified 04/04/2023 Active E83.42 Hypomagnesemia 04/04/2023 Active I50.22 Chronic systolic (congestive) heart failure /00/0000 Active I10. Essential (primary) hypertension 04/04/2023/ Active K92.1 Melena 04/04/2023 Active D64.9 Anemia, unspecified 04/04/2023 Activ e I48.91 Unspecified atrial fibrillation 04/04/2023 00/0 Active Z86.16 Personal history of COVID-19 04/04/2023/00/0 000 Active VITAL SIGNS Date Time Diastolic blood pressure Systolic blood pressure Body height Body weight Temperature SpO2 Blood Sugar Pulse Respirations 16575 123 22287 3 62.00 mm[Hg] - Sitting 130.00 mm[Hg] - Sitting 98.70 Ear 97.00 % 72.00/ min 18.00/min 58065 123 99679 2 153.00 NI 19596 123 16481 6 62 NI 78623 123 02875 6 62.00 mm[Hg] - Sitting 130.00 mm[Hg] - Sitting 98.00 Oral 72.00/ min 18.00/min 44943 124 35229 0 55447 124 35285 9 147.00 NI 124 77768 8 75.00 mm[Hg] - Sitting 132.00 mm[Hg] - Sitting 98.50 Ear 84.00/ min 18.00/min 74738 124 22087 6 75.00 mm[Hg] - Sitting 117.00 mm[Hg] - Sitting 99.10 Oral 91.00 % 101.00 /min 20.00/min 58988 124 98731 7 75.00 mm[Hg] - Sitting 117.00 mm[Hg] - Sitting 99.10 Oral 101.00 /min 20.00/min 75400 125 34574 7 32897 125 18172 8 48289 125 02466 9 146.00 NI 96397 125 33893 9 78.00 mm[Hg] - Sitting 145.00 mm[Hg] - Sitting 97.80 Oral 98.00 % 68.00/ min 18.00/min 14588 125 51105 8 146.00 NI 29144 125 06394 0 99363 125 42643 8 63957 125 02713 5 78.00 mm[Hg] - Sitting 145.00 mm[Hg] - Sitting 97.80 Oral 68.00/ min 18.00/min 22562 126 31746 4 61.00 mm[Hg] - Sitting 100.00 mm[Hg] - Sitting 97.80 Oral 93.00 % 96.00/ min 16.00/min 00570 127 11459 8 70.00 mm[Hg] - Sitting 110.00 mm[Hg] - Sitting 98.10 Ear 95.00 % 89.00/ min 18.00/min 20889 128 60752 7 60.00 mm[Hg] - Sitting 120.00 mm[Hg] - Sitting 98.20 Ear 96.00 % 82.00/ min 18.00/min 34013 129 66842 5 57.00 mm[Hg] - Sitting 95.00 mm[Hg] - Sitting 97.90 Oral 97.00 % 85.00/ min 18.00/min 53728 129 32278 3 138.00 NI Immunizations Vaccine Date Status COVID-19 04/17/2020 Completed COVID-19 05/15/2020 Completed COVID-19 01/18/2021 Completed COVID-19 07/26/2021 Completed COVID-19 12/27/2021 Completed COVID-19 01/04/2023 Completed Influenza 11/16/2022 Completed (PCV13)Pneumococcal 07/29/2014 Completed (PPSV23)Pneumococcal 10/07/2002 Completed TDaP 09/11/2007 Completed
--- OUTSIDE RECORDS SUMMARY | 2023-04-27 23:11 | External Medical Summary | Continuity Of Care Document ---
Author Name Unknown Address [address] [place] [address] Organization [facility] ( ) Care Team Providers Care Wool Grader Name Role Phone Inder Mcdermott Primary Care Provider [phone] Problems Code Description Start Date End Date [...] weight Temperature SpO2 Blood Sugar Pulse Respirations 09523 123 93710 3 62.00 mm[Hg] - Sitting 130.00 mm[Hg] - Sitting 98.70 Ear 97.00 % 72.00/ min 18.00/min 49532 123 31285 2 153.00 NI 10748 123 45429 6 62 NI 43006 123 14139 6 62.00 mm[Hg] - Sitting 130.00 mm[Hg] - Sitting 98.00 Oral 72.00/ min 18.00/min 20614 124 22398 0 29171 124 39151 9 147.00 NI 124 23292 8 75.00 mm[Hg] - Sitting 132.00 mm[Hg] - Sitting 98.50 Ear 84.00/ min 18.00/min 69158 124 92142 6 75.00 mm[Hg] - Sitting 117.00 mm[Hg] - Sitting 99.10 Oral 91.00 % 101.00 /min 20.00/min 75998 124 44441 7 75.00 mm[Hg] - Sitting 117.00 mm[Hg] - Sitting 99.10 Oral 101.00 /min 20.00/min 21206 125 72869 7 23185 125 12077 8 20436 125 71040 9 146.00 NI 91541 125 09821 9 78.00 mm[Hg] - Sitting 145.00 mm[Hg] - Sitting 97.80 Oral 98.00 % 68.00/ min 18.00/min 48595 125 79593 8 146.00 NI 82862 125 05093 0 48243 125 77135 8 99318 125 02208 5 78.00 mm[Hg] - Sitting 145.00 mm[Hg] - Sitting 97.80 Oral 68.00/ min 18.00/min 36760 126 22756 4 61.00 mm[Hg] - Sitting 100.00 mm[Hg] - Sitting 97.80 Oral 93.00 % 96.00/ min 16.00/min 55096 127 40263 8 70.00 mm[Hg] - Sitting 110.00 mm[Hg] - Sitting 98.10 Ear 95.00 % 89.00/ min 18.00/min 11927 128 78145 7 60.00 mm[Hg] - Sitting 120.00 mm[Hg] - Sitting 98.20 Ear 96.00 % 82.00/ min 18.00/min 28342 129 87693 5 57.00 mm[Hg] - Sitting 95.00 mm[Hg] - Sitting 97.90 Oral 97.00 % 85.00/ min 18.00/min 22966 129 68227 3 138.00 NI Immunizations Vaccine Date Status COVID-19 04/17/2020 Completed COVID-19 05/15/2020 Completed COVID-19 01/18/2021 Completed COVID-19 07/26/2021 Completed COVID-19 12/27/2021 Completed COVID-19 01/04/2023 Completed Influenza 11/16/2022 Completed (PCV13)Pneumococcal 07/29/2014 Completed (PPSV23)Pneumococcal 10/07/2002 Completed TDaP 09/11/2007 Completed
--- OUTSIDE RECORDS SUMMARY | 2023-04-27 23:11 | External Medical Summary | Summary of Care ---
Author Name Unknown Organization [facility] Address [address] [place] [address] Phone [phone] Care Team Providers Care Lbd Teacher Name Role Phone Priyanka Falcon MD Primary Care Prov ider Reason for Visit * Reason Onset Date Comments Fdc Visit - Admission 04/05/2023 Encounter Details Date Type Department Care Team (Latest Contact Info) Description 04/05/2023 8:00 AM EST Fdc Visit [address] [place] [address] Inder Mcdermott MD [address] [place] [address] [place] [phone] Generalized weakness*; History of 2019 novel coronavirus disease (COVID-19); Acute blood loss anemia; Hypomagnesemia; PAF (paroxysmal atrial fibrillation) ([facility]); Typical atrial flutter (HCC); Hypertensive kidney disease with stage 3b chronic kidney disease ([facility]); Anemia due to stage 3b chronic kidney disease ([facility]); Essential hypertension with goal blood pressure less than 140/90; Type 2 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 disease, without long-term current use of insulin ([facility]) Allergies Active Allergy Reactions Criticality Noted Date Comments Naproxen Sodium Bleeding High 12/03/2009 Hs of GI bleed Aspirin Bleeding High 12/03/2009 Doxycycline Neuro complications (Please comment) Medium 10/23/2010 Hallucinations Ibuprofen Bleeding High 12/03/2009 Hx of GI bleed Nitrofurantoin Monohydrate Macrocrystals Neuro complications (Please comment) Low 09/16/2009 Headaches Lkbmxppx-Irgshkxah-Li 01/25/2011 Caused eye problems Neosporin 05/30/2003 rash [...] FOR ITCHING 30 g 2 05/28/2020 Active Omni[employer] In Vitro Strip (Glucose Blood)Indications: Type 2 diabetes mellitus with hemoglobin A1c goal of less than 7.5% (HCC) Use to test blood sugar once a day DX e11.9 100 Strip 3 05/14/2021 Active meXBT / [employer] Flex System w/Device KitIndications:Typ e 2 diabetes [...] AND SUPPER 180 Tablet 1 09/08/2022 Active [employer] Delica Plus [id number] ns:Type 2 diabetes mellitus with hemoglobin A1c [...] hemoglobin A1c goal of less than 7.0% ([facility]) USE TO TEST ONCE PER DAY. E11.9 100 Strip 5 12/08/2022 Active glipiZIDE ER 2.5 MG Oral Tablet Extended Release 24 Hour (Glucotrol XL)Indications:Typ e 2 diabetes mellitus with hemoglobin A1c goal of less than 7.5% ([facility]) TAKE 1 TABLET BY MOUTH DAILY [...] mouth in the morning. 0 04/04/2023 Active Zoster Vac Recomb Adjuvanted 50 MCG/0.5ML Intramuscular Suspension Reconstituted (Shingrix)Indicati ons:Need for shingles vaccine Inject 0.5 mL into a large muscle now and repeat dose in 60 to 180 days 1 Each 1 03/29/2022 4 Discontinued Furosemide 40 MG Oral Tablet (Lasix) One tablet Monday, day, Monday, and Monday 0 03/22/2023 4 Discontinued documented as of this encounter (statuses [...] as of this encounter Progress Notes * Inder Mcdermott MD - 04/05/2023 11:34 AM EST ADMISSION HISTORY and PHYSICAL TRANSITION EVENT: Type: SNF admission Date: April 04 Code Status: Full Code Name: Cristine Benitez Date of : 1935 This note pertains to care provided at [facility]. Please see facility medical record for original note. This note is not to be edited or addended in [facility]. Editing or addending needs to occur in the facilities medical record. S: Cristine Benitez had been admitted to [facility] from [facility] for PT and OT. Recently admitted to [facility] on 03/27/23 because of generalized weakness and inability to ambulate and was transferred hereand admitted on 04/04/2023. Patient of Dr. Mak with PMH of type 2 diabetes mellitus and hypertension with stage 3b CKD, anemia, B12 deficiency, h/o breast cancer, PAF off of anticoagulation due to recent GI bleed, lumbar spinal stenosis, anxiety, osteoarthritis, and dyslipidemia who presented to the ED from home with generalized weakness and poor appetite. Patient had several recent hospita lizations and was admitted to [facility] 02/20-02/28/23 secondary to suspected GI bleed in setting of supratherapeutic INR. She underwent EGD and colonoscopy, which were unremarkable other than hemorrhoids. Coumadin was discontinued. Recommended she have outpatient capsule endoscopy in the future. Patient returned home but was then readmitted 03/09-03/11/23 with more bright red blood per rectum. GI deferred repeating scopes so soon and felt most likely to be hemorrhoidal bleeding and constipation. She was started on Miralax. She was seen by PT/OT, who recommended rehab. She then went to [facility] for rehab. Unfortunately, she tested positive for COVID on but did not have URI symptoms. Debraurned home alone on 03/20/23 but got progressively more weak and was not eating well so she was brought back to the ED. She was found to have very low magnesium, which was replaced and she was discharged on a magnesium supplement. CT of the abdomen and pelvis showed diverticulosis without acute div erticulitis, trace left pleural effusion, and small hiatal hernia. Patient was admitted and seen by GI and nutrition. She required no treatment for COVID and remainedasymptomatic. She was noted to have ongoing anemia and is on ferrous sulfate. Fecal occult testing was still positive for blood. She was given IV iron on 03/29/23 and her iron was 152 prior to discharge. Patient was noted to have urinary retention with post-void residual of 350 mL. She declined catheterization. She was discharged on magnesium and potassium. Her hydrocodone and Lasix were discontinued. Patient is now admitted for ongoing PT/OT. She lives alone with son and DIL near-by, who do provideassistance. Has been noted to have some memory loss as well. Patient reports she is feeling better than she was. States she had some diarrhea a few days ago but it is resolved now. She denies any current abdominal pain or nausea. She was admitted with triamcinolone cream ordered but patient states the area is healed. She denies any cough or congestion. Past Medical History: Patient Active Problem List Diagnosis Code Paroxysmal atrial tachycardia I47.19 Vitamin B12 deficiency E53.8 Generalized osteoarthritis M15.9 History of breast cancer Z85.3 Paroxysmal VT ([facility]) I47.29 Spinal stenosis of lumbar region without neurogenic claudication M48.061 Anxiety state F41.1 DYSLIPIDEMIA, GOAL LDL BELOW 100 E78.5 Low HDL (under 40) E78.6 Type 2 diabetes mellitus with hemoglobin A1c goal of less than 7.5% ([facility]) E11.9 Hypomagnesemia E83.42 Essential hypertension with goal blood pressure less than 140/90 I10 Primary osteoarthritis of left knee M17.12 Right carotid bruit R09.89 Atrial flutter ([facility]) I48.92 PAF (paroxysmal atrial fibrillation) ([facility]) I48.0 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 Pedal edema R60.0 Hypertensive kidney disease with stage 3b chronic kidney disease (HCC) I12.9, N18.32 Type 2 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 disease, without long-term current use of insulin (HCC) E11.22, N18.32 Seborrheic keratosis L82.1 Typical atrial flutter ([facility]) I48.3 History of 2019 novel coronavirus disease (COVID-19) Z86.16 Full code status Z78.9 Current Outpatient Medications Medication Sig Dispense Refill [facility] VITAMIN B12 1000 MCG PO TABS 1 TABLET DAILY 1 Tab 0 Cholecalciferol (VITAMIN D3) 1000 UNITS CAPS Take by mouth. Triamcinolone Acetonide 0.1 % External Cream (Aristocort) [...] BY MOUTH EVERY DAY 90 Tablet 3 metFORMIN HCl 500 MG Oral Tablet (Glucophage) TAKE 1 TABLET BY MOUTH TWICE A DAY WITH BREAKFAST ANDSUPPER 180 Tablet 1 [employer] Delica Plus [id number] Use as directed. Use to test blood [...] the morning and 1 Tablet before bedtime. Potassium Chloride Domenica ER 20 MEQ Oral Tablet Extended Release Take 1 Tablet by mouth in the morning. No current facility-administered medications for this visit. Review of patient's allergies indicates: Allergen Reactions Aleve [Naproxen Sodium] Bleeding Hs of GI bleed Aspirin Bleeding Ibuprofen Bleeding Hx of GI bleed Doxycycline Neuro complications (Please comment) Hallucinations Jbspwsrr-Nbyjvekgq-Er [Fwbzazjk-Oillxblip-Bj] Caused eye problems Neosporin rash Sulfa Antibiotics nausea & vomiting Tramadol Hcl Unknown Triamterene ulcers Macrobid [Nitrofurantoin Monohydrate Macrocrystals] Neuro complications (Please comment) Headaches Social History Tobacco Use Smoking status: Never Smokeless tobacco: Never Substance Use Topics Alcohol use: Yes Comment: occassional wine/beer- rare Vaping/E-Cigarette Use Vaping/E-Cigarette Use Never User Vaping/E-Cigarette Substances Vaping/E-Cigarette Devices Past Surgical History: Procedure Laterality Date ANAL TAG REMOVAL, EXTERNAL, MULTIPLE 1979' BREAST BIOPSY-STEREOTACTIC 02/16/2006 Left breast (DCIS) at [facility] BCC COLONOSCOPY 02/2023 diverticulosis and internal hemorrhoids. [facility] COLONOSCOPY, DIAGNOSTIC (RECTUM) 10/26/2012 bleeding internal hemorrhoids- Dr. Starr COLONOSCOPY, DIAGNOSTIC (RECTUM) 02/16/2017 diverticulosis/COLONOSCOPY FLEXIBLE PROXIMAL DIAGNOSTIC performed by Scarlett Khan MD at ENDOSCOPY [facility] COLONOSCOPY, SURGICAL 05/24/2006 Dr. Starr - normal EGD, FLEXIBLE, DIAGNOSTIC 12/25/2007 duodenal ulcer with bleed EXTENSIVE REPAIR OF VAGINA N/A 07/01/2015 COMBINED ANTEROPOSTERIOR COLPORRHAPHY WITH ENTEROCELE REPAIR performed [place] Linh Chan [place] [facility] [place], INTERNAL W/ BANDING INJECT DX/THER SUBSTANCE INTERLAMINAR LUMBAR/SACRAL W IMAGE GUIDE 01/25/2023 INJECTION SPINE LUMBAR OR SACRAL performed by Andrey Still DO at OR [facility] MRI L SPINE WO CONTRAST 12/25/2007 mild bulg L3-4, multifactoral Central canal stenosis L4-5, small central disc herniation L5-S1 OTHER Left breast biopsy (benign) PARTIAL MASTECTOMY 02/27/2006 02/27/2006 Left breast - [place] [facility] REMOVAL OF APPENDIX 08/19/2010 Appendectomy 08/19/2010 Dr. Joseph at [facility] REMOVAL OF OVARY/OVIDUCT(S) 1980s bilateral REMOVE CATARACT, INSERT LENS PROSTH 08/19/2008 left eye - Dr. Hunter REMOVE CATARACT, INSERT LENS PROSTH 10/14/2008 right eye REPAIR/REVISION OF PERINEUM N/A 07/01/2015 PERINEOPLASTY performed by Linh Chan MD [place] [facility] TOTAL ABD HYSTERECTOMY W/WO REMOVAL OF TUBE(S) 1980s fibroids UPPER GI ENDOSCOPY 02/2023 unremarkable, [facility] No family history on file. Family Status Relation Status Mo at age 93 unknown cause Fa at age 69 accident - MVA Sis kidney disease Bro Alive Soraya Alive Soraya Alive Soraya Alive Son Alive Son Alive CBC Results: Results for orders placed or performed in visit on 04/05/23 CBC Result Value Ref Range WBC 4.54 4.00 - 10.80 K/uL RBC 3.01 3.85 - 5.15 M/uL HGB 8.9 (L) 12.0 - 15.3 g/dL HCT 29.5 (L) 36.0 - 45.2 % MCV 98.0 81.5 - 97.5 fL MCH 29.6 27.0 - 34.0 pg MCHC 30.2 32.0 - 36.0 g/dL RDW 16.1 11.5 - 15.5 % PLT 318 140 - 400 K/uL MPV 10.9 6.6 - 11.1 fL Hemoglobin Results: Lab Results Component Value Date/Time HGB - [facility] 8.9 (L) 04/05/2023 05:31 AM HGB - [facility] 9.8 (L) 03/22/2023 02:07 PM HGB - [facility] 9.4 (L) 03/19/2023 07:56 AM HGB - [facility] 11.4 (L) 04/03/2019 10:51 AM HGB - [facility] 11.2 (L) 05/28/2018 02:35 PM HGB - [facility] 10.9 (L) 09/21/2017 12:42 PM Hemoglobin AIC Results: Lab Results Component Value Date/Time HEMOGLOBIN A1C - [facility] 8.1 (H) 01/19/2023 01:07 PM HEMOGLOBIN A1C - [facility] 7.9 (H) 11/16/2022 03:14 PM HEMOGLOBIN A1C - [facility] 7.6 (H) 12/03/2021 09:52 AM HEMOGLOBIN A1C - [facility] 7.7 (H) 08/22/2019 12:30 PM HEMOGLOBIN A1C - [facility] 7.7 (H) 04/03/2019 10:51 AM HEMOGLOBIN A1C - [facility] 7.7 (H) 05/28/2018 02:35 PM Results for orders placed or performed in visit on 03/22/23 MAGNESIUM Result Value Ref Range Magnesium 1.4 (L) 1.5 - 2.6 mg/dL IRON SCREEN, INCLUDING TIBC Result Value Ref Range Iron 74 33 - 151 ug/dL Iron Binding Capacity 182 (L) 250 - 425 ug/dL Transferrin Saturation Percent 41 15 - 55 % PTH Result Value Ref Range PTH 37 15 - 65 pg/mL 25-HYDROXY VITAMIN D Result Value Ref Range 25-Hydroxy Vitamin D 43 >19 ng/mL PHOSPHORUS Result Value Ref Range Phosphorus 2.8 2.5 - 4.8 mg/dL BASIC METABOLIC PANEL Result Value Ref Range BUN 26 (H) 6 - 20 mg/dL Creatinine 1.5 (H) 0.5 - 1.0 mg/dL Estimated Glomerular Filtration Rate 34 (L) >=60 mL/min Sodium 137 135 - 146 mmol/L Potassium 4.8 3.5 - 5.1 mmol/L Chloride 105 98 - 107 mmol/L CO2 20 (L) 22 - 32 mmol/L Anion Gap 12 7 - 15 mmol/L Glucose 115 70 - 120 mg/dL Calcium 8.2 (L) 8.4 - 10.2 mg/dL CBC Result Value Ref Range WBC 5.94 4.00 - 10.80 K/uL RBC 3.29 3.85 - 5.15 M/uL HGB 9.8 (L) 12.0 - 15.3 g/dL HCT 32.9 (L) 36.0 - 45.2 % MCV 100.0 81.5 - 97.5 fL MCH 29.8 27.0 - 34.0 pg MCHC 29.8 32.0 - 36.0 g/dL RDW 15.7 11.5 - 15.5 % PLT 271 140 - 400 K/uL MPV 11.3 6.6 - 11.1 fL nRBCs 0 <=0 /100 WBCs DIFFERENTIAL, AUTOMATED Result Value Ref Range WBC 5.94 4.00 - 10.80 K/uL Neutrophils % 65.8 40.0 - 75.0 % Lymphocytes % 20.2 18.0 - 42.0 % Monocytes % 9.8 1.0 - 11.0 % Eosinophils % 3.2 0.0 - 6.0 % Basophils % 0.5 0.0 - 2.0 % Immature Granulocytes % 0.5 0.0 - 2.0 % Absolute Neutrophils 3.91 1.80 - 7.70 K/uL Absolute Lymphocytes 1.20 1.00 - 4.80 K/ul Absolute Monocytes 0.58 0.00 - 1.10 K/uL Absolute Eosinophils 0.19 0.00 - 0.70 K/uL Absolute Basophils 0.03 0.00 - 0.20 K/uL Absolute Immature Granulocytes 0.03 0.00 - 0.20 K/uL *Note: Due to a large number of results and/or encounters for the requested time period, some results have not been displayed. A complete set of results can be found in Results Review. Review of Systems: Constitutional ROS: No change in weight, No fevers, sweats, or chills, and +generalized weakness Eye ROS: No recent significant change in vision and No eye pain, redness, discharge Ear ROS: No ear pain, No drainage, No tinnitus or vertigo, and No recent change in hearing Nose ROS: No history of frequent colds or sinusitis, No nasal stuffiness, No history of Hay Fever, and No significant epistaxis Mouth/Throat ROS: No bleeding gums, No thrush, or No sore throat Pulmonary ROS: No cough, sputum, or hemoptysis, No wheezing, No shortness of breath, and No recent change in breathing Cardiovascular ROS: No chest pain, No shortness of breath, No dyspnea on exertion, No orthopnea, Noparoxysmal nocturnal dyspnea, No palpitations, No syncope, and +PAF, CHF, and +edema Gastrointestinal ROS: No abdominal pain, No significant heartburn, No hematemesis, No abdominal bloating or early satiety, and +blood in stool as above and reduced appetite Genito-Urinary Female ROS: No dysuria and No frequency, +urinary retention as above Musculoskeletal/Extremities ROS: +OA Hematologic/Lymphatic ROS: No chills, No bruising, and +recent GI bleeding and anemia Skin/Integumentary ROS: No rash Neurologic ROS: No headaches and No seizures Endocrine ROS: No heat intolerance, No cold intolerance, No thyroid trouble, and +type 2 diabetes Psychiatric ROS: +anxiety ADL skills: dependent Ambulates with walker OBJECTIVE: PHYSICAL EXAM: I reviewed the most recent facilities vitals. Refer to vital signs flowsheet in assisted chart.General: alert, no distress, well nourished, and well developed Head: Normocephalic, No masses, lesions, tenderness or abnormalities Eye Exam: PERRLA, extraocular movements intact, conjunctiva are pink and non- injected, sclera clear Ears: External ears normal Nose: no mucosal erythema, no mucosal edema, no purulent discharge Oropharynx: no exudate, no erythema, lips, buccal mucosa, and tongue normal, and mucous membranes are moist Neck: supple, no adenopathy, no bruits Heart: no gallops and irregularly irregular Lungs: chest symmetric with normal AP diameter, no chest deformities noted, no chest wall tenderness, lungs clear to auscultation Abdomen: abdomen soft, non-tender, normal bowel sounds, and no masses or organomegaly Extremities: no clubbing, no cyanosis, 2+ pedal edema bilaterally Neuro Exam: alert & oriented x 3 with fluent speech, no focal motor/sensory deficits ASSESSMENT: Generalized weakness (Primary)--here for PT/OT. Has been living alone. History of 2019 novel coronavirus disease (COVID-19)--off isolation. No current URI symptoms. Acute blood loss anemia--secondary to GI bleed. EGD and colonoscopy 02/2023 with hemorrhoids and diverticulosis. Coumadin discontinued. To follow-up with GI for possible capsule endoscopy. Hypomagnesemia--continue magnesium 64 mg twice daily. PAF (paroxysmal atrial fibrillation) (HCC)--rate controlled with metoprolol succinate 100 mg in AM and 50 mg in PM. Off anticoagulation secondary to ongoing GI bleeding and anemia. Typical atrial flutter (HCC)--as above Hypertensive kidney disease with stage 3b chronic kidney disease (HCC)--BP controlled with amlodipine 2.5 mg daily, lisinopril 20 mg daily, and metoprolol 100 mg in AM and 50 mg in PM. Monitor GFR. Anemia due to stage 3b chronic kidney disease (HCC)--as above. Anemia currently worse due to GI bleed. Did receive IV iron 03/29/23. Continue ferrous sulfate 325 mg twice daily. Essential hypertension with goal blood pressure less than 140/90--controlled as above Type 2 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 disease, without long-term current use of insulin (HCC)--A1C has been trending up recently. Continue glipizide ER 2.5 mg daily and metformin 500 mg twice daily. PLAN: 1. Continue present medication(s): Discontinue medication(s): Triamcinolone cream as no longer needed. Area has healed Schedule labs: CBC w/diff, BMP on 04/10/23 to monitor anemia and CKD/JOLIE 2. Admission orders, medications, labs, hospital records and care plan reviewed. 3. Web Site Administrator consult, Physical Therapy, Occupational Therapy, and Speech Therapy ordered. 4. Care plan reviewed. 5. Advance Directives were discussed: Full Code 6. Longterm Home Treatment Given: n/a Electronically signed by: Inder Mcdermott MD I spent a total of 51 minutes coordinating, documenting, and providing care for this patient excluding time spent in the performance of separately billed services or time spent by another provider/QHP. documented in this encounter Plan of Treatment Upcoming Encounters Date Type Department Care Team (Late st Contact Info) Description 06/05/2023 2:00 PM EDT Office Visit Gastroenterology, [facility] [address] [place] [id number] Jen Salgado CRNP [address] [place] [address] 07/04/2023 11:30 AM EDT Office Visit Family Medicine [address] [place] [phone] [place] [address] 07/27/2023 1:30 PM EDT Office Visit Cardiology [address] [place] [address] Cameron Becerra PA-C [address] [place] [address] 12/05/2023 2:30 PM EDT Office Visit Nephrology [address] [place] [address] Radha Wyman PA-C [address] [facility] [place] [address] Health Maintenance Due Date Last Done Comments Hepatitis B (1 of 3 - Risk 3-dose series) 1995 Depression Screening 08/03/2021 08/03/2020 Diabetic Foot Exam 02/08/2023 02/08/2022, 0 05/28/2020, 05/17/2019, Additional history exists Diabetic Eye Exam 03/15/2023 03/15/2022, , 11/03/2020, Additional history exists HbA1c 07/20/2023 01/19/2023, 08/2022, 12/03/2021, Additional history exists Albumin/Creatinine Ratio 11/17/2023 023, 03/29/2022, 01/06/2021, Additional history exists CKD PHOS USE SMARTSET 46407 03/22/202403/13, 01/19/2023, 11/21/2022, Additional history exists CKD HGB USE SMARTSET 57064 04/05/202404/05, 04/05/2023, 03/22/2023, Additional history exists DXA [...] History of 2019 novel coronavirus disease (COVID-19) Acute blood loss anemia Acute posthemorrhagic anemia Hypomagnesemia Disorders of magnesium metabolism PAF (paroxysmal atrial fibrillation) (HCC) Atrial fibrillation Typical atrial flutter (HCC) Atrial flutter Hypertensive kidney disease with stage 3b chronic kidney disease (HCC) Anemia due to stage 3b chronic kidney disease (HCC) Essential hypertension with goal blood pressure less than 140/90 Type 2 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 disease, without long-term current use of insulin (HCC) documented in this encounter Care Teams Lbd Teacher Relationship Specialty Start Date End Date Priyanka Falcon MD [address] [place] [address] [place] [id number] PCP - General Family Medicine 01/04/19 documented as of this encounter
--- OUTSIDE RECORDS SUMMARY | 2023-04-27 23:11 | External Medical Summary | Summary of Care ---
Author Name Unknown Organization [facility] Address [address] [place] [address] Phone [phone] Care Team Providers Care Lead Java Programmer Name Role Phone Priyanka Falcon MD Primary Care Prov ider Reason for Visit * Reason Onset Date Comments [facility] Visit 04/04/2023 Encounter Details Date Type Department Care Team (Latest Contact Info) Description 04/04/2023 11:00 AM EST [facility] Visit [facility] [address] [place], [place] [phone] Kristal Brown PA-C [address] [place] [address] Generalized weakness*; JOLIE (acute kidney injury) ([facility]); Hypomagnesemia; History of 2019 novel coronavirus disease (COVID-19); Anemia due to stage 3a chronic kidney disease; Diabetes mellitus with stage 3 chronic kidney disease ([facility]); PAF (paroxysmal atrial fibrillation) ([facility]); Type 2 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 disease, without long-term current use of insulin ([facility]); Vitamin B12 deficiency Allergies Active Allergy Reactions Criticality Noted Date Comments Naproxen Sodium Bleeding High 12/03/2009 Hs of GI bleed Aspirin Bleeding High 12/03/2009 Doxycycline Neuro complications (Please comment) Medium 10/23/2010 Hallucinations Ibuprofen Bleeding High 12/03/2009 Hx of GI bleed Nitrofurantoin Monohydrate Macrocrystals Neuro complications (Please comment) Low 09/16/2009 Headaches Wrjxszvu-Hsilkwirm-Fi 01/25/2011 Caused eye problems Neosporin 05/30/2003 rash Sulfa Antibiotics 05/11/2002 nausea & vomiting Tramadol Hcl Unknown 12/03/2009 Triamterene 11/16/2022 ulcers documented as of this encounter (statuses as of 04/04/2023) Medications Medication Sig Dispensed Refills Start Date [...] FOR ITCHING 30 g 2 05/28/2020 Active mimoOn In Vitro Strip (Glucose Blood)Indications: Type 2 diabetes mellitus with hemoglobin A1c goal of less than 7.5% (HCC) Use to test blood sugar once a day DX e11.9 100 Strip 3 05/14/2021 Active mimoOn Flex System w/Device KitIndications:Typ e 2 diabetes [...] Tablet 1 09/08/2022 Active OneTouch Delica Plus [id number] ns:Type 2 diabetes mellitus with hemoglobin A1c [...] than 7.0% ([facility]) USE TO TEST ONCE PER DAY. E11.9 100 Strip 5 12/08/2022 Active glipiZIDE ER 2.5 MG Oral Tablet Extended Release 24 Hour (Glucotrol XL)Indications:Typ e 2 diabetes mellitus with hemoglobin A1c goal of less than 7.5% ([facility]) TAKE 1 TABLET BY MOUTH DAILY [...] mouth in the morning. 0 04/04/2023 Active polyethylene glycol 3350 (MIRALAX) 255 gram powderIndications: Constipation, slow transit DISSOLVE 1 HEAPING TABLESPOON IN 8 OUNCES OF WATER OR JUICE DAILY NEEDED FOR CONSTIPATION 255 g 3 06/13/2017 4 Discontinu ed(Medicat ion List Clean Up) Docusate Sodium 100 MG Oral Capsule (Colace)Indication s:Constipation, unspecified constipation type TAKE 1 CAP BY MOUTH EVERY MORNING. CAN TAKE 1 CAP IN THE EVENING NEEDED 60 Capsule 5 08/25/2022 4 Discontinu ed(Medicat ion List Clean Up) HYDROcodone-Acetam inophen 5-325 MG Oral TabletIndications: Bilateral low back pain without sciatica, unspecified chronicity Take 1 Tablet by mouth 2 times a day as needed for Pain, Severe. 30 Tablet 0 11/18/2022 4 Discontinu ed(Medicat ion List Clean Up) documented as of this encounter (statuses as of 04/04/2023) Active Problems Problem Noted Date Diagnosed Date History of 2018 novel coronavirus disease (COVID -19) 04/04/2023 Full [...] as of this encounter (statuses as of 04/04/2023) Resolved Problems Problem Noted Date Diagnosed Date [...] as of this encounter (statuses as of 04/04/2023) Immunizations Name Administration Dates Next Due COVID-19 [...] Contact Info) Description 04/05/2023 8:00 AM EST [facility] Visit [address] [place] [address] Inder Mcdermott MD [address] [place] [address] [place] [address] 06/05/2023 2:00 PM EDT Office Visit Gastroenterology, [facility] [address] [address] Jen Salgado CRNP [address] [place] [address] 07/04/2023 11:30 AM EDT Office Visit Family Medicine [address] [place] [phone] Liliane Lobato DO [address] [place] [address] [place] [address] 07/27/2023 1:30 PM EDT Office Visit Cardiology [address] [place] [address] Cameron Becerra PA-C [address] [place] [address] 12/05/2023 2:30 PM EDT Office Visit Nephrology [address] [place] [address] Radha Wyman [facility]-C [facility] [place] [address] Health Maintenance Due Date Last Done Comments Hepatitis B (1 of 3 - Risk 3-dose series) 1994 Depression Screening 08/03/2021 08/03/2020 Diabetic Foot Exam 02/08/2023 02/08/2022, 0 05/28/2020, 05/17/2019, Additional history exists Diabetic Eye Exam 03/15/2023 03/15/2022, , 11/03/2020, Additional history exists HbA1c 07/20/2023 01/19/2023, 0908/2022, 12/03/2021, Additional history exists Albumin/Creatinine Ratio 11/17/2023 023, 03/29/2022, 01/06/2021, Additional history exists CKD HGB USE SMARTSET 53323 03/22/202403/22, 03/22/2023, 03/19/2023, Additional history exists CKD PHOS USE SMARTSET 39389 03/22/202403/13, 01/19/2023, 11/21/2022, Additional history exists DXA [...] Generalized weakness- Primary Other malaise and fatigue JOLIE (acute kidney injury) (HCC) Acute kidney failure, unspecified Hypomagnesemia Disorders of magnesium metabolism History of 2019 novel coronavirus disease (COVID-19) Anemia due to stage 3a chronic kidney disease Diabetes mellitus with stage 3 chronic kidney disease (HCC) Type II or unspecified type diabetes mellitus with renal manifestations, not stated as uncontrolled PAF (paroxysmal atrial fibrillation) ([facility]) Atrial fibrillation Type 2 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 disease, without long-term current use of insulin ([facility]) Vitamin B12 deficiency Other B-complex deficiencies documented in this encounter Care Teams Lead Java Programmer Relationship Specialty Start Date End Date Priyanka Falcon MD [address] [place] [address] [place] [id number] PCP - General Family Medicine 01/04/19 documented as of this encounter
--- OUTSIDE RECORDS SUMMARY | 2023-04-27 23:11 | External Medical Summary ---
Author Name Unknown Address Unknown Organization K01:[facility]AT[facility] - [address] [place] [address] Laboratory Report Ordering Provider Test Date Status STACY DIAZ 04/05/2023 05:31:00 Final Observation Date Value Abnormality Reference (Units ) Status Magnesium 04/05/2023 05:31:00 1.7 1.5-2.6 (m g/dL) Final Performing Location [facility] - [address] [place] [address]
--- OUTSIDE RECORDS SUMMARY | 2023-04-27 23:11 | External Medical Summary ---
Author Name Unknown Address Unknown Organization [id number]:[facility]ATORY [facility] [address] - [address] [place] [address] Laboratory Report Ordering Provider Test Date Status STACY DIAZ 04/05/2023 05:31:00 Final Observation Date Value Abnormality Reference (Units ) Status WBC, Total 04/05/2023 05:31:00 4.54 4.00-10.8 0 (K/uL) Final RBC 04/05/2023 05:31:00 3.01 3.85-5.15 (M/uL) Final Hemoglobin 04/05/2023 05:31:00 8.9 Below low normal 12 .0-15.3 (g/dL) Final HCT 04/05/2023 05:31:00 29.5 Below low normal 36. 0-45.2 (%) Final MCV 04/05/2023 05:31:00 98.0 81.5-97.5 (fL) Final MCH 04/05/2023 05:31:00 29.6 27.0-34.0 (pg) Final MCHC 04/05/2023 05:31:00 30.2 32.0-36.0 (g/dL) Final RDW 04/05/2023 05:31:00 16.1 11.5-15.5 (%) Final Platelets 04/05/2023 05:31:00 318 140-400 (K /uL) Final MPV 04/05/2023 05:31:00 10.9 6.6-11.1 ( fL) Final Performing Location LAB[facility]ATORY [facility] [address] - [address] [place] [address]
--- OUTSIDE RECORDS SUMMARY | 2023-04-27 23:11 | External Medical Summary | Summary of Care ---
Author Name Unknown Organization [facility] Address [address] [place] [address] Phone [phone] Care Team Providers Care Nip Wrapper Name Role Phone Priyanka Falcon MD Primary Care Prov ider Reason for Visit * Reason Onset Date Comments Skilled Visit 04/06/2023 Encounter Details Date Type Department Care Team (Latest Contact Info) Description 04/06/2023 7:30 AM EST Custodial Visit [facility] [address] [place] [address] Kristal Brown PA-C [address] [place] [address] Generalized weakness*; Bilateral low back pain without sciatica, unspecified chronicity; History of 2019 novel coronavirus disease (COVID-19); PAF (paroxysmal atrial fibrillation) ([facility]); Type 2 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 disease, without long-term current use of insulin ([facility]); Spinal stenosis of lumbar region without neurogenic claudication; Internal hemorrhoids; Edema, unspecified type; Dermatitis Allergies Active Allergy Reactions Criticality Noted Date Comments Naproxen Sodium Bleeding High 12/03/2009 Hs of GI bleed Aspirin Bleeding High 12/03/2009 Doxycycline Neuro complications (Please comment) Medium 10/23/2010 Hallucinations Ibuprofen Bleeding High 12/03/2009 Hx of GI bleed Nitrofurantoin Monohydrate Macrocrystals Neuro complications (Please comment) Low 09/16/2009 Headaches Uxnkvvea-Dgckszhxj-Nv 01/25/2011 Caused eye problems Neosporin 05/30/2003 rash [...] FOR ITCHING 30 g 2 05/28/2020 Active Element [employer] Moose Verio In Vitro Strip (Glucose Blood)Indications: Type 2 diabetes mellitus with hemoglobin A1c goal of less than 7.5% (HCC) Use to test blood sugar once a day DX e11.9 100 Strip 3 05/14/2021 Active Element RobotTouch Verio Flex System w/Device KitIndications:Typ e 2 [...] Tablet 1 09/08/2022 Active OneTouch Delica Plus [id number] ns:Type 2 diabetes mellitus with hemoglobin A1c goal of less than 7.5% (HCC) Use as directed. Use to test blood sugar once a day DX e11.9 100 Each 3 09/10/2022 Active Atorvastatin Calcium 80 MG Oral Tablet (Lipitor)Indicatio ns:Dyslipidemia, goal LDL below 70 TAKE 1 TABLET BY MOUTH EVERY DAY IN THE MORNING 90 Tablet 3 11/21/2022 Active Element RobotTouch Ultra In Vitro Strip (Glucose Blood)Indications: Type [...] term HTN, goal to be determined 02/06/2008 04/09/2007 Other iron deficiency anemia 12/27/2007 03/04/2010 [...] Progress Notes * Kristal Brown PA-C - 04/06/2023 11:44 AM EST Images from the original note were not included. Name: Cristine Benitez Date of :1935 TRANSITION EVENT: Type: Skilled visit Date: April 06 Code Status: Full Code This note pertains to care provided at [facility]. Please see facility medical record for original note. This note is not to be edited or addended in [place]. Editing or addending needs to occur in the facilities medical record. Subjective: Cristine Benitez is a 87 year old female. Patient being seen for skilled visit Chief Complaint Patient presents with Skilled Visit HPI: Pt here for rehabilitation following several [facility] admissions for progressive weakness, GI bleeding due to internal hemorrhoids, acute blood loss anemia and Covid 19 infection. Pt used to be on Lasix 40mg three days weekly for edema. This was stopped at [facility]. Pt continues to 2+ edema of LE's which pt states is painful to ambulate. No chest pains, dyspnea at rest, orthopnea,palpitations or signs of active CHF. We resumed lasix 40mg daily and pt's admission weight was 153 pounds and yesterday it was 147 pounds. Tubigrip was ordered but pt refuses them due to painful dermatitis like rash on left anterior leg. No chills or fever. Pt's appetite has been poor for quite some time according to family causing weakness and weight loss. Dietary is actively involved. Pt has been having loose stools with no foul smelling diarrhea causing flare of her hemorrhoids. She was admitted on Miralax daily and Colace daily which has since been on hold. Pt has hx of spinal stenosis and did have epidural injections by Dr Still less than a month ago. Back pain is pretty well controlled but family states she would have Hydrocodone/APAP at home for prn use which is sparingly. CBC Results: Results for orders placed or [...] - [facility] 10.9 (L) 09/21/2017 12:42 PM MAGNESIUM Order: [id number] Status: Final result Visible to patient: No (inaccessible in MyChart) Next appt: 06/05/2023 at 02:00 PM in *Gastro* ([facility]) Dx: HTN, goal below 140/90; Edema; Chroni... 0 Result Notes Component Ref Range & Units 1 d ago Magnesium 1.5 - 2.6 mg/dL 1.7 Resulting Agency [facility] Specimen Collected: 04/05/23 05:31 Last Resulted: 04/06/23 05:15 Basic Panel Results: Results for orders placed or performed in visit on 04/05/23 BASIC METABOLIC PANEL Result Value Ref Range BUN 7 6 - 20 mg/dL Creatinine 0.9 0.5 - 1.0 mg/dL Estimated Glomerular Filtration Rate 65 >=60 mL/min Sodium 144 135 - 146 mmol/L Potassium 3.6 3.5 - 5.1 mmol/L Chloride 109 (H) 98 - 107 mmol/L CO2 19 (L) 22 - 32 mmol/L Anion Gap 16 (H) 7 - 15 mmol/L Glucose 147 (H) 70 - 120 mg/dL Calcium 8.3 (L) 8.4 - 10.2 mg/dL Creatinine Results: Lab Results Component Value Date/Time CREATININE - [facility] 0.9 04/05/2023 05:31 AM CREATININE - [facility] 1.5 (H) 03/22/2023 02:07 PM CREATININE - [facility] 1.2 (H) 03/19/2023 07:56 AM CREATININE - [facility] 1.1 (H) 01/29/2020 [...] Results Component Value Date/Time POTASSIUM - [facility] 3.6 04/05/2023 05:31 AM POTASSIUM - [facility] 4.8 03/22/2023 02:07 PM POTASSIUM - [facility] 4.5 03/19/2023 07:56 AM POTASSIUM - [facility] 5.1 01/29/2020 12:24 PM POTASSIUM - [facility] 5.1 11/12/2019 10:39 AM POTASSIUM - [facility] 4.6 08/22/2019 12:30 PM POTASSIUM-OU[facility]IDE LAB 4.2 12/31/2018 12:00 AM POTASSIUM-OUTSIDE LAB 4.5 12/29/2018 12:00 AM Sodium Results: Lab Results Component Value Date/Time SODIUM - [facility] 144 04/05/2023 05:31 AM SODIUM - [facility] 137 03/22/2023 02:07 PM SODIUM - [facility] 139 03/19/2023 07:56 AM SODIUM - [facility] 139 01/29/2020 12:24 [...] of less than 7.5% ([facility]) E11.9 Hypomagnesemia E83.42 Essential hypertension with goal blood pressure less than 140/90 I10 Primary osteoarthritis of left knee M17.12 Right carotid bruit R09.89 Atrial flutter (HCC) I48.92 PAF (paroxysmal atrial fibrillation) ([facility]) I48.0 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 Pedal edema R60.0 Hypertensive kidney disease with stage 3b chronic kidney disease (HCC) I12.9, N18.32 Type 2 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 disease, without long-term current use of insulin (HCC) E11.22, N18.32 Seborrheic keratosis L82.1 Typical atrial flutter ([facility]) I48.3 History of 2019 novel coronavirus disease (COVID-19) Z86.16 Full code status Z78.9 Past Medical History: Diagnosis Date AC APPEND W PERITONITIS 10/15/2010 Acute duodenal ulcer with hemorrhage 12/2007 Atrial fibrillation (HCC) 12/2007 Benign hypertensive kidney disease with chronic kidney disease stage I through stage IV, or unspecified(403.10) Breast cancer ([facility]) 2005 left breast CA Chronic kidney disease (CKD) 10/27/2016 DM type 2 goal A1C below 7.5 06/23/2015 Essential hypertension with goal blood pressure less than 140/90 02/10/2016 GI hemorrhage 02/20/2023 Admitted [facility] Hemorrhoids, external without complications 09/17/2003 Influenza A 02/20/2023 Iron deficiency anemia Kidney disease, chronic, stage III (GFR 30-59 ml/min) ([facility]) Low HDL (under 40) 12/25/2014 Mixed [...] BREAST BIOPSY-STEREOTACTIC 02/16/2006 Left breast (DCIS) at [facility] BCC COLONOSCOPY 02/2023 diverticulosis and internal hemorrhoids. [facility] COLONOSCOPY, DIAGNOSTIC (RECTUM) 10/26/2012 bleeding internal hemorrhoids- Dr. Starr COLONOSCOPY, DIAGNOSTIC (RECTUM) 02/16/2017 diverticulosis/COLONOSCOPY FLEXIBLE PROXIMAL DIAGNOSTIC performed by Scarlett Khan MD at ENDOSCOPY [facility] COLONOSCOPY, SURGICAL 05/24/2006 Dr. Starr - normal EGD, FLEXIBLE, DIAGNOSTIC 12/25/2007 duodenal ulcer with bleed EXTENSIVE REPAIR OF VAGINA N/A 07/01/2015 COMBINED ANTEROPOSTERIOR COLPORRHAPHY WITH ENTEROCELE REPAIR performed by Linh Chan MD at [facility] HEMORRHOIDECTOMY, INTERNAL W/ BANDING INJECT DX/THER SUBSTANCE INTERLAMINAR LUMBAR/SACRAL W IMAGE GUIDE 01/25/2023 INJECTION SPINE LUMBAR OR SACRAL performed by Andrey Still DO at OR [facility] MRI L SPINE WO CONTRAST 12/25/2007 mild bulg L3-4, multifactoral Central canal stenosis L4-5, small central disc herniation L5-S1 OTHER 1989' Left breast biopsy (benign) PARTIAL MASTECTOMY 02/27/2006 02/27/2006 Left breast - partial mastectomy at [facility] Dr. Starr REMOVAL OF APPENDIX 08/19/2010 Appendectomy 08/19/2010 Dr. Joseph at [facility] REMOVAL OF OVARY/OVIDUCT(S) bilateral REMOVE CATARACT, INSERT LENS PROSTH 08/19/2008 left eye - Dr. Hunter REMOVE CATARACT, INSERT LENS PROSTH 10/14/2008 right eye REPAIR/REVISION OF PERINEUM N/A 07/01/2015 PERINEOPLASTY performed by Linh Chan MD at [facility] TOTAL ABD HYSTERECTOMY W/WO REMOVAL OF TUBE(S) fibroids UPPER GI ENDOSCOPY 02/2023 unremarkable, [facility] No family history on file. Family [...] bleed Doxycycline Neuro complications (Please comment) Hallucinations Nlrlrejx-Gwofgnqzw-Tz [Rmclspzb-Bmtctojcz-Ev] Caused eye problems Neosporin rash Sulfa Antibiotics nausea & vomiting Tramadol Hcl Unknown Triamterene ulcers Macrobid [Nitrofurantoin Monohydrate Macrocrystals] Neuro complications (Please comment) Headaches I have reviewed medications and allergies. Please refer to MAR in the facility's medical record forthe most up-to-date medication list as this cannot be edited in [email or web address]. Review of Systems: Constitutional ROS: + change in weight, +weakness, +fatigue and No fevers, sweats, or chills Nose [...] No chest pain, No shortness of breath, +edema, No palpitations and No syncope Gastrointestinal ROS: No abdominal pain, No change in bowel habits, No significant change in appetite, No nausea, vomiting, +diarrhea, or constipation and No dysphagia Musculoskeletal/Extremities ROS: see HPI Skin/Integumentary ROS: see HPI Neurologic ROS: No headaches and No seizures [...] no adenopathy, non-tender, neck veins flat, trachea midlin Heart: regular rate & rhythm, no murmurs and no gallops Lungs: normal respiratory rate and rhythm, no chest wall tenderness, lungs clear to auscultation Abdomen: abdomen soft, non-tender, normal bowel sounds and no masses or organomegaly Extremities: 2+edema, no clubbing, no cyanosis Neuro Exam: alert & oriented x 3 with fluent speech, no focal motor/sensory deficits Skin: skin color, texture, turgor are normal, erythematous rash noted left anterior leg with excoriations Musculoskeletal: moves all extremities with good strength ASSESSMENT: Generalized weakness (Primary) Reviewed CBC, BMP, Lytes Conitnue with PT/OT as directed Dietary involved Continue present medications and dosages. History of 2019 novel coronavirus disease (COVID-19) Recovering Will follow PAF (paroxysmal atrial fibrillation) (HCC) Stable rate Continue to monitor Pt is not on anticoagulation at this time due to GI bleeding and anemia Will follow with cardiology as directed Type 2 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 disease, without long-term current use of insulin (HCC) Glucoses stable CKD stable Continue Glipizide 2.5mg daily and Metformin 500mg BID Spinal stenosis of lumbar region without neurogenic claudication Will order Hydrocodone/APAP 5/325mg Q six hours prn mod to severe pain Will follow closely Internal hemorrhoids Pt does not want Anusol supp routine Will make BID prn hemorrhoidal pain Edema, unspecified type Lasix 40mg daily Elevate legs as much as possible BMP on Monday Will continue to monitor weights Tubigrip resume when rash on left leg is healed Dermatitis Triamcinolone 0.1% BID times 10 days Will follow PLAN: Dietary to consider adding Boost/Ensure per family request. and Continue present medication(s):as ordered. Halfway Home Treatment Given: Other as above Electronically signed by: Kristal Brown PA-C Over 45 minutes were spent in this visit more than half the time was spent counselling or coordinating care. documented in this encounter Plan of Treatment Upcoming Encounters Date Type Department Care Team (Late st Contact Info) Description 06/05/2023 2:00 PM EDT Office Visit Gastroenterology, [facility] [address] [place] [address] Jen Salgado CRNP [address] [place] [address] 07/04/2023 11:30 AM EDT Office Visit Family Medicine [address] [place] [phone] Liliane Lobato[address] [place] [address] 07/27/2023 1:30 PM EDT Office Visit Cardiology [address] [place] [address] Cameron Becerra PA-C [address] [place] [address] 12/05/2023 2:30 PM EDT Office Visit Nephrology [address] [place] [address] Radha Wyman PA-C [address] [place] [address] Health Maintenance Due Date Last Done Comments [...] Additional history exists CKD PHOS USE SMARTSET 71574 03/22/202403/13, 01/19/2023, 11/21/2022, Additional history exists CKD HGB USE SMARTSET 51287 04/05/202404/05, 04/05/2023, 03/22/2023, Additional history exists DXA [...] Generalized weakness- Primary Other malaise and fatigue Bilateral low back pain without sciatica, unspecified chronicity History of 2019 novel coronavirus disease (COVID-19) PAF (paroxysmal atrial fibrillation) (HCC) Atrial fibrillation Type 2 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 disease, without long-term current use of insulin (HCC) Spinal stenosis of lumbar region without neurogenic claudication Spinal stenosis, lumbar region, without neurogenic claudication Internal hemorrhoids Internal hemorrhoids without mention of complication Edema, unspecified type Dermatitis Contact dermatitis and other eczema, due to unspecified cause documented in this encounter Care Teams Nip Wrapper Relationship Specialty Start Date End Date Priyanka Falcon MD [address] [place] [address] [place] [address] PCP - General Family Medicine 01/04/19 documented as of this encounter
--- OUTSIDE RECORDS SUMMARY | 2023-04-27 23:11 | External Medical Summary ---
Author Name Unknown Address Unknown Organization K01:[facility] [place] [address] [place] [address] Laboratory Report Ordering Provider Test Date Status STACY DIAZ 04/05/2023 05:31:00 Final Observation Date Value Abnormality Reference (Units ) Status BUN 04/05/2023 05:31:00 7 6-20 (mg/dL) Final Creatinine 04/05/2023 05:31:00 0.9 0.5-1.0 (mg/dL) Final Glomerular filtration rate/1.73 sq M.predicted [Volume Rate/Area] in Serum, Plasma or Blood by Creatinine-based formula (CKD-EPI) 04/05/2023 05:31:00 65 >=60 (mL/min) Final eGFR is calculated based on the CKD-EPI 2020 equation SODIUM 04/05/2023 05:31:00 144 135-146 (m mol/L) Final Potassium 04/05/2023 05:31:00 3.6 3.5-5.1 (m mol/L) Final Cl 04/05/2023 05:31:00 109 Above high normal 98 -107 (mmol/L) Final CO2 04/05/2023 05:31:00 19 Below low normal 22- 32 (mmol/L) Final Anion gap 04/05/2023 05:31:00 16 Above high normal 7- 15 (mmol/L) Final Glucose 04/05/2023 05:31:00 147 Above high normal 70 -120 (mg/dL) Final Calcium 04/05/2023 05:31:00 8.3 Below low normal 8.4 -10.2 (mg/dL) Final Performing Location [facility] [place] [address] [place] [address]
--- OUTSIDE RECORDS SUMMARY | 2023-04-27 23:11 | External Medical Summary | Summary of Care ---
Author Name Unknown Organization [facility] Address [address] [place] [address] Phone [phone] Care Team Providers Care Spray Unit Feeder Name Role Phone Priyanka Falcon MD Primary Care Prov ider Encounter Details Date Type Department Care Team (Late st Contact Info) Description 04/10/2023 Orders Only Lab Mobile Phlebotomy [facility] [address] [place] [address] Inder Mcdermott MD [address] [place] [address] [place] [phone] Anemia*; Chronic kidney disease (CKD) Allergies Active Allergy Reactions Criticality Noted Date Comments Naproxen Sodium Bleeding High 12/03/2009 Hs of GI bleed Aspirin Bleeding High 12/03/2009 Doxycycline Neuro complications (Please comment) Medium 10/23/2010 Hallucinations Ibuprofen Bleeding High 12/03/2009 Hx of GI bleed Nitrofurantoin Monohydrate Macrocrystals Neuro complications (Please comment) Low 09/16/2009 Headaches Awscujxk-Sgdlmsnfs-Pz 01/25/2011 Caused eye problems Neosporin 05/30/2003 rash [...] AND SUPPER 180 Tablet 1 09/08/2022 Active [employer]Touch Delica Plus [id number] :Type 2 diabetes mellitus with hemoglobin A1c [...] Care Team (Late st Contact Info) Description 04/10/2023 8:00 AM EST Laboratory Lab Mobile Phlebotomy [facility] 100 [place] [address] [place] [address] Arrived 06/05/2023 2:00 PM EDT Office Visit Gastroenterology, [facility] [address] [place] [address] Jen Salgado CRNP [address] [place] [address] 07/04/2023 11:30 AM EDT Office Visit Family Medicine [address] [phone] Cheryle Liliane Roth[address] [place] [address] 07/27/2023 1:30 PM EDT Office Visit Cardiology [address] [place] [address] Cameron Becerra PA-C [address] [place] [address] 12/05/2023 2:30 PM EDT Office Visit Nephrology [address] [place] [address] Radha Wyman PA-C [address] [place] [address] Scheduled Orders Name Type Priority Associated Diagnoses Orde r Schedule CBC WITH WBC DIFFERENTIAL Lab Routine Anemia Chronic kidney disease (CKD) Expected: 04/10/2023, Expires: 04/10/2024 BASIC METABOLIC PANEL Lab Routine Anemia Chronic kidney disease (CKD) Expected: 04/10/2023, Expires: 04/10/2024 Health Maintenance Due Date Last Done Comments [...] Additional history exists CKD PHOS USE SMARTSET 96973 03/22/202403/13, 01/19/2023, 11/21/2022, Additional history exists CKD HGB USE SMARTSET 07970 04/05/202404/05, 04/05/2023, 03/22/2023, Additional history exists DXA [...] as of this encounter Visit Diagnoses Diagnosis Anemia- Primary Anemia, unspecified Chronic kidney disease (CKD) Chronic kidney disease, unspecified documented in this encounter Care Teams Spray Unit Feeder Relationship Specialty Start Date End Date Priyanka Falcon MD [address] [place] [address] [place] [phone] PCP - General Family Medicine 01/04/19 documented as of this encounter
--- OUTSIDE RECORDS SUMMARY | 2023-04-27 23:12 | External Medical Summary | Summary of Care ---
Author Name Unknown Organization [facility] Address [address] [place] [address] Phone [phone] Care Team Providers Care Bottom Sprayer Name Role Phone Priyanka Falcon MD Primary Care Prov ider Reason for Visit * Reason Onset Date Comments Medication Refill 04/04/2023 Encounter Details Date Type Department Care Team (Late st Contact Info) Description 04/04/2023 Refill [facility] [address] [place], [place] [phone] Kristal Brown PA-C [address] [place], [place] [phone] Persistent insomnia Allergies Active Allergy Reactions Criticality Noted Date Comments Naproxen Sodium Bleeding High 12/03/2009 Hs of GI bleed Aspirin Bleeding High 12/03/2009 Doxycycline Neuro complications (Please comment) Medium 10/23/2010 Hallucinations Ibuprofen Bleeding High 12/03/2009 Hx of GI bleed Nitrofurantoin Monohydrate Macrocrystals Neuro complications (Please comment) Low 09/16/2009 Headaches Tcdjkwys-Jjuskxsyv-Cx 01/25/2011 Caused eye problems Neosporin 05/30/2003 rash [...] FOR ITCHING 30 g 2 05/28/2020 Active [facility] [employer] In Vitro Strip (Glucose Blood)Indications: Type 2 diabetes mellitus with hemoglobin A1c goal of less than 7.5% (HCC) Use to test blood sugar once a day DX e11.9 100 Strip 3 05/14/2021 Active [facility] Verio Flex System w/Device KitIndications:Typ e 2 [...] Additional Information Patient not taking.Reported on 03/22/2023 metFORMIN HCl 500 MG Oral Tablet (Glucophage)Indica tions:Type 2 diabetes mellitus with hemoglobin A1c goal of less than 7.5% (HCC) TAKE 1 TABLET BY MOUTH TWICE A DAY WITH BREAKFAST AND SUPPER 180 Tablet 1 09/08/2022 Active [facility] SciencesTouch Delica Plus [id number] ns:Type 2 diabetes mellitus with hemoglobin A1c [...] of less than 7.0% ([facility]) USE TO TEST ONCE PER DAY. E11.9 100 Strip 5 12/08/2022 Active glipiZIDE ER 2.5 MG Oral Tablet Extended Release 24 Hour (Glucotrol XL)Indications:Typ e 2 diabetes mellitus with hemoglobin A1c goal of less than 7.5% ([facility]) TAKE 1 TABLET BY MOUTH DAILY [...] needed anxiety 60 Tablet 0 04/04/2023 Active LORazepam 0.5 MG Oral Tablet (Ativan)Indication s:Persistent insomnia TAKE 1 TABLET BY MOUTH TWICE A DAY NEEDED FOR ANXIETY 120 Tablet 1 08/25/2022 Discontinu ed(Refill) documented as of this encounter [...] Telephone Encounter - Kristal Brown PA-C - 04/04/2023 2:54 PM EST RX ATIVAN 0.5MG HS AND ONE DAILY PRN ANXIETY #60 R0 SENT ELECTRONICALLY TO [facility] documented in this encounter Plan of Treatment Upcoming Encounters Date Type Department Care Team (Latest Contact Info) Description 04/04/2023 5:10 PM EST 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 Pharmacy, [address] [place] [address] [place] [address] PAF (paroxysmal atrial fibrillation) (HCC)* 04/05/2023 8:00 AM EST Care Home Visit [address] [place] [address] Inder Mcdermott MD [address] [place] [address] [place] [address] 06/05/2023 2:00 PM EDT Office Visit Gastroenterology, [facility] [address] [place] [address] Jen Salgado CRNP [address] [place] [address] 07/04/2023 11:30 AM EDT Office Visit Family Medicine [address] [place] [phone] Liliane Lobato DO [address] [place] [address] [place] [address] 07/27/2023 1:30 PM EDT Office Visit Cardiology [address] [place] [address] Cameron Becerra PA-C [address] [place] [address] 12/05/2023 2:30 PM EDT Office Visit Nephrology [address] [place] [address] Radha Wyman PA-C 200 [facility] [place] [address] Health Maintenance Due Date Last Done Comments [...] Additional history exists CKD HGB USE SMARTSET 25659 03/22/202403/22, 03/22/2023, 03/19/2023, Additional history exists CKD PHOS USE SMARTSET 70498 03/22/202403/13, 01/19/2023, 11/21/2022, Additional history exists DXA [...] (paroxysmal atrial fibrillation) (HCC)- Primary Atrial fibrillation Persistent insomnia Persistent disorder of initiating or maintaining sleep documented in this encounter Care Teams Bottom Sprayer Relationship Specialty Start Date End Date Priyanka Falcon MD [address] [place] [address] [place] [phone] PCP - General Family Medicine 01/04/19 documented as of this encounter
--- OUTSIDE RECORDS SUMMARY | 2023-04-27 23:12 | External Medical Summary | Summary of Care ---
Author Name Unknown Organization [facility] Address [address] [place] [address] Phone [phone] Care Team Providers Care Trench Pipe Layer Name Role Phone Priyanka Falcon MD Primary Care Prov ider Reason for Visit * Reason Comments Dosage Adjustment Via Phone (anticoag Cl inic) Encounter Details Date Type Department Care Team (Latest Contact Info) Description 04/04/2023 5:10 PM EST 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 Pharmacy, [address] [place] [address] [place] [address] PAF (paroxysmal atrial fibrillation) ([facility])* Allergies Active Allergy Reactions Criticality Noted Date Comments Naproxen Sodium Bleeding High 12/03/2009 Hs of GI bleed Aspirin Bleeding High 12/03/2009 Doxycycline Neuro complications (Please comment) Medium 10/23/2010 Hallucinations Ibuprofen Bleeding High 12/03/2009 Hx of GI bleed Nitrofurantoin Monohydrate Macrocrystals Neuro complications (Please comment) Low 09/16/2009 Headaches Eseivpqu-Wqilokyca-By 01/25/2011 Caused eye problems Neosporin 05/30/2003 rash [...] FOR ITCHING 30 g 2 05/28/2020 Active [employer] In Vitro Strip (Glucose Blood)Indications:T ype 2 diabetes mellitus with hemoglobin A1c goal of less than 7.5% (HCC) Use to test blood sugar once a day DX e11.9 100 Strip 3 05/14/2021 Active [employer] Verio Flex System w/Device KitIndications:Type 2 diabetes [...] Tablet 1 09/08/2022 Active [employer] Delica Plus [id number] s:Type 2 diabetes mellitus with hemoglobin A1c [...] One daily 90 Tablet 1 03/27/2023 Active documented as of this encounter (statuses [...] this encounter Progress Notes * Freda Curtis, [facility] - 04/04/2023 12:31 PM EST Medication Therapy Disease Management - 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 Patient: Cristine Benitez | : 1935 Per chart review, patient recently admitted again to [facility] d/t continued weakness. GI consulted while admitted, recommended against repeating any further GI workup. GI f/u scheduled outpatient 06/04. Patient is being discharged to [facility]. [facility] will plan to sign off at this time. Please place new referral if anticoagulation with warfarin is to be resumed in future. Thank you for allowing us to participate in the care of this patient. Episode resolved. INR orders discontinued. Removed from [facility] clinic roster. Freda uCrtis RPh, PharmD Clinical Pharmacist - [facility] Medication Therapy [facility] 04/04/2023, 12:34 PM [phone] documented in this encounter Plan of Treatment Upcoming Encounters Date Type Department Care Team (Late st Contact Info) Description 04/05/2023 8:00 AM EST Residential Visit [address] [place] [address] Inder Mcdermott MD [address] [place] [address] [place] [address] 06/05/2023 2:00 PM EDT Office Visit Gastroenterology, [facility] [address] [address] Jen Salgado CRNP [address] [place] [address] 07/04/2023 11:30 AM EDT Office Visit Family Medicine [address] [place] [phone] Liliane Lobato DO [address] [place] [address] [place] [address] 07/27/2023 1:30 PM EDT Office Visit Cardiology [address] [place] [address] Cameron Becerra PA-C [address] [place] [address] 12/05/2023 2:30 PM EDT Office Visit Nephrology [address] [place] [address] Radha Wyman PA-C [address] [place] [address] Health Maintenance Due Date Last Done Comments Hepatitis B (1 of 3 - Risk 3-dose series) 1995 Depression Screening 08/03/2021 08/03/2020 Diabetic Foot Exam 02/08/2023 02/08/2022, 0 05/28/2020, 05/17/2019, Additional history exists Diabetic Eye Exam 03/15/2023 03/15/2022, , 11/03/2020, Additional history exists HbA1c 07/20/2023 01/19/2023, 0908/2022, 12/03/2021, Additional history exists Albumin/Creatinine Ratio 11/17/2023 023, 03/29/2022, 01/06/2021, Additional history exists CKD HGB USE SMARTSET 93519 03/22/202403/22, 03/22/2023, 03/19/2023, Additional history exists CKD PHOS USE SMARTSET 24939 03/22/202403/13, 01/19/2023, 11/21/2022, Additional history exists DXA [...] fibrillation documented in this encounter Care Teams Trench Pipe Layer Relationship Specialty Start Date End Date Priyanka Falcon MD [address] [place] [address] [place] [address] PCP - General Family Medicine 01/04/19 documented as of this encounter"
--- OUTSIDE RECORDS SUMMARY | 2023-04-27 23:12 | External Medical Summary | Continuity Of Care Document ---
Author Name Unknown Address [address] [place] [address] Organization [facility]) Care Team Providers Care Artillery Or Naval Gunfire Observer Name Role Phone Inder Mcdermott Primary Care Provider [phone] VITAL SIGNS Date Time Diastolic blood pressure Systolic blood pressure Body height Body weight Temperature SpO2 Blood Sugar Pulse Respirations 29726 123 07861 3 62.00 mm[Hg] - Sitting 130.00 mm[Hg] - Sitting 98.70 Ear 97.00 % 72.00/ min 18.00/min 00352 123 45396 2 153.00 NI 43579 123 90381 6 62 NI 01216 123 50424 6 62.00 mm[Hg] - Sitting 130.00 mm[Hg] - Sitting 98.00 Oral 72.00/ min 18.00/min 09885 124 47467 0 Immunizations Vaccine Date Status COVID-19 04/17/2020 Completed COVID-19 05/15/2020 Completed COVID-19 01/18/2021 Completed COVID-19 07/26/2021 Completed COVID-19 12/27/2021 Completed COVID-19 01/04/2023 Completed Influenza 11/16/2022 Completed (PCV13)Pneumococcal 07/29/2014 Completed (PPSV23)Pneumococcal 10/07/2002 Completed TDaP 09/11/2007 Completed
--- OUTSIDE RECORDS SUMMARY | 2023-04-27 23:12 | External Medical Summary | Continuity Of Care Document ---
Author Name Unknown Address [address] [place] [address] Organization [facility]) Care Team Providers Care Tin Assorter Name Role Phone Inder Mcdermott Primary Care Provider [phone] VITAL SIGNS Date Time Diastolic blood pressure Systolic blood pressure Body height Body weight Temperature SpO2 Blood Sugar Pulse Respirations 66872 123 56590 3 62.00 mm[Hg] - Sitting 130.00 mm[Hg] - Sitting 98.70 Ear 97.00 % 72.00/ min 18.00/min 51004 123 32414 2 153.00 [place] [address] 123 02830 6 62 NI 82400 123 36558 6 62.00 mm[Hg] - Sitting 130.00 mm[Hg] - Sitting 98.00 Oral 72.00/ min 18.00/min 63672 124 69142 0 Immunizations Vaccine Date Status COVID-19 04/17/2020 Completed COVID-19 05/15/2020 Completed COVID-19 01/18/2021 Completed COVID-19 07/26/2021 Completed COVID-19 12/27/2021 Completed COVID-19 01/04/2023 Completed Influenza 11/16/2022 Completed (PCV13)Pneumococcal 07/29/2014 Completed (PPSV23)Pneumococcal 10/07/2002 Completed TDaP 09/11/2007 Completed
--- NOTE | 2023-04-28 06:12 | Electrocardiogram Report ---
Test Reason : Blood Pressure : / mmHG Vent. Rate : 123 BPM Atrial Rate : 000 BPM P-R Int : 000 ms QRS Dur : 062 ms QT Int : 294 ms P-R-T Axes : 000 064 165 degrees QTc Int : 420 ms Poor data quality, interpretation may be adversely affected Atrial fibrillation with rapid ventricular response Low voltage QRS Cannot rule out Anterior infarct , age undetermined Nonspecific T wave abnormality Abnormal ECG When compared with ECG of 27-MAR-2023 16:28, No significant change Confirmed by Israel Sheppard ([id number]) on 04/28/2023 6:11:50 AM Referred By: Confirmed By:Israel Sheppard
[2023-04-28] MEDS: METOPROLOL SUCC 50MG EXT REL TAB PO SCH (08:25)
[2023-04-28] MEDS: PANTOprazole 40 MG TAB PO SCH (08:25)
[2023-04-28] MEDS: ATORVASTATIN 40 MG TAB PO SCH (08:26)
[2023-04-28] MEDS ORDERED: lisinopril 10 MG TAB PO SCH (09:00)
[2023-04-28 09:07] LABS: Hematocrit (blood only) 28.3 % (37.0-47.0); Mean Corpuscular Hemoglobin 29.7 pg (25.0-34.0); Mean Corpuscular Hgb Conc 31.8 g/dL (32.0-36.0); Mean Corpuscular Volume 93.4 fL (80.0-100.0); Mean Platelet Volume 10.9 fL (9.4-12.4); Platelet Count 264 K/uL (130-400); RDW Coefficient of Variation 16.5 % (11.5-14.5); RDW Standard Deviation 56.5 fL (36.4-46.3); Red Blood Count 3.03 M/uL (4.20-5.40); White Blood Count 7.48 K/ul (4.8-10.8)
[2023-04-28 09:23] LABS: Albumin Globulin Ratio 0.9 (0.9-2); Bilirubin,Total 0.9 mg/dl (0.2-1.0); Calcium 8.6 mg/dl (8.6-10.3); Creatinine Clr Calc Pharmacy 35.3 ml/min; Est GFR (African American) 61.2 ml/min; Est GFR (Non-African American) 52.8 ml/min; Globulin 3.2 gm/dl (2.5-4.0); Magnesium 1.9 mg/dl (1.7-2.4); Potassium 4.4 mmol/L (3.5-5.1); Total Protein 6.2 gm/dl (6.0-8.3)
--- NOTE | 2023-04-28 09:23 | Hospitalist Progress Note ---
Date of Service April 28, 2023 Assessment & Plan (1) Atrial fibrillation with RVR: (2) Fall: (3) Knee effusion, left: (4) Hypertension: (5) Diabetes mellitus type 2 in obese: (6) Hyperlipidemia: Plan 87 year old female presented to the ED after a fall she had the previous day. This was associated with worsened pain in her left leg and knee where she fell. Recent hospitalizations for GIB. No longer on anticoagulation for Afib due to GI bleed risk PMH includes: HTN, AF, CHF, DM2, HLD. She uses a walker at baseline. Knee x-ray indicates left joint effusion. Chest x-ray negative for acute cardiopulmonary disease. Abdomen/pelvis CT suggestive of acute cholecystitis. Gall bladder USS noted distended GB without gall stones or signs of cholecystitis Chest CTA negative for PE, head CT and cervical spine CT negative for ICH, subdural hematoma, masses or midline shift. A-fib with RVR: Has known A-fib but beta-tam was held following instruction by outpatient provider to hold until Monday due to hypotension Systolic blood pressure 150 in ED Heart rate ranging 130-140 Takes metoprolol 100 mg every morning and 50 mg every afternoon Home BB resumed Currently rate controlled 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 discontinued in February due to increased risk with GI bleed; discussed with son who is comfortable without anticoagulation Had hypomagnesemia on admission was 1.1. Up to 1.9 this morning. Monitor Fall: Initial encounter Fell while walking in the hallway. No LOC and did not hit head Left hip painful on exam with movement; No fracture noted on Hip CT Left knee x-ray performed with left joint effusion Will follow up orthopedics evaluation Scheduled Tylenol and prn pain meds PT/OT Generalized abdominal pain: There was report about abd per H/P that had resolved on presentation Patient denies that now Abdominal pelvis CT indicates possible acute cholecystitis Gallbladder ultrasound did not show cholecystitis. Abd exam is benign No leukocytosis Monitor Hypertension: Chronic Was on amlodipine and lisinopril at home. Amlodipine was held on admission Considering report of hypotension and also hypotension recorded on presentation, home lisinopril was reduced to 5mg daily Will monitor and make adjustments as needed Diabetes mellitus type 2: Chronic Takes metformin and glipizide; hold while inpatient and placed on [facility] Glycemic pharmacy on board for insulin management HLD: Continue atorvastatin GERD: Continue pantoprazole Disposition: PCP: Liliane Lobato PA-C CODE STATUS: DNR/DNI VTE prophylaxis: teds and SCDs for now I spent a total of 50 minutes coordinating, documenting and providing care for this patient excluding time spent in performance of separately billed services Admission and Anticipated Discharge Date Admission Date: April 27, 2023 Subjective Patient seen and examined She is Alert and oriented to person and place Reports knee pain which is chronic Denied headache, dizziness, cough, chest pain, SOB, diarrhea, abd pain, nausea and vomiting Asking about discharge Physical Exam Constitutional: + well hydrated; no acute distress Eyes: PERRL, conjunctivae normal, anicteric sclerae ENMT: external ear and nose normal, oropharynx normal Respiratory: normal respiratory effort, lungs clear to auscultation Cardiovascular: Rate/Rhythm: + irregularly irregular S1 S2 Gastrointestinal (Abdomen): normal bowel sounds, soft, nontender, no hepatosplenomegaly Musculoskeletal: +Left knee effusion with tenderness No pedal edema Neurologic: PERRL, EOMI, accommodation nl, no face palsy, no dysarthria Psychiatric: Orientation: alert, oriented to person, oriented to place and cooperative; + not oriented to time Results & Data Results & Data Vital Signs (Past 12 Hours) Vital Signs Temp Pulse Pulse Resp BP BP Pulse Ox 04/28/23 08:03 36.8 C 96 H 17 115/61 96 04/28/23 01:30 88 04/28/23 00:13 36.4 C L 100 H 18 136/68 96 04/27/23 23:00 96 H 18 124/54 L 97 O2 Del Method 04/28/23 08:03 Room Air 04/28/23 01:30 04/28/23 00:13 Room Air 04/27/23 23:00 Laboratory Results Abnormal lab results 04/27/23 04/27/23 04/27/23 Range/Units 12:42 17:45 20:32 RBC (4.20-5.40) M/uL Hgb (12.0-16.0) g/dl Hct (37.0-47.0) % MCHC (32.0-36.0) g/dL RDW Std Deviation (36.4-46.3) fL RDW Coeff of Jareth (11.5-14.5) % BUN/Creatinine Ratio (10-20) Glucose (70-99(Fasting)) mg/dl POC Glucose 194 H 199 H (70-99) mg/dl Magnesium 1.1 L (1.7-2.4) mg/dl Alkaline Phosphatase (34-104) U/L Albumin (3.4-5.0) gm/dl 04/28/23 04/28/23 04/28/23 Range/Units 08:21 08:28 12:10 RBC 3.03 L (4.20-5.40) M/uL Hgb 9.0 L (12.0-16.0) g/dl Hct 28.3 L (37.0-47.0) % MCHC 31.8 L (32.0-36.0) g/dL RDW Std Deviation 56.5 H (36.4-46.3) fL RDW Coeff of Jareth 16.5 H (11.5-14.5) % BUN/Creatinine Ratio 24.0 H (10-20) Glucose 149 H (70-99(Fasting)) mg/dl POC Glucose 157 H 149 H (70-99) mg/dl Magnesium (1.7-2.4) mg/dl Alkaline Phosphatase 131 H (34-104) U/L Albumin 3.0 L (3.4-5.0) gm/dl (2) Fall Encounter type: initial encounter Qualified Code(s): W19.XXXA - Unspecified fall, initial encounter
[2023-04-28 09:37] LABS: Thyroid Stimulating Hormone 4.276 uIu/ml (0.300-4.500)
--- NOTE | 2023-04-28 10:03 | Pharmacy Report ---
Pharmacy Glycemic Short Note 2 - Date of Service April 28, 2023 - Glycemic Short BSG Results (Last 24 hours): 04/27/23 04/27/23 04/27/23 12:42 17:45 20:32 Glucose 219 H POC Glucose 194 H 199 H 04/28/23 04/28/23 08:21 08:28 Glucose 149 H POC Glucose 157 H OUTPATIENT ANTIDIABETIC REGIMEN: * glipizide 2.5 mg daily, metformin 500 mg bidm * A1c 8.5% 02/2023 ASSESSMENT: * 87 year old admitted after fall/concerns for afib with RVR/possible GI issues. Type 2 diabetic managed on oral agents at home. BSGs in ~190s on admission, started on low dose basal insulin and novolog. Plan to continue same parameters for now. PLAN FOR INPATIENT GLYCEMIC CONTROL: * Hold outpatient oral diabetes medications * Basal insulin * Lantus 6 units SQ BID * Bolus insulin * NovoLog per scale ACHS or Q6hrs while NPO * Goal Range: Low 120 mg/dL - High 160 mg/dL * Correction Factor: 40 mg/dL/unit * Nutritional / Prandial insulin per carb ratio of 1 unit per 14 grams CHO consumed
[2023-04-28] MEDS: lisinopril 5 MG TAB PO SCH (10:05)
--- OUTSIDE RECORDS SUMMARY | 2023-04-28 11:24 | External Medical Summary | Summary of Care ---
Author Name Unknown Organization [facility] Address [address] [place] [address] Phone [phone] Care Team Providers Care Biochemistry Specialist Name Role Phone Priyanka Falcon MD Primary Care Prov ider Reason for Visit * Reason Onset Date Comments Home Health 04/27/2023 Encounter Details Date Type Department Care Team (Late st Contact Info) Description 04/27/[address] [phone] Priyanka Falcon MD [address] [place] [address] [place] [address] Home Health Allergies Active Allergy Reactions Criticality Noted Date Comments Naproxen Sodium Bleeding High 12/03/2009 Hs of GI bleed Aspirin Bleeding High 12/03/2009 Doxycycline Neuro complications (Please comment) Medium 10/23/2010 Hallucinations Ibuprofen Bleeding High 12/03/2009 Hx of GI bleed Nitrofurantoin Monohydrate Macrocrystals Neuro complications (Please comment) Low 09/16/2009 Headaches Osdczdne-Idfhwnwli-Er 01/25/2011 Caused eye problems Neosporin 05/30/2003 rash Sulfa Antibiotics 05/11/2002 nausea & vomiting Tramadol Hcl Unknown 12/03/2009 Triamterene 11/16/2022 ulcers documented as of this encounter (statuses as of 04/27/2023) Medications Medication Sig Dispensed Refills Start Date End Date Status Triamcinolone Acetonide 0.1 % External Cream (Aristocort)Indicati ons:Allergic contact dermatitis due to drugs in contact with skin APPLY TO THE AFFECTED AREA 2 TIMES A DAY NEEDED FOR ITCHING 30 g 2 05/28/2020 Active Pluck System w/Device KitIndications:Type 2 diabetes mellitus with [...] Capsule 0 04/20/2023 Active OneTouch Delica Plus [id number] :Type 2 diabetes mellitus with hemoglobin A1c goal of less than 7.5% ([facility]) Use as directed. Use to test blood sugar once a day DX e11.9 100 Each 3 04/26/2023 Active OneTouch Verio In Vitro Strip (Glucose Blood)Indications:Ty pe 2 diabetes mellitus with hemoglobin A1c goal of less than 7.5% ([facility]) Use to test blood sugar [...] as of this encounter (statuses as of 04/27/2023) Active Problems Problem Noted Date Diagnosed Date [...] as of this encounter (statuses as of 04/27/2023) Resolved Problems Problem Noted Date Diagnosed Date [...] as of this encounter (statuses as of 04/27/2023) Immunizations Name Administration Dates Next Due COVID-19 [...] encounter Miscellaneous Notes * Telephone Encounter - Liliane Lobato DO - 04/27/2023 1:46 PM EST They did not make mention of this at her appointment yesterday. Agree with ER. * Telephone Encounter - Ramona Medina LPN - 04/27/2023 10:34 AM EST HH Concerns Jacqueline RN, Calling from: Liv Report/Concerns of: Fall Symptoms: See below Narrative: Patients son called [facility], spoke with Jacqueline and requested a nurse come outand see patient today. He reported that patient had a fall yesterday, prior to her appt with Dr. Lobato at the office but they did not report it to Dr. Lobato. Son reported that he found patient on thefloor yesterday and she did not know how long she had been laying there. He did not think that she had any injuries but now today patient is not able to move at all. Jacqueline advised Son that patient needs to go to the ER for evaluation. Patient is going to [facility] now. Call back Jacqueline with any advice or orders at [phone] Please fax new orders to [phone] documented in this encounter Plan of Treatment Upcoming Encounters Date Type Department Care Team (Late st Contact Info) Description 05/03/2023 11:10 AM EST Office Visit Family Medicine [address] [place] [phone] Liliane Lobato [address] [place] [address] 06/05/2023 2:00 PM EDT Office Visit Gastroenterology, [facility] [address] [facility] [place] [address] Jen Salgado CRNP [address] [place] [address] 07/04/2023 11:30 AM EDT Office Visit Family Medicine [address] [place] [phone] Liliane Lobato [address] [place] [address] 07/27/2023 1:30 PM EDT Office Visit Cardiology [address] [place] [phone] Cameron Becerra PA-C [address] [place] [address] 12/05/2023 2:30 PM EDT Office Visit Nephrology [address] [place] [address] Radha Wyman PA-C [address] [place] [address] Health Maintenance Due Date Last Done Comments Hepatitis B (1 of 3 - Risk 3-dose series) 1995 Depression Screening 08/03/2021 08/03/2020 Diabetic Foot Exam 02/08/2023 02/08/2022, 0 05/28/2020, 05/17/2019, Additional history exists Diabetic Eye Exam 03/15/2023 03/15/2022, , 11/03/2020, Additional history exists HbA1c 10/13/2023 04/14/2023, 11/2022, 11/16/2022, Additional history exists Albumin/Creatinine Ratio 11/17/2023 023, 03/29/2022, 01/06/2021, Additional history exists CKD PHOS USE SMARTSET 81614 03/22/202403/13, 01/19/2023, 11/21/2022, Additional history exists CKD HGB USE SMARTSET 33128 04/26/202404/26, 04/26/2023, 04/17/2023, Additional history exists DXA Scan 12/09/2027 12/08/2020, [...] filedocumented as of this encounter Care Teams Biochemistry Specialist Relationship Specialty Start Date End Date Priyanka Falcon MD [address] [place] [address] [place] [address] PCP - General Family Medicine 01/04/19 documented as of this encounter
--- NOTE | 2023-04-28 11:38 | Orthopedic Consultation ---
Date of Service April 28, 2023 Assessment & Plan (1) Knee effusion, left: She has advanced left knee DJD. No xray of the right yet at this time. The left knee is her primary complaint. Will plan on aspirating the left knee today. addendum: She was seen and examined today by Dr. Brandt as well. I did aspirate 60 ml's of blood from her knee. She has a left knee hemarthrosis, possible occult fracture. Recommend weight bear as tolerated with her walker, start PT/OT and see how she is able to ambulate since the knee has been aspirated. Procedure note: Left knee was sterilely prepped with alcohol and using aseptic technique 60ml of blood was aspirated from the knee. She tolerated the procedure well. No complications. (2) Hemarthrosis, left knee: History of Present Illness Reason for Consultation: . Requesting Physician: . Attending Physician: Myrna Lynn MD .Cristine is a 87 year old patient admitted yesterday to the hospitalist service. History obtained from the patient and the H and P. She apparently fell 2 days ago. She said she was previously seeing someone for some knee pain but could not recall who. She has increased knee pain since the fall 2 days ago, left worse than right. Denies hip pain. Allergies Allergy/AdvReac Type Severity Reaction Status Date / Time tramadol Allergy Severe HALLUCINATIONS-PER Verified 04/27/23 17:02 GMG bacitracin Allergy Mild CAUSED EYE Verified 04/27/23 17:02 PROBLEMS neomycin Allergy Mild Rash Verified 04/27/23 17:02 polymyxin B Allergy Mild CAUSED EYE Verified 04/27/23 17:02 PROBLEMS Aminoglycosides Allergy Unknown Unknown Verified 04/27/23 17:02 aspirin AdvReac Severe HX OF GI Verified 04/27/23 17:02 BLEED ibuprofen AdvReac Severe HX OF GI Verified 04/27/23 17:02 BLEED naproxen [From Aleve] AdvReac Severe HX OF GI Verified 04/27/23 17:02 BLEED NSAIDS (Non-Steroidal AdvReac Severe HX OF GI Verified 04/27/23 17:02 Anti-Inflamma BLEED doxycycline AdvReac Intermediate HALLUCINATI Verified 04/27/23 17:02 ONS nitrofurantoin AdvReac Intermediate HEADACHES Verified 04/27/23 17:02 [From Macrobid] Sulfa (Sulfonamide AdvReac Intermediate NAUSEA, Verified 04/27/23 17:02 Antibiotics) VOMITING, BAD HEADACHE triamterene AdvReac Intermediate ULCERS Verified 04/27/23 17:02 Home Medications Medication Instructions Recorded Confirmed Type cholecalciferol (vitamin D3) 25 1,000 unit PO DAILY 12/29/18 04/27/23 History mcg (1,000 unit) capsule (Vitamin D3) cyanocobalamin (vitamin B-12) 1,000 mcg PO DAILY 12/29/18 04/27/23 History 1,000 mcg tablet (Vitamin B-12) glipizide 2.5 mg tablet, extended 2.5 mg PO DAILY 12/29/18 04/27/23 History release 24 hr (Glucotrol XL) lorazepam 0.5 mg tablet (Ativan) 0.5 mg PO HS Anxiety 12/29/18 04/27/23 History metoprolol succinate 100 mg 100 mg PO QAM 12/29/18 04/27/23 History tablet,extended release 24 hr (Toprol XL) triamcinolone acetonide 0.1 % 1 applic topical BID PRN Itching 12/29/18 04/27/23 History topical cream (Triderm) amlodipine 2.5 mg tablet 2.5 mg PO QAM 02/20/23 04/27/23 History atorvastatin 80 mg tablet 80 mg PO QAM 02/20/23 04/27/23 History docusate sodium 100 mg capsule 100 mg PO BID PRN Constipation 02/20/23 04/27/23 History metformin 500 mg tablet 500 mg PO BIDM 02/20/23 04/27/23 History metoprolol succinate 100 mg 50 mg PO QPM 03/09/23 04/27/23 History tablet,extended release 24 hr ferrous sulfate 325 mg (65 mg 325 mg PO BIDM #60 tabs 03/11/23 04/27/23 Rx iron) tablet,delayed release lorazepam 0.5 mg tablet 0.5 mg PO DAILY PRN Anxiety 03/27/23 04/27/23 History pantoprazole 40 mg tablet,delayed 40 mg PO DAILY 03/27/23 04/27/23 History release polyethylene glycol 3350 17 gram 17 g PO DAILY PRN Constipation 03/27/23 04/27/23 History oral powder packet (Miralax) food supplemt, lactose-reduced 1 ea PO DAILY 04/27/23 04/27/23 History furosemide 40 mg tablet (Lasix) 40 mg PO 3XWK 04/27/23 04/27/23 History hydrocodone 5 mg-acetaminophen 325 1 tab PO BID PRN Pain 04/27/23 04/27/23 History mg tablet lisinopril 10 mg tablet 10 mg PO QAM 04/27/23 04/27/23 History magnesium chloride 64 mg 64 mg PO QPM 04/27/23 04/27/23 History (magnesium chloride) tablet,delayed release (Mag 64) magnesium chloride 64 mg 128 mg PO QAM 04/27/23 04/27/23 History (magnesium chloride) tablet,delayed release (Mag 64) potassium chloride 20 mEq 20 meq PO QAM 04/27/23 04/27/23 History tablet,extended release Past Med/Surg History Medical History Knee effusion, left Atrial fibrillation with RVR Persistent atrial fibrillation Nonsustained ventricular tachycardia Paroxysmal SVT (supraventricular tachycardia) Paroxysmal atrial tachycardia Tricuspid regurgitation Mitral regurgitation Chronic diastolic CHF (congestive heart failure) CKD (chronic kidney disease) stage 3, GFR 30-59 ml/min Diabetes mellitus type 2 in obese History of breast cancer Hyperlipidemia Hypertension Surgical History History of partial mastectomy of left breast History of appendectomy H/O bilateral oophorectomy S/P JAYNE (total abdominal hysterectomy) Bilateral cataracts Family History Other No significant family history Social History Smoking Status: Never smoker Hx Alcohol Use: Yes Alcohol type: wine Hx Substance Use: No Preferred Language: Estonian Communication Ability: Effective Cotton Chopper Required: No Beliefs That Will Affect Care: None Current Living Situation: Alone Current Living Situation Comment: home alone, daughter in visiting from [place]. Son lives close by. current occupational status: retired Feels Safe at Home: Yes Safety Concerns: Feels Safe At This Time Assistive Devices: Walker Assistive Devices Comment: upper/lower dentures with patient Review of Systems All systems reviewed & are unremarkable except as noted in HPI & below. Physical Exam . alert, NAD. Bilateral knee/lower extremity: no effusion of the right knee. Large left knee effusion. Good straight leg raise on the right, unable to do straight leg raise with left leg. No pain in the hip with gentle hip motion. She has generalized tenderness around the left knee. Skin intact. We did aspirate her left knee and got 60ml of blood out. After aspiration she was able to lift her leg and extend her knee better. She does have some stiffness. Results & Data Results & Data Laboratory Results . Diagnostic Findings . xrays of left knee show advanced knee DJD. No fractures. PG Care Time/CCT Total # of Minutes Spent Total Time Spent with Patient: Total time spent is greater than 50% in coordination of care (as documented) at patient's floor/unit and/or counseling patient: Coding Level of Care Code 06584 IN/OBS CONSULT LVL 4,60M Diagnoses Knee effusion, left M25.462 Hemarthrosis, left knee M25.062
[2023-04-28] MEDS: ACETAMINOPHEN 325 MG TAB PO PRN (14:59)
[2023-04-28] MEDS: LANTUS PER UNIT CHARGE SQ SCH (21:36)
[2023-04-29 08:46] LABS: Hematocrit (blood only) 28.8 % (37.0-47.0); Mean Corpuscular Hemoglobin 29.5 pg (25.0-34.0); Mean Corpuscular Hgb Conc 31.3 g/dL (32.0-36.0); Mean Corpuscular Volume 94.4 fL (80.0-100.0); Mean Platelet Volume 10.9 fL (9.4-12.4); Platelet Count 251 K/uL (130-400); RDW Standard Deviation 59.1 fL (36.4-46.3); Red Blood Count 3.05 M/uL (4.20-5.40); White Blood Count 7.48 K/ul (4.8-10.8)
[2023-04-29 08:47] LABS: BUN Creatinine Ratio 25.2 (10-20); Calcium 8.2 mg/dl (8.6-10.3); Creatinine Clr Calc Pharmacy 28.7 ml/min; Est GFR (African American) 53.7 ml/min; Est GFR (Non-African American) 46.3 ml/min; Magnesium 1.7 mg/dl (1.7-2.4); Phosphorus 3.4 mg/dl (2.5-4.9); Potassium 3.9 mmol/L (3.5-5.1)
--- NOTE | 2023-04-29 12:13 | Hospitalist Progress Note ---
Date of Service April 29, 2023 Assessment & Plan (1) Atrial fibrillation with RVR: (2) Fall: (3) Knee effusion, left: (4) Hypertension: (5) Diabetes mellitus type 2 in obese: (6) Hyperlipidemia: Plan 87 year old female presented to the ED after a fall she had the previous day. This was associated with worsened pain in her left leg and knee where she fell. Recent hospitalizations for GIB. No longer on anticoagulation for Afib due to GI bleed risk PMH includes: HTN, AF, CHF, DM2, HLD. She uses a walker at baseline. Knee x-ray indicates left joint effusion. Chest x-ray negative for acute cardiopulmonary disease. Abdomen/pelvis CT suggestive of acute cholecystitis. Gall bladder USS noted distended GB without gall stones or signs of cholecystitis Chest CTA negative for PE, head CT and cervical spine CT negative for ICH, subdural hematoma, masses or midline shift. A-fib with RVR: Has known A-fib but beta-tam was held following instruction by outpatient provider to hold until Monday due to hypotension Systolic blood pressure 150 in ED Heart rate ranging 130-140 Takes metoprolol 100 mg every morning and 50 mg every afternoon Continue home metoprolol Currently rate controlled 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 discontinued in February due to increased risk with GI bleed; discussed with son who is comfortable without anticoagulation Fall: Left knee hemarthrosis Fell while walking in the hallway. No LOC and did not hit head Left hip painful on exam and with movement; No fracture noted on Hip CT Left knee x-ray performed with left joint effusion Ortho evaluation noted Had 60ml of blood aspirated from knee. Hence Left knee hemarthrosis Continue pain meds PT/OT eval noted. Rehab recommended Generalized abdominal pain: There was report about abd per H/P that had resolved on presentation Patient denies that now Abdominal pelvis CT indicates possible acute cholecystitis Gallbladder ultrasound did not show cholecystitis. Abd exam is benign No leukocytosis Monitor Hypertension: Chronic Was on amlodipine and lisinopril at home. Amlodipine was held on admission Considering report of hypotension and also hypotension recorded on presentation, home lisinopril was reduced to 5mg daily on 02/26/24 Based on BP trends with some SBP in 90s, will stop lisinopril as well and monitor Diabetes mellitus type 2: Chronic Takes metformin and glipizide; hold while inpatient and placed on [facility] Glycemic pharmacy on board for insulin management HLD: Continue atorvastatin GERD: Continue pantoprazole Disposition: PCP: Liliane Lobato PA-C CODE STATUS: DNR/DNI VTE prophylaxis: teds and SCDs for now I spent a total of 45 minutes coordinating, documenting and providing care for this patient excluding time spent in performance of separately billed services Admission and Anticipated Discharge Date Admission Date: April 27, 2023 Subjective Patient seen and examined She is Alert and oriented to person and place only Reports knee pain is improved after procedure yesterday. Reports some pain with movement Reports chronic ankle pains Denied any other problem in ROS Physical Exam Constitutional: + well hydrated; no acute distress Eyes: PERRL, conjunctivae normal, anicteric sclerae ENMT: external ear and nose normal, oropharynx normal Respiratory: normal respiratory effort, lungs clear to auscultation Cardiovascular: Rate/Rhythm: + irregularly irregular S1 S2 Gastrointestinal (Abdomen): normal bowel sounds, soft, nontender, no hepatosplenomegaly Musculoskeletal: Left knee effusion No tenderness Neurologic: PERRL, EOMI, accommodation nl, no face palsy, no dysarthria Psychiatric: Orientation: alert, oriented to person, oriented to place and cooperative; + not oriented to time Results & Data Results & Data Vital Signs (Past 12 Hours) Vital Signs Temp Pulse Pulse Resp BP Pulse Ox O2 Del Method 04/29/23 07:51 97 H 04/29/23 07:16 36.4 C 95 H 17 111/68 97 Room Air Laboratory Results Abnormal lab results 04/28/23 04/28/23 04/29/23 Range/Units 17:17 21:17 08:00 RBC 3.05 L (4.20-5.40) M/uL Hgb 9.0 L (12.0-16.0) g/dl Hct 28.8 L (37.0-47.0) % MCHC 31.3 L (32.0-36.0) g/dL RDW Std Deviation 59.1 H (36.4-46.3) fL RDW Coeff of Jareth 17.0 H (11.5-14.5) % Sodium 135 L (136-145) mmol/L BUN 27 H (6-23) mg/dl BUN/Creatinine Ratio 25.2 H (10-20) Glucose 101 H (70-99(Fasting)) mg/dl POC Glucose 162 H 110 H (70-99) mg/dl Calcium 8.2 L (8.6-10.3) mg/dl 04/29/23 Range/Units 08:07 RBC (4.20-5.40) M/uL Hgb (12.0-16.0) g/dl Hct (37.0-47.0) % MCHC (32.0-36.0) g/dL RDW Std Deviation (36.4-46.3) fL RDW Coeff of Jareth (11.5-14.5) % Sodium (136-145) mmol/L BUN (6-23) mg/dl BUN/Creatinine Ratio (10-20) Glucose (70-99(Fasting)) mg/dl POC Glucose 113 H (70-99) mg/dl Calcium (8.6-10.3) mg/dl (2) Fall Encounter type: initial encounter Qualified Code(s): W19.XXXA - Unspecified fall, initial encounter
[2023-04-30 06:52] LABS: Hematocrit (blood only) 26.8 % (37.0-47.0); Hemoglobin 8.8 g/dl (12.0-16.0); Mean Corpuscular Hemoglobin 30.3 pg (25.0-34.0); Mean Corpuscular Hgb Conc 32.8 g/dL (32.0-36.0); Mean Corpuscular Volume 92.4 fL (80.0-100.0); Mean Platelet Volume 10.9 fL (9.4-12.4); Platelet Count 262 K/uL (130-400); RDW Coefficient of Variation 16.7 % (11.5-14.5); White Blood Count 6.64 K/ul (4.8-10.8)
[2023-04-30 07:07] LABS: BUN Creatinine Ratio 26.1 (10-20); Creatinine Clr Calc Pharmacy 27.7 ml/min; Est GFR (African American) 51.3 ml/min; Est GFR (Non-African American) 44.3 ml/min; Magnesium 1.7 mg/dl (1.7-2.4); Potassium 3.6 mmol/L (3.5-5.1)
--- NOTE | 2023-04-30 08:05 | Surgery Progress Note ---
Date of Service April 30, 2023 Assessment & Plan (1) Hemarthrosis, left knee: Plan: 87-year-old female with multiple medical comorbidities admitted status post a fall with some confusion/dementia and knee effusion with underlying severe knee arthritis. She is much better after the aspiration. There is no clinical signs of fracture. She does have advanced knee arthritis. Her extensor mechanism is intact. Plan: From an orthopedic standpoint we will continue to treat her symptomatically. With this hemarthrosis would just let this calm down. She is doing much better. She can weight-bear as tolerated. She can follow-up in the clinic as needed. Any other orthopedic questions can be directed at [phone] she can weight-bear as tolerated. There is no orthopedic restrictions. (2) Knee effusion, left: Admission and Anticipated Discharge Date Admission Date: April 27, 2023 Subjective 87-year-old female admitted status post a fall with a left knee effusion. She is doing much better since aspiration. Denies much in the way knee pain this morning. Physical Exam Physical Exam: Physical examination reveals a frail elderly female. As she is sitting at the bedside commode. Continues to be a bit confused. Examination left knee reveals a small 2 at best moderate sized knee effusion. She can do a straight leg raise. Her extensor mechanism is intact. Minimal tenderness to palpation. Results & Data Vital Signs (Past 12 Hours) Vital Signs Temp Pulse Pulse Resp BP Pulse Ox O2 Del Method 04/30/23 07:00 89 04/30/23 02:58 37 C 91 H 18 109/52 L 98 Room Air 04/29/23 22:57 36.6 C 89 18 91/52 L 96 Room Air 04/29/23 20:16 36.6 C 86 16 108/63 98 Room Air PG Care Time/CCT Total # of Minutes Spent Total Time Spent with Patient: Total time spent is greater than 50% in coordination of care (as documented) at patient's floor/unit and/or counseling patient: Coding Level of Care Code 45982 SUB INP/OBS CARE 2/35MIN Diagnoses Hemarthrosis, left knee M25.062 Knee effusion, left M25.462
--- NOTE | 2023-04-30 13:59 | Hospitalist Progress Note ---
Date of Service April 30, 2023 Assessment & Plan (1) Atrial fibrillation with RVR: (2) Fall: (3) Knee effusion, left: (4) Hypertension: (5) Diabetes mellitus type 2 in obese: (6) Hyperlipidemia: Plan 87 year old female presented to the ED after a fall she had the previous day. This was associated with worsened pain in her left leg and knee where she fell. Recent hospitalizations for GIB. No longer on anticoagulation for Afib due to GI bleed risk PMH includes: HTN, AF, CHF, DM2, HLD. She uses a walker at baseline. Knee x-ray indicates left joint effusion. Chest x-ray negative for acute cardiopulmonary disease. Abdomen/pelvis CT suggestive of acute cholecystitis. Gall bladder USS noted distended GB without gall stones or signs of cholecystitis Chest CTA negative for PE, head CT and cervical spine CT negative for ICH, subdural hematoma, masses or midline shift. A-fib with RVR: Has known A-fib but beta-tam was held following instruction by outpatient provider to hold until Monday due to hypotension Systolic blood pressure 150 in ED Heart rate ranging 130-140 Takes metoprolol 100 mg every morning and 50 mg every afternoon Continue home metoprolol Currently rate controlled 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 discontinued in February due to increased risk with GI bleed; discussed with son who is comfortable without anticoagulation Fall: Left knee hemarthrosis Fell while walking in the hallway. No LOC and did not hit head Left hip painful on exam and with movement; No fracture noted on Hip CT Left knee x-ray performed with left joint effusion Ortho evaluation noted Had 60ml of blood aspirated from knee. Hence Left knee hemarthrosis Continue pain meds PT/OT eval noted. Rehab recommended Generalized abdominal pain: There was report about abd per H/P that had resolved on presentation Patient denies that now Abdominal pelvis CT indicates possible acute cholecystitis Gallbladder ultrasound did not show cholecystitis. Abd exam is benign No leukocytosis Monitor Hypertension: Chronic Was on amlodipine and lisinopril at home. Reported hypotension at home Based on BP trends inpatient, amlodipine and lisinopril have been discontinued and likely so going forward Diabetes mellitus type 2: Chronic Takes metformin and glipizide; hold while inpatient and placed on [facility] Glycemic pharmacy on board for insulin management HLD: Continue atorvastatin GERD: Continue pantoprazole Disposition: PCP: Liliane Lobato PA-C CODE STATUS: DNR/DNI VTE prophylaxis: teds and SCDs for now Updated daughter at bedside CM to work on placement I spent a total of 45 minutes coordinating, documenting and providing care for this patient excluding time spent in performance of separately billed services Admission and Anticipated Discharge Date Admission Date: April 27, 2023 Subjective Patient seen and examined Reports knee pain is improved since procedure Reports her hemorrhoids flared up earlier but better now Denied any other problem in ROS Physical Exam Constitutional: + well hydrated; no acute distress Eyes: PERRL, conjunctivae normal, anicteric sclerae ENMT: external ear and nose normal, oropharynx normal Respiratory: normal respiratory effort, lungs clear to auscultation Cardiovascular: Rate/Rhythm: + irregularly irregular S1 S2 Gastrointestinal (Abdomen): normal bowel sounds, soft, nontender, no hepatosplenomegaly Musculoskeletal: Left knee effusion Minimal tenderness Neurologic: PERRL, EOMI, accommodation nl, no face palsy, no dysarthria Psychiatric: Orientation: alert, oriented to person, oriented to place and cooperative; + not oriented to time Occasionally confused Results & Data Results & Data Vital Signs (Past 12 Hours) Vital Signs Temp Pulse Pulse Resp BP Pulse Ox O2 Del Method 04/30/23 11:33 36.8 C 95 H 16 115/62 98 Room Air 04/30/23 08:08 36.6 C 91 H 17 122/67 97 Room Air 04/30/23 07:00 89 04/30/23 02:58 37 C 91 H 18 109/52 L 98 Room Air Laboratory Results Abnormal lab results 04/29/23 04/29/23 04/30/23 Range/Units 17:23 20:05 06:04 RBC 2.90 L (4.20-5.40) M/uL Hgb 8.8 L (12.0-16.0) g/dl Hct 26.8 L (37.0-47.0) % RDW Std Deviation 57.0 H (36.4-46.3) fL RDW Coeff of Jareth 16.7 H (11.5-14.5) % BUN 29 H (6-23) mg/dl BUN/Creatinine Ratio 26.1 H (10-20) POC Glucose 148 H 190 H (70-99) mg/dl Calcium 8.0 L (8.6-10.3) mg/dl 04/30/23 04/30/23 Range/Units 08:23 12:33 RBC (4.20-5.40) M/uL Hgb (12.0-16.0) g/dl Hct (37.0-47.0) % RDW Std Deviation (36.4-46.3) fL RDW Coeff of Jareth (11.5-14.5) % BUN (6-23) mg/dl BUN/Creatinine Ratio (10-20) POC Glucose 109 H 165 H (70-99) mg/dl Calcium (8.6-10.3) mg/dl (2) Fall Encounter type: initial encounter Qualified Code(s): W19.XXXA - Unspecified fall, initial encounter
[2023-05-01 08:15] LABS: Hematocrit (blood only) 28.1 % (37.0-47.0); Hemoglobin 8.9 g/dl (12.0-16.0); Mean Corpuscular Hemoglobin 29.6 pg (25.0-34.0); Mean Corpuscular Hgb Conc 31.7 g/dL (32.0-36.0); Mean Corpuscular Volume 93.4 fL (80.0-100.0); Mean Platelet Volume 11.1 fL (9.4-12.4); Platelet Count 266 K/uL (130-400); RDW Coefficient of Variation 15.9 % (11.5-14.5); RDW Standard Deviation 54.8 fL (36.4-46.3); Red Blood Count 3.01 M/uL (4.20-5.40); White Blood Count 5.56 K/ul (4.8-10.8)
[2023-05-01 08:40] LABS: BUN Creatinine Ratio 24.8 (10-20); Calcium 8.1 mg/dl (8.6-10.3); Creatinine Clr Calc Pharmacy 27.2 ml/min; Est GFR (African American) 50.3 ml/min; Est GFR (Non-African American) 43.4 ml/min; Magnesium 1.8 mg/dl (1.7-2.4); Phosphorus 2.8 mg/dl (2.5-4.9); Potassium 3.8 mmol/L (3.5-5.1)
--- NOTE | 2023-05-01 11:03 | Hospitalist Progress Note ---
Date of Service May 01, 2023 Assessment & Plan (1) Atrial fibrillation with RVR: (2) Fall: (3) Knee effusion, left: (4) Hypertension: (5) Diabetes mellitus type 2 in obese: (6) Hyperlipidemia: Plan 87 year old female presented to the ED after a fall she had the previous day. This was associated with worsened pain in her left leg and knee where she fell. Recent hospitalizations for GIB. No longer on anticoagulation for Afib due to GI bleed risk PMH includes: HTN, AF, CHF, DM2, HLD. She uses a walker at baseline. Knee x-ray indicates left joint effusion. Chest x-ray negative for acute cardiopulmonary disease. Abdomen/pelvis CT suggestive of acute cholecystitis. Gall bladder USS noted distended GB without gall stones or signs of cholecystitis Chest CTA negative for PE, head CT and cervical spine CT negative for ICH, subdural hematoma, masses or midline shift. A-fib with RVR: Has known A-fib but beta-tam was held following instruction by outpatient provider to hold until Monday due to hypotension Systolic blood pressure 150 in ED Heart rate ranging 130-140 Takes metoprolol 100 mg every morning and 50 mg every afternoon Continue home metoprolol Currently rate controlled 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 discontinued in February due to increased risk with GI bleed; discussed with son who is comfortable without anticoagulation Fall: Left knee hemarthrosis Fell while walking in the hallway. No LOC and did not hit head Left hip painful on exam and with movement; No fracture noted on Hip CT Left knee x-ray performed with left joint effusion Ortho evaluation noted Had 60ml of blood aspirated from knee. Hence Left knee hemarthrosis Continue pain meds PT/OT eval noted. Rehab recommended Generalized abdominal pain: There was report about abd per H/P that had resolved on presentation Patient denies that now Abdominal pelvis CT indicates possible acute cholecystitis Gallbladder ultrasound did not show cholecystitis. Abd exam is benign No leukocytosis Monitor Hypertension: Hypotension Chronic Was on amlodipine and lisinopril at home. Has hypotensive episodes Based on BP trends inpatient, amlodipine and lisinopril have been discontinued and likely so going forward Diabetes mellitus type 2: Chronic Takes metformin and glipizide; hold while inpatient and placed on [facility] Glycemic pharmacy on board for insulin management HLD: Continue atorvastatin GERD: Continue pantoprazole Disposition: PCP: Liliane Lobato PA-C CODE STATUS: DNR/DNI VTE prophylaxis: teds and SCDs for now Awaiting placement I spent a total of 35 minutes coordinating, documenting and providing care for this patient excluding time spent in performance of separately billed services Admission and Anticipated Discharge Date Admission Date: April 27, 2023 Subjective Patient seen and examined Reports some buttock pain Mild left knee pain only with movement Denied any other problem in ROS Physical Exam Constitutional: + well hydrated; no acute distress Eyes: PERRL, conjunctivae normal, anicteric sclerae ENMT: external ear and nose normal, oropharynx normal Respiratory: normal respiratory effort, lungs clear to auscultation Cardiovascular: Rate/Rhythm: + irregularly irregular S1 S2 Gastrointestinal (Abdomen): normal bowel sounds, soft, nontender, no hepatosplenomegaly Musculoskeletal: Left knee effusion. No tenderness Neurologic: PERRL, EOMI, accommodation nl, no face palsy, no dysarthria Psychiatric: Orientation: alert, oriented to person, oriented to place and cooperative; + not oriented to time Results & Data Results & Data Vital Signs (Past 12 Hours) Vital Signs Temp Pulse Resp BP Pulse Ox O2 Del Method 05/01/23 10:55 36.8 C 93 H 16 120/65 99 Room Air 05/01/23 07:42 36.5 C 64 16 89/52 L 100 Room Air 05/01/23 03:03 36.9 C 90 16 104/59 L 98 Room Air Laboratory Results Abnormal lab results 04/30/23 04/30/23 04/30/23 Range/Units 12:33 17:20 20:25 RBC (4.20-5.40) M/uL Hgb (12.0-16.0) g/dl Hct (37.0-47.0) % MCHC (32.0-36.0) g/dL RDW Std Deviation (36.4-46.3) fL RDW Coeff of Jareth (11.5-14.5) % BUN (6-23) mg/dl BUN/Creatinine Ratio (10-20) Glucose (70-99(Fasting)) mg/dl POC Glucose 165 H 127 H 148 H (70-99) mg/dl Calcium (8.6-10.3) mg/dl 05/01/23 05/01/23 Range/Units 07:09 07:48 RBC 3.01 L (4.20-5.40) M/uL Hgb 8.9 L (12.0-16.0) g/dl Hct 28.1 L (37.0-47.0) % MCHC 31.7 L (32.0-36.0) g/dL RDW Std Deviation 54.8 H (36.4-46.3) fL RDW Coeff of Jareth 15.9 H (11.5-14.5) % BUN 28 H (6-23) mg/dl BUN/Creatinine Ratio 24.8 H (10-20) Glucose 100 H (70-99(Fasting)) mg/dl POC Glucose 122 H (70-99) mg/dl Calcium 8.1 L (8.6-10.3) mg/dl (2) Fall Encounter type: initial encounter Qualified Code(s): W19.XXXA - Unspecified fall, initial encounter
[2023-05-01] MEDS: HYDROCORTISONE ACETATE 25 MG SUPP PR SCH (21:03)
[2023-05-02 06:35] LABS: Hematocrit (blood only) 28.3 % (37.0-47.0); Mean Corpuscular Hemoglobin 29.5 pg (25.0-34.0); Mean Corpuscular Hgb Conc 31.8 g/dL (32.0-36.0); Mean Corpuscular Volume 92.8 fL (80.0-100.0); Mean Platelet Volume 10.7 fL (9.4-12.4); Platelet Count 272 K/uL (130-400); RDW Coefficient of Variation 16.5 % (11.5-14.5); RDW Standard Deviation 56.4 fL (36.4-46.3); Red Blood Count 3.05 M/uL (4.20-5.40); White Blood Count 4.77 K/ul (4.8-10.8)
[2023-05-02 07:09] LABS: BUN Creatinine Ratio 24.5 (10-20); Calcium 8.3 mg/dl (8.6-10.3); Creatinine Clr Calc Pharmacy 31.5 ml/min; Est GFR (African American) 54.3 ml/min; Est GFR (Non-African American) 46.8 ml/min; Magnesium 1.7 mg/dl (1.7-2.4); Phosphorus 2.9 mg/dl (2.5-4.9); Potassium 4.1 mmol/L (3.5-5.1)
--- NOTE | 2023-05-02 08:42 | Pharmacy Report ---
Pharmacy Glycemic Short Note 2 - Date of Service May 02, 2023 - Glycemic Short BSG Results (Last 24 hours): 05/01/23 05/01/23 05/01/23 07:09 11:37 17:52 Glucose 100 H POC Glucose 154 H 126 H 05/01/23 05/02/23 05/02/23 20:30 06:04 08:19 Glucose 152 H POC Glucose 173 H 155 H OUTPATIENT ANTIDIABETIC REGIMEN: * glipizide 2.5 mg daily, metformin 500 mg bidm HbA1c 8.5% 02/2023 ASSESSMENT: 05/02/23: * BSGs have been reasonably well-controlled over past 72 hours, ranging 109-190 mg/dL * Receiving 7 units of insulin/day over past 3 days * Fasting BSG of 155 mg/dL this morning - will increase basal insulin * Do not anticipate any changes to Novolog today 04/28/23: * 87 year old admitted after fall/concerns for afib with RVR/possible GI issues. Type 2 diabetic managed on oral agents at home. BSGs in ~190s on admission, started on low dose basal insulin and novolog. Plan to continue same parameters for now. PLAN FOR INPATIENT GLYCEMIC CONTROL: * Hold outpatient oral diabetes medications * Basal insulin * Lantus 5 units SC daily * Bolus insulin * NovoLog per scale ACHS or Q6hrs while NPO * Goal Range: Low 120 mg/dL - High 160 mg/dL * Correction Factor: 40 mg/dL/unit * Nutritional / Prandial insulin per carb ratio of 1 unit per 14 grams CHO consumed
[2023-05-02] MEDS: LANTUS PER UNIT CHARGE SQ SCH (09:24)
--- NOTE | 2023-05-02 12:28 | Hospitalist Progress Note ---
Date of Service May 02, 2023 Assessment & Plan (1) Atrial fibrillation with RVR: (2) Fall: (3) Knee effusion, left: (4) Hypertension: (5) Diabetes mellitus type 2 in obese: (6) Hyperlipidemia: Plan 87 year old female presented to the ED after a fall she had the previous day. This was associated with worsened pain in her left leg and knee where she fell. Recent hospitalizations for GIB. No longer on anticoagulation for Afib due to GI bleed risk PMH includes: HTN, AF, CHF, DM2, HLD. She uses a walker at baseline. Knee x-ray indicates left joint effusion. Chest x-ray negative for acute cardiopulmonary disease. Abdomen/pelvis CT suggestive of acute cholecystitis. Gall bladder USS noted distended GB without gall stones or signs of cholecystitis Chest CTA negative for PE, head CT and cervical spine CT negative for ICH, subdural hematoma, masses or midline shift. A-fib with RVR: Has known A-fib but beta-tam was held following instruction by outpatient provider to hold until Monday due to hypotension Systolic blood pressure 150 in ED Takes metoprolol 100 mg every morning and 50 mg every afternoon Continue home metoprolol Currently rate controlled 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 discontinued in February due to increased risk with GI bleed; discussed with son who is comfortable without anticoagulation Fall: Left knee hemarthrosis Fell while walking in the hallway. No LOC and did not hit head Left hip painful on exam and with movement; No fracture noted on Hip CT Left knee x-ray performed with left joint effusion Ortho evaluation noted Had 60ml of blood aspirated from knee. Hence Left knee hemarthrosis PT/OT eval noted. Rehab recommended Generalized abdominal pain: There was report about abd per H/P that had resolved on presentation Patient denies that now Abdominal pelvis CT indicates possible acute cholecystitis Gallbladder ultrasound did not show cholecystitis. Abd exam is benign No leukocytosis or other signs of infection Monitor Hypertension: Hypotension Chronic Was on amlodipine and lisinopril at home. Has hypotensive episodes Based on BP trends inpatient, amlodipine and lisinopril have been discontinued going forward Diabetes mellitus type 2: Chronic Takes metformin and glipizide; hold while inpatient and placed on [facility]SI [facility] Glycemic pharmacy on board for insulin management HLD: Continue atorvastatin GERD: Continue pantoprazole Disposition: PCP: Liliane Lobato PA-C CODE STATUS: DNR/DNI VTE prophylaxis: teds and SCDs for now Awaiting placement I spent a total of 35 minutes coordinating, documenting and providing care for this patient excluding time spent in performance of separately billed services Admission and Anticipated Discharge Date Admission Date: April 27, 2023 Subjective Patient seen and examined No new complaints today Reports left knee pain is minimal with movement Denied any other problem in ROS Physical Exam Constitutional: + well hydrated; no acute distress Eyes: PERRL, conjunctivae normal, anicteric sclerae ENMT: external ear and nose normal, oropharynx normal Respiratory: normal respiratory effort, lungs clear to auscultation Cardiovascular: Rate/Rhythm: + irregularly irregular S1 S2 Gastrointestinal (Abdomen): normal bowel sounds, soft, nontender, no hepatosplenomegaly Musculoskeletal: Left knee swelling Nontender Neurologic: PERRL, EOMI, accommodation nl, no face palsy, no dysarthria Psychiatric: Orientation: alert, oriented to person, oriented to place and cooperative; + not oriented to time Results & Data Results & Data Vital Signs (Past 12 Hours) Vital Signs Temp Pulse Pulse Resp BP Pulse Ox O2 Del Method 05/02/23 11:40 36.3 C L 95 H 16 94/60 L 92 Room Air 05/02/23 10:56 92 H 05/02/23 07:42 36.4 C 97 H 16 119/61 99 Room Air 05/02/23 03:00 36.4 C L 87 16 115/68 98 Room Air Laboratory Results Abnormal lab results 05/01/23 05/01/23 05/02/23 Range/Units 17:52 20:30 06:04 WBC 4.77 L (4.8-10.8) K/ul RBC 3.05 L (4.20-5.40) M/uL Hgb 9.0 L (12.0-16.0) g/dl Hct 28.3 L (37.0-47.0) % MCHC 31.8 L (32.0-36.0) g/dL RDW Std Deviation 56.4 H (36.4-46.3) fL RDW Coeff of Jareth 16.5 H (11.5-14.5) % BUN 26 H (6-23) mg/dl BUN/Creatinine Ratio 24.5 H (10-20) Glucose 152 H (70-99(Fasting)) mg/dl POC Glucose 126 H 173 H (70-99) mg/dl Calcium 8.3 L (8.6-10.3) mg/dl 05/02/23 05/02/23 Range/Units 08:19 12:01 WBC (4.8-10.8) K/ul RBC (4.20-5.40) M/uL Hgb (12.0-16.0) g/dl Hct (37.0-47.0) % MCHC (32.0-36.0) g/dL RDW Std Deviation (36.4-46.3) fL RDW Coeff of Jareth (11.5-14.5) % BUN (6-23) mg/dl BUN/Creatinine Ratio (10-20) Glucose (70-99(Fasting)) mg/dl POC Glucose 155 H 160 H (70-99) mg/dl Calcium (8.6-10.3) mg/dl (2) Fall Encounter type: initial encounter Qualified Code(s): W19.XXXA - Unspecified fall, initial encounter
--- NOTE | 2023-05-03 13:02 | Hospitalist Progress Note ---
Date of Service May 03, 2023 Assessment & Plan (1) Atrial fibrillation with RVR: (2) Fall: (3) Knee effusion, left: (4) Hypertension: (5) Diabetes mellitus type 2 in obese: (6) Hyperlipidemia: Plan 87 year old female presented to the ED after a fall she had the previous day. This was associated with worsened pain in her left leg and knee where she fell. Recent hospitalizations for GIB. No longer on anticoagulation for Afib due to GI bleed risk. PMH includes: HTN, AF, CHF, DM2, HLD. She uses a walker at baseline. Knee x-ray indicates left joint effusion. Chest x-ray negative for acute cardiopulmonary disease. Abdomen/pelvis CT suggestive of acute cholecystitis. Gall bladder USS noted distended GB without gall stones or signs of cholecystitis Chest CTA negative for PE, head CT and cervical spine CT negative for ICH, subdural hematoma, masses or midline shift. A-fib with RVR: Has known A-fib but beta-tam was held by PCP due to Hypotension prior to admission BP stable while hospitalized Metoprolol resumed: 100 mg QAM and 50 mg QPM 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 discontinued in February due to increased risk with GI bleed; discussed with son who is comfortable without anticoagulation Rate better controlled Fall: Left knee hemarthrosis Fell while walking in the hallway. No LOC and did not hit head as per prior provider Left hip painful on exam and with movement No fracture noted on Hip CT Left knee x-ray performed with left joint effusion Appreciate orthopedics help Had 60ml of blood aspirated from knee. Hence Left knee hemarthrosis PT/OT eval noted. Rehab recommended Clinically improved Advised to follow-up with orthopedics on discharge Generalized abdominal pain: There was report about abd per H/P that had resolved on presentation Patient denies that now Abdominal pelvis CT indicates possible acute cholecystitis Gallbladder ultrasound did not show cholecystitis. Abd exam is benign No leukocytosis or other signs of infection Monitor No recurrence of abdominal pain while hospitalization Hypertension: Hypotension Chronic Amlodipine, lisinopril held Has hypotensive episodes Metoprolol continued with holding parameters Diabetes mellitus type 2: Chronic Takes metformin and glipizide; hold while inpatient and placed on SSI [facility] Glycemic pharmacy on board for insulin management HLD: Continue atorvastatin GERD: Continue pantoprazole Disposition: SNF PCP: Liilane Lobato PA-C CODE STATUS: DNR/DNI VTE prophylaxis: Teds and SCDs Admission and Anticipated Discharge Date Admission Date: April 27, 2023 Subjective Patient is seen and examined at bedside Left knee pain much improved Offers no new complaints Denies any chest pain, dyspnea, dizziness, nausea, vomiting, abdominal pain Plan to be discharged to rehab facility today Review of Systems Review of Systems: All systems reviewed & are unremarkable except as noted in Subjective Physical Exam Physical Exam: Physical Exam: Vitals signs as noted above General Appearance: Elderly, thin, frail, no apparent distress Head: normocephalic, Atraumatic Eyes: normal inspection, EOMI Neck: supple, Trachea midline Respiratory/Chest: Normal breath sounds, CTA, No accessory muscle use Cardiovascular: Irregularly irregular, No murmur Abdomen/GI:Soft, Non tender, protuberant, bowel sounds present Extremities/Musculoskeletal:normal inspection, no edema, left knee swelling Neurologic/Psych:AAOX2, grossly no focal neurological deficits Skin: normal color, warm Results & Data Results & Data Vital Signs (Past 12 Hours) Vital Signs Temp Pulse Pulse Resp BP BP Pulse Ox 05/03/23 12:04 36.6 C 97 H 14 116/60 98 05/03/23 08:22 36.4 C L 106 H 14 130/66 97 05/03/23 02:39 36.5 C 84 17 144/74 H 97 O2 Del Method 05/03/23 12:04 Room Air 05/03/23 08:22 Room Air 05/03/23 02:39 Room Air (2) Fall Encounter type: initial encounter Qualified Code(s): W19.XXXA - Unspecified fall, initial encounter
--- NOTE | 2023-05-03 13:18 | Surgery Progress Note ---
Date of Service May 03, 2023 Assessment & Plan (1) Hemarthrosis, left knee: Plan: 87-year-old female status post a fall with a left knee hemarthrosis status post aspiration. She is doing much better. She certainly could have an occult fracture but her knee is functional and relatively pain-free. The treatment is symptomatic at this point. Plan we recommend she just continue to progress activities as tolerated. Use pain as a guide. She can fully weight-bear as tolerated. Organ to sign off for now. For any other orthopedic issues or concerns he can contact me at [phone] Admission and Anticipated Discharge Date Admission Date: April 27, 2023 Subjective 87-year-old female with multiple medical comorbidities as status post a recent fall and left knee hemarthrosis. We aspirated her knee several days ago. She is doing much better. Really reports minimal if any pain. The much more comfortable. Physical Exam Physical Exam: Physical examination was a pleasant elderly female. She is sitting up at bedside eating her lunch. Examination of the left knee reveals moderate-sized knee effusion. She has a good straight leg raise. Range of motion 0 to about 105. No particular pain. No gross instability. She is neurologically intact. Results & Data Vital Signs (Past 12 Hours) Vital Signs Temp Pulse Pulse Resp BP BP Pulse Ox 05/03/23 12:04 36.6 C 97 H 14 116/60 98 05/03/23 08:22 36.4 C L 106 H 14 130/66 97 05/03/23 02:39 36.5 C 84 17 144/74 H 97 O2 Del Method 05/03/23 12:04 Room Air 05/03/23 08:22 Room Air 05/03/23 02:39 Room Air PG Care Time/CCT Total # of Minutes Spent Total Time Spent with Patient: Total time spent is greater than 50% in coordination of care (as documented) at patient's floor/unit and/or counseling patient: Coding Level of Care Code 46433 SUB INP/OBS CARE 235MIN Diagnoses Hemarthrosis, left knee M25.062
--- NOTE | 2023-05-03 17:26 | Discharge Summary ---
Date of Service May 03, 2023 Admission HPI Per Admitting Provider Ms. Benitez is an 87 year old female presented to the ED today after a fall she had yesterday. Yesterday, Ms. Benitez was walking in her hallway in the morning and fell. Her son picked her up and placed her on her walker. Pain had worsened in her left leg and knee where she fell. She went to her PCP appt for evaluation after being at [facility] for rehabilitation. She has had a few recent inpatient hospitalizations for GIB. She had two episodes of emesis last night. Yesterday her blood pressure was SBP 90 and was informed to stop taking diuretics and beta blockers until Monday. The last time she took her Metoprolol was yesterday. She has not taken any of her medications today. Complex PMH that includes: HTN, AF, CHF, DM2, HLD. She uses a walker at baseline. Patient with recent admission for GI bleed. Hemoglobin today stable 10.0 baseline 8-9. No longer taking anticoagulation for A-fib due to GI bleed risk versus benefit. She did not hit her head when she passed out and did not have LOC or dizziness. No leukocytosis, otherwise electrolytes unremarkable. No leukocytosis, potassium 5.0, otherwise labs unremarkable. Knee x-ray indicates left joint effusion. Chest x-ray negative for acute cardiopulmonary disease. Abdomen/pelvis CT suggestive of acute cholecystitis. Chest CTA negative for PE, head CT and cervical spine CT negative for ICH, subdural hematoma, masses or midline shift. Patient denies CARABALLO, dizziness, SOB, chest pain or palpitations, N/V/D, other falls. Patient will be admitted for further management of AF with RVR. Will initiate IV Lopressor and restart Lopressor as prescribed and monitor. Will involve orthopedics for evaluation of the left joint effusion of the knee. Will obtain hip imaging to rule out fracture. Will provide IV Tylenol scheduled and morphine as needed for pain control. Will rule out infective causes A-fib RVR however suspect this is due to beta-tam being held for hypotension. Education provided to family with regards to beta-tam administration for A- fib. Patient be admitted for further evaluation and management. Please see A/P for further details. Admission Exam Per Admitting Provider Physical Exam: Vitals signs as noted above General Appearance: Elderly, thin, frail, no apparent distress Head: normocephalic, Atraumatic Eyes: normal inspection, EOMI Neck: supple, Trachea midline Respiratory/Chest: Normal breath sounds, CTA, No accessory muscle use Cardiovascular: Irregularly irregular, tachycardic, No murmur Abdomen/GI:Soft, Non tender, protuberant, bowel sounds present Extremities/Musculoskeletal:normal inspection, no edema, left hip, left knee tender, decreased range of movement Neurologic/Psych:AAOX3, grossly no focal neurological deficits Skin: normal color, warm Principal Diagnosis Atrial fibrillation with RVR Left knee hemarthrosis Fall Hypotension Discharge Data Allergies Allergy/AdvReac Type Severity Reaction Status Date / Time tramadol Allergy Severe HALLUCINATIONS-PER Verified 04/27/23 17:02 GMG bacitracin Allergy Mild CAUSED EYE Verified 04/27/23 17:02 PROBLEMS neomycin Allergy Mild Rash Verified 04/27/23 17:02 polymyxin B Allergy Mild CAUSED EYE Verified 04/27/23 17:02 PROBLEMS Aminoglycosides Allergy Unknown Unknown Verified 04/27/23 17:02 aspirin AdvReac Severe HX OF GI Verified 04/27/23 17:02 BLEED ibuprofen AdvReac Severe HX OF GI Verified 04/27/23 17:02 BLEED naproxen [From Aleve] AdvReac Severe HX OF GI Verified 04/27/23 17:02 BLEED NSAIDS (Non-Steroidal AdvReac Severe HX OF GI Verified 04/27/23 17:02 Anti-Inflamma BLEED doxycycline AdvReac Intermediate HALLUCINATI Verified 04/27/23 17:02 ONS nitrofurantoin AdvReac Intermediate HEADACHES Verified 04/27/23 17:02 [From Macrobid] Sulfa (Sulfonamide AdvReac Intermediate NAUSEA, Verified 04/27/23 17:02 Antibiotics) VOMITING, BAD HEADACHE triamterene AdvReac Intermediate ULCERS Verified 04/27/23 17:02 Consultations 04/27/23 16:11 ED Decision to Admit Stat 04/27/23 16:54 Consult Orthopedic Surgery Routine Ordered Studies 04/27/23 13:00 CT head/brain wo con Stat 04/27/23 13:02 CT abd pelvis wo con Stat CT cervical spine wo con Stat CT chest diagnostic wo con Stat 04/27/23 16:22 US gallbladder Routine 04/27/23 16:54 CT hip LT wo con Routine Hospital Course (1) Atrial fibrillation with RVR: (2) Fall: (3) Knee effusion, left: (4) Hypertension: (5) Diabetes mellitus type 2 in obese: (6) Hyperlipidemia: Plan 87 year old female presented to the ED after a fall she had the previous day. This was associated with worsened pain in her left leg and knee where she fell. Recent hospitalizations for GIB. No longer on anticoagulation for Afib due to GI bleed risk. PMH includes: HTN, AF, CHF, DM2, HLD. She uses a walker at baseline. Knee x-ray indicates left joint effusion. Chest x-ray negative for acute cardiopulmonary disease. Abdomen/pelvis CT suggestive of acute cholecystitis. Gall bladder USS noted distended GB without gall stones or signs of cholecystitis Chest CTA negative for PE, head CT and cervical spine CT negative for ICH, subdural hematoma, masses or midline shift. A-fib with RVR: Has known A-fib but beta-tam was held by PCP due to Hypotension prior to admission BP stable while hospitalized Metoprolol resumed: 100 mg QAM and 50 mg QPM 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 discontinued in February due to increased risk with GI bleed; discussed with son who is comfortable without anticoagulation Rate better controlled Fall: Left knee hemarthrosis Fell while walking in the hallway. No LOC and did not hit head as per prior provider Left hip painful on exam and with movement No fracture noted on Hip CT Left knee x-ray performed with left joint effusion Appreciate orthopedics help Had 60ml of blood aspirated from knee. Hence Left knee hemarthrosis PT/OT eval noted. Rehab recommended Clinically improved Advised to follow-up with orthopedics on discharge Generalized abdominal pain: There was report about abd per H/P that had resolved on presentation Patient denies that now Abdominal pelvis CT indicates possible acute cholecystitis Gallbladder ultrasound did not show cholecystitis. Abd exam is benign No leukocytosis or other signs of infection Monitor No recurrence of abdominal pain while hospitalization Hypertension: Hypotension Chronic Amlodipine, lisinopril held Has hypotensive episodes Metoprolol continued with holding parameters Diabetes mellitus type 2: Chronic Takes metformin and glipizide; hold while inpatient and placed on SSI ACHS Glycemic pharmacy on board for insulin management HLD: Continue atorvastatin GERD: Continue pantoprazole Disposition: SNF PCP: Liliane Lobato PA-C CODE STATUS: DNR/DNI VTE prophylaxis: Teds and SCDs Total Time Total Time Spent Total Time Spent (In Minutes): 56 minutes Discharge Plan Discharge Items Patient Disposition: Transfer [facility] Fac Reason For Visit: FALL Discharge Diagnosis: Atrial fibrillation with RVR Left knee hemarthrosis Fall Hypotension Activity: Per Instructions section Exercise/Sports: Gradually increase as tolerated Non-emergency contact: Primary Care Provider, Surgeon and [employer] Equipment Installer Call non-emergency contact if: you have any medication questions, your symptoms worsen, your pain is concerning for you and you have a fever Follow-up/Referrals: Liliane Lobato DO [Primary Care Provider] - Diet: Carb Consistent or DM2 and Heart Healthy Addtl Attending Provider Instructions: Follow-up with your primary care physician Dr. Lobato in 1 week upon discharge from rehab facility Follow-up with your orthopedic surgeon in 3 to 4 weeks -- Monitor your blood pressure regularly at rehab facility. Discussed with your physician for further adjustment medications as needed. Seek immediate medical attention if your symptoms reoccur or worsen Please take all medications as instructed on discharge list below. Please call if you have any questions or problems. You can reach a [facility] hospitalist on duty at [facility] 24 hours a day by calling [phone] Pending Studies at Discharge: No Stand-Alone Forms: [facility] Skilled Items Patient informed of condition?: Yes DNR: Yes Discharge Level of Care: Skilled Communicable Disease: No Discharge Prognosis: Stable Lines: None Urinary Catheter: No Medications and DC Order Prescriptions: Continued metoprolol succinate [Toprol XL] 100 mg tablet extended release 24 hr 100 mg PO QAM Rx Instructions: TAKES 100 MG QAM, THEN 50 MG QHS. triamcinolone acetonide [Triderm] 0.1 % cream 1 applic topical BID PRN (Reason: Itching) lorazepam [Ativan] 0.5 mg tablet 0.5 mg PO HS glipizide [Glucotrol XL] 2.5 mg tablet extended release 24hr 2.5 mg PO DAILY Rx Instructions: TAKE 30 MINUTES PRIOR TO MEAL cyanocobalamin (vitamin B-12) [Vitamin B-12] 1,000 mcg Tablet 1,000 mcg PO DAILY cholecalciferol (vitamin D3) [Vitamin D3] 1,000 unit Capsule 1,000 unit PO DAILY metformin 500 mg tablet 500 mg PO BIDM atorvastatin 80 mg tablet 80 mg PO QAM docusate sodium 100 mg Capsule 100 mg PO BID PRN (Reason: Constipation) Rx Instructions: IF NEEDED MAY TAKE SECOND DOSE QPM. metoprolol succinate 100 mg tablet extended release 24 hr 50 mg PO QPM ferrous sulfate 325 mg (65 mg iron) Tablet,Delayed Release (Dr/Ec) 325 mg PO BIDM Qty: 60 0RF lorazepam 0.5 mg Tablet 0.5 mg PO DAILY PRN (Reason: Anxiety) polyethylene glycol 3350 [Miralax] 17 gram powder in packet 17 g PO DAILY PRN (Reason: Constipation) pantoprazole 40 mg tablet,delayed release (DR/EC) 40 mg PO DAILY furosemide [Lasix] 40 mg Tablet 40 mg PO 3XWK hydrocodone-acetaminophen 5-325 mg tablet 1 tab PO BID PRN (Reason: Pain) food supplemt, lactose-reduced Liquid 1 ea PO DAILY Mag 64 64 mg tablet,delayed release (DR/EC) 128 mg PO QAM Mag 64 64 mg tablet,delayed release (DR/EC) 64 mg PO QPM potassium chloride 20 mEq tablet extended release 20 meq PO QAM Held amlodipine 2.5 mg tablet 2.5 mg PO QAM Hold Instructions: Until further instructions from primary care physician lisinopril 10 mg tablet 10 mg PO QAM Hold Instructions: Until further instructions from primary care physician Discharge Orders: Discharge Order (Routine); Ordered 05/03/23 Ordered By: Mikey Chew Admission Data Admit Date/Time: 04/27/23 16:17 Attending Provider: Mikey Chew Admit Provider: Mikey Chew Primary Care Provider: Liliane Lobato Other Providers: Mikey Chew; [facility]; [facility] Other Interventions: Discharge Summary Assessment (RN) Last Done: 05/03/23 13:43
== END 2023-05-03 14:00 | DRG 309 ==
LOC: ED 12:27 → SUATTDRO 16:17 → EDINP 16:17 → 2N 20:16
DX: Z88.1 Allergy status to other antibiotic agents; N17.9 Acute kidney failure, unspecified; I50.32 Chronic diastolic (congestive) heart failure; Y92.019 Unspecified place in single-family (private) house as the place of occurrence of the external cause; N18.30 Chronic kidney disease, stage 3 unspecified; M25.062 Hemarthrosis, left knee; W18.30XA Fall on same level, unspecified, initial encounter; K21.9 Gastro-esophageal reflux disease without esophagitis; I13.0 Hypertensive heart and chronic kidney disease with heart failure and stage 1 through stage 4 chronic kidney disease, or unspecified chronic kidney disease; E11.22 Type 2 diabetes mellitus with diabetic chronic kidney disease; E78.5 Hyperlipidemia, unspecified; Z88.2 Allergy status to sulfonamides; Z66 Do not resuscitate; I48.19 Other persistent atrial fibrillation; E66.9 Obesity, unspecified; Z88.6 Allergy status to analgesic agent; Z79.84 Long term (current) use of oral hypoglycemic drugs; R10.84 Generalized abdominal pain; I95.9 Hypotension, unspecified